=== PATIENT | male | born 1935 | race Caucasian/White ===

== ENCOUNTER 2016-09-23 23:10 | Inpatient (IN) | payer MEDICARE, OTHER ==
[~2016-09-23] VITALS: Ht 172.7 cm; Wt 70.5 kg
[2016-09-23] MEDS ORDERED: SOD CHLORIDE 0.9% 500 ML IV STA (23:15)
[2016-09-24] VITALS (52 sets, daily range): BP systolic 77–100; BP diastolic 42–51; PULSE 92–105; RESP 16–30; TEMP 96.3; Ht 172.7 cm; Wt 70.5 kg
[2016-09-24 00:27] LABS: ADD SCAN DIFF NO
[2016-09-24] MEDS ORDERED: SODIUM CHLORIDE 0.9% 1L BAG IV* STA (00:28)
[2016-09-24 00:30] LABS: ABNORMAL IP MESSAGE 1; HEMATOCRIT 35.1 % (42.0-52.0); MEAN CORPUSCULAR HEMOGLOBIN 21.9 pg (29.0-33.0); MEAN CORPUSCULAR HGB CONC 25.6 g/dl (32.0-37.0); MEAN CORPUSCULAR VOLUME 85.4 fl (82.0-101.0); MEAN PLATELET VOLUME 13.6 fl (7.4-10.4); PLATELET COUNT 554 10^3/UL (140-415); RED BLOOD COUNT 4.11 10^6/ul (4.70-6.10); RED CELL DISTRIBUTION WIDTH 19.9 % (11.5-14.5); WHITE BLOOD COUNT 40.6 10^3/ul (4.8-10.8)
[2016-09-24 00:41] LABS: INR 1.62; PROTIME 19.4 Sec (12.2-14.2); PT RATIO 1.5
[2016-09-24 00:42] LABS: ALBUMIN 3.1 g/dl (3.3-4.9); PARTIAL THROMBOPLASTIN TIME 39.8 Sec (25.0-35.0)
[2016-09-24 00:43] LABS: POTASSIUM 4.2 mmol/L (3.5-5.1)
[2016-09-24 00:45] LABS: ALBUMIN/GLOBULIN RATIO 0.96; CREATININE 2.91 mg/dl (0.61-1.24); TOTAL PROTEIN 6.3 g/dl (6.1-8.1)
[2016-09-24 00:57] LABS: TROPONIN-I 0.064 ng/ml (0.00-0.12)
--- NOTE | 2016-09-24 01:02 | RADRPT ---
PROCEDURE: Chest. CLINICAL INDICATION: Chest pain. TECHNIQUE: Single frontal view of the chest was obtained. COMPARISON: None. FINDINGS: The patient is status post tracheostomy. The cardiac silhouette is within normal limits. The aorti c arch is calcified. There are hazy and patchy opacities bilaterally. There are moderate left and small right-sided pleural effusions with underlying atelectasis. There is no pneumothorax. IMPRESSION: Bilateral hazy and patchy opacities could represent pulmonary edema and/or multifocal pneumonia. Moderate left and small right-sided pleural effusions with underlying atelectasis. Aortic atherosclerosis. .Leon Tadeo MD, MD Date Time Electronically viewed and signed by .eLon Tadeo MD, MD on 09/24/2016 01:01 .T/
[2016-09-24] MEDS ORDERED: ONDANSETRON 4 MG INJ IV STA (01:18)
[2016-09-24] MEDS ORDERED: VANCOMYCIN 1 GM (PMX) 250 ML IVPB STA (01:25)
[2016-09-24] MEDS ORDERED: PIPER-TAZO 3.375 GM IV (PMX) 100 ML IVPB STA (01:25)
[2016-09-24 01:39] LABS: EOSINOPHILS # 0.8 10^3/ul (0.0-0.5); LYMPHOCYTES # 2.8 10^3/ul (0.8-2.9); MONOCYTE # 0.4 10^3/ul (0.3-0.9); NEUTROPHIL # 36.5 10^3/ul (1.6-7.5)
[2016-09-24] MEDS ORDERED: NORepinephrine 8MG/250 ML (PMX 250 ML IV STA (02:12)
--- NOTE | 2016-09-24 02:17 | ERA ---
ER Documentation Chief Complaint Date/Time DATE: 09/24/16 TIME: 02:14 Chief Complaint BIBA RA81,low BP 86/40,los O2 sat on vent 86% HPI This is a 81-year-old male brought in from longterm facility by rescue [facility] for low blood pressure. Found to be 60s over 40s with low O2 sat nonvented 86%. Patient is unable to provide any relevant history secondary to baseline medical condition. History is per EMS run sheet long term transfer sheet. ROS All systems reviewed and are negative except as per history of present illness. Allergies Allergies: Coded Allergies: No Known Allergy (Unverified , 09/23/16) PMhx/Soc Anesthesia Reaction: No Hx Neurological Disorder: No Hx Respiratory Disorders: Yes (RES FAILURE, TRACH TO VENT,) Hx Cardiac Disorders: Yes (HTN, AFIB) Hx Miscellaneous Medical Probl: Yes (KIDNEY FAILURE, HYPOTHYROID, ANEMIA, SPESIS, MULTIPLE PRESSURE ULCERS, PEG ) Hx Alcohol Use: No Hx Substance Use: No Hx Tobacco Use: No Smoking Status: Never smoker Physical Exam Vitals Vital Signs Date Time Temp Pulse Resp B/P Pulse Ox O2 Delivery O2 Flow Rate FiO2 09/23/16 23:18 98.6 96 24 68/37 98 Physical Exam Const: [] Head: Atraumatic Eyes: Normal Conjunctiva ENT: Normal External Ears, Nose and Mouth. Neck: Full range of motion..~ No meningismus. Resp: Clear to auscultation bilaterally Cardio: Regular rate and rhythm, no murmurs Abd: Soft, non tender, non distended. Normal bowel sounds Skin: No petechiae or rashes Back: No midline or flank tenderness Ext: No cyanosis, or edema Neur: Awake and alert Psych: Normal Mood and Affect Result Diagram: 09/23/16 2355 09/23/16 2355 Results 24 hrs Laboratory Tests Test 09/23/16 23:55 Activated Partial Thromboplast Time 39.8Sec Alanine Aminotransferase (ALT/SGPT) 54IU/L Albumin 3.1g/dl Albumin/Globulin Ratio 0.96 Alkaline Phosphatase 142IU/L Anion Gap 24 Aspartate Amino Transf (AST/SGOT) 112IU/L B-Type Natriuretic Peptide 7840PG/ML Blood Urea Nitrogen 160mg/dl Calcium Level 9.0mg/dl Carbon Dioxide Level 40mmol/L Chloride Level 105mmol/L Creatinine 2.91mg/dl Differential Comment MANUAL DIFF Direct Bilirubin mg/dl Eosinophils # 0.810^3/ul Eosinophils % 2.0% Globulin 3.20g/dl Glucose Level 104mg/dl Hematocrit 35.1% Hemoglobin 9.0g/dl INR International Normalized Ratio 1.62 Indirect Bilirubin mg/dl Lactic Acid Level 8.7mmol/L Lymphocytes # 2.810^3/ul Lymphocytes % 7.0% Mean Corpuscular Hemoglobin 21.9pg Mean Corpuscular Hemoglobin Concent 25.6g/dl Mean Corpuscular Volume 85.4fl Mean Platelet Volume 13.6fl Monocytes # 0.410^3/ul Monocytes % 1.0% Neutrophils # 36.510^3/ul Neutrophils % 90.0% Platelet Count 13273^3/UL Potassium Level 4.2mmol/L Prothrombin Time 19.4Sec Prothrombin Time Ratio 1.5 Red Blood Count 4.1110^6/ul Red Cell Distribution Width 19.9% Sodium Level 165mmol/L Total Bilirubin mg/dl Total Protein 6.3g/dl Troponin I 0.064ng/ml White Blood Count 40.610^3/ul Current Medications Medications (Trade) Dose Ordered Sig/Vandana Route PRN Reason Start Time Stop Time Status Last Admin Dose Admin Sodium Chloride (NS) 500 ml @ 500 mls/hr Q1H STAT IV 09/23/16 23:15 09/24/16 00:14 DC 09/23/16 23:57 Sodium Chloride (NS) 2,180 ml BOLUS OVER 2 HOURS STAT IV* 09/24/16 00:28 09/24/16 00:29 DC 09/24/16 00:51 Ondansetron HCl 4 mg 4 mg ONCE STAT IV 09/24/16 01:18 09/24/16 01:19 DC 09/24/16 01:31 Vancomycin HCl 250 ml @ 125 mls/hr ONCE STAT IVPB 09/24/16 01:25 09/24/16 03:24 Piperacillin Sod/ Tazobactam Sod (Zosyn 3.375gm/ 100 ml (Pmx)) 100 ml @ 200 mls/hr ONCE STAT IVPB 09/24/16 01:25 09/24/16 01:54 DC 09/24/16 01:37 Procedures/MDM EKG: Rate/Rhythm: [Normal Sinus Rhythm] QRS, ST, T-waves: [No changes consistent w/ acute ischemia] Impression: [No evidence of ischemia or arrhythmia] Chest X-ray 1V Interpreted by me: Soft Tissue: No acute abnormalities Bones: No acute abnormalities Mediastinum/Cardiac Silhouette/Lungs: Multilobar pneumonia Patient's infectious symptoms have not stabilized and the patient is at risk of rapid decompensation. The patient will be admitted for careful hydration, antibiotic therapy, and infectious source control. Severe Sepsis Assessment: Infectious Source: Pneumonia End organ damage indicated by: [Lactate > 2.0 mmol/L Hypotension( SBP < 90 or >40 mmHG drop or MAP < 65) Acute Resp Failure (sat < 92% w/o oxygen) Severe Sepsis Managment: Blood Cultures X 2 before broad spectrum antibiotics initiated within 3 hours of recognition. 30 ml/kg NS bolus Completed Initial Lactate: 8.9 Repeat Lactate pending Critical Care: Time: 57 minutes Treatments/Evaluations: Emergent fluid management, while maintaining close respiratory support. Immediate broad spectrum antibiotic therapy. Simultaneous assessment for possible sources in order to direct therapy. Consideration for invasive and chemical support to prevent respiratory or cardiac collapse. Septic Shock Assessment (1 hour post 30 ml/kg fluid bolus): Hypotension (SBP < 90 or 40 mmHg drop, MAP < 65): Yes Lactic acid > 4.0 yes Perfusion Reassessment for Septic Shock: Patient on Levophed Temp 98.7, Pulse 99, RR 18, BP 104/76 Heart Exam: [Tachycardic] Lung Exam: [No Crackles] Capillary Refill: [Delayed] Peripheral Pulses: [Radially present] Skin: [Mottled, pale] Hypotensive Treatment (not required for isolated lactic acid elevation): Comfort Care: No Central LIne: Left subclavian Vasopressor started: [norepinephrine] Accepting Care Team: Current data and ongoing care discussed. Time: 2:15 AM Primary Provider: Anjum Consulting: Per Dr. Valero Outstanding Data: none Central Line Placement by me: Patient consented, sterilely draped, full prep, gown, glove, mask, time out performed. Anesthesia: 1% lidocaine locally Location: Left subclavian Device: Multiple lumen Technique: Seldinger technique. Secured with suture. Results: Venous return from all ports with easy saline flush. No complications. Guide wire retrieved and disposed of. [Chest X-ray 1V Interpreted by me: Central line in SVC, Normal soft tissue, No evidence of pneumothorax.] Departure Diagnosis: Primary Impression: Hypotension Qualified Code: I95.89 - Other specified hypotension Additional Impressions: Septic shock Severe sepsis Pneumonia Qualified Code: J18.9 - Pneumonia of both lungs due to infectious organism, unspecified part of lung Lactic acidosis Acute hypernatremia Dehydration Condition: Critical MICHAEL FANG Sep 24, 2016 02:17
--- NOTE | 2016-09-24 02:22 | RADRPT ---
PROCEDURE: Chest. CLINICAL INDICATION: Chest pain. TECHNIQUE: Single frontal view of the chest was obtained. COMPARISON: 09/24/2016. FINDINGS: There is a left subclavian central venous catheter extending to the SVC. The patient is status post tracheostomy. The cardiac silhouette is within normal limits. The aortic arch is calcified. There a re hazy and patchy opacities bilaterally. There are moderate left and small right-sided pleural effu sions with underlying atelectasis. There is no pneumothorax. IMPRESSION: Left subclavian central venous catheter in place. Bilateral hazy and patchy opacities could represent pulmonary edema and/or multifocal pneumonia, unc hanged. Moderate left and small right-sided pleural effusions with underlying atelectasis, unchanged. Aortic atherosclerosis. .Leon Tadeo MD, Date Time Electronically viewed and signed by .Leon Tadeo MD, on 09/24/2016 02:22 .T/
[2016-09-24] MEDS ORDERED: SOD CHLORIDE 0.9% 1,000 ML IV SCH (02:59)
[2016-09-24] MEDS ORDERED: SOD CHLORIDE 0.9% 500 ML IV PRN (02:59)
[2016-09-24] MEDS ORDERED: NORepinephrine 8MG/250 ML (PMX 250 ML IV SCH (03:00)
[2016-09-24] MEDS ORDERED: ALBUTEROL HFA 8 GM INHALER INH PRN (03:00)
[2016-09-24] MEDS ORDERED: METOCLOPRAMIDE 10 MG INJ IV PRN (03:00)
[2016-09-24] MEDS ORDERED: ACETAMINOPHEN 650 MG SUPP PR PRN (03:00)
--- NOTE | 2016-09-24 03:00 | HP ---
Date/Time of Note Date/Time of Note DATE: 09/24/16 TIME: 02:59 Assessment/Plan VTE Prophylaxis VTE Prophylaxis Intervention: anti-embolic stocking Lines/Catheters IV Catheter Type (from Nrs): Saline Lock Assessment/Plan Assessment/Plan 1) Severe Sepsis with Lactic Acidosis (Lactic Acid = 8.9)and Leukocytosis ( WBCs = 40), likely due to Pneumonia with Septic Shock as illustrated by his Hypotension (BP = 60/40) - Admit to ICU - Central Line Placed in ER - Levophed Drip started in ER - Blood and Urine Cultures pending - ABX started in ER - CONSULT: Dr. See - notified via text - CBC in AM 2) Hypernatremia, Na+ = 165 - May need to monitor CVP for best fluid and electrolyte management - 1/2 NS for gentle IV hydration - Strict Is and Os. Cee Catheter in Place. - BNP in AM 3) Dehydration, BUN = 160 - See 2) 4) Chronic Respiratory Failure, Ventilator Dependent via Tracheostomy - Full Code as there is no Family or Advanced Directives 5) Elevated BNP (7840) with mild LE edema and CXR possibly showing Pulmonary Edema - Repeat BNP in AM, may need to be diruresed, carefully/difficult due to hypotension 6) Chronic Kidney Disease (Cr = 2.91) - Monitor. May improve with hydration and treatment of sepsis HPI/ROS Admit Date/Time Admit Date/Time 09/24/16 0259 Hx of Present Illness Chief Complaint BIBA RA81,low BP 86/40,los O2 sat on vent 86% HPI: History as per ER Physician as there is no family or other source of information. This is a 81-year-old male brought in from nursing home facility by [facility] for low blood pressure. Found to be 60s over 40s with low O2 sat nonvented 86%. Patient is unable to provide any relevant history secondary to baseline medical condition. History is per EMS run sheet long-term transfer sheet. ROS Subjective hx not possible: pt non-verbal (Unable to obtain any ROS other than the information provided in the brief HPI.) PMH/Family/Social Past Medical History RESPIRATORY FAILURE, VENTILATOR DEPENDENT, HTN, ATRIAL FIBRILLATION, KIDNEY FAILURE, HYPOTHYROIDISM, ANEMIA, SPESIS, MULTIPLE PRESSURE ULCERS, GERD, Encephalopathy, Calculus of Kidney, Unspecified Sequela of Unspecified Cerebrovascular Disease, Pneumonitis, NSTEMI, ASHD, Hyperlipidemia, Non- Rheumatic Mitral Valve Insufficiency Past Surgical History TRACHEOSTOMY to Ventilator; PEG Tube Family History Significant Family History: other (Unknown) Social History Smoking Status: Never smoker Exam/Review of Systems Vital Signs Vitals Vital Signs Date Time Temp Pulse Resp B/P Pulse Ox O2 Delivery O2 Flow Rate FiO2 09/23/16 23:18 98.6 96 24 68/37 98 Exam Constitutional: alert, frail, non-verbal, other (on ventilator via trach) Psych: other (not able to evaluate) Head: atraumatic, normocephalic Eyes: nl sclera, other (not able to cooperate with exam) ENMT: nl external ears & nose, other (patient would not open his mouth with verbal and visual clues) Neck: non-tender (patient did not wince with exam. ), supple (no masses appreciated) Respiratory: diminished breath sounds (and coarse breath sounds throughout, fine crackles in the bases, left more than right) Gastrointestinal: nl liver, spleen, non-tender, soft Extremities: edema (bilateral pedal edema, +1 to lower 1/3 legs bilaterally), other (contracted) Neurological: other (unable to assess.) Skin: other (pale, decreased turgor. Warm, dry. No visible rashes, but I did not turn patient over. (In records from the SNF, multiple pressure ulcers were documented on his admit there on 07/23/16: deep sacral and bilateral buttocks, bilateral hips, 1 ankle and 1 heel) Lymph: nl lymph nodes (Cervical, Axillary, Inguinal) Labs Result Diagram: 09/23/16 4118 09/23/16 2356 Medications Medications Current Medications Norepinephrine/ Dextrose (Levophed/D5W) 500 ml @ 1.87 mls/hr TITRATE IV Last administered on 09/24/16t 02:29; Admin Dose 1.87 MLS/HR; Start 09/24/16 at 02:30 Medications (Trade) Dose Ordered Sig/Vandana Route PRN Reason Start Time Stop Time Status Last Admin Dose Admin Sodium Chloride (NS) 500 ml @ 500 mls/hr Q1H STAT IV 09/23/16 23:15 09/24/16 00:14 DC 09/23/16 23:57 Sodium Chloride (NS) 2,180 ml BOLUS OVER 2 HOURS STAT IV* 09/24/16 00:28 09/24/16 00:29 DC 09/24/16 00:51 Ondansetron HCl 4 mg 4 mg ONCE STAT IV 09/24/16 01:18 09/24/16 01:19 DC 09/24/16 01:31 Vancomycin HCl 250 ml @ 125 mls/hr ONCE STAT IVPB 09/24/16 01:25 09/24/16 03:24 Piperacillin Sod/ Tazobactam Sod (Zosyn 3.375gm/ 100 ml (Pmx)) 100 ml @ 200 mls/hr ONCE STAT IVPB 09/24/16 01:25 09/24/16 01:54 DC 09/24/16 01:37 Procedures Procedures Laboratory Tests Test 09/23/16 23:55 Activated Partial Thromboplast Time 39.8Sec Alanine Aminotransferase (ALT/SGPT) 54IU/L Albumin 3.1g/dl Albumin/Globulin Ratio 0.96 Alkaline Phosphatase 142IU/L Anion Gap 24 Aspartate Amino Transf (AST/SGOT) 112IU/L B-Type Natriuretic Peptide 7840PG/ML Blood Urea Nitrogen 160mg/dl Calcium Level 9.0mg/dl Carbon Dioxide Level 40mmol/L Chloride Level 105mmol/L Creatinine 2.91mg/dl Differential Comment MANUAL DIFF Direct Bilirubin mg/dl Eosinophils # 0.810^3/ul Eosinophils % 2.0% Globulin 3.20g/dl Glucose Level 104mg/dl Hematocrit 35.1% Hemoglobin 9.0g/dl INR International Normalized Ratio 1.62 Indirect Bilirubin mg/dl Lactic Acid Level 8.7mmol/L Lymphocytes # 2.810^3/ul Lymphocytes % 7.0% Mean Corpuscular Hemoglobin 21.9pg Mean Corpuscular Hemoglobin Concent 25.6g/dl Mean Corpuscular Volume 85.4fl Mean Platelet Volume 13.6fl Monocytes # 0.410^3/ul Monocytes % 1.0% Neutrophils # 36.510^3/ul Neutrophils % 90.0% Platelet Count 84081^3/UL Potassium Level 4.2mmol/L Prothrombin Time 19.4Sec Prothrombin Time Ratio 1.5 Red Blood Count 4.1110^6/ul Red Cell Distribution Width 19.9% Sodium Level 165mmol/L Total Bilirubin mg/dl Total Protein 6.3g/dl Troponin I 0.064ng/ml White Blood Count 40.610^3/ul EKG: (Interpreted by ER Physician) Rate/Rhythm: [Normal Sinus Rhythm] QRS, ST, T-waves: [No changes consistent w/ acute ischemia] Impression: [No evidence of ischemia or arrhythmia] RADIOLOGY: PROCEDURE: Chest. CLINICAL INDICATION: Chest pain. TECHNIQUE: Single frontal view of the chest was obtained. COMPARISON: None. FINDINGS: The patient is status post tracheostomy. The cardiac silhouette is within normal limits. The aortic arch is calcified. There are hazy and patchy opacities bilaterally. There are moderate left and small right-sided pleural effusions with underlying atelectasis. There is no pneumothorax. IMPRESSION: Bilateral hazy and patchy opacities could represent pulmonary edema and/or multifocal pneumonia. Moderate left and small right-sided pleural effusions with underlying atelectasis. Aortic atherosclerosis. FELIX BLAKE DO Sep 24, 2016 02:59 atelectasis. Aortic atherosclerosis. FELIX BLAKE DO Sep 24, 2016 02:59
[2016-09-24 05:38] LABS: ADD SCAN DIFF NO
[2016-09-24 05:51] LABS: POTASSIUM 3.6 mmol/L (3.5-5.1)
[2016-09-24 05:54] LABS: CREATININE 2.25 mg/dl (0.61-1.24)
[2016-09-24 06:02] LABS: CALCIUM 7.9 mg/dl (8.4-10.2)
[2016-09-24 06:07] LABS: ABNORMAL IP MESSAGE 1; BASOPHIL # 0.1 10^3/ul (0.0-0.1); BASOPHILS % 0.3 % (0.0-2.0); EOSINOPHILS % 0.1 % (0.0-7.0); HEMATOCRIT 32.3 % (42.0-52.0); HEMOGLOBIN 8.5 g/dl (14.0-18.0); LYMPHOCYTES # 1.4 10^3/ul (0.8-2.9); LYMPHOCYTES % 2.7 % (15.0-51.0); MEAN CORPUSCULAR HEMOGLOBIN 22.1 pg (29.0-33.0); MEAN CORPUSCULAR HGB CONC 26.3 g/dl (32.0-37.0); MEAN CORPUSCULAR VOLUME 83.9 fl (82.0-101.0); MEAN PLATELET VOLUME 13.2 fl (7.4-10.4); MONOCYTE # 0.9 10^3/ul (0.3-0.9); MONOCYTES % 1.6 % (0.0-11.0); NEUTROPHIL # 48.6 10^3/ul (1.6-7.5); NUCLEATED RED BLOOD CELLS # 0.1 10^3/ul (0.0-0.0); NUCLEATED RED BLOOD CELLS% 0.1 /100WBC (0.0-0.0); PLATELET COUNT 616 10^3/UL (140-415); RED BLOOD COUNT 3.85 10^6/ul (4.70-6.10); RED CELL DISTRIBUTION WIDTH 19.7 % (11.5-14.5); WHITE BLOOD COUNT 53.1 10^3/ul (4.8-10.8)
[2016-09-24 06:16] LABS: NEUTROPHILS % 91.5 % (39.0-77.0)
[2016-09-24 07:04] LABS: ADD UMIC YES; URINE BILIRUBIN (Dip) 1+ (NEGATIVE); URINE BLOOD (Dip) 3+ (NEGATIVE); URINE COLOR YELLOW (YELLOW); URINE GLUCOSE (Dip) NEGATIVE (NEGATIVE); URINE KETONES (Dip) NEGATIVE (NEGATIVE); URINE LEUKOCYTE ESTERASE (Dip) 2+ (NEGATIVE); URINE NITRITE (Dip) NEGATIVE (NEGATIVE); URINE TOTAL PROTEIN (Dip) 2+ (NEGATIVE); URINE UROBILINOGEN (Dip) 0.2 E.U./dL (0.1-1.0)
[2016-09-24] MEDS: IPRATROPIUM (HFA) 12.9 GM INHALER INH SCH ×5 (07:15→21:39)
[2016-09-24] MEDS: ALBUTEROL HFA 8 GM INHALER INH SCH ×5 (07:15→21:39)
[2016-09-24] MEDS ORDERED: LACTINEX GTB (07:24)
[2016-09-24] MEDS ORDERED: ALBU2.5V3 NEB ×2 (07:25)
[2016-09-24] MEDS ORDERED: AMIO200T2 GTB (07:25)
[2016-09-24] MEDS ORDERED: LORA-441 GTB (07:26)
[2016-09-24] MEDS ORDERED: ATOR20TA38 GTB (07:27)
[2016-09-24 07:28] LABS: ICTOTEST NEGATIVE (NEGATIVE)
[2016-09-24] MEDS ORDERED: BETH50TA GTB (07:28)
[2016-09-24 07:29] LABS: BACTERIA,URINE MANY; MUCUS,URINE FEW
[2016-09-24] MEDS ORDERED: CHLO473M4 MM (07:29)
[2016-09-24] MEDS ORDERED: DOCU-144 GTB (07:30)
[2016-09-24] MEDS ORDERED: BISA10SU55 RC (07:31)
[2016-09-24] MEDS ORDERED: FINA5TAB4 GTB (07:35)
[2016-09-24] MEDS ORDERED: EPOE3000 SC (07:35)
[2016-09-24] MEDS ORDERED: FLUD0.1T10 GTB (07:36)
[2016-09-24] MEDS ORDERED: FURO40TA4 GTB (07:36)
[2016-09-24] MEDS ORDERED: LEVO25TA50 GTB (07:37)
[2016-09-24] MEDS ORDERED: ENOX40DI14 SC (07:37)
[2016-09-24] MEDS ORDERED: METO25TA4 GTB (07:38)
[2016-09-24] MEDS ORDERED: MAGN400O4 GTB (07:39)
[2016-09-24] MEDS ORDERED: MULTI GTB (07:39)
[2016-09-24] MEDS ORDERED: HYDR-906 GTB ×2 (07:40→07:55)
[2016-09-24] MEDS ORDERED: ZINC220C5 GTB (07:41)
[2016-09-24] MEDS ORDERED: CHOL100062 GTB (07:43)
[2016-09-24] MEDS ORDERED: ASCO500C7 GTB (07:44)
[2016-09-24] MEDS ORDERED: ACET-2047 GTB ×2 (07:46→07:47)
[2016-09-24] MEDS ORDERED: ACET-141 G-TUBE (07:46)
[2016-09-24] MEDS ORDERED: ACET325T45 GTB (07:46)
[2016-09-24] MEDS ORDERED: TERA10CA42 GTB (07:48)
[2016-09-24] MEDS ORDERED: SENN-53 GTB (07:49)
[2016-09-24] MEDS ORDERED: SULF500T5 GTB (07:49)
[2016-09-24] MEDS ORDERED: PANT40TA3 PO (07:52)
[2016-09-24] MEDS ORDERED: CALC500T91 GTB (07:53)
[2016-09-24 08:39] LABS: AADO2 Arterial 173.6 mmHg (7.0-24.0); Allen Test ACCEPTAB; Arterial Base Excess 8.4 mmol/L (-3.0-3); Arterial COHb 0.3 % (0.0-3.0); Arterial Fraction of Oxyhgb 97.5 % (93.0-99.0); Arterial HCO3 32.5 mmol/L (22.0-26.0); Arterial MetHb 0.2 % (0.0-1.5); Arterial Total Hemglobin 9.8 g/dl (12.0-18.0); MODE VENT - AC
[2016-09-24] MEDS: ARTIFICIAL TEARS 15 ML OPH BOTH EYES SCH ×3 (08:44→21:18)
[2016-09-24] MEDS ORDERED: FAMOTIDINE 20 MG TAB PO SCH ×2 (09:00)
--- NOTE | 2016-09-24 10:44 | CONS ---
Date/Time of Note Date/Time of Note DATE: 09/24/16 TIME: 10:39 Assessment/Plan Assessment/Plan Additional Assessment/Plan Chest x-ray was reviewed from yesterday which is showing a right midlung infiltrates. Next Ventilator settings; AC of 16, tidal volume 500, PEEP of 5, 60% FiO2. Assessment recommendations; 1. Patient admitted for severe sepsis due to UTI as well as pneumonia. Severe leukocytosis. 2. Severe hypernatremia. 3. Acute renal insufficiency likely from prerenal azotemia. 4. Severe hypotension, patient on high-dose Levophed. 5. History of chronic respiratory failure. 6. Poor mental status due to CVA. Next Continue current supportive care. Current antibiotics. Add free water via G- tube. Consultation Date/Type/Reason Admit Date/Time Date of Consultation: Sep 24, 2016 Type of Consultation: Pulmonary/critical care Reason for Consultation Pulmonary/critical care consultation obtained for evaluation of pneumonia, sepsis, chronic respiratory failure. Next History presenting; patient is a 81-year-old white male who was sent over to the hospital from residential with complaints of being hypotensive. Upon evaluation here patient was diagnosed with severe sepsis due to UTI as well as pneumonia. The patient because of history of severe anoxic brain injury is unable to give any history whatsoever. History was obtained from medical records. By the time I saw the patient and ER the patient is on ventilator via tracheostomy he is awake but unresponsive. Next Past medical history; 1. Chronic respiratory failure, ventilator dependent. 2. History of CVA. 3. Status post tracheostomy and G-tube placement. Medications; were reviewed. Next Allergies; are none. Social history; patient never smoked. No history of alcohol or drug abuse. Family history, occupational history is not available. Review of systems; unable to be obtained because of poor mental status. General exam; elderly male, on ventilator via tracheostomy currently in no distress. Awake. Social History Smoking Status: Never smoker Exam/Review of Systems Vital Signs Vitals Vital Signs Date Time Temp Pulse Resp B/P Pulse Ox O2 Delivery O2 Flow Rate FiO2 09/24/16 10:30 96.3 99 16 85/49 100 Mechanical Ventilator T Tube Trach Collar 09/24/16 09:36 60 Exam HEENT exam is; supple neck, no JVD. No lymphadenopathy. Midline trachea. Patient has few missing teeth. No thyromegaly. No neck bruits. Pupils are midsize bilaterally. Chest examination; diminished but clear breath sounds bilaterally. S1-S2 audible, no murmurs. Regular rhythm. Abdomen exam is; soft, G-tube in place. No organomegaly. Bowel sounds audible. Extremity examination; no peripheral edema. DIVEMASTER examination a micro patient is awake but does not follow any commands. Unable to move any extremities. Results Result Diagram: 09/24/1625 09/24/1625 Results 24 hrs Laboratory Tests Test 09/23/16 23:55 09/24/16 02:10 09/24/16 05:25 09/24/16 06:08 Activated Partial Thromboplast Time 39.8 H Alanine Aminotransferase (ALT/SGPT) 54 Albumin 3.1 L Albumin/Globulin Ratio 0.96 Alkaline Phosphatase 142 H Anion Gap 24 H 22 H Aspartate Amino Transf (AST/SGOT) 112 H B-Type Natriuretic Peptide 7840 H Blood Urea Nitrogen 160 H 149 H Calcium Level 9.0 7.9 L Carbon Dioxide Level 40 H 35 H Chloride Level 105 111 H Creatinine 2.91 H 2.25 H Differential Comment MANUAL DIFF Direct Bilirubin Eosinophils # 0.8 H 0.0 Eosinophils % 2.0 0.1 Globulin 3.20 Glucose Level 104 161 Hematocrit 35.1 L 32.3 L Hemoglobin 9.0 L 8.5 L INR International Normalized Ratio 1.62 Indirect Bilirubin Lactic Acid Level 8.7 *H 4.8 *H 3.9 H Lymphocytes # 2.8 1.4 Lymphocytes % 7.0 L 2.7 L Mean Corpuscular Hemoglobin 21.9 L 22.1 L Mean Corpuscular Hemoglobin Concent 25.6 L 26.3 L Mean Corpuscular Volume 85.4 83.9 Mean Platelet Volume 13.6 H 13.2 H Monocytes # 0.4 0.9 Monocytes % 1.0 1.6 Neutrophils # 36.5 H 48.6 H Neutrophils % 90.0 H 91.5 H Platelet Count 554 H 616 H Potassium Level 4.2 3.6 Prothrombin Time 19.4 H Prothrombin Time Ratio 1.5 Red Blood Count 4.11 L 3.85 L Red Cell Distribution Width 19.9 H 19.7 H Sodium Level 165 *H 164 *H Total Bilirubin Total Protein 6.3 Troponin I 0.064 White Blood Count 40.6 H 53.1 #H Basophils # 0.1 Basophils % 0.3 Lactate Dehydrogenase 949 H Nucleated Red Blood Cells # 0.1 H Nucleated Red Blood Cells % 0.1 H Urine Bacteria MANY Urine Bilirubin 1+ H Urine Clarity SLIGHTLY CLOUDY Urine Color YELLOW Urine Glucose NEGATIVE Urine Hemoglobin 3+ H Urine Ictotest NEGATIVE Urine Ketones NEGATIVE Urine Leukocyte Esterase 2+ H Urine Microscopic RBC 5-10 Urine Microscopic WBC >50 Urine Mucus FEW Urine Nitrite NEGATIVE Urine Specific Talmo 1.015 Urine Total Protein 2+ H Urine Urobilinogen 0.2 E.U./dL Urine pH 7.0 Test 09/24/16 08:28 Arterial Blood HCO3 32.5 H Arterial Blood Base Excess 8.4 H Arterial Blood Oxygen Saturation 98.0 Ki Test ACCEPTAB Arterial Blood Gas Puncture Site Right Radial Arterial Blood Carboxyhemoglobin 0.3 Arterial Blood Date Drawn 09/24/2016 8:22:41 AM Arterial Blood Methemoglobin 0.2 Arterial Blood pCO2 (Temp correct) 45.3 H Arterial Blood pH (Temp corrected) 7.477 H Arterial Blood pO2 (Temp corrected) 130.6 H Blood Gas A-a O2 Differential 173.6 H Blood Gas Actual Respiration Rate 21 Blood Gas Inspiratory Pressure 20.0 Blood Gas Low PEEP Setting 5.0 Blood Gas Modality VENT - AC Blood Gas Notified Time 09/24/2016 8:38:49 AM Blood Gas Notified Whom TIMMY MERLOS Blood Gas Respiration Rate 16.0 Blood Gas Specimen Source Blood arterial Blood Gas Temperature 38.0 Blood Gas Tidal Volume 512.0 FiO2 50.0 Oxyhemoglobin Percent 97.5 Total Hemoglobin 9.8 L Medications Medications Current Medications Norepinephrine 16 mg/Dextrose 500 ml @ 1.87 mls/hr TITRATE IV Last administered on 09/24/16t 02:29; Admin Dose 1.87 MLS/HR; Start 09/24/16 at 02:30 Sodium Chloride (NS) 500 ml @ 0 mls/hr Q0M PRN IV CVP LESS THAN 8; Start at 02:59; Stop 09/24/16 at 12:00 Metoclopramide HCl (Reglan) 10 mg Q6H PRN IV NAUSEA AND/OR VOMITING; Start at 03:00 Acetaminophen (Tylenol Supp) 650 mg Q4H PRN RI PAIN LEVEL 1-3 OR FEVER; Start 09/24/16 at 03:00 Famotidine (Pepcid) 20 mg Q12 PO Last administered on 09/24/16 09:00; Admin Dose 20 MG; Start 09/24/16 at 09:00 Eye Lubricant (Artificial Tears Oph) 1 drop TID BOTH EYES Last administered on 09/24/16 08:44; Admin Dose 1 DROP; Start 09/24/16 at 09:00 Famotidine 20 mg 20 mg DAILY PO ; Start 09/24/16 at 09:00 Norepinephrine/ Dextrose (Levophed/D5W) 500 ml @ 1.87 mls/hr TITRATE IV ; Start 09/24/16 at 04:00 MAIN SALTER Sep 24, 2016 10:44
[2016-09-24] MEDS ORDERED: DEXTROSE 5%-0.45% NACL 1,000 ML IV SCH (16:30)
[2016-09-24] MEDS ORDERED: VANCOMYCIN IV PER PHARMACY XX SCH (16:30)
[2016-09-24] MEDS ORDERED: ALBUTEROL 0.083% (NEB) 2.5 MG/3 ML AMP HHN SCH (17:00)
[2016-09-24] MEDS: VASOPRESSIN 60 UNIT in DEXTROSE 5% 57 ML IV SCH (17:22)
[2016-09-24] MEDS: PANTOPRAZOLE 40 MG INJ IV SCH (17:30)
[2016-09-24] MEDS: PIPER-TAZO 2.25 GM (PMX) 50 ML IVPB SCH (17:38)
[2016-09-24 17:51] LABS: TROPONIN-I 0.061 ng/ml (0.00-0.12)
[2016-09-24 17:52] LABS: CK-MB 6.26 ng/ml (0.0-2.4)
[2016-09-24] MEDS: COLLAGENASE 30 GM TUBE TOP SCH (20:30)
[2016-09-24] MEDS ORDERED: PHENYLephrine 40 MG in DEXTROSE 5% 496 ML IV SCH (21:00)
[2016-09-24] MEDS ORDERED: GLUCAGON 1 MG INJ IM PRN (21:00)
[2016-09-24] MEDS: SODIUM HYPOCHLORITE 0.125% 473 ML BTL IRR SCH (21:00)
[2016-09-24] MEDS ORDERED: GLUCOSE GEL 15 GRAM TUBE PO PRN ×2 (21:00)
[2016-09-24] MEDS ORDERED: GLUCOSE GEL 15 GRAM TUBE BUCCAL PRN (21:00)
[2016-09-24] MEDS ORDERED: DEXTROSE 50% 50 ML SYRINGE IV PRN ×2 (21:00)
[2016-09-24] MEDS ORDERED: DEXTROSE 5% 1,000 ML IV SCH (21:30)
[2016-09-24] MEDS: ACETAMINOPHEN 1000MG/100ML IV 100 ML IVPB PRN (22:00)
[2016-09-24] MEDS ORDERED: SODIUM CHLORIDE 0.45% 500 ML BAG IV* ONE (22:00)
[2016-09-24] MEDS: INSULIN ASPART [NOVOLOG] 3 ML PEN SC SCH (22:16)
[2016-09-24 23:33] LABS: PROTEIN URINE 74.9 mg/dl (0.0-9.9); PROTEIN/CREAT RATIO 1.09 RATIO
[2016-09-24 23:47] LABS: TROPONIN-I 0.074 ng/ml (0.00-0.12)
[2016-09-24 23:50] LABS: CK-MB 1.82 ng/ml (0.0-2.4)
[2016-09-25] VITALS (102 sets, daily range): BP systolic 81–119; BP diastolic 40–61; PULSE 77–97; RESP 14–28
[2016-09-25] MEDS: PIPER-TAZO 2.25 GM (PMX) 50 ML IVPB SCH ×4 (00:35→21:42)
[2016-09-25] MEDS ORDERED: SODIUM CHLORIDE 0.45% 500 ML BAG IV* ONE ×2 (01:00→09:00)
[2016-09-25] MEDS: DEXTROSE 5%-0.45% NACL 1,000 ML IV SCH ×4 (01:40→20:33)
[2016-09-25] MEDS: INSULIN ASPART [NOVOLOG] 3 ML PEN SC SCH ×6 (01:49→20:48)
[2016-09-25] MEDS: IPRATROPIUM (HFA) 12.9 GM INHALER INH SCH ×6 (01:50→21:25)
[2016-09-25] MEDS: ALBUTEROL HFA 8 GM INHALER INH SCH ×6 (01:50→21:25)
--- NOTE | 2016-09-25 03:29 | CONS ---
DATE OF ADMISSION: 09/24/2016 DATE OF CONSULTATION: 09/24/2016 REFERRING PHYSICIAN: Dr. No Valero/ TYPE OF CONSULTATION: Nephrology. REASON FOR CONSULTATION: Acute kidney injury, severe hyponatremia, altered mental status secondary to metabolic encephalopathy. HISTORY OF PRESENT ILLNESS: This is a 81-year-old male who has a past medical history of chronic respiratory failure, poor mental status due to the CVA, history of previous hypertension who presented with severe sepsis secondary to urinary tract infection as well as pneumonia. The patient had a severe leukocytosis and severe hyponatremia with a sodium up to 165. The patient also had a BUN of 160, creatinine of 2.9. Lactic acid was up to 8.7. The patient gets admitted to the ICU and has a very unpleasant course since the morning. The patient pulled out his G-tube a couple of times. There was attempt made to get a hold of family member and explain the patient's condition, but there is no family member available. The patient is on Levophed drip for possible sepsis and septic shock. Renal has been consulted for acute kidney injury and severe hyponatremia. REVIEW OF SYSTEMS: Unable to obtain since the patient is currently altered, lethargic, and confused. PAST MEDICAL HISTORY: Notable for 1. Hypertension. 2. History of chronic respiratory failure status post tracheostomy, on vent. 3. History of contracture. 4. Chronic pressure wound. 5. Dementia. PAST SURGICAL HISTORY: 1. History of tracheostomy. 2. History of G-tube placement. 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 Unable to obtain any other social history. FAMILY HISTORY: Not available. PHYSICAL EXAMINATION: VITAL SIGNS: Temperature 98.6, heart rate 102, respiration 19, blood pressure 87/46, saturation is 100% on mechanical ventilator. HEENT: Tracheostomy site is clear and connected to the ventilator. NECK: Supple, no JVD. LUNGS: Decreased breath sounds with bilateral coarse breath sounds. HEART: S1, S2, tachycardia, no murmur. ABDOMEN: Soft. G-tube in place. EXTREMITIES: Contracture extremities. SKIN: The patient has multiple chronic pressure ulcers. NEUROLOGICAL: Uncooperative for exam. LABORATORY DATA AND DIAGNOSTIC IMAGING: Sodium 165, potassium 4.2, chloride 105 , bicarbonate 40, BUN 160, creatinine 2.9, glucose 104. Lactic acid 87. Albumin 3.1. PT 19.4, PTT 39.8, INR 1.62. WBC 53.1, hemoglobin 8.5, platelet count 616. IMPRESSION: This is a 81-year-old male who has been admitted for sepsis secondary to pneumonia and UTI, noted to have acute kidney injury with a BUN of 160, creatinine 2.9, and sodium of 165 on admission. Renal has been consulted for: 1. Acute kidney injury versus acute kidney injury on chronic kidney disease. This is likely secondary to severe prerenal azotemia causing ischemic acute tubular necrosis. 2. Severe hyponatremia with a sodium of 165 due to the large volume of free water deficit, likely deficits up to 6 to 7 liters. 3. Contraction metabolic alkalosis with a bicarbonate of 40. 4. Severe sepsis with lactic acid of 8.7 secondary to urinary tract infection and pneumonia. 5. History of chronic respiratory failure, status post tracheostomy, on ventilator. 6. History of G-tube. 7. Poor mental status due to the previous cerebrovascular accident. 8. History of dementia. 9. History of hypertension. PLAN: 1. Thank you, Dr. Chang, for this consultation. I will switch the patient's IV fluids to D5W at 125 mL per hour. I will order the urine studies including a urine sodium, urine protein, urine creatinine, protein creatinine ratio, and urine eosinophils. 2. CK total, uric acid, and other workup has been ordered. 3. Renal ultrasounds to assess the kidney size and to rule out hydronephrosis. 4. IV antibiotics as per the primary care team. The patient is currently on a Levophed drip, and pulmonary has been following for his vent management. 5. The patient was seen in the ICU, and he will be followed up along with the primary care service. Nurse instructed to contact pt family member to discuss goals of care Total time spent in this patient's evaluation making assessment and plan, communicating with the nursing staff, and explaining the plan took more than 90 minutes. Dictated By: MAGGIE DINERO MD, KP/ELIZABETH Conf#: [id number] DID#: [id number] [id number]
[2016-09-25] MEDS: VASOPRESSIN 60 UNIT in DEXTROSE 5% 57 ML IV SCH ×2 (03:30→08:22)
[2016-09-25 04:38] LABS: ADD SCAN DIFF NO
[2016-09-25 04:40] LABS: POTASSIUM 3.4 mmol/L (3.5-5.1)
[2016-09-25 04:43] LABS: CREATININE 2.3 mg/dl (0.61-1.24)
[2016-09-25 04:44] LABS: CALCIUM 7.4 mg/dl (8.4-10.2)
[2016-09-25 04:53] LABS: ABNORMAL IP MESSAGE 1; BASOPHIL # 0.1 10^3/ul (0.0-0.1); BASOPHILS % 0.2 % (0.0-2.0); EOSINOPHILS # 0.1 10^3/ul (0.0-0.5); EOSINOPHILS % 0.2 % (0.0-7.0); HEMATOCRIT 27.2 % (42.0-52.0); HEMOGLOBIN 7.4 g/dl (14.0-18.0); LYMPHOCYTES # 1.7 10^3/ul (0.8-2.9); LYMPHOCYTES % 4.3 % (15.0-51.0); MEAN CORPUSCULAR HEMOGLOBIN 22.3 pg (29.0-33.0); MEAN CORPUSCULAR HGB CONC 27.2 g/dl (32.0-37.0); MEAN CORPUSCULAR VOLUME 81.9 fl (82.0-101.0); MEAN PLATELET VOLUME 12.4 fl (7.4-10.4); MONOCYTE # 1.1 10^3/ul (0.3-0.9); MONOCYTES % 2.8 % (0.0-11.0); NEUTROPHIL # 33.7 10^3/ul (1.6-7.5); NEUTROPHILS % 87.1 % (39.0-77.0); NUCLEATED RED BLOOD CELLS # 0.1 10^3/ul (0.0-0.0); NUCLEATED RED BLOOD CELLS% 0.2 /100WBC (0.0-0.0); PLATELET COUNT 709 10^3/UL (140-415); RED BLOOD COUNT 3.32 10^6/ul (4.70-6.10); RED CELL DISTRIBUTION WIDTH 19.3 % (11.5-14.5); WHITE BLOOD COUNT 38.8 10^3/ul (4.8-10.8)
[2016-09-25 05:07] LABS: ALBUMIN 2.1 g/dl (3.3-4.9)
[2016-09-25 05:09] LABS: ASPARTATE AMINO TRANSFERASE 87 IU/L (15-46); URIC ACID 13.3 mg/dl (3.1-7.9)
[2016-09-25 05:10] LABS: ALANINE AMINOTRANSFERASE 37 IU/L (13-69); ALKALINE PHOSPHATASE 131 IU/L (42-121); PHOSPHORUS 4.7 mg/dl (2.5-4.9); TOTAL PROTEIN 4.4 g/dl (6.1-8.1)
[2016-09-25 05:33] LABS: INR 1.43; PROTIME 17.5 Sec (12.2-14.2); PT RATIO 1.4
[2016-09-25 05:34] LABS: PARTIAL THROMBOPLASTIN TIME 47.7 Sec (25.0-35.0)
[2016-09-25] MEDS: PANTOPRAZOLE 40 MG INJ IV SCH ×2 (05:43→17:37)
[2016-09-25 08:01] LABS: CREATININE 2.14 mg/dl (0.61-1.24)
[2016-09-25 08:02] LABS: CALCIUM 7.2 mg/dl (8.4-10.2)
[2016-09-25] MEDS: SODIUM HYPOCHLORITE 0.125% 473 ML BTL IRR SCH ×2 (08:18→20:33)
[2016-09-25] MEDS: ARTIFICIAL TEARS 15 ML OPH BOTH EYES SCH ×3 (08:18→20:32)
--- NOTE | 2016-09-25 08:19 | RADRPT ---
PROCEDURE: Retroperitoneal ultrasound. CLINICAL INDICATION: Acute renal failure TECHNIQUE: Jeong scale and color doppler ultrasound images of the retroperitoneum, kidneys, urinary bladder COMPARISON: No prior studies are available for comparison. FINDINGS: Right kidney 11.5 cm in length. Right renal cortical thickness is preserved. Left kidney 11.6 cm in length. Left renal cortical thickness is preserved. Normal echogenicity. Moderate bilateral hydronephrosis. No renal calculi. 3.6 cm cyst is present within the right kidney. Bladder: Distended without focal lesions. IMPRESSION: Moderate bilateral hydronephrosis. RPTAT: AADD .Nishant Siu MD, MD Date Time Electronically viewed and signed by .Nishant Siu MD, MD on 09/25/2016 08:19 .B/
[2016-09-25] MEDS ORDERED: ALBUMIN HUMAN 25% 100 ML IV ONE (09:00)
[2016-09-25] MEDS ORDERED: FUROSEMIDE 20 MG INJ IV ONE (09:00)
--- NOTE | 2016-09-25 09:06 | CONS ---
Date/Time of Note Date/Time of Note DATE: 09/25/16 TIME: 09:01 Assessment/Plan Assessment/Plan Additional Assessment/Plan 1. Acute kidney injury versus acute kidney injury on chronic kidney disease. This is likely secondary to severe prerenal azotemia causing ischemic acute tubular necrosis. 2. Severe hyponatremia with a sodium of 165 due to the large volume of free water deficit, likely deficits up to 8-9 liters. 3. Contraction metabolic alkalosis with a bicarbonate of 40. 4. Septic shock with lactic acid of 8.7 secondary to urinary tract infection and pneumonia. on 3 pressors 5. History of chronic respiratory failure, status post tracheostomy, on ventilator. 6. History of G-tube. 7. Poor mental status due to the previous cerebrovascular accident. 8. History of dementia. 9. History of hypertension. PLAN: continue current IVF D51/2NS will give 1/2 NS 500 cc bolus, then Albumin followed by lasix 20mg IV x 1 BMP at 4 pm to follow up on chemistry pt is critically ill, currently on 3 pressors, Need to fnd out family member to discuss goals of care will continue to follow KCl 30mEQ IV x 1 dose now Total time spent int his patient follow up progress note, Updating Ancillary staff, Talked with SW to locate family member and communicating with Nursing Staff took more than 60 minutes Consultation Date/Type/Reason Admit Date/Time Sep 24, 2016 at 03:19 Initial Consult Date 09/24/16 Type of Consultation: NEPHROLOGY Reason for Consultation acute kidney injury, Hyperkalemia Referring Provider: ROULA DEL TORO 24 HR Interval Summary Free Text/Dictation IVF has been switched back and forth, Currently on D51/2NS, urine output marginally low , on ventilator , on 3 pressors Exam/Review of Systems Vital Signs Vitals Vital Signs Date Time Temp Pulse Resp B/P Pulse Ox O2 Delivery O2 Flow Rate FiO2 09/25/16 08:45 88 18 112/49 99 Mechanical Ventilator 09/25/16 08:15 98.7 09/25/16 07:28 30 Intake and Output 09/24/16 09/24/16 09/25/16 15:00 23:00 07:00 Intake Total 225.00 ml 2173.05 ml 2215.05 ml Output Total 750 ml 55 ml 90 ml Balance -525.00 ml 2118.05 ml 2125.05 ml Exam HEENT: Tracheostomy site is clear and connected to the ventilator. NECK: Supple, no JVD. LUNGS: Decreased breath sounds with bilateral coarse breath sounds. HEART: S1, S2, tachycardia, no murmur. ABDOMEN: Soft. G-tube in place. EXTREMITIES: Contracture extremities. SKIN: The patient has multiple chronic pressure ulcers. NEUROLOGICAL: Uncooperative for exam. Results Result Diagram: 09/25/16 0415 09/25/16 0415 Results 24 hrs Laboratory Tests Test 09/24/16 17:13 09/24/16 18:53 09/24/16 20:00 09/24/16 21:18 Creatine Kinase 451 H Creatine Kinase Index 1.4 Creatinine Kinase MB (Mass) 6.26 H Troponin I 0.061 Bedside Glucose 154 182 Urine Eosinophils % 0.0 Urine Protein/Creatinine Ratio 1.09 Urine Random Creatinine 68.12 Urine Random Sodium 28 L Urine Total Protein 74.9 H Test 09/24/16 22:15 09/24/16 23:15 09/25/16 01:47 09/25/16 04:15 Bedside Glucose 190 223 H Anion Gap 20 H 21 H Blood Urea Nitrogen 156 H 142 H Calcium Level 7.4 L 7.2 L Carbon Dioxide Level 28 30 Chloride Level 112 H 108 Creatine Kinase 308 H 261 H Creatine Kinase Index 0.6 Creatinine 2.30 H 2.14 H Creatinine Kinase MB (Mass) 1.82 Glucose Level 194 193 Magnesium Level 4.0 H 3.9 H Potassium Level 3.4 L 3.0 L Sodium Level 157 H 156 H Troponin I 0.074 Activated Partial Thromboplast Time 47.7 H Alanine Aminotransferase (ALT/SGPT) 37 Albumin 2.1 #L Alkaline Phosphatase 131 H Aspartate Amino Transf (AST/SGOT) 87 H Basophils # 0.1 Basophils % 0.2 Direct Bilirubin Eosinophils # 0.1 Eosinophils % 0.2 Free Thyroxine Index 1.89 Hematocrit 27.2 L Hemoglobin 7.4 L Hemoglobin A1c 5.2 INR International Normalized Ratio 1.43 Indirect Bilirubin Lactic Acid Level 3.3 H Lymphocytes # 1.7 Lymphocytes % 4.3 L Mean Corpuscular Hemoglobin 22.3 L Mean Corpuscular Hemoglobin Concent 27.2 L Mean Corpuscular Volume 81.9 L Mean Platelet Volume 12.4 H Monocytes # 1.1 H Monocytes % 2.8 Neutrophils # 33.7 H Neutrophils % 87.1 H Nucleated Red Blood Cells # 0.1 H Nucleated Red Blood Cells % 0.2 H Phosphorus Level 4.7 Platelet Count 709 H Prothrombin Time 17.5 H Prothrombin Time Ratio 1.4 Red Blood Count 3.32 L Red Cell Distribution Width 19.3 H Thyroid Stimulating Hormone (TSH) 3.230 Thyroxine (T4) 3.7 L Total Bilirubin Total Protein 4.4 #L Triiodothyronine (T3) Uptake 51.0 H Uric Acid 13.3 H White Blood Count 38.8 #H Test 09/25/16 05:50 Bedside Glucose 221 H Medications Medications Current Medications Metoclopramide HCl (Reglan) 10 mg Q6H PRN IV NAUSEA AND/OR VOMITING; Start at 03:00 Acetaminophen (Tylenol Supp) 650 mg Q4H PRN [place] PAIN LEVEL 1-3 OR FEVER; Start 09/24/16 at 03:00 Eye Lubricant 1 drop 1 drop TID BOTH EYES Last administered on 09/25/16 08:18 ; Admin Dose 1 DROP; Start 09/24/16 at 09:00 Norepinephrine 16 mg/Dextrose 500 ml @ 1.87 mls/hr TITRATE IV Last administered on 09/25/16 06:25; Admin Dose 56.25 MLS/HR; Start 09/24/16 at 04: 00 Vasopressin/ Dextrose (Vasostrict/D5W) 60 ml @ 1.2 mls/hr Q12H IV Last administered on 09/25/16 08:22; Admin Dose 2.4 MLS/HR; Start 09/24/16 at 15:30 Sodium Hypochlorite 1 applic 1 applic BID IRR Last administered on 09/25/16 08 :18; Admin Dose 1 APPLIC; Start 09/24/16 at 21:00 Piperacillin Sod/ Tazobactam Sod (Zosyn 2.25gm/ 50ml (Pmx)) 50 ml @ 100 mls/hr Q8 IVPB Last administered on 09/25/16 05:43; Admin Dose 100 MLS/HR; Start at 17:15 Pantoprazole 40 mg 40 mg BID@06,18 IV Last administered on 09/25/16 05:43; Admin Dose 40 MG; Start 09/24/16 at 18:00 Vancomycin HCl (Vancocin) 250 ml @ 125 mls/hr Q36H IVPB ; Start 09/25/16 at 10: 00 Collagenase (Santyl) 1 applic DAILY TOP ; Start 09/24/16 at 20:30 Insulin Aspart NOVOLOG *MILD* ALGORI... Q4 SC Last administered on 09/25/16 05 :54; Admin Dose 3 UNIT; Start 09/24/16 at 21:00 Phenylephrine HCl/ Dextrose (Eulogio-Syneph/D5W) 500 ml @ 75 mls/hr TITRATE IV Last administered on 09/24/16 22:04; Admin Dose 37.5 MLS/HR; Start 09/24/16 at 21:00 Miscellaneous Information 1 ea NOTE XX ; Start 09/24/16 at 21:00 Glucose (Glutose) 15 gm Q15M PRN PO DECREASED GLUCOSE; Start 09/24/16 at 21:00 Glucose (Glutose) 22.5 gm Q15M PRN PO DECREASED GLUCOSE; Start 09/24/16 at 21: 00 Dextrose (D50w Syringe) 25 ml Q15M PRN IV DECREASED GLUCOSE; Start 09/24/16 at 21:00 Dextrose (D50w Syringe) 50 ml Q15M PRN IV DECREASED GLUCOSE; Start 09/24/16 at 21:00 Glucagon (Glucagen) 1 mg Q15M PRN IM DECREASED GLUCOSE; Start 09/24/16 at 21:00 Glucose 15 gm 15 gm Q15M PRN BUCCAL DECREASED GLUCOSE; Start 09/24/16 at 21:00 Acetaminophen 100 ml @ 400 mls/hr Q6H PRN IVPB FEVER Last administered on 09/24 22:00; Admin Dose 400 MLS/HR; Start 09/24/16 at 22:00 Dextrose/Sodium Chloride (D5-1/2ns) 1,000 ml @ 150 mls/hr Q6H40M IV Last administered on 09/25/16 01:40; Admin Dose 150 MLS/HR; Start 09/25/16 at 01:00 MAGGIE DINERO MD Sep 25, 2016 09:06
--- NOTE | 2016-09-25 09:40 | PN ---
Date/Time of Note Date/Time of Note DATE: 09/25/16 TIME: 09:26 Assessment/Plan VTE Prophylaxis VTE Prophylaxis Intervention: SCD's Lines/Catheters IV Catheter Type (from [facility]): Peripheral IV Urinary Cath still in place: Yes Reason Cath still needed: other (indicate) Assessment/Plan Assessment/Plan 81 yo M brought in from SNF with 1. Severe sepsis with septic shock 2/2 #4 and 5 on aggressive pressor support 2. Severe hypernatremic dehydration 3. Acute renal failure 2/2 ATN from dehydration 4. UTI 5. Multifocal pneumonia 6. Encephalopathy ?acute versus acute on chronic (baseline unknown) 7. hypochromic microcytic anemia likely 2/2 chronic Bleed 8. Hypokalemia 9. Probable GI bleed (Coffee ground drainage from G tube) PLAN: * Continue ICU supportive care and mgt * appreciate nephrology and pulm aggressive input * Continue broad spectrum abx / pressor support / IVF hydration * f/u urine and resp cultures * SW to continue to try to find family as patient has extremely grim prognosis * Will likely need transfusion in near future as hgb level is likely false 2/2 severe dehydration * Continue IV protonix for probable GI bleed and keep NGT to suction till no further drainage. PROPHYLAXIS: SCDS / Protonix Subjective 24 Hr Interval Summary Free Text/Dictation * Patient seen and examined. * now on 3 pressors * Urine output still very poor Exam/Review of Systems Vital Signs Vitals Vital Signs Date Time Temp Pulse Resp B/P Pulse Ox O2 Delivery O2 Flow Rate FiO2 09/25/16 08:45 88 18 112/49 99 Mechanical Ventilator 09/25/16 08:15 98.7 09/25/16 07:28 30 Intake and Output 09/24/16 09/24/16 09/25/16 15:00 23:00 07:00 Intake Total 225.00 ml 2173.05 ml 2215.05 ml Output Total 750 ml 55 ml 90 ml Balance -525.00 ml 2118.05 ml 2125.05 ml Exam Constitutional: non-verbal, other (obese, elderly, Patient barely responsive, not following commands or tracking), Eyes open spontaneously, No oriented, No distress Psych: other (unable to assess) Head: normocephalic, atraumatic Eyes: PERRL, No icteric ENMT: No mucosa pink and moist (dry) Neck: non-tender Respiratory: diminished breath sounds, + bibasal crackles No labored breathing Cardiovascular: regular rate and rhythm, No murmurs/extra sounds Gastrointestinal: soft, non-tender, bowel sounds, other (PEG tube noted with no cellulitis or discharge) Genitourinary - Female: nl external genitalia Extremities: Chronically contracted Neurological: lethargic, other (altered, eyes opening spontaneously but no tracking or following commands), No nl mental status, No nl speech, No nl strength Results Result Diagram: 09/25/16 0415 09/25/16 0415 Results 24 hrs Laboratory Tests Test 09/24/16 17:13 09/24/16 18:53 09/24/16 20:00 09/24/16 21:18 Creatine Kinase 451 H Creatine Kinase Index 1.4 Creatinine Kinase MB (Mass) 6.26 H Troponin I 0.061 Bedside Glucose 154 182 Urine Eosinophils % 0.0 Urine Protein/Creatinine Ratio 1.09 Urine Random Creatinine 68.12 Urine Random Sodium 28 L Urine Total Protein 74.9 H Test 09/24/16 22:15 09/24/16 23:15 09/25/16 01:47 09/25/16 04:15 Bedside Glucose 190 223 H Anion Gap 20 H 21 H Blood Urea Nitrogen 156 H 142 H Calcium Level 7.4 L 7.2 L Carbon Dioxide Level 28 30 Chloride Level 112 H 108 Creatine Kinase 308 H 261 H Creatine Kinase Index 0.6 Creatinine 2.30 H 2.14 H Creatinine Kinase MB (Mass) 1.82 Glucose Level 194 193 Magnesium Level 4.0 H 3.9 H Potassium Level 3.4 L 3.0 L Sodium Level 157 H 156 H Troponin I 0.074 Activated Partial Thromboplast Time 47.7 H Alanine Aminotransferase (ALT/SGPT) 37 Albumin 2.1 #L Alkaline Phosphatase 131 H Aspartate Amino Transf (AST/SGOT) 87 H Basophils # 0.1 Basophils % 0.2 Direct Bilirubin Eosinophils # 0.1 Eosinophils % 0.2 Free Thyroxine Index 1.89 Hematocrit 27.2 L Hemoglobin 7.4 L Hemoglobin A1c 5.2 INR International Normalized Ratio 1.43 Indirect Bilirubin Lactic Acid Level 3.3 H Lymphocytes # 1.7 Lymphocytes % 4.3 L Mean Corpuscular Hemoglobin 22.3 L Mean Corpuscular Hemoglobin Concent 27.2 L Mean Corpuscular Volume 81.9 L Mean Platelet Volume 12.4 H Monocytes # 1.1 H Monocytes % 2.8 Neutrophils # 33.7 H Neutrophils % 87.1 H Nucleated Red Blood Cells # 0.1 H Nucleated Red Blood Cells % 0.2 H Phosphorus Level 4.7 Platelet Count 709 H Prothrombin Time 17.5 H Prothrombin Time Ratio 1.4 Red Blood Count 3.32 L Red Cell Distribution Width 19.3 H Thyroid Stimulating Hormone (TSH) 3.230 Thyroxine (T4) 3.7 L Total Bilirubin Total Protein 4.4 #L Triiodothyronine (T3) Uptake 51.0 H Uric Acid 13.3 H White Blood Count 38.8 #H Test 09/25/16 05:50 Bedside Glucose 221 H Medications Medications Current Medications Metoclopramide HCl (Reglan) 10 mg Q6H PRN IV NAUSEA AND/OR VOMITING; Start at 03:00 Acetaminophen (Tylenol Supp) 650 mg Q4H PRN [place] PAIN LEVEL 1-3 OR FEVER; Start 09/24/16 at 03:00 Eye Lubricant 1 drop 1 drop TID BOTH EYES Last administered on 09/25/16 08:18 ; Admin Dose 1 DROP; Start 09/24/16 at 09:00 Norepinephrine 16 mg/Dextrose 500 ml @ 1.87 mls/hr TITRATE IV Last administered on 09/25/16 06:25; Admin Dose 56.25 MLS/HR; Start 09/24/16 at 04: 00 Vasopressin/ Dextrose (Vasostrict/D5W) 60 ml @ 1.2 mls/hr Q12H IV Last administered on 09/25/16 08:22; Admin Dose 2.4 MLS/HR; Start 09/24/16 at 15:30 Sodium Hypochlorite 1 applic 1 applic BID IRR Last administered on 09/25/16 08 :18; Admin Dose 1 APPLIC; Start 09/24/16 at 21:00 Piperacillin Sod/ Tazobactam Sod (Zosyn 2.25gm/ 50ml (Pmx)) 50 ml @ 100 mls/hr Q8 IVPB Last administered on 09/25/16 05:43; Admin Dose 100 MLS/HR; Start at 17:15 Pantoprazole 40 mg 40 mg BID@06,18 IV Last administered on 09/25/16 05:43; Admin Dose 40 MG; Start 09/24/16 at 18:00 Vancomycin HCl (Vancocin) 250 ml @ 125 mls/hr Q36H IVPB ; Start 09/25/16 at 10: 00 Collagenase (Santyl) 1 applic DAILY TOP ; Start 09/24/16 at 20:30 Insulin Aspart NOVOLOG *MILD* ALGORI... Q4 SC Last administered on 09/25/16 05 :54; Admin Dose 3 UNIT; Start 09/24/16 at 21:00 Phenylephrine HCl/ Dextrose (Eulogio-Syneph/D5W) 500 ml @ 75 mls/hr TITRATE IV Last administered on 09/24/16 22:04; Admin Dose 37.5 MLS/HR; Start 09/24/16 at 21:00 Miscellaneous Information 1 ea NOTE XX ; Start 09/24/16 at 21:00 Glucose (Glutose) 15 gm Q15M PRN PO DECREASED GLUCOSE; Start 09/24/16 at 21:00 Glucose (Glutose) 22.5 gm Q15M PRN PO DECREASED GLUCOSE; Start 09/24/16 at 21: 00 Dextrose (D50w Syringe) 25 ml Q15M PRN IV DECREASED GLUCOSE; Start 09/24/16 at 21:00 Dextrose (D50w Syringe) 50 ml Q15M PRN IV DECREASED GLUCOSE; Start 09/24/16 at 21:00 Glucagon (Glucagen) 1 mg Q15M PRN IM DECREASED GLUCOSE; Start 09/24/16 at 21:00 Glucose 15 gm 15 gm Q15M PRN BUCCAL DECREASED GLUCOSE; Start 09/24/16 at 21:00 Acetaminophen 100 ml @ 400 mls/hr Q6H PRN IVPB FEVER Last administered on 09/24 22:00; Admin Dose 400 MLS/HR; Start 09/24/16 at 22:00 Dextrose/Sodium Chloride 1,000 ml @ 150 mls/hr Q6H40M IV Last administered on 09/25/16 01:40; Admin Dose 150 MLS/HR; Start 09/25/16 at 01:00 Albumin Human 100 ml @ 100 mls/hr ONCE ONCE IV ; Start 09/25/16 at 09:00; Stop 09/25/16 at 09:59 Potassium Chloride/Dextrose (KCl/D5W) 265 ml @ 88.333 mls/ hr ONCE ONCE IVPB ; Start 09/25/16 at 11:00; Stop 09/25/16 at 13:59 ROULA DEL TORO Sep 25, 2016 09:40
[2016-09-25] MEDS: COLLAGENASE 30 GM TUBE TOP SCH (09:58)
[2016-09-25] MEDS ORDERED: VANCOMYCIN 1 GM in NS 250 ML IVPB SCH (10:00)
--- NOTE | 2016-09-25 10:06 | CONS ---
Date/Time of Note Date/Time of Note DATE: 09/25/16 TIME: 10:03 Assessment/Plan Assessment/Plan Additional Assessment/Plan Ventilator settings are AC of 16, tidal volume 500, PEEP of 5, 30% FiO2. Next Assessment recommendations; 1. Patient admitted for severe sepsis due to pneumonia and UTI. Requiring high -dose pressor support for blood pressure maintenance. 2. Advanced dementia. 3. Chronic respiratory failure, ventilator dependent. 4. Acute renal insufficiency. 5. Hyponatremia. 6. Hypokalemia. Continue current supportive care. Continue current broad-spectrum antibiotic coverage. Potassium will be replaced. Add free water via G-tube for correction of hypernatremia. Prognosis remains guarded. Consultation Date/Type/Reason Admit Date/Time Sep 24, 2016 at 03:19 Initial Consult Date 09/24/16 Type of Consultation: Pulmonary/critical care Referring Provider: ROULA DEL TORO 24 HR Interval Summary Free Text/Dictation Patient condition remains critical. Requiring high-dose pressor support for blood pressure maintenance. Patient remains awake but unresponsive going to underlying CVA. General exam; elderly male, on ventilator via tracheostomy. Currently in no distress. Exam/Review of Systems Vital Signs Vitals Vital Signs Date Time Temp Pulse Resp B/P Pulse Ox O2 Delivery O2 Flow Rate FiO2 09/25/16 09:42 90 22 100 30 09/25/16 08:45 112/49 Mechanical Ventilator 09/25/16 08:15 98.7 Intake and Output 09/24/16 09/24/16 09/25/16 15:00 23:00 07:00 Intake Total 225.00 ml 2173.05 ml 2215.05 ml Output Total 750 ml 55 ml 90 ml Balance -525.00 ml 2118.05 ml 2125.05 ml Exam HEENT exam is; supple neck, no JVD. No lymphadenopathy. Midline trachea. Tracheostomy in place. Pupils are small bilaterally. No neck masses. Patient has multiple missing teeth. Neck Chest exam is; diminished breath sound bilaterally. S1-S2 audible, no murmurs. Regular rhythm. Abdomen examination; soft, nondistended. G-tube in place. Bowel sounds audible. No organomegaly. Extremity exam; no peripheral edema. 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 Results Result Diagram: 09/25/16 0415 09/25/16 0415 Results 24 hrs Laboratory Tests Test 09/24/16 17:13 09/24/16 18:53 09/24/16 20:00 09/24/16 21:18 Creatine Kinase 451 H Creatine Kinase Index 1.4 Creatinine Kinase MB (Mass) 6.26 H Troponin I 0.061 Bedside Glucose 154 182 Urine Eosinophils % 0.0 Urine Random Creatinine 68.12 Urine Random Sodium 28 L Urine Protein/Creatinine Ratio 1.09 Urine Total Protein 74.9 H Test 09/24/16 22:15 09/24/16 23:15 09/25/16 01:47 09/25/16 04:15 Bedside Glucose 190 223 H Sodium Level 157 H 156 H Potassium Level 3.4 L 3.0 L Chloride Level 112 H 108 Carbon Dioxide Level 28 30 Anion Gap 20 H 21 H Blood Urea Nitrogen 156 H 142 H Creatinine 2.30 H 2.14 H Glucose Level 194 193 Calcium Level 7.4 L 7.2 L Magnesium Level 4.0 H 3.9 H Creatine Kinase 308 H 261 H Creatine Kinase Index 0.6 Creatinine Kinase MB (Mass) 1.82 Troponin I 0.074 White Blood Count 38.8 #H Red Blood Count 3.32 L Hemoglobin 7.4 L Hematocrit 27.2 L Mean Corpuscular Volume 81.9 L Mean Corpuscular Hemoglobin 22.3 L Mean Corpuscular Hemoglobin Concent 27.2 L Red Cell Distribution Width 19.3 H Platelet Count 709 H Mean Platelet Volume 12.4 H Neutrophils % 87.1 H Lymphocytes % 4.3 L Monocytes % 2.8 Eosinophils % 0.2 Basophils % 0.2 Nucleated Red Blood Cells % 0.2 H Neutrophils # 33.7 H Lymphocytes # 1.7 Monocytes # 1.1 H Eosinophils # 0.1 Basophils # 0.1 Nucleated Red Blood Cells # 0.1 H Prothrombin Time 17.5 H Prothrombin Time Ratio 1.4 INR International Normalized Ratio 1.43 Activated Partial Thromboplast Time 47.7 H Hemoglobin A1c 5.2 Lactic Acid Level 3.3 H Uric Acid 13.3 H Phosphorus Level 4.7 Total Bilirubin Direct Bilirubin Indirect Bilirubin Aspartate Amino Transf (AST/SGOT) 87 H Alanine Aminotransferase (ALT/SGPT) 37 Alkaline Phosphatase 131 H Total Protein 4.4 #L Albumin 2.1 #L Thyroid Stimulating Hormone (TSH) 3.230 Free Thyroxine Index 1.89 Thyroxine (T4) 3.7 L Triiodothyronine (T3) Uptake 51.0 H Test 09/25/16 05:50 Bedside Glucose 221 H Medications Medications Current Medications Metoclopramide HCl (Reglan) 10 mg Q6H PRN IV NAUSEA AND/OR VOMITING; Start at 03:00 Acetaminophen (Tylenol Supp) 650 mg Q4H PRN [place] PAIN LEVEL 1-3 OR FEVER; Start 09/24/16 at 03:00 Eye Lubricant 1 drop 1 drop TID BOTH EYES Last administered on 09/25/16 08:18 ; Admin Dose 1 DROP; Start 09/24/16 at 09:00 Norepinephrine 16 mg/Dextrose 500 ml @ 1.87 mls/hr TITRATE IV Last administered on 09/25/16 06:25; Admin Dose 56.25 MLS/HR; Start 09/24/16 at 04: 00 Vasopressin/ Dextrose (Vasostrict/D5W) 60 ml @ 1.2 mls/hr Q12H IV Last administered on 09/25/16 08:22; Admin Dose 2.4 MLS/HR; Start 09/24/16 at 15:30 Sodium Hypochlorite 1 applic 1 applic BID IRR Last administered on 09/25/16 08 :18; Admin Dose 1 APPLIC; Start 09/24/16 at 21:00 Piperacillin Sod/ Tazobactam Sod (Zosyn 2.25gm/ 50ml (Pmx)) 50 ml @ 100 mls/hr Q8 IVPB Last administered on 09/25/16 05:43; Admin Dose 100 MLS/HR; Start at 17:15 Pantoprazole 40 mg 40 mg BID@06,18 IV Last administered on 09/25/16 05:43; Admin Dose 40 MG; Start 09/24/16 at 18:00 Vancomycin HCl (Vancocin) 250 ml @ 125 mls/hr Q36H IVPB ; Start 09/25/16 at 10: 00 Collagenase (Santyl) 1 applic DAILY TOP ; Start 09/24/16 at 20:30 Insulin Aspart NOVOLOG *MILD* ALGORI... Q4 SC Last administered on 09/25/16 05 :54; Admin Dose 3 UNIT; Start 09/24/16 at 21:00 Phenylephrine HCl/ Dextrose (Eulogio-Syneph/D5W) 500 ml @ 75 mls/hr TITRATE IV Last administered on 09/24/16 22:04; Admin Dose 37.5 MLS/HR; Start 09/24/16 at 21:00 Miscellaneous Information 1 ea NOTE XX ; Start 09/24/16 at 21:00 Glucose (Glutose) 15 gm Q15M PRN PO DECREASED GLUCOSE; Start 09/24/16 at 21:00 Glucose (Glutose) 22.5 gm Q15M PRN PO DECREASED GLUCOSE; Start 09/24/16 at 21: 00 Dextrose (D50w Syringe) 25 ml Q15M PRN IV DECREASED GLUCOSE; Start 09/24/16 at 21:00 Dextrose (D50w Syringe) 50 ml Q15M PRN IV DECREASED GLUCOSE; Start 09/24/16 at 21:00 Glucagon (Glucagen) 1 mg Q15M PRN IM DECREASED GLUCOSE; Start 09/24/16 at 21:00 Glucose 15 gm 15 gm Q15M PRN BUCCAL DECREASED GLUCOSE; Start 09/24/16 at 21:00 Acetaminophen 100 ml @ 400 mls/hr Q6H PRN IVPB FEVER Last administered on 09/24 22:00; Admin Dose 400 MLS/HR; Start 09/24/16 at 22:00 Dextrose/Sodium Chloride 1,000 ml @ 150 mls/hr Q6H40M IV Last administered on 09/25/16 01:40; Admin Dose 150 MLS/HR; Start 09/25/16 at 01:00 Potassium Chloride/Dextrose (KCl/D5W) 265 ml @ 88.333 mls/ hr ONCE ONCE IVPB ; Start 09/25/16 at 11:00; Stop 09/25/16 at 13:59 MAIN SALTER Sep 25, 2016 10:06
[2016-09-25] MEDS ORDERED: POTASSIUM CHLORIDE 30 MEQ in DEXTROSE 5% 250 ML IVPB ONE (11:00)
--- NOTE | 2016-09-25 11:38 | CONS ---
Date/Time of Note Date/Time of Note DATE: 09/24/16 TIME: 12:38 VK LE Assessment/Plan Assessment/Plan Chief Complaint/Hosp Course ANEMIA - NEAR- MICROCYTIC WITH INCREASED RDW DROP H/H DURING HOSPITALIZATION COMPLETE W-UP TRANSFUSE PRBC TO KEEP HB MORE THAN 8 TRANSFUSE NEEDED COMPLETE ANEMIA W-UP Probable GI bleed (Coffee ground drainage from G tube) LEUKOCYTOSIS- REACTIVE CONT ATB FOR SEPSIS THROMBOCYTOSIS REACTIVE SHOULD IMPROVE WITH RESOLUTION OF SEPSIS Severe sepsis with septic shock 2/2 #4 and 5 on aggressive pressor support Severe hypernatremic dehydration Acute renal failure 2/2 ATN from dehydration UTI Multifocal pneumonia Encephalopathy ?acute versus acute on chronic (baseline unknown) Hypokalemia Problems: Consultation Date/Type/Reason Admit Date/Time Sep 24, 2016 at 03:19 Date of Consultation: Sep 24, 2016 Type of Consultation: HEMEONC Reason for Consultation ANEMIA Referring Provider: MOISES DINERO MD Hx of Present Illness This is a 81-year-old male [facility] by [facility] for low blood pressure. Found to be 60s over 40s with low O2 sat nonvented 86%. Patient is unable to provide any relevant history secondary to baseline medical condition. History is per EMS run sheet care home transfer sheet. I WAS ASKED TO PROVIDE HEMEONC CONSULT RE ANEMIA ROS Subjective hx not possible: pt non-verbal (Unable to obtain any ROS other than the information provided in the brief HPI.) PMH/Family/Social Past Medical History RESPIRATORY FAILURE, VENTILATOR DEPENDENT, HTN, ATRIAL FIBRILLATION, KIDNEY FAILURE, HYPOTHYROIDISM, ANEMIA, SPESIS, MULTIPLE PRESSURE ULCERS, GERD, Encephalopathy, Calculus of Kidney, Unspecified Sequela of Unspecified Cerebrovascular Disease, Pneumonitis, NSTEMI, ASHD, Hyperlipidemia, Non- Rheumatic Mitral Valve Insufficiency Past Surgical History TRACHEOSTOMY to Ventilator; PEG Tube Family History Significant Family History: other (Unknown) Social History Smoking Status: Never smoker Psychological: other (not able to evaluate) Social History Smoking Status: Unknown if ever smoked Exam/Review of Systems Exam Exam/Review of Systems Vital Signs Vitals Vital Signs Date Time Temp Pulse Resp B/P Pulse Ox O2 Delivery O2 Flow Rate FiO2 09/23/16 23:18 98.6 96 24 68/37 98 Exam Constitutional: alert, frail, non-verbal, other (on ventilator via trach) Psych: other (not able to evaluate) Head: atraumatic, normocephalic Eyes: nl sclera, other (not able to cooperate with exam) ENMT: nl external ears & nose, other (patient would not open his mouth with verbal and visual clues) Neck: non-tender (patient did not wince with exam. ), supple (no masses appreciated) Respiratory: diminished breath sounds (and coarse breath sounds throughout, fine crackles in the bases, left more than right) Gastrointestinal: nl liver, spleen, non-tender, soft Extremities: edema (bilateral pedal edema, +1 to lower 1/3 legs bilaterally), other (contracted) Neurological: other (unable to assess.) Skin: other (pale, decreased turgor. Warm, dry. No visible rashes, but I did not turn patient over. (In records from the SNF, multiple pressure ulcers were documented on his admit there on 07/23/16: deep sacral and bilateral buttocks, bilateral hips, 1 ankle and 1 heel) Lymph: nl lymph nodes (Cervical, Axillary, Inguinal) Results Result Diagram: 09/25/16 0415 09/25/16 0415 Results 24 hrs Laboratory Tests Test 09/24/16 17:13 09/24/16 18:53 09/24/16 20:00 09/24/16 21:18 Creatine Kinase 451 H Creatine Kinase Index 1.4 Creatinine Kinase MB (Mass) 6.26 H Troponin I 0.061 Bedside Glucose 154 182 Urine Eosinophils % 0.0 Urine Random Creatinine 68.12 Urine Random Sodium 28 L Urine Protein/Creatinine Ratio 1.09 Urine Total Protein 74.9 H Test 09/24/16 22:15 09/24/16 23:15 09/25/16 01:47 09/25/16 04:15 Bedside Glucose 190 223 H Sodium Level 157 H 156 H Potassium Level 3.4 L 3.0 L Chloride Level 112 H 108 Carbon Dioxide Level 28 30 Anion Gap 20 H 21 H Blood Urea Nitrogen 156 H 142 H Creatinine 2.30 H 2.14 H Glucose Level 194 193 Calcium Level 7.4 L 7.2 L Magnesium Level 4.0 H 3.9 H Creatine Kinase 308 H 261 H Creatine Kinase Index 0.6 Creatinine Kinase MB (Mass) 1.82 Troponin I 0.074 White Blood Count 38.8 #H Red Blood Count 3.32 L Hemoglobin 7.4 L Hematocrit 27.2 L Mean Corpuscular Volume 81.9 L Mean Corpuscular Hemoglobin 22.3 L Mean Corpuscular Hemoglobin Concent 27.2 L Red Cell Distribution Width 19.3 H Platelet Count 709 H Mean Platelet Volume 12.4 H Neutrophils % 87.1 H Lymphocytes % 4.3 L Monocytes % 2.8 Eosinophils % 0.2 Basophils % 0.2 Nucleated Red Blood Cells % 0.2 H Neutrophils # 33.7 H Lymphocytes # 1.7 Monocytes # 1.1 H Eosinophils # 0.1 Basophils # 0.1 Nucleated Red Blood Cells # 0.1 H Prothrombin Time 17.5 H Prothrombin Time Ratio 1.4 INR International Normalized Ratio 1.43 Activated Partial Thromboplast Time 47.7 H Hemoglobin A1c 5.2 Lactic Acid Level 3.3 H Uric Acid 13.3 H Phosphorus Level 4.7 Total Bilirubin Direct Bilirubin Indirect Bilirubin Aspartate Amino Transf (AST/SGOT) 87 H Alanine Aminotransferase (ALT/SGPT) 37 Alkaline Phosphatase 131 H Total Protein 4.4 #L Albumin 2.1 #L Thyroid Stimulating Hormone (TSH) 3.230 Free Thyroxine Index 1.89 Thyroxine (T4) 3.7 L Triiodothyronine (T3) Uptake 51.0 H Test 09/25/16 05:50 09/25/16 09:40 09/25/16 09:56 Bedside Glucose 221 H 224 H Lactic Acid Level 2.7 H Medications Medications Current Medications Metoclopramide HCl (Reglan) 10 mg Q6H PRN IV NAUSEA AND/OR VOMITING; Start at 03:00 Acetaminophen (Tylenol Supp) 650 mg Q4H PRN [place] PAIN LEVEL 1-3 OR FEVER; Start 09/24/16 at 03:00 Eye Lubricant 1 drop 1 drop TID BOTH EYES Last administered on 09/25/16 08:18 ; Admin Dose 1 DROP; Start 09/24/16 at 09:00 Norepinephrine 16 mg/Dextrose 500 ml @ 1.87 mls/hr TITRATE IV Last administered on 09/25/16 06:25; Admin Dose 56.25 MLS/HR; Start 09/24/16 at 04: 00 Vasopressin/ Dextrose (Vasostrict/D5W) 60 ml @ 1.2 mls/hr Q12H IV Last administered on 09/25/16 08:22; Admin Dose 2.4 MLS/HR; Start 09/24/16 at 15:30 Sodium Hypochlorite 1 applic 1 applic BID IRR Last administered on 09/25/16 08 :18; Admin Dose 1 APPLIC; Start 09/24/16 at 21:00 Piperacillin Sod/ Tazobactam Sod (Zosyn 2.25gm/ 50ml (Pmx)) 50 ml @ 100 mls/hr Q8 IVPB Last administered on 09/25/16 05:43; Admin Dose 100 MLS/HR; Start at 17:15 Pantoprazole 40 mg 40 mg BID@06,18 IV Last administered on 09/25/16 05:43; Admin Dose 40 MG; Start 09/24/16 at 18:00 Vancomycin HCl (Vancocin) 250 ml @ 125 mls/hr Q36H IVPB Last administered on 09:58; Admin Dose 125 MLS/HR; Start 09/25/16 at 10:00 Collagenase (Santyl) 1 applic DAILY TOP Last administered on 09/25/16 09:58; Admin Dose 1 APPLIC; Start 09/24/16 at 20:30 Insulin Aspart NOVOLOG *MILD* ALGORI... Q4 SC Last administered on 09/25/16 09 :59; Admin Dose 3 UNIT; Start 09/24/16 at 21:00 Phenylephrine HCl/ Dextrose (Eulogio-Syneph/D5W) 500 ml @ 75 mls/hr TITRATE IV Last administered on 09/24/16 22:04; Admin Dose 37.5 MLS/HR; Start 09/24/16 at 21:00 Miscellaneous Information 1 ea NOTE XX ; Start 09/24/16 at 21:00 Glucose (Glutose) 15 gm Q15M PRN PO DECREASED GLUCOSE; Start 09/24/16 at 21:00 Glucose (Glutose) 22.5 gm Q15M PRN PO DECREASED GLUCOSE; Start 09/24/16 at 21: 00 Dextrose (D50w Syringe) 25 ml Q15M PRN IV DECREASED GLUCOSE; Start 09/24/16 at 21:00 Dextrose (D50w Syringe) 50 ml Q15M PRN IV DECREASED GLUCOSE; Start 09/24/16 at 21:00 Glucagon (Glucagen) 1 mg Q15M PRN IM DECREASED GLUCOSE; Start 09/24/16 at 21:00 Glucose 15 gm 15 gm Q15M PRN BUCCAL DECREASED GLUCOSE; Start 09/24/16 at 21:00 Acetaminophen 100 ml @ 400 mls/hr Q6H PRN IVPB FEVER Last administered on 09/24 22:00; Admin Dose 400 MLS/HR; Start 09/24/16 at 22:00 Dextrose/Sodium Chloride 1,000 ml @ 150 mls/hr Q6H40M IV Last administered on 09/25/16 01:40; Admin Dose 150 MLS/HR; Start 09/25/16 at 01:00 Potassium Chloride/Dextrose (KCl/D5W) 265 ml @ 88.333 mls/ hr ONCE ONCE IVPB ; Start 09/25/16 at 11:00; Stop 09/25/16 at 13:59 SCOTT RODRIGUES MD Sep 25, 2016 11:38
--- NOTE | 2016-09-25 11:38 | CONS ---
Date/Time of Note Date/Time of Note DATE: 09/25/16 TIME: 11:28 Assessment/Plan Assessment/Plan Chief Complaint/Hosp Course ANEMIA - NEAR- MICROCYTIC WITH INCREASED RDW DROP H/H DURING HOSPITALIZATION COMPLETE W-UP TRANSFUSE PRBC TO KEEP HB MORE THAN 8 TRANSFUSE NEEDED COMPLETE ANEMIA W-UP Probable GI bleed (Coffee ground drainage from G tube) LEUKOCYTOSIS- REACTIVE CONT ATB FOR SEPSIS THROMBOCYTOSIS REACTIVE SHOULD IMPROVE WITH RESOLUTION OF SEPSIS Severe sepsis with septic shock 2/2 #4 and 5 on aggressive pressor support Severe hypernatremic dehydration Acute renal failure 2/2 ATN from dehydration UTI Multifocal pneumonia Encephalopathy ?acute versus acute on chronic (baseline unknown) Hypokalemia Problems: Consultation Date/Type/Reason Admit Date/Time Sep 24, 2016 at 03:19 Initial Consult Date 09/24/16 Type of Consultation: hemeonc Reason for Consultation anemia Referring Provider: ROULA DEL TORO 24 HR Interval Summary Free Text/Dictation pt known to me for the last 10 years d/w Requiring high-dose pressor support for blood pressure maintenance. Patient remains awake but unresponsive going to underlying CVA. COUNT DROPPED NO BLEEDING Exam/Review of Systems Vital Signs Vitals Vital Signs Date Time Temp Pulse Resp B/P Pulse Ox O2 Delivery O2 Flow Rate FiO2 09/25/16 11:00 85 19 113/52 100 Mechanical Ventilator 09/25/16 09:42 30 09/25/16 08:15 98.7 Intake and Output 09/24/16 09/24/16 09/25/16 15:00 23:00 07:00 Intake Total 225.00 ml 2173.05 ml 2215.05 ml Output Total 750 ml 55 ml 90 ml Balance -525.00 ml 2118.05 ml 2125.05 ml Exam Constitutional: alert, frail, non-verbal, other (on ventilator via trach) Psych: other (not able to evaluate) Head: atraumatic, normocephalic Eyes: nl sclera, other (not able to cooperate with exam) ENMT: nl external ears & nose, other (patient would not open his mouth with verbal and visual clues) Neck: non-tender (patient did not wince with exam. ), supple (no masses appreciated) Respiratory: diminished breath sounds (and coarse breath sounds throughout, fine crackles in the bases, left more than right) Gastrointestinal: nl liver, spleen, non-tender, soft Extremities: edema (bilateral pedal edema, +1 to lower 1/3 legs bilaterally), other (contracted) Neurological: other (unable to assess.) Skin: other (pale, decreased turgor. Warm, dry. No visible rashes, but I did not turn patient over. (In records from the SNF, multiple pressure ulcers were documented on his admit there on 07/23/16: deep sacral and bilateral buttocks, bilateral hips, 1 ankle and 1 heel) Lymph: nl lymph nodes (Cervical, Axillary, Inguinal) Results Result Diagram: 09/25/16 0415 09/25/16 0415 Results 24 hrs Laboratory Tests Test 09/24/16 17:13 09/24/16 18:53 09/24/16 20:00 09/24/16 21:18 Creatine Kinase 451 H Creatine Kinase Index 1.4 Creatinine Kinase MB (Mass) 6.26 H Troponin I 0.061 Bedside Glucose 154 182 Urine Eosinophils % 0.0 Urine Random Creatinine 68.12 Urine Random Sodium 28 L Urine Protein/Creatinine Ratio 1.09 Urine Total Protein 74.9 H Test 09/24/16 22:15 09/24/16 23:15 09/25/16 01:47 09/25/16 04:15 Bedside Glucose 190 223 H Sodium Level 157 H 156 H Potassium Level 3.4 L 3.0 L Chloride Level 112 H 108 Carbon Dioxide Level 28 30 Anion Gap 20 H 21 H Blood Urea Nitrogen 156 H 142 H Creatinine 2.30 H 2.14 H Glucose Level 194 193 Calcium Level 7.4 L 7.2 L Magnesium Level 4.0 H 3.9 H Creatine Kinase 308 H 261 H Creatine Kinase Index 0.6 Creatinine Kinase MB (Mass) 1.82 Troponin I 0.074 White Blood Count 38.8 #H Red Blood Count 3.32 L Hemoglobin 7.4 L Hematocrit 27.2 L Mean Corpuscular Volume 81.9 L Mean Corpuscular Hemoglobin 22.3 L Mean Corpuscular Hemoglobin Concent 27.2 L Red Cell Distribution Width 19.3 H Platelet Count 709 H Mean Platelet Volume 12.4 H Neutrophils % 87.1 H Lymphocytes % 4.3 L Monocytes % 2.8 Eosinophils % 0.2 Basophils % 0.2 Nucleated Red Blood Cells % 0.2 H Neutrophils # 33.7 H Lymphocytes # 1.7 Monocytes # 1.1 H Eosinophils # 0.1 Basophils # 0.1 Nucleated Red Blood Cells # 0.1 H Prothrombin Time 17.5 H Prothrombin Time Ratio 1.4 INR International Normalized Ratio 1.43 Activated Partial Thromboplast Time 47.7 H Hemoglobin A1c 5.2 Lactic Acid Level 3.3 H Uric Acid 13.3 H Phosphorus Level 4.7 Total Bilirubin Direct Bilirubin Indirect Bilirubin Aspartate Amino Transf (AST/SGOT) 87 H Alanine Aminotransferase (ALT/SGPT) 37 Alkaline Phosphatase 131 H Total Protein 4.4 #L Albumin 2.1 #L Thyroid Stimulating Hormone (TSH) 3.230 Free Thyroxine Index 1.89 Thyroxine (T4) 3.7 L Triiodothyronine (T3) Uptake 51.0 H Test 09/25/16 05:50 09/25/16 09:40 09/25/16 09:56 Bedside Glucose 221 H 224 H Lactic Acid Level 2.7 H Medications Medications Current Medications Metoclopramide HCl (Reglan) 10 mg Q6H PRN IV NAUSEA AND/OR VOMITING; Start at 03:00 Acetaminophen (Tylenol Supp) 650 mg Q4H PRN [place] PAIN LEVEL 1-3 OR FEVER; Start 09/24/16 at 03:00 Eye Lubricant 1 drop 1 drop TID BOTH EYES Last administered on 09/25/16 08:18 ; Admin Dose 1 DROP; Start 09/24/16 at 09:00 Norepinephrine 16 mg/Dextrose 500 ml @ 1.87 mls/hr TITRATE IV Last administered on 09/25/16 06:25; Admin Dose 56.25 MLS/HR; Start 09/24/16 at 04: 00 Vasopressin/ Dextrose (Vasostrict/D5W) 60 ml @ 1.2 mls/hr Q12H IV Last administered on 09/25/16 08:22; Admin Dose 2.4 MLS/HR; Start 09/24/16 at 15:30 Sodium Hypochlorite 1 applic 1 applic BID IRR Last administered on 09/25/16 08 :18; Admin Dose 1 APPLIC; Start 09/24/16 at 21:00 Piperacillin Sod/ Tazobactam Sod (Zosyn 2.25gm/ 50ml (Pmx)) 50 ml @ 100 mls/hr Q8 IVPB Last administered on 09/25/16 05:43; Admin Dose 100 MLS/HR; Start at 17:15 Pantoprazole 40 mg 40 mg BID@06,18 IV Last administered on 09/25/16 05:43; Admin Dose 40 MG; Start 09/24/16 at 18:00 Vancomycin HCl (Vancocin) 250 ml @ 125 mls/hr Q36H IVPB Last administered on 09:58; Admin Dose 125 MLS/HR; Start 09/25/16 at 10:00 Collagenase (Santyl) 1 applic DAILY TOP Last administered on 09/25/16 09:58; Admin Dose 1 APPLIC; Start 09/24/16 at 20:30 Insulin Aspart NOVOLOG *MILD* ALGORI... Q4 SC Last administered on 09/25/16 09 :59; Admin Dose 3 UNIT; Start 09/24/16 at 21:00 Phenylephrine HCl/ Dextrose (Eulogio-Syneph/D5W) 500 ml @ 75 mls/hr TITRATE IV Last administered on 09/24/16 22:04; Admin Dose 37.5 MLS/HR; Start 09/24/16 at 21:00 Miscellaneous Information 1 ea NOTE XX ; Start 09/24/16 at 21:00 Glucose (Glutose) 15 gm Q15M PRN PO DECREASED GLUCOSE; Start 09/24/16 at 21:00 Glucose (Glutose) 22.5 gm Q15M PRN PO DECREASED GLUCOSE; Start 09/24/16 at 21: 00 Dextrose (D50w Syringe) 25 ml Q15M PRN IV DECREASED GLUCOSE; Start 09/24/16 at 21:00 Dextrose (D50w Syringe) 50 ml Q15M PRN IV DECREASED GLUCOSE; Start 09/24/16 at 21:00 Glucagon (Glucagen) 1 mg Q15M PRN IM DECREASED GLUCOSE; Start 09/24/16 at 21:00 Glucose 15 gm 15 gm Q15M PRN BUCCAL DECREASED GLUCOSE; Start 09/24/16 at 21:00 Acetaminophen 100 ml @ 400 mls/hr Q6H PRN IVPB FEVER Last administered on 09/24 22:00; Admin Dose 400 MLS/HR; Start 09/24/16 at 22:00 Dextrose/Sodium Chloride 1,000 ml @ 150 mls/hr Q6H40M IV Last administered on 09/25/16t 01:40; Admin Dose 150 MLS/HR; Start 09/25/16 at 01:00 Potassium Chloride/Dextrose (KCl/D5W) 265 ml @ 88.333 mls/ hr ONCE ONCE IVPB ; Start 09/25/16 at 11:00; Stop 09/25/16 at 13:59 SCOTT RODRIGUES MD Sep 25, 2016 11:38
--- NOTE | 2016-09-25 11:58 | CONS ---
Date/Time of Note Date/Time of Note DATE: 09/25/16 TIME: 11:53 Assessment/Plan Assessment/Plan Additional Assessment/Plan Severe septic shock Respiratory failure Coronary artery disease Anemia Acute kidney injury -Patient requiring less IV pressors, would continue to maintain SBP greater than 90 and/or map above 60. IV fluids as per our nephrology colleagues. Will check echocardiogram, antibiotics as per infectious disease. Continue telemetry monitoring. Consultation Date/Type/Reason Admit Date/Time Sep 24, 2016 at 03:19 Type of Consultation: cv Reason for Consultation Hypotension Hx of Present Illness This is a 81-year-old male with chronic respiratory failure with tracheostomy who was transferred from nursing facility secondary to shortness of breath, hypotension and altered mental status. Patient found to be in severe septic shock requiring multiple IV pressors. Patient brought to the ICU, with broad- spectrum antibiotics and IV pressors. Patient with slow improvement and currently down to 2 IV pressors. He is awake, he does occasionally look around the room. History is obtained from medical chart, somewhat from the at bedside and from nursing staff. Unable to be performed given patient's mental status at the current time Psychological: other (not able to evaluate) Past Medical History Respiratory failure Atrial fibrillation, paroxysmal Anemia Coronary artery disease Past Surgical History Including but not limited to tracheostomy and PEG tube Family History Significant Family History: no pertinent family hx Social History Alcohol Use: none Smoking Status: Unknown if ever smoked Other Social History From group home facility Exam/Review of Systems Vital Signs Vitals Vital Signs Date Time Temp Pulse Resp B/P Pulse Ox O2 Delivery O2 Flow Rate FiO2 09/25/16 11:00 85 19 113/52 100 Mechanical Ventilator 09/25/16 09:42 30 09/25/16 08:15 98.7 Intake and Output 09/24/16 09/24/16 09/25/16 15:00 23:00 07:00 Intake Total 225.00 ml 2173.05 ml 2215.05 ml Output Total 750 ml 55 ml 90 ml Balance -525.00 ml 2118.05 ml 2125.05 ml Exam Awake, no apparent distress, on ventilator, contractions Head: normocephalic Neck: other (Tracheostomy) Respiratory: other (Coarse breath sounds bilaterally with mild scattered rhonchi, no wheezing) Cardiovascular: other (S1-S2 heard), regular rate and rhythm (With occasional irregularities), systolic murmur Gastrointestinal: bowel sounds, non-tender, other (No guarding), soft Extremities: edema, other (No cyanosis) Results Result Diagram: 09/25/16 0415 09/25/16 0415 Results 24 hrs Laboratory Tests Test 09/24/16 17:13 09/24/16 18:53 09/24/16 20:00 09/24/16 21:18 Creatine Kinase 451 H Creatine Kinase Index 1.4 Creatinine Kinase MB (Mass) 6.26 H Troponin I 0.061 Bedside Glucose 154 182 Urine Eosinophils % 0.0 Urine Random Creatinine 68.12 Urine Random Sodium 28 L Urine Protein/Creatinine Ratio 1.09 Urine Total Protein 74.9 H Test 09/24/16 22:15 09/24/16 23:15 09/25/16 01:47 09/25/16 04:15 Bedside Glucose 190 223 H Sodium Level 157 H 156 H Potassium Level 3.4 L 3.0 L Chloride Level 112 H 108 Carbon Dioxide Level 28 30 Anion Gap 20 H 21 H Blood Urea Nitrogen 156 H 142 H Creatinine 2.30 H 2.14 H Glucose Level 194 193 Calcium Level 7.4 L 7.2 L Magnesium Level 4.0 H 3.9 H Creatine Kinase 308 H 261 H Creatine Kinase Index 0.6 Creatinine Kinase MB (Mass) 1.82 Troponin I 0.074 White Blood Count 38.8 #H Red Blood Count 3.32 L Hemoglobin 7.4 L Hematocrit 27.2 L Mean Corpuscular Volume 81.9 L Mean Corpuscular Hemoglobin 22.3 L Mean Corpuscular Hemoglobin Concent 27.2 L Red Cell Distribution Width 19.3 H Platelet Count 709 H Mean Platelet Volume 12.4 H Neutrophils % 87.1 H Lymphocytes % 4.3 L Monocytes % 2.8 Eosinophils % 0.2 Basophils % 0.2 Nucleated Red Blood Cells % 0.2 H Neutrophils # 33.7 H Lymphocytes # 1.7 Monocytes # 1.1 H Eosinophils # 0.1 Basophils # 0.1 Nucleated Red Blood Cells # 0.1 H Prothrombin Time 17.5 H Prothrombin Time Ratio 1.4 INR International Normalized Ratio 1.43 Activated Partial Thromboplast Time 47.7 H Hemoglobin A1c 5.2 Lactic Acid Level 3.3 H Uric Acid 13.3 H Phosphorus Level 4.7 Total Bilirubin Direct Bilirubin Indirect Bilirubin Aspartate Amino Transf (AST/SGOT) 87 H Alanine Aminotransferase (ALT/SGPT) 37 Alkaline Phosphatase 131 H Total Protein 4.4 #L Albumin 2.1 #L Thyroid Stimulating Hormone (TSH) 3.230 Free Thyroxine Index 1.89 Thyroxine (T4) 3.7 L Triiodothyronine (T3) Uptake 51.0 H Test 09/25/16 05:50 09/25/16 09:40 09/25/16 09:56 Bedside Glucose 221 H 224 H Lactic Acid Level 2.7 H Medications Medications Current Medications Metoclopramide HCl (Reglan) 10 mg Q6H PRN IV NAUSEA AND/OR VOMITING; Start at 03:00 Acetaminophen (Tylenol Supp) 650 mg Q4H PRN [place] PAIN LEVEL 1-3 OR FEVER; Start 09/24/16 at 03:00 Eye Lubricant 1 drop 1 drop TID BOTH EYES Last administered on 09/25/16 08:18 ; Admin Dose 1 DROP; Start 09/24/16 at 09:00 Norepinephrine 16 mg/Dextrose 500 ml @ 1.87 mls/hr TITRATE IV Last administered on 09/25/16 06:25; Admin Dose 56.25 MLS/HR; Start 09/24/16 at 04: 00 Vasopressin/ Dextrose (Vasostrict/D5W) 60 ml @ 1.2 mls/hr Q12H IV Last administered on 09/25/16 08:22; Admin Dose 2.4 MLS/HR; Start 09/24/16 at 15:30 Sodium Hypochlorite 1 applic 1 applic BID IRR Last administered on 09/25/16 08 :18; Admin Dose 1 APPLIC; Start 09/24/16 at 21:00 Piperacillin Sod/ Tazobactam Sod (Zosyn 2.25gm/ 50ml (Pmx)) 50 ml @ 100 mls/hr Q8 IVPB Last administered on 09/25/16 05:43; Admin Dose 100 MLS/HR; Start at 17:15 Pantoprazole 40 mg 40 mg BID@06,18 IV Last administered on 09/25/16 05:43; Admin Dose 40 MG; Start 09/24/16 at 18:00 Vancomycin HCl (Vancocin) 250 ml @ 125 mls/hr Q36H IVPB Last administered on 09:58; Admin Dose 125 MLS/HR; Start 09/25/16 at 10:00 Collagenase (Santyl) 1 applic DAILY TOP Last administered on 09/25/16 09:58; Admin Dose 1 APPLIC; Start 09/24/16 at 20:30 Insulin Aspart NOVOLOG *MILD* ALGORI... Q4 SC Last administered on 09/25/16 09 :59; Admin Dose 3 UNIT; Start 09/24/16 at 21:00 Phenylephrine HCl/ Dextrose (Eulogio-Syneph/D5W) 500 ml @ 75 mls/hr TITRATE IV Last administered on 09/24/16 22:04; Admin Dose 37.5 MLS/HR; Start 09/24/16 at 21:00 Miscellaneous Information 1 ea NOTE XX ; Start 09/24/16 at 21:00 Glucose (Glutose) 15 gm Q15M PRN PO DECREASED GLUCOSE; Start 09/24/16 at 21:00 Glucose (Glutose) 22.5 gm Q15M PRN PO DECREASED GLUCOSE; Start 09/24/16 at 21: 00 Dextrose (D50w Syringe) 25 ml Q15M PRN IV DECREASED GLUCOSE; Start 09/24/16 at 21:00 Dextrose (D50w Syringe) 50 ml Q15M PRN IV DECREASED GLUCOSE; Start 09/24/16 at 21:00 Glucagon (Glucagen) 1 mg Q15M PRN IM DECREASED GLUCOSE; Start 09/24/16 at 21:00 Glucose 15 gm 15 gm Q15M PRN BUCCAL DECREASED GLUCOSE; Start 09/24/16 at 21:00 Acetaminophen 100 ml @ 400 mls/hr Q6H PRN IVPB FEVER Last administered on 09/24 22:00; Admin Dose 400 MLS/HR; Start 09/24/16 at 22:00 Dextrose/Sodium Chloride 1,000 ml @ 150 mls/hr Q6H40M IV Last administered on 09/25/16 01:40; Admin Dose 150 MLS/HR; Start 09/25/16 at 01:00 Potassium Chloride/Dextrose (KCl/D5W) 265 ml @ 88.333 mls/ hr ONCE ONCE IVPB ; Start 09/25/16 at 11:00; Stop 09/25/16 at 13:59 Procedures Procedures ECG demonstrates sinus rhythm 85 bpm, left ventricular hypertrophy, QRS 90 ms, nonspecific STT wave abnormalities Junito,Ryder N. DO Sep 25, 2016 11:58
[2016-09-25 12:25] LABS: IRON 12 ug/dl (35-150)
[2016-09-25 12:26] LABS: LACTATE DEHYDROGENASE 833 IU/L (313-618); URIC ACID 13.9 mg/dl (3.1-7.9)
[2016-09-25 12:35] LABS: TOTAL IRON BINDING CAPACITY 178 ug/dl (241-421)
[2016-09-25 12:39] LABS: RETICULOCYTE COUNT % 1.4 % (0.5-1.5)
--- NOTE | 2016-09-25 13:09 | CONS ---
Date/Time of Note Date/Time of Note DATE: 09/25/16 TIME: 12:43 Assessment/Plan Assessment/Plan Additional Assessment/Plan Assessment Anemia Upper gi bleed Sepsis Chronic respiratory failure on ventilator Plan Aggressive v pressor support Monitor H and h q 6 and transfuse per protocol EGD would be required if there is evidence of active bleeding Consultation Date/Type/Reason Admit Date/Time Sep 24, 2016 at 03:19 Type of Consultation: Gastroenterology Reason for Consultation coffee ground liquid per g tube Hx of Present Illness 81 y/o male seen and evaluated at the er because of hypotension .Patient medical history includes chronic respiratory ventilator dependent .CVA, hypertension,sepsis secondary to urinary tract infection as well as pneumonia.Patient is presently in ICU receiving pressors for blood pressure support.He had severe leukocytosis and hypernatremia .He is referred for evaluation of coffee ground liquid per g tube,presently greenish liquid is seen per g tube No vomiting nor hematochezia.Rectal tube in placed with no gross bleeding nor stool noted.Present hemoglobin is 7.4 Psychological: other (not able to evaluate) Past Medical History Medical History: hypertension, urinary tract infection, other ( pneumonia.cronic respiratory failure,) Past Surgical History Past Surgical Hx: other (S/P tracheostomy,S/P PEG placement) Social History Alcohol Use: none Smoking Status: Unknown if ever smoked Drug Use: none Exam/Review of Systems Vital Signs Vitals Vital Signs Date Time Temp Pulse Resp B/P Pulse Ox O2 Delivery O2 Flow Rate FiO2 09/25/16 11:00 85 19 113/52 100 Mechanical Ventilator 09/25/16 09:42 30 09/25/16 08:15 98.7 Intake and Output 09/24/16 09/24/16 09/25/16 15:00 23:00 07:00 Intake Total 225.00 ml 2173.05 ml 2215.05 ml Output Total 750 ml 55 ml 90 ml Balance -525.00 ml 2118.05 ml 2125.05 ml Exam General Survey :awake ,non verbal HEENT: Tracheostomy site is clear and connected to the ventilator. NECK: Supple, no JVD. LUNGS: Decreased breath sounds with bilateral coarse breath sounds. HEART: S1, S2, tachycardia, no murmur. ABDOMEN: Soft. G-tube in place. EXTREMITIES: Contracture extremities. SKIN: The patient has multiple chronic pressure ulcers. NEUROLOGICAL: Uncooperative for exam. Results Result Diagram: 09/25/16 0415 09/25/16 0415 Results 24 hrs Laboratory Tests Test 09/24/16 17:13 09/24/16 18:53 09/24/16 20:00 09/24/16 21:18 Creatine Kinase 451 H Creatine Kinase Index 1.4 Creatinine Kinase MB (Mass) 6.26 H Troponin I 0.061 Bedside Glucose 154 182 Urine Eosinophils % 0.0 Urine Random Creatinine 68.12 Urine Random Sodium 28 L Urine Protein/Creatinine Ratio 1.09 Urine Total Protein 74.9 H Test 09/24/16 22:15 09/24/16 23:15 09/25/16 01:47 09/25/16 04:15 Bedside Glucose 190 223 H Sodium Level 157 H 156 H Potassium Level 3.4 L 3.0 L Chloride Level 112 H 108 Carbon Dioxide Level 28 30 Anion Gap 20 H 21 H Blood Urea Nitrogen 156 H 142 H Creatinine 2.30 H 2.14 H Glucose Level 194 193 Calcium Level 7.4 L 7.2 L Magnesium Level 4.0 H 3.9 H Creatine Kinase 308 H 261 H Creatine Kinase Index 0.6 Creatinine Kinase MB (Mass) 1.82 Troponin I 0.074 White Blood Count 38.8 #H Red Blood Count 3.32 L Hemoglobin 7.4 L Hematocrit 27.2 L Mean Corpuscular Volume 81.9 L Mean Corpuscular Hemoglobin 22.3 L Mean Corpuscular Hemoglobin Concent 27.2 L Red Cell Distribution Width 19.3 H Platelet Count 709 H Mean Platelet Volume 12.4 H Neutrophils % 87.1 H Lymphocytes % 4.3 L Monocytes % 2.8 Eosinophils % 0.2 Basophils % 0.2 Nucleated Red Blood Cells % 0.2 H Neutrophils # 33.7 H Lymphocytes # 1.7 Monocytes # 1.1 H Eosinophils # 0.1 Basophils # 0.1 Nucleated Red Blood Cells # 0.1 H Prothrombin Time 17.5 H Prothrombin Time Ratio 1.4 INR International Normalized Ratio 1.43 Activated Partial Thromboplast Time 47.7 H Hemoglobin A1c 5.2 Lactic Acid Level 3.3 H Uric Acid 13.9 H Phosphorus Level 4.7 Iron Level 12 L Total Iron Binding Capacity 178 L Percent Iron Saturation 7 L Ferritin Pending Total Bilirubin Direct Bilirubin Indirect Bilirubin Aspartate Amino Transf (AST/SGOT) 87 H Alanine Aminotransferase (ALT/SGPT) 37 Alkaline Phosphatase 131 H Lactate Dehydrogenase 833 H Total Protein 4.4 #L Albumin 2.1 #L Vitamin B12 Level Pending Folate Pending Thyroid Stimulating Hormone (TSH) Pending Free Thyroxine Index 1.89 Thyroxine (T4) 3.7 L Triiodothyronine (T3) Uptake 51.0 H Test 09/25/16 05:50 09/25/16 09:40 09/25/16 09:56 Bedside Glucose 221 H 224 H Lactic Acid Level 2.7 H Medications Medications Current Medications Metoclopramide HCl (Reglan) 10 mg Q6H PRN IV NAUSEA AND/OR VOMITING; Start at 03:00 Acetaminophen (Tylenol Supp) 650 mg Q4H PRN [place] PAIN LEVEL 1-3 OR FEVER; Start 09/24/16 at 03:00 Eye Lubricant 1 drop 1 drop TID BOTH EYES Last administered on 09/25/16 08:18 ; Admin Dose 1 DROP; Start 09/24/16 at 09:00 Norepinephrine 16 mg/Dextrose 500 ml @ 1.87 mls/hr TITRATE IV Last administered on 09/25/16 06:25; Admin Dose 56.25 MLS/HR; Start 09/24/16 at 04: 00 Vasopressin/ Dextrose (Vasostrict/D5W) 60 ml @ 1.2 mls/hr Q12H IV Last administered on 09/25/16 08:22; Admin Dose 2.4 MLS/HR; Start 09/24/16 at 15:30 Sodium Hypochlorite 1 applic 1 applic BID IRR Last administered on 09/25/16 08 :18; Admin Dose 1 APPLIC; Start 09/24/16 at 21:00 Piperacillin Sod/ Tazobactam Sod (Zosyn 2.25gm/ 50ml (Pmx)) 50 ml @ 100 mls/hr Q8 IVPB Last administered on 09/25/16 05:43; Admin Dose 100 MLS/HR; Start at 17:15 Pantoprazole 40 mg 40 mg BID@06,18 IV Last administered on 09/25/16 05:43; Admin Dose 40 MG; Start 09/24/16 at 18:00 Vancomycin HCl (Vancocin) 250 ml @ 125 mls/hr Q36H IVPB Last administered on 09:58; Admin Dose 125 MLS/HR; Start 09/25/16 at 10:00 Collagenase (Santyl) 1 applic DAILY TOP Last administered on 09/25/16 09:58; Admin Dose 1 APPLIC; Start 09/24/16 at 20:30 Insulin Aspart NOVOLOG *MILD* ALGORI... Q4 SC Last administered on 09/25/16 09 :59; Admin Dose 3 UNIT; Start 09/24/16 at 21:00 Phenylephrine HCl/ Dextrose (Eulogio-Syneph/D5W) 500 ml @ 75 mls/hr TITRATE IV Last administered on 09/24/16 22:04; Admin Dose 37.5 MLS/HR; Start 09/24/16 at 21:00 Miscellaneous Information 1 ea NOTE XX ; Start 09/24/16 at 21:00 Glucose (Glutose) 15 gm Q15M PRN PO DECREASED GLUCOSE; Start 09/24/16 at 21:00 Glucose (Glutose) 22.5 gm Q15M PRN PO DECREASED GLUCOSE; Start 09/24/16 at 21: 00 Dextrose (D50w Syringe) 25 ml Q15M PRN IV DECREASED GLUCOSE; Start 09/24/16 at 21:00 Dextrose (D50w Syringe) 50 ml Q15M PRN IV DECREASED GLUCOSE; Start 09/24/16 at 21:00 Glucagon (Glucagen) 1 mg Q15M PRN IM DECREASED GLUCOSE; Start 09/24/16 at 21:00 Glucose 15 gm 15 gm Q15M PRN BUCCAL DECREASED GLUCOSE; Start 09/24/16 at 21:00 Acetaminophen 100 ml @ 400 mls/hr Q6H PRN IVPB FEVER Last administered on 09/24 22:00; Admin Dose 400 MLS/HR; Start 09/24/16 at 22:00 Dextrose/Sodium Chloride 1,000 ml @ 150 mls/hr Q6H40M IV Last administered on 09/25/16 12:35; Admin Dose 150 MLS/HR; Start 09/25/16 at 01:00 Potassium Chloride/Dextrose (KCl/D5W) 265 ml @ 88.333 mls/ hr ONCE ONCE IVPB Last administered on 09/25/16 12:40; Admin Dose 88.333 MLS/HR; Start 09/25/16 at 11:00; Stop 09/25/16 at 13:59 JOSEF CASTRO MD Sep 25, 2016 12:53
[2016-09-25 13:38] LABS: FOLATE > 20.0 ng/ml (2.8-20.0)
[2016-09-25] MEDS ORDERED: INSULIN GLARGINE [LANtus] 3 ML PEN SC ONE (15:30)
[2016-09-25 16:20] LABS: POTASSIUM 3.3 mmol/L (3.5-5.1)
[2016-09-25 16:22] LABS: CREATININE 1.69 mg/dl (0.61-1.24)
[2016-09-25 16:23] LABS: CALCIUM 7.3 mg/dl (8.4-10.2)
--- NOTE | 2016-09-25 17:20 | RADRPT ---
Echocardiogram Report Patient Name: ADDY VIGIL Gender: Male Date: 1935 Study Date: 25-Sep-2016 Communications Department Chair: Batool Camp RDCS Location: 114 Ref. Physician: ROULA DEL TORO Quality: Technically Difficult Study Procedures: Transthoracic echocardiogram with complete 2D, M-Mode, and doppler examination. Indications: Sepsis. Shock. 2D/M Mode Doppler Measurement Value Normal Ranges Measurement Value Normal Ranges LVIDd 2D 5.8 3.5 - 5.6 cm RANDAL Vmax 1.1 cm2 LVIDs 2D 5.2 2.1 - 4.1 cm RANDAL VTI 1.1 cm2 LVPWd 2D 0.9 0.6 - 1.1 cm AV Mean Pablo 2.6 m/sec IVSd 2D 0.9 0.6 - 1.1 cm AV Mean PG 31.1 mmHg AoR Diam 2D 3.4 2.0 - 3.7 cm AV Peak Pablo 3.5 m/sec EDV 2D 164.2 cm3 AV Peak PG 48.2 mmHg ESV 2D 138.7 cm3 AV VTI 70.0 cm LA Dimen 2D 2.8 2.3 - 4.0 cm LVOT Mean Pablo 0.8 m/sec LVOT Diam 2.0 cm LVOT Mean PG 2.7 mmHg LVOT Peak Pablo 1.2 m/sec LVOT Peak PG 5.8 mmHg LVOT VTI 22.0 cm MV E Peak Pablo 0.6 m/sec MV A Peak Pablo 0.7 m/sec MV E/A 0.8 MV Decel Time 195 msec MV Decel Garvin 3 MV E/A 0.8 Findings Left Ventricle: Normal left ventricular systolic function. Normal left ventricular wall thickness. Mild enlargement of left ventricle cavity. Ejection fraction is visually estimated at 55 %. Tissue Doppler/Mitral Doppler indices are consistent with impaired relaxation (Stage I diastolic dysfunction). Right Ventricle: Normal right ventricular size. Normal right ventricular systolic function. Left Atrium: The left atrium is normal in size. Right Atrium: The right atrium is normal in size. Mitral Valve: Mitral valve leaflets appear mildly thickened. Mild mitral annular calcification. Trace mitral regurgitation. Aortic Valve: Moderate aortic stenosis. Aortic valve Max velocity 3.47 m/sec. Max PG 48.20 mmHg. Mean PG 31.10 mmHg. Aortic cusps appear moderately calcified. Trace aortic valve regurgitation. Tricuspid Valve: Normal appearance and function of the tricuspid valve with trace physiologic regurgitation. Pulmonic Valve: Normal pulmonic valve appearance. Pericardium: Normal pericardium with no significant pericardial effusion. Aorta: Normal aortic root. IVC: Normal size and normal respiratory collapse consistent with normal right atrial pressure. Conclusions 1.Normal left ventricular systolic function. Normal left ventricular wall thickness. Mild enlargement of left ventricle cavity. Ejection fraction is visually estimated at 55 %. Tissue Doppler/Mitral Doppler indices are consistent with impaired relaxation (Stage I diastolic dysfunction). 2.Normal right ventricular size. Normal right ventricular systolic function. 3.The left atrium is normal in size. 4.The right atrium is normal in size. 5.Moderate aortic stenosis. Aortic cusps appear moderately calcified. Trace aortic valve regurgitation. 6.No significant valvular stenosis or regurgitation seen of remaining visualized valves. 7.Normal pericardium with no significant pericardial effusion. Electronically Signed By: Ryder Wild 25-Sep-2016 17:19:45 -0700 Patient Name: ADDY VIGIL Study Date: 25-Sep-2016 [id number]
--- NOTE | 2016-09-25 17:23 | CONS ---
DATE OF ADMISSION: 09/24/2016 DATE OF CONSULTATION: 09/25/2016 REASON FOR CONSULTATION: Antibiotic management. HISTORY OF PRESENT ILLNESS: Aaron Wise is a 81-year-old male who was brought in from [facility] for low blood pressure with blood pressure 60s/40s. He also had an O2 saturation of 86%. His past problems include: 1. Ventilator-dependent respiratory failure. 2. Hypertension. 3. Atrial fibrillation. 4. End-stage renal disease. 5. Hypothyroidism. 6. Anemia. 7. Multiple pressure ulcers. 8. GERD. 9. Encephalopathy. 10. Kidney stones. 11. History of, cerebrovascular disease. 12. Pneumonitis. 13. Non-STEMI. 14. Coronary artery disease. 15. Hyperlipidemia 16. Non-rheumatic mitral valve insufficiency. The patient comes in with presumed sepsis. He has a tracheostomy and a G-tube. PAST MEDICAL HISTORY: Operations as outlined. FAMILY HISTORY: Noncontributory. SOCIAL HISTORY: Does not smoke, drink or abuse drugs. ALLERGIES: NONE TO PENICILLIN, SULFA OR FOODS. MEDICATIONS: Per chart. REVIEW OF SYSTEMS: As per HPI. PHYSICAL EXAMINATION: GENERAL: The patient is a frail, alert male, nonverbal male who is on a ventilator. VITAL SIGNS: He is afebrile. Blood pressure on admission was 68/37. SKIN: Without generalized rash. HEENT: Within normal limits. NECK: Nontender. He has a tracheostomy without exudate. LYMPH NODES: None palpable. CHEST: Coarse rhonchi and rales at the bases, left greater than right. HEART: Without murmur or gallop. ABDOMEN: Soft, nontender, without organosplenomegaly or masses. EXTREMITIES: Without cyanosis, clubbing. He has bilateral pedal edema 1+. He has some contracture s. RECTAL AND GENITAL: Deferred. NEUROLOGICAL: No focal neurological abnormalities. LABORATORY DATA: On admission, white count of 40.6, H and H 9 and 35.1, platelet count 554,000. BU N and creatinine 160/2.91. IMPRESSION AND PLAN: Patient was seen by Dr. Thornton. Chest x-ray showed right midlung infiltrates. The patient was started on antibiotic therapy in the form of vancomycin and Zosyn. He also is on n orepinephrine to maintain his blood pressure. His chest x-ray on 09/24/2016 showed left subclavian central venous catheter, tracheostomy, AV patchy opacities, bilaterally, moderate left and small rig ht pleural effusions, underlying atelectasis, no pneumothorax. Ultrasound shows moderate bilateral hydronephrosis, bladder is distended without focal lesions. MICROBIOLOGY: The patient has positive blood cultures from gram-negative rods from the urine. His urine shows gram-negative rods. Blood cultures show gram-negative rods. Respiratory cultures show gram-negative rods. The patient is on Zosyn. We may want to stop the vancomycin if this persists i f we only grow gram-negative rods. The patient was seen by Dr. Garcia who noted anemia microcytic, probable GI bleed, coffee-ground drainage from the G-tube. He was seen in consultation by Dr. Wild in cardiology and also by Dr. Iraj saez in GI. The patient still with a white count of 38.8. Assessment was upper GI bleed. EGD wou ld be required if there is evidence of active bleeding. We will continue him on current therapy wit h vancomycin and Zosyn and then adjust depending on what we grow in the blood and urine. Dictated By: YAQUELIN ESTRELLA MD, JD/ELIZABETH Conf#: [id number] DID#: [id number]
[2016-09-25] MEDS ORDERED: POTASSIUM CHLORIDE 250 ML IVPB ONE (18:30)
[2016-09-25] MEDS: MUPIROCIN 2% 22 GM OINT TOP SCH (20:33)
[2016-09-26] VITALS (95 sets, daily range): BP systolic 81–123; BP diastolic 47–76; PULSE 78–100; RESP 0–35
[2016-09-26] MEDS: IPRATROPIUM (HFA) 12.9 GM INHALER INH SCH ×6 (00:37→21:00)
[2016-09-26] MEDS: ALBUTEROL HFA 8 GM INHALER INH SCH ×6 (00:37→21:00)
[2016-09-26] MEDS: INSULIN ASPART [NOVOLOG] 3 ML PEN SC SCH ×6 (00:52→21:00)
--- NOTE | 2016-09-26 02:23 | PN ---
Date/Time of Note Date/Time of Note DATE: 09/25/16 TIME: 22:15 Assessment/Plan Lines/Catheters IV Catheter Type (from [facility]): Central Line Cee in Place (from [facility]): Yes Assessment/Plan Chief Complaint/Hosp Course 1. Shock (septic (UTI, pneumonia) plus or minus hypovolemic) -Judicious fluid management -Supportive measures -Antibiotics -Transfuse as needed -Consider hospice 2. Multiple decubitus ulcerations with necrotic tissue and deep tissue injury -Offload -Local care -Vitamin C -Eventual nutritional optimization -Debridement when and if stabilizes 3. Contracted state with functional quadriplegia -Offloading -Nutritional optimization when possible 4. Anemia -Monitor 5. Ventilator dependent respiratory failure -Ventilator management and pulmonary toilet 6. Renal insufficiency -Judicious fluid management -Avoid nephrotoxic agents 7. Coronary artery disease and history of non-ST elevation [place] -Cardiac optimization Thank you Problems: Subjective 24 Hr Interval Summary Pressors reduced. No fevers or chills. No cough. No seizure. No rash. No vomiting. No blood per mouth or rectum. No bloating. No seizures. Exam/Review of Systems Vital Signs Vitals Vital Signs Date Time Temp Pulse Resp B/P Pulse Ox O2 Delivery O2 Flow Rate FiO2 09/26/16 00:37 79 17 100 30 09/25/16 22:45 103/54 Mechanical Ventilator 09/25/16 19:30 98.9 Intake and Output 09/25/16 09/25/16 09/26/16 15:00 23:00 07:00 Intake Total 2512.05 ml 1953.05 ml 183.75 ml Output Total 450 ml 625 ml 75 ml Balance 2062.05 ml 1328.05 ml 108.75 ml Exam Constitutional: No alert, No oriented Psych: No nl mood/affect Head: atraumatic, normocephalic Eyes: nl conjunctiva, No EOMI, No icteric ENMT: mucosa pink and moist, nl external ears & nose Neck: jvd, other (Trach in place), No non-tender, No supple Respiratory: No congested cough, No labored breathing Cardiovascular: No regular rate and rhythm Gastrointestinal: non-tender, other (PEG in place), soft, No rebound or guarding Musculoskeletal: No joint tenderness, No nl extremities to inspection, No nl gait and stance Extremities: No calf tenderness, No cyanosis Neurological: No nl mental status, No nl speech, No nl strength Skin: rash or lesions (Multiple decubitus ulcerations with debris, necrotic tissue, deep tissue injury), No diaphoresis, No nl turgor Lymph: nontender Results Result Diagram: 09/25/16 0415 09/25/16 1550 EVA GUARDADO MD Sep 26, 2016 02:22
--- NOTE | 2016-09-26 02:27 | PN ---
Date/Time of Note Date/Time of Note DATE: 09/26/16 TIME: 02:27 Assessment/Plan Lines/Catheters IV Catheter Type (from [facility]): Central Line Cee in Place (from [facility]): Yes Assessment/Plan Chief Complaint/Hosp Course 1. Shock (septic (UTI, pneumonia) plus or minus hypovolemic) -Judicious fluid management -Supportive measures -Antibiotics -Transfuse as needed -Consider hospice 2. Multiple decubitus ulcerations with necrotic tissue and deep tissue injury -Offload -Local care -Vitamin C -Eventual nutritional optimization -Debridement when and if stabilizes 3. Contracted state with functional quadriplegia -Offloading -Nutritional optimization when possible 4. Anemia -Monitor 5. Ventilator dependent respiratory failure -Ventilator management and pulmonary toilet 6. Renal insufficiency -Judicious fluid management -Avoid nephrotoxic agents 7. Coronary artery disease and history of non-ST elevation NM -Cardiac optimization Thank you Problems: Subjective 24 Hr Interval Summary Pressors reduced. No fevers or chills. No cough. No seizure. No rash. No vomiting. No blood per mouth or rectum. No bloating. No seizures. Exam/Review of Systems Vital Signs Vitals Vital Signs Date Time Temp Pulse Resp B/P Pulse Ox O2 Delivery O2 Flow Rate FiO2 09/26/16 00:37 79 17 100 30 09/25/16 22:45 103/54 Mechanical Ventilator 09/25/16 19:30 98.9 Intake and Output 09/25/16 09/25/16 09/26/16 15:00 23:00 07:00 Intake Total 2512.05 ml 1953.05 ml 183.75 ml Output Total 450 ml 625 ml 75 ml Balance 2062.05 ml 1328.05 ml 108.75 ml Exam Free Text/Dictation Constitutional: No alert, No oriented Psych: No nl mood/affect Head: atraumatic, normocephalic Eyes: nl conjunctiva, No EOMI, No icteric ENMT: mucosa pink and moist, nl external ears & nose Neck: jvd, other (Trach in place), No non-tender, No supple Respiratory: No congested cough, No labored breathing Cardiovascular: No regular rate and rhythm Gastrointestinal: non-tender, other (PEG in place), soft, No rebound or guarding Musculoskeletal: No joint tenderness, No nl extremities to inspection, No nl gait and stance Extremities: No calf tenderness, No cyanosis Neurological: No nl mental status, No nl speech, No nl strength Skin: rash or lesions (Multiple decubitus ulcerations with debris, necrotic tissue, deep tissue injury), No diaphoresis, No nl turgor Lymph: nontender Results Result Diagram: 09/25/16 0415 09/25/16 1550 EVA GUARDADO MD Sep 26, 2016 02:27
[2016-09-26] MEDS: VASOPRESSIN 60 UNIT in DEXTROSE 5% 57 ML IV SCH ×2 (03:30→15:20)
--- NOTE | 2016-09-26 03:34 | CONS ---
DATE OF ADMISSION: 09/24/2016 DATE OF CONSULTATION: 09/24/2016 TYPE OF CONSULTATION: Surgical. REFERRING PHYSICIAN: Maggie Cruz MD CHIEF COMPLAINT: 1. Multiple necrotic decubitus ulcers and deep tissue injuries. 2. Significant leukocytosis. 3. Anemia. 4. Sepsis with shock. 5. Shock (sepsis plus or minus hypovolemic). 6. Contracted state. 7. Functional quadriplegia. 8. Lactic acidosis. 9. Significant electrolyte abnormalities. 10. Renal insufficiency. HISTORY OF PRESENT ILLNESS: Aaron Wise is a 81-year-old male with significant comorbidities wh o [facility] hypotension initially systolics in the 60s/d iastolic 40s with hypoxemia. The patient is unable to give any information and it is all obtained f rom chart staff. He did not have any fevers or chills. No cough, seizure, blood per mouth or rectu m. No bloating. No rashes. He has multiple necrotic wounds with deep tissue injury. No bloating. No joint swelling. The patient is in the ICU on multiple pressors and surgical consult is obtaine d for further evaluation and treatment. PAST MEDICAL HISTORY: 1. Ventilator-dependent respiratory failure. 2. History of hypertension, currently significantly hypotensive. 3. Atrial fibrillation. 4. Renal insufficiency. 5. Hypothyroidism. 6. Anemia. 7. Sepsis. 8. Multiple decubitus ulcerations and deep tissue injuries with necrotic tissue. 9. GERD. 10. Encephalopathy. 11. Functional quadriplegia. 12. Renal calculus. 13. CVA history. 14. Pneumonitis. 15. Non-ST elevation myocardial infarction. 16. ASHD. 17. Hyperlipidemia. 18. Non-rheumatic mitral valve insufficiency. 19. Dysphagia. 20. Contracted state. 21. Significant lactic acidosis. 22. Significant hypernatremia. 23. Hypokalemia. 24. Hypoalbuminemia. 25. Coagulopathy. 26. Urinary tract infection. PAST SURGICAL HISTORY: 1. PEG. 2. Trache. 3. Wound care. MEDICATIONS: As per MAR. ALLERGIES: As per chart. SOCIAL HISTORY: No current alcohol, drugs or tobacco. FAMILY HISTORY: Noncontributory. REVIEW OF SYSTEMS: A 12-point review of systems negative unless addressed in the HPI. PHYSICAL EXAMINATION: VITAL SIGNS: Temperature 102.3, pulse in the 100s, blood pressure 88/44. GENERAL: Noncommunicative contracted ventilator. HEENT: Pupils are sluggish. No scleral icterus. Mucous membranes are somewhat dry. NECK: Minimal JVD. No crepitus. Trachea midline. Trache in place. PULMONARY: No wheezing. Normal respiratory effort. CARDIAC: S1, S2 present and tachy. ABDOMEN: Soft. PEG in place. EXTREMITIES: Contracted. VASCULAR: Capillary refill is over 3 seconds. NEUROLOGIC: Does not follow commands, noncommunicative. PSYCHIATRIC: Noncommunicative. SKIN: No rashes. No jaundice. Multiple decubitus ulcers with debris and necrotic tissue. Deep ti ssue injury. LABORATORY AND RADIOGRAPHIC: As per chart and HPI. ASSESSMENT AND PLAN: 1. Shock (septic plus or minus hypovolemia). Antibiotics judicious fluid management. Supportive measures. Antibiotics. Transfuse as needed. 2. Multiple decubitus ulcerations with necrotic tissue and deep tissue injury. Offload. Local care. Vitamin C. Eventual nutritional optimization. Debridement as needed. 3. Contracted state with functional quadriplegia. Offloading. Nutritional optimization when possible. 4. Anemia. Monitor. 5. Ventilator-dependent respiratory failure. Ventilator management and pulmonary toilet. 6. Renal insufficiency. Judicious fluid management. Avoid nephrotoxic agents. 7. Coronary artery disease and history of non-ST elevation myocardial infarction. Cardiac optimization. Thank you very much for consulting me in this patient's care, this is my on Aaron Wise [phone]. Dictated By: EVA GUARDADO MD SK/NTS Conf#: [id number] DID#: [id number] CC: FELIX BLAKE MD; MAGGIE CRUZ MD;*EndCC*
[2016-09-26] MEDS: DEXTROSE 5%-0.45% NACL 1,000 ML IV SCH ×3 (03:48→21:10)
[2016-09-26 04:38] LABS: ADD SCAN DIFF NO
[2016-09-26 04:43] LABS: ABNORMAL IP MESSAGE 1; BASOPHILS % 0.2 % (0.0-2.0); EOSINOPHILS # 0.2 10^3/ul (0.0-0.5); EOSINOPHILS % 0.9 % (0.0-7.0); HEMATOCRIT 27.5 % (42.0-52.0); HEMOGLOBIN 7.8 g/dl (14.0-18.0); LYMPHOCYTES # 1.2 10^3/ul (0.8-2.9); LYMPHOCYTES % 5.1 % (15.0-51.0); MEAN CORPUSCULAR HEMOGLOBIN 22.9 pg (29.0-33.0); MEAN CORPUSCULAR HGB CONC 28.4 g/dl (32.0-37.0); MEAN CORPUSCULAR VOLUME 80.6 fl (82.0-101.0); MEAN PLATELET VOLUME 12.5 fl (7.4-10.4); MONOCYTE # 0.7 10^3/ul (0.3-0.9); MONOCYTES % 2.7 % (0.0-11.0); NEUTROPHIL # 21.5 10^3/ul (1.6-7.5); NEUTROPHILS % 90.3 % (39.0-77.0); NUCLEATED RED BLOOD CELLS% 0.1 /100WBC (0.0-0.0); PLATELET COUNT 533 10^3/UL (140-415); RED BLOOD COUNT 3.41 10^6/ul (4.70-6.10); RED CELL DISTRIBUTION WIDTH 18.6 % (11.5-14.5); WHITE BLOOD COUNT 23.8 10^3/ul (4.8-10.8)
[2016-09-26 04:51] LABS: ALBUMIN 2.1 g/dl (3.3-4.9); ALBUMIN 2.3 g/dl (3.3-4.9)
[2016-09-26 04:52] LABS: POTASSIUM 3.7 mmol/L (3.5-5.1)
[2016-09-26 04:53] LABS: BILIRUBIN,DIRECT 0.5 mg/dl (0.00-0.20); BILIRUBIN,TOTAL 0.5 mg/dl (0.2-1.3)
[2016-09-26 04:54] LABS: CREATININE 1.39 mg/dl (0.61-1.24); TOTAL PROTEIN 4.8 g/dl (6.1-8.1)
[2016-09-26] MEDS: PIPER-TAZO 2.25 GM (PMX) 50 ML IVPB SCH ×3 (04:54→21:12)
[2016-09-26 04:55] LABS: CALCIUM 7.2 mg/dl (8.4-10.2); PHOSPHORUS 3.9 mg/dl (2.5-4.9)
[2016-09-26] MEDS: PANTOPRAZOLE 40 MG INJ IV SCH ×2 (04:55→17:12)
[2016-09-26] MEDS: SODIUM HYPOCHLORITE 0.125% 473 ML BTL IRR SCH ×2 (09:55→21:11)
[2016-09-26] MEDS: ARTIFICIAL TEARS 15 ML OPH BOTH EYES SCH ×3 (09:55→21:10)
[2016-09-26] MEDS: MUPIROCIN 2% 22 GM OINT TOP SCH ×2 (09:56→21:12)
[2016-09-26] MEDS: COLLAGENASE 30 GM TUBE TOP SCH ×2 (09:57→21:11)
--- NOTE | 2016-09-26 10:29 | CONS ---
Date/Time of Note Date/Time of Note DATE: 09/26/16 TIME: 10:24 Consult Date/Type/Reason Admit Date/Time Sep 24, 2016 at 03:19 Initial Consult Date 09/24/16 Type of Consultation: pulmonary ICU Ordering Provider: ROULA DEL TORO Subjective Patient remains stable on mechanical ventilation with adequate oxygenation Currently still requiring vasopressor support Slightly elevated residuals Objective Vital Signs Date Time Temp Pulse Resp B/P Pulse Ox O2 Delivery O2 Flow Rate FiO2 09/26/16 10:00 83 20 107/59 100 Mechanical Ventilator 09/26/16 09:08 30 09/26/16 08:00 98.4 Intake and Output 09/25/16 09/25/16 09/26/16 15:00 23:00 07:00 Intake Total 2512.05 ml 1953.05 ml 1497.48 ml Output Total 450 ml 625 ml 635 ml Balance 2062.05 ml 1328.05 ml 862.48 ml Exam PHYSICAL EXAMINATION GENERAL: Elderly gentleman, on mechanical ventilation, VITAL SIGNS: see below. HEENT: Pupils equal, round, and reactive to light. Tracheostomy site clean and intact. CARDIAC: S1, S2, 2 systolic ejection murmur Respiratory diminished air entry bilaterally no rales or wheezes ABDOMEN: Mildly distended. No bowel sounds. EXTREMITIES: No cyanosis, clubbing edema +1 NEUROLOGIC: Generalized weakness Results/Medications Result Diagram: 09/26/16 0400 09/26/16 0400 Results 24 hrs Laboratory Tests Test 09/25/16 14:00 09/25/16 14:26 09/25/16 15:50 09/25/16 17:36 Stool Occult Blood NEGATIVE Bedside Glucose 173 140 Sodium Level 152 H Potassium Level 3.3 L Chloride Level 109 Carbon Dioxide Level 30 Anion Gap 16 Blood Urea Nitrogen 134 H Creatinine 1.69 H Glucose Level 133 # Calcium Level 7.3 L Test 09/25/16 20:32 09/26/16 00:50 09/26/16 04:00 09/26/16 04:26 Bedside Glucose 156 148 153 White Blood Count 23.8 #H Red Blood Count 3.41 L Hemoglobin 7.8 L Hematocrit 27.5 L Mean Corpuscular Volume 80.6 L Mean Corpuscular Hemoglobin 22.9 L Mean Corpuscular Hemoglobin Concent 28.4 L Red Cell Distribution Width 18.6 H Platelet Count 533 #H Mean Platelet Volume 12.5 H Neutrophils % 90.3 H Lymphocytes % 5.1 L Monocytes % 2.7 Eosinophils % 0.9 Basophils % 0.2 Nucleated Red Blood Cells % 0.1 H Neutrophils # 21.5 H Lymphocytes # 1.2 Monocytes # 0.7 Eosinophils # 0.2 Basophils # 0.0 Nucleated Red Blood Cells # 0.0 Sodium Level 150 H Potassium Level 3.7 Chloride Level 110 Carbon Dioxide Level 28 Anion Gap 16 Blood Urea Nitrogen 114 H Creatinine 1.39 H Glucose Level 114 Lactic Acid Level 2.4 H Calcium Level 7.2 L Phosphorus Level 3.9 Total Bilirubin 0.5 Direct Bilirubin 0.50 H Indirect Bilirubin 0.0 Aspartate Amino Transf (AST/SGOT) 78 H Alanine Aminotransferase (ALT/SGPT) 44 Alkaline Phosphatase 114 Total Protein 4.8 L Albumin 2.1 L Test 09/26/16 08:54 09/26/16 09:55 Lab Scanned Report REFERENCE LAB Bedside Glucose 158 Medications Current Medications Metoclopramide HCl (Reglan) 10 mg Q6H PRN IV NAUSEA AND/OR VOMITING; Start at 03:00 Acetaminophen (Tylenol Supp) 650 mg Q4H PRN [place] PAIN LEVEL 1-3 OR FEVER; Start 09/24/16 at 03:00 Eye Lubricant 1 drop 1 drop TID BOTH EYES Last administered on 09/26/16 09:55 ; Admin Dose 1 DROP; Start 09/24/16 at 09:00 Norepinephrine 16 mg/Dextrose 500 ml @ 1.87 mls/hr TITRATE IV Last administered on 09/26/16 04:58; Admin Dose 1.87 MLS/HR; Start 09/24/16 at 04:00 Vasopressin/ Dextrose (Vasostrict/D5W) 60 ml @ 1.2 mls/hr Q12H IV Last administered on 09/25/16 08:22; Admin Dose 2.4 MLS/HR; Start 09/24/16 at 15:30 Sodium Hypochlorite 1 applic 1 applic BID IRR Last administered on 09/26/16 09 :55; Admin Dose 1 APPLIC; Start 09/24/16 at 21:00 Piperacillin Sod/ Tazobactam Sod (Zosyn 2.25gm/ 50ml (Pmx)) 50 ml @ 100 mls/hr Q8 IVPB Last administered on 09/26/16 04:54; Admin Dose 100 MLS/HR; Start at 17:15 Pantoprazole 40 mg 40 mg BID@06,18 IV Last administered on 09/26/16 04:55; Admin Dose 40 MG; Start 09/24/16 at 18:00 Vancomycin HCl (Vancocin) 250 ml @ 125 mls/hr Q36H IVPB Last administered on 09:58; Admin Dose 125 MLS/HR; Start 09/25/16 at 10:00 Collagenase (Santyl) 1 applic DAILY TOP Last administered on 09/26/16 09:57; Admin Dose 1 APPLIC; Start 09/24/16 at 20:30 Insulin Aspart NOVOLOG *MILD* ALGORI... Q4 SC Last administered on 09/26/16 09 :57; Admin Dose 1 UNIT; Start 09/24/16 at 21:00 Phenylephrine HCl/ Dextrose (Eulogio-Syneph/D5W) 500 ml @ 75 mls/hr TITRATE IV Last administered on 09/24/16 22:04; Admin Dose 37.5 MLS/HR; Start 09/24/16 at 21:00 Miscellaneous Information 1 ea NOTE XX ; Start 09/24/16 at 21:00 Glucose (Glutose) 15 gm Q15M PRN PO DECREASED GLUCOSE; Start 09/24/16 at 21:00 Glucose (Glutose) 22.5 gm Q15M PRN PO DECREASED GLUCOSE; Start 09/24/16 at 21: 00 Dextrose (D50w Syringe) 25 ml Q15M PRN IV DECREASED GLUCOSE; Start 09/24/16 at 21:00 Dextrose (D50w Syringe) 50 ml Q15M PRN IV DECREASED GLUCOSE; Start 09/24/16 at 21:00 Glucagon (Glucagen) 1 mg Q15M PRN IM DECREASED GLUCOSE; Start 09/24/16 at 21:00 Glucose 15 gm 15 gm Q15M PRN BUCCAL DECREASED GLUCOSE; Start 09/24/16 at 21:00 Acetaminophen 100 ml @ 400 mls/hr Q6H PRN IVPB FEVER Last administered on 09/24 22:00; Admin Dose 400 MLS/HR; Start 09/24/16 at 22:00 Dextrose/Sodium Chloride (D5-1/2ns) 1,000 ml @ 100 mls/hr Q10H IV Last administered on 09/26/16 10:01; Admin Dose 100 MLS/HR; Start 09/25/16 at 01:00 Mupirocin (Bactroban) 1 applic BID TOP Last administered on 09/26/16 09:56; Admin Dose 1 APPLIC; Start 09/25/16 at 21:00 Assessment/Plan Chief Complaint/Hosp Course Assessment 1. Septic shock likely secondary to pneumonia 2. Significant anemia 3. Vent dependent respiratory failure 4. Dysphagia with G-tube 5. Hypernatremia 6. History of renal insufficiency Plan 1. Continue mechanical ventilation 2. Continue antibiotics pending culture results 3. Continue vasopressor support, transfusion 1 unit packed red blood cells 4. Continue renal recommendations Disposition Continue ICU care Patient remains full code Problems: ABBI DELCID MD, [facility] Sep 26, 2016 10:29
--- NOTE | 2016-09-26 11:26 | CONS ---
Date/Time of Note Date/Time of Note DATE: 09/26/16 TIME: 11:24 Assessment/Plan Assessment/Plan Additional Assessment/Plan Severe septic shock Preserved ejection fraction Moderate aortic stenosis Respiratory failure Coronary artery disease Anemia Acute kidney injury -Patient's IV pressor requirements are decreasing, titrate to maintain SBP greater than 90 and/or map above 60. Fluid management as per our nephrology colleagues. Continue to hold any antihypertensives at the current time. Antibiotics as per infectious disease. Consultation Date/Type/Reason Admit Date/Time Sep 24, 2016 at 03:19 Initial Consult Date 09/24/16 Type of Consultation: cv Referring Provider: ROULA DEL TORO 24 HR Interval Summary Free Text/Dictation Patient seen and examined. Discussed with nursing staff, IV pressor requirements are decreasing. No new cardiac issues Exam/Review of Systems Vital Signs Vitals Vital Signs Date Time Temp Pulse Resp B/P Pulse Ox O2 Delivery O2 Flow Rate FiO2 09/26/16 11:15 85 17 100 30 09/26/16 10:45 104/61 Mechanical Ventilator 09/26/16 08:00 98.4 Intake and Output 09/25/16 09/25/16 09/26/16 15:00 23:00 07:00 Intake Total 2512.05 ml 1953.05 ml 1497.48 ml Output Total 450 ml 625 ml 635 ml Balance 2062.05 ml 1328.05 ml 862.48 ml Exam Awake, no apparent distress Head: normocephalic Neck: other (Tracheostomy) Respiratory: other (Coarse breath sounds bilaterally, no wheezing) Cardiovascular: other (S1-S2 heard), regular rate and rhythm, systolic murmur Gastrointestinal: bowel sounds, non-tender, other (No grimacing or guarding with palpation), soft Extremities: edema (Trace edema), other (No cyanosis) Results Result Diagram: 09/26/16 0400 09/26/16 0400 Results 24 hrs Laboratory Tests Test 09/25/16 14:00 09/25/16 14:26 09/25/16 15:50 09/25/16 17:36 Stool Occult Blood NEGATIVE Bedside Glucose 173 140 Sodium Level 152 H Potassium Level 3.3 L Chloride Level 109 Carbon Dioxide Level 30 Anion Gap 16 Blood Urea Nitrogen 134 H Creatinine 1.69 H Glucose Level 133 # Calcium Level 7.3 L Test 09/25/16 20:32 09/26/16 00:50 09/26/16 04:00 09/26/16 04:26 Bedside Glucose 156 148 153 White Blood Count 23.8 #H Red Blood Count 3.41 L Hemoglobin 7.8 L Hematocrit 27.5 L Mean Corpuscular Volume 80.6 L Mean Corpuscular Hemoglobin 22.9 L Mean Corpuscular Hemoglobin Concent 28.4 L Red Cell Distribution Width 18.6 H Platelet Count 533 #H Mean Platelet Volume 12.5 H Neutrophils % 90.3 H Lymphocytes % 5.1 L Monocytes % 2.7 Eosinophils % 0.9 Basophils % 0.2 Nucleated Red Blood Cells % 0.1 H Neutrophils # 21.5 H Lymphocytes # 1.2 Monocytes # 0.7 Eosinophils # 0.2 Basophils # 0.0 Nucleated Red Blood Cells # 0.0 Sodium Level 150 H Potassium Level 3.7 Chloride Level 110 Carbon Dioxide Level 28 Anion Gap 16 Blood Urea Nitrogen 114 H Creatinine 1.39 H Glucose Level 114 Lactic Acid Level 2.4 H Calcium Level 7.2 L Phosphorus Level 3.9 Total Bilirubin 0.5 Direct Bilirubin 0.50 H Indirect Bilirubin 0.0 Aspartate Amino Transf (AST/SGOT) 78 H Alanine Aminotransferase (ALT/SGPT) 44 Alkaline Phosphatase 114 Total Protein 4.8 L Albumin 2.1 L Test 09/26/16 08:54 09/26/16 09:55 Lab Scanned Report REFERENCE LAB Bedside Glucose 158 Medications Medications Current Medications Metoclopramide HCl (Reglan) 10 mg Q6H PRN IV NAUSEA AND/OR VOMITING; Start at 03:00 Acetaminophen (Tylenol Supp) 650 mg Q4H PRN [place] PAIN LEVEL 1-3 OR FEVER; Start 09/24/16 at 03:00 Eye Lubricant 1 drop 1 drop TID BOTH EYES Last administered on 09/26/16 09:55 ; Admin Dose 1 DROP; Start 09/24/16 at 09:00 Norepinephrine 16 mg/Dextrose 500 ml @ 1.87 mls/hr TITRATE IV Last administered on 09/26/16 04:58; Admin Dose 1.87 MLS/HR; Start 09/24/16 at 04:00 Vasopressin/ Dextrose (Vasostrict/D5W) 60 ml @ 1.2 mls/hr Q12H IV Last administered on 09/25/16 08:22; Admin Dose 2.4 MLS/HR; Start 09/24/16 at 15:30 Sodium Hypochlorite 1 applic 1 applic BID IRR Last administered on 09/26/16 09 :55; Admin Dose 1 APPLIC; Start 09/24/16 at 21:00 Piperacillin Sod/ Tazobactam Sod (Zosyn 2.25gm/ 50ml (Pmx)) 50 ml @ 100 mls/hr Q8 IVPB Last administered on 09/26/16 04:54; Admin Dose 100 MLS/HR; Start at 17:15 Pantoprazole 40 mg 40 mg BID@06,18 IV Last administered on 09/26/16 04:55; Admin Dose 40 MG; Start 09/24/16 at 18:00 Vancomycin HCl (Vancocin) 250 ml @ 125 mls/hr Q36H IVPB Last administered on 09:58; Admin Dose 125 MLS/HR; Start 09/25/16 at 10:00 Collagenase (Santyl) 1 applic DAILY TOP Last administered on 09/26/16 09:57; Admin Dose 1 APPLIC; Start 09/24/16 at 20:30 Insulin Aspart NOVOLOG *MILD* ALGORI... Q4 SC Last administered on 09/26/16 09 :57; Admin Dose 1 UNIT; Start 09/24/16 at 21:00 Phenylephrine HCl/ Dextrose (Eulogio-Syneph/D5W) 500 ml @ 75 mls/hr TITRATE IV Last administered on 09/24/16 22:04; Admin Dose 37.5 MLS/HR; Start 09/24/16 at 21:00 Miscellaneous Information 1 ea NOTE XX ; Start 09/24/16 at 21:00 Glucose (Glutose) 15 gm Q15M PRN PO DECREASED GLUCOSE; Start 09/24/16 at 21:00 Glucose (Glutose) 22.5 gm Q15M PRN PO DECREASED GLUCOSE; Start 09/24/16 at 21: 00 Dextrose (D50w Syringe) 25 ml Q15M PRN IV DECREASED GLUCOSE; Start 09/24/16 at 21:00 Dextrose (D50w Syringe) 50 ml Q15M PRN IV DECREASED GLUCOSE; Start 09/24/16 at 21:00 Glucagon (Glucagen) 1 mg Q15M PRN IM DECREASED GLUCOSE; Start 09/24/16 at 21:00 Glucose 15 gm 15 gm Q15M PRN BUCCAL DECREASED GLUCOSE; Start 09/24/16 at 21:00 Acetaminophen 100 ml @ 400 mls/hr Q6H PRN IVPB FEVER Last administered on 09/24 22:00; Admin Dose 400 MLS/HR; Start 09/24/16 at 22:00 Dextrose/Sodium Chloride (D5-1/2ns) 1,000 ml @ 100 mls/hr Q10H IV Last administered on 09/26/16 10:01; Admin Dose 100 MLS/HR; Start 09/25/16 at 01:00 Mupirocin (Bactroban) 1 applic BID TOP Last administered on 09/26/16 09:56; Admin Dose 1 APPLIC; Start 09/25/16 at 21:00 Ryder Wild DO Sep 26, 2016 11:26
--- NOTE | 2016-09-26 12:07 | CONS ---
Date/Time of Note Date/Time of Note DATE: 09/26/16 TIME: 12:02 Assessment/Plan Assessment/Plan Additional Assessment/Plan Acute anemia Evaluate GI bleed versus chronic iron deficiency vs other etiology Stool OB, negative Monitor H&H every 8 hours, transfuse 2 units for hemoglobin less than 7.5 Monitor labs Continue PPI drips EGD tomorrow with Dr. Dawson tomorrow Sepsis Currently on antibiotics Infectious disease following Chronic respiratory failure on ventilator Management per Pulmonology Further recommendations depend on clinical course Patient seen in collaboration with Dr. Dawson Consultation Date/Type/Reason Admit Date/Time Sep 24, 2016 at 03:19 Initial Consult Date 09/24/16 Type of Consultation: GI Referring Provider: ROULA DEL TORO 24 HR Interval Summary Free Text/Dictation G-tube flushing Will restart tube feed Plan for EGD tomorrow secondary to hemoglobin level Exam/Review of Systems Vital Signs Vitals Vital Signs Date Time Temp Pulse Resp B/P Pulse Ox O2 Delivery O2 Flow Rate FiO2 09/26/16 11:15 85 17 100 30 09/26/16 10:45 104/61 Mechanical Ventilator 09/26/16 08:00 98.4 Intake and Output 09/25/16 09/25/16 09/26/16 15:00 23:00 07:00 Intake Total 2512.05 ml 1953.05 ml 1497.48 ml Output Total 450 ml 625 ml 635 ml Balance 2062.05 ml 1328.05 ml 862.48 ml Exam Constitutional: Awake Psych: nl mood/affect Head: normocephalic Eyes: EOMI, nl conjunctiva, nl lids ENMT: nl external ears & nose, nl lips & teeth, nl nasal mucosa & septum Respiratory: Tracheostomy on vent Cardiovascular: regular rate and rhythm Gastrointestinal: soft, non-tender Musculoskeletal: Contractures bilateral and Neurological: STOCK TAKER II-XII intact Results Result Diagram: 09/26/16 0400 09/26/16 0400 Results 24 hrs Laboratory Tests Test 09/25/16 14:00 09/25/16 14:26 09/25/16 15:50 09/25/16 17:36 Stool Occult Blood NEGATIVE Bedside Glucose 173 140 Sodium Level 152 H Potassium Level 3.3 L Chloride Level 109 Carbon Dioxide Level 30 Anion Gap 16 Blood Urea Nitrogen 134 H Creatinine 1.69 H Glucose Level 133 # Calcium Level 7.3 L Test 09/25/16 20:32 09/26/16 00:50 09/26/16 04:00 09/26/16 04:26 Bedside Glucose 156 148 153 White Blood Count 23.8 #H Red Blood Count 3.41 L Hemoglobin 7.8 L Hematocrit 27.5 L Mean Corpuscular Volume 80.6 L Mean Corpuscular Hemoglobin 22.9 L Mean Corpuscular Hemoglobin Concent 28.4 L Red Cell Distribution Width 18.6 H Platelet Count 533 #H Mean Platelet Volume 12.5 H Neutrophils % 90.3 H Lymphocytes % 5.1 L Monocytes % 2.7 Eosinophils % 0.9 Basophils % 0.2 Nucleated Red Blood Cells % 0.1 H Neutrophils # 21.5 H Lymphocytes # 1.2 Monocytes # 0.7 Eosinophils # 0.2 Basophils # 0.0 Nucleated Red Blood Cells # 0.0 Sodium Level 150 H Potassium Level 3.7 Chloride Level 110 Carbon Dioxide Level 28 Anion Gap 16 Blood Urea Nitrogen 114 H Creatinine 1.39 H Glucose Level 114 Lactic Acid Level 2.4 H Calcium Level 7.2 L Phosphorus Level 3.9 Total Bilirubin 0.5 Direct Bilirubin 0.50 H Indirect Bilirubin 0.0 Aspartate Amino Transf (AST/SGOT) 78 H Alanine Aminotransferase (ALT/SGPT) 44 Alkaline Phosphatase 114 Total Protein 4.8 L Albumin 2.1 L Test 09/26/16 08:54 09/26/16 09:55 Lab Scanned Report REFERENCE LAB Bedside Glucose 158 Medications Medications Current Medications Metoclopramide HCl (Reglan) 10 mg Q6H PRN IV NAUSEA AND/OR VOMITING; Start at 03:00 Acetaminophen (Tylenol Supp) 650 mg Q4H PRN [place] PAIN LEVEL 1-3 OR FEVER; Start 09/24/16 at 03:00 Eye Lubricant 1 drop 1 drop TID BOTH EYES Last administered on 09/26/16 09:55 ; Admin Dose 1 DROP; Start 09/24/16 at 09:00 Norepinephrine 16 mg/Dextrose 500 ml @ 1.87 mls/hr TITRATE IV Last administered on 09/26/16 04:58; Admin Dose 1.87 MLS/HR; Start 09/24/16 at 04:00 Vasopressin/ Dextrose (Vasostrict/D5W) 60 ml @ 1.2 mls/hr Q12H IV Last administered on 09/25/16 08:22; Admin Dose 2.4 MLS/HR; Start 09/24/16 at 15:30 Sodium Hypochlorite 1 applic 1 applic BID IRR Last administered on 09/26/16 09 :55; Admin Dose 1 APPLIC; Start 09/24/16 at 21:00 Piperacillin Sod/ Tazobactam Sod (Zosyn 2.25gm/ 50ml (Pmx)) 50 ml @ 100 mls/hr Q8 IVPB Last administered on 09/26/16 04:54; Admin Dose 100 MLS/HR; Start at 17:15 Pantoprazole 40 mg 40 mg BID@06,18 IV Last administered on 09/26/16 04:55; Admin Dose 40 MG; Start 09/24/16 at 18:00 Vancomycin HCl (Vancocin) 250 ml @ 125 mls/hr Q36H IVPB Last administered on 09:58; Admin Dose 125 MLS/HR; Start 09/25/16 at 10:00 Collagenase (Santyl) 1 applic DAILY TOP Last administered on 09/26/16 09:57; Admin Dose 1 APPLIC; Start 09/24/16 at 20:30 Insulin Aspart NOVOLOG *MILD* ALGORI... Q4 SC Last administered on 09/26/16 09 :57; Admin Dose 1 UNIT; Start 09/24/16 at 21:00 Phenylephrine HCl/ Dextrose (Eulogio-Syneph/D5W) 500 ml @ 75 mls/hr TITRATE IV Last administered on 09/24/16 22:04; Admin Dose 37.5 MLS/HR; Start 09/24/16 at 21:00 Miscellaneous Information 1 ea NOTE XX ; Start 09/24/16 at 21:00 Glucose (Glutose) 15 gm Q15M PRN PO DECREASED GLUCOSE; Start 09/24/16 at 21:00 Glucose (Glutose) 22.5 gm Q15M PRN PO DECREASED GLUCOSE; Start 09/24/16 at 21: 00 Dextrose (D50w Syringe) 25 ml Q15M PRN IV DECREASED GLUCOSE; Start 09/24/16 at 21:00 Dextrose (D50w Syringe) 50 ml Q15M PRN IV DECREASED GLUCOSE; Start 09/24/16 at 21:00 Glucagon (Glucagen) 1 mg Q15M PRN IM DECREASED GLUCOSE; Start 09/24/16 at 21:00 Glucose 15 gm 15 gm Q15M PRN BUCCAL DECREASED GLUCOSE; Start 09/24/16 at 21:00 Acetaminophen 100 ml @ 400 mls/hr Q6H PRN IVPB FEVER Last administered on 09/24 22:00; Admin Dose 400 MLS/HR; Start 09/24/16 at 22:00 Dextrose/Sodium Chloride (D5-1/2ns) 1,000 ml @ 100 mls/hr Q10H IV Last administered on 09/26/16 10:01; Admin Dose 100 MLS/HR; Start 09/25/16 at 01:00 Mupirocin (Bactroban) 1 applic BID TOP Last administered on 09/26/16 09:56; Admin Dose 1 APPLIC; Start 09/25/16 at 21:00 JOSE MARIA URENA Sep 26, 2016 12:07
[2016-09-26] MEDS: VANCOMYCIN 1 GM in NS 250 ML IVPB SCH (12:40)
--- NOTE | 2016-09-26 13:15 | PN ---
Date/Time of Note Date/Time of Note DATE: 09/26/16 TIME: 13:02 Assessment/Plan VTE Prophylaxis VTE Prophylaxis Intervention: contraindicated (large wounds) VTE Contraindication Reason: bleeding Lines/Catheters IV Catheter Type (from Nrsg): Central Line Central line still needed: Yes Urinary Cath still in place: Yes Reason Cath still needed: other (indicate) Assessment/Plan Assessment/Plan 81 yo M brought in from [facility] with 1. Severe sepsis with septic shock 2/2 #4 and 5 on aggressive pressor support : improving 2. Severe hypernatremic dehydration: improving 3. Acute renal failure 2/2 ATN from dehydration: improving 4. Ecoli bacteremia and UTI : 5. Multifocal pneumonia (Gram negative carol) 6. Encephalopathy ?acute versus acute on chronic (baseline unknown) 7. hypochromic microcytic anemia likely 2/2 chronic Bleed 8. Hypokalemia: resolved 9. Probable GI bleed (Coffee ground drainage from G tube) 10. Severe multiple pressure ulcers PLAN: * Continue ICU supportive care and mgt * appreciate nephrology and pulm aggressive input * Continue broad spectrum abx / wean pressor support / IVF hydration * Continue IV protonix for GI bleed and keep NGT to suction till no further drainage. * Planned for endscopy tomorrow, appreciate GI input * No surgical interventions for wounds at this time / appreciate surgery review , continue recommended wound care PROPHYLAXIS: SCDS / Protonix CRITICAL CARE TIME: >35 mins Subjective 24 Hr Interval Summary Free Text/Dictation Patient looks so much brighter Changes facial expressions in response to speech, but does not verbalize Subjective hx not possible: pt non-verbal Exam/Review of Systems Vital Signs Vitals Vital Signs Date Time Temp Pulse Resp B/P Pulse Ox O2 Delivery O2 Flow Rate FiO2 09/26/16 12:30 82 16 115/60 100 Mechanical Ventilator 09/26/16 12:00 98.4 09/26/16 11:15 30 Intake and Output 09/25/16 09/25/16 09/26/16 15:00 23:00 07:00 Intake Total 2512.05 ml 1953.05 ml 1497.48 ml Output Total 450 ml 625 ml 635 ml Balance 2062.05 ml 1328.05 ml 862.48 ml Exam Constitutional: alert, distress, non-verbal Head: normocephalic Eyes: PERRL ENMT: other (trach to vent), No mucosa pink and moist Respiratory: crackles/rales (coarse), diminished breath sounds, No wheezing Cardiovascular: regular rate and rhythm Gastrointestinal: other (PEG ), soft Musculoskeletal: muscle weakness (L sided coontractures and weakness), No nl extremities to inspection Neurological: focal weakness, other (non verbal), No nl mental status Results Result Diagram: 09/26/16 0400 09/26/16 0400 Results 24 hrs Laboratory Tests Test 09/25/16 14:00 09/25/16 14:26 09/25/16 15:50 09/25/16 17:36 Stool Occult Blood NEGATIVE Bedside Glucose 173 140 Sodium Level 152 H Potassium Level 3.3 L Chloride Level 109 Carbon Dioxide Level 30 Anion Gap 16 Blood Urea Nitrogen 134 H Creatinine 1.69 H Glucose Level 133 # Calcium Level 7.3 L Test 09/25/16 20:32 09/26/16 00:50 09/26/16 04:00 09/26/16 04:26 Bedside Glucose 156 148 153 White Blood Count 23.8 #H Red Blood Count 3.41 L Hemoglobin 7.8 L Hematocrit 27.5 L Mean Corpuscular Volume 80.6 L Mean Corpuscular Hemoglobin 22.9 L Mean Corpuscular Hemoglobin Concent 28.4 L Red Cell Distribution Width 18.6 H Platelet Count 533 #H Mean Platelet Volume 12.5 H Neutrophils % 90.3 H Lymphocytes % 5.1 L Monocytes % 2.7 Eosinophils % 0.9 Basophils % 0.2 Nucleated Red Blood Cells % 0.1 H Neutrophils # 21.5 H Lymphocytes # 1.2 Monocytes # 0.7 Eosinophils # 0.2 Basophils # 0.0 Nucleated Red Blood Cells # 0.0 Sodium Level 150 H Potassium Level 3.7 Chloride Level 110 Carbon Dioxide Level 28 Anion Gap 16 Blood Urea Nitrogen 114 H Creatinine 1.39 H Glucose Level 114 Lactic Acid Level 2.4 H Calcium Level 7.2 L Phosphorus Level 3.9 Total Bilirubin 0.5 Direct Bilirubin 0.50 H Indirect Bilirubin 0.0 Aspartate Amino Transf (AST/SGOT) 78 H Alanine Aminotransferase (ALT/SGPT) 44 Alkaline Phosphatase 114 Total Protein 4.8 L Albumin 2.1 L Test 09/26/16 08:54 09/26/16 09:55 09/26/16 12:28 Lab Scanned Report REFERENCE LAB Bedside Glucose 158 113 Medications Medications Current Medications Metoclopramide HCl (Reglan) 10 mg Q6H PRN IV NAUSEA AND/OR VOMITING; Start at 03:00 Acetaminophen (Tylenol Supp) 650 mg Q4H PRN [place] PAIN LEVEL 1-3 OR FEVER; Start 09/24/16 at 03:00 Eye Lubricant 1 drop 1 drop TID BOTH EYES Last administered on 09/26/16 12:29 ; Admin Dose 1 DROP; Start 09/24/16 at 09:00 Norepinephrine 16 mg/Dextrose 500 ml @ 1.87 mls/hr TITRATE IV Last administered on 09/26/16 04:58; Admin Dose 1.87 MLS/HR; Start 09/24/16 at 04:00 Vasopressin/ Dextrose (Vasostrict/D5W) 60 ml @ 1.2 mls/hr Q12H IV Last administered on 09/25/16 08:22; Admin Dose 2.4 MLS/HR; Start 09/24/16 at 15:30 Sodium Hypochlorite 1 applic 1 applic BID IRR Last administered on 09/26/16 09 :55; Admin Dose 1 APPLIC; Start 09/24/16 at 21:00 Piperacillin Sod/ Tazobactam Sod (Zosyn 2.25gm/ 50ml (Pmx)) 50 ml @ 100 mls/hr Q8 IVPB Last administered on 09/26/16 04:54; Admin Dose 100 MLS/HR; Start at 17:15 Pantoprazole (Protonix Iv) 40 mg BID@06,18 IV Last administered on 09/26/16 04 :55; Admin Dose 40 MG; Start 09/24/16 at 18:00 Collagenase (Santyl) 1 applic DAILY TOP Last administered on 09/26/16 09:57; Admin Dose 1 APPLIC; Start 09/24/16 at 20:30 Insulin Aspart NOVOLOG *MILD* ALGORI... Q4 SC Last administered on 09/26/16 09 :57; Admin Dose 1 UNIT; Start 09/24/16 at 21:00 Phenylephrine HCl/ Dextrose (Eulogio-Syneph/D5W) 500 ml @ 75 mls/hr TITRATE IV Last administered on 09/24/16 22:04; Admin Dose 37.5 MLS/HR; Start 09/24/16 at 21:00 Miscellaneous Information 1 ea NOTE XX ; Start 09/24/16 at 21:00 Glucose (Glutose) 15 gm Q15M PRN PO DECREASED GLUCOSE; Start 09/24/16 at 21:00 Glucose (Glutose) 22.5 gm Q15M PRN PO DECREASED GLUCOSE; Start 09/24/16 at 21: 00 Dextrose (D50w Syringe) 25 ml Q15M PRN IV DECREASED GLUCOSE; Start 09/24/16 at 21:00 Dextrose (D50w Syringe) 50 ml Q15M PRN IV DECREASED GLUCOSE; Start 09/24/16 at 21:00 Glucagon (Glucagen) 1 mg Q15M PRN IM DECREASED GLUCOSE; Start 09/24/16 at 21:00 Glucose 15 gm 15 gm Q15M PRN BUCCAL DECREASED GLUCOSE; Start 09/24/16 at 21:00 Acetaminophen 100 ml @ 400 mls/hr Q6H PRN IVPB FEVER Last administered on 09/24 22:00; Admin Dose 400 MLS/HR; Start 09/24/16 at 22:00 Dextrose/Sodium Chloride (D5-1/2ns) 1,000 ml @ 100 mls/hr Q10H IV Last administered on 09/26/16 10:01; Admin Dose 100 MLS/HR; Start 09/25/16 at 01:00 Mupirocin 1 applic 1 applic BID TOP Last administered on 09/26/16 09:56; Admin Dose 1 APPLIC; Start 09/25/16 at 21:00 Vancomycin HCl (Vancocin) 250 ml @ 125 mls/hr Q24H IVPB Last administered on 12:40; Admin Dose 125 MLS/HR; Start 09/26/16 at 13:00 ROULA DEL TORO Sep 26, 2016 13:13
--- NOTE | 2016-09-26 13:42 | PN ---
DATE: 09/26/2016 SUBJECTIVE: No events overnight. The patient remains on Levophed drip, afebrile. He is awake but noncommunicative. No fevers. VITAL SIGNS: Temperature 98.4, pulse 82, respirations 16, blood pressure 115/60, saturation 100 on vent. WBC today 23.8, H and H 7.8 and 27.5, platelets 533, neutrophils 90.3, BUN 114, creatinine 1.39. MICROBIOLOGY: Blood culture since admission growing E. coli, drug resistant, susceptible to B actrim, tobramycin, gentamicin, cefotaxime and ampicillin. Endotracheal aspirate is growing gram-ne gative rods. Nares swab negative for MRSA. Wound culture pending. Stool for Clostridium difficile came back negative. DIAGNOSTICS: Renal ultrasound yesterday revealed moderate bilateral hydronephrosis. ANTIMICROBIALS: The patient is on: 1. IV vancomycin. 2. Topical Bactroban to nares. 3. Zosyn. INDWELLINGS: Trach, PEG, rectal tube, left subclavian triple lumen catheter, Cee catheter. PHYSICAL EXAMINATION: GENERAL: This is a chronically ill-appearing, well-developed, elderly [place] man who is lying comf ortably in bed. HEENT: Head atraumatic, normocephalic. Sclerae anicteric. Buccal mucosa dry. NECK: Supple. Tracheostomy present. CHEST: Rise symmetrical. Breath sounds diminished to bases. HEART: S1, S2. ABDOMEN: Soft, bowel tones present. EXTREMITIES: Without cyanosis. ASSESSMENT: 1. Severe sepsis with shock. 2. Escherichia coli urinary tract infection with bacteremia. 3. Healthcare-associated pneumonia. 4. Methicillin-resistant Staphylococcus aureus nares colonization. 5. Sacral decubitus. 6. Persistent diarrhea, stool for Clostridium difficile negative. 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 7. History of cerebrovascular accident. 8. Dementia. PLAN: We are going to add oral vancomycin to the regimen and probiotics, await sputum cultures, con tinue present care. Pending EGD to evaluate for anemia. Dictated By: CHRISTOPHER MCDONOUGH [employer]ER[employer] LAW CLERK for YAQUELIN SMYTH/ELIZABETH Conf#: [id number] DID#: [id number]
[2016-09-26] MEDS: VANCOMYCIN HCL 250 MG/5ML POSYG PO SCH (17:12)
--- NOTE | 2016-09-26 18:35 | CONS ---
Date/Time of Note Date/Time of Note DATE: 09/26/16 TIME: 18:34 Assessment/Plan Assessment/Plan Additional Assessment/Plan 1. Acute kidney injury versus acute kidney injury on chronic kidney disease. This is likely secondary to severe prerenal azotemia causing ischemic acute tubular necrosis. 2. Severe hyponatremia with a sodium of 165 due to the large volume of free water deficit, likely deficits up to 8-9 liters. 3. Contraction metabolic alkalosis with a bicarbonate of 40. 4. Septic shock with lactic acid of 8.7 secondary to urinary tract infection and pneumonia. on 3 pressors 5. History of chronic respiratory failure, status post tracheostomy, on ventilator. 6. History of G-tube. 7. Poor mental status due to the previous cerebrovascular accident. 8. History of dementia. 9. History of hypertension. PLAN: continue current IVF D51/2NS good urine output, Na and Cr improving will follow up Total time spent int his patient follow up progress note, Updating Ancillary staff, Talked with SW to locate family member and communicating with Nursing Staff took more than 60 minutes Consultation Date/Type/Reason Admit Date/Time Sep 24, 2016 at 03:19 Initial Consult Date 09/24/16 Type of Consultation: NEPHROLOGY Referring Provider: ROULA DEL TORO 24 HR Interval Summary Free Text/Dictation Na improving,Cr Improving,good urine out put,stable vent setting s Exam/Review of Systems Vital Signs Vitals Vital Signs Date Time Temp Pulse Resp B/P Pulse Ox O2 Delivery O2 Flow Rate FiO2 09/26/16 18:00 82 16 103/54 100 Mechanical Ventilator 09/26/16 17:28 30 09/26/16 15:45 98.7 Intake and Output 09/25/16 09/25/16 09/26/16 15:00 23:00 07:00 Intake Total 2512.05 ml 1953.05 ml 1497.48 ml Output Total 450 ml 625 ml 635 ml Balance 2062.05 ml 1328.05 ml 862.48 ml Results Result Diagram: 09/26/16 0400 09/26/16 0400 Results 24 hrs Laboratory Tests Test 09/25/16 20:32 09/26/16 00:50 09/26/16 04:00 09/26/16 04:26 Bedside Glucose 156 148 153 White Blood Count 23.8 #H Red Blood Count 3.41 L Hemoglobin 7.8 L Hematocrit 27.5 L Mean Corpuscular Volume 80.6 L Mean Corpuscular Hemoglobin 22.9 L Mean Corpuscular Hemoglobin Concent 28.4 L Red Cell Distribution Width 18.6 H Platelet Count 533 #H Mean Platelet Volume 12.5 H Neutrophils % 90.3 H Lymphocytes % 5.1 L Monocytes % 2.7 Eosinophils % 0.9 Basophils % 0.2 Nucleated Red Blood Cells % 0.1 H Neutrophils # 21.5 H Lymphocytes # 1.2 Monocytes # 0.7 Eosinophils # 0.2 Basophils # 0.0 Nucleated Red Blood Cells # 0.0 Sodium Level 150 H Potassium Level 3.7 Chloride Level 110 Carbon Dioxide Level 28 Anion Gap 16 Blood Urea Nitrogen 114 H Creatinine 1.39 H Glucose Level 114 Lactic Acid Level 2.4 H Calcium Level 7.2 L Phosphorus Level 3.9 Total Bilirubin 0.5 Direct Bilirubin 0.50 H Indirect Bilirubin 0.0 Aspartate Amino Transf (AST/SGOT) 78 H Alanine Aminotransferase (ALT/SGPT) 44 Alkaline Phosphatase 114 Total Protein 4.8 L Albumin 2.1 L Test 09/26/16 08:54 09/26/16 09:55 09/26/16 12:28 09/26/16 17:11 Lab Scanned Report REFERENCE LAB Bedside Glucose 158 113 125 Medications Medications Current Medications Metoclopramide HCl (Reglan) 10 mg Q6H PRN IV NAUSEA AND/OR VOMITING; Start at 03:00 Acetaminophen (Tylenol Supp) 650 mg Q4H PRN [place] PAIN LEVEL 1-3 OR FEVER; Start 09/24/16 at 03:00 Eye Lubricant 1 drop 1 drop TID BOTH EYES Last administered on 09/26/16 12:29 ; Admin Dose 1 DROP; Start 09/24/16 at 09:00 Norepinephrine 16 mg/Dextrose 500 ml @ 1.87 mls/hr TITRATE IV Last administered on 09/26/16 04:58; Admin Dose 1.87 MLS/HR; Start 09/24/16 at 04:00 Vasopressin/ Dextrose (Vasostrict/D5W) 60 ml @ 1.2 mls/hr Q12H IV Last administered on 09/25/16 08:22; Admin Dose 2.4 MLS/HR; Start 09/24/16 at 15:30 Sodium Hypochlorite 1 applic 1 applic BID IRR Last administered on 09/26/16 09 :55; Admin Dose 1 APPLIC; Start 09/24/16 at 21:00 Piperacillin Sod/ Tazobactam Sod (Zosyn 2.25gm/ 50ml (Pmx)) 50 ml @ 100 mls/hr Q8 IVPB Last administered on 09/26/16 15:20; Admin Dose 100 MLS/HR; Start at 17:15 Pantoprazole (Protonix Iv) 40 mg BID@06,18 IV Last administered on 09/26/16 17 :12; Admin Dose 40 MG; Start 09/24/16 at 18:00 Collagenase (Santyl) 1 applic DAILY TOP Last administered on 09/26/16 09:57; Admin Dose 1 APPLIC; Start 09/24/16 at 20:30 Insulin Aspart NOVOLOG *MILD* ALGORI... Q4 SC Last administered on 09/26/16 09 :57; Admin Dose 1 UNIT; Start 09/24/16 at 21:00 Phenylephrine HCl/ Dextrose (Eulogio-Syneph/D5W) 500 ml @ 75 mls/hr TITRATE IV Last administered on 09/24/16 22:04; Admin Dose 37.5 MLS/HR; Start 09/24/16 at 21:00 Miscellaneous Information 1 ea NOTE XX ; Start 09/24/16 at 21:00 Glucose (Glutose) 15 gm Q15M PRN PO DECREASED GLUCOSE; Start 09/24/16 at 21:00 Glucose (Glutose) 22.5 gm Q15M PRN PO DECREASED GLUCOSE; Start 09/24/16 at 21: 00 Dextrose (D50w Syringe) 25 ml Q15M PRN IV DECREASED GLUCOSE; Start 09/24/16 at 21:00 Dextrose (D50w Syringe) 50 ml Q15M PRN IV DECREASED GLUCOSE; Start 09/24/16 at 21:00 Glucagon (Glucagen) 1 mg Q15M PRN IM DECREASED GLUCOSE; Start 09/24/16 at 21:00 Glucose 15 gm 15 gm Q15M PRN BUCCAL DECREASED GLUCOSE; Start 09/24/16 at 21:00 Acetaminophen 100 ml @ 400 mls/hr Q6H PRN IVPB FEVER Last administered on 09/24 22:00; Admin Dose 400 MLS/HR; Start 09/24/16 at 22:00 Dextrose/Sodium Chloride (D5-1/2ns) 1,000 ml @ 100 mls/hr Q10H IV Last administered on 09/26/16 10:01; Admin Dose 100 MLS/HR; Start 09/25/16 at 01:00 Mupirocin 1 applic 1 applic BID TOP Last administered on 09/26/16 09:56; Admin Dose 1 APPLIC; Start 09/25/16 at 21:00 Vancomycin HCl (Vancocin) 250 ml @ 125 mls/hr Q24H IVPB Last administered on 12:40; Admin Dose 125 MLS/HR; Start 09/26/16 at 13:00 Vancomycin HCl (Vancomycin Oral Syringe) 250 mg Q6 PO Last administered on 09/26 17:12; Admin Dose 250 MG; Start 09/26/16 at 18:00 Lactobacillus Acidoph/Bulgaricus (Floranex) 1 tab TID PO ; Start 09/26/16 at 21: 00 MAGGIE DINERO MD Sep 26, 2016 18:35
[2016-09-26] MEDS: LACTOBACILLUS CHEW TAB PO SCH (21:12)
--- NOTE | 2016-09-26 23:05 | CONS ---
Date/Time of Note Date/Time of Note DATE: 09/26/16 TIME: 23:02 Assessment/Plan Assessment/Plan Chief Complaint/Hosp Course ANEMIA - NEAR- MICROCYTIC WITH INCREASED RDW DROP H/H DURING HOSPITALIZATION + ACD TRANSFUSE PRBC TO KEEP HB MORE THAN 8 TRANSFUSE NEEDED Probable GI bleed (Coffee ground drainage from G tube) MONITOR CLOSELY Stool OB, negative Monitor H&H every 8 hours, transfuse 2 units for hemoglobin less than 8 Continue PPI drips EGD tomorrow with Dr. Dawson LEUKOCYTOSIS- REACTIVE CONT ATB FOR SEPSIS THROMBOCYTOSIS REACTIVE SHOULD IMPROVE WITH RESOLUTION OF SEPSIS Severe sepsis with septic shock 2/2 #4 and 5 on aggressive pressor support Severe hypernatremic dehydration Acute renal failure 2/2 ATN from dehydration UTI Multifocal pneumonia Encephalopathy ?acute versus acute on chronic (baseline unknown) Hypokalemia Problems: Consultation Date/Type/Reason Admit Date/Time Sep 24, 2016 at 03:19 Initial Consult Date 09/24/16 Type of Consultation: HEMEON Referring Provider: ROULA DEL TORO 24 HR Interval Summary Free Text/Dictation No events overnight. The patient remains on Levophed drip, afebrile. He is awake but noncommunicative. No fevers. DIAGNOSTICS: Renal ultrasound yesterday revealed moderate bilateral hydronephrosis. ANTIMICROBIALS: The patient is on: 1. IV vancomycin. 2. Topical Bactroban to nares. 3. Zosyn. INDWELLINGS: Trach, PEG, rectal tube, left subclavian triple lumen catheter, Cee catheter. Exam/Review of Systems Vital Signs Vitals Vital Signs Date Time Temp Pulse Resp B/P Pulse Ox O2 Delivery O2 Flow Rate FiO2 09/26/16 22:00 91 16 93/55 100 Mechanical Ventilator 09/26/16 21:00 30 09/26/16 19:00 98.8 Intake and Output 09/25/16 09/25/16 09/26/16 15:00 23:00 07:00 Intake Total 2512.05 ml 1953.05 ml 1497.48 ml Output Total 450 ml 625 ml 635 ml Balance 2062.05 ml 1328.05 ml 862.48 ml Exam PHYSICAL EXAMINATION: GENERAL: This is a chronically ill-appearing, well-developed, elderly [place] man who is lying comfortably in bed. HEENT: Head atraumatic, normocephalic. Sclerae anicteric. Buccal mucosa dry. NECK: Supple. Tracheostomy present. CHEST: Rise symmetrical. Breath sounds diminished to bases. HEART: S1, S2. ABDOMEN: Soft, bowel tones present. EXTREMITIES: Without cyanosis. Results Result Diagram: 09/26/16 0400 09/26/16 0400 Results 24 hrs Laboratory Tests Test 09/26/16 00:50 09/26/16 04:00 09/26/16 04:26 09/26/16 08:54 Bedside Glucose 148 153 White Blood Count 23.8 #H Red Blood Count 3.41 L Hemoglobin 7.8 L Hematocrit 27.5 L Mean Corpuscular Volume 80.6 L Mean Corpuscular Hemoglobin 22.9 L Mean Corpuscular Hemoglobin Concent 28.4 L Red Cell Distribution Width 18.6 H Platelet Count 533 #H Mean Platelet Volume 12.5 H Neutrophils % 90.3 H Lymphocytes % 5.1 L Monocytes % 2.7 Eosinophils % 0.9 Basophils % 0.2 Nucleated Red Blood Cells % 0.1 H Neutrophils # 21.5 H Lymphocytes # 1.2 Monocytes # 0.7 Eosinophils # 0.2 Basophils # 0.0 Nucleated Red Blood Cells # 0.0 Sodium Level 150 H Potassium Level 3.7 Chloride Level 110 Carbon Dioxide Level 28 Anion Gap 16 Blood Urea Nitrogen 114 H Creatinine 1.39 H Glucose Level 114 Lactic Acid Level 2.4 H Calcium Level 7.2 L Phosphorus Level 3.9 Total Bilirubin 0.5 Direct Bilirubin 0.50 H Indirect Bilirubin 0.0 Aspartate Amino Transf (AST/SGOT) 78 H Alanine Aminotransferase (ALT/SGPT) 44 Alkaline Phosphatase 114 Total Protein 4.8 L Albumin 2.1 L Lab Scanned Report REFERENCE LAB Test 09/26/16 09:55 09/26/16 12:28 09/26/16 17:11 09/26/16 21:10 Bedside Glucose 158 113 125 126 Medications Medications Current Medications Metoclopramide HCl (Reglan) 10 mg Q6H PRN IV NAUSEA AND/OR VOMITING; Start at 03:00 Acetaminophen (Tylenol Supp) 650 mg Q4H PRN [place] PAIN LEVEL 1-3 OR FEVER; Start 09/24/16 at 03:00 Eye Lubricant 1 drop 1 drop TID BOTH EYES Last administered on 09/26/16t 21:10 ; Admin Dose 1 DROP; Start 09/24/16 at 09:00 Norepinephrine 16 mg/Dextrose 500 ml @ 1.87 mls/hr TITRATE IV Last administered on 09/26/16 04:58; Admin Dose 1.87 MLS/HR; Start 09/24/16 at 04:00 Vasopressin/ Dextrose (Vasostrict/D5W) 60 ml @ 1.2 mls/hr Q12H IV Last administered on 09/25/16 08:22; Admin Dose 2.4 MLS/HR; Start 09/24/16 at 15:30 Sodium Hypochlorite 1 applic 1 applic BID IRR Last administered on 09/26/16 21 :11; Admin Dose 1 APPLIC; Start 09/24/16 at 21:00 Piperacillin Sod/ Tazobactam Sod (Zosyn 2.25gm/ 50ml (Pmx)) 50 ml @ 100 mls/hr Q8 IVPB Last administered on 09/26/16 21:12; Admin Dose 100 MLS/HR; Start at 17:15 Pantoprazole (Protonix Iv) 40 mg BID@06,18 IV Last administered on 09/26/16 17 :12; Admin Dose 40 MG; Start 09/24/16 at 18:00 Collagenase (Santyl) 1 applic DAILY TOP Last administered on 09/26/16 21:11; Admin Dose 1 APPLIC; Start 09/24/16 at 20:30 Insulin Aspart NOVOLOG *MILD* ALGORI... Q4 SC Last administered on 09/26/16 09 :57; Admin Dose 1 UNIT; Start 09/24/16 at 21:00 Phenylephrine HCl/ Dextrose (Eulogio-Syneph/D5W) 500 ml @ 75 mls/hr TITRATE IV Last administered on 09/24/16 22:04; Admin Dose 37.5 MLS/HR; Start 09/24/16 at 21:00 Miscellaneous Information 1 ea NOTE XX ; Start 09/24/16 at 21:00 Glucose (Glutose) 15 gm Q15M PRN PO DECREASED GLUCOSE; Start 09/24/16 at 21:00 Glucose (Glutose) 22.5 gm Q15M PRN PO DECREASED GLUCOSE; Start 09/24/16 at 21: 00 Dextrose (D50w Syringe) 25 ml Q15M PRN IV DECREASED GLUCOSE; Start 09/24/16 at 21:00 Dextrose (D50w Syringe) 50 ml Q15M PRN IV DECREASED GLUCOSE; Start 09/24/16 at 21:00 Glucagon (Glucagen) 1 mg Q15M PRN IM DECREASED GLUCOSE; Start 09/24/16 at 21:00 Glucose 15 gm 15 gm Q15M PRN BUCCAL DECREASED GLUCOSE; Start 09/24/16 at 21:00 Acetaminophen 100 ml @ 400 mls/hr Q6H PRN IVPB FEVER Last administered on 09/24 22:00; Admin Dose 400 MLS/HR; Start 09/24/16 at 22:00 Dextrose/Sodium Chloride (D5-1/2ns) 1,000 ml @ 100 mls/hr Q10H IV Last administered on 09/26/16 21:10; Admin Dose 100 MLS/HR; Start 09/25/16 at 01:00 Mupirocin 1 applic 1 applic BID TOP Last administered on 09/26/16 21:12; Admin Dose 1 APPLIC; Start 09/25/16 at 21:00 Vancomycin HCl (Vancocin) 250 ml @ 125 mls/hr Q24H IVPB Last administered on 12:40; Admin Dose 125 MLS/HR; Start 09/26/16 at 13:00 Vancomycin HCl (Vancomycin Oral Syringe) 250 mg Q6 PO Last administered on 09/26 17:12; Admin Dose 250 MG; Start 09/26/16 at 18:00 Lactobacillus Acidoph/Bulgaricus (Floranex) 1 tab TID PO Last administered on 21:12; Admin Dose 1 TAB; Start 09/26/16 at 21:00 SCOTT RODRIGUES MD Sep 26, 2016 23:05
[2016-09-27] VITALS (46 sets, daily range): BP systolic 84–112; BP diastolic 52–73; PULSE 78–105; RESP 14–32
[2016-09-27] MEDS: VANCOMYCIN HCL 250 MG/5ML POSYG PO SCH ×5 (00:26→23:51)
[2016-09-27] MEDS: INSULIN ASPART [NOVOLOG] 3 ML PEN SC SCH ×6 (00:26→21:00)
[2016-09-27] MEDS: IPRATROPIUM (HFA) 12.9 GM INHALER INH SCH ×6 (01:38→21:29)
[2016-09-27] MEDS: ALBUTEROL HFA 8 GM INHALER INH SCH ×6 (01:38→21:29)
[2016-09-27] MEDS: VASOPRESSIN 60 UNIT in DEXTROSE 5% 57 ML IV SCH ×2 (03:30→12:47)
[2016-09-27 05:29] LABS: ADD SCAN DIFF NO
[2016-09-27 05:54] LABS: ABNORMAL IP MESSAGE 1; BASOPHILS % 0.1 % (0.0-2.0); EOSINOPHILS # 0.1 10^3/ul (0.0-0.5); EOSINOPHILS % 0.6 % (0.0-7.0); HEMATOCRIT 28.8 % (42.0-52.0); HEMOGLOBIN 8.3 g/dl (14.0-18.0); LYMPHOCYTES # 0.9 10^3/ul (0.8-2.9); LYMPHOCYTES % 5.9 % (15.0-51.0); MEAN CORPUSCULAR HEMOGLOBIN 23.6 pg (29.0-33.0); MEAN CORPUSCULAR HGB CONC 28.8 g/dl (32.0-37.0); MEAN CORPUSCULAR VOLUME 81.8 fl (82.0-101.0); MEAN PLATELET VOLUME 12.1 fl (7.4-10.4); MONOCYTE # 0.5 10^3/ul (0.3-0.9); MONOCYTES % 2.9 % (0.0-11.0); NEUTROPHIL # 14.1 10^3/ul (1.6-7.5); NEUTROPHILS % 89.9 % (39.0-77.0); PLATELET COUNT 332 10^3/UL (140-415); RED BLOOD COUNT 3.52 10^6/ul (4.70-6.10); RED CELL DISTRIBUTION WIDTH 18.5 % (11.5-14.5); WHITE BLOOD COUNT 15.7 10^3/ul (4.8-10.8)
[2016-09-27 05:58] LABS: INR 1.25; PROTIME 15.8 Sec (12.2-14.2); PT RATIO 1.2
[2016-09-27 05:59] LABS: PARTIAL THROMBOPLASTIN TIME 46.8 Sec (25.0-35.0)
[2016-09-27 06:15] LABS: ALBUMIN 1.9 g/dl (3.3-4.9); POTASSIUM 3.1 mmol/L (3.5-5.1)
[2016-09-27] MEDS: PIPER-TAZO 2.25 GM (PMX) 50 ML IVPB SCH (06:16)
[2016-09-27] MEDS: PANTOPRAZOLE 40 MG INJ IV SCH ×2 (06:16→18:09)
[2016-09-27 06:17] LABS: CREATININE 1.07 mg/dl (0.61-1.24)
[2016-09-27 06:18] LABS: CALCIUM 7.1 mg/dl (8.4-10.2); PHOSPHORUS 4.1 mg/dl (2.5-4.9)
[2016-09-27] MEDS: DEXTROSE 5%-0.45% NACL 1,000 ML IV SCH (06:19)
--- NOTE | 2016-09-27 07:32 | RADRPT ---
PROCEDURE: XR Chest. CLINICAL INDICATION: Pneumonia TECHNIQUE: Portable single view of the chest COMPARISON: 09/24 FINDINGS: Tracheostomy tube and left PICC line are again seen. Left lower lobe atelectasis or infiltrate and small effusion again seen. Patchy infiltrate in the right mid lung is likely unchanged. Pulmonary vascular congestion. IMPRESSION: No significant interval change. RPTAT: [facility] Physician Dipti Date Time Electronically viewed and signed by Maria Ines Miller Physician on 09/27/2016 07:32 ILAN/
[2016-09-27] MEDS: LACTOBACILLUS CHEW TAB PO SCH ×3 (08:36→21:00)
[2016-09-27] MEDS: SODIUM HYPOCHLORITE 0.125% 473 ML BTL IRR SCH ×2 (08:49→21:10)
[2016-09-27] MEDS: MUPIROCIN 2% 22 GM OINT TOP SCH ×2 (08:49→21:11)
[2016-09-27] MEDS: ARTIFICIAL TEARS 15 ML OPH BOTH EYES SCH ×3 (08:49→21:10)
--- NOTE | 2016-09-27 09:53 | CONS ---
Date/Time of Note Date/Time of Note DATE: 09/27/16 TIME: 09:50 Assessment/Plan Assessment/Plan Additional Assessment/Plan 1. Acute kidney injury versus acute kidney injury on chronic kidney disease. This is likely secondary to severe prerenal azotemia causing ischemic acute tubular necrosis. 2. Severe hyponatremia with a sodium of 165 due to the large volume of free water deficit, likely deficits up to 8-9 liters. 3. Contraction metabolic alkalosis with a bicarbonate of 40. 4. Septic shock with lactic acid of 8.7 secondary to urinary tract infection and pneumonia. on 3 pressors 5. History of chronic respiratory failure, status post tracheostomy, on ventilator. 6. History of G-tube. 7. Poor mental status due to the previous cerebrovascular accident. 8. History of dementia. 9. History of hypertension. PLAN: Na 151s,change IVF to D5W with 20 KCL at 75 cc/hr good urine output,1.39 L will follow up Total time spent int his patient follow up progress note, Updating Ancillary staff, Talked with SW to locate family member and communicating with Nursing Staff took more than 60 minutes Consultation Date/Type/Reason Admit Date/Time Sep 24, 2016 at 03:19 Initial Consult Date 09/24/16 Type of Consultation: NEPHROLOGY Reason for Consultation hypernatremia, acute kidney injury Referring Provider: ROULA DEL TORO Exam/Review of Systems Vital Signs Vitals Vital Signs Date Time Temp Pulse Resp B/P Pulse Ox O2 Delivery O2 Flow Rate FiO2 09/27/16 08:00 93 09/27/16 06:30 17 94 Mechanical Ventilator 09/27/16 05:04 30 09/27/16 04:30 99.0 Intake and Output 09/26/16 09/26/16 09/27/16 15:00 23:00 07:00 Intake Total 1396.24 ml 1221.25 ml 1237.49 ml Output Total 800 ml 365 ml 225 ml Balance 596.24 ml 856.25 ml 1012.49 ml Exam HEENT: Tracheostomy site is clear and connected to the ventilator. NECK: Supple, no JVD. LUNGS: Decreased breath sounds with bilateral coarse breath sounds. HEART: S1, S2, tachycardia, no murmur. ABDOMEN: Soft. G-tube in place. EXTREMITIES: Contracture extremities. SKIN: The patient has multiple chronic pressure ulcers. NEUROLOGICAL: Uncooperative for exam. Results Result Diagram: 09/27/16 0400 09/27/16 0400 Results 24 hrs Laboratory Tests Test 09/26/16 09:55 09/26/16 12:28 09/26/16 17:11 09/26/16 21:10 Bedside Glucose 158 113 125 126 Test 09/27/16 00:26 09/27/16 04:00 09/27/16 06:15 09/27/16 06:22 Bedside Glucose 122 119 White Blood Count 15.7 #H Red Blood Count 3.52 L Hemoglobin 8.3 L Hematocrit 28.8 L Mean Corpuscular Volume 81.8 L Mean Corpuscular Hemoglobin 23.6 L Mean Corpuscular Hemoglobin Concent 28.8 L Red Cell Distribution Width 18.5 H Platelet Count 332 # Mean Platelet Volume 12.1 H Neutrophils % 89.9 H Lymphocytes % 5.9 L Monocytes % 2.9 Eosinophils % 0.6 Basophils % 0.1 Nucleated Red Blood Cells % 0.0 Neutrophils # 14.1 H Lymphocytes # 0.9 Monocytes # 0.5 Eosinophils # 0.1 Basophils # 0.0 Nucleated Red Blood Cells # 0.0 Prothrombin Time 15.8 H Prothrombin Time Ratio 1.2 INR International Normalized Ratio 1.25 Activated Partial Thromboplast Time 46.8 H Sodium Level 151 H Potassium Level 3.1 L Chloride Level 113 H Carbon Dioxide Level 26 Anion Gap 15 Blood Urea Nitrogen 97 H Creatinine 1.07 Glucose Level 100 Calcium Level 7.1 L Phosphorus Level 4.1 Albumin 1.9 L Lactic Acid Level 1.7 Test 09/27/16 08:47 Bedside Glucose 113 Medications Medications Current Medications Metoclopramide HCl (Reglan) 10 mg Q6H PRN IV NAUSEA AND/OR VOMITING; Start at 03:00 Acetaminophen (Tylenol Supp) 650 mg Q4H PRN [place] PAIN LEVEL 1-3 OR FEVER; Start 09/24/16 at 03:00 Eye Lubricant 1 drop 1 drop TID BOTH EYES Last administered on 09/27/16 08:49 ; Admin Dose 1 DROP; Start 09/24/16 at 09:00 Norepinephrine 16 mg/Dextrose 500 ml @ 1.87 mls/hr TITRATE IV Last administered on 09/26/16 04:58; Admin Dose 1.87 MLS/HR; Start 09/24/16 at 04:00 Vasopressin/ Dextrose (Vasostrict/D5W) 60 ml @ 1.2 mls/hr Q12H IV Last administered on 09/25/16 08:22; Admin Dose 2.4 MLS/HR; Start 09/24/16 at 15:30 Sodium Hypochlorite 1 applic 1 applic BID IRR Last administered on 09/27/16 08 :49; Admin Dose 1 APPLIC; Start 09/24/16 at 21:00 Piperacillin Sod/ Tazobactam Sod (Zosyn 2.25gm/ 50ml (Pmx)) 50 ml @ 100 mls/hr Q8 IVPB Last administered on 09/27/16 06:16; Admin Dose 100 MLS/HR; Start at 17:15 Pantoprazole (Protonix Iv) 40 mg BID@06,18 IV Last administered on 09/27/16 06 :16; Admin Dose 40 MG; Start 09/24/16 at 18:00 Collagenase (Santyl) 1 applic DAILY TOP Last administered on 09/26/16 21:11; Admin Dose 1 APPLIC; Start 09/24/16 at 20:30 Insulin Aspart NOVOLOG *MILD* ALGORI... Q4 SC Last administered on 09/26/16 09 :57; Admin Dose 1 UNIT; Start 09/24/16 at 21:00 Phenylephrine HCl/ Dextrose (Eulogio-Syneph/D5W) 500 ml @ 75 mls/hr TITRATE IV Last administered on 09/24/16 22:04; Admin Dose 37.5 MLS/HR; Start 09/24/16 at 21:00 Miscellaneous Information 1 ea NOTE XX ; Start 09/24/16 at 21:00 Glucose (Glutose) 15 gm Q15M PRN PO DECREASED GLUCOSE; Start 09/24/16 at 21:00 Glucose (Glutose) 22.5 gm Q15M PRN PO DECREASED GLUCOSE; Start 09/24/16 at 21: 00 Dextrose (D50w Syringe) 25 ml Q15M PRN IV DECREASED GLUCOSE; Start 09/24/16 at 21:00 Dextrose (D50w Syringe) 50 ml Q15M PRN IV DECREASED GLUCOSE; Start 09/24/16 at 21:00 Glucagon (Glucagen) 1 mg Q15M PRN IM DECREASED GLUCOSE; Start 09/24/16 at 21:00 Glucose 15 gm 15 gm Q15M PRN BUCCAL DECREASED GLUCOSE; Start 09/24/16 at 21:00 Acetaminophen 100 ml @ 400 mls/hr Q6H PRN IVPB FEVER Last administered on 09/24 22:00; Admin Dose 400 MLS/HR; Start 09/24/16 at 22:00 Dextrose/Sodium Chloride (D5-1/2ns) 1,000 ml @ 100 mls/hr Q10H IV Last administered on 09/26/16 21:10; Admin Dose 100 MLS/HR; Start 09/25/16 at 01:00 Mupirocin 1 applic 1 applic BID TOP Last administered on 09/27/16 08:49; Admin Dose 1 APPLIC; Start 09/25/16 at 21:00 Vancomycin HCl (Vancocin) 250 ml @ 125 mls/hr Q24H IVPB Last administered on 12:40; Admin Dose 125 MLS/HR; Start 09/26/16 at 13:00 Vancomycin HCl (Vancomycin Oral Syringe) 250 mg Q6 PO Last administered on 09/27 06:16; Admin Dose 250 MG; Start 09/26/16 at 18:00 Lactobacillus Acidoph/Bulgaricus (Floranex) 1 tab TID PO Last administered on 08:36; Admin Dose 1 TAB; Start 09/26/16 at 21:00 MAGGIE DINERO MD Sep 27, 2016 09:53
--- NOTE | 2016-09-27 10:21 | CONS ---
Date/Time of Note Date/Time of Note DATE: 09/27/16 TIME: 10:18 Assessment/Plan Assessment/Plan Additional Assessment/Plan Ventilator settings are AC of 16, tidal volume 500, PEEP of 5, 30% FiO2. Chest x-ray was reviewed from today which is showing cardiomegaly with left lower lobe segmental atelectasis. Assessment recommendations; 1. Patient with chronic respiratory failure, ventilator dependent admitted for pneumonia and UTI and sepsis. 2. Severe hypotension with interval improvement. 3. Hypernatremia, currently being given free water. 4. Acute renal failure with normalization of serum creatinine. 5. Advanced dementia. 6. Sacral decubitus ulcers. Growing multiple organisms. Continue current supportive care. Consultation Date/Type/Reason Admit Date/Time Sep 24, 2016 at 03:19 Initial Consult Date 09/24/16 Type of Consultation: Pulmonary/critical care Referring Provider: ROULA DEL TORO 24 HR Interval Summary Free Text/Dictation Patient condition remains critical. However the patient is off pressor support. And has remained hemodynamically stable now. Due to advanced dementia patient remains unresponsive, remains ventilator dependent. General exam; elderly male, on ventilator via tracheostomy currently in no distress. Exam/Review of Systems Vital Signs Vitals Vital Signs Date Time Temp Pulse Resp B/P Pulse Ox O2 Delivery O2 Flow Rate FiO2 09/27/16 08:00 93 09/27/16 06:30 17 94 Mechanical Ventilator 09/27/16 05:04 30 09/27/16 04:30 99.0 Intake and Output 09/26/16 09/26/16 09/27/16 15:00 23:00 07:00 Intake Total 1396.24 ml 1221.25 ml 1237.49 ml Output Total 800 ml 365 ml 225 ml Balance 596.24 ml 856.25 ml 1012.49 ml Exam HEENT examination; supple neck, midline trachea, no thyromegaly no neck bruits , pupils are equal reactive to light bilaterally, patient has fair dentition. Tracheostomy in place with clean insertion site. Chest examination; diminished breath sound bilaterally. S1-S2 audible, no murmurs. Regular rhythm. Abdomen examination; soft, protuberant. G-tube in place. Bowel sounds audible. No organomegaly felt. Extremity examination; no peripheral edema. Pulses 1+ bilaterally. [employer] exam is; patient remains unresponsive has severe contractures involving all 4 extremities. Results Result Diagram: 09/27/16 0400 09/27/16 0400 Results 24 hrs Laboratory Tests Test 09/26/16 12:28 09/26/16 17:11 09/26/16 21:10 09/27/16 00:26 Bedside Glucose 113 125 126 122 Test 09/27/16 04:00 09/27/16 06:15 09/27/16 06:22 09/27/16 08:47 White Blood Count 15.7 #H Red Blood Count 3.52 L Hemoglobin 8.3 L Hematocrit 28.8 L Mean Corpuscular Volume 81.8 L Mean Corpuscular Hemoglobin 23.6 L Mean Corpuscular Hemoglobin Concent 28.8 L Red Cell Distribution Width 18.5 H Platelet Count 332 # Mean Platelet Volume 12.1 H Neutrophils % 89.9 H Lymphocytes % 5.9 L Monocytes % 2.9 Eosinophils % 0.6 Basophils % 0.1 Nucleated Red Blood Cells % 0.0 Neutrophils # 14.1 H Lymphocytes # 0.9 Monocytes # 0.5 Eosinophils # 0.1 Basophils # 0.0 Nucleated Red Blood Cells # 0.0 Prothrombin Time 15.8 H Prothrombin Time Ratio 1.2 INR International Normalized Ratio 1.25 Activated Partial Thromboplast Time 46.8 H Sodium Level 151 H Potassium Level 3.1 L Chloride Level 113 H Carbon Dioxide Level 26 Anion Gap 15 Blood Urea Nitrogen 97 H Creatinine 1.07 Glucose Level 100 Calcium Level 7.1 L Phosphorus Level 4.1 Albumin 1.9 L Bedside Glucose 119 113 Lactic Acid Level 1.7 Medications Medications Current Medications Metoclopramide HCl (Reglan) 10 mg Q6H PRN IV NAUSEA AND/OR VOMITING; Start at 03:00 Acetaminophen (Tylenol Supp) 650 mg Q4H PRN [place] PAIN LEVEL 1-3 OR FEVER; Start 09/24/16 at 03:00 Eye Lubricant 1 drop 1 drop TID BOTH EYES Last administered on 09/27/16 08:49 ; Admin Dose 1 DROP; Start 09/24/16 at 09:00 Norepinephrine 16 mg/Dextrose 500 ml @ 1.87 mls/hr TITRATE IV Last administered on 09/26/16 04:58; Admin Dose 1.87 MLS/HR; Start 09/24/16 at 04:00 Vasopressin/ Dextrose (Vasostrict/D5W) 60 ml @ 1.2 mls/hr Q12H IV Last administered on 09/25/16 08:22; Admin Dose 2.4 MLS/HR; Start 09/24/16 at 15:30 Sodium Hypochlorite 1 applic 1 applic BID IRR Last administered on 09/27/16 08 :49; Admin Dose 1 APPLIC; Start 09/24/16 at 21:00 Piperacillin Sod/ Tazobactam Sod (Zosyn 2.25gm/ 50ml (Pmx)) 50 ml @ 100 mls/hr Q8 IVPB Last administered on 09/27/16 06:16; Admin Dose 100 MLS/HR; Start at 17:15 Pantoprazole (Protonix Iv) 40 mg BID@06,18 IV Last administered on 09/27/16 06 :16; Admin Dose 40 MG; Start 09/24/16 at 18:00 Collagenase (Santyl) 1 applic DAILY TOP Last administered on 09/26/16 21:11; Admin Dose 1 APPLIC; Start 09/24/16 at 20:30 Insulin Aspart NOVOLOG *MILD* ALGORI... Q4 SC Last administered on 09/26/16 09 :57; Admin Dose 1 UNIT; Start 09/24/16 at 21:00 Phenylephrine HCl/ Dextrose (Eulogio-Syneph/D5W) 500 ml @ 75 mls/hr TITRATE IV Last administered on 09/24/16 22:04; Admin Dose 37.5 MLS/HR; Start 09/24/16 at 21:00 Miscellaneous Information 1 ea NOTE XX ; Start 09/24/16 at 21:00 Glucose (Glutose) 15 gm Q15M PRN PO DECREASED GLUCOSE; Start 09/24/16 at 21:00 Glucose (Glutose) 22.5 gm Q15M PRN PO DECREASED GLUCOSE; Start 09/24/16 at 21: 00 Dextrose (D50w Syringe) 25 ml Q15M PRN IV DECREASED GLUCOSE; Start 09/24/16 at 21:00 Dextrose (D50w Syringe) 50 ml Q15M PRN IV DECREASED GLUCOSE; Start 09/24/16 at 21:00 Glucagon (Glucagen) 1 mg Q15M PRN IM DECREASED GLUCOSE; Start 09/24/16 at 21:00 Glucose 15 gm 15 gm Q15M PRN BUCCAL DECREASED GLUCOSE; Start 09/24/16 at 21:00 Acetaminophen (Ofirmev 1000mg/ 100ml Iv) 100 ml @ 400 mls/hr Q6H PRN IVPB FEVER Last administered on 09/24/16 22:00; Admin Dose 400 MLS/HR; Start at 22:00 Mupirocin 1 applic 1 applic BID TOP Last administered on 09/27/16 08:49; Admin Dose 1 APPLIC; Start 09/25/16 at 21:00 Vancomycin HCl (Vancocin) 250 ml @ 125 mls/hr Q24H IVPB Last administered on 12:40; Admin Dose 125 MLS/HR; Start 09/26/16 at 13:00 Vancomycin HCl (Vancomycin Oral Syringe) 250 mg Q6 PO Last administered on 09/27 06:16; Admin Dose 250 MG; Start 09/26/16 at 18:00 Lactobacillus Acidoph/ Bulgaricus 1 tab 1 tab TID PO Last administered on 08:36; Admin Dose 1 TAB; Start 09/26/16 at 21:00 Potassium Chloride/Dextrose (D5W + KCl 20 Meq) 1,000 ml @ 75 mls/hr [id number] IV ; Start 09/27/16 at 10:00 MAIN SALTER 24, 2017 10:21
[2016-09-27] MEDS: D5W + KCL 20 MEQ 1,000 ML IV SCH ×2 (11:06→23:51)
--- NOTE | 2016-09-27 11:31 | CONS ---
Date/Time of Note Date/Time of Note DATE: 09/27/16 TIME: 11:28 Assessment/Plan Assessment/Plan Chief Complaint/Hosp Course SUBJECTIVE: No events overnight. The patient is off Levophed drip, afebrile. He is awake but noncommunicative ANTIMICROBIALS: 1. IV vancomycin. 2. Topical Bactroban to nares. 3. Zosyn. 4. PO Vanco INDWELLINGS: Trach, PEG, rectal tube, left subclavian triple lumen catheter, Cee catheter. PHYSICAL EXAMINATION: GENERAL: This is a chronically ill-appearing, well-developed, elderly English man who is lying comfortably in bed. HEENT: Head atraumatic, normocephalic. Sclerae anicteric. Buccal mucosa dry. NECK: Supple. Tracheostomy present. CHEST: Rise symmetrical. Breath sounds diminished to bases. HEART: S1, S2. ABDOMEN: Soft, bowel tones present. EXTREMITIES: Without cyanosis. ASSESSMENT: 1. Severe sepsis with shock==> off pressors. 2. Escherichia coli urinary tract infection with bacteremia. 3. Healthcare-associated pneumonia. 4. Methicillin-resistant Staphylococcus aureus nares colonization. 5. Multiple decubitus. 6. Persistent diarrhea, stool for Clostridium difficile negative. 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 7. History of cerebrovascular accident. 8. Dementia. PLAN: Improving, continue abx, await for final cx, local wound care per surgery , probiotics. GI/card/pulmonary rec-s DW staff Problems: Consultation Date/Type/Reason Admit Date/Time Sep 24, 2016 at 03:19 Initial Consult Date 09/24/16 Type of Consultation: id Referring Provider: ROULA DEL TORO Exam/Review of Systems Vital Signs Vitals Vital Signs Date Time Temp Pulse Resp B/P Pulse Ox O2 Delivery O2 Flow Rate FiO2 09/27/16 08:30 30 09/27/16 08:00 93 09/27/16 06:30 17 94 Mechanical Ventilator 09/27/16 04:30 99.0 Intake and Output 09/26/16 09/26/16 09/27/16 15:00 23:00 07:00 Intake Total 1396.24 ml 1221.25 ml 1237.49 ml Output Total 800 ml 365 ml 225 ml Balance 596.24 ml 856.25 ml 1012.49 ml Results Result Diagram: 09/27/16 0400 09/27/16 0400 Results 24 hrs Laboratory Tests Test 09/26/16 12:28 09/26/16 17:11 09/26/16 21:10 09/27/16 00:26 Bedside Glucose 113 125 126 122 Test 09/27/16 04:00 09/27/16 06:15 09/27/16 06:22 09/27/16 08:47 White Blood Count 15.7 #H Red Blood Count 3.52 L Hemoglobin 8.3 L Hematocrit 28.8 L Mean Corpuscular Volume 81.8 L Mean Corpuscular Hemoglobin 23.6 L Mean Corpuscular Hemoglobin Concent 28.8 L Red Cell Distribution Width 18.5 H Platelet Count 332 # Mean Platelet Volume 12.1 H Neutrophils % 89.9 H Lymphocytes % 5.9 L Monocytes % 2.9 Eosinophils % 0.6 Basophils % 0.1 Nucleated Red Blood Cells % 0.0 Neutrophils # 14.1 H Lymphocytes # 0.9 Monocytes # 0.5 Eosinophils # 0.1 Basophils # 0.0 Nucleated Red Blood Cells # 0.0 Prothrombin Time 15.8 H Prothrombin Time Ratio 1.2 INR International Normalized Ratio 1.25 Activated Partial Thromboplast Time 46.8 H Sodium Level 151 H Potassium Level 3.1 L Chloride Level 113 H Carbon Dioxide Level 26 Anion Gap 15 Blood Urea Nitrogen 97 H Creatinine 1.07 Glucose Level 100 Calcium Level 7.1 L Phosphorus Level 4.1 Albumin 1.9 L Bedside Glucose 119 113 Lactic Acid Level 1.7 Medications Medications Current Medications Metoclopramide HCl (Reglan) 10 mg Q6H PRN IV NAUSEA AND/OR VOMITING; Start at 03:00 Acetaminophen (Tylenol Supp) 650 mg Q4H PRN [place] PAIN LEVEL 1-3 OR FEVER; Start 09/24/16 at 03:00 Eye Lubricant 1 drop 1 drop TID BOTH EYES Last administered on 09/27/16 08:49 ; Admin Dose 1 DROP; Start 09/24/16 at 09:00 Norepinephrine 16 mg/Dextrose 500 ml @ 1.87 mls/hr TITRATE IV Last administered on 09/26/16 04:58; Admin Dose 1.87 MLS/HR; Start 09/24/16 at 04:00 Vasopressin/ Dextrose (Vasostrict/D5W) 60 ml @ 1.2 mls/hr Q12H IV Last administered on 09/25/16 08:22; Admin Dose 2.4 MLS/HR; Start 09/24/16 at 15:30 Sodium Hypochlorite 1 applic 1 applic BID IRR Last administered on 09/27/16 08 :49; Admin Dose 1 APPLIC; Start 09/24/16 at 21:00 Piperacillin Sod/ Tazobactam Sod (Zosyn 2.25gm/ 50ml (Pmx)) 50 ml @ 100 mls/hr Q8 IVPB Last administered on 09/27/16 06:16; Admin Dose 100 MLS/HR; Start at 17:15 Pantoprazole (Protonix Iv) 40 mg BID@06,18 IV Last administered on 09/27/16 06 :16; Admin Dose 40 MG; Start 09/24/16 at 18:00 Collagenase (Santyl) 1 applic DAILY TOP Last administered on 09/26/16 21:11; Admin Dose 1 APPLIC; Start 09/24/16 at 20:30 Insulin Aspart NOVOLOG *MILD* ALGORI... Q4 SC Last administered on 09/26/16 09 :57; Admin Dose 1 UNIT; Start 09/24/16 at 21:00 Phenylephrine HCl/ Dextrose (Eulogio-Syneph/D5W) 500 ml @ 75 mls/hr TITRATE IV Last administered on 09/24/16 22:04; Admin Dose 37.5 MLS/HR; Start 09/24/16 at 21:00 Miscellaneous Information 1 ea NOTE XX ; Start 09/24/16 at 21:00 Glucose (Glutose) 15 gm Q15M PRN PO DECREASED GLUCOSE; Start 09/24/16 at 21:00 Glucose (Glutose) 22.5 gm Q15M PRN PO DECREASED GLUCOSE; Start 09/24/16 at 21: 00 Dextrose (D50w Syringe) 25 ml Q15M PRN IV DECREASED GLUCOSE; Start 09/24/16 at 21:00 Dextrose (D50w Syringe) 50 ml Q15M PRN IV DECREASED GLUCOSE; Start 09/24/16 at 21:00 Glucagon (Glucagen) 1 mg Q15M PRN IM DECREASED GLUCOSE; Start 09/24/16 at 21:00 Glucose 15 gm 15 gm Q15M PRN BUCCAL DECREASED GLUCOSE; Start 09/24/16 at 21:00 Acetaminophen (Ofirmev 1000mg/ 100ml Iv) 100 ml @ 400 mls/hr Q6H PRN IVPB FEVER Last administered on 09/24/16 22:00; Admin Dose 400 MLS/HR; Start at 22:00 Mupirocin 1 applic 1 applic BID TOP Last administered on 09/27/16 08:49; Admin Dose 1 APPLIC; Start 09/25/16 at 21:00 Vancomycin HCl (Vancocin) 250 ml @ 125 mls/hr Q24H IVPB Last administered on 12:40; Admin Dose 125 MLS/HR; Start 09/26/16 at 13:00 Vancomycin HCl (Vancomycin Oral Syringe) 250 mg Q6 PO Last administered on 09/27 06:16; Admin Dose 250 MG; Start 09/26/16 at 18:00 Lactobacillus Acidoph/ Bulgaricus 1 tab 1 tab TID PO Last administered on 08:36; Admin Dose 1 TAB; Start 09/26/16 at 21:00 Potassium Chloride/Dextrose (D5W + KCl 20 Meq) 1,000 ml @ 75 mls/hr [id number] IV Last administered on 09/27/16 11:06; Admin Dose 75 MLS/HR; Start 09/27/16 at 10:00 CHRISTOPHER MCDONOUGH NP Sep 27, 2016 11:31
[2016-09-27] MEDS: VANCOMYCIN 1 GM in NS 250 ML IVPB SCH (12:39)
--- NOTE | 2016-09-27 13:48 | PN ---
Date/Time of Note Date/Time of Note DATE: 09/27/16 TIME: 13:46 Assessment/Plan VTE Prophylaxis VTE Prophylaxis Intervention: contraindicated, other (ulcers in legs) VTE Contraindication Reason: bleeding Lines/Catheters IV Catheter Type (from Nrsg): Central Line Central line still needed: Yes Urinary Cath still in place: Yes Reason Cath still needed: other (indicate) Assessment/Plan Assessment/Plan 81 yo M brought in from SN[facility] with 1. Severe sepsis with septic shock 2/2 #4 and 5 : improved and off pressor support 2. Severe hypernatremia 2/2 dehydration: improving 3. Acute renal failure 2/2 ATN from dehydration: improving 4. Ecoli bacteremia and UTI : 5. Multifocal pneumonia (E coli / A baumanii) 6. Encephalopathy ?acute versus acute on chronic (baseline unknown) 7. Hypochromic microcytic anemia likely 2/2 chronic Bleed 8. Hypokalemia: resolved 9. Probable GI bleed (Coffee ground drainage from G tube) 10. Severe multiple pressure ulcers PLAN: * Planned for EGD today * with current O2 requirements, may be transferred [facility] after procedure if ok with pulm * appreciate nephrology and pulm aggressive input * Continue broad spectrum abx / IVF hydration * Continue IV protonix for GI bleed and keep NGT to suction till no further drainage. * No surgical interventions for wounds at this time / appreciate surgery review , continue recommended wound care * With degree of sores, Patient may require diverting colostomy, will d/w Surgery. Patient however is an extremely poor candidate and with comorbidities and baseline encephalopathy may be more appropriate for hospice care instead. PROPHYLAXIS: SCDS / Protonix CRITICAL CARE TIME: >35 mins Subjective 24 Hr Interval Summary Free Text/Dictation Nursing reports no acute overnight events. now off pressors Stool now leaking around rectal tube Exam/Review of Systems Vital Signs Vitals Vital Signs Date Time Temp Pulse Resp B/P Pulse Ox O2 Delivery O2 Flow Rate FiO2 09/27/16 12:00 93 09/27/16 11:00 32 111/62 100 Mechanical Ventilator 09/27/16 08:30 30 09/27/16 08:00 98.5 Intake and Output 09/26/16 09/26/16 09/27/16 15:00 23:00 07:00 Intake Total 1396.24 ml 1221.25 ml 1337.49 ml Output Total 800 ml 365 ml 225 ml Balance 596.24 ml 856.25 ml 1112.49 ml Exam Constitutional: alert, distress, non-verbal Head: normocephalic Eyes: PERRL ENMT: other (trach to vent), No mucosa pink and moist Respiratory: crackles/rales (coarse), diminished breath sounds, No wheezing Cardiovascular: regular rate and rhythm Gastrointestinal: other (PEG ), soft Musculoskeletal: muscle weakness (L sided contractures and weakness), No nl extremities to inspection Neurological: focal weakness, other (non verbal), No nl mental status Results Result Diagram: 09/27/16 0400 09/27/16 0400 Results 24 hrs Laboratory Tests Test 09/26/16 17:11 09/26/16 21:10 09/27/16 00:26 09/27/16 04:00 Bedside Glucose 125 126 122 White Blood Count 15.7 #H Red Blood Count 3.52 L Hemoglobin 8.3 L Hematocrit 28.8 L Mean Corpuscular Volume 81.8 L Mean Corpuscular Hemoglobin 23.6 L Mean Corpuscular Hemoglobin Concent 28.8 L Red Cell Distribution Width 18.5 H Platelet Count 332 # Mean Platelet Volume 12.1 H Neutrophils % 89.9 H Lymphocytes % 5.9 L Monocytes % 2.9 Eosinophils % 0.6 Basophils % 0.1 Nucleated Red Blood Cells % 0.0 Neutrophils # 14.1 H Lymphocytes # 0.9 Monocytes # 0.5 Eosinophils # 0.1 Basophils # 0.0 Nucleated Red Blood Cells # 0.0 Prothrombin Time 15.8 H Prothrombin Time Ratio 1.2 INR International Normalized Ratio 1.25 Activated Partial Thromboplast Time 46.8 H Sodium Level 151 H Potassium Level 3.1 L Chloride Level 113 H Carbon Dioxide Level 26 Anion Gap 15 Blood Urea Nitrogen 97 H Creatinine 1.07 Glucose Level 100 Calcium Level 7.1 L Phosphorus Level 4.1 Albumin 1.9 L Test 09/27/16 06:15 09/27/16 06:22 09/27/16 08:47 09/27/16 12:38 Bedside Glucose 119 113 113 Lactic Acid Level 1.7 Medications Medications Current Medications Metoclopramide HCl (Reglan) 10 mg Q6H PRN IV NAUSEA AND/OR VOMITING; Start at 03:00 Acetaminophen (Tylenol Supp) 650 mg Q4H PRN [place] PAIN LEVEL 1-3 OR FEVER; Start 09/24/16 at 03:00 Eye Lubricant 1 drop 1 drop TID BOTH EYES Last administered on 09/27/16 12:38 ; Admin Dose 1 DROP; Start 09/24/16 at 09:00 Norepinephrine 16 mg/Dextrose 500 ml @ 1.87 mls/hr TITRATE IV Last administered on 09/26/16 04:58; Admin Dose 1.87 MLS/HR; Start 09/24/16 at 04:00 Vasopressin/ Dextrose (Vasostrict/D5W) 60 ml @ 1.2 mls/hr Q12H IV Last administered on 09/25/16 08:22; Admin Dose 2.4 MLS/HR; Start 09/24/16 at 15:30 Sodium Hypochlorite (Dakin'S (1/4 Strength)) 1 applic BID IRR Last administered on 09/27/16 08:49; Admin Dose 1 APPLIC; Start 09/24/16 at 21:00 Pantoprazole (Protonix Iv) 40 mg BID@06,18 IV Last administered on 09/27/16 06 :16; Admin Dose 40 MG; Start 09/24/16 at 18:00 Collagenase (Santyl) 1 applic DAILY TOP Last administered on 09/26/16 21:11; Admin Dose 1 APPLIC; Start 09/24/16 at 20:30 Insulin Aspart NOVOLOG *MILD* ALGORI... Q4 SC Last administered on 09/26/16 09 :57; Admin Dose 1 UNIT; Start 09/24/16 at 21:00 Phenylephrine HCl/ Dextrose (Eulogio-Syneph/D5W) 500 ml @ 75 mls/hr TITRATE IV Last administered on 09/24/16 22:04; Admin Dose 37.5 MLS/HR; Start 09/24/16 at 21:00 Miscellaneous Information 1 ea NOTE XX ; Start 09/24/16 at 21:00 Glucose (Glutose) 15 gm Q15M PRN PO DECREASED GLUCOSE; Start 09/24/16 at 21:00 Glucose (Glutose) 22.5 gm Q15M PRN PO DECREASED GLUCOSE; Start 09/24/16 at 21: 00 Dextrose (D50w Syringe) 25 ml Q15M PRN IV DECREASED GLUCOSE; Start 09/24/16 at 21:00 Dextrose (D50w Syringe) 50 ml Q15M PRN IV DECREASED GLUCOSE; Start 09/24/16 at 21:00 Glucagon (Glucagen) 1 mg Q15M PRN IM DECREASED GLUCOSE; Start 09/24/16 at 21:00 Glucose 15 gm 15 gm Q15M PRN BUCCAL DECREASED GLUCOSE; Start 09/24/16 at 21:00 Acetaminophen (Ofirmev 1000mg/ 100ml Iv) 100 ml @ 400 mls/hr Q6H PRN IVPB FEVER Last administered on 09/24/16 22:00; Admin Dose 400 MLS/HR; Start at 22:00 Mupirocin 1 applic 1 applic BID TOP Last administered on 09/27/16 08:49; Admin Dose 1 APPLIC; Start 09/25/16 at 21:00 Vancomycin HCl (Vancocin) 250 ml @ 125 mls/hr Q24H IVPB Last administered on 12:39; Admin Dose 125 MLS/HR; Start 09/26/16 at 13:00 Vancomycin HCl (Vancomycin Oral Syringe) 250 mg Q6 PO Last administered on 09/27 12:38; Admin Dose 250 MG; Start 09/26/16 at 18:00 Lactobacillus Acidoph/ Bulgaricus 1 tab 1 tab TID PO Last administered on 08:36; Admin Dose 1 TAB; Start 09/26/16 at 21:00 Potassium Chloride/Dextrose 1,000 ml @ 75 mls/hr [id number] IV Last administered on 09/27/16 11:06; Admin Dose 75 MLS/HR; Start 09/27/16 at 10:00 Piperacillin Sod/ Tazobactam Sod (Zosyn 3.375gm/ 100 ml (Pmx)) 100 ml @ 100 mls /hr Q8 IVPB ; Start 09/27/16 at 14:00 Procedures Procedures PROCEDURE: XR Chest. CLINICAL INDICATION: Pneumonia TECHNIQUE: Portable single view of the chest COMPARISON: 09/24 FINDINGS: Tracheostomy tube and left PICC line are again seen. Left lower lobe atelectasis or infiltrate and small effusion again seen. Patchy infiltrate in the right mid lung is likely unchanged. Pulmonary vascular congestion. IMPRESSION: No significant interval change. RPTAT: HLBE Maria Ines Miller, Physician Date Time Electronically viewed and signed by Maria Ines Miller, Physician on 09/27/2016 07 :32 LE/ CC: ABBI DELCID [facility] Sep 27, 2016 13:48
[2016-09-27] MEDS: PIPER-TAZO 3.375 GM IV (PMX) 100 ML IVPB SCH ×2 (14:42→21:49)
--- NOTE | 2016-09-27 15:42 | CONS ---
Date/Time of Note Date/Time of Note DATE: 09/27/16 TIME: 15:40 Assessment/Plan Assessment/Plan Additional Assessment/Plan Severe septic shock Preserved ejection fraction Moderate aortic stenosis Respiratory failure Coronary artery disease Anemia Acute kidney injury -Patient with improved blood pressure. Fluid management as per our nephrology colleagues. Would give 1 additional dose of potassium supplementation. Would hold any antihypertensives at the current time. Antibiotics as per infectious disease. Consultation Date/Type/Reason Admit Date/Time Sep 24, 2016 at 03:19 Initial Consult Date 09/24/16 Type of Consultation: cv Referring Provider: ROULA DEL TORO 24 HR Interval Summary Free Text/Dictation Patient seen and examined Exam/Review of Systems Vital Signs Vitals Vital Signs Date Time Temp Pulse Resp B/P Pulse Ox O2 Delivery O2 Flow Rate FiO2 09/27/16 14:55 96 23 100 30 09/27/16 14:00 107/63 Mechanical Ventilator 09/27/16 12:00 98.7 Intake and Output 09/26/16 09/26/16 09/27/16 15:00 23:00 07:00 Intake Total 1396.24 ml 1221.25 ml 1337.49 ml Output Total 800 ml 365 ml 225 ml Balance 596.24 ml 856.25 ml 1112.49 ml Exam Awake, no apparent distress Head: normocephalic Neck: other (Tracheostomy) Respiratory: other (Coarse breath sounds bilaterally, no wheezing) Cardiovascular: other (S1-S2 heard), regular rate and rhythm Gastrointestinal: bowel sounds, non-tender, other (No guarding), soft Extremities: edema (Trace), other (No cyanosis) Results Result Diagram: 09/27/16 0400 09/27/16 0400 Results 24 hrs Laboratory Tests Test 09/26/16 17:11 09/26/16 21:10 09/27/16 00:26 09/27/16 04:00 Bedside Glucose 125 126 122 White Blood Count 15.7 #H Red Blood Count 3.52 L Hemoglobin 8.3 L Hematocrit 28.8 L Mean Corpuscular Volume 81.8 L Mean Corpuscular Hemoglobin 23.6 L Mean Corpuscular Hemoglobin Concent 28.8 L Red Cell Distribution Width 18.5 H Platelet Count 332 # Mean Platelet Volume 12.1 H Neutrophils % 89.9 H Lymphocytes % 5.9 L Monocytes % 2.9 Eosinophils % 0.6 Basophils % 0.1 Nucleated Red Blood Cells % 0.0 Neutrophils # 14.1 H Lymphocytes # 0.9 Monocytes # 0.5 Eosinophils # 0.1 Basophils # 0.0 Nucleated Red Blood Cells # 0.0 Prothrombin Time 15.8 H Prothrombin Time Ratio 1.2 INR International Normalized Ratio 1.25 Activated Partial Thromboplast Time 46.8 H Sodium Level 151 H Potassium Level 3.1 L Chloride Level 113 H Carbon Dioxide Level 26 Anion Gap 15 Blood Urea Nitrogen 97 H Creatinine 1.07 Glucose Level 100 Calcium Level 7.1 L Phosphorus Level 4.1 Albumin 1.9 L Test 09/27/16 06:15 09/27/16 06:22 09/27/16 08:47 09/27/16 12:38 Bedside Glucose 119 113 113 Lactic Acid Level 1.7 Medications Medications Current Medications Metoclopramide HCl (Reglan) 10 mg Q6H PRN IV NAUSEA AND/OR VOMITING; Start at 03:00 Acetaminophen (Tylenol Supp) 650 mg Q4H PRN [place] PAIN LEVEL 1-3 OR FEVER; Start 09/24/16 at 03:00 Eye Lubricant 1 drop 1 drop TID BOTH EYES Last administered on 09/27/16 12:38 ; Admin Dose 1 DROP; Start 09/24/16 at 09:00 Norepinephrine 16 mg/Dextrose 500 ml @ 1.87 mls/hr TITRATE IV Last administered on 09/26/16 04:58; Admin Dose 1.87 MLS/HR; Start 09/24/16 at 04:00 Vasopressin/ Dextrose (Vasostrict/D5W) 60 ml @ 1.2 mls/hr Q12H IV Last administered on 09/25/16 08:22; Admin Dose 2.4 MLS/HR; Start 09/24/16 at 15:30 Sodium Hypochlorite (Dakin'S (1/4 Strength)) 1 applic BID IRR Last administered on 09/27/16 08:49; Admin Dose 1 APPLIC; Start 09/24/16 at 21:00 Pantoprazole (Protonix Iv) 40 mg BID@06,18 IV Last administered on 09/27/16 06 :16; Admin Dose 40 MG; Start 09/24/16 at 18:00 Collagenase (Santyl) 1 applic DAILY TOP Last administered on 09/26/16 21:11; Admin Dose 1 APPLIC; Start 09/24/16 at 20:30 Insulin Aspart NOVOLOG *MILD* ALGORI... Q4 SC Last administered on 09/26/16 09 :57; Admin Dose 1 UNIT; Start 09/24/16 at 21:00 Phenylephrine HCl/ Dextrose (Eulogio-Syneph/D5W) 500 ml @ 75 mls/hr TITRATE IV Last administered on 09/24/16 22:04; Admin Dose 37.5 MLS/HR; Start 09/24/16 at 21:00 Miscellaneous Information 1 ea NOTE XX ; Start 09/24/16 at 21:00 Glucose (Glutose) 15 gm Q15M PRN PO DECREASED GLUCOSE; Start 09/24/16 at 21:00 Glucose (Glutose) 22.5 gm Q15M PRN PO DECREASED GLUCOSE; Start 09/24/16 at 21: 00 Dextrose (D50w Syringe) 25 ml Q15M PRN IV DECREASED GLUCOSE; Start 09/24/16 at 21:00 Dextrose (D50w Syringe) 50 ml Q15M PRN IV DECREASED GLUCOSE; Start 09/24/16 at 21:00 Glucagon (Glucagen) 1 mg Q15M PRN IM DECREASED GLUCOSE; Start 09/24/16 at 21:00 Glucose 15 gm 15 gm Q15M PRN BUCCAL DECREASED GLUCOSE; Start 09/24/16 at 21:00 Acetaminophen (Ofirmev 1000mg/ 100ml Iv) 100 ml @ 400 mls/hr Q6H PRN IVPB FEVER Last administered on 09/24/16 22:00; Admin Dose 400 MLS/HR; Start at 22:00 Mupirocin 1 applic 1 applic BID TOP Last administered on 09/27/16 08:49; Admin Dose 1 APPLIC; Start 09/25/16 at 21:00 Vancomycin HCl (Vancocin) 250 ml @ 125 mls/hr Q24H IVPB Last administered on 12:39; Admin Dose 125 MLS/HR; Start 09/26/16 at 13:00 Vancomycin HCl (Vancomycin Oral Syringe) 250 mg Q6 PO Last administered on 09/27 12:38; Admin Dose 250 MG; Start 09/26/16 at 18:00 Lactobacillus Acidoph/ Bulgaricus 1 tab 1 tab TID PO Last administered on 08:36; Admin Dose 1 TAB; Start 09/26/16 at 21:00 Potassium Chloride/Dextrose 1,000 ml @ 75 mls/hr [id number] IV Last administered on 09/27/16 11:06; Admin Dose 75 MLS/HR; Start 09/27/16 at 10:00 Piperacillin Sod/ Tazobactam Sod (Zosyn 3.375gm/ 100 ml (Pmx)) 100 ml @ 100 mls /hr Q8 IVPB Last administered on 09/27/16 14:42; Admin Dose 100 MLS/HR; Start 09/27/16 at 14:00 Ryder Wild DO Sep 27, 2016 15:41
[2016-09-27] MEDS ORDERED: POTASSIUM CHLORIDE 20 MEQ POWDER FOR ORAL SOLN JT ONE (16:00)
--- NOTE | 2016-09-27 19:58 | PN ---
Date/Time of Note Date/Time of Note DATE: 09/27/16 TIME: 19:56 Assessment/Plan Lines/Catheters IV Catheter Type (from [facility]): Central Line Cee in Place (from [facility]): Yes Assessment/Plan Chief Complaint/Hosp Course 1. Shock (septic (UTI, pneumonia) plus or minus hypovolemic). Improving -Judicious fluid management -Supportive measures -Antibiotics -Transfuse as needed 2. Multiple decubitus ulcerations with necrotic tissue and deep tissue injury -Offload -Local care -Vitamin C -Eventual nutritional optimization -Debridement when and if stabilizes 3. Contracted state with functional quadriplegia -Offloading -Nutritional optimization when possible 4. Anemia -Monitor 5. Ventilator dependent respiratory failure -Ventilator management and pulmonary toilet 6. Renal insufficiency -Judicious fluid management -Avoid nephrotoxic agents 7. Coronary artery disease and history of non-ST elevation PR -Cardiac optimization Thank you Problems: Subjective 24 Hr Interval Summary Leukocytosis improving. Pressors weaned. No fevers or chills. No cough. No seizure. No rash. No vomiting. No blood per mouth or rectum. No bloating. No seizures. Exam/Review of Systems Vital Signs Vitals Vital Signs Date Time Temp Pulse Resp B/P Pulse Ox O2 Delivery O2 Flow Rate FiO2 09/27/16 18:00 90 19 99/55 100 Mechanical Ventilator 09/27/16 17:35 30 09/27/16 16:00 98.5 Intake and Output 09/26/16 09/26/16 09/27/16 15:00 23:00 07:00 Intake Total 1396.24 ml 1221.25 ml 1377.49 ml Output Total 800 ml 365 ml 255 ml Balance 596.24 ml 856.25 ml 1122.49 ml Exam Free Text/Dictation Constitutional: No alert, No oriented Psych: No nl mood/affect Head: atraumatic, normocephalic Eyes: nl conjunctiva, No EOMI, No icteric ENMT: mucosa pink and moist, nl external ears & nose Neck: jvd, other (Trach in place), No non-tender, No supple Respiratory: No congested cough, No labored breathing Cardiovascular: No regular rate and rhythm Gastrointestinal: non-tender, other (PEG in place), soft, No rebound or guarding Musculoskeletal: No joint tenderness, No nl extremities to inspection, No nl gait and stance Extremities: No calf tenderness, No cyanosis Neurological: No nl mental status, No nl speech, No nl strength Skin: rash or lesions (Multiple decubitus ulcerations with debris, necrotic tissue, deep tissue injury), No diaphoresis, No nl turgor Lymph: nontender Results Result Diagram: 09/27/1639909/27/160 EVA GUARDADO MD Sep 27, 2016 19:58
[2016-09-27] MEDS: COLLAGENASE 30 GM TUBE TOP SCH (21:10)
--- NOTE | 2016-09-27 23:35 | CONS ---
Date/Time of Note Date/Time of Note DATE: 09/27/16 TIME: 23:35 Assessment/Plan Assessment/Plan Chief Complaint/Hosp Course ANEMIA - NEAR- MICROCYTIC WITH INCREASED RDW DROP H/H DURING HOSPITALIZATION + ACD TRANSFUSE PRBC TO KEEP HB MORE THAN 8 TRANSFUSE NEEDED GI F-UP Stool OB, negative Monitor H&H every 8 hours, transfuse 2 units for hemoglobin less than 8 Continue PPI drips EGD PER Suchov LEUKOCYTOSIS- REACTIVE CONT ATB FOR SEPSIS THROMBOCYTOSIS REACTIVE SHOULD IMPROVE WITH RESOLUTION OF SEPSIS Severe sepsis with septic shock 2/2 #4 and 5 on aggressive pressor support Severe hypernatremic dehydration Acute renal failure 2/2 ATN from dehydration UTI Multifocal pneumonia Encephalopathy ?acute versus acute on chronic (baseline unknown) Hypokalemia Problems: Consultation Date/Type/Reason Admit Date/Time Sep 24, 2016 at 03:19 Initial Consult Date 09/24/16 Type of Consultation: hemeon Referring Provider: ROULA DEL TORO 24 HR Interval Summary Free Text/Dictation COUNT STABLE NO BLEEDING Exam/Review of Systems Vital Signs Vitals Vital Signs Date Time Temp Pulse Resp B/P Pulse Ox O2 Delivery O2 Flow Rate FiO2 09/27/16 22:00 91 25 97/54 100 Mechanical Ventilator 09/27/16 21:25 30 09/27/16 19:00 98.5 Intake and Output 09/26/16 09/26/16 09/27/16 15:00 23:00 07:00 Intake Total 1396.24 ml 1221.25 ml 1377.49 ml Output Total 800 ml 365 ml 255 ml Balance 596.24 ml 856.25 ml 1122.49 ml Exam Exam Constitutional: Awake Psych: nl mood/affect Head: normocephalic Eyes: EOMI, nl conjunctiva, nl lids ENMT: nl external ears & nose, nl lips & teeth, nl nasal mucosa & septum Respiratory: Tracheostomy on vent Cardiovascular: regular rate and rhythm Gastrointestinal: soft, non-tender Musculoskeletal: Contractures bilateral and Neurological: HEAD CONTROL CLERK II-XII intact Results Result Diagram: 09/27/16 0400 09/27/16 0400 Results 24 hrs Laboratory Tests Test 09/27/16 00:26 09/27/16 04:00 09/27/16 06:15 09/27/16 06:22 Bedside Glucose 122 119 White Blood Count 15.7 #H Red Blood Count 3.52 L Hemoglobin 8.3 L Hematocrit 28.8 L Mean Corpuscular Volume 81.8 L Mean Corpuscular Hemoglobin 23.6 L Mean Corpuscular Hemoglobin Concent 28.8 L Red Cell Distribution Width 18.5 H Platelet Count 332 # Mean Platelet Volume 12.1 H Neutrophils % 89.9 H Lymphocytes % 5.9 L Monocytes % 2.9 Eosinophils % 0.6 Basophils % 0.1 Nucleated Red Blood Cells % 0.0 Neutrophils # 14.1 H Lymphocytes # 0.9 Monocytes # 0.5 Eosinophils # 0.1 Basophils # 0.0 Nucleated Red Blood Cells # 0.0 Prothrombin Time 15.8 H Prothrombin Time Ratio 1.2 INR International Normalized Ratio 1.25 Activated Partial Thromboplast Time 46.8 H Sodium Level 151 H Potassium Level 3.1 L Chloride Level 113 H Carbon Dioxide Level 26 Anion Gap 15 Blood Urea Nitrogen 97 H Creatinine 1.07 Glucose Level 100 Calcium Level 7.1 L Phosphorus Level 4.1 Albumin 1.9 L Lactic Acid Level 1.7 Test 09/27/16 08:47 09/27/16 12:38 09/27/16 18:07 09/27/16 21:27 Bedside Glucose 113 113 115 107 Medications Medications Current Medications Metoclopramide HCl (Reglan) 10 mg Q6H PRN IV NAUSEA AND/OR VOMITING; Start at 03:00 Acetaminophen (Tylenol Supp) 650 mg Q4H PRN [place] PAIN LEVEL 1-3 OR FEVER; Start 09/24/16 at 03:00 Eye Lubricant 1 drop 1 drop TID BOTH EYES Last administered on 09/27/16 21:10 ; Admin Dose 1 DROP; Start 09/24/16 at 09:00 Norepinephrine 16 mg/Dextrose 500 ml @ 1.87 mls/hr TITRATE IV Last administered on 09/26/16 04:58; Admin Dose 1.87 MLS/HR; Start 09/24/16 at 04:00 Vasopressin/ Dextrose (Vasostrict/D5W) 60 ml @ 1.2 mls/hr Q12H IV Last administered on 09/25/16 08:22; Admin Dose 2.4 MLS/HR; Start 09/24/16 at 15:30 Sodium Hypochlorite (Dakin'S (1/4 Strength)) 1 applic BID IRR Last administered on 09/27/16 21:10; Admin Dose 1 APPLIC; Start 09/24/16 at 21:00 Pantoprazole (Protonix Iv) 40 mg BID@06,18 IV Last administered on 09/27/16 18 :09; Admin Dose 40 MG; Start 09/24/16 at 18:00 Collagenase (Santyl) 1 applic DAILY TOP Last administered on 09/27/16 21:10; Admin Dose 1 APPLIC; Start 09/24/16 at 20:30 Insulin Aspart NOVOLOG *MILD* ALGORI... Q4 SC Last administered on 09/26/16 09 :57; Admin Dose 1 UNIT; Start 09/24/16 at 21:00 Phenylephrine HCl/ Dextrose (Eulogio-Syneph/D5W) 500 ml @ 75 mls/hr TITRATE IV Last administered on 09/24/16 22:04; Admin Dose 37.5 MLS/HR; Start 09/24/16 at 21:00 Miscellaneous Information 1 ea NOTE XX ; Start 09/24/16 at 21:00 Glucose (Glutose) 15 gm Q15M PRN PO DECREASED GLUCOSE; Start 09/24/16 at 21:00 Glucose (Glutose) 22.5 gm Q15M PRN PO DECREASED GLUCOSE; Start 09/24/16 at 21: 00 Dextrose (D50w Syringe) 25 ml Q15M PRN IV DECREASED GLUCOSE; Start 09/24/16 at 21:00 Dextrose (D50w Syringe) 50 ml Q15M PRN IV DECREASED GLUCOSE; Start 09/24/16 at 21:00 Glucagon (Glucagen) 1 mg Q15M PRN IM DECREASED GLUCOSE; Start 09/24/16 at 21:00 Glucose 15 gm 15 gm Q15M PRN BUCCAL DECREASED GLUCOSE; Start 09/24/16 at 21:00 Acetaminophen (Ofirmev 1000mg/ 100ml Iv) 100 ml @ 400 mls/hr Q6H PRN IVPB FEVER Last administered on 09/24/16 22:00; Admin Dose 400 MLS/HR; Start at 22:00 Mupirocin 1 applic 1 applic BID TOP Last administered on 09/27/16 21:11; Admin Dose 1 APPLIC; Start 09/25/16 at 21:00 Vancomycin HCl (Vancocin) 250 ml @ 125 mls/hr Q24H IVPB Last administered on 12:39; Admin Dose 125 MLS/HR; Start 09/26/16 at 13:00 Vancomycin HCl (Vancomycin Oral Syringe) 250 mg Q6 PO Last administered on 09/27 18:22; Admin Dose 250 MG; Start 09/26/16 at 18:00 Lactobacillus Acidoph/ Bulgaricus 1 tab 1 tab TID PO Last administered on 08:36; Admin Dose 1 TAB; Start 09/26/16 at 21:00 Potassium Chloride/Dextrose 1,000 ml @ 75 mls/hr [id number] IV Last administered on 09/27/16 11:06; Admin Dose 75 MLS/HR; Start 09/27/16 at 10:00 Piperacillin Sod/ Tazobactam Sod (Zosyn 3.375gm/ 100 ml (Pmx)) 100 ml @ 100 mls /hr Q8 IVPB Last administered on 09/27/16 21:49; Admin Dose 100 MLS/HR; Start 09/27/16 at 14:00 Miscellaneous Information (*Rx Drug Level Order Reminder*) VANCO TR LEVEL PRIOR... ONCE ONCE XX ; Start 09/28/16 at 12:00; Stop 09/28/16 at 12:01 SCOTT RODRIGUES MD Sep 27, 2016 23:35
[2016-09-28] VITALS (35 sets, daily range): BP systolic 77–111; BP diastolic 41–73; PULSE 82–112; RESP 14–30
[2016-09-28] MEDS: INSULIN ASPART [NOVOLOG] 3 ML PEN SC SCH ×5 (00:01→17:06)
[2016-09-28] MEDS: IPRATROPIUM (HFA) 12.9 GM INHALER INH SCH ×6 (01:18→21:19)
[2016-09-28] MEDS: ALBUTEROL HFA 8 GM INHALER INH SCH ×6 (01:18→21:19)
[2016-09-28] MEDS: VASOPRESSIN 60 UNIT in DEXTROSE 5% 57 ML IV SCH ×2 (03:20→13:44)
[2016-09-28] MEDS: PIPER-TAZO 3.375 GM IV (PMX) 100 ML IVPB SCH ×3 (05:02→22:30)
[2016-09-28] MEDS: PANTOPRAZOLE 40 MG INJ IV SCH ×2 (05:02→17:06)
[2016-09-28] MEDS: VANCOMYCIN HCL 250 MG/5ML POSYG PO SCH ×3 (05:02→17:06)
[2016-09-28 06:12] LABS: ADD SCAN DIFF NO
[2016-09-28 06:14] LABS: ABNORMAL IP MESSAGE 1; BASOPHILS % 0.2 % (0.0-2.0); EOSINOPHILS # 0.1 10^3/ul (0.0-0.5); EOSINOPHILS % 0.4 % (0.0-7.0); HEMATOCRIT 28.4 % (42.0-52.0); HEMOGLOBIN 8.1 g/dl (14.0-18.0); LYMPHOCYTES % 7.8 % (15.0-51.0); MEAN CORPUSCULAR HEMOGLOBIN 23.4 pg (29.0-33.0); MEAN CORPUSCULAR HGB CONC 28.5 g/dl (32.0-37.0); MEAN CORPUSCULAR VOLUME 82.1 fl (82.0-101.0); MEAN PLATELET VOLUME 12.1 fl (7.4-10.4); MONOCYTE # 0.5 10^3/ul (0.3-0.9); MONOCYTES % 3.8 % (0.0-11.0); NEUTROPHIL # 10.7 10^3/ul (1.6-7.5); NEUTROPHILS % 87.2 % (39.0-77.0); PLATELET COUNT 325 10^3/UL (140-415); RED BLOOD COUNT 3.46 10^6/ul (4.70-6.10); RED CELL DISTRIBUTION WIDTH 19.1 % (11.5-14.5); WHITE BLOOD COUNT 12.2 10^3/ul (4.8-10.8)
[2016-09-28 06:24] LABS: POTASSIUM 3.4 mmol/L (3.5-5.1)
[2016-09-28 06:27] LABS: CREATININE 1.21 mg/dl (0.61-1.24); PHOSPHORUS 4.5 mg/dl (2.5-4.9)
[2016-09-28 06:28] LABS: CALCIUM 7.4 mg/dl (8.4-10.2)
--- NOTE | 2016-09-28 08:57 | PN ---
Date/Time of Note Date/Time of Note DATE: 09/28/16 TIME: 08:57 Assessment/Plan VTE Prophylaxis VTE Prophylaxis Intervention: SCD's Lines/Catheters IV Catheter Type (from Nrs): Central Line Central line still needed: Yes Urinary Cath still in place: Yes Reason Cath still needed: other (indicate) Assessment/Plan Assessment/Plan 81 yo M brought in from SNF with 1. Severe sepsis with septic shock 2/2 #4 and 5 : improved and off pressor support 2. Severe hypernatremia 2/2 dehydration: improving 3. Acute renal failure 2/2 ATN from dehydration: improving 4. Ecoli bacteremia and UTI : 5. Multifocal pneumonia (E coli / A baumanii) 6. 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 Hypochromic microcytic Iron deficiency anemia likely 2/2 chronic Bleed 8. Hypokalemia: resolved 9. Probable GI bleed (Coffee ground drainage from G tube) 10. Severe multiple pressure ulcers minfrected with multiple organisms including MRSA 11. Hx of severe C-diff/ pseudomembranous colitis PLAN: * D/W GI if no EGD, plan to transfer to tele * appreciate nephrology and pulm aggressive input * Continue broad spectrum abx/ appreciate ID input / IVF hydration per renal/ patient has been restarted on tube feeds * Complete 5 days of Iv iron supplementation and the switch to oral * Repeat blood cultures * No surgical interventions for wounds at this time, patient too unstable / appreciate surgery review, continue recommended wound care * With degree of sores, Patient may require diverting colostomy, will d/w Surgery. Patient however is an extremely poor candidate and with comorbidities and baseline encephalopathy is more appropriate for hospice care instead / f/u paliative care recs. PROPHYLAXIS: SCDS / Protonix CRITICAL CARE TIME: >35 mins Subjective 24 Hr Interval Summary Free Text/Dictation Patient seen and examined. remains stable off pressors Subjective hx not possible: pt non-verbal Exam/Review of Systems Vital Signs Vitals Vital Signs Date Time Temp Pulse Resp B/P Pulse Ox O2 Delivery O2 Flow Rate FiO2 09/28/16 08:00 98.8 95 24 110/60 100 Mechanical Ventilator 09/28/16 05:15 30 Intake and Output 09/27/16 09/27/16 09/28/16 15:00 23:00 07:00 Intake Total 1070 ml 740 ml 1085 ml Output Total 240 ml 210 ml 155 ml Balance 830 ml 530 ml 930 ml Exam Constitutional: alert, distress, non-verbal, no tracking Head: normocephalic Eyes: PERRL ENMT: other (trach to vent), No mucosa pink and moist Respiratory: crackles/rales (coarse), diminished breath sounds, No wheezing Cardiovascular: regular rate and rhythm Gastrointestinal: other (PEG ), soft Musculoskeletal: muscle weakness (L sided contractures and weakness), R sided moves spontaneously and requires restraints intermittently No nl extremities to inspection Neurological: focal weakness, other (non verbal), No nl mental status Results Result Diagram: 09/28/16 0500 09/28/16 0500 Results 24 hrs Laboratory Tests Test 09/27/16 12:38 09/27/16 18:07 09/27/16 21:27 09/28/16 04:46 Bedside Glucose 113 115 107 107 Test 09/28/16 05:00 White Blood Count 12.2 #H Red Blood Count 3.46 L Hemoglobin 8.1 L Hematocrit 28.4 L Mean Corpuscular Volume 82.1 Mean Corpuscular Hemoglobin 23.4 L Mean Corpuscular Hemoglobin Concent 28.5 L Red Cell Distribution Width 19.1 H Platelet Count 325 Mean Platelet Volume 12.1 H Neutrophils % 87.2 H Lymphocytes % 7.8 L Monocytes % 3.8 Eosinophils % 0.4 Basophils % 0.2 Nucleated Red Blood Cells % 0.0 Neutrophils # 10.7 H Lymphocytes # 1.0 Monocytes # 0.5 Eosinophils # 0.1 Basophils # 0.0 Nucleated Red Blood Cells # 0.0 Sodium Level 147 H Potassium Level 3.4 L Chloride Level 114 H Carbon Dioxide Level 25 Anion Gap 11 Blood Urea Nitrogen 90 H Creatinine 1.21 Glucose Level 93 Calcium Level 7.4 L Phosphorus Level 4.5 Albumin 2.0 L Medications Medications Current Medications Metoclopramide HCl (Reglan) 10 mg Q6H PRN IV NAUSEA AND/OR VOMITING; Start at 03:00 Acetaminophen (Tylenol Supp) 650 mg Q4H PRN [place] PAIN LEVEL 1-3 OR FEVER; Start 09/24/16 at 03:00 Eye Lubricant 1 drop 1 drop TID BOTH EYES Last administered on 09/27/16 21:10 ; Admin Dose 1 DROP; Start 09/24/16 at 09:00 Norepinephrine 16 mg/Dextrose 500 ml @ 1.87 mls/hr TITRATE IV Last administered on 09/26/16 04:58; Admin Dose 1.87 MLS/HR; Start 09/24/16 at 04:00 Vasopressin/ Dextrose (Vasostrict/D5W) 60 ml @ 1.2 mls/hr Q12H IV Last administered on 09/25/16 08:22; Admin Dose 2.4 MLS/HR; Start 09/24/16 at 15:30 Sodium Hypochlorite (Dakin'S (1/4 Strength)) 1 applic BID IRR Last administered on 09/27/16 21:10; Admin Dose 1 APPLIC; Start 09/24/16 at 21:00 Pantoprazole (Protonix Iv) 40 mg BID@06,18 IV Last administered on 09/28/16 05 :02; Admin Dose 40 MG; Start 09/24/16 at 18:00 Collagenase (Santyl) 1 applic DAILY TOP Last administered on 09/27/16 21:10; Admin Dose 1 APPLIC; Start 09/24/16 at 20:30 Insulin Aspart NOVOLOG *MILD* ALGORI... Q4 SC Last administered on 09/26/16 09 :57; Admin Dose 1 UNIT; Start 09/24/16 at 21:00 Phenylephrine HCl/ Dextrose (Eulogio-Syneph/D5W) 500 ml @ 75 mls/hr TITRATE IV Last administered on 09/24/16 22:04; Admin Dose 37.5 MLS/HR; Start 09/24/16 at 21:00 Miscellaneous Information 1 ea NOTE XX ; Start 09/24/16 at 21:00 Glucose (Glutose) 15 gm Q15M PRN PO DECREASED GLUCOSE; Start 09/24/16 at 21:00 Glucose (Glutose) 22.5 gm Q15M PRN PO DECREASED GLUCOSE; Start 09/24/16 at 21: 00 Dextrose (D50w Syringe) 25 ml Q15M PRN IV DECREASED GLUCOSE; Start 09/24/16 at 21:00 Dextrose (D50w Syringe) 50 ml Q15M PRN IV DECREASED GLUCOSE; Start 09/24/16 at 21:00 Glucagon (Glucagen) 1 mg Q15M PRN IM DECREASED GLUCOSE; Start 09/24/16 at 21:00 Glucose 15 gm 15 gm Q15M PRN BUCCAL DECREASED GLUCOSE; Start 09/24/16 at 21:00 Acetaminophen (Ofirmev 1000mg/ 100ml Iv) 100 ml @ 400 mls/hr Q6H PRN IVPB FEVER Last administered on 09/24/16 22:00; Admin Dose 400 MLS/HR; Start at 22:00 Mupirocin 1 applic 1 applic BID TOP Last administered on 09/27/16 21:11; Admin Dose 1 APPLIC; Start 09/25/16 at 21:00 Vancomycin HCl (Vancocin) 250 ml @ 125 mls/hr Q24H IVPB Last administered on 12:39; Admin Dose 125 MLS/HR; Start 09/26/16 at 13:00 Vancomycin HCl (Vancomycin Oral Syringe) 250 mg Q6 PO Last administered on 09/28 05:02; Admin Dose 250 MG; Start 09/26/16 at 18:00 Lactobacillus Acidoph/ Bulgaricus 1 tab 1 tab TID PO Last administered on 08:36; Admin Dose 1 TAB; Start 09/26/16 at 21:00 Potassium Chloride/Dextrose 1,000 ml @ 75 mls/hr [id number] IV Last administered on 09/27/16 23:51; Admin Dose 75 MLS/HR; Start 09/27/16 at 10:00 Piperacillin Sod/ Tazobactam Sod (Zosyn 3.375gm/ 100 ml (Pmx)) 100 ml @ 100 mls /hr Q8 IVPB Last administered on 09/28/16 05:02; Admin Dose 100 MLS/HR; Start 09/27/16 at 14:00 Miscellaneous Information (*Rx Drug Level Order Reminder*) VANCO TR LEVEL PRIOR... ONCE ONCE XX ; Start 09/28/16 at 12:00; Stop 09/28/16 at 12:01 Procedures Procedures PROCEDURE: XR Chest. CLINICAL INDICATION: Pneumonia TECHNIQUE: Portable single view of the chest COMPARISON: 09/24 FINDINGS: Tracheostomy tube and left PICC line are again seen. Left lower lobe atelectasis or infiltrate and small effusion again seen. Patchy infiltrate in the right mid lung is likely unchanged. Pulmonary vascular congestion. IMPRESSION: No significant interval change. RPTAT: HLBE Maria Ines Miller, Physician Date Time Electronically viewed and signed by Maria Ines Miller, Physician on 09/27/2016 07 :32 LE/ CC: ABBI DELCID MD, [facility] ROULA DEL TORO Sep 28, 2016 08:57
[2016-09-28] MEDS ORDERED: POTASSIUM CHLORIDE 250 ML IVPB ONE (09:00)
[2016-09-28] MEDS: LACTOBACILLUS CHEW TAB PO SCH ×3 (09:23→20:55)
[2016-09-28] MEDS: SODIUM HYPOCHLORITE 0.125% 473 ML BTL IRR SCH ×2 (09:23→20:56)
[2016-09-28] MEDS: ARTIFICIAL TEARS 15 ML OPH BOTH EYES SCH ×3 (09:24→20:56)
[2016-09-28] MEDS: MUPIROCIN 2% 22 GM OINT TOP SCH ×2 (09:25→20:56)
--- NOTE | 2016-09-28 09:35 | CONS ---
Date/Time of Note Date/Time of Note DATE: 09/28/16 TIME: 09:33 Assessment/Plan Assessment/Plan Additional Assessment/Plan Acute anemia Evaluate GI bleed versus chronic iron deficiency vs other etiology Stool OB, negative Monitor H&H every 8 hours, transfuse 2 units for hemoglobin less than 7.5 Monitor labs Continue PPI drips EGD if clinically indicated Sepsis Currently on antibiotics Infectious disease following Chronic respiratory failure on ventilator Management per Pulmonology Further recommendations depend on clinical course Patient seen in collaboration with Dr. Dawson Consultation Date/Type/Reason Admit Date/Time Sep 24, 2016 at 03:19 Initial Consult Date 09/24/16 Type of Consultation: Gastroenterology Referring Provider: ROULA DEL TORO 24 HR Interval Summary Free Text/Dictation Hemoglobin stable Tube feed with 80mL residual noted Exam/Review of Systems Vital Signs Vitals Vital Signs Date Time Temp Pulse Resp B/P Pulse Ox O2 Delivery O2 Flow Rate FiO2 09/28/16 08:00 98.8 95 24 110/60 100 Mechanical Ventilator 09/28/16 05:15 30 Intake and Output 09/27/16 09/27/16 09/28/16 15:00 23:00 07:00 Intake Total 1070 ml 740 ml 1085 ml Output Total 240 ml 210 ml 155 ml Balance 830 ml 530 ml 930 ml Exam Constitutional: Awake Psych: nl mood/affect Head: normocephalic Eyes: EOMI, nl conjunctiva, nl lids ENMT: nl external ears & nose, nl lips & teeth, nl nasal mucosa & septum Respiratory: Tracheostomy on vent Cardiovascular: regular rate and rhythm Gastrointestinal: soft, non-tender Musculoskeletal: Contractures bilateral and Neurological: 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 Results Result Diagram: 09/28/16 0500 09/28/16 0500 Results 24 hrs Laboratory Tests Test 09/27/16 12:38 09/27/16 18:07 09/27/16 21:27 09/28/16 04:46 Bedside Glucose 113 115 107 107 Test 09/28/16 05:00 09/28/16 09:23 White Blood Count 12.2 #H Red Blood Count 3.46 L Hemoglobin 8.1 L Hematocrit 28.4 L Mean Corpuscular Volume 82.1 Mean Corpuscular Hemoglobin 23.4 L Mean Corpuscular Hemoglobin Concent 28.5 L Red Cell Distribution Width 19.1 H Platelet Count 325 Mean Platelet Volume 12.1 H Neutrophils % 87.2 H Lymphocytes % 7.8 L Monocytes % 3.8 Eosinophils % 0.4 Basophils % 0.2 Nucleated Red Blood Cells % 0.0 Neutrophils # 10.7 H Lymphocytes # 1.0 Monocytes # 0.5 Eosinophils # 0.1 Basophils # 0.0 Nucleated Red Blood Cells # 0.0 Sodium Level 147 H Potassium Level 3.4 L Chloride Level 114 H Carbon Dioxide Level 25 Anion Gap 11 Blood Urea Nitrogen 90 H Creatinine 1.21 Glucose Level 93 Calcium Level 7.4 L Phosphorus Level 4.5 Albumin 2.0 L Bedside Glucose 111 Medications Medications Current Medications Metoclopramide HCl (Reglan) 10 mg Q6H PRN IV NAUSEA AND/OR VOMITING; Start at 03:00 Acetaminophen (Tylenol Supp) 650 mg Q4H PRN [place] PAIN LEVEL 1-3 OR FEVER; Start 09/24/16 at 03:00 Eye Lubricant 1 drop 1 drop TID BOTH EYES Last administered on 09/28/16 09:24 ; Admin Dose 1 DROP; Start 09/24/16 at 09:00 Norepinephrine 16 mg/Dextrose 500 ml @ 1.87 mls/hr TITRATE IV Last administered on 09/26/16 04:58; Admin Dose 1.87 MLS/HR; Start 09/24/16 at 04:00 Vasopressin/ Dextrose (Vasostrict/D5W) 60 ml @ 1.2 mls/hr Q12H IV Last administered on 09/25/16 08:22; Admin Dose 2.4 MLS/HR; Start 09/24/16 at 15:30 Sodium Hypochlorite (Dakin'S (1/4 Strength)) 1 applic BID IRR Last administered on 09/28/16 09:23; Admin Dose 1 APPLIC; Start 09/24/16 at 21:00 Pantoprazole (Protonix Iv) 40 mg BID@06,18 IV Last administered on 09/28/16 05 :02; Admin Dose 40 MG; Start 09/24/16 at 18:00 Collagenase (Santyl) 1 applic DAILY TOP Last administered on 09/27/16 21:10; Admin Dose 1 APPLIC; Start 09/24/16 at 20:30 Insulin Aspart NOVOLOG *MILD* ALGORI... Q4 SC Last administered on 09/26/16 09 :57; Admin Dose 1 UNIT; Start 09/24/16 at 21:00 Phenylephrine HCl/ Dextrose (Eulogio-Syneph/D5W) 500 ml @ 75 mls/hr TITRATE IV Last administered on 09/24/16 22:04; Admin Dose 37.5 MLS/HR; Start 09/24/16 at 21:00 Miscellaneous Information 1 ea NOTE XX ; Start 09/24/16 at 21:00 Glucose (Glutose) 15 gm Q15M PRN PO DECREASED GLUCOSE; Start 09/24/16 at 21:00 Glucose (Glutose) 22.5 gm Q15M PRN PO DECREASED GLUCOSE; Start 09/24/16 at 21: 00 Dextrose (D50w Syringe) 25 ml Q15M PRN IV DECREASED GLUCOSE; Start 09/24/16 at 21:00 Dextrose (D50w Syringe) 50 ml Q15M PRN IV DECREASED GLUCOSE; Start 09/24/16 at 21:00 Glucagon (Glucagen) 1 mg Q15M PRN IM DECREASED GLUCOSE; Start 09/24/16 at 21:00 Glucose 15 gm 15 gm Q15M PRN BUCCAL DECREASED GLUCOSE; Start 09/24/16 at 21:00 Acetaminophen (Ofirmev 1000mg/ 100ml Iv) 100 ml @ 400 mls/hr Q6H PRN IVPB FEVER Last administered on 09/24/16 22:00; Admin Dose 400 MLS/HR; Start at 22:00 Mupirocin 1 applic 1 applic BID TOP Last administered on 09/28/16 09:25; Admin Dose 1 APPLIC; Start 09/25/16 at 21:00 Vancomycin HCl (Vancocin) 250 ml @ 125 mls/hr Q24H IVPB Last administered on 12:39; Admin Dose 125 MLS/HR; Start 09/26/16 at 13:00 Vancomycin HCl (Vancomycin Oral Syringe) 250 mg Q6 PO Last administered on 09/28 05:02; Admin Dose 250 MG; Start 09/26/16 at 18:00 Lactobacillus Acidoph/ Bulgaricus 1 tab 1 tab TID PO Last administered on 09:23; Admin Dose 1 TAB; Start 09/26/16 at 21:00 Potassium Chloride/Dextrose 1,000 ml @ 75 mls/hr [id number] IV Last administered on 09/27/16 23:51; Admin Dose 75 MLS/HR; Start 09/27/16 at 10:00 Piperacillin Sod/ Tazobactam Sod (Zosyn 3.375gm/ 100 ml (Pmx)) 100 ml @ 100 mls /hr Q8 IVPB Last administered on 09/28/16 05:02; Admin Dose 100 MLS/HR; Start 09/27/16 at 14:00 Miscellaneous Information VANCO TR LEVEL PRIOR... ONCE ONCE XX ; Start at 12:00; Stop 09/28/16 at 12:01 Potassium Chloride (KCl 40 MEQ/250 ML NS) 250 ml @ 62.5 mls/hr ONCE ONCE IVPB Last administered on 09/28/16 09:22; Admin Dose 62.5 MLS/HR; Start 09/28/16 at 09:00; Stop 09/28/16 at 12:59 JOSE MARIA URENA Sep 28, 2016 09:35
--- NOTE | 2016-09-28 09:38 | CONS ---
Date/Time of Note Date/Time of Note DATE: 09/28/16 TIME: 09:37 Assessment/Plan Assessment/Plan Additional Assessment/Plan Severe septic shock Preserved ejection fraction Moderate aortic stenosis Respiratory failure Coronary artery disease Anemia Acute kidney injury -Patient with improved blood pressure. Fluid management as per our nephrology colleagues. Would hold any antihypertensives at the current time. Antibiotics as per infectious disease. Consultation Date/Type/Reason Admit Date/Time Sep 24, 2016 at 03:19 Hx of Present Illness The patient with no cahgne Psychological: No nl mood/affect Past Medical History Medical History: hypertension, urinary tract infection, other ( pneumonia.cronic respiratory failure,) Past Surgical History Past Surgical Hx: other (S/P tracheostomy,S/P PEG placement) Social History Alcohol Use: none Smoking Status: Unknown if ever smoked Drug Use: none Exam/Review of Systems Vital Signs Vitals Vital Signs Date Time Temp Pulse Resp B/P Pulse Ox O2 Delivery O2 Flow Rate FiO2 09/28/16 08:00 98.8 95 24 110/60 100 Mechanical Ventilator 09/28/16 05:15 30 Intake and Output 09/27/16 09/27/16 09/28/16 15:00 23:00 07:00 Intake Total 1070 ml 740 ml 1085 ml Output Total 240 ml 210 ml 155 ml Balance 830 ml 530 ml 930 ml Results Result Diagram: 09/28/16 0500 09/28/16 0500 Results 24 hrs Laboratory Tests Test 09/27/16 12:38 09/27/16 18:07 09/27/16 21:27 09/28/16 04:46 Bedside Glucose 113 115 107 107 Test 09/28/16 05:00 09/28/16 09:23 White Blood Count 12.2 #H Red Blood Count 3.46 L Hemoglobin 8.1 L Hematocrit 28.4 L Mean Corpuscular Volume 82.1 Mean Corpuscular Hemoglobin 23.4 L Mean Corpuscular Hemoglobin Concent 28.5 L Red Cell Distribution Width 19.1 H Platelet Count 325 Mean Platelet Volume 12.1 H Neutrophils % 87.2 H Lymphocytes % 7.8 L Monocytes % 3.8 Eosinophils % 0.4 Basophils % 0.2 Nucleated Red Blood Cells % 0.0 Neutrophils # 10.7 H Lymphocytes # 1.0 Monocytes # 0.5 Eosinophils # 0.1 Basophils # 0.0 Nucleated Red Blood Cells # 0.0 Sodium Level 147 H Potassium Level 3.4 L Chloride Level 114 H Carbon Dioxide Level 25 Anion Gap 11 Blood Urea Nitrogen 90 H Creatinine 1.21 Glucose Level 93 Calcium Level 7.4 L Phosphorus Level 4.5 Albumin 2.0 L Bedside Glucose 111 Medications Medications Current Medications Metoclopramide HCl (Reglan) 10 mg Q6H PRN IV NAUSEA AND/OR VOMITING; Start at 03:00 Acetaminophen (Tylenol Supp) 650 mg Q4H PRN [place] PAIN LEVEL 1-3 OR FEVER; Start 09/24/16 at 03:00 Eye Lubricant 1 drop 1 drop TID BOTH EYES Last administered on 09/28/16 09:24 ; Admin Dose 1 DROP; Start 09/24/16 at 09:00 Norepinephrine 16 mg/Dextrose 500 ml @ 1.87 mls/hr TITRATE IV Last administered on 09/26/16 04:58; Admin Dose 1.87 MLS/HR; Start 09/24/16 at 04:00 Vasopressin/ Dextrose (Vasostrict/D5W) 60 ml @ 1.2 mls/hr Q12H IV Last administered on 09/25/16 08:22; Admin Dose 2.4 MLS/HR; Start 09/24/16 at 15:30 Sodium Hypochlorite (Dakin'S (1/4 Strength)) 1 applic BID IRR Last administered on 09/28/16 09:23; Admin Dose 1 APPLIC; Start 09/24/16 at 21:00 Pantoprazole (Protonix Iv) 40 mg BID@06,18 IV Last administered on 09/28/16 05 :02; Admin Dose 40 MG; Start 09/24/16 at 18:00 Collagenase (Santyl) 1 applic DAILY TOP Last administered on 09/27/16 21:10; Admin Dose 1 APPLIC; Start 09/24/16 at 20:30 Insulin Aspart NOVOLOG *MILD* ALGORI... Q4 SC Last administered on 09/26/16 09 :57; Admin Dose 1 UNIT; Start 09/24/16 at 21:00 Phenylephrine HCl/ Dextrose (Eulogio-Syneph/D5W) 500 ml @ 75 mls/hr TITRATE IV Last administered on 09/24/16 22:04; Admin Dose 37.5 MLS/HR; Start 09/24/16 at 21:00 Miscellaneous Information 1 ea NOTE XX ; Start 09/24/16 at 21:00 Glucose (Glutose) 15 gm Q15M PRN PO DECREASED GLUCOSE; Start 09/24/16 at 21:00 Glucose (Glutose) 22.5 gm Q15M PRN PO DECREASED GLUCOSE; Start 09/24/16 at 21: 00 Dextrose (D50w Syringe) 25 ml Q15M PRN IV DECREASED GLUCOSE; Start 09/24/16 at 21:00 Dextrose (D50w Syringe) 50 ml Q15M PRN IV DECREASED GLUCOSE; Start 09/24/16 at 21:00 Glucagon (Glucagen) 1 mg Q15M PRN IM DECREASED GLUCOSE; Start 09/24/16 at 21:00 Glucose 15 gm 15 gm Q15M PRN BUCCAL DECREASED GLUCOSE; Start 09/24/16 at 21:00 Acetaminophen (Ofirmev 1000mg/ 100ml Iv) 100 ml @ 400 mls/hr Q6H PRN IVPB FEVER Last administered on 09/24/16 22:00; Admin Dose 400 MLS/HR; Start at 22:00 Mupirocin 1 applic 1 applic BID TOP Last administered on 09/28/16 09:25; Admin Dose 1 APPLIC; Start 09/25/16 at 21:00 Vancomycin HCl (Vancocin) 250 ml @ 125 mls/hr Q24H IVPB Last administered on 12:39; Admin Dose 125 MLS/HR; Start 09/26/16 at 13:00 Vancomycin HCl (Vancomycin Oral Syringe) 250 mg Q6 PO Last administered on 09/28 05:02; Admin Dose 250 MG; Start 09/26/16 at 18:00 Lactobacillus Acidoph/ Bulgaricus 1 tab 1 tab TID PO Last administered on 09:23; Admin Dose 1 TAB; Start 09/26/16 at 21:00 Potassium Chloride/Dextrose 1,000 ml @ 75 mls/hr [id number] IV Last administered on 09/27/16 23:51; Admin Dose 75 MLS/HR; Start 09/27/16 at 10:00 Piperacillin Sod/ Tazobactam Sod (Zosyn 3.375gm/ 100 ml (Pmx)) 100 ml @ 100 mls /hr Q8 IVPB Last administered on 09/28/16 05:02; Admin Dose 100 MLS/HR; Start 09/27/16 at 14:00 Miscellaneous Information VANCO TR LEVEL PRIOR... ONCE ONCE XX ; Start at 12:00; Stop 09/28/16 at 12:01 Potassium Chloride (KCl 40 MEQ/250 ML NS) 250 ml @ 62.5 mls/hr ONCE ONCE IVPB Last administered on 09/28/16 09:22; Admin Dose 62.5 MLS/HR; Start 09/28/16 at 09:00; Stop 09/28/16 at 12:59 HUGO DIAZ MD Sep 28, 2016 09:38
--- NOTE | 2016-09-28 09:47 | CONS ---
Date/Time of Note Date/Time of Note DATE: 09/28/16 TIME: 09:47 Assessment/Plan Assessment/Plan Chief Complaint/Hosp Course ID PROGRESS NOTE TOTAL ABX DAY # => Vanco IV, Zosyn, Vanco PO 24H INTERVAL SUMMARY * Non-communicative on Vent, VSS, NAD * Chart reviewed Result Diagram: 09/28/16 0500 09/28/16 0500 PHYSICAL EXAMINATION: GENERAL: VSS, NAD HEENT: Unremarkable NECK: Trach -> Secure to Vent CHEST: Equal chest rise bilaterally, without dyspnea on observation HEART: Pulse RRR ABDOMEN: Soft/peg EXTREMITIES: Warm SKIN: See hard chart skin assessment ID ASSESSMENT: 81 yo M w/PMHx CVA w/Dementia, contracted extremities, VDRF, Peg admit with: 1. Admited w/Severe sepsis with shock==> off pressors. 2. Escherichia coli urinary tract infection with bacteremia. 3. Healthcare-associated pneumonia. 4. Anemia w/concern for Probable GI bleed (Coffee ground drainage from G tube) 5. Multiple infected decubitus on admission w/necrosis and deep tissue injury= > Polymicrobial MDRO 6. Persistent diarrhea, stool for Clostridium difficile negative. 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 7. Coronary artery disease and history of non-ST elevation [place] 8. Renal insufficiency -> s/p ANGELICA resolved (+)MRSA Nares =>Bactroban onboard INVASIVES: L-SC TLC, Trach, Peg, Cee, Rectal Tube ABX ALLERGY: KNDA CURRENT ABX: => Vanco IV, Zosyn, Vanco PO ID RECOMMENDATIONS: 1. Continue current ABX => at high risk recurrent C.Diff on Zosyn; hence prophy Vanco GT warranted 2. Wound debridement when stable . . Problems: Consultation Date/Type/Reason Admit Date/Time Sep 24, 2016 at 03:19 Initial Consult Date 09/24/16 Type of Consultation: ID Referring Provider: ROULA DEL TORO Exam/Review of Systems Vital Signs Vitals Vital Signs Date Time Temp Pulse Resp B/P Pulse Ox O2 Delivery O2 Flow Rate FiO2 09/28/16 08:00 98.8 95 24 110/60 100 Mechanical Ventilator 09/28/16 05:15 30 Intake and Output 09/27/16 09/27/1609/28/17 15:00 23:00 07:00 Intake Total 1070 ml 740 ml 1085 ml Output Total 240 ml 210 ml 155 ml Balance 830 ml 530 ml 930 ml Results Result Diagram: 09/28/16 0500 09/28/16 0500 Results 24 hrs Laboratory Tests Test 09/27/16 12:38 09/27/16 18:07 09/27/16 21:27 09/28/16 04:46 Bedside Glucose 113 115 107 107 Test 09/28/16 05:00 09/28/16 09:23 White Blood Count 12.2 #H Red Blood Count 3.46 L Hemoglobin 8.1 L Hematocrit 28.4 L Mean Corpuscular Volume 82.1 Mean Corpuscular Hemoglobin 23.4 L Mean Corpuscular Hemoglobin Concent 28.5 L Red Cell Distribution Width 19.1 H Platelet Count 325 Mean Platelet Volume 12.1 H Neutrophils % 87.2 H Lymphocytes % 7.8 L Monocytes % 3.8 Eosinophils % 0.4 Basophils % 0.2 Nucleated Red Blood Cells % 0.0 Neutrophils # 10.7 H Lymphocytes # 1.0 Monocytes # 0.5 Eosinophils # 0.1 Basophils # 0.0 Nucleated Red Blood Cells # 0.0 Sodium Level 147 H Potassium Level 3.4 L Chloride Level 114 H Carbon Dioxide Level 25 Anion Gap 11 Blood Urea Nitrogen 90 H Creatinine 1.21 Glucose Level 93 Calcium Level 7.4 L Phosphorus Level 4.5 Albumin 2.0 L Bedside Glucose 111 Medications Medications Current Medications Metoclopramide HCl (Reglan) 10 mg Q6H PRN IV NAUSEA AND/OR VOMITING; Start at 03:00 Acetaminophen (Tylenol Supp) 650 mg Q4H PRN [place] PAIN LEVEL 1-3 OR FEVER; Start 09/24/16 at 03:00 Eye Lubricant 1 drop 1 drop TID BOTH EYES Last administered on 09/28/16 09:24 ; Admin Dose 1 DROP; Start 09/24/16 at 09:00 Norepinephrine 16 mg/Dextrose 500 ml @ 1.87 mls/hr TITRATE IV Last administered on 09/26/16 04:58; Admin Dose 1.87 MLS/HR; Start 09/24/16 at 04:00 Vasopressin/ Dextrose (Vasostrict/D5W) 60 ml @ 1.2 mls/hr Q12H IV Last administered on 09/25/16 08:22; Admin Dose 2.4 MLS/HR; Start 09/24/16 at 15:30 Sodium Hypochlorite (Dakin'S (1/4 Strength)) 1 applic BID IRR Last administered on 09/28/16 09:23; Admin Dose 1 APPLIC; Start 09/24/16 at 21:00 Pantoprazole (Protonix Iv) 40 mg BID@06,18 IV Last administered on 09/28/16 05 :02; Admin Dose 40 MG; Start 09/24/16 at 18:00 Collagenase (Santyl) 1 applic DAILY TOP Last administered on 09/27/16 21:10; Admin Dose 1 APPLIC; Start 09/24/16 at 20:30 Insulin Aspart NOVOLOG *MILD* ALGORI... Q4 SC Last administered on 09/26/16 09 :57; Admin Dose 1 UNIT; Start 09/24/16 at 21:00 Phenylephrine HCl/ Dextrose (Eulogio-Syneph/D5W) 500 ml @ 75 mls/hr TITRATE IV Last administered on 09/24/16 22:04; Admin Dose 37.5 MLS/HR; Start 09/24/16 at 21:00 Miscellaneous Information 1 ea NOTE XX ; Start 09/24/16 at 21:00 Glucose (Glutose) 15 gm Q15M PRN PO DECREASED GLUCOSE; Start 09/24/16 at 21:00 Glucose (Glutose) 22.5 gm Q15M PRN PO DECREASED GLUCOSE; Start 09/24/16 at 21: 00 Dextrose (D50w Syringe) 25 ml Q15M PRN IV DECREASED GLUCOSE; Start 09/24/16 at 21:00 Dextrose (D50w Syringe) 50 ml Q15M PRN IV DECREASED GLUCOSE; Start 09/24/16 at 21:00 Glucagon (Glucagen) 1 mg Q15M PRN IM DECREASED GLUCOSE; Start 09/24/16 at 21:00 Glucose 15 gm 15 gm Q15M PRN BUCCAL DECREASED GLUCOSE; Start 09/24/16 at 21:00 Acetaminophen (Ofirmev 1000mg/ 100ml Iv) 100 ml @ 400 mls/hr Q6H PRN IVPB FEVER Last administered on 09/24/16 22:00; Admin Dose 400 MLS/HR; Start at 22:00 Mupirocin 1 applic 1 applic BID TOP Last administered on 09/28/16 09:25; Admin Dose 1 APPLIC; Start 09/25/16 at 21:00 Vancomycin HCl (Vancocin) 250 ml @ 125 mls/hr Q24H IVPB Last administered on 12:39; Admin Dose 125 MLS/HR; Start 09/26/16 at 13:00 Vancomycin HCl (Vancomycin Oral Syringe) 250 mg Q6 PO Last administered on 09/28 05:02; Admin Dose 250 MG; Start 09/26/16 at 18:00 Lactobacillus Acidoph/ Bulgaricus 1 tab 1 tab TID PO Last administered on 09:23; Admin Dose 1 TAB; Start 09/26/16 at 21:00 Potassium Chloride/Dextrose 1,000 ml @ 75 mls/hr [id number] IV Last administered on 09/27/16 23:51; Admin Dose 75 MLS/HR; Start 09/27/16 at 10:00 Piperacillin Sod/ Tazobactam Sod (Zosyn 3.375gm/ 100 ml (Pmx)) 100 ml @ 100 mls /hr Q8 IVPB Last administered on 09/28/16 05:02; Admin Dose 100 MLS/HR; Start 09/27/16 at 14:00 Miscellaneous Information VANCO TR LEVEL PRIOR... ONCE ONCE XX ; Start at 12:00; Stop 09/28/16 at 12:01 Potassium Chloride (KCl 40 MEQ/250 ML NS) 250 ml @ 62.5 mls/hr ONCE ONCE IVPB Last administered on 09/28/16 09:22; Admin Dose 62.5 MLS/HR; Start 09/28/16 at 09:00; Stop 09/28/16 at 12:59 KUSHAL HOUSE NP Sep 28, 2016 09:47
--- NOTE | 2016-09-28 11:41 | CONS ---
Date/Time of Note Date/Time of Note DATE: 09/28/16 TIME: 11:39 Assessment/Plan Assessment/Plan Additional Assessment/Plan 1. Acute kidney injury versus acute kidney injury on chronic kidney disease. This is likely secondary to severe prerenal azotemia causing ischemic acute tubular necrosis. 2. Severe hyponatremia with a sodium of 165 due to the large volume of free water deficit, likely deficits up to 8-9 liters. 3. Contraction metabolic alkalosis with a bicarbonate of 40. 4. Septic shock with lactic acid of 8.7 secondary to urinary tract infection and pneumonia. on 3 pressors 5. History of chronic respiratory failure, status post tracheostomy, on ventilator. 6. History of G-tube. 7. Poor mental status due to the previous cerebrovascular accident. 8. History of dementia. 9. History of hypertension. PLAN: Na improved to 147,decrease IVF to D5W with 20 KCL at 50 cc/hr marginal urine output will follow up Total time spent int his patient follow up progress note, Updating Ancillary staff, Talked with SW to locate family member and communicating with Nursing Staff took more than 60 minutes Consultation Date/Type/Reason Admit Date/Time Sep 24, 2016 at 03:19 Initial Consult Date 09/24/16 Type of Consultation: NEPHROLOGY Referring Provider: ROULA DEL TORO 24 HR Interval Summary Free Text/Dictation Na improving, K low, stable ventilator settings Exam/Review of Systems Vital Signs Vitals Vital Signs Date Time Temp Pulse Resp B/P Pulse Ox O2 Delivery O2 Flow Rate FiO2 09/28/16 10:00 97 22 97/61 100 Mechanical Ventilator 09/28/16 08:00 98.8 09/28/16 08:00 30 Intake and Output 09/27/16 09/27/16 09/28/16 15:00 23:00 07:00 Intake Total 1070 ml 740 ml 1085 ml Output Total 240 ml 210 ml 155 ml Balance 830 ml 530 ml 930 ml Results Result Diagram: 09/28/16 0500 09/28/16 0500 Results 24 hrs Laboratory Tests Test 09/27/16 12:38 09/27/16 18:07 09/27/16 21:27 09/28/16 04:46 Bedside Glucose 113 115 107 107 Test 09/28/16 05:00 09/28/16 09:23 White Blood Count 12.2 #H Red Blood Count 3.46 L Hemoglobin 8.1 L Hematocrit 28.4 L Mean Corpuscular Volume 82.1 Mean Corpuscular Hemoglobin 23.4 L Mean Corpuscular Hemoglobin Concent 28.5 L Red Cell Distribution Width 19.1 H Platelet Count 325 Mean Platelet Volume 12.1 H Neutrophils % 87.2 H Lymphocytes % 7.8 L Monocytes % 3.8 Eosinophils % 0.4 Basophils % 0.2 Nucleated Red Blood Cells % 0.0 Neutrophils # 10.7 H Lymphocytes # 1.0 Monocytes # 0.5 Eosinophils # 0.1 Basophils # 0.0 Nucleated Red Blood Cells # 0.0 Sodium Level 147 H Potassium Level 3.4 L Chloride Level 114 H Carbon Dioxide Level 25 Anion Gap 11 Blood Urea Nitrogen 90 H Creatinine 1.21 Glucose Level 93 Calcium Level 7.4 L Phosphorus Level 4.5 Albumin 2.0 L Bedside Glucose 111 Medications Medications Current Medications Metoclopramide HCl (Reglan) 10 mg Q6H PRN IV NAUSEA AND/OR VOMITING; Start at 03:00 Acetaminophen (Tylenol Supp) 650 mg Q4H PRN [place] PAIN LEVEL 1-3 OR FEVER; Start 09/24/16 at 03:00 Eye Lubricant 1 drop 1 drop TID BOTH EYES Last administered on 09/28/16 09:24 ; Admin Dose 1 DROP; Start 09/24/16 at 09:00 Norepinephrine 16 mg/Dextrose 500 ml @ 1.87 mls/hr TITRATE IV Last administered on 09/26/16 04:58; Admin Dose 1.87 MLS/HR; Start 09/24/16 at 04:00 Vasopressin/ Dextrose (Vasostrict/D5W) 60 ml @ 1.2 mls/hr Q12H IV Last administered on 09/25/16 08:22; Admin Dose 2.4 MLS/HR; Start 09/24/16 at 15:30 Sodium Hypochlorite (Dakin'S (1/4 Strength)) 1 applic BID IRR Last administered on 09/28/16 09:23; Admin Dose 1 APPLIC; Start 09/24/16 at 21:00 Pantoprazole (Protonix Iv) 40 mg BID@06,18 IV Last administered on 09/28/16 05 :02; Admin Dose 40 MG; Start 09/24/16 at 18:00 Collagenase (Santyl) 1 applic DAILY TOP Last administered on 09/27/16 21:10; Admin Dose 1 APPLIC; Start 09/24/16 at 20:30 Insulin Aspart NOVOLOG *MILD* ALGORI... Q4 SC Last administered on 09/26/16 09 :57; Admin Dose 1 UNIT; Start 09/24/16 at 21:00 Phenylephrine HCl/ Dextrose (Eulogio-Syneph/D5W) 500 ml @ 75 mls/hr TITRATE IV Last administered on 09/24/16 22:04; Admin Dose 37.5 MLS/HR; Start 09/24/16 at 21:00 Miscellaneous Information 1 ea NOTE XX ; Start 09/24/16 at 21:00 Glucose (Glutose) 15 gm Q15M PRN PO DECREASED GLUCOSE; Start 09/24/16 at 21:00 Glucose (Glutose) 22.5 gm Q15M PRN PO DECREASED GLUCOSE; Start 09/24/16 at 21: 00 Dextrose (D50w Syringe) 25 ml Q15M PRN IV DECREASED GLUCOSE; Start 09/24/16 at 21:00 Dextrose (D50w Syringe) 50 ml Q15M PRN IV DECREASED GLUCOSE; Start 09/24/16 at 21:00 Glucagon (Glucagen) 1 mg Q15M PRN IM DECREASED GLUCOSE; Start 09/24/16 at 21:00 Glucose 15 gm 15 gm Q15M PRN BUCCAL DECREASED GLUCOSE; Start 09/24/16 at 21:00 Acetaminophen (Ofirmev 1000mg/ 100ml Iv) 100 ml @ 400 mls/hr Q6H PRN IVPB FEVER Last administered on 09/24/16 22:00; Admin Dose 400 MLS/HR; Start at 22:00 Mupirocin 1 applic 1 applic BID TOP Last administered on 09/28/16 09:25; Admin Dose 1 APPLIC; Start 09/25/16 at 21:00 Vancomycin HCl (Vancocin) 250 ml @ 125 mls/hr Q24H IVPB Last administered on 12:39; Admin Dose 125 MLS/HR; Start 09/26/16 at 13:00 Vancomycin HCl (Vancomycin Oral Syringe) 250 mg Q6 PO Last administered on 09/28 05:02; Admin Dose 250 MG; Start 3/23/17 at 18:00 Lactobacillus Acidoph/ Bulgaricus 1 tab 1 tab TID PO Last administered on 09:23; Admin Dose 1 TAB; Start 09/26/16 at 21:00 Potassium Chloride/Dextrose 1,000 ml @ 50 mls/hr Q20H IV Last administered on 09/27/16 23:51; Admin Dose 75 MLS/HR; Start 09/27/16 at 10:00 Piperacillin Sod/ Tazobactam Sod (Zosyn 3.375gm/ 100 ml (Pmx)) 100 ml @ 100 mls /hr Q8 IVPB Last administered on 09/28/16 05:02; Admin Dose 100 MLS/HR; Start 09/27/16 at 14:00 Miscellaneous Information VANCO TR LEVEL PRIOR... ONCE ONCE XX ; Start at 12:00; Stop 09/28/16 at 12:01 Potassium Chloride (KCl 40 MEQ/250 ML NS) 250 ml @ 62.5 mls/hr ONCE ONCE IVPB Last administered on 09/28/16 09:22; Admin Dose 62.5 MLS/HR; Start 09/28/16 at 09:00; Stop 09/28/16 at 12:59 MAGGIE DINERO MD Sep 28, 2016 11:41
[2016-09-28] MEDS: D5W + KCL 20 MEQ 1,000 ML IV SCH (12:03)
--- NOTE | 2016-09-28 13:11 | CONS ---
Date/Time of Note Date/Time of Note DATE: 09/28/16 TIME: 13:08 Assessment/Plan Assessment/Plan Additional Assessment/Plan Ventilator settings are AC of 16, tidal volume 500, PEEP of 5, 30% FiO2. Next Assessment recommendations; 1. Patient admitted for sepsis which is from left lower lobe pneumonia as well as sacral decubitus ulcers. Currently on appropriate antibiotic regimen. With improving leukocytosis. 2. Chronic respiratory failure. 3. Advanced dementia. 4. Hyper neutropenia with improved serum sodium. 5. Hypotension, with interval resolution. Patient off pressor support. 6. Anemia. Continue current treatment. Patient overall prognosis remains poor. Consultation Date/Type/Reason Admit Date/Time Sep 24, 2016 at 03:19 Initial Consult Date 09/24/16 Type of Consultation: Pulmonary/critical care Referring Provider: ROULA DEL TORO 24 HR Interval Summary Free Text/Dictation Patient condition remains stable. Remains off pressor support. Has remained hemodynamically stable. Due to advanced dementia patient is unresponsive. Other than minimal grimacing occasionally. General exam; elderly male, on ventilator via tracheostomy currently in no distress. Awake. Exam/Review of Systems Vital Signs Vitals Vital Signs Date Time Temp Pulse Resp B/P Pulse Ox O2 Delivery O2 Flow Rate FiO2 09/28/16 12:00 94 09/28/16 11:00 18 101/60 100 Mechanical Ventilator 09/28/16 08:00 98.8 09/28/16 08:00 30 Intake and Output 09/27/16 09/27/16 09/28/16 15:00 23:00 07:00 Intake Total 1070 ml 740 ml 1085 ml Output Total 240 ml 210 ml 155 ml Balance 830 ml 530 ml 930 ml Exam HEENT exam is; supple neck, no JVD. No lymphadenopathy. Midline trachea. No thyromegaly. Patient has a few missing teeth. Pupils are midsize reactive to light bilaterally. Tracheostomy in place with clean insertion site. Chest examination; diminished breath on lung bases bilaterally. Upper lobes are clear. S1-S2 audible, no murmurs. Regular rhythm. Abdomen examination; soft, nondistended. No organomegaly. G-tube in place. Bowel sounds audible. Back examination reveals dressing applied over the sacrum. Extremity examination; no peripheral edema. ACCOUNTS SUPERVISOR examination; patient remains unresponsive. Has severe contractures involving all 4 extremities. Results Result Diagram: 09/28/16 0500 09/28/16 0500 Results 24 hrs Laboratory Tests Test 09/27/16 18:07 09/27/16 21:27 09/28/16 04:46 09/28/16 05:00 Bedside Glucose 115 107 107 White Blood Count 12.2 #H Red Blood Count 3.46 L Hemoglobin 8.1 L Hematocrit 28.4 L Mean Corpuscular Volume 82.1 Mean Corpuscular Hemoglobin 23.4 L Mean Corpuscular Hemoglobin Concent 28.5 L Red Cell Distribution Width 19.1 H Platelet Count 325 Mean Platelet Volume 12.1 H Neutrophils % 87.2 H Lymphocytes % 7.8 L Monocytes % 3.8 Eosinophils % 0.4 Basophils % 0.2 Nucleated Red Blood Cells % 0.0 Neutrophils # 10.7 H Lymphocytes # 1.0 Monocytes # 0.5 Eosinophils # 0.1 Basophils # 0.0 Nucleated Red Blood Cells # 0.0 Sodium Level 147 H Potassium Level 3.4 L Chloride Level 114 H Carbon Dioxide Level 25 Anion Gap 11 Blood Urea Nitrogen 90 H Creatinine 1.21 Glucose Level 93 Calcium Level 7.4 L Phosphorus Level 4.5 Albumin 2.0 L Test 09/28/16 09:23 09/28/16 12:03 Bedside Glucose 111 105 Medications Medications Current Medications Metoclopramide HCl (Reglan) 10 mg Q6H PRN IV NAUSEA AND/OR VOMITING; Start at 03:00 Acetaminophen (Tylenol Supp) 650 mg Q4H PRN [place] PAIN LEVEL 1-3 OR FEVER; Start 09/24/16 at 03:00 Eye Lubricant 1 drop 1 drop TID BOTH EYES Last administered on 09/28/16 09:24 ; Admin Dose 1 DROP; Start 09/24/16 at 09:00 Norepinephrine 16 mg/Dextrose 500 ml @ 1.87 mls/hr TITRATE IV Last administered on 09/26/16 04:58; Admin Dose 1.87 MLS/HR; Start 09/24/16 at 04:00 Vasopressin/ Dextrose (Vasostrict/D5W) 60 ml @ 1.2 mls/hr Q12H IV Last administered on 09/25/16 08:22; Admin Dose 2.4 MLS/HR; Start 09/24/16 at 15:30 Sodium Hypochlorite (Dakin'S (1/4 Strength)) 1 applic BID IRR Last administered on 09/28/16 09:23; Admin Dose 1 APPLIC; Start 09/24/16 at 21:00 Pantoprazole (Protonix Iv) 40 mg BID@06,18 IV Last administered on 09/28/16 05 :02; Admin Dose 40 MG; Start 09/24/16 at 18:00 Collagenase (Santyl) 1 applic DAILY TOP Last administered on 09/27/16 21:10; Admin Dose 1 APPLIC; Start 09/24/16 at 20:30 Insulin Aspart NOVOLOG *MILD* ALGORI... Q4 SC Last administered on 09/26/16 09 :57; Admin Dose 1 UNIT; Start 09/24/16 at 21:00 Phenylephrine HCl/ Dextrose (Eulogio-Syneph/D5W) 500 ml @ 75 mls/hr TITRATE IV Last administered on 09/24/16 22:04; Admin Dose 37.5 MLS/HR; Start 09/24/16 at 21:00 Miscellaneous Information 1 ea NOTE XX ; Start 09/24/16 at 21:00 Glucose (Glutose) 15 gm Q15M PRN PO DECREASED GLUCOSE; Start 09/24/16 at 21:00 Glucose (Glutose) 22.5 gm Q15M PRN PO DECREASED GLUCOSE; Start 09/24/16 at 21: 00 Dextrose (D50w Syringe) 25 ml Q15M PRN IV DECREASED GLUCOSE; Start 09/24/16 at 21:00 Dextrose (D50w Syringe) 50 ml Q15M PRN IV DECREASED GLUCOSE; Start 09/24/16 at 21:00 Glucagon (Glucagen) 1 mg Q15M PRN IM DECREASED GLUCOSE; Start 09/24/16 at 21:00 Glucose 15 gm 15 gm Q15M PRN BUCCAL DECREASED GLUCOSE; Start 09/24/16 at 21:00 Acetaminophen (Ofirmev 1000mg/ 100ml Iv) 100 ml @ 400 mls/hr Q6H PRN IVPB FEVER Last administered on 09/24/16 22:00; Admin Dose 400 MLS/HR; Start at 22:00 Mupirocin 1 applic 1 applic BID TOP Last administered on 09/28/16 09:25; Admin Dose 1 APPLIC; Start 3/22/17 at 21:00 Vancomycin HCl (Vancocin) 250 ml @ 125 mls/hr Q24H IVPB Last administered on 12:39; Admin Dose 125 MLS/HR; Start 09/26/16 at 13:00 Vancomycin HCl (Vancomycin Oral Syringe) 250 mg Q6 PO Last administered on 09/28 12:04; Admin Dose 250 MG; Start 09/26/16 at 18:00 Lactobacillus Acidoph/ Bulgaricus 1 tab 1 tab TID PO Last administered on 12:04; Admin Dose 1 TAB; Start 09/26/16 at 21:00 Potassium Chloride/Dextrose 1,000 ml @ 50 mls/hr Q20H IV Last administered on 09/28/16 12:03; Admin Dose 50 MLS/HR; Start 09/27/16 at 10:00 Piperacillin Sod/ Tazobactam Sod (Zosyn 3.375gm/ 100 ml (Pmx)) 100 ml @ 100 mls /hr Q8 IVPB Last administered on 09/28/16 05:02; Admin Dose 100 MLS/HR; Start 09/27/16 at 14:00 MAIN SALTER 25, 2017 13:11
--- NOTE | 2016-09-28 13:31 | RADRPT ---
Vent Rate: 92 bpm RR Interval: 0 msec CO Interval: 130 msec QRS Duration: 106 msec QT Interval: 414 msec QTC Interval: 511 msec P-R-T [place]: 51 - -17 - 10 degrees Normal sinus rhythm Minimal voltage criteria for LVH, may be normal variant Prolonged QT Abnormal ECG Left axis deviation [REASON: QRS axis -31 to -90] Left anterior hemiblock Nonspecific ST-T changes No previous tracing available for comparison Electronically Signed By: Abhishek David [id number]
[2016-09-28] MEDS: VANCOMYCIN 1 GM in NS 250 ML IVPB SCH (15:11)
[2016-09-28] MEDS: ACETAMINOPHEN 1000MG/100ML IV 100 ML IVPB PRN (16:29)
--- NOTE | 2016-09-28 16:57 | PN ---
Date/Time of Note Date/Time of Note DATE: 09/28/16 TIME: 16:56 Assessment/Plan Lines/Catheters IV Catheter Type (from [facility]): Central Line Cee in Place (from [facility]): Yes Assessment/Plan Chief Complaint/Hosp Course 1. Shock (septic (UTI, pneumonia) plus or minus hypovolemic). Improving -Judicious fluid management -Supportive measures -Antibiotics -Transfuse as needed 2. Multiple decubitus ulcerations with necrotic tissue and deep tissue injury -Offload -Local care -Vitamin C -Eventual nutritional optimization -Debridement when medically cleared 3. Contracted state with functional quadriplegia -Offloading -Nutritional optimization when possible 4. Anemia -Monitor 5. Ventilator dependent respiratory failure -Ventilator management and pulmonary toilet 6. Renal insufficiency -Judicious fluid management -Avoid nephrotoxic agents 7. Coronary artery disease and history of non-ST elevation [place] -Cardiac optimization Thank you Problems: Subjective 24 Hr Interval Summary Leukocytosis improving. No fevers or chills. No cough. No seizure. No rash. No vomiting. No blood per mouth or rectum. No bloating. No seizures. Exam/Review of Systems Vital Signs Vitals Vital Signs Date Time Temp Pulse Resp B/P Pulse Ox O2 Delivery O2 Flow Rate FiO2 09/28/16 16:00 108 09/28/16 16:00 100.2 20 97/55 92 Mechanical Ventilator 09/28/16 08:00 30 Intake and Output 09/27/16 09/27/16 09/28/16 15:00 23:00 07:00 Intake Total 1070 ml 740 ml 1085 ml Output Total 240 ml 210 ml 155 ml Balance 830 ml 530 ml 930 ml Exam Free Text/Dictation Constitutional: No alert, No oriented Psych: No nl mood/affect Head: atraumatic, normocephalic Eyes: nl conjunctiva, No EOMI, No icteric ENMT: mucosa pink and moist, nl external ears & nose Neck: jvd, other (Trach in place), No non-tender, No supple Respiratory: No congested cough, No labored breathing Cardiovascular: No regular rate and rhythm Gastrointestinal: non-tender, other (PEG in place), soft, No rebound or guarding Musculoskeletal: No joint tenderness, No nl extremities to inspection, No nl gait and stance Extremities: No calf tenderness, No cyanosis Neurological: No nl mental status, No nl speech, No nl strength Skin: rash or lesions (Multiple decubitus ulcerations with debris, necrotic tissue, deep tissue injury), No diaphoresis, No nl turgor Lymph: nontender Results Result Diagram: 09/28/16 0500 09/28/16 0500 EVA GUARDADO MD Sep 28, 2016 16:57
[2016-09-28] MEDS: ATORVASTATIN 20 MG TAB GTB SCH (20:56)
--- NOTE | 2016-09-28 23:24 | CONS ---
Date/Time of Note Date/Time of Note DATE: 09/28/16 TIME: 23:20 Assessment/Plan Assessment/Plan Chief Complaint/Hosp Course ANEMIA - NEAR- MICROCYTIC WITH INCREASED RDW DROP H/H DURING HOSPITALIZATION + ACD TRANSFUSE PRBC TO KEEP HB MORE THAN 8 TRANSFUSE NEEDED Probable GI bleed (Coffee ground drainage from G tube) MONITOR CLOSELY Stool OB, negative Monitor H&H every 8 hours, transfuse 2 units for hemoglobin less than 8 Continue PPI drips EGD - PER [facility] LEUKOCYTOSIS- REACTIVE CONT ATB FOR SEPSIS THROMBOCYTOSIS REACTIVE SHOULD IMPROVE WITH RESOLUTION OF SEPSIS Severe sepsis with septic shock 2/2 #4 and 5 on aggressive pressor support Severe hypernatremic dehydration Acute renal failure 2/2 ATN from dehydration UTI Multifocal pneumonia Encephalopathy ?acute versus acute on chronic (baseline unknown) Hypokalemia Problems: Consultation Date/Type/Reason Admit Date/Time Sep 24, 2016 at 03:19 Initial Consult Date 09/24/16 Type of Consultation: HEMEONC Referring Provider: ROULA DEL TORO 24 HR Interval Summary Free Text/Dictation ALL NOTED NO BLEEDING Hemoglobin stable Tube feed with 80mL residual noted Exam/Review of Systems Vital Signs Vitals Vital Signs Date Time Temp Pulse Resp B/P Pulse Ox O2 Delivery O2 Flow Rate FiO2 09/28/16 23:00 93 20 107/57 100 Mechanical Ventilator 09/28/16 20:00 98.3 09/28/16 20:00 30 Intake and Output 09/27/16 09/27/16 09/28/16 15:00 23:00 07:00 Intake Total 1070 ml 740 ml 1085 ml Output Total 240 ml 210 ml 155 ml Balance 830 ml 530 ml 930 ml Exam Exam Constitutional: Awake Psych: nl mood/affect Head: normocephalic Eyes: EOMI, nl conjunctiva, nl lids ENMT: nl external ears & nose, nl lips & teeth, nl nasal mucosa & septum Respiratory: Tracheostomy on vent Cardiovascular: regular rate and rhythm Gastrointestinal: soft, non-tender Musculoskeletal: Contractures bilateral and 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 Results Result Diagram: 09/28/16 0500 09/28/16 0500 Results 24 hrs Laboratory Tests Test 09/28/16 04:46 09/28/16 05:00 09/28/16 09:23 09/28/16 12:03 Bedside Glucose 107 111 105 White Blood Count 12.2 #H Red Blood Count 3.46 L Hemoglobin 8.1 L Hematocrit 28.4 L Mean Corpuscular Volume 82.1 Mean Corpuscular Hemoglobin 23.4 L Mean Corpuscular Hemoglobin Concent 28.5 L Red Cell Distribution Width 19.1 H Platelet Count 325 Mean Platelet Volume 12.1 H Neutrophils % 87.2 H Lymphocytes % 7.8 L Monocytes % 3.8 Eosinophils % 0.4 Basophils % 0.2 Nucleated Red Blood Cells % 0.0 Neutrophils # 10.7 H Lymphocytes # 1.0 Monocytes # 0.5 Eosinophils # 0.1 Basophils # 0.0 Nucleated Red Blood Cells # 0.0 Sodium Level 147 H Potassium Level 3.4 L Chloride Level 114 H Carbon Dioxide Level 25 Anion Gap 11 Blood Urea Nitrogen 90 H Creatinine 1.21 Glucose Level 93 Calcium Level 7.4 L Phosphorus Level 4.5 Albumin 2.0 L Test 09/28/16 12:16 09/28/16 17:06 Vancomycin Level Trough 14.9 Bedside Glucose 125 Medications Medications Current Medications Metoclopramide HCl (Reglan) 10 mg Q6H PRN IV NAUSEA AND/OR VOMITING Last administered on 09/28/16 13:54; Admin Dose 10 MG; Start 09/24/16 at 03:00 Acetaminophen (Tylenol Supp) 650 mg Q4H PRN [place] PAIN LEVEL 1-3 OR FEVER; Start 09/24/16 at 03:00 Eye Lubricant (Artificial Tears Oph) 1 drop TID BOTH EYES Last administered on 09/28/16 20:56; Admin Dose 1 DROP; Start 09/24/16 at 09:00 Sodium Hypochlorite (Dakin'S (1/4 Strength)) 1 applic BID IRR Last administered on 09/28/16 20:56; Admin Dose 1 APPLIC; Start 09/24/16 at 21:00 Pantoprazole (Protonix Iv) 40 mg BID@06,18 IV Last administered on 09/28/16 17 :06; Admin Dose 40 MG; Start 09/24/16 at 18:00 Collagenase (Santyl) 1 applic DAILY TOP Last administered on 09/27/16 21:10; Admin Dose 1 APPLIC; Start 09/24/16 at 20:30 Miscellaneous Information 1 ea NOTE XX ; Start 09/24/16 at 21:00 Glucose (Glutose) 15 gm Q15M PRN PO DECREASED GLUCOSE; Start 09/24/16 at 21:00 Glucose (Glutose) 22.5 gm Q15M PRN PO DECREASED GLUCOSE; Start 09/24/16 at 21: 00 Dextrose (D50w Syringe) 25 ml Q15M PRN IV DECREASED GLUCOSE; Start 09/24/16 at 21:00 Dextrose (D50w Syringe) 50 ml Q15M PRN IV DECREASED GLUCOSE; Start 09/24/16 at 21:00 Glucagon (Glucagen) 1 mg Q15M PRN IM DECREASED GLUCOSE; Start 09/24/16 at 21:00 Glucose 15 gm 15 gm Q15M PRN BUCCAL DECREASED GLUCOSE; Start 09/24/16 at 21:00 Acetaminophen (Ofirmev 1000mg/ 100ml Iv) 100 ml @ 400 mls/hr Q6H PRN IVPB FEVER Last administered on 09/28/16 16:29; Admin Dose 400 MLS/HR; Start at 22:00 Mupirocin (Bactroban) 1 applic BID TOP Last administered on 09/28/16 20:56; Admin Dose 1 APPLIC; Start 09/25/16 at 21:00 Vancomycin HCl (Vancomycin Oral Syringe) 250 mg Q6 PO Last administered on 09/28 17:06; Admin Dose 250 MG; Start 09/26/16 at 18:00 Lactobacillus Acidoph/ Bulgaricus 1 tab 1 tab TID PO Last administered on 20:55; Admin Dose 1 TAB; Start 09/26/16 at 21:00 Potassium Chloride/Dextrose 1,000 ml @ 50 mls/hr Q20H IV Last administered on 09/28/16 12:03; Admin Dose 50 MLS/HR; Start 09/27/16 at 10:00 Piperacillin Sod/ Tazobactam Sod (Zosyn 3.375gm/ 100 ml (Pmx)) 100 ml @ 100 mls /hr Q8 IVPB Last administered on 09/28/16 22:30; Admin Dose 100 MLS/HR; Start 09/27/16 at 14:00 Atorvastatin Calcium (Lipitor) 20 mg QHS GTB Last administered on 09/28/16 20: 56; Admin Dose 20 MG; Start 09/28/16 at 21:00 Finasteride (Proscar) 5 mg DAILY GTB ; Start 09/29/16 at 09:00 Levothyroxine Sodium (Synthroid) 25 mcg DAILY@06 GTB ; Start 09/29/16 at 06:00 Multivitamins Therapeutic (Theragran) 1 tab DAILY GTB ; Start 09/29/16 at 09:00 Zinc Sulfate (Zinc Sulfate) 220 mg DAILY NGT ; Start 09/29/16 at 09:00 Insulin Aspart NOVOLOG *MILD* ALGORI... Q6 SC ; Start 09/28/16 at 18:00 Vancomycin HCl (Vancocin) 250 ml @ 125 mls/hr Q24H IVPB ; Start 09/29/16 at 16: 00 SCOTT RODRIGUES MD Sep 28, 2016 23:24
[2016-09-29] VITALS (39 sets, daily range): BP systolic 94–119; BP diastolic 50–77; PULSE 91–115; RESP 15–31
[2016-09-29] MEDS: VANCOMYCIN HCL 250 MG/5ML POSYG PO SCH ×4 (00:05→18:22)
[2016-09-29] MEDS: IPRATROPIUM (HFA) 12.9 GM INHALER INH SCH ×6 (01:04→21:31)
[2016-09-29] MEDS: ALBUTEROL HFA 8 GM INHALER INH SCH ×6 (01:04→21:32)
[2016-09-29 05:04] LABS: ADD SCAN DIFF NO
[2016-09-29 05:27] LABS: ABNORMAL IP MESSAGE 1; BASOPHILS % 0.2 % (0.0-2.0); EOSINOPHILS # 0.1 10^3/ul (0.0-0.5); EOSINOPHILS % 0.7 % (0.0-7.0); HEMATOCRIT 27.7 % (42.0-52.0); LYMPHOCYTES # 1.5 10^3/ul (0.8-2.9); MEAN CORPUSCULAR HEMOGLOBIN 23.7 pg (29.0-33.0); MEAN CORPUSCULAR HGB CONC 28.9 g/dl (32.0-37.0); MEAN PLATELET VOLUME 11.8 fl (7.4-10.4); MONOCYTE # 0.5 10^3/ul (0.3-0.9); NEUTROPHIL # 10.2 10^3/ul (1.6-7.5); NEUTROPHILS % 82.5 % (39.0-77.0); PLATELET COUNT 381 10^3/UL (140-415); RED BLOOD COUNT 3.38 10^6/ul (4.70-6.10); RED CELL DISTRIBUTION WIDTH 19.3 % (11.5-14.5); WHITE BLOOD COUNT 12.4 10^3/ul (4.8-10.8)
[2016-09-29 05:34] LABS: CREATININE 1.22 mg/dl (0.61-1.24)
[2016-09-29 05:35] LABS: CALCIUM 7.3 mg/dl (8.4-10.2); MAGNESIUM 3.2 mg/dl (1.7-2.5)
[2016-09-29] MEDS: INSULIN ASPART [NOVOLOG] 3 ML PEN SC SCH ×4 (06:00→18:00)
[2016-09-29] MEDS: LEVOTHYROXINE 25 MCG TAB GTB SCH (06:14)
[2016-09-29] MEDS: PIPER-TAZO 3.375 GM IV (PMX) 100 ML IVPB SCH ×3 (06:14→22:44)
[2016-09-29] MEDS: PANTOPRAZOLE 40 MG INJ IV SCH ×2 (06:14→18:22)
--- NOTE | 2016-09-29 07:27 | PN ---
Date/Time of Note Date/Time of Note DATE: 09/29/16 TIME: 07:14 Assessment/Plan VTE Prophylaxis VTE Prophylaxis Intervention: heparin Lines/Catheters IV Catheter Type (from [facility]): Central Line Central line still needed: Yes Urinary Cath still in place: Yes Reason Cath still needed: pres ulcer contaminated by urine Assessment/Plan Assessment/Plan 81 yo M brought in from SNF with 1. Severe sepsis with septic shock 2/2 #4 and 5 : improved and off pressor support 2. Severe hypernatremia 2/2 dehydration: improving 3. Acute renal failure 2/2 ATN from dehydration: improving 4. Ecoli bacteremia and UTI : 5. Multifocal pneumonia (E coli / A baumanii) 6. 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 Hypochromic microcytic Iron deficiency anemia likely 2/2 chronic Bleed 8. Hypokalemia: resolved 9. Probable GI bleed (Coffee ground drainage from G tube) 10. Severe multiple pressure ulcers infected with multiple organisms including MRSA 11. Hx of severe C-diff/ pseudomembranous colitis 12. Hypothyroidism with good control: Levothyroxine 13. Chronic Dysphagia 2/2 encephalopathy 14. Chronic resp failure ventilator dependent Via tracheostomy PLAN: * Patient remains a Tele hold * Monitor fever curve/ f/u repeat blood cultures / Change snider / if fever persists, d/w surgery re: possible debridement * Complete 5 days of Iv iron supplementation and the switch to oral * Continue current abx per ID / recommended wound care and supportive care * IVF managed per Nephro and patient has been restarted on tube feeds till family gives consent for EGD * Reduce tube feeds rate 2/2 residuals, add reglan * With degree of sores, Patient may require more aggressive intervention (? diverting colostomy) however will defer to surgery. Patient however is an extremely poor candidate and with comorbidities and baseline encephalopathy is more appropriate for hospice care instead / Palliative care consulted. PROPHYLAXIS: Start low dose heparin and monitor for bleeding / SCDS / Protonix CRITICAL CARE TIME: >35 mins Subjective 24 Hr Interval Summary Free Text/Dictation Patient seen and examined. * was having low grade fever yesterday, ?improving * leaking rectal tube reinsufflated by nursing * still waiting on to sign consent for colonoscopy * Having some tube residuals Subjective hx not possible: pt non-verbal Exam/Review of Systems Vital Signs Vitals Vital Signs Date Time Temp Pulse Resp B/P Pulse Ox O2 Delivery O2 Flow Rate FiO2 09/29/16 07:00 99 24 99/67 100 Mechanical Ventilator 09/29/16 05:18 30 09/29/16 04:00 98.0 Intake and Output 09/28/16 09/28/16 09/29/16 15:00 23:00 07:00 Intake Total 1325 ml 500 ml 1150 ml Output Total 310 ml 245 ml 340 ml Balance 1015 ml 255 ml 810 ml Exam Constitutional: alert, distress, non-verbal, no tracking Head: normocephalic Eyes: PERRL ENMT: other (trach to vent), No mucosa pink and moist Respiratory: crackles/rales (coarse), diminished breath sounds, No wheezing Cardiovascular: regular rate and rhythm Gastrointestinal: other (PEG ), soft Musculoskeletal: muscle weakness (L sided contractures and weakness), R sided moves spontaneously and requires restraints intermittently No nl extremities to inspection Neurological: focal weakness, other (non verbal), No nl mental status Results Result Diagram: 09/29/16 0435 09/29/16 0435 Results 24 hrs Laboratory Tests Test 09/28/16 09:23 09/28/16 12:03 09/28/16 12:16 09/28/16 17:06 Bedside Glucose 111 105 125 Vancomycin Level Trough 14.9 Test 09/29/16 00:09 09/29/16 04:35 09/29/16 06:13 Bedside Glucose 109 130 White Blood Count 12.4 H Red Blood Count 3.38 L Hemoglobin 8.0 L Hematocrit 27.7 L Mean Corpuscular Volume 82.0 Mean Corpuscular Hemoglobin 23.7 L Mean Corpuscular Hemoglobin Concent 28.9 L Red Cell Distribution Width 19.3 H Platelet Count 381 Mean Platelet Volume 11.8 H Neutrophils % 82.5 H Lymphocytes % 12.0 L Monocytes % 4.0 Eosinophils % 0.7 Basophils % 0.2 Nucleated Red Blood Cells % 0.0 Neutrophils # 10.2 H Lymphocytes # 1.5 Monocytes # 0.5 Eosinophils # 0.1 Basophils # 0.0 Nucleated Red Blood Cells # 0.0 Sodium Level 144 Potassium Level 4.0 Chloride Level 113 H Carbon Dioxide Level 24 Anion Gap 11 Blood Urea Nitrogen 85 H Creatinine 1.22 Glucose Level 106 Calcium Level 7.3 L Magnesium Level 3.2 H Medications Medications Current Medications Metoclopramide HCl (Reglan) 10 mg Q6H PRN IV NAUSEA AND/OR VOMITING Last administered on 09/28/16 13:54; Admin Dose 10 MG; Start 09/24/16 at 03:00 Acetaminophen (Tylenol Supp) 650 mg Q4H PRN [place] PAIN LEVEL 1-3 OR FEVER; Start 09/24/16 at 03:00 Eye Lubricant (Artificial Tears Oph) 1 drop TID BOTH EYES Last administered on 09/28/16 20:56; Admin Dose 1 DROP; Start 09/24/16 at 09:00 Sodium Hypochlorite (Dakin'S (1/4 Strength)) 1 applic BID IRR Last administered on 09/28/16 20:56; Admin Dose 1 APPLIC; Start 09/24/16 at 21:00 Pantoprazole (Protonix Iv) 40 mg BID@06,18 IV Last administered on 09/29/16 06 :14; Admin Dose 40 MG; Start 09/24/16 at 18:00 Collagenase (Santyl) 1 applic DAILY TOP Last administered on 09/27/16 21:10; Admin Dose 1 APPLIC; Start 09/24/16 at 20:30 Miscellaneous Information 1 ea NOTE XX ; Start 09/24/16 at 21:00 Glucose (Glutose) 15 gm Q15M PRN PO DECREASED GLUCOSE; Start 09/24/16 at 21:00 Glucose (Glutose) 22.5 gm Q15M PRN PO DECREASED GLUCOSE; Start 09/24/16 at 21: 00 Dextrose (D50w Syringe) 25 ml Q15M PRN IV DECREASED GLUCOSE; Start 09/24/16 at 21:00 Dextrose (D50w Syringe) 50 ml Q15M PRN IV DECREASED GLUCOSE; Start 09/24/16 at 21:00 Glucagon (Glucagen) 1 mg Q15M PRN IM DECREASED GLUCOSE; Start 09/24/16 at 21:00 Glucose 15 gm 15 gm Q15M PRN BUCCAL DECREASED GLUCOSE; Start 09/24/16 at 21:00 Acetaminophen (Ofirmev 1000mg/ 100ml Iv) 100 ml @ 400 mls/hr Q6H PRN IVPB FEVER Last administered on 09/28/16 16:29; Admin Dose 400 MLS/HR; Start at 22:00 Mupirocin (Bactroban) 1 applic BID TOP Last administered on 09/28/16 20:56; Admin Dose 1 APPLIC; Start 09/25/16 at 21:00 Vancomycin HCl (Vancomycin Oral Syringe) 250 mg Q6 PO Last administered on 09/29 06:14; Admin Dose 250 MG; Start 09/26/16 at 18:00 Lactobacillus Acidoph/ Bulgaricus 1 tab 1 tab TID PO Last administered on 20:55; Admin Dose 1 TAB; Start 09/26/16 at 21:00 Potassium Chloride/Dextrose 1,000 ml @ 50 mls/hr Q20H IV Last administered on 09/28/16 12:03; Admin Dose 50 MLS/HR; Start 09/27/16 at 10:00 Piperacillin Sod/ Tazobactam Sod (Zosyn 3.375gm/ 100 ml (Pmx)) 100 ml @ 100 mls /hr Q8 IVPB Last administered on 09/29/16 06:14; Admin Dose 100 MLS/HR; Start 09/27/16 at 14:00 Atorvastatin Calcium (Lipitor) 20 mg QHS GTB Last administered on 09/28/16 20: 56; Admin Dose 20 MG; Start 09/28/16 at 21:00 Finasteride (Proscar) 5 mg DAILY GTB ; Start 09/29/16 at 09:00 Levothyroxine Sodium (Synthroid) 25 mcg DAILY@06 GTB Last administered on 06:14; Admin Dose 25 MCG; Start 09/29/16 at 06:00 Multivitamins Therapeutic (Theragran) 1 tab DAILY GTB ; Start 09/29/16 at 09:00 Zinc Sulfate (Zinc Sulfate) 220 mg DAILY NGT ; Start 09/29/16 at 09:00 Insulin Aspart NOVOLOG *MILD* ALGORI... Q6 SC ; Start 09/28/16 at 18:00 Vancomycin HCl (Vancocin) 250 ml @ 125 mls/hr Q24H IVPB ; Start 09/29/16 at 16: 00 ROULA DEL TORO Sep 29, 2016 07:25
--- NOTE | 2016-09-29 08:43 | CONS ---
Date/Time of Note Date/Time of Note DATE: 09/29/16 TIME: 08:43 Assessment/Plan Assessment/Plan Additional Assessment/Plan Acute anemia Evaluate GI bleed versus chronic iron deficiency vs other etiology Stool OB, negative Monitor H&H every 8 hours, transfuse 2 units for hemoglobin less than 7.5 Monitor labs Continue PPI drips EGD if clinically indicated Sepsis Currently on antibiotics Infectious disease following Chronic respiratory failure on ventilator Management per Pulmonology Further recommendations depend on clinical course Patient seen in collaboration with Dr. Dawson Consultation Date/Type/Reason Admit Date/Time Sep 24, 2016 at 03:19 Initial Consult Date 09/24/16 Type of Consultation: GI Referring Provider: ROULA DEL TORO 24 HR Interval Summary Free Text/Dictation Hemoglobin stable Possible EGD if consent for anesthesia is obtained Exam/Review of Systems Vital Signs Vitals Vital Signs Date Time Temp Pulse Resp B/P Pulse Ox O2 Delivery O2 Flow Rate FiO2 09/29/16 07:00 99 24 99/67 100 Mechanical Ventilator 09/29/16 05:18 30 09/29/16 04:00 98.0 Intake and Output 09/28/16 09/28/16 09/29/16 15:00 23:00 07:00 Intake Total 1325 ml 500 ml 1150 ml Output Total 310 ml 245 ml 340 ml Balance 1015 ml 255 ml 810 ml Exam Constitutional: Awake Psych: nl mood/affect Head: normocephalic Eyes: EOMI, nl conjunctiva, nl lids ENMT: nl external ears & nose, nl lips & teeth, nl nasal mucosa & septum Respiratory: Tracheostomy on vent Cardiovascular: regular rate and rhythm Gastrointestinal: soft, non-tender Musculoskeletal: Contractures bilateral and 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 Results Result Diagram: 09/29/16 0435 09/29/16 0435 Results 24 hrs Laboratory Tests Test 09/28/16 09:23 09/28/16 12:03 09/28/16 12:16 09/28/16 17:06 Bedside Glucose 111 105 125 Vancomycin Level Trough 14.9 Test 09/29/16 00:09 09/29/16 04:35 09/29/16 06:13 Bedside Glucose 109 130 White Blood Count 12.4 H Red Blood Count 3.38 L Hemoglobin 8.0 L Hematocrit 27.7 L Mean Corpuscular Volume 82.0 Mean Corpuscular Hemoglobin 23.7 L Mean Corpuscular Hemoglobin Concent 28.9 L Red Cell Distribution Width 19.3 H Platelet Count 381 Mean Platelet Volume 11.8 H Neutrophils % 82.5 H Lymphocytes % 12.0 L Monocytes % 4.0 Eosinophils % 0.7 Basophils % 0.2 Nucleated Red Blood Cells % 0.0 Neutrophils # 10.2 H Lymphocytes # 1.5 Monocytes # 0.5 Eosinophils # 0.1 Basophils # 0.0 Nucleated Red Blood Cells # 0.0 Sodium Level 144 Potassium Level 4.0 Chloride Level 113 H Carbon Dioxide Level 24 Anion Gap 11 Blood Urea Nitrogen 85 H Creatinine 1.22 Glucose Level 106 Calcium Level 7.3 L Magnesium Level 3.2 H Medications Medications Current Medications Acetaminophen (Tylenol Supp) 650 mg Q4H PRN [place] PAIN LEVEL 1-3 OR FEVER; Start 09/24/16 at 03:00 Eye Lubricant (Artificial Tears Oph) 1 drop TID BOTH EYES Last administered on 09/28/16 20:56; Admin Dose 1 DROP; Start 09/24/16 at 09:00 Sodium Hypochlorite (Dakin'S (1/4 Strength)) 1 applic BID IRR Last administered on 09/28/16 20:56; Admin Dose 1 APPLIC; Start 09/24/16 at 21:00 Pantoprazole (Protonix Iv) 40 mg BID@06,18 IV Last administered on 09/29/16 06 :14; Admin Dose 40 MG; Start 09/24/16 at 18:00 Collagenase (Santyl) 1 applic DAILY TOP Last administered on 09/27/16 21:10; Admin Dose 1 APPLIC; Start 09/24/16 at 20:30 Miscellaneous Information 1 ea NOTE XX ; Start 09/24/16 at 21:00 Glucose (Glutose) 15 gm Q15M PRN PO DECREASED GLUCOSE; Start 09/24/16 at 21:00 Glucose (Glutose) 22.5 gm Q15M PRN PO DECREASED GLUCOSE; Start 09/24/16 at 21: 00 Dextrose (D50w Syringe) 25 ml Q15M PRN IV DECREASED GLUCOSE; Start 09/24/16 at 21:00 Dextrose (D50w Syringe) 50 ml Q15M PRN IV DECREASED GLUCOSE; Start 09/24/16 at 21:00 Glucagon (Glucagen) 1 mg Q15M PRN IM DECREASED GLUCOSE; Start 09/24/16 at 21:00 Glucose 15 gm 15 gm Q15M PRN BUCCAL DECREASED GLUCOSE; Start 09/24/16 at 21:00 Acetaminophen (Ofirmev 1000mg/ 100ml Iv) 100 ml @ 400 mls/hr Q6H PRN IVPB FEVER Last administered on 09/28/16 16:29; Admin Dose 400 MLS/HR; Start at 22:00 Mupirocin (Bactroban) 1 applic BID TOP Last administered on 09/28/16 20:56; Admin Dose 1 APPLIC; Start 09/25/16 at 21:00 Vancomycin HCl (Vancomycin Oral Syringe) 250 mg Q6 PO Last administered on 09/29 06:14; Admin Dose 250 MG; Start 09/26/16 at 18:00 Lactobacillus Acidoph/ Bulgaricus 1 tab 1 tab TID PO Last administered on 20:55; Admin Dose 1 TAB; Start 09/26/16 at 21:00 Potassium Chloride/Dextrose 1,000 ml @ 50 mls/hr Q20H IV Last administered on 09/28/16 12:03; Admin Dose 50 MLS/HR; Start 09/27/16 at 10:00 Piperacillin Sod/ Tazobactam Sod (Zosyn 3.375gm/ 100 ml (Pmx)) 100 ml @ 100 mls /hr Q8 IVPB Last administered on 09/29/16 06:14; Admin Dose 100 MLS/HR; Start 09/27/16 at 14:00 Atorvastatin Calcium (Lipitor) 20 mg QHS GTB Last administered on 09/28/16 20: 56; Admin Dose 20 MG; Start 09/28/16 at 21:00 Finasteride (Proscar) 5 mg DAILY GTB ; Start 09/29/16 at 09:00 Levothyroxine Sodium (Synthroid) 25 mcg DAILY@06 GTB Last administered on 06:14; Admin Dose 25 MCG; Start 09/29/16 at 06:00 Multivitamins Therapeutic (Theragran) 1 tab DAILY GTB ; Start 09/29/16 at 09:00 Zinc Sulfate (Zinc Sulfate) 220 mg DAILY NGT ; Start 09/29/16 at 09:00 Insulin Aspart NOVOLOG *MILD* ALGORI... Q6 SC ; Start 09/28/16 at 18:00 Vancomycin HCl (Vancocin) 250 ml @ 125 mls/hr Q24H IVPB ; Start 09/29/16 at 16: 00 Metoclopramide HCl (Reglan) 5 mg Q6 IV ; Start 09/29/16 at 12:00; Stop 10/01/16 at 11:59 Ondansetron HCl (Zofran Inj) 4 mg Q6H PRN IV NAUSEA AND/OR VOMITING; Start at 07:30 Heparin Sodium (Porcine) (Heparin (5000 Units/0.5 ml)) 5,000 unit BID SC ; Start 09/29/16 at 09:00 JOSE MARIA URENA Sep 29, 2016 08:43
[2016-09-29] MEDS: ARTIFICIAL TEARS 15 ML OPH BOTH EYES SCH ×3 (09:47→20:27)
[2016-09-29] MEDS: FINASTERIDE 5 MG TAB GTB SCH (09:47)
[2016-09-29] MEDS: ZINC SULFATE 220 MG CAP NGT SCH (09:47)
[2016-09-29] MEDS: MULTIVITAMINS THERAPEUTIC TAB GTB SCH (09:47)
[2016-09-29] MEDS: SODIUM HYPOCHLORITE 0.125% 473 ML BTL IRR SCH ×2 (09:48→20:28)
[2016-09-29] MEDS: MUPIROCIN 2% 22 GM OINT TOP SCH ×2 (09:49→20:27)
[2016-09-29] MEDS: COLLAGENASE 30 GM TUBE TOP SCH (09:52)
[2016-09-29] MEDS: HEPARIN 5,000 UNIT/0.5 ML VIAL SC SCH ×2 (09:54→20:37)
--- NOTE | 2016-09-29 10:20 | CONS ---
Date/Time of Note Date/Time of Note DATE: 09/29/16 TIME: 10:17 Assessment/Plan Assessment/Plan Additional Assessment/Plan Ventilator settings are AC of 16, tidal volume 500, PEEP of 5, 30% FiO2. Assessment recommendations; 1. 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 2. Anemia. 3. Pneumonia. 4. Hypernatremia with interval resolution. Continue current treatment. Will obtain follow-up chest x-ray. Consultation Date/Type/Reason Admit Date/Time Sep 24, 2016 at 03:19 Initial Consult Date 09/24/16 Type of Consultation: Pulmonary/critical care Referring Provider: ROULA DEL TORO 24 HR Interval Summary Free Text/Dictation Patient condition remains stable. Has remained hemodynamically stable. Off pressor support. General exam; elderly male, on ventilator via tracheostomy awake but unresponsive to any commands. Patient currently in no distress. Exam/Review of Systems Vital Signs Vitals Vital Signs Date Time Temp Pulse Resp B/P Pulse Ox O2 Delivery O2 Flow Rate FiO2 09/29/16 08:15 107 09/29/16 07:00 24 99/67 100 Mechanical Ventilator 09/29/16 05:18 30 09/29/16 04:00 98.0 Intake and Output 09/28/16 09/28/16 09/29/16 15:00 23:00 07:00 Intake Total 1325 ml 500 ml 1150 ml Output Total 310 ml 245 ml 340 ml Balance 1015 ml 255 ml 810 ml Exam HEENT examination; supple neck, no JVD. No lymphadenopathy. Midline trachea. Tracheostomy in place. Chest examination diminished breath sounds bilaterally. No added sounds. S1-S2 audible, no murmurs. Regular rhythm. Next Abdomen examination; soft, no organomegaly. Bowel sounds audible. G-tube in place. Extremity examination; will peripheral edema. Patient has contractures involving all 4 extremities. QUILLER OPERATOR examination; patient is somewhat awake but unresponsive to any commands. Results Result Diagram: 09/29/16 0435 09/29/16 0435 Results 24 hrs Laboratory Tests Test 09/28/16 12:03 09/28/16 12:16 09/28/16 17:06 09/29/16 00:09 Bedside Glucose 105 125 109 Vancomycin Level Trough 14.9 Test 09/29/16 04:35 09/29/16 06:13 White Blood Count 12.4 H Red Blood Count 3.38 L Hemoglobin 8.0 L Hematocrit 27.7 L Mean Corpuscular Volume 82.0 Mean Corpuscular Hemoglobin 23.7 L Mean Corpuscular Hemoglobin Concent 28.9 L Red Cell Distribution Width 19.3 H Platelet Count 381 Mean Platelet Volume 11.8 H Neutrophils % 82.5 H Lymphocytes % 12.0 L Monocytes % 4.0 Eosinophils % 0.7 Basophils % 0.2 Nucleated Red Blood Cells % 0.0 Neutrophils # 10.2 H Lymphocytes # 1.5 Monocytes # 0.5 Eosinophils # 0.1 Basophils # 0.0 Nucleated Red Blood Cells # 0.0 Sodium Level 144 Potassium Level 4.0 Chloride Level 113 H Carbon Dioxide Level 24 Anion Gap 11 Blood Urea Nitrogen 85 H Creatinine 1.22 Glucose Level 106 Calcium Level 7.3 L Magnesium Level 3.2 H Bedside Glucose 130 Medications Medications Current Medications Acetaminophen (Tylenol Supp) 650 mg Q4H PRN [place] PAIN LEVEL 1-3 OR FEVER; Start 09/24/16 at 03:00 Eye Lubricant (Artificial Tears Oph) 1 drop TID BOTH EYES Last administered on 09/29/16 09:47; Admin Dose 1 DROP; Start 09/24/16 at 09:00 Sodium Hypochlorite (Dakin'S (1/4 Strength)) 1 applic BID IRR Last administered on 09/29/16 09:48; Admin Dose 1 APPLIC; Start 09/24/16 at 21:00 Pantoprazole (Protonix Iv) 40 mg BID@06,18 IV Last administered on 09/29/16 06 :14; Admin Dose 40 MG; Start 09/24/16 at 18:00 Collagenase (Santyl) 1 applic DAILY TOP Last administered on 09/29/16 09:52; Admin Dose 1 APPLIC; Start 09/24/16 at 20:30 Miscellaneous Information 1 ea NOTE XX ; Start 09/24/16 at 21:00 Glucose (Glutose) 15 gm Q15M PRN PO DECREASED GLUCOSE; Start 09/24/16 at 21:00 Glucose (Glutose) 22.5 gm Q15M PRN PO DECREASED GLUCOSE; Start 09/24/16 at 21: 00 Dextrose (D50w Syringe) 25 ml Q15M PRN IV DECREASED GLUCOSE; Start 09/24/16 at 21:00 Dextrose (D50w Syringe) 50 ml Q15M PRN IV DECREASED GLUCOSE; Start 09/24/16 at 21:00 Glucagon (Glucagen) 1 mg Q15M PRN IM DECREASED GLUCOSE; Start 09/24/16 at 21:00 Glucose 15 gm 15 gm Q15M PRN BUCCAL DECREASED GLUCOSE; Start 09/24/16 at 21:00 Acetaminophen (Ofirmev 1000mg/ 100ml Iv) 100 ml @ 400 mls/hr Q6H PRN IVPB FEVER Last administered on 09/28/16 16:29; Admin Dose 400 MLS/HR; Start at 22:00 Mupirocin (Bactroban) 1 applic BID TOP Last administered on 09/29/16 09:49; Admin Dose 1 APPLIC; Start 09/25/16 at 21:00 Vancomycin HCl (Vancomycin Oral Syringe) 250 mg Q6 PO Last administered on 09/29 06:14; Admin Dose 250 MG; Start 09/26/16 at 18:00 Lactobacillus Acidoph/ Bulgaricus 1 tab 1 tab TID PO Last administered on 20:55; Admin Dose 1 TAB; Start 09/26/16 at 21:00 Potassium Chloride/Dextrose 1,000 ml @ 50 mls/hr Q20H IV Last administered on 09/28/16 12:03; Admin Dose 50 MLS/HR; Start 09/27/16 at 10:00 Piperacillin Sod/ Tazobactam Sod (Zosyn 3.375gm/ 100 ml (Pmx)) 100 ml @ 100 mls /hr Q8 IVPB Last administered on 09/29/16 06:14; Admin Dose 100 MLS/HR; Start 09/27/16 at 14:00 Atorvastatin Calcium (Lipitor) 20 mg QHS GTB Last administered on 09/28/16 20: 56; Admin Dose 20 MG; Start 09/28/16 at 21:00 Finasteride (Proscar) 5 mg DAILY GTB Last administered on 09/29/16 09:47; Admin Dose 5 MG; Start 09/29/16 at 09:00 Levothyroxine Sodium (Synthroid) 25 mcg DAILY@06 GTB Last administered on 06:14; Admin Dose 25 MCG; Start 09/29/16 at 06:00 Multivitamins Therapeutic (Theragran) 1 tab DAILY GTB Last administered on 09/29 09:47; Admin Dose 1 TAB; Start 09/29/16 at 09:00 Zinc Sulfate (Zinc Sulfate) 220 mg DAILY NGT Last administered on 09/29/16 09: 47; Admin Dose 220 MG; Start 09/29/16 at 09:00 Insulin Aspart NOVOLOG *MILD* ALGORI... Q6 SC ; Start 09/28/16 at 18:00 Vancomycin HCl (Vancocin) 250 ml @ 125 mls/hr Q24H IVPB ; Start 09/29/16 at 16: 00 Metoclopramide HCl (Reglan) 5 mg Q6 IV ; Start 09/29/16 at 12:00; Stop 10/01/16 at 11:59 Ondansetron HCl (Zofran Inj) 4 mg Q6H PRN IV NAUSEA AND/OR VOMITING; Start at 07:30 Heparin Sodium (Porcine) (Heparin (5000 Units/0.5 ml)) 5,000 unit BID SC Last administered on 09/29/16 09:54; Admin Dose 5,000 UNIT; Start 09/29/16 at 09:00 MAIN SALTER Sep 29, 2016 10:20
[2016-09-29] MEDS: LACTOBACILLUS CHEW TAB PO SCH ×3 (10:24→20:27)
[2016-09-29] MEDS: D5W + KCL 20 MEQ 1,000 ML IV SCH (10:24)
--- NOTE | 2016-09-29 10:46 | RADRPT ---
PROCEDURE: US DVT. CLINICAL INDICATION: Bilateral lower extremity pain and swelling. TECHNIQUE: Multiple longitudinal and transverse images of the bilateral lower extremity veins were obtained with leonard scale and color Doppler imaging. 2D grayscale measurements with compression, co sheba Doppler flow, and augmentation was performed. The calf veins were interrogated as well. COMPARISON: No prior studies are available for comparison. FINDINGS: The study is limited due to limited patient mobility and suboptimal positioning. The right common femoral and superficial femoral veins are patent and normally compressible. Normal phasic flow patterns are seen. There is incomplete evaluation of the popliteal vein and distal to this region. The left lower extremity veins are not well evaluated due to patient contracture. IMPRESSION: 1. No evidence of a deep vein thrombosis involving the right common and superficial femoral veins. Incomplete evaluation of the popliteal veins and calf veins. 2. Incomplete evaluation of the left lower extremity veins due to patient's contracture. RPTAT: QQ .Daron Kimble MD, Date Time Electronically viewed and signed by .Daron Kimble MD, MD on 09/29/2016 10:46 .d/
--- NOTE | 2016-09-29 10:48 | RADRPT ---
PROCEDURE: US DVT. CLINICAL INDICATION: Bilateral upper extremity pain and swelling TECHNIQUE: Multiple longitudinal and transverse images of the bilateral upper extremity veins were obtained with leonard scale and color Doppler imaging. 2D grayscale measurements with compression, co sheba Doppler flow, and augmentation was performed. COMPARISON: No prior studies are available for comparison. FINDINGS: The right jugular vein, subclavian vein, axillary vein, and brachial veins are normally compressible throughout. Color flow demonstrates normal filling of the vessel. Normal waveforms are visualized and there is normal response to augmentation. The right radial vein is unremarkable as well. The left internal jugular vein is patent and normally compressible. Evaluation of the remainder of the left upper extremity is limited due to patient positioning. IMPRESSION: 1. No evidence of a deep vein thrombosis involving the right upper extremity. 2. Patent left internal jugular vein with incomplete evaluation of the remainder of the left upper extremity veins. RPTAT: QQ .Daron Kimble MD, MD Date Time Electronically viewed and signed by .Daron Kimble MD, on 09/29/2016 10:48 .d/
[2016-09-29] MEDS: METOCLOPRAMIDE 10 MG INJ IV SCH ×2 (12:37→18:22)
[2016-09-29] MEDS ORDERED: VANCOMYCIN 1 GM in NS 250 ML IVPB SCH (16:00)
--- NOTE | 2016-09-29 16:14 | CONS ---
Date/Time of Note Date/Time of Note DATE: 09/29/16 TIME: 16:12 Assessment/Plan Assessment/Plan Additional Assessment/Plan 1. Acute kidney injury versus acute kidney injury on chronic kidney disease. This is likely secondary to severe prerenal azotemia causing ischemic acute tubular necrosis. 2. Severe hyponatremia with a sodium of 165 due to the large volume of free water deficit, likely deficits up to 8-9 liters. 3. Contraction metabolic alkalosis with a bicarbonate of 40. 4. Septic shock with lactic acid of 8.7 secondary to urinary tract infection and pneumonia. on 3 pressors 5. History of chronic respiratory failure, status post tracheostomy, on ventilator. 6. History of G-tube. 7. Poor mental status due to the previous cerebrovascular accident. 8. History of dementia. 9. History of hypertension. PLAN: Na improved to 144, continue IVF D5W with 20 KCL at 50 cc/hr marginal urine output, Cr improved to 1.2, BUN 85 will follow up Total time spent int his patient follow up progress note, Updating Ancillary staff, Talked with SW to locate family member and communicating with Nursing Staff took more than 60 minutes Consultation Date/Type/Reason Admit Date/Time Sep 24, 2016 at 03:19 Initial Consult Date 09/24/16 Type of Consultation: NEPHROLOGY Referring Provider: ROULA DEL TORO 24 HR Interval Summary Free Text/Dictation Na improved to 144, Cr 1.2, BP stable Exam/Review of Systems Vital Signs Vitals Vital Signs Date Time Temp Pulse Resp B/P Pulse Ox O2 Delivery O2 Flow Rate FiO2 09/29/16 14:00 103 21 105/59 100 Mechanical Ventilator 09/29/16 12:00 99.9 09/29/16 08:00 30 Intake and Output 09/28/16 09/28/16 09/29/16 15:00 23:00 07:00 Intake Total 1325 ml 500 ml 1150 ml Output Total 310 ml 245 ml 340 ml Balance 1015 ml 255 ml 810 ml Exam GENERAL: noacute distress HEENT: Unremarkable NECK: Trach -> Secure to Vent CHEST: Equal chest rise bilaterally, without dyspnea on observation HEART: S1 S2 RRR no murmur ABDOMEN: Soft/peg EXTREMITIES: Warm SKIN: See hard chart skin assessment Results Result Diagram: 09/29/16 0435 09/29/16 0435 Results 24 hrs Laboratory Tests Test 09/28/16 17:06 09/29/16 00:09 09/29/16 04:35 09/29/16 06:13 Bedside Glucose 125 109 130 White Blood Count 12.4 H Red Blood Count 3.38 L Hemoglobin 8.0 L Hematocrit 27.7 L Mean Corpuscular Volume 82.0 Mean Corpuscular Hemoglobin 23.7 L Mean Corpuscular Hemoglobin Concent 28.9 L Red Cell Distribution Width 19.3 H Platelet Count 381 Mean Platelet Volume 11.8 H Neutrophils % 82.5 H Lymphocytes % 12.0 L Monocytes % 4.0 Eosinophils % 0.7 Basophils % 0.2 Nucleated Red Blood Cells % 0.0 Neutrophils # 10.2 H Lymphocytes # 1.5 Monocytes # 0.5 Eosinophils # 0.1 Basophils # 0.0 Nucleated Red Blood Cells # 0.0 Sodium Level 144 Potassium Level 4.0 Chloride Level 113 H Carbon Dioxide Level 24 Anion Gap 11 Blood Urea Nitrogen 85 H Creatinine 1.22 Glucose Level 106 Calcium Level 7.3 L Magnesium Level 3.2 H Test 09/29/16 12:38 Bedside Glucose 94 Medications Medications Current Medications Acetaminophen (Tylenol Supp) 650 mg Q4H PRN [place] PAIN LEVEL 1-3 OR FEVER; Start 09/24/16 at 03:00 Eye Lubricant (Artificial Tears Oph) 1 drop TID BOTH EYES Last administered on 09/29/16 09:47; Admin Dose 1 DROP; Start 09/24/16 at 09:00 Sodium Hypochlorite (Dakin'S (1/4 Strength)) 1 applic BID IRR Last administered on 09/29/16 09:48; Admin Dose 1 APPLIC; Start 09/24/16 at 21:00 Pantoprazole (Protonix Iv) 40 mg BID@,18 IV Last administered on 09/29/16 06 :14; Admin Dose 40 MG; Start 09/24/16 at 18:00 Collagenase (Santyl) 1 applic DAILY TOP Last administered on 09/29/16 09:52; Admin Dose 1 APPLIC; Start 09/24/16 at 20:30 Miscellaneous Information 1 ea NOTE XX ; Start 09/24/16 at 21:00 Glucose (Glutose) 15 gm Q15M PRN PO DECREASED GLUCOSE; Start 09/24/16 at 21:00 Glucose (Glutose) 22.5 gm Q15M PRN PO DECREASED GLUCOSE; Start 09/24/16 at 21: 00 Dextrose (D50w Syringe) 25 ml Q15M PRN IV DECREASED GLUCOSE; Start 09/24/16 at 21:00 Dextrose (D50w Syringe) 50 ml Q15M PRN IV DECREASED GLUCOSE; Start 09/24/16 at 21:00 Glucagon (Glucagen) 1 mg Q15M PRN IM DECREASED GLUCOSE; Start 09/24/16 at 21:00 Glucose 15 gm 15 gm Q15M PRN BUCCAL DECREASED GLUCOSE; Start 09/24/16 at 21:00 Acetaminophen (Ofirmev 1000mg/ 100ml Iv) 100 ml @ 400 mls/hr Q6H PRN IVPB FEVER Last administered on 09/28/16 16:29; Admin Dose 400 MLS/HR; Start at 22:00 Mupirocin (Bactroban) 1 applic BID TOP Last administered on 09/29/16 09:49; Admin Dose 1 APPLIC; Start 09/25/16 at 21:00 Vancomycin HCl (Vancomycin Oral Syringe) 250 mg Q6 PO Last administered on 09/29 12:37; Admin Dose 250 MG; Start 09/26/16 at 18:00 Lactobacillus Acidoph/ Bulgaricus 1 tab 1 tab TID PO Last administered on 10:24; Admin Dose 1 TAB; Start 09/26/16 at 21:00 Potassium Chloride/Dextrose 1,000 ml @ 50 mls/hr Q20H IV Last administered on 09/29/16 10:24; Admin Dose 50 MLS/HR; Start 09/27/16 at 10:00 Piperacillin Sod/ Tazobactam Sod (Zosyn 3.375gm/ 100 ml (Pmx)) 100 ml @ 100 mls /hr Q8 IVPB Last administered on 09/29/16 06:14; Admin Dose 100 MLS/HR; Start 09/27/16 at 14:00 Atorvastatin Calcium (Lipitor) 20 mg QHS GTB Last administered on 09/28/16 20: 56; Admin Dose 20 MG; Start 09/28/16 at 21:00 Finasteride (Proscar) 5 mg DAILY GTB Last administered on 09/29/16 09:47; Admin Dose 5 MG; Start 09/29/16 at 09:00 Levothyroxine Sodium (Synthroid) 25 mcg DAILY@06 GTB Last administered on 06:14; Admin Dose 25 MCG; Start 09/29/16 at 06:00 Multivitamins Therapeutic (Theragran) 1 tab DAILY GTB Last administered on 09/29 09:47; Admin Dose 1 TAB; Start 09/29/16 at 09:00 Zinc Sulfate (Zinc Sulfate) 220 mg DAILY NGT Last administered on 09/29/16 09: 47; Admin Dose 220 MG; Start 09/29/16 at 09:00 Insulin Aspart NOVOLOG *MILD* ALGORI... Q6 SC ; Start 09/28/16 at 18:00 Vancomycin HCl (Vancocin) 250 ml @ 125 mls/hr Q24H IVPB ; Start 09/29/16 at 16: 00 Metoclopramide HCl (Reglan) 5 mg Q6 IV Last administered on 09/29/16 12:37; Admin Dose 5 MG; Start 09/29/16 at 12:00; Stop 10/01/16 at 11:59 Ondansetron HCl (Zofran Inj) 4 mg Q6H PRN IV NAUSEA AND/OR VOMITING; Start at 07:30 Heparin Sodium (Porcine) (Heparin (5000 Units/0.5 ml)) 5,000 unit BID SC Last administered on 09/29/16 09:54; Admin Dose 5,000 UNIT; Start 09/29/16 at 09:00 MAGGIE DINERO MD Sep 29, 2016 16:14
--- NOTE | 2016-09-29 16:31 | CONS ---
Date/Time of Note Date/Time of Note DATE: 09/29/16 TIME: 16:27 Assessment/Plan Assessment/Plan Chief Complaint/Hosp Course ID PROGRESS NOTE TOTAL ABX DAY # => Vanco IV, Zosyn, Vanco PO Result Diagram: 09/29/1643409/29/16434 24H INTERVAL SUMMARY * Clinically no changes => Low grade Tmax 99.9, WBC stable from yesterday * Non-communicative on Vent, VSS, NAD * 09/29/16 BUEXT VENOUS DOPPLERIMPRESSION: 1. No evidence of a deep vein thrombosis involving the right upper extremity. 2. Patent left internal jugular vein with incomplete evaluation of the remainder of the left upper extremity veins. * 09/29/16 BLEXT VENOUS DOPPLER IMPRESSION: 1. No evidence of a deep vein thrombosis involving the right common and superficial femoral veins. Incomplete evaluation of the popliteal veins and calf veins. 2. Incomplete evaluation of the left lower extremity veins due to patient's contracture. PHYSICAL EXAMINATION: GENERAL: VSS, NAD HEENT: Unremarkable NECK: Trach -> Secure to Vent CHEST: Equal chest rise bilaterally, without dyspnea on observation HEART: Pulse RRR ABDOMEN: Soft/peg EXTREMITIES: Warm SKIN: See hard chart skin assessment ID ASSESSMENT: 81 yo M w/PMHx CVA w/Dementia, contracted extremities, VDRF, Peg admit with: 1. Admited w/Severe sepsis with shock==> off pressors. 2. Escherichia coli urinary tract infection with bacteremia. 3. Healthcare-associated pneumonia. 4. Anemia w/concern for Probable GI bleed (Coffee ground drainage from G tube) 5. Multiple infected decubitus on admission w/necrosis and deep tissue injury= > Polymicrobial MDRO 6. Persistent diarrhea, stool for Clostridium difficile negative. 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 7. Coronary artery disease and history of non-ST elevation [place] 8. Renal insufficiency -> s/p ANGELICA resolved (+)MRSA Nares =>Bactroban onboard INVASIVES: L-SC TLC, Trach, Peg, Cee, Rectal Tube ABX ALLERGY: KNDA CURRENT ABX: => Vanco IV, Zosyn, Vanco PO ID RECOMMENDATIONS: 1. Continue current ABX => at high risk recurrent C.Diff on Zosyn; hence prophy Vanco GT warranted 2. Wound debridement when stable . . Problems: Consultation Date/Type/Reason Admit Date/Time Sep 24, 2016 at 03:19 Initial Consult Date 09/24/16 Type of Consultation: ID Referring Provider: ROULA DEL TORO Exam/Review of Systems Vital Signs Vitals Vital Signs Date Time Temp Pulse Resp B/P Pulse Ox O2 Delivery O2 Flow Rate FiO2 09/29/16 16:23 99 09/29/16 14:00 21 105/59 100 Mechanical Ventilator 09/29/16 12:00 99.9 09/29/16 08:00 30 Intake and Output 09/28/16 09/28/16 09/29/16 15:00 23:00 07:00 Intake Total 1325 ml 500 ml 1150 ml Output Total 310 ml 245 ml 340 ml Balance 1015 ml 255 ml 810 ml Results Result Diagram: 09/29/16 0435 09/29/16 0435 Results 24 hrs Laboratory Tests Test 09/28/16 17:06 09/29/16 00:09 09/29/16 04:35 09/29/16 06:13 Bedside Glucose 125 109 130 White Blood Count 12.4 H Red Blood Count 3.38 L Hemoglobin 8.0 L Hematocrit 27.7 L Mean Corpuscular Volume 82.0 Mean Corpuscular Hemoglobin 23.7 L Mean Corpuscular Hemoglobin Concent 28.9 L Red Cell Distribution Width 19.3 H Platelet Count 381 Mean Platelet Volume 11.8 H Neutrophils % 82.5 H Lymphocytes % 12.0 L Monocytes % 4.0 Eosinophils % 0.7 Basophils % 0.2 Nucleated Red Blood Cells % 0.0 Neutrophils # 10.2 H Lymphocytes # 1.5 Monocytes # 0.5 Eosinophils # 0.1 Basophils # 0.0 Nucleated Red Blood Cells # 0.0 Sodium Level 144 Potassium Level 4.0 Chloride Level 113 H Carbon Dioxide Level 24 Anion Gap 11 Blood Urea Nitrogen 85 H Creatinine 1.22 Glucose Level 106 Calcium Level 7.3 L Magnesium Level 3.2 H Test 09/29/16 12:38 Bedside Glucose 94 Medications Medications Current Medications Acetaminophen (Tylenol Supp) 650 mg Q4H PRN [place] PAIN LEVEL 1-3 OR FEVER; Start 09/24/16 at 03:00 Eye Lubricant (Artificial Tears Oph) 1 drop TID BOTH EYES Last administered on 09/29/16 09:47; Admin Dose 1 DROP; Start 09/24/16 at 09:00 Sodium Hypochlorite (Dakin'S (1/4 Strength)) 1 applic BID IRR Last administered on 09/29/16 09:48; Admin Dose 1 APPLIC; Start 09/24/16 at 21:00 Pantoprazole (Protonix Iv) 40 mg BID@06,18 IV Last administered on 09/29/16 06 :14; Admin Dose 40 MG; Start 09/24/16 at 18:00 Collagenase (Santyl) 1 applic DAILY TOP Last administered on 09/29/16 09:52; Admin Dose 1 APPLIC; Start 09/24/16 at 20:30 Miscellaneous Information 1 ea NOTE XX ; Start 09/24/16 at 21:00 Glucose (Glutose) 15 gm Q15M PRN PO DECREASED GLUCOSE; Start 09/24/16 at 21:00 Glucose (Glutose) 22.5 gm Q15M PRN PO DECREASED GLUCOSE; Start 09/24/16 at 21: 00 Dextrose (D50w Syringe) 25 ml Q15M PRN IV DECREASED GLUCOSE; Start 09/24/16 at 21:00 Dextrose (D50w Syringe) 50 ml Q15M PRN IV DECREASED GLUCOSE; Start 09/24/16 at 21:00 Glucagon (Glucagen) 1 mg Q15M PRN IM DECREASED GLUCOSE; Start 09/24/16 at 21:00 Glucose 15 gm 15 gm Q15M PRN BUCCAL DECREASED GLUCOSE; Start 09/24/16 at 21:00 Acetaminophen (Ofirmev 1000mg/ 100ml Iv) 100 ml @ 400 mls/hr Q6H PRN IVPB FEVER Last administered on 09/28/16 16:29; Admin Dose 400 MLS/HR; Start at 22:00 Mupirocin (Bactroban) 1 applic BID TOP Last administered on 09/29/16 09:49; Admin Dose 1 APPLIC; Start 09/25/16 at 21:00 Vancomycin HCl (Vancomycin Oral Syringe) 250 mg Q6 PO Last administered on 09/29 12:37; Admin Dose 250 MG; Start 09/26/16 at 18:00 Lactobacillus Acidoph/ Bulgaricus 1 tab 1 tab TID PO Last administered on 10:24; Admin Dose 1 TAB; Start 09/26/16 at 21:00 Potassium Chloride/Dextrose 1,000 ml @ 50 mls/hr Q20H IV Last administered on 09/29/16 10:24; Admin Dose 50 MLS/HR; Start 09/27/16 at 10:00 Piperacillin Sod/ Tazobactam Sod (Zosyn 3.375gm/ 100 ml (Pmx)) 100 ml @ 100 mls /hr Q8 IVPB Last administered on 09/29/16 06:14; Admin Dose 100 MLS/HR; Start 09/27/16 at 14:00 Atorvastatin Calcium (Lipitor) 20 mg QHS GTB Last administered on 09/28/16 20: 56; Admin Dose 20 MG; Start 09/28/16 at 21:00 Finasteride (Proscar) 5 mg DAILY GTB Last administered on 09/29/16 09:47; Admin Dose 5 MG; Start 09/29/16 at 09:00 Levothyroxine Sodium (Synthroid) 25 mcg DAILY@06 GTB Last administered on 06:14; Admin Dose 25 MCG; Start 09/29/16 at 06:00 Multivitamins Therapeutic (Theragran) 1 tab DAILY GTB Last administered on 09/29 09:47; Admin Dose 1 TAB; Start 09/29/16 at 09:00 Zinc Sulfate (Zinc Sulfate) 220 mg DAILY NGT Last administered on 09/29/16 09: 47; Admin Dose 220 MG; Start 09/29/16 at 09:00 Insulin Aspart NOVOLOG *MILD* ALGORI... Q6 SC ; Start 09/28/16 at 18:00 Vancomycin HCl (Vancocin) 250 ml @ 125 mls/hr Q24H IVPB ; Start 09/29/16 at 16: 00 Metoclopramide HCl (Reglan) 5 mg Q6 IV Last administered on 09/29/16 12:37; Admin Dose 5 MG; Start 09/29/16 at 12:00; Stop 10/01/16 at 11:59 Ondansetron HCl (Zofran Inj) 4 mg Q6H PRN IV NAUSEA AND/OR VOMITING; Start at 07:30 Heparin Sodium (Porcine) (Heparin (5000 Units/0.5 ml)) 5,000 unit BID SC Last administered on 09/29/16 09:54; Admin Dose 5,000 UNIT; Start 09/29/16 at 09:00 KUSHAL HOUSE NP Sep 29, 2016 16:31
--- NOTE | 2016-09-29 18:59 | PN ---
Date/Time of Note Date/Time of Note DATE: 09/29/16 TIME: 18:58 Assessment/Plan Lines/Catheters IV Catheter Type (from [facility]): Central Line Cee in Place (from [facility]): Yes Assessment/Plan Chief Complaint/Hosp Course 1. Shock (septic (UTI, pneumonia) plus or minus hypovolemic). Improved -Judicious fluid management -Supportive measures -Antibiotics 2. Multiple decubitus ulcerations with necrotic tissue and deep tissue injury -Offload -Local care -Vitamin C -Eventual nutritional optimization -Debridement when medically cleared 3. Contracted state with functional quadriplegia -Offloading -Nutritional optimization when possible 4. Anemia -Monitor 5. Ventilator dependent respiratory failure -Ventilator management and pulmonary toilet 6. Renal insufficiency -Judicious fluid management -Avoid nephrotoxic agents 7. Coronary artery disease and history of non-ST elevation CT -Cardiac optimization Thank you Problems: Subjective 24 Hr Interval Summary Leukocytosis improving. No fevers or chills. No cough. No seizure. No rash. No vomiting. No blood per mouth or rectum. No bloating. No seizures. Exam/Review of Systems Vital Signs Vitals Vital Signs Date Time Temp Pulse Resp B/P Pulse Ox O2 Delivery O2 Flow Rate FiO2 09/29/16 16:23 99 09/29/16 14:00 21 105/59 100 Mechanical Ventilator 09/29/16 12:00 99.9 09/29/16 08:00 30 Intake and Output 09/28/16 09/28/16 09/29/16 15:00 23:00 07:00 Intake Total 1325 ml 500 ml 1150 ml Output Total 310 ml 245 ml 340 ml Balance 1015 ml 255 ml 810 ml Exam Free Text/Dictation Constitutional: No alert, No oriented Psych: No nl mood/affect Head: atraumatic, normocephalic Eyes: nl conjunctiva, No EOMI, No icteric ENMT: mucosa pink and moist, nl external ears & nose Neck: jvd, other (Trach in place), No non-tender, No supple Respiratory: No congested cough, No labored breathing Cardiovascular: No regular rate and rhythm Gastrointestinal: non-tender, other (PEG in place), soft, No rebound or guarding Musculoskeletal: No joint tenderness, No nl extremities to inspection, No nl gait and stance Extremities: No calf tenderness, No cyanosis Neurological: No nl mental status, No nl speech, No nl strength Skin: rash or lesions (Multiple decubitus ulcerations with debris, necrotic tissue, deep tissue injury), No diaphoresis, No nl turgor Lymph: nontender Results Result Diagram: 09/29/16 0435 09/29/16 0435 EVA GUARDADO MD Sep 29, 2016 18:59
[2016-09-29] MEDS: ATORVASTATIN 20 MG TAB GTB SCH (20:27)
[2016-09-29] MEDS: ACETAMINOPHEN 1000MG/100ML IV 100 ML IVPB PRN (20:27)
--- NOTE | 2016-09-29 22:32 | CONS ---
Date/Time of Note Date/Time of Note DATE: 09/29/16 TIME: 22:31 Assessment/Plan Assessment/Plan Chief Complaint/Hosp Course ANEMIA - NEAR- MICROCYTIC WITH INCREASED RDW DROP H/H DURING HOSPITALIZATION + ACD TRANSFUSE PRBC TO KEEP HB MORE THAN 8 TRANSFUSE NEEDED GI F-UP Stool OB, negative Monitor H&H every 8 hours, transfuse 2 units for hemoglobin less than 8 Continue PPI drips EGD PER Suchov LEUKOCYTOSIS- REACTIVE CONT ATB FOR SEPSIS THROMBOCYTOSIS REACTIVE SHOULD IMPROVE WITH RESOLUTION OF SEPSIS Severe sepsis with septic shock 2/2 #4 and 5 on aggressive pressor support Severe hypernatremic dehydration Acute renal failure 2/2 ATN from dehydration UTI Multifocal pneumonia Encephalopathy ?acute versus acute on chronic (baseline unknown) Hypokalemia Problems: Consultation Date/Type/Reason Admit Date/Time Sep 24, 2016 at 03:19 Initial Consult Date 09/24/16 Type of Consultation: HEMEON Referring Provider: ROULA DEL TORO 24 HR Interval Summary Free Text/Dictation Clinically no changes Low grade Tmax 99.9, WBC stable from yesterday Exam/Review of Systems Vital Signs Vitals Vital Signs Date Time Temp Pulse Resp B/P Pulse Ox O2 Delivery O2 Flow Rate FiO2 09/29/16 19:00 99 21 97/59 100 Mechanical Ventilator 09/29/16 17:15 30 09/29/16 16:00 99.2 Intake and Output 09/28/16 09/28/16 09/29/16 15:00 23:00 07:00 Intake Total 1325 ml 500 ml 1150 ml Output Total 310 ml 245 ml 340 ml Balance 1015 ml 255 ml 810 ml Exam Constitutional: Awake Psych: nl mood/affect Head: normocephalic Eyes: EOMI, nl conjunctiva, nl lids ENMT: nl external ears & nose, nl lips & teeth, nl nasal mucosa & septum Respiratory: Tracheostomy on vent Cardiovascular: regular rate and rhythm Gastrointestinal: soft, non-tender Musculoskeletal: Contractures bilateral and Neurological: WHIZZER II-XII intact Results Result Diagram: 09/29/16 0435 09/29/16 0435 Results 24 hrs Laboratory Tests Test 09/29/16 00:09 09/29/16 04:35 09/29/16 06:13 09/29/16 12:38 Bedside Glucose 109 130 94 White Blood Count 12.4 H Red Blood Count 3.38 L Hemoglobin 8.0 L Hematocrit 27.7 L Mean Corpuscular Volume 82.0 Mean Corpuscular Hemoglobin 23.7 L Mean Corpuscular Hemoglobin Concent 28.9 L Red Cell Distribution Width 19.3 H Platelet Count 381 Mean Platelet Volume 11.8 H Neutrophils % 82.5 H Lymphocytes % 12.0 L Monocytes % 4.0 Eosinophils % 0.7 Basophils % 0.2 Nucleated Red Blood Cells % 0.0 Neutrophils # 10.2 H Lymphocytes # 1.5 Monocytes # 0.5 Eosinophils # 0.1 Basophils # 0.0 Nucleated Red Blood Cells # 0.0 Sodium Level 144 Potassium Level 4.0 Chloride Level 113 H Carbon Dioxide Level 24 Anion Gap 11 Blood Urea Nitrogen 85 H Creatinine 1.22 Glucose Level 106 Calcium Level 7.3 L Magnesium Level 3.2 H Test 09/29/16 17:44 Bedside Glucose 101 Medications Medications Current Medications Acetaminophen (Tylenol Supp) 650 mg Q4H PRN [place] PAIN LEVEL 1-3 OR FEVER; Start 09/24/16 at 03:00 Eye Lubricant (Artificial Tears Oph) 1 drop TID BOTH EYES Last administered on 09/29/16 20:27; Admin Dose 1 DROP; Start 09/24/16 at 09:00 Sodium Hypochlorite (Dakin'S (1/4 Strength)) 1 applic BID IRR Last administered on 09/29/16 09:48; Admin Dose 1 APPLIC; Start 09/24/16 at 21:00 Pantoprazole (Protonix Iv) 40 mg BID@06,18 IV Last administered on 09/29/16 18 :22; Admin Dose 40 MG; Start 09/24/16 at 18:00 Collagenase (Santyl) 1 applic DAILY TOP Last administered on 09/29/16 09:52; Admin Dose 1 APPLIC; Start 09/24/16 at 20:30 Miscellaneous Information 1 ea NOTE XX ; Start 09/24/16 at 21:00 Glucose (Glutose) 15 gm Q15M PRN PO DECREASED GLUCOSE; Start 09/24/16 at 21:00 Glucose (Glutose) 22.5 gm Q15M PRN PO DECREASED GLUCOSE; Start 09/24/16 at 21: 00 Dextrose (D50w Syringe) 25 ml Q15M PRN IV DECREASED GLUCOSE; Start 09/24/16 at 21:00 Dextrose (D50w Syringe) 50 ml Q15M PRN IV DECREASED GLUCOSE; Start 09/24/16 at 21:00 Glucagon (Glucagen) 1 mg Q15M PRN IM DECREASED GLUCOSE; Start 09/24/16 at 21:00 Glucose 15 gm 15 gm Q15M PRN BUCCAL DECREASED GLUCOSE; Start 09/24/16 at 21:00 Acetaminophen (Ofirmev 1000mg/ 100ml Iv) 100 ml @ 400 mls/hr Q6H PRN IVPB FEVER Last administered on 09/29/16 20:27; Admin Dose 400 MLS/HR; Start at 22:00 Mupirocin (Bactroban) 1 applic BID TOP Last administered on 09/29/16 20:27; Admin Dose 1 APPLIC; Start 09/25/16 at 21:00 Vancomycin HCl (Vancomycin Oral Syringe) 250 mg Q6 PO Last administered on 09/29 18:22; Admin Dose 250 MG; Start 09/26/16 at 18:00 Lactobacillus Acidoph/ Bulgaricus 1 tab 1 tab TID PO Last administered on 20:27; Admin Dose 1 TAB; Start 09/26/16 at 21:00 Potassium Chloride/Dextrose 1,000 ml @ 50 mls/hr Q20H IV Last administered on 09/29/16 10:24; Admin Dose 50 MLS/HR; Start 09/27/16 at 10:00 Piperacillin Sod/ Tazobactam Sod (Zosyn 3.375gm/ 100 ml (Pmx)) 100 ml @ 100 mls /hr Q8 IVPB Last administered on 09/29/16 16:46; Admin Dose 100 MLS/HR; Start 09/27/16 at 14:00 Atorvastatin Calcium (Lipitor) 20 mg QHS GTB Last administered on 09/29/16 20: 27; Admin Dose 20 MG; Start 09/28/16 at 21:00 Finasteride (Proscar) 5 mg DAILY GTB Last administered on 09/29/16 09:47; Admin Dose 5 MG; Start 09/29/16 at 09:00 Levothyroxine Sodium (Synthroid) 25 mcg DAILY@06 GTB Last administered on 06:14; Admin Dose 25 MCG; Start 09/29/16 at 06:00 Multivitamins Therapeutic (Theragran) 1 tab DAILY GTB Last administered on 09/29 09:47; Admin Dose 1 TAB; Start 09/29/16 at 09:00 Zinc Sulfate (Zinc Sulfate) 220 mg DAILY NGT Last administered on 09/29/16 09: 47; Admin Dose 220 MG; Start 09/29/16 at 09:00 Insulin Aspart NOVOLOG *MILD* ALGORI... Q6 SC ; Start 09/28/16 at 18:00 Vancomycin HCl (Vancocin) 250 ml @ 125 mls/hr Q24H IVPB Last administered on 16:45; Admin Dose 125 MLS/HR; Start 09/29/16 at 16:00 Metoclopramide HCl (Reglan) 5 mg Q6 IV Last administered on 09/29/16 18:22; Admin Dose 5 MG; Start 09/29/16 at 12:00; Stop 10/01/16 at 11:59 Ondansetron HCl (Zofran Inj) 4 mg Q6H PRN IV NAUSEA AND/OR VOMITING; Start at 07:30 Heparin Sodium (Porcine) (Heparin (5000 Units/0.5 ml)) 5,000 unit BID SC Last administered on 09/29/16 20:37; Admin Dose 5,000 UNIT; Start 09/29/16 at 09:00 SCOTT RODRIGUES MD Sep 29, 2016 22:32
[2016-09-30] VITALS (36 sets, daily range): BP systolic 85–121; BP diastolic 49–79; PULSE 84–107; RESP 13–27
[2016-09-30] MEDS: METOCLOPRAMIDE 10 MG INJ IV SCH ×4 (01:10→18:00)
[2016-09-30] MEDS: VANCOMYCIN HCL 250 MG/5ML POSYG PO SCH ×4 (01:10→18:01)
[2016-09-30] MEDS: INSULIN ASPART [NOVOLOG] 3 ML PEN SC SCH ×4 (01:12→18:00)
[2016-09-30] MEDS: ALBUTEROL HFA 8 GM INHALER INH SCH ×6 (01:26→21:14)
[2016-09-30] MEDS: IPRATROPIUM (HFA) 12.9 GM INHALER INH SCH ×6 (01:26→21:13)
[2016-09-30] MEDS: D5W + KCL 20 MEQ 1,000 ML IV SCH (04:41)
[2016-09-30 05:17] LABS: ADD SCAN DIFF NO
[2016-09-30 05:27] LABS: ABNORMAL IP MESSAGE 1; BASOPHILS % 0.2 % (0.0-2.0); EOSINOPHILS # 0.1 10^3/ul (0.0-0.5); EOSINOPHILS % 1.2 % (0.0-7.0); HEMATOCRIT 27.7 % (42.0-52.0); HEMOGLOBIN 7.8 g/dl (14.0-18.0); LYMPHOCYTES # 1.3 10^3/ul (0.8-2.9); LYMPHOCYTES % 11.1 % (15.0-51.0); MEAN CORPUSCULAR HEMOGLOBIN 23.3 pg (29.0-33.0); MEAN CORPUSCULAR HGB CONC 28.2 g/dl (32.0-37.0); MEAN CORPUSCULAR VOLUME 82.7 fl (82.0-101.0); MEAN PLATELET VOLUME 12.1 fl (7.4-10.4); MONOCYTE # 0.5 10^3/ul (0.3-0.9); MONOCYTES % 4.3 % (0.0-11.0); NEUTROPHIL # 9.3 10^3/ul (1.6-7.5); NEUTROPHILS % 82.5 % (39.0-77.0); PLATELET COUNT 397 10^3/UL (140-415); RED BLOOD COUNT 3.35 10^6/ul (4.70-6.10); WHITE BLOOD COUNT 11.3 10^3/ul (4.8-10.8)
[2016-09-30 05:40] LABS: POTASSIUM 4.2 mmol/L (3.5-5.1)
[2016-09-30 05:42] LABS: CREATININE 1.23 mg/dl (0.61-1.24)
[2016-09-30 05:43] LABS: CALCIUM 7.3 mg/dl (8.4-10.2)
[2016-09-30] MEDS: LEVOTHYROXINE 25 MCG TAB GTB SCH (06:23)
[2016-09-30] MEDS: PANTOPRAZOLE 40 MG INJ IV SCH ×2 (06:23→18:00)
[2016-09-30] MEDS: PIPER-TAZO 3.375 GM IV (PMX) 100 ML IVPB SCH (06:23)
[2016-09-30] MEDS: FINASTERIDE 5 MG TAB GTB SCH (08:48)
[2016-09-30] MEDS: ARTIFICIAL TEARS 15 ML OPH BOTH EYES SCH ×3 (08:48→21:19)
[2016-09-30] MEDS: MUPIROCIN 2% 22 GM OINT TOP SCH ×2 (08:49→21:22)
[2016-09-30] MEDS: MULTIVITAMINS THERAPEUTIC TAB GTB SCH (08:49)
[2016-09-30] MEDS: LACTOBACILLUS CHEW TAB PO SCH ×3 (08:49→21:19)
[2016-09-30] MEDS: COLLAGENASE 30 GM TUBE TOP SCH (08:50)
[2016-09-30] MEDS: SODIUM HYPOCHLORITE 0.125% 473 ML BTL IRR SCH (08:50)
[2016-09-30] MEDS: HEPARIN 5,000 UNIT/0.5 ML VIAL SC SCH ×2 (08:52→21:22)
[2016-09-30] MEDS: ZINC SULFATE 220 MG CAP NGT SCH (08:53)
--- NOTE | 2016-09-30 10:11 | CONS ---
Date/Time of Note Date/Time of Note DATE: 09/30/16 TIME: 10:07 Assessment/Plan Assessment/Plan Additional Assessment/Plan 1. Acute kidney injury versus acute kidney injury on chronic kidney disease. This is likely secondary to severe prerenal azotemia causing ischemic acute tubular necrosis. 2. Severe hyponatremia with a sodium of 165 due to the large volume of free water deficit, likely deficits up to 8-9 liters. 3. Contraction metabolic alkalosis with a bicarbonate of 40.- improved 4. Septic shock with lactic acid of 8.7 secondary to urinary tract infection and pneumonia. on 3 pressors 5. History of chronic respiratory failure, status post tracheostomy, on ventilator. 6. History of G-tube. 7. Poor mental status due to the previous cerebrovascular accident. 8. History of dementia. 9. History of hypertension. PLAN: Na and BUn rising, will increase free water to 200cc Continue D5W U/O 1.1 liter will follow up Total time spent int his patient follow up progress note, Updating Ancillary staff, Talked with SW to locate family member and communicating with Nursing Staff took more than 60 minutes Consultation Date/Type/Reason Admit Date/Time Sep 24, 2016 at 03:19 Initial Consult Date 09/24/16 Type of Consultation: NEPHROLOGY Referring Provider: ROULA DEL TORO 24 HR Interval Summary Free Text/Dictation Na and BUN rising, Cr better, making good urine 1.1 Liter, no fever, BP stable Exam/Review of Systems Vital Signs Vitals Vital Signs Date Time Temp Pulse Resp B/P Pulse Ox O2 Delivery O2 Flow Rate FiO2 09/30/16 09:14 90 16 100 30 09/30/16 07:00 112/65 Mechanical Ventilator 09/30/16 04:00 98.6 Intake and Output 09/29/16 09/29/16 09/30/16 15:00 23:00 07:00 Intake Total 450 ml 1750 ml 945 ml Output Total 1160 ml 265 ml Balance 450 ml 590 ml 680 ml Exam GENERAL: noacute distress HEENT: Unremarkable NECK: Trach -> Secure to Vent CHEST: Equal chest rise bilaterally, without dyspnea on observation HEART: S1 S2 RRR no murmur ABDOMEN: Soft/peg EXTREMITIES: Warm SKIN: See hard chart skin assessment Results Result Diagram: 09/30/16 0430 09/30/16 0430 Results 24 hrs Laboratory Tests Test 09/29/16 12:38 09/29/16 17:44 09/30/16 01:12 09/30/16 04:30 Bedside Glucose 94 101 113 White Blood Count 11.3 H Red Blood Count 3.35 L Hemoglobin 7.8 L Hematocrit 27.7 L Mean Corpuscular Volume 82.7 Mean Corpuscular Hemoglobin 23.3 L Mean Corpuscular Hemoglobin Concent 28.2 L Red Cell Distribution Width 20.0 H Platelet Count 397 Mean Platelet Volume 12.1 H Neutrophils % 82.5 H Lymphocytes % 11.1 L Monocytes % 4.3 Eosinophils % 1.2 Basophils % 0.2 Nucleated Red Blood Cells % 0.0 Neutrophils # 9.3 H Lymphocytes # 1.3 Monocytes # 0.5 Eosinophils # 0.1 Basophils # 0.0 Nucleated Red Blood Cells # 0.0 Sodium Level 145 H Potassium Level 4.2 Chloride Level 113 H Carbon Dioxide Level 23 Anion Gap 13 Blood Urea Nitrogen 89 H Creatinine 1.23 Glucose Level 87 Calcium Level 7.3 L Test 09/30/16 06:22 Bedside Glucose 103 Medications Medications Current Medications Acetaminophen (Tylenol Supp) 650 mg Q4H PRN [place] PAIN LEVEL 1-3 OR FEVER; Start 09/24/16 at 03:00 Eye Lubricant (Artificial Tears Oph) 1 drop TID BOTH EYES Last administered on 09/30/16 08:48; Admin Dose 1 DROP; Start 09/24/16 at 09:00 Sodium Hypochlorite (Dakin'S (1/4 Strength)) 1 applic BID IRR Last administered on 09/30/16 08:50; Admin Dose 1 APPLIC; Start 09/24/16 at 21:00 Pantoprazole (Protonix Iv) 40 mg BID@06,18 IV Last administered on 09/30/16 06 :23; Admin Dose 40 MG; Start 09/24/16 at 18:00 Collagenase (Santyl) 1 applic DAILY TOP Last administered on 09/30/16 08:50; Admin Dose 1 APPLIC; Start 09/24/16 at 20:30 Miscellaneous Information 1 ea NOTE XX ; Start 09/24/16 at 21:00 Glucose (Glutose) 15 gm Q15M PRN PO DECREASED GLUCOSE; Start 09/24/16 at 21:00 Glucose (Glutose) 22.5 gm Q15M PRN PO DECREASED GLUCOSE; Start 09/24/16 at 21: 00 Dextrose (D50w Syringe) 25 ml Q15M PRN IV DECREASED GLUCOSE; Start 09/24/16 at 21:00 Dextrose (D50w Syringe) 50 ml Q15M PRN IV DECREASED GLUCOSE; Start 09/24/16 at 21:00 Glucagon (Glucagen) 1 mg Q15M PRN IM DECREASED GLUCOSE; Start 09/24/16 at 21:00 Glucose 15 gm 15 gm Q15M PRN BUCCAL DECREASED GLUCOSE; Start 09/24/16 at 21:00 Acetaminophen (Ofirmev 1000mg/ 100ml Iv) 100 ml @ 400 mls/hr Q6H PRN IVPB FEVER Last administered on 09/29/16 20:27; Admin Dose 400 MLS/HR; Start at 22:00 Mupirocin (Bactroban) 1 applic BID TOP Last administered on 09/30/16 08:49; Admin Dose 1 APPLIC; Start 09/25/16 at 21:00 Vancomycin HCl (Vancomycin Oral Syringe) 250 mg Q6 PO Last administered on 09/30 06:23; Admin Dose 250 MG; Start 09/26/16 at 18:00 Lactobacillus Acidoph/ Bulgaricus 1 tab 1 tab TID PO Last administered on 08:49; Admin Dose 1 TAB; Start 09/26/16 at 21:00 Potassium Chloride/Dextrose 1,000 ml @ 50 mls/hr Q20H IV Last administered on 09/30/16 04:41; Admin Dose 50 MLS/HR; Start 09/27/16 at 10:00 Piperacillin Sod/ Tazobactam Sod (Zosyn 3.375gm/ 100 ml (Pmx)) 100 ml @ 100 mls /hr Q8 IVPB Last administered on 09/30/16 06:23; Admin Dose 100 MLS/HR; Start 09/27/16 at 14:00 Atorvastatin Calcium (Lipitor) 20 mg QHS GTB Last administered on 09/29/16 20: 27; Admin Dose 20 MG; Start 09/28/16 at 21:00 Finasteride (Proscar) 5 mg DAILY GTB Last administered on 09/30/16 08:48; Admin Dose 5 MG; Start 09/29/16 at 09:00 Levothyroxine Sodium (Synthroid) 25 mcg DAILY@06 GTB Last administered on 06:23; Admin Dose 25 MCG; Start 09/29/16 at 06:00 Multivitamins Therapeutic (Theragran) 1 tab DAILY GTB Last administered on 09/30 08:49; Admin Dose 1 TAB; Start 09/29/16 at 09:00 Zinc Sulfate (Zinc Sulfate) 220 mg DAILY NGT Last administered on 09/30/16 08: 53; Admin Dose 220 MG; Start 09/29/16 at 09:00 Insulin Aspart NOVOLOG *MILD* ALGORI... Q6 SC ; Start 09/28/16 at 18:00 Vancomycin HCl (Vancocin) 250 ml @ 125 mls/hr Q24H IVPB Last administered on 16:45; Admin Dose 125 MLS/HR; Start 09/29/16 at 16:00 Metoclopramide HCl (Reglan) 5 mg Q6 IV Last administered on 09/30/16 06:23; Admin Dose 5 MG; Start 09/29/16 at 12:00; Stop 10/01/16 at 11:59 Ondansetron HCl (Zofran Inj) 4 mg Q6H PRN IV NAUSEA AND/OR VOMITING; Start at 07:30 Heparin Sodium (Porcine) (Heparin (5000 Units/0.5 ml)) 5,000 unit BID SC Last administered on 09/30/16 08:52; Admin Dose 5,000 UNIT; Start 09/29/16 at 09:00 MAGGIE DINERO MD Sep 30, 2016 10:10
[2016-09-30] MEDS ORDERED: ZYVOX 600 MG TAB PO SCH (11:00)
--- NOTE | 2016-09-30 11:00 | PN ---
Date/Time of Note Date/Time of Note DATE: 09/30/16 TIME: 11:00 Assessment/Plan Lines/Catheters IV Catheter Type (from [facility]): Central Line Cee in Place (from [facility]): Yes Assessment/Plan Chief Complaint/Hosp Course 1. Shock (septic (UTI, pneumonia) plus or minus hypovolemic). Improved -Judicious fluid management -Supportive measures -Antibiotics 2. Multiple decubitus ulcerations with necrotic tissue and deep tissue injury -Offload -Local care -Vitamin C -Eventual nutritional optimization -Debridement when medically cleared 3. Contracted state with functional quadriplegia -Offloading -Nutritional optimization when possible 4. Anemia -Monitor 5. Ventilator dependent respiratory failure -Ventilator management and pulmonary toilet 6. Renal insufficiency -Judicious fluid management -Avoid nephrotoxic agents 7. Coronary artery disease and history of non-ST elevation [place] -Cardiac optimization Thank you Problems: Subjective 24 Hr Interval Summary Leukocytosis slowly improving. No fevers or chills. No cough. No seizure. No rash. No vomiting. No blood per mouth or rectum. No bloating. No seizures. Exam/Review of Systems Vital Signs Vitals Vital Signs Date Time Temp Pulse Resp B/P Pulse Ox O2 Delivery O2 Flow Rate FiO2 09/30/16 10:00 94 19 118/56 100 Mechanical Ventilator 09/30/16 09:14 30 09/30/16 08:00 98.8 Intake and Output 09/29/16 09/29/16 09/30/16 15:00 23:00 07:00 Intake Total 450 ml 1750 ml 945 ml Output Total 1160 ml 265 ml Balance 450 ml 590 ml 680 ml Exam Free Text/Dictation Constitutional: No alert, No oriented Psych: No nl mood/affect Head: atraumatic, normocephalic Eyes: nl conjunctiva, No EOMI, No icteric ENMT: mucosa pink and moist, nl external ears & nose Neck: jvd, other (Trach in place), No non-tender, No supple Respiratory: No congested cough, No labored breathing Cardiovascular: No regular rate and rhythm Gastrointestinal: non-tender, other (PEG in place), soft, No rebound or guarding Musculoskeletal: No joint tenderness, No nl extremities to inspection, No nl gait and stance Extremities: No calf tenderness, No cyanosis Neurological: No nl mental status, No nl speech, No nl strength Skin: rash or lesions (Multiple decubitus ulcerations with debris, necrotic tissue, deep tissue injury), No diaphoresis, No nl turgor Lymph: nontender Results Result Diagram: 09/30/160 09/30/16 0430 EVA GUARDADO MD Sep 30, 2016 11:00
--- NOTE | 2016-09-30 11:12 | CONS ---
Date/Time of Note Date/Time of Note DATE: 09/30/16 TIME: 11:10 Consult Date/Type/Reason Admit Date/Time Sep 24, 2016 at 03:19 Initial Consult Date 09/24/16 Type of Consultation: pulmonary/intensive care Ordering Provider: ROULA DEL TORO Subjective Patient remains awake alert this morning comfortable no acute distress Currently not requiring vasopressor support Objective Vital Signs Date Time Temp Pulse Resp B/P Pulse Ox O2 Delivery O2 Flow Rate FiO2 09/30/16 10:00 94 19 118/56 100 Mechanical Ventilator 09/30/16 09:14 30 09/30/16 08:00 98.8 Intake and Output 09/29/16 09/29/16 09/30/16 15:00 23:00 07:00 Intake Total 450 ml 1750 ml 980 ml Output Total 1160 ml 345 ml Balance 450 ml 590 ml 635 ml Exam PHYSICAL EXAMINATION GENERAL: Elderly gentleman, continues mechanical ventilation via tracheostomy VITAL SIGNS: see below. HEENT: Pupils equal, round, and reactive to light. Tracheostomy site clean and intact. CARDIAC: S1, S2, 2 systolic ejection murmur CHEST: Diminished air entry bilaterally. ABDOMEN: Mildly distended. Bowel sounds present EXTREMITIES: No cyanosis, clubbing edema +2 NEUROLOGIC: Unable to assess Results/Medications Result Diagram: 09/30/16 0430 09/30/16 0430 Results 24 hrs Laboratory Tests Test 09/29/16 12:38 09/29/16 17:44 09/30/16 01:12 09/30/16 04:30 Bedside Glucose 94 101 113 White Blood Count 11.3 H Red Blood Count 3.35 L Hemoglobin 7.8 L Hematocrit 27.7 L Mean Corpuscular Volume 82.7 Mean Corpuscular Hemoglobin 23.3 L Mean Corpuscular Hemoglobin Concent 28.2 L Red Cell Distribution Width 20.0 H Platelet Count 397 Mean Platelet Volume 12.1 H Neutrophils % 82.5 H Lymphocytes % 11.1 L Monocytes % 4.3 Eosinophils % 1.2 Basophils % 0.2 Nucleated Red Blood Cells % 0.0 Neutrophils # 9.3 H Lymphocytes # 1.3 Monocytes # 0.5 Eosinophils # 0.1 Basophils # 0.0 Nucleated Red Blood Cells # 0.0 Sodium Level 145 H Potassium Level 4.2 Chloride Level 113 H Carbon Dioxide Level 23 Anion Gap 13 Blood Urea Nitrogen 89 H Creatinine 1.23 Glucose Level 87 Calcium Level 7.3 L Test 09/30/16 06:22 Bedside Glucose 103 Medications Current Medications Acetaminophen (Tylenol Supp) 650 mg Q4H PRN [place] PAIN LEVEL 1-3 OR FEVER; Start 09/24/16 at 03:00 Eye Lubricant (Artificial Tears Oph) 1 drop TID BOTH EYES Last administered on 09/30/16 08:48; Admin Dose 1 DROP; Start 09/24/16 at 09:00 Sodium Hypochlorite (Dakin'S (1/4 Strength)) 1 applic BID IRR Last administered on 09/30/16 08:50; Admin Dose 1 APPLIC; Start 09/24/16 at 21:00 Pantoprazole (Protonix Iv) 40 mg BID@06,18 IV Last administered on 09/30/16 06 :23; Admin Dose 40 MG; Start 09/24/16 at 18:00 Collagenase (Santyl) 1 applic DAILY TOP Last administered on 09/30/16 08:50; Admin Dose 1 APPLIC; Start 09/24/16 at 20:30 Miscellaneous Information 1 ea NOTE XX ; Start 09/24/16 at 21:00 Glucose (Glutose) 15 gm Q15M PRN PO DECREASED GLUCOSE; Start 09/24/16 at 21:00 Glucose (Glutose) 22.5 gm Q15M PRN PO DECREASED GLUCOSE; Start 09/24/16 at 21: 00 Dextrose (D50w Syringe) 25 ml Q15M PRN IV DECREASED GLUCOSE; Start 09/24/16 at 21:00 Dextrose (D50w Syringe) 50 ml Q15M PRN IV DECREASED GLUCOSE; Start 09/24/16 at 21:00 Glucagon (Glucagen) 1 mg Q15M PRN IM DECREASED GLUCOSE; Start 09/24/16 at 21:00 Glucose 15 gm 15 gm Q15M PRN BUCCAL DECREASED GLUCOSE; Start 09/24/16 at 21:00 Acetaminophen (Ofirmev 1000mg/ 100ml Iv) 100 ml @ 400 mls/hr Q6H PRN IVPB FEVER Last administered on 09/29/16 20:27; Admin Dose 400 MLS/HR; Start at 22:00 Mupirocin (Bactroban) 1 applic BID TOP Last administered on 09/30/16 08:49; Admin Dose 1 APPLIC; Start 09/25/16 at 21:00 Vancomycin HCl (Vancomycin Oral Syringe) 250 mg Q6 PO Last administered on 09/30 06:23; Admin Dose 250 MG; Start 09/26/16 at 18:00 Lactobacillus Acidoph/ Bulgaricus 1 tab 1 tab TID PO Last administered on 08:49; Admin Dose 1 TAB; Start 09/26/16 at 21:00 Potassium Chloride/Dextrose (D5W + KCl 20 Meq) 1,000 ml @ 50 mls/hr Q20H IV Last administered on 09/30/16 04:41; Admin Dose 50 MLS/HR; Start 09/27/16 at 10 :00 Atorvastatin Calcium (Lipitor) 20 mg QHS GTB Last administered on 09/29/16 20: 27; Admin Dose 20 MG; Start 09/28/16 at 21:00 Finasteride (Proscar) 5 mg DAILY GTB Last administered on 09/30/16 08:48; Admin Dose 5 MG; Start 09/29/16 at 09:00 Levothyroxine Sodium (Synthroid) 25 mcg DAILY@06 GTB Last administered on 06:23; Admin Dose 25 MCG; Start 09/29/16 at 06:00 Multivitamins Therapeutic (Theragran) 1 tab DAILY GTB Last administered on 09/30 08:49; Admin Dose 1 TAB; Start 09/29/16 at 09:00 Zinc Sulfate (Zinc Sulfate) 220 mg DAILY NGT Last administered on 09/30/16 08: 53; Admin Dose 220 MG; Start 09/29/16 at 09:00 Insulin Aspart (Novolog Insulin Pen) NOVOLOG *MILD* ALGORI... Q6 SC ; Start at 18:00 Metoclopramide HCl (Reglan) 5 mg Q6 IV Last administered on 09/30/16 06:23; Admin Dose 5 MG; Start 09/29/16 at 12:00; Stop 10/01/16 at 11:59 Ondansetron HCl (Zofran Inj) 4 mg Q6H PRN IV NAUSEA AND/OR VOMITING; Start at 07:30 Heparin Sodium (Porcine) 5000 unit 5,000 unit BID SC Last administered on 08:52; Admin Dose 5,000 UNIT; Start 09/29/16 at 09:00 Colistimethate Sodium/Sodium Chloride (Coly-Mycin/NS) 100 ml @ 200 mls/hr DAILY IVPB ; Start 09/30/16 at 11:00 Linezolid (Zyvox) 600 mg BID PO ; Start 09/30/16 at 11:00 Assessment/Plan Chief Complaint/Hosp Course Assessment 1. Status post Septic shock likely secondary to pneumonia 2. Significant anemia requiring blood transfusions 3. Vent dependent respiratory failure 4. Dysphagia with G-tube 5. Hypernatremia 6. History of renal insufficiency Plan 1. Continue mechanical ventilation 2. Continue antibiotics per infectious diseases 3. Consider transfusion of another unit of packed red blood cells 4. Continue renal recommendations Disposition Transfer to telemetry Palliative care consult [place] evaluation Problems: ABBI DELCID MD, [facility] Sep 30, 2016 11:12
--- NOTE | 2016-09-30 11:17 | PN ---
DATE: 09/30/2016 INFECTIOUS DISEASE PROGRESS NOTE SUBJECTIVE: No events overnight. No fevers. The patient lying comfortably in bed. VITAL SIGNS: Temperature 98.6, pulse 90, respirations 16, blood pressure 112/65, saturation 100 on 30 FIO2. WBC 11.3, H and H 7.8 and 27.7, platelets 397, neutrophils 82.5. BUN 89, creatinine 1.23. MICROBIOLOGY: Blood cultures repeated on September 28 remain negative. Initial culture grew E coli. Urine culture grew E coli. Nares swab was positive for MRSA. Wound culture grew [id number] ant organisms, possibly colonized. INDWELLINGS: Trach, PEG, Cee, left subclavian triple lumen catheter, rectal tube. ANTIMICROBIALS: 1. Vancomycin IV. 2. Zosyn. 3. Oral vancomycin. 4. Topical Bactroban to nares. PHYSICAL EXAMINATION: GENERAL: This is a chronically ill-appearing, well-developed elderly man who is in no distress. HEENT: Head atraumatic, normocephalic. Sclerae anicteric. Buccal mucosa dry. NECK: Supple. Tracheostomy present. CHEST: Rise symmetrical. Breath sounds diminished to bases. HEART: S1, S2. ABDOMEN: Soft, bowel sounds present. EXTREMITIES: With trace edema. SKIN: With multiple chronic wounds. ASSESSMENT: 1. Sepsis status post shock. 2. Status post Escherichia coli urinary tract infection with bacteremia. 3. Methicillin-resistant Staphylococcus aureus nares colonization. 4. Healthcare-associated pneumonia. 5. Multiple decubitus with wound cultures growing [id number] organisms including vancomyc in-resistant Enterococci, methicillin-resistant Staphylococcus aureus, Acinetobacter baumannii, Esch erichia coli, Proteus mirabilis, and Klebsiella pneumoniae. 6. 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 7. History of cerebrovascular accident. PLAN: We are going to start the patient on IV colistin. Change vancomycin to Zyvox. Continue oral vancomycin. Monitor renal function closely. Continue wound care after surgical recommendations. Dictated By: CHRISTOPHER MCDONOUGH GAS SUBSTATION OPERATOR for YAQUELIN ESTRELLA MD NI/NTS Conf#: [id number] DID#: [id number]
[2016-09-30] MEDS: ZYVOX 600 MG TAB PO SCH ×2 (11:23→21:18)
[2016-09-30] MEDS: COLISTIMETHATE 75 MG in SOD CHLORIDE 0.9% 100 ML IVPB SCH (12:56)
--- NOTE | 2016-09-30 13:07 | CONS ---
Date/Time of Note Date/Time of Note DATE: 09/30/16 TIME: 13:07 Assessment/Plan Assessment/Plan Chief Complaint/Hosp Course ANEMIA - NEAR- MICROCYTIC WITH INCREASED RDW DROP H/H DURING HOSPITALIZATION + ACD TRANSFUSE PRBC TO KEEP HB MORE THAN 8 TRANSFUSE NEEDED GI F-UP Stool OB, negative Monitor H&H every 8 hours, transfuse 2 units for hemoglobin less than 8 Continue PPI drips EGD PER Suchov LEUKOCYTOSIS- REACTIVE CONT ATB FOR SEPSIS THROMBOCYTOSIS REACTIVE SHOULD IMPROVE WITH RESOLUTION OF SEPSIS Severe sepsis with septic shock 2/2 #4 and 5 on aggressive pressor support Severe hypernatremic dehydration Acute renal failure 2/2 ATN from dehydration UTI Multifocal pneumonia Encephalopathy ?acute versus acute on chronic (baseline unknown) Hypokalemia Problems: Consultation Date/Type/Reason Admit Date/Time Sep 24, 2016 at 03:19 Initial Consult Date 09/24/16 Type of Consultation: HEMEON Referring Provider: ROULA DEL TORO 24 HR Interval Summary Free Text/Dictation * course reviewed with nursing staff * patien seen and examined * no active bleeding,no melena nor hematemesis * tolerating tube feeding * latest hemoglobin 7.8 * still awaiting anesthesia consent Exam/Review of Systems Vital Signs Vitals Vital Signs Date Time Temp Pulse Resp B/P Pulse Ox O2 Delivery O2 Flow Rate FiO2 09/30/16 12:00 92 09/30/16 11:10 16 100 30 09/30/16 10:00 118/56 Mechanical Ventilator 09/30/16 08:00 98.8 Intake and Output 09/29/16 09/29/16 09/30/16 15:00 23:00 07:00 Intake Total 450 ml 1750 ml 980 ml Output Total 1160 ml 345 ml Balance 450 ml 590 ml 635 ml Exam GENERAL: noacute distress HEENT: Unremarkable NECK: Trach -> Secure to Vent CHEST: Equal chest rise bilaterally, without dyspnea on observation HEART: S1 S2 RRR no murmur ABDOMEN: Soft/peg EXTREMITIES: Warm SKIN: See hard chart skin assessment Results Result Diagram: 09/30/16 0430 09/30/16 0430 Results 24 hrs Laboratory Tests Test 09/29/16 17:44 09/30/16 01:12 09/30/16 04:30 09/30/16 06:22 Bedside Glucose 101 113 103 White Blood Count 11.3 H Red Blood Count 3.35 L Hemoglobin 7.8 L Hematocrit 27.7 L Mean Corpuscular Volume 82.7 Mean Corpuscular Hemoglobin 23.3 L Mean Corpuscular Hemoglobin Concent 28.2 L Red Cell Distribution Width 20.0 H Platelet Count 397 Mean Platelet Volume 12.1 H Neutrophils % 82.5 H Lymphocytes % 11.1 L Monocytes % 4.3 Eosinophils % 1.2 Basophils % 0.2 Nucleated Red Blood Cells % 0.0 Neutrophils # 9.3 H Lymphocytes # 1.3 Monocytes # 0.5 Eosinophils # 0.1 Basophils # 0.0 Nucleated Red Blood Cells # 0.0 Sodium Level 145 H Potassium Level 4.2 Chloride Level 113 H Carbon Dioxide Level 23 Anion Gap 13 Blood Urea Nitrogen 89 H Creatinine 1.23 Glucose Level 87 Calcium Level 7.3 L Test 09/30/16 11:27 Bedside Glucose 103 Medications Medications Current Medications Acetaminophen (Tylenol Supp) 650 mg Q4H PRN [place] PAIN LEVEL 1-3 OR FEVER; Start 09/24/16 at 03:00 Eye Lubricant (Artificial Tears Oph) 1 drop TID BOTH EYES Last administered on 09/30/16 12:56; Admin Dose 1 DROP; Start 09/24/16 at 09:00 Sodium Hypochlorite (Dakin'S (1/4 Strength)) 1 applic BID IRR Last administered on 09/30/16 08:50; Admin Dose 1 APPLIC; Start 09/24/16 at 21:00 Pantoprazole (Protonix Iv) 40 mg BID@06,18 IV Last administered on 09/30/16 06 :23; Admin Dose 40 MG; Start 09/24/16 at 18:00 Collagenase (Santyl) 1 applic DAILY TOP Last administered on 09/30/16 08:50; Admin Dose 1 APPLIC; Start 09/24/16 at 20:30 Miscellaneous Information 1 ea NOTE XX ; Start 09/24/16 at 21:00 Glucose (Glutose) 15 gm Q15M PRN PO DECREASED GLUCOSE; Start 09/24/16 at 21:00 Glucose (Glutose) 22.5 gm Q15M PRN PO DECREASED GLUCOSE; Start 09/24/16 at 21: 00 Dextrose (D50w Syringe) 25 ml Q15M PRN IV DECREASED GLUCOSE; Start 09/24/16 at 21:00 Dextrose (D50w Syringe) 50 ml Q15M PRN IV DECREASED GLUCOSE; Start 09/24/16 at 21:00 Glucagon (Glucagen) 1 mg Q15M PRN IM DECREASED GLUCOSE; Start 09/24/16 at 21:00 Glucose 15 gm 15 gm Q15M PRN BUCCAL DECREASED GLUCOSE; Start 09/24/16 at 21:00 Acetaminophen (Ofirmev 1000mg/ 100ml Iv) 100 ml @ 400 mls/hr Q6H PRN IVPB FEVER Last administered on 09/29/16 20:27; Admin Dose 400 MLS/HR; Start at 22:00 Mupirocin (Bactroban) 1 applic BID TOP Last administered on 09/30/16 08:49; Admin Dose 1 APPLIC; Start 09/25/16 at 21:00 Vancomycin HCl (Vancomycin Oral Syringe) 250 mg Q6 PO Last administered on 09/30 11:22; Admin Dose 250 MG; Start 09/26/16 at 18:00 Lactobacillus Acidoph/ Bulgaricus 1 tab 1 tab TID PO Last administered on 12:56; Admin Dose 1 TAB; Start 09/26/16 at 21:00 Potassium Chloride/Dextrose (D5W + KCl 20 Meq) 1,000 ml @ 50 mls/hr Q20H IV Last administered on 09/30/16 04:41; Admin Dose 50 MLS/HR; Start 09/27/16 at 10 :00 Atorvastatin Calcium (Lipitor) 20 mg QHS GTB Last administered on 09/29/16 20: 27; Admin Dose 20 MG; Start 09/28/16 at 21:00 Finasteride (Proscar) 5 mg DAILY GTB Last administered on 09/30/16 08:48; Admin Dose 5 MG; Start 09/29/16 at 09:00 Levothyroxine Sodium (Synthroid) 25 mcg DAILY@06 GTB Last administered on 06:23; Admin Dose 25 MCG; Start 09/29/16 at 06:00 Multivitamins Therapeutic (Theragran) 1 tab DAILY GTB Last administered on 09/30 08:49; Admin Dose 1 TAB; Start 09/29/16 at 09:00 Zinc Sulfate (Zinc Sulfate) 220 mg DAILY NGT Last administered on 09/30/16 08: 53; Admin Dose 220 MG; Start 09/29/16 at 09:00 Insulin Aspart (Novolog Insulin Pen) NOVOLOG *MILD* ALGORI... Q6 SC ; Start at 18:00 Metoclopramide HCl (Reglan) 5 mg Q6 IV Last administered on 09/30/16 11:22; Admin Dose 5 MG; Start 09/29/16 at 12:00; Stop 10/01/16 at 11:59 Ondansetron HCl (Zofran Inj) 4 mg Q6H PRN IV NAUSEA AND/OR VOMITING; Start at 07:30 Heparin Sodium (Porcine) 5000 unit 5,000 unit BID SC Last administered on 08:52; Admin Dose 5,000 UNIT; Start 09/29/16 at 09:00 Colistimethate Sodium/Sodium Chloride (Coly-Mycin/NS) 100 ml @ 200 mls/hr DAILY IVPB Last administered on 09/30/16 12:56; Admin Dose 200 MLS/HR; Start 09/30/16 at 11:00 Linezolid (Zyvox) 600 mg BID PO Last administered on 09/30/16 11:23; Admin Dose 600 MG; Start 09/30/16 at 11:30 SCOTT RODRIGUES MD Sep 30, 2016 13:07
--- NOTE | 2016-09-30 14:26 | PN ---
Date/Time of Note Date/Time of Note DATE: 09/30/16 TIME: 14:22 Assessment/Plan VTE Prophylaxis VTE Prophylaxis Intervention: heparin Assessment/Plan Chief Complaint/Hosp Course 1. Severe sepsis with septic shock 2/2 #4 and 5 : improved and off pressor support 2. Severe hypernatremia 2/2 dehydration: improving 3. Acute renal failure 2/2 ATN from dehydration: improving 4. Ecoli bacteremia and UTI : 5. Multifocal pneumonia (E coli / A baumanii) 6. 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 Hypochromic microcytic Iron deficiency anemia likely 2/2 chronic Bleed 8. Hypokalemia: resolved 9. Probable GI bleed (Coffee ground drainage from G tube) 10. Severe multiple pressure ulcers infected with multiple organisms including MRSA 11. Hx of severe C-diff/ pseudomembranous colitis 12. Hypothyroidism with good control: Levothyroxine 13. Chronic Dysphagia 2/2 encephalopathy 14. Chronic resp failure ventilator dependent Via tracheostomy PLAN: * DG to Tele * Monitor fever curve/ f/u repeat blood cultures / Change snider / if fever persists, d/w surgery re: possible debridement * Complete 5 days of Iv iron supplementation and the switch to oral * Continue current abx per ID / recommended wound care and supportive care * IVF managed per Nephro and patient has been restarted on tube feeds till family gives consent for EGD * Reduced tube feeds rate 2/2 residuals, add reglan * With degree of sores, Patient may require more aggressive intervention (? diverting colostomy) however will defer to surgery. Patient however is an extremely poor candidate and with comorbidities and baseline encephalopathy is more appropriate for hospice care instead / Palliative care consulted. PROPHYLAXIS: Start low dose heparin and monitor for bleeding / SCDS / Protonix Problems: Subjective 24 Hr Interval Summary Subjective hx not possible: pt non-verbal Exam/Review of Systems Vital Signs Vitals Vital Signs Date Time Temp Pulse Resp B/P Pulse Ox O2 Delivery O2 Flow Rate FiO2 09/30/16 13:15 100 22 100 30 09/30/16 10:00 118/56 Mechanical Ventilator 09/30/16 08:00 98.8 Intake and Output 09/29/16 09/29/16 09/30/16 15:00 23:00 07:00 Intake Total 450 ml 1750 ml 980 ml Output Total 1160 ml 345 ml Balance 450 ml 590 ml 635 ml Exam Constitutional: non-verbal Respiratory: clear to auscultation Cardiovascular: regular rate and rhythm Gastrointestinal: soft, No distended Musculoskeletal: nl extremities to inspection Results Result Diagram: 09/30/16 0430 09/30/16 0430 Results 24 hrs Laboratory Tests Test 09/29/16 17:44 09/30/16 01:12 09/30/16 04:30 09/30/16 06:22 Bedside Glucose 101 113 103 White Blood Count 11.3 H Red Blood Count 3.35 L Hemoglobin 7.8 L Hematocrit 27.7 L Mean Corpuscular Volume 82.7 Mean Corpuscular Hemoglobin 23.3 L Mean Corpuscular Hemoglobin Concent 28.2 L Red Cell Distribution Width 20.0 H Platelet Count 397 Mean Platelet Volume 12.1 H Neutrophils % 82.5 H Lymphocytes % 11.1 L Monocytes % 4.3 Eosinophils % 1.2 Basophils % 0.2 Nucleated Red Blood Cells % 0.0 Neutrophils # 9.3 H Lymphocytes # 1.3 Monocytes # 0.5 Eosinophils # 0.1 Basophils # 0.0 Nucleated Red Blood Cells # 0.0 Sodium Level 145 H Potassium Level 4.2 Chloride Level 113 H Carbon Dioxide Level 23 Anion Gap 13 Blood Urea Nitrogen 89 H Creatinine 1.23 Glucose Level 87 Calcium Level 7.3 L Test 09/30/16 11:27 Bedside Glucose 103 Medications Medications Current Medications Acetaminophen (Tylenol Supp) 650 mg Q4H PRN [place] PAIN LEVEL 1-3 OR FEVER; Start 09/24/16 at 03:00 Eye Lubricant (Artificial Tears Oph) 1 drop TID BOTH EYES Last administered on 09/30/16 12:56; Admin Dose 1 DROP; Start 09/24/16 at 09:00 Sodium Hypochlorite (Dakin'S (1/4 Strength)) 1 applic BID IRR Last administered on 09/30/16 08:50; Admin Dose 1 APPLIC; Start 09/24/16 at 21:00 Pantoprazole (Protonix Iv) 40 mg BID@,18 IV Last administered on 09/30/16 06 :23; Admin Dose 40 MG; Start 09/24/16 at 18:00 Collagenase (Santyl) 1 applic DAILY TOP Last administered on 09/30/16 08:50; Admin Dose 1 APPLIC; Start 09/24/16 at 20:30 Miscellaneous Information 1 ea NOTE XX ; Start 09/24/16 at 21:00 Glucose (Glutose) 15 gm Q15M PRN PO DECREASED GLUCOSE; Start 09/24/16 at 21:00 Glucose (Glutose) 22.5 gm Q15M PRN PO DECREASED GLUCOSE; Start 09/24/16 at 21: 00 Dextrose (D50w Syringe) 25 ml Q15M PRN IV DECREASED GLUCOSE; Start 09/24/16 at 21:00 Dextrose (D50w Syringe) 50 ml Q15M PRN IV DECREASED GLUCOSE; Start 09/24/16 at 21:00 Glucagon (Glucagen) 1 mg Q15M PRN IM DECREASED GLUCOSE; Start 09/24/16 at 21:00 Glucose 15 gm 15 gm Q15M PRN BUCCAL DECREASED GLUCOSE; Start 09/24/16 at 21:00 Acetaminophen (Ofirmev 1000mg/ 100ml Iv) 100 ml @ 400 mls/hr Q6H PRN IVPB FEVER Last administered on 09/29/16 20:27; Admin Dose 400 MLS/HR; Start at 22:00 Mupirocin (Bactroban) 1 applic BID TOP Last administered on 09/30/16 08:49; Admin Dose 1 APPLIC; Start 09/25/16 at 21:00 Vancomycin HCl (Vancomycin Oral Syringe) 250 mg Q6 PO Last administered on 09/30 11:22; Admin Dose 250 MG; Start 09/26/16 at 18:00 Lactobacillus Acidoph/ Bulgaricus 1 tab 1 tab TID PO Last administered on 12:56; Admin Dose 1 TAB; Start 09/26/16 at 21:00 Potassium Chloride/Dextrose (D5W + KCl 20 Meq) 1,000 ml @ 50 mls/hr Q20H IV Last administered on 09/30/16 04:41; Admin Dose 50 MLS/HR; Start 09/27/16 at 10 :00 Atorvastatin Calcium (Lipitor) 20 mg QHS GTB Last administered on 09/29/16 20: 27; Admin Dose 20 MG; Start 09/28/16 at 21:00 Finasteride (Proscar) 5 mg DAILY GTB Last administered on 09/30/16 08:48; Admin Dose 5 MG; Start 09/29/16 at 09:00 Levothyroxine Sodium (Synthroid) 25 mcg DAILY@06 GTB Last administered on 06:23; Admin Dose 25 MCG; Start 09/29/16 at 06:00 Multivitamins Therapeutic (Theragran) 1 tab DAILY GTB Last administered on 09/30 08:49; Admin Dose 1 TAB; Start 09/29/16 at 09:00 Zinc Sulfate (Zinc Sulfate) 220 mg DAILY NGT Last administered on 09/30/16 08: 53; Admin Dose 220 MG; Start 09/29/16 at 09:00 Insulin Aspart (Novolog Insulin Pen) NOVOLOG *MILD* ALGORI... Q6 SC ; Start at 18:00 Metoclopramide HCl (Reglan) 5 mg Q6 IV Last administered on 09/30/16 11:22; Admin Dose 5 MG; Start 09/29/16 at 12:00; Stop 10/01/16 at 11:59 Ondansetron HCl (Zofran Inj) 4 mg Q6H PRN IV NAUSEA AND/OR VOMITING; Start at 07:30 Heparin Sodium (Porcine) 5000 unit 5,000 unit BID SC Last administered on 08:52; Admin Dose 5,000 UNIT; Start 09/29/16 at 09:00 Colistimethate Sodium/Sodium Chloride (Coly-Mycin/NS) 100 ml @ 200 mls/hr DAILY IVPB Last administered on 09/30/16 12:56; Admin Dose 200 MLS/HR; Start 09/30/16 at 11:00 Linezolid (Zyvox) 600 mg BID PO Last administered on 09/30/16 11:23; Admin Dose 600 MG; Start 09/30/16 at 11:30 KEVYN GARNETT Sep 30, 2016 14:26
--- NOTE | 2016-09-30 14:40 | PN ---
Date/Time of Note Date/Time of Note DATE: 09/30/16 TIME: 14:34 Assessment/Plan VTE Prophylaxis VTE Prophylaxis Intervention: SCD's Assessment/Plan Chief Complaint/Hosp Course Problems: Assessment/Plan Acute anemia Evaluate GI bleed versus chronic iron deficiency vs other etiology Stool OB, negative Monitor H&H every 8 hours, transfuse 2 units for hemoglobin less than 7.5 Monitor labs Continue PPI drips EGD if clinically indicated Sepsis Currently on antibiotics Infectious disease following Chronic respiratory failure on ventilator Management per Pulmonology Subjective 24 Hr Interval Summary Free Text/Dictation * course reviewed with nursing staff * patien seen and examined * no active bleeding,no melena nor hematemesis * tolerating tube feeding * latest hemoglobin 7.8 * still awaiting anesthesia consent Exam/Review of Systems Vital Signs Vitals Vital Signs Date Time Temp Pulse Resp B/P Pulse Ox O2 Delivery O2 Flow Rate FiO2 09/30/16 13:15 100 22 100 30 09/30/16 10:00 118/56 Mechanical Ventilator 09/30/16 08:00 98.8 Intake and Output 09/29/16 09/29/16 09/30/16 15:00 23:00 07:00 Intake Total 450 ml 1750 ml 980 ml Output Total 1160 ml 345 ml Balance 450 ml 590 ml 635 ml Exam Constitutional: Awake Integumentary Multiple decubitus ulcers Respiratory: Tracheostomy on vent Cardiovascular: regular rate and rhythm Gastrointestinal: soft, non-tender,gtube in placed,rectal tube draining Musculoskeletal: Contractures bilateral Results Result Diagram: 09/30/16 0430 09/30/16 0430 Results 24 hrs Laboratory Tests Test 09/29/16 17:44 09/30/16 01:12 09/30/16 04:30 09/30/16 06:22 Bedside Glucose 101 113 103 White Blood Count 11.3 H Red Blood Count 3.35 L Hemoglobin 7.8 L Hematocrit 27.7 L Mean Corpuscular Volume 82.7 Mean Corpuscular Hemoglobin 23.3 L Mean Corpuscular Hemoglobin Concent 28.2 L Red Cell Distribution Width 20.0 H Platelet Count 397 Mean Platelet Volume 12.1 H Neutrophils % 82.5 H Lymphocytes % 11.1 L Monocytes % 4.3 Eosinophils % 1.2 Basophils % 0.2 Nucleated Red Blood Cells % 0.0 Neutrophils # 9.3 H Lymphocytes # 1.3 Monocytes # 0.5 Eosinophils # 0.1 Basophils # 0.0 Nucleated Red Blood Cells # 0.0 Sodium Level 145 H Potassium Level 4.2 Chloride Level 113 H Carbon Dioxide Level 23 Anion Gap 13 Blood Urea Nitrogen 89 H Creatinine 1.23 Glucose Level 87 Calcium Level 7.3 L Test 09/30/16 11:27 Bedside Glucose 103 Medications Medications Current Medications Acetaminophen (Tylenol Supp) 650 mg Q4H PRN [place] PAIN LEVEL 1-3 OR FEVER; Start 09/24/16 at 03:00 Eye Lubricant (Artificial Tears Oph) 1 drop TID BOTH EYES Last administered on 09/30/16 12:56; Admin Dose 1 DROP; Start 09/24/16 at 09:00 Sodium Hypochlorite (Dakin'S (1/4 Strength)) 1 applic BID IRR Last administered on 09/30/16 08:50; Admin Dose 1 APPLIC; Start 09/24/16 at 21:00 Pantoprazole (Protonix Iv) 40 mg BID@06,18 IV Last administered on 09/30/16 06 :23; Admin Dose 40 MG; Start 09/24/16 at 18:00 Collagenase (Santyl) 1 applic DAILY TOP Last administered on 09/30/16 08:50; Admin Dose 1 APPLIC; Start 09/24/16 at 20:30 Miscellaneous Information 1 ea NOTE XX ; Start 09/24/16 at 21:00 Glucose (Glutose) 15 gm Q15M PRN PO DECREASED GLUCOSE; Start 09/24/16 at 21:00 Glucose (Glutose) 22.5 gm Q15M PRN PO DECREASED GLUCOSE; Start 09/24/16 at 21: 00 Dextrose (D50w Syringe) 25 ml Q15M PRN IV DECREASED GLUCOSE; Start 09/24/16 at 21:00 Dextrose (D50w Syringe) 50 ml Q15M PRN IV DECREASED GLUCOSE; Start 09/24/16 at 21:00 Glucagon (Glucagen) 1 mg Q15M PRN IM DECREASED GLUCOSE; Start 09/24/16 at 21:00 Glucose 15 gm 15 gm Q15M PRN BUCCAL DECREASED GLUCOSE; Start 09/24/16 at 21:00 Acetaminophen (Ofirmev 1000mg/ 100ml Iv) 100 ml @ 400 mls/hr Q6H PRN IVPB FEVER Last administered on 09/29/16 20:27; Admin Dose 400 MLS/HR; Start at 22:00 Mupirocin (Bactroban) 1 applic BID TOP Last administered on 09/30/16 08:49; Admin Dose 1 APPLIC; Start 09/25/16 at 21:00 Vancomycin HCl (Vancomycin Oral Syringe) 250 mg Q6 PO Last administered on 09/30 11:22; Admin Dose 250 MG; Start 09/26/16 at 18:00 Lactobacillus Acidoph/ Bulgaricus 1 tab 1 tab TID PO Last administered on 12:56; Admin Dose 1 TAB; Start 09/26/16 at 21:00 Potassium Chloride/Dextrose (D5W + KCl 20 Meq) 1,000 ml @ 50 mls/hr Q20H IV Last administered on 09/30/16 04:41; Admin Dose 50 MLS/HR; Start 09/27/16 at 10 :00 Atorvastatin Calcium (Lipitor) 20 mg QHS GTB Last administered on 09/29/16 20: 27; Admin Dose 20 MG; Start 09/28/16 at 21:00 Finasteride (Proscar) 5 mg DAILY GTB Last administered on 09/30/16 08:48; Admin Dose 5 MG; Start 09/29/16 at 09:00 Levothyroxine Sodium (Synthroid) 25 mcg DAILY@06 GTB Last administered on 06:23; Admin Dose 25 MCG; Start 09/29/16 at 06:00 Multivitamins Therapeutic (Theragran) 1 tab DAILY GTB Last administered on 09/30 08:49; Admin Dose 1 TAB; Start 09/29/16 at 09:00 Zinc Sulfate (Zinc Sulfate) 220 mg DAILY NGT Last administered on 09/30/16 08: 53; Admin Dose 220 MG; Start 09/29/16 at 09:00 Insulin Aspart (Novolog Insulin Pen) NOVOLOG *MILD* ALGORI... Q6 SC ; Start at 18:00 Metoclopramide HCl (Reglan) 5 mg Q6 IV Last administered on 09/30/16 11:22; Admin Dose 5 MG; Start 09/29/16 at 12:00; Stop 10/01/16 at 11:59 Ondansetron HCl (Zofran Inj) 4 mg Q6H PRN IV NAUSEA AND/OR VOMITING; Start at 07:30 Heparin Sodium (Porcine) 5000 unit 5,000 unit BID SC Last administered on 08:52; Admin Dose 5,000 UNIT; Start 09/29/16 at 09:00 Colistimethate Sodium/Sodium Chloride (Coly-Mycin/NS) 100 ml @ 200 mls/hr DAILY IVPB Last administered on 09/30/16 12:56; Admin Dose 200 MLS/HR; Start 09/30/16 at 11:00 Linezolid (Zyvox) 600 mg BID PO Last administered on 09/30/16 11:23; Admin Dose 600 MG; Start 09/30/16 at 11:30 JOSEF CASTRO MD Sep 30, 2016 14:40
--- NOTE | 2016-09-30 14:52 | CONS ---
Date/Time of Note Date/Time of Note DATE: 09/30/16 TIME: 14:51 Assessment/Plan Assessment/Plan Additional Assessment/Plan Severe septic shock Preserved ejection fraction Moderate aortic stenosis Respiratory failure Coronary artery disease Anemia Acute kidney injury, improving -Patient with progressive improved blood pressure. Fluid management as per our nephrology colleagues. Would hold any antihypertensives at the current time given labile blood pressure. Antibiotics as per infectious disease. Consultation Date/Type/Reason Admit Date/Time Sep 24, 2016 at 03:19 Initial Consult Date 09/24/16 Type of Consultation: cv Referring Provider: ROULA DEL TORO 24 HR Interval Summary Free Text/Dictation Patient seen and examined, no cardiac issues as per nursing staff Exam/Review of Systems Vital Signs Vitals Vital Signs Date Time Temp Pulse Resp B/P Pulse Ox O2 Delivery O2 Flow Rate FiO2 09/30/16 13:15 100 22 100 30 09/30/16 10:00 118/56 Mechanical Ventilator 09/30/16 08:00 98.8 Intake and Output 09/29/16 09/29/16 09/30/16 15:00 23:00 07:00 Intake Total 450 ml 1750 ml 980 ml Output Total 1160 ml 345 ml Balance 450 ml 590 ml 635 ml Exam Awake, no apparent distress Head: normocephalic Neck: other (Tracheostomy) Respiratory: other (Coarse breath sounds bilaterally, no wheezing) Cardiovascular: other (S1-S2 heard), regular rate and rhythm Gastrointestinal: bowel sounds, non-tender, other (No guarding), soft Extremities: edema (Trace), other (No cyanosis) Results Result Diagram: 09/30/16 0430 09/30/16 0430 Results 24 hrs Laboratory Tests Test 09/29/16 17:44 09/30/16 01:12 09/30/16 04:30 09/30/16 06:22 Bedside Glucose 101 113 103 White Blood Count 11.3 H Red Blood Count 3.35 L Hemoglobin 7.8 L Hematocrit 27.7 L Mean Corpuscular Volume 82.7 Mean Corpuscular Hemoglobin 23.3 L Mean Corpuscular Hemoglobin Concent 28.2 L Red Cell Distribution Width 20.0 H Platelet Count 397 Mean Platelet Volume 12.1 H Neutrophils % 82.5 H Lymphocytes % 11.1 L Monocytes % 4.3 Eosinophils % 1.2 Basophils % 0.2 Nucleated Red Blood Cells % 0.0 Neutrophils # 9.3 H Lymphocytes # 1.3 Monocytes # 0.5 Eosinophils # 0.1 Basophils # 0.0 Nucleated Red Blood Cells # 0.0 Sodium Level 145 H Potassium Level 4.2 Chloride Level 113 H Carbon Dioxide Level 23 Anion Gap 13 Blood Urea Nitrogen 89 H Creatinine 1.23 Glucose Level 87 Calcium Level 7.3 L Test 09/30/16 11:27 Bedside Glucose 103 Medications Medications Current Medications Acetaminophen (Tylenol Supp) 650 mg Q4H PRN [place] PAIN LEVEL 1-3 OR FEVER; Start 09/24/16 at 03:00 Eye Lubricant (Artificial Tears Oph) 1 drop TID BOTH EYES Last administered on 09/30/16 12:56; Admin Dose 1 DROP; Start 09/24/16 at 09:00 Sodium Hypochlorite (Dakin'S (1/4 Strength)) 1 applic BID IRR Last administered on 09/30/16 08:50; Admin Dose 1 APPLIC; Start 09/24/16 at 21:00 Pantoprazole (Protonix Iv) 40 mg BID@06,18 IV Last administered on 09/30/16 06 :23; Admin Dose 40 MG; Start 09/24/16 at 18:00 Collagenase (Santyl) 1 applic DAILY TOP Last administered on 09/30/16 08:50; Admin Dose 1 APPLIC; Start 09/24/16 at 20:30 Miscellaneous Information 1 ea NOTE XX ; Start 09/24/16 at 21:00 Glucose (Glutose) 15 gm Q15M PRN PO DECREASED GLUCOSE; Start 09/24/16 at 21:00 Glucose (Glutose) 22.5 gm Q15M PRN PO DECREASED GLUCOSE; Start 09/24/16 at 21: 00 Dextrose (D50w Syringe) 25 ml Q15M PRN IV DECREASED GLUCOSE; Start 09/24/16 at 21:00 Dextrose (D50w Syringe) 50 ml Q15M PRN IV DECREASED GLUCOSE; Start 09/24/16 at 21:00 Glucagon (Glucagen) 1 mg Q15M PRN IM DECREASED GLUCOSE; Start 09/24/16 at 21:00 Glucose 15 gm 15 gm Q15M PRN BUCCAL DECREASED GLUCOSE; Start 09/24/16 at 21:00 Acetaminophen (Ofirmev 1000mg/ 100ml Iv) 100 ml @ 400 mls/hr Q6H PRN IVPB FEVER Last administered on 09/29/16 20:27; Admin Dose 400 MLS/HR; Start at 22:00 Mupirocin (Bactroban) 1 applic BID TOP Last administered on 09/30/16 08:49; Admin Dose 1 APPLIC; Start 09/25/16 at 21:00 Vancomycin HCl (Vancomycin Oral Syringe) 250 mg Q6 PO Last administered on 09/30 11:22; Admin Dose 250 MG; Start 09/26/16 at 18:00 Lactobacillus Acidoph/ Bulgaricus 1 tab 1 tab TID PO Last administered on 12:56; Admin Dose 1 TAB; Start 09/26/16 at 21:00 Potassium Chloride/Dextrose (D5W + KCl 20 Meq) 1,000 ml @ 50 mls/hr Q20H IV Last administered on 09/30/16 04:41; Admin Dose 50 MLS/HR; Start 09/27/16 at 10 :00 Atorvastatin Calcium (Lipitor) 20 mg QHS GTB Last administered on 09/29/16 20: 27; Admin Dose 20 MG; Start 09/28/16 at 21:00 Finasteride (Proscar) 5 mg DAILY GTB Last administered on 09/30/16 08:48; Admin Dose 5 MG; Start 09/29/16 at 09:00 Levothyroxine Sodium (Synthroid) 25 mcg DAILY@06 GTB Last administered on 06:23; Admin Dose 25 MCG; Start 09/29/16 at 06:00 Multivitamins Therapeutic (Theragran) 1 tab DAILY GTB Last administered on 09/30 08:49; Admin Dose 1 TAB; Start 09/29/16 at 09:00 Zinc Sulfate (Zinc Sulfate) 220 mg DAILY NGT Last administered on 09/30/16 08: 53; Admin Dose 220 MG; Start 09/29/16 at 09:00 Insulin Aspart (Novolog Insulin Pen) NOVOLOG *MILD* ALGORI... Q6 SC ; Start at 18:00 Metoclopramide HCl (Reglan) 5 mg Q6 IV Last administered on 09/30/16 11:22; Admin Dose 5 MG; Start 09/29/16 at 12:00; Stop 10/01/16 at 11:59 Ondansetron HCl (Zofran Inj) 4 mg Q6H PRN IV NAUSEA AND/OR VOMITING; Start at 07:30 Heparin Sodium (Porcine) 5000 unit 5,000 unit BID SC Last administered on 08:52; Admin Dose 5,000 UNIT; Start 09/29/16 at 09:00 Colistimethate Sodium/Sodium Chloride (Coly-Mycin/NS) 100 ml @ 200 mls/hr DAILY IVPB Last administered on 09/30/16 12:56; Admin Dose 200 MLS/HR; Start 09/30/16 at 11:00 Linezolid (Zyvox) 600 mg BID PO Last administered on 09/30/16 11:23; Admin Dose 600 MG; Start 09/30/16 at 11:30 Ryder Wild DO Sep 30, 2016 14:52
[2016-09-30] MEDS: ATORVASTATIN 20 MG TAB GTB SCH (21:19)
[2016-10-01] VITALS (31 sets, daily range): BP systolic 90–133; BP diastolic 48–66; PULSE 90–111; RESP 11–24
[2016-10-01] MEDS: METOCLOPRAMIDE 10 MG INJ IV SCH ×2 (01:18→05:31)
[2016-10-01] MEDS: VANCOMYCIN HCL 250 MG/5ML POSYG PO SCH ×4 (01:18→18:00)
[2016-10-01] MEDS: D5W + KCL 20 MEQ 1,000 ML IV SCH (01:18)
[2016-10-01] MEDS: IPRATROPIUM (HFA) 12.9 GM INHALER INH SCH ×5 (01:28→19:53)
[2016-10-01] MEDS: ALBUTEROL HFA 8 GM INHALER INH SCH ×5 (01:28→19:53)
[2016-10-01] MEDS: SODIUM HYPOCHLORITE 0.125% 473 ML BTL IRR SCH ×3 (05:04→20:10)
[2016-10-01 05:08] LABS: ADD SCAN DIFF NO
[2016-10-01 05:15] LABS: ABNORMAL IP MESSAGE 1; BASOPHILS % 0.1 % (0.0-2.0); EOSINOPHILS # 0.2 10^3/ul (0.0-0.5); EOSINOPHILS % 1.6 % (0.0-7.0); HEMATOCRIT 27.1 % (42.0-52.0); HEMOGLOBIN 7.5 g/dl (14.0-18.0); LYMPHOCYTES # 1.7 10^3/ul (0.8-2.9); LYMPHOCYTES % 16.7 % (15.0-51.0); MEAN CORPUSCULAR HEMOGLOBIN 23.1 pg (29.0-33.0); MEAN CORPUSCULAR HGB CONC 27.7 g/dl (32.0-37.0); MEAN CORPUSCULAR VOLUME 83.4 fl (82.0-101.0); MEAN PLATELET VOLUME 11.7 fl (7.4-10.4); MONOCYTE # 0.7 10^3/ul (0.3-0.9); MONOCYTES % 6.3 % (0.0-11.0); NEUTROPHIL # 7.7 10^3/ul (1.6-7.5); NEUTROPHILS % 74.5 % (39.0-77.0); PLATELET COUNT 441 10^3/UL (140-415); RED BLOOD COUNT 3.25 10^6/ul (4.70-6.10); RED CELL DISTRIBUTION WIDTH 20.4 % (11.5-14.5); WHITE BLOOD COUNT 10.3 10^3/ul (4.8-10.8)
[2016-10-01] MEDS: LEVOTHYROXINE 25 MCG TAB GTB SCH (05:31)
[2016-10-01] MEDS: PANTOPRAZOLE 40 MG INJ IV SCH ×2 (05:31→18:00)
[2016-10-01 07:35] LABS: POTASSIUM 4.2 mmol/L (3.5-5.1)
[2016-10-01 07:37] LABS: CREATININE 1.26 mg/dl (0.61-1.24)
[2016-10-01 07:38] LABS: CALCIUM 7.5 mg/dl (8.4-10.2)
[2016-10-01] MEDS: INSULIN ASPART [NOVOLOG] 3 ML PEN SC SCH ×4 (07:50→18:00)
[2016-10-01] MEDS: ARTIFICIAL TEARS 15 ML OPH BOTH EYES SCH ×3 (09:05→20:10)
[2016-10-01] MEDS: MULTIVITAMINS THERAPEUTIC TAB GTB SCH (09:06)
[2016-10-01] MEDS: ZINC SULFATE 220 MG CAP NGT SCH (09:06)
[2016-10-01] MEDS: FINASTERIDE 5 MG TAB GTB SCH (09:06)
[2016-10-01] MEDS: ZYVOX 600 MG TAB PO SCH ×2 (09:06→20:11)
[2016-10-01] MEDS: LACTOBACILLUS CHEW TAB PO SCH ×3 (09:06→20:10)
[2016-10-01] MEDS: HEPARIN 5,000 UNIT/0.5 ML VIAL SC SCH ×2 (09:07→20:14)
[2016-10-01] MEDS: MUPIROCIN 2% 22 GM OINT TOP SCH ×2 (09:07→20:11)
[2016-10-01] MEDS: COLLAGENASE 30 GM TUBE TOP SCH (09:07)
[2016-10-01] MEDS: COLISTIMETHATE 75 MG in SOD CHLORIDE 0.9% 100 ML IVPB SCH (09:09)
--- NOTE | 2016-10-01 09:29 | CONS ---
Date/Time of Note Date/Time of Note DATE: 10/01/16 TIME: 09:27 Assessment/Plan Assessment/Plan Additional Assessment/Plan 1. Acute kidney injury versus acute kidney injury on chronic kidney disease. This is likely secondary to severe prerenal azotemia causing ischemic acute tubular necrosis. 2. Severe hyponatremia with a sodium of 165 due to the large volume of free water deficit, likely deficits up to 8-9 liters. 3. Contraction metabolic alkalosis with a bicarbonate of 40.- improved 4. Septic shock with lactic acid of 8.7 secondary to urinary tract infection and pneumonia. on 3 pressors 5. History of chronic respiratory failure, status post tracheostomy, on ventilator. 6. History of G-tube. 7. Poor mental status due to the previous cerebrovascular accident. 8. History of dementia. 9. History of hypertension. PLAN: BUN slightly improved, Cr normal ,Na normal, Continue D5W- decrease rate to 40cc/hr U/O 1.8 liter will follow up Total time spent int his patient follow up progress note, Updating Ancillary staff, Talked with SW to locate family member and communicating with Nursing Staff took more than 60 minutes Consultation Date/Type/Reason Admit Date/Time Sep 24, 2016 at 03:19 Initial Consult Date 09/24/16 Type of Consultation: NEPHROLOGY Referring Provider: ROULA DEL TORO 24 HR Interval Summary Free Text/Dictation pt stable, Exam/Review of Systems Vital Signs Vitals Vital Signs Date Time Temp Pulse Resp B/P Pulse Ox O2 Delivery O2 Flow Rate FiO2 10/01/16 09:00 100 20 101/48 100 Mechanical Ventilator 10/01/16 08:00 98.6 10/01/16 08:00 30 Intake and Output 09/30/16 09/30/16 10/01/16 15:00 23:00 07:00 Intake Total 980 ml 880 ml 980 ml Output Total 550 ml 585 ml 1065 ml Balance 430 ml 295 ml -85 ml Exam GENERAL: noacute distress HEENT: Unremarkable NECK: Trach -> Secure to Vent CHEST: Equal chest rise bilaterally, without dyspnea on observation HEART: S1 S2 RRR no murmur ABDOMEN: Soft/peg EXTREMITIES: Warm SKIN: See hard chart skin assessment Results Result Diagram: 10/01/16 0400 10/01/16 0400 Results 24 hrs Laboratory Tests Test 09/30/16 11:27 09/30/16 13:15 09/30/16 18:02 10/01/16 01:01 Bedside Glucose 103 105 91 Stool Occult Blood NEGATIVE Test 10/01/16 04:00 10/01/16 06:30 White Blood Count 10.3 Red Blood Count 3.25 L Hemoglobin 7.5 L Hematocrit 27.1 L Mean Corpuscular Volume 83.4 Mean Corpuscular Hemoglobin 23.1 L Mean Corpuscular Hemoglobin Concent 27.7 L Red Cell Distribution Width 20.4 H Platelet Count 441 H Mean Platelet Volume 11.7 H Neutrophils % 74.5 Lymphocytes % 16.7 Monocytes % 6.3 Eosinophils % 1.6 Basophils % 0.1 Nucleated Red Blood Cells % 0.0 Neutrophils # 7.7 H Lymphocytes # 1.7 Monocytes # 0.7 Eosinophils # 0.2 Basophils # 0.0 Nucleated Red Blood Cells # 0.0 Sodium Level 142 Potassium Level 4.2 Chloride Level 113 H Carbon Dioxide Level 22 Anion Gap 11 Blood Urea Nitrogen 78 H Creatinine 1.26 H Glucose Level 83 Calcium Level 7.5 L Bedside Glucose 96 Medications Medications Current Medications Acetaminophen (Tylenol Supp) 650 mg Q4H PRN [place] PAIN LEVEL 1-3 OR FEVER; Start 09/24/16 at 03:00 Eye Lubricant (Artificial Tears Oph) 1 drop TID BOTH EYES Last administered on 10/01/16 09:05; Admin Dose 1 DROP; Start 09/24/16 at 09:00 Sodium Hypochlorite (Dakin'S (1/4 Strength)) 1 applic BID IRR Last administered on 10/01/16 09:07; Admin Dose 1 APPLIC; Start 09/24/16 at 21:00 Pantoprazole (Protonix Iv) 40 mg BID@06,18 IV Last administered on 10/01/16 05 :31; Admin Dose 40 MG; Start 09/24/16 at 18:00 Collagenase (Santyl) 1 applic DAILY TOP Last administered on 10/01/16 09:07; Admin Dose 1 APPLIC; Start 09/24/16 at 20:30 Miscellaneous Information 1 ea NOTE XX ; Start 09/24/16 at 21:00 Glucose (Glutose) 15 gm Q15M PRN PO DECREASED GLUCOSE; Start 09/24/16 at 21:00 Glucose (Glutose) 22.5 gm Q15M PRN PO DECREASED GLUCOSE; Start 09/24/16 at 21: 00 Dextrose (D50w Syringe) 25 ml Q15M PRN IV DECREASED GLUCOSE; Start 09/24/16 at 21:00 Dextrose (D50w Syringe) 50 ml Q15M PRN IV DECREASED GLUCOSE; Start 09/24/16 at 21:00 Glucagon (Glucagen) 1 mg Q15M PRN IM DECREASED GLUCOSE; Start 09/24/16 at 21:00 Glucose 15 gm 15 gm Q15M PRN BUCCAL DECREASED GLUCOSE; Start 09/24/16 at 21:00 Acetaminophen (Ofirmev 1000mg/ 100ml Iv) 100 ml @ 400 mls/hr Q6H PRN IVPB FEVER Last administered on 09/29/16 20:27; Admin Dose 400 MLS/HR; Start at 22:00 Mupirocin (Bactroban) 1 applic BID TOP Last administered on 10/01/16 09:07; Admin Dose 1 APPLIC; Start 09/25/16 at 21:00 Vancomycin HCl (Vancomycin Oral Syringe) 250 mg Q6 PO Last administered on 10/01 05:31; Admin Dose 250 MG; Start 09/26/16 at 18:00 Lactobacillus Acidoph/ Bulgaricus 1 tab 1 tab TID PO Last administered on 09:06; Admin Dose 1 TAB; Start 09/26/16 at 21:00 Potassium Chloride/Dextrose (D5W + KCl 20 Meq) 1,000 ml @ 50 mls/hr Q20H IV Last administered on 10/01/16 01:18; Admin Dose 50 MLS/HR; Start 09/27/16 at 10 :00 Atorvastatin Calcium (Lipitor) 20 mg QHS GTB Last administered on 09/30/16 21: 19; Admin Dose 20 MG; Start 09/28/16 at 21:00 Finasteride (Proscar) 5 mg DAILY GTB Last administered on 10/01/16 09:06; Admin Dose 5 MG; Start 09/29/16 at 09:00 Levothyroxine Sodium (Synthroid) 25 mcg DAILY@06 GTB Last administered on 05:31; Admin Dose 25 MCG; Start 09/29/16 at 06:00 Multivitamins Therapeutic (Theragran) 1 tab DAILY GTB Last administered on 10/01 09:06; Admin Dose 1 TAB; Start 09/29/16 at 09:00 Zinc Sulfate (Zinc Sulfate) 220 mg DAILY NGT Last administered on 10/01/16 09: 06; Admin Dose 220 MG; Start 09/29/16 at 09:00 Insulin Aspart (Novolog Insulin Pen) NOVOLOG *MILD* ALGORI... Q6 SC ; Start at 18:00 Metoclopramide HCl (Reglan) 5 mg Q6 IV Last administered on 10/01/16 05:31; Admin Dose 5 MG; Start 09/29/16 at 12:00; Stop 10/01/16 at 11:59 Ondansetron HCl (Zofran Inj) 4 mg Q6H PRN IV NAUSEA AND/OR VOMITING; Start at 07:30 Heparin Sodium (Porcine) 5000 unit 5,000 unit BID SC Last administered on 09:07; Admin Dose 5,000 UNIT; Start 09/29/16 at 09:00 Colistimethate Sodium/Sodium Chloride (Coly-Mycin/NS) 100 ml @ 200 mls/hr DAILY IVPB Last administered on 10/01/16 09:09; Admin Dose 200 MLS/HR; Start 09/30/16 at 11:00 Linezolid (Zyvox) 600 mg BID PO Last administered on 10/01/16 09:06; Admin Dose 600 MG; Start 09/30/16 at 11:30 MAGGIE DINERO MD Oct 01, 2016 09:29
--- NOTE | 2016-10-01 11:03 | CONS ---
Date/Time of Note Date/Time of Note DATE: 10/01/16 TIME: 11:01 Consult Date/Type/Reason Admit Date/Time Sep 24, 2016 at 03:19 Initial Consult Date 09/24/16 Type of Consultation: pulmonary/ICU Ordering Provider: ROULA DEL TORO Subjective No significant changes Makes eye contact but remains nonverbal Remains hemodynamically stable Objective Vital Signs Date Time Temp Pulse Resp B/P Pulse Ox O2 Delivery O2 Flow Rate FiO2 10/01/16 10:00 102 24 107/56 100 Mechanical Ventilator 10/01/16 08:00 98.6 10/01/16 08:00 30 Intake and Output 09/30/16 09/30/16 10/01/16 15:00 23:00 07:00 Intake Total 980 ml 880 ml 980 ml Output Total 550 ml 585 ml 1065 ml Balance 430 ml 295 ml -85 ml Exam PHYSICAL EXAMINATION GENERAL: Elderly gentleman, continues mechanical ventilation via tracheostomy VITAL SIGNS: see below. HEENT: Pupils equal, round, and reactive to light. Tracheostomy site clean and intact. CARDIAC: S1, S2, 2 systolic ejection murmur CHEST: Diminished air entry bilaterally. ABDOMEN: Mildly distended. Bowel sounds present EXTREMITIES: No cyanosis, clubbing edema +2 NEUROLOGIC: Unable to assess Results/Medications Result Diagram: 10/01/16 0400 10/01/16 0400 Results 24 hrs Laboratory Tests Test 09/30/16 11:27 09/30/16 13:15 09/30/16 18:02 10/01/16 01:01 Bedside Glucose 103 105 91 Stool Occult Blood NEGATIVE Test 10/01/16 04:00 10/01/16 06:30 White Blood Count 10.3 Red Blood Count 3.25 L Hemoglobin 7.5 L Hematocrit 27.1 L Mean Corpuscular Volume 83.4 Mean Corpuscular Hemoglobin 23.1 L Mean Corpuscular Hemoglobin Concent 27.7 L Red Cell Distribution Width 20.4 H Platelet Count 441 H Mean Platelet Volume 11.7 H Neutrophils % 74.5 Lymphocytes % 16.7 Monocytes % 6.3 Eosinophils % 1.6 Basophils % 0.1 Nucleated Red Blood Cells % 0.0 Neutrophils # 7.7 H Lymphocytes # 1.7 Monocytes # 0.7 Eosinophils # 0.2 Basophils # 0.0 Nucleated Red Blood Cells # 0.0 Sodium Level 142 Potassium Level 4.2 Chloride Level 113 H Carbon Dioxide Level 22 Anion Gap 11 Blood Urea Nitrogen 78 H Creatinine 1.26 H Glucose Level 83 Calcium Level 7.5 L Bedside Glucose 96 Medications Current Medications Acetaminophen (Tylenol Supp) 650 mg Q4H PRN [place] PAIN LEVEL 1-3 OR FEVER; Start 09/24/16 at 03:00 Eye Lubricant (Artificial Tears Oph) 1 drop TID BOTH EYES Last administered on 10/01/16 09:05; Admin Dose 1 DROP; Start 09/24/16 at 09:00 Sodium Hypochlorite (Dakin'S (1/4 Strength)) 1 applic BID IRR Last administered on 10/01/16 09:07; Admin Dose 1 APPLIC; Start 09/24/16 at 21:00 Pantoprazole (Protonix Iv) 40 mg BID@06,18 IV Last administered on 10/01/16 05 :31; Admin Dose 40 MG; Start 09/24/16 at 18:00 Collagenase (Santyl) 1 applic DAILY TOP Last administered on 10/01/16 09:07; Admin Dose 1 APPLIC; Start 09/24/16 at 20:30 Miscellaneous Information 1 ea NOTE XX ; Start 09/24/16 at 21:00 Glucose (Glutose) 15 gm Q15M PRN PO DECREASED GLUCOSE; Start 09/24/16 at 21:00 Glucose (Glutose) 22.5 gm Q15M PRN PO DECREASED GLUCOSE; Start 09/24/16 at 21: 00 Dextrose (D50w Syringe) 25 ml Q15M PRN IV DECREASED GLUCOSE; Start 09/24/16 at 21:00 Dextrose (D50w Syringe) 50 ml Q15M PRN IV DECREASED GLUCOSE; Start 09/24/16 at 21:00 Glucagon (Glucagen) 1 mg Q15M PRN IM DECREASED GLUCOSE; Start 09/24/16 at 21:00 Glucose 15 gm 15 gm Q15M PRN BUCCAL DECREASED GLUCOSE; Start 09/24/16 at 21:00 Acetaminophen (Ofirmev 1000mg/ 100ml Iv) 100 ml @ 400 mls/hr Q6H PRN IVPB FEVER Last administered on 09/29/16 20:27; Admin Dose 400 MLS/HR; Start at 22:00 Mupirocin (Bactroban) 1 applic BID TOP Last administered on 10/01/16 09:07; Admin Dose 1 APPLIC; Start 09/25/16 at 21:00 Vancomycin HCl (Vancomycin Oral Syringe) 250 mg Q6 PO Last administered on 10/01 05:31; Admin Dose 250 MG; Start 09/26/16 at 18:00 Lactobacillus Acidoph/ Bulgaricus 1 tab 1 tab TID PO Last administered on 09:06; Admin Dose 1 TAB; Start 09/26/16 at 21:00 Potassium Chloride/Dextrose (D5W + KCl 20 Meq) 1,000 ml @ 40 mls/hr Q24H IV Last administered on 10/01/16 01:18; Admin Dose 50 MLS/HR; Start 09/27/16 at 10 :00 Atorvastatin Calcium (Lipitor) 20 mg QHS GTB Last administered on 09/30/16 21: 19; Admin Dose 20 MG; Start 09/28/16 at 21:00 Finasteride (Proscar) 5 mg DAILY GTB Last administered on 10/01/16 09:06; Admin Dose 5 MG; Start 09/29/16 at 09:00 Levothyroxine Sodium (Synthroid) 25 mcg DAILY@06 GTB Last administered on 05:31; Admin Dose 25 MCG; Start 09/29/16 at 06:00 Multivitamins Therapeutic (Theragran) 1 tab DAILY GTB Last administered on 10/01 09:06; Admin Dose 1 TAB; Start 09/29/16 at 09:00 Zinc Sulfate (Zinc Sulfate) 220 mg DAILY NGT Last administered on 10/01/16 09: 06; Admin Dose 220 MG; Start 09/29/16 at 09:00 Insulin Aspart (Novolog Insulin Pen) NOVOLOG *MILD* ALGORI... Q6 SC ; Start at 18:00 Metoclopramide HCl (Reglan) 5 mg Q6 IV Last administered on 10/01/16 05:31; Admin Dose 5 MG; Start 09/29/16 at 12:00; Stop 10/01/16 at 11:59 Ondansetron HCl (Zofran Inj) 4 mg Q6H PRN IV NAUSEA AND/OR VOMITING; Start at 07:30 Heparin Sodium (Porcine) 5000 unit 5,000 unit BID SC Last administered on 09:07; Admin Dose 5,000 UNIT; Start 09/29/16 at 09:00 Colistimethate Sodium/Sodium Chloride (Coly-Mycin/NS) 100 ml @ 200 mls/hr DAILY IVPB Last administered on 10/01/16 09:09; Admin Dose 200 MLS/HR; Start 09/30/16 at 11:00 Linezolid (Zyvox) 600 mg BID PO Last administered on 10/01/16 09:06; Admin Dose 600 MG; Start 09/30/16 at 11:30 Assessment/Plan Chief Complaint/Hosp Course Assessment 1. Status post Septic shock likely secondary to pneumonia 2. Significant anemia requiring blood transfusions 3. Vent dependent respiratory failure 4. Dysphagia with G-tube 5. Hypernatremia 6. History of renal insufficiency Plan 1. Continue mechanical ventilation 2. Continue antibiotics per infectious diseases 3. Consider transfusion packed red blood cells 4. Continue renal recommendations Disposition Transfer to telemetry Palliative care consult [place] evaluation Problems: AB[facility] DELCID [facility] Oct 01, 2016 11:03
--- NOTE | 2016-10-01 12:43 | CONS ---
DATE OF ADMISSION: 09/24/2016 DATE OF CONSULTATION: 10/01/2016 PALLIATIVE CARE CONSULTATION HISTORY OF PRESENT ILLNESS: By history, this gentleman was admitted to [facility] on 09/24/2016 with severe sepsis. The patient was a non-historian when he presented to the emergen cy room. He was brought in by rescue, from the medical records, 81; hypotensive with a blood pressu re systolic in the 60s. The patient is vent dependent, has a PEG, trach. Past medical history: At [facility] fibrillation, chronic kidney disease, multiple pressure ulcers. Once again, we have an incomp ete database insofar as what may have precipitated his hypotension and transfer to the hospital and admission to the intensive care unit. I am asked to see patient and speak to family members. He is a FULL CODE. MEDICATIONS: Please refer to reconciliation sheets. ALLERGIES: NO KNOWN DRUG ALLERGIES. MAJOR MEDICAL PROBLEMS IN THE PAST: Entirely per history of present illness. SOCIAL HISTORY: We cannot obtain in his past medical unknown social history. FAMILY HISTORY: Unknown. REVIEW OF SYSTEMS: Cannot be obtained. PHYSICAL EXAMINATION: GENERAL: Shows an ill-appearing elderly gentleman who tracks me but does not follow any simple comm ands. VITAL SIGNS: Blood pressure 101/48, pulse of 100, respiration 20, temperature of 98.6 degree, 100% saturation on 30% FIO2. CHEST: Clear. COR: S1, S2, without S3, S4, murmur, gallop, rub. Normal rate and normal rhythm. ABDOMEN: Grossly benign on exam. LABORATORY DATA: White blood cell count of 10.3, hemoglobin of 7.5, hematocrit of 27.1, MCV of 83.4 , platelet count of 441,000. Chemistry: Serum sodium 142, potassium 4.2, chloride 113, bicarbonate 22, BUN of 70 and creatinine of 1.26 ASSESSMENT AND PLAN: I will contact family members insofar as this gentleman's overall diagnosis on presentation, severe sepsis, and multiple other major comorbid medical problems makes him high risk for recurrent admissions to the hospital and other bouts of severe infections. I understand there is a family member who has visited him, who speaks very little [place]. I will try and contact, try and set up a meeting with an loan associate to clarify code status and ongoing care. Patient wei rodriguez is a candidate for outpatient hospice services. Dictated By: SITA OCONNOR MD, LP/ELIZABETH Conf#: [id number] DID#: [id number]
--- NOTE | 2016-10-01 13:56 | PN ---
DATE: 10/01/2016 SUBJECTIVE: No acute events, no fevers. The patient was transferred to telemetry. He opens eyes, does not follow commands and in no distress. LABORATORY DATA: WBC 10.3, H and H 7.5 and 27.1, platelets 441, neutrophils 74.5. BUN 78, creatini ne 1.26. ANTIMICROBIALS: 1. Zyvox. 2. Colistin. 3. Oral vancomycin. 4. Topical Bactroban to nares. INDWELLINGS: Trach, PEG, Cee , left subclavian triple-lumen catheter. PHYSICAL EXAMINATION: GENERAL: This is a chronically ill-appearing, elderly man who is awake, in no distress. HEENT: Head atraumatic, normocephalic. Sclerae anicteric. Buccal mucosa dry. NECK: Supple. Tracheostomy present. CHEST: Rise symmetrical. Breath sounds diminished to bases. HEART: S1, S2. ABDOMEN: Soft. Bowel sounds present. EXTREMITIES: Without cyanosis. Bilateral trace edema. SKIN: With multiple chronic decubiti. ASSESSMENT: 1. Resolving sepsis status post shock. 2. Multidrug-resistant Escherichia coli with bacteremia. 3. Methicillin-resistant Staphylococcus aureus nares colonization. 4. Multiple chronic wounds with culture growing multidrug-resistant organisms. 5. Chronic respiratory failure. 6. Anemia. 7. History of cerebrovascular accident. 8. Coronary artery disease with moderate aortic stenosis. PLAN: The patient remains stable on appropriate antimicrobials which we are going to continue. Con tinue local wound care as per surgical recommendations. Monitor renal function. Dictated By: CHRISTOPHER MCDONOUGH DIRECTOR [employer] for YAQUELIN SMYTH/ELIZABETH Conf#: [id number] DID#: [id number]
--- NOTE | 2016-10-01 16:46 | PN ---
Date/Time of Note Date/Time of Note DATE: 10/01/16 TIME: 16:37 Assessment/Plan VTE Prophylaxis VTE Prophylaxis Intervention: SCD's Lines/Catheters IV Catheter Type (from [facility]): Central Line Central line still needed: Yes Urinary Cath still in place: Yes Reason Cath still needed: urinary retention Assessment/Plan Chief Complaint/Hosp Course Problems: Assessment/Plan Assessment * Anemia * GI bleed vs chronic iron deficiency vs others * Vent dependent chronic respiratory failure * Sepsis improved * Multiple decubitus ulcer Plan * continue present management * will follow PRN Subjective 24 Hr Interval Summary Free Text/Dictation * course reviewed with nurse * patient seen and examined * no active bleeding,no hematemesis,no hematochezia * latest hemoglobin 7.5 Exam/Review of Systems Vital Signs Vitals Vital Signs Date Time Temp Pulse Resp B/P Pulse Ox O2 Delivery O2 Flow Rate FiO2 10/01/16 16:19 99 10/01/16 15:25 99.2 20 105/53 92 10/01/16 15:05 30 10/01/16 14:00 Mechanical Ventilator Intake and Output 09/30/16 09/30/16 10/01/16 15:00 23:00 07:00 Intake Total 980 ml 880 ml 980 ml Output Total 550 ml 585 ml 1065 ml Balance 430 ml 295 ml -85 ml Exam Constitutional: Awake Integumentary Multiple decubitus ulcers Respiratory: Tracheostomy on vent Cardiovascular: regular rate and rhythm Gastrointestinal: soft, non-tender,gtube in placed,rectal tube draining Musculoskeletal: Contractures bilateral Results Result Diagram: 10/01/16 0400 10/01/16 0400 Results 24 hrs Laboratory Tests Test 09/30/16 18:02 10/01/16 01:01 10/01/16 04:00 10/01/16 06:30 Bedside Glucose 105 91 96 White Blood Count 10.3 Red Blood Count 3.25 L Hemoglobin 7.5 L Hematocrit 27.1 L Mean Corpuscular Volume 83.4 Mean Corpuscular Hemoglobin 23.1 L Mean Corpuscular Hemoglobin Concent 27.7 L Red Cell Distribution Width 20.4 H Platelet Count 441 H Mean Platelet Volume 11.7 H Neutrophils % 74.5 Lymphocytes % 16.7 Monocytes % 6.3 Eosinophils % 1.6 Basophils % 0.1 Nucleated Red Blood Cells % 0.0 Neutrophils # 7.7 H Lymphocytes # 1.7 Monocytes # 0.7 Eosinophils # 0.2 Basophils # 0.0 Nucleated Red Blood Cells # 0.0 Sodium Level 142 Potassium Level 4.2 Chloride Level 113 H Carbon Dioxide Level 22 Anion Gap 11 Blood Urea Nitrogen 78 H Creatinine 1.26 H Glucose Level 83 Calcium Level 7.5 L Test 10/01/16 12:54 Bedside Glucose 101 Medications Medications Current Medications Acetaminophen (Tylenol Supp) 650 mg Q4H PRN [place] PAIN LEVEL 1-3 OR FEVER; Start 09/24/16 at 03:00 Eye Lubricant (Artificial Tears Oph) 1 drop TID BOTH EYES Last administered on 10/01/16 12:52; Admin Dose 1 DROP; Start 09/24/16 at 09:00 Sodium Hypochlorite (Dakin'S (1/4 Strength)) 1 applic BID IRR Last administered on 10/01/16 09:07; Admin Dose 1 APPLIC; Start 09/24/16 at 21:00 Pantoprazole (Protonix Iv) 40 mg BID@06,18 IV Last administered on 10/01/16 05 :31; Admin Dose 40 MG; Start 09/24/16 at 18:00 Collagenase (Santyl) 1 applic DAILY TOP Last administered on 10/01/16 09:07; Admin Dose 1 APPLIC; Start 09/24/16 at 20:30 Miscellaneous Information 1 ea NOTE XX ; Start 09/24/16 at 21:00 Glucose (Glutose) 15 gm Q15M PRN PO DECREASED GLUCOSE; Start 09/24/16 at 21:00 Glucose (Glutose) 22.5 gm Q15M PRN PO DECREASED GLUCOSE; Start 09/24/16 at 21: 00 Dextrose (D50w Syringe) 25 ml Q15M PRN IV DECREASED GLUCOSE; Start 09/24/16 at 21:00 Dextrose (D50w Syringe) 50 ml Q15M PRN IV DECREASED GLUCOSE; Start 09/24/16 at 21:00 Glucagon (Glucagen) 1 mg Q15M PRN IM DECREASED GLUCOSE; Start 09/24/16 at 21:00 Glucose 15 gm 15 gm Q15M PRN BUCCAL DECREASED GLUCOSE; Start 09/24/16 at 21:00 Acetaminophen (Ofirmev 1000mg/ 100ml Iv) 100 ml @ 400 mls/hr Q6H PRN IVPB FEVER Last administered on 09/29/16 20:27; Admin Dose 400 MLS/HR; Start at 22:00 Mupirocin (Bactroban) 1 applic BID TOP Last administered on 10/01/16 09:07; Admin Dose 1 APPLIC; Start 09/25/16 at 21:00 Vancomycin HCl (Vancomycin Oral Syringe) 250 mg Q6 PO Last administered on 10/01 12:52; Admin Dose 250 MG; Start 09/26/16 at 18:00 Lactobacillus Acidoph/ Bulgaricus 1 tab 1 tab TID PO Last administered on 12:52; Admin Dose 1 TAB; Start 09/26/16 at 21:00 Potassium Chloride/Dextrose (D5W + KCl 20 Meq) 1,000 ml @ 40 mls/hr Q24H IV Last administered on 10/01/16 01:18; Admin Dose 50 MLS/HR; Start 09/27/16 at 10 :00 Atorvastatin Calcium (Lipitor) 20 mg QHS GTB Last administered on 09/30/16 21: 19; Admin Dose 20 MG; Start 09/28/16 at 21:00 Finasteride (Proscar) 5 mg DAILY GTB Last administered on 10/01/16 09:06; Admin Dose 5 MG; Start 09/29/16 at 09:00 Levothyroxine Sodium (Synthroid) 25 mcg DAILY@06 GTB Last administered on 05:31; Admin Dose 25 MCG; Start 09/29/16 at 06:00 Multivitamins Therapeutic (Theragran) 1 tab DAILY GTB Last administered on 10/01 09:06; Admin Dose 1 TAB; Start 09/29/16 at 09:00 Zinc Sulfate (Zinc Sulfate) 220 mg DAILY NGT Last administered on 10/01/16 09: 06; Admin Dose 220 MG; Start 09/29/16 at 09:00 Insulin Aspart (Novolog Insulin Pen) NOVOLOG *MILD* ALGORI... Q6 SC ; Start at 18:00 Ondansetron HCl (Zofran Inj) 4 mg Q6H PRN IV NAUSEA AND/OR VOMITING; Start at 07:30 Heparin Sodium (Porcine) 5000 unit 5,000 unit BID SC Last administered on 09:07; Admin Dose 5,000 UNIT; Start 09/29/16 at 09:00 Colistimethate Sodium/Sodium Chloride (Coly-Mycin/NS) 100 ml @ 200 mls/hr DAILY IVPB Last administered on 10/01/16 09:09; Admin Dose 200 MLS/HR; Start 09/30/16 at 11:00 Linezolid (Zyvox) 600 mg BID PO Last administered on 10/01/16 09:06; Admin Dose 600 MG; Start 09/30/16 at 11:30 JOSEF CASTRO MD Oct 01, 2016 16:46
--- NOTE | 2016-10-01 17:02 | CONS ---
Date/Time of Note Date/Time of Note DATE: 10/01/16 TIME: 17:00 Assessment/Plan Assessment/Plan Additional Assessment/Plan Severe septic shock Preserved ejection fraction Moderate aortic stenosis Respiratory failure Coronary artery disease Anemia Acute kidney injury, improving -Blood pressure trend remains stable. Fluid management as per our nephrology colleagues. Would continue to hold any antihypertensives at the current time given labile blood pressure. Antibiotics as per infectious disease. Consultation Date/Type/Reason Admit Date/Time Sep 24, 2016 at 03:19 Initial Consult Date 09/24/16 Type of Consultation: cv Referring Provider: ROULA DEL TORO 24 HR Interval Summary Free Text/Dictation Patient seen and examined Exam/Review of Systems Vital Signs Vitals Vital Signs Date Time Temp Pulse Resp B/P Pulse Ox O2 Delivery O2 Flow Rate FiO2 10/01/16 16:19 99 10/01/16 15:25 99.2 20 105/53 92 10/01/16 15:05 30 10/01/16 14:00 Mechanical Ventilator Intake and Output 09/30/16 09/30/16 10/01/16 15:00 23:00 07:00 Intake Total 980 ml 880 ml 980 ml Output Total 550 ml 585 ml 1065 ml Balance 430 ml 295 ml -85 ml Exam Awake, no apparent distress Head: normocephalic Neck: other (Tracheostomy) Respiratory: other (Coarse breath sounds bilaterally, no wheezing) Cardiovascular: other (S1-S2 heard), regular rate and rhythm Gastrointestinal: bowel sounds, non-tender, other (No grimacing with palpation) , soft Extremities: other (No edema or cyanosis) Results Result Diagram: 10/01/16 0400 10/01/16 0400 Results 24 hrs Laboratory Tests Test 09/30/16 18:02 10/01/16 01:01 10/01/16 04:00 10/01/16 06:30 Bedside Glucose 105 91 96 White Blood Count 10.3 Red Blood Count 3.25 L Hemoglobin 7.5 L Hematocrit 27.1 L Mean Corpuscular Volume 83.4 Mean Corpuscular Hemoglobin 23.1 L Mean Corpuscular Hemoglobin Concent 27.7 L Red Cell Distribution Width 20.4 H Platelet Count 441 H Mean Platelet Volume 11.7 H Neutrophils % 74.5 Lymphocytes % 16.7 Monocytes % 6.3 Eosinophils % 1.6 Basophils % 0.1 Nucleated Red Blood Cells % 0.0 Neutrophils # 7.7 H Lymphocytes # 1.7 Monocytes # 0.7 Eosinophils # 0.2 Basophils # 0.0 Nucleated Red Blood Cells # 0.0 Sodium Level 142 Potassium Level 4.2 Chloride Level 113 H Carbon Dioxide Level 22 Anion Gap 11 Blood Urea Nitrogen 78 H Creatinine 1.26 H Glucose Level 83 Calcium Level 7.5 L Test 10/01/16 12:54 Bedside Glucose 101 Medications Medications Current Medications Acetaminophen (Tylenol Supp) 650 mg Q4H PRN [place] PAIN LEVEL 1-3 OR FEVER; Start 09/24/16 at 03:00 Eye Lubricant (Artificial Tears Oph) 1 drop TID BOTH EYES Last administered on 10/01/16 12:52; Admin Dose 1 DROP; Start 09/24/16 at 09:00 Sodium Hypochlorite (Dakin'S (1/4 Strength)) 1 applic BID IRR Last administered on 10/01/16 09:07; Admin Dose 1 APPLIC; Start 09/24/16 at 21:00 Pantoprazole (Protonix Iv) 40 mg BID@06,18 IV Last administered on 10/01/16 05 :31; Admin Dose 40 MG; Start 09/24/16 at 18:00 Collagenase (Santyl) 1 applic DAILY TOP Last administered on 10/01/16 09:07; Admin Dose 1 APPLIC; Start 09/24/16 at 20:30 Miscellaneous Information 1 ea NOTE XX ; Start 09/24/16 at 21:00 Glucose (Glutose) 15 gm Q15M PRN PO DECREASED GLUCOSE; Start 09/24/16 at 21:00 Glucose (Glutose) 22.5 gm Q15M PRN PO DECREASED GLUCOSE; Start 09/24/16 at 21: 00 Dextrose (D50w Syringe) 25 ml Q15M PRN IV DECREASED GLUCOSE; Start 09/24/16 at 21:00 Dextrose (D50w Syringe) 50 ml Q15M PRN IV DECREASED GLUCOSE; Start 09/24/16 at 21:00 Glucagon (Glucagen) 1 mg Q15M PRN IM DECREASED GLUCOSE; Start 09/24/16 at 21:00 Glucose 15 gm 15 gm Q15M PRN BUCCAL DECREASED GLUCOSE; Start 09/24/16 at 21:00 Acetaminophen (Ofirmev 1000mg/ 100ml Iv) 100 ml @ 400 mls/hr Q6H PRN IVPB FEVER Last administered on 09/29/16 20:27; Admin Dose 400 MLS/HR; Start at 22:00 Mupirocin (Bactroban) 1 applic BID TOP Last administered on 10/01/16 09:07; Admin Dose 1 APPLIC; Start 09/25/16 at 21:00 Vancomycin HCl (Vancomycin Oral Syringe) 250 mg Q6 PO Last administered on 10/01 12:52; Admin Dose 250 MG; Start 09/26/16 at 18:00 Lactobacillus Acidoph/ Bulgaricus 1 tab 1 tab TID PO Last administered on 12:52; Admin Dose 1 TAB; Start 09/26/16 at 21:00 Potassium Chloride/Dextrose (D5W + KCl 20 Meq) 1,000 ml @ 40 mls/hr Q24H IV Last administered on 10/01/16 01:18; Admin Dose 50 MLS/HR; Start 09/27/16 at 10 :00 Atorvastatin Calcium (Lipitor) 20 mg QHS GTB Last administered on 09/30/16 21: 19; Admin Dose 20 MG; Start 09/28/16 at 21:00 Finasteride (Proscar) 5 mg DAILY GTB Last administered on 10/01/16 09:06; Admin Dose 5 MG; Start 09/29/16 at 09:00 Levothyroxine Sodium (Synthroid) 25 mcg DAILY@06 GTB Last administered on 05:31; Admin Dose 25 MCG; Start 09/29/16 at 06:00 Multivitamins Therapeutic (Theragran) 1 tab DAILY GTB Last administered on 10/01 09:06; Admin Dose 1 TAB; Start 09/29/16 at 09:00 Zinc Sulfate (Zinc Sulfate) 220 mg DAILY NGT Last administered on 10/01/16 09: 06; Admin Dose 220 MG; Start 09/29/16 at 09:00 Insulin Aspart (Novolog Insulin Pen) NOVOLOG *MILD* ALGORI... Q6 SC ; Start at 18:00 Ondansetron HCl (Zofran Inj) 4 mg Q6H PRN IV NAUSEA AND/OR VOMITING; Start at 07:30 Heparin Sodium (Porcine) 5000 unit 5,000 unit BID SC Last administered on 09:07; Admin Dose 5,000 UNIT; Start 09/29/16 at 09:00 Colistimethate Sodium/Sodium Chloride (Coly-Mycin/NS) 100 ml @ 200 mls/hr DAILY IVPB Last administered on 10/01/16 09:09; Admin Dose 200 MLS/HR; Start 09/30/16 at 11:00 Linezolid (Zyvox) 600 mg BID PO Last administered on 10/01/16 09:06; Admin Dose 600 MG; Start 09/30/16 at 11:30 Ryder Wild DO Oct 01, 2016 17:02
--- NOTE | 2016-10-01 17:56 | PN ---
Date/Time of Note Date/Time of Note DATE: 10/01/16 TIME: 17:55 Assessment/Plan VTE Prophylaxis VTE Prophylaxis Intervention: SCD's Assessment/Plan Chief Complaint/Hosp Course 1. Severe sepsis with septic shock 2/2 #4 and 5 : improved and off pressor support 2. Severe hypernatremia 2/2 dehydration: improving 3. Acute renal failure 2/2 ATN from dehydration: improving 4. Ecoli bacteremia and UTI : 5. Multifocal pneumonia (E coli / A baumanii) 6. 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 Hypochromic microcytic Iron deficiency anemia likely 2/2 chronic Bleed 8. Hypokalemia: resolved 9. Probable GI bleed (Coffee ground drainage from G tube) 10. Severe multiple pressure ulcers infected with multiple organisms including MRSA 11. Hx of severe C-diff/ pseudomembranous colitis 12. Hypothyroidism with good control: Levothyroxine 13. Chronic Dysphagia 2/2 encephalopathy 14. Chronic resp failure ventilator dependent Via tracheostomy PLAN: * DG to Tele, likely DC in AM * Monitor fever curve/ f/u repeat blood cultures / Change snider / if fever persists, d/w surgery re: possible debridement * Complete 5 days of Iv iron supplementation and the switch to oral * Continue current abx per ID / recommended wound care and supportive care * IVF managed per Nephro and patient has been restarted on tube feeds till family gives consent for EGD * Reduced tube feeds rate 2/2 residuals, add reglan * With degree of sores, Patient may require more aggressive intervention (? diverting colostomy) however will defer to surgery. Patient however is an extremely poor candidate and with comorbidities and baseline encephalopathy is more appropriate for hospice care instead / Palliative care consulted. PROPHYLAXIS: Start low dose heparin and monitor for bleeding / SCDS / Protonix Problems: Subjective 24 Hr Interval Summary Subjective hx not possible: pt non-verbal Exam/Review of Systems Vital Signs Vitals Vital Signs Date Time Temp Pulse Resp B/P Pulse Ox O2 Delivery O2 Flow Rate FiO2 10/01/16 16:57 103 20 98 30 10/01/16 15:25 99.2 105/53 10/01/16 14:00 Mechanical Ventilator Intake and Output 09/30/16 09/30/16 10/01/16 15:00 23:00 07:00 Intake Total 980 ml 880 ml 980 ml Output Total 550 ml 585 ml 1065 ml Balance 430 ml 295 ml -85 ml Exam Constitutional: non-verbal Respiratory: clear to auscultation Cardiovascular: regular rate and rhythm Gastrointestinal: soft, No distended Musculoskeletal: nl extremities to inspection Results Result Diagram: 10/01/16 0400 10/01/16 0400 Results 24 hrs Laboratory Tests Test 09/30/16 18:02 10/01/16 01:01 10/01/16 04:00 10/01/16 06:30 Bedside Glucose 105 91 96 White Blood Count 10.3 Red Blood Count 3.25 L Hemoglobin 7.5 L Hematocrit 27.1 L Mean Corpuscular Volume 83.4 Mean Corpuscular Hemoglobin 23.1 L Mean Corpuscular Hemoglobin Concent 27.7 L Red Cell Distribution Width 20.4 H Platelet Count 441 H Mean Platelet Volume 11.7 H Neutrophils % 74.5 Lymphocytes % 16.7 Monocytes % 6.3 Eosinophils % 1.6 Basophils % 0.1 Nucleated Red Blood Cells % 0.0 Neutrophils # 7.7 H Lymphocytes # 1.7 Monocytes # 0.7 Eosinophils # 0.2 Basophils # 0.0 Nucleated Red Blood Cells # 0.0 Sodium Level 142 Potassium Level 4.2 Chloride Level 113 H Carbon Dioxide Level 22 Anion Gap 11 Blood Urea Nitrogen 78 H Creatinine 1.26 H Glucose Level 83 Calcium Level 7.5 L Test 10/01/16 12:54 Bedside Glucose 101 Medications Medications Current Medications Acetaminophen (Tylenol Supp) [address] PAIN LEVEL 1-3 OR FEVER; Start 09/24/16 at 03:00 Eye Lubricant (Artificial Tears Oph) 1 drop TID BOTH EYES Last administered on 10/01/16 12:52; Admin Dose 1 DROP; Start 09/24/16 at 09:00 Sodium Hypochlorite (Dakin'S (1/4 Strength)) 1 applic BID IRR Last administered on 10/01/16 09:07; Admin Dose 1 APPLIC; Start 09/24/16 at 21:00 Pantoprazole (Protonix Iv) 40 mg BID@06,18 IV Last administered on 10/01/16 05 :31; Admin Dose 40 MG; Start 09/24/16 at 18:00 Collagenase (Santyl) 1 applic DAILY TOP Last administered on 10/01/16 09:07; Admin Dose 1 APPLIC; Start 09/24/16 at 20:30 Miscellaneous Information 1 ea NOTE XX ; Start 09/24/16 at 21:00 Glucose (Glutose) 15 gm Q15M PRN PO DECREASED GLUCOSE; Start 09/24/16 at 21:00 Glucose (Glutose) 22.5 gm Q15M PRN PO DECREASED GLUCOSE; Start 09/24/16 at 21: 00 Dextrose (D50w Syringe) 25 ml Q15M PRN IV DECREASED GLUCOSE; Start 09/24/16 at 21:00 Dextrose (D50w Syringe) 50 ml Q15M PRN IV DECREASED GLUCOSE; Start 09/24/16 at 21:00 Glucagon (Glucagen) 1 mg Q15M PRN IM DECREASED GLUCOSE; Start 09/24/16 at 21:00 Glucose 15 gm 15 gm Q15M PRN BUCCAL DECREASED GLUCOSE; Start 09/24/16 at 21:00 Acetaminophen (Ofirmev 1000mg/ 100ml Iv) 100 ml @ 400 mls/hr Q6H PRN IVPB FEVER Last administered on 09/29/16 20:27; Admin Dose 400 MLS/HR; Start at 22:00 Mupirocin (Bactroban) 1 applic BID TOP Last administered on 10/01/16 09:07; Admin Dose 1 APPLIC; Start 09/25/16 at 21:00 Vancomycin HCl (Vancomycin Oral Syringe) 250 mg Q6 PO Last administered on 10/01 12:52; Admin Dose 250 MG; Start 09/26/16 at 18:00 Lactobacillus Acidoph/ Bulgaricus 1 tab 1 tab TID PO Last administered on 12:52; Admin Dose 1 TAB; Start 09/26/16 at 21:00 Potassium Chloride/Dextrose (D5W + KCl 20 Meq) 1,000 ml @ 40 mls/hr Q24H IV Last administered on 10/01/16 01:18; Admin Dose 50 MLS/HR; Start 09/27/16 at 10 :00 Atorvastatin Calcium (Lipitor) 20 mg QHS GTB Last administered on 09/30/16 21: 19; Admin Dose 20 MG; Start 09/28/16 at 21:00 Finasteride (Proscar) 5 mg DAILY GTB Last administered on 10/01/16 09:06; Admin Dose 5 MG; Start 09/29/16 at 09:00 Levothyroxine Sodium (Synthroid) 25 mcg DAILY@06 GTB Last administered on 05:31; Admin Dose 25 MCG; Start 09/29/16 at 06:00 Multivitamins Therapeutic (Theragran) 1 tab DAILY GTB Last administered on 10/01 09:06; Admin Dose 1 TAB; Start 09/29/16 at 09:00 Zinc Sulfate (Zinc Sulfate) 220 mg DAILY NGT Last administered on 10/01/16 09: 06; Admin Dose 220 MG; Start 09/29/16 at 09:00 Insulin Aspart (Novolog Insulin Pen) NOVOLOG *MILD* ALGORI... Q6 SC ; Start at 18:00 Ondansetron HCl (Zofran Inj) 4 mg Q6H PRN IV NAUSEA AND/OR VOMITING; Start at 07:30 Heparin Sodium (Porcine) 5000 unit 5,000 unit BID SC Last administered on 09:07; Admin Dose 5,000 UNIT; Start 09/29/16 at 09:00 Colistimethate Sodium/Sodium Chloride (Coly-Mycin/NS) 100 ml @ 200 mls/hr DAILY IVPB Last administered on 10/01/16 09:09; Admin Dose 200 MLS/HR; Start 09/30/16 at 11:00 Linezolid (Zyvox) 600 mg BID PO Last administered on 10/01/16 09:06; Admin Dose 600 MG; Start 09/30/16 at 11:30 KEVYN GARNETT Oct 01, 2016 17:56
[2016-10-01] MEDS: ATORVASTATIN 20 MG TAB GTB SCH (20:10)
--- NOTE | 2016-10-01 22:18 | CONS ---
Date/Time of Note Date/Time of Note DATE: 10/01/16 TIME: 22:18 Assessment/Plan Assessment/Plan Chief Complaint/Hosp Course ANEMIA - NEAR- MICROCYTIC WITH INCREASED RDW DROP H/H DURING HOSPITALIZATION + ACD TRANSFUSE PRBC TO KEEP HB MORE THAN 8 TRANSFUSE NEEDED GI F-UP Stool OB, negative Monitor H&H every 8 hours, transfuse 2 units for hemoglobin less than 8 Continue PPI drips EGD PER Suchov LEUKOCYTOSIS- REACTIVE CONT ATB FOR SEPSIS THROMBOCYTOSIS REACTIVE SHOULD IMPROVE WITH RESOLUTION OF SEPSIS Severe sepsis with septic shock 2/2 #4 and 5 on aggressive pressor support Severe hypernatremic dehydration Acute renal failure 2/2 ATN from dehydration UTI Multifocal pneumonia Encephalopathy ?acute versus acute on chronic (baseline unknown) Hypokalemia Problems: Consultation Date/Type/Reason Admit Date/Time Sep 24, 2016 at 03:19 Initial Consult Date 09/24/16 Type of Consultation: hemeon Referring Provider: ROULA DEL TORO 24 HR Interval Summary Free Text/Dictation * course reviewed with nurse * patient seen and examined * no active bleeding,no hematemesis,no hematochezia * latest hemoglobin 7.5 Exam/Review of Systems Vital Signs Vitals Vital Signs Date Time Temp Pulse Resp B/P Pulse Ox O2 Delivery O2 Flow Rate FiO2 10/01/16 21:05 100 10/01/16 20:00 101.0 16 108/54 94 10/01/16 20:00 30 10/01/16 18:00 Mechanical Ventilator Intake and Output 09/30/16 09/30/16 10/01/16 15:00 23:00 07:00 Intake Total 980 ml 880 ml 980 ml Output Total 550 ml 585 ml 1065 ml Balance 430 ml 295 ml -85 ml Exam GENERAL: noacute distress HEENT: Unremarkable NECK: Trach -> Secure to Vent CHEST: Equal chest rise bilaterally, without dyspnea on observation HEART: S1 S2 RRR no murmur ABDOMEN: Soft/peg EXTREMITIES: Warm SKIN: See hard chart skin assessment Results Result Diagram: 10/01/16 0400 10/01/16 0400 Results 24 hrs Laboratory Tests Test 10/01/16 01:01 10/01/16 04:00 10/01/16 06:30 10/01/16 12:54 Bedside Glucose 91 96 101 White Blood Count 10.3 Red Blood Count 3.25 L Hemoglobin 7.5 L Hematocrit 27.1 L Mean Corpuscular Volume 83.4 Mean Corpuscular Hemoglobin 23.1 L Mean Corpuscular Hemoglobin Concent 27.7 L Red Cell Distribution Width 20.4 H Platelet Count 441 H Mean Platelet Volume 11.7 H Neutrophils % 74.5 Lymphocytes % 16.7 Monocytes % 6.3 Eosinophils % 1.6 Basophils % 0.1 Nucleated Red Blood Cells % 0.0 Neutrophils # 7.7 H Lymphocytes # 1.7 Monocytes # 0.7 Eosinophils # 0.2 Basophils # 0.0 Nucleated Red Blood Cells # 0.0 Sodium Level 142 Potassium Level 4.2 Chloride Level 113 H Carbon Dioxide Level 22 Anion Gap 11 Blood Urea Nitrogen 78 H Creatinine 1.26 H Glucose Level 83 Calcium Level 7.5 L Medications Medications Current Medications Acetaminophen (Tylenol Supp) 650 mg Q4H PRN [place] PAIN LEVEL 1-3 OR FEVER; Start 09/24/16 at 03:00 Eye Lubricant (Artificial Tears Oph) 1 drop TID BOTH EYES Last administered on 10/01/16 20:10; Admin Dose 1 DROP; Start 09/24/16 at 09:00 Sodium Hypochlorite (Dakin'S (1/4 Strength)) 1 applic BID IRR Last administered on 10/01/16 20:10; Admin Dose 1 APPLIC; Start 09/24/16 at 21:00 Pantoprazole (Protonix Iv) 40 mg BID@06,18 IV Last administered on 10/01/16 18 :00; Admin Dose 40 MG; Start 09/24/16 at 18:00 Collagenase (Santyl) 1 applic DAILY TOP Last administered on 10/01/16 09:07; Admin Dose 1 APPLIC; Start 09/24/16 at 20:30 Miscellaneous Information 1 ea NOTE XX ; Start 09/24/16 at 21:00 Glucose (Glutose) 15 gm Q15M PRN PO DECREASED GLUCOSE; Start 09/24/16 at 21:00 Glucose (Glutose) 22.5 gm Q15M PRN PO DECREASED GLUCOSE; Start 09/24/16 at 21: 00 Dextrose (D50w Syringe) 25 ml Q15M PRN IV DECREASED GLUCOSE; Start 09/24/16 at 21:00 Dextrose (D50w Syringe) 50 ml Q15M PRN IV DECREASED GLUCOSE; Start 09/24/16 at 21:00 Glucagon (Glucagen) 1 mg Q15M PRN IM DECREASED GLUCOSE; Start 09/24/16 at 21:00 Glucose 15 gm 15 gm Q15M PRN BUCCAL DECREASED GLUCOSE; Start 09/24/16 at 21:00 Acetaminophen (Ofirmev 1000mg/ 100ml Iv) 100 ml @ 400 mls/hr Q6H PRN IVPB FEVER Last administered on 09/29/16 20:27; Admin Dose 400 MLS/HR; Start at 22:00 Mupirocin (Bactroban) 1 applic BID TOP Last administered on 10/01/16 20:11; Admin Dose 1 APPLIC; Start 09/25/16 at 21:00 Vancomycin HCl (Vancomycin Oral Syringe) 250 mg Q6 PO Last administered on 10/01 18:00; Admin Dose 250 MG; Start 09/26/16 at 18:00 Lactobacillus Acidoph/ Bulgaricus 1 tab 1 tab TID PO Last administered on 20:10; Admin Dose 1 TAB; Start 09/26/16 at 21:00 Potassium Chloride/Dextrose (D5W + KCl 20 Meq) 1,000 ml @ 40 mls/hr Q24H IV Last administered on 10/01/16 01:18; Admin Dose 50 MLS/HR; Start 09/27/16 at 10 :00 Atorvastatin Calcium (Lipitor) 20 mg QHS GTB Last administered on 10/01/16 20: 10; Admin Dose 20 MG; Start 09/28/16 at 21:00 Finasteride (Proscar) 5 mg DAILY GTB Last administered on 10/01/16 09:06; Admin Dose 5 MG; Start 09/29/16 at 09:00 Levothyroxine Sodium (Synthroid) 25 mcg DAILY@06 GTB Last administered on 05:31; Admin Dose 25 MCG; Start 09/29/16 at 06:00 Multivitamins Therapeutic (Theragran) 1 tab DAILY GTB Last administered on 10/01 09:06; Admin Dose 1 TAB; Start 09/29/16 at 09:00 Zinc Sulfate (Zinc Sulfate) 220 mg DAILY NGT Last administered on 10/01/16 09: 06; Admin Dose 220 MG; Start 09/29/16 at 09:00 Insulin Aspart (Novolog Insulin Pen) NOVOLOG *MILD* ALGORI... Q6 SC ; Start at 18:00 Ondansetron HCl (Zofran Inj) 4 mg Q6H PRN IV NAUSEA AND/OR VOMITING; Start at 07:30 Heparin Sodium (Porcine) 5000 unit 5,000 unit BID SC Last administered on 20:14; Admin Dose 5,000 UNIT; Start 09/29/16 at 09:00 Colistimethate Sodium/Sodium Chloride (Coly-Mycin/NS) 100 ml @ 200 mls/hr DAILY IVPB Last administered on 10/01/16 09:09; Admin Dose 200 MLS/HR; Start 09/30/16 at 11:00 Linezolid (Zyvox) 600 mg BID PO Last administered on 10/01/16 20:11; Admin Dose 600 MG; Start 09/30/16 at 11:30 SCOTT RODRIGUES MD Oct 01, 2016 22:18
--- NOTE | 2016-10-01 23:09 | PN ---
Date/Time of Note Date/Time of Note DATE: 10/01/16 TIME: 23:08 Assessment/Plan Lines/Catheters Cee in Place (from [facility]): Yes Assessment/Plan Chief Complaint/Hosp Course 1. Shock (septic (UTI, pneumonia) plus or minus hypovolemic). Improved -Judicious fluid management -Supportive measures -Antibiotics 2. Multiple decubitus ulcerations with necrotic tissue and deep tissue injury -Offload -Local care -Vitamin C -Eventual nutritional optimization -Debridement when medically cleared 3. Contracted state with functional quadriplegia -Offloading -Nutritional optimization when possible 4. Anemia -Monitor 5. Ventilator dependent respiratory failure -Ventilator management and pulmonary toilet 6. Renal insufficiency -Judicious fluid management -Avoid nephrotoxic agents 7. Coronary artery disease and history of non-ST elevation DC -Cardiac optimization Thank you Problems: Subjective 24 Hr Interval Summary Transferred out of ICU > Tele. Leukocytosis resolved but having fevers. No chills. No cough. No seizure. No rash. No vomiting. No blood per mouth or rectum. No bloating. No seizures. Exam/Review of Systems Vital Signs Vitals Vital Signs Date Time Temp Pulse Resp B/P Pulse Ox O2 Delivery O2 Flow Rate FiO2 10/01/16 21:05 100 10/01/16 20:00 101.0 16 108/54 94 10/01/16 20:00 30 10/01/16 20:00 Mechanical Ventilator Intake and Output 09/30/16 09/30/16 10/01/16 15:00 23:00 07:00 Intake Total 980 ml 880 ml 980 ml Output Total 550 ml 585 ml 1065 ml Balance 430 ml 295 ml -85 ml Results Result Diagram: 10/01/16 0400 10/01/16 0400 EVA GUARDADO MD Oct 01, 2016 23:08
[2016-10-01] MEDS ORDERED: ACETAMINOPHEN 325 MG TAB PO PRN (23:30)
[2016-10-02] VITALS (29 sets, daily range): BP systolic 102–133; BP diastolic 46–93; PULSE 81–106; RESP 16–24
[2016-10-02] MEDS: D5W + KCL 20 MEQ 1,000 ML IV SCH (00:31)
[2016-10-02] MEDS: IPRATROPIUM (HFA) 12.9 GM INHALER INH SCH ×4 (01:16→19:47)
[2016-10-02] MEDS: ALBUTEROL HFA 8 GM INHALER INH SCH ×4 (01:16→19:48)
[2016-10-02] MEDS: LEVOTHYROXINE 25 MCG TAB GTB SCH (05:20)
[2016-10-02] MEDS: PANTOPRAZOLE 40 MG INJ IV SCH ×2 (05:20→18:19)
[2016-10-02] MEDS: VANCOMYCIN HCL 250 MG/5ML POSYG PO SCH ×4 (05:20→18:21)
[2016-10-02] MEDS: INSULIN ASPART [NOVOLOG] 3 ML PEN SC SCH ×4 (05:23→18:00)
[2016-10-02 06:48] LABS: ADD SCAN DIFF NO
[2016-10-02 06:58] LABS: BASOPHILS % 0.3 % (0.0-2.0); EOSINOPHILS # 0.2 10^3/ul (0.0-0.5); EOSINOPHILS % 1.3 % (0.0-7.0); HEMATOCRIT 29.8 % (42.0-52.0); HEMOGLOBIN 8.7 g/dl (14.0-18.0); LYMPHOCYTES # 1.9 10^3/ul (0.8-2.9); LYMPHOCYTES % 14.4 % (15.0-51.0); MEAN CORPUSCULAR HEMOGLOBIN 24.5 pg (29.0-33.0); MEAN CORPUSCULAR HGB CONC 29.2 g/dl (32.0-37.0); MEAN CORPUSCULAR VOLUME 83.9 fl (82.0-101.0); MEAN PLATELET VOLUME 11.7 fl (7.4-10.4); MONOCYTE # 0.8 10^3/ul (0.3-0.9); MONOCYTES % 6.3 % (0.0-11.0); NEUTROPHIL # 10.2 10^3/ul (1.6-7.5); PLATELET COUNT 504 10^3/UL (140-415); RED BLOOD COUNT 3.55 10^6/ul (4.70-6.10); RED CELL DISTRIBUTION WIDTH 19.6 % (11.5-14.5); WHITE BLOOD COUNT 13.3 10^3/ul (4.8-10.8)
[2016-10-02 07:07] LABS: POTASSIUM 4.3 mmol/L (3.5-5.1)
[2016-10-02 07:10] LABS: CREATININE 1.1 mg/dl (0.61-1.24)
[2016-10-02 07:11] LABS: CALCIUM 7.6 mg/dl (8.4-10.2)
[2016-10-02] MEDS: MULTIVITAMINS THERAPEUTIC TAB GTB SCH (09:47)
[2016-10-02] MEDS: FINASTERIDE 5 MG TAB GTB SCH (09:47)
[2016-10-02] MEDS: ACETAMINOPHEN 650MG/20.3ML CUP GTB PRN ×2 (09:47→22:59)
[2016-10-02] MEDS: ZINC SULFATE 220 MG CAP NGT SCH (09:48)
[2016-10-02] MEDS: ZYVOX 600 MG TAB PO SCH ×2 (09:48→23:26)
[2016-10-02] MEDS: SODIUM HYPOCHLORITE 0.125% 473 ML BTL IRR SCH ×2 (09:48→21:42)
[2016-10-02] MEDS: LACTOBACILLUS CHEW TAB PO SCH ×3 (09:48→20:53)
[2016-10-02] MEDS: MUPIROCIN 2% 22 GM OINT TOP SCH ×2 (09:48→20:53)
[2016-10-02] MEDS: COLLAGENASE 30 GM TUBE TOP SCH (09:48)
[2016-10-02] MEDS: ARTIFICIAL TEARS 15 ML OPH BOTH EYES SCH ×3 (09:49→20:53)
[2016-10-02] MEDS: HEPARIN 5,000 UNIT/0.5 ML VIAL SC SCH ×2 (10:01→20:59)
[2016-10-02] MEDS: COLISTIMETHATE 75 MG in SOD CHLORIDE 0.9% 100 ML IVPB SCH (10:21)
--- NOTE | 2016-10-02 11:12 | CONS ---
Date/Time of Note Date/Time of Note DATE: 10/02/16 TIME: 11:10 Assessment/Plan Assessment/Plan Additional Assessment/Plan 1. Acute kidney injury versus acute kidney injury on chronic kidney disease. This is likely secondary to severe prerenal azotemia causing ischemic acute tubular necrosis. 2. Severe hyponatremia with a sodium of 165 due to the large volume of free water deficit, likely deficits up to 8-9 liters. 3. Contraction metabolic alkalosis with a bicarbonate of 40.- improved 4. Septic shock with lactic acid of 8.7 secondary to urinary tract infection and pneumonia. on 3 pressors 5. History of chronic respiratory failure, status post tracheostomy, on ventilator. 6. History of G-tube. 7. Poor mental status due to the previous cerebrovascular accident. 8. History of dementia. 9. History of hypertension. PLAN: BUN slightly improved, Cr normal ,Na normal, d/c D5 W good urine output will follow up Consultation Date/Type/Reason Admit Date/Time Sep 24, 2016 at 03:19 Initial Consult Date 09/24/16 Type of Consultation: NEPHROLOGY Referring Provider: ROULA DEL TORO 24 HR Interval Summary Free Text/Dictation pt transferred to telemetry floor, Na normal, BUN 72, stable, no acute events Exam/Review of Systems Vital Signs Vitals Vital Signs Date Time Temp Pulse Resp B/P Pulse Ox O2 Delivery O2 Flow Rate FiO2 10/02/16 10:00 98.6 98 23 114/53 100 Mechanical Ventilator 10/02/16 09:16 30 Intake and Output 10/01/16 10/01/16 10/02/16 15:00 23:00 07:00 Intake Total 105 ml 750 ml 950 ml Output Total 335 ml 1310 ml 800 ml Balance -230 ml -560 ml 150 ml Exam GENERAL: noacute distress HEENT: Unremarkable NECK: Trach -> Secure to Vent CHEST: Equal chest rise bilaterally, without dyspnea on observation HEART: S1 S2 RRR no murmur ABDOMEN: Soft/peg EXTREMITIES: Warm SKIN: See hard chart skin assessment Results Result Diagram: 10/02/16 0620 10/02/16 0620 Results 24 hrs Laboratory Tests Test 10/01/16 12:54 10/01/16 23:33 10/02/16 05:22 10/02/16 06:20 Bedside Glucose 101 97 91 White Blood Count 13.3 #H Red Blood Count 3.55 L Hemoglobin 8.7 L Hematocrit 29.8 L Mean Corpuscular Volume 83.9 Mean Corpuscular Hemoglobin 24.5 L Mean Corpuscular Hemoglobin Concent 29.2 L Red Cell Distribution Width 19.6 H Platelet Count 504 H Mean Platelet Volume 11.7 H Neutrophils % 77.0 Lymphocytes % 14.4 L Monocytes % 6.3 Eosinophils % 1.3 Basophils % 0.3 Nucleated Red Blood Cells % 0.0 Neutrophils # 10.2 H Lymphocytes # 1.9 Monocytes # 0.8 Eosinophils # 0.2 Basophils # 0.0 Nucleated Red Blood Cells # 0.0 Sodium Level 143 Potassium Level 4.3 Chloride Level 113 H Carbon Dioxide Level 23 Anion Gap 11 Blood Urea Nitrogen 72 H Creatinine 1.10 Glucose Level 89 Calcium Level 7.6 L Medications Medications Current Medications Acetaminophen (Tylenol Supp) 650 mg Q4H PRN IN PAIN LEVEL 1-3 OR FEVER; Start 09/24/16 at 03:00 Eye Lubricant (Artificial Tears Oph) 1 drop TID BOTH EYES Last administered on 10/02/16 09:49; Admin Dose 1 DROP; Start 09/24/16 at 09:00 Sodium Hypochlorite (Dakin'S (1/4 Strength)) 1 applic BID IRR Last administered on 10/02/16 09:48; Admin Dose 1 APPLIC; Start 09/24/16 at 21:00 Pantoprazole (Protonix Iv) 40 mg BID@06,18 IV Last administered on 10/02/16 05 :20; Admin Dose 40 MG; Start 09/24/16 at 18:00 Collagenase (Santyl) 1 applic DAILY TOP Last administered on 10/02/16 09:48; Admin Dose 1 APPLIC; Start 09/24/16 at 20:30 Miscellaneous Information 1 ea NOTE XX ; Start 09/24/16 at 21:00 Glucose (Glutose) 15 gm Q15M PRN PO DECREASED GLUCOSE; Start 09/24/16 at 21:00 Glucose (Glutose) 22.5 gm Q15M PRN PO DECREASED GLUCOSE; Start 09/24/16 at 21: 00 Dextrose (D50w Syringe) 25 ml Q15M PRN IV DECREASED GLUCOSE; Start 09/24/16 at 21:00 Dextrose (D50w Syringe) 50 ml Q15M PRN IV DECREASED GLUCOSE; Start 09/24/16 at 21:00 Glucagon (Glucagen) 1 mg Q15M PRN IM DECREASED GLUCOSE; Start 09/24/16 at 21:00 Glucose 15 gm 15 gm Q15M PRN BUCCAL DECREASED GLUCOSE; Start 09/24/16 at 21:00 Acetaminophen (Ofirmev 1000mg/ 100ml Iv) 100 ml @ 400 mls/hr Q6H PRN IVPB FEVER Last administered on 09/29/16 20:27; Admin Dose 400 MLS/HR; Start at 22:00 Mupirocin (Bactroban) 1 applic BID TOP Last administered on 10/02/16 09:48; Admin Dose 1 APPLIC; Start 09/25/16 at 21:00 Vancomycin HCl (Vancomycin Oral Syringe) 250 mg Q6 PO Last administered on 10/02 05:20; Admin Dose 250 MG; Start 09/26/16 at 18:00 Lactobacillus Acidoph/ Bulgaricus 1 tab 1 tab TID PO Last administered on 09:48; Admin Dose 1 TAB; Start 09/26/16 at 21:00 Potassium Chloride/Dextrose (D5W + KCl 20 Meq) 1,000 ml @ 40 mls/hr Q24H IV Last administered on 10/02/16 00:31; Admin Dose 40 MLS/HR; Start 09/27/16 at 10 :00 Atorvastatin Calcium (Lipitor) 20 mg QHS GTB Last administered on 10/01/16 20: 10; Admin Dose 20 MG; Start 09/28/16 at 21:00 Finasteride (Proscar) 5 mg DAILY GTB Last administered on 10/02/16 09:47; Admin Dose 5 MG; Start 09/29/16 at 09:00 Levothyroxine Sodium (Synthroid) 25 mcg DAILY@06 GTB Last administered on 05:20; Admin Dose 25 MCG; Start 09/29/16 at 06:00 Multivitamins Therapeutic (Theragran) 1 tab DAILY GTB Last administered on 10/02 09:47; Admin Dose 1 TAB; Start 09/29/16 at 09:00 Zinc Sulfate (Zinc Sulfate) 220 mg DAILY NGT Last administered on 10/02/16 09: 48; Admin Dose 220 MG; Start 09/29/16 at 09:00 Insulin Aspart (Novolog Insulin Pen) NOVOLOG *MILD* ALGORI... Q6 SC ; Start at 18:00 Ondansetron HCl (Zofran Inj) 4 mg Q6H PRN IV NAUSEA AND/OR VOMITING; Start at 07:30 Heparin Sodium (Porcine) 5000 unit 5,000 unit BID SC Last administered on 10:01; Admin Dose 5,000 UNIT; Start 09/29/16 at 09:00 Colistimethate Sodium/Sodium Chloride (Coly-Mycin/NS) 100 ml @ 200 mls/hr DAILY IVPB Last administered on 10/02/16 10:21; Admin Dose 200 MLS/HR; Start 09/30/16 at 11:00; Stop 10/02/16 at 23:45 Linezolid (Zyvox) 600 mg BID PO Last administered on 10/02/16 09:48; Admin Dose 600 MG; Start 09/30/16 at 11:30 Influenza Virus Vaccine (Fluzone) 0.5 ml ONCE ONCE IM* ; Start 10/03/16 at 09:00 ; Stop 10/03/16 at 09:01 Acetaminophen 650 mg 650 mg Q6H PRN GTB PAIN AND OR ELEVATED TEMP Last administered on 10/02/16 09:47; Admin Dose 650 MG; Start 10/02/16 at 08:00 Colistimethate Sodium/Sodium Chloride (Coly-Mycin/NS) 100 ml @ 200 mls/hr Q24H IVPB ; Start 10/03/16 at 10:00 MAGGIE DINERO MD Oct 02, 2016 11:12
--- NOTE | 2016-10-02 11:37 | CONS ---
Date/Time of Note Date/Time of Note DATE: 10/02/16 TIME: 11:35 Assessment/Plan Assessment/Plan Additional Assessment/Plan Ventilator settings are AC of 16, tidal volume 500, PEEP of 5, 30% FiO2. Assessment recommendations; 1. Patient with a history of chronic respiratory failure, ventilator dependent admitted for pneumonia and sepsis with significant clinical improvement. 2. Advanced dementia. The current treatment. Patient awaiting transfer to skilled nursing. Overall prognosis remains poor. Consultation Date/Type/Reason Admit Date/Time Sep 24, 2016 at 03:19 Initial Consult Date 09/24/16 Type of Consultation: Pulmonary Referring Provider: ROULA DEL TORO 24 HR Interval Summary Free Text/Dictation Patient condition stable. Had been transferred out of ICU to telemetry unit. Remains essentially unresponsive. Has remained hemodynamically stable. General exam; elderly male, on ventilator via tracheostomy currently in no distress. Patient noncommunicative and unresponsive. Exam/Review of Systems Vital Signs Vitals Vital Signs Date Time Temp Pulse Resp B/P Pulse Ox O2 Delivery O2 Flow Rate FiO2 10/02/16 11:22 98.6 94 19 103/46 96 10/02/16 11:18 30 10/02/16 10:00 Mechanical Ventilator Intake and Output 10/01/16 10/01/16 10/02/16 15:00 23:00 07:00 Intake Total 105 ml 750 ml 950 ml Output Total 335 ml 1310 ml 800 ml Balance -230 ml -560 ml 150 ml Exam HEENT exam is; supple neck, no JVD. No lymphadenopathy. Midline trachea. Tracheostomy in place. Insertion site is clean. No neck masses. No thyromegaly. Chest examination; diminished but clear breath sounds bilaterally. S1-S2 audible, no murmurs. Regular rhythm. Abdomen examination; soft, no organomegaly. G-tube in place. Bowel sounds audible. Nondistended. Extremity examination; no peripheral edema. Patient contractures involving all 4 extremities. 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 Results Result Diagram: 10/02/16 0620 10/02/16 0620 Results 24 hrs Laboratory Tests Test 10/01/16 12:54 10/01/16 23:33 10/02/16 05:22 10/02/16 06:20 Bedside Glucose 101 97 91 White Blood Count 13.3 #H Red Blood Count 3.55 L Hemoglobin 8.7 L Hematocrit 29.8 L Mean Corpuscular Volume 83.9 Mean Corpuscular Hemoglobin 24.5 L Mean Corpuscular Hemoglobin Concent 29.2 L Red Cell Distribution Width 19.6 H Platelet Count 504 H Mean Platelet Volume 11.7 H Neutrophils % 77.0 Lymphocytes % 14.4 L Monocytes % 6.3 Eosinophils % 1.3 Basophils % 0.3 Nucleated Red Blood Cells % 0.0 Neutrophils # 10.2 H Lymphocytes # 1.9 Monocytes # 0.8 Eosinophils # 0.2 Basophils # 0.0 Nucleated Red Blood Cells # 0.0 Sodium Level 143 Potassium Level 4.3 Chloride Level 113 H Carbon Dioxide Level 23 Anion Gap 11 Blood Urea Nitrogen 72 H Creatinine 1.10 Glucose Level 89 Calcium Level 7.6 L Medications Medications Current Medications Acetaminophen (Tylenol Supp) 650 mg Q4H PRN [place] PAIN LEVEL 1-3 OR FEVER; Start 09/24/16 at 03:00 Eye Lubricant (Artificial Tears Oph) 1 drop TID BOTH EYES Last administered on 10/02/16 09:49; Admin Dose 1 DROP; Start 09/24/16 at 09:00 Sodium Hypochlorite (Dakin'S (1/4 Strength)) 1 applic BID IRR Last administered on 10/02/16 09:48; Admin Dose 1 APPLIC; Start 09/24/16 at 21:00 Pantoprazole (Protonix Iv) 40 mg BID@06,18 IV Last administered on 10/02/16 05 :20; Admin Dose 40 MG; Start 09/24/16 at 18:00 Collagenase (Santyl) 1 applic DAILY TOP Last administered on 10/02/16 09:48; Admin Dose 1 APPLIC; Start 09/24/16 at 20:30 Miscellaneous Information 1 ea NOTE XX ; Start 09/24/16 at 21:00 Glucose (Glutose) 15 gm Q15M PRN PO DECREASED GLUCOSE; Start 09/24/16 at 21:00 Glucose (Glutose) 22.5 gm Q15M PRN PO DECREASED GLUCOSE; Start 09/24/16 at 21: 00 Dextrose (D50w Syringe) 25 ml Q15M PRN IV DECREASED GLUCOSE; Start 09/24/16 at 21:00 Dextrose (D50w Syringe) 50 ml Q15M PRN IV DECREASED GLUCOSE; Start 09/24/16 at 21:00 Glucagon (Glucagen) 1 mg Q15M PRN IM DECREASED GLUCOSE; Start 09/24/16 at 21:00 Glucose 15 gm 15 gm Q15M PRN BUCCAL DECREASED GLUCOSE; Start 09/24/16 at 21:00 Acetaminophen (Ofirmev 1000mg/ 100ml Iv) 100 ml @ 400 mls/hr Q6H PRN IVPB FEVER Last administered on 09/29/16 20:27; Admin Dose 400 MLS/HR; Start at 22:00 Mupirocin (Bactroban) 1 applic BID TOP Last administered on 10/02/16 09:48; Admin Dose 1 APPLIC; Start 09/25/16 at 21:00 Vancomycin HCl (Vancomycin Oral Syringe) 250 mg Q6 PO Last administered on 10/02 05:20; Admin Dose 250 MG; Start 09/26/16 at 18:00 Lactobacillus Acidoph/Bulgaricus (Floranex) 1 tab TID PO Last administered on 09:48; Admin Dose 1 TAB; Start 09/26/16 at 21:00 Atorvastatin Calcium (Lipitor) 20 mg QHS GTB Last administered on 10/01/16 20: 10; Admin Dose 20 MG; Start 09/28/16 at 21:00 Finasteride (Proscar) 5 mg DAILY GTB Last administered on 10/02/16 09:47; Admin Dose 5 MG; Start 09/29/16 at 09:00 Levothyroxine Sodium (Synthroid) 25 mcg DAILY@06 GTB Last administered on 05:20; Admin Dose 25 MCG; Start 09/29/16 at 06:00 Multivitamins Therapeutic (Theragran) 1 tab DAILY GTB Last administered on 10/02 09:47; Admin Dose 1 TAB; Start 09/29/16 at 09:00 Zinc Sulfate (Zinc Sulfate) 220 mg DAILY NGT Last administered on 10/02/16 09: 48; Admin Dose 220 MG; Start 09/29/16 at 09:00 Insulin Aspart (Novolog Insulin Pen) NOVOLOG *MILD* ALGORI... Q6 SC ; Start at 18:00 Ondansetron HCl (Zofran Inj) 4 mg Q6H PRN IV NAUSEA AND/OR VOMITING; Start at 07:30 Heparin Sodium (Porcine) 5000 unit 5,000 unit BID SC Last administered on 10:01; Admin Dose 5,000 UNIT; Start 09/29/16 at 09:00 Colistimethate Sodium/Sodium Chloride (Coly-Mycin/NS) 100 ml @ 200 mls/hr DAILY IVPB Last administered on 10/02/16 10:21; Admin Dose 200 MLS/HR; Start 09/30/16 at 11:00; Stop 10/02/16 at 23:45 Linezolid (Zyvox) 600 mg BID PO Last administered on 10/02/16 09:48; Admin Dose 600 MG; Start 09/30/16 at 11:30 Influenza Virus Vaccine (Fluzone) 0.5 ml ONCE ONCE IM* ; Start 10/03/16 at 09:00 ; Stop 10/03/16 at 09:01 Acetaminophen 650 mg 650 mg Q6H PRN GTB PAIN AND OR ELEVATED TEMP Last administered on 10/02/16 09:47; Admin Dose 650 MG; Start 10/02/16 at 08:00 Colistimethate Sodium/Sodium Chloride (Coly-Mycin/NS) 100 ml @ 200 mls/hr Q24H IVPB ; Start 10/03/16 at 10:00 MAIN SALTER Oct 02, 2016 11:37
--- NOTE | 2016-10-02 13:03 | PN ---
DATE: 10/02/2016 SUBJECTIVE: No acute changes overnight. The patient is lying comfortably in bed. He spiked a feve r last night of 101, currently 101. LABORATORY DATA: WBC today went up to 13.3, H and H 8.7 and 29.8, platelets 544, neutrophils 77. B UN 72, creatinine 1.10. MICROBIOLOGY: Blood culture on admission grew E. coli and also the new report from today shows posi tivity for Bacteroides fragilis. Wound culture growing E. coli, Proteus, Strep pneumoniae, MRSA, VR E, Acinetobacter baumannii, Klebsiella pneumoniae. INDWELLINGS: Trach, PEG, Cee, rectal tube. ANTIMICROBIALS: 1. Colistin. 2. Zyvox. 3. Oral vancomycin. 4. Topical Bactroban to nares. PHYSICAL EXAMINATION: GENERAL: This is a chronically ill-appearing, wasted, fragile, elderly man who is lying comfortably in bed. HEENT: Head atraumatic, normocephalic. Sclerae anicteric. Buccal mucosa dry. NECK: Supple. Tracheostomy present. CHEST: Rise symmetrical. Breath sounds diminished to bases. HEART: S1, S2. ABDOMEN: Soft, bowel sounds present. EXTREMITIES: With bilateral edema. SKIN: With multiple unstageable decubiti. ASSESSMENT: 1. Sepsis, status post shock. 2. Polymicrobial bacteremia on admission with culture grew Escherichia coli and Bacteroides fragili s, repeat blood cultures negative. 3. Escherichia coli urinary tract infection. 4. Multiple chronic wounds. 5. Methicillin-resistant Staphylococcus aureus nares colonization. 6. Diarrhea, history of Clostridium difficile and severe pseudomembranous colitis. 7. Chronic respiratory failure. 8. Dysphagia. 9. History of cerebrovascular accident. PLAN: The patient's antibiotics were changed to colistin and Zyvox. He is also on oral vancomycin. Cultures from admission today came back positive for Bacteroides fragilis. We are going to add Fl agyl to the regimen for coverage. Continue other antibiotics. Continue local wound care as per [facility]. P[facility] to [facility] facility. Dictated By: CHRISTOPHER MCDONOUGH CASHIER for YAQUELIN ESTRELLA MD NI/NTS Conf#: [id number] DID#: [id number]
[2016-10-02] MEDS: metroNIDAZOLE 500 MG/NS (PMX) 100 ML IVPB SCH ×2 (14:22→21:58)
--- NOTE | 2016-10-02 15:09 | PN ---
Date/Time of Note Date/Time of Note DATE: 10/02/16 TIME: 15:02 Assessment/Plan VTE Prophylaxis VTE Prophylaxis Intervention: SCD's Assessment/Plan Chief Complaint/Hosp Course 1. Severe sepsis with septic shock 2/2 Decub ulcers and/or UTI and/or PNA: stable, off pressor support 2. Severe hypernatremia 2/2 dehydration: improving 3. Acute renal failure 2/2 ATN from dehydration: improving 4. Ecoli bacteremia and UTI : 5. Multifocal pneumonia (E coli / A baumanii) 6. 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 Hypochromic microcytic Iron deficiency anemia likely 2/2 chronic Bleed 8. Hypokalemia: resolved 9. Probable GI bleed (Coffee ground drainage from G tube) 10. Severe multiple pressure ulcers infected with multiple organisms including MRSA 11. Hx of severe C-diff/ pseudomembranous colitis 12. Hypothyroidism with good control: Levothyroxine 13. Chronic Dysphagia 2/2 encephalopathy 14. Chronic resp failure ventilator dependent Via tracheostomy PLAN: * Abx changed to Colistin and Zyvox, Flagyl also added, cont Vanco PO * Monitor fever curve/ f/u repeat blood cultures / Change snider / if fever persists, d/w surgery re: possible debridement * Complete 5 days of Iv iron supplementation and the switch to oral * Pt had fevers last night and WBC is elevated today, not stable for DG today * IVF managed per Nephro and patient has been restarted on tube feeds till family gives consent for EGD * With degree of sores, Patient may require more aggressive intervention (? diverting colostomy) however will defer to surgery. Patient however is an extremely poor candidate and with comorbidities and baseline encephalopathy is more appropriate for hospice care instead / Palliative care consulted. PROPHYLAXIS: Start low dose heparin and monitor for bleeding / SCDS / Protonix Problems: Subjective 24 Hr Interval Summary Subjective hx not possible: pt non-verbal Exam/Review of Systems Vital Signs Vitals Vital Signs Date Time Temp Pulse Resp B/P Pulse Ox O2 Delivery O2 Flow Rate FiO2 10/02/16 13:17 88 17 99 30 10/02/16 11:22 98.6 103/46 10/02/16 10:00 Mechanical Ventilator Intake and Output 10/01/16 10/01/16 10/02/16 15:00 23:00 07:00 Intake Total 105 ml 750 ml 950 ml Output Total 335 ml 1310 ml 800 ml Balance -230 ml -560 ml 150 ml Exam Constitutional: non-verbal Respiratory: clear to auscultation Cardiovascular: regular rate and rhythm Gastrointestinal: soft, No distended Musculoskeletal: nl extremities to inspection Results Result Diagram: 10/02/16 0620 10/02/16 0620 Results 24 hrs Laboratory Tests Test 10/01/16 23:33 10/02/16 05:22 10/02/16 06:20 10/02/16 12:22 Bedside Glucose 97 91 108 White Blood Count 13.3 #H Red Blood Count 3.55 L Hemoglobin 8.7 L Hematocrit 29.8 L Mean Corpuscular Volume 83.9 Mean Corpuscular Hemoglobin 24.5 L Mean Corpuscular Hemoglobin Concent 29.2 L Red Cell Distribution Width 19.6 H Platelet Count 504 H Mean Platelet Volume 11.7 H Neutrophils % 77.0 Lymphocytes % 14.4 L Monocytes % 6.3 Eosinophils % 1.3 Basophils % 0.3 Nucleated Red Blood Cells % 0.0 Neutrophils # 10.2 H Lymphocytes # 1.9 Monocytes # 0.8 Eosinophils # 0.2 Basophils # 0.0 Nucleated Red Blood Cells # 0.0 Sodium Level 143 Potassium Level 4.3 Chloride Level 113 H Carbon Dioxide Level 23 Anion Gap 11 Blood Urea Nitrogen 72 H Creatinine 1.10 Glucose Level 89 Calcium Level 7.6 L Medications Medications Current Medications Acetaminophen (Tylenol Supp) 650 mg Q4H PRN [place] PAIN LEVEL 1-3 OR FEVER; Start 09/24/16 at 03:00 Eye Lubricant (Artificial Tears Oph) 1 drop TID BOTH EYES Last administered on 10/02/16 12:21; Admin Dose 1 DROP; Start 09/24/16 at 09:00 Sodium Hypochlorite (Dakin'S (1/4 Strength)) 1 applic BID IRR Last administered on 10/02/16 09:48; Admin Dose 1 APPLIC; Start 09/24/16 at 21:00 Pantoprazole (Protonix Iv) 40 mg BID@06,18 IV Last administered on 10/02/16 05 :20; Admin Dose 40 MG; Start 09/24/16 at 18:00 Collagenase (Santyl) 1 applic DAILY TOP Last administered on 10/02/16 09:48; Admin Dose 1 APPLIC; Start 09/24/16 at 20:30 Miscellaneous Information 1 ea NOTE XX ; Start 09/24/16 at 21:00 Glucose (Glutose) 15 gm Q15M PRN PO DECREASED GLUCOSE; Start 09/24/16 at 21:00 Glucose (Glutose) 22.5 gm Q15M PRN PO DECREASED GLUCOSE; Start 09/24/16 at 21: 00 Dextrose (D50w Syringe) 25 ml Q15M PRN IV DECREASED GLUCOSE; Start 09/24/16 at 21:00 Dextrose (D50w Syringe) 50 ml Q15M PRN IV DECREASED GLUCOSE; Start 09/24/16 at 21:00 Glucagon (Glucagen) 1 mg Q15M PRN IM DECREASED GLUCOSE; Start 09/24/16 at 21:00 Glucose 15 gm 15 gm Q15M PRN BUCCAL DECREASED GLUCOSE; Start 09/24/16 at 21:00 Acetaminophen (Ofirmev 1000mg/ 100ml Iv) 100 ml @ 400 mls/hr Q6H PRN IVPB FEVER Last administered on 09/29/16 20:27; Admin Dose 400 MLS/HR; Start at 22:00 Mupirocin (Bactroban) 1 applic BID TOP Last administered on 10/02/16 09:48; Admin Dose 1 APPLIC; Start 09/25/16 at 21:00 Vancomycin HCl (Vancomycin Oral Syringe) 250 mg Q6 PO Last administered on 10/02 12:21; Admin Dose 250 MG; Start 09/26/16 at 18:00 Lactobacillus Acidoph/Bulgaricus (Floranex) 1 tab TID PO Last administered on 12:20; Admin Dose 1 TAB; Start 09/26/16 at 21:00 Atorvastatin Calcium (Lipitor) 20 mg QHS GTB Last administered on 10/01/16 20: 10; Admin Dose 20 MG; Start 09/28/16 at 21:00 Finasteride (Proscar) 5 mg DAILY GTB Last administered on 10/02/16 09:47; Admin Dose 5 MG; Start 09/29/16 at 09:00 Levothyroxine Sodium (Synthroid) 25 mcg DAILY@06 GTB Last administered on 05:20; Admin Dose 25 MCG; Start 09/29/16 at 06:00 Multivitamins Therapeutic (Theragran) 1 tab DAILY GTB Last administered on 10/02 09:47; Admin Dose 1 TAB; Start 09/29/16 at 09:00 Zinc Sulfate (Zinc Sulfate) 220 mg DAILY NGT Last administered on 10/02/16 09: 48; Admin Dose 220 MG; Start 09/29/16 at 09:00 Insulin Aspart (Novolog Insulin Pen) NOVOLOG *MILD* ALGORI... Q6 SC ; Start at 18:00 Ondansetron HCl (Zofran Inj) 4 mg Q6H PRN IV NAUSEA AND/OR VOMITING; Start at 07:30 Heparin Sodium (Porcine) 5000 unit 5,000 unit BID SC Last administered on 10:01; Admin Dose 5,000 UNIT; Start 09/29/16 at 09:00 Colistimethate Sodium/Sodium Chloride (Coly-Mycin/NS) 100 ml @ 200 mls/hr DAILY IVPB Last administered on 10/02/16 10:21; Admin Dose 200 MLS/HR; Start 09/30/16 at 11:00; Stop 10/02/16 at 23:45 Linezolid (Zyvox) 600 mg BID PO Last administered on 10/02/16 09:48; Admin Dose 600 MG; Start 09/30/16 at 11:30 Influenza Virus Vaccine (Fluzone) 0.5 ml ONCE ONCE IM* ; Start 10/03/16 at 09:00 ; Stop 10/03/16 at 09:01 Acetaminophen 650 mg 650 mg Q6H PRN GTB PAIN AND OR ELEVATED TEMP Last administered on 10/02/16 09:47; Admin Dose 650 MG; Start 10/02/16 at 08:00 Colistimethate Sodium 150 mg/ Sodium Chloride 100 ml @ 200 mls/hr Q24H IVPB ; Start 10/03/16 at 10:00 Metronidazole (Flagyl 500 Mg (Pmx)) 100 ml @ 100 mls/hr Q8 IVPB Last administered on 10/02/16 14:22; Admin Dose 100 MLS/HR; Start 10/02/16 at 14:00 KEVYN GARNETT Oct 02, 2016 15:09
--- NOTE | 2016-10-02 16:04 | CONS ---
Date/Time of Note Date/Time of Note DATE: 10/02/16 TIME: 16:03 Assessment/Plan Assessment/Plan Additional Assessment/Plan Severe septic shock Preserved ejection fraction Moderate aortic stenosis Respiratory failure Coronary artery disease Anemia Acute kidney injury, improving -Blood pressure trend remains stable. Fluid management as per our nephrology colleagues. Would continue to hold any antihypertensives at the current time given labile blood pressure. Antibiotics as per infectious disease. Consultation Date/Type/Reason Admit Date/Time Sep 24, 2016 at 03:19 Initial Consult Date 09/24/16 Type of Consultation: cv Referring Provider: ROULA DEL TORO 24 HR Interval Summary Free Text/Dictation Patient seen and examined Exam/Review of Systems Vital Signs Vitals Vital Signs Date Time Temp Pulse Resp B/P Pulse Ox O2 Delivery O2 Flow Rate FiO2 10/02/16 15:36 98.5 96 18 133/93 95 10/02/16 15:15 30 10/02/16 10:00 Mechanical Ventilator Intake and Output 10/01/16 10/01/16 10/02/16 15:00 23:00 07:00 Intake Total 105 ml 750 ml 950 ml Output Total 335 ml 1310 ml 800 ml Balance -230 ml -560 ml 150 ml Exam Awake, no apparent distress Head: normocephalic Neck: other (Tracheostomy) Respiratory: other (Coarse breath sounds bilaterally, no wheezing) Cardiovascular: other (S1-S2 heard), regular rate and rhythm Gastrointestinal: bowel sounds, non-tender, other (No guarding), soft Extremities: other (No edema or cyanosis) Results Result Diagram: 10/02/16 0620 10/02/16 0620 Results 24 hrs Laboratory Tests Test 10/01/16 23:33 10/02/16 05:22 10/02/16 06:20 10/02/16 12:22 Bedside Glucose 97 91 108 White Blood Count 13.3 #H Red Blood Count 3.55 L Hemoglobin 8.7 L Hematocrit 29.8 L Mean Corpuscular Volume 83.9 Mean Corpuscular Hemoglobin 24.5 L Mean Corpuscular Hemoglobin Concent 29.2 L Red Cell Distribution Width 19.6 H Platelet Count 504 H Mean Platelet Volume 11.7 H Neutrophils % 77.0 Lymphocytes % 14.4 L Monocytes % 6.3 Eosinophils % 1.3 Basophils % 0.3 Nucleated Red Blood Cells % 0.0 Neutrophils # 10.2 H Lymphocytes # 1.9 Monocytes # 0.8 Eosinophils # 0.2 Basophils # 0.0 Nucleated Red Blood Cells # 0.0 Sodium Level 143 Potassium Level 4.3 Chloride Level 113 H Carbon Dioxide Level 23 Anion Gap 11 Blood Urea Nitrogen 72 H Creatinine 1.10 Glucose Level 89 Calcium Level 7.6 L Medications Medications Current Medications Acetaminophen (Tylenol Supp) 650 mg Q4H PRN [place] PAIN LEVEL 1-3 OR FEVER; Start 09/24/16 at 03:00 Eye Lubricant (Artificial Tears Oph) 1 drop TID BOTH EYES Last administered on 10/02/16 12:21; Admin Dose 1 DROP; Start 09/24/16 at 09:00 Sodium Hypochlorite (Dakin'S (1/4 Strength)) 1 applic BID IRR Last administered on 10/02/16 09:48; Admin Dose 1 APPLIC; Start 09/24/16 at 21:00 Pantoprazole (Protonix Iv) 40 mg BID@06,18 IV Last administered on 10/02/16 05 :20; Admin Dose 40 MG; Start 09/24/16 at 18:00 Collagenase (Santyl) 1 applic DAILY TOP Last administered on 10/02/16 09:48; Admin Dose 1 APPLIC; Start 09/24/16 at 20:30 Miscellaneous Information 1 ea NOTE XX ; Start 09/24/16 at 21:00 Glucose (Glutose) 15 gm Q15M PRN PO DECREASED GLUCOSE; Start 09/24/16 at 21:00 Glucose (Glutose) 22.5 gm Q15M PRN PO DECREASED GLUCOSE; Start 09/24/16 at 21: 00 Dextrose (D50w Syringe) 25 ml Q15M PRN IV DECREASED GLUCOSE; Start 09/24/16 at 21:00 Dextrose (D50w Syringe) 50 ml Q15M PRN IV DECREASED GLUCOSE; Start 09/24/16 at 21:00 Glucagon (Glucagen) 1 mg Q15M PRN IM DECREASED GLUCOSE; Start 09/24/16 at 21:00 Glucose 15 gm 15 gm Q15M PRN BUCCAL DECREASED GLUCOSE; Start 09/24/16 at 21:00 Acetaminophen (Ofirmev 1000mg/ 100ml Iv) 100 ml @ 400 mls/hr Q6H PRN IVPB FEVER Last administered on 09/29/16 20:27; Admin Dose 400 MLS/HR; Start at 22:00 Mupirocin (Bactroban) 1 applic BID TOP Last administered on 10/02/16 09:48; Admin Dose 1 APPLIC; Start 09/25/16 at 21:00 Vancomycin HCl (Vancomycin Oral Syringe) 250 mg Q6 PO Last administered on 10/02 12:21; Admin Dose 250 MG; Start 09/26/16 at 18:00 Lactobacillus Acidoph/Bulgaricus (Floranex) 1 tab TID PO Last administered on 12:20; Admin Dose 1 TAB; Start 09/26/16 at 21:00 Atorvastatin Calcium (Lipitor) 20 mg QHS GTB Last administered on 10/01/16 20: 10; Admin Dose 20 MG; Start 09/28/16 at 21:00 Finasteride (Proscar) 5 mg DAILY GTB Last administered on 10/02/16 09:47; Admin Dose 5 MG; Start 09/29/16 at 09:00 Levothyroxine Sodium (Synthroid) 25 mcg DAILY@06 GTB Last administered on 05:20; Admin Dose 25 MCG; Start 09/29/16 at 06:00 Multivitamins Therapeutic (Theragran) 1 tab DAILY GTB Last administered on 10/02 09:47; Admin Dose 1 TAB; Start 09/29/16 at 09:00 Zinc Sulfate (Zinc Sulfate) 220 mg DAILY NGT Last administered on 10/02/16 09: 48; Admin Dose 220 MG; Start 09/29/16 at 09:00 Insulin Aspart (Novolog Insulin Pen) NOVOLOG *MILD* ALGORI... Q6 SC ; Start at 18:00 Ondansetron HCl (Zofran Inj) 4 mg Q6H PRN IV NAUSEA AND/OR VOMITING; Start at 07:30 Heparin Sodium (Porcine) 5000 unit 5,000 unit BID SC Last administered on 10:01; Admin Dose 5,000 UNIT; Start 09/29/16 at 09:00 Colistimethate Sodium/Sodium Chloride (Coly-Mycin/NS) 100 ml @ 200 mls/hr DAILY IVPB Last administered on 3/29/17at 10:21; Admin Dose 200 MLS/HR; Start 09/30/16 at 11:00; Stop 10/02/16 at 23:45 Linezolid (Zyvox) 600 mg BID PO Last administered on 10/02/16 09:48; Admin Dose 600 MG; Start 09/30/16 at 11:30 Influenza Virus Vaccine (Fluzone) 0.5 ml ONCE ONCE IM* ; Start 10/03/16 at 09:00 ; Stop 10/03/16 at 09:01 Acetaminophen 650 mg 650 mg Q6H PRN GTB PAIN AND OR ELEVATED TEMP Last administered on 10/02/16 09:47; Admin Dose 650 MG; Start 10/02/16 at 08:00 Colistimethate Sodium 150 mg/ Sodium Chloride 100 ml @ 200 mls/hr Q24H IVPB ; Start 10/03/16 at 10:00 Metronidazole (Flagyl 500 Mg (Pmx)) 100 ml @ 100 mls/hr Q8 IVPB Last administered on 10/02/16 14:22; Admin Dose 100 MLS/HR; Start 10/02/16 at 14:00 Ryder Wild DO Oct 02, 2016 16:04
[2016-10-02] MEDS: ATORVASTATIN 20 MG TAB GTB SCH (20:53)
--- NOTE | 2016-10-02 21:36 | PN ---
Date/Time of Note Date/Time of Note DATE: 10/02/16 TIME: 21:35 Assessment/Plan Assessment/Plan Chief Complaint/Hosp Course 1. Shock (septic (UTI, pneumonia) plus or minus hypovolemic). -Judicious fluid management -Supportive measures -Antibiotics 2. Multiple decubitus ulcerations with necrotic tissue and deep tissue injury -Offload -Local care -Vitamin C -Eventual nutritional optimization -Debridement when medically cleared 3. Contracted state with functional quadriplegia -Offloading -Nutritional optimization when possible 4. Anemia -Monitor 5. Ventilator dependent respiratory failure -Ventilator management and pulmonary toilet 6. Renal insufficiency -Judicious fluid management -Avoid nephrotoxic agents 7. Coronary artery disease and history of non-ST elevation [place] -Cardiac optimization Thank you Problems: Subjective 24 Hr Interval Summary Leukocytosis again with fevers. No chills. No cough. No seizure. No rash. No vomiting. No blood per mouth or rectum. No bloating. No seizures. Exam/Review of Systems Vital Signs Vitals Vital Signs Date Time Temp Pulse Resp B/P Pulse Ox O2 Delivery O2 Flow Rate FiO2 10/02/16 20:20 95 10/02/16 20:00 100.1 16 116/53 100 10/02/16 18:00 Mechanical Ventilator 10/02/16 17:22 30 Intake and Output 10/01/16 10/01/16 10/02/16 15:00 23:00 07:00 Intake Total 105 ml 750 ml 950 ml Output Total 335 ml 1310 ml 800 ml Balance -230 ml -560 ml 150 ml Exam Free Text/Dictation Constitutional: No alert, No oriented Psych: No nl mood/affect Head: atraumatic, normocephalic Eyes: nl conjunctiva, No EOMI, No icteric ENMT: mucosa pink and moist, nl external ears & nose Neck: jvd, other (Trach in place), No non-tender, No supple Respiratory: No congested cough, No labored breathing Cardiovascular: No regular rate and rhythm Gastrointestinal: non-tender, other (PEG in place), soft, No rebound or guarding Musculoskeletal: No joint tenderness, No nl extremities to inspection, No nl gait and stance Extremities: No calf tenderness, No cyanosis Neurological: No nl mental status, No nl speech, No nl strength Skin: rash or lesions (Multiple decubitus ulcerations with debris, necrotic tissue, deep tissue injury), No diaphoresis, No nl turgor Lymph: nontender Results Result Diagram: 10/02/16 0620 10/02/16 0620 EVA GUARDADO MD Oct 02, 2016 21:36
--- NOTE | 2016-10-02 22:18 | CONS ---
Date/Time of Note Date/Time of Note DATE: 10/02/16 TIME: 22:16 Assessment/Plan Assessment/Plan Chief Complaint/Hosp Course ANEMIA - NEAR- MICROCYTIC WITH INCREASED RDW DROP H/H DURING HOSPITALIZATION + ACD TRANSFUSE PRBC TO KEEP HB MORE THAN 8 TRANSFUSE NEEDED GI F-UP Stool OB, negative Monitor H&H every 8 hours, transfuse 2 units for hemoglobin less than 8 Continue PPI drips EGD PER [facility] LEUKOCYTOSIS- REACTIVE CONT ATB FOR SEPSIS THROMBOCYTOSIS REACTIVE SHOULD IMPROVE WITH RESOLUTION OF SEPSIS Severe sepsis with septic shock 2/2 #4 and 5 on aggressive pressor support Severe hypernatremic dehydration Acute renal failure 2/2 ATN from dehydration UTI Multifocal pneumonia Encephalopathy ?acute versus acute on chronic (baseline unknown) Hypokalemia Problems: Consultation Date/Type/Reason Admit Date/Time Sep 24, 2016 at 03:19 Initial Consult Date 09/24/16 Type of Consultation: hemeon Referring Provider: ROULA DEL TORO 24 HR Interval Summary Free Text/Dictation * course reviewed with nurse * patient seen and examine * no hematemesis nor melena * latest hemoglobin 8.7 Exam/Review of Systems Vital Signs Vitals Vital Signs Date Time Temp Pulse Resp B/P Pulse Ox O2 Delivery O2 Flow Rate FiO2 10/02/16 20:20 95 10/02/16 20:00 100.1 16 116/53 100 10/02/16 18:00 Mechanical Ventilator 10/02/16 17:22 30 Intake and Output 10/01/16 10/01/16 10/02/16 15:00 23:00 07:00 Intake Total 105 ml 750 ml 950 ml Output Total 335 ml 1310 ml 800 ml Balance -230 ml -560 ml 150 ml Exam Constitutional: Awake Integumentary Multiple decubitus ulcers Respiratory: Tracheostomy on vent Cardiovascular: regular rate and rhythm Gastrointestinal: soft, non-tender,gtube in placed,rectal tube draining Musculoskeletal: Contractures bilateral Results Result Diagram: 10/02/16 0620 10/02/16 0620 Results 24 hrs Laboratory Tests Test 10/01/16 23:33 10/02/16 05:22 10/02/16 06:20 10/02/16 12:22 Bedside Glucose 97 91 108 White Blood Count 13.3 #H Red Blood Count 3.55 L Hemoglobin 8.7 L Hematocrit 29.8 L Mean Corpuscular Volume 83.9 Mean Corpuscular Hemoglobin 24.5 L Mean Corpuscular Hemoglobin Concent 29.2 L Red Cell Distribution Width 19.6 H Platelet Count 504 H Mean Platelet Volume 11.7 H Neutrophils % 77.0 Lymphocytes % 14.4 L Monocytes % 6.3 Eosinophils % 1.3 Basophils % 0.3 Nucleated Red Blood Cells % 0.0 Neutrophils # 10.2 H Lymphocytes # 1.9 Monocytes # 0.8 Eosinophils # 0.2 Basophils # 0.0 Nucleated Red Blood Cells # 0.0 Sodium Level 143 Potassium Level 4.3 Chloride Level 113 H Carbon Dioxide Level 23 Anion Gap 11 Blood Urea Nitrogen 72 H Creatinine 1.10 Glucose Level 89 Calcium Level 7.6 L Test 10/02/16 18:24 Bedside Glucose 83 Medications Medications Current Medications Acetaminophen (Tylenol Supp) 650 mg Q4H PRN [place] PAIN LEVEL 1-3 OR FEVER; Start 09/24/16 at 03:00 Eye Lubricant (Artificial Tears Oph) 1 drop TID BOTH EYES Last administered on 10/02/16 20:53; Admin Dose 1 DROP; Start 09/24/16 at 09:00 Sodium Hypochlorite (Dakin'S (1/4 Strength)) 1 applic BID IRR Last administered on 10/02/16 21:42; Admin Dose 1 APPLIC; Start 09/24/16 at 21:00 Pantoprazole (Protonix Iv) 40 mg BID@06,18 IV Last administered on 10/02/16 18 :19; Admin Dose 40 MG; Start 09/24/16 at 18:00 Collagenase (Santyl) 1 applic DAILY TOP Last administered on 10/02/16 09:48; Admin Dose 1 APPLIC; Start 09/24/16 at 20:30 Miscellaneous Information 1 ea NOTE XX ; Start 09/24/16 at 21:00 Glucose (Glutose) 15 gm Q15M PRN PO DECREASED GLUCOSE; Start 09/24/16 at 21:00 Glucose (Glutose) 22.5 gm Q15M PRN PO DECREASED GLUCOSE; Start 09/24/16 at 21: 00 Dextrose (D50w Syringe) 25 ml Q15M PRN IV DECREASED GLUCOSE; Start 09/24/16 at 21:00 Dextrose (D50w Syringe) 50 ml Q15M PRN IV DECREASED GLUCOSE; Start 09/24/16 at 21:00 Glucagon (Glucagen) 1 mg Q15M PRN IM DECREASED GLUCOSE; Start 09/24/16 at 21:00 Glucose 15 gm 15 gm Q15M PRN BUCCAL DECREASED GLUCOSE; Start 09/24/16 at 21:00 Acetaminophen (Ofirmev 1000mg/ 100ml Iv) 100 ml @ 400 mls/hr Q6H PRN IVPB FEVER Last administered on 09/29/16 20:27; Admin Dose 400 MLS/HR; Start at 22:00 Mupirocin (Bactroban) 1 applic BID TOP Last administered on 10/02/16 20:53; Admin Dose 1 APPLIC; Start 09/25/16 at 21:00 Vancomycin HCl (Vancomycin Oral Syringe) 250 mg Q6 PO Last administered on 10/02 18:21; Admin Dose 250 MG; Start 09/26/16 at 18:00 Lactobacillus Acidoph/Bulgaricus (Floranex) 1 tab TID PO Last administered on 20:53; Admin Dose 1 TAB; Start 09/26/16 at 21:00 Atorvastatin Calcium (Lipitor) 20 mg QHS GTB Last administered on 10/02/16 20: 53; Admin Dose 20 MG; Start 09/28/16 at 21:00 Finasteride (Proscar) 5 mg DAILY GTB Last administered on 10/02/16 09:47; Admin Dose 5 MG; Start 09/29/16 at 09:00 Levothyroxine Sodium (Synthroid) 25 mcg DAILY@06 GTB Last administered on 05:20; Admin Dose 25 MCG; Start 09/29/16 at 06:00 Multivitamins Therapeutic (Theragran) 1 tab DAILY GTB Last administered on 10/02 09:47; Admin Dose 1 TAB; Start 09/29/16 at 09:00 Zinc Sulfate (Zinc Sulfate) 220 mg DAILY NGT Last administered on 10/02/16 09: 48; Admin Dose 220 MG; Start 09/29/16 at 09:00 Insulin Aspart (Novolog Insulin Pen) NOVOLOG *MILD* ALGORI... Q6 SC ; Start at 18:00 Ondansetron HCl (Zofran Inj) 4 mg Q6H PRN IV NAUSEA AND/OR VOMITING; Start at 07:30 Heparin Sodium (Porcine) 5000 unit 5,000 unit BID SC Last administered on 20:59; Admin Dose 5,000 UNIT; Start 09/29/16 at 09:00 Colistimethate Sodium/Sodium Chloride (Coly-Mycin/NS) 100 ml @ 200 mls/hr DAILY IVPB Last administered on 10/02/16 10:21; Admin Dose 200 MLS/HR; Start 09/30/16 at 11:00; Stop 10/02/16 at 23:45 Linezolid (Zyvox) 600 mg BID PO Last administered on 10/02/16 09:48; Admin Dose 600 MG; Start 09/30/16 at 11:30 Influenza Virus Vaccine (Fluzone) 0.5 ml ONCE ONCE IM* ; Start 10/03/16 at 09:00 ; Stop 10/03/16 at 09:01 Acetaminophen 650 mg 650 mg Q6H PRN GTB PAIN AND OR ELEVATED TEMP Last administered on 10/02/16 09:47; Admin Dose 650 MG; Start 10/02/16 at 08:00 Colistimethate Sodium 150 mg/ Sodium Chloride 100 ml @ 200 mls/hr Q24H IVPB ; Start 10/03/16 at 10:00 Metronidazole (Flagyl 500 Mg (Pmx)) 100 ml @ 100 mls/hr Q8 IVPB Last administered on 10/02/16 21:58; Admin Dose 100 MLS/HR; Start 10/02/16 at 14:00 SCOTT RODRIGUES MD Oct 02, 2016 22:18
[2016-10-03] VITALS (29 sets, daily range): BP systolic 104–132; BP diastolic 47–95; PULSE 95–114; RESP 16–27
[2016-10-03] MEDS: VANCOMYCIN HCL 250 MG/5ML POSYG PO SCH ×4 (00:38→18:21)
[2016-10-03] MEDS: ALBUTEROL HFA 8 GM INHALER INH SCH ×4 (01:11→19:18)
[2016-10-03] MEDS: IPRATROPIUM (HFA) 12.9 GM INHALER INH SCH ×4 (01:11→19:18)
[2016-10-03] MEDS: PANTOPRAZOLE 40 MG INJ IV SCH ×2 (05:15→18:21)
[2016-10-03] MEDS: LEVOTHYROXINE 25 MCG TAB GTB SCH (05:15)
[2016-10-03] MEDS: metroNIDAZOLE 500 MG/NS (PMX) 100 ML IVPB SCH ×3 (05:15→21:22)
[2016-10-03] MEDS: INSULIN ASPART [NOVOLOG] 3 ML PEN SC SCH ×4 (06:00→18:00)
[2016-10-03 06:34] LABS: ADD SCAN DIFF NO
[2016-10-03 06:38] LABS: ABNORMAL IP MESSAGE 1; BASOPHILS % 0.2 % (0.0-2.0); EOSINOPHILS # 0.2 10^3/ul (0.0-0.5); EOSINOPHILS % 1.7 % (0.0-7.0); HEMATOCRIT 29.7 % (42.0-52.0); HEMOGLOBIN 8.5 g/dl (14.0-18.0); LYMPHOCYTES # 2.1 10^3/ul (0.8-2.9); LYMPHOCYTES % 14.8 % (15.0-51.0); MEAN CORPUSCULAR HEMOGLOBIN 24.3 pg (29.0-33.0); MEAN CORPUSCULAR HGB CONC 28.6 g/dl (32.0-37.0); MEAN CORPUSCULAR VOLUME 84.9 fl (82.0-101.0); MEAN PLATELET VOLUME 11.7 fl (7.4-10.4); MONOCYTE # 0.9 10^3/ul (0.3-0.9); MONOCYTES % 6.4 % (0.0-11.0); NEUTROPHIL # 10.7 10^3/ul (1.6-7.5); NEUTROPHILS % 76.3 % (39.0-77.0); PLATELET COUNT 542 10^3/UL (140-415); RED CELL DISTRIBUTION WIDTH 20.1 % (11.5-14.5)
[2016-10-03 06:46] LABS: POTASSIUM 4.2 mmol/L (3.5-5.1)
[2016-10-03 06:49] LABS: CREATININE 1.2 mg/dl (0.61-1.24)
[2016-10-03 06:50] LABS: CALCIUM 7.8 mg/dl (8.4-10.2)
[2016-10-03] MEDS: MULTIVITAMINS THERAPEUTIC TAB GTB SCH (08:54)
[2016-10-03] MEDS: ZINC SULFATE 220 MG CAP NGT SCH (08:54)
[2016-10-03] MEDS: ARTIFICIAL TEARS 15 ML OPH BOTH EYES SCH ×3 (08:55→21:22)
[2016-10-03] MEDS: FINASTERIDE 5 MG TAB GTB SCH (08:55)
[2016-10-03] MEDS: LACTOBACILLUS CHEW TAB PO SCH ×3 (08:55→21:21)
[2016-10-03] MEDS: ZYVOX 600 MG TAB PO SCH ×2 (08:55→21:21)
[2016-10-03] MEDS: SODIUM HYPOCHLORITE 0.125% 473 ML BTL IRR SCH ×2 (08:56→21:22)
[2016-10-03] MEDS ORDERED: INFLUENZA VIRUS VACCINE 0.5 ML SYG IM* ONE (09:00)
[2016-10-03] MEDS: HEPARIN 5,000 UNIT/0.5 ML VIAL SC SCH ×2 (09:00→21:42)
[2016-10-03] MEDS: MUPIROCIN 2% 22 GM OINT TOP SCH ×2 (09:03→21:22)
[2016-10-03] MEDS: COLLAGENASE 30 GM TUBE TOP SCH (09:03)
--- NOTE | 2016-10-03 09:45 | PN ---
DATE: 10/03/2016 PALLIATIVE CARE PROGRESS NOTE Mr. Wise has been transferred to Telemetry [facility], deteriorated overnight, now diagnosed with sever e sepsis. On broad-spectrum antibiotic coverage at this time. Fluid and electrolyte abnormalities, renal failure, multifocal pneumonia. 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 I will ask case management and social work service to at least talk to family members try and schedule a conference soon as possible. He is full code. Dictated By: SITA OCONNOR MD LP/NTS Conf#: [id number] DID#: [id number]
[2016-10-03] MEDS: COLISTIMETHATE 150 MG in SOD CHLORIDE 0.9% 100 ML IVPB SCH (09:51)
--- NOTE | 2016-10-03 11:02 | CONS ---
Date/Time of Note Date/Time of Note DATE: 10/03/16 TIME: 11:01 Consult Date/Type/Reason Admit Date/Time Sep 24, 2016 at 03:19 Initial Consult Date 09/24/16 Type of Consultation: pulmonary Ordering Provider: ROULA DEL TORO Subjective No significant changes continues mechanical ventilation Objective Vital Signs Date Time Temp Pulse Resp B/P Pulse Ox O2 Delivery O2 Flow Rate FiO2 10/03/16 09:15 101 22 100 30 10/03/16 07:40 97.9 110/68 10/03/16 06:00 Mechanical Ventilator Intake and Output 10/02/16 10/02/16 10/03/16 15:00 23:00 07:00 Intake Total 850 ml 750 ml Output Total 650 ml 800 ml Balance 200 ml -50 ml Exam PHYSICAL EXAMINATION GENERAL: Elderly gentleman, continues mechanical ventilation via tracheostomy VITAL SIGNS: see below. HEENT: Pupils equal, round, and reactive to light. Tracheostomy site clean and intact. CARDIAC: S1, S2, 2 systolic ejection murmur CHEST: Diminished air entry bilaterally. ABDOMEN: Mildly distended. Bowel sounds present EXTREMITIES: No cyanosis, clubbing edema +2 NEUROLOGIC: Unable to assess Results/Medications Result Diagram: 10/03/16 0610 10/03/16 0610 Results 24 hrs Laboratory Tests Test 10/02/16 12:22 10/02/16 18:24 10/03/16 00:38 10/03/16 05:14 Bedside Glucose 108 83 94 96 Test 10/03/16 06:10 10/03/16 07:41 White Blood Count 14.0 H Red Blood Count 3.50 L Hemoglobin 8.5 L Hematocrit 29.7 L Mean Corpuscular Volume 84.9 Mean Corpuscular Hemoglobin 24.3 L Mean Corpuscular Hemoglobin Concent 28.6 L Red Cell Distribution Width 20.1 H Platelet Count 542 H Mean Platelet Volume 11.7 H Neutrophils % 76.3 Lymphocytes % 14.8 L Monocytes % 6.4 Eosinophils % 1.7 Basophils % 0.2 Nucleated Red Blood Cells % 0.0 Neutrophils # 10.7 H Lymphocytes # 2.1 Monocytes # 0.9 Eosinophils # 0.2 Basophils # 0.0 Nucleated Red Blood Cells # 0.0 Sodium Level 143 Potassium Level 4.2 Chloride Level 114 H Carbon Dioxide Level 22 Anion Gap 11 Blood Urea Nitrogen 69 H Creatinine 1.20 Glucose Level 84 Calcium Level 7.8 L Bedside Glucose 75 Medications Current Medications Acetaminophen (Tylenol Supp) 650 mg Q4H PRN [place] PAIN LEVEL 1-3 OR FEVER; Start 09/24/16 at 03:00 Eye Lubricant (Artificial Tears Oph) 1 drop TID BOTH EYES Last administered on 10/03/16 08:55; Admin Dose 1 DROP; Start 09/24/16 at 09:00 Sodium Hypochlorite (Dakin'S (1/4 Strength)) 1 applic BID IRR Last administered on 10/03/16 08:56; Admin Dose 1 APPLIC; Start 09/24/16 at 21:00 Pantoprazole (Protonix Iv) 40 mg BID@06,18 IV Last administered on 10/03/16 05 :15; Admin Dose 40 MG; Start 09/24/16 at 18:00 Collagenase (Santyl) 1 applic DAILY TOP Last administered on 10/03/16 09:03; Admin Dose 1 APPLIC; Start 09/24/16 at 20:30 Miscellaneous Information 1 ea NOTE XX ; Start 09/24/16 at 21:00 Glucose (Glutose) 15 gm Q15M PRN PO DECREASED GLUCOSE; Start 09/24/16 at 21:00 Glucose (Glutose) 22.5 gm Q15M PRN PO DECREASED GLUCOSE; Start 09/24/16 at 21: 00 Dextrose (D50w Syringe) 25 ml Q15M PRN IV DECREASED GLUCOSE; Start 09/24/16 at 21:00 Dextrose (D50w Syringe) 50 ml Q15M PRN IV DECREASED GLUCOSE; Start 09/24/16 at 21:00 Glucagon (Glucagen) 1 mg Q15M PRN IM DECREASED GLUCOSE; Start 09/24/16 at 21:00 Glucose 15 gm 15 gm Q15M PRN BUCCAL DECREASED GLUCOSE; Start 09/24/16 at 21:00 Acetaminophen (Ofirmev 1000mg/ 100ml Iv) 100 ml @ 400 mls/hr Q6H PRN IVPB FEVER Last administered on 09/29/16 20:27; Admin Dose 400 MLS/HR; Start at 22:00 Mupirocin (Bactroban) 1 applic BID TOP Last administered on 10/03/16 09:03; Admin Dose 1 APPLIC; Start 09/25/16 at 21:00 Vancomycin HCl (Vancomycin Oral Syringe) 250 mg Q6 PO Last administered on 10/03 06:05; Admin Dose 250 MG; Start 09/26/16 at 18:00 Lactobacillus Acidoph/Bulgaricus (Floranex) 1 tab TID PO Last administered on 08:55; Admin Dose 1 TAB; Start 09/26/16 at 21:00 Atorvastatin Calcium (Lipitor) 20 mg QHS GTB Last administered on 10/02/16 20: 53; Admin Dose 20 MG; Start 09/28/16 at 21:00 Finasteride (Proscar) 5 mg DAILY GTB Last administered on 10/03/16 08:55; Admin Dose 5 MG; Start 09/29/16 at 09:00 Levothyroxine Sodium (Synthroid) 25 mcg DAILY@06 GTB Last administered on 05:15; Admin Dose 25 MCG; Start 09/29/16 at 06:00 Multivitamins Therapeutic (Theragran) 1 tab DAILY GTB Last administered on 10/03 08:54; Admin Dose 1 TAB; Start 09/29/16 at 09:00 Zinc Sulfate (Zinc Sulfate) 220 mg DAILY NGT Last administered on 10/03/16 08: 54; Admin Dose 220 MG; Start 09/29/16 at 09:00 Insulin Aspart (Novolog Insulin Pen) NOVOLOG *MILD* ALGORI... Q6 SC ; Start at 18:00 Ondansetron HCl (Zofran Inj) 4 mg Q6H PRN IV NAUSEA AND/OR VOMITING; Start at 07:30 Heparin Sodium (Porcine) (Heparin (5000 Units/0.5 ml)) 5,000 unit BID SC Last administered on 10/03/16 09:00; Admin Dose 5,000 UNIT; Start 09/29/16 at 09:00 Linezolid (Zyvox) 600 mg BID PO Last administered on 10/03/16 08:55; Admin Dose 600 MG; Start 09/30/16 at 11:30 Acetaminophen 650 mg 650 mg Q6H PRN GTB PAIN AND OR ELEVATED TEMP Last administered on 10/02/16 22:59; Admin Dose 650 MG; Start 10/02/16 at 08:00 Colistimethate Sodium 150 mg/ Sodium Chloride 100 ml @ 200 mls/hr Q24H IVPB Last administered on 10/03/16 09:51; Admin Dose 200 MLS/HR; Start 10/03/16 at 10:00 Metronidazole (Flagyl 500 Mg (Pmx)) 100 ml @ 100 mls/hr Q8 IVPB Last administered on 10/03/16 05:15; Admin Dose 100 MLS/HR; Start 10/02/16 at 14:00 Assessment/Plan Chief Complaint/Hosp Course Assessment 1. Status post Septic shock likely secondary to pneumonia 2. Significant anemia requiring blood transfusions 3. Vent dependent respiratory failure 4. Dysphagia with G-tube 5. Hypernatremia 6. History of renal insufficiency Plan 1. Continue mechanical ventilation 2. Continue antibiotics per infectious diseases 3. Monitor H&H 4. Continue renal recommendations Disposition Palliative care consult [place] evaluation Problems: ABBI DELCID MD, [facility] Oct 03, 2016 11:02
--- NOTE | 2016-10-03 11:12 | CONS ---
Date/Time of Note Date/Time of Note DATE: 10/03/16 TIME: 11:07 Assessment/Plan Assessment/Plan Additional Assessment/Plan 1. Acute kidney injury on chronic kidney disease. This is likely secondary to severe prerenal azotemia causing ischemic acute tubular necrosis. 2. Severe hyponatremia with a sodium of 165 - now improved with D5 W 3. Contraction metabolic alkalosis with a bicarbonate of 40.- improved 4. Septic shock with lactic acid of 8.7 secondary to UTI 5. History of chronic respiratory failure, status post tracheostomy, on ventilator. 6. History of G-tube. 7. Poor mental status due to the previous cerebrovascular accident. 8. History of dementia. 9. History of hypertension. PLAN: BUN slowly improving , Cr normal ,Na normal, IVF D5W has been discontinued on 10/02/16, on IV abx for sepsis expecting BUN to slowly improve good urine output will follow up Consultation Date/Type/Reason Admit Date/Time Sep 24, 2016 at 03:19 Initial Consult Date 09/24/16 Type of Consultation: NEPHROLOGY Referring Provider: ROULA DEL TORO 24 HR Interval Summary Free Text/Dictation pt remained stable, IVF D5 W discontinued yesterday, BUN slowly improving Exam/Review of Systems Vital Signs Vitals Vital Signs Date Time Temp Pulse Resp B/P Pulse Ox O2 Delivery O2 Flow Rate FiO2 10/03/16 09:15 101 22 100 30 10/03/16 07:40 97.9 110/68 10/03/16 06:00 Mechanical Ventilator Intake and Output 10/02/16 10/02/16 10/03/16 15:00 23:00 07:00 Intake Total 850 ml 750 ml Output Total 650 ml 800 ml Balance 200 ml -50 ml Exam GENERAL: noacute distress NECK: Trach -> Secure to Vent CHEST: Equal chest rise bilaterally, without dyspnea on observation , no wheezing/ HEART: S1 S2 RRR no murmur ABDOMEN: Soft/peg EXTREMITIES: Warm SKIN: See hard chart skin assessment Results Result Diagram: 10/03/16 0610 10/03/16 0610 Results 24 hrs Laboratory Tests Test 10/02/16 12:22 10/02/16 18:24 10/03/16 00:38 10/03/16 05:14 Bedside Glucose 108 83 94 96 Test 10/03/16 06:10 10/03/16 07:41 White Blood Count 14.0 H Red Blood Count 3.50 L Hemoglobin 8.5 L Hematocrit 29.7 L Mean Corpuscular Volume 84.9 Mean Corpuscular Hemoglobin 24.3 L Mean Corpuscular Hemoglobin Concent 28.6 L Red Cell Distribution Width 20.1 H Platelet Count 542 H Mean Platelet Volume 11.7 H Neutrophils % 76.3 Lymphocytes % 14.8 L Monocytes % 6.4 Eosinophils % 1.7 Basophils % 0.2 Nucleated Red Blood Cells % 0.0 Neutrophils # 10.7 H Lymphocytes # 2.1 Monocytes # 0.9 Eosinophils # 0.2 Basophils # 0.0 Nucleated Red Blood Cells # 0.0 Sodium Level 143 Potassium Level 4.2 Chloride Level 114 H Carbon Dioxide Level 22 Anion Gap 11 Blood Urea Nitrogen 69 H Creatinine 1.20 Glucose Level 84 Calcium Level 7.8 L Bedside Glucose 75 Medications Medications Current Medications Acetaminophen (Tylenol Supp) 650 mg Q4H PRN NE PAIN LEVEL 1-3 OR FEVER; Start 09/24/16 at 03:00 Eye Lubricant (Artificial Tears Oph) 1 drop TID BOTH EYES Last administered on 10/03/16 08:55; Admin Dose 1 DROP; Start 09/24/16 at 09:00 Sodium Hypochlorite (Dakin'S (1/4 Strength)) 1 applic BID IRR Last administered on 10/03/16 08:56; Admin Dose 1 APPLIC; Start 09/24/16 at 21:00 Pantoprazole (Protonix Iv) 40 mg BID@06,18 IV Last administered on 10/03/16 05 :15; Admin Dose 40 MG; Start 09/24/16 at 18:00 Collagenase (Santyl) 1 applic DAILY TOP Last administered on 10/03/16 09:03; Admin Dose 1 APPLIC; Start 09/24/16 at 20:30 Miscellaneous Information 1 ea NOTE XX ; Start 09/24/16 at 21:00 Glucose (Glutose) 15 gm Q15M PRN PO DECREASED GLUCOSE; Start 09/24/16 at 21:00 Glucose (Glutose) 22.5 gm Q15M PRN PO DECREASED GLUCOSE; Start 09/24/16 at 21: 00 Dextrose (D50w Syringe) 25 ml Q15M PRN IV DECREASED GLUCOSE; Start 09/24/16 at 21:00 Dextrose (D50w Syringe) 50 ml Q15M PRN IV DECREASED GLUCOSE; Start 09/24/16 at 21:00 Glucagon (Glucagen) 1 mg Q15M PRN IM DECREASED GLUCOSE; Start 09/24/16 at 21:00 Glucose 15 gm 15 gm Q15M PRN BUCCAL DECREASED GLUCOSE; Start 09/24/16 at 21:00 Acetaminophen (Ofirmev 1000mg/ 100ml Iv) 100 ml @ 400 mls/hr Q6H PRN IVPB FEVER Last administered on 09/29/16 20:27; Admin Dose 400 MLS/HR; Start at 22:00 Mupirocin (Bactroban) 1 applic BID TOP Last administered on 10/03/16 09:03; Admin Dose 1 APPLIC; Start 09/25/16 at 21:00 Vancomycin HCl (Vancomycin Oral Syringe) 250 mg Q6 PO Last administered on 10/03 06:05; Admin Dose 250 MG; Start 09/26/16 at 18:00 Lactobacillus Acidoph/Bulgaricus (Floranex) 1 tab TID PO Last administered on 08:55; Admin Dose 1 TAB; Start 09/26/16 at 21:00 Atorvastatin Calcium (Lipitor) 20 mg QHS GTB Last administered on 10/02/16 20: 53; Admin Dose 20 MG; Start 09/28/16 at 21:00 Finasteride (Proscar) 5 mg DAILY GTB Last administered on 10/03/16 08:55; Admin Dose 5 MG; Start 09/29/16 at 09:00 Levothyroxine Sodium (Synthroid) 25 mcg DAILY@06 GTB Last administered on 05:15; Admin Dose 25 MCG; Start 09/29/16 at 06:00 Multivitamins Therapeutic (Theragran) 1 tab DAILY GTB Last administered on 10/03 08:54; Admin Dose 1 TAB; Start 09/29/16 at 09:00 Zinc Sulfate (Zinc Sulfate) 220 mg DAILY NGT Last administered on 10/03/16 08: 54; Admin Dose 220 MG; Start 09/29/16 at 09:00 Insulin Aspart (Novolog Insulin Pen) NOVOLOG *MILD* ALGORI... Q6 SC ; Start at 18:00 Ondansetron HCl (Zofran Inj) 4 mg Q6H PRN IV NAUSEA AND/OR VOMITING; Start at 07:30 Heparin Sodium (Porcine) (Heparin (5000 Units/0.5 ml)) 5,000 unit BID SC Last administered on 10/03/16 09:00; Admin Dose 5,000 UNIT; Start 09/29/16 at 09:00 Linezolid (Zyvox) 600 mg BID PO Last administered on 10/03/16 08:55; Admin Dose 600 MG; Start 09/30/16 at 11:30 Acetaminophen 650 mg 650 mg Q6H PRN GTB PAIN AND OR ELEVATED TEMP Last administered on 10/02/16 22:59; Admin Dose 650 MG; Start 10/02/16 at 08:00 Colistimethate Sodium 150 mg/ Sodium Chloride 100 ml @ 200 mls/hr Q24H IVPB Last administered on 10/03/16 09:51; Admin Dose 200 MLS/HR; Start 10/03/16 at 10:00 Metronidazole (Flagyl 500 Mg (Pmx)) 100 ml @ 100 mls/hr Q8 IVPB Last administered on 10/03/16 05:15; Admin Dose 100 MLS/HR; Start 10/02/16 at 14:00 MAGGIE DINERO MD Oct 03, 2016 11:12
--- NOTE | 2016-10-03 11:29 | PN ---
Date/Time of Note Date/Time of Note DATE: 10/03/16 TIME: 11:27 Assessment/Plan Lines/Catheters IV Catheter Type (from [facility]): PICC Line Cee in Place (from [facility]): Yes Assessment/Plan Chief Complaint/Hosp Course 1. Shock (septic (UTI, pneumonia) plus or minus hypovolemic). Improved -Judicious fluid management -Supportive measures -Antibiotics 2. Multiple decubitus ulcerations with necrotic tissue and deep tissue injury -Offload -Local care -Vitamin C -Eventual nutritional optimization -Debridement when medically cleared 3. Contracted state with functional quadriplegia -Offloading -Nutritional optimization when possible 4. Anemia -Monitor 5. Ventilator dependent respiratory failure -Ventilator management and pulmonary toilet 6. Renal insufficiency -Judicious fluid management -Avoid nephrotoxic agents 7. Coronary artery disease and history of non-ST elevation SD -Cardiac optimization Thank you Problems: Subjective 24 Hr Interval Summary Leukocytosis. Fevers improving. No chills. No cough. No seizure. No rash. No vomiting. No blood per mouth or rectum. No bloating. No seizures. Exam/Review of Systems Vital Signs Vitals Vital Signs Date Time Temp Pulse Resp B/P Pulse Ox O2 Delivery O2 Flow Rate FiO2 10/03/16 11:22 98.1 94 21 107/47 98 10/03/16 09:15 30 10/03/16 06:00 Mechanical Ventilator Intake and Output 10/02/16 10/02/16 10/03/16 15:00 23:00 07:00 Intake Total 850 ml 750 ml Output Total 650 ml 800 ml Balance 200 ml -50 ml Exam Free Text/Dictation Constitutional: No alert, No oriented Psych: No nl mood/affect Head: atraumatic, normocephalic Eyes: nl conjunctiva, No EOMI, No icteric ENMT: mucosa pink and moist, nl external ears & nose Neck: jvd, other (Trach in place), No non-tender, No supple Respiratory: No congested cough, No labored breathing Cardiovascular: No regular rate and rhythm Gastrointestinal: non-tender, other (PEG in place), soft, No rebound or guarding Musculoskeletal: No joint tenderness, No nl extremities to inspection, No nl gait and stance Extremities: No calf tenderness, No cyanosis Neurological: No nl mental status, No nl speech, No nl strength Skin: rash or lesions (Multiple decubitus ulcerations with debris, necrotic tissue, deep tissue injury), No diaphoresis, No nl turgor Lymph: nontender Results Result Diagram: 10/03/16 0610 10/03/16 0610 EVA GUARDADO MD Oct 03, 2016 11:28
--- NOTE | 2016-10-03 14:08 | CONS ---
Date/Time of Note Date/Time of Note DATE: 10/03/16 TIME: 14:07 Assessment/Plan Assessment/Plan Additional Assessment/Plan Severe septic shock Preserved ejection fraction Moderate aortic stenosis Respiratory failure Coronary artery disease Anemia Acute kidney injury, improving -Blood pressure trend remains stable. Fluid management as per our nephrology colleagues. Would continue to hold any antihypertensives at the current time given labile blood pressure. Antibiotics as per infectious disease. Consultation Date/Type/Reason Admit Date/Time Sep 24, 2016 at 03:19 Initial Consult Date 09/24/16 Type of Consultation: cv Referring Provider: ROULA DEL TORO 24 HR Interval Summary Free Text/Dictation Patient seen and examined Exam/Review of Systems Vital Signs Vitals Vital Signs Date Time Temp Pulse Resp B/P Pulse Ox O2 Delivery O2 Flow Rate FiO2 10/03/16 12:38 96 10/03/16 11:22 98.1 21 107/47 98 10/03/16 11:15 30 10/03/16 10:00 Mechanical Ventilator Intake and Output 10/02/16 10/02/16 10/03/16 15:00 23:00 07:00 Intake Total 850 ml 750 ml Output Total 650 ml 800 ml Balance 200 ml -50 ml Exam Awake, no apparent distress Head: normocephalic Neck: other (Tracheostomy) Respiratory: other (Coarse breath sounds bilaterally, no wheezing) Cardiovascular: other (S1-S2 heard), regular rate and rhythm Gastrointestinal: bowel sounds, non-tender, other (No guarding), soft Extremities: edema, other (No cyanosis) Results Result Diagram: 10/03/16 0610 10/03/16 0610 Results 24 hrs Laboratory Tests Test 10/02/16 18:24 10/03/16 00:38 10/03/16 05:14 10/03/16 06:10 Bedside Glucose 83 94 96 White Blood Count 14.0 H Red Blood Count 3.50 L Hemoglobin 8.5 L Hematocrit 29.7 L Mean Corpuscular Volume 84.9 Mean Corpuscular Hemoglobin 24.3 L Mean Corpuscular Hemoglobin Concent 28.6 L Red Cell Distribution Width 20.1 H Platelet Count 542 H Mean Platelet Volume 11.7 H Neutrophils % 76.3 Lymphocytes % 14.8 L Monocytes % 6.4 Eosinophils % 1.7 Basophils % 0.2 Nucleated Red Blood Cells % 0.0 Neutrophils # 10.7 H Lymphocytes # 2.1 Monocytes # 0.9 Eosinophils # 0.2 Basophils # 0.0 Nucleated Red Blood Cells # 0.0 Sodium Level 143 Potassium Level 4.2 Chloride Level 114 H Carbon Dioxide Level 22 Anion Gap 11 Blood Urea Nitrogen 69 H Creatinine 1.20 Glucose Level 84 Calcium Level 7.8 L Test 10/03/16 07:41 10/03/16 11:53 Bedside Glucose 75 88 Medications Medications Current Medications Acetaminophen (Tylenol Supp) 650 mg Q4H PRN NE PAIN LEVEL 1-3 OR FEVER; Start 09/24/16 at 03:00 Eye Lubricant (Artificial Tears Oph) 1 drop TID BOTH EYES Last administered on 10/03/16 08:55; Admin Dose 1 DROP; Start 09/24/16 at 09:00 Sodium Hypochlorite (Dakin'S (1/4 Strength)) 1 applic BID IRR Last administered on 10/03/16 08:56; Admin Dose 1 APPLIC; Start 09/24/16 at 21:00 Pantoprazole (Protonix Iv) 40 mg BID@06,18 IV Last administered on 10/03/16 05 :15; Admin Dose 40 MG; Start 09/24/16 at 18:00 Collagenase (Santyl) 1 applic DAILY TOP Last administered on 10/03/16 09:03; Admin Dose 1 APPLIC; Start 09/24/16 at 20:30 Miscellaneous Information 1 ea NOTE XX ; Start 09/24/16 at 21:00 Glucose (Glutose) 15 gm Q15M PRN PO DECREASED GLUCOSE; Start 09/24/16 at 21:00 Glucose (Glutose) 22.5 gm Q15M PRN PO DECREASED GLUCOSE; Start 09/24/16 at 21: 00 Dextrose (D50w Syringe) 25 ml Q15M PRN IV DECREASED GLUCOSE; Start 09/24/16 at 21:00 Dextrose (D50w Syringe) 50 ml Q15M PRN IV DECREASED GLUCOSE; Start 09/24/16 at 21:00 Glucagon (Glucagen) 1 mg Q15M PRN IM DECREASED GLUCOSE; Start 09/24/16 at 21:00 Glucose 15 gm 15 gm Q15M PRN BUCCAL DECREASED GLUCOSE; Start 09/24/16 at 21:00 Acetaminophen (Ofirmev 1000mg/ 100ml Iv) 100 ml @ 400 mls/hr Q6H PRN IVPB FEVER Last administered on 09/29/16 20:27; Admin Dose 400 MLS/HR; Start at 22:00 Mupirocin (Bactroban) 1 applic BID TOP Last administered on 10/03/16 09:03; Admin Dose 1 APPLIC; Start 09/25/16 at 21:00 Vancomycin HCl (Vancomycin Oral Syringe) 250 mg Q6 PO Last administered on 10/03 12:02; Admin Dose 250 MG; Start 09/26/16 at 18:00 Lactobacillus Acidoph/Bulgaricus (Floranex) 1 tab TID PO Last administered on 08:55; Admin Dose 1 TAB; Start 09/26/16 at 21:00 Atorvastatin Calcium (Lipitor) 20 mg QHS GTB Last administered on 10/02/16 20: 53; Admin Dose 20 MG; Start 09/28/16 at 21:00 Finasteride (Proscar) 5 mg DAILY GTB Last administered on 10/03/16 08:55; Admin Dose 5 MG; Start 09/29/16 at 09:00 Levothyroxine Sodium (Synthroid) 25 mcg DAILY@06 GTB Last administered on 05:15; Admin Dose 25 MCG; Start 09/29/16 at 06:00 Multivitamins Therapeutic (Theragran) 1 tab DAILY GTB Last administered on 10/03 08:54; Admin Dose 1 TAB; Start 09/29/16 at 09:00 Zinc Sulfate (Zinc Sulfate) 220 mg DAILY NGT Last administered on 10/03/16 08: 54; Admin Dose 220 MG; Start 09/29/16 at 09:00 Insulin Aspart (Novolog Insulin Pen) NOVOLOG *MILD* ALGORI... Q6 SC ; Start at 18:00 Ondansetron HCl (Zofran Inj) 4 mg Q6H PRN IV NAUSEA AND/OR VOMITING; Start at 07:30 Heparin Sodium (Porcine) (Heparin (5000 Units/0.5 ml)) 5,000 unit BID SC Last administered on 10/03/16 09:00; Admin Dose 5,000 UNIT; Start 09/29/16 at 09:00 Linezolid (Zyvox) 600 mg BID PO Last administered on 10/03/16 08:55; Admin Dose 600 MG; Start 09/30/16 at 11:30 Acetaminophen 650 mg 650 mg Q6H PRN GTB PAIN AND OR ELEVATED TEMP Last administered on 10/02/16 22:59; Admin Dose 650 MG; Start 10/02/16 at 08:00 Colistimethate Sodium 150 mg/ Sodium Chloride 100 ml @ 200 mls/hr Q24H IVPB Last administered on 10/03/16 09:51; Admin Dose 200 MLS/HR; Start 10/03/16 at 10:00 Metronidazole (Flagyl 500 Mg (Pmx)) 100 ml @ 100 mls/hr Q8 IVPB Last administered on 10/03/16 05:15; Admin Dose 100 MLS/HR; Start 10/02/16 at 14:00 Ryder Wild DO Oct 03, 2016 14:08
--- NOTE | 2016-10-03 16:19 | PN ---
DATE: 10/03/2016 SUBJECTIVE: No acute events overnight. No fevers. The patient is lying comfortably in bed, diarrh ea resolving. WBC 14, platelets 542, neutrophils 76.3, BUN 69, creatinine 1.20. MICROBIOLOGY: Blood culture on 09/28/2016 remains negative. ANTIMICROBIALS: The patient is on: 1. Colistin 2. Flagyl. 3. Zyvox. 4. Oral vancomycin. INDWELLINGS: Trach, PEG, Cee. PHYSICAL EXAMINATION: GENERAL: This is a chronically ill-appearing, elderly man who is awake, noncommunicative, in no dis tress. HEENT: Head atraumatic, normocephalic. Sclerae anicteric. Buccal mucosa dry. NECK: Supple. Tracheostomy present. CHEST: Rise symmetrical. Breath sounds diminished to bases. HEART: S1, S2. ABDOMEN: Soft, bowel sounds present. EXTREMITIES: Without cyanosis. Trace edema. ASSESSMENT: 1. Resolving sepsis status post shock. 2. Escherichia coli and Bacteroides fragilis bacteremia on admission. 3. Escherichia coli urinary tract infection. 4. Methicillin-resistant Staphylococcus aureus nares colonization. 5. Multiple decubitus with wound culture growing multi-drug resistant organisms. 6. Chronic respiratory failure. 7. History of cerebrovascular accident. PLAN: The patient remains stable. We will continue him on current antimicrobials. Continue local wound care. Dictated By: CHIRSTOPHER MCDONOUGH MAILING SECTION CLERK for YAQUELIN SMYTH/ELIZABETH Conf#: [id number] DID#: [id number]
--- NOTE | 2016-10-03 18:30 | PN ---
Date/Time of Note Date/Time of Note DATE: 10/03/16 TIME: 18:29 Assessment/Plan VTE Prophylaxis VTE Prophylaxis Intervention: SCD's Assessment/Plan Chief Complaint/Hosp Course 1. Severe sepsis with septic shock 2/2 Decub ulcers and/or UTI and/or PNA: stable, off pressor support 2. Severe hypernatremia 2/2 dehydration: improving 3. Acute renal failure 2/2 ATN from dehydration: improving 4. Ecoli bacteremia and UTI : 5. Multifocal pneumonia (E coli / A baumanii) 6. 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 Hypochromic microcytic Iron deficiency anemia likely 2/2 chronic Bleed 8. Hypokalemia: resolved 9. Probable GI bleed (Coffee ground drainage from G tube) 10. Severe multiple pressure ulcers infected with multiple organisms including MRSA 11. Hx of severe C-diff/ pseudomembranous colitis 12. Hypothyroidism with good control: Levothyroxine 13. Chronic Dysphagia 2/2 encephalopathy 14. Chronic resp failure ventilator dependent Via tracheostomy PLAN: * Abx changed to Colistin and Zyvox, Flagyl also added, cont Vanco PO * Monitor fever curve/ f/u repeat blood cultures / Change snider / if fever persists, d/w surgery re: possible debridement * Complete 5 days of Iv iron supplementation and the switch to oral * Pt had fevers last night and WBC is elevated today, not stable for DG today * IVF managed per Nephro and patient has been restarted on tube feeds till family gives consent for EGD * With degree of sores, Patient may require more aggressive intervention (? diverting colostomy) however will defer to surgery. Patient however is an extremely poor candidate and with comorbidities and baseline encephalopathy is more appropriate for hospice care instead / Palliative care consulted. PROPHYLAXIS: Start low dose heparin and monitor for bleeding / SCDS / Protonix Problems: Subjective 24 Hr Interval Summary Subjective hx not possible: pt non-verbal Exam/Review of Systems Vital Signs Vitals Vital Signs Date Time Temp Pulse Resp B/P Pulse Ox O2 Delivery O2 Flow Rate FiO2 10/03/16 17:00 98 19 98 30 10/03/16 14:00 99.0 125/59 10/03/16 10:00 Mechanical Ventilator Intake and Output 10/02/16 10/02/16 10/03/16 15:00 23:00 07:00 Intake Total 850 ml 750 ml Output Total 650 ml 800 ml Balance 200 ml -50 ml Exam Constitutional: non-verbal Respiratory: clear to auscultation Cardiovascular: regular rate and rhythm Gastrointestinal: soft, No distended Musculoskeletal: nl extremities to inspection Results Result Diagram: 10/03/16 0610 10/03/16 0610 Results 24 hrs Laboratory Tests Test 10/03/16 00:38 10/03/16 05:14 10/03/16 06:10 10/03/16 07:41 Bedside Glucose 94 96 75 White Blood Count 14.0 H Red Blood Count 3.50 L Hemoglobin 8.5 L Hematocrit 29.7 L Mean Corpuscular Volume 84.9 Mean Corpuscular Hemoglobin 24.3 L Mean Corpuscular Hemoglobin Concent 28.6 L Red Cell Distribution Width 20.1 H Platelet Count 542 H Mean Platelet Volume 11.7 H Neutrophils % 76.3 Lymphocytes % 14.8 L Monocytes % 6.4 Eosinophils % 1.7 Basophils % 0.2 Nucleated Red Blood Cells % 0.0 Neutrophils # 10.7 H Lymphocytes # 2.1 Monocytes # 0.9 Eosinophils # 0.2 Basophils # 0.0 Nucleated Red Blood Cells # 0.0 Sodium Level 143 Potassium Level 4.2 Chloride Level 114 H Carbon Dioxide Level 22 Anion Gap 11 Blood Urea Nitrogen 69 H Creatinine 1.20 Glucose Level 84 Calcium Level 7.8 L Test 10/03/16 11:53 10/03/16 17:08 Bedside Glucose 88 90 Medications Medications Current Medications Acetaminophen (Tylenol Supp) 650 mg Q4H PRN ID PAIN LEVEL 1-3 OR FEVER; Start 09/24/16 at 03:00 Eye Lubricant (Artificial Tears Oph) 1 drop TID BOTH EYES Last administered on 10/03/16 14:22; Admin Dose 1 DROP; Start 09/24/16 at 09:00 Sodium Hypochlorite (Dakin'S (1/4 Strength)) 1 applic BID IRR Last administered on 10/03/16 08:56; Admin Dose 1 APPLIC; Start 09/24/16 at 21:00 Pantoprazole (Protonix Iv) 40 mg BID@06,18 IV Last administered on 10/03/16 18 :21; Admin Dose 40 MG; Start 09/24/16 at 18:00 Collagenase (Santyl) 1 applic DAILY TOP Last administered on 10/03/16 09:03; Admin Dose 1 APPLIC; Start 09/24/16 at 20:30 Miscellaneous Information 1 ea NOTE XX ; Start 09/24/16 at 21:00 Glucose (Glutose) 15 gm Q15M PRN PO DECREASED GLUCOSE; Start 09/24/16 at 21:00 Glucose (Glutose) 22.5 gm Q15M PRN PO DECREASED GLUCOSE; Start 09/24/16 at 21: 00 Dextrose (D50w Syringe) 25 ml Q15M PRN IV DECREASED GLUCOSE; Start 09/24/16 at 21:00 Dextrose (D50w Syringe) 50 ml Q15M PRN IV DECREASED GLUCOSE; Start 09/24/16 at 21:00 Glucagon (Glucagen) 1 mg Q15M PRN IM DECREASED GLUCOSE; Start 09/24/16 at 21:00 Glucose 15 gm 15 gm Q15M PRN BUCCAL DECREASED GLUCOSE; Start 09/24/16 at 21:00 Acetaminophen (Ofirmev 1000mg/ 100ml Iv) 100 ml @ 400 mls/hr Q6H PRN IVPB FEVER Last administered on 09/29/16 20:27; Admin Dose 400 MLS/HR; Start at 22:00 Mupirocin (Bactroban) 1 applic BID TOP Last administered on 10/03/16 09:03; Admin Dose 1 APPLIC; Start 09/25/16 at 21:00 Vancomycin HCl (Vancomycin Oral Syringe) 250 mg Q6 PO Last administered on 10/03 18:21; Admin Dose 250 MG; Start 09/26/16 at 18:00 Lactobacillus Acidoph/Bulgaricus (Floranex) 1 tab TID PO Last administered on 14:22; Admin Dose 1 TAB; Start 09/26/16 at 21:00 Atorvastatin Calcium (Lipitor) 20 mg QHS GTB Last administered on 10/02/16 20: 53; Admin Dose 20 MG; Start 09/28/16 at 21:00 Finasteride (Proscar) 5 mg DAILY GTB Last administered on 10/03/16 08:55; Admin Dose 5 MG; Start 09/29/16 at 09:00 Levothyroxine Sodium (Synthroid) 25 mcg DAILY@06 GTB Last administered on 05:15; Admin Dose 25 MCG; Start 09/29/16 at 06:00 Multivitamins Therapeutic (Theragran) 1 tab DAILY GTB Last administered on 10/03 08:54; Admin Dose 1 TAB; Start 09/29/16 at 09:00 Zinc Sulfate (Zinc Sulfate) 220 mg DAILY NGT Last administered on 10/03/16 08: 54; Admin Dose 220 MG; Start 09/29/16 at 09:00 Insulin Aspart (Novolog Insulin Pen) NOVOLOG *MILD* ALGORI... Q6 SC ; Start at 18:00 Ondansetron HCl (Zofran Inj) 4 mg Q6H PRN IV NAUSEA AND/OR VOMITING; Start at 07:30 Heparin Sodium (Porcine) (Heparin (5000 Units/0.5 ml)) 5,000 unit BID SC Last administered on 10/03/16 09:00; Admin Dose 5,000 UNIT; Start 09/29/16 at 09:00 Linezolid (Zyvox) 600 mg BID PO Last administered on 10/03/16 08:55; Admin Dose 600 MG; Start 09/30/16 at 11:30 Acetaminophen 650 mg 650 mg Q6H PRN GTB PAIN AND OR ELEVATED TEMP Last administered on 10/02/16 22:59; Admin Dose 650 MG; Start 10/02/16 at 08:00 Colistimethate Sodium 150 mg/ Sodium Chloride 100 ml @ 200 mls/hr Q24H IVPB Last administered on 10/03/16 09:51; Admin Dose 200 MLS/HR; Start 10/03/16 at 10:00 Metronidazole (Flagyl 500 Mg (Pmx)) 100 ml @ 100 mls/hr Q8 IVPB Last administered on 10/03/16 14:23; Admin Dose 100 MLS/HR; Start 10/02/16 at 14:00 KEVYN GARNETT Oct 03, 2016 18:30
--- NOTE | 2016-10-03 21:08 | CONS ---
Date/Time of Note Date/Time of Note DATE: 10/03/16 TIME: 21:04 Assessment/Plan Assessment/Plan Chief Complaint/Hosp Course ANEMIA - NEAR- MICROCYTIC WITH INCREASED RDW DROP H/H DURING HOSPITALIZATION + ACD TRANSFUSE PRBC TO KEEP HB MORE THAN 8 TRANSFUSE NEEDED GI F-UP Stool OB, negative Monitor H&H every 8 hours, transfuse 2 units for hemoglobin less than 8 Continue PPI drips EGD PER [facility] LEUKOCYTOSIS- REACTIVE CONT ATB FOR SEPSIS THROMBOCYTOSIS REACTIVE SHOULD IMPROVE WITH RESOLUTION OF SEPSIS Severe sepsis with septic shock 2/2 Decub ulcers and/or UTI and/or PNA: stable, off pressor support Severe hypernatremic dehydration Acute renal failure 2/2 ATN from dehydration UTI Multifocal pneumonia Encephalopathy ?acute versus acute on chronic (baseline unknown) Hypokalemia Problems: Consultation Date/Type/Reason Admit Date/Time Sep 24, 2016 at 03:19 Initial Consult Date 09/24/16 Type of Consultation: HEMEONC Referring Provider: ROULA DEL TORO 24 HR Interval Summary Free Text/Dictation ALL NOTED COUNT STABLE NO BLEEDING Exam/Review of Systems Vital Signs Vitals Vital Signs Date Time Temp Pulse Resp B/P Pulse Ox O2 Delivery O2 Flow Rate FiO2 10/03/16 19:43 100.5 102 27 132/60 98 10/03/16 19:25 30 10/03/16 10:00 Mechanical Ventilator Intake and Output 10/02/16 10/02/16 10/03/16 15:00 23:00 07:00 Intake Total 850 ml 750 ml Output Total 650 ml 800 ml Balance 200 ml -50 ml Exam Constitutional: Awake Integumentary Multiple decubitus ulcers Respiratory: Tracheostomy on vent Cardiovascular: regular rate and rhythm Gastrointestinal: soft, non-tender,gtube in placed,rectal tube draining Musculoskeletal: Contractures bilateral Results Result Diagram: 10/03/16 0610 10/03/16 0610 Results 24 hrs Laboratory Tests Test 10/03/16 00:38 10/03/16 05:14 10/03/16 06:10 10/03/16 07:41 Bedside Glucose 94 96 75 White Blood Count 14.0 H Red Blood Count 3.50 L Hemoglobin 8.5 L Hematocrit 29.7 L Mean Corpuscular Volume 84.9 Mean Corpuscular Hemoglobin 24.3 L Mean Corpuscular Hemoglobin Concent 28.6 L Red Cell Distribution Width 20.1 H Platelet Count 542 H Mean Platelet Volume 11.7 H Neutrophils % 76.3 Lymphocytes % 14.8 L Monocytes % 6.4 Eosinophils % 1.7 Basophils % 0.2 Nucleated Red Blood Cells % 0.0 Neutrophils # 10.7 H Lymphocytes # 2.1 Monocytes # 0.9 Eosinophils # 0.2 Basophils # 0.0 Nucleated Red Blood Cells # 0.0 Sodium Level 143 Potassium Level 4.2 Chloride Level 114 H Carbon Dioxide Level 22 Anion Gap 11 Blood Urea Nitrogen 69 H Creatinine 1.20 Glucose Level 84 Calcium Level 7.8 L Test 10/03/16 11:53 10/03/16 17:08 Bedside Glucose 88 90 Medications Medications Current Medications Acetaminophen (Tylenol Supp) 650 mg Q4H PRN [place] PAIN LEVEL 1-3 OR FEVER; Start 09/24/16 at 03:00 Eye Lubricant (Artificial Tears Oph) 1 drop TID BOTH EYES Last administered on 10/03/16 14:22; Admin Dose 1 DROP; Start 09/24/16 at 09:00 Sodium Hypochlorite (Dakin'S (1/4 Strength)) 1 applic BID IRR Last administered on 10/03/16 08:56; Admin Dose 1 APPLIC; Start 09/24/16 at 21:00 Pantoprazole (Protonix Iv) 40 mg BID@06,18 IV Last administered on 10/03/16 18 :21; Admin Dose 40 MG; Start 09/24/16 at 18:00 Collagenase (Santyl) 1 applic DAILY TOP Last administered on 10/03/16 09:03; Admin Dose 1 APPLIC; Start 09/24/16 at 20:30 Miscellaneous Information 1 ea NOTE XX ; Start 09/24/16 at 21:00 Glucose (Glutose) 15 gm Q15M PRN PO DECREASED GLUCOSE; Start 09/24/16 at 21:00 Glucose (Glutose) 22.5 gm Q15M PRN PO DECREASED GLUCOSE; Start 09/24/16 at 21: 00 Dextrose (D50w Syringe) 25 ml Q15M PRN IV DECREASED GLUCOSE; Start 09/24/16 at 21:00 Dextrose (D50w Syringe) 50 ml Q15M PRN IV DECREASED GLUCOSE; Start 09/24/16 at 21:00 Glucagon (Glucagen) 1 mg Q15M PRN IM DECREASED GLUCOSE; Start 09/24/16 at 21:00 Glucose 15 gm 15 gm Q15M PRN BUCCAL DECREASED GLUCOSE; Start 09/24/16 at 21:00 Acetaminophen (Ofirmev 1000mg/ 100ml Iv) 100 ml @ 400 mls/hr Q6H PRN IVPB FEVER Last administered on 09/29/16 20:27; Admin Dose 400 MLS/HR; Start at 22:00 Mupirocin (Bactroban) 1 applic BID TOP Last administered on 10/03/16 09:03; Admin Dose 1 APPLIC; Start 09/25/16 at 21:00 Vancomycin HCl (Vancomycin Oral Syringe) 250 mg Q6 PO Last administered on 10/03 18:21; Admin Dose 250 MG; Start 09/26/16 at 18:00 Lactobacillus Acidoph/Bulgaricus (Floranex) 1 tab TID PO Last administered on 14:22; Admin Dose 1 TAB; Start 09/26/16 at 21:00 Atorvastatin Calcium (Lipitor) 20 mg QHS GTB Last administered on 10/02/16 20: 53; Admin Dose 20 MG; Start 09/28/16 at 21:00 Finasteride (Proscar) 5 mg DAILY GTB Last administered on 10/03/16 08:55; Admin Dose 5 MG; Start 09/29/16 at 09:00 Levothyroxine Sodium (Synthroid) 25 mcg DAILY@06 GTB Last administered on 05:15; Admin Dose 25 MCG; Start 09/29/16 at 06:00 Multivitamins Therapeutic (Theragran) 1 tab DAILY GTB Last administered on 10/03 08:54; Admin Dose 1 TAB; Start 09/29/16 at 09:00 Zinc Sulfate (Zinc Sulfate) 220 mg DAILY NGT Last administered on 10/03/16 08: 54; Admin Dose 220 MG; Start 09/29/16 at 09:00 Insulin Aspart (Novolog Insulin Pen) NOVOLOG *MILD* ALGORI... Q6 SC ; Start at 18:00 Ondansetron HCl (Zofran Inj) 4 mg Q6H PRN IV NAUSEA AND/OR VOMITING; Start at 07:30 Heparin Sodium (Porcine) (Heparin (5000 Units/0.5 ml)) 5,000 unit BID SC Last administered on 10/03/16 09:00; Admin Dose 5,000 UNIT; Start 09/29/16 at 09:00 Linezolid (Zyvox) 600 mg BID PO Last administered on 10/03/16 08:55; Admin Dose 600 MG; Start 09/30/16 at 11:30 Acetaminophen 650 mg 650 mg Q6H PRN GTB PAIN AND OR ELEVATED TEMP Last administered on 10/02/16 22:59; Admin Dose 650 MG; Start 10/02/16 at 08:00 Colistimethate Sodium 150 mg/ Sodium Chloride 100 ml @ 200 mls/hr Q24H IVPB Last administered on 10/03/16 09:51; Admin Dose 200 MLS/HR; Start 10/03/16 at 10:00 Metronidazole (Flagyl 500 Mg (Pmx)) 100 ml @ 100 mls/hr Q8 IVPB Last administered on 10/03/16 14:23; Admin Dose 100 MLS/HR; Start 10/02/16 at 14:00 SCOTT RODRIGUES MD Oct 03, 2016 21:08
[2016-10-03] MEDS: ATORVASTATIN 20 MG TAB GTB SCH (21:21)
[2016-10-04] VITALS (32 sets, daily range): BP systolic 91–118; BP diastolic 42–62; PULSE 99–110; RESP 17–32
[2016-10-04] MEDS: IPRATROPIUM (HFA) 12.9 GM INHALER INH SCH ×4 (01:17→19:44)
[2016-10-04] MEDS: ALBUTEROL HFA 8 GM INHALER INH SCH ×4 (01:17→19:44)
[2016-10-04] MEDS: VANCOMYCIN HCL 250 MG/5ML POSYG PO SCH ×5 (01:22→23:47)
[2016-10-04] MEDS: ACETAMINOPHEN 650MG/20.3ML CUP GTB PRN ×2 (05:09→21:27)
[2016-10-04] MEDS: PANTOPRAZOLE 40 MG INJ IV SCH ×2 (05:09→17:13)
[2016-10-04] MEDS: metroNIDAZOLE 500 MG/NS (PMX) 100 ML IVPB SCH ×3 (05:10→21:28)
[2016-10-04] MEDS: LEVOTHYROXINE 25 MCG TAB GTB SCH (05:10)
[2016-10-04] MEDS: INSULIN ASPART [NOVOLOG] 3 ML PEN SC SCH ×4 (05:52→17:13)
[2016-10-04 07:25] LABS: ADD SCAN DIFF NO
[2016-10-04 07:32] LABS: ABNORMAL IP MESSAGE 1; BASOPHILS % 0.1 % (0.0-2.0); EOSINOPHILS # 0.3 10^3/ul (0.0-0.5); EOSINOPHILS % 1.6 % (0.0-7.0); HEMATOCRIT 26.8 % (42.0-52.0); HEMOGLOBIN 7.6 g/dl (14.0-18.0); LYMPHOCYTES # 2.6 10^3/ul (0.8-2.9); MEAN CORPUSCULAR HEMOGLOBIN 24.1 pg (29.0-33.0); MEAN CORPUSCULAR HGB CONC 28.4 g/dl (32.0-37.0); MEAN CORPUSCULAR VOLUME 85.1 fl (82.0-101.0); MEAN PLATELET VOLUME 11.3 fl (7.4-10.4); MONOCYTE # 1.1 10^3/ul (0.3-0.9); MONOCYTES % 6.2 % (0.0-11.0); NEUTROPHIL # 13.3 10^3/ul (1.6-7.5); NEUTROPHILS % 76.5 % (39.0-77.0); PLATELET COUNT 523 10^3/UL (140-415); RED BLOOD COUNT 3.15 10^6/ul (4.70-6.10); RED CELL DISTRIBUTION WIDTH 20.6 % (11.5-14.5); WHITE BLOOD COUNT 17.4 10^3/ul (4.8-10.8)
[2016-10-04 07:50] LABS: POTASSIUM 3.5 mmol/L (3.5-5.1)
[2016-10-04 07:53] LABS: CALCIUM 7.9 mg/dl (8.4-10.2); CREATININE 1.42 mg/dl (0.61-1.24)
[2016-10-04] MEDS: ARTIFICIAL TEARS 15 ML OPH BOTH EYES SCH ×3 (09:39→20:28)
[2016-10-04] MEDS: ZINC SULFATE 220 MG CAP NGT SCH (09:39)
[2016-10-04] MEDS: LACTOBACILLUS CHEW TAB PO SCH ×3 (09:39→20:29)
[2016-10-04] MEDS: MULTIVITAMINS THERAPEUTIC TAB GTB SCH (09:39)
[2016-10-04] MEDS: FINASTERIDE 5 MG TAB GTB SCH (09:39)
[2016-10-04] MEDS: COLLAGENASE 30 GM TUBE TOP SCH (09:40)
[2016-10-04] MEDS: ZYVOX 600 MG TAB PO SCH ×2 (09:40→20:29)
[2016-10-04] MEDS: SODIUM HYPOCHLORITE 0.125% 473 ML BTL IRR SCH ×2 (09:40→21:00)
[2016-10-04] MEDS: MUPIROCIN 2% 22 GM OINT TOP SCH ×2 (09:40→20:28)
[2016-10-04] MEDS: HEPARIN 5,000 UNIT/0.5 ML VIAL SC SCH ×2 (09:52→20:42)
--- NOTE | 2016-10-04 11:09 | PN ---
DATE: PALLIATIVE CARE PROGRESS NOTE SUBJECTIVE: I have spoken to case management today and asked them to schedule an appointment with t he patient's family. The patient remains a FULL CODE. The family does not speak Turkish. We will need to have an Syriac or Libyan captain waiter. OBJECTIVE: VITAL SIGNS: Blood pressure 98/46, pulse of 100 and regular, respirations of 22, temperature 98.6 d egrees, 98% saturation on 30% FIO2. NEUROLOGICAL: He is moribund. He does not track me. He does not speak. 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 LABORATORY DATA: Today, white blood cell count is 17.4, hemoglobin is 7.6, hematocrit 26.8, platele t count of 523,000. Chemistries: Serum sodium 146, potassium 3.5, chloride 115, bicarbonate 22, BU N 66, creatinine 1.42. ASSESSMENT AND PLAN: Awaiting social work and case management to schedule a family conference soon, even over this upcoming week. Dictated By: SITA OCONNOR MD, LP/ELIZABETH Conf#: [id number] DID#: [id number]
[2016-10-04] MEDS: COLISTIMETHATE 150 MG in SOD CHLORIDE 0.9% 100 ML IVPB SCH (11:20)
[2016-10-04] MEDS: PIPER-TAZO 3.375 GM IV (PMX) 100 ML IVPB SCH ×2 (11:58→21:28)
[2016-10-04] MEDS ORDERED: PIPER-TAZO 3.375 GM IV (PMX) 100 ML IVPB SCH (12:00)
[2016-10-04] MEDS ORDERED: D5W + KCL 20 MEQ 1,000 ML IV SCH (12:30)
--- NOTE | 2016-10-04 13:23 | CONS ---
Date/Time of Note Date/Time of Note DATE: 10/04/16 TIME: 13:22 Assessment/Plan Assessment/Plan Additional Assessment/Plan Severe septic shock Preserved ejection fraction Moderate aortic stenosis Respiratory failure Coronary artery disease Anemia Acute kidney injury, improving -Blood pressure trend remains stable. Fluid management as per our nephrology colleagues. Would continue to hold any antihypertensives at the current time given labile blood pressure. Antibiotics as per infectious disease. No new cardiac orders at the current time Consultation Date/Type/Reason Admit Date/Time Sep 24, 2016 at 03:19 Initial Consult Date 09/24/16 Type of Consultation: cv Referring Provider: ROULA DEL TORO 24 HR Interval Summary Free Text/Dictation Patient seen and examined Exam/Review of Systems Vital Signs Vitals Vital Signs Date Time Temp Pulse Resp B/P Pulse Ox O2 Delivery O2 Flow Rate FiO2 10/04/16 12:15 105 10/04/16 11:10 25 98 30 10/04/16 10:57 98.4 101/51 10/04/16 10:00 Mechanical Ventilator Intake and Output 10/03/16 10/03/16 10/04/16 15:00 23:00 07:00 Intake Total 100 ml 820 ml 786 ml Output Total 1000 ml 1000 ml Balance 100 ml -180 ml -214 ml Exam Awake, no apparent distress Head: normocephalic Neck: supple Respiratory: other (Coarse breath sounds bilaterally, no wheezing) Cardiovascular: other (S1-S2 heard), regular rate and rhythm Gastrointestinal: bowel sounds, non-tender, other, soft Extremities: edema, other (No cyanosis) Results Result Diagram: 10/04/16 0632 10/04/16 0632 Results 24 hrs Laboratory Tests Test 10/03/16 17:08 10/04/16 01:19 10/04/16 05:50 10/04/16 06:32 Bedside Glucose 90 99 92 White Blood Count 17.4 #H Red Blood Count 3.15 L Hemoglobin 7.6 L Hematocrit 26.8 L Mean Corpuscular Volume 85.1 Mean Corpuscular Hemoglobin 24.1 L Mean Corpuscular Hemoglobin Concent 28.4 L Red Cell Distribution Width 20.6 H Platelet Count 523 H Mean Platelet Volume 11.3 H Neutrophils % 76.5 Lymphocytes % 15.0 Monocytes % 6.2 Eosinophils % 1.6 Basophils % 0.1 Nucleated Red Blood Cells % 0.0 Neutrophils # 13.3 H Lymphocytes # 2.6 Monocytes # 1.1 H Eosinophils # 0.3 Basophils # 0.0 Nucleated Red Blood Cells # 0.0 Sodium Level 146 H Potassium Level 3.5 Chloride Level 115 H Carbon Dioxide Level 22 Anion Gap 13 Blood Urea Nitrogen 66 H Creatinine 1.42 H Glucose Level 83 Calcium Level 7.9 L Test 10/04/16 11:28 Bedside Glucose 71 Medications Medications Current Medications Acetaminophen (Tylenol Supp) 650 mg Q4H PRN [place] PAIN LEVEL 1-3 OR FEVER; Start 09/24/16 at 03:00 Eye Lubricant (Artificial Tears Oph) 1 drop TID BOTH EYES Last administered on 10/04/16 13:12; Admin Dose 1 DROP; Start 09/24/16 at 09:00 Sodium Hypochlorite (Dakin'S (1/4 Strength)) 1 applic BID IRR Last administered on 10/04/16 09:40; Admin Dose 1 APPLIC; Start 09/24/16 at 21:00 Pantoprazole (Protonix Iv) 40 mg BID@06,18 IV Last administered on 10/04/16 05 :09; Admin Dose 40 MG; Start 09/24/16 at 18:00 Collagenase (Santyl) 1 applic DAILY TOP Last administered on 10/04/16 09:40; Admin Dose 1 APPLIC; Start 09/24/16 at 20:30 Miscellaneous Information 1 ea NOTE XX ; Start 09/24/16 at 21:00 Glucose (Glutose) 15 gm Q15M PRN PO DECREASED GLUCOSE; Start 09/24/16 at 21:00 Glucose (Glutose) 22.5 gm Q15M PRN PO DECREASED GLUCOSE; Start 09/24/16 at 21: 00 Dextrose (D50w Syringe) 25 ml Q15M PRN IV DECREASED GLUCOSE; Start 09/24/16 at 21:00 Dextrose (D50w Syringe) 50 ml Q15M PRN IV DECREASED GLUCOSE; Start 09/24/16 at 21:00 Glucagon (Glucagen) 1 mg Q15M PRN IM DECREASED GLUCOSE; Start 09/24/16 at 21:00 Glucose 15 gm 15 gm Q15M PRN BUCCAL DECREASED GLUCOSE; Start 09/24/16 at 21:00 Acetaminophen (Ofirmev 1000mg/ 100ml Iv) 100 ml @ 400 mls/hr Q6H PRN IVPB FEVER Last administered on 09/29/16 20:27; Admin Dose 400 MLS/HR; Start at 22:00 Mupirocin (Bactroban) 1 applic BID TOP Last administered on 10/04/16 09:40; Admin Dose 1 APPLIC; Start 09/25/16 at 21:00 Vancomycin HCl (Vancomycin Oral Syringe) 250 mg Q6 PO Last administered on 10/04 11:28; Admin Dose 250 MG; Start 09/26/16 at 18:00 Lactobacillus Acidoph/Bulgaricus (Floranex) 1 tab TID PO Last administered on 13:12; Admin Dose 1 TAB; Start 09/26/16 at 21:00 Atorvastatin Calcium (Lipitor) 20 mg QHS GTB Last administered on 10/03/16 21: 21; Admin Dose 20 MG; Start 09/28/16 at 21:00 Finasteride (Proscar) 5 mg DAILY GTB Last administered on 10/04/16 09:39; Admin Dose 5 MG; Start 09/29/16 at 09:00 Levothyroxine Sodium (Synthroid) 25 mcg DAILY@06 GTB Last administered on 05:10; Admin Dose 25 MCG; Start 09/29/16 at 06:00 Multivitamins Therapeutic (Theragran) 1 tab DAILY GTB Last administered on 10/04 09:39; Admin Dose 1 TAB; Start 09/29/16 at 09:00 Zinc Sulfate (Zinc Sulfate) 220 mg DAILY NGT Last administered on 10/04/16 09: 39; Admin Dose 220 MG; Start 09/29/16 at 09:00 Insulin Aspart (Novolog Insulin Pen) NOVOLOG *MILD* ALGORI... Q6 SC ; Start at 18:00 Ondansetron HCl (Zofran Inj) 4 mg Q6H PRN IV NAUSEA AND/OR VOMITING; Start at 07:30 Heparin Sodium (Porcine) (Heparin (5000 Units/0.5 ml)) 5,000 unit BID SC Last administered on 10/04/16 09:52; Admin Dose 5,000 UNIT; Start 09/29/16 at 09:00 Linezolid (Zyvox) 600 mg BID PO Last administered on 10/04/16 09:40; Admin Dose 600 MG; Start 09/30/16 at 11:30 Acetaminophen 650 mg 650 mg Q6H PRN GTB PAIN AND OR ELEVATED TEMP Last administered on 10/04/16 05:09; Admin Dose 650 MG; Start 10/02/16 at 08:00 Colistimethate Sodium 150 mg/ Sodium Chloride 100 ml @ 200 mls/hr Q24H IVPB Last administered on 10/04/16 11:20; Admin Dose 200 MLS/HR; Start 10/03/16 at 10:00 Metronidazole 100 ml @ 100 mls/hr Q8 IVPB Last administered on 10/04/16 13:12 ; Admin Dose 100 MLS/HR; Start 10/02/16 at 14:00 Piperacillin Sod/ Tazobactam Sod 100 ml @ 200 mls/hr Q8 IVPB Last administered on 10/04/16 11:58; Admin Dose 200 MLS/HR; Start 10/04/16 at 12:00 Potassium Chloride/Dextrose (D5W + KCl 20 Meq) 1,000 ml @ 70 mls/hr [id number] IV Last administered on 10/04/16 13:12; Admin Dose 70 MLS/HR; Start 10/04/16 at 12:30; Stop 10/05/16 at 02:47 Ryder Wild DO Oct 04, 2016 13:23
--- NOTE | 2016-10-04 13:50 | CONS ---
Date/Time of Note Date/Time of Note DATE: 10/04/16 TIME: 13:47 Consult Date/Type/Reason Admit Date/Time Sep 24, 2016 at 03:19 Initial Consult Date 09/24/16 Type of Consultation: pulmonary Ordering Provider: ROULA DEL TORO Subjective Patient stable no new events Objective Vital Signs Date Time Temp Pulse Resp B/P Pulse Ox O2 Delivery O2 Flow Rate FiO2 10/04/16 12:15 105 10/04/16 11:10 25 98 30 10/04/16 10:57 98.4 101/51 10/04/16 10:00 Mechanical Ventilator Intake and Output 10/03/16 10/03/16 10/04/16 15:00 23:00 07:00 Intake Total 100 ml 820 ml 786 ml Output Total 1000 ml 1000 ml Balance 100 ml -180 ml -214 ml Exam PHYSICAL EXAMINATION GENERAL: Elderly gentleman, continues mechanical ventilation via tracheostomy VITAL SIGNS: see below. HEENT: Pupils equal, round, and reactive to light. Tracheostomy site clean and intact. CARDIAC: S1, S2, 2 systolic ejection murmur CHEST: Diminished air entry bilaterally. ABDOMEN: Mildly distended. Bowel sounds present EXTREMITIES: No cyanosis, clubbing edema +2 NEUROLOGIC: Unable to assess Results/Medications Result Diagram: 10/04/16 0632 10/04/16 0632 Results 24 hrs Laboratory Tests Test 10/03/16 17:08 10/04/16 01:19 10/04/16 05:50 10/04/16 06:32 Bedside Glucose 90 99 92 White Blood Count 17.4 #H Red Blood Count 3.15 L Hemoglobin 7.6 L Hematocrit 26.8 L Mean Corpuscular Volume 85.1 Mean Corpuscular Hemoglobin 24.1 L Mean Corpuscular Hemoglobin Concent 28.4 L Red Cell Distribution Width 20.6 H Platelet Count 523 H Mean Platelet Volume 11.3 H Neutrophils % 76.5 Lymphocytes % 15.0 Monocytes % 6.2 Eosinophils % 1.6 Basophils % 0.1 Nucleated Red Blood Cells % 0.0 Neutrophils # 13.3 H Lymphocytes # 2.6 Monocytes # 1.1 H Eosinophils # 0.3 Basophils # 0.0 Nucleated Red Blood Cells # 0.0 Sodium Level 146 H Potassium Level 3.5 Chloride Level 115 H Carbon Dioxide Level 22 Anion Gap 13 Blood Urea Nitrogen 66 H Creatinine 1.42 H Glucose Level 83 Calcium Level 7.9 L Test 10/04/16 11:28 Bedside Glucose 71 Medications Current Medications Acetaminophen (Tylenol Supp) 650 mg Q4H PRN [place] PAIN LEVEL 1-3 OR FEVER; Start 09/24/16 at 03:00 Eye Lubricant (Artificial Tears Oph) 1 drop TID BOTH EYES Last administered on 10/04/16 13:12; Admin Dose 1 DROP; Start 09/24/16 at 09:00 Sodium Hypochlorite (Dakin'S (1/4 Strength)) 1 applic BID IRR Last administered on 10/04/16 09:40; Admin Dose 1 APPLIC; Start 09/24/16 at 21:00 Pantoprazole (Protonix Iv) 40 mg BID@06,18 IV Last administered on 10/04/16 05 :09; Admin Dose 40 MG; Start 09/24/16 at 18:00 Collagenase (Santyl) 1 applic DAILY TOP Last administered on 10/04/16 09:40; Admin Dose 1 APPLIC; Start 09/24/16 at 20:30 Miscellaneous Information 1 ea NOTE XX ; Start 09/24/16 at 21:00 Glucose (Glutose) 15 gm Q15M PRN PO DECREASED GLUCOSE; Start 09/24/16 at 21:00 Glucose (Glutose) 22.5 gm Q15M PRN PO DECREASED GLUCOSE; Start 09/24/16 at 21: 00 Dextrose (D50w Syringe) 25 ml Q15M PRN IV DECREASED GLUCOSE; Start 09/24/16 at 21:00 Dextrose (D50w Syringe) 50 ml Q15M PRN IV DECREASED GLUCOSE; Start 09/24/16 at 21:00 Glucagon (Glucagen) 1 mg Q15M PRN IM DECREASED GLUCOSE; Start 09/24/16 at 21:00 Glucose 15 gm 15 gm Q15M PRN BUCCAL DECREASED GLUCOSE; Start 09/24/16 at 21:00 Acetaminophen (Ofirmev 1000mg/ 100ml Iv) 100 ml @ 400 mls/hr Q6H PRN IVPB FEVER Last administered on 09/29/16 20:27; Admin Dose 400 MLS/HR; Start at 22:00 Mupirocin (Bactroban) 1 applic BID TOP Last administered on 10/04/16 09:40; Admin Dose 1 APPLIC; Start 09/25/16 at 21:00 Vancomycin HCl (Vancomycin Oral Syringe) 250 mg Q6 PO Last administered on 10/04 11:28; Admin Dose 250 MG; Start 09/26/16 at 18:00 Lactobacillus Acidoph/Bulgaricus (Floranex) 1 tab TID PO Last administered on 13:12; Admin Dose 1 TAB; Start 09/26/16 at 21:00 Atorvastatin Calcium (Lipitor) 20 mg QHS GTB Last administered on 10/03/16 21: 21; Admin Dose 20 MG; Start 09/28/16 at 21:00 Finasteride (Proscar) 5 mg DAILY GTB Last administered on 10/04/16 09:39; Admin Dose 5 MG; Start 09/29/16 at 09:00 Levothyroxine Sodium (Synthroid) 25 mcg DAILY@06 GTB Last administered on 05:10; Admin Dose 25 MCG; Start 09/29/16 at 06:00 Multivitamins Therapeutic (Theragran) 1 tab DAILY GTB Last administered on 10/04 09:39; Admin Dose 1 TAB; Start 09/29/16 at 09:00 Zinc Sulfate (Zinc Sulfate) 220 mg DAILY NGT Last administered on 10/04/16 09: 39; Admin Dose 220 MG; Start 09/29/16 at 09:00 Insulin Aspart (Novolog Insulin Pen) NOVOLOG *MILD* ALGORI... Q6 SC ; Start at 18:00 Ondansetron HCl (Zofran Inj) 4 mg Q6H PRN IV NAUSEA AND/OR VOMITING; Start at 07:30 Heparin Sodium (Porcine) (Heparin (5000 Units/0.5 ml)) 5,000 unit BID SC Last administered on 10/04/16 09:52; Admin Dose 5,000 UNIT; Start 09/29/16 at 09:00 Linezolid (Zyvox) 600 mg BID PO Last administered on 10/04/16 09:40; Admin Dose 600 MG; Start 09/30/16 at 11:30 Acetaminophen 650 mg 650 mg Q6H PRN GTB PAIN AND OR ELEVATED TEMP Last administered on 10/04/16 05:09; Admin Dose 650 MG; Start 10/02/16 at 08:00 Colistimethate Sodium 150 mg/ Sodium Chloride 100 ml @ 200 mls/hr Q24H IVPB Last administered on 10/04/16 11:20; Admin Dose 200 MLS/HR; Start 10/03/16 at 10:00 Metronidazole 100 ml @ 100 mls/hr Q8 IVPB Last administered on 10/04/16 13:12 ; Admin Dose 100 MLS/HR; Start 10/02/16 at 14:00 Piperacillin Sod/ Tazobactam Sod 100 ml @ 200 mls/hr Q8 IVPB Last administered on 10/04/16 11:58; Admin Dose 200 MLS/HR; Start 10/04/16 at 12:00 Potassium Chloride/Dextrose (D5W + KCl 20 Meq) 1,000 ml @ 70 mls/hr [id number] IV Last administered on 10/04/16 13:12; Admin Dose 70 MLS/HR; Start 10/04/16 at 12:30; Stop 10/05/16 at 02:47 Assessment/Plan Chief Complaint/Hosp Course Assessment 1. Status post Septic shock likely secondary to pneumonia 2. Significant anemia requiring blood transfusions 3. Vent dependent respiratory failure 4. Dysphagia with G-tube 5. Hypernatremia 6. History of renal insufficiency Plan 1. Continue mechanical ventilation 2. Continue antibiotics per infectious diseases 3. Monitor H&H 4. Continue renal recommendations 5. Transfusion prbc. Disposition Palliative care consult Problems: ABBI DELCID MD, [facility] Oct 04, 2016 13:50
--- NOTE | 2016-10-04 14:07 | PN ---
Date/Time of Note Date/Time of Note DATE: 10/04/16 TIME: 14:03 Assessment/Plan VTE Prophylaxis VTE Prophylaxis Intervention: SCD's Assessment/Plan Chief Complaint/Hosp Course 1. Severe sepsis with septic shock 2/2 Decub ulcers and/or UTI and/or PNA: stable, off pressor support 2. Severe hypernatremia 2/2 dehydration: improving 3. Acute renal failure 2/2 ATN from dehydration: improving 4. Ecoli bacteremia and UTI : 5. Multifocal pneumonia (E coli / A baumanii) 6. 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 Hypochromic microcytic Iron deficiency anemia likely 2/2 chronic Bleed 8. Hypokalemia: resolved 9. Probable GI bleed (Coffee ground drainage from G tube) 10. Severe multiple pressure ulcers infected with multiple organisms including MRSA 11. Hx of severe C-diff/ pseudomembranous colitis 12. Hypothyroidism with good control: Levothyroxine 13. Chronic Dysphagia 2/2 encephalopathy 14. Chronic resp failure ventilator dependent Via tracheostomy PLAN: * Abx changed to Colistin and Zyvox, Flagyl also added, cont Vanco PO * Monitor fever curve/ f/u repeat blood cultures / Change snider / if fever persists, d/w surgery re: possible debridement * Complete 5 days of Iv iron supplementation and the switch to oral * Pt still having fevers and WBC increasing, not stable for DC * IVF managed per Nephro and patient has been restarted on tube feeds till family gives consent for EGD * With degree of sores, Patient may require more aggressive intervention (? diverting colostomy) however will defer to surgery. Patient however is an extremely poor candidate and with comorbidities and baseline encephalopathy is more appropriate for hospice care instead / Palliative care consulted. PROPHYLAXIS: Start low dose heparin and monitor for bleeding / SCDS / Protonix Problems: Subjective 24 Hr Interval Summary Subjective hx not possible: pt non-verbal Exam/Review of Systems Vital Signs Vitals Vital Signs Date Time Temp Pulse Resp B/P Pulse Ox O2 Delivery O2 Flow Rate FiO2 10/04/16 12:15 105 10/04/16 11:10 25 98 30 10/04/16 10:57 98.4 101/51 10/04/16 10:00 Mechanical Ventilator Intake and Output 10/03/16 10/03/1617 15:00 23:00 07:00 Intake Total 100 ml 820 ml 786 ml Output Total 1000 ml 1000 ml Balance 100 ml -180 ml -214 ml Exam Constitutional: non-verbal Respiratory: clear to auscultation Cardiovascular: regular rate and rhythm Gastrointestinal: soft, No distended Musculoskeletal: nl extremities to inspection Results Result Diagram: 10/04/16 0632 10/04/16 0632 Results 24 hrs Laboratory Tests Test 10/03/16 17:08 10/04/16 01:19 10/04/16 05:50 10/04/16 06:32 Bedside Glucose 90 99 92 White Blood Count 17.4 #H Red Blood Count 3.15 L Hemoglobin 7.6 L Hematocrit 26.8 L Mean Corpuscular Volume 85.1 Mean Corpuscular Hemoglobin 24.1 L Mean Corpuscular Hemoglobin Concent 28.4 L Red Cell Distribution Width 20.6 H Platelet Count 523 H Mean Platelet Volume 11.3 H Neutrophils % 76.5 Lymphocytes % 15.0 Monocytes % 6.2 Eosinophils % 1.6 Basophils % 0.1 Nucleated Red Blood Cells % 0.0 Neutrophils # 13.3 H Lymphocytes # 2.6 Monocytes # 1.1 H Eosinophils # 0.3 Basophils # 0.0 Nucleated Red Blood Cells # 0.0 Sodium Level 146 H Potassium Level 3.5 Chloride Level 115 H Carbon Dioxide Level 22 Anion Gap 13 Blood Urea Nitrogen 66 H Creatinine 1.42 H Glucose Level 83 Calcium Level 7.9 L Test 10/04/16 11:28 Bedside Glucose 71 Medications Medications Current Medications Acetaminophen (Tylenol Supp) 650 mg Q4H PRN [place] PAIN LEVEL 1-3 OR FEVER; Start 09/24/16 at 03:00 Eye Lubricant (Artificial Tears Oph) 1 drop TID BOTH EYES Last administered on 10/04/16 13:12; Admin Dose 1 DROP; Start 09/24/16 at 09:00 Sodium Hypochlorite (Dakin'S (1/4 Strength)) 1 applic BID IRR Last administered on 10/04/16 09:40; Admin Dose 1 APPLIC; Start 09/24/16 at 21:00 Pantoprazole (Protonix Iv) 40 mg BID@,18 IV Last administered on 10/04/16 05 :09; Admin Dose 40 MG; Start 09/24/16 at 18:00 Collagenase (Santyl) 1 applic DAILY TOP Last administered on 10/04/16 09:40; Admin Dose 1 APPLIC; Start 09/24/16 at 20:30 Miscellaneous Information 1 ea NOTE XX ; Start 09/24/16 at 21:00 Glucose (Glutose) 15 gm Q15M PRN PO DECREASED GLUCOSE; Start 09/24/16 at 21:00 Glucose (Glutose) 22.5 gm Q15M PRN PO DECREASED GLUCOSE; Start 09/24/16 at 21: 00 Dextrose (D50w Syringe) 25 ml Q15M PRN IV DECREASED GLUCOSE; Start 09/24/16 at 21:00 Dextrose (D50w Syringe) 50 ml Q15M PRN IV DECREASED GLUCOSE; Start 09/24/16 at 21:00 Glucagon (Glucagen) 1 mg Q15M PRN IM DECREASED GLUCOSE; Start 09/24/16 at 21:00 Glucose 15 gm 15 gm Q15M PRN BUCCAL DECREASED GLUCOSE; Start 09/24/16 at 21:00 Acetaminophen (Ofirmev 1000mg/ 100ml Iv) 100 ml @ 400 mls/hr Q6H PRN IVPB FEVER Last administered on 09/29/16 20:27; Admin Dose 400 MLS/HR; Start at 22:00 Mupirocin (Bactroban) 1 applic BID TOP Last administered on 10/04/16 09:40; Admin Dose 1 APPLIC; Start 09/25/16 at 21:00 Vancomycin HCl (Vancomycin Oral Syringe) 250 mg Q6 PO Last administered on 10/04 11:28; Admin Dose 250 MG; Start 09/26/16 at 18:00 Lactobacillus Acidoph/Bulgaricus (Floranex) 1 tab TID PO Last administered on 13:12; Admin Dose 1 TAB; Start 09/26/16 at 21:00 Atorvastatin Calcium (Lipitor) 20 mg QHS GTB Last administered on 10/03/16 21: 21; Admin Dose 20 MG; Start 09/28/16 at 21:00 Finasteride (Proscar) 5 mg DAILY GTB Last administered on 10/04/16 09:39; Admin Dose 5 MG; Start 09/29/16 at 09:00 Levothyroxine Sodium (Synthroid) 25 mcg DAILY@06 GTB Last administered on 05:10; Admin Dose 25 MCG; Start 09/29/16 at 06:00 Multivitamins Therapeutic (Theragran) 1 tab DAILY GTB Last administered on 10/04 09:39; Admin Dose 1 TAB; Start 09/29/16 at 09:00 Zinc Sulfate (Zinc Sulfate) 220 mg DAILY NGT Last administered on 10/04/16 09: 39; Admin Dose 220 MG; Start 09/29/16 at 09:00 Insulin Aspart (Novolog Insulin Pen) NOVOLOG *MILD* ALGORI... Q6 SC ; Start at 18:00 Ondansetron HCl (Zofran Inj) 4 mg Q6H PRN IV NAUSEA AND/OR VOMITING; Start at 07:30 Heparin Sodium (Porcine) (Heparin (5000 Units/0.5 ml)) 5,000 unit BID SC Last administered on 10/04/16 09:52; Admin Dose 5,000 UNIT; Start 09/29/16 at 09:00 Linezolid (Zyvox) 600 mg BID PO Last administered on 10/04/16 09:40; Admin Dose 600 MG; Start 09/30/16 at 11:30 Acetaminophen 650 mg 650 mg Q6H PRN GTB PAIN AND OR ELEVATED TEMP Last administered on 10/04/16 05:09; Admin Dose 650 MG; Start 10/02/16 at 08:00 Colistimethate Sodium 150 mg/ Sodium Chloride 100 ml @ 200 mls/hr Q24H IVPB Last administered on 10/04/16 11:20; Admin Dose 200 MLS/HR; Start 10/03/16 at 10:00 Metronidazole 100 ml @ 100 mls/hr Q8 IVPB Last administered on 10/04/16 13:12 ; Admin Dose 100 MLS/HR; Start 10/02/16 at 14:00 Piperacillin Sod/ Tazobactam Sod 100 ml @ 200 mls/hr Q8 IVPB Last administered on 10/04/16 11:58; Admin Dose 200 MLS/HR; Start 10/04/16 at 12:00 Potassium Chloride/Dextrose (D5W + KCl 20 Meq) 1,000 ml @ 70 mls/hr [id number] IV Last administered on 3/31/17at 13:12; Admin Dose 70 MLS/HR; Start 10/04/16 at 12:30; Stop 10/05/16 at 02:47 KEVYN GARNETT Oct 04, 2016 14:07
--- NOTE | 2016-10-04 15:35 | CONS ---
Date/Time of Note Date/Time of Note DATE: 10/04/16 TIME: 15:32 Assessment/Plan Assessment/Plan Chief Complaint/Hosp Course SUBJECTIVE: No acute events overnight. Spiked fever last night, nad. at bedside MICROBIOLOGY: Blood culture on 09/28/2016 remains negative. ANTIMICROBIALS: The patient is on: 1. Colistin 2. Flagyl. 3. Zyvox. 4. Oral vancomycin. INDWELLINGS: Trach, PEG, Cee. PHYSICAL EXAMINATION: GENERAL: This is a chronically ill-appearing, elderly man who is awake, noncommunicative, in no distress. HEENT: Head atraumatic, normocephalic. Sclerae anicteric. Buccal mucosa dry. NECK: Supple. Tracheostomy present. CHEST: Rise symmetrical. Breath sounds diminished to bases. HEART: S1, S2. ABDOMEN: Soft, bowel sounds present. EXTREMITIES: Without cyanosis. Trace edema. ASSESSMENT: 1. Sepsis status post shock. 2. Escherichia coli and Bacteroides fragilis bacteremia on admission. 3. Escherichia coli urinary tract infection. 4. Methicillin-resistant Staphylococcus aureus nares colonization. 5. Multiple decubitus with wound culture growing multi-drug resistant organisms. 6. Chronic respiratory failure. 7. History of cerebrovascular accident. PLAN: Clinically unchanged with ongoing fevers and leukocytosis, bld cx neg, will restart Zosyn DW staff/ at bedside Chris Mullins Problems: Consultation Date/Type/Reason Admit Date/Time Sep 24, 2016 at 03:19 Initial Consult Date 09/24/16 Type of Consultation: id Referring Provider: ROULA DEL TORO Exam/Review of Systems Vital Signs Vitals Vital Signs Date Time Temp Pulse Resp B/P Pulse Ox O2 Delivery O2 Flow Rate FiO2 10/04/16 14:00 97.6 106 96/45 96 Mechanical Ventilator 10/04/16 13:15 25 35 Intake and Output 10/03/16 10/03/16 10/04/16 15:00 23:00 07:00 Intake Total 100 ml 820 ml 786 ml Output Total 1000 ml 1000 ml Balance 100 ml -180 ml -214 ml Results Result Diagram: 10/04/16 0632 10/04/16 0632 Results 24 hrs Laboratory Tests Test 10/03/16 17:08 10/04/16 01:19 10/04/16 05:50 10/04/16 06:32 Bedside Glucose 90 99 92 White Blood Count 17.4 #H Red Blood Count 3.15 L Hemoglobin 7.6 L Hematocrit 26.8 L Mean Corpuscular Volume 85.1 Mean Corpuscular Hemoglobin 24.1 L Mean Corpuscular Hemoglobin Concent 28.4 L Red Cell Distribution Width 20.6 H Platelet Count 523 H Mean Platelet Volume 11.3 H Neutrophils % 76.5 Lymphocytes % 15.0 Monocytes % 6.2 Eosinophils % 1.6 Basophils % 0.1 Nucleated Red Blood Cells % 0.0 Neutrophils # 13.3 H Lymphocytes # 2.6 Monocytes # 1.1 H Eosinophils # 0.3 Basophils # 0.0 Nucleated Red Blood Cells # 0.0 Sodium Level 146 H Potassium Level 3.5 Chloride Level 115 H Carbon Dioxide Level 22 Anion Gap 13 Blood Urea Nitrogen 66 H Creatinine 1.42 H Glucose Level 83 Calcium Level 7.9 L Test 10/04/16 11:28 Bedside Glucose 71 Medications Medications Current Medications Acetaminophen (Tylenol Supp) 650 mg Q4H PRN [place] PAIN LEVEL 1-3 OR FEVER; Start 09/24/16 at 03:00 Eye Lubricant (Artificial Tears Oph) 1 drop TID BOTH EYES Last administered on 10/04/16 13:12; Admin Dose 1 DROP; Start 09/24/16 at 09:00 Sodium Hypochlorite (Dakin'S (1/4 Strength)) 1 applic BID IRR Last administered on 10/04/16 09:40; Admin Dose 1 APPLIC; Start 09/24/16 at 21:00 Pantoprazole (Protonix Iv) 40 mg BID@06,18 IV Last administered on 10/04/16 05 :09; Admin Dose 40 MG; Start 09/24/16 at 18:00 Collagenase (Santyl) 1 applic DAILY TOP Last administered on 10/04/16 09:40; Admin Dose 1 APPLIC; Start 09/24/16 at 20:30 Miscellaneous Information 1 ea NOTE XX ; Start 09/24/16 at 21:00 Glucose (Glutose) 15 gm Q15M PRN PO DECREASED GLUCOSE; Start 09/24/16 at 21:00 Glucose (Glutose) 22.5 gm Q15M PRN PO DECREASED GLUCOSE; Start 09/24/16 at 21: 00 Dextrose (D50w Syringe) 25 ml Q15M PRN IV DECREASED GLUCOSE; Start 09/24/16 at 21:00 Dextrose (D50w Syringe) 50 ml Q15M PRN IV DECREASED GLUCOSE; Start 09/24/16 at 21:00 Glucagon (Glucagen) 1 mg Q15M PRN IM DECREASED GLUCOSE; Start 09/24/16 at 21:00 Glucose 15 gm 15 gm Q15M PRN BUCCAL DECREASED GLUCOSE; Start 09/24/16 at 21:00 Acetaminophen (Ofirmev 1000mg/ 100ml Iv) 100 ml @ 400 mls/hr Q6H PRN IVPB FEVER Last administered on 09/29/16 20:27; Admin Dose 400 MLS/HR; Start at 22:00 Mupirocin (Bactroban) 1 applic BID TOP Last administered on 10/04/16 09:40; Admin Dose 1 APPLIC; Start 09/25/16 at 21:00 Vancomycin HCl (Vancomycin Oral Syringe) 250 mg Q6 PO Last administered on 10/04 11:28; Admin Dose 250 MG; Start 09/26/16 at 18:00 Lactobacillus Acidoph/Bulgaricus (Floranex) 1 tab TID PO Last administered on 13:12; Admin Dose 1 TAB; Start 09/26/16 at 21:00 Atorvastatin Calcium (Lipitor) 20 mg QHS GTB Last administered on 10/03/16 21: 21; Admin Dose 20 MG; Start 09/28/16 at 21:00 Finasteride (Proscar) 5 mg DAILY GTB Last administered on 10/04/16 09:39; Admin Dose 5 MG; Start 09/29/16 at 09:00 Levothyroxine Sodium (Synthroid) 25 mcg DAILY@06 GTB Last administered on 05:10; Admin Dose 25 MCG; Start 09/29/16 at 06:00 Multivitamins Therapeutic (Theragran) 1 tab DAILY GTB Last administered on 10/04 09:39; Admin Dose 1 TAB; Start 09/29/16 at 09:00 Zinc Sulfate (Zinc Sulfate) 220 mg DAILY NGT Last administered on 10/04/16 09: 39; Admin Dose 220 MG; Start 09/29/16 at 09:00 Insulin Aspart (Novolog Insulin Pen) NOVOLOG *MILD* ALGORI... Q6 SC ; Start at 18:00 Ondansetron HCl (Zofran Inj) 4 mg Q6H PRN IV NAUSEA AND/OR VOMITING; Start at 07:30 Heparin Sodium (Porcine) (Heparin (5000 Units/0.5 ml)) 5,000 unit BID SC Last administered on 10/04/16 09:52; Admin Dose 5,000 UNIT; Start 09/29/16 at 09:00 Linezolid (Zyvox) 600 mg BID PO Last administered on 10/04/16 09:40; Admin Dose 600 MG; Start 09/30/16 at 11:30 Acetaminophen 650 mg 650 mg Q6H PRN GTB PAIN AND OR ELEVATED TEMP Last administered on 10/04/16 05:09; Admin Dose 650 MG; Start 10/02/16 at 08:00 Colistimethate Sodium 150 mg/ Sodium Chloride 100 ml @ 200 mls/hr Q24H IVPB Last administered on 10/04/16 11:20; Admin Dose 200 MLS/HR; Start 10/03/16 at 10:00 Metronidazole 100 ml @ 100 mls/hr Q8 IVPB Last administered on 10/04/16 13:12 ; Admin Dose 100 MLS/HR; Start 10/02/16 at 14:00 Piperacillin Sod/ Tazobactam Sod 100 ml @ 200 mls/hr Q8 IVPB Last administered on 10/04/16 11:58; Admin Dose 200 MLS/HR; Start 10/04/16 at 12:00 Potassium Chloride/Dextrose (D5W + KCl 20 Meq) 1,000 ml @ 70 mls/hr [id number] IV Last administered on 10/04/16 13:12; Admin Dose 70 MLS/HR; Start 10/04/16 at 12:30; Stop 10/05/16 at 02:47 CHRISTOPHER MCDONOUGH NP Oct 04, 2016 15:35
--- NOTE | 2016-10-04 15:38 | CONS ---
Date/Time of Note Date/Time of Note DATE: 10/04/16 TIME: 15:35 Assessment/Plan Assessment/Plan Additional Assessment/Plan 1. Acute kidney injury on chronic kidney disease. This is likely secondary to severe prerenal azotemia causing ischemic acute tubular necrosis. 2. Severe hyponatremia with a sodium of 165 - now improved with D5 W 3. Contraction metabolic alkalosis with a bicarbonate of 40.- improved 4. Septic shock with lactic acid of 8.7 secondary to UTI 5. History of chronic respiratory failure, status post tracheostomy, on ventilator. 6. History of G-tube. 7. Poor mental status due to the previous cerebrovascular accident. 8. History of dementia. 9. History of hypertension. PLAN: Na trended up, Cr bumped up also, will give IVF D5 W with 20mQ KCL at 70cc/hr x 1 liter then we will reassess his AM labs IV abx for sepsis expecting BUN to slowly improve good urine output will follow up Consultation Date/Type/Reason Admit Date/Time Sep 24, 2016 at 03:19 Initial Consult Date 09/24/16 Type of Consultation: NEPHROLOGY Referring Provider: ROULA DEL TORO Exam/Review of Systems Vital Signs Vitals Vital Signs Date Time Temp Pulse Resp B/P Pulse Ox O2 Delivery O2 Flow Rate FiO2 10/04/16 14:00 97.6 106 96/45 96 Mechanical Ventilator 10/04/16 13:15 25 35 Intake and Output 10/03/16 10/03/16 10/04/16 15:00 23:00 07:00 Intake Total 100 ml 820 ml 786 ml Output Total 1000 ml 1000 ml Balance 100 ml -180 ml -214 ml Exam GENERAL: noacute distress NECK: Trach -> Secure to Vent CHEST: Equal chest rise bilaterally, without dyspnea on observation , no wheezing/ HEART: S1 S2 RRR no murmur ABDOMEN: Soft/peg EXTREMITIES: Warm SKIN: See hard chart skin assessment Results Result Diagram: 10/04/16 0632 10/04/16 0632 Results 24 hrs Laboratory Tests Test 10/03/16 17:08 10/04/16 01:19 10/04/16 05:50 10/04/16 06:32 Bedside Glucose 90 99 92 White Blood Count 17.4 #H Red Blood Count 3.15 L Hemoglobin 7.6 L Hematocrit 26.8 L Mean Corpuscular Volume 85.1 Mean Corpuscular Hemoglobin 24.1 L Mean Corpuscular Hemoglobin Concent 28.4 L Red Cell Distribution Width 20.6 H Platelet Count 523 H Mean Platelet Volume 11.3 H Neutrophils % 76.5 Lymphocytes % 15.0 Monocytes % 6.2 Eosinophils % 1.6 Basophils % 0.1 Nucleated Red Blood Cells % 0.0 Neutrophils # 13.3 H Lymphocytes # 2.6 Monocytes # 1.1 H Eosinophils # 0.3 Basophils # 0.0 Nucleated Red Blood Cells # 0.0 Sodium Level 146 H Potassium Level 3.5 Chloride Level 115 H Carbon Dioxide Level 22 Anion Gap 13 Blood Urea Nitrogen 66 H Creatinine 1.42 H Glucose Level 83 Calcium Level 7.9 L Test 10/04/16 11:28 Bedside Glucose 71 Medications Medications Current Medications Acetaminophen (Tylenol Supp) 650 mg Q4H PRN LA PAIN LEVEL 1-3 OR FEVER; Start 09/24/16 at 03:00 Eye Lubricant (Artificial Tears Oph) 1 drop TID BOTH EYES Last administered on 10/04/16 13:12; Admin Dose 1 DROP; Start 09/24/16 at 09:00 Sodium Hypochlorite (Dakin'S (1/4 Strength)) 1 applic BID IRR Last administered on 10/04/16 09:40; Admin Dose 1 APPLIC; Start 09/24/16 at 21:00 Pantoprazole (Protonix Iv) 40 mg BID@06,18 IV Last administered on 10/04/16 05 :09; Admin Dose 40 MG; Start 09/24/16 at 18:00 Collagenase (Santyl) 1 applic DAILY TOP Last administered on 10/04/16 09:40; Admin Dose 1 APPLIC; Start 09/24/16 at 20:30 Miscellaneous Information 1 ea NOTE XX ; Start 09/24/16 at 21:00 Glucose (Glutose) 15 gm Q15M PRN PO DECREASED GLUCOSE; Start 09/24/16 at 21:00 Glucose (Glutose) 22.5 gm Q15M PRN PO DECREASED GLUCOSE; Start 09/24/16 at 21: 00 Dextrose (D50w Syringe) 25 ml Q15M PRN IV DECREASED GLUCOSE; Start 09/24/16 at 21:00 Dextrose (D50w Syringe) 50 ml Q15M PRN IV DECREASED GLUCOSE; Start 09/24/16 at 21:00 Glucagon (Glucagen) 1 mg Q15M PRN IM DECREASED GLUCOSE; Start 09/24/16 at 21:00 Glucose 15 gm 15 gm Q15M PRN BUCCAL DECREASED GLUCOSE; Start 09/24/16 at 21:00 Acetaminophen (Ofirmev 1000mg/ 100ml Iv) 100 ml @ 400 mls/hr Q6H PRN IVPB FEVER Last administered on 09/29/16 20:27; Admin Dose 400 MLS/HR; Start at 22:00 Mupirocin (Bactroban) 1 applic BID TOP Last administered on 10/04/16 09:40; Admin Dose 1 APPLIC; Start 09/25/16 at 21:00 Vancomycin HCl (Vancomycin Oral Syringe) 250 mg Q6 PO Last administered on 10/04 11:28; Admin Dose 250 MG; Start 09/26/16 at 18:00 Lactobacillus Acidoph/Bulgaricus (Floranex) 1 tab TID PO Last administered on 13:12; Admin Dose 1 TAB; Start 09/26/16 at 21:00 Atorvastatin Calcium (Lipitor) 20 mg QHS GTB Last administered on 10/03/16 21: 21; Admin Dose 20 MG; Start 09/28/16 at 21:00 Finasteride (Proscar) 5 mg DAILY GTB Last administered on 10/04/16 09:39; Admin Dose 5 MG; Start 09/29/16 at 09:00 Levothyroxine Sodium (Synthroid) 25 mcg DAILY@06 GTB Last administered on 05:10; Admin Dose 25 MCG; Start 09/29/16 at 06:00 Multivitamins Therapeutic (Theragran) 1 tab DAILY GTB Last administered on 10/04 09:39; Admin Dose 1 TAB; Start 09/29/16 at 09:00 Zinc Sulfate (Zinc Sulfate) 220 mg DAILY NGT Last administered on 10/04/16 09: 39; Admin Dose 220 MG; Start 09/29/16 at 09:00 Insulin Aspart (Novolog Insulin Pen) NOVOLOG *MILD* ALGORI... Q6 SC ; Start at 18:00 Ondansetron HCl (Zofran Inj) 4 mg Q6H PRN IV NAUSEA AND/OR VOMITING; Start at 07:30 Heparin Sodium (Porcine) (Heparin (5000 Units/0.5 ml)) 5,000 unit BID SC Last administered on 10/04/16 09:52; Admin Dose 5,000 UNIT; Start 09/29/16 at 09:00 Linezolid (Zyvox) 600 mg BID PO Last administered on 10/04/16 09:40; Admin Dose 600 MG; Start 09/30/16 at 11:30 Acetaminophen 650 mg 650 mg Q6H PRN GTB PAIN AND OR ELEVATED TEMP Last administered on 10/04/16 05:09; Admin Dose 650 MG; Start 10/02/16 at 08:00 Colistimethate Sodium 150 mg/ Sodium Chloride 100 ml @ 200 mls/hr Q24H IVPB Last administered on 10/04/16 11:20; Admin Dose 200 MLS/HR; Start 10/03/16 at 10:00 Metronidazole 100 ml @ 100 mls/hr Q8 IVPB Last administered on 10/04/16 13:12 ; Admin Dose 100 MLS/HR; Start 10/02/16 at 14:00 Piperacillin Sod/ Tazobactam Sod 100 ml @ 200 mls/hr Q8 IVPB Last administered on 10/04/16 11:58; Admin Dose 200 MLS/HR; Start 10/04/16 at 12:00 Potassium Chloride/Dextrose (D5W + KCl 20 Meq) 1,000 ml @ 70 mls/hr [id number] IV Last administered on 10/04/16 13:12; Admin Dose 70 MLS/HR; Start 10/04/16 at 12:30; Stop 10/05/16 at 02:47 MAGGIE DINERO MD Oct 04, 2016 15:38
[2016-10-04] MEDS: ATORVASTATIN 20 MG TAB GTB SCH (20:29)
--- NOTE | 2016-10-04 23:05 | CONS ---
Date/Time of Note Date/Time of Note DATE: 10/04/16 TIME: 23:03 Assessment/Plan Assessment/Plan Chief Complaint/Hosp Course ANEMIA - NEAR- MICROCYTIC WITH INCREASED RDW DROP H/H DURING HOSPITALIZATION + ACD TRANSFUSE PRBC TO KEEP HB MORE THAN 8 TRANSFUSE NEEDED GI F-UP Stool OB, negative Monitor H&H every 8 hours, transfuse 2 units for hemoglobin less than 8 Continue PPI drips EGD PER Such[facility] LEUKOCYTOSIS- REACTIVE CONT ATB FOR SEPSIS THROMBOCYTOSIS REACTIVE SHOULD IMPROVE WITH RESOLUTION OF SEPSIS Severe sepsis with septic shock 2/2 Decub ulcers and/or UTI and/or PNA: stable, off pressor support Severe hypernatremic dehydration Acute renal failure 2/2 ATN from dehydration UTI Multifocal pneumonia Encephalopathy ?acute versus acute on chronic (baseline unknown) Hypokalemia Problems: Consultation Date/Type/Reason Admit Date/Time Sep 24, 2016 at 03:19 Initial Consult Date 09/24/16 Type of Consultation: hemeon Referring Provider: ROULA DEL TORO 24 HR Interval Summary Free Text/Dictation ALL NOTED SPIKING FEVER COUNT- ON LOW SIDE NO BLEEDING Exam/Review of Systems Vital Signs Vitals Vital Signs Date Time Temp Pulse Resp B/P Pulse Ox O2 Delivery O2 Flow Rate FiO2 10/04/16 21:21 116 20 98 30 10/04/16 21:17 99.5 10/04/16 19:55 113/53 10/04/16 18:00 Mechanical Ventilator Intake and Output 10/03/16 10/03/16 10/04/16 15:00 23:00 07:00 Intake Total 100 ml 820 ml 786 ml Output Total 1000 ml 1000 ml Balance 100 ml -180 ml -214 ml Exam Constitutional: non-verbal Respiratory: clear to auscultation Cardiovascular: regular rate and rhythm Gastrointestinal: soft, No distended Musculoskeletal: nl extremities to inspection Results Result Diagram: 10/04/16 0632 10/04/16 0632 Results 24 hrs Laboratory Tests Test 10/04/16 01:19 10/04/16 05:50 10/04/16 06:32 10/04/16 11:28 Bedside Glucose 99 92 71 White Blood Count 17.4 #H Red Blood Count 3.15 L Hemoglobin 7.6 L Hematocrit 26.8 L Mean Corpuscular Volume 85.1 Mean Corpuscular Hemoglobin 24.1 L Mean Corpuscular Hemoglobin Concent 28.4 L Red Cell Distribution Width 20.6 H Platelet Count 523 H Mean Platelet Volume 11.3 H Neutrophils % 76.5 Lymphocytes % 15.0 Monocytes % 6.2 Eosinophils % 1.6 Basophils % 0.1 Nucleated Red Blood Cells % 0.0 Neutrophils # 13.3 H Lymphocytes # 2.6 Monocytes # 1.1 H Eosinophils # 0.3 Basophils # 0.0 Nucleated Red Blood Cells # 0.0 Sodium Level 146 H Potassium Level 3.5 Chloride Level 115 H Carbon Dioxide Level 22 Anion Gap 13 Blood Urea Nitrogen 66 H Creatinine 1.42 H Glucose Level 83 Calcium Level 7.9 L Test 10/04/16 16:59 Bedside Glucose 95 Medications Medications Current Medications Acetaminophen (Tylenol Supp) 650 mg Q4H PRN [place] PAIN LEVEL 1-3 OR FEVER; Start 09/24/16 at 03:00 Eye Lubricant (Artificial Tears Oph) 1 drop TID BOTH EYES Last administered on 10/04/16 20:28; Admin Dose 1 DROP; Start 09/24/16 at 09:00 Sodium Hypochlorite (Dakin'S (1/4 Strength)) 1 applic BID IRR Last administered on 10/04/16 09:40; Admin Dose 1 APPLIC; Start 09/24/16 at 21:00 Pantoprazole (Protonix Iv) 40 mg BID@06,18 IV Last administered on 10/04/16 17 :13; Admin Dose 40 MG; Start 09/24/16 at 18:00 Collagenase (Santyl) 1 applic DAILY TOP Last administered on 10/04/16 09:40; Admin Dose 1 APPLIC; Start 09/24/16 at 20:30 Miscellaneous Information 1 ea NOTE XX ; Start 09/24/16 at 21:00 Glucose (Glutose) 15 gm Q15M PRN PO DECREASED GLUCOSE; Start 09/24/16 at 21:00 Glucose (Glutose) 22.5 gm Q15M PRN PO DECREASED GLUCOSE; Start 09/24/16 at 21: 00 Dextrose (D50w Syringe) 25 ml Q15M PRN IV DECREASED GLUCOSE; Start 09/24/16 at 21:00 Dextrose (D50w Syringe) 50 ml Q15M PRN IV DECREASED GLUCOSE; Start 09/24/16 at 21:00 Glucagon (Glucagen) 1 mg Q15M PRN IM DECREASED GLUCOSE; Start 09/24/16 at 21:00 Glucose 15 gm 15 gm Q15M PRN BUCCAL DECREASED GLUCOSE; Start 09/24/16 at 21:00 Acetaminophen (Ofirmev 1000mg/ 100ml Iv) 100 ml @ 400 mls/hr Q6H PRN IVPB FEVER Last administered on 09/29/16 20:27; Admin Dose 400 MLS/HR; Start at 22:00 Mupirocin (Bactroban) 1 applic BID TOP Last administered on 10/04/16 20:28; Admin Dose 1 APPLIC; Start 09/25/16 at 21:00 Vancomycin HCl (Vancomycin Oral Syringe) 250 mg Q6 PO Last administered on 10/04 17:13; Admin Dose 250 MG; Start 09/26/16 at 18:00 Lactobacillus Acidoph/Bulgaricus (Floranex) 1 tab TID PO Last administered on 20:29; Admin Dose 1 TAB; Start 09/26/16 at 21:00 Atorvastatin Calcium (Lipitor) 20 mg QHS GTB Last administered on 10/04/16 20: 29; Admin Dose 20 MG; Start 09/28/16 at 21:00 Finasteride (Proscar) 5 mg DAILY GTB Last administered on 10/04/16 09:39; Admin Dose 5 MG; Start 09/29/16 at 09:00 Levothyroxine Sodium (Synthroid) 25 mcg DAILY@06 GTB Last administered on 05:10; Admin Dose 25 MCG; Start 09/29/16 at 06:00 Multivitamins Therapeutic (Theragran) 1 tab DAILY GTB Last administered on 10/04 09:39; Admin Dose 1 TAB; Start 09/29/16 at 09:00 Zinc Sulfate (Zinc Sulfate) 220 mg DAILY NGT Last administered on 10/04/16 09: 39; Admin Dose 220 MG; Start 09/29/16 at 09:00 Insulin Aspart (Novolog Insulin Pen) NOVOLOG *MILD* ALGORI... Q6 SC ; Start at 18:00 Ondansetron HCl (Zofran Inj) 4 mg Q6H PRN IV NAUSEA AND/OR VOMITING; Start at 07:30 Heparin Sodium (Porcine) (Heparin (5000 Units/0.5 ml)) 5,000 unit BID SC Last administered on 10/04/16 20:42; Admin Dose 5,000 UNIT; Start 09/29/16 at 09:00 Linezolid (Zyvox) 600 mg BID PO Last administered on 10/04/16 20:29; Admin Dose 600 MG; Start 09/30/16 at 11:30 Acetaminophen 650 mg 650 mg Q6H PRN GTB PAIN AND OR ELEVATED TEMP Last administered on 10/04/16 21:27; Admin Dose 650 MG; Start 10/02/16 at 08:00 Colistimethate Sodium 150 mg/ Sodium Chloride 100 ml @ 200 mls/hr Q24H IVPB Last administered on 10/04/16 11:20; Admin Dose 200 MLS/HR; Start 10/03/16 at 10:00 Metronidazole 100 ml @ 100 mls/hr Q8 IVPB Last administered on 10/04/16 21:28 ; Admin Dose 100 MLS/HR; Start 10/02/16 at 14:00 Piperacillin Sod/ Tazobactam Sod 100 ml @ 200 mls/hr Q8 IVPB Last administered on 10/04/16 21:28; Admin Dose 200 MLS/HR; Start 10/04/16 at 12:00 Potassium Chloride/Dextrose (D5W + KCl 20 Meq) 1,000 ml @ 70 mls/hr [id number] IV Last administered on 10/04/16 13:12; Admin Dose 70 MLS/HR; Start 10/04/16 at 12:30; Stop 10/05/16 at 02:47 SCOTT RODRIGUES MD Oct 04, 2016 23:04
[2016-10-05] VITALS (31 sets, daily range): BP systolic 90–118; BP diastolic 40–66; PULSE 103–125; RESP 16–32
[2016-10-05] MEDS: ALBUTEROL HFA 8 GM INHALER INH SCH ×4 (03:30→20:09)
[2016-10-05] MEDS: IPRATROPIUM (HFA) 12.9 GM INHALER INH SCH ×4 (03:30→20:09)
[2016-10-05] MEDS: LEVOTHYROXINE 25 MCG TAB GTB SCH (05:15)
[2016-10-05] MEDS: PANTOPRAZOLE 40 MG INJ IV SCH ×2 (05:15→18:29)
[2016-10-05] MEDS: metroNIDAZOLE 500 MG/NS (PMX) 100 ML IVPB SCH ×3 (05:16→21:42)
[2016-10-05] MEDS: VANCOMYCIN HCL 250 MG/5ML POSYG PO SCH ×4 (05:20→22:04)
[2016-10-05] MEDS: PIPER-TAZO 3.375 GM IV (PMX) 100 ML IVPB SCH ×3 (05:20→21:42)
[2016-10-05] MEDS: INSULIN ASPART [NOVOLOG] 3 ML PEN SC SCH ×5 (05:20→22:04)
[2016-10-05 07:33] LABS: ADD SCAN DIFF NO
[2016-10-05 07:40] LABS: ABNORMAL IP MESSAGE 1; BASOPHIL # 0.1 10^3/ul (0.0-0.1); BASOPHILS % 0.2 % (0.0-2.0); EOSINOPHILS # 0.3 10^3/ul (0.0-0.5); EOSINOPHILS % 1.2 % (0.0-7.0); HEMATOCRIT 31.2 % (42.0-52.0); LYMPHOCYTES % 7.5 % (15.0-51.0); MEAN CORPUSCULAR HEMOGLOBIN 24.9 pg (29.0-33.0); MEAN CORPUSCULAR HGB CONC 28.8 g/dl (32.0-37.0); MEAN CORPUSCULAR VOLUME 86.2 fl (82.0-101.0); MEAN PLATELET VOLUME 11.3 fl (7.4-10.4); MONOCYTE # 0.8 10^3/ul (0.3-0.9); MONOCYTES % 2.9 % (0.0-11.0); NEUTROPHIL # 23.1 10^3/ul (1.6-7.5); NEUTROPHILS % 87.3 % (39.0-77.0); PLATELET COUNT 493 10^3/UL (140-415); RED BLOOD COUNT 3.62 10^6/ul (4.70-6.10); RED CELL DISTRIBUTION WIDTH 19.9 % (11.5-14.5); WHITE BLOOD COUNT 26.4 10^3/ul (4.8-10.8)
[2016-10-05 08:33] LABS: POTASSIUM 3.5 mmol/L (3.5-5.1)
[2016-10-05 08:35] LABS: CREATININE 1.69 mg/dl (0.61-1.24)
[2016-10-05 08:36] LABS: CALCIUM 8.1 mg/dl (8.4-10.2)
[2016-10-05] MEDS: COLLAGENASE 30 GM TUBE TOP SCH (09:00)
[2016-10-05] MEDS: ARTIFICIAL TEARS 15 ML OPH BOTH EYES SCH ×3 (10:06→21:44)
[2016-10-05] MEDS: ZINC SULFATE 220 MG CAP NGT SCH (10:07)
[2016-10-05] MEDS: ZYVOX 600 MG TAB PO SCH ×2 (10:07→21:42)
[2016-10-05] MEDS: FINASTERIDE 5 MG TAB GTB SCH (10:07)
[2016-10-05] MEDS: MUPIROCIN 2% 22 GM OINT TOP SCH ×2 (10:08→21:44)
[2016-10-05] MEDS: LACTOBACILLUS CHEW TAB PO SCH ×3 (10:08→21:42)
[2016-10-05] MEDS: ONDANSETRON 4 MG INJ IV PRN ×2 (10:09→17:42)
[2016-10-05] MEDS: MULTIVITAMINS THERAPEUTIC TAB GTB SCH (10:10)
[2016-10-05] MEDS: SODIUM HYPOCHLORITE 0.125% 473 ML BTL IRR SCH ×2 (10:11→21:43)
[2016-10-05] MEDS: COLISTIMETHATE 150 MG in SOD CHLORIDE 0.9% 100 ML IVPB SCH (10:29)
[2016-10-05] MEDS: HEPARIN 5,000 UNIT/0.5 ML VIAL SC SCH ×2 (10:29→21:51)
--- NOTE | 2016-10-05 13:34 | CONS ---
Date/Time of Note Date/Time of Note DATE: 10/05/16 TIME: 13:34 Assessment/Plan Assessment/Plan Chief Complaint/Hosp Course ANEMIA - NEAR- MICROCYTIC WITH INCREASED RDW DROP H/H DURING HOSPITALIZATION + ACD TRANSFUSE PRBC TO KEEP HB MORE THAN 8 TRANSFUSE NEEDED GI F-UP Stool OB, negative Monitor H&H every 8 hours, transfuse 2 units for hemoglobin less than 8 Continue PPI drips EGD PER Such[facility] LEUKOCYTOSIS- REACTIVE CONT ATB FOR SEPSIS THROMBOCYTOSIS REACTIVE SHOULD IMPROVE WITH RESOLUTION OF SEPSIS Severe sepsis with septic shock 2/2 Decub ulcers and/or UTI and/or PNA: stable, off pressor support Severe hypernatremic dehydration Acute renal failure 2/2 ATN from dehydration UTI Multifocal pneumonia Encephalopathy ?acute versus acute on chronic (baseline unknown) Hypokalemia Problems: Consultation Date/Type/Reason Admit Date/Time Sep 24, 2016 at 03:19 Initial Consult Date 09/24/16 Type of Consultation: hemeon Referring Provider: ROULA DEL TORO 24 HR Interval Summary Free Text/Dictation ALL NOTED D/W RN Exam/Review of Systems Vital Signs Vitals Vital Signs Date Time Temp Pulse Resp B/P Pulse Ox O2 Delivery O2 Flow Rate FiO2 10/05/16 13:05 125 29 97 30 10/05/16 11:38 100.2 110/60 10/05/16 10:03 Mechanical Ventilator Trach Collar Intake and Output 10/04/16 10/04/16 10/05/16 15:00 23:00 07:00 Intake Total 300 ml 1220 ml 1790 ml Output Total 900 ml 1000 ml Balance 300 ml 320 ml 790 ml Exam Constitutional: No alert, No oriented Psych: No nl mood/affect Head: atraumatic, normocephalic Eyes: nl conjunctiva, No EOMI, No icteric ENMT: mucosa pink and moist, nl external ears & nose Neck: jvd, other (Trach in place), No non-tender, No supple Respiratory: No congested cough, No labored breathing Cardiovascular: No regular rate and rhythm Gastrointestinal: non-tender, other (PEG in place), soft, No rebound or guarding Musculoskeletal: No joint tenderness, No nl extremities to inspection, No nl gait and stance Extremities: No calf tenderness, No cyanosis Neurological: No nl mental status, No nl speech, No nl strength Skin: rash or lesions (Multiple decubitus ulcerations with debris, necrotic tissue, deep tissue injury), No diaphoresis, No nl turgor Lymph: nontender Results Result Diagram: 10/05/16 0616 10/05/16 0616 Results 24 hrs Laboratory Tests Test 10/04/16 16:59 10/04/16 23:46 10/05/16 05:14 10/05/16 06:16 Bedside Glucose 95 99 71 White Blood Count 26.4 #H Red Blood Count 3.62 L Hemoglobin 9.0 L Hematocrit 31.2 L Mean Corpuscular Volume 86.2 Mean Corpuscular Hemoglobin 24.9 L Mean Corpuscular Hemoglobin Concent 28.8 L Red Cell Distribution Width 19.9 H Platelet Count 493 H Mean Platelet Volume 11.3 H Neutrophils % 87.3 H Lymphocytes % 7.5 L Monocytes % 2.9 Eosinophils % 1.2 Basophils % 0.2 Nucleated Red Blood Cells % 0.0 Neutrophils # 23.1 H Lymphocytes # 2.0 Monocytes # 0.8 Eosinophils # 0.3 Basophils # 0.1 Nucleated Red Blood Cells # 0.0 Sodium Level 146 H Potassium Level 3.5 Chloride Level 112 H Carbon Dioxide Level 19 L Anion Gap 19 H Blood Urea Nitrogen 62 H Creatinine 1.69 H Glucose Level 66 #L Calcium Level 8.1 L Test 10/05/16 12:27 Bedside Glucose 75 Medications Medications Current Medications Acetaminophen (Tylenol Supp) 650 mg Q4H PRN [place] PAIN LEVEL 1-3 OR FEVER; Start 09/24/16 at 03:00 Eye Lubricant (Artificial Tears Oph) 1 drop TID BOTH EYES Last administered on 10/05/16 10:06; Admin Dose 1 DROP; Start 09/24/16 at 09:00 Sodium Hypochlorite (Dakin'S (1/4 Strength)) 1 applic BID IRR Last administered on 10/05/16 10:11; Admin Dose 1 APPLIC; Start 09/24/16 at 21:00 Pantoprazole (Protonix Iv) 40 mg BID@06,18 IV Last administered on 10/05/16 05: 15; Admin Dose 40 MG; Start 09/24/16 at 18:00 Collagenase (Santyl) 1 applic DAILY TOP Last administered on 10/05/16 09:00; Admin Dose 1 APPLIC; Start 09/24/16 at 20:30 Miscellaneous Information 1 ea NOTE XX ; Start 09/24/16 at 21:00 Glucose (Glutose) 15 gm Q15M PRN PO DECREASED GLUCOSE; Start 09/24/16 at 21:00 Glucose (Glutose) 22.5 gm Q15M PRN PO DECREASED GLUCOSE; Start 09/24/16 at 21: 00 Dextrose (D50w Syringe) 25 ml Q15M PRN IV DECREASED GLUCOSE; Start 09/24/16 at 21:00 Dextrose (D50w Syringe) 50 ml Q15M PRN IV DECREASED GLUCOSE; Start 09/24/16 at 21:00 Glucagon (Glucagen) 1 mg Q15M PRN IM DECREASED GLUCOSE; Start 09/24/16 at 21:00 Glucose 15 gm 15 gm Q15M PRN BUCCAL DECREASED GLUCOSE; Start 09/24/16 at 21:00 Acetaminophen (Ofirmev 1000mg/ 100ml Iv) 100 ml @ 400 mls/hr Q6H PRN IVPB FEVER Last administered on 09/29/16 20:27; Admin Dose 400 MLS/HR; Start at 22:00 Mupirocin (Bactroban) 1 applic BID TOP Last administered on 10/05/16 10:08; Admin Dose 1 APPLIC; Start 09/25/16 at 21:00 Vancomycin HCl (Vancomycin Oral Syringe) 250 mg Q6 PO Last administered on 05:20; Admin Dose 250 MG; Start 09/26/16 at 18:00 Lactobacillus Acidoph/Bulgaricus (Floranex) 1 tab TID PO Last administered on 10:08; Admin Dose 1 TAB; Start 09/26/16 at 21:00 Atorvastatin Calcium (Lipitor) 20 mg QHS GTB Last administered on 10/04/16 20: 29; Admin Dose 20 MG; Start 09/28/16 at 21:00 Finasteride (Proscar) 5 mg DAILY GTB Last administered on 10/05/16 10:07; Admin Dose 5 MG; Start 09/29/16 at 09:00 Levothyroxine Sodium (Synthroid) 25 mcg DAILY@06 GTB Last administered on 05:15; Admin Dose 25 MCG; Start 09/29/16 at 06:00 Multivitamins Therapeutic (Theragran) 1 tab DAILY GTB Last administered on 10:10; Admin Dose 1 TAB; Start 09/29/16 at 09:00 Zinc Sulfate (Zinc Sulfate) 220 mg DAILY NGT Last administered on 10/05/16 10: 07; Admin Dose 220 MG; Start 09/29/16 at 09:00 Insulin Aspart (Novolog Insulin Pen) NOVOLOG *MILD* ALGORI... Q6 SC ; Start at 18:00 Ondansetron HCl (Zofran Inj) 4 mg Q6H PRN IV NAUSEA AND/OR VOMITING Last administered on 10/05/16 10:09; Admin Dose 4 MG; Start 09/29/16 at 07:30 Heparin Sodium (Porcine) (Heparin (5000 Units/0.5 ml)) 5,000 unit BID SC Last administered on 10/05/16 10:29; Admin Dose 5,000 UNIT; Start 09/29/16 at 09:00 Linezolid (Zyvox) 600 mg BID PO Last administered on 10/05/16 10:07; Admin Dose 600 MG; Start 09/30/16 at 11:30 Acetaminophen 650 mg 650 mg Q6H PRN GTB PAIN AND OR ELEVATED TEMP Last administered on 10/04/16 21:27; Admin Dose 650 MG; Start 10/02/16 at 08:00 Colistimethate Sodium 150 mg/ Sodium Chloride 100 ml @ 200 mls/hr Q24H IVPB Last administered on 10/05/16 10:29; Admin Dose 200 MLS/HR; Start 10/03/16 at 10 :00 Metronidazole 100 ml @ 100 mls/hr Q8 IVPB Last administered on 10/05/16 05:16 ; Admin Dose 100 MLS/HR; Start 10/02/16 at 14:00 Piperacillin Sod/ Tazobactam Sod (Zosyn 3.375gm/ 100 ml (Pmx)) 100 ml @ 200 mls /hr Q8 IVPB Last administered on 10/05/16 05:20; Admin Dose 200 MLS/HR; Start 10/04/16 at 12:00 SCOTT RODRIGUES MD Oct 05, 2016 13:34
--- NOTE | 2016-10-05 15:01 | PN ---
Date/Time of Note Date/Time of Note DATE: 10/05/16 TIME: 15:00 Assessment/Plan VTE Prophylaxis VTE Prophylaxis Intervention: SCD's Assessment/Plan Chief Complaint/Hosp Course 1. Severe sepsis with septic shock 2/2 Decub ulcers and/or UTI and/or PNA: WBC increasing and having fevers 2. Severe hypernatremia 2/2 dehydration: improving 3. Acute renal failure 2/2 ATN from dehydration: improving 4. Ecoli bacteremia and UTI : 5. Multifocal pneumonia (E coli / A baumanii) 6. 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 Hypochromic microcytic Iron deficiency anemia likely 2/2 chronic Bleed 8. Hypokalemia: resolved 9. Probable GI bleed (Coffee ground drainage from G tube) 10. Severe multiple pressure ulcers infected with multiple organisms including MRSA 11. Hx of severe C-diff/ pseudomembranous colitis 12. Hypothyroidism with good control: Levothyroxine 13. Chronic Dysphagia 2/2 encephalopathy 14. Chronic resp failure ventilator dependent Via tracheostomy PLAN: * Abx changed to Colistin and Zyvox, Flagyl also added, cont Vanco PO * Monitor fever curve/ f/u repeat blood cultures / Change snider / if fever persists, d/w surgery re: possible debridement * Complete 5 days of Iv iron supplementation and the switch to oral * Pt still having fevers and WBC increasing, not stable for DC, repeat C. DIff * IVF managed per Nephro and patient has been restarted on tube feeds till family gives consent for EGD * With degree of sores, Patient may require more aggressive intervention (? diverting colostomy) however will defer to surgery. Patient however is an extremely poor candidate and with comorbidities and baseline encephalopathy is more appropriate for hospice care instead / Palliative care consulted. PROPHYLAXIS: Start low dose heparin and monitor for bleeding / SCDS / Protonix Problems: Subjective 24 Hr Interval Summary Subjective hx not possible: pt non-verbal Exam/Review of Systems Vital Signs Vitals Vital Signs Date Time Temp Pulse Resp B/P Pulse Ox O2 Delivery O2 Flow Rate FiO2 10/05/16 14:30 101.3 122 16 101/44 98 Mechanical Ventilator Trach Collar 10/05/16 13:05 30 Intake and Output 10/04/16 10/04/16 10/05/16 15:00 23:00 07:00 Intake Total 300 ml 1220 ml 1790 ml Output Total 900 ml 1000 ml Balance 300 ml 320 ml 790 ml Exam Constitutional: non-verbal Respiratory: clear to auscultation Cardiovascular: regular rate and rhythm Gastrointestinal: soft, No distended Musculoskeletal: nl extremities to inspection Results Result Diagram: 10/05/16 0616 10/05/16 0616 Results 24 hrs Laboratory Tests Test 10/04/16 16:59 10/04/16 23:46 10/05/16 05:14 10/05/16 06:16 Bedside Glucose 95 99 71 White Blood Count 26.4 #H Red Blood Count 3.62 L Hemoglobin 9.0 L Hematocrit 31.2 L Mean Corpuscular Volume 86.2 Mean Corpuscular Hemoglobin 24.9 L Mean Corpuscular Hemoglobin Concent 28.8 L Red Cell Distribution Width 19.9 H Platelet Count 493 H Mean Platelet Volume 11.3 H Neutrophils % 87.3 H Lymphocytes % 7.5 L Monocytes % 2.9 Eosinophils % 1.2 Basophils % 0.2 Nucleated Red Blood Cells % 0.0 Neutrophils # 23.1 H Lymphocytes # 2.0 Monocytes # 0.8 Eosinophils # 0.3 Basophils # 0.1 Nucleated Red Blood Cells # 0.0 Sodium Level 146 H Potassium Level 3.5 Chloride Level 112 H Carbon Dioxide Level 19 L Anion Gap 19 H Blood Urea Nitrogen 62 H Creatinine 1.69 H Glucose Level 66 #L Calcium Level 8.1 L Test 10/05/16 12:27 Bedside Glucose 75 Medications Medications Current Medications Acetaminophen (Tylenol Supp) 650 mg Q4H PRN [place] PAIN LEVEL 1-3 OR FEVER; Start 09/24/16 at 03:00 Eye Lubricant (Artificial Tears Oph) 1 drop TID BOTH EYES Last administered on 10/05/16 14:32; Admin Dose 1 DROP; Start 09/24/16 at 09:00 Sodium Hypochlorite (Dakin'S (1/4 Strength)) 1 applic BID IRR Last administered on 10/05/16 10:11; Admin Dose 1 APPLIC; Start 09/24/16 at 21:00 Pantoprazole (Protonix Iv) 40 mg BID@06,18 IV Last administered on 10/05/16 05: 15; Admin Dose 40 MG; Start 09/24/16 at 18:00 Collagenase (Santyl) 1 applic DAILY TOP Last administered on 10/05/16 09:00; Admin Dose 1 APPLIC; Start 09/24/16 at 20:30 Miscellaneous Information 1 ea NOTE XX ; Start 09/24/16 at 21:00 Glucose (Glutose) 15 gm Q15M PRN PO DECREASED GLUCOSE; Start 09/24/16 at 21:00 Glucose (Glutose) 22.5 gm Q15M PRN PO DECREASED GLUCOSE; Start 09/24/16 at 21: 00 Dextrose (D50w Syringe) 25 ml Q15M PRN IV DECREASED GLUCOSE; Start 09/24/16 at 21:00 Dextrose (D50w Syringe) 50 ml Q15M PRN IV DECREASED GLUCOSE; Start 09/24/16 at 21:00 Glucagon (Glucagen) 1 mg Q15M PRN IM DECREASED GLUCOSE; Start 09/24/16 at 21:00 Glucose 15 gm 15 gm Q15M PRN BUCCAL DECREASED GLUCOSE; Start 09/24/16 at 21:00 Acetaminophen (Ofirmev 1000mg/ 100ml Iv) 100 ml @ 400 mls/hr Q6H PRN IVPB FEVER Last administered on 09/29/16 20:27; Admin Dose 400 MLS/HR; Start at 22:00 Mupirocin (Bactroban) 1 applic BID TOP Last administered on 10/05/16 10:08; Admin Dose 1 APPLIC; Start 09/25/16 at 21:00 Vancomycin HCl (Vancomycin Oral Syringe) 250 mg Q6 PO Last administered on 14:32; Admin Dose 250 MG; Start 09/26/16 at 18:00 Lactobacillus Acidoph/Bulgaricus (Floranex) 1 tab TID PO Last administered on 14:32; Admin Dose 1 TAB; Start 09/26/16 at 21:00 Atorvastatin Calcium (Lipitor) 20 mg QHS GTB Last administered on 10/04/16 20: 29; Admin Dose 20 MG; Start 09/28/16 at 21:00 Finasteride (Proscar) 5 mg DAILY GTB Last administered on 10/05/16 10:07; Admin Dose 5 MG; Start 09/29/16 at 09:00 Levothyroxine Sodium (Synthroid) 25 mcg DAILY@06 GTB Last administered on 05:15; Admin Dose 25 MCG; Start 09/29/16 at 06:00 Multivitamins Therapeutic (Theragran) 1 tab DAILY GTB Last administered on 10:10; Admin Dose 1 TAB; Start 09/29/16 at 09:00 Zinc Sulfate (Zinc Sulfate) 220 mg DAILY NGT Last administered on 10/05/16 10: 07; Admin Dose 220 MG; Start 09/29/16 at 09:00 Insulin Aspart (Novolog Insulin Pen) NOVOLOG *MILD* ALGORI... Q6 SC ; Start at 18:00 Ondansetron HCl (Zofran Inj) 4 mg Q6H PRN IV NAUSEA AND/OR VOMITING Last administered on 10/05/16 10:09; Admin Dose 4 MG; Start 09/29/16 at 07:30 Heparin Sodium (Porcine) (Heparin (5000 Units/0.5 ml)) 5,000 unit BID SC Last administered on 10/05/16 10:29; Admin Dose 5,000 UNIT; Start 09/29/16 at 09:00 Linezolid (Zyvox) 600 mg BID PO Last administered on 10/05/16 10:07; Admin Dose 600 MG; Start 09/30/16 at 11:30 Acetaminophen 650 mg 650 mg Q6H PRN GTB PAIN AND OR ELEVATED TEMP Last administered on 10/04/16 21:27; Admin Dose 650 MG; Start 10/02/16 at 08:00 Colistimethate Sodium 150 mg/ Sodium Chloride 100 ml @ 200 mls/hr Q24H IVPB Last administered on 10/05/16 10:29; Admin Dose 200 MLS/HR; Start 10/03/16 at 10 :00 Metronidazole 100 ml @ 100 mls/hr Q8 IVPB Last administered on 10/05/16 14:33 ; Admin Dose 100 MLS/HR; Start 10/02/16 at 14:00 Piperacillin Sod/ Tazobactam Sod (Zosyn 3.375gm/ 100 ml (Pmx)) 100 ml @ 200 mls /hr Q8 IVPB Last administered on 10/05/16 14:33; Admin Dose 200 MLS/HR; Start 10/04/16 at 12:00 KEVYN GARNETT Oct 05, 2016 15:01
[2016-10-05] MEDS ORDERED: ONDANSETRON 4 MG INJ IV STA (16:14)
[2016-10-05] MEDS ORDERED: DEXTROSE 5% 1,000 ML IV SCH (18:00)
[2016-10-05 18:38] LABS: AADO2 Arterial 84.3 mmHg (7.0-24.0); Allen Test ACCEPTAB; Arterial Base Excess -6.9 mmol/L (-3.0-3); Arterial COHb 0.3 % (0.0-3.0); Arterial Fraction of Oxyhgb 96.3 % (93.0-99.0); Arterial HCO3 16.2 mmol/L (22.0-26.0); Arterial MetHb 0.5 % (0.0-1.5); Arterial Total Hemglobin 10.1 g/dl (12.0-18.0); MODE VENT - AC
--- NOTE | 2016-10-05 19:10 | CONS ---
Date/Time of Note Date/Time of Note DATE: 10/05/16 TIME: 19:09 Consult Date/Type/Reason Admit Date/Time Sep 24, 2016 at 03:19 Initial Consult Date 09/24/16 Type of Consultation: Pulm Ordering Provider: ROULA DEL TORO Subjective No events. Objective Vital Signs Date Time Temp Pulse Resp B/P Pulse Ox O2 Delivery O2 Flow Rate FiO2 10/05/16 17:36 122 31 97 30 10/05/16 16:00 102.0 98/62 Mechanical Ventilator Trach Collar Intake and Output 10/04/16 10/04/16 10/05/16 15:00 23:00 07:00 Intake Total 300 ml 1220 ml 1790 ml Output Total 900 ml 1000 ml Balance 300 ml 320 ml 790 ml Exam HEENT: Pupils equal, round, and reactive to light. Tracheostomy site clean and intact. CARDIAC: S1, S2, 2 systolic ejection murmur CHEST: Diminished air entry bilaterally. ABDOMEN: Mildly distended. Bowel sounds present EXTREMITIES: No cyanosis, clubbing edema +2 Results/Medications Result Diagram: 10/05/16 0616 10/05/16 0616 Results 24 hrs Laboratory Tests Test 10/04/16 23:46 10/05/16 05:14 10/05/16 06:16 10/05/16 12:27 Bedside Glucose 99 71 75 White Blood Count 26.4 #H Red Blood Count 3.62 L Hemoglobin 9.0 L Hematocrit 31.2 L Mean Corpuscular Volume 86.2 Mean Corpuscular Hemoglobin 24.9 L Mean Corpuscular Hemoglobin Concent 28.8 L Red Cell Distribution Width 19.9 H Platelet Count 493 H Mean Platelet Volume 11.3 H Neutrophils % 87.3 H Lymphocytes % 7.5 L Monocytes % 2.9 Eosinophils % 1.2 Basophils % 0.2 Nucleated Red Blood Cells % 0.0 Neutrophils # 23.1 H Lymphocytes # 2.0 Monocytes # 0.8 Eosinophils # 0.3 Basophils # 0.1 Nucleated Red Blood Cells # 0.0 Sodium Level 146 H Potassium Level 3.5 Chloride Level 112 H Carbon Dioxide Level 19 L Anion Gap 19 H Blood Urea Nitrogen 62 H Creatinine 1.69 H Glucose Level 66 #L Calcium Level 8.1 L Test 10/05/16 18:01 10/05/16 18:28 Blood Gas Specimen Source Blood arterial Arterial Blood Date Drawn 10/05/2016 6:26:37 PM Arterial Blood pH (Temp corrected) 7.425 Arterial Blood pCO2 (Temp correct) 25.2 L Arterial Blood pO2 (Temp corrected) 100.0 H Arterial Blood HCO3 16.2 L Arterial Blood Base Excess -6.9 L Arterial Blood Oxygen Saturation 97.1 Ki Test ACCEPTAB Arterial Blood Gas Puncture Site Right Radial Arterial Blood Carboxyhemoglobin 0.3 Arterial Blood Methemoglobin 0.5 Blood Gas A-a O2 Differential 84.3 H Oxyhemoglobin Percent 96.3 Total Hemoglobin 10.1 L Blood Gas Temperature 37.0 Blood Gas Respiration Rate 16.0 Blood Gas Actual Respiration Rate 21 Blood Gas Modality VENT - AC FiO2 30.0 Blood Gas Tidal Volume 500.0 Blood Gas High PEEP Setting 5.0 Blood Gas Notified Whom AC Blood Gas Notified Time 10/05/2016 6:37:56 PM Bedside Glucose 70 Medications Current Medications Acetaminophen (Tylenol Supp) 650 mg Q4H PRN [place] PAIN LEVEL 1-3 OR FEVER; Start 09/24/16 at 03:00 Eye Lubricant (Artificial Tears Oph) 1 drop TID BOTH EYES Last administered on 10/05/16 14:32; Admin Dose 1 DROP; Start 09/24/16 at 09:00 Sodium Hypochlorite (Dakin'S (1/4 Strength)) 1 applic BID IRR Last administered on 10/05/16 10:11; Admin Dose 1 APPLIC; Start 09/24/16 at 21:00 Pantoprazole (Protonix Iv) 40 mg BID@06,18 IV Last administered on 10/05/16 18: 29; Admin Dose 40 MG; Start 09/24/16 at 18:00 Collagenase (Santyl) 1 applic DAILY TOP Last administered on 10/05/16 09:00; Admin Dose 1 APPLIC; Start 09/24/16 at 20:30 Miscellaneous Information 1 ea NOTE XX ; Start 09/24/16 at 21:00 Glucose (Glutose) 15 gm Q15M PRN PO DECREASED GLUCOSE; Start 09/24/16 at 21:00 Glucose (Glutose) 22.5 gm Q15M PRN PO DECREASED GLUCOSE; Start 09/24/16 at 21: 00 Dextrose (D50w Syringe) 25 ml Q15M PRN IV DECREASED GLUCOSE; Start 09/24/16 at 21:00 Dextrose (D50w Syringe) 50 ml Q15M PRN IV DECREASED GLUCOSE; Start 09/24/16 at 21:00 Glucagon (Glucagen) 1 mg Q15M PRN IM DECREASED GLUCOSE; Start 09/24/16 at 21:00 Glucose 15 gm 15 gm Q15M PRN BUCCAL DECREASED GLUCOSE; Start 09/24/16 at 21:00 Acetaminophen (Ofirmev 1000mg/ 100ml Iv) 100 ml @ 400 mls/hr Q6H PRN IVPB FEVER Last administered on 09/29/16 20:27; Admin Dose 400 MLS/HR; Start at 22:00 Mupirocin (Bactroban) 1 applic BID TOP Last administered on 10/05/16 10:08; Admin Dose 1 APPLIC; Start 09/25/16 at 21:00 Vancomycin HCl (Vancomycin Oral Syringe) 250 mg Q6 PO Last administered on 18:32; Admin Dose 250 MG; Start 09/26/16 at 18:00 Lactobacillus Acidoph/Bulgaricus (Floranex) 1 tab TID PO Last administered on 14:32; Admin Dose 1 TAB; Start 09/26/16 at 21:00 Atorvastatin Calcium (Lipitor) 20 mg QHS GTB Last administered on 10/04/16 20: 29; Admin Dose 20 MG; Start 09/28/16 at 21:00 Finasteride (Proscar) 5 mg DAILY GTB Last administered on 10/05/16 10:07; Admin Dose 5 MG; Start 09/29/16 at 09:00 Levothyroxine Sodium (Synthroid) 25 mcg DAILY@06 GTB Last administered on 05:15; Admin Dose 25 MCG; Start 09/29/16 at 06:00 Multivitamins Therapeutic (Theragran) 1 tab DAILY GTB Last administered on 10:10; Admin Dose 1 TAB; Start 09/29/16 at 09:00 Zinc Sulfate (Zinc Sulfate) 220 mg DAILY NGT Last administered on 10/05/16 10: 07; Admin Dose 220 MG; Start 09/29/16 at 09:00 Insulin Aspart (Novolog Insulin Pen) NOVOLOG *MILD* ALGORI... Q6 SC ; Start at 18:00 Ondansetron HCl (Zofran Inj) 4 mg Q6H PRN IV NAUSEA AND/OR VOMITING Last administered on 10/05/16 17:42; Admin Dose 4 MG; Start 09/29/16 at 07:30 Heparin Sodium (Porcine) (Heparin (5000 Units/0.5 ml)) 5,000 unit BID SC Last administered on 10/05/16 10:29; Admin Dose 5,000 UNIT; Start 09/29/16 at 09:00 Linezolid (Zyvox) 600 mg BID PO Last administered on 10/05/16 10:07; Admin Dose 600 MG; Start 09/30/16 at 11:30 Acetaminophen 650 mg 650 mg Q6H PRN GTB PAIN AND OR ELEVATED TEMP Last administered on 10/04/16 21:27; Admin Dose 650 MG; Start 10/02/16 at 08:00 Colistimethate Sodium 150 mg/ Sodium Chloride 100 ml @ 200 mls/hr Q24H IVPB Last administered on 10/05/16 10:29; Admin Dose 200 MLS/HR; Start 10/03/16 at 10 :00 Metronidazole 100 ml @ 100 mls/hr Q8 IVPB Last administered on 10/05/16 14:33 ; Admin Dose 100 MLS/HR; Start 10/02/16 at 14:00 Piperacillin Sod/ Tazobactam Sod 100 ml @ 200 mls/hr Q8 IVPB Last administered on 10/05/16 14:33; Admin Dose 200 MLS/HR; Start 10/04/16 at 12:00 Dextrose (D5W) 1,000 ml @ 125 mls/hr Q8H IV Last administered on 10/05/16 18: 29; Admin Dose 125 MLS/HR; Start 10/05/16 at 18:00 Assessment/Plan Additional Assessment/Plan IMP: 1. Status post Septic shock likely secondary to pneumonia 2. Anemia 3. Vent dependent respiratory failure 4. Dysphagia with G-tube 5. Hypernatremia 6. History of renal insufficiency RECS: 1. Continue mechanical ventilation 2. Continue antibiotics per infectious diseases 3. Monitor H&H 4. Continue renal recommendations 5. Am labs. GODFREY GILLILAND MD Oct 05, 2016 19:10
--- NOTE | 2016-10-05 19:47 | RADRPT ---
PROCEDURE: XR Abdomen. CLINICAL INDICATION: Abdominal pain TECHNIQUE: Two views of the abdomen are available for review. COMPARISON: None. FINDINGS: There is diffuse gaseous distension of bowel loops, suggesting ileus. No definite evidence to indic ate bowel obstruction is seen. Gastrostomy tube tip projects over the left upper quadrant of the ab domen. The osseous structures are remarkable for degenerative spondylosis of the spine. IMPRESSION: 1. There is diffuse gaseous distension of bowel loops, suggesting ileus. No definite evidence to i ndicate bowel obstruction is seen. RPTAT: QQ .Jarrett Jackson MD, MD Date Time Electronically viewed and signed by .Jarrett Jackson MD, on 10/05/2016 19:47 .R/
--- NOTE | 2016-10-05 19:48 | RADRPT ---
PROCEDURE: XR Chest. CLINICAL INDICATION: Dyspnea, septic shock TECHNIQUE: Single frontal chest x-ray. COMPARISON: 09/27/2016 FINDINGS: Tracheostomy tube remains in place. Hazy opacity at the left lung base is grossly unchanged. There is stable mild cardiomegaly. Aortic atherosclerotic calcification is noted. Left subclavian centr al venous catheter remains in place. The osseous structures are unremarkable. IMPRESSION: 1. Stable mild cardiomegaly and aortic atherosclerosis. 2. Stable hazy opacity at the left lung base, possibly atelectasis, mild pleural effusion and/or pn eumonia. 3. Tracheostomy tube and left subclavian central venous catheter remain in place. RPTAT: QQ .Jarrett Jackson MD, MD Date Time Electronically viewed and signed by .Jarrett Jackson MD, on 10/05/2016 19:48 .R/
--- NOTE | 2016-10-05 20:29 | CONS ---
Date/Time of Note Date/Time of Note DATE: 10/05/16 TIME: 20:26 Assessment/Plan Assessment/Plan Chief Complaint/Hosp Course SUBJECTIVE: T max 102, looks comfortable, urine is cloudy with sediment MICROBIOLOGY: Blood culture on 09/28/2016 remains negative. ANTIMICROBIALS: The patient is on: 1. Colistin 2. Flagyl. 3. Zyvox. 4. Oral vancomycin 5. Zosyn INDWELLINGS: Trach, PEG, Cee. PHYSICAL EXAMINATION: GENERAL: This is a chronically ill-appearing, elderly man who is awake, noncommunicative, in no distress. HEENT: Head atraumatic, normocephalic. Sclerae anicteric. Buccal mucosa dry. NECK: Supple. Tracheostomy present. CHEST: Rise symmetrical. Breath sounds diminished to bases. HEART: S1, S2. ABDOMEN: Soft, bowel sounds present. EXTREMITIES: Without cyanosis. Trace edema. ASSESSMENT: 1. Sepsis status post shock. 2. Escherichia coli and Bacteroides fragilis bacteremia on admission. 3. Escherichia coli urinary tract infection. 4. Methicillin-resistant Staphylococcus aureus nares colonization. 5. Multiple decubitus with wound culture growing multi-drug resistant organisms. 6. Chronic respiratory failure. 7. History of cerebrovascular accident. 8. Diarrhea==> Hx C dif/Pseudomembranous colitis 9. Ileus PLAN: Will order CT abdomen and pelvix, repeat cx's, continue abx, vent per pulmonary DW staff Problems: Consultation Date/Type/Reason Admit Date/Time Sep 24, 2016 at 03:19 Initial Consult Date 09/24/16 Type of Consultation: id Referring Provider: ROULA DEL TORO Exam/Review of Systems Vital Signs Vitals Vital Signs Date Time Temp Pulse Resp B/P Pulse Ox O2 Delivery O2 Flow Rate FiO2 10/05/16 20:15 98.4 120 20 110/46 97 10/05/16 20:10 30 10/05/16 16:00 Mechanical Ventilator Trach Collar Intake and Output 10/04/16 10/04/16 10/05/16 15:00 23:00 07:00 Intake Total 300 ml 1220 ml 1790 ml Output Total 900 ml 1000 ml Balance 300 ml 320 ml 790 ml Results Result Diagram: 10/05/16 0616 10/05/16 0616 Results 24 hrs Laboratory Tests Test 10/04/16 23:46 10/05/16 05:14 10/05/16 06:16 10/05/16 12:27 Bedside Glucose 99 71 75 White Blood Count 26.4 #H Red Blood Count 3.62 L Hemoglobin 9.0 L Hematocrit 31.2 L Mean Corpuscular Volume 86.2 Mean Corpuscular Hemoglobin 24.9 L Mean Corpuscular Hemoglobin Concent 28.8 L Red Cell Distribution Width 19.9 H Platelet Count 493 H Mean Platelet Volume 11.3 H Neutrophils % 87.3 H Lymphocytes % 7.5 L Monocytes % 2.9 Eosinophils % 1.2 Basophils % 0.2 Nucleated Red Blood Cells % 0.0 Neutrophils # 23.1 H Lymphocytes # 2.0 Monocytes # 0.8 Eosinophils # 0.3 Basophils # 0.1 Nucleated Red Blood Cells # 0.0 Sodium Level 146 H Potassium Level 3.5 Chloride Level 112 H Carbon Dioxide Level 19 L Anion Gap 19 H Blood Urea Nitrogen 62 H Creatinine 1.69 H Glucose Level 66 #L Calcium Level 8.1 L Test 10/05/16 18:01 10/05/16 18:28 10/05/16 19:00 Blood Gas Specimen Source Blood arterial Arterial Blood Date Drawn 10/05/2016 6:26:37 PM Arterial Blood pH (Temp corrected) 7.425 Arterial Blood pCO2 (Temp correct) 25.2 L Arterial Blood pO2 (Temp corrected) 100.0 H Arterial Blood HCO3 16.2 L Arterial Blood Base Excess -6.9 L Arterial Blood Oxygen Saturation 97.1 Ki Test ACCEPTAB Arterial Blood Gas Puncture Site Right Radial Arterial Blood Carboxyhemoglobin 0.3 Arterial Blood Methemoglobin 0.5 Blood Gas A-a O2 Differential 84.3 H Oxyhemoglobin Percent 96.3 Total Hemoglobin 10.1 L Blood Gas Temperature 37.0 Blood Gas Respiration Rate 16.0 Blood Gas Actual Respiration Rate 21 Blood Gas Modality VENT - AC FiO2 30.0 Blood Gas Tidal Volume 500.0 Blood Gas High PEEP Setting 5.0 Blood Gas Notified Whom AC Blood Gas Notified Time 10/05/2016 6:37:56 PM Bedside Glucose 70 Lactic Acid Level 3.9 H Medications Medications Current Medications Acetaminophen (Tylenol Supp) 650 mg Q4H PRN [place] PAIN LEVEL 1-3 OR FEVER; Start 09/24/16 at 03:00 Eye Lubricant (Artificial Tears Oph) 1 drop TID BOTH EYES Last administered on 10/05/16 14:32; Admin Dose 1 DROP; Start 09/24/16 at 09:00 Sodium Hypochlorite (Dakin'S (07/10 Strength)) 1 applic BID IRR Last administered on 10/05/16 10:11; Admin Dose 1 APPLIC; Start 09/24/16 at 21:00 Pantoprazole (Protonix Iv) 40 mg BID@06,18 IV Last administered on 10/05/16 18: 29; Admin Dose 40 MG; Start 09/24/16 at 18:00 Collagenase (Santyl) 1 applic DAILY TOP Last administered on 10/05/16 09:00; Admin Dose 1 APPLIC; Start 09/24/16 at 20:30 Miscellaneous Information 1 ea NOTE XX ; Start 09/24/16 at 21:00 Glucose (Glutose) 15 gm Q15M PRN PO DECREASED GLUCOSE; Start 09/24/16 at 21:00 Glucose (Glutose) 22.5 gm Q15M PRN PO DECREASED GLUCOSE; Start 09/24/16 at 21: 00 Dextrose (D50w Syringe) 25 ml Q15M PRN IV DECREASED GLUCOSE; Start 09/24/16 at 21:00 Dextrose (D50w Syringe) 50 ml Q15M PRN IV DECREASED GLUCOSE; Start 09/24/16 at 21:00 Glucagon (Glucagen) 1 mg Q15M PRN IM DECREASED GLUCOSE; Start 09/24/16 at 21:00 Glucose 15 gm 15 gm Q15M PRN BUCCAL DECREASED GLUCOSE; Start 09/24/16 at 21:00 Acetaminophen (Ofirmev 1000mg/ 100ml Iv) 100 ml @ 400 mls/hr Q6H PRN IVPB FEVER Last administered on 09/29/16 20:27; Admin Dose 400 MLS/HR; Start at 22:00 Mupirocin (Bactroban) 1 applic BID TOP Last administered on 10/05/16 10:08; Admin Dose 1 APPLIC; Start 09/25/16 at 21:00 Vancomycin HCl (Vancomycin Oral Syringe) 250 mg Q6 PO Last administered on 18:32; Admin Dose 250 MG; Start 09/26/16 at 18:00 Lactobacillus Acidoph/Bulgaricus (Floranex) 1 tab TID PO Last administered on 14:32; Admin Dose 1 TAB; Start 09/26/16 at 21:00 Atorvastatin Calcium (Lipitor) 20 mg QHS GTB Last administered on 10/04/16 20: 29; Admin Dose 20 MG; Start 09/28/16 at 21:00 Finasteride (Proscar) 5 mg DAILY GTB Last administered on 10/05/16 10:07; Admin Dose 5 MG; Start 09/29/16 at 09:00 Levothyroxine Sodium (Synthroid) 25 mcg DAILY@06 GTB Last administered on 05:15; Admin Dose 25 MCG; Start 09/29/16 at 06:00 Multivitamins Therapeutic (Theragran) 1 tab DAILY GTB Last administered on 10:10; Admin Dose 1 TAB; Start 09/29/16 at 09:00 Zinc Sulfate (Zinc Sulfate) 220 mg DAILY NGT Last administered on 10/05/16 10: 07; Admin Dose 220 MG; Start 09/29/16 at 09:00 Insulin Aspart (Novolog Insulin Pen) NOVOLOG *MILD* ALGORI... Q6 SC ; Start at 18:00 Ondansetron HCl (Zofran Inj) 4 mg Q6H PRN IV NAUSEA AND/OR VOMITING Last administered on 10/05/16 17:42; Admin Dose 4 MG; Start 09/29/16 at 07:30 Heparin Sodium (Porcine) (Heparin (5000 Units/0.5 ml)) 5,000 unit BID SC Last administered on 10/05/16 10:29; Admin Dose 5,000 UNIT; Start 09/29/16 at 09:00 Linezolid (Zyvox) 600 mg BID PO Last administered on 10/05/16 10:07; Admin Dose 600 MG; Start 09/30/16 at 11:30 Acetaminophen 650 mg 650 mg Q6H PRN GTB PAIN AND OR ELEVATED TEMP Last administered on 10/04/16 21:27; Admin Dose 650 MG; Start 10/02/16 at 08:00 Colistimethate Sodium 150 mg/ Sodium Chloride 100 ml @ 200 mls/hr Q24H IVPB Last administered on 10/05/16 10:29; Admin Dose 200 MLS/HR; Start 3/30/17 at 10 :00 Metronidazole 100 ml @ 100 mls/hr Q8 IVPB Last administered on 10/05/16 14:33 ; Admin Dose 100 MLS/HR; Start 10/02/16 at 14:00 Piperacillin Sod/ Tazobactam Sod 100 ml @ 200 mls/hr Q8 IVPB Last administered on 10/05/16 14:33; Admin Dose 200 MLS/HR; Start 10/04/16 at 12:00 Sodium Bicarbonate 50 meq/Dextrose 1,050 ml @ 80 mls/hr Q13H8M IV ; Start at 20:30; Status UNV Potassium Chloride (KCl 20 MEQ/50 ML SW) 50 ml @ 25 mls/hr ONCE ONCE IVPB ; Start 10/05/16 at 20:30; Stop 10/05/16 at 22:29 Metoclopramide HCl (Reglan) 10 mg ONCE ONCE IV ; Start 10/05/16 at 20:30; Stop 10/05/16 at 20:31 CHRISTOPHER MCDONOUGH OFFICE TECHNICIAN Oct 05, 2016 20:29
[2016-10-05] MEDS ORDERED: METOCLOPRAMIDE 10 MG INJ IV ONE (20:30)
[2016-10-05] MEDS ORDERED: SODIUM BICARBONATE (IV ADD) 50 MEQ in DEXTROSE 5% 1,000 ML IV SCH (20:30)
[2016-10-05] MEDS ORDERED: POTASSIUM CHLORIDE 50 ML IVPB ONE (20:30)
[2016-10-05] MEDS: ATORVASTATIN 20 MG TAB GTB SCH (21:42)
[2016-10-05] MEDS: METOCLOPRAMIDE 10 MG TAB PO SCH (21:42)
--- NOTE | 2016-10-05 21:51 | CONS ---
Date/Time of Note Date/Time of Note DATE: 10/05/16 TIME: 21:02 Assessment/Plan Assessment/Plan Chief Complaint/Hosp Course Impression 1. Severe sepsis with septic shock 2/2 Decub ulcers and/or UTI and/or PNA: WBC increasing and having fevers 2. Ileus causing nausea and vomiting. Ileus is shown on KUB from today. 3. Anemia secondary to GI bleed (Coffee ground drainage from G tube). 4. Ecoli bacteremia and UTI : 5. Multifocal pneumonia (E coli / A baumanii) 6. 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 Dysphagia: tube feed dependent on PEG 8. Acute renal failure 2/2 ATN from dehydration: improving 9. Severe multiple pressure ulcers infected with multiple organisms including MRSA 10. Chronic resp failure ventilator dependent Via tracheostomy PLAN: 1. hold tube feed for now. I will check tomorrow to see if we can restart tube feed. 2. start reglan to see if ileus can be improved. 3. repeat KUB tomorrow AM. 4. patient may benefit from diverting colostomy due to his sores. 5. f/u stool for C diff 6. transfuse PRN hgb less than 8 7. consider EGD if family agrees 8. continue protonix bid dosing Problems: Consultation Date/Type/Reason Admit Date/Time Sep 24, 2016 at 03:19 Initial Consult Date 09/24/16 Type of Consultation: GI Referring Provider: ROULA DEL TORO 24 HR Interval Summary Free Text/Dictation call by nurse that patient is nauseous and vomiting. Exam/Review of Systems Vital Signs Vitals Vital Signs Date Time Temp Pulse Resp B/P Pulse Ox O2 Delivery O2 Flow Rate FiO2 10/05/16 20:35 120 10/05/16 20:15 98.4 20 110/46 97 10/05/16 20:10 30 10/05/16 16:00 Mechanical Ventilator Trach Collar Intake and Output 10/04/16 10/04/16 10/05/16 15:00 23:00 07:00 Intake Total 300 ml 1220 ml 1790 ml Output Total 900 ml 1000 ml Balance 300 ml 320 ml 790 ml Exam Constitutional: frail Head: atraumatic, normocephalic Eyes: EOMI, nl conjunctiva, nl lids, nl sclera ENMT: mucosa pink and moist, nl external ears & nose, nl lips & teeth, nl nasal mucosa & septum Neck: non-tender, supple Respiratory: clear to auscultation, normal air movement Cardiovascular: nl pulses, regular rate and rhythm Gastrointestinal: bowel sounds, non-tender, other (GT c/d/i), soft Results Result Diagram: 10/05/16 0616 10/05/16 0616 Results 24 hrs Laboratory Tests Test 10/04/16 23:46 10/05/16 05:14 10/05/16 06:16 10/05/16 12:27 Bedside Glucose 99 71 75 White Blood Count 26.4 #H Red Blood Count 3.62 L Hemoglobin 9.0 L Hematocrit 31.2 L Mean Corpuscular Volume 86.2 Mean Corpuscular Hemoglobin 24.9 L Mean Corpuscular Hemoglobin Concent 28.8 L Red Cell Distribution Width 19.9 H Platelet Count 493 H Mean Platelet Volume 11.3 H Neutrophils % 87.3 H Lymphocytes % 7.5 L Monocytes % 2.9 Eosinophils % 1.2 Basophils % 0.2 Nucleated Red Blood Cells % 0.0 Neutrophils # 23.1 H Lymphocytes # 2.0 Monocytes # 0.8 Eosinophils # 0.3 Basophils # 0.1 Nucleated Red Blood Cells # 0.0 Sodium Level 146 H Potassium Level 3.5 Chloride Level 112 H Carbon Dioxide Level 19 L Anion Gap 19 H Blood Urea Nitrogen 62 H Creatinine 1.69 H Glucose Level 66 #L Calcium Level 8.1 L Test 10/05/16 18:01 10/05/16 18:28 10/05/16 19:00 10/05/16 20:34 Blood Gas Specimen Source Blood arterial Arterial Blood Date Drawn 10/05/2016 6:26:37 PM Arterial Blood pH (Temp corrected) 7.425 Arterial Blood pCO2 (Temp correct) 25.2 L Arterial Blood pO2 (Temp corrected) 100.0 H Arterial Blood HCO3 16.2 L Arterial Blood Base Excess -6.9 L Arterial Blood Oxygen Saturation 97.1 Ki Test ACCEPTAB Arterial Blood Gas Puncture Site Right Radial Arterial Blood Carboxyhemoglobin 0.3 Arterial Blood Methemoglobin 0.5 Blood Gas A-a O2 Differential 84.3 H Oxyhemoglobin Percent 96.3 Total Hemoglobin 10.1 L Blood Gas Temperature 37.0 Blood Gas Respiration Rate 16.0 Blood Gas Actual Respiration Rate 21 Blood Gas Modality VENT - AC FiO2 30.0 Blood Gas Tidal Volume 500.0 Blood Gas High PEEP Setting 5.0 Blood Gas Notified Whom AC Blood Gas Notified Time 10/05/2016 6:37:56 PM Bedside Glucose 70 79 Lactic Acid Level 3.9 H Medications Medications Current Medications Acetaminophen (Tylenol Supp) 650 mg Q4H PRN [place] PAIN LEVEL 1-3 OR FEVER; Start 09/24/16 at 03:00 Eye Lubricant (Artificial Tears Oph) 1 drop TID BOTH EYES Last administered on 10/05/16 14:32; Admin Dose 1 DROP; Start 09/24/16 at 09:00 Sodium Hypochlorite (Dakin'S (1/4 Strength)) 1 applic BID IRR Last administered on 10/05/16 10:11; Admin Dose 1 APPLIC; Start 09/24/16 at 21:00 Pantoprazole (Protonix Iv) 40 mg BID@06,18 IV Last administered on 10/05/16 18: 29; Admin Dose 40 MG; Start 09/24/16 at 18:00 Collagenase (Santyl) 1 applic DAILY TOP Last administered on 10/05/16 09:00; Admin Dose 1 APPLIC; Start 09/24/16 at 20:30 Miscellaneous Information 1 ea NOTE XX ; Start 09/24/16 at 21:00 Glucose (Glutose) 15 gm Q15M PRN PO DECREASED GLUCOSE; Start 09/24/16 at 21:00 Glucose (Glutose) 22.5 gm Q15M PRN PO DECREASED GLUCOSE; Start 09/24/16 at 21: 00 Dextrose (D50w Syringe) 25 ml Q15M PRN IV DECREASED GLUCOSE; Start 09/24/16 at 21:00 Dextrose (D50w Syringe) 50 ml Q15M PRN IV DECREASED GLUCOSE; Start 09/24/16 at 21:00 Glucagon (Glucagen) 1 mg Q15M PRN IM DECREASED GLUCOSE; Start 09/24/16 at 21:00 Glucose 15 gm 15 gm Q15M PRN BUCCAL DECREASED GLUCOSE; Start 09/24/16 at 21:00 Acetaminophen (Ofirmev 1000mg/ 100ml Iv) 100 ml @ 400 mls/hr Q6H PRN IVPB FEVER Last administered on 09/29/16 20:27; Admin Dose 400 MLS/HR; Start at 22:00 Mupirocin (Bactroban) 1 applic BID TOP Last administered on 10/05/16 10:08; Admin Dose 1 APPLIC; Start 09/25/16 at 21:00 Vancomycin HCl (Vancomycin Oral Syringe) 250 mg Q6 PO Last administered on 18:32; Admin Dose 250 MG; Start 09/26/16 at 18:00 Lactobacillus Acidoph/Bulgaricus (Floranex) 1 tab TID PO Last administered on 14:32; Admin Dose 1 TAB; Start 09/26/16 at 21:00 Atorvastatin Calcium (Lipitor) 20 mg QHS GTB Last administered on 10/04/16 20: 29; Admin Dose 20 MG; Start 09/28/16 at 21:00 Finasteride (Proscar) 5 mg DAILY GTB Last administered on 10/05/16 10:07; Admin Dose 5 MG; Start 09/29/16 at 09:00 Levothyroxine Sodium (Synthroid) 25 mcg DAILY@06 GTB Last administered on 05:15; Admin Dose 25 MCG; Start 09/29/16 at 06:00 Multivitamins Therapeutic (Theragran) 1 tab DAILY GTB Last administered on 10:10; Admin Dose 1 TAB; Start 09/29/16 at 09:00 Zinc Sulfate (Zinc Sulfate) 220 mg DAILY NGT Last administered on 10/05/16 10: 07; Admin Dose 220 MG; Start 09/29/16 at 09:00 Insulin Aspart (Novolog Insulin Pen) NOVOLOG *MILD* ALGORI... Q6 SC ; Start at 18:00 Ondansetron HCl (Zofran Inj) 4 mg Q6H PRN IV NAUSEA AND/OR VOMITING Last administered on 10/05/16 17:42; Admin Dose 4 MG; Start 09/29/16 at 07:30 Heparin Sodium (Porcine) (Heparin (5000 Units/0.5 ml)) 5,000 unit BID SC Last administered on 10/05/16 10:29; Admin Dose 5,000 UNIT; Start 09/29/16 at 09:00 Linezolid (Zyvox) 600 mg BID PO Last administered on 10/05/16 10:07; Admin Dose 600 MG; Start 09/30/16 at 11:30 Acetaminophen 650 mg 650 mg Q6H PRN GTB PAIN AND OR ELEVATED TEMP Last administered on 10/04/16 21:27; Admin Dose 650 MG; Start 10/02/16 at 08:00 Colistimethate Sodium 150 mg/ Sodium Chloride 100 ml @ 200 mls/hr Q24H IVPB Last administered on 10/05/16 10:29; Admin Dose 200 MLS/HR; Start 10/03/16 at 10 :00 Metronidazole 100 ml @ 100 mls/hr Q8 IVPB Last administered on 10/05/16 14:33 ; Admin Dose 100 MLS/HR; Start 10/02/16 at 14:00 Piperacillin Sod/ Tazobactam Sod 100 ml @ 200 mls/hr Q8 IVPB Last administered on 10/05/16 14:33; Admin Dose 200 MLS/HR; Start 10/04/16 at 12:00 Potassium Chloride 50 ml @ 25 mls/hr ONCE ONCE IVPB ; Start 10/05/16 at 20:30; Stop 10/05/16 at 22:29 Sodium Bicarbonate/ Dextrose (Na Bicarb/D5W) 1,050 ml @ 80 mls/hr Q13H8M IV ; Start 10/05/16 at 20:30 RUDY MORE MD Oct 05, 2016 21:19
[2016-10-05] MEDS: SODIUM BICARBONATE (IV ADD) 50 MEQ in DEXTROSE 5% 1,000 ML IV SCH (22:04)
--- NOTE | 2016-10-05 22:10 | CONS ---
Date/Time of Note Date/Time of Note DATE: 10/05/16 TIME: 22:07 Assessment/Plan Assessment/Plan Additional Assessment/Plan 1. Acute kidney injury on chronic kidney disease. This is likely secondary to severe prerenal azotemia causing ischemic acute tubular necrosis. 2. Severe hyponatremia with a sodium of 165 - now improved with D5 W 3. Contraction metabolic alkalosis with a bicarbonate of 40.- improved 4. Septic shock with lactic acid of 8.7 secondary to UTI 5. History of chronic respiratory failure, status post tracheostomy, on ventilator. 6. History of G-tube. 7. Poor mental status due to the previous cerebrovascular accident. 8. History of dementia. 9. History of hypertension. PLAN: Na stable, BUN improved but Cr went up, HCO3 dropped, pt had a 4 episodes of vomiting, TF on hold will given Reglan 10mg iV x 1 dose now , U/O 1.5 liter add 1 ampoule of Sodium bicarbonate to current IVF D5W IV abx for sepsis will follow up Consultation Date/Type/Reason Admit Date/Time Sep 24, 2016 at 03:19 Initial Consult Date 09/24/16 Type of Consultation: NEPHROLOGY Reason for Consultation acute kidney injury, uremia, Metabolic acidosis Referring Provider: ROULA DEL TORO 24 HR Interval Summary Free Text/Dictation Cr bumped to 1.69, afebrile, Bp stable, Pt had a 4 episodes of non biliour non bloody vomiting Exam/Review of Systems Vital Signs Vitals Vital Signs Date Time Temp Pulse Resp B/P Pulse Ox O2 Delivery O2 Flow Rate FiO2 10/05/16 21:30 120 25 97 30 10/05/16 20:15 98.4 110/46 10/05/16 16:00 Mechanical Ventilator Trach Collar Intake and Output 10/04/16 10/04/16 10/05/16 15:00 23:00 07:00 Intake Total 300 ml 1220 ml 1790 ml Output Total 900 ml 1000 ml Balance 300 ml 320 ml 790 ml Exam GENERAL: This is a chronically ill-appearing, elderly man who is awake, noncommunicative, in no distress. HEENT: Head atraumatic, normocephalic. Sclerae anicteric. Buccal mucosa dry. NECK: Supple. Tracheostomy present. CHEST: Rise symmetrical. Breath sounds diminished to bases. HEART: S1, S2. ABDOMEN: Soft, bowel sounds present. EXTREMITIES: Without cyanosis. Trace edema. Results Result Diagram: 10/05/16 0616 10/05/16 0616 Results 24 hrs Laboratory Tests Test 10/04/16 23:46 10/05/16 05:14 10/05/16 06:16 10/05/16 12:27 Bedside Glucose 99 71 75 White Blood Count 26.4 #H Red Blood Count 3.62 L Hemoglobin 9.0 L Hematocrit 31.2 L Mean Corpuscular Volume 86.2 Mean Corpuscular Hemoglobin 24.9 L Mean Corpuscular Hemoglobin Concent 28.8 L Red Cell Distribution Width 19.9 H Platelet Count 493 H Mean Platelet Volume 11.3 H Neutrophils % 87.3 H Lymphocytes % 7.5 L Monocytes % 2.9 Eosinophils % 1.2 Basophils % 0.2 Nucleated Red Blood Cells % 0.0 Neutrophils # 23.1 H Lymphocytes # 2.0 Monocytes # 0.8 Eosinophils # 0.3 Basophils # 0.1 Nucleated Red Blood Cells # 0.0 Sodium Level 146 H Potassium Level 3.5 Chloride Level 112 H Carbon Dioxide Level 19 L Anion Gap 19 H Blood Urea Nitrogen 62 H Creatinine 1.69 H Glucose Level 66 #L Calcium Level 8.1 L Test 10/05/16 18:01 10/05/16 18:28 10/05/16 19:00 10/05/16 20:34 Blood Gas Specimen Source Blood arterial Arterial Blood Date Drawn 10/05/2016 6:26:37 PM Arterial Blood pH (Temp corrected) 7.425 Arterial Blood pCO2 (Temp correct) 25.2 L Arterial Blood pO2 (Temp corrected) 100.0 H Arterial Blood HCO3 16.2 L Arterial Blood Base Excess -6.9 L Arterial Blood Oxygen Saturation 97.1 Ki Test ACCEPTAB Arterial Blood Gas Puncture Site Right Radial Arterial Blood Carboxyhemoglobin 0.3 Arterial Blood Methemoglobin 0.5 Blood Gas A-a O2 Differential 84.3 H Oxyhemoglobin Percent 96.3 Total Hemoglobin 10.1 L Blood Gas Temperature 37.0 Blood Gas Respiration Rate 16.0 Blood Gas Actual Respiration Rate 21 Blood Gas Modality VENT - AC FiO2 30.0 Blood Gas Tidal Volume 500.0 Blood Gas High PEEP Setting 5.0 Blood Gas Notified Whom AC Blood Gas Notified Time 10/05/2016 6:37:56 PM Bedside Glucose 70 79 Lactic Acid Level 3.9 H Medications Medications Current Medications Acetaminophen (Tylenol Supp) 650 mg Q4H PRN [place] PAIN LEVEL 1-3 OR FEVER; Start 09/24/16 at 03:00 Eye Lubricant (Artificial Tears Oph) 1 drop TID BOTH EYES Last administered on 10/05/16 21:44; Admin Dose 1 DROP; Start 09/24/16 at 09:00 Sodium Hypochlorite (Dakin'S (1/4 Strength)) 1 applic BID IRR Last administered on 10/05/16 21:43; Admin Dose 1 APPLIC; Start 09/24/16 at 21:00 Pantoprazole (Protonix Iv) 40 mg BID@06,18 IV Last administered on 10/05/16 18: 29; Admin Dose 40 MG; Start 09/24/16 at 18:00 Collagenase (Santyl) 1 applic DAILY TOP Last administered on 10/05/16 09:00; Admin Dose 1 APPLIC; Start 09/24/16 at 20:30 Miscellaneous Information 1 ea NOTE XX ; Start 09/24/16 at 21:00 Glucose (Glutose) 15 gm Q15M PRN PO DECREASED GLUCOSE; Start 09/24/16 at 21:00 Glucose (Glutose) 22.5 gm Q15M PRN PO DECREASED GLUCOSE; Start 09/24/16 at 21: 00 Dextrose (D50w Syringe) 25 ml Q15M PRN IV DECREASED GLUCOSE; Start 09/24/16 at 21:00 Dextrose (D50w Syringe) 50 ml Q15M PRN IV DECREASED GLUCOSE; Start 09/24/16 at 21:00 Glucagon (Glucagen) 1 mg Q15M PRN IM DECREASED GLUCOSE; Start 09/24/16 at 21:00 Glucose 15 gm 15 gm Q15M PRN BUCCAL DECREASED GLUCOSE; Start 09/24/16 at 21:00 Acetaminophen (Ofirmev 1000mg/ 100ml Iv) 100 ml @ 400 mls/hr Q6H PRN IVPB FEVER Last administered on 09/29/16 20:27; Admin Dose 400 MLS/HR; Start at 22:00 Mupirocin (Bactroban) 1 applic BID TOP Last administered on 10/05/16 21:44; Admin Dose 1 APPLIC; Start 09/25/16 at 21:00 Vancomycin HCl (Vancomycin Oral Syringe) 250 mg Q6 PO Last administered on 22:04; Admin Dose 250 MG; Start 09/26/16 at 18:00 Lactobacillus Acidoph/Bulgaricus (Floranex) 1 tab TID PO Last administered on 21:42; Admin Dose 1 TAB; Start 09/26/16 at 21:00 Atorvastatin Calcium (Lipitor) 20 mg QHS GTB Last administered on 10/05/16 21: 42; Admin Dose 20 MG; Start 09/28/16 at 21:00 Finasteride (Proscar) 5 mg DAILY GTB Last administered on 10/05/16 10:07; Admin Dose 5 MG; Start 09/29/16 at 09:00 Levothyroxine Sodium (Synthroid) 25 mcg DAILY@06 GTB Last administered on 05:15; Admin Dose 25 MCG; Start 09/29/16 at 06:00 Multivitamins Therapeutic (Theragran) 1 tab DAILY GTB Last administered on 10:10; Admin Dose 1 TAB; Start 09/29/16 at 09:00 Zinc Sulfate (Zinc Sulfate) 220 mg DAILY NGT Last administered on 10/05/16 10: 07; Admin Dose 220 MG; Start 09/29/16 at 09:00 Insulin Aspart (Novolog Insulin Pen) NOVOLOG *MILD* ALGORI... Q6 SC ; Start at 18:00 Ondansetron HCl (Zofran Inj) 4 mg Q6H PRN IV NAUSEA AND/OR VOMITING Last administered on 10/05/16 17:42; Admin Dose 4 MG; Start 09/29/16 at 07:30 Heparin Sodium (Porcine) (Heparin (5000 Units/0.5 ml)) 5,000 unit BID SC Last administered on 10/05/16 21:51; Admin Dose 5,000 UNIT; Start 09/29/16 at 09:00 Linezolid (Zyvox) 600 mg BID PO Last administered on 10/05/16 21:42; Admin Dose 600 MG; Start 09/30/16 at 11:30 Acetaminophen 650 mg 650 mg Q6H PRN GTB PAIN AND OR ELEVATED TEMP Last administered on 10/04/16 21:27; Admin Dose 650 MG; Start 10/02/16 at 08:00 Colistimethate Sodium 150 mg/ Sodium Chloride 100 ml @ 200 mls/hr Q24H IVPB Last administered on 10/05/16 10:29; Admin Dose 200 MLS/HR; Start 10/03/16 at 10 :00 Metronidazole 100 ml @ 100 mls/hr Q8 IVPB Last administered on 10/05/16 21:42 ; Admin Dose 100 MLS/HR; Start 10/02/16 at 14:00 Piperacillin Sod/ Tazobactam Sod 100 ml @ 200 mls/hr Q8 IVPB Last administered on 10/05/16 21:42; Admin Dose 200 MLS/HR; Start 10/04/16 at 12:00 Potassium Chloride 50 ml @ 25 mls/hr ONCE ONCE IVPB Last administered on 22:04; Admin Dose 25 MLS/HR; Start 10/05/16 at 20:30; Stop 10/05/16 at 22:29 Sodium Bicarbonate/ Dextrose (Na Bicarb/D5W) 1,050 ml @ 80 mls/hr Q13H8M IV Last administered on 10/05/16 22:04; Admin Dose 80 MLS/HR; Start 10/05/16 at 20: 30 Metoclopramide HCl (Reglan) 10 mg Q8 PO Last administered on 10/05/16 21:42; Admin Dose 10 MG; Start 10/05/16 at 22:00 MAGGIE DINERO MD Oct 05, 2016 22:10
[2016-10-06] VITALS (83 sets, daily range): BP systolic 71–110; BP diastolic 32–92; PULSE 90–126; RESP 17–46
[2016-10-06] MEDS: MIDODRINE 5 MG TAB PO SCH ×4 (01:00→17:15)
[2016-10-06] MEDS ORDERED: ALBUMIN HUMAN 25% 100 ML IV ONE (01:00)
[2016-10-06] MEDS: IPRATROPIUM (HFA) 12.9 GM INHALER INH SCH ×4 (01:44→20:01)
[2016-10-06] MEDS: ALBUTEROL HFA 8 GM INHALER INH SCH ×4 (01:44→20:01)
[2016-10-06 04:59] LABS: ADD SCAN DIFF NO
[2016-10-06 05:13] LABS: ABNORMAL IP MESSAGE 1; HEMATOCRIT 26.3 % (42.0-52.0); HEMOGLOBIN 7.5 g/dl (14.0-18.0); MEAN CORPUSCULAR HEMOGLOBIN 24.6 pg (29.0-33.0); MEAN CORPUSCULAR HGB CONC 28.5 g/dl (32.0-37.0); MEAN CORPUSCULAR VOLUME 86.2 fl (82.0-101.0); MEAN PLATELET VOLUME 11.3 fl (7.4-10.4); PLATELET COUNT 416 10^3/UL (140-415); RED BLOOD COUNT 3.05 10^6/ul (4.70-6.10); RED CELL DISTRIBUTION WIDTH 19.9 % (11.5-14.5); WHITE BLOOD COUNT 30.5 10^3/ul (4.8-10.8)
[2016-10-06 05:36] LABS: CREATININE 2.33 mg/dl (0.61-1.24)
[2016-10-06] MEDS ORDERED: PANTOPRAZOLE 40 MG INJ IV SCH (06:00)
[2016-10-06] MEDS: LEVOTHYROXINE 25 MCG TAB GTB SCH (06:00)
[2016-10-06] MEDS: PIPER-TAZO 3.375 GM IV (PMX) 100 ML IVPB SCH (06:00)
[2016-10-06] MEDS: PANTOPRAZOLE 40 MG INJ IV SCH ×2 (08:31→17:15)
[2016-10-06] MEDS: metroNIDAZOLE 500 MG/NS (PMX) 100 ML IVPB SCH ×3 (08:32→22:30)
--- NOTE | 2016-10-06 08:33 | PN ---
Date/Time of Note Date/Time of Note DATE: 10/06/16 TIME: 08:27 Assessment/Plan VTE Prophylaxis VTE Prophylaxis Intervention: other Lines/Catheters IV Catheter Type (from Nrs): Central Line Central line still needed: Yes Urinary Cath still in place: Yes Reason Cath still needed: urinary retention Assessment/Plan Assessment/Plan 1. Acute kidney injury on chronic kidney disease. This is likely secondary to severe prerenal azotemia causing ischemic acute tubular necrosis. - per nephrology 2. Severe hyponatremia resolved- sodium of 140 today 3. Contraction metabolic alkalosis with a bicarbonate of 40.- improved 4. Septic shock with lactic acid of 8.7 secondary to UTI. today = 4.3 - per ID 5. Ileus- TF on hold - per GI - rectal tube noted- intact 5. History of chronic respiratory failure, status post tracheostomy, on ventilator. - per pulmonary 6. History of G-tube. 7. Poor mental status due to the previous cerebrovascular accident. 8. History of dementia. 9. History of hypertension. PLAN: -Na stable - BUN improved but Cr went up, HCO3 dropped, - No VOMITTING, TF on hold - U/O 1.5 liter - Cont. add 1 ampoule of Sodium bicarbonate to current IVF D5W - IV abx for sepsis Total time spent 60 minutes on this patient's follow up progress note, communicating with Nursing Staff, and discussing with MD. Further clinical recommendations depend upon patient's clinical course. Dw Dr Javier Cruz. Subjective 24 Hr Interval Summary Free Text/Dictation Admit Date/Time Sep 24, 2016 at 03:19 Initial Consult Date 09/24/16 Type of Consultation: NEPHROLOGY Reason for Consultation acute kidney injury, uremia, Metabolic acidosis Referring Provider: ROULA DEL TORO 24 HR Interval Summary Free Text/Dictation Cr bumped to 2.33, afebrile, Bp stable, Pt had a 4 episodes of non bilious non bloody vomiting yesterday. non at present. Subjective hx not possible: pt non-verbal, pt critical status Constitutional: requiring IVF, requiring O2 Exam/Review of Systems Vital Signs Vitals Vital Signs Date Time Temp Pulse Resp B/P Pulse Ox O2 Delivery O2 Flow Rate FiO2 10/06/16 07:35 98 22 98 30 10/06/16 04:30 83/39 Mechanical Ventilator 10/06/16 03:30 97.3 Intake and Output 10/05/16 10/05/16 10/06/16 15:00 23:00 07:00 Intake Total 915 ml 240 ml Output Total 1500 ml Balance -585 ml 240 ml Exam Constitutional: frail Results Result Diagram: 10/06/16 0419 10/06/16 0419 Results 24 hrs Laboratory Tests Test 10/05/16 12:27 10/05/16 18:01 10/05/16 18:28 10/05/16 19:00 Bedside Glucose 75 70 Blood Gas Specimen Source Blood arterial Arterial Blood Date Drawn 10/05/2016 6:26:37 PM Arterial Blood pH (Temp corrected) 7.425 Arterial Blood pCO2 (Temp correct) 25.2 L Arterial Blood pO2 (Temp corrected) 100.0 H Arterial Blood HCO3 16.2 L Arterial Blood Base Excess -6.9 L Arterial Blood Oxygen Saturation 97.1 Ki Test ACCEPTAB Arterial Blood Gas Puncture Site Right Radial Arterial Blood Carboxyhemoglobin 0.3 Arterial Blood Methemoglobin 0.5 Blood Gas A-a O2 Differential 84.3 H Oxyhemoglobin Percent 96.3 Total Hemoglobin 10.1 L Blood Gas Temperature 37.0 Blood Gas Respiration Rate 16.0 Blood Gas Actual Respiration Rate 21 Blood Gas Modality VENT - AC FiO2 30.0 Blood Gas Tidal Volume 500.0 Blood Gas High PEEP Setting 5.0 Blood Gas Notified Whom AC Blood Gas Notified Time 10/05/2016 6:37:56 PM Lactic Acid Level 3.9 H Test 10/05/16 20:34 10/06/16 00:48 10/06/16 00:57 10/06/16 04:19 Bedside Glucose 79 73 Lactic Acid Level 4.8 *H 4.3 *H White Blood Count 30.5 H Red Blood Count 3.05 L Hemoglobin 7.5 L Hematocrit 26.3 L Mean Corpuscular Volume 86.2 Mean Corpuscular Hemoglobin 24.6 L Mean Corpuscular Hemoglobin Concent 28.5 L Red Cell Distribution Width 19.9 H Platelet Count 416 H Mean Platelet Volume 11.3 H Sodium Level 140 Potassium Level 4.0 Chloride Level 115 H Carbon Dioxide Level 17 L Anion Gap 12 # Blood Urea Nitrogen 63 H Creatinine 2.33 H Glucose Level 68 L Calcium Level 8.0 L Magnesium Level 2.0 Medications Medications Current Medications Acetaminophen (Tylenol Supp) 650 mg Q4H PRN [place] PAIN LEVEL 1-3 OR FEVER; Start 09/24/16 at 03:00 Eye Lubricant (Artificial Tears Oph) 1 drop TID BOTH EYES Last administered on 10/05/16 21:44; Admin Dose 1 DROP; Start 09/24/16 at 09:00 Sodium Hypochlorite (Dakin'S (1/4 Strength)) 1 applic BID IRR Last administered on 10/05/16 21:43; Admin Dose 1 APPLIC; Start 09/24/16 at 21:00 Pantoprazole (Protonix Iv) 40 mg BID@06,18 IV Last administered on 10/05/16 18: 29; Admin Dose 40 MG; Start 09/24/16 at 18:00 Collagenase (Santyl) 1 applic DAILY TOP Last administered on 10/05/16 09:00; Admin Dose 1 APPLIC; Start 09/24/16 at 20:30 Miscellaneous Information 1 ea NOTE XX ; Start 09/24/16 at 21:00 Glucose (Glutose) 15 gm Q15M PRN PO DECREASED GLUCOSE; Start 09/24/16 at 21:00 Glucose (Glutose) 22.5 gm Q15M PRN PO DECREASED GLUCOSE; Start 09/24/16 at 21: 00 Dextrose (D50w Syringe) 25 ml Q15M PRN IV DECREASED GLUCOSE; Start 09/24/16 at 21:00 Dextrose (D50w Syringe) 50 ml Q15M PRN IV DECREASED GLUCOSE; Start 09/24/16 at 21:00 Glucagon (Glucagen) 1 mg Q15M PRN IM DECREASED GLUCOSE; Start 09/24/16 at 21:00 Glucose 15 gm 15 gm Q15M PRN BUCCAL DECREASED GLUCOSE; Start 09/24/16 at 21:00 Acetaminophen (Ofirmev 1000mg/ 100ml Iv) 100 ml @ 400 mls/hr Q6H PRN IVPB FEVER Last administered on 09/29/16 20:27; Admin Dose 400 MLS/HR; Start at 22:00 Mupirocin (Bactroban) 1 applic BID TOP Last administered on 10/05/16 21:44; Admin Dose 1 APPLIC; Start 09/25/16 at 21:00 Vancomycin HCl (Vancomycin Oral Syringe) 250 mg Q6 PO Last administered on 22:04; Admin Dose 250 MG; Start 09/26/16 at 18:00 Lactobacillus Acidoph/Bulgaricus (Floranex) 1 tab TID PO Last administered on 21:42; Admin Dose 1 TAB; Start 09/26/16 at 21:00 Atorvastatin Calcium (Lipitor) 20 mg QHS GTB Last administered on 10/05/16 21: 42; Admin Dose 20 MG; Start 09/28/16 at 21:00 Finasteride (Proscar) 5 mg DAILY GTB Last administered on 10/05/16 10:07; Admin Dose 5 MG; Start 09/29/16 at 09:00 Levothyroxine Sodium (Synthroid) 25 mcg DAILY@06 GTB Last administered on 05:15; Admin Dose 25 MCG; Start 09/29/16 at 06:00 Multivitamins Therapeutic (Theragran) 1 tab DAILY GTB Last administered on 10:10; Admin Dose 1 TAB; Start 09/29/16 at 09:00 Zinc Sulfate (Zinc Sulfate) 220 mg DAILY NGT Last administered on 10/05/16 10: 07; Admin Dose 220 MG; Start 09/29/16 at 09:00 Insulin Aspart (Novolog Insulin Pen) NOVOLOG *MILD* ALGORI... Q6 SC ; Start at 18:00 Ondansetron HCl (Zofran Inj) 4 mg Q6H PRN IV NAUSEA AND/OR VOMITING Last administered on 10/05/16 17:42; Admin Dose 4 MG; Start 09/29/16 at 07:30 Heparin Sodium (Porcine) (Heparin (5000 Units/0.5 ml)) 5,000 unit BID SC Last administered on 10/05/16 21:51; Admin Dose 5,000 UNIT; Start 09/29/16 at 09:00 Linezolid (Zyvox) 600 mg BID PO Last administered on 10/05/16 21:42; Admin Dose 600 MG; Start 09/30/16 at 11:30 Acetaminophen 650 mg 650 mg Q6H PRN GTB PAIN AND OR ELEVATED TEMP Last administered on 10/04/16 21:27; Admin Dose 650 MG; Start 10/02/16 at 08:00 Colistimethate Sodium 150 mg/ Sodium Chloride 100 ml @ 200 mls/hr Q24H IVPB Last administered on 10/05/16 10:29; Admin Dose 200 MLS/HR; Start 10/03/16 at 10 :00 Metronidazole 100 ml @ 100 mls/hr Q8 IVPB Last administered on 10/05/16 21:42 ; Admin Dose 100 MLS/HR; Start 10/02/16 at 14:00 Piperacillin Sod/ Tazobactam Sod 100 ml @ 200 mls/hr Q8 IVPB Last administered on 10/05/16 21:42; Admin Dose 200 MLS/HR; Start 10/04/16 at 12:00 Sodium Bicarbonate/ Dextrose (Na Bicarb/D5W) 1,050 ml @ 80 mls/hr Q13H8M IV Last administered on 10/05/16 22:04; Admin Dose 80 MLS/HR; Start 10/05/16 at 20: 30 Metoclopramide HCl (Reglan) 10 mg Q8 PO Last administered on 10/05/16 21:42; Admin Dose 10 MG; Start 10/05/16 at 22:00 Midodrine (Proamatine) 10 mg TID@09,13,17 PO Last administered on 10/06/16 01: 00; Admin Dose 10 MG; Start 10/06/16 at 01:00 NOELLE HYMAN Oct 06, 2016 08:33
[2016-10-06] MEDS: HEPARIN 5,000 UNIT/0.5 ML VIAL SC SCH ×2 (08:58→21:24)
[2016-10-06] MEDS: ARTIFICIAL TEARS 15 ML OPH BOTH EYES SCH ×3 (09:00→21:00)
[2016-10-06] MEDS: VANCOMYCIN HCL 250 MG/5ML POSYG PO SCH ×3 (09:11→17:15)
[2016-10-06] MEDS: METOCLOPRAMIDE 10 MG TAB PO SCH ×2 (09:11→14:27)
[2016-10-06] MEDS: MULTIVITAMINS THERAPEUTIC TAB GTB SCH (09:12)
[2016-10-06] MEDS: FINASTERIDE 5 MG TAB GTB SCH (09:12)
[2016-10-06] MEDS: INSULIN ASPART [NOVOLOG] 3 ML PEN SC SCH ×3 (09:12→18:00)
[2016-10-06] MEDS: ZINC SULFATE 220 MG CAP NGT SCH (09:13)
[2016-10-06] MEDS: LACTOBACILLUS CHEW TAB PO SCH ×3 (09:13→21:00)
[2016-10-06] MEDS: ZYVOX 600 MG TAB PO SCH (09:14)
[2016-10-06] MEDS: SODIUM BICARBONATE (IV ADD) 50 MEQ in DEXTROSE 5% 1,000 ML IV SCH (09:38)
[2016-10-06 10:03] LABS: LYMPHOCYTES # 1.2 10^3/ul (0.8-2.9); MONOCYTE # 0.6 10^3/ul (0.3-0.9); NEUTROPHIL # 27.5 10^3/ul (1.6-7.5)
--- NOTE | 2016-10-06 10:26 | CONS ---
Date/Time of Note Date/Time of Note DATE: 10/06/16 TIME: 10:25 Assessment/Plan Assessment/Plan Chief Complaint/Hosp Course ANEMIA - NEAR- MICROCYTIC WITH INCREASED RDW DROP H/H DURING HOSPITALIZATION + ACD TRANSFUSE PRBC TO KEEP HB MORE THAN 8 TRANSFUSE NEEDED GI F-UP Stool OB, negative Monitor H&H every 8 hours, transfuse 2 units for hemoglobin less than 8 Continue PPI drips EGD PER [facility] LEUKOCYTOSIS- REACTIVE CONT ATB FOR SEPSIS THROMBOCYTOSIS REACTIVE SHOULD IMPROVE WITH RESOLUTION OF SEPSIS Severe sepsis with septic shock 2/2 Decub ulcers and/or UTI and/or PNA: stable, off pressor support Severe hypernatremic dehydration Acute renal failure 2/2 ATN from dehydration UTI Multifocal pneumonia Encephalopathy ?acute versus acute on chronic (baseline unknown) Hypokalemia Problems: Consultation Date/Type/Reason Admit Date/Time Sep 24, 2016 at 03:19 Initial Consult Date 09/24/16 Type of Consultation: hemeon Referring Provider: ROULA DEL TORO 24 HR Interval Summary Free Text/Dictation all noted d/w RN Exam/Review of Systems Vital Signs Vitals Vital Signs Date Time Temp Pulse Resp B/P Pulse Ox O2 Delivery O2 Flow Rate FiO2 10/06/16 07:35 98 22 98 30 10/06/16 04:30 83/39 Mechanical Ventilator 10/06/16 03:30 97.3 Intake and Output 10/05/16 10/05/16 10/06/16 15:00 23:00 07:00 Intake Total 915 ml 240 ml Output Total 1500 ml Balance -585 ml 240 ml Exam Constitutional: No alert, No oriented Psych: No nl mood/affect Head: atraumatic, normocephalic Eyes: nl conjunctiva, No EOMI, No icteric ENMT: mucosa pink and moist, nl external ears & nose Neck: jvd, other (Trach in place), No non-tender, No supple Respiratory: No congested cough, No labored breathing Cardiovascular: No regular rate and rhythm Gastrointestinal: non-tender, other (PEG in place), soft, No rebound or guarding Musculoskeletal: No joint tenderness, No nl extremities to inspection, No nl gait and stance Extremities: No calf tenderness, No cyanosis Neurological: No nl mental status, No nl speech, No nl strength Skin: rash or lesions (Multiple decubitus ulcerations with debris, necrotic tissue, deep tissue injury), No diaphoresis, No nl turgor Lymph: nontender Results Result Diagram: 10/06/16 0419 10/06/16 0419 Results 24 hrs Laboratory Tests Test 10/05/16 12:27 10/05/16 18:01 10/05/16 18:28 10/05/16 19:00 Bedside Glucose 75 70 Blood Gas Specimen Source Blood arterial Arterial Blood Date Drawn 10/05/2016 6:26:37 PM Arterial Blood pH (Temp corrected) 7.425 Arterial Blood pCO2 (Temp correct) 25.2 L Arterial Blood pO2 (Temp corrected) 100.0 H Arterial Blood HCO3 16.2 L Arterial Blood Base Excess -6.9 L Arterial Blood Oxygen Saturation 97.1 Ki Test ACCEPTAB Arterial Blood Gas Puncture Site Right Radial Arterial Blood Carboxyhemoglobin 0.3 Arterial Blood Methemoglobin 0.5 Blood Gas A-a O2 Differential 84.3 H Oxyhemoglobin Percent 96.3 Total Hemoglobin 10.1 L Blood Gas Temperature 37.0 Blood Gas Respiration Rate 16.0 Blood Gas Actual Respiration Rate 21 Blood Gas Modality VENT - AC FiO2 30.0 Blood Gas Tidal Volume 500.0 Blood Gas High PEEP Setting 5.0 Blood Gas Notified Whom AC Blood Gas Notified Time 10/05/2016 6:37:56 PM Lactic Acid Level 3.9 H Test 10/05/16 20:34 10/06/16 00:48 10/06/16 00:57 10/06/16 04:19 Bedside Glucose 79 73 Lactic Acid Level 4.8 *H 4.3 *H White Blood Count 30.5 H Red Blood Count 3.05 L Hemoglobin 7.5 L Hematocrit 26.3 L Mean Corpuscular Volume 86.2 Mean Corpuscular Hemoglobin 24.6 L Mean Corpuscular Hemoglobin Concent 28.5 L Red Cell Distribution Width 19.9 H Platelet Count 416 H Mean Platelet Volume 11.3 H Neutrophils % 90.0 H Band Neutrophils % 4.0 Lymphocytes % 4.0 L Monocytes % 2.0 Neutrophils # 27.5 H Lymphocytes # 1.2 Monocytes # 0.6 Sodium Level 140 Potassium Level 4.0 Chloride Level 115 H Carbon Dioxide Level 17 L Anion Gap 12 # Blood Urea Nitrogen 63 H Creatinine 2.33 H Glucose Level 68 L Calcium Level 8.0 L Magnesium Level 2.0 Test 10/06/16 09:02 Bedside Glucose 98 Medications Medications Current Medications Acetaminophen (Tylenol Supp) 650 mg Q4H PRN [place] PAIN LEVEL 1-3 OR FEVER; Start 09/24/16 at 03:00 Eye Lubricant (Artificial Tears Oph) 1 drop TID BOTH EYES Last administered on 10/05/16 21:44; Admin Dose 1 DROP; Start 09/24/16 at 09:00 Sodium Hypochlorite (Dakin'S (1/4 Strength)) 1 applic BID IRR Last administered on 10/05/16 21:43; Admin Dose 1 APPLIC; Start 09/24/16 at 21:00 Pantoprazole (Protonix Iv) 40 mg BID@06,18 IV Last administered on 10/06/16 08: 31; Admin Dose 40 MG; Start 09/24/16 at 18:00 Collagenase (Santyl) 1 applic DAILY TOP Last administered on 10/05/16 09:00; Admin Dose 1 APPLIC; Start 09/24/16 at 20:30 Miscellaneous Information 1 ea NOTE XX ; Start 09/24/16 at 21:00 Glucose (Glutose) 15 gm Q15M PRN PO DECREASED GLUCOSE; Start 09/24/16 at 21:00 Glucose (Glutose) 22.5 gm Q15M PRN PO DECREASED GLUCOSE; Start 09/24/16 at 21: 00 Dextrose (D50w Syringe) 25 ml Q15M PRN IV DECREASED GLUCOSE; Start 09/24/16 at 21:00 Dextrose (D50w Syringe) 50 ml Q15M PRN IV DECREASED GLUCOSE; Start 09/24/16 at 21:00 Glucagon (Glucagen) 1 mg Q15M PRN IM DECREASED GLUCOSE; Start 09/24/16 at 21:00 Glucose 15 gm 15 gm Q15M PRN BUCCAL DECREASED GLUCOSE; Start 09/24/16 at 21:00 Acetaminophen (Ofirmev 1000mg/ 100ml Iv) 100 ml @ 400 mls/hr Q6H PRN IVPB FEVER Last administered on 09/29/16 20:27; Admin Dose 400 MLS/HR; Start at 22:00 Vancomycin HCl (Vancomycin Oral Syringe) 250 mg Q6 PO Last administered on 09:11; Admin Dose 250 MG; Start 09/26/16 at 18:00 Lactobacillus Acidoph/Bulgaricus (Floranex) 1 tab TID PO Last administered on 09:13; Admin Dose 1 TAB; Start 09/26/16 at 21:00 Atorvastatin Calcium (Lipitor) 20 mg QHS GTB Last administered on 10/05/16 21: 42; Admin Dose 20 MG; Start 09/28/16 at 21:00 Finasteride (Proscar) 5 mg DAILY GTB Last administered on 10/06/16 09:12; Admin Dose 5 MG; Start 09/29/16 at 09:00 Levothyroxine Sodium (Synthroid) 25 mcg DAILY@06 GTB Last administered on 05:15; Admin Dose 25 MCG; Start 09/29/16 at 06:00 Multivitamins Therapeutic (Theragran) 1 tab DAILY GTB Last administered on 09:12; Admin Dose 1 TAB; Start 09/29/16 at 09:00 Zinc Sulfate (Zinc Sulfate) 220 mg DAILY NGT Last administered on 10/06/16 09: 13; Admin Dose 220 MG; Start 09/29/16 at 09:00 Insulin Aspart (Novolog Insulin Pen) NOVOLOG *MILD* ALGORI... Q6 SC ; Start at 18:00 Ondansetron HCl (Zofran Inj) 4 mg Q6H PRN IV NAUSEA AND/OR VOMITING Last administered on 10/05/16 17:42; Admin Dose 4 MG; Start 09/29/16 at 07:30 Heparin Sodium (Porcine) (Heparin (5000 Units/0.5 ml)) 5,000 unit BID SC Last administered on 10/06/16 08:58; Admin Dose 5,000 UNIT; Start 09/29/16 at 09:00 Linezolid (Zyvox) 600 mg BID PO Last administered on 10/06/16 09:14; Admin Dose 600 MG; Start 09/30/16 at 11:30 Acetaminophen 650 mg 650 mg Q6H PRN GTB PAIN AND OR ELEVATED TEMP Last administered on 10/04/16 21:27; Admin Dose 650 MG; Start 10/02/16 at 08:00 Colistimethate Sodium 150 mg/ Sodium Chloride 100 ml @ 200 mls/hr Q24H IVPB Last administered on 10/05/16 10:29; Admin Dose 200 MLS/HR; Start 10/03/16 at 10 :00 Metronidazole 100 ml @ 100 mls/hr Q8 IVPB Last administered on 10/06/16 08:32 ; Admin Dose 100 MLS/HR; Start 10/02/16 at 14:00 Piperacillin Sod/ Tazobactam Sod (Zosyn 3.375gm/ 100 ml (Pmx)) 100 ml @ 200 mls /hr Q8 IVPB Last administered on 10/05/16 21:42; Admin Dose 200 MLS/HR; Start 10/04/16 at 12:00 Metoclopramide HCl (Reglan) 10 mg Q8 PO Last administered on 10/06/16 09:11; Admin Dose 10 MG; Start 10/05/16 at 22:00 Midodrine (Proamatine) 10 mg TID@09,13,17 PO Last administered on 10/06/16 09: 14; Admin Dose 10 MG; Start 10/06/16 at 01:00 Mupirocin 1 applic 1 applic BID TOP ; Start 10/06/16 at 21:00 Sodium Bicarbonate/ Dextrose (Na Bicarb/D5W) 1,100 ml @ 80 mls/hr [id number] IV ; Start 10/06/16 at 11:00 SCOTT RODRIGUES MD Oct 06, 2016 10:26
[2016-10-06] MEDS: SODIUM BICARBONATE (IV ADD) 100 MEQ in DEXTROSE 5% 1,000 ML IV SCH ×3 (11:00→17:48)
--- NOTE | 2016-10-06 12:59 | CONS ---
Date/Time of Note Date/Time of Note DATE: 10/06/16 TIME: 12:57 Assessment/Plan Assessment/Plan Chief Complaint/Hosp Course Impression 1. Severe sepsis with septic shock 2/2 Decub ulcers and/or UTI and/or PNA: WBC increasing and having fevers 2. Ileus causing nausea and vomiting. Ileus is shown on KUB from 10-05-16 3. Anemia secondary to GI bleed (Coffee ground drainage from G tube). 4. Ecoli bacteremia and UTI : 5. Multifocal pneumonia (E coli / A baumanii) 6. 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 Dysphagia: tube feed dependent on PEG 8. Acute renal failure 2/2 ATN from dehydration: improving 9. Severe multiple pressure ulcers infected with multiple organisms including MRSA 10. Chronic resp failure ventilator dependent Via tracheostomy PLAN: 1. hold tube feed for now. I will check tomorrow to see if we can restart tube feed. 2. continue reglan to see if ileus can be improved. 3. Agree with CT that is ordered to assess for ileus. We will follow along 4. patient may benefit from diverting colostomy due to his sores. 5. f/u stool for C diff 6. transfuse PRN hgb less than 8 7. consider EGD if family agrees 8. continue protonix bid dosing Problems: Consultation Date/Type/Reason Admit Date/Time Sep 24, 2016 at 03:19 Initial Consult Date 09/24/16 Type of Consultation: GI Referring Provider: ROULA DEL TORO 24 HR Interval Summary Subjective hx not possible: pt non-verbal, pt critical Exam/Review of Systems Vital Signs Vitals Vital Signs Date Time Temp Pulse Resp B/P Pulse Ox O2 Delivery O2 Flow Rate FiO2 10/06/16 11:15 102 21 99 30 10/06/16 11:00 86/49 Mechanical Ventilator 10/06/16 08:00 99.3 Intake and Output 10/05/16 10/05/16 10/06/16 15:00 23:00 07:00 Intake Total 915 ml 240 ml Output Total 1500 ml Balance -585 ml 240 ml Exam Constitutional: frail, non-verbal Psych: confusion Head: atraumatic, normocephalic Eyes: EOMI, nl conjunctiva, nl lids, nl sclera ENMT: mucosa pink and moist, nl external ears & nose, nl lips & teeth, nl nasal mucosa & septum Neck: non-tender, supple Respiratory: clear to auscultation, normal air movement Cardiovascular: nl pulses, regular rate and rhythm Gastrointestinal: bowel sounds (reduced), non-tender, other (G-tube c/d/i), soft Results Result Diagram: 10/06/16 0419 10/06/16 0419 Results 24 hrs Laboratory Tests Test 10/05/16 18:01 10/05/16 18:28 10/05/16 19:00 10/05/16 20:34 Blood Gas Specimen Source Blood arterial Arterial Blood Date Drawn 10/05/2016 6:26:37 PM Arterial Blood pH (Temp corrected) 7.425 Arterial Blood pCO2 (Temp correct) 25.2 L Arterial Blood pO2 (Temp corrected) 100.0 H Arterial Blood HCO3 16.2 L Arterial Blood Base Excess -6.9 L Arterial Blood Oxygen Saturation 97.1 Ki Test ACCEPTAB Arterial Blood Gas Puncture Site Right Radial Arterial Blood Carboxyhemoglobin 0.3 Arterial Blood Methemoglobin 0.5 Blood Gas A-a O2 Differential 84.3 H Oxyhemoglobin Percent 96.3 Total Hemoglobin 10.1 L Blood Gas Temperature 37.0 Blood Gas Respiration Rate 16.0 Blood Gas Actual Respiration Rate 21 Blood Gas Modality VENT - AC FiO2 30.0 Blood Gas Tidal Volume 500.0 Blood Gas High PEEP Setting 5.0 Blood Gas Notified Whom AC Blood Gas Notified Time 10/05/2016 6:37:56 PM Bedside Glucose 70 79 Lactic Acid Level 3.9 H Test 10/06/16 00:48 10/06/16 00:57 10/06/16 04:19 10/06/16 09:02 Bedside Glucose 73 98 Lactic Acid Level 4.8 *H 4.3 *H White Blood Count 30.5 H Red Blood Count 3.05 L Hemoglobin 7.5 L Hematocrit 26.3 L Mean Corpuscular Volume 86.2 Mean Corpuscular Hemoglobin 24.6 L Mean Corpuscular Hemoglobin Concent 28.5 L Red Cell Distribution Width 19.9 H Platelet Count 416 H Mean Platelet Volume 11.3 H Neutrophils % 90.0 H Band Neutrophils % 4.0 Lymphocytes % 4.0 L Monocytes % 2.0 Neutrophils # 27.5 H Lymphocytes # 1.2 Monocytes # 0.6 Sodium Level 140 Potassium Level 4.0 Chloride Level 115 H Carbon Dioxide Level 17 L Anion Gap 12 # Blood Urea Nitrogen 63 H Creatinine 2.33 H Glucose Level 68 L Calcium Level 8.0 L Magnesium Level 2.0 Test 10/06/16 12:00 Lactic Acid Level 4.4 *H Medications Medications Current Medications Acetaminophen (Tylenol Supp) 650 mg Q4H PRN [place] PAIN LEVEL 1-3 OR FEVER; Start 09/24/16 at 03:00 Eye Lubricant (Artificial Tears Oph) 1 drop TID BOTH EYES Last administered on 10/05/16 21:44; Admin Dose 1 DROP; Start 09/24/16 at 09:00 Sodium Hypochlorite (Dakin'S (1/4 Strength)) 1 applic BID IRR Last administered on 10/05/16 21:43; Admin Dose 1 APPLIC; Start 09/24/16 at 21:00 Pantoprazole (Protonix Iv) 40 mg BID@06,18 IV Last administered on 10/06/16 08: 31; Admin Dose 40 MG; Start 09/24/16 at 18:00 Collagenase (Santyl) 1 applic DAILY TOP Last administered on 10/05/16 09:00; Admin Dose 1 APPLIC; Start 09/24/16 at 20:30 Miscellaneous Information 1 ea NOTE XX ; Start 09/24/16 at 21:00 Glucose (Glutose) 15 gm Q15M PRN PO DECREASED GLUCOSE; Start 09/24/16 at 21:00 Glucose (Glutose) 22.5 gm Q15M PRN PO DECREASED GLUCOSE; Start 09/24/16 at 21: 00 Dextrose (D50w Syringe) 25 ml Q15M PRN IV DECREASED GLUCOSE; Start 09/24/16 at 21:00 Dextrose (D50w Syringe) 50 ml Q15M PRN IV DECREASED GLUCOSE; Start 09/24/16 at 21:00 Glucagon (Glucagen) 1 mg Q15M PRN IM DECREASED GLUCOSE; Start 09/24/16 at 21:00 Glucose 15 gm 15 gm Q15M PRN BUCCAL DECREASED GLUCOSE; Start 09/24/16 at 21:00 Acetaminophen (Ofirmev 1000mg/ 100ml Iv) 100 ml @ 400 mls/hr Q6H PRN IVPB FEVER Last administered on 09/29/16 20:27; Admin Dose 400 MLS/HR; Start at 22:00 Vancomycin HCl (Vancomycin Oral Syringe) 250 mg Q6 PO Last administered on 09:11; Admin Dose 250 MG; Start 09/26/16 at 18:00 Lactobacillus Acidoph/Bulgaricus (Floranex) 1 tab TID PO Last administered on 09:13; Admin Dose 1 TAB; Start 09/26/16 at 21:00 Atorvastatin Calcium (Lipitor) 20 mg QHS GTB Last administered on 10/05/16 21: 42; Admin Dose 20 MG; Start 09/28/16 at 21:00 Finasteride (Proscar) 5 mg DAILY GTB Last administered on 10/06/16 09:12; Admin Dose 5 MG; Start 09/29/16 at 09:00 Levothyroxine Sodium (Synthroid) 25 mcg DAILY@06 GTB Last administered on 05:15; Admin Dose 25 MCG; Start 09/29/16 at 06:00 Multivitamins Therapeutic (Theragran) 1 tab DAILY GTB Last administered on 09:12; Admin Dose 1 TAB; Start 09/29/16 at 09:00 Zinc Sulfate (Zinc Sulfate) 220 mg DAILY NGT Last administered on 10/06/16 09: 13; Admin Dose 220 MG; Start 09/29/16 at 09:00 Insulin Aspart (Novolog Insulin Pen) NOVOLOG *MILD* ALGORI... Q6 SC ; Start at 18:00 Ondansetron HCl (Zofran Inj) 4 mg Q6H PRN IV NAUSEA AND/OR VOMITING Last administered on 10/05/16 17:42; Admin Dose 4 MG; Start 09/29/16 at 07:30 Heparin Sodium (Porcine) (Heparin (5000 Units/0.5 ml)) 5,000 unit BID SC Last administered on 10/06/16 08:58; Admin Dose 5,000 UNIT; Start 09/29/16 at 09:00 Linezolid (Zyvox) 600 mg BID PO Last administered on 10/06/16 09:14; Admin Dose 600 MG; Start 09/30/16 at 11:30 Acetaminophen 650 mg 650 mg Q6H PRN GTB PAIN AND OR ELEVATED TEMP Last administered on 10/04/16 21:27; Admin Dose 650 MG; Start 10/02/16 at 08:00 Colistimethate Sodium 150 mg/ Sodium Chloride 100 ml @ 200 mls/hr Q24H IVPB Last administered on 10/05/16 10:29; Admin Dose 200 MLS/HR; Start 10/03/16 at 10 :00 Metronidazole 100 ml @ 100 mls/hr Q8 IVPB Last administered on 10/06/16 08:32 ; Admin Dose 100 MLS/HR; Start 10/02/16 at 14:00 Piperacillin Sod/ Tazobactam Sod (Zosyn 3.375gm/ 100 ml (Pmx)) 100 ml @ 200 mls /hr Q8 IVPB Last administered on 10/05/16 21:42; Admin Dose 200 MLS/HR; Start 10/04/16 at 12:00 Metoclopramide HCl (Reglan) 10 mg Q8 PO Last administered on 10/06/16 09:11; Admin Dose 10 MG; Start 10/05/16 at 22:00 Midodrine (Proamatine) 10 mg TID@09,13,17 PO Last administered on 10/06/16 09: 14; Admin Dose 10 MG; Start 10/06/16 at 01:00 Mupirocin 1 applic 1 applic BID TOP ; Start 10/06/16 at 21:00 Sodium Bicarbonate 100 meq/Dextrose 1,100 ml @ 80 mls/hr [id number] IV ; Start 10/06/16 at 11:00 Norepinephrine (Levophed) 250 ml @ 1.875 mls/ hr TITRATE IV ; Start 10/06/16 at 12:30 RUDY MORE MD Oct 06, 2016 12:59
[2016-10-06] MEDS: NORepinephrine 8MG/250 ML (PMX 250 ML IV SCH (13:25)
--- NOTE | 2016-10-06 13:41 | CONS ---
Date/Time of Note Date/Time of Note DATE: 10/06/16 TIME: 13:38 Assessment/Plan Assessment/Plan Additional Assessment/Plan Severe septic shock Preserved ejection fraction Moderate aortic stenosis Respiratory failure Coronary artery disease Anemia, worsening Acute kidney injury -Blood pressure worsening overnight with tachycardia. Transfer to ICU. Renal function has worsened. IV fluids as per our nephrology colleagues, blood pressure with SBP low with a 90 or map less than 60, restart IV pressor. Consider blood transfusion. Hold all nephrotoxic medications as well as antihypertensive meds. Consultation Date/Type/Reason Admit Date/Time Sep 24, 2016 at 03:19 Initial Consult Date 09/24/16 Type of Consultation: cv Referring Provider: ROULA DEL TORO 24 HR Interval Summary Free Text/Dictation Patient with worsening blood pressure overnight with hypotension and tachycardia transferred to ICU. Exam/Review of Systems Vital Signs Vitals Vital Signs Date Time Temp Pulse Resp B/P Pulse Ox O2 Delivery O2 Flow Rate FiO2 10/06/16 12:00 102 10/06/16 11:15 21 99 30 10/06/16 11:00 86/49 Mechanical Ventilator 10/06/16 08:00 99.3 Intake and Output 10/05/16 10/05/16 10/06/16 15:00 23:00 07:00 Intake Total 915 ml 240 ml Output Total 1500 ml 30 ml Balance -585 ml 210 ml Exam Awake, no apparent distress, not following commands Head: normocephalic Neck: other (Tracheostomy) Respiratory: other (Coarse breath sounds bilaterally, no wheezing) Cardiovascular: other (S1-S2 heard), regular rate and rhythm Gastrointestinal: bowel sounds, distended, other (No grimacing with palpation) , soft Extremities: edema, other (No cyanosis) Results Result Diagram: 10/06/16 0419 10/06/16 0419 Results 24 hrs Laboratory Tests Test 10/05/16 18:01 10/05/16 18:28 10/05/16 19:00 10/05/16 20:34 Blood Gas Specimen Source Blood arterial Arterial Blood Date Drawn 10/05/2016 6:26:37 PM Arterial Blood pH (Temp corrected) 7.425 Arterial Blood pCO2 (Temp correct) 25.2 L Arterial Blood pO2 (Temp corrected) 100.0 H Arterial Blood HCO3 16.2 L Arterial Blood Base Excess -6.9 L Arterial Blood Oxygen Saturation 97.1 Ki Test ACCEPTAB Arterial Blood Gas Puncture Site Right Radial Arterial Blood Carboxyhemoglobin 0.3 Arterial Blood Methemoglobin 0.5 Blood Gas A-a O2 Differential 84.3 H Oxyhemoglobin Percent 96.3 Total Hemoglobin 10.1 L Blood Gas Temperature 37.0 Blood Gas Respiration Rate 16.0 Blood Gas Actual Respiration Rate 21 Blood Gas Modality VENT - AC FiO2 30.0 Blood Gas Tidal Volume 500.0 Blood Gas High PEEP Setting 5.0 Blood Gas Notified Whom AC Blood Gas Notified Time 10/05/2016 6:37:56 PM Bedside Glucose 70 79 Lactic Acid Level 3.9 H Test 10/06/16 00:48 10/06/16 00:57 10/06/16 04:19 10/06/16 09:02 Bedside Glucose 73 98 Lactic Acid Level 4.8 *H 4.3 *H White Blood Count 30.5 H Red Blood Count 3.05 L Hemoglobin 7.5 L Hematocrit 26.3 L Mean Corpuscular Volume 86.2 Mean Corpuscular Hemoglobin 24.6 L Mean Corpuscular Hemoglobin Concent 28.5 L Red Cell Distribution Width 19.9 H Platelet Count 416 H Mean Platelet Volume 11.3 H Neutrophils % 90.0 H Band Neutrophils % 4.0 Lymphocytes % 4.0 L Monocytes % 2.0 Neutrophils # 27.5 H Lymphocytes # 1.2 Monocytes # 0.6 Sodium Level 140 Potassium Level 4.0 Chloride Level 115 H Carbon Dioxide Level 17 L Anion Gap 12 # Blood Urea Nitrogen 63 H Creatinine 2.33 H Glucose Level 68 L Calcium Level 8.0 L Magnesium Level 2.0 Test 10/06/16 12:00 10/06/16 13:00 Lactic Acid Level 4.4 *H Bedside Glucose 89 Medications Medications Current Medications Acetaminophen (Tylenol Supp) 650 mg Q4H PRN [place] PAIN LEVEL 1-3 OR FEVER; Start 09/24/16 at 03:00 Eye Lubricant (Artificial Tears Oph) 1 drop TID BOTH EYES Last administered on 10/06/16 13:21; Admin Dose 1 DROP; Start 09/24/16 at 09:00 Sodium Hypochlorite (Dakin'S (1/4 Strength)) 1 applic BID IRR Last administered on 10/05/16 21:43; Admin Dose 1 APPLIC; Start 09/24/16 at 21:00 Pantoprazole (Protonix Iv) 40 mg BID@06,18 IV Last administered on 10/06/16 08: 31; Admin Dose 40 MG; Start 09/24/16 at 18:00 Collagenase (Santyl) 1 applic DAILY TOP Last administered on 10/05/16 09:00; Admin Dose 1 APPLIC; Start 09/24/16 at 20:30 Miscellaneous Information 1 ea NOTE XX ; Start 09/24/16 at 21:00 Glucose (Glutose) 15 gm Q15M PRN PO DECREASED GLUCOSE; Start 09/24/16 at 21:00 Glucose (Glutose) 22.5 gm Q15M PRN PO DECREASED GLUCOSE; Start 09/24/16 at 21: 00 Dextrose (D50w Syringe) 25 ml Q15M PRN IV DECREASED GLUCOSE; Start 09/24/16 at 21:00 Dextrose (D50w Syringe) 50 ml Q15M PRN IV DECREASED GLUCOSE; Start 09/24/16 at 21:00 Glucagon (Glucagen) 1 mg Q15M PRN IM DECREASED GLUCOSE; Start 09/24/16 at 21:00 Glucose 15 gm 15 gm Q15M PRN BUCCAL DECREASED GLUCOSE; Start 09/24/16 at 21:00 Acetaminophen (Ofirmev 1000mg/ 100ml Iv) 100 ml @ 400 mls/hr Q6H PRN IVPB FEVER Last administered on 09/29/16 20:27; Admin Dose 400 MLS/HR; Start at 22:00 Vancomycin HCl (Vancomycin Oral Syringe) 250 mg Q6 PO Last administered on 12:00; Admin Dose 250 MG; Start 09/26/16 at 18:00 Lactobacillus Acidoph/Bulgaricus (Floranex) 1 tab TID PO Last administered on 13:22; Admin Dose 1 TAB; Start 09/26/16 at 21:00 Atorvastatin Calcium (Lipitor) 20 mg QHS GTB Last administered on 10/05/16 21: 42; Admin Dose 20 MG; Start 09/28/16 at 21:00 Finasteride (Proscar) 5 mg DAILY GTB Last administered on 10/06/16 09:12; Admin Dose 5 MG; Start 09/29/16 at 09:00 Levothyroxine Sodium (Synthroid) 25 mcg DAILY@06 GTB Last administered on 05:15; Admin Dose 25 MCG; Start 09/29/16 at 06:00 Multivitamins Therapeutic (Theragran) 1 tab DAILY GTB Last administered on 09:12; Admin Dose 1 TAB; Start 09/29/16 at 09:00 Zinc Sulfate (Zinc Sulfate) 220 mg DAILY NGT Last administered on 10/06/16 09: 13; Admin Dose 220 MG; Start 09/29/16 at 09:00 Insulin Aspart (Novolog Insulin Pen) NOVOLOG *MILD* ALGORI... Q6 SC ; Start at 18:00 Ondansetron HCl (Zofran Inj) 4 mg Q6H PRN IV NAUSEA AND/OR VOMITING Last administered on 10/05/16 17:42; Admin Dose 4 MG; Start 09/29/16 at 07:30 Heparin Sodium (Porcine) (Heparin (5000 Units/0.5 ml)) 5,000 unit BID SC Last administered on 10/06/16 08:58; Admin Dose 5,000 UNIT; Start 09/29/16 at 09:00 Linezolid (Zyvox) 600 mg BID PO Last administered on 10/06/16 09:14; Admin Dose 600 MG; Start 09/30/16 at 11:30 Acetaminophen 650 mg 650 mg Q6H PRN GTB PAIN AND OR ELEVATED TEMP Last administered on 10/04/16 21:27; Admin Dose 650 MG; Start 10/02/16 at 08:00 Metronidazole (Flagyl 500 Mg (Pmx)) 100 ml @ 100 mls/hr Q8 IVPB Last administered on 10/06/16 08:32; Admin Dose 100 MLS/HR; Start 10/02/16 at 14:00 Metoclopramide HCl (Reglan) 10 mg Q8 PO Last administered on 10/06/16 09:11; Admin Dose 10 MG; Start 10/05/16 at 22:00 Midodrine (Proamatine) 10 mg TID@,,17 PO Last administered on 10/06/16 13: 23; Admin Dose 10 MG; Start 10/06/16 at 01:00 Mupirocin 1 applic 1 applic BID TOP ; Start 10/06/16 at 21:00 Sodium Bicarbonate 100 meq/Dextrose 1,100 ml @ 80 mls/hr [id number] IV ; Start 10/06/16 at 11:00 Norepinephrine 250 ml @ 1.875 mls/ hr TITRATE IV Last administered on t 13:25; Admin Dose 9.373 MLS/HR; Start 10/06/16 at 12:30 Meropenem 100 ml @ 200 mls/hr Q12 IVPB ; Start 10/06/16 at 14:00 Fluconazole/ Sodium Chloride (Diflucan 100 Mg/ NS (Pmx)) 50 ml @ 50 mls/hr Q24H IVPB ; Start 10/06/16 at 13:30 Ryder Wild DO Oct 06, 2016 13:41
[2016-10-06] MEDS: FLUCONAZOLE 100 MG/NS (PMX) 50 ML IVPB SCH (14:27)
--- NOTE | 2016-10-06 14:38 | CONS ---
Date/Time of Note Date/Time of Note DATE: 10/06/16 TIME: 14:31 Consult Date/Type/Reason Admit Date/Time Sep 24, 2016 at 03:19 Initial Consult Date 09/24/16 Type of Consultation: Pulm/CCM Ordering Provider: ROULA DEL TORO Transferred to ICU for hypotension. Now on levophed gtt. Objective Vital Signs Date Time Temp Pulse Resp B/P Pulse Ox O2 Delivery O2 Flow Rate FiO2 10/06/16 12:00 102 10/06/16 11:15 21 99 30 10/06/16 11:00 86/49 Mechanical Ventilator 10/06/16 08:00 99.3 Intake and Output 10/05/16 10/05/16 10/06/16 15:00 23:00 07:00 Intake Total 915 ml 240 ml Output Total 1500 ml 30 ml Balance -585 ml 210 ml Exam HEENT: Pupils equal, round, and reactive to light. Tracheostomy site clean and intact. CARDIAC: S1, S2, 2 systolic ejection murmur CHEST: Coarse BS b/l ABDOMEN: Mildly distended. Bowel sounds present EXTREMITIES: No cyanosis, clubbing edema +2 Results/Medications Result Diagram: 10/06/16 0419 10/06/16 0419 Results 24 hrs Laboratory Tests Test 10/05/16 18:01 10/05/16 18:28 10/05/16 19:00 10/05/16 20:34 Blood Gas Specimen Source Blood arterial Arterial Blood Date Drawn 10/05/2016 6:26:37 PM Arterial Blood pH (Temp corrected) 7.425 Arterial Blood pCO2 (Temp correct) 25.2 L Arterial Blood pO2 (Temp corrected) 100.0 H Arterial Blood HCO3 16.2 L Arterial Blood Base Excess -6.9 L Arterial Blood Oxygen Saturation 97.1 Ki Test ACCEPTAB Arterial Blood Gas Puncture Site Right Radial Arterial Blood Carboxyhemoglobin 0.3 Arterial Blood Methemoglobin 0.5 Blood Gas A-a O2 Differential 84.3 H Oxyhemoglobin Percent 96.3 Total Hemoglobin 10.1 L Blood Gas Temperature 37.0 Blood Gas Respiration Rate 16.0 Blood Gas Actual Respiration Rate 21 Blood Gas Modality VENT - AC FiO2 30.0 Blood Gas Tidal Volume 500.0 Blood Gas High PEEP Setting 5.0 Blood Gas Notified Whom AC Blood Gas Notified Time 10/05/2016 6:37:56 PM Bedside Glucose 70 79 Lactic Acid Level 3.9 H Test 10/06/16 00:48 10/06/16 00:57 10/06/16 04:19 10/06/16 09:02 Bedside Glucose 73 98 Lactic Acid Level 4.8 *H 4.3 *H White Blood Count 30.5 H Red Blood Count 3.05 L Hemoglobin 7.5 L Hematocrit 26.3 L Mean Corpuscular Volume 86.2 Mean Corpuscular Hemoglobin 24.6 L Mean Corpuscular Hemoglobin Concent 28.5 L Red Cell Distribution Width 19.9 H Platelet Count 416 H Mean Platelet Volume 11.3 H Neutrophils % 90.0 H Band Neutrophils % 4.0 Lymphocytes % 4.0 L Monocytes % 2.0 Neutrophils # 27.5 H Lymphocytes # 1.2 Monocytes # 0.6 Sodium Level 140 Potassium Level 4.0 Chloride Level 115 H Carbon Dioxide Level 17 L Anion Gap 12 # Blood Urea Nitrogen 63 H Creatinine 2.33 H Glucose Level 68 L Calcium Level 8.0 L Magnesium Level 2.0 Test 10/06/16 12:00 10/06/16 13:00 Lactic Acid Level 4.4 *H Bedside Glucose 89 Medications Current Medications Acetaminophen (Tylenol Supp) 650 mg Q4H PRN [place] PAIN LEVEL 1-3 OR FEVER; Start 09/24/16 at 03:00 Eye Lubricant (Artificial Tears Oph) 1 drop TID BOTH EYES Last administered on 10/06/16 13:21; Admin Dose 1 DROP; Start 09/24/16 at 09:00 Sodium Hypochlorite (Dakin'S (1/4 Strength)) 1 applic BID IRR Last administered on 10/05/16 21:43; Admin Dose 1 APPLIC; Start 09/24/16 at 21:00 Pantoprazole (Protonix Iv) 40 mg BID@06,18 IV Last administered on 10/06/16 08: 31; Admin Dose 40 MG; Start 09/24/16 at 18:00 Collagenase (Santyl) 1 applic DAILY TOP Last administered on 10/05/16 09:00; Admin Dose 1 APPLIC; Start 09/24/16 at 20:30 Miscellaneous Information 1 ea NOTE XX ; Start 09/24/16 at 21:00 Glucose (Glutose) 15 gm Q15M PRN PO DECREASED GLUCOSE; Start 09/24/16 at 21:00 Glucose (Glutose) 22.5 gm Q15M PRN PO DECREASED GLUCOSE; Start 09/24/16 at 21: 00 Dextrose (D50w Syringe) 25 ml Q15M PRN IV DECREASED GLUCOSE; Start 09/24/16 at 21:00 Dextrose (D50w Syringe) 50 ml Q15M PRN IV DECREASED GLUCOSE; Start 09/24/16 at 21:00 Glucagon (Glucagen) 1 mg Q15M PRN IM DECREASED GLUCOSE; Start 09/24/16 at 21:00 Glucose 15 gm 15 gm Q15M PRN BUCCAL DECREASED GLUCOSE; Start 09/24/16 at 21:00 Acetaminophen (Ofirmev 1000mg/ 100ml Iv) 100 ml @ 400 mls/hr Q6H PRN IVPB FEVER Last administered on 09/29/16 20:27; Admin Dose 400 MLS/HR; Start at 22:00 Vancomycin HCl (Vancomycin Oral Syringe) 250 mg Q6 PO Last administered on 12:00; Admin Dose 250 MG; Start 09/26/16 at 18:00 Lactobacillus Acidoph/Bulgaricus (Floranex) 1 tab TID PO Last administered on 13:22; Admin Dose 1 TAB; Start 09/26/16 at 21:00 Atorvastatin Calcium (Lipitor) 20 mg QHS GTB Last administered on 10/05/16 21: 42; Admin Dose 20 MG; Start 09/28/16 at 21:00 Finasteride (Proscar) 5 mg DAILY GTB Last administered on 10/06/16 09:12; Admin Dose 5 MG; Start 09/29/16 at 09:00 Levothyroxine Sodium (Synthroid) 25 mcg DAILY@06 GTB Last administered on 05:15; Admin Dose 25 MCG; Start 09/29/16 at 06:00 Multivitamins Therapeutic (Theragran) 1 tab DAILY GTB Last administered on 09:12; Admin Dose 1 TAB; Start 09/29/16 at 09:00 Zinc Sulfate (Zinc Sulfate) 220 mg DAILY NGT Last administered on 10/06/16 09: 13; Admin Dose 220 MG; Start 09/29/16 at 09:00 Insulin Aspart (Novolog Insulin Pen) NOVOLOG *MILD* ALGORI... Q6 SC ; Start at 18:00 Ondansetron HCl (Zofran Inj) 4 mg Q6H PRN IV NAUSEA AND/OR VOMITING Last administered on 10/05/16 17:42; Admin Dose 4 MG; Start 09/29/16 at 07:30 Heparin Sodium (Porcine) (Heparin (5000 Units/0.5 ml)) 5,000 unit BID SC Last administered on 10/06/16 08:58; Admin Dose 5,000 UNIT; Start 09/29/16 at 09:00 Linezolid (Zyvox) 600 mg BID PO Last administered on 10/06/16 09:14; Admin Dose 600 MG; Start 09/30/16 at 11:30 Acetaminophen 650 mg 650 mg Q6H PRN GTB PAIN AND OR ELEVATED TEMP Last administered on 10/04/16 21:27; Admin Dose 650 MG; Start 10/02/16 at 08:00 Metronidazole (Flagyl 500 Mg (Pmx)) 100 ml @ 100 mls/hr Q8 IVPB Last administered on 10/06/16 08:32; Admin Dose 100 MLS/HR; Start 10/02/16 at 14:00 Metoclopramide HCl (Reglan) 10 mg Q8 PO Last administered on 10/06/16 14:27; Admin Dose 10 MG; Start 10/05/16 at 22:00 Midodrine (Proamatine) 10 mg TID@09,13,17 PO Last administered on 10/06/16 13: 23; Admin Dose 10 MG; Start 10/06/16 at 01:00 Mupirocin 1 applic 1 applic BID TOP ; Start 10/06/16 at 21:00 Sodium Bicarbonate 100 meq/Dextrose 1,100 ml @ 80 mls/hr [id number] IV ; Start 10/06/16 at 11:00 Norepinephrine 250 ml @ 1.875 mls/ hr TITRATE IV Last administered on 13:25; Admin Dose 9.373 MLS/HR; Start 10/06/16 at 12:30 Meropenem 100 ml @ 200 mls/hr Q12 IVPB ; Start 10/06/16 at 14:00 Fluconazole/ Sodium Chloride (Diflucan 100 Mg/ NS (Pmx)) 50 ml @ 50 mls/hr Q24H IVPB Last administered on 10/06/16t 14:27; Admin Dose 50 MLS/HR; Start 10/06/16 at 13:30 Assessment/Plan Additional Assessment/Plan IMP: 1. Septic shock likely secondary to pneumonia vs. Line 2. R/O line sepsis 3. Vent dependent respiratory failure 4. Dysphagia with G-tube 5. Hypernatremia 6. History of renal insufficiency RECS: 1. Continue mechanical ventilation 2. Antibiotics per infectious diseases 3. Continue levophed to maintain MAP > 65 mm hg 4. Repeat BC x2 5. Remove Left subclavian cath and cx cath tip 35 min cc time GODFREY GILLILAND MD Oct 06, 2016 14:38
--- NOTE | 2016-10-06 15:11 | PN ---
DATE: 10/06/2016 SUBJECTIVE: The patient was transferred to ICU secondary to high fevers and low blood pressure. He is lethargic but opens eyes to commands. He is off pressors, lying comfortably in bed. VITAL SIGNS: Temperature 99.3, pulse 102, respirations 26, blood pressure 86/49 , saturation 99% on 30 FiO2. LABORATORY DATA: WBC 30.5, H and H 7.5 and 26.3, platelets 416, neutrophils 90 , bands 4, lymphs 4, monos 2. Lactic acid 4.4, BUN 63, creatinine 2.33. MICROBIOLOGY: Urine cultures repeated yesterday pending. Wound culture grew multi-drug resistant organisms. Urine culture on admission grew E. coli. Blood culture grew E. coli and Bacteroides fragilis. INDWELLINGS: Trach, PEG, Cee, left subclavian triple-lumen catheter. ANTIMICROBIALS: The patient is on: 1. Topical Bactroban to nares. 2. Zosyn. 3. Colistin. 4. Flagyl. 5. Zyvox. PHYSICAL EXAMINATION: GENERAL: This is a chronically ill-appearing, elderly man who is lying comfortably in bed. HEENT: Head atraumatic, normocephalic. Sclerae anicteric. Buccal mucosa dry. NECK: Supple. Tracheostomy present. CHEST: Rise symmetrical. Breath sounds diminished to bases. HEART: S1, S2. ABDOMEN: Distended with tympany on percussion. The patient is guarding with palpation. EXTREMITIES: With trace edema. The patient has multiple wounds. ASSESSMENT: 1. Severe sepsis with shock and multisystem organ failure. 2. Polymicrobial bacteremia. 3. Urinary tract infection. 4. Multiple chronic wounds with cultures growing multi-drug resistant organisms. 5. Abdominal distention with evidence of ileus per KUB yesterday. 6. Lactic acidosis. 7. Diarrhea with stool for Clostridium difficile being negative. 8. History of severe pseudomembranous colitis. 9. ARF PLAN: The patient is doing poorly. We are going to change Zosyn to meropenem, add empiric antifungal coverage, dc Colistin given worsening kidney function. Await for CT of the abdomen and pelvis that was ordered yesterday. Await for repeat blood cultures and follow recommendations of consultants. Dictated By: CHRISTOPHER MCDONOUGH NP for YAQUELIN SMYTH/NTS Conf#: [id number] DID#: [id number] CC: YAQUELIN ESTRELLA MD; FELIX BLAKE MD;*[facility]* MTDD
[2016-10-06] MEDS: COLLAGENASE 30 GM TUBE TOP SCH (16:00)
[2016-10-06] MEDS: SODIUM HYPOCHLORITE 0.125% 473 ML BTL IRR SCH ×2 (16:00→21:09)
[2016-10-06 16:44] LABS: POTASSIUM 3.9 mmol/L (3.5-5.1)
[2016-10-06 16:47] LABS: CALCIUM 8.1 mg/dl (8.4-10.2); CREATININE 2.89 mg/dl (0.61-1.24)
[2016-10-06] MEDS: MEROPENEM 500 MG/100 ML (PMX) 100 ML IVPB SCH ×2 (17:00→22:30)
--- NOTE | 2016-10-06 17:14 | PN ---
Date/Time of Note Date/Time of Note DATE: 10/06/16 TIME: 17:11 Assessment/Plan VTE Prophylaxis VTE Prophylaxis Intervention: SCD's Assessment/Plan Chief Complaint/Hosp Course 1. Septic shock 2/2 Decub ulcers and/or UTI and/or PNA: WBC increasing and having fevers and had to be transferred to the ICU and started on pressors 2. Severe hypernatremia 2/2 dehydration: improving 3. Acute renal failure 2/2 ATN from dehydration: improving 4. Ecoli bacteremia and UTI : 5. Multifocal pneumonia (E coli / A baumanii) 6. 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 Hypochromic microcytic Iron deficiency anemia likely 2/2 chronic Bleed 8. Hypokalemia: resolved 9. Probable GI bleed (Coffee ground drainage from G tube) 10. Severe multiple pressure ulcers infected with multiple organisms including MRSA 11. Hx of severe C-diff/ pseudomembranous colitis 12. Hypothyroidism with good control: Levothyroxine 13. Chronic Dysphagia 2/2 encephalopathy 14. Chronic resp failure ventilator dependent Via tracheostomy PLAN: * Abx changed to Colistin and Zyvox, Flagyl also added, cont Vanco PO * Monitor fever curve/ f/u repeat blood cultures / Change snider / if fever persists, d/w surgery re: possible debridement * Complete 5 days of Iv iron supplementation and the switch to oral * Pt still having fevers and WBC increasing, repeat C. DIff is negative, F/U on repeat Cx's * IVF managed per Nephro and patient has been restarted on tube feeds till family gives consent for EGD * With degree of sores, Patient may require more aggressive intervention (? diverting colostomy) however will defer to surgery. Patient however is an extremely poor candidate and with comorbidities and baseline encephalopathy is more appropriate for hospice care instead / Palliative care consulted. PROPHYLAXIS: Start low dose heparin and monitor for bleeding / SCDS / Protonix Problems: Subjective 24 Hr Interval Summary Subjective hx not possible: pt non-verbal Exam/Review of Systems Vital Signs Vitals Vital Signs Date Time Temp Pulse Resp B/P Pulse Ox O2 Delivery O2 Flow Rate FiO2 10/06/16 14:25 106 26 98 30 10/06/16 11:00 86/49 Mechanical Ventilator 10/06/16 08:00 99.3 Intake and Output 4/1/17 4/1/17 4/2/17 15:00 23:00 07:00 Intake Total 915 ml 240 ml Output Total 1500 ml 30 ml Balance -585 ml 210 ml Exam Constitutional: non-verbal Respiratory: clear to auscultation Cardiovascular: regular rate and rhythm Gastrointestinal: soft, No distended Musculoskeletal: nl extremities to inspection Results Result Diagram: 10/06/16 0419 10/06/16 1600 Results 24 hrs Laboratory Tests Test 10/05/16 18:01 10/05/16 18:28 10/05/16 19:00 10/05/16 20:34 Blood Gas Specimen Source Blood arterial Arterial Blood Date Drawn 10/05/2016 6:26:37 PM Arterial Blood pH (Temp corrected) 7.425 Arterial Blood pCO2 (Temp correct) 25.2 L Arterial Blood pO2 (Temp corrected) 100.0 H Arterial Blood HCO3 16.2 L Arterial Blood Base Excess -6.9 L Arterial Blood Oxygen Saturation 97.1 Ki Test ACCEPTAB Arterial Blood Gas Puncture Site Right Radial Arterial Blood Carboxyhemoglobin 0.3 Arterial Blood Methemoglobin 0.5 Blood Gas A-a O2 Differential 84.3 H Oxyhemoglobin Percent 96.3 Total Hemoglobin 10.1 L Blood Gas Temperature 37.0 Blood Gas Respiration Rate 16.0 Blood Gas Actual Respiration Rate 21 Blood Gas Modality VENT - AC FiO2 30.0 Blood Gas Tidal Volume 500.0 Blood Gas High PEEP Setting 5.0 Blood Gas Notified Whom AC Blood Gas Notified Time 10/05/2016 6:37:56 PM Bedside Glucose 70 79 Lactic Acid Level 3.9 H Test 10/06/16 00:48 10/06/16 00:57 10/06/16 04:19 10/06/16 09:02 Bedside Glucose 73 98 Lactic Acid Level 4.8 *H 4.3 *H White Blood Count 30.5 H Red Blood Count 3.05 L Hemoglobin 7.5 L Hematocrit 26.3 L Mean Corpuscular Volume 86.2 Mean Corpuscular Hemoglobin 24.6 L Mean Corpuscular Hemoglobin Concent 28.5 L Red Cell Distribution Width 19.9 H Platelet Count 416 H Mean Platelet Volume 11.3 H Neutrophils % 90.0 H Band Neutrophils % 4.0 Lymphocytes % 4.0 L Monocytes % 2.0 Neutrophils # 27.5 H Lymphocytes # 1.2 Monocytes # 0.6 Sodium Level 140 Potassium Level 4.0 Chloride Level 115 H Carbon Dioxide Level 17 L Anion Gap 12 # Blood Urea Nitrogen 63 H Creatinine 2.33 H Glucose Level 68 L Calcium Level 8.0 L Magnesium Level 2.0 Test 10/06/16 12:00 10/06/16 13:00 10/06/16 16:00 Lactic Acid Level 4.4 *H Bedside Glucose 89 Sodium Level 141 Potassium Level 3.9 Chloride Level 109 Carbon Dioxide Level 16 L Anion Gap 20 #H Blood Urea Nitrogen 65 H Creatinine 2.89 H Glucose Level 74 Calcium Level 8.1 L Medications Medications Current Medications Acetaminophen (Tylenol Supp) 650 mg Q4H PRN [place] PAIN LEVEL 1-3 OR FEVER; Start 09/24/16 at 03:00 Eye Lubricant (Artificial Tears Oph) 1 drop TID BOTH EYES Last administered on 10/06/16 13:21; Admin Dose 1 DROP; Start 09/24/16 at 09:00 Sodium Hypochlorite (Dakin'S (1/4 Strength)) 1 applic BID IRR Last administered on 10/06/16 16:00; Admin Dose 1 APPLIC; Start 09/24/16 at 21:00 Pantoprazole (Protonix Iv) 40 mg BID@06,18 IV Last administered on 10/06/16 08: 31; Admin Dose 40 MG; Start 09/24/16 at 18:00 Collagenase (Santyl) 1 applic DAILY TOP Last administered on 10/06/16 16:00; Admin Dose 1 APPLIC; Start 09/24/16 at 20:30 Miscellaneous Information 1 ea NOTE XX ; Start 09/24/16 at 21:00 Glucose (Glutose) 15 gm Q15M PRN PO DECREASED GLUCOSE; Start 09/24/16 at 21:00 Glucose (Glutose) 22.5 gm Q15M PRN PO DECREASED GLUCOSE; Start 09/24/16 at 21: 00 Dextrose (D50w Syringe) 25 ml Q15M PRN IV DECREASED GLUCOSE; Start 09/24/16 at 21:00 Dextrose (D50w Syringe) 50 ml Q15M PRN IV DECREASED GLUCOSE; Start 09/24/16 at 21:00 Glucagon (Glucagen) 1 mg Q15M PRN IM DECREASED GLUCOSE; Start 09/24/16 at 21:00 Glucose 15 gm 15 gm Q15M PRN BUCCAL DECREASED GLUCOSE; Start 09/24/16 at 21:00 Acetaminophen (Ofirmev 1000mg/ 100ml Iv) 100 ml @ 400 mls/hr Q6H PRN IVPB FEVER Last administered on 09/29/16 20:27; Admin Dose 400 MLS/HR; Start at 22:00 Vancomycin HCl (Vancomycin Oral Syringe) 250 mg Q6 PO Last administered on 12:00; Admin Dose 250 MG; Start 09/26/16 at 18:00 Lactobacillus Acidoph/Bulgaricus (Floranex) 1 tab TID PO Last administered on 13:22; Admin Dose 1 TAB; Start 09/26/16 at 21:00 Atorvastatin Calcium (Lipitor) 20 mg QHS GTB Last administered on 10/05/16 21: 42; Admin Dose 20 MG; Start 09/28/16 at 21:00 Finasteride (Proscar) 5 mg DAILY GTB Last administered on 10/06/16 09:12; Admin Dose 5 MG; Start 09/29/16 at 09:00 Levothyroxine Sodium (Synthroid) 25 mcg DAILY@06 GTB Last administered on 05:15; Admin Dose 25 MCG; Start 09/29/16 at 06:00 Multivitamins Therapeutic (Theragran) 1 tab DAILY GTB Last administered on 09:12; Admin Dose 1 TAB; Start 09/29/16 at 09:00 Zinc Sulfate (Zinc Sulfate) 220 mg DAILY NGT Last administered on 10/06/16 09: 13; Admin Dose 220 MG; Start 09/29/16 at 09:00 Insulin Aspart (Novolog Insulin Pen) NOVOLOG *MILD* ALGORI... Q6 SC ; Start at 18:00 Ondansetron HCl (Zofran Inj) 4 mg Q6H PRN IV NAUSEA AND/OR VOMITING Last administered on 10/05/16 17:42; Admin Dose 4 MG; Start 09/29/16 at 07:30 Heparin Sodium (Porcine) (Heparin (5000 Units/0.5 ml)) 5,000 unit BID SC Last administered on 10/06/16 08:58; Admin Dose 5,000 UNIT; Start 09/29/16 at 09:00 Linezolid (Zyvox) 600 mg BID PO Last administered on 10/06/16 09:14; Admin Dose 600 MG; Start 09/30/16 at 11:30 Acetaminophen 650 mg 650 mg Q6H PRN GTB PAIN AND OR ELEVATED TEMP Last administered on 10/04/16 21:27; Admin Dose 650 MG; Start 10/02/16 at 08:00 Metronidazole (Flagyl 500 Mg (Pmx)) 100 ml @ 100 mls/hr Q8 IVPB Last administered on 10/06/16 16:00; Admin Dose 100 MLS/HR; Start 10/02/16 at 14:00 Midodrine (Proamatine) 10 mg TID@,,17 PO Last administered on 10/06/16 13: 23; Admin Dose 10 MG; Start 10/06/16 at 01:00 Mupirocin 1 applic 1 applic BID TOP ; Start 10/06/16 at 21:00 Sodium Bicarbonate 100 meq/Dextrose 1,100 ml @ 80 mls/hr [id number] IV ; Start 10/06/16 at 11:00 Norepinephrine 250 ml @ 1.875 mls/ hr TITRATE IV Last administered on 13:25; Admin Dose 9.373 MLS/HR; Start 10/06/16 at 12:30; Stop 10/06/16 at 23: 00 Meropenem 100 ml @ 200 mls/hr Q12 IVPB ; Start 10/06/16 at 14:00 Fluconazole/ Sodium Chloride 50 ml @ 50 mls/hr Q24H IVPB Last administered on 14:27; Admin Dose 50 MLS/HR; Start 10/06/16 at 13:30 Norepinephrine/ Dextrose (Levophed/D5W) 500 ml @ 1.87 mls/hr TITRATE IV ; Start 10/06/16 at 16:30 Metoclopramide HCl (Reglan) 5 mg Q8 PO ; Start 10/06/16 at 22:00 KEVYN GARNETT Oct 06, 2016 17:14
[2016-10-06] MEDS ORDERED: SOD CHLORIDE 0.9% 250 ML IV ONE (21:00)
[2016-10-06] MEDS: ATORVASTATIN 20 MG TAB GTB SCH (21:00)
[2016-10-06] MEDS: ACETAMINOPHEN 1000MG/100ML IV 100 ML IVPB PRN (21:13)
[2016-10-06] MEDS: LINEZOLID 600 MG/D5W (PMX) 300 ML IVPB SCH (21:19)
[2016-10-06] MEDS: MUPIROCIN 2% 22 GM OINT TOP SCH (21:24)
[2016-10-06] MEDS ORDERED: METOCLOPRAMIDE 10 MG INJ IV SCH (22:00)
[2016-10-06] MEDS ORDERED: METOCLOPRAMIDE 5 MG TAB PO SCH (22:00)
[2016-10-06] MEDS: METOCLOPRAMIDE 10 MG INJ IV SCH (22:30)
[2016-10-06] MEDS ORDERED: SOD CHLORIDE 0.9% 1,000 ML IV ONE (23:00)
[2016-10-07] VITALS (104 sets, daily range): BP systolic 86–133; BP diastolic 36–72; PULSE 85–116; RESP 14–38
[2016-10-07] MEDS: IPRATROPIUM (HFA) 12.9 GM INHALER INH SCH ×4 (01:14→19:55)
[2016-10-07] MEDS: ALBUTEROL HFA 8 GM INHALER INH SCH ×4 (01:15→19:56)
--- NOTE | 2016-10-07 01:48 | RADRPT ---
PROCEDURE: XR acute abdominal series. CLINICAL INDICATION: Ileus, now for assessment. TECHNIQUE: Frontal views of the abdomen. COMPARISON: 10/05/2016. FINDINGS: Increased colonic and small bowel ileus. Small bowel ileus is no greater in the left lower quadrant . Cardiomegaly. Bilateral pleural effusions, left greater than right. Left lung base atelectasis gideon home airspace disease is likely present. IMPRESSION: Increased ileus, and recommend close radiographic follow up. RPTAT: UU Physician Todd Date Time Electronically viewed and signed by Luli Alvarez Physician on 10/07/2016 01:48 RS/
[2016-10-07 05:18] LABS: Allen Test ACCEPTAB; Arterial Base Excess -9.1 mmol/L (-3.0-3); Arterial COHb 0.3 % (0.0-3.0); Arterial Fraction of Oxyhgb 97.3 % (93.0-99.0); Arterial HCO3 14.4 mmol/L (22.0-26.0); Arterial MetHb 0.5 % (0.0-1.5); Arterial Total Hemglobin 9.4 g/dl (12.0-18.0); MODE VENT - AC
[2016-10-07] MEDS: VANCOMYCIN HCL 250 MG/5ML POSYG PO SCH ×3 (05:26→11:46)
[2016-10-07] MEDS: SODIUM BICARBONATE (IV ADD) 100 MEQ in DEXTROSE 5% 1,000 ML IV SCH ×3 (05:33→21:37)
[2016-10-07] MEDS: METOCLOPRAMIDE 10 MG INJ IV SCH ×3 (05:34→21:33)
[2016-10-07] MEDS: metroNIDAZOLE 500 MG/NS (PMX) 100 ML IVPB SCH ×3 (05:34→21:33)
[2016-10-07] MEDS: LEVOTHYROXINE 100 MCG VIAL IV SCH (05:34)
[2016-10-07] MEDS: PANTOPRAZOLE 40 MG INJ IV SCH ×2 (05:34→17:14)
[2016-10-07 05:36] LABS: ADD SCAN DIFF NO
[2016-10-07 05:38] LABS: ABNORMAL IP MESSAGE 1; HEMATOCRIT 30.1 % (42.0-52.0); HEMOGLOBIN 8.7 g/dl (14.0-18.0); MEAN CORPUSCULAR HEMOGLOBIN 24.6 pg (29.0-33.0); MEAN CORPUSCULAR HGB CONC 28.9 g/dl (32.0-37.0); MEAN CORPUSCULAR VOLUME 85.3 fl (82.0-101.0); MEAN PLATELET VOLUME 11.1 fl (7.4-10.4); PLATELET COUNT 619 10^3/UL (140-415); RED BLOOD COUNT 3.53 10^6/ul (4.70-6.10); RED CELL DISTRIBUTION WIDTH 20.3 % (11.5-14.5); WHITE BLOOD COUNT 48.9 10^3/ul (4.8-10.8)
[2016-10-07] MEDS: INSULIN ASPART [NOVOLOG] 3 ML PEN SC SCH ×4 (05:52→17:31)
[2016-10-07 05:58] LABS: POTASSIUM 3.7 mmol/L (3.5-5.1)
[2016-10-07 06:01] LABS: CALCIUM 7.7 mg/dl (8.4-10.2); CREATININE 2.98 mg/dl (0.61-1.24)
[2016-10-07] MEDS ORDERED: NORepinephrine 8MG/250 ML (PMX 250 ML ONE (08:33)
[2016-10-07] MEDS: MEROPENEM 500 MG/100 ML (PMX) 100 ML IVPB SCH ×2 (08:36→21:33)
[2016-10-07] MEDS: NORepinephrine 8MG/250 ML (PMX 250 ML IV SCH (08:37)
[2016-10-07] MEDS: ZINC SULFATE 220 MG CAP NGT SCH (08:44)
[2016-10-07] MEDS: LACTOBACILLUS CHEW TAB PO SCH ×2 (08:44→13:00)
[2016-10-07] MEDS: MIDODRINE 5 MG TAB PO SCH ×3 (08:44→15:35)
[2016-10-07] MEDS: FINASTERIDE 5 MG TAB GTB SCH (08:44)
[2016-10-07] MEDS: MULTIVITAMINS THERAPEUTIC TAB GTB SCH (08:44)
[2016-10-07 09:14] LABS: EOSINOPHILS # 0.5 10^3/ul (0.0-0.5); LYMPHOCYTES # 3.9 10^3/ul (0.8-2.9); MONOCYTE # 1.5 10^3/ul (0.3-0.9); NEUTROPHIL # 42.5 10^3/ul (1.6-7.5)
[2016-10-07 09:15] LABS: PLATELET ESTIMATE PLT APPEAR INCREASED
--- NOTE | 2016-10-07 09:23 | CONS ---
Date/Time of Note Date/Time of Note DATE: 10/07/16 TIME: 09:18 Assessment/Plan Assessment/Plan Additional Assessment/Plan ASSESSMENT: 1. Acute kidney injury on chronic kidney disease. due to ATN 2. septic shock on levophed 3. severe metabolic acidosis 5. History of chronic respiratory failure, status post tracheostomy, on ventilator. 6. History of G-tube. 7. Poor mental status due to the previous cerebrovascular accident. 8. History of dementia. 9. History of hypertension. PLAN: transferreed to ICU, on Levophed gtt critically ill pt urine output dropped to 100 cc in last 24 hr, K normal HCO3 still low will give Additional HCO3 x 1 ampoule now, continue bicarbonate drip Albumin 25% 100ml IV x 1 followed by NS 1 liter bolus then lasix 40mg IV x 1 now will follow up Consultation Date/Type/Reason Admit Date/Time Sep 24, 2016 at 03:19 Initial Consult Date 09/24/16 Type of Consultation: NEPHROLOGY Reason for Consultation acute kidney injury, septic shock, Oliguria to anuria Referring Provider: ROULA DEL TORO 24 HR Interval Summary Free Text/Dictation pt remains on Levophed gtt for BP support, HCo3 still low, lactic acid high Exam/Review of Systems Vital Signs Vitals Vital Signs Date Time Temp Pulse Resp B/P Pulse Ox O2 Delivery O2 Flow Rate FiO2 10/07/16 08:45 94 18 101/52 99 Mechanical Ventilator 10/07/16 08:00 98.9 10/07/16 07:28 30 Intake and Output 10/06/16 10/06/16 10/07/16 15:00 23:00 07:00 Intake Total 978.74 ml 1628.715 ml 751.875 ml Output Total 50 ml 620 ml 0 ml Balance 928.74 ml 1008.715 ml 751.875 ml Exam GENERAL: This is a chronically ill-appearing, elderly man who is awake, noncommunicative, in no distress. HEENT: Head atraumatic, normocephalic. Sclerae anicteric. Buccal mucosa dry. NECK: Supple. Tracheostomy present. CHEST: Rise symmetrical. Breath sounds diminished to bases. HEART: S1, S2. ABDOMEN: Soft, bowel sounds present. EXTREMITIES: Without cyanosis. Trace edema. Results Result Diagram: 10/07/16 0440 10/07/16 0440 Results 24 hrs Laboratory Tests Test 10/06/16 12:00 10/06/16 13:00 10/06/16 16:00 10/06/16 18:00 Lactic Acid Level 4.4 *H 4.9 *H Bedside Glucose 89 Sodium Level 141 Potassium Level 3.9 Chloride Level 109 Carbon Dioxide Level 16 L Anion Gap 20 #H Blood Urea Nitrogen 65 H Creatinine 2.89 H Glucose Level 74 Calcium Level 8.1 L Test 10/06/16 18:47 10/07/16 00:13 10/07/16 01:30 10/07/16 04:40 Bedside Glucose 81 98 Lactic Acid Level 4.7 *H 5.0 *H White Blood Count 48.9 #H Red Blood Count 3.53 L Hemoglobin 8.7 L Hematocrit 30.1 L Mean Corpuscular Volume 85.3 Mean Corpuscular Hemoglobin 24.6 L Mean Corpuscular Hemoglobin Concent 28.9 L Red Cell Distribution Width 20.3 H Platelet Count 619 #H Mean Platelet Volume 11.1 H Neutrophils % 87.0 H Band Neutrophils % 1.0 Lymphocytes % 8.0 L Monocytes % 3.0 Eosinophils % 1.0 Neutrophils # 42.5 H Lymphocytes # 3.9 H Monocytes # 1.5 H Eosinophils # 0.5 Platelet Estimate PLT APPEAR INCREASED Sodium Level 138 Potassium Level 3.7 Chloride Level 110 Carbon Dioxide Level 16 L Anion Gap 16 Blood Urea Nitrogen 62 H Creatinine 2.98 H Glucose Level 61 #L Calcium Level 7.7 L Test 10/07/16 05:00 10/07/16 05:48 10/07/16 05:49 Blood Gas Specimen Source Blood arterial Arterial Blood Date Drawn 10/07/2016 4:40:15 AM Arterial Blood pH (Temp corrected) 7.397 Arterial Blood pCO2 (Temp correct) 24.0 L Arterial Blood pO2 (Temp corrected) 125.7 H Arterial Blood HCO3 14.4 L Arterial Blood Base Excess -9.1 L Arterial Blood Oxygen Saturation 98.1 Ki Test ACCEPTAB Arterial Blood Gas Puncture Site Right Radial Arterial Blood Carboxyhemoglobin 0.3 Arterial Blood Methemoglobin 0.5 Blood Gas A-a O2 Differential 60.0 H Oxyhemoglobin Percent 97.3 Total Hemoglobin 9.4 L Blood Gas Temperature 37.0 Blood Gas Respiration Rate 16.0 Blood Gas Actual Respiration Rate 27 Blood Gas Modality VENT - AC FiO2 30.0 Blood Gas Tidal Volume 500.0 Blood Gas Low PEEP Setting 5.0 Blood Gas Notified Whom MG Blood Gas Notified Time 10/07/2016 5:18:01 AM Bedside Glucose 78 86 Medications Medications Current Medications Acetaminophen (Tylenol Supp) 650 mg Q4H PRN [place] PAIN LEVEL 1-3 OR FEVER; Start 09/24/16 at 03:00 Eye Lubricant (Artificial Tears Oph) 1 drop TID BOTH EYES Last administered on 10/06/16 13:21; Admin Dose 1 DROP; Start 09/24/16 at 09:00 Sodium Hypochlorite (Dakin'S (1/4 Strength)) 1 applic BID IRR Last administered on 10/06/16 21:09; Admin Dose 1 APPLIC; Start 09/24/16 at 21:00 Pantoprazole (Protonix Iv) 40 mg BID@06,18 IV Last administered on 10/07/16 05: 34; Admin Dose 40 MG; Start 09/24/16 at 18:00 Collagenase (Santyl) 1 applic DAILY TOP Last administered on 10/06/16 16:00; Admin Dose 1 APPLIC; Start 09/24/16 at 20:30 Miscellaneous Information 1 ea NOTE XX ; Start 09/24/16 at 21:00 Glucose (Glutose) 15 gm Q15M PRN PO DECREASED GLUCOSE; Start 09/24/16 at 21:00 Glucose (Glutose) 22.5 gm Q15M PRN PO DECREASED GLUCOSE; Start 09/24/16 at 21: 00 Dextrose (D50w Syringe) 25 ml Q15M PRN IV DECREASED GLUCOSE; Start 09/24/16 at 21:00 Dextrose (D50w Syringe) 50 ml Q15M PRN IV DECREASED GLUCOSE; Start 09/24/16 at 21:00 Glucagon (Glucagen) 1 mg Q15M PRN IM DECREASED GLUCOSE; Start 09/24/16 at 21:00 Glucose 15 gm 15 gm Q15M PRN BUCCAL DECREASED GLUCOSE; Start 09/24/16 at 21:00 Acetaminophen (Ofirmev 1000mg/ 100ml Iv) 100 ml @ 400 mls/hr Q6H PRN IVPB FEVER Last administered on 10/06/16 21:13; Admin Dose 400 MLS/HR; Start at 22:00 Vancomycin HCl (Vancomycin Oral Syringe) 250 mg Q6 PO Last administered on 17:15; Admin Dose 250 MG; Start 09/26/16 at 18:00 Lactobacillus Acidoph/Bulgaricus (Floranex) 1 tab TID PO Last administered on 13:22; Admin Dose 1 TAB; Start 09/26/16 at 21:00 Atorvastatin Calcium (Lipitor) 20 mg QHS GTB Last administered on 10/05/16 21: 42; Admin Dose 20 MG; Start 09/28/16 at 21:00 Finasteride (Proscar) 5 mg DAILY GTB Last administered on 10/06/16 09:12; Admin Dose 5 MG; Start 09/29/16 at 09:00 Multivitamins Therapeutic (Theragran) 1 tab DAILY GTB Last administered on 09:12; Admin Dose 1 TAB; Start 09/29/16 at 09:00 Zinc Sulfate (Zinc Sulfate) 220 mg DAILY NGT Last administered on 10/06/16 09: 13; Admin Dose 220 MG; Start 09/29/16 at 09:00 Insulin Aspart (Novolog Insulin Pen) NOVOLOG *MILD* ALGORI... Q6 SC ; Start at 18:00 Ondansetron HCl (Zofran Inj) 4 mg Q6H PRN IV NAUSEA AND/OR VOMITING Last administered on 10/05/16 17:42; Admin Dose 4 MG; Start 09/29/16 at 07:30 Heparin Sodium (Porcine) (Heparin (5000 Units/0.5 ml)) 5,000 unit BID SC Last administered on 10/06/16 21:24; Admin Dose 5,000 UNIT; Start 09/29/16 at 09:00 Acetaminophen 650 mg 650 mg Q6H PRN GTB PAIN AND OR ELEVATED TEMP Last administered on 10/04/16 21:27; Admin Dose 650 MG; Start 10/02/16 at 08:00 Metronidazole (Flagyl 500 Mg (Pmx)) 100 ml @ 100 mls/hr Q8 IVPB Last administered on 10/07/16 05:34; Admin Dose 100 MLS/HR; Start 10/02/16 at 14:00 Midodrine (Proamatine) 10 mg TID@,,17 PO Last administered on 10/06/16 17: 15; Admin Dose 10 MG; Start 10/06/16 at 01:00 Mupirocin 1 applic 1 applic BID TOP Last administered on 10/06/16 21:24; Admin Dose 1 APPLIC; Start 10/06/16 at 21:00 Sodium Bicarbonate 100 meq/Dextrose 1,100 ml @ 80 mls/hr [id number] IV Last administered on 10/07/16 05:33; Admin Dose 80 MLS/HR; Start 10/06/16 at 11:00 Meropenem 100 ml @ 200 mls/hr Q12 IVPB Last administered on 10/07/16 08:36; Admin Dose 200 MLS/HR; Start 10/06/16 at 14:00 Fluconazole/ Sodium Chloride 50 ml @ 50 mls/hr Q24H IVPB Last administered on 14:27; Admin Dose 50 MLS/HR; Start 10/06/16 at 13:30 Norepinephrine 16 mg/Dextrose 500 ml @ 1.87 mls/hr TITRATE IV ; Start 10/06/16 at 16:30 Linezolid (Zyvox 600mg/D5W (Pmx)) 300 ml @ 300 mls/hr Q12 IVPB Last administered on 10/06/16 21:19; Admin Dose 300 MLS/HR; Start 10/06/16 at 21:00 Levothyroxine Sodium (Synthroid Iv) 12.5 mcg DAILY@06 IV Last administered on 05:34; Admin Dose 12.5 MCG; Start 10/07/16 at 06:00 Metoclopramide HCl 5 mg 5 mg Q8 IV Last administered on 10/07/16 05:34; Admin Dose 5 MG; Start 10/06/16 at 22:00 Albumin Human 100 ml @ 100 mls/hr ONCE ONCE IV ; Start 10/07/16 at 09:30; Stop 10/07/16 at 10:29; Status UNV Sodium Chloride (NS) 1,000 ml @ 1,000 mls/hr Q1H ONCE IV ; Start 10/07/16 at 09: 30; Stop 10/07/16 at 10:29; Status UNV Furosemide (Lasix) 40 mg ONCE ONCE IV ; Start 10/07/16 at 09:30; Stop 10/07/16 at 09:31; Status ELENIV MAGGIE DINERO MD Oct 07, 2016 09:23
[2016-10-07] MEDS ORDERED: FUROSEMIDE 40 MG INJ IV SCH (09:30)
[2016-10-07] MEDS ORDERED: ALBUMIN HUMAN 25% 100 ML IV ONE (09:30)
[2016-10-07] MEDS ORDERED: NA BICARBONATE 8.4% 50 ML SYG IV ONE (09:30)
[2016-10-07] MEDS ORDERED: SOD CHLORIDE 0.9% 1,000 ML IV ONE (09:30)
--- NOTE | 2016-10-07 09:35 | PN ---
Date/Time of Note Date/Time of Note DATE: 10/07/16 TIME: 09:32 Assessment/Plan Lines/Catheters IV [facility] Type (from [facility] Central Line Cee in Place (from [facility]): Yes Assessment/Plan Chief Complaint/Hosp Course 1. Shock, septic (uti, pna, wound), worsening again -Judicious fluid management -Supportive measures -Antibiotics 2. Multiple decubitus ulcerations with necrotic tissue and deep tissue injury -Offload -Local care -Vitamin C -Eventual nutritional optimization -Debridement when medically cleared 3. Contracted state with functional quadriplegia -Offloading -Nutritional optimization when possible 4. Anemia -Monitor 5. Ventilator dependent respiratory failure -Ventilator management and pulmonary toilet 6. Renal insufficiency -Judicious fluid management -Avoid nephrotoxic agents 7. Coronary artery disease and history of non-ST elevation NV -Cardiac optimization Thank you Problems: Subjective 24 Hr Interval Summary Transferred to ICU on pressors. Leukocytosis worsening. Fevers. No chills. No cough. No seizure. No rash. No vomiting. No blood per mouth or rectum. No bloating. No seizures. Exam/Review of Systems Vital Signs Vitals Vital Signs Date Time Temp Pulse Resp B/P Pulse Ox O2 Delivery O2 Flow Rate FiO2 10/07/16 08:45 94 18 101/52 99 Mechanical Ventilator 10/07/16 08:00 98.9 10/07/16 07:28 30 Intake and Output 10/06/16 10/06/16 10/07/16 15:00 23:00 07:00 Intake Total 978.74 ml 1628.715 ml 751.875 ml Output Total 50 ml 620 ml 0 ml Balance 928.74 ml 1008.715 ml 751.875 ml Exam Free Text/Dictation Constitutional: No alert, No oriented Psych: No nl mood/affect Head: atraumatic, normocephalic Eyes: nl conjunctiva, No EOMI, No icteric ENMT: mucosa pink and moist, nl external ears & nose Neck: jvd, other (Trach in place), No non-tender, No supple Respiratory: No congested cough, No labored breathing Cardiovascular: No regular rate and rhythm Gastrointestinal: non-tender, other (PEG in place), soft, No rebound or guarding Musculoskeletal: No joint tenderness, No nl extremities to inspection, No nl gait and stance Extremities: No calf tenderness, No cyanosis Neurological: No nl mental status, No nl speech, No nl strength Skin: rash or lesions (Multiple decubitus ulcerations with debris, necrotic tissue, deep tissue injury), No diaphoresis, No nl turgor Lymph: nontender Results Result Diagram: 10/07/16 0440 10/07/16 0440 EVA GUARDADO MD Oct 07, 2016 09:35
[2016-10-07] MEDS: LINEZOLID 600 MG/D5W (PMX) 300 ML IVPB SCH ×2 (09:40→21:33)
[2016-10-07] MEDS: ARTIFICIAL TEARS 15 ML OPH BOTH EYES SCH ×3 (09:42→21:33)
[2016-10-07] MEDS: SODIUM HYPOCHLORITE 0.125% 473 ML BTL IRR SCH ×2 (09:42→21:33)
[2016-10-07] MEDS: MUPIROCIN 2% 22 GM OINT TOP SCH ×2 (09:43→21:33)
[2016-10-07] MEDS: COLLAGENASE 30 GM TUBE TOP SCH (09:43)
[2016-10-07] MEDS: HEPARIN 5,000 UNIT/0.5 ML VIAL SC SCH ×2 (09:59→21:36)
--- NOTE | 2016-10-07 10:17 | CONS ---
Date/Time of Note Date/Time of Note DATE: 10/07/16 TIME: 10:14 Consult Date/Type/Reason Admit Date/Time Sep 24, 2016 at 03:19 Initial Consult Date 09/24/16 Type of Consultation: pulmonary critical care Ordering Provider: ROULA DEL TORO Subjective Patient remains somnolent on mechanical ventilation continues vasopressor support Objective Vital Signs Date Time Temp Pulse Resp B/P Pulse Ox O2 Delivery O2 Flow Rate FiO2 10/07/16 10:00 103 35 86/46 100 Mechanical Ventilator 10/07/16 09:35 30 10/07/16 08:00 98.9 Intake and Output 10/06/16 10/06/16 10/07/16 15:00 23:00 07:00 Intake Total 978.74 ml 1628.715 ml 751.875 ml Output Total 50 ml 620 ml 0 ml Balance 928.74 ml 1008.715 ml 751.875 ml Exam PHYSICAL EXAMINATION GENERAL: Elderly gentleman, tracheostomy on mechanical ventilation VITAL SIGNS: see below. HEENT: Pupils equal, round, and reactive to light. Dry mucous membranes CARDIAC: S1, S2, 1/6 systolic murmur CHEST: Diminished air entry bilaterally. Rales right base ABDOMEN: Mildly distended. Diminished bowel sounds no guarding or rebound EXTREMITIES: No cyanosis, clubbing edema +1 NEUROLOGIC: Unable to assess Results/Medications Result Diagram: 10/07/16 0440 10/07/16 0440 Results 24 hrs Laboratory Tests Test 10/06/16 12:00 10/06/16 13:00 10/06/16 16:00 10/06/16 18:00 Lactic Acid Level 4.4 *H 4.9 *H Bedside Glucose 89 Sodium Level 141 Potassium Level 3.9 Chloride Level 109 Carbon Dioxide Level 16 L Anion Gap 20 #H Blood Urea Nitrogen 65 H Creatinine 2.89 H Glucose Level 74 Calcium Level 8.1 L Test 10/06/16 18:47 10/07/16 00:13 10/07/16 01:30 10/07/16 04:40 Bedside Glucose 81 98 Lactic Acid Level 4.7 *H 5.0 *H White Blood Count 48.9 #H Red Blood Count 3.53 L Hemoglobin 8.7 L Hematocrit 30.1 L Mean Corpuscular Volume 85.3 Mean Corpuscular Hemoglobin 24.6 L Mean Corpuscular Hemoglobin Concent 28.9 L Red Cell Distribution Width 20.3 H Platelet Count 619 #H Mean Platelet Volume 11.1 H Neutrophils % 87.0 H Band Neutrophils % 1.0 Lymphocytes % 8.0 L Monocytes % 3.0 Eosinophils % 1.0 Neutrophils # 42.5 H Lymphocytes # 3.9 H Monocytes # 1.5 H Eosinophils # 0.5 Platelet Estimate PLT APPEAR INCREASED Sodium Level 138 Potassium Level 3.7 Chloride Level 110 Carbon Dioxide Level 16 L Anion Gap 16 Blood Urea Nitrogen 62 H Creatinine 2.98 H Glucose Level 61 #L Calcium Level 7.7 L Test 10/07/16 05:00 10/07/16 05:48 10/07/16 05:49 Blood Gas Specimen Source Blood arterial Arterial Blood Date Drawn 10/07/2016 4:40:15 AM Arterial Blood pH (Temp corrected) 7.397 Arterial Blood pCO2 (Temp correct) 24.0 L Arterial Blood pO2 (Temp corrected) 125.7 H Arterial Blood HCO3 14.4 L Arterial Blood Base Excess -9.1 L Arterial Blood Oxygen Saturation 98.1 Ki Test ACCEPTAB Arterial Blood Gas Puncture Site Right Radial Arterial Blood Carboxyhemoglobin 0.3 Arterial Blood Methemoglobin 0.5 Blood Gas A-a O2 Differential 60.0 H Oxyhemoglobin Percent 97.3 Total Hemoglobin 9.4 L Blood Gas Temperature 37.0 Blood Gas Respiration Rate 16.0 Blood Gas Actual Respiration Rate 27 Blood Gas Modality VENT - AC FiO2 30.0 Blood Gas Tidal Volume 500.0 Blood Gas Low PEEP Setting 5.0 Blood Gas Notified Whom MG Blood Gas Notified Time 10/07/2016 5:18:01 AM Bedside Glucose 78 86 Medications Current Medications Acetaminophen (Tylenol Supp) 650 mg Q4H PRN [place] PAIN LEVEL 1-3 OR FEVER; Start 09/24/16 at 03:00 Eye Lubricant (Artificial Tears Oph) 1 drop TID BOTH EYES Last administered on 10/07/16 09:42; Admin Dose 1 DROP; Start 09/24/16 at 09:00 Sodium Hypochlorite (Dakin'S (1/4 Strength)) 1 applic BID IRR Last administered on 10/07/16 09:42; Admin Dose 1 APPLIC; Start 09/24/16 at 21:00 Pantoprazole (Protonix Iv) 40 mg BID@,18 IV Last administered on 10/07/16 05: 34; Admin Dose 40 MG; Start 09/24/16 at 18:00 Collagenase (Santyl) 1 applic DAILY TOP Last administered on 10/07/16 09:43; Admin Dose 1 APPLIC; Start 09/24/16 at 20:30 Miscellaneous Information 1 ea NOTE XX ; Start 09/24/16 at 21:00 Glucose (Glutose) 15 gm Q15M PRN PO DECREASED GLUCOSE; Start 09/24/16 at 21:00 Glucose (Glutose) 22.5 gm Q15M PRN PO DECREASED GLUCOSE; Start 09/24/16 at 21: 00 Dextrose (D50w Syringe) 25 ml Q15M PRN IV DECREASED GLUCOSE; Start 09/24/16 at 21:00 Dextrose (D50w Syringe) 50 ml Q15M PRN IV DECREASED GLUCOSE; Start 09/24/16 at 21:00 Glucagon (Glucagen) 1 mg Q15M PRN IM DECREASED GLUCOSE; Start 09/24/16 at 21:00 Glucose 15 gm 15 gm Q15M PRN BUCCAL DECREASED GLUCOSE; Start 09/24/16 at 21:00 Acetaminophen (Ofirmev 1000mg/ 100ml Iv) 100 ml @ 400 mls/hr Q6H PRN IVPB FEVER Last administered on 10/06/16 21:13; Admin Dose 400 MLS/HR; Start at 22:00 Vancomycin HCl (Vancomycin Oral Syringe) 250 mg Q6 PO Last administered on 17:15; Admin Dose 250 MG; Start 09/26/16 at 18:00 Lactobacillus Acidoph/Bulgaricus (Floranex) 1 tab TID PO Last administered on 13:22; Admin Dose 1 TAB; Start 09/26/16 at 21:00 Atorvastatin Calcium (Lipitor) 20 mg QHS GTB Last administered on 10/05/16 21: 42; Admin Dose 20 MG; Start 09/28/16 at 21:00 Finasteride (Proscar) 5 mg DAILY GTB Last administered on 10/06/16 09:12; Admin Dose 5 MG; Start 09/29/16 at 09:00 Multivitamins Therapeutic (Theragran) 1 tab DAILY GTB Last administered on 09:12; Admin Dose 1 TAB; Start 09/29/16 at 09:00 Zinc Sulfate (Zinc Sulfate) 220 mg DAILY NGT Last administered on 10/06/16 09: 13; Admin Dose 220 MG; Start 09/29/16 at 09:00 Insulin Aspart (Novolog Insulin Pen) NOVOLOG *MILD* ALGORI... Q6 SC ; Start at 18:00 Ondansetron HCl (Zofran Inj) 4 mg Q6H PRN IV NAUSEA AND/OR VOMITING Last administered on 10/05/16 17:42; Admin Dose 4 MG; Start 09/29/16 at 07:30 Heparin Sodium (Porcine) (Heparin (5000 Units/0.5 ml)) 5,000 unit BID SC Last administered on 10/07/16 09:59; Admin Dose 5,000 UNIT; Start 09/29/16 at 09:00 Acetaminophen 650 mg 650 mg Q6H PRN GTB PAIN AND OR ELEVATED TEMP Last administered on 10/04/16 21:27; Admin Dose 650 MG; Start 10/02/16 at 08:00 Metronidazole (Flagyl 500 Mg (Pmx)) 100 ml @ 100 mls/hr Q8 IVPB Last administered on 10/07/16 05:34; Admin Dose 100 MLS/HR; Start 10/02/16 at 14:00 Midodrine (Proamatine) 10 mg TID@09,13,17 PO Last administered on 10/06/16 17: 15; Admin Dose 10 MG; Start 10/06/16 at 01:00 Mupirocin 1 applic 1 applic BID TOP Last administered on 10/07/16 09:43; Admin Dose 1 APPLIC; Start 10/06/16 at 21:00 Sodium Bicarbonate 100 meq/Dextrose 1,100 ml @ 80 mls/hr [id number] IV Last administered on 10/07/16 05:33; Admin Dose 80 MLS/HR; Start 10/06/16 at 11:00 Meropenem 100 ml @ 200 mls/hr Q12 IVPB Last administered on 10/07/16 08:36; Admin Dose 200 MLS/HR; Start 10/06/16 at 14:00 Fluconazole/ Sodium Chloride 50 ml @ 50 mls/hr Q24H IVPB Last administered on 14:27; Admin Dose 50 MLS/HR; Start 10/06/16 at 13:30 Norepinephrine 16 mg/Dextrose 500 ml @ 1.87 mls/hr TITRATE IV ; Start 10/06/16 at 16:30 Linezolid (Zyvox 600mg/D5W (Pmx)) 300 ml @ 300 mls/hr Q12 IVPB Last administered on 10/07/16 09:40; Admin Dose 300 MLS/HR; Start 10/06/16 at 21:00 Levothyroxine Sodium (Synthroid Iv) 12.5 mcg DAILY@06 IV Last administered on 05:34; Admin Dose 12.5 MCG; Start 10/07/16 at 06:00 Metoclopramide HCl 5 mg 5 mg Q8 IV Last administered on 10/07/16 05:34; Admin Dose 5 MG; Start 10/06/16 at 22:00 Albumin Human 100 ml @ 100 mls/hr ONCE ONCE IV ; Start 10/07/16 at 09:30; Stop 10/07/16 at 10:29 Sodium Chloride (NS) 1,000 ml @ 1,000 mls/hr Q1H ONCE IV ; Start 10/07/16 at 09: 30; Stop 10/07/16 at 10:29 Furosemide (Lasix) 40 mg ONCE IV ; Start 10/07/16 at 09:30; Stop 10/07/16 at 13:00 Assessment/Plan Chief Complaint/Hosp Course Assessment 1. Septic shock secondary to pneumonia versus line sepsis 2. Significant anemia requiring blood transfusions 3. Vent dependent respiratory failure 4. Dysphagia with G-tube 5. Hypernatremia 6. History of renal insufficiency 7. 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 Continue mechanical ventilation 2. Continue antibiotics per infectious diseases continue vasopressors repeat lactic acid check cortisol 3. Monitor H&H 4. Continue renal recommendations, metabolic acidosis noted 5. Continue DVT and GI prophylaxis 6. Bioethics consultation and Palliative care recommendations Disposition Continue intensive care monitoring for now Critical care time 35 minutes Problems: ABBI DELCID MD, [facility] Oct 07, 2016 10:16
--- NOTE | 2016-10-07 10:22 | CONS ---
Date/Time of Note Date/Time of Note DATE: 10/07/16 TIME: 10:22 Assessment/Plan Assessment/Plan Chief Complaint/Hosp Course Impression 1. Severe sepsis with septic shock 2/2 Decub ulcers and/or UTI and/or PNA: WBC increasing and having fevers 2. Ileus causing nausea and vomiting. Ileus is shown on KUB from 10-05-16 3. Anemia secondary to GI bleed (Coffee ground drainage from G tube). 4. Ecoli bacteremia and UTI : 5. Multifocal pneumonia (E coli / A baumanii) 6. 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 Dysphagia: tube feed dependent on PEG 8. Acute renal failure 2/2 ATN from dehydration: improving 9. Severe multiple pressure ulcers infected with multiple organisms including MRSA 10. Chronic resp failure ventilator dependent Via tracheostomy PLAN: 1. hold tube feed for now. CT showed improved ileus with reglan. Dr. Dawson will decide tomorrow whether to restart tube feed. 2. continue reglan due to his recent h/o ileus 3. consider EGD if family agrees 4. continue protonix bid dosing 5. Dr. Dawson to resume care to this patient tomorrow. Problems: Consultation Date/Type/Reason Admit Date/Time Sep 24, 2016 at 03:19 Initial Consult Date 09/24/16 Type of Consultation: GI Referring Provider: ROULA DEL TORO 24 HR Interval Summary Subjective hx not possible: pt non-verbal, pt critical Constitutional: disoriented Exam/Review of Systems Vital Signs Vitals Vital Signs Date Time Temp Pulse Resp B/P Pulse Ox O2 Delivery O2 Flow Rate FiO2 10/07/16 10:00 103 35 86/46 100 Mechanical Ventilator 10/07/16 09:35 30 10/07/16 08:00 98.9 Intake and Output 10/06/16 10/06/16 10/07/16 15:00 23:00 07:00 Intake Total 978.74 ml 1628.715 ml 751.875 ml Output Total 50 ml 620 ml 0 ml Balance 928.74 ml 1008.715 ml 751.875 ml Exam Constitutional: frail Psych: confusion Head: atraumatic, normocephalic Eyes: EOMI, nl conjunctiva, nl lids ENMT: nl external ears & nose, nl lips & teeth, nl nasal mucosa & septum Neck: non-tender, supple Respiratory: clear to auscultation, normal air movement Cardiovascular: nl pulses, regular rate and rhythm Gastrointestinal: bowel sounds, non-tender, other (GT c/d/i), soft Results Result Diagram: 10/07/16 0440 10/07/16 0440 Results 24 hrs Laboratory Tests Test 10/06/16 12:00 10/06/16 13:00 10/06/16 16:00 10/06/16 18:00 Lactic Acid Level 4.4 *H 4.9 *H Bedside Glucose 89 Sodium Level 141 Potassium Level 3.9 Chloride Level 109 Carbon Dioxide Level 16 L Anion Gap 20 #H Blood Urea Nitrogen 65 H Creatinine 2.89 H Glucose Level 74 Calcium Level 8.1 L Test 10/06/16 18:47 10/07/16 00:13 10/07/16 01:30 10/07/16 04:40 Bedside Glucose 81 98 Lactic Acid Level 4.7 *H 5.0 *H White Blood Count 48.9 #H Red Blood Count 3.53 L Hemoglobin 8.7 L Hematocrit 30.1 L Mean Corpuscular Volume 85.3 Mean Corpuscular Hemoglobin 24.6 L Mean Corpuscular Hemoglobin Concent 28.9 L Red Cell Distribution Width 20.3 H Platelet Count 619 #H Mean Platelet Volume 11.1 H Neutrophils % 87.0 H Band Neutrophils % 1.0 Lymphocytes % 8.0 L Monocytes % 3.0 Eosinophils % 1.0 Neutrophils # 42.5 H Lymphocytes # 3.9 H Monocytes # 1.5 H Eosinophils # 0.5 Platelet Estimate PLT APPEAR INCREASED Sodium Level 138 Potassium Level 3.7 Chloride Level 110 Carbon Dioxide Level 16 L Anion Gap 16 Blood Urea Nitrogen 62 H Creatinine 2.98 H Glucose Level 61 #L Calcium Level 7.7 L Test 10/07/16 05:00 10/07/16 05:48 10/07/16 05:49 Blood Gas Specimen Source Blood arterial Arterial Blood Date Drawn 10/07/2016 4:40:15 AM Arterial Blood pH (Temp corrected) 7.397 Arterial Blood pCO2 (Temp correct) 24.0 L Arterial Blood pO2 (Temp corrected) 125.7 H Arterial Blood HCO3 14.4 L Arterial Blood Base Excess -9.1 L Arterial Blood Oxygen Saturation 98.1 Ki Test ACCEPTAB Arterial Blood Gas Puncture Site Right Radial Arterial Blood Carboxyhemoglobin 0.3 Arterial Blood Methemoglobin 0.5 Blood Gas A-a O2 Differential 60.0 H Oxyhemoglobin Percent 97.3 Total Hemoglobin 9.4 L Blood Gas Temperature 37.0 Blood Gas Respiration Rate 16.0 Blood Gas Actual Respiration Rate 27 Blood Gas Modality VENT - AC FiO2 30.0 Blood Gas Tidal Volume 500.0 Blood Gas Low PEEP Setting 5.0 Blood Gas Notified Whom MG Blood Gas Notified Time 10/07/2016 5:18:01 AM Bedside Glucose 78 86 Medications Medications Current Medications Acetaminophen (Tylenol Supp) 650 mg Q4H PRN [place] PAIN LEVEL 1-3 OR FEVER; Start 09/24/16 at 03:00 Eye Lubricant (Artificial Tears Oph) 1 drop TID BOTH EYES Last administered on 10/07/16 09:42; Admin Dose 1 DROP; Start 09/24/16 at 09:00 Sodium Hypochlorite (Dakin'S (1/4 Strength)) 1 applic BID IRR Last administered on 10/07/16 09:42; Admin Dose 1 APPLIC; Start 09/24/16 at 21:00 Pantoprazole (Protonix Iv) 40 mg BID@06,18 IV Last administered on 10/07/16 05: 34; Admin Dose 40 MG; Start 09/24/16 at 18:00 Collagenase (Santyl) 1 applic DAILY TOP Last administered on 10/07/16 09:43; Admin Dose 1 APPLIC; Start 09/24/16 at 20:30 Miscellaneous Information 1 ea NOTE XX ; Start 09/24/16 at 21:00 Glucose (Glutose) 15 gm Q15M PRN PO DECREASED GLUCOSE; Start 09/24/16 at 21:00 Glucose (Glutose) 22.5 gm Q15M PRN PO DECREASED GLUCOSE; Start 09/24/16 at 21: 00 Dextrose (D50w Syringe) 25 ml Q15M PRN IV DECREASED GLUCOSE; Start 09/24/16 at 21:00 Dextrose (D50w Syringe) 50 ml Q15M PRN IV DECREASED GLUCOSE; Start 09/24/16 at 21:00 Glucagon (Glucagen) 1 mg Q15M PRN IM DECREASED GLUCOSE; Start 09/24/16 at 21:00 Glucose 15 gm 15 gm Q15M PRN BUCCAL DECREASED GLUCOSE; Start 09/24/16 at 21:00 Acetaminophen (Ofirmev 1000mg/ 100ml Iv) 100 ml @ 400 mls/hr Q6H PRN IVPB FEVER Last administered on 10/06/16 21:13; Admin Dose 400 MLS/HR; Start at 22:00 Vancomycin HCl (Vancomycin Oral Syringe) 250 mg Q6 PO Last administered on 17:15; Admin Dose 250 MG; Start 09/26/16 at 18:00 Lactobacillus Acidoph/Bulgaricus (Floranex) 1 tab TID PO Last administered on 13:22; Admin Dose 1 TAB; Start 09/26/16 at 21:00 Atorvastatin Calcium (Lipitor) 20 mg QHS GTB Last administered on 10/05/16 21: 42; Admin Dose 20 MG; Start 09/28/16 at 21:00 Finasteride (Proscar) 5 mg DAILY GTB Last administered on 10/06/16 09:12; Admin Dose 5 MG; Start 09/29/16 at 09:00 Multivitamins Therapeutic (Theragran) 1 tab DAILY GTB Last administered on 09:12; Admin Dose 1 TAB; Start 09/29/16 at 09:00 Zinc Sulfate (Zinc Sulfate) 220 mg DAILY NGT Last administered on 10/06/16 09: 13; Admin Dose 220 MG; Start 09/29/16 at 09:00 Insulin Aspart (Novolog Insulin Pen) NOVOLOG *MILD* ALGORI... Q6 SC ; Start at 18:00 Ondansetron HCl (Zofran Inj) 4 mg Q6H PRN IV NAUSEA AND/OR VOMITING Last administered on 10/05/16 17:42; Admin Dose 4 MG; Start 09/29/16 at 07:30 Heparin Sodium (Porcine) (Heparin (5000 Units/0.5 ml)) 5,000 unit BID SC Last administered on 10/07/16 09:59; Admin Dose 5,000 UNIT; Start 09/29/16 at 09:00 Acetaminophen 650 mg 650 mg Q6H PRN GTB PAIN AND OR ELEVATED TEMP Last administered on 10/04/16 21:27; Admin Dose 650 MG; Start 10/02/16 at 08:00 Metronidazole (Flagyl 500 Mg (Pmx)) 100 ml @ 100 mls/hr Q8 IVPB Last administered on 10/07/16 05:34; Admin Dose 100 MLS/HR; Start 10/02/16 at 14:00 Midodrine (Proamatine) 10 mg TID@09,13,17 PO Last administered on 10/06/16 17: 15; Admin Dose 10 MG; Start 10/06/16 at 01:00 Mupirocin 1 applic 1 applic BID TOP Last administered on 10/07/16 09:43; Admin Dose 1 APPLIC; Start 10/06/16 at 21:00 Sodium Bicarbonate 100 meq/Dextrose 1,100 ml @ 80 mls/hr [id number] IV Last administered on 10/07/16 05:33; Admin Dose 80 MLS/HR; Start 10/06/16 at 11:00 Meropenem 100 ml @ 200 mls/hr Q12 IVPB Last administered on 10/07/16 08:36; Admin Dose 200 MLS/HR; Start 10/06/16 at 14:00 Fluconazole/ Sodium Chloride 50 ml @ 50 mls/hr Q24H IVPB Last administered on 14:27; Admin Dose 50 MLS/HR; Start 10/06/16 at 13:30 Norepinephrine 16 mg/Dextrose 500 ml @ 1.87 mls/hr TITRATE IV ; Start 10/06/16 at 16:30 Linezolid (Zyvox 600mg/D5W (Pmx)) 300 ml @ 300 mls/hr Q12 IVPB Last administered on 10/07/16 09:40; Admin Dose 300 MLS/HR; Start 10/06/16 at 21:00 Levothyroxine Sodium (Synthroid Iv) 12.5 mcg DAILY@06 IV Last administered on 05:34; Admin Dose 12.5 MCG; Start 10/07/16 at 06:00 Metoclopramide HCl 5 mg 5 mg Q8 IV Last administered on 10/07/16 05:34; Admin Dose 5 MG; Start 10/06/16 at 22:00 Albumin Human 100 ml @ 100 mls/hr ONCE ONCE IV ; Start 10/07/16 at 09:30; Stop 10/07/16 at 10:29 Sodium Chloride (NS) 1,000 ml @ 1,000 mls/hr Q1H ONCE IV ; Start 10/07/16 at 09: 30; Stop 10/07/16 at 10:29 Furosemide (Lasix) 40 mg ONCE IV ; Start 10/07/16 at 09:30; Stop 10/07/16 at 13:00 RUDY MORE MD Oct 07, 2016 10:22
--- NOTE | 2016-10-07 11:02 | PN ---
DATE: 10/07/2016 TIME: 0900 SUBJECTIVE DATA: Remains on pressors for blood pressure support. OBJECTIVE DATA: VITAL SIGNS: Temperature 98.9, pulse rate 102, respiratory rate 35, blood pressure 86/46, oxygen saturation 100% on 30% FIO2 via mechanical ventilator. GENERAL: This is an elderly, frail-looking male lying in bed in no apparent distress. HEENT: Head normocephalic and atraumatic. Eyes: Anicteric sclerae. Conjunctivae clear. ENT: Nasal septum is midline. Oral mucosa is dry. NECK: Supple. Tracheostomy midline. RESPIRATORY: A tracheostomy connected to mechanical ventilator. On AC mode ventilation. CARDIAC: Regular rate and rhythm with a grade III/ systolic ejection murmur. ABDOMEN: Soft, nontender and nondistended. G-tube in place. GENITOURINARY: Deferred. EXTREMITIES: No cyanosis, no clubbing. Peripheral pulses diminished. Bilateral foot edema. Contracted bilateral upper and bilateral lower extremities. NEUROLOGIC: The patient is obtunded. LABORATORY AND DIAGNOSTIC DATA: WBC 40.9, hemoglobin 8.7, hematocrit 30.1, platelet count 619. Sodium 130, potassium 3.7, chloride 110, carbon dioxide 16 , anion gap 16, BUN 62, creatinine 2.98, glucose 61, calcium 7.7, lactic acid 5.0. ASSESSMENT & PLAN: 1. Sepsis secondary to infected sacral decubitus wound. The wound culture has been positive for Klebsiella pneumoniae, Acinetobacter baumannii, vancomycin- resistant Enterococcus species and Staph aureus. Continue antimicrobials as per infectious diseases. Weaned off IV pressors as tolerated. 2. Infected sacral decubitus ulcer. Continue pain management. Continue local dressing changes as per wound care consultants. 3. Chronic respiratory failure. Status post tracheostomy and vent dependent. Continue inhaled bronchodilators. Pulmonary following the patient. 4. Acute renal failure. Secondary to hemodynamics versus from acute tubular necrosis. Continue to use nephrotoxic medications with caution. 5. Moderate . Monitor. Cardiology following. 6. 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 Continue supportive care. 7. Hypothyroidism. Continue Synthroid. 8. Dysphagia secondary to encephalopathy. Continue aspiration precautions. Continue G-tube feedings. 9. Normocytic anemia. Continue to monitor the H and H closely. Transfuse as needed. 10. Leukocytosis with thrombocytosis. The patient being followed by Hematology. Continue to monitor. 11. DVT prophylaxis. Subcutaneous heparin. 12. Gastrointestinal prophylaxis. Proton pump inhibitors. 13 Fluid, electrolytes and nutrition. Continue G tube feedings. 14. Gastrointestinal prophylaxis. Proton pump inhibitors. PLAN: 1. Continue ICU monitoring. 2. Continue to wean off medications, pressors as tolerated. Case discussed with Dr. Del Toro. CRITICAL CARE TIME: 35 minutes. BIGG DEL TORO MD, AM/ELIZABETH Conf#: [id number] DID#: [id number] MTDD
[2016-10-07] MEDS: FLUCONAZOLE 100 MG/NS (PMX) 50 ML IVPB SCH (14:39)
--- NOTE | 2016-10-07 14:50 | PN ---
DATE: 10/07/2016 INFECTIOUS DISEASE PROGRESS NOTE SUBJECTIVE: The patient is on Levophed drip, lying comfortably in bed, continuously spiking fevers with a T-max of 101.8. VITAL SIGNS: Pulse 103, respirations 24, blood pressure 86/46, saturation 100 on 30 FIO2. LABORATORY DATA: WBC 48.9, H and H 8.7 and 30.1, platelets 619, neutrophils 87, bands 1, lymphs 8, monos 3. BUN 62, creatinine 2.98. Lactic acid 5. MICROBIOLOGY: Urine culture since October 05 growing yeast. Blood culture negative. MRSA swab repe ated negative. INDWELLINGS: Trach, PEG, Cee, left subclavian triple-lumen catheter. ANTIMICROBIALS: The patient is on: 1. Zyvox. 2. Topical Bactroban to nares. 3. Meropenem. 4. Fluconazole. 5. Flagyl. 6. Also on oral vancomycin. PHYSICAL EXAMINATION: GENERAL: This is a chronically ill-appearing, elderly man who is lying comfortably in bed. HEENT: Head atraumatic, normocephalic. Sclerae anicteric. Buccal mucosa dry. NECK: Supple. Tracheostomy present. CHEST: Rise symmetrical. Breath sounds diminished. HEART: S1, S2. ABDOMEN: Distended, positive tympany on percussion. Bowel sounds hypoactive. EXTREMITIES: With trace edema. SKIN: With multiple necrotic wounds. ASSESSMENT: 1. Severe sepsis with shock and multisystem organ failure. 2. Healthcare-acquired pneumonia. 3. Urinary tract infection. 4. Polymicrobial bacteremia on admission with blood culture grew Escherichia coli and Bacteroides f ragilis. 5. Status post Escherichia coli and urinary tract infection on admission. 6. Methicillin-resistant Staphylococcus aureus nares colonization. 7. History of cerebrovascular accident. 8. Diarrhea with a history of severe pseudomembranous colitis and Clostridium difficile colitis. 9. Ileus with abdominal distention. 10. History of coronary artery disease. 11. Acute kidney injury. PLAN: The patient remains hemodynamically unstable with worsening white blood cell count. CT abdom en was ordered 2 days. Not done yet. He is being followed by multiple consultants. Dictated By: CHRISTOPHER MCDONOUGH [employer] for YAQUELIN ESTRELLA MD NI/NTS Conf#: [id number] DID#: [id number]
--- NOTE | 2016-10-07 15:51 | RADRPT ---
PROCEDURE: CT Abdomen and Pelvis without contrast. CLINICAL INDICATION: Abdominal and pelvic pain. TECHNIQUE: CT scan of the abdomen and pelvis without contrast was performed. Coronal and sagittal reformatted images were obtained from the axial source images. Images were reviewed on a high-resolu tion PACS workstation. Total exam DLP is 1337.32 mGy-cm. CTDIvol is 25.70 mGy. One or more of the following dose reduction techniques were used: Automated exposure control, adjustment of the mA and/ or kV according to patient size, use of iterative reconstruction technique. COMPARISON: None. FINDINGS: There is air space disease at both lung bases with left worse than right. There is a small right pl eural effusion and moderate left pleural effusion. The heart size is normal and there is no pericar dial effusion. The liver is normal in size and attenuation. There is no focal hepatic lesion. The gallbladder and bile ducts are normal. The spleen is mildly enlarged. There is no focal splenic lesion. Both adrenals are normal with no enlargement or mass. The pancreas is unremarkable with no mass or evidence of pancreatitis. There is no solid renal mass or calculus. There is a benign cyst in the mid right kidney laterally measuring 4 cm in maximal dimension. There is moderate right hydronephrosis with the right ureter d ilated down to the level of the mid pelvis. No obstructing lesion is visualized. There is moderate left hydroureteronephrosis which may be due to a calculus in the left ureterovesicle junction or le ft side of bladder measuring 0.7 x 1.7 cm in AP and transverse dimensions. There is no other obstru cting lesion or calculus visualized. There is a Cee catheter with the balloon inflated in the pros tatic urethra inferiorly. The abdominal aorta is not dilated. There is calcification in the aorta consistent with atheroscler osis. There is no retroperitoneal lymphadenopathy or mass. There is no pelvic lymphadenopathy or mass. There is moderate free fluid throughout the abdomen and pelvis. There is no free air. A rectal tube is present in satisfactory position. The bowel is otherwise unremarkable. There is a gastrostomy tube in satisfactory position. There are degenerative changes of the spine and hips. There are large osteophytes arising from both acetabulae posteriorly. There is a skin ulcer overlying the inferior sacrum and a skin ulcer overl leona the left hip. Gas is present within the large posterior osteophyte with bone lysis consistent with osteomyelitis. There are degenerative changes of the spine. There is no other fracture or lyt ic lesion. IMPRESSION: 1. Air space disease at the lung bases with left worse than right. Left basilar pneumonia cannot b e excluded. 2. Small right pleural effusion and moderate left pleural effusion. 3. Mild splenomegaly. 4. Benign cyst in the mid right kidney laterally measuring 4 cm. 5. Moderate right hydronephrosis with dilated right ureter and no obstructing lesion visualized. 6. Moderate left hydroureteronephrosis which may be due to a calculus in the left ureteral vesicle junction or left-sided bladder measuring 0.7 x 1.7 cm. 7. Cee catheter balloon inflated in the prostatic urethra inferiorly. 8. Atherosclerosis. 9. Moderate free fluid throughout the abdomen and pelvis. 10. Rectal tube in satisfactory position. 11. Gastrostomy tube in satisfactory position. 12. Degenerative changes of the spine and hips with large osteophytes arising from both acetabula p osteriorly. 13. Skin ulcers overlying the inferior sacrum and left hip posteriorly. 14. 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 Call report: A call report of the findings regarding the Cee catheter balloon was made to the [facility] nurse on 11/03/2016 at 1540 hours. RPTAT: QQ .Ho Medeiros MD, Date Time Electronically viewed and signed by .Ho Medeiros MD, MD on 10/07/2016 15:50 .R/
--- NOTE | 2016-10-07 16:32 | CONS ---
Date/Time of Note Date/Time of Note DATE: 10/07/16 TIME: 16:30 Assessment/Plan Assessment/Plan Additional Assessment/Plan Severe septic shock Preserved ejection fraction Moderate aortic stenosis Respiratory failure Coronary artery disease Anemia, worsening Acute kidney injury -Titrate IV pressor to maintain SBP greater than 90 and/or map above 60, IV fluids as per nephrology colleague. Continue to hold any antihypertensives nephrotoxic medications. Consultation Date/Type/Reason Admit Date/Time Sep 24, 2016 at 03:19 Initial Consult Date 09/24/16 Type of Consultation: cv Referring Provider: ROULA DEL TORO 24 HR Interval Summary Free Text/Dictation Patient seen and examined, no new cardiac issues as per nursing staff Exam/Review of Systems Vital Signs Vitals Vital Signs Date Time Temp Pulse Resp B/P Pulse Ox O2 Delivery O2 Flow Rate FiO2 10/07/16 15:30 104 29 90/45 100 Mechanical Ventilator 10/07/16 14:59 30 10/07/16 11:30 99.8 Intake and Output 10/06/16 10/06/16 10/07/16 15:00 23:00 07:00 Intake Total 978.74 ml 1628.715 ml 751.875 ml Output Total 50 ml 620 ml 0 ml Balance 928.74 ml 1008.715 ml 751.875 ml Exam Awake, no apparent distress Head: normocephalic Neck: other (Tracheostomy) Respiratory: other (Coarse breath sounds bilaterally, no wheezing) Cardiovascular: other (S1-S2 heard), regular rate and rhythm Gastrointestinal: bowel sounds, non-tender, other (No grimacing with palpation) , soft Extremities: edema, other (No edema) Results Result Diagram: 10/07/16 0440 10/07/16 0440 Results 24 hrs Laboratory Tests Test 10/06/16 18:00 10/06/16 18:47 10/07/16 00:13 10/07/16 01:30 Lactic Acid Level 4.9 *H 4.7 *H Bedside Glucose 81 98 Test 10/07/16 04:40 10/07/16 05:00 10/07/16 05:48 10/07/16 05:49 White Blood Count 48.9 #H Red Blood Count 3.53 L Hemoglobin 8.7 L Hematocrit 30.1 L Mean Corpuscular Volume 85.3 Mean Corpuscular Hemoglobin 24.6 L Mean Corpuscular Hemoglobin Concent 28.9 L Red Cell Distribution Width 20.3 H Platelet Count 619 #H Mean Platelet Volume 11.1 H Neutrophils % 87.0 H Band Neutrophils % 1.0 Lymphocytes % 8.0 L Monocytes % 3.0 Eosinophils % 1.0 Neutrophils # 42.5 H Lymphocytes # 3.9 H Monocytes # 1.5 H Eosinophils # 0.5 Platelet Estimate PLT APPEAR INCREASED Sodium Level 138 Potassium Level 3.7 Chloride Level 110 Carbon Dioxide Level 16 L Anion Gap 16 Blood Urea Nitrogen 62 H Creatinine 2.98 H Glucose Level 61 #L Lactic Acid Level 5.0 *H Calcium Level 7.7 L Blood Gas Specimen Source Blood arterial Arterial Blood Date Drawn 10/07/2016 4:40:15 AM Arterial Blood pH (Temp corrected) 7.397 Arterial Blood pCO2 (Temp correct) 24.0 L Arterial Blood pO2 (Temp corrected) 125.7 H Arterial Blood HCO3 14.4 L Arterial Blood Base Excess -9.1 L Arterial Blood Oxygen Saturation 98.1 Ki Test ACCEPTAB Arterial Blood Gas Puncture Site Right Radial Arterial Blood Carboxyhemoglobin 0.3 Arterial Blood Methemoglobin 0.5 Blood Gas A-a O2 Differential 60.0 H Oxyhemoglobin Percent 97.3 Total Hemoglobin 9.4 L Blood Gas Temperature 37.0 Blood Gas Respiration Rate 16.0 Blood Gas Actual Respiration Rate 27 Blood Gas Modality VENT - AC FiO2 30.0 Blood Gas Tidal Volume 500.0 Blood Gas Low PEEP Setting 5.0 Blood Gas Notified Whom MG Blood Gas Notified Time 10/07/2016 5:18:01 AM Bedside Glucose 78 86 Test 10/07/16 11:46 Bedside Glucose 90 Medications Medications Current Medications Acetaminophen (Tylenol Supp) 650 mg Q4H PRN DC PAIN LEVEL 1-3 OR FEVER; Start 09/24/16 at 03:00 Eye Lubricant (Artificial Tears Oph) 1 drop TID BOTH EYES Last administered on 10/07/16 09:42; Admin Dose 1 DROP; Start 09/24/16 at 09:00 Sodium Hypochlorite (Dakin'S (1/4 Strength)) 1 applic BID IRR Last administered on 10/07/16 09:42; Admin Dose 1 APPLIC; Start 09/24/16 at 21:00 Pantoprazole (Protonix Iv) 40 mg BID@,18 IV Last administered on 10/07/16 05: 34; Admin Dose 40 MG; Start 09/24/16 at 18:00 Collagenase (Santyl) 1 applic DAILY TOP Last administered on 10/07/16 09:43; Admin Dose 1 APPLIC; Start 09/24/16 at 20:30 Miscellaneous Information 1 ea NOTE XX ; Start 09/24/16 at 21:00 Glucose (Glutose) 15 gm Q15M PRN PO DECREASED GLUCOSE; Start 09/24/16 at 21:00 Glucose (Glutose) 22.5 gm Q15M PRN PO DECREASED GLUCOSE; Start 09/24/16 at 21: 00 Dextrose (D50w Syringe) 25 ml Q15M PRN IV DECREASED GLUCOSE; Start 09/24/16 at 21:00 Dextrose (D50w Syringe) 50 ml Q15M PRN IV DECREASED GLUCOSE; Start 09/24/16 at 21:00 Glucagon (Glucagen) 1 mg Q15M PRN IM DECREASED GLUCOSE; Start 09/24/16 at 21:00 Glucose 15 gm 15 gm Q15M PRN BUCCAL DECREASED GLUCOSE; Start 09/24/16 at 21:00 Acetaminophen (Ofirmev 1000mg/ 100ml Iv) 100 ml @ 400 mls/hr Q6H PRN IVPB FEVER Last administered on 10/06/16 21:13; Admin Dose 400 MLS/HR; Start at 22:00 Vancomycin HCl (Vancomycin Oral Syringe) 250 mg Q6 PO Last administered on 17:15; Admin Dose 250 MG; Start 09/26/16 at 18:00; Status Future Hold Lactobacillus Acidoph/Bulgaricus (Floranex) 1 tab TID PO Last administered on 13:22; Admin Dose 1 TAB; Start 09/26/16 at 21:00; Status Future Hold Atorvastatin Calcium (Lipitor) 20 mg QHS GTB Last administered on 10/05/16 21: 42; Admin Dose 20 MG; Start 09/28/16 at 21:00; Status Future Hold Finasteride (Proscar) 5 mg DAILY GTB Last administered on 10/06/16 09:12; Admin Dose 5 MG; Start 09/29/16 at 09:00; Status Future Hold Multivitamins Therapeutic (Theragran) 1 tab DAILY GTB Last administered on 09:12; Admin Dose 1 TAB; Start 09/29/16 at 09:00; Status Future Hold Zinc Sulfate (Zinc Sulfate) 220 mg DAILY NGT Last administered on 10/06/16 09: 13; Admin Dose 220 MG; Start 09/29/16 at 09:00; Status Future Hold Insulin Aspart (Novolog Insulin Pen) NOVOLOG *MILD* ALGORI... Q6 SC ; Start at 18:00 Ondansetron HCl (Zofran Inj) 4 mg Q6H PRN IV NAUSEA AND/OR VOMITING Last administered on 10/05/16 17:42; Admin Dose 4 MG; Start 09/29/16 at 07:30 Heparin Sodium (Porcine) (Heparin (5000 Units/0.5 ml)) 5,000 unit BID SC Last administered on 10/07/16 09:59; Admin Dose 5,000 UNIT; Start 09/29/16 at 09:00 Acetaminophen 650 mg 650 mg Q6H PRN GTB PAIN AND OR ELEVATED TEMP Last administered on 10/04/16 21:27; Admin Dose 650 MG; Start 10/02/16 at 08:00 Metronidazole (Flagyl 500 Mg (Pmx)) 100 ml @ 100 mls/hr Q8 IVPB Last administered on 10/07/16 16:19; Admin Dose 100 MLS/HR; Start 10/02/16 at 14:00 Midodrine (Proamatine) 10 mg TID@,13,17 PO Last administered on 10/06/16 17: 15; Admin Dose 10 MG; Start 10/06/16 at 01:00; Status Future Hold Mupirocin 1 applic 1 applic BID TOP Last administered on 10/07/16 09:43; Admin Dose 1 APPLIC; Start 10/06/16 at 21:00 Sodium Bicarbonate 100 meq/Dextrose 1,100 ml @ 80 mls/hr [id number] IV Last administered on 10/07/16 05:33; Admin Dose 80 MLS/HR; Start 10/06/16 at 11:00 Meropenem 100 ml @ 200 mls/hr Q12 IVPB Last administered on 10/07/16 08:36; Admin Dose 200 MLS/HR; Start 4/2/17 at 14:00 Fluconazole/ Sodium Chloride 50 ml @ 50 mls/hr Q24H IVPB Last administered on 14:39; Admin Dose 50 MLS/HR; Start 10/06/16 at 13:30 Norepinephrine 16 mg/Dextrose 500 ml @ 1.87 mls/hr TITRATE IV Last administered on 10/07/16 14:42; Admin Dose 9.37 MLS/HR; Start 10/06/16 at 16:30 Linezolid (Zyvox 600mg/D5W (Pmx)) 300 ml @ 300 mls/hr Q12 IVPB Last administered on 10/07/16 09:40; Admin Dose 300 MLS/HR; Start 10/06/16 at 21:00 Levothyroxine Sodium (Synthroid Iv) 12.5 mcg DAILY@06 IV Last administered on 05:34; Admin Dose 12.5 MCG; Start 10/07/16 at 06:00 Metoclopramide HCl (Reglan) 5 mg Q8 IV Last administered on 10/07/16 14:41; Admin Dose 5 MG; Start 10/06/16 at 22:00 Ryder Wild DO Oct 07, 2016 16:32
[2016-10-07] MEDS: ACETAMINOPHEN 1000MG/100ML IV 100 ML IVPB PRN (17:14)
--- NOTE | 2016-10-07 22:23 | CONS ---
Date/Time of Note Date/Time of Note DATE: 10/07/16 TIME: 22:23 Assessment/Plan Assessment/Plan Chief Complaint/Hosp Course ANEMIA - NEAR- MICROCYTIC WITH INCREASED RDW DROP H/H DURING HOSPITALIZATION + ACD TRANSFUSE PRBC TO KEEP HB MORE THAN 8 TRANSFUSE NEEDED GI F-UP Stool OB, negative Monitor H&H every 8 hours, transfuse 2 units for hemoglobin less than 8 Continue PPI drips EGD PER [facility] LEUKOCYTOSIS- REACTIVE CONT ATB FOR SEPSIS THROMBOCYTOSIS REACTIVE SHOULD IMPROVE WITH RESOLUTION OF SEPSIS Severe sepsis with septic shock 2/2 Decub ulcers and/or UTI and/or PNA: stable, off pressor support Severe hypernatremic dehydration Acute renal failure 2/2 ATN from dehydration UTI Multifocal pneumonia Encephalopathy ?acute versus acute on chronic (baseline unknown) Hypokalemia Problems: Consultation Date/Type/Reason Admit Date/Time Sep 24, 2016 at 03:19 Initial Consult Date 09/24/16 Type of Consultation: hemeonc Referring Provider: ROULA DEL TORO 24 HR Interval Summary Free Text/Dictation all noted count reviewed Exam/Review of Systems Vital Signs Vitals Vital Signs Date Time Temp Pulse Resp B/P Pulse Ox O2 Delivery O2 Flow Rate FiO2 10/07/16 21:47 97 24 100 30 10/07/16 18:30 100/50 Mechanical Ventilator 10/07/16 17:00 101.5 Intake and Output 10/06/16 10/06/16 10/07/16 15:00 23:00 07:00 Intake Total 978.74 ml 1628.715 ml 751.875 ml Output Total 50 ml 620 ml 0 ml Balance 928.74 ml 1008.715 ml 751.875 ml Exam Constitutional: No alert, No oriented Psych: No nl mood/affect Head: atraumatic, normocephalic Eyes: nl conjunctiva, No EOMI, No icteric ENMT: mucosa pink and moist, nl external ears & nose Neck: jvd, other (Trach in place), No non-tender, No supple Respiratory: No congested cough, No labored breathing Cardiovascular: No regular rate and rhythm Gastrointestinal: non-tender, other (PEG in place), soft, No rebound or guarding Musculoskeletal: No joint tenderness, No nl extremities to inspection, No nl gait and stance Extremities: No calf tenderness, No cyanosis Neurological: No nl mental status, No nl speech, No nl strength Skin: rash or lesions (Multiple decubitus ulcerations with debris, necrotic tissue, deep tissue injury), No diaphoresis, No nl turgor Lymph: nontender Results Result Diagram: 10/07/16 0440 10/07/16 0440 Results 24 hrs Laboratory Tests Test 10/07/16 00:13 10/07/16 01:30 10/07/16 04:40 10/07/16 05:00 Bedside Glucose 98 Lactic Acid Level 4.7 *H 5.0 *H White Blood Count 48.9 #H Red Blood Count 3.53 L Hemoglobin 8.7 L Hematocrit 30.1 L Mean Corpuscular Volume 85.3 Mean Corpuscular Hemoglobin 24.6 L Mean Corpuscular Hemoglobin Concent 28.9 L Red Cell Distribution Width 20.3 H Platelet Count 619 #H Mean Platelet Volume 11.1 H Neutrophils % 87.0 H Band Neutrophils % 1.0 Lymphocytes % 8.0 L Monocytes % 3.0 Eosinophils % 1.0 Neutrophils # 42.5 H Lymphocytes # 3.9 H Monocytes # 1.5 H Eosinophils # 0.5 Platelet Estimate PLT APPEAR INCREASED Sodium Level 138 Potassium Level 3.7 Chloride Level 110 Carbon Dioxide Level 16 L Anion Gap 16 Blood Urea Nitrogen 62 H Creatinine 2.98 H Glucose Level 61 #L Calcium Level 7.7 L Blood Gas Specimen Source Blood arterial Arterial Blood Date Drawn 10/07/2016 4:40:15 AM Arterial Blood pH (Temp corrected) 7.397 Arterial Blood pCO2 (Temp correct) 24.0 L Arterial Blood pO2 (Temp corrected) 125.7 H Arterial Blood HCO3 14.4 L Arterial Blood Base Excess -9.1 L Arterial Blood Oxygen Saturation 98.1 Ki Test ACCEPTAB Arterial Blood Gas Puncture Site Right Radial Arterial Blood Carboxyhemoglobin 0.3 Arterial Blood Methemoglobin 0.5 Blood Gas A-a O2 Differential 60.0 H Oxyhemoglobin Percent 97.3 Total Hemoglobin 9.4 L Blood Gas Temperature 37.0 Blood Gas Respiration Rate 16.0 Blood Gas Actual Respiration Rate 27 Blood Gas Modality VENT - AC FiO2 30.0 Blood Gas Tidal Volume 500.0 Blood Gas Low PEEP Setting 5.0 Blood Gas Notified Whom MG Blood Gas Notified Time 10/07/2016 5:18:01 AM Test 10/07/16 05:48 10/07/16 05:49 10/07/16 11:46 10/07/16 17:27 Bedside Glucose 78 86 90 79 Medications Medications Current Medications Acetaminophen (Tylenol Supp) 650 mg Q4H PRN PA PAIN LEVEL 1-3 OR FEVER; Start 09/24/16 at 03:00 Eye Lubricant (Artificial Tears Oph) 1 drop TID BOTH EYES Last administered on 10/07/16 21:33; Admin Dose 1 DROP; Start 09/24/16 at 09:00 Sodium Hypochlorite (Dakin'S (1/4 Strength)) 1 applic BID IRR Last administered on 10/07/16 21:33; Admin Dose 1 APPLIC; Start 09/24/16 at 21:00 Pantoprazole (Protonix Iv) 40 mg BID@06,18 IV Last administered on 10/07/16 17: 14; Admin Dose 40 MG; Start 09/24/16 at 18:00 Collagenase (Santyl) 1 applic DAILY TOP Last administered on 10/07/16 09:43; Admin Dose 1 APPLIC; Start 09/24/16 at 20:30 Miscellaneous Information 1 ea NOTE XX ; Start 09/24/16 at 21:00 Glucose (Glutose) 15 gm Q15M PRN PO DECREASED GLUCOSE; Start 09/24/16 at 21:00 Glucose (Glutose) 22.5 gm Q15M PRN PO DECREASED GLUCOSE; Start 09/24/16 at 21: 00 Dextrose (D50w Syringe) 25 ml Q15M PRN IV DECREASED GLUCOSE; Start 09/24/16 at 21:00 Dextrose (D50w Syringe) 50 ml Q15M PRN IV DECREASED GLUCOSE; Start 09/24/16 at 21:00 Glucagon (Glucagen) 1 mg Q15M PRN IM DECREASED GLUCOSE; Start 09/24/16 at 21:00 Glucose 15 gm 15 gm Q15M PRN BUCCAL DECREASED GLUCOSE; Start 09/24/16 at 21:00 Acetaminophen (Ofirmev 1000mg/ 100ml Iv) 100 ml @ 400 mls/hr Q6H PRN IVPB FEVER Last administered on 10/07/16 17:14; Admin Dose 400 MLS/HR; Start at 22:00 Vancomycin HCl (Vancomycin Oral Syringe) 250 mg Q6 PO Last administered on 17:15; Admin Dose 250 MG; Start 09/26/16 at 18:00; Status Future Hold Lactobacillus Acidoph/Bulgaricus (Floranex) 1 tab TID PO Last administered on 13:22; Admin Dose 1 TAB; Start 09/26/16 at 21:00; Status Future Hold Atorvastatin Calcium (Lipitor) 20 mg QHS GTB Last administered on 10/05/16 21: 42; Admin Dose 20 MG; Start 09/28/16 at 21:00; Status Future Hold Finasteride (Proscar) 5 mg DAILY GTB Last administered on 10/06/16 09:12; Admin Dose 5 MG; Start 09/29/16 at 09:00; Status Future Hold Multivitamins Therapeutic (Theragran) 1 tab DAILY GTB Last administered on 09:12; Admin Dose 1 TAB; Start 09/29/16 at 09:00; Status Future Hold Zinc Sulfate (Zinc Sulfate) 220 mg DAILY NGT Last administered on 10/06/16 09: 13; Admin Dose 220 MG; Start 09/29/16 at 09:00; Status Future Hold Insulin Aspart (Novolog Insulin Pen) NOVOLOG *MILD* ALGORI... Q6 SC ; Start at 18:00 Ondansetron HCl (Zofran Inj) 4 mg Q6H PRN IV NAUSEA AND/OR VOMITING Last administered on 10/05/16 17:42; Admin Dose 4 MG; Start 09/29/16 at 07:30 Heparin Sodium (Porcine) (Heparin (5000 Units/0.5 ml)) 5,000 unit BID SC Last administered on 10/07/16 21:36; Admin Dose 5,000 UNIT; Start 09/29/16 at 09:00 Acetaminophen 650 mg 650 mg Q6H PRN GTB PAIN AND OR ELEVATED TEMP Last administered on 10/04/16 21:27; Admin Dose 650 MG; Start 10/02/16 at 08:00 Metronidazole (Flagyl 500 Mg (Pmx)) 100 ml @ 100 mls/hr Q8 IVPB Last administered on 10/07/16 21:33; Admin Dose 100 MLS/HR; Start 10/02/16 at 14:00 Midodrine (Proamatine) 10 mg TID@09,13,17 PO Last administered on 10/06/16 17: 15; Admin Dose 10 MG; Start 10/06/16 at 01:00; Status Future Hold Mupirocin 1 applic 1 applic BID TOP Last administered on 10/07/16 21:33; Admin Dose 1 APPLIC; Start 10/06/16 at 21:00 Sodium Bicarbonate 100 meq/Dextrose 1,100 ml @ 80 mls/hr [id number] IV Last administered on 10/07/16 21:37; Admin Dose 80 MLS/HR; Start 10/06/16 at 11:00 Meropenem 100 ml @ 200 mls/hr Q12 IVPB Last administered on 10/07/16 21:33; Admin Dose 200 MLS/HR; Start 10/06/16 at 14:00 Fluconazole/ Sodium Chloride 50 ml @ 50 mls/hr Q24H IVPB Last administered on 14:39; Admin Dose 50 MLS/HR; Start 10/06/16 at 13:30 Norepinephrine 16 mg/Dextrose 500 ml @ 1.87 mls/hr TITRATE IV Last administered on 10/07/16 14:42; Admin Dose 9.37 MLS/HR; Start 10/06/16 at 16:30 Linezolid (Zyvox 600mg/D5W (Pmx)) 300 ml @ 300 mls/hr Q12 IVPB Last administered on 10/07/16 21:33; Admin Dose 300 MLS/HR; Start 10/06/16 at 21:00 Levothyroxine Sodium (Synthroid Iv) 12.5 mcg DAILY@06 IV Last administered on 05:34; Admin Dose 12.5 MCG; Start 10/07/16 at 06:00 Metoclopramide HCl (Reglan) 5 mg Q8 IV Last administered on 10/07/16 21:33; Admin Dose 5 MG; Start 10/06/16 at 22:00 SCOTT RODRIGUES MD Oct 07, 2016 22:23
[2016-10-08] VITALS (73 sets, daily range): BP systolic 69–120; BP diastolic 32–64; PULSE 95–123; RESP 17–35
[2016-10-08] MEDS: IPRATROPIUM (HFA) 12.9 GM INHALER INH SCH ×4 (01:07→19:25)
[2016-10-08] MEDS: ALBUTEROL HFA 8 GM INHALER INH SCH ×4 (01:08→19:26)
--- NOTE | 2016-10-08 03:32 | CONS ---
DATE OF ADMISSION: 09/24/2016 DATE OF CONSULTATION: 10/07/2016 REQUESTING PHYSICIAN: Dr. No Valero HISTORY OF PRESENT ILLNESS: This is a 81-year-old male who was initially admitted to [facility] because of hypotension. He was brought from the residential. The patient had septi cemia and sepsis, septic shock. He is on a respirator and G-tube also feeding. Apparently the luis eduardo ent had a CT scan of the abdomen and pelvis today, and that showed that the balloon of the Cee cat heter was inflated into the prostatic urethra. Therefore, a urological consultation was requested. The patient does have multiple problems. He himself cannot communicate, and he has sepsis secondar y to infected sacral decubitus wound. The wound culture showed Klebsiella pneumoniae, acinetobacter and vancomycin-resistant enterococcus, also Staphylococcus aureus. The patient is being managed by Infectious Disease for this problem. He does have infected sacral decubitus ulcer. He has chronic respiratory failure. He has tracheostomy and vent dependent. 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 The ms tient has G-tube in place. Normocytic anemia, leukocytosis with thrombocytosis. ALLERGIES: THE PATIENT HAS NO KNOWN DRUG ALLERGIES. SOCIAL HISTORY: No history of smoking or drinking. MEDICATIONS HE IS ON PRESENTLY: Include: 1. Levothyroxine. 2. Reglan. 3. Bactroban topical. 4. Linezolid. 5. Norepinephrine drip. 6. Meropenem. 7. Fluconazole. 8. Flagyl. 9. Tylenol. 10. Albuterol. 11. Ipratropium. 12. Heparin subQ. 13. Zofran p.r.n. 14. Protonix. PHYSICAL EXAMINATION: GENERAL: A 81-year-old male. He weighs about 70.45 kg. He is 68 inches tall. He has severe contr acture of all extremities, mostly the right lower extremity, and he has a tracheostomy and on a resp irator, gastrostomy also. ABDOMEN: Distended. GENITOURINARY: The scrotum is very swollen as well as the penis. He does have a catheter that was reported on the CT scan not to be all the way inside the bladder. EXTREMITIES: He also does have sacral decubitus. VITAL SIGNS: His temperature is 101.5; he has had 102 before. The pulse is 104, respirations 26, b lood pressure 100/50. LABORATORY DATA: CBC shows a white count of 48,900, the hemoglobin 8.7, hematocrit 30.1. BUN is 62 , creatinine 2.98, sodium 138, potassium 3.7, chloride 110, CO2 16. PT 15.8, INR 1.25. He did have a urine culture on 10/05 that showed Teresita glabrata. The CT scan that was done today was reported as impression: 1. Airspace disease at the lung bases with left worse than right. Left basilar pneumonia cannot be excluded. 2. Small right pleural effusion and moderate left pleural effusion. 3. Mild splenomegaly. 4. Benign cyst in the mid right kidney laterally measuring 4 cm. 5. Moderate right hydronephrosis with dilated right ureter and no obstructing lesion visualized. 6. Moderate left hydronephrosis which may be due to a calculus in the left ureter at the left urete rovesical junction or left-sided bladder. The stone measures 7 x 17 mm. 7. Cee catheter balloon inflated in the prostatic urethra inferiorly. 8. Atherosclerosis. 9. Moderate free fluid throughout the abdomen and pelvis. 10. Rectal tube in satisfactory position. 11. Gastrostomy tube in satisfactory position. 12. Degenerative changes of the spine and hips with large osteophytes arising from both acetabula p osteriorly. 13. Skin ulcers overlying the inferior sacrum and left hip posteriorly. 14. 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 Because of the catheter not being in the bladder, I had to remove the Cee catheter that he had and insert a new catheter. He has a lot of penoscrotal edema, and one cannot even see the urethral jim tus. Therefore, I did reposition the patient in his bed so the leg contracture would not be in the way. After removing the old Cee catheter, the patient was draped in a sterile manner, and the pen is was painted with Betadine. Then, since I could not feel the meatus, I had to feel it with a fing er. I inserted the finger into the penis and felt the meatus. Then I directed a 14-[facility] coude sd maria ines to that area, and I advanced the catheter all the way to the bladder, and it did go into the bladder, and at that moment, I inflated the balloon, connected the catheter to a drainage bag, and t he urine that drained out was clear. The patient does have very extensive penoscrotal edema. There fore, I ordered to have of the scrotum elevated on a towel all the time, and a urine culture was ord ered. Dictated By: MISHEL WOODWARD/ELIZABETH Conf#: [id number] DID#: [id number]
[2016-10-08] MEDS: INSULIN ASPART [NOVOLOG] 3 ML PEN SC SCH ×4 (06:00→17:50)
[2016-10-08] MEDS: LEVOTHYROXINE 100 MCG VIAL IV SCH (06:08)
[2016-10-08] MEDS: PANTOPRAZOLE 40 MG INJ IV SCH ×2 (06:08→17:49)
[2016-10-08] MEDS: METOCLOPRAMIDE 10 MG INJ IV SCH ×3 (06:09→21:59)
[2016-10-08] MEDS: metroNIDAZOLE 500 MG/NS (PMX) 100 ML IVPB SCH ×3 (06:09→22:03)
[2016-10-08 06:27] LABS: ADD SCAN DIFF NO
[2016-10-08 06:42] LABS: ABNORMAL IP MESSAGE 1; HEMATOCRIT 29.1 % (42.0-52.0); HEMOGLOBIN 8.7 g/dl (14.0-18.0); MEAN CORPUSCULAR HGB CONC 29.9 g/dl (32.0-37.0); MEAN CORPUSCULAR VOLUME 83.6 fl (82.0-101.0); PLATELET COUNT 433 10^3/UL (140-415); RED BLOOD COUNT 3.48 10^6/ul (4.70-6.10); RED CELL DISTRIBUTION WIDTH 20.1 % (11.5-14.5)
[2016-10-08 06:55] LABS: POTASSIUM 3.3 mmol/L (3.5-5.1)
[2016-10-08 06:57] LABS: CREATININE 2.49 mg/dl (0.61-1.24)
[2016-10-08 06:58] LABS: CALCIUM 7.5 mg/dl (8.4-10.2)
[2016-10-08 07:51] LABS: MAGNESIUM 1.6 mg/dl (1.7-2.5); PHOSPHORUS 6.2 mg/dl (2.5-4.9)
[2016-10-08 07:52] LABS: Allen Test ACCEPTAB; Arterial Base Excess -6.1 mmol/L (-3.0-3); Arterial COHb 0.3 % (0.0-3.0); Arterial Fraction of Oxyhgb 96.7 % (93.0-99.0); Arterial HCO3 16.6 mmol/L (22.0-26.0); Arterial MetHb 0.5 % (0.0-1.5); Arterial Total Hemglobin 9.7 g/dl (12.0-18.0); MODE VENT - AC
--- NOTE | 2016-10-08 08:24 | RADRPT ---
PROCEDURE: XR Chest. CLINICAL INDICATION: Pneumonia, CHF TECHNIQUE: An AP view of the chest was obtained. COMPARISON: Chest x-ray dated 10/05/[address] abdomen and pelvis dated 10/07/2016 FINDINGS: A tracheostomy tube is in place. There is a left subclavian central venous catheter with tip in the mid SVC. The left lung base is obscured by the patient's hand. There is prominence of the interstitial and central pulmonary vascular markings. There is a small right pleural effusion. No pneumothorax is se en. The cardiomediastinal silhouette is mildly enlarged . Calcifications are seen within the aorti c arch. The osseous structures demonstrate senescent changes. IMPRESSION: 1. Limited evaluation. The patient's hand obscures evaluation of the left lung base. 2. Findings suggestive of interstitial edema with small right pleural effusion. No significant inte rval change. 3. Mild cardiomegaly and aortic atherosclerosis. 4. Tubes and lines, as described above. RPTAT: .Terra Dinh MD, MD Date Time Electronically viewed and signed by .Terra Dinh MD, on 10/08/2016 08:24 .G/
--- NOTE | 2016-10-08 08:46 | PN ---
Date/Time of Note Date/Time of Note DATE: 10/08/16 TIME: 08:45 Assessment/Plan VTE Prophylaxis VTE Prophylaxis Intervention: heparin Lines/Catheters [facility] Central Line Central line still needed: Yes Urinary Cath still in place: Yes Reason Cath still needed: skin wounds contaminated by urine Assessment/Plan Chief Complaint/Hosp Course 1. Sepsis with underlying septic shock secondary to infected sacral decubitus wound. The wound culture has been positive for Klebsiella pneumoniae, Acinetobacter baumannii, vancomycin-resistant Enterococcus and Staph aureus. Continue antimicrobials as per infectious diseases. Wean off IV pressors as tolerated. 2. Infected sacral decubitus ulcer. Continue pain management. Continue local dressing changes as per wound care consultants. 3. Chronic respiratory failure. Status post tracheostomy and vent dependent. Continue inhaled bronchodilators. Pulmonary following the patient. 4. Acute renal failure. Most probably secondary to hemodynamics versus from acute tubular necrosis. Continue to use nephrotoxic medications with caution. 5. 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 Continue antimicrobials as per ID. 6. 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 Continue supportive care. 7. Hypothyroidism. Continue Synthroid. 8. Dysphagia secondary to encephalopathy. Continue aspiration precautions. Continue G tube feedings. 9. Normocytic anemia. Continue to monitor the H and H closely. Transfuse as needed. 10. Leukocytosis with thrombocytosis. The patient being followed by Hematology. Continue to monitor. 11. DVT prophylaxis. Subcutaneous heparin. 12. Gastrointestinal prophylaxis. Proton pump inhibitors. 13 Fluid, electrolytes and nutrition. Continue G tube feedings. 14. Gastrointestinal prophylaxis. Proton pump inhibitors. PLAN: 1. Continue ICU monitoring. 2. Continue to wean off pressors as tolerated. 3. Poor prognosis. Palliative care on the case. Case discussed with Dr. Chang. CRITICAL CARE TIME: 35 minutes. Problems: Subjective 24 Hr Interval Summary Free Text/Dictation The patient remains on pressors. Exam/Review of Systems Vital Signs Vitals Vital Signs Date Time Temp Pulse Resp B/P Pulse Ox O2 Delivery O2 Flow Rate FiO2 10/08/16 06:30 115 20 69/43 100 10/08/16 06:00 Mechanical Ventilator 10/08/16 05:39 30 10/08/16 04:00 99.8 Intake and Output 10/07/16 10/07/16 10/08/16 15:00 23:00 07:00 Intake Total 2373.09 ml 1352.46 ml 796.21 ml Output Total 0 ml 125 ml 1300 ml Balance 2373.09 ml 1227.46 ml -503.79 ml Exam GENERAL: This is an elderly, frail-looking male lying in bed in no apparent distress. HEENT: Head normocephalic and atraumatic. Eyes: Anicteric sclerae. Conjunctivae clear. ENT: Nasal septum is midline. Oral mucosa is dry. NECK: Supple. Tracheostomy midline. RESPIRATORY: A tracheostomy connected to mechanical ventilator. On AC mode ventilation. CARDIAC: Regular rate and rhythm with a grade III/ systolic ejection murmur. ABDOMEN: Soft, nontender and nondistended. G-tube in place. GENITOURINARY: Deferred. EXTREMITIES: No cyanosis, no clubbing. Peripheral pulses. Bilateral upper extremity edema. Bilateral foot edema. Contracted bilateral upper and bilateral lower extremities. NEUROLOGIC: The patient is obtunded. Results Result Diagram: 10/08/16 0600 10/08/16 0600 Results 24 hrs Laboratory Tests Test 10/07/16 11:46 10/07/16 17:27 10/08/16 00:15 10/08/16 00:20 Bedside Glucose 90 79 91 Lactic Acid Level 5.0 *H Test 10/08/16 06:00 10/08/16 06:08 10/08/16 07:00 White Blood Count 26.0 #H Red Blood Count 3.48 L Hemoglobin 8.7 L Hematocrit 29.1 L Mean Corpuscular Volume 83.6 Mean Corpuscular Hemoglobin 25.0 L Mean Corpuscular Hemoglobin Concent 29.9 L Red Cell Distribution Width 20.1 H Platelet Count 433 #H Mean Platelet Volume 11.0 H Sodium Level 138 Potassium Level 3.3 L Chloride Level 105 Carbon Dioxide Level 17 L Anion Gap 19 H Blood Urea Nitrogen 58 H Creatinine 2.49 H Glucose Level 73 Lactic Acid Level 4.9 *H Calcium Level 7.5 L Phosphorus Level 6.2 H Magnesium Level 1.6 L Bedside Glucose 83 Blood Gas Specimen Source Blood arterial Arterial Blood Date Drawn 10/08/2016 7:35:23 AM Arterial Blood pH (Temp corrected) 7.452 H Arterial Blood pCO2 (Temp correct) 24.3 L Arterial Blood pO2 (Temp corrected) 100.4 H Arterial Blood HCO3 16.6 L Arterial Blood Base Excess -6.1 L Arterial Blood Oxygen Saturation 97.5 Ki Test ACCEPTAB Arterial Blood Gas Puncture Site Right Radial Arterial Blood Carboxyhemoglobin 0.3 Arterial Blood Methemoglobin 0.5 Blood Gas A-a O2 Differential 85.0 H Oxyhemoglobin Percent 96.7 Total Hemoglobin 9.7 L Blood Gas Temperature 37.0 Blood Gas Respiration Rate 16.0 Blood Gas Actual Respiration Rate 32 Blood Gas Modality VENT - AC FiO2 30.0 Blood Gas Tidal Volume 500.0 Blood Gas Low PEEP Setting 5.0 Blood Gas Notified Whom JLD Blood Gas Notified Time 10/08/2016 7:52:40 AM Medications Medications Current Medications Acetaminophen (Tylenol Supp) 650 mg Q4H PRN AR PAIN LEVEL 1-3 OR FEVER; Start 09/24/16 at 03:00 Eye Lubricant (Artificial Tears Oph) 1 drop TID BOTH EYES Last administered on 10/07/16 21:33; Admin Dose 1 DROP; Start 09/24/16 at 09:00 Sodium Hypochlorite (Dakin'S (1/4 Strength)) 1 applic BID IRR Last administered on 10/07/16 21:33; Admin Dose 1 APPLIC; Start 09/24/16 at 21:00 Pantoprazole (Protonix Iv) 40 mg BID@06,18 IV Last administered on 10/08/16 06: 08; Admin Dose 40 MG; Start 09/24/16 at 18:00 Collagenase (Santyl) 1 applic DAILY TOP Last administered on 10/07/16 09:43; Admin Dose 1 APPLIC; Start 09/24/16 at 20:30 Miscellaneous Information 1 ea NOTE XX ; Start 09/24/16 at 21:00 Glucose (Glutose) 15 gm Q15M PRN PO DECREASED GLUCOSE; Start 09/24/16 at 21:00 Glucose (Glutose) 22.5 gm Q15M PRN PO DECREASED GLUCOSE; Start 09/24/16 at 21: 00 Dextrose (D50w Syringe) 25 ml Q15M PRN IV DECREASED GLUCOSE; Start 09/24/16 at 21:00 Dextrose (D50w Syringe) 50 ml Q15M PRN IV DECREASED GLUCOSE; Start 09/24/16 at 21:00 Glucagon (Glucagen) 1 mg Q15M PRN IM DECREASED GLUCOSE; Start 09/24/16 at 21:00 Glucose 15 gm 15 gm Q15M PRN BUCCAL DECREASED GLUCOSE; Start 09/24/16 at 21:00 Acetaminophen (Ofirmev 1000mg/ 100ml Iv) 100 ml @ 400 mls/hr Q6H PRN IVPB FEVER Last administered on 10/07/16 17:14; Admin Dose 400 MLS/HR; Start at 22:00 Vancomycin HCl (Vancomycin Oral Syringe) 250 mg Q6 PO Last administered on 17:15; Admin Dose 250 MG; Start 09/26/16 at 18:00; Status Future Hold Lactobacillus Acidoph/Bulgaricus (Floranex) 1 tab TID PO Last administered on 13:22; Admin Dose 1 TAB; Start 09/26/16 at 21:00; Status Future Hold Atorvastatin Calcium (Lipitor) 20 mg QHS GTB Last administered on 10/05/16 21: 42; Admin Dose 20 MG; Start 09/28/16 at 21:00; Status Future Hold Finasteride (Proscar) 5 mg DAILY GTB Last administered on 10/06/16 09:12; Admin Dose 5 MG; Start 09/29/16 at 09:00; Status Future Hold Multivitamins Therapeutic (Theragran) 1 tab DAILY GTB Last administered on 09:12; Admin Dose 1 TAB; Start 09/29/16 at 09:00; Status Future Hold Zinc Sulfate (Zinc Sulfate) 220 mg DAILY NGT Last administered on 10/06/16 09: 13; Admin Dose 220 MG; Start 09/29/16 at 09:00; Status Future Hold Insulin Aspart (Novolog Insulin Pen) NOVOLOG *MILD* ALGORI... Q6 SC ; Start at 18:00 Ondansetron HCl (Zofran Inj) 4 mg Q6H PRN IV NAUSEA AND/OR VOMITING Last administered on 10/05/16 17:42; Admin Dose 4 MG; Start 09/29/16 at 07:30 Heparin Sodium (Porcine) (Heparin (5000 Units/0.5 ml)) 5,000 unit BID SC Last administered on 10/07/16 21:36; Admin Dose 5,000 UNIT; Start 09/29/16 at 09:00 Acetaminophen 650 mg 650 mg Q6H PRN GTB PAIN AND OR ELEVATED TEMP Last administered on 10/04/16 21:27; Admin Dose 650 MG; Start 10/02/16 at 08:00 Metronidazole (Flagyl 500 Mg (Pmx)) 100 ml @ 100 mls/hr Q8 IVPB Last administered on 10/08/16 06:09; Admin Dose 100 MLS/HR; Start 10/02/16 at 14:00 Midodrine (Proamatine) 10 mg TID@,13,17 PO Last administered on 10/06/16 17: 15; Admin Dose 10 MG; Start 10/06/16 at 01:00; Status Future Hold Mupirocin 1 applic 1 applic BID TOP Last administered on 10/07/16 21:33; Admin Dose 1 APPLIC; Start 10/06/16 at 21:00 Sodium Bicarbonate 100 meq/Dextrose 1,100 ml @ 80 mls/hr [id number] IV Last administered on 10/07/16 21:37; Admin Dose 80 MLS/HR; Start 10/06/16 at 11:00 Meropenem 100 ml @ 200 mls/hr Q12 IVPB Last administered on 10/07/16 21:33; Admin Dose 200 MLS/HR; Start 10/06/16 at 14:00 Fluconazole/ Sodium Chloride 50 ml @ 50 mls/hr Q24H IVPB Last administered on 14:39; Admin Dose 50 MLS/HR; Start 10/06/16 at 13:30 Norepinephrine 16 mg/Dextrose 500 ml @ 1.87 mls/hr TITRATE IV Last administered on 10/07/16 14:42; Admin Dose 9.37 MLS/HR; Start 10/06/16 at 16:30 Linezolid (Zyvox 600mg/D5W (Pmx)) 300 ml @ 300 mls/hr Q12 IVPB Last administered on 10/07/16 21:33; Admin Dose 300 MLS/HR; Start 10/06/16 at 21:00 Levothyroxine Sodium (Synthroid Iv) 12.5 mcg DAILY@06 IV Last administered on 06:08; Admin Dose 12.5 MCG; Start 10/07/16 at 06:00 Metoclopramide HCl (Reglan) 5 mg Q8 IV Last administered on 10/08/16t 06:09; Admin Dose 5 MG; Start 10/06/16 at 22:00 BIGG HEWITT NP Oct 08, 2016 08:45
[2016-10-08] MEDS ORDERED: MAGNESIUM SULFATE 2 GM/50 ML 50 ML IVPB ONE (09:00)
[2016-10-08] MEDS: MUPIROCIN 2% 22 GM OINT TOP SCH ×2 (09:19→22:00)
[2016-10-08] MEDS: ARTIFICIAL TEARS 15 ML OPH BOTH EYES SCH ×3 (09:20→21:58)
[2016-10-08] MEDS: MEROPENEM 500 MG/100 ML (PMX) 100 ML IVPB SCH ×2 (09:23→21:00)
[2016-10-08] MEDS: HEPARIN 5,000 UNIT/0.5 ML VIAL SC SCH ×2 (09:23→22:22)
[2016-10-08] MEDS ORDERED: POTASSIUM CHLORIDE 30 MEQ in DEXTROSE 5% 250 ML IVPB ONE (09:30)
--- NOTE | 2016-10-08 09:36 | CONS ---
Date/Time of Note Date/Time of Note DATE: 10/08/16 TIME: 09:33 Assessment/Plan Assessment/Plan Additional Assessment/Plan Ventilator settings; AC of 16, tidal volume of 5, PEEP of 5, 30% FiO2. Patient is on Levophed at 6 mics per minute. Assessment recommendations; 1. Patient admitted for severe sepsis requiring pressor support. 2. History of renal insufficiency. 3. Hypernatremia. 4. Status post G-tube and tracheostomy. 5. Improving white cell count. Continue current treatment. Overall prognosis remains poor. Consultation Date/Type/Reason Admit Date/Time Sep 24, 2016 at 03:19 Initial Consult Date 09/24/16 Type of Consultation: Pulmonary/critical care Referring Provider: ROULA DEL TORO 24 HR Interval Summary Free Text/Dictation Patient condition remains critical. Still requiring full ventilator support. As well as pressor support with Levophed. Exam; elderly male, on ventilator via tracheostomy essentially unresponsive. Currently in no distress. Exam/Review of Systems Vital Signs Vitals Vital Signs Date Time Temp Pulse Resp B/P Pulse Ox O2 Delivery O2 Flow Rate FiO2 10/08/16 06:30 115 20 69/43 100 10/08/16 06:00 Mechanical Ventilator 10/08/16 05:39 30 10/08/16 04:00 99.8 Intake and Output 10/07/16 10/07/16 10/08/16 15:00 23:00 07:00 Intake Total 2373.09 ml 1352.46 ml 796.21 ml Output Total 0 ml 125 ml 1300 ml Balance 2373.09 ml 1227.46 ml -503.79 ml Exam H EENT exam; supple neck, no JVD. No lymphadenopathy. Midline trachea. No thyromegaly. Tracheostomy in place with clean insertion site. Pupils are small bilaterally. Patient has a multiple carious teeth. Chest examination ND: Diminished breath sound bilaterally. S1-S2 audible, no murmurs. Regular rhythm. Abdomen exam is; soft, G-tube in place. Nondistended. No organomegaly. Bowel sounds audible. Extremity exam is; no peripheral edema. 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 Has multiple contractions involving all 4 extremities. Results Result Diagram: 10/08/16 0600 10/08/16 0600 Results 24 hrs Laboratory Tests Test 10/07/16 11:46 10/07/16 17:27 10/08/16 00:15 10/08/16 00:20 Bedside Glucose 90 79 91 Lactic Acid Level 5.0 *H Test 10/08/16 06:00 10/08/16 06:08 10/08/16 07:00 White Blood Count 26.0 #H Red Blood Count 3.48 L Hemoglobin 8.7 L Hematocrit 29.1 L Mean Corpuscular Volume 83.6 Mean Corpuscular Hemoglobin 25.0 L Mean Corpuscular Hemoglobin Concent 29.9 L Red Cell Distribution Width 20.1 H Platelet Count 433 #H Mean Platelet Volume 11.0 H Sodium Level 138 Potassium Level 3.3 L Chloride Level 105 Carbon Dioxide Level 17 L Anion Gap 19 H Blood Urea Nitrogen 58 H Creatinine 2.49 H Glucose Level 73 Lactic Acid Level 4.9 *H Calcium Level 7.5 L Phosphorus Level 6.2 H Magnesium Level 1.6 L Bedside Glucose 83 Blood Gas Specimen Source Blood arterial Arterial Blood Date Drawn 10/08/2016 7:35:23 AM Arterial Blood pH (Temp corrected) 7.452 H Arterial Blood pCO2 (Temp correct) 24.3 L Arterial Blood pO2 (Temp corrected) 100.4 H Arterial Blood HCO3 16.6 L Arterial Blood Base Excess -6.1 L Arterial Blood Oxygen Saturation 97.5 Ki Test ACCEPTAB Arterial Blood Gas Puncture Site Right Radial Arterial Blood Carboxyhemoglobin 0.3 Arterial Blood Methemoglobin 0.5 Blood Gas A-a O2 Differential 85.0 H Oxyhemoglobin Percent 96.7 Total Hemoglobin 9.7 L Blood Gas Temperature 37.0 Blood Gas Respiration Rate 16.0 Blood Gas Actual Respiration Rate 32 Blood Gas Modality VENT - AC FiO2 30.0 Blood Gas Tidal Volume 500.0 Blood Gas Low PEEP Setting 5.0 Blood Gas Notified Whom JLD Blood Gas Notified Time 10/08/2016 7:52:40 AM Medications Medications Current Medications Acetaminophen (Tylenol Supp) 650 mg Q4H PRN [place] PAIN LEVEL 1-3 OR FEVER; Start 09/24/16 at 03:00 Eye Lubricant (Artificial Tears Oph) 1 drop TID BOTH EYES Last administered on 10/08/16t 09:20; Admin Dose 1 DROP; Start 09/24/16 at 09:00 Sodium Hypochlorite (Dakin'S (1/4 Strength)) 1 applic BID IRR Last administered on 10/07/16 21:33; Admin Dose 1 APPLIC; Start 09/24/16 at 21:00 Pantoprazole (Protonix Iv) 40 mg BID@06,18 IV Last administered on 10/08/16 06: 08; Admin Dose 40 MG; Start 09/24/16 at 18:00 Collagenase (Santyl) 1 applic DAILY TOP Last administered on 10/07/16 09:43; Admin Dose 1 APPLIC; Start 09/24/16 at 20:30 Miscellaneous Information 1 ea NOTE XX ; Start 09/24/16 at 21:00 Glucose (Glutose) 15 gm Q15M PRN PO DECREASED GLUCOSE; Start 09/24/16 at 21:00 Glucose (Glutose) 22.5 gm Q15M PRN PO DECREASED GLUCOSE; Start 09/24/16 at 21: 00 Dextrose (D50w Syringe) 25 ml Q15M PRN IV DECREASED GLUCOSE; Start 09/24/16 at 21:00 Dextrose (D50w Syringe) 50 ml Q15M PRN IV DECREASED GLUCOSE; Start 09/24/16 at 21:00 Glucagon (Glucagen) 1 mg Q15M PRN IM DECREASED GLUCOSE; Start 09/24/16 at 21:00 Glucose 15 gm 15 gm Q15M PRN BUCCAL DECREASED GLUCOSE; Start 09/24/16 at 21:00 Acetaminophen (Ofirmev 1000mg/ 100ml Iv) 100 ml @ 400 mls/hr Q6H PRN IVPB FEVER Last administered on 10/07/16 17:14; Admin Dose 400 MLS/HR; Start at 22:00 Vancomycin HCl (Vancomycin Oral Syringe) 250 mg Q6 PO Last administered on 17:15; Admin Dose 250 MG; Start 09/26/16 at 18:00; Status Future Hold Lactobacillus Acidoph/Bulgaricus (Floranex) 1 tab TID PO Last administered on 13:22; Admin Dose 1 TAB; Start 09/26/16 at 21:00; Status Future Hold Atorvastatin Calcium (Lipitor) 20 mg QHS GTB Last administered on 10/05/16 21: 42; Admin Dose 20 MG; Start 09/28/16 at 21:00; Status Future Hold Finasteride (Proscar) 5 mg DAILY GTB Last administered on 10/06/16 09:12; Admin Dose 5 MG; Start 09/29/16 at 09:00; Status Future Hold Multivitamins Therapeutic (Theragran) 1 tab DAILY GTB Last administered on 09:12; Admin Dose 1 TAB; Start 09/29/16 at 09:00; Status Future Hold Zinc Sulfate (Zinc Sulfate) 220 mg DAILY NGT Last administered on 10/06/16 09: 13; Admin Dose 220 MG; Start 09/29/16 at 09:00; Status Future Hold Insulin Aspart (Novolog Insulin Pen) NOVOLOG *MILD* ALGORI... Q6 SC ; Start at 18:00 Ondansetron HCl (Zofran Inj) 4 mg Q6H PRN IV NAUSEA AND/OR VOMITING Last administered on 10/05/16 17:42; Admin Dose 4 MG; Start 09/29/16 at 07:30 Heparin Sodium (Porcine) (Heparin (5000 Units/0.5 ml)) 5,000 unit BID SC Last administered on 10/08/16 09:23; Admin Dose 5,000 UNIT; Start 09/29/16 at 09:00 Acetaminophen 650 mg 650 mg Q6H PRN GTB PAIN AND OR ELEVATED TEMP Last administered on 10/04/16 21:27; Admin Dose 650 MG; Start 10/02/16 at 08:00 Metronidazole (Flagyl 500 Mg (Pmx)) 100 ml @ 100 mls/hr Q8 IVPB Last administered on 10/08/16 06:09; Admin Dose 100 MLS/HR; Start 10/02/16 at 14:00 Midodrine (Proamatine) 10 mg TID@,13,17 PO Last administered on 10/06/16 17: 15; Admin Dose 10 MG; Start 10/06/16 at 01:00; Status Future Hold Mupirocin 1 applic 1 applic BID TOP Last administered on 10/08/16 09:19; Admin Dose 1 APPLIC; Start 10/06/16 at 21:00 Sodium Bicarbonate 100 meq/Dextrose 1,100 ml @ 80 mls/hr [id number] IV Last administered on 10/07/16 21:37; Admin Dose 80 MLS/HR; Start 10/06/16 at 11:00 Meropenem 100 ml @ 200 mls/hr Q12 IVPB Last administered on 10/08/16 09:23; Admin Dose 200 MLS/HR; Start 10/06/16 at 14:00 Fluconazole/ Sodium Chloride 50 ml @ 50 mls/hr Q24H IVPB Last administered on 14:39; Admin Dose 50 MLS/HR; Start 10/06/16 at 13:30 Norepinephrine 16 mg/Dextrose 500 ml @ 1.87 mls/hr TITRATE IV Last administered on 10/07/16 14:42; Admin Dose 9.37 MLS/HR; Start 10/06/16 at 16:30 Linezolid (Zyvox 600mg/D5W (Pmx)) 300 ml @ 300 mls/hr Q12 IVPB Last administered on 10/07/16 21:33; Admin Dose 300 MLS/HR; Start 10/06/16 at 21:00 Levothyroxine Sodium (Synthroid Iv) 12.5 mcg DAILY@06 IV Last administered on 06:08; Admin Dose 12.5 MCG; Start 10/07/16 at 06:00 Metoclopramide HCl 5 mg 5 mg Q8 IV Last administered on 10/08/16 06:09; Admin Dose 5 MG; Start 10/06/16 at 22:00 Magnesium Sulfate 50 ml @ 25 mls/hr ONCE ONCE IVPB Last administered on 09:20; Admin Dose 25 MLS/HR; Start 10/08/16 at 09:00; Stop 10/08/16 at 10:59 Potassium Chloride/Dextrose (KCl/D5W) 265 ml @ 88.333 mls/ hr ONCE ONCE IVPB ; Start 10/08/16 at 09:30; Stop 10/08/16 at 12:29 MAIN SALTER Oct 08, 2016 09:35
[2016-10-08] MEDS: LINEZOLID 600 MG/D5W (PMX) 300 ML IVPB SCH ×2 (09:39→22:07)
--- NOTE | 2016-10-08 10:35 | CONS ---
Date/Time of Note Date/Time of Note DATE: 10/08/16 TIME: 10:35 Assessment/Plan Assessment/Plan Chief Complaint/Hosp Course ANEMIA - NEAR- MICROCYTIC WITH INCREASED RDW DROP H/H DURING HOSPITALIZATION + ACD TRANSFUSE PRBC TO KEEP HB MORE THAN 8 TRANSFUSE NEEDED GI F-UP Stool OB, negative Monitor H&H every 8 hours, transfuse 2 units for hemoglobin less than 8 Continue PPI drips EGD PER Suchov LEUKOCYTOSIS- REACTIVE CONT ATB FOR SEPSIS THROMBOCYTOSIS REACTIVE SHOULD IMPROVE WITH RESOLUTION OF SEPSIS Severe sepsis with septic shock 2/2 Decub ulcers and/or UTI and/or PNA: stable, off pressor support Severe hypernatremic dehydration Acute renal failure 2/2 ATN from dehydration UTI Multifocal pneumonia Encephalopathy ?acute versus acute on chronic (baseline unknown) Hypokalemia Problems: Consultation Date/Type/Reason Admit Date/Time Sep 24, 2016 at 03:19 Initial Consult Date 09/24/16 Type of Consultation: HEMEON Referring Provider: ROULA DEL TORO 24 HR Interval Summary Free Text/Dictation all noted count reviewed no bleeding Exam/Review of Systems Vital Signs Vitals Vital Signs Date Time Temp Pulse Resp B/P Pulse Ox O2 Delivery O2 Flow Rate FiO2 10/08/16 10:00 115 29 94/44 100 10/08/16 09:30 Mechanical Ventilator 10/08/16 09:00 30 10/08/16 07:15 99.8 Intake and Output 10/07/16 10/07/16 10/08/16 15:00 23:00 07:00 Intake Total 2373.09 ml 1352.46 ml 796.21 ml Output Total 0 ml 125 ml 1300 ml Balance 2373.09 ml 1227.46 ml -503.79 ml Exam Constitutional: No alert, No oriented Psych: No nl mood/affect Head: atraumatic, normocephalic Eyes: nl conjunctiva, No EOMI, No icteric ENMT: mucosa pink and moist, nl external ears & nose Neck: jvd, other (Trach in place), No non-tender, No supple Respiratory: No congested cough, No labored breathing Cardiovascular: No regular rate and rhythm Gastrointestinal: non-tender, other (PEG in place), soft, No rebound or guarding Musculoskeletal: No joint tenderness, No nl extremities to inspection, No nl gait and stance Extremities: No calf tenderness, No cyanosis Neurological: No nl mental status, No nl speech, No nl strength Skin: rash or lesions (Multiple decubitus ulcerations with debris, necrotic tissue, deep tissue injury), No diaphoresis, No nl turgor Lymph: nontender Results Result Diagram: 10/08/16 0600 10/08/16 0600 Results 24 hrs Laboratory Tests Test 10/07/16 11:46 10/07/16 17:27 10/08/16 00:15 10/08/16 00:20 Bedside Glucose 90 79 91 Lactic Acid Level 5.0 *H Test 10/08/16 06:00 10/08/16 06:08 10/08/16 07:00 White Blood Count 26.0 #H Red Blood Count 3.48 L Hemoglobin 8.7 L Hematocrit 29.1 L Mean Corpuscular Volume 83.6 Mean Corpuscular Hemoglobin 25.0 L Mean Corpuscular Hemoglobin Concent 29.9 L Red Cell Distribution Width 20.1 H Platelet Count 433 #H Mean Platelet Volume 11.0 H Sodium Level 138 Potassium Level 3.3 L Chloride Level 105 Carbon Dioxide Level 17 L Anion Gap 19 H Blood Urea Nitrogen 58 H Creatinine 2.49 H Glucose Level 73 Lactic Acid Level 4.9 *H Calcium Level 7.5 L Phosphorus Level 6.2 H Magnesium Level 1.6 L Bedside Glucose 83 Blood Gas Specimen Source Blood arterial Arterial Blood Date Drawn 10/08/2016 7:35:23 AM Arterial Blood pH (Temp corrected) 7.452 H Arterial Blood pCO2 (Temp correct) 24.3 L Arterial Blood pO2 (Temp corrected) 100.4 H Arterial Blood HCO3 16.6 L Arterial Blood Base Excess -6.1 L Arterial Blood Oxygen Saturation 97.5 Ki Test ACCEPTAB Arterial Blood Gas Puncture Site Right Radial Arterial Blood Carboxyhemoglobin 0.3 Arterial Blood Methemoglobin 0.5 Blood Gas A-a O2 Differential 85.0 H Oxyhemoglobin Percent 96.7 Total Hemoglobin 9.7 L Blood Gas Temperature 37.0 Blood Gas Respiration Rate 16.0 Blood Gas Actual Respiration Rate 32 Blood Gas Modality VENT - AC FiO2 30.0 Blood Gas Tidal Volume 500.0 Blood Gas Low PEEP Setting 5.0 Blood Gas Notified Whom JLD Blood Gas Notified Time 10/08/2016 7:52:40 AM Medications Medications Current Medications Acetaminophen (Tylenol Supp) [address] PAIN LEVEL 1-3 OR FEVER; Start 09/24/16 at 03:00 Eye Lubricant (Artificial Tears Oph) 1 drop TID BOTH EYES Last administered on 10/08/16 09:20; Admin Dose 1 DROP; Start 09/24/16 at 09:00 Sodium Hypochlorite (Dakin'S (1/4 Strength)) 1 applic BID IRR Last administered on 10/07/16 21:33; Admin Dose 1 APPLIC; Start 09/24/16 at 21:00 Pantoprazole (Protonix Iv) 40 mg BID@06,18 IV Last administered on 10/08/16 06: 08; Admin Dose 40 MG; Start 09/24/16 at 18:00 Collagenase (Santyl) 1 applic DAILY TOP Last administered on 10/07/16 09:43; Admin Dose 1 APPLIC; Start 09/24/16 at 20:30 Miscellaneous Information 1 ea NOTE XX ; Start 09/24/16 at 21:00 Glucose (Glutose) 15 gm Q15M PRN PO DECREASED GLUCOSE; Start 09/24/16 at 21:00 Glucose (Glutose) 22.5 gm Q15M PRN PO DECREASED GLUCOSE; Start 09/24/16 at 21: 00 Dextrose (D50w Syringe) 25 ml Q15M PRN IV DECREASED GLUCOSE; Start 09/24/16 at 21:00 Dextrose (D50w Syringe) 50 ml Q15M PRN IV DECREASED GLUCOSE; Start 09/24/16 at 21:00 Glucagon (Glucagen) 1 mg Q15M PRN IM DECREASED GLUCOSE; Start 09/24/16 at 21:00 Glucose 15 gm 15 gm Q15M PRN BUCCAL DECREASED GLUCOSE; Start 09/24/16 at 21:00 Acetaminophen (Ofirmev 1000mg/ 100ml Iv) 100 ml @ 400 mls/hr Q6H PRN IVPB FEVER Last administered on 10/07/16 17:14; Admin Dose 400 MLS/HR; Start at 22:00 Vancomycin HCl (Vancomycin Oral Syringe) 250 mg Q6 PO Last administered on 17:15; Admin Dose 250 MG; Start 09/26/16 at 18:00; Status Future Hold Lactobacillus Acidoph/Bulgaricus (Floranex) 1 tab TID PO Last administered on 13:22; Admin Dose 1 TAB; Start 09/26/16 at 21:00; Status Future Hold Atorvastatin Calcium (Lipitor) 20 mg QHS GTB Last administered on 10/05/16 21: 42; Admin Dose 20 MG; Start 09/28/16 at 21:00; Status Future Hold Finasteride (Proscar) 5 mg DAILY GTB Last administered on 10/06/16 09:12; Admin Dose 5 MG; Start 09/29/16 at 09:00; Status Future Hold Multivitamins Therapeutic (Theragran) 1 tab DAILY GTB Last administered on 09:12; Admin Dose 1 TAB; Start 09/29/16 at 09:00; Status Future Hold Zinc Sulfate (Zinc Sulfate) 220 mg DAILY NGT Last administered on 10/06/16 09: 13; Admin Dose 220 MG; Start 09/29/16 at 09:00; Status Future Hold Insulin Aspart (Novolog Insulin Pen) NOVOLOG *MILD* ALGORI... Q6 SC ; Start at 18:00 Ondansetron HCl (Zofran Inj) 4 mg Q6H PRN IV NAUSEA AND/OR VOMITING Last administered on 10/05/16 17:42; Admin Dose 4 MG; Start 09/29/16 at 07:30 Heparin Sodium (Porcine) (Heparin (5000 Units/0.5 ml)) 5,000 unit BID SC Last administered on 10/08/16 09:23; Admin Dose 5,000 UNIT; Start 09/29/16 at 09:00 Acetaminophen 650 mg 650 mg Q6H PRN GTB PAIN AND OR ELEVATED TEMP Last administered on 10/04/16 21:27; Admin Dose 650 MG; Start 10/02/16 at 08:00 Metronidazole (Flagyl 500 Mg (Pmx)) 100 ml @ 100 mls/hr Q8 IVPB Last administered on 10/08/16 06:09; Admin Dose 100 MLS/HR; Start 10/02/16 at 14:00 Midodrine (Proamatine) 10 mg TID@,13,17 PO Last administered on 10/06/16 17: 15; Admin Dose 10 MG; Start 10/06/16 at 01:00; Status Future Hold Mupirocin 1 applic 1 applic BID TOP Last administered on 10/08/16 09:19; Admin Dose 1 APPLIC; Start 10/06/16 at 21:00 Sodium Bicarbonate 100 meq/Dextrose 1,100 ml @ 80 mls/hr [id number] IV Last administered on 10/07/16 21:37; Admin Dose 80 MLS/HR; Start 10/06/16 at 11:00 Meropenem 100 ml @ 200 mls/hr Q12 IVPB Last administered on 10/08/16 09:23; Admin Dose 200 MLS/HR; Start 10/06/16 at 14:00 Fluconazole/ Sodium Chloride 50 ml @ 50 mls/hr Q24H IVPB Last administered on 14:39; Admin Dose 50 MLS/HR; Start 10/06/16 at 13:30 Norepinephrine 16 mg/Dextrose 500 ml @ 1.87 mls/hr TITRATE IV Last administered on 10/07/16 14:42; Admin Dose 9.37 MLS/HR; Start 10/06/16 at 16:30 Linezolid (Zyvox 600mg/D5W (Pmx)) 300 ml @ 300 mls/hr Q12 IVPB Last administered on 10/08/16 09:39; Admin Dose 300 MLS/HR; Start 10/06/16 at 21:00 Levothyroxine Sodium (Synthroid Iv) 12.5 mcg DAILY@06 IV Last administered on 06:08; Admin Dose 12.5 MCG; Start 10/07/16 at 06:00 Metoclopramide HCl 5 mg 5 mg Q8 IV Last administered on 10/08/16 06:09; Admin Dose 5 MG; Start 10/06/16 at 22:00 Magnesium Sulfate 50 ml @ 25 mls/hr ONCE ONCE IVPB Last administered on 09:20; Admin Dose 25 MLS/HR; Start 10/08/16 at 09:00; Stop 10/08/16 at 10:59 Potassium Chloride/Dextrose (KCl/D5W) 265 ml @ 88.333 mls/ hr ONCE ONCE IVPB ; Start 10/08/16 at 09:30; Stop 10/08/16 at 12:29 SCOTT RODRIGUES MD Oct 08, 2016 10:35
--- NOTE | 2016-10-08 10:47 | CONS ---
Date/Time of Note Date/Time of Note DATE: 10/08/16 TIME: 10:42 Assessment/Plan Assessment/Plan Additional Assessment/Plan 1. Acute kidney injury on chronic kidney disease. due to ATN 2. septic shock on levophed 3. severe metabolic acidosis 5. History of chronic respiratory failure, status post tracheostomy, on ventilator. 6. History of G-tube. 7. Poor mental status due to the previous cerebrovascular accident. 8. History of dementia. 9. History of hypertension. PLAN: on levophed gtt, now BP more stable critically ill good urine output yesterday, Na still high, K low, continue bicarbonate drip now, Monitor Electrolytes and Cr palliative care planning for meeting will follow up Consultation Date/Type/Reason Admit Date/Time Sep 24, 2016 at 03:19 Initial Consult Date 09/24/16 Type of Consultation: NEPHROLOGY Reason for Consultation acute kidney injury,hypernatremia Referring Provider: ROULA DEL TORO 24 HR Interval Summary Free Text/Dictation no acute events, remains stable on Ventilator, , K low, Na still high Exam/Review of Systems Vital Signs Vitals Vital Signs Date Time Temp Pulse Resp B/P Pulse Ox O2 Delivery O2 Flow Rate FiO2 10/08/16 10:00 115 29 94/44 100 10/08/16 09:30 Mechanical Ventilator 10/08/16 09:00 30 10/08/16 07:15 99.8 Intake and Output 10/07/16 10/07/16 10/08/16 15:00 23:00 07:00 Intake Total 2373.09 ml 1352.46 ml 796.21 ml Output Total 0 ml 125 ml 1300 ml Balance 2373.09 ml 1227.46 ml -503.79 ml Exam GENERAL: This is a chronically ill-appearing, elderly man who is awake, noncommunicative, in no distress. HEENT: Head atraumatic, normocephalic. Sclerae anicteric. Buccal mucosa dry. NECK: Supple. Tracheostomy present. CHEST: Rise symmetrical. Breath sounds diminished to bases. HEART: S1, S2. ABDOMEN: Soft, bowel sounds present. EXTREMITIES: Without cyanosis. Trace edema. Results Result Diagram: 10/08/16 0600 10/08/16 0600 Results 24 hrs Laboratory Tests Test 10/07/16 11:46 10/07/16 17:27 10/08/16 00:15 10/08/16 00:20 Bedside Glucose 90 79 91 Lactic Acid Level 5.0 *H Test 10/08/16 06:00 10/08/16 06:08 10/08/16 07:00 White Blood Count 26.0 #H Red Blood Count 3.48 L Hemoglobin 8.7 L Hematocrit 29.1 L Mean Corpuscular Volume 83.6 Mean Corpuscular Hemoglobin 25.0 L Mean Corpuscular Hemoglobin Concent 29.9 L Red Cell Distribution Width 20.1 H Platelet Count 433 #H Mean Platelet Volume 11.0 H Sodium Level 138 Potassium Level 3.3 L Chloride Level 105 Carbon Dioxide Level 17 L Anion Gap 19 H Blood Urea Nitrogen 58 H Creatinine 2.49 H Glucose Level 73 Lactic Acid Level 4.9 *H Calcium Level 7.5 L Phosphorus Level 6.2 H Magnesium Level 1.6 L Bedside Glucose 83 Blood Gas Specimen Source Blood arterial Arterial Blood Date Drawn 10/08/2016 7:35:23 AM Arterial Blood pH (Temp corrected) 7.452 H Arterial Blood pCO2 (Temp correct) 24.3 L Arterial Blood pO2 (Temp corrected) 100.4 H Arterial Blood HCO3 16.6 L Arterial Blood Base Excess -6.1 L Arterial Blood Oxygen Saturation 97.5 Ki Test ACCEPTAB Arterial Blood Gas Puncture Site Right Radial Arterial Blood Carboxyhemoglobin 0.3 Arterial Blood Methemoglobin 0.5 Blood Gas A-a O2 Differential 85.0 H Oxyhemoglobin Percent 96.7 Total Hemoglobin 9.7 L Blood Gas Temperature 37.0 Blood Gas Respiration Rate 16.0 Blood Gas Actual Respiration Rate 32 Blood Gas Modality VENT - AC FiO2 30.0 Blood Gas Tidal Volume 500.0 Blood Gas Low PEEP Setting 5.0 Blood Gas Notified Whom JLD Blood Gas Notified Time 10/08/2016 7:52:40 AM Medications Medications Current Medications Acetaminophen (Tylenol Supp) 650 mg Q4H PRN [place] PAIN LEVEL 1-3 OR FEVER; Start 09/24/16 at 03:00 Eye Lubricant (Artificial Tears Oph) 1 drop TID BOTH EYES Last administered on 10/08/16 09:20; Admin Dose 1 DROP; Start 09/24/16 at 09:00 Sodium Hypochlorite (Dakin'S (1/4 Strength)) 1 applic BID IRR Last administered on 10/07/16 21:33; Admin Dose 1 APPLIC; Start 09/24/16 at 21:00 Pantoprazole (Protonix Iv) 40 mg BID@06,18 IV Last administered on 10/08/16 06: 08; Admin Dose 40 MG; Start 09/24/16 at 18:00 Collagenase (Santyl) 1 applic DAILY TOP Last administered on 10/07/16 09:43; Admin Dose 1 APPLIC; Start 09/24/16 at 20:30 Miscellaneous Information 1 ea NOTE XX ; Start 09/24/16 at 21:00 Glucose (Glutose) 15 gm Q15M PRN PO DECREASED GLUCOSE; Start 09/24/16 at 21:00 Glucose (Glutose) 22.5 gm Q15M PRN PO DECREASED GLUCOSE; Start 09/24/16 at 21: 00 Dextrose (D50w Syringe) 25 ml Q15M PRN IV DECREASED GLUCOSE; Start 09/24/16 at 21:00 Dextrose (D50w Syringe) 50 ml Q15M PRN IV DECREASED GLUCOSE; Start 09/24/16 at 21:00 Glucagon (Glucagen) 1 mg Q15M PRN IM DECREASED GLUCOSE; Start 09/24/16 at 21:00 Glucose 15 gm 15 gm Q15M PRN BUCCAL DECREASED GLUCOSE; Start 09/24/16 at 21:00 Acetaminophen (Ofirmev 1000mg/ 100ml Iv) 100 ml @ 400 mls/hr Q6H PRN IVPB FEVER Last administered on 10/07/16 17:14; Admin Dose 400 MLS/HR; Start at 22:00 Vancomycin HCl (Vancomycin Oral Syringe) 250 mg Q6 PO Last administered on 17:15; Admin Dose 250 MG; Start 09/26/16 at 18:00; Status Future Hold Lactobacillus Acidoph/Bulgaricus (Floranex) 1 tab TID PO Last administered on 13:22; Admin Dose 1 TAB; Start 09/26/16 at 21:00; Status Future Hold Atorvastatin Calcium (Lipitor) 20 mg QHS GTB Last administered on 10/05/16 21: 42; Admin Dose 20 MG; Start 09/28/16 at 21:00; Status Future Hold Finasteride (Proscar) 5 mg DAILY GTB Last administered on 10/06/16 09:12; Admin Dose 5 MG; Start 09/29/16 at 09:00; Status Future Hold Multivitamins Therapeutic (Theragran) 1 tab DAILY GTB Last administered on 09:12; Admin Dose 1 TAB; Start 09/29/16 at 09:00; Status Future Hold Zinc Sulfate (Zinc Sulfate) 220 mg DAILY NGT Last administered on 10/06/16 09: 13; Admin Dose 220 MG; Start 09/29/16 at 09:00; Status Future Hold Insulin Aspart (Novolog Insulin Pen) NOVOLOG *MILD* ALGORI... Q6 SC ; Start at 18:00 Ondansetron HCl (Zofran Inj) 4 mg Q6H PRN IV NAUSEA AND/OR VOMITING Last administered on 10/05/16 17:42; Admin Dose 4 MG; Start 09/29/16 at 07:30 Heparin Sodium (Porcine) (Heparin (5000 Units/0.5 ml)) 5,000 unit BID SC Last administered on 10/08/16 09:23; Admin Dose 5,000 UNIT; Start 09/29/16 at 09:00 Acetaminophen 650 mg 650 mg Q6H PRN GTB PAIN AND OR ELEVATED TEMP Last administered on 10/04/16 21:27; Admin Dose 650 MG; Start 10/02/16 at 08:00 Metronidazole (Flagyl 500 Mg (Pmx)) 100 ml @ 100 mls/hr Q8 IVPB Last administered on 10/08/16 06:09; Admin Dose 100 MLS/HR; Start 10/02/16 at 14:00 Midodrine (Proamatine) 10 mg TID@,,17 PO Last administered on 10/06/16 17: 15; Admin Dose 10 MG; Start 10/06/16 at 01:00; Status Future Hold Mupirocin 1 applic 1 applic BID TOP Last administered on 10/08/16 09:19; Admin Dose 1 APPLIC; Start 10/06/16 at 21:00 Sodium Bicarbonate 100 meq/Dextrose 1,100 ml @ 80 mls/hr [id number] IV Last administered on 10/07/16 21:37; Admin Dose 80 MLS/HR; Start 10/06/16 at 11:00 Meropenem 100 ml @ 200 mls/hr Q12 IVPB Last administered on 10/08/16 09:23; Admin Dose 200 MLS/HR; Start 10/06/16 at 14:00 Fluconazole/ Sodium Chloride 50 ml @ 50 mls/hr Q24H IVPB Last administered on 14:39; Admin Dose 50 MLS/HR; Start 10/06/16 at 13:30 Norepinephrine 16 mg/Dextrose 500 ml @ 1.87 mls/hr TITRATE IV Last administered on 10/07/16 14:42; Admin Dose 9.37 MLS/HR; Start 10/06/16 at 16:30 Linezolid (Zyvox 600mg/D5W (Pmx)) 300 ml @ 300 mls/hr Q12 IVPB Last administered on 10/08/16 09:39; Admin Dose 300 MLS/HR; Start 10/06/16 at 21:00 Levothyroxine Sodium (Synthroid Iv) 12.5 mcg DAILY@06 IV Last administered on 06:08; Admin Dose 12.5 MCG; Start 10/07/16 at 06:00 Metoclopramide HCl 5 mg 5 mg Q8 IV Last administered on 10/08/16 06:09; Admin Dose 5 MG; Start 10/06/16 at 22:00 Magnesium Sulfate 50 ml @ 25 mls/hr ONCE ONCE IVPB Last administered on 09:20; Admin Dose 25 MLS/HR; Start 10/08/16 at 09:00; Stop 10/08/16 at 10:59 Potassium Chloride/Dextrose (KCl/D5W) 265 ml @ 88.333 mls/ hr ONCE ONCE IVPB ; Start 10/08/16 at 09:30; Stop 10/08/16 at 12:29 MAGGIE DINERO MD Oct 08, 2016 10:47
[2016-10-08] MEDS: COLLAGENASE 30 GM TUBE TOP SCH (10:52)
[2016-10-08] MEDS: SODIUM HYPOCHLORITE 0.125% 473 ML BTL IRR SCH ×2 (10:52→21:58)
[2016-10-08 11:18] LABS: BASOPHIL # 0.5 10^3/ul (0.0-0.1); MONOCYTE # 1.3 10^3/ul (0.3-0.9); NEUTROPHIL # 19.5 10^3/ul (1.6-7.5)
--- NOTE | 2016-10-08 13:13 | PN ---
DATE: PALLIATIVE CARE PROGRESS NOTE Mr. Wise is in the intensive care unit at [facility]. His is by the bedside . We had a conversation through an chief passenger ship steward/stewardess. states that she is the primary decision maker . There are 2 other children. She does not want us to speak with him and they are not involved wit h the decision making with her. Unfortunately we did tell her that we did not expect Mr. Wise to s urvive this hospitalization, especially since she has had a catastrophic change in his clinical cond ition. She understood this. She became very tearful. I decided at that time it was not the time t o address changing his code status. She was very tearful. She was, in my opinion, unable to answer questions at this time. We will wait to support her. I will address the question with her once ag ain tomorrow. Hopefully at least she will allow us to make a code change. Dictated By: SITA OCONNOR MD, LP/ELIZABETH Conf#: [id number] DID#: [id number]
--- NOTE | 2016-10-08 13:21 | PN ---
DATE: 10/08/2016 SUBJECTIVE: No acute changes. The patient is lying comfortably in bed on pressors. VITAL SIGNS: Temperature 99.8, pulse 115, respirations 29, blood pressure 94/44, saturation 100% on vent. LABORATORY DATA: WBC today 26, H and H 8.7 and 29.1, platelets 433, neutrophils 75, bands 14, lymph s 4, monos 5. BUN 58, creatinine 2.49. MICROBIOLOGY: Repeated blood cultures remain negative. Urine culture on 10/05/2016 grew Teresita gl abrata. DIAGNOSTICS: CT of the abdomen and pelvis yesterday revealed left basilar pneumonia, small right pl eural effusion and moderate left pleural effusion. Moderate right hydronephrosis with dilated right ureter, moderate left hydroureteronephrosis, Cee catheter balloon inflated in the prostatic ureth ra inferiorly. 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 INDWELLINGS: Trach, PEG, Cee catheter, left subclavian triple catheter. ANTIMICROBIALS: The patient is on: 1. Zyvox. 2. Topical Bactroban to nares. 3. Fluconazole. 4. Merrem. 5. Flagyl. 6. He is also on oral vancomycin. 7. He is status post Colistin. PHYSICAL EXAMINATION: GENERAL: This is a chronically ill-appearing, elderly man who is in no distress. HEENT: Head atraumatic, normocephalic. Sclerae anicteric. Buccal mucosa dry. NECK: Supple. Tracheostomy present. CHEST: Rise symmetrical. Breath sounds diminished to bases. HEART: S1, S2. ABDOMEN: Soft, bowel sounds present. EXTREMITIES: Without cyanosis, bilateral edema. ASSESSMENT: 1. Severe sepsis with shock and multisystem organ failure. 2. Teresita glabrata urinary tract infection. 3. Multiple decubiti with evidence of osteomyelitis of left acetabulum. 4. Healthcare-associated pneumonia. 5. Acute renal failure, possibly secondary to Cee mis-position, Cee catheter was changed yester day by Dr. Garces. 6. Status post Escherichia coli urinary tract infection. 7. Status post Escherichia coli and Bacteroides fragilis bacteremia on admission with repeat blood cultures being negative. 8. History of Clostridium difficile and severe Pseudomembranous colitis, on empiric Flagyl and oral vancomycin. PLAN: The patient remains hemodynamically unstable. He is being followed by multiple consultants. His renal function is slightly better today. We will continue him on current antimicrobials. Foll ow recommendations of consultants. The patient is being seen by Dr. Louie in surgical consultatio n, pending debridement. Dictated By: CHRISTOPHER MCDONOUGH GUNCOTTON PACKER for YAQUELIN SMYTH/NTS Conf#: [id number] DID#: [id number]
--- NOTE | 2016-10-08 13:49 | CONS ---
Date/Time of Note Date/Time of Note DATE: 10/08/16 TIME: 13:47 Assessment/Plan Assessment/Plan Additional Assessment/Plan Severe septic shock Preserved ejection fraction Moderate aortic stenosis Respiratory failure Coronary artery disease Anemia, worsening Acute kidney injury -Titrate IV pressor to maintain SBP greater than 90 and/or map above 60, IV fluids as per nephrology colleague. Continue to hold any antihypertensives and nephrotoxic medications. Consultation Date/Type/Reason Admit Date/Time Sep 24, 2016 at 03:19 Initial Consult Date 09/24/16 Type of Consultation: cv Referring Provider: ROULA DEL TORO 24 HR Interval Summary Free Text/Dictation pt seen and examined Exam/Review of Systems Vital Signs Vitals Vital Signs Date Time Temp Pulse Resp B/P Pulse Ox O2 Delivery O2 Flow Rate FiO2 10/08/16 12:00 112 10/08/16 11:40 27 100 30 10/08/16 10:00 94/44 10/08/16 09:30 Mechanical Ventilator 10/08/16 07:15 99.8 Intake and Output 10/07/16 10/07/16 10/08/16 14:59 22:59 06:59 Intake Total 2233.72 ml 1406.21 ml 692.46 ml Output Total 0 ml 125 ml 200 ml Balance 2233.72 ml 1281.21 ml 492.46 ml Exam nad Head: normocephalic Neck: other (trach) Respiratory: other (course bs, no wheeze) Cardiovascular: other (s1s2), regular rate and rhythm Gastrointestinal: bowel sounds, non-tender, soft Extremities: edema Results Result Diagram: 10/08/16 0600 10/08/16 0600 Results 24 hrs Laboratory Tests Test 10/07/16 17:27 10/08/16 00:15 10/08/16 00:20 10/08/16 06:00 Bedside Glucose 79 91 Lactic Acid Level 5.0 *H 4.9 *H White Blood Count 26.0 #H Red Blood Count 3.48 L Hemoglobin 8.7 L Hematocrit 29.1 L Mean Corpuscular Volume 83.6 Mean Corpuscular Hemoglobin 25.0 L Mean Corpuscular Hemoglobin Concent 29.9 L Red Cell Distribution Width 20.1 H Platelet Count 433 #H Mean Platelet Volume 11.0 H Neutrophils % 75.0 Band Neutrophils % 14.0 H Lymphocytes % 4.0 L Monocytes % 5.0 Basophils % 2.0 Neutrophils # 19.5 H Lymphocytes # 1.0 Monocytes # 1.3 H Basophils # 0.5 H Sodium Level 138 Potassium Level 3.3 L Chloride Level 105 Carbon Dioxide Level 17 L Anion Gap 19 H Blood Urea Nitrogen 58 H Creatinine 2.49 H Glucose Level 73 Calcium Level 7.5 L Phosphorus Level 6.2 H Magnesium Level 1.6 L Random Cortisol 16.6 Test 10/08/16 06:08 10/08/16 07:00 10/08/16 12:08 Bedside Glucose 83 111 Blood Gas Specimen Source Blood arterial Arterial Blood Date Drawn 10/08/2016 7:35:23 AM Arterial Blood pH (Temp corrected) 7.452 H Arterial Blood pCO2 (Temp correct) 24.3 L Arterial Blood pO2 (Temp corrected) 100.4 H Arterial Blood HCO3 16.6 L Arterial Blood Base Excess -6.1 L Arterial Blood Oxygen Saturation 97.5 Ki Test ACCEPTAB Arterial Blood Gas Puncture Site Right Radial Arterial Blood Carboxyhemoglobin 0.3 Arterial Blood Methemoglobin 0.5 Blood Gas A-a O2 Differential 85.0 H Oxyhemoglobin Percent 96.7 Total Hemoglobin 9.7 L Blood Gas Temperature 37.0 Blood Gas Respiration Rate 16.0 Blood Gas Actual Respiration Rate 32 Blood Gas Modality VENT - AC FiO2 30.0 Blood Gas Tidal Volume 500.0 Blood Gas Low PEEP Setting 5.0 Blood Gas Notified Whom JLD Blood Gas Notified Time 10/08/2016 7:52:40 AM Medications Medications Current Medications Acetaminophen (Tylenol Supp) 650 mg Q4H PRN [place] PAIN LEVEL 1-3 OR FEVER; Start 09/24/16 at 03:00 Eye Lubricant (Artificial Tears Oph) 1 drop TID BOTH EYES Last administered on 10/08/16 09:20; Admin Dose 1 DROP; Start 09/24/16 at 09:00 Sodium Hypochlorite (Dakin'S (1/4 Strength)) 1 applic BID IRR Last administered on 10/08/16 10:52; Admin Dose 1 APPLIC; Start 09/24/16 at 21:00 Pantoprazole (Protonix Iv) 40 mg BID@06,18 IV Last administered on 10/08/16 06: 08; Admin Dose 40 MG; Start 09/24/16 at 18:00 Collagenase (Santyl) 1 applic DAILY TOP Last administered on 10/08/16 10:52; Admin Dose 1 APPLIC; Start 09/24/16 at 20:30 Miscellaneous Information 1 ea NOTE XX ; Start 09/24/16 at 21:00 Glucose (Glutose) 15 gm Q15M PRN PO DECREASED GLUCOSE; Start 09/24/16 at 21:00 Glucose (Glutose) 22.5 gm Q15M PRN PO DECREASED GLUCOSE; Start 09/24/16 at 21: 00 Dextrose (D50w Syringe) 25 ml Q15M PRN IV DECREASED GLUCOSE; Start 09/24/16 at 21:00 Dextrose (D50w Syringe) 50 ml Q15M PRN IV DECREASED GLUCOSE; Start 09/24/16 at 21:00 Glucagon (Glucagen) 1 mg Q15M PRN IM DECREASED GLUCOSE; Start 09/24/16 at 21:00 Glucose 15 gm 15 gm Q15M PRN BUCCAL DECREASED GLUCOSE; Start 09/24/16 at 21:00 Acetaminophen (Ofirmev 1000mg/ 100ml Iv) 100 ml @ 400 mls/hr Q6H PRN IVPB FEVER Last administered on 10/07/16 17:14; Admin Dose 400 MLS/HR; Start at 22:00 Vancomycin HCl (Vancomycin Oral Syringe) 250 mg Q6 PO Last administered on 17:15; Admin Dose 250 MG; Start 09/26/16 at 18:00; Status Future Hold Lactobacillus Acidoph/Bulgaricus (Floranex) 1 tab TID PO Last administered on 13:22; Admin Dose 1 TAB; Start 09/26/16 at 21:00; Status Future Hold Atorvastatin Calcium (Lipitor) 20 mg QHS GTB Last administered on 10/05/16 21: 42; Admin Dose 20 MG; Start 09/28/16 at 21:00; Status Future Hold Finasteride (Proscar) 5 mg DAILY GTB Last administered on 10/06/16 09:12; Admin Dose 5 MG; Start 09/29/16 at 09:00; Status Future Hold Multivitamins Therapeutic (Theragran) 1 tab DAILY GTB Last administered on 09:12; Admin Dose 1 TAB; Start 09/29/16 at 09:00; Status Future Hold Zinc Sulfate (Zinc Sulfate) 220 mg DAILY NGT Last administered on 10/06/16 09: 13; Admin Dose 220 MG; Start 09/29/16 at 09:00; Status Future Hold Insulin Aspart (Novolog Insulin Pen) NOVOLOG *MILD* ALGORI... Q6 SC ; Start at 18:00 Ondansetron HCl (Zofran Inj) 4 mg Q6H PRN IV NAUSEA AND/OR VOMITING Last administered on 10/05/16 17:42; Admin Dose 4 MG; Start 09/29/16 at 07:30 Heparin Sodium (Porcine) (Heparin (5000 Units/0.5 ml)) 5,000 unit BID SC Last administered on 10/08/16 09:23; Admin Dose 5,000 UNIT; Start 09/29/16 at 09:00 Acetaminophen 650 mg 650 mg Q6H PRN GTB PAIN AND OR ELEVATED TEMP Last administered on 10/04/16 21:27; Admin Dose 650 MG; Start 10/02/16 at 08:00 Metronidazole (Flagyl 500 Mg (Pmx)) 100 ml @ 100 mls/hr Q8 IVPB Last administered on 10/08/16 06:09; Admin Dose 100 MLS/HR; Start 10/02/16 at 14:00 Midodrine (Proamatine) 10 mg TID@,,17 PO Last administered on 10/06/16 17: 15; Admin Dose 10 MG; Start 10/06/16 at 01:00; Status Future Hold Mupirocin 1 applic 1 applic BID TOP Last administered on 10/08/16 09:19; Admin Dose 1 APPLIC; Start 10/06/16 at 21:00 Sodium Bicarbonate 100 meq/Dextrose 1,100 ml @ 80 mls/hr [id number] IV Last administered on 10/07/16 21:37; Admin Dose 80 MLS/HR; Start 10/06/16 at 11:00 Meropenem 100 ml @ 200 mls/hr Q12 IVPB Last administered on 10/08/16 09:23; Admin Dose 200 MLS/HR; Start 10/06/16 at 14:00 Norepinephrine 16 mg/Dextrose 500 ml @ 1.87 mls/hr TITRATE IV Last administered on 10/07/16 14:42; Admin Dose 9.37 MLS/HR; Start 10/06/16 at 16:30 Linezolid (Zyvox 600mg/D5W (Pmx)) 300 ml @ 300 mls/hr Q12 IVPB Last administered on 10/08/16 09:39; Admin Dose 300 MLS/HR; Start 10/06/16 at 21:00 Levothyroxine Sodium (Synthroid Iv) 12.5 mcg DAILY@06 IV Last administered on 06:08; Admin Dose 12.5 MCG; Start 10/07/16 at 06:00 Metoclopramide HCl (Reglan) 5 mg Q8 IV Last administered on 10/08/16 06:09; Admin Dose 5 MG; Start 10/06/16 at 22:00 Voriconazole (Vfend) 200 mg BID PO ; Start 10/08/16 at 21:00 Ryder Wild DO Oct 08, 2016 13:48
--- NOTE | 2016-10-08 15:03 | PN ---
Date/Time of Note Date/Time of Note DATE: 10/08/16 TIME: 14:53 Assessment/Plan VTE Prophylaxis VTE Prophylaxis Intervention: SCD's Lines/Catheters IV Catheter Type (from [facility]): Central Line Central line still needed: Yes Urinary Cath still in place: Yes Reason Cath still needed: urinary retention Assessment/Plan Chief Complaint/Hosp Course Problems: Assessment/Plan * Severe sepsis with septic shock 2/2 Decub ulcers and/or UTI and/or PNA * Ileus causing nausea and vomiting. 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 hold tube feed for now. 2. continue Reglan due to his recent h/o ileus 3. consider EGD if family agrees 4. continue Protonix bid dosing 5 abdominal series Subjective 24 Hr Interval Summary Free Text/Dictation * course reviewed with nurse on duty * patient seen and examined * Tube feeding on hold,g tube on intermittent suction about 200 cc of greenish fluid aspirated * still on npo * no active bleeding Exam/Review of Systems Vital Signs Vitals Vital Signs Date Time Temp Pulse Resp B/P Pulse Ox O2 Delivery O2 Flow Rate FiO2 10/08/16 12:00 112 10/08/16 11:40 27 100 30 10/08/16 10:00 94/44 10/08/16 09:30 Mechanical Ventilator 10/08/16 07:15 99.8 Intake and Output 10/07/16 10/07/16 10/08/16 15:00 23:00 07:00 Intake Total 2373.09 ml 1352.46 ml 796.21 ml Output Total 0 ml 125 ml 1300 ml Balance 2373.09 ml 1227.46 ml -503.79 ml Exam Respiratory: clear to auscultation, normal air movement, other (trach to vent) Cardiovascular: nl pulses, regular rate and rhythm Gastrointestinal: distended, non-tender, other (g tube in placed greenisg liquid draining), soft Results Result Diagram: 10/08/16 0600 10/08/16 0600 Results 24 hrs Laboratory Tests Test 10/07/16 17:27 10/08/16 00:15 10/08/16 00:20 10/08/16 06:00 Bedside Glucose 79 91 Lactic Acid Level 5.0 *H 4.9 *H White Blood Count 26.0 #H Red Blood Count 3.48 L Hemoglobin 8.7 L Hematocrit 29.1 L Mean Corpuscular Volume 83.6 Mean Corpuscular Hemoglobin 25.0 L Mean Corpuscular Hemoglobin Concent 29.9 L Red Cell Distribution Width 20.1 H Platelet Count 433 #H Mean Platelet Volume 11.0 H Neutrophils % 75.0 Band Neutrophils % 14.0 H Lymphocytes % 4.0 L Monocytes % 5.0 Basophils % 2.0 Neutrophils # 19.5 H Lymphocytes # 1.0 Monocytes # 1.3 H Basophils # 0.5 H Sodium Level 138 Potassium Level 3.3 L Chloride Level 105 Carbon Dioxide Level 17 L Anion Gap 19 H Blood Urea Nitrogen 58 H Creatinine 2.49 H Glucose Level 73 Calcium Level 7.5 L Phosphorus Level 6.2 H Magnesium Level 1.6 L Random Cortisol 16.6 Test 10/08/16 06:08 10/08/16 07:00 10/08/16 12:08 Bedside Glucose 83 111 Blood Gas Specimen Source Blood arterial Arterial Blood Date Drawn 10/08/2016 7:35:23 AM Arterial Blood pH (Temp corrected) 7.452 H Arterial Blood pCO2 (Temp correct) 24.3 L Arterial Blood pO2 (Temp corrected) 100.4 H Arterial Blood HCO3 16.6 L Arterial Blood Base Excess -6.1 L Arterial Blood Oxygen Saturation 97.5 Ki Test ACCEPTAB Arterial Blood Gas Puncture Site Right Radial Arterial Blood Carboxyhemoglobin 0.3 Arterial Blood Methemoglobin 0.5 Blood Gas A-a O2 Differential 85.0 H Oxyhemoglobin Percent 96.7 Total Hemoglobin 9.7 L Blood Gas Temperature 37.0 Blood Gas Respiration Rate 16.0 Blood Gas Actual Respiration Rate 32 Blood Gas Modality VENT - AC FiO2 30.0 Blood Gas Tidal Volume 500.0 Blood Gas Low PEEP Setting 5.0 Blood Gas Notified Whom JLD Blood Gas Notified Time 10/08/2016 7:52:40 AM Medications Medications Current Medications Acetaminophen (Tylenol Supp) 650 mg Q4H PRN [place] PAIN LEVEL 1-3 OR FEVER; Start 09/24/16 at 03:00 Eye Lubricant (Artificial Tears Oph) 1 drop TID BOTH EYES Last administered on 10/08/16 09:20; Admin Dose 1 DROP; Start 09/24/16 at 09:00 Sodium Hypochlorite (Dakin'S (1/4 Strength)) 1 applic BID IRR Last administered on 10/08/16 10:52; Admin Dose 1 APPLIC; Start 09/24/16 at 21:00 Pantoprazole (Protonix Iv) 40 mg BID@06,18 IV Last administered on 10/08/16 06: 08; Admin Dose 40 MG; Start 09/24/16 at 18:00 Collagenase (Santyl) 1 applic DAILY TOP Last administered on 10/08/16 10:52; Admin Dose 1 APPLIC; Start 09/24/16 at 20:30 Miscellaneous Information 1 ea NOTE XX ; Start 09/24/16 at 21:00 Glucose (Glutose) 15 gm Q15M PRN PO DECREASED GLUCOSE; Start 09/24/16 at 21:00 Glucose (Glutose) 22.5 gm Q15M PRN PO DECREASED GLUCOSE; Start 09/24/16 at 21: 00 Dextrose (D50w Syringe) 25 ml Q15M PRN IV DECREASED GLUCOSE; Start 09/24/16 at 21:00 Dextrose (D50w Syringe) 50 ml Q15M PRN IV DECREASED GLUCOSE; Start 09/24/16 at 21:00 Glucagon (Glucagen) 1 mg Q15M PRN IM DECREASED GLUCOSE; Start 09/24/16 at 21:00 Glucose 15 gm 15 gm Q15M PRN BUCCAL DECREASED GLUCOSE; Start 09/24/16 at 21:00 Acetaminophen (Ofirmev 1000mg/ 100ml Iv) 100 ml @ 400 mls/hr Q6H PRN IVPB FEVER Last administered on 10/07/16 17:14; Admin Dose 400 MLS/HR; Start at 22:00 Vancomycin HCl (Vancomycin Oral Syringe) 250 mg Q6 PO Last administered on 17:15; Admin Dose 250 MG; Start 09/26/16 at 18:00; Status Future Hold Lactobacillus Acidoph/Bulgaricus (Floranex) 1 tab TID PO Last administered on 13:22; Admin Dose 1 TAB; Start 09/26/16 at 21:00; Status Future Hold Atorvastatin Calcium (Lipitor) 20 mg QHS GTB Last administered on 10/05/16 21: 42; Admin Dose 20 MG; Start 09/28/16 at 21:00; Status Future Hold Finasteride (Proscar) 5 mg DAILY GTB Last administered on 10/06/16 09:12; Admin Dose 5 MG; Start 09/29/16 at 09:00; Status Future Hold Multivitamins Therapeutic (Theragran) 1 tab DAILY GTB Last administered on 09:12; Admin Dose 1 TAB; Start 09/29/16 at 09:00; Status Future Hold Zinc Sulfate (Zinc Sulfate) 220 mg DAILY NGT Last administered on 10/06/16 09: 13; Admin Dose 220 MG; Start 09/29/16 at 09:00; Status Future Hold Insulin Aspart (Novolog Insulin Pen) NOVOLOG *MILD* ALGORI... Q6 SC ; Start at 18:00 Ondansetron HCl (Zofran Inj) 4 mg Q6H PRN IV NAUSEA AND/OR VOMITING Last administered on 10/05/16 17:42; Admin Dose 4 MG; Start 09/29/16 at 07:30 Heparin Sodium (Porcine) (Heparin (5000 Units/0.5 ml)) 5,000 unit BID SC Last administered on 10/08/16 09:23; Admin Dose 5,000 UNIT; Start 09/29/16 at 09:00 Acetaminophen 650 mg 650 mg Q6H PRN GTB PAIN AND OR ELEVATED TEMP Last administered on 10/04/16 21:27; Admin Dose 650 MG; Start 10/02/16 at 08:00 Metronidazole (Flagyl 500 Mg (Pmx)) 100 ml @ 100 mls/hr Q8 IVPB Last administered on 10/08/16 06:09; Admin Dose 100 MLS/HR; Start 10/02/16 at 14:00 Midodrine (Proamatine) 10 mg TID@,13,17 PO Last administered on 10/06/16 17: 15; Admin Dose 10 MG; Start 10/06/16 at 01:00; Status Future Hold Mupirocin 1 applic 1 applic BID TOP Last administered on 10/08/16 09:19; Admin Dose 1 APPLIC; Start 10/06/16 at 21:00 Sodium Bicarbonate 100 meq/Dextrose 1,100 ml @ 80 mls/hr [id number] IV Last administered on 10/07/16 21:37; Admin Dose 80 MLS/HR; Start 10/06/16 at 11:00 Meropenem 100 ml @ 200 mls/hr Q12 IVPB Last administered on 10/08/16 09:23; Admin Dose 200 MLS/HR; Start 10/06/16 at 14:00 Norepinephrine 16 mg/Dextrose 500 ml @ 1.87 mls/hr TITRATE IV Last administered on 10/07/16 14:42; Admin Dose 9.37 MLS/HR; Start 10/06/16 at 16:30 Linezolid (Zyvox 600mg/D5W (Pmx)) 300 ml @ 300 mls/hr Q12 IVPB Last administered on 10/08/16 09:39; Admin Dose 300 MLS/HR; Start 10/06/16 at 21:00 Levothyroxine Sodium (Synthroid Iv) 12.5 mcg DAILY@06 IV Last administered on 06:08; Admin Dose 12.5 MCG; Start 10/07/16 at 06:00 Metoclopramide HCl (Reglan) 5 mg Q8 IV Last administered on 10/08/16 06:09; Admin Dose 5 MG; Start 10/06/16 at 22:00 Voriconazole (Vfend) 200 mg BID PO ; Start 10/08/16 at 21:00 JOSEF CASTRO MD Oct 08, 2016 15:03
--- NOTE | 2016-10-08 15:06 | PN ---
DATE: 10/08/2016 His penoscrotal edema. The patient is status post insertion of a Cee catheter, as his prior Cee catheter was not all the way inside the bladder and the balloon was inflated in the prostate area. GENERAL: The patient is on a respirator and has contractures and he is not able of expressing any c omplaints. OBJECTIVE: VITAL SIGNS: His temperature is 99.8, the maximum was yesterday 101.5. The patient is on a respira tor and the pulse is 112, respiration 27, blood pressure is 94/44. SUBJECTIVE: The patient has contractures. The penoscrotal edema has decreased a little bit, but st ill significant. The Cee catheter is draining clear urine and the urine output is good. LABORATORY DATA: CBC shows a white count of 26.0; yesterday it was 48.9, hemoglobin is 8.7, hematoc rit 29.1. The BUN is 58, creatinine 2.49, sodium 138, potassium 3.3, chloride 105, CO2 17. The cre atinine has come down today from what it was yesterday; however, it was on October 02, .10, so it is still a little higher than it was, and most likely it will get better as the bladder is drained an d the hydronephrosis has decreased. The urine culture shows no growth after [address] sc an that he had the report also mentioned the possibility of a stone in the distal left ureter measur ing 7 x 1.7 cm. The patient is in no condition to undergo any surgical intervention at the present. IMPRESSION: Penoscrotal edema in failure, possible distal left ureteral stones, bilateral hydroneph rosis. Renal function is improving. The patient is on antibiotics. He is on voriconazole and line zolid and meropenem. PLAN: To continue the same and keep the Cee catheter in place and if his condition that allows, t hen one could investigate and remove the stone that he has in the distal left ureter. Dictated By: MISHEL WOODWARD/ELIZABETH Conf#: [id number] DID#: [id number]
--- NOTE | 2016-10-08 17:39 | PN ---
Date/Time of Note Date/Time of Note DATE: 10/08/16 TIME: 17:37 Assessment/Plan Lines/Catheters IV Catheter Type (from [facility]): Central Line Cee in Place (from [facility]): Yes Assessment/Plan Chief Complaint/Hosp Course 1. Shock, septic (uti, pna, wound) -Judicious fluid management -Supportive measures -Antibiotics 2. Multiple decubitus ulcerations with necrotic tissue and deep tissue injury -Offload -Local care -Vitamin C -Eventual nutritional optimization -Debridement when medically cleared 3. Contracted state with functional quadriplegia -Offloading -Nutritional optimization when possible 4. Anemia -Monitor 5. Ventilator dependent respiratory failure -Ventilator management and pulmonary toilet 6. Renal insufficiency -Judicious fluid management -Avoid nephrotoxic agents 7. Coronary artery disease and history of non-ST elevation [place] -Cardiac optimization 8. Vomiting 2nd Ileus -bowel regimen per GI Thank you Problems: Subjective 24 Hr Interval Summary Pressors. Leukocytosis improving but still elevated. Vomited. Fevers. No chills. No cough. No seizure. No rash. No blood rectum. Coffee ground from feeding tube. No bloating. No seizures. Exam/Review of Systems Vital Signs Vitals Vital Signs Date Time Temp Pulse Resp B/P Pulse Ox O2 Delivery O2 Flow Rate FiO2 10/08/16 16:00 113 10/08/16 16:00 100.8 27 102/47 100 Mechanical Ventilator 10/08/16 11:40 30 Intake and Output 10/07/16 10/07/16 10/08/16 15:00 23:00 07:00 Intake Total 2373.09 ml 1352.46 ml 796.21 ml Output Total 0 ml 125 ml 1300 ml Balance 2373.09 ml 1227.46 ml -503.79 ml Exam Free Text/Dictation Constitutional: No alert, No oriented Psych: No nl mood/affect Head: atraumatic, normocephalic Eyes: nl conjunctiva, No EOMI, No icteric ENMT: mucosa pink and moist, nl external ears & nose Neck: jvd, other (Trach in place), No non-tender, No supple Respiratory: No congested cough, No labored breathing Cardiovascular: No regular rate and rhythm Gastrointestinal: non-tender, other (PEG in place), soft, No rebound or guarding Musculoskeletal: No joint tenderness, No nl extremities to inspection, No nl gait and stance Extremities: No calf tenderness, No cyanosis Neurological: No nl mental status, No nl speech, No nl strength Skin: rash or lesions (Multiple decubitus ulcerations with debris, necrotic tissue, deep tissue injury), No diaphoresis, No nl turgor Lymph: nontender Results Result Diagram: 10/08/16 0600 10/08/16 0600 EVA GUARDADO MD Oct 08, 2016 17:39
[2016-10-08] MEDS: SODIUM BICARBONATE (IV ADD) 100 MEQ in DEXTROSE 5% 1,000 ML IV SCH (18:51)
[2016-10-08] MEDS: VORICONAZOLE 200 MG TAB PO SCH (21:59)
--- NOTE | 2016-10-08 23:13 | RADRPT ---
PROCEDURE: XR acute abdominal series. CLINICAL INDICATION: Ileus. TECHNIQUE: Single frontal view of the abdomen. COMPARISON: 10/06/2016. FINDINGS: G tube again projects over the left upper quadrant. Gas and stool are seen within nondilated large bowel. Small bowel ileus pattern is decreased over i nterval, and recommend close radiographic follow up. There are no dilated loops of small bowel to s uggest a bowel obstruction. There is no pneumoperitoneum. Large left lung base pleural effusion. Cardiomegaly. Small right pleural effusion. Right lung bas e is otherwise clear. IMPRESSION: 1. Small bowel ileus pattern is decreased over interval, and recommend close radiographic follow up . 2. G tube again projects over left upper quadrant. 3. Large left pleural effusion. RPTAT: [facility] Physician Todd Date Time Electronically viewed and signed by Physician Todd on 10/08/2016 23:13 RS/
[2016-10-09] VITALS (95 sets, daily range): BP systolic 87–131; BP diastolic 44–73; PULSE 92–116; RESP 16–31
[2016-10-09] MEDS: ALBUTEROL HFA 8 GM INHALER INH SCH ×4 (01:14→19:51)
[2016-10-09] MEDS: IPRATROPIUM (HFA) 12.9 GM INHALER INH SCH ×4 (01:14→19:51)
[2016-10-09 05:42] LABS: ADD SCAN DIFF NO
[2016-10-09 05:47] LABS: BASOPHIL # 0.1 10^3/ul (0.0-0.1); BASOPHILS % 0.3 % (0.0-2.0); EOSINOPHILS # 0.2 10^3/ul (0.0-0.5); EOSINOPHILS % 0.9 % (0.0-7.0); HEMATOCRIT 29.6 % (42.0-52.0); HEMOGLOBIN 8.9 g/dl (14.0-18.0); LYMPHOCYTES # 1.9 10^3/ul (0.8-2.9); LYMPHOCYTES % 10.3 % (15.0-51.0); MEAN CORPUSCULAR HEMOGLOBIN 24.9 pg (29.0-33.0); MEAN CORPUSCULAR HGB CONC 30.1 g/dl (32.0-37.0); MEAN CORPUSCULAR VOLUME 82.7 fl (82.0-101.0); MEAN PLATELET VOLUME 10.7 fl (7.4-10.4); MONOCYTE # 1.1 10^3/ul (0.3-0.9); MONOCYTES % 6.1 % (0.0-11.0); NEUTROPHIL # 15.1 10^3/ul (1.6-7.5); NEUTROPHILS % 81.1 % (39.0-77.0); PLATELET COUNT 409 10^3/UL (140-415); RED BLOOD COUNT 3.58 10^6/ul (4.70-6.10); WHITE BLOOD COUNT 18.6 10^3/ul (4.8-10.8)
[2016-10-09] MEDS: metroNIDAZOLE 500 MG/NS (PMX) 100 ML IVPB SCH ×3 (05:58→21:53)
[2016-10-09] MEDS: PANTOPRAZOLE 40 MG INJ IV SCH ×2 (05:58→18:23)
[2016-10-09] MEDS: METOCLOPRAMIDE 10 MG INJ IV SCH ×3 (05:59→21:53)
[2016-10-09] MEDS: LEVOTHYROXINE 100 MCG VIAL IV SCH (05:59)
[2016-10-09] MEDS: INSULIN ASPART [NOVOLOG] 3 ML PEN SC SCH ×4 (06:00→18:00)
[2016-10-09 06:10] LABS: POTASSIUM 3.1 mmol/L (3.5-5.1)
[2016-10-09 06:11] LABS: MAGNESIUM 1.8 mg/dl (1.7-2.5); PHOSPHORUS 5.1 mg/dl (2.5-4.9)
[2016-10-09 06:13] LABS: CREATININE 1.85 mg/dl (0.61-1.24)
[2016-10-09 06:14] LABS: CALCIUM 7.4 mg/dl (8.4-10.2)
--- NOTE | 2016-10-09 07:12 | PN ---
Date/Time of Note Date/Time of Note DATE: 10/09/16 TIME: 07:08 Assessment/Plan VTE Prophylaxis VTE Prophylaxis Intervention: heparin Lines/Catheters IV Catheter Type (from Nrs): Central Line Central line still needed: Yes Urinary Cath still in place: Yes Reason Cath still needed: terminal illness/intractable pain Assessment/Plan Chief Complaint/Hosp Course 1. Sepsis with underlying septic shock secondary to infected sacral decubitus wound. The wound culture has been positive for Klebsiella pneumoniae, Acinetobacter baumannii, vancomycin-resistant Enterococcus and Staph aureus. Continue antimicrobials as per infectious diseases. Wean off IV pressors as tolerated. 2. Infected sacral decubitus ulcer. Continue pain management. Continue local dressing changes as per wound care consultants. 3. Chronic respiratory failure. Status post tracheostomy and vent dependent. Continue inhaled bronchodilators. Pulmonary following the patient. 4. Acute renal failure. Most probably secondary to hemodynamics versus from acute tubular necrosis. Continue to use nephrotoxic medications with caution. 5. 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 Continue antimicrobials as per ID. 6. 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 Continue supportive care. 7. Hypothyroidism. Continue Synthroid. 8. Dysphagia secondary to encephalopathy. Continue aspiration precautions. Continue G tube feedings. 9. Normocytic anemia. Continue to monitor the H and H closely. Transfuse as needed. 10. Leukocytosis with thrombocytosis. The patient being followed by Hematology. Continue to monitor. 11. Ileus. Tube feedings on hold. Continue Reglan. Being followed by gastroenterology and Surgery. 12. Moderate . Continue monitoring. 13. DVT prophylaxis. Subcutaneous heparin. 14. Gastrointestinal prophylaxis. Proton pump inhibitors. 15 Fluid, electrolytes and nutrition. G tube feedings on hold. IVFs as per nephrology. 16. Gastrointestinal prophylaxis. Proton pump inhibitors. PLAN: 1. Continue ICU monitoring. 2. Replete potassium. 3. Continue to wean off pressors as tolerated. 4. Poor prognosis. Palliative care on the case. Case discussed with Dr. Chang. CRITICAL CARE TIME: 35 minutes. Problems: Subjective 24 Hr Interval Summary Free Text/Dictation Febrile episode in the AM. Exam/Review of Systems Vital Signs Vitals Vital Signs Date Time Temp Pulse Resp B/P Pulse Ox O2 Delivery O2 Flow Rate FiO2 10/09/16 06:00 103 28 111/49 98 Mechanical Ventilator 10/09/16 05:48 30 10/09/16 04:00 101.2 Intake and Output 10/08/16 10/08/16 10/09/16 15:00 23:00 07:00 Intake Total 1091.87 ml 1105.00 ml 391.87 ml Output Total 925 ml 800 ml 350 ml Balance 166.87 ml 305.00 ml 41.87 ml Exam GENERAL: This is an elderly, frail-looking male lying in bed in no apparent distress. HEENT: Head normocephalic and atraumatic. Eyes: Anicteric sclerae. Conjunctivae clear. ENT: Nasal septum is midline. Oral mucosa is dry. NECK: Supple. Tracheostomy midline. RESPIRATORY: A tracheostomy connected to mechanical ventilator. On AC mode ventilation. CARDIAC: Regular rate and rhythm with a grade III/ systolic ejection murmur. ABDOMEN: Soft, nontender and nondistended. G-tube in place. GENITOURINARY: Deferred. EXTREMITIES: No cyanosis, no clubbing. Peripheral pulses. Bilateral upper extremity edema. Bilateral foot edema. Contracted bilateral upper and bilateral lower extremities. NEUROLOGIC: The patient is obtunded. Results Result Diagram: 10/09/16 0430 10/09/16 0430 Results 24 hrs Laboratory Tests Test 10/08/16 12:08 10/08/16 17:49 10/08/16 23:57 10/09/16 04:30 Bedside Glucose 111 90 107 White Blood Count 18.6 #H Red Blood Count 3.58 L Hemoglobin 8.9 L Hematocrit 29.6 L Mean Corpuscular Volume 82.7 Mean Corpuscular Hemoglobin 24.9 L Mean Corpuscular Hemoglobin Concent 30.1 L Red Cell Distribution Width 20.0 H Platelet Count 409 Mean Platelet Volume 10.7 H Neutrophils % 81.1 H Lymphocytes % 10.3 L Monocytes % 6.1 Eosinophils % 0.9 Basophils % 0.3 Nucleated Red Blood Cells % 0.0 Neutrophils # 15.1 H Lymphocytes # 1.9 Monocytes # 1.1 H Eosinophils # 0.2 Basophils # 0.1 Nucleated Red Blood Cells # 0.0 Sodium Level 136 Potassium Level 3.1 L Chloride Level 106 Carbon Dioxide Level 18 L Anion Gap 15 Blood Urea Nitrogen 45 #H Creatinine 1.85 H Glucose Level 105 Calcium Level 7.4 L Phosphorus Level 5.1 H Magnesium Level 1.8 Test 10/09/16 05:56 Bedside Glucose 106 Medications Medications Current Medications Acetaminophen (Tylenol Supp) 650 mg Q4H PRN [place] PAIN LEVEL 1-3 OR FEVER; Start 09/24/16 at 03:00 Eye Lubricant (Artificial Tears Oph) 1 drop TID BOTH EYES Last administered on 10/08/16 21:58; Admin Dose 1 DROP; Start 09/24/16 at 09:00 Sodium Hypochlorite (Dakin'S (1/4 Strength)) 1 applic BID IRR Last administered on 10/08/16 21:58; Admin Dose 1 APPLIC; Start 09/24/16 at 21:00 Pantoprazole (Protonix Iv) 40 mg BID@06,18 IV Last administered on 10/09/16 05: 58; Admin Dose 40 MG; Start 09/24/16 at 18:00 Collagenase (Santyl) 1 applic DAILY TOP Last administered on 10/08/16 10:52; Admin Dose 1 APPLIC; Start 09/24/16 at 20:30 Miscellaneous Information 1 ea NOTE XX ; Start 09/24/16 at 21:00 Glucose (Glutose) 15 gm Q15M PRN PO DECREASED GLUCOSE; Start 09/24/16 at 21:00 Glucose (Glutose) 22.5 gm Q15M PRN PO DECREASED GLUCOSE; Start 09/24/16 at 21: 00 Dextrose (D50w Syringe) 25 ml Q15M PRN IV DECREASED GLUCOSE; Start 09/24/16 at 21:00 Dextrose (D50w Syringe) 50 ml Q15M PRN IV DECREASED GLUCOSE; Start 09/24/16 at 21:00 Glucagon (Glucagen) 1 mg Q15M PRN IM DECREASED GLUCOSE; Start 09/24/16 at 21:00 Glucose 15 gm 15 gm Q15M PRN BUCCAL DECREASED GLUCOSE; Start 09/24/16 at 21:00 Acetaminophen (Ofirmev 1000mg/ 100ml Iv) 100 ml @ 400 mls/hr Q6H PRN IVPB FEVER Last administered on 10/07/16 17:14; Admin Dose 400 MLS/HR; Start at 22:00 Vancomycin HCl (Vancomycin Oral Syringe) 250 mg Q6 PO Last administered on 17:15; Admin Dose 250 MG; Start 09/26/16 at 18:00; Status Future Hold Lactobacillus Acidoph/Bulgaricus (Floranex) 1 tab TID PO Last administered on 13:22; Admin Dose 1 TAB; Start 09/26/16 at 21:00; Status Future Hold Atorvastatin Calcium (Lipitor) 20 mg QHS GTB Last administered on 10/05/16 21: 42; Admin Dose 20 MG; Start 09/28/16 at 21:00; Status Future Hold Finasteride (Proscar) 5 mg DAILY GTB Last administered on 10/06/16 09:12; Admin Dose 5 MG; Start 09/29/16 at 09:00; Status Future Hold Multivitamins Therapeutic (Theragran) 1 tab DAILY GTB Last administered on 09:12; Admin Dose 1 TAB; Start 09/29/16 at 09:00; Status Future Hold Zinc Sulfate (Zinc Sulfate) 220 mg DAILY NGT Last administered on 10/06/16 09: 13; Admin Dose 220 MG; Start 09/29/16 at 09:00; Status Future Hold Insulin Aspart (Novolog Insulin Pen) NOVOLOG *MILD* ALGORI... Q6 SC ; Start at 18:00 Ondansetron HCl (Zofran Inj) 4 mg Q6H PRN IV NAUSEA AND/OR VOMITING Last administered on 10/05/16 17:42; Admin Dose 4 MG; Start 09/29/16 at 07:30 Heparin Sodium (Porcine) (Heparin (5000 Units/0.5 ml)) 5,000 unit BID SC Last administered on 10/08/16 22:22; Admin Dose 5,000 UNIT; Start 09/29/16 at 09:00 Acetaminophen 650 mg 650 mg Q6H PRN GTB PAIN AND OR ELEVATED TEMP Last administered on 10/04/16 21:27; Admin Dose 650 MG; Start 10/02/16 at 08:00 Metronidazole (Flagyl 500 Mg (Pmx)) 100 ml @ 100 mls/hr Q8 IVPB Last administered on 10/09/16 05:58; Admin Dose 100 MLS/HR; Start 10/02/16 at 14:00 Midodrine (Proamatine) 10 mg TID@,,17 PO Last administered on 10/06/16 17: 15; Admin Dose 10 MG; Start 10/06/16 at 01:00; Status Future Hold Mupirocin 1 applic 1 applic BID TOP Last administered on 10/08/16 22:00; Admin Dose 1 APPLIC; Start 10/06/16 at 21:00 Sodium Bicarbonate 100 meq/Dextrose 1,100 ml @ 80 mls/hr [id number] IV Last administered on 10/08/16 18:51; Admin Dose 80 MLS/HR; Start 10/06/16 at 11:00 Meropenem 100 ml @ 200 mls/hr Q12 IVPB Last administered on 10/08/16 21:00; Admin Dose 200 MLS/HR; Start 10/06/16 at 14:00 Norepinephrine 16 mg/Dextrose 500 ml @ 1.87 mls/hr TITRATE IV Last administered on 10/07/16 14:42; Admin Dose 9.37 MLS/HR; Start 10/06/16 at 16:30 Linezolid (Zyvox 600mg/D5W (Pmx)) 300 ml @ 300 mls/hr Q12 IVPB Last administered on 10/08/16 22:07; Admin Dose 300 MLS/HR; Start 10/06/16 at 21:00 Levothyroxine Sodium (Synthroid Iv) 12.5 mcg DAILY@06 IV Last administered on 05:59; Admin Dose 12.5 MCG; Start 10/07/16 at 06:00 Metoclopramide HCl (Reglan) 5 mg Q8 IV Last administered on 10/09/16 05:59; Admin Dose 5 MG; Start 10/06/16 at 22:00 Voriconazole (Vfend) 200 mg BID PO Last administered on 10/08/16 21:59; Admin Dose 200 MG; Start 10/08/16 at 21:00 BIGG HEWITT NP Oct 09, 2016 07:12
[2016-10-09] MEDS ORDERED: POTASSIUM CHLORIDE 250 ML IVPB ONE (07:30)
[2016-10-09] MEDS: SODIUM BICARBONATE (IV ADD) 100 MEQ in DEXTROSE 5% 1,000 ML IV SCH ×2 (08:56→22:35)
[2016-10-09] MEDS: MEROPENEM 500 MG/100 ML (PMX) 100 ML IVPB SCH ×2 (08:57→21:51)
[2016-10-09] MEDS: MUPIROCIN 2% 22 GM OINT TOP SCH ×2 (08:57→21:52)
[2016-10-09] MEDS: ARTIFICIAL TEARS 15 ML OPH BOTH EYES SCH ×3 (08:57→21:50)
[2016-10-09] MEDS: VORICONAZOLE 200 MG TAB PO SCH ×2 (08:57→21:58)
[2016-10-09] MEDS: COLLAGENASE 30 GM TUBE TOP SCH (08:58)
[2016-10-09] MEDS: SODIUM HYPOCHLORITE 0.125% 473 ML BTL IRR SCH ×2 (08:58→21:51)
[2016-10-09] MEDS: HEPARIN 5,000 UNIT/0.5 ML VIAL SC SCH ×2 (09:02→21:55)
[2016-10-09] MEDS: LINEZOLID 600 MG/D5W (PMX) 300 ML IVPB SCH ×2 (09:43→21:00)
--- NOTE | 2016-10-09 10:05 | CONS ---
Date/Time of Note Date/Time of Note DATE: 10/09/16 TIME: 10:03 Assessment/Plan Assessment/Plan Additional Assessment/Plan Ventilator settings; AC of 16, tidal volume 500, PEEP of 5, 30% FiO2. Assessment recommendations; 1.. Patient with a history of chronic respiratory failure admitted for sepsis and pneumonia. 2. Hypotension, requiring Levophed. 3. Chronic renal insufficiency. 4. Hypernatremia. 5. Improving leukocytosis. Continue current supportive care. Prognosis remains poor. Consultation Date/Type/Reason Admit Date/Time Sep 24, 2016 at 03:19 Initial Consult Date 09/24/16 Type of Consultation: Pulmonary/critical care Referring Provider: ROULA DEL TORO 24 HR Interval Summary Free Text/Dictation Patient condition remains critical. Still requiring full ventilator support as well as pressor support with increased dosing of Levophed. General exam; elderly male, on ventilator via tracheostomy unresponsive. Currently in no distress. Exam/Review of Systems Vital Signs Vitals Vital Signs Date Time Temp Pulse Resp B/P Pulse Ox O2 Delivery O2 Flow Rate FiO2 10/09/16 06:00 103 28 111/49 98 Mechanical Ventilator 10/09/16 05:48 30 10/09/16 04:00 101.2 Intake and Output 10/08/16 10/08/16 10/09/16 15:00 23:00 07:00 Intake Total 1091.87 ml 1105.00 ml 826.87 ml Output Total 925 ml 800 ml 350 ml Balance 166.87 ml 305.00 ml 476.87 ml Exam HEENT exam is; supple neck, tracheostomy in place. Insertion site is clean. No neck masses. No thyromegaly. No neck masses. Chest exam is; diminished but clear vessel. S1-S2 audible, no murmurs. Regular rhythm. Abdomen examination; soft, nondistended. No organomegaly. G-tube in place. Bowel sounds audible. Extremity exam is; no peripheral edema. Patient has severe contractures involving all 4 extremities. VP [employer]ATE[employer]IC [employer]ANNING examination; patient remains unresponsive. Results Result Diagram: 10/09/16 0430 10/09/16 0430 Results 24 hrs Laboratory Tests Test 10/08/16 12:08 10/08/16 17:49 10/08/16 23:57 10/09/16 04:30 Bedside Glucose 111 90 107 White Blood Count 18.6 #H Red Blood Count 3.58 L Hemoglobin 8.9 L Hematocrit 29.6 L Mean Corpuscular Volume 82.7 Mean Corpuscular Hemoglobin 24.9 L Mean Corpuscular Hemoglobin Concent 30.1 L Red Cell Distribution Width 20.0 H Platelet Count 409 Mean Platelet Volume 10.7 H Neutrophils % 81.1 H Lymphocytes % 10.3 L Monocytes % 6.1 Eosinophils % 0.9 Basophils % 0.3 Nucleated Red Blood Cells % 0.0 Neutrophils # 15.1 H Lymphocytes # 1.9 Monocytes # 1.1 H Eosinophils # 0.2 Basophils # 0.1 Nucleated Red Blood Cells # 0.0 Sodium Level 136 Potassium Level 3.1 L Chloride Level 106 Carbon Dioxide Level 18 L Anion Gap 15 Blood Urea Nitrogen 45 #H Creatinine 1.85 H Glucose Level 105 Calcium Level 7.4 L Phosphorus Level 5.1 H Magnesium Level 1.8 Test 10/09/16 05:56 Bedside Glucose 106 Medications Medications Current Medications Acetaminophen (Tylenol Supp) 650 mg Q4H PRN [place] PAIN LEVEL 1-3 OR FEVER; Start 09/24/16 at 03:00 Eye Lubricant (Artificial Tears Oph) 1 drop TID BOTH EYES Last administered on 10/09/16 08:57; Admin Dose 1 DROP; Start 09/24/16 at 09:00 Sodium Hypochlorite (Dakin'S (1/4 Strength)) 1 applic BID IRR Last administered on 10/09/16 08:58; Admin Dose 1 APPLIC; Start 09/24/16 at 21:00 Pantoprazole (Protonix Iv) 40 mg BID@06,18 IV Last administered on 10/09/16 05: 58; Admin Dose 40 MG; Start 09/24/16 at 18:00 Collagenase (Santyl) 1 applic DAILY TOP Last administered on 10/09/16 08:58; Admin Dose 1 APPLIC; Start 09/24/16 at 20:30 Miscellaneous Information 1 ea NOTE XX ; Start 09/24/16 at 21:00 Glucose (Glutose) 15 gm Q15M PRN PO DECREASED GLUCOSE; Start 09/24/16 at 21:00 Glucose (Glutose) 22.5 gm Q15M PRN PO DECREASED GLUCOSE; Start 09/24/16 at 21: 00 Dextrose (D50w Syringe) 25 ml Q15M PRN IV DECREASED GLUCOSE; Start 09/24/16 at 21:00 Dextrose (D50w Syringe) 50 ml Q15M PRN IV DECREASED GLUCOSE; Start 09/24/16 at 21:00 Glucagon (Glucagen) 1 mg Q15M PRN IM DECREASED GLUCOSE; Start 09/24/16 at 21:00 Glucose 15 gm 15 gm Q15M PRN BUCCAL DECREASED GLUCOSE; Start 09/24/16 at 21:00 Acetaminophen (Ofirmev 1000mg/ 100ml Iv) 100 ml @ 400 mls/hr Q6H PRN IVPB FEVER Last administered on 10/07/16 17:14; Admin Dose 400 MLS/HR; Start at 22:00 Vancomycin HCl (Vancomycin Oral Syringe) 250 mg Q6 PO Last administered on 17:15; Admin Dose 250 MG; Start 09/26/16 at 18:00; Status Future Hold Lactobacillus Acidoph/Bulgaricus (Floranex) 1 tab TID PO Last administered on 13:22; Admin Dose 1 TAB; Start 09/26/16 at 21:00; Status Future Hold Atorvastatin Calcium (Lipitor) 20 mg QHS GTB Last administered on 10/05/16 21: 42; Admin Dose 20 MG; Start 09/28/16 at 21:00; Status Future Hold Finasteride (Proscar) 5 mg DAILY GTB Last administered on 10/06/16 09:12; Admin Dose 5 MG; Start 09/29/16 at 09:00; Status Future Hold Multivitamins Therapeutic (Theragran) 1 tab DAILY GTB Last administered on 09:12; Admin Dose 1 TAB; Start 09/29/16 at 09:00; Status Future Hold Zinc Sulfate (Zinc Sulfate) 220 mg DAILY NGT Last administered on 10/06/16 09: 13; Admin Dose 220 MG; Start 09/29/16 at 09:00; Status Future Hold Insulin Aspart (Novolog Insulin Pen) NOVOLOG *MILD* ALGORI... Q6 SC ; Start at 18:00 Ondansetron HCl (Zofran Inj) 4 mg Q6H PRN IV NAUSEA AND/OR VOMITING Last administered on 10/05/16 17:42; Admin Dose 4 MG; Start 09/29/16 at 07:30 Heparin Sodium (Porcine) (Heparin (5000 Units/0.5 ml)) 5,000 unit BID SC Last administered on 10/09/16 09:02; Admin Dose 5,000 UNIT; Start 09/29/16 at 09:00 Acetaminophen 650 mg 650 mg Q6H PRN GTB PAIN AND OR ELEVATED TEMP Last administered on 10/04/16 21:27; Admin Dose 650 MG; Start 10/02/16 at 08:00 Metronidazole (Flagyl 500 Mg (Pmx)) 100 ml @ 100 mls/hr Q8 IVPB Last administered on 10/09/16 05:58; Admin Dose 100 MLS/HR; Start 10/02/16 at 14:00 Midodrine (Proamatine) 10 mg TID@,,17 PO Last administered on 10/06/16 17: 15; Admin Dose 10 MG; Start 10/06/16 at 01:00; Status Future Hold Mupirocin 1 applic 1 applic BID TOP Last administered on 10/09/16 08:57; Admin Dose 1 APPLIC; Start 10/06/16 at 21:00 Sodium Bicarbonate 100 meq/Dextrose 1,100 ml @ 80 mls/hr [id number] IV Last administered on 10/09/16 08:56; Admin Dose 80 MLS/HR; Start 10/06/16 at 11:00 Meropenem 100 ml @ 200 mls/hr Q12 IVPB Last administered on 10/09/16 08:57; Admin Dose 200 MLS/HR; Start 10/06/16 at 14:00 Norepinephrine 16 mg/Dextrose 500 ml @ 1.87 mls/hr TITRATE IV Last administered on 10/07/16 14:42; Admin Dose 9.37 MLS/HR; Start 10/06/16 at 16:30 Linezolid (Zyvox 600mg/D5W (Pmx)) 300 ml @ 300 mls/hr Q12 IVPB Last administered on 10/09/16 09:43; Admin Dose 300 MLS/HR; Start 10/06/16 at 21:00 Levothyroxine Sodium (Synthroid Iv) 12.5 mcg DAILY@06 IV Last administered on 05:59; Admin Dose 12.5 MCG; Start 10/07/16 at 06:00 Metoclopramide HCl (Reglan) 5 mg Q8 IV Last administered on 10/09/16 05:59; Admin Dose 5 MG; Start 10/06/16 at 22:00 Voriconazole 200 mg 200 mg BID PO Last administered on 10/09/16 08:57; Admin Dose 200 MG; Start 10/08/16 at 21:00 Potassium Chloride (KCl 40 MEQ/250 ML NS) 250 ml @ 62.5 mls/hr ONCE ONCE IVPB Last administered on 10/09/16 08:56; Admin Dose 62.5 MLS/HR; Start 10/09/16 at 07:30; Stop 10/09/16 at 11:29 MAIN [employer]TER Oct 09, 2016 10:05
--- NOTE | 2016-10-09 10:25 | CONS ---
Date/Time of Note Date/Time of Note DATE: 10/09/16 TIME: 10:24 Assessment/Plan Assessment/Plan Additional Assessment/Plan 1. Acute kidney injury on chronic kidney disease. due to ATN from septic shock 2. septic shock on levophed 3. severe metabolic acidosis on bicarbonate drip 5. History of chronic respiratory failure, status post tracheostomy, on ventilator. 6. History of G-tube. 7. Poor mental status due to the previous cerebrovascular accident. 8. History of dementia. 9. History of hypertension. PLAN: on levophed gtt, now BP more stable critically ill good urine output yesterday, Na improved, K low, KCL 40meQ iV x 1 now, continue bicarbonate drip now, Monitor Electrolytes and Cr, K s/p palliative care meeting will follow up Consultation Date/Type/Reason Admit Date/Time Sep 24, 2016 at 03:19 Initial Consult Date 09/24/16 Type of Consultation: Pulmonary/critical care Referring Provider: ROULA DEL TORO Exam/Review of Systems Vital Signs Vitals Vital Signs Date Time Temp Pulse Resp B/P Pulse Ox O2 Delivery O2 Flow Rate FiO2 10/09/16 06:00 103 28 111/49 98 Mechanical Ventilator 10/09/16 05:48 30 10/09/16 04:00 101.2 Intake and Output 10/08/16 10/08/16 10/09/16 15:00 23:00 07:00 Intake Total 1091.87 ml 1105.00 ml 826.87 ml Output Total 925 ml 800 ml 350 ml Balance 166.87 ml 305.00 ml 476.87 ml Exam GENERAL: This is a chronically ill-appearing, elderly man who is awake, noncommunicative, in no distress. HEENT: Head atraumatic, normocephalic. Sclerae anicteric. Buccal mucosa dry. NECK: Supple. Tracheostomy present. CHEST: Rise symmetrical. Breath sounds diminished to bases. HEART: S1, S2. ABDOMEN: Soft, bowel sounds present. EXTREMITIES: Without cyanosis. Trace edema. Results Result Diagram: 10/09/16 0430 10/09/16 0430 Results 24 hrs Laboratory Tests Test 10/08/16 12:08 10/08/16 17:49 10/08/16 23:57 10/09/16 04:30 Bedside Glucose 111 90 107 White Blood Count 18.6 #H Red Blood Count 3.58 L Hemoglobin 8.9 L Hematocrit 29.6 L Mean Corpuscular Volume 82.7 Mean Corpuscular Hemoglobin 24.9 L Mean Corpuscular Hemoglobin Concent 30.1 L Red Cell Distribution Width 20.0 H Platelet Count 409 Mean Platelet Volume 10.7 H Neutrophils % 81.1 H Lymphocytes % 10.3 L Monocytes % 6.1 Eosinophils % 0.9 Basophils % 0.3 Nucleated Red Blood Cells % 0.0 Neutrophils # 15.1 H Lymphocytes # 1.9 Monocytes # 1.1 H Eosinophils # 0.2 Basophils # 0.1 Nucleated Red Blood Cells # 0.0 Sodium Level 136 Potassium Level 3.1 L Chloride Level 106 Carbon Dioxide Level 18 L Anion Gap 15 Blood Urea Nitrogen 45 #H Creatinine 1.85 H Glucose Level 105 Calcium Level 7.4 L Phosphorus Level 5.1 H Magnesium Level 1.8 Test 10/09/16 05:56 Bedside Glucose 106 Medications Medications Current Medications Acetaminophen (Tylenol Supp) 650 mg Q4H PRN [place] PAIN LEVEL 1-3 OR FEVER; Start 09/24/16 at 03:00 Eye Lubricant (Artificial Tears Oph) 1 drop TID BOTH EYES Last administered on 10/09/16 08:57; Admin Dose 1 DROP; Start 09/24/16 at 09:00 Sodium Hypochlorite (Dakin'S (1/4 Strength)) 1 applic BID IRR Last administered on 10/09/16 08:58; Admin Dose 1 APPLIC; Start 09/24/16 at 21:00 Pantoprazole (Protonix Iv) 40 mg BID@06,18 IV Last administered on 10/09/16 05: 58; Admin Dose 40 MG; Start 09/24/16 at 18:00 Collagenase (Santyl) 1 applic DAILY TOP Last administered on 10/09/16 08:58; Admin Dose 1 APPLIC; Start 09/24/16 at 20:30 Miscellaneous Information 1 ea NOTE XX ; Start 09/24/16 at 21:00 Glucose (Glutose) 15 gm Q15M PRN PO DECREASED GLUCOSE; Start 09/24/16 at 21:00 Glucose (Glutose) 22.5 gm Q15M PRN PO DECREASED GLUCOSE; Start 09/24/16 at 21: 00 Dextrose (D50w Syringe) 25 ml Q15M PRN IV DECREASED GLUCOSE; Start 09/24/16 at 21:00 Dextrose (D50w Syringe) 50 ml Q15M PRN IV DECREASED GLUCOSE; Start 09/24/16 at 21:00 Glucagon (Glucagen) 1 mg Q15M PRN IM DECREASED GLUCOSE; Start 09/24/16 at 21:00 Glucose 15 gm 15 gm Q15M PRN BUCCAL DECREASED GLUCOSE; Start 09/24/16 at 21:00 Acetaminophen (Ofirmev 1000mg/ 100ml Iv) 100 ml @ 400 mls/hr Q6H PRN IVPB FEVER Last administered on 10/07/16 17:14; Admin Dose 400 MLS/HR; Start at 22:00 Vancomycin HCl (Vancomycin Oral Syringe) 250 mg Q6 PO Last administered on 17:15; Admin Dose 250 MG; Start 09/26/16 at 18:00; Status Future Hold Lactobacillus Acidoph/Bulgaricus (Floranex) 1 tab TID PO Last administered on 13:22; Admin Dose 1 TAB; Start 09/26/16 at 21:00; Status Future Hold Atorvastatin Calcium (Lipitor) 20 mg QHS GTB Last administered on 10/05/16 21: 42; Admin Dose 20 MG; Start 09/28/16 at 21:00; Status Future Hold Finasteride (Proscar) 5 mg DAILY GTB Last administered on 10/06/16 09:12; Admin Dose 5 MG; Start 09/29/16 at 09:00; Status Future Hold Multivitamins Therapeutic (Theragran) 1 tab DAILY GTB Last administered on 09:12; Admin Dose 1 TAB; Start 09/29/16 at 09:00; Status Future Hold Zinc Sulfate (Zinc Sulfate) 220 mg DAILY NGT Last administered on 10/06/16 09: 13; Admin Dose 220 MG; Start 09/29/16 at 09:00; Status Future Hold Insulin Aspart (Novolog Insulin Pen) NOVOLOG *MILD* ALGORI... Q6 SC ; Start at 18:00 Ondansetron HCl (Zofran Inj) 4 mg Q6H PRN IV NAUSEA AND/OR VOMITING Last administered on 10/05/16 17:42; Admin Dose 4 MG; Start 09/29/16 at 07:30 Heparin Sodium (Porcine) (Heparin (5000 Units/0.5 ml)) 5,000 unit BID SC Last administered on 10/09/16 09:02; Admin Dose 5,000 UNIT; Start 09/29/16 at 09:00 Acetaminophen 650 mg 650 mg Q6H PRN GTB PAIN AND OR ELEVATED TEMP Last administered on 10/04/16 21:27; Admin Dose 650 MG; Start 10/02/16 at 08:00 Metronidazole (Flagyl 500 Mg (Pmx)) 100 ml @ 100 mls/hr Q8 IVPB Last administered on 10/09/16 05:58; Admin Dose 100 MLS/HR; Start 10/02/16 at 14:00 Midodrine (Proamatine) 10 mg TID@,,17 PO Last administered on 10/06/16 17: 15; Admin Dose 10 MG; Start 10/06/16 at 01:00; Status Future Hold Mupirocin 1 applic 1 applic BID TOP Last administered on 10/09/16 08:57; Admin Dose 1 APPLIC; Start 10/06/16 at 21:00 Sodium Bicarbonate 100 meq/Dextrose 1,100 ml @ 80 mls/hr [id number] IV Last administered on 10/09/16 08:56; Admin Dose 80 MLS/HR; Start 10/06/16 at 11:00 Meropenem 100 ml @ 200 mls/hr Q12 IVPB Last administered on 10/09/16 08:57; Admin Dose 200 MLS/HR; Start 10/06/16 at 14:00 Norepinephrine 16 mg/Dextrose 500 ml @ 1.87 mls/hr TITRATE IV Last administered on 10/07/16 14:42; Admin Dose 9.37 MLS/HR; Start 10/06/16 at 16:30 Linezolid (Zyvox 600mg/D5W (Pmx)) 300 ml @ 300 mls/hr Q12 IVPB Last administered on 10/09/16 09:43; Admin Dose 300 MLS/HR; Start 10/06/16 at 21:00 Levothyroxine Sodium (Synthroid Iv) 12.5 mcg DAILY@06 IV Last administered on 05:59; Admin Dose 12.5 MCG; Start 10/07/16 at 06:00 Metoclopramide HCl (Reglan) 5 mg Q8 IV Last administered on 10/09/16 05:59; Admin Dose 5 MG; Start 10/06/16 at 22:00 Voriconazole 200 mg 200 mg BID PO Last administered on 10/09/16 08:57; Admin Dose 200 MG; Start 10/08/16 at 21:00 Potassium Chloride (KCl 40 MEQ/250 ML NS) 250 ml @ 62.5 mls/hr ONCE ONCE IVPB Last administered on 10/09/16 08:56; Admin Dose 62.5 MLS/HR; Start 10/09/16 at 07:30; Stop 10/09/16 at 11:29 MAGGIE DINERO MD Oct 09, 2016 10:25
--- NOTE | 2016-10-09 12:27 | CONS ---
Date/Time of Note Date/Time of Note DATE: 10/09/16 TIME: 12:26 Assessment/Plan Assessment/Plan Additional Assessment/Plan Severe septic shock Preserved ejection fraction Moderate aortic stenosis Respiratory failure Coronary artery disease Anemia, worsening Acute kidney injury -Titrate IV pressor to maintain SBP greater than 90 and/or map above 60, IV fluids as per nephrology colleague. Potassium supplementation has already been ordered. Continue to hold any antihypertensives and nephrotoxic medications. Consultation Date/Type/Reason Admit Date/Time Sep 24, 2016 at 03:19 Initial Consult Date 09/24/16 Type of Consultation: cv Referring Provider: ROULA DEL TORO 24 HR Interval Summary Free Text/Dictation Patient seen and examined, no new cardiac issues as per nursing staff Exam/Review of Systems Vital Signs Vitals Vital Signs Date Time Temp Pulse Resp B/P Pulse Ox O2 Delivery O2 Flow Rate FiO2 10/09/16 10:38 100 16 98 30 10/09/16 06:00 111/49 Mechanical Ventilator 10/09/16 04:00 101.2 Intake and Output 10/08/16 10/08/16 10/09/16 15:00 23:00 07:00 Intake Total 1091.87 ml 1105.00 ml 826.87 ml Output Total 925 ml 800 ml 350 ml Balance 166.87 ml 305.00 ml 476.87 ml Exam No apparent distress Head: normocephalic Neck: other (Tracheostomy) Respiratory: other (Coarse breath sounds bilaterally, no wheezing) Cardiovascular: other (S1-S2 heard), regular rate and rhythm Gastrointestinal: bowel sounds, non-tender, other (No grimacing with palpation) , soft Extremities: edema, other (No cyanosis) Results Result Diagram: 10/09/16 0430 10/09/16 0430 Results 24 hrs Laboratory Tests Test 10/08/16 17:49 10/08/16 23:57 10/09/16 04:30 10/09/16 05:56 Bedside Glucose 90 107 106 White Blood Count 18.6 #H Red Blood Count 3.58 L Hemoglobin 8.9 L Hematocrit 29.6 L Mean Corpuscular Volume 82.7 Mean Corpuscular Hemoglobin 24.9 L Mean Corpuscular Hemoglobin Concent 30.1 L Red Cell Distribution Width 20.0 H Platelet Count 409 Mean Platelet Volume 10.7 H Neutrophils % 81.1 H Lymphocytes % 10.3 L Monocytes % 6.1 Eosinophils % 0.9 Basophils % 0.3 Nucleated Red Blood Cells % 0.0 Neutrophils # 15.1 H Lymphocytes # 1.9 Monocytes # 1.1 H Eosinophils # 0.2 Basophils # 0.1 Nucleated Red Blood Cells # 0.0 Sodium Level 136 Potassium Level 3.1 L Chloride Level 106 Carbon Dioxide Level 18 L Anion Gap 15 Blood Urea Nitrogen 45 #H Creatinine 1.85 H Glucose Level 105 Calcium Level 7.4 L Phosphorus Level 5.1 H Magnesium Level 1.8 Medications Medications Current Medications Acetaminophen (Tylenol Supp) 650 mg Q4H PRN [place] PAIN LEVEL 1-3 OR FEVER; Start 09/24/16 at 03:00 Eye Lubricant (Artificial Tears Oph) 1 drop TID BOTH EYES Last administered on 10/09/16 08:57; Admin Dose 1 DROP; Start 09/24/16 at 09:00 Sodium Hypochlorite (Dakin'S (1/4 Strength)) 1 applic BID IRR Last administered on 10/09/16 08:58; Admin Dose 1 APPLIC; Start 09/24/16 at 21:00 Pantoprazole (Protonix Iv) 40 mg BID@06,18 IV Last administered on 10/09/16 05: 58; Admin Dose 40 MG; Start 09/24/16 at 18:00 Collagenase (Santyl) 1 applic DAILY TOP Last administered on 10/09/16 08:58; Admin Dose 1 APPLIC; Start 09/24/16 at 20:30 Miscellaneous Information 1 ea NOTE XX ; Start 09/24/16 at 21:00 Glucose (Glutose) 15 gm Q15M PRN PO DECREASED GLUCOSE; Start 09/24/16 at 21:00 Glucose (Glutose) 22.5 gm Q15M PRN PO DECREASED GLUCOSE; Start 09/24/16 at 21: 00 Dextrose (D50w Syringe) 25 ml Q15M PRN IV DECREASED GLUCOSE; Start 09/24/16 at 21:00 Dextrose (D50w Syringe) 50 ml Q15M PRN IV DECREASED GLUCOSE; Start 09/24/16 at 21:00 Glucagon (Glucagen) 1 mg Q15M PRN IM DECREASED GLUCOSE; Start 09/24/16 at 21:00 Glucose 15 gm 15 gm Q15M PRN BUCCAL DECREASED GLUCOSE; Start 09/24/16 at 21:00 Acetaminophen (Ofirmev 1000mg/ 100ml Iv) 100 ml @ 400 mls/hr Q6H PRN IVPB FEVER Last administered on 10/07/16 17:14; Admin Dose 400 MLS/HR; Start at 22:00 Vancomycin HCl (Vancomycin Oral Syringe) 250 mg Q6 PO Last administered on 17:15; Admin Dose 250 MG; Start 09/26/16 at 18:00; Status Future Hold Lactobacillus Acidoph/Bulgaricus (Floranex) 1 tab TID PO Last administered on 13:22; Admin Dose 1 TAB; Start 09/26/16 at 21:00; Status Future Hold Atorvastatin Calcium (Lipitor) 20 mg QHS GTB Last administered on 10/05/16 21: 42; Admin Dose 20 MG; Start 09/28/16 at 21:00; Status Future Hold Finasteride (Proscar) 5 mg DAILY GTB Last administered on 10/06/16 09:12; Admin Dose 5 MG; Start 09/29/16 at 09:00; Status Future Hold Multivitamins Therapeutic (Theragran) 1 tab DAILY GTB Last administered on 09:12; Admin Dose 1 TAB; Start 09/29/16 at 09:00; Status Future Hold Zinc Sulfate (Zinc Sulfate) 220 mg DAILY NGT Last administered on 10/06/16 09: 13; Admin Dose 220 MG; Start 09/29/16 at 09:00; Status Future Hold Insulin Aspart (Novolog Insulin Pen) NOVOLOG *MILD* ALGORI... Q6 SC ; Start at 18:00 Ondansetron HCl (Zofran Inj) 4 mg Q6H PRN IV NAUSEA AND/OR VOMITING Last administered on 10/05/16 17:42; Admin Dose 4 MG; Start 09/29/16 at 07:30 Heparin Sodium (Porcine) (Heparin (5000 Units/0.5 ml)) 5,000 unit BID SC Last administered on 10/09/16 09:02; Admin Dose 5,000 UNIT; Start 09/29/16 at 09:00 Acetaminophen 650 mg 650 mg Q6H PRN GTB PAIN AND OR ELEVATED TEMP Last administered on 10/04/16 21:27; Admin Dose 650 MG; Start 10/02/16 at 08:00 Metronidazole (Flagyl 500 Mg (Pmx)) 100 ml @ 100 mls/hr Q8 IVPB Last administered on 10/09/16 05:58; Admin Dose 100 MLS/HR; Start 10/02/16 at 14:00 Midodrine (Proamatine) 10 mg TID@,,17 PO Last administered on 10/06/16 17: 15; Admin Dose 10 MG; Start 10/06/16 at 01:00; Status Future Hold Mupirocin 1 applic 1 applic BID TOP Last administered on 10/09/16 08:57; Admin Dose 1 APPLIC; Start 10/06/16 at 21:00 Sodium Bicarbonate 100 meq/Dextrose 1,100 ml @ 80 mls/hr [id number] IV Last administered on 10/09/16 08:56; Admin Dose 80 MLS/HR; Start 10/06/16 at 11:00 Meropenem 100 ml @ 200 mls/hr Q12 IVPB Last administered on 10/09/16 08:57; Admin Dose 200 MLS/HR; Start 10/06/16 at 14:00 Norepinephrine 16 mg/Dextrose 500 ml @ 1.87 mls/hr TITRATE IV Last administered on 10/07/16 14:42; Admin Dose 9.37 MLS/HR; Start 10/06/16 at 16:30 Linezolid (Zyvox 600mg/D5W (Pmx)) 300 ml @ 300 mls/hr Q12 IVPB Last administered on 10/09/16 09:43; Admin Dose 300 MLS/HR; Start 10/06/16 at 21:00 Levothyroxine Sodium (Synthroid Iv) 12.5 mcg DAILY@06 IV Last administered on 05:59; Admin Dose 12.5 MCG; Start 10/07/16 at 06:00 Metoclopramide HCl (Reglan) 5 mg Q8 IV Last administered on 10/09/16 05:59; Admin Dose 5 MG; Start 10/06/16 at 22:00 Voriconazole (Vfend) 200 mg BID PO Last administered on 10/09/16 08:57; Admin Dose 200 MG; Start 4/4/17 at 21:00 Ryder Wild DO Oct 09, 2016 12:27
--- NOTE | 2016-10-09 12:54 | PN ---
DATE: 10/09/2016 PALLIATIVE CARE PROGRESS NOTE There has been no change in gentleman's overall clinical condition. Yesterday when we spoke to through an freight car loader, she made it very clear she want to continue with everything. Before I arri gayathri today, she also had a conversation with nursing staff and told them that he has prior told her t hat he would want to live. OBJECTIVE: VITAL SIGNS: Blood pressure 114/49, pulse of 103, respirations of 28, temperature of 101.1, 98% sat uration on 30% FIO2. NEUROLOGICAL: He does not respond to any verbal or tactile stimulation. COR: S1, S2, without S3, S4, murmur, gallop, rub. Normal rate, normal rhythm. ABDOMEN: Grossly benign. LABORATORY DATA: White blood cell count of 18.6, hemoglobin 8.9, hematocrit 29.6, MCV of 82.7 plate let count. Serum sodium 136, potassium 3.1, chloride 106, bicarbonate 18, BUN of 45, creatinine 1.85 . ASSESSMENT AND PLAN: I will have another conversation with Ms Wise tomorrow and discuss with her w hether or not her would want to remain in this condition as compared to live a normal health y life. Other medical problems including sepsis, infected stable decubitus, respiratory failure sta tus-post trach on vent, mental status changes, delirium on top of dementia. He is being followed by the hospitalists. Dictated By: SITA OCONNOR MD LP/NTS Conf#: [id number] DID#: [id number]
--- NOTE | 2016-10-09 13:17 | PN ---
Date/Time of Note Date/Time of Note DATE: 10/09/16 TIME: 13:11 Assessment/Plan VTE Prophylaxis VTE Prophylaxis Intervention: SCD's Lines/Catheters IV Catheter Type (from Nrs): Central Line Central line still needed: Yes Urinary Cath still in place: Yes Reason Cath still needed: urinary retention Assessment/Plan Chief Complaint/Hosp Course Problems: Assessment/Plan Assessment/Plan * Severe sepsis with septic shock 2/2 Decub ulcers and/or UTI and/or PNA * Ileus. is shown on KUB from 10-08-16/improved * Anemia * secondary to GI bleed (Coffee ground drainage from G tube) * Multifocal pneumonia (E coli / A baumani * Encephalopathy acute on chronic with non verbal baseline 2/2 prev CVA with L sided hemiparesis and severe dementia * Dysphagia: tube feed dependent on PEG * Acute renal failure 2/2 ATN from dehydration: improved * Severe multiple pressure ulcers infected with multiple organisms including MRSA * Chronic resp failure ventilator dependent Via tracheostomy PLAN: 1. resume tube feeding 2. continue Reglan due to his recent h/o ileus 3 continue Protonix bid dosing 4 abdominal series 6 continue present management Subjective 24 Hr Interval Summary Free Text/Dictation * course reviewed with nurse * patient seen and examined * G tube minimal output 30 cc greenish,no blood * still on pressors * 10/08/2016 Abdominal series * 1. Small bowel ileus pattern is decreased over interval, and recommend close radiographic follow up. 2. G tube again projects over left upper quadrant. 3. Large left pleural effusion. Exam/Review of Systems Vital Signs Vitals Vital Signs Date Time Temp Pulse Resp B/P Pulse Ox O2 Delivery O2 Flow Rate FiO2 10/09/16 10:38 100 16 98 30 10/09/16 06:00 111/49 Mechanical Ventilator 10/09/16 04:00 101.2 Intake and Output 10/08/16 10/08/16 10/09/16 15:00 23:00 07:00 Intake Total 1091.87 ml 1105.00 ml 826.87 ml Output Total 925 ml 800 ml 350 ml Balance 166.87 ml 305.00 ml 476.87 ml Exam Constitutional: frail Respiratory: clear to auscultation, diminished breath sounds, other (trach to vent) Cardiovascular: regular rate and rhythm Gastrointestinal: distended, non-tender, soft Skin: other (multiple decubitus ulcer) Results Result Diagram: 10/09/16 0430 10/09/16 0430 Results 24 hrs Laboratory Tests Test 10/08/16 17:49 10/08/16 23:57 10/09/16 04:30 10/09/16 05:56 Bedside Glucose 90 107 106 White Blood Count 18.6 #H Red Blood Count 3.58 L Hemoglobin 8.9 L Hematocrit 29.6 L Mean Corpuscular Volume 82.7 Mean Corpuscular Hemoglobin 24.9 L Mean Corpuscular Hemoglobin Concent 30.1 L Red Cell Distribution Width 20.0 H Platelet Count 409 Mean Platelet Volume 10.7 H Neutrophils % 81.1 H Lymphocytes % 10.3 L Monocytes % 6.1 Eosinophils % 0.9 Basophils % 0.3 Nucleated Red Blood Cells % 0.0 Neutrophils # 15.1 H Lymphocytes # 1.9 Monocytes # 1.1 H Eosinophils # 0.2 Basophils # 0.1 Nucleated Red Blood Cells # 0.0 Sodium Level 136 Potassium Level 3.1 L Chloride Level 106 Carbon Dioxide Level 18 L Anion Gap 15 Blood Urea Nitrogen 45 #H Creatinine 1.85 H Glucose Level 105 Calcium Level 7.4 L Phosphorus Level 5.1 H Magnesium Level 1.8 Test 10/09/16 13:00 Bedside Glucose 133 Medications Medications Current Medications Acetaminophen (Tylenol Supp) 650 mg Q4H PRN [place] PAIN LEVEL 1-3 OR FEVER; Start 09/24/16 at 03:00 Eye Lubricant (Artificial Tears Oph) 1 drop TID BOTH EYES Last administered on 10/09/16 13:02; Admin Dose 1 DROP; Start 09/24/16 at 09:00 Sodium Hypochlorite (Dakin'S (1/4 Strength)) 1 applic BID IRR Last administered on 10/09/16 08:58; Admin Dose 1 APPLIC; Start 09/24/16 at 21:00 Pantoprazole (Protonix Iv) 40 mg BID@06,18 IV Last administered on 10/09/16 05: 58; Admin Dose 40 MG; Start 09/24/16 at 18:00 Collagenase (Santyl) 1 applic DAILY TOP Last administered on 10/09/16 08:58; Admin Dose 1 APPLIC; Start 09/24/16 at 20:30 Miscellaneous Information 1 ea NOTE XX ; Start 09/24/16 at 21:00 Glucose (Glutose) 15 gm Q15M PRN PO DECREASED GLUCOSE; Start 09/24/16 at 21:00 Glucose (Glutose) 22.5 gm Q15M PRN PO DECREASED GLUCOSE; Start 09/24/16 at 21: 00 Dextrose (D50w Syringe) 25 ml Q15M PRN IV DECREASED GLUCOSE; Start 09/24/16 at 21:00 Dextrose (D50w Syringe) 50 ml Q15M PRN IV DECREASED GLUCOSE; Start 09/24/16 at 21:00 Glucagon (Glucagen) 1 mg Q15M PRN IM DECREASED GLUCOSE; Start 09/24/16 at 21:00 Glucose 15 gm 15 gm Q15M PRN BUCCAL DECREASED GLUCOSE; Start 09/24/16 at 21:00 Acetaminophen (Ofirmev 1000mg/ 100ml Iv) 100 ml @ 400 mls/hr Q6H PRN IVPB FEVER Last administered on 10/07/16 17:14; Admin Dose 400 MLS/HR; Start at 22:00 Vancomycin HCl (Vancomycin Oral Syringe) 250 mg Q6 PO Last administered on 17:15; Admin Dose 250 MG; Start 09/26/16 at 18:00; Status Future Hold Lactobacillus Acidoph/Bulgaricus (Floranex) 1 tab TID PO Last administered on 13:22; Admin Dose 1 TAB; Start 09/26/16 at 21:00; Status Future Hold Atorvastatin Calcium (Lipitor) 20 mg QHS GTB Last administered on 10/05/16 21: 42; Admin Dose 20 MG; Start 09/28/16 at 21:00; Status Future Hold Finasteride (Proscar) 5 mg DAILY GTB Last administered on 10/06/16 09:12; Admin Dose 5 MG; Start 09/29/16 at 09:00; Status Future Hold Multivitamins Therapeutic (Theragran) 1 tab DAILY GTB Last administered on 09:12; Admin Dose 1 TAB; Start 09/29/16 at 09:00; Status Future Hold Zinc Sulfate (Zinc Sulfate) 220 mg DAILY NGT Last administered on 10/06/16 09: 13; Admin Dose 220 MG; Start 09/29/16 at 09:00; Status Future Hold Insulin Aspart (Novolog Insulin Pen) NOVOLOG *MILD* ALGORI... Q6 SC ; Start at 18:00 Ondansetron HCl (Zofran Inj) 4 mg Q6H PRN IV NAUSEA AND/OR VOMITING Last administered on 10/05/16 17:42; Admin Dose 4 MG; Start 09/29/16 at 07:30 Heparin Sodium (Porcine) (Heparin (5000 Units/0.5 ml)) 5,000 unit BID SC Last administered on 10/09/16 09:02; Admin Dose 5,000 UNIT; Start 09/29/16 at 09:00 Acetaminophen 650 mg 650 mg Q6H PRN GTB PAIN AND OR ELEVATED TEMP Last administered on 10/04/16 21:27; Admin Dose 650 MG; Start 10/02/16 at 08:00 Metronidazole (Flagyl 500 Mg (Pmx)) 100 ml @ 100 mls/hr Q8 IVPB Last administered on 10/09/16 05:58; Admin Dose 100 MLS/HR; Start 10/02/16 at 14:00 Midodrine (Proamatine) 10 mg TID@09,13,17 PO Last administered on 10/06/16 17: 15; Admin Dose 10 MG; Start 10/06/16 at 01:00; Status Future Hold Mupirocin 1 applic 1 applic BID TOP Last administered on 10/09/16 08:57; Admin Dose 1 APPLIC; Start 10/06/16 at 21:00 Sodium Bicarbonate 100 meq/Dextrose 1,100 ml @ 80 mls/hr [id number] IV Last administered on 10/09/16 08:56; Admin Dose 80 MLS/HR; Start 10/06/16 at 11:00 Meropenem 100 ml @ 200 mls/hr Q12 IVPB Last administered on 10/09/16 08:57; Admin Dose 200 MLS/HR; Start 10/06/16 at 14:00 Norepinephrine 16 mg/Dextrose 500 ml @ 1.87 mls/hr TITRATE IV Last administered on 10/07/16 14:42; Admin Dose 9.37 MLS/HR; Start 10/06/16 at 16:30 Linezolid (Zyvox 600mg/D5W (Pmx)) 300 ml @ 300 mls/hr Q12 IVPB Last administered on 10/09/16 09:43; Admin Dose 300 MLS/HR; Start 10/06/16 at 21:00 Levothyroxine Sodium (Synthroid Iv) 12.5 mcg DAILY@06 IV Last administered on 05:59; Admin Dose 12.5 MCG; Start 10/07/16 at 06:00 Metoclopramide HCl (Reglan) 5 mg Q8 IV Last administered on 10/09/16 13:02; Admin Dose 5 MG; Start 10/06/16 at 22:00 Voriconazole (Vfend) 200 mg BID PO Last administered on 10/09/16 08:57; Admin Dose 200 MG; Start 10/08/16 at 21:00 JOSEF CASTRO MD Oct 09, 2016 13:17
--- NOTE | 2016-10-09 14:07 | PN ---
DATE: 10/09/2016 SUBJECTIVE: The patient himself is not communicative. He does have large penoscrotal edema and has an indwelling Cee catheter and urinary tract infection. OBJECTIVE: VITAL SIGNS: Temperature is 101.2, the pulse is 100, respirations 16, blood pressure 111/49. GENITOURINARY: The Cee catheter that he has is draining clear urine. The scrotum and penis are v emily still swollen and edematous. LABORATORY DATA: CBC shows his white count has come down to 18.6 from 26,000, and that was even bef ore up to 48.9, hemoglobin 8.9, hematocrit 29.6. Urine culture showed yeast. BUN is 45, creatinine 1.85, sodium 136, potassium 3.1, chloride 106, CO2 18. IMPRESSION: Penoscrotal edema. PLAN: Continue to elevate the scrotum on a towel all the time, and continue him on antibiotic. He is on Voriconazole, linezolid, and also meropenem. Dictated By: MISHEL WOODWARD/ELIZABETH Conf#: [id number] DID#: [id number]
--- NOTE | 2016-10-09 14:09 | PN ---
DATE: 10/09/2016 SUBJECTIVE: No acute changes. The patient is more awake, still on Levophed drip, spiked a fever at 4:00 a.m. of 101.2. He is in no distress. LABORATORY DATA: WBC today 18.6, H and H 8.9 and 29.6, platelets 409, neutrophils 81.1, no bands. BUN 45, creatinine 1.85. MICROBIOLOGY: Urine culture growing Teresita glabrata. Blood cultures remain negative. INDWELLINGS: Trach, PEG, Cee, rectal tube, left subclavian triple-lumen catheter. ANTIMICROBIALS: The patient is on: 1. Voriconazole. 2. Topical Bactroban to nares. 3. Zyvox 4. Merrem. 5. Flagyl. 6. Oral vancomycin. PHYSICAL EXAMINATION: GENERAL: This is a chronically ill-appearing, wasted elderly man who looks comfortable. HEENT: Head atraumatic, normocephalic. Sclerae anicteric. Buccal mucosa dry. NECK: Supple. Tracheostomy present. CHEST: Rise symmetrical. Breath sounds diminished at the bases. HEART: S1, S2. ABDOMEN: Soft, bowel sounds present. EXTREMITIES: Without cyanosis. SKIN: With multiple chronic wounds. ASSESSMENT: 1. Septic shock. 2. Healthcare-associated pneumonia. 3. 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 4. Teresita glabrata urinary tract infection. 5. Status post Escherichia coli and Bacteroides fragilis bacteremia on admission with repeat blood cultures being negative. 6. History of severe pseudomembranous colitis. 7. History of cerebrovascular accident. 8. Ileus. PLAN: The patient remains hemodynamically unstable. Gastroenterology is on case, tube feeding on h old for now. He is on Reglan, pending EGD family agrees pending abdominal series. Dictated By: CHRISTOPHER MCDONOUGH INHALATION THERAPY TEACHER for YAQUELIN SMYTH/ELIZABETH Conf#: [id number] DID#: [id number]
--- NOTE | 2016-10-09 14:39 | CONS ---
Date/Time of Note Date/Time of Note DATE: 10/09/16 TIME: 14:39 Assessment/Plan Assessment/Plan Chief Complaint/Hosp Course ANEMIA - NEAR- MICROCYTIC WITH INCREASED RDW DROP H/H DURING HOSPITALIZATION + ACD TRANSFUSE PRBC TO KEEP HB MORE THAN 8 TRANSFUSE NEEDED GI F-UP Stool OB, negative Monitor H&H every 8 hours, transfuse 2 units for hemoglobin less than 8 Continue PPI drips EGD PER [facility] LEUKOCYTOSIS- REACTIVE CONT ATB FOR SEPSIS THROMBOCYTOSIS REACTIVE SHOULD IMPROVE WITH RESOLUTION OF SEPSIS Severe sepsis with septic shock 2/2 Decub ulcers and/or UTI and/or PNA: stable, off pressor support Severe hypernatremic dehydration Acute renal failure 2/2 ATN from dehydration UTI Multifocal pneumonia Encephalopathy ?acute versus acute on chronic (baseline unknown) Hypokalemia Problems: Consultation Date/Type/Reason Admit Date/Time Sep 24, 2016 at 03:19 Initial Consult Date 09/24/16 Type of Consultation: hemeonc Referring Provider: ROULA DEL TORO 24 HR Interval Summary Free Text/Dictation all noted no bleeding count reviewed Exam/Review of Systems Vital Signs Vitals Vital Signs Date Time Temp Pulse Resp B/P Pulse Ox O2 Delivery O2 Flow Rate FiO2 10/09/16 10:38 100 16 98 30 10/09/16 06:00 111/49 Mechanical Ventilator 10/09/16 04:00 101.2 Intake and Output 10/08/16 10/08/16 10/09/16 15:00 23:00 07:00 Intake Total 1091.87 ml 1105.00 ml 921.87 ml Output Total 925 ml 800 ml 390 ml Balance 166.87 ml 305.00 ml 531.87 ml Exam Constitutional: No alert, No oriented Psych: No nl mood/affect Head: atraumatic, normocephalic Eyes: nl conjunctiva, No EOMI, No icteric ENMT: mucosa pink and moist, nl external ears & nose Neck: jvd, other (Trach in place), No non-tender, No supple Respiratory: No congested cough, No labored breathing Cardiovascular: No regular rate and rhythm Gastrointestinal: non-tender, other (PEG in place), soft, No rebound or guarding Musculoskeletal: No joint tenderness, No nl extremities to inspection, No nl gait and stance Extremities: No calf tenderness, No cyanosis Neurological: No nl mental status, No nl speech, No nl strength Skin: rash or lesions (Multiple decubitus ulcerations with debris, necrotic tissue, deep tissue injury), No diaphoresis, No nl turgor Lymph: nontender Results Result Diagram: 10/09/16 0430 10/09/16 0430 Results 24 hrs Laboratory Tests Test 10/08/16 17:49 10/08/16 23:57 10/09/16 04:30 10/09/16 05:56 Bedside Glucose 90 107 106 White Blood Count 18.6 #H Red Blood Count 3.58 L Hemoglobin 8.9 L Hematocrit 29.6 L Mean Corpuscular Volume 82.7 Mean Corpuscular Hemoglobin 24.9 L Mean Corpuscular Hemoglobin Concent 30.1 L Red Cell Distribution Width 20.0 H Platelet Count 409 Mean Platelet Volume 10.7 H Neutrophils % 81.1 H Lymphocytes % 10.3 L Monocytes % 6.1 Eosinophils % 0.9 Basophils % 0.3 Nucleated Red Blood Cells % 0.0 Neutrophils # 15.1 H Lymphocytes # 1.9 Monocytes # 1.1 H Eosinophils # 0.2 Basophils # 0.1 Nucleated Red Blood Cells # 0.0 Sodium Level 136 Potassium Level 3.1 L Chloride Level 106 Carbon Dioxide Level 18 L Anion Gap 15 Blood Urea Nitrogen 45 #H Creatinine 1.85 H Glucose Level 105 Calcium Level 7.4 L Phosphorus Level 5.1 H Magnesium Level 1.8 Test 10/09/16 13:00 Bedside Glucose 133 Medications Medications Current Medications Acetaminophen (Tylenol Supp) 650 mg Q4H PRN [place] PAIN LEVEL 1-3 OR FEVER; Start 09/24/16 at 03:00 Eye Lubricant (Artificial Tears Oph) 1 drop TID BOTH EYES Last administered on 10/09/16 13:02; Admin Dose 1 DROP; Start 09/24/16 at 09:00 Sodium Hypochlorite (Dakin'S (1/4 Strength)) 1 applic BID IRR Last administered on 10/09/16 08:58; Admin Dose 1 APPLIC; Start 09/24/16 at 21:00 Pantoprazole (Protonix Iv) 40 mg BID@06,18 IV Last administered on 10/09/16 05: 58; Admin Dose 40 MG; Start 09/24/16 at 18:00 Collagenase (Santyl) 1 applic DAILY TOP Last administered on 10/09/16 08:58; Admin Dose 1 APPLIC; Start 09/24/16 at 20:30 Miscellaneous Information 1 ea NOTE XX ; Start 09/24/16 at 21:00 Glucose (Glutose) 15 gm Q15M PRN PO DECREASED GLUCOSE; Start 09/24/16 at 21:00 Glucose (Glutose) 22.5 gm Q15M PRN PO DECREASED GLUCOSE; Start 09/24/16 at 21: 00 Dextrose (D50w Syringe) 25 ml Q15M PRN IV DECREASED GLUCOSE; Start 09/24/16 at 21:00 Dextrose (D50w Syringe) 50 ml Q15M PRN IV DECREASED GLUCOSE; Start 09/24/16 at 21:00 Glucagon (Glucagen) 1 mg Q15M PRN IM DECREASED GLUCOSE; Start 09/24/16 at 21:00 Glucose 15 gm 15 gm Q15M PRN BUCCAL DECREASED GLUCOSE; Start 09/24/16 at 21:00 Acetaminophen (Ofirmev 1000mg/ 100ml Iv) 100 ml @ 400 mls/hr Q6H PRN IVPB FEVER Last administered on 10/07/16 17:14; Admin Dose 400 MLS/HR; Start at 22:00 Vancomycin HCl (Vancomycin Oral Syringe) 250 mg Q6 PO Last administered on 17:15; Admin Dose 250 MG; Start 09/26/16 at 18:00; Status Future Hold Lactobacillus Acidoph/Bulgaricus (Floranex) 1 tab TID PO Last administered on 13:22; Admin Dose 1 TAB; Start 09/26/16 at 21:00; Status Future Hold Atorvastatin Calcium (Lipitor) 20 mg QHS GTB Last administered on 10/05/16 21: 42; Admin Dose 20 MG; Start 09/28/16 at 21:00; Status Future Hold Finasteride (Proscar) 5 mg DAILY GTB Last administered on 10/06/16 09:12; Admin Dose 5 MG; Start 09/29/16 at 09:00; Status Future Hold Multivitamins Therapeutic (Theragran) 1 tab DAILY GTB Last administered on 09:12; Admin Dose 1 TAB; Start 09/29/16 at 09:00; Status Future Hold Zinc Sulfate (Zinc Sulfate) 220 mg DAILY NGT Last administered on 10/06/16 09: 13; Admin Dose 220 MG; Start 09/29/16 at 09:00; Status Future Hold Insulin Aspart (Novolog Insulin Pen) NOVOLOG *MILD* ALGORI... Q6 SC ; Start at 18:00 Ondansetron HCl (Zofran Inj) 4 mg Q6H PRN IV NAUSEA AND/OR VOMITING Last administered on 10/05/16 17:42; Admin Dose 4 MG; Start 09/29/16 at 07:30 Heparin Sodium (Porcine) (Heparin (5000 Units/0.5 ml)) 5,000 unit BID SC Last administered on 10/09/16 09:02; Admin Dose 5,000 UNIT; Start 09/29/16 at 09:00 Acetaminophen 650 mg 650 mg Q6H PRN GTB PAIN AND OR ELEVATED TEMP Last administered on 10/04/16 21:27; Admin Dose 650 MG; Start 10/02/16 at 08:00 Metronidazole (Flagyl 500 Mg (Pmx)) 100 ml @ 100 mls/hr Q8 IVPB Last administered on 10/09/16 14:17; Admin Dose 100 MLS/HR; Start 10/02/16 at 14:00 Midodrine (Proamatine) 10 mg TID@,,17 PO Last administered on 10/06/16 17: 15; Admin Dose 10 MG; Start 10/06/16 at 01:00; Status Future Hold Mupirocin 1 applic 1 applic BID TOP Last administered on 10/09/16 08:57; Admin Dose 1 APPLIC; Start 10/06/16 at 21:00 Sodium Bicarbonate 100 meq/Dextrose 1,100 ml @ 80 mls/hr [id number] IV Last administered on 10/09/16 08:56; Admin Dose 80 MLS/HR; Start 10/06/16 at 11:00 Meropenem 100 ml @ 200 mls/hr Q12 IVPB Last administered on 10/09/16 08:57; Admin Dose 200 MLS/HR; Start 10/06/16 at 14:00 Norepinephrine 16 mg/Dextrose 500 ml @ 1.87 mls/hr TITRATE IV Last administered on 10/07/16 14:42; Admin Dose 9.37 MLS/HR; Start 10/06/16 at 16:30 Linezolid (Zyvox 600mg/D5W (Pmx)) 300 ml @ 300 mls/hr Q12 IVPB Last administered on 10/09/16 09:43; Admin Dose 300 MLS/HR; Start 10/06/16 at 21:00 Levothyroxine Sodium (Synthroid Iv) 12.5 mcg DAILY@06 IV Last administered on 05:59; Admin Dose 12.5 MCG; Start 10/07/16 at 06:00 Metoclopramide HCl (Reglan) 5 mg Q8 IV Last administered on 10/09/16 13:02; Admin Dose 5 MG; Start 10/06/16 at 22:00 Voriconazole (Vfend) 200 mg BID PO Last administered on 10/09/16 08:57; Admin Dose 200 MG; Start 10/08/16 at 21:00 SCOTT RODRIGUES MD Oct 09, 2016 14:39
--- NOTE | 2016-10-09 23:57 | PN ---
Date/Time of Note Date/Time of Note DATE: 10/09/16 TIME: 23:57 Assessment/Plan Lines/Catheters IV Catheter Type (from [facility]): Central Line Cee in Place (from [facility]): Yes Assessment/Plan Chief Complaint/Hosp Course 1. Shock, septic (uti, pna, wound). Improving. -Judicious fluid management -Supportive measures -Antibiotics 2. Multiple decubitus ulcerations with necrotic tissue and deep tissue injury -Offload -Local care -Vitamin C -Eventual nutritional optimization -Debridement when medically cleared 3. Contracted state with functional quadriplegia -Offloading -Nutritional optimization when possible 4. Anemia -Monitor 5. Ventilator dependent respiratory failure -Ventilator management and pulmonary toilet 6. Renal insufficiency -Judicious fluid management -Avoid nephrotoxic agents 7. Coronary artery disease and history of non-ST elevation [place] -Cardiac optimization 8. Vomiting 2nd Ileus -bowel regimen per GI Thank you Problems: Subjective 24 Hr Interval Summary Pressors weaning. Leukocytosis improving. Fevers. No chills. No cough. No seizure. No rash. No blood rectum. No bloating. No seizures. Exam/Review of Systems Vital Signs Vitals Vital Signs Date Time Temp Pulse Resp B/P Pulse Ox O2 Delivery O2 Flow Rate FiO2 10/11/16 14:15 111 21 103/60 96 10/11/16 14:00 Mechanical Ventilator 10/11/16 12:00 98.5 10/11/16 07:40 30 Intake and Output 10/10/16 10/10/16 10/11/16 14:59 22:59 06:59 Intake Total 964.676 ml 1274.65 ml 833.42 ml Output Total 760 ml 370 ml 275 ml Balance 204.676 ml 904.65 ml 558.42 ml Exam Free Text/Dictation Constitutional: No alert, No oriented Psych: No nl mood/affect Head: atraumatic, normocephalic Eyes: nl conjunctiva, No EOMI, No icteric ENMT: mucosa pink and moist, nl external ears & nose Neck: jvd, other (Trach in place), No non-tender, No supple Respiratory: No congested cough, No labored breathing Cardiovascular: No regular rate and rhythm Gastrointestinal: non-tender, other (PEG in place), soft, No rebound or guarding Musculoskeletal: No joint tenderness, No nl extremities to inspection, No nl gait and stance Extremities: No calf tenderness, No cyanosis Neurological: No nl mental status, No nl speech, No nl strength Skin: rash or lesions (Multiple decubitus ulcerations with debris, necrotic tissue, deep tissue injury), No diaphoresis, No nl turgor Lymph: nontender Results Result Diagram: 10/11/16 0440 10/11/16 0440 EVA GUARDADO MD Oct 09, 2016 23:57
[2016-10-10] VITALS (104 sets, daily range): BP systolic 82–124; BP diastolic 39–78; PULSE 105–131; RESP 17–32
[2016-10-10] MEDS: IPRATROPIUM (HFA) 12.9 GM INHALER INH SCH ×4 (02:18→19:28)
[2016-10-10] MEDS: ALBUTEROL HFA 8 GM INHALER INH SCH ×4 (02:18→19:29)
[2016-10-10 05:00] LABS: ADD SCAN DIFF NO
[2016-10-10 05:27] LABS: BASOPHILS % 0.2 % (0.0-2.0); EOSINOPHILS # 0.4 10^3/ul (0.0-0.5); EOSINOPHILS % 3.1 % (0.0-7.0); HEMATOCRIT 28.5 % (42.0-52.0); HEMOGLOBIN 8.5 g/dl (14.0-18.0); LYMPHOCYTES # 1.2 10^3/ul (0.8-2.9); LYMPHOCYTES % 9.6 % (15.0-51.0); MEAN CORPUSCULAR HEMOGLOBIN 25.1 pg (29.0-33.0); MEAN CORPUSCULAR HGB CONC 29.8 g/dl (32.0-37.0); MEAN CORPUSCULAR VOLUME 84.1 fl (82.0-101.0); MEAN PLATELET VOLUME 11.1 fl (7.4-10.4); MONOCYTE # 0.8 10^3/ul (0.3-0.9); MONOCYTES % 6.6 % (0.0-11.0); NEUTROPHIL # 9.8 10^3/ul (1.6-7.5); NEUTROPHILS % 79.4 % (39.0-77.0); PLATELET COUNT 281 10^3/UL (140-415); RED BLOOD COUNT 3.39 10^6/ul (4.70-6.10); RED CELL DISTRIBUTION WIDTH 20.3 % (11.5-14.5); WHITE BLOOD COUNT 12.4 10^3/ul (4.8-10.8)
[2016-10-10 05:28] LABS: POTASSIUM 3.1 mmol/L (3.5-5.1)
[2016-10-10 05:29] LABS: MAGNESIUM 1.6 mg/dl (1.7-2.5); PHOSPHORUS 4.6 mg/dl (2.5-4.9)
[2016-10-10 05:31] LABS: CALCIUM 7.2 mg/dl (8.4-10.2); CREATININE 1.27 mg/dl (0.61-1.24)
[2016-10-10] MEDS ORDERED: MAGNESIUM SULFATE 2 GM/50 ML 50 ML IVPB ONE (06:00)
[2016-10-10] MEDS: INSULIN ASPART [NOVOLOG] 3 ML PEN SC SCH ×4 (06:00→18:00)
[2016-10-10] MEDS ORDERED: POTASSIUM CHLORIDE 250 ML IVPB ONE (06:00)
[2016-10-10] MEDS: PANTOPRAZOLE 40 MG INJ IV SCH ×2 (06:40→18:06)
[2016-10-10] MEDS: LEVOTHYROXINE 100 MCG VIAL IV SCH (06:40)
[2016-10-10] MEDS: metroNIDAZOLE 500 MG/NS (PMX) 100 ML IVPB SCH ×3 (06:40→23:02)
[2016-10-10] MEDS: METOCLOPRAMIDE 10 MG INJ IV SCH ×3 (06:41→22:57)
--- NOTE | 2016-10-10 09:21 | PN ---
Date/Time of Note Date/Time of Note DATE: 10/10/16 TIME: 09:19 Assessment/Plan VTE Prophylaxis VTE Prophylaxis Intervention: heparin Lines/Catheters IV Catheter Type (from Nrs): Central Line Central line still needed: Yes Urinary Cath still in place: Yes Reason Cath still needed: skin wounds contaminated by urine Assessment/Plan Chief Complaint/Hosp Course 1. Sepsis with underlying septic shock secondary to infected sacral decubitus wound. The wound culture has been positive for Klebsiella pneumoniae, Acinetobacter baumannii, vancomycin-resistant Enterococcus and Staph aureus. Continue antimicrobials as per infectious diseases. Wean off IV pressors as tolerated. 2. Infected sacral decubitus ulcer. Continue pain management. Continue local dressing changes as per wound care consultants. 3. Chronic respiratory failure. Status post tracheostomy and vent dependent. Continue inhaled bronchodilators. Pulmonary following the patient. 4. Acute renal failure. Most probably secondary to hemodynamics versus from acute tubular necrosis. Continue to use nephrotoxic medications with caution. 5. 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 Continue antimicrobials as per ID. 6. 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 Continue supportive care. 7. Hypothyroidism. Continue Synthroid. 8. Dysphagia secondary to encephalopathy. Continue aspiration precautions. Continue G tube feedings. 9. Normocytic anemia. Continue to monitor the H and H closely. Transfuse as needed. 10. Leukocytosis with thrombocytosis. The patient being followed by Hematology. Continue to monitor. 11. Ileus. Tube feedings on hold. Continue Reglan. Being followed by gastroenterology and Surgery. 12. Moderate . Continue monitoring. 13. DVT prophylaxis. Subcutaneous heparin. 14. Gastrointestinal prophylaxis. Proton pump inhibitors. 15 Fluid, electrolytes and nutrition. G tube feedings on hold. IVFs as per nephrology. 16. Gastrointestinal prophylaxis. Proton pump inhibitors. PLAN: 1. Continue ICU monitoring. 2. Replete potassium and magnesium. 3. Continue to wean off pressors as tolerated. 4. Poor prognosis. Palliative care on the case. Case discussed with Dr. Chang. CRITICAL CARE TIME: 35 minutes. Problems: Subjective 24 Hr Interval Summary Free Text/Dictation No changes in status. Remains on pressors. Exam/Review of Systems Vital Signs Vitals Vital Signs Date Time Temp Pulse Resp B/P Pulse Ox O2 Delivery O2 Flow Rate FiO2 10/10/16 07:30 108 21 97/59 96 Mechanical Ventilator 10/10/16 05:53 30 10/10/16 04:00 99.9 Intake and Output 10/09/16 10/09/16 10/10/16 15:00 23:00 07:00 Intake Total 1305 ml 1163.25 ml 713.5 ml Output Total 375 ml 560 ml 320 ml Balance 930 ml 603.25 ml 393.5 ml Exam GENERAL: This is an elderly, frail-looking male lying in bed in no apparent distress. HEENT: Head normocephalic and atraumatic. Eyes: Anicteric sclerae. Conjunctivae clear. ENT: Nasal septum is midline. Oral mucosa is dry. NECK: Supple. Tracheostomy midline. RESPIRATORY: A tracheostomy connected to mechanical ventilator. On AC mode ventilation. CARDIAC: Regular rate and rhythm with a grade III/ systolic ejection murmur. ABDOMEN: Soft, nontender and nondistended. G-tube in place. GENITOURINARY: Cee catheter in place. EXTREMITIES: No cyanosis, no clubbing. Peripheral pulses. Bilateral upper extremity edema. Bilateral foot edema. Contracted bilateral upper and bilateral lower extremities. NEUROLOGIC: The patient is obtunded. Results Result Diagram: 10/10/16 0400 10/10/16 0400 Results 24 hrs Laboratory Tests Test 10/09/16 13:00 10/09/16 18:23 10/10/16 00:37 10/10/16 04:00 Bedside Glucose 133 119 135 White Blood Count 12.4 #H Red Blood Count 3.39 L Hemoglobin 8.5 L Hematocrit 28.5 L Mean Corpuscular Volume 84.1 Mean Corpuscular Hemoglobin 25.1 L Mean Corpuscular Hemoglobin Concent 29.8 L Red Cell Distribution Width 20.3 H Platelet Count 281 # Mean Platelet Volume 11.1 H Neutrophils % 79.4 H Lymphocytes % 9.6 L Monocytes % 6.6 Eosinophils % 3.1 Basophils % 0.2 Nucleated Red Blood Cells % 0.0 Neutrophils # 9.8 H Lymphocytes # 1.2 Monocytes # 0.8 Eosinophils # 0.4 Basophils # 0.0 Nucleated Red Blood Cells # 0.0 Sodium Level 136 Potassium Level 3.1 L Chloride Level 100 Carbon Dioxide Level 19 L Anion Gap 20 H Blood Urea Nitrogen 39 H Creatinine 1.27 H Glucose Level 94 Calcium Level 7.2 L Phosphorus Level 4.6 Magnesium Level 1.6 L Test 10/10/16 06:39 Bedside Glucose 112 Medications Medications Current Medications Acetaminophen (Tylenol Supp) 650 mg Q4H PRN [place] PAIN LEVEL 1-3 OR FEVER; Start 09/24/16 at 03:00 Eye Lubricant (Artificial Tears Oph) 1 drop TID BOTH EYES Last administered on 10/09/16 21:50; Admin Dose 1 DROP; Start 09/24/16 at 09:00 Sodium Hypochlorite (Dakin'S (1/4 Strength)) 1 applic BID IRR Last administered on 10/09/16 21:51; Admin Dose 1 APPLIC; Start 09/24/16 at 21:00 Pantoprazole (Protonix Iv) 40 mg BID@,18 IV Last administered on 10/10/16 06: 40; Admin Dose 40 MG; Start 09/24/16 at 18:00 Collagenase (Santyl) 1 applic DAILY TOP Last administered on 10/09/16 08:58; Admin Dose 1 APPLIC; Start 09/24/16 at 20:30 Miscellaneous Information 1 ea NOTE XX ; Start 09/24/16 at 21:00 Glucose (Glutose) 15 gm Q15M PRN PO DECREASED GLUCOSE; Start 09/24/16 at 21:00 Glucose (Glutose) 22.5 gm Q15M PRN PO DECREASED GLUCOSE; Start 09/24/16 at 21: 00 Dextrose (D50w Syringe) 25 ml Q15M PRN IV DECREASED GLUCOSE; Start 09/24/16 at 21:00 Dextrose (D50w Syringe) 50 ml Q15M PRN IV DECREASED GLUCOSE; Start 09/24/16 at 21:00 Glucagon (Glucagen) 1 mg Q15M PRN IM DECREASED GLUCOSE; Start 09/24/16 at 21:00 Glucose 15 gm 15 gm Q15M PRN BUCCAL DECREASED GLUCOSE; Start 09/24/16 at 21:00 Acetaminophen (Ofirmev 1000mg/ 100ml Iv) 100 ml @ 400 mls/hr Q6H PRN IVPB FEVER Last administered on 10/07/16 17:14; Admin Dose 400 MLS/HR; Start at 22:00 Vancomycin HCl (Vancomycin Oral Syringe) 250 mg Q6 PO Last administered on 17:15; Admin Dose 250 MG; Start 09/26/16 at 18:00; Status Future Hold Lactobacillus Acidoph/Bulgaricus (Floranex) 1 tab TID PO Last administered on 13:22; Admin Dose 1 TAB; Start 09/26/16 at 21:00; Status Future Hold Atorvastatin Calcium (Lipitor) 20 mg QHS GTB Last administered on 10/05/16 21: 42; Admin Dose 20 MG; Start 09/28/16 at 21:00; Status Future Hold Finasteride (Proscar) 5 mg DAILY GTB Last administered on 10/06/16 09:12; Admin Dose 5 MG; Start 09/29/16 at 09:00; Status Future Hold Multivitamins Therapeutic (Theragran) 1 tab DAILY GTB Last administered on 09:12; Admin Dose 1 TAB; Start 09/29/16 at 09:00; Status Future Hold Zinc Sulfate (Zinc Sulfate) 220 mg DAILY NGT Last administered on 10/06/16 09: 13; Admin Dose 220 MG; Start 09/29/16 at 09:00; Status Future Hold Insulin Aspart (Novolog Insulin Pen) NOVOLOG *MILD* ALGORI... Q6 SC ; Start at 18:00 Ondansetron HCl (Zofran Inj) 4 mg Q6H PRN IV NAUSEA AND/OR VOMITING Last administered on 10/05/16 17:42; Admin Dose 4 MG; Start 09/29/16 at 07:30 Heparin Sodium (Porcine) (Heparin (5000 Units/0.5 ml)) 5,000 unit BID SC Last administered on 10/09/16 21:55; Admin Dose 5,000 UNIT; Start 09/29/16 at 09:00 Acetaminophen 650 mg 650 mg Q6H PRN GTB PAIN AND OR ELEVATED TEMP Last administered on 10/04/16 21:27; Admin Dose 650 MG; Start 10/02/16 at 08:00 Metronidazole (Flagyl 500 Mg (Pmx)) 100 ml @ 100 mls/hr Q8 IVPB Last administered on 10/10/16 06:40; Admin Dose 100 MLS/HR; Start 10/02/16 at 14:00 Midodrine (Proamatine) 10 mg TID@,,17 PO Last administered on 10/06/16 17: 15; Admin Dose 10 MG; Start 10/06/16 at 01:00; Status Future Hold Mupirocin 1 applic 1 applic BID TOP Last administered on 10/09/16 21:52; Admin Dose 1 APPLIC; Start 10/06/16 at 21:00 Sodium Bicarbonate 100 meq/Dextrose 1,100 ml @ 80 mls/hr [id number] IV Last administered on 10/09/16 22:35; Admin Dose 80 MLS/HR; Start 10/06/16 at 11:00 Meropenem 100 ml @ 200 mls/hr Q12 IVPB Last administered on 10/09/16 21:51; Admin Dose 200 MLS/HR; Start 10/06/16 at 14:00 Norepinephrine 16 mg/Dextrose 500 ml @ 1.87 mls/hr TITRATE IV Last administered on 10/09/16 14:43; Admin Dose 15 MLS/HR; Start 10/06/16 at 16:30 Linezolid (Zyvox 600mg/D5W (Pmx)) 300 ml @ 300 mls/hr Q12 IVPB Last administered on 10/09/16 21:00; Admin Dose 300 MLS/HR; Start 10/06/16 at 21:00 Levothyroxine Sodium (Synthroid Iv) 12.5 mcg DAILY@06 IV Last administered on 06:40; Admin Dose 12.5 MCG; Start 10/07/16 at 06:00 Metoclopramide HCl (Reglan) 5 mg Q8 IV Last administered on 10/10/16 06:41; Admin Dose 5 MG; Start 10/06/16 at 22:00 Voriconazole 200 mg 200 mg BID PO Last administered on 10/09/16 21:58; Admin Dose 200 MG; Start 10/08/16 at 21:00 Potassium Chloride (KCl 40 MEQ/250 ML NS) 250 ml @ 62.5 mls/hr ONCE ONCE IVPB Last administered on 10/10/16 06:54; Admin Dose 62.5 MLS/HR; Start 10/10/16 at 06:00; Stop 10/10/16 at 09:59 BIGG HEWITT NP Oct 10, 2016 09:21
[2016-10-10] MEDS: HEPARIN 5,000 UNIT/0.5 ML VIAL SC SCH ×2 (09:45→20:33)
[2016-10-10] MEDS: VORICONAZOLE 200 MG TAB PO SCH ×2 (09:45→20:23)
[2016-10-10] MEDS: MEROPENEM 500 MG/100 ML (PMX) 100 ML IVPB SCH ×2 (09:45→20:24)
[2016-10-10] MEDS: SODIUM HYPOCHLORITE 0.125% 473 ML BTL IRR SCH ×2 (09:45→20:25)
[2016-10-10] MEDS: COLLAGENASE 30 GM TUBE TOP SCH (09:46)
[2016-10-10] MEDS: MUPIROCIN 2% 22 GM OINT TOP SCH ×2 (09:46→20:25)
[2016-10-10] MEDS: ARTIFICIAL TEARS 15 ML OPH BOTH EYES SCH ×3 (09:47→20:25)
[2016-10-10] MEDS ORDERED: FUROSEMIDE 40 MG INJ IV ONE (10:00)
--- NOTE | 2016-10-10 10:00 | CONS ---
Date/Time of Note Date/Time of Note DATE: 10/10/16 TIME: 09:57 Assessment/Plan Assessment/Plan Additional Assessment/Plan Ventilator settings; AC of 16, tidal volume 500, PEEP of 5, 30% FiO2. Assessment recommendations; 1. Patient admitted for sepsis and pneumonia with significant clinical improvement. However still requiring low-dose Levophed. 2. Chronic respiratory failure, ventilator dependent. 3. History of chronic renal insufficiency. 4. Advanced multi-infarct dementia. 5. Mild hypotension. 6. Generalized anasarca. Continue current treatment. Add Lasix 40 mg IV daily. Prognosis remains poor. Consultation Date/Type/Reason Admit Date/Time Sep 24, 2016 at 03:19 Initial Consult Date 09/24/16 Type of Consultation: Pulmonary/critical care Referring Provider: ROULA DEL TORO 24 HR Interval Summary Free Text/Dictation Patient condition remains stable. Remains unresponsive due to underlying CVA. Has remained hemodynamically unstable still requiring Levophed at 4 mics per minute. General exam; elderly male, on ventilator via tracheostomy currently in no distress somewhat arousable. Exam/Review of Systems Vital Signs Vitals Vital Signs Date Time Temp Pulse Resp B/P Pulse Ox O2 Delivery O2 Flow Rate FiO2 10/10/16 08:00 107 10/10/16 07:30 21 97/59 96 Mechanical Ventilator 10/10/16 05:53 30 10/10/16 04:00 99.9 Intake and Output 10/09/16 10/09/16 10/10/16 15:00 23:00 07:00 Intake Total 1305 ml 1163.25 ml 713.5 ml Output Total 375 ml 560 ml 320 ml Balance 930 ml 603.25 ml 393.5 ml Exam HEENT exam; supple neck, JVD not well visualized. Tracheostomy in place with clean insertion site. Pupils are midsize and reactive to light bilaterally. Dentition is fair. No thyromegaly, no lymphadenopathy. No neck masses. Chest examination; diminished but clear breath sounds bilaterally. S1-S2 audible, no murmurs. Regular rhythm. Abdomen examination; soft, nondistended. No organomegaly. G-tube in place. Bowel sounds audible. Extremity exam is; no peripheral edema. 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 Results Result Diagram: 10/10/160 10/10/160 Results 24 hrs Laboratory Tests Test 10/09/16 13:00 10/09/16 18:23 10/10/16 00:37 10/10/16 04:00 Bedside Glucose 133 119 135 White Blood Count 12.4 #H Red Blood Count 3.39 L Hemoglobin 8.5 L Hematocrit 28.5 L Mean Corpuscular Volume 84.1 Mean Corpuscular Hemoglobin 25.1 L Mean Corpuscular Hemoglobin Concent 29.8 L Red Cell Distribution Width 20.3 H Platelet Count 281 # Mean Platelet Volume 11.1 H Neutrophils % 79.4 H Lymphocytes % 9.6 L Monocytes % 6.6 Eosinophils % 3.1 Basophils % 0.2 Nucleated Red Blood Cells % 0.0 Neutrophils # 9.8 H Lymphocytes # 1.2 Monocytes # 0.8 Eosinophils # 0.4 Basophils # 0.0 Nucleated Red Blood Cells # 0.0 Sodium Level 136 Potassium Level 3.1 L Chloride Level 100 Carbon Dioxide Level 19 L Anion Gap 20 H Blood Urea Nitrogen 39 H Creatinine 1.27 H Glucose Level 94 Calcium Level 7.2 L Phosphorus Level 4.6 Magnesium Level 1.6 L Test 10/10/16 06:39 Bedside Glucose 112 Medications Medications Current Medications Acetaminophen (Tylenol Supp) [address] PAIN LEVEL 1-3 OR FEVER; Start 09/24/16 at 03:00 Eye Lubricant (Artificial Tears Oph) 1 drop TID BOTH EYES Last administered on 10/09/16 21:50; Admin Dose 1 DROP; Start 09/24/16 at 09:00 Sodium Hypochlorite (Dakin'S (1/4 Strength)) 1 applic BID IRR Last administered on 10/09/16 21:51; Admin Dose 1 APPLIC; Start 09/24/16 at 21:00 Pantoprazole (Protonix Iv) 40 mg BID@06,18 IV Last administered on 10/10/16 06: 40; Admin Dose 40 MG; Start 09/24/16 at 18:00 Collagenase (Santyl) 1 applic DAILY TOP Last administered on 10/09/16 08:58; Admin Dose 1 APPLIC; Start 09/24/16 at 20:30 Miscellaneous Information 1 ea NOTE XX ; Start 09/24/16 at 21:00 Glucose (Glutose) 15 gm Q15M PRN PO DECREASED GLUCOSE; Start 09/24/16 at 21:00 Glucose (Glutose) 22.5 gm Q15M PRN PO DECREASED GLUCOSE; Start 09/24/16 at 21: 00 Dextrose (D50w Syringe) 25 ml Q15M PRN IV DECREASED GLUCOSE; Start 09/24/16 at 21:00 Dextrose (D50w Syringe) 50 ml Q15M PRN IV DECREASED GLUCOSE; Start 09/24/16 at 21:00 Glucagon (Glucagen) 1 mg Q15M PRN IM DECREASED GLUCOSE; Start 09/24/16 at 21:00 Glucose 15 gm 15 gm Q15M PRN BUCCAL DECREASED GLUCOSE; Start 09/24/16 at 21:00 Acetaminophen (Ofirmev 1000mg/ 100ml Iv) 100 ml @ 400 mls/hr Q6H PRN IVPB FEVER Last administered on 10/07/16 17:14; Admin Dose 400 MLS/HR; Start at 22:00 Vancomycin HCl (Vancomycin Oral Syringe) 250 mg Q6 PO Last administered on 17:15; Admin Dose 250 MG; Start 09/26/16 at 18:00; Status Future Hold Lactobacillus Acidoph/Bulgaricus (Floranex) 1 tab TID PO Last administered on 13:22; Admin Dose 1 TAB; Start 09/26/16 at 21:00; Status Future Hold Atorvastatin Calcium (Lipitor) 20 mg QHS GTB Last administered on 10/05/16 21: 42; Admin Dose 20 MG; Start 09/28/16 at 21:00; Status Future Hold Finasteride (Proscar) 5 mg DAILY GTB Last administered on 10/06/16 09:12; Admin Dose 5 MG; Start 09/29/16 at 09:00; Status Future Hold Multivitamins Therapeutic (Theragran) 1 tab DAILY GTB Last administered on 09:12; Admin Dose 1 TAB; Start 09/29/16 at 09:00; Status Future Hold Zinc Sulfate (Zinc Sulfate) 220 mg DAILY NGT Last administered on 10/06/16 09: 13; Admin Dose 220 MG; Start 09/29/16 at 09:00; Status Future Hold Insulin Aspart (Novolog Insulin Pen) NOVOLOG *MILD* ALGORI... Q6 SC ; Start at 18:00 Ondansetron HCl (Zofran Inj) 4 mg Q6H PRN IV NAUSEA AND/OR VOMITING Last administered on 10/05/16 17:42; Admin Dose 4 MG; Start 09/29/16 at 07:30 Heparin Sodium (Porcine) (Heparin (5000 Units/0.5 ml)) 5,000 unit BID SC Last administered on 10/09/16 21:55; Admin Dose 5,000 UNIT; Start 09/29/16 at 09:00 Acetaminophen 650 mg 650 mg Q6H PRN GTB PAIN AND OR ELEVATED TEMP Last administered on 10/04/16 21:27; Admin Dose 650 MG; Start 10/02/16 at 08:00 Metronidazole (Flagyl 500 Mg (Pmx)) 100 ml @ 100 mls/hr Q8 IVPB Last administered on 10/10/16 06:40; Admin Dose 100 MLS/HR; Start 10/02/16 at 14:00 Midodrine (Proamatine) 10 mg TID@,,17 PO Last administered on 10/06/16 17: 15; Admin Dose 10 MG; Start 10/06/16 at 01:00; Status Future Hold Mupirocin 1 applic 1 applic BID TOP Last administered on 10/09/16 21:52; Admin Dose 1 APPLIC; Start 10/06/16 at 21:00 Sodium Bicarbonate 100 meq/Dextrose 1,100 ml @ 80 mls/hr [id number] IV Last administered on 10/09/16 22:35; Admin Dose 80 MLS/HR; Start 10/06/16 at 11:00 Meropenem 100 ml @ 200 mls/hr Q12 IVPB Last administered on 10/09/16 21:51; Admin Dose 200 MLS/HR; Start 10/06/16 at 14:00 Norepinephrine 16 mg/Dextrose 500 ml @ 1.87 mls/hr TITRATE IV Last administered on 10/09/16 14:43; Admin Dose 15 MLS/HR; Start 10/06/16 at 16:30 Linezolid (Zyvox 600mg/D5W (Pmx)) 300 ml @ 300 mls/hr Q12 IVPB Last administered on 10/09/16 21:00; Admin Dose 300 MLS/HR; Start 10/06/16 at 21:00 Levothyroxine Sodium (Synthroid Iv) 12.5 mcg DAILY@06 IV Last administered on 06:40; Admin Dose 12.5 MCG; Start 10/07/16 at 06:00 Metoclopramide HCl (Reglan) 5 mg Q8 IV Last administered on 10/10/16 06:41; Admin Dose 5 MG; Start 10/06/16 at 22:00 Voriconazole 200 mg 200 mg BID PO Last administered on 10/09/16 21:58; Admin Dose 200 MG; Start 10/08/16 at 21:00 Potassium Chloride (KCl 40 MEQ/250 ML NS) 250 ml @ 62.5 mls/hr ONCE ONCE IVPB Last administered on 10/10/16 06:54; Admin Dose 62.5 MLS/HR; Start 10/10/16 at 06:00; Stop 10/10/16 at 09:59 MAIN SALTER Oct 10, 2016 10:00
--- NOTE | 2016-10-10 10:37 | CONS ---
Date/Time of Note Date/Time of Note DATE: 10/10/16 TIME: 10:35 Assessment/Plan Assessment/Plan Additional Assessment/Plan 1. Acute kidney injury on chronic kidney disease. due to ATN from septic shock 2. septic shock on levophed 3. severe metabolic acidosis on bicarbonate drip 5. History of chronic respiratory failure, status post tracheostomy, on ventilator. 6. History of G-tube. 7. Poor mental status due to the previous cerebrovascular accident. 8. History of dementia. 9. History of hypertension. PLAN: on levophed gtt, now BP more stable critically ill good urine output yesterday, Na improved, K and Mag low, KCL 40meQ iV x 1 now, magnesium sulfate 2 gram IV x 1 now continue bicarbonate drip now, Monitor Electrolytes and Cr, K s/p palliative care meeting will follow up Consultation Date/Type/Reason Admit Date/Time Sep 24, 2016 at 03:19 Initial Consult Date 09/24/16 Type of Consultation: NEPHROLOGY Referring Provider: ROULA DEL TORO 24 HR Interval Summary Free Text/Dictation made good urine output 1.1 liter, BUN/Cr improving, K and mag low today Exam/Review of Systems Vital Signs Vitals Vital Signs Date Time Temp Pulse Resp B/P Pulse Ox O2 Delivery O2 Flow Rate FiO2 10/10/16 08:00 107 10/10/16 07:30 21 97/59 96 Mechanical Ventilator 10/10/16 05:53 30 10/10/16 04:00 99.9 Intake and Output 10/09/16 10/09/16 10/10/16 15:00 23:00 07:00 Intake Total 1305 ml 1163.25 ml 713.5 ml Output Total 375 ml 560 ml 320 ml Balance 930 ml 603.25 ml 393.5 ml Exam GENERAL: This is a chronically ill-appearing, elderly man who is awake, noncommunicative, in no distress. HEENT: Head atraumatic, normocephalic. Sclerae anicteric. Buccal mucosa dry. NECK: Supple. Tracheostomy present. CHEST: Rise symmetrical. Breath sounds diminished to bases. HEART: S1, S2. ABDOMEN: Soft, bowel sounds present. EXTREMITIES: Without cyanosis. Trace edema. Results Result Diagram: 10/10/16 0400 10/10/16 0400 Results 24 hrs Laboratory Tests Test 10/09/16 13:00 10/09/16 18:23 10/10/16 00:37 10/10/16 04:00 Bedside Glucose 133 119 135 White Blood Count 12.4 #H Red Blood Count 3.39 L Hemoglobin 8.5 L Hematocrit 28.5 L Mean Corpuscular Volume 84.1 Mean Corpuscular Hemoglobin 25.1 L Mean Corpuscular Hemoglobin Concent 29.8 L Red Cell Distribution Width 20.3 H Platelet Count 281 # Mean Platelet Volume 11.1 H Neutrophils % 79.4 H Lymphocytes % 9.6 L Monocytes % 6.6 Eosinophils % 3.1 Basophils % 0.2 Nucleated Red Blood Cells % 0.0 Neutrophils # 9.8 H Lymphocytes # 1.2 Monocytes # 0.8 Eosinophils # 0.4 Basophils # 0.0 Nucleated Red Blood Cells # 0.0 Sodium Level 136 Potassium Level 3.1 L Chloride Level 100 Carbon Dioxide Level 19 L Anion Gap 20 H Blood Urea Nitrogen 39 H Creatinine 1.27 H Glucose Level 94 Calcium Level 7.2 L Phosphorus Level 4.6 Magnesium Level 1.6 L Test 10/10/16 06:39 Bedside Glucose 112 Medications Medications Current Medications Acetaminophen (Tylenol Supp) 650 mg Q4H PRN [place] PAIN LEVEL 1-3 OR FEVER; Start 09/24/16 at 03:00 Eye Lubricant (Artificial Tears Oph) 1 drop TID BOTH EYES Last administered on 10/09/16 21:50; Admin Dose 1 DROP; Start 09/24/16 at 09:00 Sodium Hypochlorite (Dakin'S (1/4 Strength)) 1 applic BID IRR Last administered on 10/09/16 21:51; Admin Dose 1 APPLIC; Start 09/24/16 at 21:00 Pantoprazole (Protonix Iv) 40 mg BID@06,18 IV Last administered on 10/10/16 06: 40; Admin Dose 40 MG; Start 09/24/16 at 18:00 Collagenase (Santyl) 1 applic DAILY TOP Last administered on 10/09/16 08:58; Admin Dose 1 APPLIC; Start 09/24/16 at 20:30 Miscellaneous Information 1 ea NOTE XX ; Start 09/24/16 at 21:00 Glucose (Glutose) 15 gm Q15M PRN PO DECREASED GLUCOSE; Start 09/24/16 at 21:00 Glucose (Glutose) 22.5 gm Q15M PRN PO DECREASED GLUCOSE; Start 09/24/16 at 21: 00 Dextrose (D50w Syringe) 25 ml Q15M PRN IV DECREASED GLUCOSE; Start 09/24/16 at 21:00 Dextrose (D50w Syringe) 50 ml Q15M PRN IV DECREASED GLUCOSE; Start 09/24/16 at 21:00 Glucagon (Glucagen) 1 mg Q15M PRN IM DECREASED GLUCOSE; Start 09/24/16 at 21:00 Glucose 15 gm 15 gm Q15M PRN BUCCAL DECREASED GLUCOSE; Start 09/24/16 at 21:00 Acetaminophen (Ofirmev 1000mg/ 100ml Iv) 100 ml @ 400 mls/hr Q6H PRN IVPB FEVER Last administered on 10/07/16 17:14; Admin Dose 400 MLS/HR; Start at 22:00 Vancomycin HCl (Vancomycin Oral Syringe) 250 mg Q6 PO Last administered on 17:15; Admin Dose 250 MG; Start 09/26/16 at 18:00; Status Future Hold Lactobacillus Acidoph/Bulgaricus (Floranex) 1 tab TID PO Last administered on 13:22; Admin Dose 1 TAB; Start 09/26/16 at 21:00; Status Future Hold Atorvastatin Calcium (Lipitor) 20 mg QHS GTB Last administered on 10/05/16 21: 42; Admin Dose 20 MG; Start 09/28/16 at 21:00; Status Future Hold Finasteride (Proscar) 5 mg DAILY GTB Last administered on 10/06/16 09:12; Admin Dose 5 MG; Start 09/29/16 at 09:00; Status Future Hold Multivitamins Therapeutic (Theragran) 1 tab DAILY GTB Last administered on 09:12; Admin Dose 1 TAB; Start 09/29/16 at 09:00; Status Future Hold Zinc Sulfate (Zinc Sulfate) 220 mg DAILY NGT Last administered on 10/06/16 09: 13; Admin Dose 220 MG; Start 09/29/16 at 09:00; Status Future Hold Insulin Aspart (Novolog Insulin Pen) NOVOLOG *MILD* ALGORI... Q6 SC ; Start at 18:00 Ondansetron HCl (Zofran Inj) 4 mg Q6H PRN IV NAUSEA AND/OR VOMITING Last administered on 10/05/16 17:42; Admin Dose 4 MG; Start 09/29/16 at 07:30 Heparin Sodium (Porcine) (Heparin (5000 Units/0.5 ml)) 5,000 unit BID SC Last administered on 10/09/16 21:55; Admin Dose 5,000 UNIT; Start 09/29/16 at 09:00 Acetaminophen 650 mg 650 mg Q6H PRN GTB PAIN AND OR ELEVATED TEMP Last administered on 10/04/16 21:27; Admin Dose 650 MG; Start 10/02/16 at 08:00 Metronidazole (Flagyl 500 Mg (Pmx)) 100 ml @ 100 mls/hr Q8 IVPB Last administered on 10/10/16 06:40; Admin Dose 100 MLS/HR; Start 10/02/16 at 14:00 Midodrine (Proamatine) 10 mg TID@09,13,17 PO Last administered on 10/06/16 17: 15; Admin Dose 10 MG; Start 10/06/16 at 01:00; Status Future Hold Mupirocin 1 applic 1 applic BID TOP Last administered on 10/09/16 21:52; Admin Dose 1 APPLIC; Start 10/06/16 at 21:00 Sodium Bicarbonate 100 meq/Dextrose 1,100 ml @ 80 mls/hr [id number] IV Last administered on 10/09/16 22:35; Admin Dose 80 MLS/HR; Start 10/06/16 at 11:00 Meropenem 100 ml @ 200 mls/hr Q12 IVPB Last administered on 10/09/16 21:51; Admin Dose 200 MLS/HR; Start 10/06/16 at 14:00 Norepinephrine 16 mg/Dextrose 500 ml @ 1.87 mls/hr TITRATE IV Last administered on 10/09/16 14:43; Admin Dose 15 MLS/HR; Start 10/06/16 at 16:30 Linezolid (Zyvox 600mg/D5W (Pmx)) 300 ml @ 300 mls/hr Q12 IVPB Last administered on 10/09/16 21:00; Admin Dose 300 MLS/HR; Start 10/06/16 at 21:00 Levothyroxine Sodium (Synthroid Iv) 12.5 mcg DAILY@06 IV Last administered on 06:40; Admin Dose 12.5 MCG; Start 10/07/16 at 06:00 Metoclopramide HCl (Reglan) 5 mg Q8 IV Last administered on 10/10/16 06:41; Admin Dose 5 MG; Start 10/06/16 at 22:00 Voriconazole (Vfend) 200 mg BID PO Last administered on 10/09/16 21:58; Admin Dose 200 MG; Start 10/08/16 at 21:00 MAGGIE DINERO MD Oct 10, 2016 10:37
[2016-10-10] MEDS: SODIUM BICARBONATE (IV ADD) 100 MEQ in DEXTROSE 5% 1,000 ML IV SCH (12:02)
--- NOTE | 2016-10-10 12:37 | RADRPT ---
PROCEDURE: XR Abdomen. CLINICAL INDICATION: Follow up ileus. TECHNIQUE: AP abdomen x-ray. COMPARISON: [facility] 10/05/2016. FINDINGS: There are large areas of calcification the soft tissues projecting across the right and left hips. There are degenerative changes in the lumbar spine. The SI joints and hip joints are bilaterally sy mmetric. There is an elliptical calcification in the lower left pelvis. There small around calcifi cations in the right and left lower pelvis. IMPRESSION: 1. 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 2. Phleboliths in the lower pelvis. 3. 1.7 by 1 cm elliptical calcification in the lower left pelvis. Etiology and clear. The bladder stone or other calcification might present this fashion. 4. Osteoarthritis of the lumbar spine. 5. Old healed fracture deformity to the neck of the right proximal femur is not excluded. Physician Juliann Date Time Electronically viewed and signed by Luis Pierre Physician on 10/10/2016 12:37 GUSTAVO/
--- NOTE | 2016-10-10 13:19 | PN ---
DATE: 10/10/2016 PALLIATIVE CARE FOLLOWUP NOTE I had an extensive conversation with patient's at the bedside through a tele-terminologist. We c overed all of his current medical problems, the fact that he is still on medication artificially to keep his blood pressure up, that he has pneumonia, renal failure and we do not think his long-term p rognosis is good and that patient may not survive this hospitalization. This was explained to her i s compassionately as possible. does understand the gravity of his medical problems at this agnes e. Her hopes are that he does not suffer towards the end of life. She understands his quality of l oliver was very poor prior to this hospitalization secondary to the stroke syndrome, PEG, trached, all the antecedent complications associated with being bedridden, severely mentally impaired. Culturall y, she does not believe that she could give up on him. 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 On examinati on, there has been no clear improvement in his overall clinical condition. He remains moribund, he stares at me, but he does not follow any simple commands, does not squeeze, does not track me when I move around in the room. He does not try to communicate in any way by mouthing his words, or squee zing my hand or pointing with his unaffected upper right extremity. Goals of care have been discussed with patient's at the bedside and after explaining to her mary t we do not want to hurt him at the time his , we do not want to do cardiopulmonary resuscitati on, we would highly recommend against it. It would only cause him suffering at the end of his life. She was in agreement with that. We will change code status at this time to DO NOT RESUSCITATE and will not escalate care in the event that he begins to deteriorate. I emphasized to her that he wou ld still have his current care given insofar as his underlying cardiovascular issues and pulmonary i ssues. RECOMMENDATIONS: I have changed to DO NOT RESUSCITATE, which I have made those appropriate changes in the patient's medical records. Pain is controlled. There are no psychosocial or ethical issues a t this time. In the event that patient survives this hospitalization, I will a POLST for luis eduardo ent when and if he is transferred back to a subacute unit. Dictated By: SITA OCONNOR MD LP/ELIZABETH Conf#: [id number] DID#: [id number]
--- NOTE | 2016-10-10 14:07 | PN ---
DATE: 10/10/2016 INFECTIOUS DISEASE PROGRESS NOTE SUBJECTIVE: No events. The patient remains on vasopressor support. He is DNR status now. He is a febrile. OBJECTIVE: VITAL SIGNS: Temperature 97.5, pulse 106, respirations 22, blood pressure 103/64, satur ation 97% on vent. WBC 12.4, H and H 8.5 and 28.5, platelets 281, neutrophils 79.4, BUN 39, creatin ine 1.27. INDWELLINGS: Trach, PEG, Cee, left chest triple lumen catheter. ANTIMICROBIALS: The patient is on: 1. Voriconazole. 2. Topical Bactroban to nares. 3. Zosyn. 4. Meropenem. 5. Flagyl. PHYSICAL EXAMINATION: GENERAL: This is a chronically ill-appearing, elderly man who is lying comfortably in bed. HEENT: Head atraumatic, normocephalic. Sclerae anicteric. Buccal mucosa dry. NECK: Supple. Tracheostomy present. CHEST: Rise symmetrical. Breath sounds diminished to bases. HEART: S1, S2. ABDOMEN: Soft, bowel tones present. EXTREMITIES: No cyanosis. Bilateral trace edema and multiple wounds. SKIN: With anasarca. ASSESSMENT: 1. Septic shock. 2. Resolving pneumonia. 3. Persistent UTI with E coli on admission and now repeat urine culture growing Teresita glabrata. 4. Status post Escherichia coli and bacteroides fragilis bacteremia on admission. 5. 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 6. History of severe pseudomembranous colitis. 7. Ileus. 8. Persistent diarrhea. PLAN: The patient remains unstable, still on vasopressor support. He is being followed by multiple consultants. Renal function improving. White blood cell count tracing down. We will continue him on current regimen. Dictated By: CHRISTOPHER MCDONOUGH [employer] ARCHITECT for YAQUELIN SMYTH/ELIZABETH Conf#: [id number] DID#: [id number]
--- NOTE | 2016-10-10 15:53 | PN ---
Date/Time of Note Date/Time of Note DATE: 10/10/16 TIME: 15:43 Assessment/Plan VTE Prophylaxis VTE Prophylaxis Intervention: SCD's Lines/Catheters IV Catheter Type (from Nrs): Central Line Central line still needed: Yes Urinary Cath still in place: Yes Reason Cath still needed: urinary retention Assessment/Plan Chief Complaint/Hosp Course Problems: Assessment/Plan * Severe sepsis with septic shock 2/2 Decub ulcers and/or UTI and/or PNA * Ileus. 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 2. Phleboliths in the lower pelvis. 3. 1.7 by 1 cm elliptical calcification in the lower left pelvis. Etiology and clear. The bladder stone or other calcification might present this fashion. 4. Osteoarthritis of the lumbar spine. 5. Old healed fracture deformity to the neck of the right proximal femur is not excluded. Exam/Review of Systems Vital Signs Vitals Vital Signs Date Time Temp Pulse Resp B/P Pulse Ox O2 Delivery O2 Flow Rate FiO2 10/10/16 14:30 114 23 101/59 96 10/10/16 12:54 30 10/10/16 12:00 98.5 10/10/16 11:00 Mechanical Ventilator Intake and Output 10/09/16 10/09/16 10/10/16 15:00 23:00 07:00 Intake Total 1305 ml 1163.25 ml 801.0 ml Output Total 375 ml 560 ml 320 ml Balance 930 ml 603.25 ml 481.0 ml Exam Constitutional: frail Respiratory: clear to auscultation, diminished breath sounds, other (trach to vent) Cardiovascular: regular rate and rhythm Gastrointestinal: distended, non-tender, soft,Gtube in placed,rectal tube draining Skin: other (multiple decubitus ulcer) Results Result Diagram: 10/10/16 0400 10/10/16 0400 Results 24 hrs Laboratory Tests Test 10/09/16 18:23 10/10/16 00:37 10/10/16 04:00 10/10/16 06:39 Bedside Glucose 119 135 112 White Blood Count 12.4 #H Red Blood Count 3.39 L Hemoglobin 8.5 L Hematocrit 28.5 L Mean Corpuscular Volume 84.1 Mean Corpuscular Hemoglobin 25.1 L Mean Corpuscular Hemoglobin Concent 29.8 L Red Cell Distribution Width 20.3 H Platelet Count 281 # Mean Platelet Volume 11.1 H Neutrophils % 79.4 H Lymphocytes % 9.6 L Monocytes % 6.6 Eosinophils % 3.1 Basophils % 0.2 Nucleated Red Blood Cells % 0.0 Neutrophils # 9.8 H Lymphocytes # 1.2 Monocytes # 0.8 Eosinophils # 0.4 Basophils # 0.0 Nucleated Red Blood Cells # 0.0 Sodium Level 136 Potassium Level 3.1 L Chloride Level 100 Carbon Dioxide Level 19 L Anion Gap 20 H Blood Urea Nitrogen 39 H Creatinine 1.27 H Glucose Level 94 Calcium Level 7.2 L Phosphorus Level 4.6 Magnesium Level 1.6 L Test 10/10/16 12:01 Bedside Glucose 90 Medications Medications Current Medications Acetaminophen (Tylenol Supp) [address] PAIN LEVEL 1-3 OR FEVER; Start 09/24/16 at 03:00 Eye Lubricant (Artificial Tears Oph) 1 drop TID BOTH EYES Last administered on 10/10/16 09:47; Admin Dose 1 DROP; Start 09/24/16 at 09:00 Sodium Hypochlorite (Dakin'S (1/4 Strength)) 1 applic BID IRR Last administered on 10/10/16 09:45; Admin Dose 1 APPLIC; Start 09/24/16 at 21:00 Pantoprazole (Protonix Iv) 40 mg BID@18 IV Last administered on 10/10/16 06: 40; Admin Dose 40 MG; Start 09/24/16 at 18:00 Collagenase (Santyl) 1 applic DAILY TOP Last administered on 10/10/16 09:46; Admin Dose 1 APPLIC; Start 09/24/16 at 20:30 Miscellaneous Information 1 ea NOTE XX ; Start 09/24/16 at 21:00 Glucose (Glutose) 15 gm Q15M PRN PO DECREASED GLUCOSE; Start 09/24/16 at 21:00 Glucose (Glutose) 22.5 gm Q15M PRN PO DECREASED GLUCOSE; Start 09/24/16 at 21: 00 Dextrose (D50w Syringe) 25 ml Q15M PRN IV DECREASED GLUCOSE; Start 09/24/16 at 21:00 Dextrose (D50w Syringe) 50 ml Q15M PRN IV DECREASED GLUCOSE; Start 09/24/16 at 21:00 Glucagon (Glucagen) 1 mg Q15M PRN IM DECREASED GLUCOSE; Start 09/24/16 at 21:00 Glucose 15 gm 15 gm Q15M PRN BUCCAL DECREASED GLUCOSE; Start 09/24/16 at 21:00 Acetaminophen (Ofirmev 1000mg/ 100ml Iv) 100 ml @ 400 mls/hr Q6H PRN IVPB FEVER Last administered on 10/07/16 17:14; Admin Dose 400 MLS/HR; Start at 22:00 Vancomycin HCl (Vancomycin Oral Syringe) 250 mg Q6 PO Last administered on 17:15; Admin Dose 250 MG; Start 09/26/16 at 18:00; Status Future Hold Lactobacillus Acidoph/Bulgaricus (Floranex) 1 tab TID PO Last administered on 13:22; Admin Dose 1 TAB; Start 09/26/16 at 21:00; Status Future Hold Atorvastatin Calcium (Lipitor) 20 mg QHS GTB Last administered on 10/05/16 21: 42; Admin Dose 20 MG; Start 09/28/16 at 21:00; Status Future Hold Finasteride (Proscar) 5 mg DAILY GTB Last administered on 10/06/16 09:12; Admin Dose 5 MG; Start 09/29/16 at 09:00; Status Future Hold Multivitamins Therapeutic (Theragran) 1 tab DAILY GTB Last administered on 09:12; Admin Dose 1 TAB; Start 09/29/16 at 09:00; Status Future Hold Zinc Sulfate (Zinc Sulfate) 220 mg DAILY NGT Last administered on 10/06/16 09: 13; Admin Dose 220 MG; Start 09/29/16 at 09:00; Status Future Hold Insulin Aspart (Novolog Insulin Pen) NOVOLOG *MILD* ALGORI... Q6 SC ; Start at 18:00 Ondansetron HCl (Zofran Inj) 4 mg Q6H PRN IV NAUSEA AND/OR VOMITING Last administered on 10/05/16 17:42; Admin Dose 4 MG; Start 09/29/16 at 07:30 Heparin Sodium (Porcine) (Heparin (5000 Units/0.5 ml)) 5,000 unit BID SC Last administered on 10/10/16 09:45; Admin Dose 5,000 UNIT; Start 09/29/16 at 09:00 Acetaminophen 650 mg 650 mg Q6H PRN GTB PAIN AND OR ELEVATED TEMP Last administered on 10/04/16 21:27; Admin Dose 650 MG; Start 10/02/16 at 08:00 Metronidazole (Flagyl 500 Mg (Pmx)) 100 ml @ 100 mls/hr Q8 IVPB Last administered on 10/10/16 06:40; Admin Dose 100 MLS/HR; Start 10/02/16 at 14:00 Midodrine (Proamatine) 10 mg TID@,,17 PO Last administered on 10/06/16 17: 15; Admin Dose 10 MG; Start 10/06/16 at 01:00; Status Future Hold Mupirocin 1 applic 1 applic BID TOP Last administered on 10/10/16 09:46; Admin Dose 1 APPLIC; Start 10/06/16 at 21:00 Sodium Bicarbonate 100 meq/Dextrose 1,100 ml @ 80 mls/hr [id number] IV Last administered on 10/10/16 12:02; Admin Dose 80 MLS/HR; Start 10/06/16 at 11:00 Meropenem 100 ml @ 200 mls/hr Q12 IVPB Last administered on 10/10/16 09:45; Admin Dose 200 MLS/HR; Start 10/06/16 at 14:00 Norepinephrine 16 mg/Dextrose 500 ml @ 1.87 mls/hr TITRATE IV Last administered on 10/09/16 14:43; Admin Dose 15 MLS/HR; Start 10/06/16 at 16:30 Linezolid (Zyvox 600mg/D5W (Pmx)) 300 ml @ 300 mls/hr Q12 IVPB Last administered on 10/09/16 21:00; Admin Dose 300 MLS/HR; Start 10/06/16 at 21:00 Levothyroxine Sodium (Synthroid Iv) 12.5 mcg DAILY@06 IV Last administered on 06:40; Admin Dose 12.5 MCG; Start 10/07/16 at 06:00 Metoclopramide HCl (Reglan) 5 mg Q8 IV Last administered on 10/10/16 06:41; Admin Dose 5 MG; Start 10/06/16 at 22:00 Voriconazole (Vfend) 200 mg BID PO Last administered on 10/10/16 09:45; Admin Dose 200 MG; Start 10/08/16 at 21:00 JOSEF CASTRO MD Oct 10, 2016 15:53
--- NOTE | 2016-10-10 17:53 | CONS ---
Date/Time of Note Date/Time of Note DATE: 10/10/16 TIME: 17:50 Assessment/Plan Assessment/Plan Additional Assessment/Plan Severe septic shock Preserved ejection fraction Moderate aortic stenosis Respiratory failure Coronary artery disease Anemia, worsening Acute kidney injury -Titrate IV pressor to maintain SBP greater than 90 and/or map above 60, IV fluids as per nephrology colleague. Potassium and magnesium supplementation has already been ordered. Continue to hold any antihypertensives and nephrotoxic medications. Consultation Date/Type/Reason Admit Date/Time Sep 24, 2016 at 03:19 Initial Consult Date 09/24/16 Type of Consultation: cv Referring Provider: ROULA DEL TORO 24 HR Interval Summary Free Text/Dictation Patient seen and examined, no new cardiac issues as per nursing staff Exam/Review of Systems Vital Signs Vitals Vital Signs Date Time Temp Pulse Resp B/P Pulse Ox O2 Delivery O2 Flow Rate FiO2 10/10/16 17:16 121 24 98 30 10/10/16 17:15 108/59 10/10/16 12:00 98.5 10/10/16 11:00 Mechanical Ventilator Intake and Output 10/09/16 10/09/16 10/10/16 15:00 23:00 07:00 Intake Total 1305 ml 1163.25 ml 801.0 ml Output Total 375 ml 560 ml 350 ml Balance 930 ml 603.25 ml 451.0 ml Exam Awake, not following commands, no apparent distress Head: normocephalic Respiratory: other (Coarse breath sounds bilaterally, no wheezing) Cardiovascular: other (S1-S2 heard), regular rate and rhythm Gastrointestinal: bowel sounds, non-tender, other (No grimacing), soft Extremities: edema, other Results Result Diagram: 10/10/16 0400 10/10/16 0400 Results 24 hrs Laboratory Tests Test 10/09/16 18:23 10/10/16 00:37 10/10/16 04:00 10/10/16 06:39 Bedside Glucose 119 135 112 White Blood Count 12.4 #H Red Blood Count 3.39 L Hemoglobin 8.5 L Hematocrit 28.5 L Mean Corpuscular Volume 84.1 Mean Corpuscular Hemoglobin 25.1 L Mean Corpuscular Hemoglobin Concent 29.8 L Red Cell Distribution Width 20.3 H Platelet Count 281 # Mean Platelet Volume 11.1 H Neutrophils % 79.4 H Lymphocytes % 9.6 L Monocytes % 6.6 Eosinophils % 3.1 Basophils % 0.2 Nucleated Red Blood Cells % 0.0 Neutrophils # 9.8 H Lymphocytes # 1.2 Monocytes # 0.8 Eosinophils # 0.4 Basophils # 0.0 Nucleated Red Blood Cells # 0.0 Sodium Level 136 Potassium Level 3.1 L Chloride Level 100 Carbon Dioxide Level 19 L Anion Gap 20 H Blood Urea Nitrogen 39 H Creatinine 1.27 H Glucose Level 94 Calcium Level 7.2 L Phosphorus Level 4.6 Magnesium Level 1.6 L Test 10/10/16 12:01 Bedside Glucose 90 Medications Medications Current Medications Acetaminophen (Tylenol Supp) 650 mg Q4H PRN [place] PAIN LEVEL 1-3 OR FEVER; Start 09/24/16 at 03:00 Eye Lubricant (Artificial Tears Oph) 1 drop TID BOTH EYES Last administered on 10/10/16 13:13; Admin Dose 1 DROP; Start 09/24/16 at 09:00 Sodium Hypochlorite (Dakin'S (1/4 Strength)) 1 applic BID IRR Last administered on 10/10/16 09:45; Admin Dose 1 APPLIC; Start 09/24/16 at 21:00 Pantoprazole (Protonix Iv) 40 mg BID@06,18 IV Last administered on 10/10/16 06: 40; Admin Dose 40 MG; Start 09/24/16 at 18:00 Collagenase (Santyl) 1 applic DAILY TOP Last administered on 10/10/16 09:46; Admin Dose 1 APPLIC; Start 09/24/16 at 20:30 Miscellaneous Information 1 ea NOTE XX ; Start 09/24/16 at 21:00 Glucose (Glutose) 15 gm Q15M PRN PO DECREASED GLUCOSE; Start 09/24/16 at 21:00 Glucose (Glutose) 22.5 gm Q15M PRN PO DECREASED GLUCOSE; Start 09/24/16 at 21: 00 Dextrose (D50w Syringe) 25 ml Q15M PRN IV DECREASED GLUCOSE; Start 09/24/16 at 21:00 Dextrose (D50w Syringe) 50 ml Q15M PRN IV DECREASED GLUCOSE; Start 09/24/16 at 21:00 Glucagon (Glucagen) 1 mg Q15M PRN IM DECREASED GLUCOSE; Start 09/24/16 at 21:00 Glucose 15 gm 15 gm Q15M PRN BUCCAL DECREASED GLUCOSE; Start 09/24/16 at 21:00 Acetaminophen (Ofirmev 1000mg/ 100ml Iv) 100 ml @ 400 mls/hr Q6H PRN IVPB FEVER Last administered on 10/07/16 17:14; Admin Dose 400 MLS/HR; Start at 22:00 Vancomycin HCl (Vancomycin Oral Syringe) 250 mg Q6 PO Last administered on 17:15; Admin Dose 250 MG; Start 09/26/16 at 18:00; Status Future Hold Lactobacillus Acidoph/Bulgaricus (Floranex) 1 tab TID PO Last administered on 13:22; Admin Dose 1 TAB; Start 09/26/16 at 21:00; Status Future Hold Atorvastatin Calcium (Lipitor) 20 mg QHS GTB Last administered on 10/05/16 21: 42; Admin Dose 20 MG; Start 09/28/16 at 21:00; Status Future Hold Finasteride (Proscar) 5 mg DAILY GTB Last administered on 10/06/16 09:12; Admin Dose 5 MG; Start 09/29/16 at 09:00; Status Future Hold Multivitamins Therapeutic (Theragran) 1 tab DAILY GTB Last administered on 09:12; Admin Dose 1 TAB; Start 09/29/16 at 09:00; Status Future Hold Zinc Sulfate (Zinc Sulfate) 220 mg DAILY NGT Last administered on 10/06/16 09: 13; Admin Dose 220 MG; Start 09/29/16 at 09:00; Status Future Hold Insulin Aspart (Novolog Insulin Pen) NOVOLOG *MILD* ALGORI... Q6 SC ; Start at 18:00 Ondansetron HCl (Zofran Inj) 4 mg Q6H PRN IV NAUSEA AND/OR VOMITING Last administered on 10/05/16 17:42; Admin Dose 4 MG; Start 09/29/16 at 07:30 Heparin Sodium (Porcine) (Heparin (5000 Units/0.5 ml)) 5,000 unit BID SC Last administered on 10/10/16 09:45; Admin Dose 5,000 UNIT; Start 09/29/16 at 09:00 Acetaminophen 650 mg 650 mg Q6H PRN GTB PAIN AND OR ELEVATED TEMP Last administered on 10/04/16 21:27; Admin Dose 650 MG; Start 10/02/16 at 08:00 Metronidazole (Flagyl 500 Mg (Pmx)) 100 ml @ 100 mls/hr Q8 IVPB Last administered on 10/10/16 14:38; Admin Dose 100 MLS/HR; Start 10/02/16 at 14:00 Midodrine (Proamatine) 10 mg TID@,,17 PO Last administered on 10/06/16 17: 15; Admin Dose 10 MG; Start 10/06/16 at 01:00; Status Future Hold Mupirocin 1 applic 1 applic BID TOP Last administered on 10/10/16 09:46; Admin Dose 1 APPLIC; Start 10/06/16 at 21:00 Sodium Bicarbonate 100 meq/Dextrose 1,100 ml @ 80 mls/hr [id number] IV Last administered on 10/10/16 12:02; Admin Dose 80 MLS/HR; Start 10/06/16 at 11:00 Meropenem 100 ml @ 200 mls/hr Q12 IVPB Last administered on 10/10/16 09:45; Admin Dose 200 MLS/HR; Start 10/06/16 at 14:00 Norepinephrine 16 mg/Dextrose 500 ml @ 1.87 mls/hr TITRATE IV Last administered on 10/09/16 14:43; Admin Dose 15 MLS/HR; Start 10/06/16 at 16:30 Linezolid (Zyvox 600mg/D5W (Pmx)) 300 ml @ 300 mls/hr Q12 IVPB Last administered on 10/09/16 21:00; Admin Dose 300 MLS/HR; Start 10/06/16 at 21:00 Levothyroxine Sodium (Synthroid Iv) 12.5 mcg DAILY@06 IV Last administered on 06:40; Admin Dose 12.5 MCG; Start 10/07/16 at 06:00 Metoclopramide HCl (Reglan) 5 mg Q8 IV Last administered on 10/10/16 14:38; Admin Dose 5 MG; Start 10/06/16 at 22:00 Voriconazole (Vfend) 200 mg BID PO Last administered on 10/10/16 09:45; Admin Dose 200 MG; Start 10/08/16 at 21:00 Ryder Wild DO Oct 10, 2016 17:53
[2016-10-10] MEDS: ACETAMINOPHEN 650MG/20.3ML CUP GTB PRN (20:23)
[2016-10-10] MEDS: LINEZOLID 600 MG/D5W (PMX) 300 ML IVPB SCH (20:24)
--- NOTE | 2016-10-10 21:23 | PN ---
DATE: 10/10/2016 SUBJECTIVE: Penoscrotal edema, and the patient himself is not capable of expressing any complaint. The patient was full code before, but as of this morning, he was changed to a DNR. OBJECTIVE: VITAL SIGNS: Temperature is 98.5, pulse is 121, respiration 24, blood pressure 107/65. ABDOMEN: Distended. GENITOURINARY: The penoscrotal edema is still very significant, and also patient is very contracted , impossible to separate his legs apart. Cee catheter that he has is draining clear urine. 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 He is on voriconazole because of that 200 mg twice a d ay. IMPRESSION: 1. Penoscrotal edema. 2. The patient has urinary tract infection with teresita. PLAN: Keep the Cee catheter in, elevate the scrotum and penis on a towel all the time and continu e his antifungal medications. Dictated By: MISHEL WOODWARD/ELIZABETH Conf#: [id number] DID#: [id number]
--- NOTE | 2016-10-10 23:33 | CONS ---
Date/Time of Note Date/Time of Note DATE: 10/10/16 TIME: 23:33 Assessment/Plan Assessment/Plan Chief Complaint/Hosp Course ANEMIA - NEAR- MICROCYTIC WITH INCREASED RDW DROP H/H DURING HOSPITALIZATION + ACD TRANSFUSE PRBC TO KEEP HB MORE THAN 8 TRANSFUSE NEEDED GI F-UP Stool OB, negative Monitor H&H every 8 hours, transfuse 2 units for hemoglobin less than 8 Continue PPI drips EGD PER Suchov LEUKOCYTOSIS- REACTIVE CONT ATB FOR SEPSIS THROMBOCYTOSIS REACTIVE SHOULD IMPROVE WITH RESOLUTION OF SEPSIS Severe sepsis with septic shock 2/2 Decub ulcers and/or UTI and/or PNA: stable, off pressor support Severe hypernatremic dehydration Acute renal failure 2/2 ATN from dehydration UTI Multifocal pneumonia Encephalopathy ?acute versus acute on chronic (baseline unknown) Hypokalemia Problems: Consultation Date/Type/Reason Admit Date/Time Sep 24, 2016 at 03:19 Initial Consult Date 09/24/16 Type of Consultation: HEMEONC Referring Provider: ROULA DEL TORO 24 HR Interval Summary Free Text/Dictation all noted Exam/Review of Systems Vital Signs Vitals Vital Signs Date Time Temp Pulse Resp B/P Pulse Ox O2 Delivery O2 Flow Rate FiO2 10/10/16 23:23 109 22 99 30 10/10/16 21:30 92/63 Mechanical Ventilator 10/10/16 20:00 99.0 Intake and Output 10/09/16 10/09/16 10/10/16 15:00 23:00 07:00 Intake Total 1305 ml 1163.25 ml 801.0 ml Output Total 375 ml 560 ml 350 ml Balance 930 ml 603.25 ml 451.0 ml Exam Constitutional: No alert, No oriented Psych: No nl mood/affect Head: atraumatic, normocephalic Eyes: nl conjunctiva, No EOMI, No icteric ENMT: mucosa pink and moist, nl external ears & nose Neck: jvd, other (Trach in place), No non-tender, No supple Respiratory: No congested cough, No labored breathing Cardiovascular: No regular rate and rhythm Gastrointestinal: non-tender, other (PEG in place), soft, No rebound or guarding Musculoskeletal: No joint tenderness, No nl extremities to inspection, No nl gait and stance Extremities: No calf tenderness, No cyanosis Neurological: No nl mental status, No nl speech, No nl strength Skin: rash or lesions (Multiple decubitus ulcerations with debris, necrotic tissue, deep tissue injury), No diaphoresis, No nl turgor Lymph: nontender Results Result Diagram: 10/10/16 0400 10/10/16 0400 Results 24 hrs Laboratory Tests Test 10/10/16 00:37 10/10/16 04:00 10/10/16 06:39 10/10/16 12:01 Bedside Glucose 135 112 90 White Blood Count 12.4 #H Red Blood Count 3.39 L Hemoglobin 8.5 L Hematocrit 28.5 L Mean Corpuscular Volume 84.1 Mean Corpuscular Hemoglobin 25.1 L Mean Corpuscular Hemoglobin Concent 29.8 L Red Cell Distribution Width 20.3 H Platelet Count 281 # Mean Platelet Volume 11.1 H Neutrophils % 79.4 H Lymphocytes % 9.6 L Monocytes % 6.6 Eosinophils % 3.1 Basophils % 0.2 Nucleated Red Blood Cells % 0.0 Neutrophils # 9.8 H Lymphocytes # 1.2 Monocytes # 0.8 Eosinophils # 0.4 Basophils # 0.0 Nucleated Red Blood Cells # 0.0 Sodium Level 136 Potassium Level 3.1 L Chloride Level 100 Carbon Dioxide Level 19 L Anion Gap 20 H Blood Urea Nitrogen 39 H Creatinine 1.27 H Glucose Level 94 Calcium Level 7.2 L Phosphorus Level 4.6 Magnesium Level 1.6 L Test 10/10/16 18:40 10/10/16 20:42 Bedside Glucose 96 118 Medications Medications Current Medications Acetaminophen (Tylenol Supp) 650 mg Q4H PRN [place] PAIN LEVEL 1-3 OR FEVER; Start 09/24/16 at 03:00 Eye Lubricant (Artificial Tears Oph) 1 drop TID BOTH EYES Last administered on 10/10/16 20:25; Admin Dose 1 DROP; Start 09/24/16 at 09:00 Sodium Hypochlorite (Dakin'S (1/4 Strength)) 1 applic BID IRR Last administered on 10/10/16 20:25; Admin Dose 1 APPLIC; Start 09/24/16 at 21:00 Pantoprazole (Protonix Iv) 40 mg BID@06,18 IV Last administered on 10/10/16 18: 06; Admin Dose 40 MG; Start 09/24/16 at 18:00 Collagenase (Santyl) 1 applic DAILY TOP Last administered on 10/10/16 09:46; Admin Dose 1 APPLIC; Start 09/24/16 at 20:30 Miscellaneous Information 1 ea NOTE XX ; Start 09/24/16 at 21:00 Glucose (Glutose) 15 gm Q15M PRN PO DECREASED GLUCOSE; Start 09/24/16 at 21:00 Glucose (Glutose) 22.5 gm Q15M PRN PO DECREASED GLUCOSE; Start 09/24/16 at 21: 00 Dextrose (D50w Syringe) 25 ml Q15M PRN IV DECREASED GLUCOSE; Start 09/24/16 at 21:00 Dextrose (D50w Syringe) 50 ml Q15M PRN IV DECREASED GLUCOSE; Start 09/24/16 at 21:00 Glucagon (Glucagen) 1 mg Q15M PRN IM DECREASED GLUCOSE; Start 09/24/16 at 21:00 Glucose 15 gm 15 gm Q15M PRN BUCCAL DECREASED GLUCOSE; Start 09/24/16 at 21:00 Acetaminophen (Ofirmev 1000mg/ 100ml Iv) 100 ml @ 400 mls/hr Q6H PRN IVPB FEVER Last administered on 10/07/16 17:14; Admin Dose 400 MLS/HR; Start at 22:00 Vancomycin HCl (Vancomycin Oral Syringe) 250 mg Q6 PO Last administered on 17:15; Admin Dose 250 MG; Start 09/26/16 at 18:00; Status Future Hold Lactobacillus Acidoph/Bulgaricus (Floranex) 1 tab TID PO Last administered on 13:22; Admin Dose 1 TAB; Start 09/26/16 at 21:00; Status Future Hold Atorvastatin Calcium (Lipitor) 20 mg QHS GTB Last administered on 10/05/16 21: 42; Admin Dose 20 MG; Start 09/28/16 at 21:00; Status Future Hold Finasteride (Proscar) 5 mg DAILY GTB Last administered on 10/06/16 09:12; Admin Dose 5 MG; Start 09/29/16 at 09:00; Status Future Hold Multivitamins Therapeutic (Theragran) 1 tab DAILY GTB Last administered on 09:12; Admin Dose 1 TAB; Start 09/29/16 at 09:00; Status Future Hold Zinc Sulfate (Zinc Sulfate) 220 mg DAILY NGT Last administered on 10/06/16 09: 13; Admin Dose 220 MG; Start 09/29/16 at 09:00; Status Future Hold Insulin Aspart (Novolog Insulin Pen) NOVOLOG *MILD* ALGORI... Q6 SC ; Start at 18:00 Ondansetron HCl (Zofran Inj) 4 mg Q6H PRN IV NAUSEA AND/OR VOMITING Last administered on 10/05/16 17:42; Admin Dose 4 MG; Start 09/29/16 at 07:30 Heparin Sodium (Porcine) (Heparin (5000 Units/0.5 ml)) 5,000 unit BID SC Last administered on 10/10/16 20:33; Admin Dose 5,000 UNIT; Start 09/29/16 at 09:00 Acetaminophen 650 mg 650 mg Q6H PRN GTB PAIN AND OR ELEVATED TEMP Last administered on 10/10/16 20:23; Admin Dose 650 MG; Start 10/02/16 at 08:00 Metronidazole (Flagyl 500 Mg (Pmx)) 100 ml @ 100 mls/hr Q8 IVPB Last administered on 10/10/16 23:02; Admin Dose 100 MLS/HR; Start 10/02/16 at 14:00 Midodrine (Proamatine) 10 mg TID@,,17 PO Last administered on 10/06/16 17: 15; Admin Dose 10 MG; Start 10/06/16 at 01:00; Status Future Hold Mupirocin 1 applic 1 applic BID TOP Last administered on 10/10/16 20:25; Admin Dose 1 APPLIC; Start 10/06/16 at 21:00 Sodium Bicarbonate 100 meq/Dextrose 1,100 ml @ 80 mls/hr [id number] IV Last administered on 10/10/16 12:02; Admin Dose 80 MLS/HR; Start 10/06/16 at 11:00 Meropenem 100 ml @ 200 mls/hr Q12 IVPB Last administered on 10/10/16 20:24; Admin Dose 200 MLS/HR; Start 10/06/16 at 14:00 Norepinephrine 16 mg/Dextrose 500 ml @ 1.87 mls/hr TITRATE IV Last administered on 10/09/16 14:43; Admin Dose 15 MLS/HR; Start 10/06/16 at 16:30 Linezolid (Zyvox 600mg/D5W (Pmx)) 300 ml @ 300 mls/hr Q12 IVPB Last administered on 10/10/16 20:24; Admin Dose 300 MLS/HR; Start 10/06/16 at 21:00 Levothyroxine Sodium (Synthroid Iv) 12.5 mcg DAILY@06 IV Last administered on 06:40; Admin Dose 12.5 MCG; Start 10/07/16 at 06:00 Metoclopramide HCl (Reglan) 5 mg Q8 IV Last administered on 10/10/16 22:57; Admin Dose 5 MG; Start 10/06/16 at 22:00 Voriconazole (Vfend) 200 mg BID PO Last administered on 10/10/16 20:23; Admin Dose 200 MG; Start 10/08/16 at 21:00 SCOTT RODRIGUES MD Oct 10, 2016 23:33
[2016-10-11] VITALS (94 sets, daily range): BP systolic 83–111; BP diastolic 45–81; PULSE 98–123; RESP 13–28
[2016-10-11] MEDS: IPRATROPIUM (HFA) 12.9 GM INHALER INH SCH ×4 (01:25→19:42)
[2016-10-11] MEDS: ALBUTEROL HFA 8 GM INHALER INH SCH ×4 (01:25→19:41)
[2016-10-11] MEDS: SODIUM BICARBONATE (IV ADD) 100 MEQ in DEXTROSE 5% 1,000 ML IV SCH (05:00)
[2016-10-11 05:28] LABS: ADD SCAN DIFF NO
[2016-10-11 05:34] LABS: BASOPHILS % 0.3 % (0.0-2.0); EOSINOPHILS # 0.2 10^3/ul (0.0-0.5); EOSINOPHILS % 2.3 % (0.0-7.0); HEMATOCRIT 27.4 % (42.0-52.0); HEMOGLOBIN 8.2 g/dl (14.0-18.0); LYMPHOCYTES # 1.2 10^3/ul (0.8-2.9); LYMPHOCYTES % 12.1 % (15.0-51.0); MEAN CORPUSCULAR HEMOGLOBIN 24.8 pg (29.0-33.0); MEAN CORPUSCULAR HGB CONC 29.9 g/dl (32.0-37.0); MEAN CORPUSCULAR VOLUME 82.8 fl (82.0-101.0); MEAN PLATELET VOLUME 10.5 fl (7.4-10.4); MONOCYTE # 0.7 10^3/ul (0.3-0.9); MONOCYTES % 7.4 % (0.0-11.0); NEUTROPHIL # 7.6 10^3/ul (1.6-7.5); NEUTROPHILS % 76.7 % (39.0-77.0); PLATELET COUNT 212 10^3/UL (140-415); RED BLOOD COUNT 3.31 10^6/ul (4.70-6.10); RED CELL DISTRIBUTION WIDTH 20.2 % (11.5-14.5); WHITE BLOOD COUNT 9.9 10^3/ul (4.8-10.8)
[2016-10-11] MEDS: LEVOTHYROXINE 100 MCG VIAL IV SCH (05:38)
[2016-10-11] MEDS: PANTOPRAZOLE 40 MG INJ IV SCH ×2 (05:38→18:30)
[2016-10-11] MEDS: metroNIDAZOLE 500 MG/NS (PMX) 100 ML IVPB SCH ×3 (05:39→21:39)
[2016-10-11] MEDS: METOCLOPRAMIDE 10 MG INJ IV SCH ×3 (05:42→21:39)
[2016-10-11] MEDS: INSULIN ASPART [NOVOLOG] 3 ML PEN SC SCH ×4 (05:56→18:00)
[2016-10-11 06:00] LABS: CALCIUM 6.9 mg/dl (8.4-10.2); CREATININE 0.98 mg/dl (0.61-1.24); POTASSIUM 3.2 mmol/L (3.5-5.1)
[2016-10-11 06:02] LABS: MAGNESIUM 1.7 mg/dl (1.7-2.5); PHOSPHORUS 4.2 mg/dl (2.5-4.9)
--- NOTE | 2016-10-11 08:32 | PN ---
Date/Time of Note Date/Time of Note DATE: 10/11/16 TIME: 08:29 Assessment/Plan VTE Prophylaxis VTE Prophylaxis Intervention: heparin Lines/Catheters IV Catheter Type (from [facility]): Central Line Central line still needed: Yes Urinary Cath still in place: Yes Reason Cath still needed: skin wounds contaminated by urine Assessment/Plan Chief Complaint/Hosp Course 1. Sepsis with underlying septic shock secondary to infected sacral decubitus wound. The wound culture has been positive for Klebsiella pneumoniae, Acinetobacter baumannii, vancomycin-resistant Enterococcus and Staph aureus. Continue antimicrobials as per infectious diseases. Wean off IV pressors as tolerated. 2. Infected sacral decubitus ulcer. Continue pain management. Continue local dressing changes as per wound care consultants. 3. Chronic respiratory failure. Status post tracheostomy and vent dependent. Continue inhaled bronchodilators. Pulmonary following the patient. 4. Acute renal failure. Most probably secondary to hemodynamics versus from acute tubular necrosis. Continue to use nephrotoxic medications with caution. 5. 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 Continue antimicrobials as per ID. 6. 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 Continue supportive care. 7. Hypothyroidism. Continue Synthroid. 8. Dysphagia secondary to encephalopathy. Continue aspiration precautions. Continue G tube feedings. 9. Normocytic anemia. Continue to monitor the H and H closely. Transfuse as needed. 10. Leukocytosis with thrombocytosis. The patient being followed by Hematology. Continue to monitor. 11. Ileus. Continue Reglan. Being followed by gastroenterology and Surgery. Advance tube feeds as tolerated. 12. Moderate . Continue monitoring. 13. DVT prophylaxis. Subcutaneous heparin. 14. Gastrointestinal prophylaxis. Proton pump inhibitors. 15 Fluid, electrolytes and nutrition. Continue G tube feedings. 16. Gastrointestinal prophylaxis. Proton pump inhibitors. PLAN: 1. Continue ICU monitoring. 2. Replete potassium and magnesium. 3. Continue to wean off pressors as tolerated. 4. Poor prognosis. Palliative care on the case. Case discussed with Dr. Chang. CRITICAL CARE TIME: 35 minutes. Problems: Subjective 24 Hr Interval Summary Free Text/Dictation The patient remains on pressors. Exam/Review of Systems Vital Signs Vitals Vital Signs Date Time Temp Pulse Resp B/P Pulse Ox O2 Delivery O2 Flow Rate FiO2 10/11/16 07:40 107 20 100 30 10/11/16 06:15 94/64 Mechanical Ventilator 10/11/16 04:00 98.6 Intake and Output 10/10/16 10/10/16 10/11/16 15:00 23:00 07:00 Intake Total 975.296 ml 1181.84 ml 820.61 ml Output Total 830 ml 300 ml 245 ml Balance 145.296 ml 881.84 ml 575.61 ml Exam GENERAL: This is an elderly, frail-looking male lying in bed in no apparent distress. HEENT: Head normocephalic and atraumatic. Eyes: Anicteric sclerae. Conjunctivae clear. ENT: Nasal septum is midline. Oral mucosa is dry. NECK: Supple. Tracheostomy midline. RESPIRATORY: A tracheostomy connected to mechanical ventilator. On AC mode ventilation. CARDIAC: Regular rate and rhythm with a grade III/ systolic ejection murmur. ABDOMEN: Soft, nontender and nondistended. G-tube in place. GENITOURINARY: Cee catheter in place. EXTREMITIES: No cyanosis, no clubbing. Peripheral pulses. Bilateral upper extremity edema. Bilateral foot edema. Contracted bilateral upper and bilateral lower extremities. NEUROLOGIC: The patient is obtunded. Results Result Diagram: 10/11/16 0440 10/11/16 0440 Results 24 hrs Laboratory Tests Test 10/10/16 12:01 10/10/16 18:40 10/10/16 20:42 10/11/16 04:40 Bedside Glucose 90 96 118 White Blood Count 9.9 # Red Blood Count 3.31 L Hemoglobin 8.2 L Hematocrit 27.4 L Mean Corpuscular Volume 82.8 Mean Corpuscular Hemoglobin 24.8 L Mean Corpuscular Hemoglobin Concent 29.9 L Red Cell Distribution Width 20.2 H Platelet Count 212 # Mean Platelet Volume 10.5 H Neutrophils % 76.7 Lymphocytes % 12.1 L Monocytes % 7.4 Eosinophils % 2.3 Basophils % 0.3 Nucleated Red Blood Cells % 0.0 Neutrophils # 7.6 H Lymphocytes # 1.2 Monocytes # 0.7 Eosinophils # 0.2 Basophils # 0.0 Nucleated Red Blood Cells # 0.0 Sodium Level 134 L Potassium Level 3.2 L Chloride Level 102 Carbon Dioxide Level 23 Anion Gap 12 # Blood Urea Nitrogen 33 H Creatinine 0.98 Glucose Level 92 Calcium Level 6.9 L Phosphorus Level 4.2 Magnesium Level 1.7 Test 10/11/16 05:37 Bedside Glucose 103 Medications Medications Current Medications Acetaminophen (Tylenol Supp) 650 mg Q4H PRN [place] PAIN LEVEL 1-3 OR FEVER; Start 09/24/16 at 03:00 Eye Lubricant (Artificial Tears Oph) 1 drop TID BOTH EYES Last administered on 10/10/16 20:25; Admin Dose 1 DROP; Start 09/24/16 at 09:00 Sodium Hypochlorite (Dakin'S (1/4 Strength)) 1 applic BID IRR Last administered on 10/10/16 20:25; Admin Dose 1 APPLIC; Start 09/24/16 at 21:00 Pantoprazole (Protonix Iv) 40 mg BID@06,18 IV Last administered on 10/11/16 05: 38; Admin Dose 40 MG; Start 09/24/16 at 18:00 Collagenase (Santyl) 1 applic DAILY TOP Last administered on 10/10/16 09:46; Admin Dose 1 APPLIC; Start 09/24/16 at 20:30 Miscellaneous Information 1 ea NOTE XX ; Start 09/24/16 at 21:00 Glucose (Glutose) 15 gm Q15M PRN PO DECREASED GLUCOSE; Start 09/24/16 at 21:00 Glucose (Glutose) 22.5 gm Q15M PRN PO DECREASED GLUCOSE; Start 09/24/16 at 21: 00 Dextrose (D50w Syringe) 25 ml Q15M PRN IV DECREASED GLUCOSE; Start 09/24/16 at 21:00 Dextrose (D50w Syringe) 50 ml Q15M PRN IV DECREASED GLUCOSE; Start 09/24/16 at 21:00 Glucagon (Glucagen) 1 mg Q15M PRN IM DECREASED GLUCOSE; Start 09/24/16 at 21:00 Glucose 15 gm 15 gm Q15M PRN BUCCAL DECREASED GLUCOSE; Start 09/24/16 at 21:00 Acetaminophen (Ofirmev 1000mg/ 100ml Iv) 100 ml @ 400 mls/hr Q6H PRN IVPB FEVER Last administered on 10/07/16 17:14; Admin Dose 400 MLS/HR; Start at 22:00 Vancomycin HCl (Vancomycin Oral Syringe) 250 mg Q6 PO Last administered on 17:15; Admin Dose 250 MG; Start 09/26/16 at 18:00; Status Future Hold Lactobacillus Acidoph/Bulgaricus (Floranex) 1 tab TID PO Last administered on 13:22; Admin Dose 1 TAB; Start 09/26/16 at 21:00; Status Future Hold Atorvastatin Calcium (Lipitor) 20 mg QHS GTB Last administered on 10/05/16 21: 42; Admin Dose 20 MG; Start 09/28/16 at 21:00; Status Future Hold Finasteride (Proscar) 5 mg DAILY GTB Last administered on 10/06/16 09:12; Admin Dose 5 MG; Start 09/29/16 at 09:00; Status Future Hold Multivitamins Therapeutic (Theragran) 1 tab DAILY GTB Last administered on 09:12; Admin Dose 1 TAB; Start 09/29/16 at 09:00; Status Future Hold Zinc Sulfate (Zinc Sulfate) 220 mg DAILY NGT Last administered on 10/06/16 09: 13; Admin Dose 220 MG; Start 09/29/16 at 09:00; Status Future Hold Insulin Aspart (Novolog Insulin Pen) NOVOLOG *MILD* ALGORI... Q6 SC ; Start at 18:00 Ondansetron HCl (Zofran Inj) 4 mg Q6H PRN IV NAUSEA AND/OR VOMITING Last administered on 10/05/16 17:42; Admin Dose 4 MG; Start 09/29/16 at 07:30 Heparin Sodium (Porcine) (Heparin (5000 Units/0.5 ml)) 5,000 unit BID SC Last administered on 10/10/16 20:33; Admin Dose 5,000 UNIT; Start 09/29/16 at 09:00 Acetaminophen 650 mg 650 mg Q6H PRN GTB PAIN AND OR ELEVATED TEMP Last administered on 10/10/16 20:23; Admin Dose 650 MG; Start 10/02/16 at 08:00 Metronidazole (Flagyl 500 Mg (Pmx)) 100 ml @ 100 mls/hr Q8 IVPB Last administered on 10/11/16 05:39; Admin Dose 100 MLS/HR; Start 10/02/16 at 14:00 Midodrine (Proamatine) 10 mg TID@,,17 PO Last administered on 10/06/16 17: 15; Admin Dose 10 MG; Start 10/06/16 at 01:00; Status Future Hold Mupirocin 1 applic 1 applic BID TOP Last administered on 10/10/16 20:25; Admin Dose 1 APPLIC; Start 10/06/16 at 21:00 Sodium Bicarbonate 100 meq/Dextrose 1,100 ml @ 80 mls/hr [id number] IV Last administered on 10/11/16 05:00; Admin Dose 80 MLS/HR; Start 10/06/16 at 11:00 Meropenem 100 ml @ 200 mls/hr Q12 IVPB Last administered on 10/10/16 20:24; Admin Dose 200 MLS/HR; Start 10/06/16 at 14:00 Norepinephrine 16 mg/Dextrose 500 ml @ 1.87 mls/hr TITRATE IV Last administered on 10/09/16 14:43; Admin Dose 15 MLS/HR; Start 10/06/16 at 16:30 Linezolid (Zyvox 600mg/D5W (Pmx)) 300 ml @ 300 mls/hr Q12 IVPB Last administered on 10/10/16 20:24; Admin Dose 300 MLS/HR; Start 10/06/16 at 21:00 Levothyroxine Sodium (Synthroid Iv) 12.5 mcg DAILY@06 IV Last administered on 05:38; Admin Dose 12.5 MCG; Start 10/07/16 at 06:00 Metoclopramide HCl (Reglan) 5 mg Q8 IV Last administered on 10/11/16 05:42; Admin Dose 5 MG; Start 10/06/16 at 22:00 Voriconazole (Vfend) 200 mg BID PO Last administered on 10/10/16 20:23; Admin Dose 200 MG; Start 10/08/16 at 21:00 BIGG HEWITT NP Oct 11, 2016 08:32
[2016-10-11] MEDS ORDERED: POTASSIUM CHLORIDE 250 ML IVPB ONE (09:00)
[2016-10-11] MEDS ORDERED: MAGNESIUM SULFATE 2 GM/50 ML 50 ML IVPB ONE (09:00)
[2016-10-11] MEDS: MEROPENEM 500 MG/100 ML (PMX) 100 ML IVPB SCH (09:57)
[2016-10-11] MEDS: VORICONAZOLE 200 MG TAB PO SCH ×2 (09:58→21:39)
[2016-10-11] MEDS: LINEZOLID 600 MG/D5W (PMX) 300 ML IVPB SCH ×2 (09:58→21:39)
[2016-10-11] MEDS: HEPARIN 5,000 UNIT/0.5 ML VIAL SC SCH ×2 (09:58→21:41)
[2016-10-11] MEDS: MUPIROCIN 2% 22 GM OINT TOP SCH (09:59)
[2016-10-11] MEDS: SODIUM HYPOCHLORITE 0.125% 473 ML BTL IRR SCH ×2 (09:59→21:53)
[2016-10-11] MEDS: ARTIFICIAL TEARS 15 ML OPH BOTH EYES SCH ×3 (09:59→21:39)
[2016-10-11] MEDS: COLLAGENASE 30 GM TUBE TOP SCH (09:59)
[2016-10-11] MEDS ORDERED: SOD CHLORIDE 0.9% 500 ML IV ONE (10:00)
--- NOTE | 2016-10-11 11:14 | CONS ---
Date/Time of Note Date/Time of Note DATE: 10/11/16 TIME: 11:12 Consult Date/Type/Reason Admit Date/Time Sep 24, 2016 at 03:19 Initial Consult Date 09/24/16 Type of Consultation: pulmonary Ordering Provider: ROULA DEL TORO Subjective Patient comfortable this morning continues low-dose vasopressors Objective Vital Signs Date Time Temp Pulse Resp B/P Pulse Ox O2 Delivery O2 Flow Rate FiO2 10/11/16 10:45 107 16 92/54 98 10/11/16 10:00 Mechanical Ventilator 10/11/16 08:00 98.6 10/11/16 07:40 30 Intake and Output 10/10/16 10/10/16 10/11/16 15:00 23:00 07:00 Intake Total 975.296 ml 1181.84 ml 820.61 ml Output Total 830 ml 300 ml 245 ml Balance 145.296 ml 881.84 ml 575.61 ml Exam PHYSICAL EXAMINATION GENERAL: Elderly gentleman, tracheostomy on mechanical ventilation, opens eyes and appears somewhat agitated. VITAL SIGNS: see below. HEENT: Pupils equal, round, and reactive to light. Tracheostomy site clean and intact. CARDIAC: S1, S2, 2/6 systolic ejection murmur CHEST: Diminished air entry bilaterally. ABDOMEN: Mildly distended. Diminished bowel sounds no guarding or rebound EXTREMITIES: No cyanosis, clubbing edema +1 NEUROLOGIC: Unable to assess Results/Medications Result Diagram: 10/11/16 0440 10/11/160 Results 24 hrs Laboratory Tests Test 10/10/16 12:01 10/10/16 18:40 10/10/16 20:42 10/11/16 04:40 Bedside Glucose 90 96 118 White Blood Count 9.9 # Red Blood Count 3.31 L Hemoglobin 8.2 L Hematocrit 27.4 L Mean Corpuscular Volume 82.8 Mean Corpuscular Hemoglobin 24.8 L Mean Corpuscular Hemoglobin Concent 29.9 L Red Cell Distribution Width 20.2 H Platelet Count 212 # Mean Platelet Volume 10.5 H Neutrophils % 76.7 Lymphocytes % 12.1 L Monocytes % 7.4 Eosinophils % 2.3 Basophils % 0.3 Nucleated Red Blood Cells % 0.0 Neutrophils # 7.6 H Lymphocytes # 1.2 Monocytes # 0.7 Eosinophils # 0.2 Basophils # 0.0 Nucleated Red Blood Cells # 0.0 Sodium Level 134 L Potassium Level 3.2 L Chloride Level 102 Carbon Dioxide Level 23 Anion Gap 12 # Blood Urea Nitrogen 33 H Creatinine 0.98 Glucose Level 92 Calcium Level 6.9 L Phosphorus Level 4.2 Magnesium Level 1.7 Test 10/11/16 05:37 Bedside Glucose 103 Medications Current Medications Acetaminophen (Tylenol Supp) 650 mg Q4H PRN [place] PAIN LEVEL 1-3 OR FEVER; Start 09/24/16 at 03:00 Eye Lubricant (Artificial Tears Oph) 1 drop TID BOTH EYES Last administered on 10/11/16 09:59; Admin Dose 1 DROP; Start 09/24/16 at 09:00 Sodium Hypochlorite (Dakin'S (1/4 Strength)) 1 applic BID IRR Last administered on 10/11/16 09:59; Admin Dose 1 APPLIC; Start 09/24/16 at 21:00 Pantoprazole (Protonix Iv) 40 mg BID@06,18 IV Last administered on 10/11/16 05: 38; Admin Dose 40 MG; Start 09/24/16 at 18:00 Collagenase (Santyl) 1 applic DAILY TOP Last administered on 10/11/16 09:59; Admin Dose 1 APPLIC; Start 09/24/16 at 20:30 Miscellaneous Information 1 ea NOTE XX ; Start 09/24/16 at 21:00 Glucose (Glutose) 15 gm Q15M PRN PO DECREASED GLUCOSE; Start 09/24/16 at 21:00 Glucose (Glutose) 22.5 gm Q15M PRN PO DECREASED GLUCOSE; Start 09/24/16 at 21: 00 Dextrose (D50w Syringe) 25 ml Q15M PRN IV DECREASED GLUCOSE; Start 09/24/16 at 21:00 Dextrose (D50w Syringe) 50 ml Q15M PRN IV DECREASED GLUCOSE; Start 09/24/16 at 21:00 Glucagon (Glucagen) 1 mg Q15M PRN IM DECREASED GLUCOSE; Start 09/24/16 at 21:00 Glucose 15 gm 15 gm Q15M PRN BUCCAL DECREASED GLUCOSE; Start 09/24/16 at 21:00 Acetaminophen (Ofirmev 1000mg/ 100ml Iv) 100 ml @ 400 mls/hr Q6H PRN IVPB FEVER Last administered on 10/07/16 17:14; Admin Dose 400 MLS/HR; Start at 22:00 Vancomycin HCl (Vancomycin Oral Syringe) 250 mg Q6 PO Last administered on 17:15; Admin Dose 250 MG; Start 09/26/16 at 18:00; Status Future Hold Lactobacillus Acidoph/Bulgaricus (Floranex) 1 tab TID PO Last administered on 13:22; Admin Dose 1 TAB; Start 09/26/16 at 21:00; Status Future Hold Atorvastatin Calcium (Lipitor) 20 mg QHS GTB Last administered on 10/05/16 21: 42; Admin Dose 20 MG; Start 09/28/16 at 21:00; Status Future Hold Finasteride (Proscar) 5 mg DAILY GTB Last administered on 10/06/16 09:12; Admin Dose 5 MG; Start 09/29/16 at 09:00; Status Future Hold Multivitamins Therapeutic (Theragran) 1 tab DAILY GTB Last administered on 09:12; Admin Dose 1 TAB; Start 09/29/16 at 09:00; Status Future Hold Zinc Sulfate (Zinc Sulfate) 220 mg DAILY NGT Last administered on 10/06/16 09: 13; Admin Dose 220 MG; Start 09/29/16 at 09:00; Status Future Hold Insulin Aspart (Novolog Insulin Pen) NOVOLOG *MILD* ALGORI... Q6 SC ; Start at 18:00 Ondansetron HCl (Zofran Inj) 4 mg Q6H PRN IV NAUSEA AND/OR VOMITING Last administered on 10/05/16 17:42; Admin Dose 4 MG; Start 09/29/16 at 07:30 Heparin Sodium (Porcine) (Heparin (5000 Units/0.5 ml)) 5,000 unit BID SC Last administered on 10/11/16 09:58; Admin Dose 5,000 UNIT; Start 09/29/16 at 09:00 Acetaminophen 650 mg 650 mg Q6H PRN GTB PAIN AND OR ELEVATED TEMP Last administered on 10/10/16 20:23; Admin Dose 650 MG; Start 10/02/16 at 08:00 Metronidazole (Flagyl 500 Mg (Pmx)) 100 ml @ 100 mls/hr Q8 IVPB Last administered on 10/11/16 05:39; Admin Dose 100 MLS/HR; Start 10/02/16 at 14:00 Midodrine (Proamatine) 10 mg TID@,,17 PO Last administered on 10/06/16 17: 15; Admin Dose 10 MG; Start 10/06/16 at 01:00; Status Future Hold Mupirocin 1 applic 1 applic BID TOP Last administered on 10/11/16 09:59; Admin Dose 1 APPLIC; Start 10/06/16 at 21:00 Sodium Bicarbonate 100 meq/Dextrose 1,100 ml @ 80 mls/hr [id number] IV Last administered on 10/11/16 05:00; Admin Dose 80 MLS/HR; Start 10/06/16 at 11:00 Meropenem 100 ml @ 200 mls/hr Q12 IVPB Last administered on 10/11/16 09:57; Admin Dose 200 MLS/HR; Start 10/06/16 at 14:00; Stop 10/11/16 at 12:00 Norepinephrine 16 mg/Dextrose 500 ml @ 1.87 mls/hr TITRATE IV Last administered on 10/09/16 14:43; Admin Dose 15 MLS/HR; Start 10/06/16 at 16:30 Linezolid (Zyvox 600mg/D5W (Pmx)) 300 ml @ 300 mls/hr Q12 IVPB Last administered on 10/11/16 09:58; Admin Dose 300 MLS/HR; Start 10/06/16 at 21:00 Levothyroxine Sodium (Synthroid Iv) 12.5 mcg DAILY@06 IV Last administered on 05:38; Admin Dose 12.5 MCG; Start 10/07/16 at 06:00 Metoclopramide HCl (Reglan) 5 mg Q8 IV Last administered on 10/11/16 05:42; Admin Dose 5 MG; Start 10/06/16 at 22:00 Voriconazole 200 mg 200 mg BID PO Last administered on 10/11/16 09:58; Admin Dose 200 MG; Start 10/08/16 at 21:00 Potassium Chloride 250 ml @ 62.5 mls/hr ONCE ONCE IVPB Last administered on 09:58; Admin Dose 62.5 MLS/HR; Start 10/11/16 at 09:00; Stop 10/11/16 at 12:59 Meropenem (Merrem 1 Gm/100 ml (Pmx)) 100 ml @ 200 mls/hr Q12 IVPB ; Start at 21:00 Assessment/Plan Chief Complaint/Hosp Course Assessment 1. Septic shock secondary to pneumonia versus line sepsis possible adrenal insufficiency if fluid challenge does not work try stress dose steroids 2. Significant anemia requiring blood transfusions 3. Vent dependent respiratory failure 4. Dysphagia with G-tube 5. Hypokalemia 6. History of renal insufficiency Plan 1. Continue mechanical ventilation 2. Continue antibiotics per infectious diseases continue vasopressors possible stress dose steroids 3. Monitor H&H 4. Continue renal recommendations, metabolic acidosis noted 5. Continue DVT and GI prophylaxis 6. Bioethics consultation and Palliative care recommendations Disposition Transfer to telemetry once off vasopressors Critical care time 35 minutes Problems: ABBI DELCID [facility] Oct 11, 2016 11:14
--- NOTE | 2016-10-11 12:36 | CONS ---
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 Dawson Consultation Date/Type/Reason Admit Date/Time Sep 24, 2016 at 03:19 Initial Consult Date 09/24/16 Type of Consultation: Gastroenterology Referring Provider: ROULA DEL TORO 24 HR Interval Summary Free Text/Dictation Tube feed with no residual Hemoglobin stable We will order nutrition consult to clarify tube feeding order Exam/Review of Systems Vital Signs Vitals Vital Signs Date Time Temp Pulse Resp B/P Pulse Ox O2 Delivery O2 Flow Rate FiO2 10/11/16 10:45 107 16 92/54 98 10/11/16 10:00 Mechanical Ventilator 10/11/16 08:00 98.6 10/11/16 07:40 30 Intake and Output 10/10/16 10/10/16 10/11/16 15:00 23:00 07:00 Intake Total 975.296 ml 1181.84 ml 840.61 ml Output Total 830 ml 300 ml 320 ml Balance 145.296 ml 881.84 ml 520.61 ml Exam Constitutional: frail, nonverbal at bedside Respiratory: clear to auscultation, diminished breath sounds, other (trach to vent) Cardiovascular: regular rate and rhythm Gastrointestinal: distended, non-tender, soft,Gtube in placed,rectal tube draining Skin: other (multiple decubitus ulcer) Results Result Diagram: 10/11/16 0440 10/11/16 0440 Results 24 hrs Laboratory Tests Test 10/10/16 18:40 10/10/16 20:42 10/11/16 04:40 10/11/16 05:37 Bedside Glucose 96 118 103 White Blood Count 9.9 # Red Blood Count 3.31 L Hemoglobin 8.2 L Hematocrit 27.4 L Mean Corpuscular Volume 82.8 Mean Corpuscular Hemoglobin 24.8 L Mean Corpuscular Hemoglobin Concent 29.9 L Red Cell Distribution Width 20.2 H Platelet Count 212 # Mean Platelet Volume 10.5 H Neutrophils % 76.7 Lymphocytes % 12.1 L Monocytes % 7.4 Eosinophils % 2.3 Basophils % 0.3 Nucleated Red Blood Cells % 0.0 Neutrophils # 7.6 H Lymphocytes # 1.2 Monocytes # 0.7 Eosinophils # 0.2 Basophils # 0.0 Nucleated Red Blood Cells # 0.0 Sodium Level 134 L Potassium Level 3.2 L Chloride Level 102 Carbon Dioxide Level 23 Anion Gap 12 # Blood Urea Nitrogen 33 H Creatinine 0.98 Glucose Level 92 Calcium Level 6.9 L Phosphorus Level 4.2 Magnesium Level 1.7 Medications Medications Current Medications Acetaminophen (Tylenol Supp) 650 mg Q4H PRN [place] PAIN LEVEL 1-3 OR FEVER; Start 09/24/16 at 03:00 Eye Lubricant (Artificial Tears Oph) 1 drop TID BOTH EYES Last administered on 10/11/16 09:59; Admin Dose 1 DROP; Start 09/24/16 at 09:00 Sodium Hypochlorite (Dakin'S (1/4 Strength)) 1 applic BID IRR Last administered on 10/11/16 09:59; Admin Dose 1 APPLIC; Start 09/24/16 at 21:00 Pantoprazole (Protonix Iv) 40 mg BID@06,18 IV Last administered on 10/11/16 05: 38; Admin Dose 40 MG; Start 09/24/16 at 18:00 Collagenase (Santyl) 1 applic DAILY TOP Last administered on 10/11/16 09:59; Admin Dose 1 APPLIC; Start 09/24/16 at 20:30 Miscellaneous Information 1 ea NOTE XX ; Start 09/24/16 at 21:00 Glucose (Glutose) 15 gm Q15M PRN PO DECREASED GLUCOSE; Start 09/24/16 at 21:00 Glucose (Glutose) 22.5 gm Q15M PRN PO DECREASED GLUCOSE; Start 09/24/16 at 21: 00 Dextrose (D50w Syringe) 25 ml Q15M PRN IV DECREASED GLUCOSE; Start 09/24/16 at 21:00 Dextrose (D50w Syringe) 50 ml Q15M PRN IV DECREASED GLUCOSE; Start 09/24/16 at 21:00 Glucagon (Glucagen) 1 mg Q15M PRN IM DECREASED GLUCOSE; Start 09/24/16 at 21:00 Glucose 15 gm 15 gm Q15M PRN BUCCAL DECREASED GLUCOSE; Start 09/24/16 at 21:00 Acetaminophen (Ofirmev 1000mg/ 100ml Iv) 100 ml @ 400 mls/hr Q6H PRN IVPB FEVER Last administered on 10/07/16 17:14; Admin Dose 400 MLS/HR; Start at 22:00 Vancomycin HCl (Vancomycin Oral Syringe) 250 mg Q6 PO Last administered on 17:15; Admin Dose 250 MG; Start 09/26/16 at 18:00; Status Future Hold Lactobacillus Acidoph/Bulgaricus (Floranex) 1 tab TID PO Last administered on 13:22; Admin Dose 1 TAB; Start 09/26/16 at 21:00; Status Future Hold Atorvastatin Calcium (Lipitor) 20 mg QHS GTB Last administered on 10/05/16 21: 42; Admin Dose 20 MG; Start 09/28/16 at 21:00; Status Future Hold Finasteride (Proscar) 5 mg DAILY GTB Last administered on 10/06/16 09:12; Admin Dose 5 MG; Start 09/29/16 at 09:00; Status Future Hold Multivitamins Therapeutic (Theragran) 1 tab DAILY GTB Last administered on 09:12; Admin Dose 1 TAB; Start 09/29/16 at 09:00; Status Future Hold Zinc Sulfate (Zinc Sulfate) 220 mg DAILY NGT Last administered on 10/06/16 09: 13; Admin Dose 220 MG; Start 09/29/16 at 09:00; Status Future Hold Insulin Aspart (Novolog Insulin Pen) NOVOLOG *MILD* ALGORI... Q6 SC ; Start at 18:00 Ondansetron HCl (Zofran Inj) 4 mg Q6H PRN IV NAUSEA AND/OR VOMITING Last administered on 10/05/16 17:42; Admin Dose 4 MG; Start 09/29/16 at 07:30 Heparin Sodium (Porcine) (Heparin (5000 Units/0.5 ml)) 5,000 unit BID SC Last administered on 10/11/16 09:58; Admin Dose 5,000 UNIT; Start 09/29/16 at 09:00 Acetaminophen 650 mg 650 mg Q6H PRN GTB PAIN AND OR ELEVATED TEMP Last administered on 10/10/16 20:23; Admin Dose 650 MG; Start 10/02/16 at 08:00 Metronidazole (Flagyl 500 Mg (Pmx)) 100 ml @ 100 mls/hr Q8 IVPB Last administered on 10/11/16 05:39; Admin Dose 100 MLS/HR; Start 10/02/16 at 14:00 Midodrine (Proamatine) 10 mg TID@09,,17 PO Last administered on 10/06/16 17: 15; Admin Dose 10 MG; Start 10/06/16 at 01:00; Status Future Hold Mupirocin 1 applic 1 applic BID TOP Last administered on 10/11/16 09:59; Admin Dose 1 APPLIC; Start 10/06/16 at 21:00 Sodium Bicarbonate 100 meq/Dextrose 1,100 ml @ 80 mls/hr [id number] IV Last administered on 10/11/16 05:00; Admin Dose 80 MLS/HR; Start 10/06/16 at 11:00 Norepinephrine 16 mg/Dextrose 500 ml @ 1.87 mls/hr TITRATE IV Last administered on 10/09/16 14:43; Admin Dose 15 MLS/HR; Start 10/06/16 at 16:30 Linezolid (Zyvox 600mg/D5W (Pmx)) 300 ml @ 300 mls/hr Q12 IVPB Last administered on 10/11/16 09:58; Admin Dose 300 MLS/HR; Start 10/06/16 at 21:00 Levothyroxine Sodium (Synthroid Iv) 12.5 mcg DAILY@06 IV Last administered on 05:38; Admin Dose 12.5 MCG; Start 10/07/16 at 06:00 Metoclopramide HCl (Reglan) 5 mg Q8 IV Last administered on 10/11/16 05:42; Admin Dose 5 MG; Start 4/2/17 at 22:00 Voriconazole 200 mg 200 mg BID PO Last administered on 10/11/16 09:58; Admin Dose 200 MG; Start 10/08/16 at 21:00 Potassium Chloride 250 ml @ 62.5 mls/hr ONCE ONCE IVPB Last administered on 09:58; Admin Dose 62.5 MLS/HR; Start 10/11/16 at 09:00; Stop 10/11/16 at 12:59 Meropenem (Merrem 1 Gm/100 ml (Pmx)) 100 ml @ 200 mls/hr Q12 IVPB ; Start at 21:00 JOSE MARIA URENA Oct 11, 2016 12:36
--- NOTE | 2016-10-11 12:50 | CONS ---
Date/Time of Note Date/Time of Note DATE: 10/11/16 TIME: 12:47 Assessment/Plan Assessment/Plan Chief Complaint/Hosp Course SUBJECTIVE: No events. The patient remains on Low dose Levophed gtt. No fevers , nad. INDWELLINGS: Trach, PEG, Cee, left chest triple lumen catheter. ANTIMICROBIALS: The patient is on: 1. Voriconazole. 2. Topical Bactroban to nares. 3. Zyvox. 4. Meropenem. 5. Flagyl. PHYSICAL EXAMINATION: GENERAL: This is a chronically ill-appearing, elderly man who is lying comfortably in bed. HEENT: Head atraumatic, normocephalic. Sclerae anicteric. Buccal mucosa dry. NECK: Supple. Tracheostomy present. CHEST: Rise symmetrical. Breath sounds diminished to bases. HEART: S1, S2. ABDOMEN: Soft, bowel tones present. EXTREMITIES: No cyanosis. Bilateral trace edema and multiple wounds. SKIN: With anasarca. ASSESSMENT: 1. Septic shock. 2. Resolving pneumonia. 3. Persistent UTI with E coli on admission and now repeat urine culture growing Teresita glabrata. 4. Status post Escherichia coli and bacteroides fragilis bacteremia on admission. 5. 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 6. History of severe pseudomembranous colitis. 7. Ileus. 8. Persistent diarrhea. PLAN: Overall improving, wbc and renal f-n is better, Levophed being titrated down. Continue present care, abx, wound care per surgical rec-s. Corey JOHN staff Problems: Consultation Date/Type/Reason Admit Date/Time Sep 24, 2016 at 03:19 Initial Consult Date 09/24/16 Type of Consultation: ID Referring Provider: ROULA DEL TORO Exam/Review of Systems Vital Signs Vitals Vital Signs Date Time Temp Pulse Resp B/P Pulse Ox O2 Delivery O2 Flow Rate FiO2 10/11/16 10:45 107 16 92/54 98 10/11/16 10:00 Mechanical Ventilator 10/11/16 08:00 98.6 10/11/16 07:40 30 Intake and Output 10/10/16 10/10/16 10/11/16 15:00 23:00 07:00 Intake Total 975.296 ml 1181.84 ml 840.61 ml Output Total 830 ml 300 ml 320 ml Balance 145.296 ml 881.84 ml 520.61 ml Results Result Diagram: 10/11/16 0440 10/11/16 0440 Results 24 hrs Laboratory Tests Test 10/10/16 18:40 10/10/16 20:42 10/11/16 04:40 10/11/16 05:37 Bedside Glucose 96 118 103 White Blood Count 9.9 # Red Blood Count 3.31 L Hemoglobin 8.2 L Hematocrit 27.4 L Mean Corpuscular Volume 82.8 Mean Corpuscular Hemoglobin 24.8 L Mean Corpuscular Hemoglobin Concent 29.9 L Red Cell Distribution Width 20.2 H Platelet Count 212 # Mean Platelet Volume 10.5 H Neutrophils % 76.7 Lymphocytes % 12.1 L Monocytes % 7.4 Eosinophils % 2.3 Basophils % 0.3 Nucleated Red Blood Cells % 0.0 Neutrophils # 7.6 H Lymphocytes # 1.2 Monocytes # 0.7 Eosinophils # 0.2 Basophils # 0.0 Nucleated Red Blood Cells # 0.0 Sodium Level 134 L Potassium Level 3.2 L Chloride Level 102 Carbon Dioxide Level 23 Anion Gap 12 # Blood Urea Nitrogen 33 H Creatinine 0.98 Glucose Level 92 Calcium Level 6.9 L Phosphorus Level 4.2 Magnesium Level 1.7 Medications Medications Current Medications Acetaminophen (Tylenol Supp) 650 mg Q4H PRN [place] PAIN LEVEL 1-3 OR FEVER; Start 09/24/16 at 03:00 Eye Lubricant (Artificial Tears Oph) 1 drop TID BOTH EYES Last administered on 10/11/16 09:59; Admin Dose 1 DROP; Start 09/24/16 at 09:00 Sodium Hypochlorite (Dakin'S (1/4 Strength)) 1 applic BID IRR Last administered on 10/11/16 09:59; Admin Dose 1 APPLIC; Start 09/24/16 at 21:00 Pantoprazole (Protonix Iv) 40 mg BID@06,18 IV Last administered on 10/11/16 05: 38; Admin Dose 40 MG; Start 09/24/16 at 18:00 Collagenase (Santyl) 1 applic DAILY TOP Last administered on 10/11/16 09:59; Admin Dose 1 APPLIC; Start 09/24/16 at 20:30 Miscellaneous Information 1 ea NOTE XX ; Start 09/24/16 at 21:00 Glucose (Glutose) 15 gm Q15M PRN PO DECREASED GLUCOSE; Start 09/24/16 at 21:00 Glucose (Glutose) 22.5 gm Q15M PRN PO DECREASED GLUCOSE; Start 09/24/16 at 21: 00 Dextrose (D50w Syringe) 25 ml Q15M PRN IV DECREASED GLUCOSE; Start 09/24/16 at 21:00 Dextrose (D50w Syringe) 50 ml Q15M PRN IV DECREASED GLUCOSE; Start 09/24/16 at 21:00 Glucagon (Glucagen) 1 mg Q15M PRN IM DECREASED GLUCOSE; Start 09/24/16 at 21:00 Glucose 15 gm 15 gm Q15M PRN BUCCAL DECREASED GLUCOSE; Start 09/24/16 at 21:00 Acetaminophen (Ofirmev 1000mg/ 100ml Iv) 100 ml @ 400 mls/hr Q6H PRN IVPB FEVER Last administered on 10/07/16 17:14; Admin Dose 400 MLS/HR; Start at 22:00 Vancomycin HCl (Vancomycin Oral Syringe) 250 mg Q6 PO Last administered on 17:15; Admin Dose 250 MG; Start 09/26/16 at 18:00; Status Future Hold Lactobacillus Acidoph/Bulgaricus (Floranex) 1 tab TID PO Last administered on 13:22; Admin Dose 1 TAB; Start 09/26/16 at 21:00; Status Future Hold Atorvastatin Calcium (Lipitor) 20 mg QHS GTB Last administered on 10/05/16 21: 42; Admin Dose 20 MG; Start 09/28/16 at 21:00; Status Future Hold Finasteride (Proscar) 5 mg DAILY GTB Last administered on 10/06/16 09:12; Admin Dose 5 MG; Start 09/29/16 at 09:00; Status Future Hold Multivitamins Therapeutic (Theragran) 1 tab DAILY GTB Last administered on 09:12; Admin Dose 1 TAB; Start 09/29/16 at 09:00; Status Future Hold Zinc Sulfate (Zinc Sulfate) 220 mg DAILY NGT Last administered on 10/06/16 09: 13; Admin Dose 220 MG; Start 09/29/16 at 09:00; Status Future Hold Insulin Aspart (Novolog Insulin Pen) NOVOLOG *MILD* ALGORI... Q6 SC ; Start at 18:00 Ondansetron HCl (Zofran Inj) 4 mg Q6H PRN IV NAUSEA AND/OR VOMITING Last administered on 10/05/16 17:42; Admin Dose 4 MG; Start 09/29/16 at 07:30 Heparin Sodium (Porcine) (Heparin (5000 Units/0.5 ml)) 5,000 unit BID SC Last administered on 10/11/16 09:58; Admin Dose 5,000 UNIT; Start 09/29/16 at 09:00 Acetaminophen 650 mg 650 mg Q6H PRN GTB PAIN AND OR ELEVATED TEMP Last administered on 10/10/16 20:23; Admin Dose 650 MG; Start 10/02/16 at 08:00 Metronidazole (Flagyl 500 Mg (Pmx)) 100 ml @ 100 mls/hr Q8 IVPB Last administered on 10/11/16 05:39; Admin Dose 100 MLS/HR; Start 10/02/16 at 14:00 Midodrine (Proamatine) 10 mg TID@09,13,17 PO Last administered on 10/06/16 17: 15; Admin Dose 10 MG; Start 10/06/16 at 01:00; Status Future Hold Mupirocin 1 applic 1 applic BID TOP Last administered on 10/11/16 09:59; Admin Dose 1 APPLIC; Start 10/06/16 at 21:00 Sodium Bicarbonate 100 meq/Dextrose 1,100 ml @ 80 mls/hr [id number] IV Last administered on 10/11/16 05:00; Admin Dose 80 MLS/HR; Start 10/06/16 at 11:00 Norepinephrine 16 mg/Dextrose 500 ml @ 1.87 mls/hr TITRATE IV Last administered on 10/09/16 14:43; Admin Dose 15 MLS/HR; Start 10/06/16 at 16:30 Linezolid (Zyvox 600mg/D5W (Pmx)) 300 ml @ 300 mls/hr Q12 IVPB Last administered on 10/11/16 09:58; Admin Dose 300 MLS/HR; Start 10/06/16 at 21:00 Levothyroxine Sodium (Synthroid Iv) 12.5 mcg DAILY@06 IV Last administered on 05:38; Admin Dose 12.5 MCG; Start 10/07/16 at 06:00 Metoclopramide HCl (Reglan) 5 mg Q8 IV Last administered on 10/11/16 05:42; Admin Dose 5 MG; Start 10/06/16 at 22:00 Voriconazole 200 mg 200 mg BID PO Last administered on 10/11/16 09:58; Admin Dose 200 MG; Start 10/08/16 at 21:00 Potassium Chloride 250 ml @ 62.5 mls/hr ONCE ONCE IVPB Last administered on 09:58; Admin Dose 62.5 MLS/HR; Start 10/11/16 at 09:00; Stop 10/11/16 at 12:59 Meropenem (Merrem 1 Gm/100 ml (Pmx)) 100 ml @ 200 mls/hr Q12 IVPB ; Start at 21:00 CHRISTOPHER MCDONOUGH NP Oct 11, 2016 12:50
--- NOTE | 2016-10-11 13:08 | CONS ---
Date/Time of Note Date/Time of Note DATE: 10/11/16 TIME: 13:07 Assessment/Plan Assessment/Plan Additional Assessment/Plan Severe septic shock Preserved ejection fraction Moderate aortic stenosis Respiratory failure Coronary artery disease Anemia, worsening Acute kidney injury -Titrate IV pressor to maintain SBP greater than 90 and/or map above 60, IV fluids as per nephrology colleague. Potassium and magnesium supplementation has already been ordered. Continue to hold any antihypertensives and nephrotoxic medications. Consultation Date/Type/Reason Admit Date/Time Sep 24, 2016 at 03:19 Initial Consult Date 09/24/16 Type of Consultation: cv Referring Provider: ROULA DEL TORO 24 HR Interval Summary Free Text/Dictation Patient seen and examined, no new cardiac issues as per nursing staff. Exam/Review of Systems Vital Signs Vitals Vital Signs Date Time Temp Pulse Resp B/P Pulse Ox O2 Delivery O2 Flow Rate FiO2 10/11/16 10:45 107 16 92/54 98 10/11/16 10:00 Mechanical Ventilator 10/11/16 08:00 98.6 10/11/16 07:40 30 Intake and Output 10/10/16 10/10/16 10/11/16 15:00 23:00 07:00 Intake Total 975.296 ml 1181.84 ml 840.61 ml Output Total 830 ml 300 ml 320 ml Balance 145.296 ml 881.84 ml 520.61 ml Exam Awake, no apparent distress, not following commands Head: normocephalic Neck: other (Tracheostomy) Respiratory: other (Coarse breath sounds bilaterally, no wheezing) Cardiovascular: other (S1-S2 heard), regular rate and rhythm Gastrointestinal: bowel sounds, distended, other (No guarding), soft Extremities: edema, other (No cyanosis) Results Result Diagram: 10/11/16 0440 10/11/16 0440 Results 24 hrs Laboratory Tests Test 10/10/16 18:40 10/10/16 20:42 10/11/16 04:40 10/11/16 05:37 Bedside Glucose 96 118 103 White Blood Count 9.9 # Red Blood Count 3.31 L Hemoglobin 8.2 L Hematocrit 27.4 L Mean Corpuscular Volume 82.8 Mean Corpuscular Hemoglobin 24.8 L Mean Corpuscular Hemoglobin Concent 29.9 L Red Cell Distribution Width 20.2 H Platelet Count 212 # Mean Platelet Volume 10.5 H Neutrophils % 76.7 Lymphocytes % 12.1 L Monocytes % 7.4 Eosinophils % 2.3 Basophils % 0.3 Nucleated Red Blood Cells % 0.0 Neutrophils # 7.6 H Lymphocytes # 1.2 Monocytes # 0.7 Eosinophils # 0.2 Basophils # 0.0 Nucleated Red Blood Cells # 0.0 Sodium Level 134 L Potassium Level 3.2 L Chloride Level 102 Carbon Dioxide Level 23 Anion Gap 12 # Blood Urea Nitrogen 33 H Creatinine 0.98 Glucose Level 92 Calcium Level 6.9 L Phosphorus Level 4.2 Magnesium Level 1.7 Medications Medications Current Medications Acetaminophen (Tylenol Supp) 650 mg Q4H PRN [place] PAIN LEVEL 1-3 OR FEVER; Start 09/24/16 at 03:00 Eye Lubricant (Artificial Tears Oph) 1 drop TID BOTH EYES Last administered on 10/11/16 09:59; Admin Dose 1 DROP; Start 09/24/16 at 09:00 Sodium Hypochlorite (Dakin'S (1/4 Strength)) 1 applic BID IRR Last administered on 10/11/16 09:59; Admin Dose 1 APPLIC; Start 09/24/16 at 21:00 Pantoprazole (Protonix Iv) 40 mg BID@06,18 IV Last administered on 10/11/16 05: 38; Admin Dose 40 MG; Start 09/24/16 at 18:00 Collagenase (Santyl) 1 applic DAILY TOP Last administered on 10/11/16 09:59; Admin Dose 1 APPLIC; Start 09/24/16 at 20:30 Miscellaneous Information 1 ea NOTE XX ; Start 09/24/16 at 21:00 Glucose (Glutose) 15 gm Q15M PRN PO DECREASED GLUCOSE; Start 09/24/16 at 21:00 Glucose (Glutose) 22.5 gm Q15M PRN PO DECREASED GLUCOSE; Start 09/24/16 at 21: 00 Dextrose (D50w Syringe) 25 ml Q15M PRN IV DECREASED GLUCOSE; Start 09/24/16 at 21:00 Dextrose (D50w Syringe) 50 ml Q15M PRN IV DECREASED GLUCOSE; Start 09/24/16 at 21:00 Glucagon (Glucagen) 1 mg Q15M PRN IM DECREASED GLUCOSE; Start 09/24/16 at 21:00 Glucose 15 gm 15 gm Q15M PRN BUCCAL DECREASED GLUCOSE; Start 09/24/16 at 21:00 Acetaminophen (Ofirmev 1000mg/ 100ml Iv) 100 ml @ 400 mls/hr Q6H PRN IVPB FEVER Last administered on 10/07/16 17:14; Admin Dose 400 MLS/HR; Start at 22:00 Vancomycin HCl (Vancomycin Oral Syringe) 250 mg Q6 PO Last administered on 17:15; Admin Dose 250 MG; Start 09/26/16 at 18:00; Status Future Hold Lactobacillus Acidoph/Bulgaricus (Floranex) 1 tab TID PO Last administered on 13:22; Admin Dose 1 TAB; Start 09/26/16 at 21:00; Status Future Hold Atorvastatin Calcium (Lipitor) 20 mg QHS GTB Last administered on 10/05/16 21: 42; Admin Dose 20 MG; Start 09/28/16 at 21:00; Status Future Hold Finasteride (Proscar) 5 mg DAILY GTB Last administered on 10/06/16 09:12; Admin Dose 5 MG; Start 09/29/16 at 09:00; Status Future Hold Multivitamins Therapeutic (Theragran) 1 tab DAILY GTB Last administered on 09:12; Admin Dose 1 TAB; Start 09/29/16 at 09:00; Status Future Hold Zinc Sulfate (Zinc Sulfate) 220 mg DAILY NGT Last administered on 10/06/16 09: 13; Admin Dose 220 MG; Start 09/29/16 at 09:00; Status Future Hold Insulin Aspart (Novolog Insulin Pen) NOVOLOG *MILD* ALGORI... Q6 SC ; Start at 18:00 Ondansetron HCl (Zofran Inj) 4 mg Q6H PRN IV NAUSEA AND/OR VOMITING Last administered on 10/05/16 17:42; Admin Dose 4 MG; Start 09/29/16 at 07:30 Heparin Sodium (Porcine) (Heparin (5000 Units/0.5 ml)) 5,000 unit BID SC Last administered on 10/11/16 09:58; Admin Dose 5,000 UNIT; Start 09/29/16 at 09:00 Acetaminophen 650 mg 650 mg Q6H PRN GTB PAIN AND OR ELEVATED TEMP Last administered on 10/10/16 20:23; Admin Dose 650 MG; Start 10/02/16 at 08:00 Metronidazole (Flagyl 500 Mg (Pmx)) 100 ml @ 100 mls/hr Q8 IVPB Last administered on 10/11/16 05:39; Admin Dose 100 MLS/HR; Start 10/02/16 at 14:00 Midodrine 10 mg 10 mg TID@,,17 PO Last administered on 10/06/16 17:15; Admin Dose 10 MG; Start 10/06/16 at 01:00; Status Future Hold Sodium Bicarbonate 100 meq/Dextrose 1,100 ml @ 80 mls/hr [id number] IV Last administered on 10/11/16 05:00; Admin Dose 80 MLS/HR; Start 10/06/16 at 11:00 Norepinephrine 16 mg/Dextrose 500 ml @ 1.87 mls/hr TITRATE IV Last administered on 10/09/16 14:43; Admin Dose 15 MLS/HR; Start 10/06/16 at 16:30 Linezolid (Zyvox 600mg/D5W (Pmx)) 300 ml @ 300 mls/hr Q12 IVPB Last administered on 10/11/16 09:58; Admin Dose 300 MLS/HR; Start 10/06/16 at 21:00 Levothyroxine Sodium (Synthroid Iv) 12.5 mcg DAILY@06 IV Last administered on 05:38; Admin Dose 12.5 MCG; Start 10/07/16 at 06:00 Metoclopramide HCl (Reglan) 5 mg Q8 IV Last administered on 10/11/16 05:42; Admin Dose 5 MG; Start 10/06/16 at 22:00 Voriconazole 200 mg 200 mg BID PO Last administered on 10/11/16 09:58; Admin Dose 200 MG; Start 10/08/16 at 21:00 Meropenem (Merrem 1 Gm/100 ml (Pmx)) 100 ml @ 200 mls/hr Q12 IVPB ; Start at 21:00 Ryder Wild DO Oct 11, 2016 13:08
--- NOTE | 2016-10-11 13:34 | CONS ---
Date/Time of Note Date/Time of Note DATE: 10/11/16 TIME: 13:28 Assessment/Plan Assessment/Plan Additional Assessment/Plan 1. Acute kidney injury on chronic kidney disease. due to ATN from septic shock 2. septic shock on levophed 3. severe metabolic acidosis on bicarbonate drip 5. History of chronic respiratory failure, status post tracheostomy, on ventilator. 6. History of G-tube. 7. Poor mental status due to the previous cerebrovascular accident. 8. History of dementia. 9. History of hypertension. PLAN: on levophed gtt, now BP more stable critically ill good urine output yesterday, Na improved, K low, replacement ordered stop Sodium bicarbonate drip, switch IVF to D51/2 NS at 75 cc/hr s/p palliative care meeting will follow up Consultation Date/Type/Reason Admit Date/Time Sep 24, 2016 at 03:19 Initial Consult Date 09/24/16 Type of Consultation: NEPHROLOGY Referring Provider: ROULA DEL TORO 24 HR Interval Summary Free Text/Dictation Cr normal, K 3.2, Na 133 Exam/Review of Systems Vital Signs Vitals Vital Signs Date Time Temp Pulse Resp B/P Pulse Ox O2 Delivery O2 Flow Rate FiO2 10/11/16 10:45 107 16 92/54 98 10/11/16 10:00 Mechanical Ventilator 10/11/16 08:00 98.6 10/11/16 07:40 30 Intake and Output 10/10/16 10/10/16 10/11/16 15:00 23:00 07:00 Intake Total 975.296 ml 1181.84 ml 840.61 ml Output Total 830 ml 300 ml 320 ml Balance 145.296 ml 881.84 ml 520.61 ml Exam GENERAL: This is a chronically ill-appearing, elderly man who is awake, noncommunicative, in no distress. HEENT: Head atraumatic, normocephalic. Sclerae anicteric. Buccal mucosa dry. NECK: Supple. Tracheostomy present. CHEST: Rise symmetrical. Breath sounds diminished to bases. HEART: S1, S2. ABDOMEN: Soft, bowel sounds present. EXTREMITIES: Without cyanosis. Trace edema. Results Result Diagram: 10/11/16 0440 10/11/16 0440 Results 24 hrs Laboratory Tests Test 10/10/16 18:40 10/10/16 20:42 10/11/16 04:40 10/11/16 05:37 Bedside Glucose 96 118 103 White Blood Count 9.9 # Red Blood Count 3.31 L Hemoglobin 8.2 L Hematocrit 27.4 L Mean Corpuscular Volume 82.8 Mean Corpuscular Hemoglobin 24.8 L Mean Corpuscular Hemoglobin Concent 29.9 L Red Cell Distribution Width 20.2 H Platelet Count 212 # Mean Platelet Volume 10.5 H Neutrophils % 76.7 Lymphocytes % 12.1 L Monocytes % 7.4 Eosinophils % 2.3 Basophils % 0.3 Nucleated Red Blood Cells % 0.0 Neutrophils # 7.6 H Lymphocytes # 1.2 Monocytes # 0.7 Eosinophils # 0.2 Basophils # 0.0 Nucleated Red Blood Cells # 0.0 Sodium Level 134 L Potassium Level 3.2 L Chloride Level 102 Carbon Dioxide Level 23 Anion Gap 12 # Blood Urea Nitrogen 33 H Creatinine 0.98 Glucose Level 92 Calcium Level 6.9 L Phosphorus Level 4.2 Magnesium Level 1.7 Test 10/11/16 13:21 Bedside Glucose 109 Medications Medications Current Medications Acetaminophen (Tylenol Supp) 650 mg Q4H PRN [place] PAIN LEVEL 1-3 OR FEVER; Start 09/24/16 at 03:00 Eye Lubricant (Artificial Tears Oph) 1 drop TID BOTH EYES Last administered on 10/11/16 09:59; Admin Dose 1 DROP; Start 09/24/16 at 09:00 Sodium Hypochlorite (Dakin'S (1/4 Strength)) 1 applic BID IRR Last administered on 10/11/16 09:59; Admin Dose 1 APPLIC; Start 09/24/16 at 21:00 Pantoprazole (Protonix Iv) 40 mg BID@06,18 IV Last administered on 10/11/16 05: 38; Admin Dose 40 MG; Start 09/24/16 at 18:00 Collagenase (Santyl) 1 applic DAILY TOP Last administered on 10/11/16 09:59; Admin Dose 1 APPLIC; Start 09/24/16 at 20:30 Miscellaneous Information 1 ea NOTE XX ; Start 09/24/16 at 21:00 Glucose (Glutose) 15 gm Q15M PRN PO DECREASED GLUCOSE; Start 09/24/16 at 21:00 Glucose (Glutose) 22.5 gm Q15M PRN PO DECREASED GLUCOSE; Start 09/24/16 at 21: 00 Dextrose (D50w Syringe) 25 ml Q15M PRN IV DECREASED GLUCOSE; Start 09/24/16 at 21:00 Dextrose (D50w Syringe) 50 ml Q15M PRN IV DECREASED GLUCOSE; Start 09/24/16 at 21:00 Glucagon (Glucagen) 1 mg Q15M PRN IM DECREASED GLUCOSE; Start 09/24/16 at 21:00 Glucose 15 gm 15 gm Q15M PRN BUCCAL DECREASED GLUCOSE; Start 09/24/16 at 21:00 Acetaminophen (Ofirmev 1000mg/ 100ml Iv) 100 ml @ 400 mls/hr Q6H PRN IVPB FEVER Last administered on 10/07/16 17:14; Admin Dose 400 MLS/HR; Start at 22:00 Vancomycin HCl (Vancomycin Oral Syringe) 250 mg Q6 PO Last administered on 17:15; Admin Dose 250 MG; Start 09/26/16 at 18:00; Status Future Hold Lactobacillus Acidoph/Bulgaricus (Floranex) 1 tab TID PO Last administered on 13:22; Admin Dose 1 TAB; Start 09/26/16 at 21:00; Status Future Hold Atorvastatin Calcium (Lipitor) 20 mg QHS GTB Last administered on 10/05/16 21: 42; Admin Dose 20 MG; Start 09/28/16 at 21:00; Status Future Hold Finasteride (Proscar) 5 mg DAILY GTB Last administered on 10/06/16 09:12; Admin Dose 5 MG; Start 09/29/16 at 09:00; Status Future Hold Multivitamins Therapeutic (Theragran) 1 tab DAILY GTB Last administered on 09:12; Admin Dose 1 TAB; Start 09/29/16 at 09:00; Status Future Hold Zinc Sulfate (Zinc Sulfate) 220 mg DAILY NGT Last administered on 10/06/16 09: 13; Admin Dose 220 MG; Start 09/29/16 at 09:00; Status Future Hold Insulin Aspart (Novolog Insulin Pen) NOVOLOG *MILD* ALGORI... Q6 SC ; Start at 18:00 Ondansetron HCl (Zofran Inj) 4 mg Q6H PRN IV NAUSEA AND/OR VOMITING Last administered on 10/05/16 17:42; Admin Dose 4 MG; Start 09/29/16 at 07:30 Heparin Sodium (Porcine) (Heparin (5000 Units/0.5 ml)) 5,000 unit BID SC Last administered on 10/11/16 09:58; Admin Dose 5,000 UNIT; Start 09/29/16 at 09:00 Acetaminophen 650 mg 650 mg Q6H PRN GTB PAIN AND OR ELEVATED TEMP Last administered on 10/10/16 20:23; Admin Dose 650 MG; Start 10/02/16 at 08:00 Metronidazole (Flagyl 500 Mg (Pmx)) 100 ml @ 100 mls/hr Q8 IVPB Last administered on 10/11/16 05:39; Admin Dose 100 MLS/HR; Start 10/02/16 at 14:00 Midodrine 10 mg 10 mg TID@,,17 PO Last administered on 10/06/16 17:15; Admin Dose 10 MG; Start 10/06/16 at 01:00; Status Future Hold Sodium Bicarbonate 100 meq/Dextrose 1,100 ml @ 80 mls/hr [id number] IV Last administered on 10/11/16 05:00; Admin Dose 80 MLS/HR; Start 10/06/16 at 11:00 Norepinephrine 16 mg/Dextrose 500 ml @ 1.87 mls/hr TITRATE IV Last administered on 10/09/16 14:43; Admin Dose 15 MLS/HR; Start 10/06/16 at 16:30 Linezolid (Zyvox 600mg/D5W (Pmx)) 300 ml @ 300 mls/hr Q12 IVPB Last administered on 10/11/16 09:58; Admin Dose 300 MLS/HR; Start 10/06/16 at 21:00 Levothyroxine Sodium (Synthroid Iv) 12.5 mcg DAILY@06 IV Last administered on 05:38; Admin Dose 12.5 MCG; Start 10/07/16 at 06:00 Metoclopramide HCl (Reglan) 5 mg Q8 IV Last administered on 10/11/16 05:42; Admin Dose 5 MG; Start 10/06/16 at 22:00 Voriconazole 200 mg 200 mg BID PO Last administered on 10/11/16 09:58; Admin Dose 200 MG; Start 10/08/16 at 21:00 Meropenem (Merrem 1 Gm/100 ml (Pmx)) 100 ml @ 200 mls/hr Q12 IVPB ; Start at 21:00 MAGGIE DINERO MD Oct 11, 2016 13:34
--- NOTE | 2016-10-11 14:37 | PN ---
Date/Time of Note Date/Time of Note DATE: 10/10/16 TIME: 23:36 Assessment/Plan Lines/Catheters IV Catheter Type (from [facility]): Central Line Cee in Place (from [facility]): Yes Assessment/Plan Chief Complaint/Hosp Course 1. Shock, septic (uti, pna, wound). Improving. -Judicious fluid management -Supportive measures -Antibiotics 2. Multiple decubitus ulcerations with necrotic tissue and deep tissue injury -Offload -Local care -Vitamin C -Eventual nutritional optimization -Debridement when medically cleared 3. Contracted state with functional quadriplegia -Offloading -Nutritional optimization when possible 4. Anemia -Monitor 5. Ventilator dependent respiratory failure -Ventilator management and pulmonary toilet 6. Renal insufficiency -Judicious fluid management -Avoid nephrotoxic agents 7. Coronary artery disease and history of non-ST elevation [place] -Cardiac optimization 8. Vomiting 2nd Ileus -bowel regimen per GI Thank you Late entry 10/10 Problems: Subjective 24 Hr Interval Summary Leukocytosis improving. Fevers. No chills. No cough. No seizure. No rash. No blood rectum. No bloating. No seizures. No pyuria. Exam/Review of Systems Vital Signs Vitals Vital Signs Date Time Temp Pulse Resp B/P Pulse Ox O2 Delivery O2 Flow Rate FiO2 10/11/16 14:15 111 21 103/60 96 10/11/16 14:00 Mechanical Ventilator 10/11/16 12:00 98.5 10/11/16 07:40 30 Intake and Output 10/10/16 10/10/16 10/11/16 14:59 22:59 06:59 Intake Total 964.676 ml 1274.65 ml 833.42 ml Output Total 760 ml 370 ml 275 ml Balance 204.676 ml 904.65 ml 558.42 ml Exam Free Text/Dictation Constitutional: No alert, No oriented Psych: No nl mood/affect Head: atraumatic, normocephalic Eyes: nl conjunctiva, No EOMI, No icteric ENMT: mucosa pink and moist, nl external ears & nose Neck: jvd, other (Trach in place), No non-tender, No supple Respiratory: No congested cough, No labored breathing Cardiovascular: No regular rate and rhythm Gastrointestinal: non-tender, other (PEG in place), soft, No rebound or guarding Musculoskeletal: No joint tenderness, No nl extremities to inspection, No nl gait and stance Extremities: No calf tenderness, No cyanosis Neurological: No nl mental status, No nl speech, No nl strength Skin: rash or lesions (Multiple decubitus ulcerations with debris, necrotic tissue, deep tissue injury), No diaphoresis, No nl turgor Lymph: nontender Results Result Diagram: 10/11/16 0440 10/11/16 0440 EVA GUARDADO MD Oct 11, 2016 14:37
--- NOTE | 2016-10-11 14:38 | PN ---
Date/Time of Note Date/Time of Note DATE: 10/11/16 TIME: 14:37 Assessment/Plan Lines/Catheters IV Catheter Type (from [facility]): Central Line Cee in Place (from [facility]): Yes Assessment/Plan Chief Complaint/Hosp Course 1. Shock, septic (uti, pna, wound). Improving. -Judicious fluid management -Supportive measures -Antibiotics 2. Multiple decubitus ulcerations with necrotic tissue and deep tissue injury -Offload -Local care -Vitamin C -Eventual nutritional optimization -Debridement when medically cleared 3. Contracted state with functional quadriplegia -Offloading -Nutritional optimization when possible 4. Anemia -Monitor 5. Ventilator dependent respiratory failure -Ventilator management and pulmonary toilet 6. Renal insufficiency -Judicious fluid management -Avoid nephrotoxic agents 7. Coronary artery disease and history of non-ST elevation [place] -Cardiac optimization 8. Vomiting 2nd Ileus -bowel regimen per GI Thank you Late entry 10/10 Problems: Subjective 24 Hr Interval Summary Leukocytosis resolved. Fevers. No chills. No cough. No seizure. No rash. No blood rectum. No bloating. No seizures. No pyuria. Exam/Review of Systems Vital Signs Vitals Vital Signs Date Time Temp Pulse Resp B/P Pulse Ox O2 Delivery O2 Flow Rate FiO2 10/11/16 14:15 111 21 103/60 96 10/11/16 14:00 Mechanical Ventilator 10/11/16 12:00 98.5 10/11/16 07:40 30 Intake and Output 10/10/16 10/10/16 10/11/16 14:59 22:59 06:59 Intake Total 964.676 ml 1274.65 ml 833.42 ml Output Total 760 ml 370 ml 275 ml Balance 204.676 ml 904.65 ml 558.42 ml Exam Free Text/Dictation Constitutional: No alert, No oriented Psych: No nl mood/affect Head: atraumatic, normocephalic Eyes: nl conjunctiva, No EOMI, No icteric ENMT: mucosa pink and moist, nl external ears & nose Neck: jvd, other (Trach in place), No non-tender, No supple Respiratory: No congested cough, No labored breathing Cardiovascular: No regular rate and rhythm Gastrointestinal: non-tender, other (PEG in place), soft, No rebound or guarding Musculoskeletal: No joint tenderness, No nl extremities to inspection, No nl gait and stance Extremities: No calf tenderness, No cyanosis Neurological: No nl mental status, No nl speech, No nl strength Skin: rash or lesions (Multiple decubitus ulcerations with debris, necrotic tissue, deep tissue injury), No diaphoresis, No nl turgor Lymph: nontender Results Result Diagram: 10/11/16 0440 10/11/16 0440 EVA GUARDADO MD Oct 11, 2016 14:38
[2016-10-11] MEDS: DEXTROSE 5%-0.45% NACL 1,000 ML IV SCH (14:40)
[2016-10-11] MEDS: MEROPENEM 1 GM/100 ML (PMX) 100 ML IVPB SCH (21:40)
--- NOTE | 2016-10-11 23:42 | CONS ---
Date/Time of Note Date/Time of Note DATE: 10/11/16 TIME: 23:41 Assessment/Plan Assessment/Plan Chief Complaint/Hosp Course ANEMIA - NEAR- MICROCYTIC WITH INCREASED RDW DROP H/H DURING HOSPITALIZATION + ACD TRANSFUSE PRBC TO KEEP HB MORE THAN 8 TRANSFUSE NEEDED GI F-UP Stool OB, negative Monitor H&H every 8 hours, transfuse 2 units for hemoglobin less than 8 Continue PPI drips EGD PER Suchov LEUKOCYTOSIS- REACTIVE CONT ATB FOR SEPSIS THROMBOCYTOSIS REACTIVE SHOULD IMPROVE WITH RESOLUTION OF SEPSIS Severe sepsis with septic shock 2/2 Decub ulcers and/or UTI and/or PNA: stable, off pressor support Severe hypernatremic dehydration Acute renal failure 2/2 ATN from dehydration UTI Multifocal pneumonia Encephalopathy ?acute versus acute on chronic (baseline unknown) Hypokalemia Problems: Consultation Date/Type/Reason Admit Date/Time Sep 24, 2016 at 03:19 Initial Consult Date 09/24/16 Type of Consultation: HEMEON Referring Provider: ROULA DEL TORO 24 HR Interval Summary Free Text/Dictation Leukocytosis resolved. Fevers. No chills. No cough. No seizure. No rash. No blood rectum. No bloating. No seizures. No pyuria. Exam/Review of Systems Vital Signs Vitals Vital Signs Date Time Temp Pulse Resp B/P Pulse Ox O2 Delivery O2 Flow Rate FiO2 10/11/16 21:00 109 17 104/62 99 Mechanical Ventilator Trach Collar 10/11/16 20:00 98.6 10/11/16 19:55 30 Intake and Output 10/10/16 10/10/16 10/11/16 15:00 23:00 07:00 Intake Total 975.296 ml 1181.84 ml 840.61 ml Output Total 830 ml 300 ml 370 ml Balance 145.296 ml 881.84 ml 470.61 ml Exam Exam Free Text/Dictation Constitutional: No alert, No oriented Psych: No nl mood/affect Head: atraumatic, normocephalic Eyes: nl conjunctiva, No EOMI, No icteric ENMT: mucosa pink and moist, nl external ears & nose Neck: jvd, other (Trach in place), No non-tender, No supple Respiratory: No congested cough, No labored breathing Cardiovascular: No regular rate and rhythm Gastrointestinal: non-tender, other (PEG in place), soft, No rebound or guarding Musculoskeletal: No joint tenderness, No nl extremities to inspection, No nl gait and stance Extremities: No calf tenderness, No cyanosis Neurological: No nl mental status, No nl speech, No nl strength Skin: rash or lesions (Multiple decubitus ulcerations with debris, necrotic tissue, deep tissue injury), No diaphoresis, No nl turgor Lymph: nontender Results Result Diagram: 10/11/1643910/11/16439 Results 24 hrs Laboratory Tests Test 10/11/16 04:40 10/11/16 05:37 10/11/16 13:21 10/11/16 18:29 White Blood Count 9.9 # Red Blood Count 3.31 L Hemoglobin 8.2 L Hematocrit 27.4 L Mean Corpuscular Volume 82.8 Mean Corpuscular Hemoglobin 24.8 L Mean Corpuscular Hemoglobin Concent 29.9 L Red Cell Distribution Width 20.2 H Platelet Count 212 # Mean Platelet Volume 10.5 H Neutrophils % 76.7 Lymphocytes % 12.1 L Monocytes % 7.4 Eosinophils % 2.3 Basophils % 0.3 Nucleated Red Blood Cells % 0.0 Neutrophils # 7.6 H Lymphocytes # 1.2 Monocytes # 0.7 Eosinophils # 0.2 Basophils # 0.0 Nucleated Red Blood Cells # 0.0 Sodium Level 134 L Potassium Level 3.2 L Chloride Level 102 Carbon Dioxide Level 23 Anion Gap 12 # Blood Urea Nitrogen 33 H Creatinine 0.98 Glucose Level 92 Calcium Level 6.9 L Phosphorus Level 4.2 Magnesium Level 1.7 Bedside Glucose 103 109 109 Medications Medications Current Medications Acetaminophen (Tylenol Supp) 650 mg Q4H PRN OR PAIN LEVEL 1-3 OR FEVER; Start 09/24/16 at 03:00 Eye Lubricant (Artificial Tears Oph) 1 drop TID BOTH EYES Last administered on 10/11/16 21:39; Admin Dose 1 DROP; Start 09/24/16 at 09:00 Sodium Hypochlorite (Dakin'S (1/4 Strength)) 1 applic BID IRR Last administered on 10/11/16 21:53; Admin Dose 1 APPLIC; Start 09/24/16 at 21:00 Pantoprazole (Protonix Iv) 40 mg BID@06,18 IV Last administered on 10/11/16 18: 30; Admin Dose 40 MG; Start 09/24/16 at 18:00 Collagenase (Santyl) 1 applic DAILY TOP Last administered on 10/11/16 09:59; Admin Dose 1 APPLIC; Start 09/24/16 at 20:30 Miscellaneous Information 1 ea NOTE XX ; Start 09/24/16 at 21:00 Glucose (Glutose) 15 gm Q15M PRN PO DECREASED GLUCOSE; Start 09/24/16 at 21:00 Glucose (Glutose) 22.5 gm Q15M PRN PO DECREASED GLUCOSE; Start 09/24/16 at 21: 00 Dextrose (D50w Syringe) 25 ml Q15M PRN IV DECREASED GLUCOSE; Start 09/24/16 at 21:00 Dextrose (D50w Syringe) 50 ml Q15M PRN IV DECREASED GLUCOSE; Start 09/24/16 at 21:00 Glucagon (Glucagen) 1 mg Q15M PRN IM DECREASED GLUCOSE; Start 09/24/16 at 21:00 Glucose 15 gm 15 gm Q15M PRN BUCCAL DECREASED GLUCOSE; Start 09/24/16 at 21:00 Acetaminophen (Ofirmev 1000mg/ 100ml Iv) 100 ml @ 400 mls/hr Q6H PRN IVPB FEVER Last administered on 10/07/16 17:14; Admin Dose 400 MLS/HR; Start at 22:00 Vancomycin HCl (Vancomycin Oral Syringe) 250 mg Q6 PO Last administered on 17:15; Admin Dose 250 MG; Start 09/26/16 at 18:00; Status Future Hold Lactobacillus Acidoph/Bulgaricus (Floranex) 1 tab TID PO Last administered on 13:22; Admin Dose 1 TAB; Start 09/26/16 at 21:00; Status Future Hold Atorvastatin Calcium (Lipitor) 20 mg QHS GTB Last administered on 10/05/16 21: 42; Admin Dose 20 MG; Start 09/28/16 at 21:00; Status Future Hold Finasteride (Proscar) 5 mg DAILY GTB Last administered on 10/06/16 09:12; Admin Dose 5 MG; Start 09/29/16 at 09:00; Status Future Hold Multivitamins Therapeutic (Theragran) 1 tab DAILY GTB Last administered on 09:12; Admin Dose 1 TAB; Start 09/29/16 at 09:00; Status Future Hold Zinc Sulfate (Zinc Sulfate) 220 mg DAILY NGT Last administered on 10/06/16 09: 13; Admin Dose 220 MG; Start 09/29/16 at 09:00; Status Future Hold Insulin Aspart (Novolog Insulin Pen) NOVOLOG *MILD* ALGORI... Q6 SC ; Start at 18:00 Ondansetron HCl (Zofran Inj) 4 mg Q6H PRN IV NAUSEA AND/OR VOMITING Last administered on 10/05/16 17:42; Admin Dose 4 MG; Start 09/29/16 at 07:30 Heparin Sodium (Porcine) (Heparin (5000 Units/0.5 ml)) 5,000 unit BID SC Last administered on 10/11/16 21:41; Admin Dose 5,000 UNIT; Start 09/29/16 at 09:00 Acetaminophen 650 mg 650 mg Q6H PRN GTB PAIN AND OR ELEVATED TEMP Last administered on 10/10/16 20:23; Admin Dose 650 MG; Start 10/02/16 at 08:00 Metronidazole (Flagyl 500 Mg (Pmx)) 100 ml @ 100 mls/hr Q8 IVPB Last administered on 10/11/16 21:39; Admin Dose 100 MLS/HR; Start 10/02/16 at 14:00 Midodrine 10 mg 10 mg TID@,,17 PO Last administered on 10/06/16 17:15; Admin Dose 10 MG; Start 10/06/16 at 01:00; Status Future Hold Norepinephrine 16 mg/Dextrose 500 ml @ 1.87 mls/hr TITRATE IV Last administered on 10/09/16 14:43; Admin Dose 15 MLS/HR; Start 10/06/16 at 16:30 Linezolid (Zyvox 600mg/D5W (Pmx)) 300 ml @ 300 mls/hr Q12 IVPB Last administered on 10/11/16 21:39; Admin Dose 300 MLS/HR; Start 10/06/16 at 21:00 Levothyroxine Sodium (Synthroid Iv) 12.5 mcg DAILY@06 IV Last administered on 05:38; Admin Dose 12.5 MCG; Start 10/07/16 at 06:00 Metoclopramide HCl (Reglan) 5 mg Q8 IV Last administered on 10/11/16 21:39; Admin Dose 5 MG; Start 10/06/16 at 22:00 Voriconazole 200 mg 200 mg BID PO Last administered on 10/11/16 21:39; Admin Dose 200 MG; Start 10/08/16 at 21:00 Meropenem 100 ml @ 200 mls/hr Q12 IVPB Last administered on 10/11/16 21:40; Admin Dose 200 MLS/HR; Start 10/11/16 at 21:00 Dextrose/Sodium Chloride (D5-1/2ns) 1,000 ml @ 75 mls/hr [id number] IV Last administered on 10/11/16 14:40; Admin Dose 75 MLS/HR; Start 10/11/16 at 14:00 SCOTT RODRIGUES MD Oct 11, 2016 23:42
[2016-10-12] VITALS (44 sets, daily range): BP systolic 90–119; BP diastolic 57–75; PULSE 107–124; RESP 9–31
[2016-10-12] MEDS: ALBUTEROL HFA 8 GM INHALER INH SCH ×4 (02:00→19:50)
[2016-10-12] MEDS: IPRATROPIUM (HFA) 12.9 GM INHALER INH SCH ×4 (02:00→19:50)
[2016-10-12 04:49] LABS: ADD SCAN DIFF NO
--- NOTE | 2016-10-12 05:01 | PN ---
DATE: 10/11/2016 SUBJECTIVE: Penoscrotal edema. The patient is on a respirator and he does not express any complain ts. OBJECTIVE: VITAL SIGNS: His temperature is 98.5. The blood pressure 107/80, pulse is 123, respirations 23. GENITOURINARY: The Cee catheter is draining clear urine. The penoscrotal edema has decreased a l ittle bit, but still significant. EXTREMITIES: The patient is very contracted and his legs cannot be . His knees are touchin g each other and with the swelling of the penis and the scrotum, the penis is being squeezed between his legs. LABORATORY DATA: His urine culture grew Teresita glabrata. The CBC shows a white count of 9.9, hemo globin 8.2, hematocrit 27.4. BUN is 33, creatinine 0.98. The patient is on voriconazole for the ur ine culture result. RECOMMENDATION: To put a pillow between the knees to keep them part to help prevent sores on his kn ees and also on his penis and keep his legs from being too contracted and closing up completely. Dictated By: MISHEL WOODWARD/ELIZABETH Conf#: [id number] DID#: [id number]
[2016-10-12] MEDS: metroNIDAZOLE 500 MG/NS (PMX) 100 ML IVPB SCH ×3 (05:12→23:08)
[2016-10-12] MEDS: METOCLOPRAMIDE 10 MG INJ IV SCH ×3 (05:13→21:54)
[2016-10-12] MEDS: LEVOTHYROXINE 100 MCG VIAL IV SCH (05:13)
[2016-10-12] MEDS: DEXTROSE 5%-0.45% NACL 1,000 ML IV SCH ×2 (05:13→16:40)
[2016-10-12] MEDS: PANTOPRAZOLE 40 MG INJ IV SCH ×2 (05:13→18:15)
[2016-10-12 05:16] LABS: BASOPHILS % 0.1 % (0.0-2.0); EOSINOPHILS # 0.2 10^3/ul (0.0-0.5); EOSINOPHILS % 2.4 % (0.0-7.0); HEMATOCRIT 28.4 % (42.0-52.0); HEMOGLOBIN 8.4 g/dl (14.0-18.0); LYMPHOCYTES # 1.2 10^3/ul (0.8-2.9); LYMPHOCYTES % 14.1 % (15.0-51.0); MEAN CORPUSCULAR HEMOGLOBIN 24.9 pg (29.0-33.0); MEAN CORPUSCULAR HGB CONC 29.6 g/dl (32.0-37.0); MEAN PLATELET VOLUME 10.6 fl (7.4-10.4); MONOCYTE # 0.7 10^3/ul (0.3-0.9); MONOCYTES % 8.6 % (0.0-11.0); NEUTROPHIL # 6.1 10^3/ul (1.6-7.5); PLATELET COUNT 194 10^3/UL (140-415); RED BLOOD COUNT 3.38 10^6/ul (4.70-6.10); RED CELL DISTRIBUTION WIDTH 20.1 % (11.5-14.5); WHITE BLOOD COUNT 8.3 10^3/ul (4.8-10.8)
[2016-10-12 05:27] LABS: POTASSIUM 3.3 mmol/L (3.5-5.1)
[2016-10-12 05:30] LABS: CREATININE 0.73 mg/dl (0.61-1.24)
[2016-10-12 05:31] LABS: CALCIUM 6.9 mg/dl (8.4-10.2)
[2016-10-12] MEDS: INSULIN ASPART [NOVOLOG] 3 ML PEN SC SCH ×2 (06:00)
[2016-10-12] MEDS: LINEZOLID 600 MG/D5W (PMX) 300 ML IVPB SCH ×2 (08:41→20:46)
[2016-10-12] MEDS: VORICONAZOLE 200 MG TAB PO SCH ×2 (08:41→20:46)
[2016-10-12] MEDS: ARTIFICIAL TEARS 15 ML OPH BOTH EYES SCH ×3 (08:42→20:45)
[2016-10-12] MEDS: SODIUM HYPOCHLORITE 0.125% 473 ML BTL IRR SCH ×2 (08:42→21:54)
[2016-10-12] MEDS: COLLAGENASE 30 GM TUBE TOP SCH (08:42)
--- NOTE | 2016-10-12 08:44 | PN ---
Date/Time of Note Date/Time of Note DATE: 10/12/16 TIME: 08:43 Assessment/Plan VTE Prophylaxis VTE Prophylaxis Intervention: heparin Lines/Catheters IV Catheter Type (from Nrs): Central Line Central line still needed: Yes Urinary Cath still in place: Yes Reason Cath still needed: skin wounds contaminated by urine Assessment/Plan Chief Complaint/Hosp Course 1. Sepsis with underlying septic shock secondary to infected sacral decubitus wound. The wound culture has been positive for Klebsiella pneumoniae, Acinetobacter baumannii, vancomycin-resistant Enterococcus and Staph aureus. Continue antimicrobials as per infectious diseases. S/P IV pressors. 2. Infected sacral decubitus ulcer. Continue pain management. Continue local dressing changes as per wound care consultants. 3. Chronic respiratory failure. Status post tracheostomy and vent dependent. Continue inhaled bronchodilators. Pulmonary following the patient. 4. Acute renal failure. Most probably secondary to hemodynamics versus from acute tubular necrosis. Continue to use nephrotoxic medications with caution. 5. 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 Continue antimicrobials as per ID. 6. 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 Continue supportive care. 7. Hypothyroidism. Continue Synthroid. 8. Dysphagia secondary to encephalopathy. Continue aspiration precautions. Continue G tube feedings. 9. Normocytic anemia. Continue to monitor the H and H closely. Transfuse as needed. 10. Leukocytosis with thrombocytosis. The patient being followed by Hematology. Continue to monitor. 11. Ileus. Resolved. Continue Reglan. Being followed by gastroenterology and Surgery. 12. Moderate . Continue monitoring. 13. DVT prophylaxis. Subcutaneous heparin. 14. Gastrointestinal prophylaxis. Proton pump inhibitors. 15 Fluid, electrolytes and nutrition. Continue G tube feedings. 16. Gastrointestinal prophylaxis. Proton pump inhibitors. PLAN: 1. Continue ICU monitoring. 2. Replete potassium and magnesium. 3. Poor prognosis. Palliative care on the case. Case discussed with Dr. Chang. CRITICAL CARE TIME: 35 minutes. Problems: Subjective 24 Hr Interval Summary Free Text/Dictation No changes in status. Off pressors since last night. Exam/Review of Systems Vital Signs Vitals Vital Signs Date Time Temp Pulse Resp B/P Pulse Ox O2 Delivery O2 Flow Rate FiO2 10/12/16 08:00 99.3 111 9 95/63 97 Mechanical Ventilator 10/12/16 05:27 30 Intake and Output 10/11/16 10/11/16 10/12/16 15:00 23:00 07:00 Intake Total 1426.24 ml 1445 ml 1080 ml Output Total 405 ml 370 ml 440 ml Balance 1021.24 ml 1075 ml 640 ml Exam GENERAL: This is an elderly, frail-looking male lying in bed in no apparent distress. HEENT: Head normocephalic and atraumatic. Eyes: Anicteric sclerae. Conjunctivae clear. ENT: Nasal septum is midline. Oral mucosa is dry. NECK: Supple. Tracheostomy midline. RESPIRATORY: A tracheostomy connected to mechanical ventilator. On AC mode ventilation. CARDIAC: Regular rate and rhythm with a grade III/ systolic ejection murmur. ABDOMEN: Soft, nontender and nondistended. G-tube in place. GENITOURINARY: Cee catheter in place. EXTREMITIES: No cyanosis, no clubbing. Peripheral pulses. Bilateral upper extremity edema. Bilateral foot edema. Contracted bilateral upper and bilateral lower extremities. NEUROLOGIC: The patient is obtunded. Results Result Diagram: 10/12/16 0415 10/12/16 0415 Results 24 hrs Laboratory Tests Test 10/11/16 13:21 10/11/16 18:29 10/12/16 00:51 10/12/16 04:15 Bedside Glucose 109 109 121 White Blood Count 8.3 Red Blood Count 3.38 L Hemoglobin 8.4 L Hematocrit 28.4 L Mean Corpuscular Volume 84.0 Mean Corpuscular Hemoglobin 24.9 L Mean Corpuscular Hemoglobin Concent 29.6 L Red Cell Distribution Width 20.1 H Platelet Count 194 Mean Platelet Volume 10.6 H Neutrophils % 74.0 Lymphocytes % 14.1 L Monocytes % 8.6 Eosinophils % 2.4 Basophils % 0.1 Nucleated Red Blood Cells % 0.0 Neutrophils # 6.1 Lymphocytes # 1.2 Monocytes # 0.7 Eosinophils # 0.2 Basophils # 0.0 Nucleated Red Blood Cells # 0.0 Sodium Level 134 L Potassium Level 3.3 L Chloride Level 100 Carbon Dioxide Level 22 Anion Gap 15 Blood Urea Nitrogen 28 H Creatinine 0.73 Glucose Level 94 Calcium Level 6.9 L Magnesium Level 1.7 Test 10/12/16 06:12 Bedside Glucose 98 Medications Medications Current Medications Acetaminophen (Tylenol Supp) 650 mg Q4H PRN IN PAIN LEVEL 1-3 OR FEVER; Start 09/24/16 at 03:00 Eye Lubricant (Artificial Tears Oph) 1 drop TID BOTH EYES Last administered on 10/11/16 21:39; Admin Dose 1 DROP; Start 09/24/16 at 09:00 Sodium Hypochlorite (Dakin'S (1/4 Strength)) 1 applic BID IRR Last administered on 10/11/16 21:53; Admin Dose 1 APPLIC; Start 09/24/16 at 21:00 Pantoprazole (Protonix Iv) 40 mg BID@06,18 IV Last administered on 10/12/16 05: 13; Admin Dose 40 MG; Start 09/24/16 at 18:00 Collagenase (Santyl) 1 applic DAILY TOP Last administered on 10/11/16 09:59; Admin Dose 1 APPLIC; Start 09/24/16 at 20:30 Miscellaneous Information 1 ea NOTE XX ; Start 09/24/16 at 21:00 Glucose (Glutose) 15 gm Q15M PRN PO DECREASED GLUCOSE; Start 09/24/16 at 21:00 Glucose (Glutose) 22.5 gm Q15M PRN PO DECREASED GLUCOSE; Start 09/24/16 at 21: 00 Dextrose (D50w Syringe) 25 ml Q15M PRN IV DECREASED GLUCOSE; Start 09/24/16 at 21:00 Dextrose (D50w Syringe) 50 ml Q15M PRN IV DECREASED GLUCOSE; Start 09/24/16 at 21:00 Glucagon (Glucagen) 1 mg Q15M PRN IM DECREASED GLUCOSE; Start 09/24/16 at 21:00 Glucose 15 gm 15 gm Q15M PRN BUCCAL DECREASED GLUCOSE; Start 09/24/16 at 21:00 Acetaminophen (Ofirmev 1000mg/ 100ml Iv) 100 ml @ 400 mls/hr Q6H PRN IVPB FEVER Last administered on 10/07/16 17:14; Admin Dose 400 MLS/HR; Start at 22:00 Vancomycin HCl (Vancomycin Oral Syringe) 250 mg Q6 PO Last administered on 17:15; Admin Dose 250 MG; Start 09/26/16 at 18:00; Status Future Hold Lactobacillus Acidoph/Bulgaricus (Floranex) 1 tab TID PO Last administered on 13:22; Admin Dose 1 TAB; Start 09/26/16 at 21:00; Status Future Hold Atorvastatin Calcium (Lipitor) 20 mg QHS GTB Last administered on 10/05/16 21: 42; Admin Dose 20 MG; Start 09/28/16 at 21:00; Status Future Hold Finasteride (Proscar) 5 mg DAILY GTB Last administered on 10/06/16 09:12; Admin Dose 5 MG; Start 09/29/16 at 09:00; Status Future Hold Multivitamins Therapeutic (Theragran) 1 tab DAILY GTB Last administered on 09:12; Admin Dose 1 TAB; Start 09/29/16 at 09:00; Status Future Hold Zinc Sulfate (Zinc Sulfate) 220 mg DAILY NGT Last administered on 10/06/16 09: 13; Admin Dose 220 MG; Start 09/29/16 at 09:00; Status Future Hold Insulin Aspart (Novolog Insulin Pen) NOVOLOG *MILD* ALGORI... Q6 SC ; Start at 18:00 Ondansetron HCl (Zofran Inj) 4 mg Q6H PRN IV NAUSEA AND/OR VOMITING Last administered on 10/05/16 17:42; Admin Dose 4 MG; Start 09/29/16 at 07:30 Heparin Sodium (Porcine) (Heparin (5000 Units/0.5 ml)) 5,000 unit BID SC Last administered on 10/11/16 21:41; Admin Dose 5,000 UNIT; Start 09/29/16 at 09:00 Acetaminophen 650 mg 650 mg Q6H PRN GTB PAIN AND OR ELEVATED TEMP Last administered on 10/10/16 20:23; Admin Dose 650 MG; Start 10/02/16 at 08:00 Metronidazole (Flagyl 500 Mg (Pmx)) 100 ml @ 100 mls/hr Q8 IVPB Last administered on 10/12/16 05:12; Admin Dose 100 MLS/HR; Start 10/02/16 at 14:00 Midodrine 10 mg 10 mg TID@,,17 PO Last administered on 10/06/16 17:15; Admin Dose 10 MG; Start 10/06/16 at 01:00; Status Future Hold Norepinephrine 16 mg/Dextrose 500 ml @ 1.87 mls/hr TITRATE IV Last administered on 10/09/16 14:43; Admin Dose 15 MLS/HR; Start 10/06/16 at 16:30 Linezolid (Zyvox 600mg/D5W (Pmx)) 300 ml @ 300 mls/hr Q12 IVPB Last administered on 10/11/16 21:39; Admin Dose 300 MLS/HR; Start 10/06/16 at 21:00 Levothyroxine Sodium (Synthroid Iv) 12.5 mcg DAILY@06 IV Last administered on 05:13; Admin Dose 12.5 MCG; Start 10/07/16 at 06:00 Metoclopramide HCl (Reglan) 5 mg Q8 IV Last administered on 10/12/16 05:13; Admin Dose 5 MG; Start 10/06/16 at 22:00 Voriconazole 200 mg 200 mg BID PO Last administered on 10/11/16 21:39; Admin Dose 200 MG; Start 10/08/16 at 21:00 Meropenem 100 ml @ 200 mls/hr Q12 IVPB Last administered on 10/11/16 21:40; Admin Dose 200 MLS/HR; Start 10/11/16 at 21:00 Dextrose/Sodium Chloride (D5-1/2ns) 1,000 ml @ 75 mls/hr [id number] IV Last administered on 10/12/16 05:13; Admin Dose 75 MLS/HR; Start 10/11/16 at 14:00 BIGG HEWITT NP Oct 12, 2016 08:44 BIGG HEWITT NP Oct 12, 2016 08:44
--- NOTE | 2016-10-12 08:47 | CONS ---
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 Consultation available as needed Further recommendations depend on clinical course Patient seen in collaboration with Dr. Dawson Consultation Date/Type/Reason Admit Date/Time Sep 24, 2016 at 03:19 Initial Consult Date 09/24/16 Type of Consultation: GI Referring Provider: ROULA DEL TORO 24 HR Interval Summary Free Text/Dictation Tube feed at goal with minimal residual noted Hemoglobin stable GI sign off Exam/Review of Systems Vital Signs Vitals Vital Signs Date Time Temp Pulse Resp B/P Pulse Ox O2 Delivery O2 Flow Rate FiO2 10/12/16 08:00 99.3 111 9 95/63 97 Mechanical Ventilator 10/12/16 05:27 30 Intake and Output 10/11/16 10/11/16 10/12/16 14:59 22:59 06:59 Intake Total 1421.24 ml 1435 ml 1120 ml Output Total 435 ml 375 ml 480 ml Balance 986.24 ml 1060 ml 640 ml Exam Constitutional: frail, nonverbal at bedside Respiratory: clear to auscultation, diminished breath sounds, other (trach to vent) Cardiovascular: regular rate and rhythm Gastrointestinal: distended, non-tender, soft,Gtube in placed,rectal tube draining Skin: other (multiple decubitus ulcer) Results Result Diagram: 10/12/16 0415 10/12/16 0415 Results 24 hrs Laboratory Tests Test 10/11/16 13:21 10/11/16 18:29 10/12/16 00:51 10/12/16 04:15 Bedside Glucose 109 109 121 White Blood Count 8.3 Red Blood Count 3.38 L Hemoglobin 8.4 L Hematocrit 28.4 L Mean Corpuscular Volume 84.0 Mean Corpuscular Hemoglobin 24.9 L Mean Corpuscular Hemoglobin Concent 29.6 L Red Cell Distribution Width 20.1 H Platelet Count 194 Mean Platelet Volume 10.6 H Neutrophils % 74.0 Lymphocytes % 14.1 L Monocytes % 8.6 Eosinophils % 2.4 Basophils % 0.1 Nucleated Red Blood Cells % 0.0 Neutrophils # 6.1 Lymphocytes # 1.2 Monocytes # 0.7 Eosinophils # 0.2 Basophils # 0.0 Nucleated Red Blood Cells # 0.0 Sodium Level 134 L Potassium Level 3.3 L Chloride Level 100 Carbon Dioxide Level 22 Anion Gap 15 Blood Urea Nitrogen 28 H Creatinine 0.73 Glucose Level 94 Calcium Level 6.9 L Magnesium Level 1.7 Test 10/12/16 06:12 Bedside Glucose 98 Medications Medications Current Medications Acetaminophen (Tylenol Supp) 650 mg Q4H PRN [place] PAIN LEVEL 1-3 OR FEVER; Start 09/24/16 at 03:00 Eye Lubricant (Artificial Tears Oph) 1 drop TID BOTH EYES Last administered on 10/11/16 21:39; Admin Dose 1 DROP; Start 09/24/16 at 09:00 Sodium Hypochlorite (Dakin'S (1/4 Strength)) 1 applic BID IRR Last administered on 10/11/16 21:53; Admin Dose 1 APPLIC; Start 09/24/16 at 21:00 Pantoprazole (Protonix Iv) 40 mg BID@06,18 IV Last administered on 10/12/16 05: 13; Admin Dose 40 MG; Start 09/24/16 at 18:00 Collagenase (Santyl) 1 applic DAILY TOP Last administered on 10/11/16 09:59; Admin Dose 1 APPLIC; Start 09/24/16 at 20:30 Miscellaneous Information 1 ea NOTE XX ; Start 09/24/16 at 21:00 Glucose (Glutose) 15 gm Q15M PRN PO DECREASED GLUCOSE; Start 09/24/16 at 21:00 Glucose (Glutose) 22.5 gm Q15M PRN PO DECREASED GLUCOSE; Start 09/24/16 at 21: 00 Dextrose (D50w Syringe) 25 ml Q15M PRN IV DECREASED GLUCOSE; Start 09/24/16 at 21:00 Dextrose (D50w Syringe) 50 ml Q15M PRN IV DECREASED GLUCOSE; Start 09/24/16 at 21:00 Glucagon (Glucagen) 1 mg Q15M PRN IM DECREASED GLUCOSE; Start 09/24/16 at 21:00 Glucose 15 gm 15 gm Q15M PRN BUCCAL DECREASED GLUCOSE; Start 09/24/16 at 21:00 Acetaminophen (Ofirmev 1000mg/ 100ml Iv) 100 ml @ 400 mls/hr Q6H PRN IVPB FEVER Last administered on 10/07/16 17:14; Admin Dose 400 MLS/HR; Start at 22:00 Vancomycin HCl (Vancomycin Oral Syringe) 250 mg Q6 PO Last administered on 17:15; Admin Dose 250 MG; Start 09/26/16 at 18:00; Status Future Hold Lactobacillus Acidoph/Bulgaricus (Floranex) 1 tab TID PO Last administered on 13:22; Admin Dose 1 TAB; Start 09/26/16 at 21:00; Status Future Hold Atorvastatin Calcium (Lipitor) 20 mg QHS GTB Last administered on 10/05/16 21: 42; Admin Dose 20 MG; Start 09/28/16 at 21:00; Status Future Hold Finasteride (Proscar) 5 mg DAILY GTB Last administered on 10/06/16 09:12; Admin Dose 5 MG; Start 09/29/16 at 09:00; Status Future Hold Multivitamins Therapeutic (Theragran) 1 tab DAILY GTB Last administered on 09:12; Admin Dose 1 TAB; Start 09/29/16 at 09:00; Status Future Hold Zinc Sulfate (Zinc Sulfate) 220 mg DAILY NGT Last administered on 10/06/16 09: 13; Admin Dose 220 MG; Start 09/29/16 at 09:00; Status Future Hold Insulin Aspart (Novolog Insulin Pen) NOVOLOG *MILD* ALGORI... Q6 SC ; Start at 18:00 Ondansetron HCl (Zofran Inj) 4 mg Q6H PRN IV NAUSEA AND/OR VOMITING Last administered on 10/05/16 17:42; Admin Dose 4 MG; Start 09/29/16 at 07:30 Heparin Sodium (Porcine) (Heparin (5000 Units/0.5 ml)) 5,000 unit BID SC Last administered on 10/11/16 21:41; Admin Dose 5,000 UNIT; Start 09/29/16 at 09:00 Acetaminophen 650 mg 650 mg Q6H PRN GTB PAIN AND OR ELEVATED TEMP Last administered on 10/10/16 20:23; Admin Dose 650 MG; Start 10/02/16 at 08:00 Metronidazole (Flagyl 500 Mg (Pmx)) 100 ml @ 100 mls/hr Q8 IVPB Last administered on 10/12/16 05:12; Admin Dose 100 MLS/HR; Start 10/02/16 at 14:00 Midodrine 10 mg 10 mg TID@,,17 PO Last administered on 10/06/16 17:15; Admin Dose 10 MG; Start 10/06/16 at 01:00; Status Future Hold Norepinephrine 16 mg/Dextrose 500 ml @ 1.87 mls/hr TITRATE IV Last administered on 10/09/16 14:43; Admin Dose 15 MLS/HR; Start 10/06/16 at 16:30 Linezolid (Zyvox 600mg/D5W (Pmx)) 300 ml @ 300 mls/hr Q12 IVPB Last administered on 10/11/16 21:39; Admin Dose 300 MLS/HR; Start 10/06/16 at 21:00 Levothyroxine Sodium (Synthroid Iv) 12.5 mcg DAILY@06 IV Last administered on 05:13; Admin Dose 12.5 MCG; Start 10/07/16 at 06:00 Metoclopramide HCl (Reglan) 5 mg Q8 IV Last administered on 10/12/16 05:13; Admin Dose 5 MG; Start 10/06/16 at 22:00 Voriconazole 200 mg 200 mg BID PO Last administered on 10/11/16 21:39; Admin Dose 200 MG; Start 10/08/16 at 21:00 Meropenem 100 ml @ 200 mls/hr Q12 IVPB Last administered on 10/11/16 21:40; Admin Dose 200 MLS/HR; Start 10/11/16 at 21:00 Dextrose/Sodium Chloride (D5-1/2ns) 1,000 ml @ 75 mls/hr [id number] IV Last administered on 4/8/17at 05:13; Admin Dose 75 MLS/HR; Start 10/11/16 at 14:00 JOSE MARIA URENA Oct 12, 2016 08:47
[2016-10-12] MEDS: HEPARIN 5,000 UNIT/0.5 ML VIAL SC SCH ×2 (08:49→23:08)
[2016-10-12] MEDS ORDERED: MAGNESIUM SULFATE 2 GM/50 ML 50 ML IVPB ONE (09:00)
--- NOTE | 2016-10-12 09:11 | CONS ---
Date/Time of Note Date/Time of Note DATE: 10/12/16 TIME: 08:50 Assessment/Plan Assessment/Plan Additional Assessment/Plan 1. Acute kidney injury on chronic kidney disease. due to ATN from septic shock 2. septic shock on levophed 3. severe metabolic acidosis on bicarbonate drip 5. History of chronic respiratory failure, status post tracheostomy, on ventilator. 6. History of G-tube. 7. Poor mental status due to the previous cerebrovascular accident. 8. History of dementia. 9. History of hypertension. 10. Hypokalemia- repleted- am labs. 11. Anemia PLAN: on levophed gtt, now BP more stable critically ill good urine output yesterday, Na improved, K low, replacement ordered IVF to D51/2 NS at 75 cc/hr s/p palliative care meeting will follow up Total time spent int his patient follow up progress note, Updating / communicating with Nursing Staff took more than [address] Brandon Cruz Consultation Date/Type/Reason Admit Date/Time Sep 24, 2016 at 03:19 Initial Consult Date 09/24/16 Type of Consultation: GI Referring Provider: ROULA DEL TORO 24 HR Interval Summary Free Text/Dictation Cr normal, K 3.3, Na 133 Exam/Review of Systems Vital Signs Vitals Vital Signs Date Time Temp Pulse Resp B/P Pulse Ox O2 Delivery O2 Flow Rate FiO2 10/12/16 08:00 99.3 111 9 95/63 97 Mechanical Ventilator 10/12/16 05:27 30 Intake and Output 10/11/16 10/11/16 10/12/16 15:00 23:00 07:00 Intake Total 1426.24 ml 1445 ml 1080 ml Output Total 405 ml 370 ml 440 ml Balance 1021.24 ml 1075 ml 640 ml Exam ENMT: nl external ears & nose Neck: non-tender Respiratory: diminished breath sounds Cardiovascular: nl pulses Gastrointestinal: non-tender, other (rectal tube noted), soft Musculoskeletal: muscle weakness Extremities: normal pulses Lymph: nontender Results Result Diagram: 10/12/16 0415 10/12/16 0415 Results 24 hrs Laboratory Tests Test 10/11/16 13:21 10/11/16 18:29 10/12/16 00:51 10/12/16 04:15 Bedside Glucose 109 109 121 White Blood Count 8.3 Red Blood Count 3.38 L Hemoglobin 8.4 L Hematocrit 28.4 L Mean Corpuscular Volume 84.0 Mean Corpuscular Hemoglobin 24.9 L Mean Corpuscular Hemoglobin Concent 29.6 L Red Cell Distribution Width 20.1 H Platelet Count 194 Mean Platelet Volume 10.6 H Neutrophils % 74.0 Lymphocytes % 14.1 L Monocytes % 8.6 Eosinophils % 2.4 Basophils % 0.1 Nucleated Red Blood Cells % 0.0 Neutrophils # 6.1 Lymphocytes # 1.2 Monocytes # 0.7 Eosinophils # 0.2 Basophils # 0.0 Nucleated Red Blood Cells # 0.0 Sodium Level 134 L Potassium Level 3.3 L Chloride Level 100 Carbon Dioxide Level 22 Anion Gap 15 Blood Urea Nitrogen 28 H Creatinine 0.73 Glucose Level 94 Calcium Level 6.9 L Magnesium Level 1.7 Test 10/12/16 06:12 Bedside Glucose 98 Medications Medications Current Medications Acetaminophen (Tylenol Supp) 650 mg Q4H PRN [place] PAIN LEVEL 1-3 OR FEVER; Start 09/24/16 at 03:00 Eye Lubricant (Artificial Tears Oph) 1 drop TID BOTH EYES Last administered on 10/11/16 21:39; Admin Dose 1 DROP; Start 09/24/16 at 09:00 Sodium Hypochlorite (Dakin'S (1/4 Strength)) 1 applic BID IRR Last administered on 10/11/16 21:53; Admin Dose 1 APPLIC; Start 09/24/16 at 21:00 Pantoprazole (Protonix Iv) 40 mg BID@06,18 IV Last administered on 10/12/16 05: 13; Admin Dose 40 MG; Start 09/24/16 at 18:00 Collagenase (Santyl) 1 applic DAILY TOP Last administered on 10/11/16 09:59; Admin Dose 1 APPLIC; Start 09/24/16 at 20:30 Miscellaneous Information 1 ea NOTE XX ; Start 09/24/16 at 21:00 Glucose (Glutose) 15 gm Q15M PRN PO DECREASED GLUCOSE; Start 09/24/16 at 21:00 Glucose (Glutose) 22.5 gm Q15M PRN PO DECREASED GLUCOSE; Start 09/24/16 at 21: 00 Dextrose (D50w Syringe) 25 ml Q15M PRN IV DECREASED GLUCOSE; Start 09/24/16 at 21:00 Dextrose (D50w Syringe) 50 ml Q15M PRN IV DECREASED GLUCOSE; Start 09/24/16 at 21:00 Glucagon (Glucagen) 1 mg Q15M PRN IM DECREASED GLUCOSE; Start 09/24/16 at 21:00 Glucose 15 gm 15 gm Q15M PRN BUCCAL DECREASED GLUCOSE; Start 09/24/16 at 21:00 Acetaminophen (Ofirmev 1000mg/ 100ml Iv) 100 ml @ 400 mls/hr Q6H PRN IVPB FEVER Last administered on 10/07/16 17:14; Admin Dose 400 MLS/HR; Start at 22:00 Vancomycin HCl (Vancomycin Oral Syringe) 250 mg Q6 PO Last administered on 17:15; Admin Dose 250 MG; Start 09/26/16 at 18:00; Status Future Hold Lactobacillus Acidoph/Bulgaricus (Floranex) 1 tab TID PO Last administered on 13:22; Admin Dose 1 TAB; Start 09/26/16 at 21:00; Status Future Hold Atorvastatin Calcium (Lipitor) 20 mg QHS GTB Last administered on 10/05/16 21: 42; Admin Dose 20 MG; Start 09/28/16 at 21:00; Status Future Hold Finasteride (Proscar) 5 mg DAILY GTB Last administered on 10/06/16 09:12; Admin Dose 5 MG; Start 09/29/16 at 09:00; Status Future Hold Multivitamins Therapeutic (Theragran) 1 tab DAILY GTB Last administered on 09:12; Admin Dose 1 TAB; Start 09/29/16 at 09:00; Status Future Hold Zinc Sulfate (Zinc Sulfate) 220 mg DAILY NGT Last administered on 10/06/16 09: 13; Admin Dose 220 MG; Start 09/29/16 at 09:00; Status Future Hold Insulin Aspart (Novolog Insulin Pen) NOVOLOG *MILD* ALGORI... Q6 SC ; Start at 18:00 Ondansetron HCl (Zofran Inj) 4 mg Q6H PRN IV NAUSEA AND/OR VOMITING Last administered on 10/05/16 17:42; Admin Dose 4 MG; Start 09/29/16 at 07:30 Heparin Sodium (Porcine) (Heparin (5000 Units/0.5 ml)) 5,000 unit BID SC Last administered on 10/11/16 21:41; Admin Dose 5,000 UNIT; Start 09/29/16 at 09:00 Acetaminophen 650 mg 650 mg Q6H PRN GTB PAIN AND OR ELEVATED TEMP Last administered on 10/10/16 20:23; Admin Dose 650 MG; Start 10/02/16 at 08:00 Metronidazole (Flagyl 500 Mg (Pmx)) 100 ml @ 100 mls/hr Q8 IVPB Last administered on 10/12/16 05:12; Admin Dose 100 MLS/HR; Start 10/02/16 at 14:00 Midodrine 10 mg 10 mg TID@,,17 PO Last administered on 10/06/16 17:15; Admin Dose 10 MG; Start 10/06/16 at 01:00; Status Future Hold Norepinephrine 16 mg/Dextrose 500 ml @ 1.87 mls/hr TITRATE IV Last administered on 10/09/16 14:43; Admin Dose 15 MLS/HR; Start 10/06/16 at 16:30 Linezolid (Zyvox 600mg/D5W (Pmx)) 300 ml @ 300 mls/hr Q12 IVPB Last administered on 10/11/16 21:39; Admin Dose 300 MLS/HR; Start 10/06/16 at 21:00 Levothyroxine Sodium (Synthroid Iv) 12.5 mcg DAILY@06 IV Last administered on 05:13; Admin Dose 12.5 MCG; Start 10/07/16 at 06:00 Metoclopramide HCl (Reglan) 5 mg Q8 IV Last administered on 10/12/16 05:13; Admin Dose 5 MG; Start 10/06/16 at 22:00 Voriconazole 200 mg 200 mg BID PO Last administered on 10/11/16 21:39; Admin Dose 200 MG; Start 10/08/16 at 21:00 Meropenem 100 ml @ 200 mls/hr Q12 IVPB Last administered on 10/11/16 21:40; Admin Dose 200 MLS/HR; Start 10/11/16 at 21:00 Dextrose/Sodium Chloride 1,000 ml @ 75 mls/hr [id number] IV Last administered on 10/12/16 05:13; Admin Dose 75 MLS/HR; Start 10/11/16 at 14:00 Potassium Chloride 30 meq/ Sodium Chloride 165 ml @ 55 mls/hr ONCE ONCE IVPB ; Start 10/12/16 at 09:30; Stop 10/12/16 at 12:29 Magnesium Sulfate (Magnesium Sulfate 2 Gm/50 ml) 50 ml @ 25 mls/hr ONCE ONCE IVPB ; Start 10/12/16 at 09:00; Stop 10/12/16 at 10:59 NOELLE HYMAN Oct 12, 2016 09:00
[2016-10-12] MEDS ORDERED: POTASSIUM CHLORIDE 30 MEQ in SOD CHLORIDE 0.9% 150 ML IVPB ONE (09:30)
[2016-10-12] MEDS: MEROPENEM 1 GM/100 ML (PMX) 100 ML IVPB SCH ×2 (10:03→20:46)
--- NOTE | 2016-10-12 12:12 | CONS ---
Date/Time of Note Date/Time of Note DATE: 10/12/16 TIME: 12:08 Assessment/Plan Assessment/Plan Chief Complaint/Hosp Course ID PROGRESS NOTE TOTAL ABX DAY # => Zyvox, Merrem, Flagyl 24H INTERVAL SUMMARY * Clinically no changes => Low grade Tmax 99.9, WBC normalized, low dose pressors * Non-communicative on Vent, VSS, NAD PHYSICAL EXAMINATION: GENERAL: VSS, NAD HEENT: Unremarkable NECK: Trach -> Secure to Vent CHEST: Equal chest rise bilaterally, without dyspnea on observation HEART: Pulse RRR ABDOMEN: Soft/peg EXTREMITIES: Warm SKIN: See hard chart skin assessment ID ASSESSMENT: 81 yo M w/PMHx CVA w/Dementia, contracted extremities, VDRF, Peg admit with: 1. Admited w/Severe sepsis with shock==> off pressors. 2. Escherichia coli urinary tract infection with bacteremia. 3. Healthcare-associated pneumonia. 4. Anemia w/concern for Probable GI bleed (Coffee ground drainage from G tube) 5. Multiple infected decubitus on admission w/necrosis and deep tissue injury= > Polymicrobial MDRO 6. Persistent diarrhea, stool for Clostridium difficile negative. 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 7. Coronary artery disease and history of non-ST elevation [place] 8. Renal insufficiency -> s/p ANGELICA resolved (+)MRSA Nares =>s/p Bactroban INVASIVES: L-SC TLC, Trach, Peg, Cee, Rectal Tube ABX ALLERGY: KNDA CURRENT ABX: => Zyvox, Merrem, Flagyl ID RECOMMENDATIONS: 1. Continue current ABX => ID team to reassess after the weekend . . . Problems: Consultation Date/Type/Reason Admit Date/Time Sep 24, 2016 at 03:19 Initial Consult Date 09/24/16 Type of Consultation: ID Referring Provider: ROULA DEL TORO Exam/Review of Systems Vital Signs Vitals Vital Signs Date Time Temp Pulse Resp B/P Pulse Ox O2 Delivery O2 Flow Rate FiO2 10/12/16 12:00 99.3 107 12 106/68 97 Mechanical Ventilator 10/12/16 05:27 30 Intake and Output 10/11/16 10/11/16 10/12/16 15:00 23:00 07:00 Intake Total 1426.24 ml 1445 ml 1080 ml Output Total 405 ml 370 ml 440 ml Balance 1021.24 ml 1075 ml 640 ml Results Result Diagram: 10/12/16 0415 10/12/16 0415 Results 24 hrs Laboratory Tests Test 10/11/16 13:21 10/11/16 18:29 10/12/16 00:51 10/12/16 04:15 Bedside Glucose 109 109 121 White Blood Count 8.3 Red Blood Count 3.38 L Hemoglobin 8.4 L Hematocrit 28.4 L Mean Corpuscular Volume 84.0 Mean Corpuscular Hemoglobin 24.9 L Mean Corpuscular Hemoglobin Concent 29.6 L Red Cell Distribution Width 20.1 H Platelet Count 194 Mean Platelet Volume 10.6 H Neutrophils % 74.0 Lymphocytes % 14.1 L Monocytes % 8.6 Eosinophils % 2.4 Basophils % 0.1 Nucleated Red Blood Cells % 0.0 Neutrophils # 6.1 Lymphocytes # 1.2 Monocytes # 0.7 Eosinophils # 0.2 Basophils # 0.0 Nucleated Red Blood Cells # 0.0 Sodium Level 134 L Potassium Level 3.3 L Chloride Level 100 Carbon Dioxide Level 22 Anion Gap 15 Blood Urea Nitrogen 28 H Creatinine 0.73 Glucose Level 94 Calcium Level 6.9 L Magnesium Level 1.7 Test 10/12/16 06:12 Bedside Glucose 98 Medications Medications Current Medications Acetaminophen (Tylenol Supp) [address] PAIN LEVEL 1-3 OR FEVER; Start 09/24/16 at 03:00 Eye Lubricant (Artificial Tears Oph) 1 drop TID BOTH EYES Last administered on 10/12/16 08:42; Admin Dose 1 DROP; Start 09/24/16 at 09:00 Sodium Hypochlorite (Dakin'S (1/4 Strength)) 1 applic BID IRR Last administered on 10/12/16 08:42; Admin Dose 1 APPLIC; Start 09/24/16 at 21:00 Pantoprazole (Protonix Iv) 40 mg BID@06,18 IV Last administered on 10/12/16 05: 13; Admin Dose 40 MG; Start 09/24/16 at 18:00 Collagenase (Santyl) 1 applic DAILY TOP Last administered on 10/12/16 08:42; Admin Dose 1 APPLIC; Start 09/24/16 at 20:30 Miscellaneous Information 1 ea NOTE XX ; Start 09/24/16 at 21:00 Glucose (Glutose) 15 gm Q15M PRN PO DECREASED GLUCOSE; Start 09/24/16 at 21:00 Glucose (Glutose) 22.5 gm Q15M PRN PO DECREASED GLUCOSE; Start 09/24/16 at 21: 00 Dextrose (D50w Syringe) 25 ml Q15M PRN IV DECREASED GLUCOSE; Start 09/24/16 at 21:00 Dextrose (D50w Syringe) 50 ml Q15M PRN IV DECREASED GLUCOSE; Start 09/24/16 at 21:00 Glucagon (Glucagen) 1 mg Q15M PRN IM DECREASED GLUCOSE; Start 09/24/16 at 21:00 Glucose 15 gm 15 gm Q15M PRN BUCCAL DECREASED GLUCOSE; Start 09/24/16 at 21:00 Acetaminophen (Ofirmev 1000mg/ 100ml Iv) 100 ml @ 400 mls/hr Q6H PRN IVPB FEVER Last administered on 10/07/16 17:14; Admin Dose 400 MLS/HR; Start at 22:00 Vancomycin HCl (Vancomycin Oral Syringe) 250 mg Q6 PO Last administered on 17:15; Admin Dose 250 MG; Start 09/26/16 at 18:00; Status Future Hold Lactobacillus Acidoph/Bulgaricus (Floranex) 1 tab TID PO Last administered on 13:22; Admin Dose 1 TAB; Start 09/26/16 at 21:00; Status Future Hold Atorvastatin Calcium (Lipitor) 20 mg QHS GTB Last administered on 10/05/16 21: 42; Admin Dose 20 MG; Start 09/28/16 at 21:00; Status Future Hold Finasteride (Proscar) 5 mg DAILY GTB Last administered on 10/06/16 09:12; Admin Dose 5 MG; Start 09/29/16 at 09:00; Status Future Hold Multivitamins Therapeutic (Theragran) 1 tab DAILY GTB Last administered on 09:12; Admin Dose 1 TAB; Start 09/29/16 at 09:00; Status Future Hold Zinc Sulfate (Zinc Sulfate) 220 mg DAILY NGT Last administered on 10/06/16 09: 13; Admin Dose 220 MG; Start 09/29/16 at 09:00; Status Future Hold Ondansetron HCl (Zofran Inj) 4 mg Q6H PRN IV NAUSEA AND/OR VOMITING Last administered on 10/05/16 17:42; Admin Dose 4 MG; Start 09/29/16 at 07:30 Heparin Sodium (Porcine) (Heparin (5000 Units/0.5 ml)) 5,000 unit BID SC Last administered on 10/12/16 08:49; Admin Dose 5,000 UNIT; Start 09/29/16 at 09:00 Acetaminophen 650 mg 650 mg Q6H PRN GTB PAIN AND OR ELEVATED TEMP Last administered on 10/10/16 20:23; Admin Dose 650 MG; Start 10/02/16 at 08:00 Metronidazole (Flagyl 500 Mg (Pmx)) 100 ml @ 100 mls/hr Q8 IVPB Last administered on 10/12/16 05:12; Admin Dose 100 MLS/HR; Start 10/02/16 at 14:00 Midodrine 10 mg 10 mg TID@,,17 PO Last administered on 10/06/16 17:15; Admin Dose 10 MG; Start 10/06/16 at 01:00; Status Future Hold Norepinephrine 16 mg/Dextrose 500 ml @ 1.87 mls/hr TITRATE IV Last administered on 10/09/16 14:43; Admin Dose 15 MLS/HR; Start 10/06/16 at 16:30 Linezolid (Zyvox 600mg/D5W (Pmx)) 300 ml @ 300 mls/hr Q12 IVPB Last administered on 10/12/16 08:41; Admin Dose 300 MLS/HR; Start 10/06/16 at 21:00 Levothyroxine Sodium (Synthroid Iv) 12.5 mcg DAILY@06 IV Last administered on 05:13; Admin Dose 12.5 MCG; Start 10/07/16 at 06:00 Metoclopramide HCl (Reglan) 5 mg Q8 IV Last administered on 10/12/16 05:13; Admin Dose 5 MG; Start 10/06/16 at 22:00 Voriconazole 200 mg 200 mg BID PO Last administered on 10/12/16 08:41; Admin Dose 200 MG; Start 10/08/16 at 21:00 Meropenem 100 ml @ 200 mls/hr Q12 IVPB Last administered on 10/12/16 10:03; Admin Dose 200 MLS/HR; Start 10/11/16 at 21:00 Dextrose/Sodium Chloride 1,000 ml @ 75 mls/hr [id number] IV Last administered on 10/12/16 05:13; Admin Dose 75 MLS/HR; Start 10/11/16 at 14:00 Potassium Chloride/Sodium Chloride (KCl/NS) 165 ml @ 55 mls/hr ONCE ONCE IVPB Last administered on 10/12/16 11:00; Admin Dose 55 MLS/HR; Start 10/12/16 at 09 :30; Stop 10/12/16 at 12:29 KUSHAL HOUSE NP Oct 12, 2016 12:12
--- NOTE | 2016-10-12 13:12 | PN ---
DATE: 10/12/2016 CARDIOLOGY FOLLOWUP SUBJECTIVE: Discussed with the staff. The patient remains in ICU. Has been able to be taken off o f Levophed. Remains on trach, on the vent. Rhythm strip was reviewed. Remains in sinus rhythm, si nus tachycardia. MEDICATIONS: Reviewed. PHYSICAL EXAMINATION: VITAL SIGNS: Temperature 99.3, temperature max is 99.8, heart rate of 107, blood pressure of 103/73 , respiratory rate of 15, saturating 97%. HEENT: Normocephalic, atraumatic. Elderly gentleman. NECK: Status post tracheostomy, on the vent. CARDIOVASCULAR: Tachycardic. Systolic murmur. PULMONARY: Anteriorly with no wheezing, mild diffuse rhonchi. GASTROINTESTINAL: Soft. No rebound or guarding. Status post PEG placement. EXTREMITIES: Positive edema. NEUROLOGIC: Opens his eyes. PSYCHIATRIC: Appears to be calm. LABORATORY DATA: WBC of 8.3, hemoglobin 8.4, platelets 194. Sodium 134, potassium 3.3, BUN of 28, creatinine 0.73, glucose of 94. Magnesium is 1.7. INR on 09/27/2016 was .25. ASSESSMENT AND PLAN: 1. Aortic stenosis, appears to be moderate and stable. 2. Hypoxemic respiratory failure, status post tracheostomy. 3. Sepsis and shock. Currently blood pressure has improved and off all pressors starting this morn ing. 4. History of coronary artery disease. 5. Anemia. 6. Renal failure. 7. Encephalopathy. RECOMMENDATIONS: We will continue supportive care. Antibiotic management as per ID recommendation. Continue the vent support. Pressors as needed. Electrolytes will be corrected. Dictated By: ELIZABETH FUENTES MD AV/ELIZABETH Conf#: [id number] DID#: [id number] CC: EBEN AQUINO MD;*EndCC*
--- NOTE | 2016-10-12 17:10 | PN ---
DATE: 10/12/2016 SUBJECTIVE: Scrotal edema and penile edema. The patient himself is not and is not communicat jorge luis. OBJECTIVE: VITAL SIGNS: His temperature 99.3, pulse is 112, respirations 20, blood pressure 115/72. The patient is very contracted and the nurses were able to put some pillows between his thighs and b etween his knees so he does not squeeze on his scrotum, and elevated the scrotum. The scrotal edema ; however, still present as well as the penile edema. LABORATORY DATA: CBC shows a white count of 8.3, hemoglobin 8.4, hematocrit 28.4. The BUN 28, crea tinine 0.73, sodium 134, potassium 3.3, chloride 100, CO2 22. Urine culture showing Teresita glabrat a. The patient is on Voriconazole to treat that. PLAN: The plan is to keep the Cee in and keep the scrotum elevated on a towel and also keep a pil low between his knees to keep his legs . Dictated By: MISHEL WOODWARD/ELIZABETH Conf#: [id number] DID#: [id number]
--- NOTE | 2016-10-12 17:23 | CONS ---
Date/Time of Note Date/Time of Note DATE: 10/12/16 TIME: 17:21 Consult Date/Type/Reason Admit Date/Time Sep 24, 2016 at 03:19 Initial Consult Date 09/24/16 Type of Consultation: Pulm/CCM Ordering Provider: ROULA DEL TORO Subjective On MV; remains on low dose pressor support Objective Vital Signs Date Time Temp Pulse Resp B/P Pulse Ox O2 Delivery O2 Flow Rate FiO2 10/12/16 14:00 112 20 115/72 98 Mechanical Ventilator 10/12/16 12:00 99.3 10/12/16 11:25 30 Intake and Output 10/11/16 10/11/16 10/12/16 15:00 23:00 07:00 Intake Total 1426.24 ml 1445 ml 1080 ml Output Total 405 ml 370 ml 440 ml Balance 1021.24 ml 1075 ml 640 ml Exam HEENT: Pupils equal, round, and reactive to light. Tracheostomy site clean and intact. CARDIAC: S1, S2, 2 systolic ejection murmur CHEST: Coarse BS b/l ABDOMEN: Mildly distended. Bowel sounds present EXTREMITIES: No cyanosis, clubbing edema +2 Results/Medications Result Diagram: 10/12/16 0415 10/12/16 0415 Results 24 hrs Laboratory Tests Test 10/11/16 18:29 10/12/16 00:51 10/12/16 04:15 10/12/16 06:12 Bedside Glucose 109 121 98 White Blood Count 8.3 Red Blood Count 3.38 L Hemoglobin 8.4 L Hematocrit 28.4 L Mean Corpuscular Volume 84.0 Mean Corpuscular Hemoglobin 24.9 L Mean Corpuscular Hemoglobin Concent 29.6 L Red Cell Distribution Width 20.1 H Platelet Count 194 Mean Platelet Volume 10.6 H Neutrophils % 74.0 Lymphocytes % 14.1 L Monocytes % 8.6 Eosinophils % 2.4 Basophils % 0.1 Nucleated Red Blood Cells % 0.0 Neutrophils # 6.1 Lymphocytes # 1.2 Monocytes # 0.7 Eosinophils # 0.2 Basophils # 0.0 Nucleated Red Blood Cells # 0.0 Sodium Level 134 L Potassium Level 3.3 L Chloride Level 100 Carbon Dioxide Level 22 Anion Gap 15 Blood Urea Nitrogen 28 H Creatinine 0.73 Glucose Level 94 Calcium Level 6.9 L Magnesium Level 1.7 Medications Current Medications Acetaminophen (Tylenol Supp) 650 mg Q4H PRN [place] PAIN LEVEL 1-3 OR FEVER; Start 09/24/16 at 03:00 Eye Lubricant (Artificial Tears Oph) 1 drop TID BOTH EYES Last administered on 10/12/16 13:15; Admin Dose 1 DROP; Start 09/24/16 at 09:00 Sodium Hypochlorite (Dakin'S (1/4 Strength)) 1 applic BID IRR Last administered on 10/12/16 08:42; Admin Dose 1 APPLIC; Start 09/24/16 at 21:00 Pantoprazole (Protonix Iv) 40 mg BID@06,18 IV Last administered on 10/12/16 05: 13; Admin Dose 40 MG; Start 09/24/16 at 18:00 Collagenase (Santyl) 1 applic DAILY TOP Last administered on 10/12/16 08:42; Admin Dose 1 APPLIC; Start 09/24/16 at 20:30 Miscellaneous Information 1 ea NOTE XX ; Start 09/24/16 at 21:00 Glucose (Glutose) 15 gm Q15M PRN PO DECREASED GLUCOSE; Start 09/24/16 at 21:00 Glucose (Glutose) 22.5 gm Q15M PRN PO DECREASED GLUCOSE; Start 09/24/16 at 21: 00 Dextrose (D50w Syringe) 25 ml Q15M PRN IV DECREASED GLUCOSE; Start 09/24/16 at 21:00 Dextrose (D50w Syringe) 50 ml Q15M PRN IV DECREASED GLUCOSE; Start 09/24/16 at 21:00 Glucagon (Glucagen) 1 mg Q15M PRN IM DECREASED GLUCOSE; Start 09/24/16 at 21:00 Glucose 15 gm 15 gm Q15M PRN BUCCAL DECREASED GLUCOSE; Start 09/24/16 at 21:00 Acetaminophen (Ofirmev 1000mg/ 100ml Iv) 100 ml @ 400 mls/hr Q6H PRN IVPB FEVER Last administered on 10/07/16 17:14; Admin Dose 400 MLS/HR; Start at 22:00 Vancomycin HCl (Vancomycin Oral Syringe) 250 mg Q6 PO Last administered on 17:15; Admin Dose 250 MG; Start 09/26/16 at 18:00; Status Future Hold Lactobacillus Acidoph/Bulgaricus (Floranex) 1 tab TID PO Last administered on 13:22; Admin Dose 1 TAB; Start 09/26/16 at 21:00; Status Future Hold Atorvastatin Calcium (Lipitor) 20 mg QHS GTB Last administered on 10/05/16 21: 42; Admin Dose 20 MG; Start 09/28/16 at 21:00; Status Future Hold Finasteride (Proscar) 5 mg DAILY GTB Last administered on 10/06/16 09:12; Admin Dose 5 MG; Start 09/29/16 at 09:00; Status Future Hold Multivitamins Therapeutic (Theragran) 1 tab DAILY GTB Last administered on 09:12; Admin Dose 1 TAB; Start 09/29/16 at 09:00; Status Future Hold Zinc Sulfate (Zinc Sulfate) 220 mg DAILY NGT Last administered on 10/06/16 09: 13; Admin Dose 220 MG; Start 09/29/16 at 09:00; Status Future Hold Ondansetron HCl (Zofran Inj) 4 mg Q6H PRN IV NAUSEA AND/OR VOMITING Last administered on 10/05/16 17:42; Admin Dose 4 MG; Start 09/29/16 at 07:30 Heparin Sodium (Porcine) (Heparin (5000 Units/0.5 ml)) 5,000 unit BID SC Last administered on 10/12/16 08:49; Admin Dose 5,000 UNIT; Start 09/29/16 at 09:00 Acetaminophen 650 mg 650 mg Q6H PRN GTB PAIN AND OR ELEVATED TEMP Last administered on 10/10/16 20:23; Admin Dose 650 MG; Start 10/02/16 at 08:00 Metronidazole (Flagyl 500 Mg (Pmx)) 100 ml @ 100 mls/hr Q8 IVPB Last administered on 10/12/16 13:15; Admin Dose 100 MLS/HR; Start 10/02/16 at 14:00 Midodrine 10 mg 10 mg TID@,, PO Last administered on 10/06/16 17:15; Admin Dose 10 MG; Start 10/06/16 at 01:00; Status Future Hold Norepinephrine 16 mg/Dextrose 500 ml @ 1.87 mls/hr TITRATE IV Last administered on 10/09/16 14:43; Admin Dose 15 MLS/HR; Start 10/06/16 at 16:30 Linezolid (Zyvox 600mg/D5W (Pmx)) 300 ml @ 300 mls/hr Q12 IVPB Last administered on 10/12/16 08:41; Admin Dose 300 MLS/HR; Start 10/06/16 at 21:00 Levothyroxine Sodium (Synthroid Iv) 12.5 mcg DAILY@06 IV Last administered on 05:13; Admin Dose 12.5 MCG; Start 10/07/16 at 06:00 Metoclopramide HCl (Reglan) 5 mg Q8 IV Last administered on 10/12/16 13:15; Admin Dose 5 MG; Start 10/06/16 at 22:00 Voriconazole 200 mg 200 mg BID PO Last administered on 10/12/16 08:41; Admin Dose 200 MG; Start 10/08/16 at 21:00 Meropenem 100 ml @ 200 mls/hr Q12 IVPB Last administered on 10/12/16 10:03; Admin Dose 200 MLS/HR; Start 10/11/16 at 21:00 Dextrose/Sodium Chloride (D5-1/2ns) 1,000 ml @ 75 mls/hr [id number] IV Last administered on 10/12/16 05:13; Admin Dose 75 MLS/HR; Start 10/11/16 at 14:00 Assessment/Plan Additional Assessment/Plan IMP: 1. Septic shock likely secondary to pneumonia vs. Line sepsis 2. Respiratory failure 3. Vent dependent 4. Dysphagia with G-tube 5. Hypernatremia 6. History of renal insufficiency RECS: 1. Continue mechanical ventilation 2. Antibiotics per infectious diseases 3. Continue levophed to maintain MAP > 65 mm hg 4. Obtain cortisol and TSH 35 min cc time GODFREY GILLILAND MD Oct 12, 2016 17:23
[2016-10-12 20:08] LABS: THYROID STIMULATING HORMONE 18.1 MIU/L (0.465-4.680)
--- NOTE | 2016-10-12 22:51 | CONS ---
Date/Time of Note Date/Time of Note DATE: 10/12/16 TIME: 22:49 Assessment/Plan Assessment/Plan Chief Complaint/Hosp Course ANEMIA - NEAR- MICROCYTIC WITH INCREASED RDW DROP H/H DURING HOSPITALIZATION + ACD TRANSFUSE PRBC TO KEEP HB MORE THAN 8 TRANSFUSE NEEDED GI F-UP Stool OB, negative Monitor H&H every 8 hours, transfuse 2 units for hemoglobin less than 8 LEUKOCYTOSIS- REACTIVE CONT ATB FOR SEPSIS THROMBOCYTOSIS REACTIVE SHOULD IMPROVE WITH RESOLUTION OF SEPSIS Severe sepsis with septic shock 2/2 Decub ulcers and/or UTI and/or PNA: stable, off pressor support Severe hypernatremic dehydration Acute renal failure 2/2 ATN from dehydration UTI Multifocal pneumonia Encephalopathy ?acute versus acute on chronic (baseline unknown) Hypokalemia Problems: Consultation Date/Type/Reason Admit Date/Time Sep 24, 2016 at 03:19 Initial Consult Date 09/24/16 Type of Consultation: hemeon Referring Provider: ROULA DEL TORO 24 HR Interval Summary Free Text/Dictation remains on low dose pressor support Exam/Review of Systems Vital Signs Vitals Vital Signs Date Time Temp Pulse Resp B/P Pulse Ox O2 Delivery O2 Flow Rate FiO2 10/12/16 17:00 116 20 107/69 96 Mechanical Ventilator 10/12/16 17:00 30 10/12/16 16:00 99.0 Intake and Output 10/11/16 10/11/16 10/12/16 15:00 23:00 07:00 Intake Total 1426.24 ml 1445 ml 1080 ml Output Total 405 ml 370 ml 440 ml Balance 1021.24 ml 1075 ml 640 ml Exam Constitutional: No alert, No oriented Psych: No nl mood/affect Head: atraumatic, normocephalic Eyes: nl conjunctiva, No EOMI, No icteric ENMT: mucosa pink and moist, nl external ears & nose Neck: jvd, other (Trach in place), No non-tender, No supple Respiratory: No congested cough, No labored breathing Cardiovascular: No regular rate and rhythm Gastrointestinal: non-tender, other (PEG in place), soft, No rebound or guarding Musculoskeletal: No joint tenderness, No nl extremities to inspection, No nl gait and stance Extremities: No calf tenderness, No cyanosis Neurological: No nl mental status, No nl speech, No nl strength Skin: rash or lesions (Multiple decubitus ulcerations with debris, necrotic tissue, deep tissue injury), No diaphoresis, No nl turgor Lymph: nontender Results Result Diagram: 10/12/16 0415 10/12/16 0415 Results 24 hrs Laboratory Tests Test 10/12/16 00:51 10/12/16 04:15 10/12/16 06:12 10/12/16 18:15 Bedside Glucose 121 98 White Blood Count 8.3 Red Blood Count 3.38 L Hemoglobin 8.4 L Hematocrit 28.4 L Mean Corpuscular Volume 84.0 Mean Corpuscular Hemoglobin 24.9 L Mean Corpuscular Hemoglobin Concent 29.6 L Red Cell Distribution Width 20.1 H Platelet Count 194 Mean Platelet Volume 10.6 H Neutrophils % 74.0 Lymphocytes % 14.1 L Monocytes % 8.6 Eosinophils % 2.4 Basophils % 0.1 Nucleated Red Blood Cells % 0.0 Neutrophils # 6.1 Lymphocytes # 1.2 Monocytes # 0.7 Eosinophils # 0.2 Basophils # 0.0 Nucleated Red Blood Cells # 0.0 Sodium Level 134 L Potassium Level 3.3 L Chloride Level 100 Carbon Dioxide Level 22 Anion Gap 15 Blood Urea Nitrogen 28 H Creatinine 0.73 Glucose Level 94 Calcium Level 6.9 L Magnesium Level 1.7 Thyroid Stimulating Hormone (TSH) 18.100 H Random Cortisol 21.0 Medications Medications Current Medications Acetaminophen (Tylenol Supp) 650 mg Q4H PRN [place] PAIN LEVEL 1-3 OR FEVER; Start 09/24/16 at 03:00 Eye Lubricant (Artificial Tears Oph) 1 drop TID BOTH EYES Last administered on 10/12/16 20:45; Admin Dose 1 DROP; Start 09/24/16 at 09:00 Sodium Hypochlorite (Dakin'S (1/4 Strength)) 1 applic BID IRR Last administered on 10/12/16 21:54; Admin Dose 1 APPLIC; Start 09/24/16 at 21:00 Pantoprazole (Protonix Iv) 40 mg BID@06,18 IV Last administered on 10/12/16 18: 15; Admin Dose 40 MG; Start 09/24/16 at 18:00 Collagenase (Santyl) 1 applic DAILY TOP Last administered on 10/12/16 08:42; Admin Dose 1 APPLIC; Start 09/24/16 at 20:30 Miscellaneous Information 1 ea NOTE XX ; Start 09/24/16 at 21:00 Glucose (Glutose) 15 gm Q15M PRN PO DECREASED GLUCOSE; Start 09/24/16 at 21:00 Glucose (Glutose) 22.5 gm Q15M PRN PO DECREASED GLUCOSE; Start 09/24/16 at 21: 00 Dextrose (D50w Syringe) 25 ml Q15M PRN IV DECREASED GLUCOSE; Start 09/24/16 at 21:00 Dextrose (D50w Syringe) 50 ml Q15M PRN IV DECREASED GLUCOSE; Start 09/24/16 at 21:00 Glucagon (Glucagen) 1 mg Q15M PRN IM DECREASED GLUCOSE; Start 09/24/16 at 21:00 Glucose 15 gm 15 gm Q15M PRN BUCCAL DECREASED GLUCOSE; Start 09/24/16 at 21:00 Acetaminophen (Ofirmev 1000mg/ 100ml Iv) 100 ml @ 400 mls/hr Q6H PRN IVPB FEVER Last administered on 10/07/16 17:14; Admin Dose 400 MLS/HR; Start at 22:00 Vancomycin HCl (Vancomycin Oral Syringe) 250 mg Q6 PO Last administered on 17:15; Admin Dose 250 MG; Start 09/26/16 at 18:00; Status Future Hold Lactobacillus Acidoph/Bulgaricus (Floranex) 1 tab TID PO Last administered on 13:22; Admin Dose 1 TAB; Start 09/26/16 at 21:00; Status Future Hold Atorvastatin Calcium (Lipitor) 20 mg QHS GTB Last administered on 10/05/16 21: 42; Admin Dose 20 MG; Start 09/28/16 at 21:00; Status Future Hold Finasteride (Proscar) 5 mg DAILY GTB Last administered on 10/06/16 09:12; Admin Dose 5 MG; Start 09/29/16 at 09:00; Status Future Hold Multivitamins Therapeutic (Theragran) 1 tab DAILY GTB Last administered on 09:12; Admin Dose 1 TAB; Start 09/29/16 at 09:00; Status Future Hold Zinc Sulfate (Zinc Sulfate) 220 mg DAILY NGT Last administered on 10/06/16 09: 13; Admin Dose 220 MG; Start 09/29/16 at 09:00; Status Future Hold Ondansetron HCl (Zofran Inj) 4 mg Q6H PRN IV NAUSEA AND/OR VOMITING Last administered on 10/05/16 17:42; Admin Dose 4 MG; Start 09/29/16 at 07:30 Heparin Sodium (Porcine) (Heparin (5000 Units/0.5 ml)) 5,000 unit BID SC Last administered on 10/12/16 08:49; Admin Dose 5,000 UNIT; Start 09/29/16 at 09:00 Acetaminophen 650 mg 650 mg Q6H PRN GTB PAIN AND OR ELEVATED TEMP Last administered on 10/10/16 20:23; Admin Dose 650 MG; Start 10/02/16 at 08:00 Metronidazole (Flagyl 500 Mg (Pmx)) 100 ml @ 100 mls/hr Q8 IVPB Last administered on 10/12/16 13:15; Admin Dose 100 MLS/HR; Start 10/02/16 at 14:00 Midodrine 10 mg 10 mg TID@,,17 PO Last administered on 10/06/16 17:15; Admin Dose 10 MG; Start 10/06/16 at 01:00; Status Future Hold Norepinephrine 16 mg/Dextrose 500 ml @ 1.87 mls/hr TITRATE IV Last administered on 10/09/16 14:43; Admin Dose 15 MLS/HR; Start 10/06/16 at 16:30 Linezolid (Zyvox 600mg/D5W (Pmx)) 300 ml @ 300 mls/hr Q12 IVPB Last administered on 10/12/16 20:46; Admin Dose 300 MLS/HR; Start 10/06/16 at 21:00 Levothyroxine Sodium (Synthroid Iv) 12.5 mcg DAILY@06 IV Last administered on 05:13; Admin Dose 12.5 MCG; Start 10/07/16 at 06:00 Metoclopramide HCl (Reglan) 5 mg Q8 IV Last administered on 10/12/16 21:54; Admin Dose 5 MG; Start 10/06/16 at 22:00 Voriconazole 200 mg 200 mg BID PO Last administered on 10/12/16 20:46; Admin Dose 200 MG; Start 10/08/16 at 21:00 Meropenem 100 ml @ 200 mls/hr Q12 IVPB Last administered on 10/12/16 20:46; Admin Dose 200 MLS/HR; Start 10/11/16 at 21:00 Dextrose/Sodium Chloride (D5-1/2ns) 1,000 ml @ 75 mls/hr [id number] IV Last administered on 10/12/16 05:13; Admin Dose 75 MLS/HR; Start 10/11/16 at 14:00 SCOTT RODRIGUES MD Oct 12, 2016 22:50
[2016-10-13] VITALS (36 sets, daily range): BP systolic 87–110; BP diastolic 54–76; PULSE 105–120; RESP 14–27
[2016-10-13] MEDS: IPRATROPIUM (HFA) 12.9 GM INHALER INH SCH ×3 (01:24→13:22)
[2016-10-13] MEDS: ALBUTEROL HFA 8 GM INHALER INH SCH ×3 (01:24→13:22)
[2016-10-13 04:43] LABS: ADD SCAN DIFF NO
[2016-10-13 04:53] LABS: BASOPHILS % 0.3 % (0.0-2.0); EOSINOPHILS # 0.1 10^3/ul (0.0-0.5); EOSINOPHILS % 1.4 % (0.0-7.0); HEMATOCRIT 28.1 % (42.0-52.0); HEMOGLOBIN 8.3 g/dl (14.0-18.0); LYMPHOCYTES # 1.6 10^3/ul (0.8-2.9); LYMPHOCYTES % 17.8 % (15.0-51.0); MEAN CORPUSCULAR HEMOGLOBIN 24.6 pg (29.0-33.0); MEAN CORPUSCULAR HGB CONC 29.5 g/dl (32.0-37.0); MEAN CORPUSCULAR VOLUME 83.4 fl (82.0-101.0); MEAN PLATELET VOLUME 10.6 fl (7.4-10.4); MONOCYTE # 0.8 10^3/ul (0.3-0.9); NEUTROPHIL # 6.5 10^3/ul (1.6-7.5); NEUTROPHILS % 70.8 % (39.0-77.0); PLATELET COUNT 179 10^3/UL (140-415); RED BLOOD COUNT 3.37 10^6/ul (4.70-6.10); RED CELL DISTRIBUTION WIDTH 20.2 % (11.5-14.5); WHITE BLOOD COUNT 9.2 10^3/ul (4.8-10.8)
[2016-10-13 05:01] LABS: ALBUMIN 1.6 g/dl (3.3-4.9); POTASSIUM 3.6 mmol/L (3.5-5.1)
[2016-10-13 05:04] LABS: ALBUMIN/GLOBULIN RATIO 0.76; BILIRUBIN,DIRECT 0.1 mg/dl (0.00-0.20); BILIRUBIN,INDIRECT 0.2 mg/dl (0-1.1); BILIRUBIN,TOTAL 0.3 mg/dl (0.2-1.3); CREATININE 0.68 mg/dl (0.61-1.24); TOTAL PROTEIN 3.7 g/dl (6.1-8.1)
[2016-10-13 05:05] LABS: CALCIUM 6.9 mg/dl (8.4-10.2)
[2016-10-13 05:07] LABS: Allen Test ACCEPTAB; Arterial Base Excess -1.2 mmol/L (-3.0-3); Arterial COHb 0.3 % (0.0-3.0); Arterial Fraction of Oxyhgb 97.1 % (93.0-99.0); Arterial HCO3 22.3 mmol/L (22.0-26.0); Arterial MetHb 0.6 % (0.0-1.5); Arterial Total Hemglobin 9.7 g/dl (12.0-18.0); MODE VENT - AC
[2016-10-13] MEDS: LEVOTHYROXINE 100 MCG VIAL IV SCH (06:06)
[2016-10-13] MEDS: DEXTROSE 5%-0.45% NACL 1,000 ML IV SCH ×2 (06:06→19:00)
[2016-10-13] MEDS: metroNIDAZOLE 500 MG/NS (PMX) 100 ML IVPB SCH ×3 (06:07→21:17)
[2016-10-13] MEDS: PANTOPRAZOLE 40 MG INJ IV SCH ×2 (06:07→18:24)
[2016-10-13] MEDS: METOCLOPRAMIDE 10 MG INJ IV SCH ×3 (06:07→21:17)
[2016-10-13] MEDS: VORICONAZOLE 200 MG TAB PO SCH ×2 (09:10→21:08)
[2016-10-13] MEDS: HEPARIN 5,000 UNIT/0.5 ML VIAL SC SCH ×2 (09:10→21:15)
[2016-10-13] MEDS: MEROPENEM 1 GM/100 ML (PMX) 100 ML IVPB SCH ×2 (09:10→21:07)
[2016-10-13] MEDS: SODIUM HYPOCHLORITE 0.125% 473 ML BTL IRR SCH ×2 (09:10→21:07)
[2016-10-13] MEDS: ARTIFICIAL TEARS 15 ML OPH BOTH EYES SCH ×3 (09:11→21:20)
[2016-10-13] MEDS: LINEZOLID 600 MG/D5W (PMX) 300 ML IVPB SCH ×2 (09:11→21:08)
[2016-10-13] MEDS: COLLAGENASE 30 GM TUBE TOP SCH (09:11)
--- NOTE | 2016-10-13 09:19 | PN ---
Date/Time of Note Date/Time of Note DATE: 10/13/16 TIME: 09:16 Assessment/Plan VTE Prophylaxis VTE Prophylaxis Intervention: heparin Lines/Catheters IV [facility] Type [facility] Central Line Central line still needed: Yes Urinary Cath still in place: Yes Reason Cath still needed: skin wounds contaminated by urine Assessment/Plan Chief Complaint/Hosp Course 1. Sepsis with underlying septic shock secondary to infected sacral decubitus wound. The wound culture has been positive for Klebsiella pneumoniae, Acinetobacter baumannii, vancomycin-resistant Enterococcus and Staph aureus. Continue antimicrobials as per infectious diseases. S/P IV pressors. 2. Infected sacral decubitus ulcer. Continue pain management. Continue local dressing changes as per wound care consultants. 3. Chronic respiratory failure. Status post tracheostomy and vent dependent. Continue inhaled bronchodilators. Pulmonary following the patient. 4. Acute renal failure. Most probably secondary to hemodynamics versus from acute tubular necrosis. Continue to use nephrotoxic medications with caution. 5. 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 Continue antimicrobials as per ID. 6. 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 Continue supportive care. 7. Hypothyroidism. Continue Synthroid. 8. Dysphagia secondary to encephalopathy. Continue aspiration precautions. Continue G tube feedings. 9. Normocytic anemia. Continue to monitor the H and H closely. Transfuse as needed. 10. Leukocytosis with thrombocytosis. The patient being followed by Hematology. Continue to monitor. 11. Ileus. Resolved. Continue Reglan. Being followed by gastroenterology and Surgery. 12. Moderate . Continue monitoring. 13. DVT prophylaxis. Subcutaneous heparin. 14. Gastrointestinal prophylaxis. Proton pump inhibitors. 15 Fluid, electrolytes and nutrition. Continue G tube feedings. PLAN: 1. Continue ICU monitoring. 2. Poor prognosis. Palliative care on the case. Patient is a DNR. Case discussed with Dr. Chang. CRITICAL CARE TIME: 35 minutes. Problems: Subjective 24 Hr Interval Summary Free Text/Dictation Remains off pressors. Tolerating tube feeds. Exam/Review of Systems Vital Signs Vitals Vital Signs Date Time Temp Pulse Resp B/P Pulse Ox O2 Delivery O2 Flow Rate FiO2 10/13/16 08:43 107 19 100 30 10/13/16 07:00 90/64 Mechanical Ventilator 10/13/16 04:00 98.6 Intake and Output 10/12/16 10/12/16 10/13/16 15:00 23:00 07:00 Intake Total 1770 ml 500 ml 350 ml Output Total 360 ml 260 ml 280 ml Balance 1410 ml 240 ml 70 ml Results Result Diagram: 10/13/1639910/13/16399 Results 24 hrs Laboratory Tests Test 10/12/16 18:15 10/13/16 04:00 10/13/16 05:00 Thyroid Stimulating Hormone (TSH) 18.100 H Random Cortisol 21.0 White Blood Count 9.2 Red Blood Count 3.37 L Hemoglobin 8.3 L Hematocrit 28.1 L Mean Corpuscular Volume 83.4 Mean Corpuscular Hemoglobin 24.6 L Mean Corpuscular Hemoglobin Concent 29.5 L Red Cell Distribution Width 20.2 H Platelet Count 179 Mean Platelet Volume 10.6 H Neutrophils % 70.8 Lymphocytes % 17.8 Monocytes % 9.0 Eosinophils % 1.4 Basophils % 0.3 Nucleated Red Blood Cells % 0.0 Neutrophils # 6.5 Lymphocytes # 1.6 Monocytes # 0.8 Eosinophils # 0.1 Basophils # 0.0 Nucleated Red Blood Cells # 0.0 Sodium Level 134 L Potassium Level 3.6 Chloride Level 100 Carbon Dioxide Level 21 Anion Gap 17 H Blood Urea Nitrogen 26 H Creatinine 0.68 Glucose Level 77 Lactic Acid Level 4.7 *H Calcium Level 6.9 L Magnesium Level 1.8 Total Bilirubin 0.3 Direct Bilirubin 0.10 Indirect Bilirubin 0.2 Aspartate Amino Transf (AST/SGOT) 32 Alanine Aminotransferase (ALT/SGPT) 24 Alkaline Phosphatase 81 Total Protein 3.7 L Albumin 1.6 L Globulin 2.10 Albumin/Globulin Ratio 0.76 Blood Gas Specimen Source Blood arterial Arterial Blood Date Drawn 10/13/2016 5:01:51 AM Arterial Blood pH (Temp corrected) 7.455 H Arterial Blood pCO2 (Temp correct) 32.4 L Arterial Blood pO2 (Temp corrected) 114.8 H Arterial Blood HCO3 22.3 Arterial Blood Base Excess -1.2 Arterial Blood Oxygen Saturation 98.0 Ki Test ACCEPTAB Arterial Blood Gas Puncture Site Right Radial Arterial Blood Carboxyhemoglobin 0.3 Arterial Blood Methemoglobin 0.6 Blood Gas A-a O2 Differential 61.0 H Oxyhemoglobin Percent 97.1 Total Hemoglobin 9.7 L Blood Gas Temperature 37.0 Blood Gas Respiration Rate 16.0 Blood Gas Actual Respiration Rate 25 Blood Gas Modality VENT - AC FiO2 30.0 Blood Gas Tidal Volume 500.0 Blood Gas Low PEEP Setting 5.0 Blood Gas Inspiratory Pressure 25.0 Blood Gas Notified Whom BR Blood Gas Notified Time 10/13/2016 5:06:43 AM Medications Medications Current Medications Acetaminophen (Tylenol Supp) 650 mg Q4H PRN [place] PAIN LEVEL 1-3 OR FEVER; Start 09/24/16 at 03:00 Eye Lubricant (Artificial Tears Oph) 1 drop TID BOTH EYES Last administered on 10/13/16 09:11; Admin Dose 1 DROP; Start 09/24/16 at 09:00 Sodium Hypochlorite (Dakin'S (1/4 Strength)) 1 applic BID IRR Last administered on 10/13/16 09:10; Admin Dose 1 APPLIC; Start 09/24/16 at 21:00 Pantoprazole (Protonix Iv) 40 mg BID@06,18 IV Last administered on 10/13/16 06: 07; Admin Dose 40 MG; Start 09/24/16 at 18:00 Collagenase (Santyl) 1 applic DAILY TOP Last administered on 10/13/16 09:11; Admin Dose 1 APPLIC; Start 09/24/16 at 20:30 Miscellaneous Information 1 ea NOTE XX ; Start 09/24/16 at 21:00 Glucose (Glutose) 15 gm Q15M PRN PO DECREASED GLUCOSE; Start 09/24/16 at 21:00 Glucose (Glutose) 22.5 gm Q15M PRN PO DECREASED GLUCOSE; Start 09/24/16 at 21: 00 Dextrose (D50w Syringe) 25 ml Q15M PRN IV DECREASED GLUCOSE; Start 09/24/16 at 21:00 Dextrose (D50w Syringe) 50 ml Q15M PRN IV DECREASED GLUCOSE; Start 09/24/16 at 21:00 Glucagon (Glucagen) 1 mg Q15M PRN IM DECREASED GLUCOSE; Start 09/24/16 at 21:00 Glucose 15 gm 15 gm Q15M PRN BUCCAL DECREASED GLUCOSE; Start 09/24/16 at 21:00 Acetaminophen (Ofirmev 1000mg/ 100ml Iv) 100 ml @ 400 mls/hr Q6H PRN IVPB FEVER Last administered on 10/07/16 17:14; Admin Dose 400 MLS/HR; Start at 22:00 Vancomycin HCl (Vancomycin Oral Syringe) 250 mg Q6 PO Last administered on 17:15; Admin Dose 250 MG; Start 09/26/16 at 18:00; Status Future Hold Lactobacillus Acidoph/Bulgaricus (Floranex) 1 tab TID PO Last administered on 13:22; Admin Dose 1 TAB; Start 09/26/16 at 21:00; Status Future Hold Atorvastatin Calcium (Lipitor) 20 mg QHS GTB Last administered on 10/05/16 21: 42; Admin Dose 20 MG; Start 09/28/16 at 21:00; Status Future Hold Finasteride (Proscar) 5 mg DAILY GTB Last administered on 10/06/16 09:12; Admin Dose 5 MG; Start 09/29/16 at 09:00; Status Future Hold Multivitamins Therapeutic (Theragran) 1 tab DAILY GTB Last administered on 09:12; Admin Dose 1 TAB; Start 09/29/16 at 09:00; Status Future Hold Zinc Sulfate (Zinc Sulfate) 220 mg DAILY NGT Last administered on 10/06/16 09: 13; Admin Dose 220 MG; Start 09/29/16 at 09:00; Status Future Hold Ondansetron HCl (Zofran Inj) 4 mg Q6H PRN IV NAUSEA AND/OR VOMITING Last administered on 10/05/16 17:42; Admin Dose 4 MG; Start 09/29/16 at 07:30 Heparin Sodium (Porcine) (Heparin (5000 Units/0.5 ml)) 5,000 unit BID SC Last administered on 10/13/16 09:10; Admin Dose 5,000 UNIT; Start 09/29/16 at 09:00 Acetaminophen 650 mg 650 mg Q6H PRN GTB PAIN AND OR ELEVATED TEMP Last administered on 10/10/16 20:23; Admin Dose 650 MG; Start 10/02/16 at 08:00 Metronidazole (Flagyl 500 Mg (Pmx)) 100 ml @ 100 mls/hr Q8 IVPB Last administered on 10/13/16 06:07; Admin Dose 100 MLS/HR; Start 10/02/16 at 14:00 Midodrine 10 mg 10 mg TID@,,17 PO Last administered on 10/06/16 17:15; Admin Dose 10 MG; Start 10/06/16 at 01:00; Status Future Hold Norepinephrine 16 mg/Dextrose 500 ml @ 1.87 mls/hr TITRATE IV Last administered on 10/09/16 14:43; Admin Dose 15 MLS/HR; Start 10/06/16 at 16:30 Linezolid (Zyvox 600mg/D5W (Pmx)) 300 ml @ 300 mls/hr Q12 IVPB Last administered on 10/13/16 09:11; Admin Dose 300 MLS/HR; Start 10/06/16 at 21:00 Levothyroxine Sodium (Synthroid Iv) 12.5 mcg DAILY@06 IV Last administered on 06:06; Admin Dose 12.5 MCG; Start 10/07/16 at 06:00 Metoclopramide HCl (Reglan) 5 mg Q8 IV Last administered on 10/13/16 06:07; Admin Dose 5 MG; Start 10/06/16 at 22:00 Voriconazole 200 mg 200 mg BID PO Last administered on 10/13/16 09:10; Admin Dose 200 MG; Start 10/08/16 at 21:00 Meropenem 100 ml @ 200 mls/hr Q12 IVPB Last administered on 10/13/16 09:10; Admin Dose 200 MLS/HR; Start 10/11/16 at 21:00 Dextrose/Sodium Chloride (D5-1/2ns) 1,000 ml @ 75 mls/hr [id number] IV Last administered on 10/13/16 06:06; Admin Dose 75 MLS/HR; Start 10/11/16 at 14:00 BIGG HEWITT NP Oct 13, 2016 09:19
--- NOTE | 2016-10-13 10:18 | RADRPT ---
PROCEDURE: XR Chest. CLINICAL INDICATION: Sepsis, ventilated TECHNIQUE: Single frontal chest x-ray. COMPARISON: 10/08/2016 FINDINGS: Tracheostomy tube and left subclavian central venous catheter demonstrates stable and satisfactory p osition. The lungs volumes are low. There are compressive changes with vascular crowding and basilar atelectasis. There is retrocardiac consolidation, increased from previous exam. There is small left pleural effusion, new compared to previous exam. The cardiomediastinal silhouette is unremarkable. The soft tissues and osseous structures are unchanged. IMPRESSION: 1. Low lung volumes with compressive changes and basilar atelectasis, increased from previous exam. Cannot rule out superimposed pneumonia. 2. Stable and satisfactory position of tracheostomy tube and left subclavian central venous cathete r. 3. Small left pleural effusion, new compared to previous exam. RPTAT: AA .Malik Diaz MD, MD Date Time Electronically viewed and signed by .Malik Diaz MD, on 10/13/2016 10:18 .M/
--- NOTE | 2016-10-13 11:41 | CONS ---
Date/Time of Note Date/Time of Note DATE: 10/13/16 TIME: 11:31 Assessment/Plan Assessment/Plan Chief Complaint/Hosp Course nad, eyes open. on levophed, BUE/BLE extremities edema. dw staff Problems: Additional Assessment/Plan 1. Acute kidney injury on chronic kidney disease. due to ATN from septic shock 2. septic shock on levophed , lactic acid-4.7 today 3. severe metabolic acidosis on bicarbonate drip 5. History of chronic respiratory failure, status post tracheostomy, on ventilator. 6. History of G-tube. 7. Poor mental status due to the previous cerebrovascular accident. 8. History of dementia. 9. History of hypertension. 10. Hypokalemia- repleted- am labs. 11. Anemia 12. Edema - BUE- right arm more swollen than left arm, BLE - will order DVT x 4 extremiteis- Primary to FU results - 09/29- DVT negative PLAN: on levophed gtt, now BP more stable critically ill good urine output yesterday, Na improved, K low, replacement ordered IVF to D51/2 NS at 75 cc/hr s/p palliative care meeting will follow up Total time spent int his patient follow up progress note, Updating / communicating with MD/Nursing Staff took 60 minutes. Hannah Dinero Consultation Date/Type/Reason Admit Date/Time Sep 24, 2016 at 03:19 Initial Consult Date 09/24/16 Type of Consultation: [facility] Referring Provider: MOISES DINERO MD Exam/Review of Systems Vital Signs Vitals Vital Signs Date Time Temp Pulse Resp B/P Pulse Ox O2 Delivery O2 Flow Rate FiO2 10/13/16 08:43 107 19 100 30 10/13/16 07:00 90/64 Mechanical Ventilator 10/13/16 04:00 98.6 Intake and Output 10/12/16 10/12/16 10/13/16 15:00 23:00 07:00 Intake Total 1770 ml 500 ml 350 ml Output Total 360 ml 260 ml 280 ml Balance 1410 ml 240 ml 70 ml Exam Constitutional: alert Psych: nl mood/affect Head: atraumatic Eyes: PERRL, nl sclera ENMT: nl external ears & nose Cardiovascular: nl pulses Gastrointestinal: non-tender, soft Musculoskeletal: muscle weakness Extremities: edema, other (BUE. BLE- edema) Neurological: lethargic Skin: other Lymph: nontender Results Result Diagram: 10/13/16 0400 10/13/16 0400 Results 24 hrs Laboratory Tests Test 10/12/16 18:15 10/13/16 04:00 10/13/16 05:00 Thyroid Stimulating Hormone (TSH) 18.100 H Random Cortisol 21.0 White Blood Count 9.2 Red Blood Count 3.37 L Hemoglobin 8.3 L Hematocrit 28.1 L Mean Corpuscular Volume 83.4 Mean Corpuscular Hemoglobin 24.6 L Mean Corpuscular Hemoglobin Concent 29.5 L Red Cell Distribution Width 20.2 H Platelet Count 179 Mean Platelet Volume 10.6 H Neutrophils % 70.8 Lymphocytes % 17.8 Monocytes % 9.0 Eosinophils % 1.4 Basophils % 0.3 Nucleated Red Blood Cells % 0.0 Neutrophils # 6.5 Lymphocytes # 1.6 Monocytes # 0.8 Eosinophils # 0.1 Basophils # 0.0 Nucleated Red Blood Cells # 0.0 Sodium Level 134 L Potassium Level 3.6 Chloride Level 100 Carbon Dioxide Level 21 Anion Gap 17 H Blood Urea Nitrogen 26 H Creatinine 0.68 Glucose Level 77 Lactic Acid Level 4.7 *H Calcium Level 6.9 L Magnesium Level 1.8 Total Bilirubin 0.3 Direct Bilirubin 0.10 Indirect Bilirubin 0.2 Aspartate Amino Transf (AST/SGOT) 32 Alanine Aminotransferase (ALT/SGPT) 24 Alkaline Phosphatase 81 Total Protein 3.7 L Albumin 1.6 L Globulin 2.10 Albumin/Globulin Ratio 0.76 Blood Gas Specimen Source Blood arterial Arterial Blood Date Drawn 10/13/2016 5:01:51 AM Arterial Blood pH (Temp corrected) 7.455 H Arterial Blood pCO2 (Temp correct) 32.4 L Arterial Blood pO2 (Temp corrected) 114.8 H Arterial Blood HCO3 22.3 Arterial Blood Base Excess -1.2 Arterial Blood Oxygen Saturation 98.0 Ki Test ACCEPTAB Arterial Blood Gas Puncture Site Right Radial Arterial Blood Carboxyhemoglobin 0.3 Arterial Blood Methemoglobin 0.6 Blood Gas A-a O2 Differential 61.0 H Oxyhemoglobin Percent 97.1 Total Hemoglobin 9.7 L Blood Gas Temperature 37.0 Blood Gas Respiration Rate 16.0 Blood Gas Actual Respiration Rate 25 Blood Gas Modality VENT - AC FiO2 30.0 Blood Gas Tidal Volume 500.0 Blood Gas Low PEEP Setting 5.0 Blood Gas Inspiratory Pressure 25.0 Blood Gas Notified Whom BR Blood Gas Notified Time 10/13/2016 5:06:43 AM Medications Medications Current Medications Acetaminophen (Tylenol Supp) 650 mg Q4H PRN [place] PAIN LEVEL 1-3 OR FEVER; Start 09/24/16 at 03:00 Eye Lubricant (Artificial Tears Oph) 1 drop TID BOTH EYES Last administered on 10/13/16 09:11; Admin Dose 1 DROP; Start 09/24/16 at 09:00 Sodium Hypochlorite (Dakin'S (1/4 Strength)) 1 applic BID IRR Last administered on 10/13/16 09:10; Admin Dose 1 APPLIC; Start 09/24/16 at 21:00 Pantoprazole (Protonix Iv) 40 mg BID@06,18 IV Last administered on 10/13/16 06: 07; Admin Dose 40 MG; Start 09/24/16 at 18:00 Collagenase (Santyl) 1 applic DAILY TOP Last administered on 10/13/16 09:11; Admin Dose 1 APPLIC; Start 09/24/16 at 20:30 Miscellaneous Information 1 ea NOTE XX ; Start 09/24/16 at 21:00 Glucose (Glutose) 15 gm Q15M PRN PO DECREASED GLUCOSE; Start 09/24/16 at 21:00 Glucose (Glutose) 22.5 gm Q15M PRN PO DECREASED GLUCOSE; Start 09/24/16 at 21: 00 Dextrose (D50w Syringe) 25 ml Q15M PRN IV DECREASED GLUCOSE; Start 09/24/16 at 21:00 Dextrose (D50w Syringe) 50 ml Q15M PRN IV DECREASED GLUCOSE; Start 09/24/16 at 21:00 Glucagon (Glucagen) 1 mg Q15M PRN IM DECREASED GLUCOSE; Start 09/24/16 at 21:00 Glucose 15 gm 15 gm Q15M PRN BUCCAL DECREASED GLUCOSE; Start 09/24/16 at 21:00 Acetaminophen (Ofirmev 1000mg/ 100ml Iv) 100 ml @ 400 mls/hr Q6H PRN IVPB FEVER Last administered on 10/07/16 17:14; Admin Dose 400 MLS/HR; Start at 22:00 Vancomycin HCl (Vancomycin Oral Syringe) 250 mg Q6 PO Last administered on 17:15; Admin Dose 250 MG; Start 09/26/16 at 18:00; Status Future Hold Lactobacillus Acidoph/Bulgaricus (Floranex) 1 tab TID PO Last administered on 13:22; Admin Dose 1 TAB; Start 09/26/16 at 21:00; Status Future Hold Atorvastatin Calcium (Lipitor) 20 mg QHS GTB Last administered on 10/05/16 21: 42; Admin Dose 20 MG; Start 09/28/16 at 21:00; Status Future Hold Finasteride (Proscar) 5 mg DAILY GTB Last administered on 10/06/16 09:12; Admin Dose 5 MG; Start 09/29/16 at 09:00; Status Future Hold Multivitamins Therapeutic (Theragran) 1 tab DAILY GTB Last administered on 09:12; Admin Dose 1 TAB; Start 09/29/16 at 09:00; Status Future Hold Zinc Sulfate (Zinc Sulfate) 220 mg DAILY NGT Last administered on 10/06/16 09: 13; Admin Dose 220 MG; Start 09/29/16 at 09:00; Status Future Hold Ondansetron HCl (Zofran Inj) 4 mg Q6H PRN IV NAUSEA AND/OR VOMITING Last administered on 10/05/16 17:42; Admin Dose 4 MG; Start 09/29/16 at 07:30 Heparin Sodium (Porcine) (Heparin (5000 Units/0.5 ml)) 5,000 unit BID SC Last administered on 10/13/16 09:10; Admin Dose 5,000 UNIT; Start 09/29/16 at 09:00 Acetaminophen 650 mg 650 mg Q6H PRN GTB PAIN AND OR ELEVATED TEMP Last administered on 10/10/16 20:23; Admin Dose 650 MG; Start 10/02/16 at 08:00 Metronidazole (Flagyl 500 Mg (Pmx)) 100 ml @ 100 mls/hr Q8 IVPB Last administered on 10/13/16 06:07; Admin Dose 100 MLS/HR; Start 10/02/16 at 14:00 Midodrine 10 mg 10 mg TID@,,17 PO Last administered on 10/06/16 17:15; Admin Dose 10 MG; Start 10/06/16 at 01:00; Status Future Hold Norepinephrine 16 mg/Dextrose 500 ml @ 1.87 mls/hr TITRATE IV Last administered on 10/09/16 14:43; Admin Dose 15 MLS/HR; Start 10/06/16 at 16:30 Linezolid (Zyvox 600mg/D5W (Pmx)) 300 ml @ 300 mls/hr Q12 IVPB Last administered on 10/13/16 09:11; Admin Dose 300 MLS/HR; Start 10/06/16 at 21:00 Levothyroxine Sodium (Synthroid Iv) 12.5 mcg DAILY@06 IV Last administered on 06:06; Admin Dose 12.5 MCG; Start 10/07/16 at 06:00 Metoclopramide HCl (Reglan) 5 mg Q8 IV Last administered on 10/13/16 06:07; Admin Dose 5 MG; Start 10/06/16 at 22:00 Voriconazole 200 mg 200 mg BID PO Last administered on 10/13/16 09:10; Admin Dose 200 MG; Start 10/08/16 at 21:00 Meropenem 100 ml @ 200 mls/hr Q12 IVPB Last administered on 10/13/16 09:10; Admin Dose 200 MLS/HR; Start 10/11/16 at 21:00 Dextrose/Sodium Chloride (D5-1/2ns) 1,000 ml @ 75 mls/hr [id number] IV Last administered on 10/13/16 06:06; Admin Dose 75 MLS/HR; Start 10/11/16 at 14:00 NOELLE HYMAN Oct 13, 2016 11:41
--- NOTE | 2016-10-13 14:37 | CONS ---
Date/Time of Note Date/Time of Note DATE: 10/13/16 TIME: 14:28 Consult Date/Type/Reason Admit Date/Time Sep 24, 2016 at 03:19 Initial Consult Date 09/24/16 Type of Consultation: Pulm/CCM Ordering Provider: MOISES DINERO MD Subjective No events. On [facility] ventilation. On pressors Objective Vital Signs Date Time Temp Pulse Resp B/P Pulse Ox O2 Delivery O2 Flow Rate FiO2 10/13/16 13:22 115 22 100 30 10/13/16 12:00 98.6 103/69 Mechanical Ventilator Intake and Output 10/12/16 10/12/16 10/13/16 15:00 23:00 07:00 Intake Total 1770 ml 500 ml 475 ml Output Total 360 ml 260 ml 330 ml Balance 1410 ml 240 ml 145 ml Exam HEENT: Pupils equal, round, and reactive to light. Tracheostomy site clean and intact. CARDIAC: S1, S2, 2 systolic ejection murmur CHEST: Coarse BS b/l ABDOMEN: Mildly distended. Bowel sounds present EXTREMITIES: No cyanosis, clubbing edema +2 Results/Medications Result Diagram: 10/13/16 0400 10/13/16 0400 Results 24 hrs Laboratory Tests Test 10/12/16 18:15 10/13/16 04:00 10/13/16 05:00 Thyroid Stimulating Hormone (TSH) 18.100 H Random Cortisol 21.0 White Blood Count 9.2 Red Blood Count 3.37 L Hemoglobin 8.3 L Hematocrit 28.1 L Mean Corpuscular Volume 83.4 Mean Corpuscular Hemoglobin 24.6 L Mean Corpuscular Hemoglobin Concent 29.5 L Red Cell Distribution Width 20.2 H Platelet Count 179 Mean Platelet Volume 10.6 H Neutrophils % 70.8 Lymphocytes % 17.8 Monocytes % 9.0 Eosinophils % 1.4 Basophils % 0.3 Nucleated Red Blood Cells % 0.0 Neutrophils # 6.5 Lymphocytes # 1.6 Monocytes # 0.8 Eosinophils # 0.1 Basophils # 0.0 Nucleated Red Blood Cells # 0.0 Sodium Level 134 L Potassium Level 3.6 Chloride Level 100 Carbon Dioxide Level 21 Anion Gap 17 H Blood Urea Nitrogen 26 H Creatinine 0.68 Glucose Level 77 Lactic Acid Level 4.7 *H Calcium Level 6.9 L Magnesium Level 1.8 Total Bilirubin 0.3 Direct Bilirubin 0.10 Indirect Bilirubin 0.2 Aspartate Amino Transf (AST/SGOT) 32 Alanine Aminotransferase (ALT/SGPT) 24 Alkaline Phosphatase 81 Total Protein 3.7 L Albumin 1.6 L Globulin 2.10 Albumin/Globulin Ratio 0.76 Blood Gas Specimen Source Blood arterial Arterial Blood Date Drawn 10/13/2016 5:01:51 AM Arterial Blood pH (Temp corrected) 7.455 H Arterial Blood pCO2 (Temp correct) 32.4 L Arterial Blood pO2 (Temp corrected) 114.8 H Arterial Blood HCO3 22.3 Arterial Blood Base Excess -1.2 Arterial Blood Oxygen Saturation 98.0 Ki Test ACCEPTAB Arterial Blood Gas Puncture Site Right Radial Arterial Blood Carboxyhemoglobin 0.3 Arterial Blood Methemoglobin 0.6 Blood Gas A-a O2 Differential 61.0 H Oxyhemoglobin Percent 97.1 Total Hemoglobin 9.7 L Blood Gas Temperature 37.0 Blood Gas Respiration Rate 16.0 Blood Gas Actual Respiration Rate 25 Blood Gas Modality VENT - AC FiO2 30.0 Blood Gas Tidal Volume 500.0 Blood Gas Low PEEP Setting 5.0 Blood Gas Inspiratory Pressure 25.0 Blood Gas Notified Whom BR Blood Gas Notified Time 10/13/2016 5:06:43 AM Medications Current Medications Acetaminophen (Tylenol Supp) 650 mg Q4H PRN [place] PAIN LEVEL 1-3 OR FEVER; Start 09/24/16 at 03:00 Eye Lubricant (Artificial Tears Oph) 1 drop TID BOTH EYES Last administered on 10/13/16 13:03; Admin Dose 1 DROP; Start 09/24/16 at 09:00 Sodium Hypochlorite (Dakin'S (1/4 Strength)) 1 applic BID IRR Last administered on 10/13/16 09:10; Admin Dose 1 APPLIC; Start 09/24/16 at 21:00 Pantoprazole (Protonix Iv) 40 mg BID@06,18 IV Last administered on 10/13/16 06: 07; Admin Dose 40 MG; Start 09/24/16 at 18:00 Collagenase (Santyl) 1 applic DAILY TOP Last administered on 10/13/16 09:11; Admin Dose 1 APPLIC; Start 09/24/16 at 20:30 Miscellaneous Information 1 ea NOTE XX ; Start 09/24/16 at 21:00 Glucose (Glutose) 15 gm Q15M PRN PO DECREASED GLUCOSE; Start 09/24/16 at 21:00 Glucose (Glutose) 22.5 gm Q15M PRN PO DECREASED GLUCOSE; Start 09/24/16 at 21: 00 Dextrose (D50w Syringe) 25 ml Q15M PRN IV DECREASED GLUCOSE; Start 09/24/16 at 21:00 Dextrose (D50w Syringe) 50 ml Q15M PRN IV DECREASED GLUCOSE; Start 09/24/16 at 21:00 Glucagon (Glucagen) 1 mg Q15M PRN IM DECREASED GLUCOSE; Start 09/24/16 at 21:00 Glucose 15 gm 15 gm Q15M PRN BUCCAL DECREASED GLUCOSE; Start 09/24/16 at 21:00 Acetaminophen (Ofirmev 1000mg/ 100ml Iv) 100 ml @ 400 mls/hr Q6H PRN IVPB FEVER Last administered on 10/07/16 17:14; Admin Dose 400 MLS/HR; Start at 22:00 Vancomycin HCl (Vancomycin Oral Syringe) 250 mg Q6 PO Last administered on 17:15; Admin Dose 250 MG; Start 09/26/16 at 18:00; Status Future Hold Lactobacillus Acidoph/Bulgaricus (Floranex) 1 tab TID PO Last administered on 13:22; Admin Dose 1 TAB; Start 09/26/16 at 21:00; Status Future Hold Atorvastatin Calcium (Lipitor) 20 mg QHS GTB Last administered on 10/05/16 21: 42; Admin Dose 20 MG; Start 09/28/16 at 21:00; Status Future Hold Finasteride (Proscar) 5 mg DAILY GTB Last administered on 10/06/16 09:12; Admin Dose 5 MG; Start 09/29/16 at 09:00; Status Future Hold Multivitamins Therapeutic (Theragran) 1 tab DAILY GTB Last administered on 09:12; Admin Dose 1 TAB; Start 09/29/16 at 09:00; Status Future Hold Zinc Sulfate (Zinc Sulfate) 220 mg DAILY NGT Last administered on 10/06/16 09: 13; Admin Dose 220 MG; Start 09/29/16 at 09:00; Status Future Hold Ondansetron HCl (Zofran Inj) 4 mg Q6H PRN IV NAUSEA AND/OR VOMITING Last administered on 10/05/16 17:42; Admin Dose 4 MG; Start 09/29/16 at 07:30 Heparin Sodium (Porcine) (Heparin (5000 Units/0.5 ml)) 5,000 unit BID SC Last administered on 10/13/16 09:10; Admin Dose 5,000 UNIT; Start 09/29/16 at 09:00 Acetaminophen 650 mg 650 mg Q6H PRN GTB PAIN AND OR ELEVATED TEMP Last administered on 10/10/16 20:23; Admin Dose 650 MG; Start 10/02/16 at 08:00 Metronidazole (Flagyl 500 Mg (Pmx)) 100 ml @ 100 mls/hr Q8 IVPB Last administered on 10/13/16 13:03; Admin Dose 100 MLS/HR; Start 10/02/16 at 14:00 Midodrine 10 mg 10 mg TID@,,17 PO Last administered on 10/06/16 17:15; Admin Dose 10 MG; Start 10/06/16 at 01:00; Status Future Hold Norepinephrine 16 mg/Dextrose 500 ml @ 1.87 mls/hr TITRATE IV Last administered on 10/09/16 14:43; Admin Dose 15 MLS/HR; Start 10/06/16 at 16:30 Linezolid (Zyvox 600mg/D5W (Pmx)) 300 ml @ 300 mls/hr Q12 IVPB Last administered on 10/13/16 09:11; Admin Dose 300 MLS/HR; Start 10/06/16 at 21:00 Levothyroxine Sodium (Synthroid Iv) 12.5 mcg DAILY@06 IV Last administered on 06:06; Admin Dose 12.5 MCG; Start 10/07/16 at 06:00 Metoclopramide HCl (Reglan) 5 mg Q8 IV Last administered on 10/13/16 13:03; Admin Dose 5 MG; Start 10/06/16 at 22:00 Voriconazole 200 mg 200 mg BID PO Last administered on 10/13/16 09:10; Admin Dose 200 MG; Start 10/08/16 at 21:00 Meropenem 100 ml @ 200 mls/hr Q12 IVPB Last administered on 10/13/16 09:10; Admin Dose 200 MLS/HR; Start 10/11/16 at 21:00 Dextrose/Sodium Chloride (D5-1/2ns) 1,000 ml @ 75 mls/hr [id number] IV Last administered on 10/13/16t 06:06; Admin Dose 75 MLS/HR; Start 10/11/16 at 14:00 Assessment/Plan Additional Assessment/Plan IMP: 1. Septic shock likely secondary to pneumonia vs. Line sepsis 2. Respiratory failure 3. Vent dependence 4. Dysphagia with G-tube 5. Hypernatremia 6. Elevated TSH ? euthyroid sick RECS: 1. Continue mechanical ventilation 2. Antibiotics per infectious diseases 3. Continue levophed to maintain MAP > 65 mm hg 4. Obtain full TFT's 35 min cc time GODFREY GILLILAND MD Oct 13, 2016 14:37
--- NOTE | 2016-10-13 14:46 | RADRPT ---
PROCEDURE: Bilateral upper extremity venous ultrasound CLINICAL INDICATION: Bilateral upper extremity pain and swelling. Deep venous thrombosis. TECHNIQUE: Jeong scale, color doppler, spectral doppler ultrasound imaging of the venous system of the bilateral upper extremities. Augmentation maneuvers were utilized. 27 images are submitted. COMPARISON: No prior studies are available for comparison. FINDINGS: RIGHT: Internal jugular vein: Patent. Subclavian vein: Patent. Axillary vein: Patent. Brachial vein: Patent. Basilic vein: Patent. Cephalic vein: Patent. Radial vein: Patent. Ulnar vein: Patent. LEFT: Internal jugular vein: Patent. Subclavian vein: Patent. Axillary vein: Not visualized due to contracture. Brachial vein: Not visualized due to contracture. Basilic vein: Not visualized due to contracture. Cephalic vein: Not visualized due to contracture. Radial vein: Not visualized due to contracture. Ulnar vein: Not visualized due to contracture. IMPRESSION: No evidence of a deep vein thrombosis involving the bilateral upper extremities. Degraded visualization of the left upper extremity due to contracture. RPTAT: AADD .Nishant Siu MD, MD Date Time Electronically viewed and signed by .Nishant Siu MD, on 10/13/2016 14:46 .B/
--- NOTE | 2016-10-13 14:47 | RADRPT ---
PROCEDURE: Ultrasound of the left lower extremity venous system. CLINICAL INDICATION: Left leg pain and swelling, deep venous thrombosis TECHNIQUE: Jeong scale with and without compression, color doppler, spectral doppler of the venous system of the left lower extremity was performed. Venous augmentation maneuvers were utilized. COMPARISON: No prior studies are available for comparison. FINDINGS: Common femoral vein: Patent. Femoral vein: Not visualized due to contracture. Popliteal vein: Not visualized due to contracture. Calf veins: Not visualized due to contracture. No soft tissue abnormalities are identified. IMPRESSION: The left common femoral vein is patent. Remainder of the left lower extremity could not be examined due to patient contracture. RPTAT: AADD .Nishant Siu MD, MD Date Time Electronically viewed and signed by .Nishant Siu MD, on 10/13/2016 14:47 .B/
[2016-10-13] MEDS: ONDANSETRON 4 MG INJ IV PRN (16:10)
--- NOTE | 2016-10-13 16:19 | PN ---
DATE: 10/13/2016 CARDIOLOGY FOLLOWUP SUBJECTIVE: No new cardiac event. The patient off of pressors, still on the vent. Remains tachyca rdic but in sinus. No atrial fibrillation events. The patient is nonverbal. Discussed with the [facility] in the ICU. MEDICATIONS: Reviewed. PHYSICAL EXAMINATION: VITAL SIGNS: Temperature 98.6, heart rate of 115, blood pressure 103/69, respiration rate of 20, sa turating ____%. HEENT: Normocephalic, atraumatic. Pupils are equal. NECK: Status post tracheostomy, on the vent. CARDIOVASCULAR: Regular rhythm. Tachycardic. PULMONARY: With no wheezes anteriorly. Mild diffuse rhonchi. GASTROINTESTINAL: Soft, nontender. EXTREMITIES: Positive diffuse edema. NEUROLOGIC: Eyes are open; however, does not follow commands. PSYCHIATRIC: Appears to be calm. LABORATORY: WBC of 9.2, hemoglobin 8.3, platelets of 179. Sodium 134, potassium 3.6, BUN of 26, cr eatinine 0.68, glucose 77, ____ is 4.7, albumin is 1.6. Chest x-ray shows low lung volumes. ASSESSMENT AND PLAN: 1. Moderate aortic stenosis, appears to be stable. 2. Hypoxemic respiratory failure with tracheostomy, vent dependent. 3. Shock and sepsis, currently blood pressure is improved slightly, but still remains tachycardic. 4. History of coronary artery disease. 5. Anemia. 6. Renal failure. 7. Encephalopathy. 8. Malnutrition and low albumin level. RECOMMENDATIONS: Will continue with supportive care, vent support will be continued. Antibiotic as per ID's recommendation. We will continue to monitor him closely in the ICU. ____ replacement [place] l be continued. Dr. Wild and associate will follow up tomorrow. Dictated By: ELIZABETH FUENTES MD AV/NTS Conf#: [id number] DID#: [id number] CC: ; MISHEL MAO MD;*End*
--- NOTE | 2016-10-13 19:24 | CONS ---
Date/Time of Note Date/Time of Note DATE: 10/13/16 TIME: 19:23 Assessment/Plan Assessment/Plan Chief Complaint/Hosp Course ID PROGRESS NOTE TOTAL ABX DAY # => Zyvox, Merrem, Flagyl 24H INTERVAL SUMMARY * (-) DVT BUEXT & BLEXT -- assessment limited by contracted extremities -- +) generalized edema * Clinically no changes => Low grade Tmax 99.9, WBC normalized, low dose pressors * Non-communicative on Vent, VSS, NAD * CXR TODAY: IMPRESSION: * 1. Low lung volumes with compressive changes and basilar atelectasis, increased from previous exam. Cannot rule out superimposed pneumonia. * 2. Stable and satisfactory position of tracheostomy tube and left subclavian central venous catheter. * 3. Small left pleural effusion, new compared to previous exam. PHYSICAL EXAMINATION: GENERAL: VSS, NAD HEENT: Unremarkable NECK: Trach -> Secure to Vent CHEST: Equal chest rise bilaterally, without dyspnea on observation HEART: Pulse RRR ABDOMEN: Soft/peg EXTREMITIES: Warm SKIN: See hard chart skin assessment ID ASSESSMENT: 81 yo M w/PMHx CVA w/Dementia, contracted extremities, VDRF, Peg admit with: 1. Admited w/Severe sepsis with shock==> off pressors. 2. Escherichia coli urinary tract infection with bacteremia. 3. Healthcare-associated pneumonia. 4. Anemia w/concern for Probable GI bleed (Coffee ground drainage from G tube) 5. Multiple infected decubitus on admission w/necrosis and deep tissue injury= > Polymicrobial MDRO 6. Persistent diarrhea, stool for Clostridium difficile negative. 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 7. Coronary artery disease and history of non-ST elevation RI 8. Renal insufficiency -> s/p ANGELICA resolved (+)MRSA Nares =>s/p Bactroban INVASIVES: L-SC TLC, Trach, Peg, Cee, Rectal Tube ABX ALLERGY: KNDA CURRENT ABX: => Zyvox, Merrem, Flagyl ID RECOMMENDATIONS: 1. Continue current ABX => ID team to reassess after the weekend . . . Problems: Consultation Date/Type/Reason Admit Date/Time Sep 24, 2016 at 03:19 Initial Consult Date 09/24/16 Type of Consultation: ID Referring Provider: MOISES DINERO MD Exam/Review of Systems Vital Signs Vitals Vital Signs Date Time Temp Pulse Resp B/P Pulse Ox O2 Delivery O2 Flow Rate FiO2 10/13/16 18:00 117 21 105/67 100 Mechanical Ventilator 10/13/16 17:33 30 10/13/16 16:00 98.1 Intake and Output 10/12/16 10/12/16 10/13/16 15:00 23:00 07:00 Intake Total 1770 ml 500 ml 475 ml Output Total 360 ml 260 ml 330 ml Balance 1410 ml 240 ml 145 ml Results Result Diagram: 10/13/16 0400 10/13/16 0400 Results 24 hrs Laboratory Tests Test 10/13/16 04:00 10/13/16 05:00 10/13/16 15:25 White Blood Count 9.2 Red Blood Count 3.37 L Hemoglobin 8.3 L Hematocrit 28.1 L Mean Corpuscular Volume 83.4 Mean Corpuscular Hemoglobin 24.6 L Mean Corpuscular Hemoglobin Concent 29.5 L Red Cell Distribution Width 20.2 H Platelet Count 179 Mean Platelet Volume 10.6 H Neutrophils % 70.8 Lymphocytes % 17.8 Monocytes % 9.0 Eosinophils % 1.4 Basophils % 0.3 Nucleated Red Blood Cells % 0.0 Neutrophils # 6.5 Lymphocytes # 1.6 Monocytes # 0.8 Eosinophils # 0.1 Basophils # 0.0 Nucleated Red Blood Cells # 0.0 Sodium Level 134 L Potassium Level 3.6 Chloride Level 100 Carbon Dioxide Level 21 Anion Gap 17 H Blood Urea Nitrogen 26 H Creatinine 0.68 Glucose Level 77 Lactic Acid Level 4.7 *H Calcium Level 6.9 L Magnesium Level 1.8 Total Bilirubin 0.3 Direct Bilirubin 0.10 Indirect Bilirubin 0.2 Aspartate Amino Transf (AST/SGOT) 32 Alanine Aminotransferase (ALT/SGPT) 24 Alkaline Phosphatase 81 Total Protein 3.7 L Albumin 1.6 L Globulin 2.10 Albumin/Globulin Ratio 0.76 Blood Gas Specimen Source Blood arterial Arterial Blood Date Drawn 10/13/2016 5:01:51 AM Arterial Blood pH (Temp corrected) 7.455 H Arterial Blood pCO2 (Temp correct) 32.4 L Arterial Blood pO2 (Temp corrected) 114.8 H Arterial Blood HCO3 22.3 Arterial Blood Base Excess -1.2 Arterial Blood Oxygen Saturation 98.0 Ki Test ACCEPTAB Arterial Blood Gas Puncture Site Right Radial Arterial Blood Carboxyhemoglobin 0.3 Arterial Blood Methemoglobin 0.6 Blood Gas A-a O2 Differential 61.0 H Oxyhemoglobin Percent 97.1 Total Hemoglobin 9.7 L Blood Gas Temperature 37.0 Blood Gas Respiration Rate 16.0 Blood Gas Actual Respiration Rate 25 Blood Gas Modality VENT - AC FiO2 30.0 Blood Gas Tidal Volume 500.0 Blood Gas Low PEEP Setting 5.0 Blood Gas Inspiratory Pressure 25.0 Blood Gas Notified Whom BR Blood Gas Notified Time 10/13/2016 5:06:43 AM Free Thyroxine 0.75 L Free Triiodothyronine (T3) pg/mL 2.03 L Medications Medications Current Medications Acetaminophen (Tylenol Supp) 650 mg Q4H PRN [place] PAIN LEVEL 1-3 OR FEVER; Start 09/24/16 at 03:00 Eye Lubricant (Artificial Tears Oph) 1 drop TID BOTH EYES Last administered on 10/13/16 13:03; Admin Dose 1 DROP; Start 09/24/16 at 09:00 Sodium Hypochlorite (Dakin'S (1/4 Strength)) 1 applic BID IRR Last administered on 10/13/16 09:10; Admin Dose 1 APPLIC; Start 09/24/16 at 21:00 Pantoprazole (Protonix Iv) 40 mg BID@06,18 IV Last administered on 10/13/16 18: 24; Admin Dose 40 MG; Start 09/24/16 at 18:00 Collagenase (Santyl) 1 applic DAILY TOP Last administered on 10/13/16 09:11; Admin Dose 1 APPLIC; Start 09/24/16 at 20:30 Miscellaneous Information 1 ea NOTE XX ; Start 09/24/16 at 21:00 Glucose (Glutose) 15 gm Q15M PRN PO DECREASED GLUCOSE; Start 09/24/16 at 21:00 Glucose (Glutose) 22.5 gm Q15M PRN PO DECREASED GLUCOSE; Start 09/24/16 at 21: 00 Dextrose (D50w Syringe) 25 ml Q15M PRN IV DECREASED GLUCOSE; Start 09/24/16 at 21:00 Dextrose (D50w Syringe) 50 ml Q15M PRN IV DECREASED GLUCOSE; Start 09/24/16 at 21:00 Glucagon (Glucagen) 1 mg Q15M PRN IM DECREASED GLUCOSE; Start 09/24/16 at 21:00 Glucose 15 gm 15 gm Q15M PRN BUCCAL DECREASED GLUCOSE; Start 09/24/16 at 21:00 Acetaminophen (Ofirmev 1000mg/ 100ml Iv) 100 ml @ 400 mls/hr Q6H PRN IVPB FEVER Last administered on 10/07/16 17:14; Admin Dose 400 MLS/HR; Start at 22:00 Vancomycin HCl (Vancomycin Oral Syringe) 250 mg Q6 PO Last administered on 17:15; Admin Dose 250 MG; Start 09/26/16 at 18:00; Status Future Hold Lactobacillus Acidoph/Bulgaricus (Floranex) 1 tab TID PO Last administered on 13:22; Admin Dose 1 TAB; Start 09/26/16 at 21:00; Status Future Hold Atorvastatin Calcium (Lipitor) 20 mg QHS GTB Last administered on 10/05/16 21: 42; Admin Dose 20 MG; Start 09/28/16 at 21:00; Status Future Hold Finasteride (Proscar) 5 mg DAILY GTB Last administered on 10/06/16 09:12; Admin Dose 5 MG; Start 09/29/16 at 09:00; Status Future Hold Multivitamins Therapeutic (Theragran) 1 tab DAILY GTB Last administered on 09:12; Admin Dose 1 TAB; Start 09/29/16 at 09:00; Status Future Hold Zinc Sulfate (Zinc Sulfate) 220 mg DAILY NGT Last administered on 10/06/16 09: 13; Admin Dose 220 MG; Start 09/29/16 at 09:00; Status Future Hold Ondansetron HCl (Zofran Inj) 4 mg Q6H PRN IV NAUSEA AND/OR VOMITING Last administered on 10/13/16 16:10; Admin Dose 4 MG; Start 09/29/16 at 07:30 Heparin Sodium (Porcine) (Heparin (5000 Units/0.5 ml)) 5,000 unit BID SC Last administered on 10/13/16 09:10; Admin Dose 5,000 UNIT; Start 09/29/16 at 09:00 Acetaminophen 650 mg 650 mg Q6H PRN GTB PAIN AND OR ELEVATED TEMP Last administered on 10/10/16 20:23; Admin Dose 650 MG; Start 10/02/16 at 08:00 Metronidazole (Flagyl 500 Mg (Pmx)) 100 ml @ 100 mls/hr Q8 IVPB Last administered on 10/13/16 13:03; Admin Dose 100 MLS/HR; Start 10/02/16 at 14:00 Midodrine 10 mg 10 mg TID@,,17 PO Last administered on 10/06/16 17:15; Admin Dose 10 MG; Start 10/06/16 at 01:00; Status Future Hold Norepinephrine 16 mg/Dextrose 500 ml @ 1.87 mls/hr TITRATE IV Last administered on 10/09/16 14:43; Admin Dose 15 MLS/HR; Start 10/06/16 at 16:30 Linezolid (Zyvox 600mg/D5W (Pmx)) 300 ml @ 300 mls/hr Q12 IVPB Last administered on 10/13/16 09:11; Admin Dose 300 MLS/HR; Start 10/06/16 at 21:00 Levothyroxine Sodium (Synthroid Iv) 12.5 mcg DAILY@06 IV Last administered on 06:06; Admin Dose 12.5 MCG; Start 10/07/16 at 06:00 Metoclopramide HCl (Reglan) 5 mg Q8 IV Last administered on 10/13/16 13:03; Admin Dose 5 MG; Start 10/06/16 at 22:00 Voriconazole 200 mg 200 mg BID PO Last administered on 10/13/16 09:10; Admin Dose 200 MG; Start 10/08/16 at 21:00 Meropenem 100 ml @ 200 mls/hr Q12 IVPB Last administered on 10/13/16 09:10; Admin Dose 200 MLS/HR; Start 10/11/16 at 21:00 Dextrose/Sodium Chloride (D5-1/2ns) 1,000 ml @ 75 mls/hr [id number] IV Last administered on 10/13/16 06:06; Admin Dose 75 MLS/HR; Start 10/11/16 at 14:00 KUSHAL HOUSE NP Oct 13, 2016 19:24
--- NOTE | 2016-10-13 20:39 | PN ---
Date/Time of Note Date/Time of Note DATE: 10/12/16 TIME: 20:38 Assessment/Plan Lines/Catheters IV Catheter Type (from [facility]): Central Line Cee in Place (from [facility]): Yes Assessment/Plan Chief Complaint/Hosp Course 1. Shock, septic (uti, pna, wound). Improving. -Judicious fluid management -Supportive measures -Antibiotics 2. Multiple decubitus ulcerations with necrotic tissue and deep tissue injury -Offload -Local care -Vitamin C -Eventual nutritional optimization -Debridement when medically cleared 3. Contracted state with functional quadriplegia -Offloading -Nutritional optimization when possible 4. Anemia -Monitor 5. Ventilator dependent respiratory failure -Ventilator management and pulmonary toilet 6. Renal insufficiency -Judicious fluid management -Avoid nephrotoxic agents 7. Coronary artery disease and history of non-ST elevation MD -Cardiac optimization 8. Vomiting 2nd Ileus -bowel regimen per GI Thank you Late entry 10/12 Problems: Subjective 24 Hr Interval Summary Fevers improved. No chills. No cough. No seizure. No rash. No blood rectum. No bloating. No seizures. No pyuria. Exam/Review of Systems Vital Signs Vitals Vital Signs Date Time Temp Pulse Resp B/P Pulse Ox O2 Delivery O2 Flow Rate FiO2 10/13/16 18:00 117 21 105/67 100 Mechanical Ventilator 10/13/16 17:33 30 10/13/16 16:00 98.1 Intake and Output 10/12/16 10/12/16 10/13/16 15:00 23:00 07:00 Intake Total 1770 ml 500 ml 475 ml Output Total 360 ml 260 ml 330 ml Balance 1410 ml 240 ml 145 ml Exam Free Text/Dictation Constitutional: No alert, No oriented Psych: No nl mood/affect Head: atraumatic, normocephalic Eyes: nl conjunctiva, No EOMI, No icteric ENMT: mucosa pink and moist, nl external ears & nose Neck: jvd, other (Trach in place), No non-tender, No supple Respiratory: No congested cough, No labored breathing Cardiovascular: No regular rate and rhythm Gastrointestinal: non-tender, other (PEG in place), soft, No rebound or guarding Musculoskeletal: No joint tenderness, No nl extremities to inspection, No nl gait and stance Extremities: No calf tenderness, No cyanosis Neurological: No nl mental status, No nl speech, No nl strength Skin: rash or lesions (Multiple decubitus ulcerations with debris, necrotic tissue, deep tissue injury), No diaphoresis, No nl turgor Lymph: nontender Results Result Diagram: 10/13/1639910/13/16399 EVA GUARDADO MD Oct 13, 2016 20:39
--- NOTE | 2016-10-13 20:39 | PN ---
Date/Time of Note Date/Time of Note DATE: 10/13/16 TIME: 20:39 Assessment/Plan Lines/Catheters IV Catheter Type (from [facility]): Central Line Cee in Place (from [facility]): Yes Assessment/Plan Chief Complaint/Hosp Course 1. Shock, septic (uti, pna, wound). Improving. -Judicious fluid management -Supportive measures -Antibiotics 2. Multiple decubitus ulcerations with necrotic tissue and deep tissue injury -Offload -Local care -Vitamin C -Eventual nutritional optimization -Debridement when medically cleared 3. Contracted state with functional quadriplegia -Offloading -Nutritional optimization when possible 4. Anemia -Monitor 5. Ventilator dependent respiratory failure -Ventilator management and pulmonary toilet 6. Renal insufficiency -Judicious fluid management -Avoid nephrotoxic agents 7. Coronary artery disease and history of non-ST elevation CT -Cardiac optimization 8. Vomiting 2nd Ileus -bowel regimen per GI Thank you Problems: Subjective 24 Hr Interval Summary No fevers or chills. No cough. No seizure. No rash. No blood rectum. No bloating. No seizures. No pyuria. Exam/Review of Systems Vital Signs Vitals Vital Signs Date Time Temp Pulse Resp B/P Pulse Ox O2 Delivery O2 Flow Rate FiO2 10/13/16 18:00 117 21 105/67 100 Mechanical Ventilator 10/13/16 17:33 30 10/13/16 16:00 98.1 Intake and Output 10/12/16 10/12/16 10/13/16 15:00 23:00 07:00 Intake Total 1770 ml 500 ml 475 ml Output Total 360 ml 260 ml 330 ml Balance 1410 ml 240 ml 145 ml Exam Free Text/Dictation Constitutional: No alert, No oriented Psych: No nl mood/affect Head: atraumatic, normocephalic Eyes: nl conjunctiva, No EOMI, No icteric ENMT: mucosa pink and moist, nl external ears & nose Neck: jvd, other (Trach in place), No non-tender, No supple Respiratory: No congested cough, No labored breathing Cardiovascular: No regular rate and rhythm Gastrointestinal: non-tender, other (PEG in place), soft, No rebound or guarding Musculoskeletal: No joint tenderness, No nl extremities to inspection, No nl gait and stance Extremities: No calf tenderness, No cyanosis Neurological: No nl mental status, No nl speech, No nl strength Skin: rash or lesions (Multiple decubitus ulcerations with debris, necrotic tissue, deep tissue injury), No diaphoresis, No nl turgor Lymph: nontender Results Result Diagram: 10/13/1639910/13/16399 EVA GUARADDO MD Oct 13, 2016 20:39
--- NOTE | 2016-10-13 21:44 | CONS ---
Date/Time of Note Date/Time of Note DATE: 10/13/16 TIME: 21:41 Assessment/Plan Assessment/Plan Chief Complaint/Hosp Course ANEMIA - NEAR- MICROCYTIC WITH INCREASED RDW DROP H/H DURING HOSPITALIZATION + ACD TRANSFUSE PRBC TO KEEP HB MORE THAN 8 TRANSFUSE NEEDED GI F-UP Stool OB, negative Monitor H&H every 8 hours, transfuse 2 units for hemoglobin less than 8 LEUKOCYTOSIS- REACTIVE CONT ATB FOR SEPSIS THROMBOCYTOSIS REACTIVE SHOULD IMPROVE WITH RESOLUTION OF SEPSIS Severe sepsis with septic shock 2/2 Decub ulcers and/or UTI and/or PNA: stable, off pressor support Severe hypernatremic dehydration Acute renal failure 2/2 ATN from dehydration UTI Multifocal pneumonia Encephalopathy ?acute versus acute on chronic (baseline unknown) Hypokalemia Problems: Consultation Date/Type/Reason Admit Date/Time Sep 24, 2016 at 03:19 Initial Consult Date 09/24/16 Type of Consultation: [facility] Referring Provider: MOISES DINERO MD 24 HR Interval Summary Free Text/Dictation ALL NOTED IMPROVING COUNT STABLE NO BLEEDING Exam/Review of Systems Vital Signs Vitals Vital Signs Date Time Temp Pulse Resp B/P Pulse Ox O2 Delivery O2 Flow Rate FiO2 10/13/16 18:00 117 21 105/67 100 Mechanical Ventilator 10/13/16 17:33 30 10/13/16 16:00 98.1 Intake and Output 10/12/16 10/12/16 10/13/16 15:00 23:00 07:00 Intake Total 1770 ml 500 ml 475 ml Output Total 360 ml 260 ml 330 ml Balance 1410 ml 240 ml 145 ml Exam Free Text/Dictation Constitutional: No alert, No oriented Psych: No nl mood/affect Head: atraumatic, normocephalic Eyes: nl conjunctiva, No EOMI, No icteric ENMT: mucosa pink and moist, nl external ears & nose Neck: jvd, other (Trach in place), No non-tender, No supple Respiratory: No congested cough, No labored breathing Cardiovascular: No regular rate and rhythm Gastrointestinal: non-tender, other (PEG in place), soft, No rebound or guarding Musculoskeletal: No joint tenderness, No nl extremities to inspection, No nl gait and stance Extremities: No calf tenderness, No cyanosis Neurological: No nl mental status, No nl speech, No nl strength Skin: rash or lesions (Multiple decubitus ulcerations with debris, necrotic tissue, deep tissue injury), No diaphoresis, No nl turgor Lymph: nontender Results Result Diagram: 10/13/16 0400 10/13/16 0400 Results 24 hrs Laboratory Tests Test 10/13/16 04:00 10/13/16 05:00 10/13/16 15:25 White Blood Count 9.2 Red Blood Count 3.37 L Hemoglobin 8.3 L Hematocrit 28.1 L Mean Corpuscular Volume 83.4 Mean Corpuscular Hemoglobin 24.6 L Mean Corpuscular Hemoglobin Concent 29.5 L Red Cell Distribution Width 20.2 H Platelet Count 179 Mean Platelet Volume 10.6 H Neutrophils % 70.8 Lymphocytes % 17.8 Monocytes % 9.0 Eosinophils % 1.4 Basophils % 0.3 Nucleated Red Blood Cells % 0.0 Neutrophils # 6.5 Lymphocytes # 1.6 Monocytes # 0.8 Eosinophils # 0.1 Basophils # 0.0 Nucleated Red Blood Cells # 0.0 Sodium Level 134 L Potassium Level 3.6 Chloride Level 100 Carbon Dioxide Level 21 Anion Gap 17 H Blood Urea Nitrogen 26 H Creatinine 0.68 Glucose Level 77 Lactic Acid Level 4.7 *H Calcium Level 6.9 L Magnesium Level 1.8 Total Bilirubin 0.3 Direct Bilirubin 0.10 Indirect Bilirubin 0.2 Aspartate Amino Transf (AST/SGOT) 32 Alanine Aminotransferase (ALT/SGPT) 24 Alkaline Phosphatase 81 Total Protein 3.7 L Albumin 1.6 L Globulin 2.10 Albumin/Globulin Ratio 0.76 Blood Gas Specimen Source Blood arterial Arterial Blood Date Drawn 10/13/2016 5:01:51 AM Arterial Blood pH (Temp corrected) 7.455 H Arterial Blood pCO2 (Temp correct) 32.4 L Arterial Blood pO2 (Temp corrected) 114.8 H Arterial Blood HCO3 22.3 Arterial Blood Base Excess -1.2 Arterial Blood Oxygen Saturation 98.0 Ki Test ACCEPTAB Arterial Blood Gas Puncture Site Right Radial Arterial Blood Carboxyhemoglobin 0.3 Arterial Blood Methemoglobin 0.6 Blood Gas A-a O2 Differential 61.0 H Oxyhemoglobin Percent 97.1 Total Hemoglobin 9.7 L Blood Gas Temperature 37.0 Blood Gas Respiration Rate 16.0 Blood Gas Actual Respiration Rate 25 Blood Gas Modality VENT - AC FiO2 30.0 Blood Gas Tidal Volume 500.0 Blood Gas Low PEEP Setting 5.0 Blood Gas Inspiratory Pressure 25.0 Blood Gas Notified Whom BR Blood Gas Notified Time 10/13/2016 5:06:43 AM Free Thyroxine 0.75 L Free Triiodothyronine (T3) pg/mL 2.03 L Medications Medications Current Medications Acetaminophen (Tylenol Supp) 650 mg Q4H PRN [place] PAIN LEVEL 1-3 OR FEVER; Start 09/24/16 at 03:00 Eye Lubricant (Artificial Tears Oph) 1 drop TID BOTH EYES Last administered on 10/13/16 21:20; Admin Dose 1 DROP; Start 09/24/16 at 09:00 Sodium Hypochlorite (Dakin'S (1/4 Strength)) 1 applic BID IRR Last administered on 10/13/16 21:07; Admin Dose 1 APPLIC; Start 09/24/16 at 21:00 Pantoprazole (Protonix Iv) 40 mg BID@06,18 IV Last administered on 10/13/16 18: 24; Admin Dose 40 MG; Start 09/24/16 at 18:00 Collagenase (Santyl) 1 applic DAILY TOP Last administered on 10/13/16 09:11; Admin Dose 1 APPLIC; Start 09/24/16 at 20:30 Miscellaneous Information 1 ea NOTE XX ; Start 09/24/16 at 21:00 Glucose (Glutose) 15 gm Q15M PRN PO DECREASED GLUCOSE; Start 09/24/16 at 21:00 Glucose (Glutose) 22.5 gm Q15M PRN PO DECREASED GLUCOSE; Start 09/24/16 at 21: 00 Dextrose (D50w Syringe) 25 ml Q15M PRN IV DECREASED GLUCOSE; Start 09/24/16 at 21:00 Dextrose (D50w Syringe) 50 ml Q15M PRN IV DECREASED GLUCOSE; Start 09/24/16 at 21:00 Glucagon (Glucagen) 1 mg Q15M PRN IM DECREASED GLUCOSE; Start 09/24/16 at 21:00 Glucose 15 gm 15 gm Q15M PRN BUCCAL DECREASED GLUCOSE; Start 09/24/16 at 21:00 Acetaminophen (Ofirmev 1000mg/ 100ml Iv) 100 ml @ 400 mls/hr Q6H PRN IVPB FEVER Last administered on 10/07/16 17:14; Admin Dose 400 MLS/HR; Start at 22:00 Vancomycin HCl (Vancomycin Oral Syringe) 250 mg Q6 PO Last administered on 17:15; Admin Dose 250 MG; Start 09/26/16 at 18:00; Status Future Hold Lactobacillus Acidoph/Bulgaricus (Floranex) 1 tab TID PO Last administered on 13:22; Admin Dose 1 TAB; Start 09/26/16 at 21:00; Status Future Hold Atorvastatin Calcium (Lipitor) 20 mg QHS GTB Last administered on 10/05/16 21: 42; Admin Dose 20 MG; Start 09/28/16 at 21:00; Status Future Hold Finasteride (Proscar) 5 mg DAILY GTB Last administered on 10/06/16 09:12; Admin Dose 5 MG; Start 09/29/16 at 09:00; Status Future Hold Multivitamins Therapeutic (Theragran) 1 tab DAILY GTB Last administered on 09:12; Admin Dose 1 TAB; Start 09/29/16 at 09:00; Status Future Hold Zinc Sulfate (Zinc Sulfate) 220 mg DAILY NGT Last administered on 10/06/16 09: 13; Admin Dose 220 MG; Start 09/29/16 at 09:00; Status Future Hold Ondansetron HCl (Zofran Inj) 4 mg Q6H PRN IV NAUSEA AND/OR VOMITING Last administered on 10/13/16 16:10; Admin Dose 4 MG; Start 09/29/16 at 07:30 Heparin Sodium (Porcine) (Heparin (5000 Units/0.5 ml)) 5,000 unit BID SC Last administered on 10/13/16 21:15; Admin Dose 5,000 UNIT; Start 09/29/16 at 09:00 Acetaminophen 650 mg 650 mg Q6H PRN GTB PAIN AND OR ELEVATED TEMP Last administered on 10/10/16 20:23; Admin Dose 650 MG; Start 10/02/16 at 08:00 Metronidazole (Flagyl 500 Mg (Pmx)) 100 ml @ 100 mls/hr Q8 IVPB Last administered on 10/13/16 21:17; Admin Dose 100 MLS/HR; Start 10/02/16 at 14:00 Midodrine 10 mg 10 mg TID@,,17 PO Last administered on 4/2/17at 17:15; Admin Dose 10 MG; Start 10/06/16 at 01:00; Status Future Hold Norepinephrine 16 mg/Dextrose 500 ml @ 1.87 mls/hr TITRATE IV Last administered on 10/09/16 14:43; Admin Dose 15 MLS/HR; Start 10/06/16 at 16:30 Linezolid (Zyvox 600mg/D5W (Pmx)) 300 ml @ 300 mls/hr Q12 IVPB Last administered on 10/13/16 21:08; Admin Dose 300 MLS/HR; Start 10/06/16 at 21:00 Levothyroxine Sodium (Synthroid Iv) 12.5 mcg DAILY@06 IV Last administered on 06:06; Admin Dose 12.5 MCG; Start 10/07/16 at 06:00 Metoclopramide HCl (Reglan) 5 mg Q8 IV Last administered on 10/13/16 21:17; Admin Dose 5 MG; Start 10/06/16 at 22:00 Voriconazole 200 mg 200 mg BID PO Last administered on 10/13/16 21:08; Admin Dose 200 MG; Start 10/08/16 at 21:00 Meropenem 100 ml @ 200 mls/hr Q12 IVPB Last administered on 10/13/16 21:07; Admin Dose 200 MLS/HR; Start 10/11/16 at 21:00 Dextrose/Sodium Chloride (D5-1/2ns) 1,000 ml @ 75 mls/hr [id number] IV Last administered on 10/13/16 19:00; Admin Dose 75 MLS/HR; Start 10/11/16 at 14:00 SCOTT RODRIGUES MD Oct 13, 2016 21:44
[2016-10-14] VITALS (40 sets, daily range): BP systolic 83–120; BP diastolic 56–79; PULSE 96–111; RESP 15–29
[2016-10-14] MEDS: ALBUTEROL HFA 8 GM INHALER INH SCH ×4 (01:32→19:31)
[2016-10-14] MEDS: IPRATROPIUM (HFA) 12.9 GM INHALER INH SCH ×4 (01:32→19:31)
[2016-10-14 05:24] LABS: ADD SCAN DIFF NO
[2016-10-14 05:26] LABS: BASOPHILS % 0.1 % (0.0-2.0); EOSINOPHILS # 0.1 10^3/ul (0.0-0.5); EOSINOPHILS % 1.1 % (0.0-7.0); HEMATOCRIT 25.4 % (42.0-52.0); HEMOGLOBIN 7.4 g/dl (14.0-18.0); LYMPHOCYTES # 1.4 10^3/ul (0.8-2.9); LYMPHOCYTES % 17.3 % (15.0-51.0); MEAN CORPUSCULAR HEMOGLOBIN 24.5 pg (29.0-33.0); MEAN CORPUSCULAR HGB CONC 29.1 g/dl (32.0-37.0); MEAN CORPUSCULAR VOLUME 84.1 fl (82.0-101.0); MEAN PLATELET VOLUME 11.8 fl (7.4-10.4); MONOCYTE # 0.8 10^3/ul (0.3-0.9); NEUTROPHIL # 5.7 10^3/ul (1.6-7.5); PLATELET COUNT 162 10^3/UL (140-415); RED BLOOD COUNT 3.02 10^6/ul (4.70-6.10); RED CELL DISTRIBUTION WIDTH 20.1 % (11.5-14.5); WHITE BLOOD COUNT 8.1 10^3/ul (4.8-10.8)
[2016-10-14 05:44] LABS: CALCIUM 6.8 mg/dl (8.4-10.2); CREATININE 0.57 mg/dl (0.61-1.24); POTASSIUM 3.9 mmol/L (3.5-5.1)
[2016-10-14] MEDS: LEVOTHYROXINE 100 MCG VIAL IV SCH (06:00)
[2016-10-14] MEDS: METOCLOPRAMIDE 10 MG INJ IV SCH ×3 (06:00→22:25)
[2016-10-14] MEDS: PANTOPRAZOLE 40 MG INJ IV SCH ×2 (06:00→18:49)
[2016-10-14] MEDS: metroNIDAZOLE 500 MG/NS (PMX) 100 ML IVPB SCH ×3 (06:01→22:25)
[2016-10-14] MEDS: DEXTROSE 5%-0.45% NACL 1,000 ML IV SCH ×2 (06:01→22:36)
[2016-10-14 07:10] LABS: MAGNESIUM 1.8 mg/dl (1.7-2.5); PHOSPHORUS 3.1 mg/dl (2.5-4.9)
[2016-10-14] MEDS: LINEZOLID 600 MG/D5W (PMX) 300 ML IVPB SCH ×2 (09:22→22:26)
[2016-10-14] MEDS: VORICONAZOLE 200 MG TAB PO SCH ×2 (09:22→22:26)
[2016-10-14] MEDS: MEROPENEM 1 GM/100 ML (PMX) 100 ML IVPB SCH (09:23)
[2016-10-14] MEDS: HEPARIN 5,000 UNIT/0.5 ML VIAL SC SCH ×2 (09:23→22:29)
[2016-10-14] MEDS: SODIUM HYPOCHLORITE 0.125% 473 ML BTL IRR SCH ×2 (09:24→21:00)
[2016-10-14] MEDS: ARTIFICIAL TEARS 15 ML OPH BOTH EYES SCH ×3 (09:25→22:25)
[2016-10-14] MEDS: COLLAGENASE 30 GM TUBE TOP SCH (09:25)
--- NOTE | 2016-10-14 10:41 | CONS ---
Date/Time of Note Date/Time of Note DATE: 10/14/16 TIME: 10:40 Assessment/Plan Assessment/Plan Additional Assessment/Plan Severe septic shock Preserved ejection fraction Moderate aortic stenosis Respiratory failure Coronary artery disease Anemia, worsening Acute kidney injury -Patient off IV pressor, antibiotics as per infectious disease, withhold any antihypertensives at the current time given recent sepsis. Consultation Date/Type/Reason Admit Date/Time Sep 24, 2016 at 03:19 Initial Consult Date 09/24/16 Type of Consultation: cv Referring Provider: MOISES DINERO MD 24 HR Interval Summary Free Text/Dictation Patient seen and examined, off IV pressor, no new cardiac issues as per nursing staff Exam/Review of Systems Vital Signs Vitals Vital Signs Date Time Temp Pulse Resp B/P Pulse Ox O2 Delivery O2 Flow Rate FiO2 10/14/16 09:00 101 24 111/71 100 Mechanical Ventilator 10/14/16 08:10 30 10/14/16 08:00 98.9 Intake and Output 10/13/16 10/13/16 10/14/16 15:00 23:00 07:00 Intake Total 1450 ml 800 ml 625 ml Output Total 500 ml 475 ml 465 ml Balance 950 ml 325 ml 160 ml Exam Awake, not following commands, no apparent distress Head: normocephalic Neck: other (Tracheostomy) Respiratory: other (Coarse breath sounds bilaterally, no wheezing) Cardiovascular: other (S1-S2 heard), regular rate and rhythm Gastrointestinal: distended, non-tender, other (No grimacing with palpation), soft Extremities: edema Results Result Diagram: 10/14/16 0410 10/14/16 0410 Results 24 hrs Laboratory Tests Test 10/13/16 15:25 10/14/16 04:10 Free Thyroxine 0.75 L Free Triiodothyronine (T3) pg/mL 2.03 L White Blood Count 8.1 Red Blood Count 3.02 L Hemoglobin 7.4 L Hematocrit 25.4 L Mean Corpuscular Volume 84.1 Mean Corpuscular Hemoglobin 24.5 L Mean Corpuscular Hemoglobin Concent 29.1 L Red Cell Distribution Width 20.1 H Platelet Count 162 Mean Platelet Volume 11.8 H Neutrophils % 71.0 Lymphocytes % 17.3 Monocytes % 10.0 Eosinophils % 1.1 Basophils % 0.1 Nucleated Red Blood Cells % 0.0 Neutrophils # 5.7 Lymphocytes # 1.4 Monocytes # 0.8 Eosinophils # 0.1 Basophils # 0.0 Nucleated Red Blood Cells # 0.0 Sodium Level 130 L Potassium Level 3.9 Chloride Level 104 Carbon Dioxide Level 23 Anion Gap 7 #L Blood Urea Nitrogen 23 H Creatinine 0.57 L Glucose Level 73 Lactic Acid Level 4.1 *H Calcium Level 6.8 L Phosphorus Level 3.1 Magnesium Level 1.8 Medications Medications Current Medications Acetaminophen (Tylenol Supp) 650 mg Q4H PRN [place] PAIN LEVEL 1-3 OR FEVER; Start 09/24/16 at 03:00 Eye Lubricant (Artificial Tears Oph) 1 drop TID BOTH EYES Last administered on 10/14/16 09:25; Admin Dose 1 DROP; Start 09/24/16 at 09:00 Sodium Hypochlorite (Dakin'S (1/4 Strength)) 1 applic BID IRR Last administered on 10/14/16 09:24; Admin Dose 1 APPLIC; Start 09/24/16 at 21:00 Pantoprazole (Protonix Iv) 40 mg BID@06,18 IV Last administered on 10/14/16 06 :00; Admin Dose 40 MG; Start 09/24/16 at 18:00 Collagenase (Santyl) 1 applic DAILY TOP Last administered on 10/14/16 09:25; Admin Dose 1 APPLIC; Start 09/24/16 at 20:30 Miscellaneous Information 1 ea NOTE XX ; Start 09/24/16 at 21:00 Glucose (Glutose) 15 gm Q15M PRN PO DECREASED GLUCOSE; Start 09/24/16 at 21:00 Glucose (Glutose) 22.5 gm Q15M PRN PO DECREASED GLUCOSE; Start 09/24/16 at 21: 00 Dextrose (D50w Syringe) 25 ml Q15M PRN IV DECREASED GLUCOSE; Start 09/24/16 at 21:00 Dextrose (D50w Syringe) 50 ml Q15M PRN IV DECREASED GLUCOSE; Start 09/24/16 at 21:00 Glucagon (Glucagen) 1 mg Q15M PRN IM DECREASED GLUCOSE; Start 09/24/16 at 21:00 Glucose 15 gm 15 gm Q15M PRN BUCCAL DECREASED GLUCOSE; Start 09/24/16 at 21:00 Acetaminophen (Ofirmev 1000mg/ 100ml Iv) 100 ml @ 400 mls/hr Q6H PRN IVPB FEVER Last administered on 10/07/16 17:14; Admin Dose 400 MLS/HR; Start at 22:00 Vancomycin HCl (Vancomycin Oral Syringe) 250 mg Q6 PO Last administered on 17:15; Admin Dose 250 MG; Start 09/26/16 at 18:00; Status Future Hold Lactobacillus Acidoph/Bulgaricus (Floranex) 1 tab TID PO Last administered on 13:22; Admin Dose 1 TAB; Start 09/26/16 at 21:00; Status Future Hold Atorvastatin Calcium (Lipitor) 20 mg QHS GTB Last administered on 10/05/16 21: 42; Admin Dose 20 MG; Start 09/28/16 at 21:00; Status Future Hold Finasteride (Proscar) 5 mg DAILY GTB Last administered on 10/06/16 09:12; Admin Dose 5 MG; Start 09/29/16 at 09:00; Status Future Hold Multivitamins Therapeutic (Theragran) 1 tab DAILY GTB Last administered on 09:12; Admin Dose 1 TAB; Start 09/29/16 at 09:00; Status Future Hold Zinc Sulfate (Zinc Sulfate) 220 mg DAILY NGT Last administered on 10/06/16 09: 13; Admin Dose 220 MG; Start 09/29/16 at 09:00; Status Future Hold Ondansetron HCl (Zofran Inj) 4 mg Q6H PRN IV NAUSEA AND/OR VOMITING Last administered on 10/13/16 16:10; Admin Dose 4 MG; Start 09/29/16 at 07:30 Heparin Sodium (Porcine) (Heparin (5000 Units/0.5 ml)) 5,000 unit BID SC Last administered on 10/14/16 09:23; Admin Dose 5,000 UNIT; Start 09/29/16 at 09:00 Acetaminophen 650 mg 650 mg Q6H PRN GTB PAIN AND OR ELEVATED TEMP Last administered on 10/10/16 20:23; Admin Dose 650 MG; Start 10/02/16 at 08:00 Metronidazole (Flagyl 500 Mg (Pmx)) 100 ml @ 100 mls/hr Q8 IVPB Last administered on 10/14/16 06:01; Admin Dose 100 MLS/HR; Start 10/02/16 at 14:00 Midodrine 10 mg 10 mg TID@,13,17 PO Last administered on 10/06/16 17:15; Admin Dose 10 MG; Start 10/06/16 at 01:00; Status Future Hold Norepinephrine 16 mg/Dextrose 500 ml @ 1.87 mls/hr TITRATE IV Last administered on 10/09/16 14:43; Admin Dose 15 MLS/HR; Start 10/06/16 at 16:30 Linezolid (Zyvox 600mg/D5W (Pmx)) 300 ml @ 300 mls/hr Q12 IVPB Last administered on 10/14/16 09:22; Admin Dose 300 MLS/HR; Start 10/06/16 at 21:00 Levothyroxine Sodium (Synthroid Iv) 12.5 mcg DAILY@06 IV Last administered on 06:00; Admin Dose 12.5 MCG; Start 10/07/16 at 06:00 Metoclopramide HCl (Reglan) 5 mg Q8 IV Last administered on 10/14/16 06:00; Admin Dose 5 MG; Start 10/06/16 at 22:00 Voriconazole 200 mg 200 mg BID PO Last administered on 10/14/16 09:22; Admin Dose 200 MG; Start 10/08/16 at 21:00 Meropenem 100 ml @ 200 mls/hr Q12 IVPB Last administered on 10/14/16 09:23; Admin Dose 200 MLS/HR; Start 10/11/16 at 21:00 Dextrose/Sodium Chloride (D5-1/2ns) 1,000 ml @ 75 mls/hr [id number] IV Last administered on 10/14/16 06:01; Admin Dose 75 MLS/HR; Start 10/11/16 at 14:00 Ryder Wild DO Oct 14, 2016 10:41
--- NOTE | 2016-10-14 12:16 | CONS ---
Date/Time of Note Date/Time of Note DATE: 10/14/16 TIME: 12:13 Assessment/Plan Assessment/Plan Additional Assessment/Plan Chest x-ray was reviewed from today which is again showing left lower lobe infiltrative changes with patchy infiltrates involving the right lung. Ventilator settings; AC of 14, tidal volume 500, PEEP of 5, 30% FiO2. Assessment recommendations; 1. Patient admitted for bilateral pneumonia and sepsis with interval improvement. 2. Advanced dementia. 3. Chronic respiratory failure, ventilator dependent. 4. Anemia. 5. History of hypothyroidism and BPH. Continue current treatment. Patient transferred to the telemetry unit. Overall prognosis remains poor. Consultation Date/Type/Reason Admit Date/Time Sep 24, 2016 at 03:19 Initial Consult Date 09/24/16 Type of Consultation: Pulmonary/critical care Referring Provider: MOISES DINERO MD 24 HR Interval Summary Free Text/Dictation Patient condition remains stable. Remains essentially unresponsive. Has remained hemodynamically stable. General exam; elderly male, on ventilator via tracheostomy currently in no distress. Exam/Review of Systems Vital Signs Vitals Vital Signs Date Time Temp Pulse Resp B/P Pulse Ox O2 Delivery O2 Flow Rate FiO2 10/14/16 09:00 101 24 111/71 100 Mechanical Ventilator 10/14/16 08:10 30 10/14/16 08:00 98.9 Intake and Output 10/13/16 10/13/16 10/14/16 15:00 23:00 07:00 Intake Total 1450 ml 800 ml 625 ml Output Total 500 ml 475 ml 465 ml Balance 950 ml 325 ml 160 ml Exam HEENT exam is; supple neck, no JVD. No lymphadenopathy. Midline trachea. Tracheostomy in place. Insertion site is clean. Patient has multiple missing teeth. No neck masses. Chest examination; diminished but clear breath sound. S1-S2 audible, no murmurs. Regular rhythm. Abdomen examination; soft, nondistended, G-tube in place. Bowel sounds audible. No organomegaly. Extremity exam is; trace peripheral edema. Patient has severe contractures involving all 4 extremities. HELP DESK ADMINISTRATOR examination; patient remains unresponsive. Results Result Diagram: 10/14/16 0410 10/14/16 041 Results 24 hrs Laboratory Tests Test 10/13/16 15:25 10/14/16 04:10 Free Thyroxine 0.75 L Free Triiodothyronine (T3) pg/mL 2.03 L White Blood Count 8.1 Red Blood Count 3.02 L Hemoglobin 7.4 L Hematocrit 25.4 L Mean Corpuscular Volume 84.1 Mean Corpuscular Hemoglobin 24.5 L Mean Corpuscular Hemoglobin Concent 29.1 L Red Cell Distribution Width 20.1 H Platelet Count 162 Mean Platelet Volume 11.8 H Neutrophils % 71.0 Lymphocytes % 17.3 Monocytes % 10.0 Eosinophils % 1.1 Basophils % 0.1 Nucleated Red Blood Cells % 0.0 Neutrophils # 5.7 Lymphocytes # 1.4 Monocytes # 0.8 Eosinophils # 0.1 Basophils # 0.0 Nucleated Red Blood Cells # 0.0 Sodium Level 130 L Potassium Level 3.9 Chloride Level 104 Carbon Dioxide Level 23 Anion Gap 7 #L Blood Urea Nitrogen 23 H Creatinine 0.57 L Glucose Level 73 Lactic Acid Level 4.1 *H Calcium Level 6.8 L Phosphorus Level 3.1 Magnesium Level 1.8 Medications Medications Current Medications Acetaminophen (Tylenol Supp) 650 mg Q4H PRN [place] PAIN LEVEL 1-3 OR FEVER; Start 09/24/16 at 03:00 Eye Lubricant (Artificial Tears Oph) 1 drop TID BOTH EYES Last administered on 10/14/16 09:25; Admin Dose 1 DROP; Start 09/24/16 at 09:00 Sodium Hypochlorite (Dakin'S (1/4 Strength)) 1 applic BID IRR Last administered on 10/14/16 09:24; Admin Dose 1 APPLIC; Start 09/24/16 at 21:00 Pantoprazole (Protonix Iv) 40 mg BID@06,18 IV Last administered on 10/14/16 06 :00; Admin Dose 40 MG; Start 09/24/16 at 18:00 Collagenase (Santyl) 1 applic DAILY TOP Last administered on 10/14/16 09:25; Admin Dose 1 APPLIC; Start 09/24/16 at 20:30 Miscellaneous Information 1 ea NOTE XX ; Start 09/24/16 at 21:00 Glucose (Glutose) 15 gm Q15M PRN PO DECREASED GLUCOSE; Start 09/24/16 at 21:00 Glucose (Glutose) 22.5 gm Q15M PRN PO DECREASED GLUCOSE; Start 09/24/16 at 21: 00 Dextrose (D50w Syringe) 25 ml Q15M PRN IV DECREASED GLUCOSE; Start 09/24/16 at 21:00 Dextrose (D50w Syringe) 50 ml Q15M PRN IV DECREASED GLUCOSE; Start 09/24/16 at 21:00 Glucagon (Glucagen) 1 mg Q15M PRN IM DECREASED GLUCOSE; Start 09/24/16 at 21:00 Glucose 15 gm 15 gm Q15M PRN BUCCAL DECREASED GLUCOSE; Start 09/24/16 at 21:00 Acetaminophen (Ofirmev 1000mg/ 100ml Iv) 100 ml @ 400 mls/hr Q6H PRN IVPB FEVER Last administered on 10/07/16 17:14; Admin Dose 400 MLS/HR; Start at 22:00 Vancomycin HCl (Vancomycin Oral Syringe) 250 mg Q6 PO Last administered on 17:15; Admin Dose 250 MG; Start 09/26/16 at 18:00; Status Future Hold Lactobacillus Acidoph/Bulgaricus (Floranex) 1 tab TID PO Last administered on 13:22; Admin Dose 1 TAB; Start 09/26/16 at 21:00; Status Future Hold Atorvastatin Calcium (Lipitor) 20 mg QHS GTB Last administered on 10/05/16 21: 42; Admin Dose 20 MG; Start 09/28/16 at 21:00; Status Future Hold Finasteride (Proscar) 5 mg DAILY GTB Last administered on 10/06/16 09:12; Admin Dose 5 MG; Start 09/29/16 at 09:00; Status Future Hold Multivitamins Therapeutic (Theragran) 1 tab DAILY GTB Last administered on 09:12; Admin Dose 1 TAB; Start 09/29/16 at 09:00; Status Future Hold Zinc Sulfate (Zinc Sulfate) 220 mg DAILY NGT Last administered on 10/06/16 09: 13; Admin Dose 220 MG; Start 09/29/16 at 09:00; Status Future Hold Ondansetron HCl (Zofran Inj) 4 mg Q6H PRN IV NAUSEA AND/OR VOMITING Last administered on 10/13/16 16:10; Admin Dose 4 MG; Start 09/29/16 at 07:30 Heparin Sodium (Porcine) (Heparin (5000 Units/0.5 ml)) 5,000 unit BID SC Last administered on 10/14/16 09:23; Admin Dose 5,000 UNIT; Start 09/29/16 at 09:00 Acetaminophen 650 mg 650 mg Q6H PRN GTB PAIN AND OR ELEVATED TEMP Last administered on 10/10/16 20:23; Admin Dose 650 MG; Start 10/02/16 at 08:00 Metronidazole (Flagyl 500 Mg (Pmx)) 100 ml @ 100 mls/hr Q8 IVPB Last administered on 10/14/16 06:01; Admin Dose 100 MLS/HR; Start 10/02/16 at 14:00 Midodrine 10 mg 10 mg TID@,,17 PO Last administered on 10/06/16 17:15; Admin Dose 10 MG; Start 10/06/16 at 01:00; Status Future Hold Norepinephrine 16 mg/Dextrose 500 ml @ 1.87 mls/hr TITRATE IV Last administered on 10/09/16 14:43; Admin Dose 15 MLS/HR; Start 10/06/16 at 16:30 Linezolid (Zyvox 600mg/D5W (Pmx)) 300 ml @ 300 mls/hr Q12 IVPB Last administered on 10/14/16 09:22; Admin Dose 300 MLS/HR; Start 10/06/16 at 21:00 Levothyroxine Sodium (Synthroid Iv) 12.5 mcg DAILY@06 IV Last administered on 06:00; Admin Dose 12.5 MCG; Start 10/07/16 at 06:00 Metoclopramide HCl (Reglan) 5 mg Q8 IV Last administered on 10/14/16 06:00; Admin Dose 5 MG; Start 10/06/16 at 22:00 Voriconazole 200 mg 200 mg BID PO Last administered on 10/14/16 09:22; Admin Dose 200 MG; Start 10/08/16 at 21:00 Meropenem 100 ml @ 200 mls/hr Q12 IVPB Last administered on 10/14/16 09:23; Admin Dose 200 MLS/HR; Start 10/11/16 at 21:00 Dextrose/Sodium Chloride (D5-1/2ns) 1,000 ml @ 75 mls/hr [id number] IV Last administered on 10/14/16 06:01; Admin Dose 75 MLS/HR; Start 10/11/16 at 14:00 MAIN SALTER Oct 14, 2016 12:16
--- NOTE | 2016-10-14 13:10 | PN ---
DATE: 10/14/2016 INFECTIOUS DISEASE PROGRESS NOTE SUBJECTIVE: No acute changes. The patient is lying comfortably in bed. No fevers. He is not tole rating tube feeding very well and had been on and off on hold. His temperature was 98.9, pulse 101, respirations 24, blood pressure 111/74, saturation 100% on 30 FIO2. WBC 8.1, H and H 7.4 and 25.4, platelets 162. Neutrophils 71, BUN 23, creatinine 0.57, lactic acid 4.1. MICROBIOLOGY: No new results. DIAGNOSTICS: Chest x-ray from yesterday revealed compressive changes and bibasilar atelectasis. INDWELLINGS: Trach, PEG, Cee, left subclavian triple lumen catheter. ANTIMICROBIALS: The patient is on: 1. Zyvox. 2. Merrem. 3. Voriconazole. 4. Voriconazole. 5. Flagyl. PHYSICAL EXAMINATION: GENERAL: This is a fragile, chronically ill-appearing, elderly man who is in no distress. HEENT: Head atraumatic, normocephalic. Sclerae anicteric. Buccal mucosa dry. NECK: Supple. Tracheostomy present. CHEST: Rise symmetrical. Breath sounds diminished to bases. HEART: S1, S2. ABDOMEN: Soft, distended. Bowel sounds hypoactive. EXTREMITIES: Bilateral trace edema. SKIN: With multiple infected wounds. ASSESSMENT: 1. Severe sepsis with shock, off pressors. 2. Acute renal failure, resolved. 3. Healthcare-associated pneumonia. 4. Teresita glabrata urinary tract infection. 5. Ileus. 6. Multiple decubitus with acetabular osteomyelitis. 7. History of severe pseudomembranous colitis. 8. Status post Escherichia coli and Bacteroides fragilis bacteremia on admission. PLAN: The patient remains hemodynamically stable, gastroenterology on case. We are going to change to colistin to cover multi-drug resistant organisms that he grew in his wound. Monitor his renal f unction closely. Continue other antibiotics, follow recommendations of consultants. Dictated By: CHRISTOPHER MCDONOUGH CELLAR PACKER for EBEN SYMTH/ELIZABETH Conf#: [id number] DID#: [id number]
[2016-10-14] MEDS: COLISTIMETHATE 75 MG in SOD CHLORIDE 0.9% 100 ML IVPB SCH ×2 (14:29→22:54)
--- NOTE | 2016-10-14 14:49 | PN ---
Date/Time of Note Date/Time of Note DATE: 10/14/16 TIME: 14:42 Assessment/Plan VTE Prophylaxis VTE Prophylaxis Intervention: heparin Lines/Catheters IV C[facility]ter Type (from [facility] Central Line Central line still needed: Yes Urinary Cath still in place: Yes Reason Cath still needed: other (indicate) (monitor I&O) Assessment/Plan Chief Complaint/Hosp Course assessment and plan 1. Sepsis secondary to infected sacral decubitus ulcers with muscle organisms including Klebsiella pneumonia, Acinetobacter baumannii, VRE, staph aureus. ID following. Continue antibiotics. Patient is status post IV pressors. Continue to monitor 2. Sacral decubitus ulcer with infection. Continue with wound care. Continue with analgesics as needed 3. Acute renal insufficiency. Stable at present. Avoid nephrotoxic medications. 4. Chronic respiratory failure. Agricultural Equipment Operator on the case. Continue bronchodilators and pulmonary hygiene 5. 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 On antibiotics. Continuing wound care 6. Encephalopathy (chronic). Continue to turn every 2 hours as needed. Continue with aspiration precautions 7. Hypothyroidism. Continue on Synthroid 8. Dysphagia. Continue aspiration precautions. We'll graduate PEG tube feedings as tolerated 9. Anemia of chronic disease. H&H remained stable. We'll monitor 10. Leukocytosis with thrombocytosis. Oncologist/business functional analyst following. Continued recommendations 11. Ileus. Was used to reported resolve. Patient still with some abdominal firmness and distention. We'll follow-up on abdominal radiograph DVT prophylaxis: Heparin Disposition and plan: Palliative care physician following. Patient is DNR. Transfer to telemetry. Discharge when medically stable and cleared by consultants Discussed plan of care with Dr. Mullins Problems: Subjective 24 Hr Interval Summary Free Text/Dictation No apparent distress. No purposeful response Exam/Review of Systems Vital Signs Vitals Vital Signs Date Time Temp Pulse Resp B/P Pulse Ox O2 Delivery O2 Flow Rate FiO2 10/14/16 13:44 98 17 100 30 10/14/16 12:00 99.0 99/64 Mechanical Ventilator Intake and Output 10/13/16 10/13/16 10/14/16 14:59 22:59 06:59 Intake Total 1500 ml 775 ml 650 ml Output Total 500 ml 460 ml 530 ml Balance 1000 ml 315 ml 120 ml Exam General: No apparent distress. No purposeful response Eyes: Equal round. Neck: Tracheostomy in place Cardiac: Remains regular rate. Noted with heart murmur Pulmonary: [No obvious adventitious lung sounds. Remains on mechanical ventilation GI: PEG tube in place. Is distended and slightly firm on palpation Extremities: Edema noted bilateral lower extremities as well as upper extremities Skin: Is ulcers Neurologic: Alert. No purposeful response Results Result Diagram: 10/14/16 0410 10/14/16 041 Results 24 hrs Laboratory Tests Test 10/13/16 15:25 10/14/16 04:10 Free Thyroxine 0.75 L Free Triiodothyronine (T3) pg/mL 2.03 L White Blood Count 8.1 Red Blood Count 3.02 L Hemoglobin 7.4 L Hematocrit 25.4 L Mean Corpuscular Volume 84.1 Mean Corpuscular Hemoglobin 24.5 L Mean Corpuscular Hemoglobin Concent 29.1 L Red Cell Distribution Width 20.1 H Platelet Count 162 Mean Platelet Volume 11.8 H Neutrophils % 71.0 Lymphocytes % 17.3 Monocytes % 10.0 Eosinophils % 1.1 Basophils % 0.1 Nucleated Red Blood Cells % 0.0 Neutrophils # 5.7 Lymphocytes # 1.4 Monocytes # 0.8 Eosinophils # 0.1 Basophils # 0.0 Nucleated Red Blood Cells # 0.0 Sodium Level 130 L Potassium Level 3.9 Chloride Level 104 Carbon Dioxide Level 23 Anion Gap 7 #L Blood Urea Nitrogen 23 H Creatinine 0.57 L Glucose Level 73 Lactic Acid Level 4.1 *H Calcium Level 6.8 L Phosphorus Level 3.1 Magnesium Level 1.8 Medications Medications Current Medications Acetaminophen (Tylenol Supp) 650 mg Q4H PRN [place] PAIN LEVEL 1-3 OR FEVER; Start 09/24/16 at 03:00 Eye Lubricant (Artificial Tears Oph) 1 drop TID BOTH EYES Last administered on 10/14/16 13:32; Admin Dose 1 DROP; Start 09/24/16 at 09:00 Sodium Hypochlorite (Dakin'S (1/4 Strength)) 1 applic BID IRR Last administered on 10/14/16 09:24; Admin Dose 1 APPLIC; Start 09/24/16 at 21:00 Pantoprazole (Protonix Iv) 40 mg BID@06,18 IV Last administered on 10/14/16 06 :00; Admin Dose 40 MG; Start 09/24/16 at 18:00 Collagenase (Santyl) 1 applic DAILY TOP Last administered on 10/14/16 09:25; Admin Dose 1 APPLIC; Start 09/24/16 at 20:30 Miscellaneous Information 1 ea NOTE XX ; Start 09/24/16 at 21:00 Glucose (Glutose) 15 gm Q15M PRN PO DECREASED GLUCOSE; Start 09/24/16 at 21:00 Glucose (Glutose) 22.5 gm Q15M PRN PO DECREASED GLUCOSE; Start 09/24/16 at 21: 00 Dextrose (D50w Syringe) 25 ml Q15M PRN IV DECREASED GLUCOSE; Start 09/24/16 at 21:00 Dextrose (D50w Syringe) 50 ml Q15M PRN IV DECREASED GLUCOSE; Start 09/24/16 at 21:00 Glucagon (Glucagen) 1 mg Q15M PRN IM DECREASED GLUCOSE; Start 09/24/16 at 21:00 Glucose 15 gm 15 gm Q15M PRN BUCCAL DECREASED GLUCOSE; Start 09/24/16 at 21:00 Acetaminophen (Ofirmev 1000mg/ 100ml Iv) 100 ml @ 400 mls/hr Q6H PRN IVPB FEVER Last administered on 10/07/16 17:14; Admin Dose 400 MLS/HR; Start at 22:00 Vancomycin HCl (Vancomycin Oral Syringe) 250 mg Q6 PO Last administered on 17:15; Admin Dose 250 MG; Start 09/26/16 at 18:00; Status Future Hold Lactobacillus Acidoph/Bulgaricus (Floranex) 1 tab TID PO Last administered on 13:22; Admin Dose 1 TAB; Start 09/26/16 at 21:00; Status Future Hold Atorvastatin Calcium (Lipitor) 20 mg QHS GTB Last administered on 10/05/16 21: 42; Admin Dose 20 MG; Start 09/28/16 at 21:00; Status Future Hold Finasteride (Proscar) 5 mg DAILY GTB Last administered on 10/06/16 09:12; Admin Dose 5 MG; Start 09/29/16 at 09:00; Status Future Hold Multivitamins Therapeutic (Theragran) 1 tab DAILY GTB Last administered on 09:12; Admin Dose 1 TAB; Start 09/29/16 at 09:00; Status Future Hold Zinc Sulfate (Zinc Sulfate) 220 mg DAILY NGT Last administered on 10/06/16 09: 13; Admin Dose 220 MG; Start 09/29/16 at 09:00; Status Future Hold Ondansetron HCl (Zofran Inj) 4 mg Q6H PRN IV NAUSEA AND/OR VOMITING Last administered on 10/13/16 16:10; Admin Dose 4 MG; Start 09/29/16 at 07:30 Heparin Sodium (Porcine) (Heparin (5000 Units/0.5 ml)) 5,000 unit BID SC Last administered on 10/14/16 09:23; Admin Dose 5,000 UNIT; Start 09/29/16 at 09:00 Acetaminophen 650 mg 650 mg Q6H PRN GTB PAIN AND OR ELEVATED TEMP Last administered on 10/10/16 20:23; Admin Dose 650 MG; Start 10/02/16 at 08:00 Metronidazole (Flagyl 500 Mg (Pmx)) 100 ml @ 100 mls/hr Q8 IVPB Last administered on 10/14/16 14:29; Admin Dose 100 MLS/HR; Start 10/02/16 at 14:00 Midodrine 10 mg 10 mg TID@,,17 PO Last administered on 10/06/16 17:15; Admin Dose 10 MG; Start 10/06/16 at 01:00; Status Future Hold Linezolid (Zyvox 600mg/D5W (Pmx)) 300 ml @ 300 mls/hr Q12 IVPB Last administered on 10/14/16 09:22; Admin Dose 300 MLS/HR; Start 10/06/16 at 21:00 Levothyroxine Sodium (Synthroid Iv) 12.5 mcg DAILY@06 IV Last administered on 06:00; Admin Dose 12.5 MCG; Start 10/07/16 at 06:00 Metoclopramide HCl (Reglan) 5 mg Q8 IV Last administered on 10/14/16 14:29; Admin Dose 5 MG; Start 10/06/16 at 22:00 Voriconazole 200 mg 200 mg BID PO Last administered on 10/14/16 09:22; Admin Dose 200 MG; Start 10/08/16 at 21:00 Dextrose/Sodium Chloride 1,000 ml @ 75 mls/hr [id number] IV Last administered on 10/14/16 06:01; Admin Dose 75 MLS/HR; Start 10/11/16 at 14:00 Colistimethate Sodium/Sodium Chloride (Coly-Mycin/NS) 100 ml @ 200 mls/hr Q12 IVPB Last administered on 10/14/16 14:29; Admin Dose 200 MLS/HR; Start at 13:30 TAMMIE RIBERA Oct 14, 2016 14:48
--- NOTE | 2016-10-14 15:42 | RADRPT ---
PROCEDURE: XR Abdomen. CLINICAL INDICATION: Abdomen pain. TECHNIQUE: AP supine abdomen x-ray. COMPARISON: 10/10/2016. FINDINGS: There is a gastrostomy tube overlying the stomach. The bowel gas pattern is normal with no evidence of obstruction. The lower pelvis is not included o n the image. There are no abnormal calcifications overlying the urinary tracts. There are mild degenerative changes of the spine. The hips are not included on the image. IMPRESSION: 1. Gastrostomy tube overlying the stomach. 2. No evidence of bowel obstruction. RPTAT: QQ .Ho Medeiros MD, MD Date Time Electronically viewed and signed by .Ho Medeiros MD, on 10/14/2016 15:42 .R/
--- NOTE | 2016-10-14 16:42 | CONS ---
Date/Time of Note Date/Time of Note DATE: 10/14/16 TIME: 16:41 Assessment/Plan Assessment/Plan Chief Complaint/Hosp Course ANEMIA - NEAR- MICROCYTIC WITH INCREASED RDW DROP H/H DURING HOSPITALIZATION + ACD TRANSFUSE PRBC TO KEEP HB MORE THAN 8 TRANSFUSE NEEDED GI F-UP Stool OB, negative Monitor H&H every 8 hours, transfuse 2 units for hemoglobin less than 8 LEUKOCYTOSIS- REACTIVE CONT ATB FOR SEPSIS THROMBOCYTOSIS REACTIVE SHOULD IMPROVE WITH RESOLUTION OF SEPSIS Severe sepsis with septic shock 2/2 Decub ulcers and/or UTI and/or PNA: stable, off pressor support Severe hypernatremic dehydration Acute renal failure 2/2 ATN from dehydration UTI Multifocal pneumonia Encephalopathy ?acute versus acute on chronic (baseline unknown) Hypokalemia Problems: Consultation Date/Type/Reason Admit Date/Time Sep 24, 2016 at 03:19 Initial Consult Date 09/24/16 Type of Consultation: HEMEON Referring Provider: MOISES DINERO MD 24 HR Interval Summary Free Text/Dictation ALL NOTED NO NEW EVENTS H/H-DOWN NO ACTIVE BLEEDING Exam/Review of Systems Vital Signs Vitals Vital Signs Date Time Temp Pulse Resp B/P Pulse Ox O2 Delivery O2 Flow Rate FiO2 10/14/16 14:30 103 19 10/14/16 14:00 89/69 10/14/16 13:44 100 30 10/14/16 13:00 Mechanical Ventilator 10/14/16 12:00 99.0 Intake and Output 10/13/16 10/13/16 10/14/16 15:00 23:00 07:00 Intake Total 1450 ml 800 ml 625 ml Output Total 500 ml 475 ml 465 ml Balance 950 ml 325 ml 160 ml Exam General: No apparent distress. No purposeful response Eyes: Equal round. Neck: Tracheostomy in place Cardiac: Remains regular rate. Noted with heart murmur Pulmonary: [No obvious adventitious lung sounds. Remains on mechanical ventilation GI: PEG tube in place. Is distended and slightly firm on palpation Extremities: Edema noted bilateral lower extremities as well as upper extremities Skin: Is ulcers Neurologic: Alert. No purposeful response Results Result Diagram: 10/14/16 0410 10/14/16 0410 Results 24 hrs Laboratory Tests Test 10/14/16 04:10 White Blood Count 8.1 Red Blood Count 3.02 L Hemoglobin 7.4 L Hematocrit 25.4 L Mean Corpuscular Volume 84.1 Mean Corpuscular Hemoglobin 24.5 L Mean Corpuscular Hemoglobin Concent 29.1 L Red Cell Distribution Width 20.1 H Platelet Count 162 Mean Platelet Volume 11.8 H Neutrophils % 71.0 Lymphocytes % 17.3 Monocytes % 10.0 Eosinophils % 1.1 Basophils % 0.1 Nucleated Red Blood Cells % 0.0 Neutrophils # 5.7 Lymphocytes # 1.4 Monocytes # 0.8 Eosinophils # 0.1 Basophils # 0.0 Nucleated Red Blood Cells # 0.0 Sodium Level 130 L Potassium Level 3.9 Chloride Level 104 Carbon Dioxide Level 23 Anion Gap 7 #L Blood Urea Nitrogen 23 H Creatinine 0.57 L Glucose Level 73 Lactic Acid Level 4.1 *H Calcium Level 6.8 L Phosphorus Level 3.1 Magnesium Level 1.8 Medications Medications Current Medications Acetaminophen (Tylenol Supp) 650 mg Q4H PRN [place] PAIN LEVEL 1-3 OR FEVER; Start 09/24/16 at 03:00 Eye Lubricant (Artificial Tears Oph) 1 drop TID BOTH EYES Last administered on 10/14/16 13:32; Admin Dose 1 DROP; Start 09/24/16 at 09:00 Sodium Hypochlorite (Dakin'S (1/4 Strength)) 1 applic BID IRR Last administered on 10/14/16 09:24; Admin Dose 1 APPLIC; Start 09/24/16 at 21:00 Pantoprazole (Protonix Iv) 40 mg BID@06,18 IV Last administered on 10/14/16 06 :00; Admin Dose 40 MG; Start 09/24/16 at 18:00 Collagenase (Santyl) 1 applic DAILY TOP Last administered on 10/14/16 09:25; Admin Dose 1 APPLIC; Start 09/24/16 at 20:30 Miscellaneous Information 1 ea NOTE XX ; Start 09/24/16 at 21:00 Glucose (Glutose) 15 gm Q15M PRN PO DECREASED GLUCOSE; Start 09/24/16 at 21:00 Glucose (Glutose) 22.5 gm Q15M PRN PO DECREASED GLUCOSE; Start 09/24/16 at 21: 00 Dextrose (D50w Syringe) 25 ml Q15M PRN IV DECREASED GLUCOSE; Start 09/24/16 at 21:00 Dextrose (D50w Syringe) 50 ml Q15M PRN IV DECREASED GLUCOSE; Start 09/24/16 at 21:00 Glucagon (Glucagen) 1 mg Q15M PRN IM DECREASED GLUCOSE; Start 09/24/16 at 21:00 Glucose 15 gm 15 gm Q15M PRN BUCCAL DECREASED GLUCOSE; Start 09/24/16 at 21:00 Acetaminophen (Ofirmev 1000mg/ 100ml Iv) 100 ml @ 400 mls/hr Q6H PRN IVPB FEVER Last administered on 10/07/16 17:14; Admin Dose 400 MLS/HR; Start at 22:00 Vancomycin HCl (Vancomycin Oral Syringe) 250 mg Q6 PO Last administered on 17:15; Admin Dose 250 MG; Start 09/26/16 at 18:00; Status Future Hold Lactobacillus Acidoph/Bulgaricus (Floranex) 1 tab TID PO Last administered on 13:22; Admin Dose 1 TAB; Start 09/26/16 at 21:00; Status Future Hold Atorvastatin Calcium (Lipitor) 20 mg QHS GTB Last administered on 10/05/16 21: 42; Admin Dose 20 MG; Start 09/28/16 at 21:00; Status Future Hold Finasteride (Proscar) 5 mg DAILY GTB Last administered on 10/06/16 09:12; Admin Dose 5 MG; Start 09/29/16 at 09:00; Status Future Hold Multivitamins Therapeutic (Theragran) 1 tab DAILY GTB Last administered on 09:12; Admin Dose 1 TAB; Start 09/29/16 at 09:00; Status Future Hold Zinc Sulfate (Zinc Sulfate) 220 mg DAILY NGT Last administered on 10/06/16 09: 13; Admin Dose 220 MG; Start 09/29/16 at 09:00; Status Future Hold Ondansetron HCl (Zofran Inj) 4 mg Q6H PRN IV NAUSEA AND/OR VOMITING Last administered on 10/13/16 16:10; Admin Dose 4 MG; Start 09/29/16 at 07:30 Heparin Sodium (Porcine) (Heparin (5000 Units/0.5 ml)) 5,000 unit BID SC Last administered on 10/14/16 09:23; Admin Dose 5,000 UNIT; Start 09/29/16 at 09:00 Acetaminophen 650 mg 650 mg Q6H PRN GTB PAIN AND OR ELEVATED TEMP Last administered on 10/10/16 20:23; Admin Dose 650 MG; Start 10/02/16 at 08:00 Metronidazole (Flagyl 500 Mg (Pmx)) 100 ml @ 100 mls/hr Q8 IVPB Last administered on 10/14/16 14:29; Admin Dose 100 MLS/HR; Start 10/02/16 at 14:00 Midodrine 10 mg 10 mg TID@,,17 PO Last administered on 10/06/16 17:15; Admin Dose 10 MG; Start 10/06/16 at 01:00; Status Future Hold Linezolid (Zyvox 600mg/D5W (Pmx)) 300 ml @ 300 mls/hr Q12 IVPB Last administered on 10/14/16 09:22; Admin Dose 300 MLS/HR; Start 10/06/16 at 21:00 Levothyroxine Sodium (Synthroid Iv) 12.5 mcg DAILY@06 IV Last administered on 06:00; Admin Dose 12.5 MCG; Start 10/07/16 at 06:00 Metoclopramide HCl (Reglan) 5 mg Q8 IV Last administered on 10/14/16 14:29; Admin Dose 5 MG; Start 10/06/16 at 22:00 Voriconazole 200 mg 200 mg BID PO Last administered on 10/14/16 09:22; Admin Dose 200 MG; Start 10/08/16 at 21:00 Dextrose/Sodium Chloride 1,000 ml @ 75 mls/hr [id number] IV Last administered on 10/14/16 06:01; Admin Dose 75 MLS/HR; Start 10/11/16 at 14:00 Colistimethate Sodium/Sodium Chloride (Coly-Mycin/NS) 100 ml @ 200 mls/hr Q12 IVPB Last administered on 10/14/16 14:29; Admin Dose 200 MLS/HR; Start at 13:30 SCOTT RODRIGUES MD Oct 14, 2016 16:42
--- NOTE | 2016-10-14 18:31 | PN ---
Date/Time of Note Date/Time of Note DATE: 10/14/16 TIME: 18:31 Assessment/Plan Lines/Catheters IV Catheter Type (from [facility]): Central Line Cee in Place (from [facility]): Yes Assessment/Plan Chief Complaint/Hosp Course 1. Shock, septic (uti, pna, wound). Improving. -Judicious fluid management -Supportive measures -Antibiotics 2. Multiple decubitus ulcerations with necrotic tissue and deep tissue injury -Offload -Local care -Vitamin C -Eventual nutritional optimization -Debridement when medically cleared 3. Contracted state with functional quadriplegia -Offloading -Nutritional optimization when possible 4. Anemia -Monitor 5. Ventilator dependent respiratory failure -Ventilator management and pulmonary toilet 6. Renal insufficiency -Judicious fluid management -Avoid nephrotoxic agents 7. Coronary artery disease and history of non-ST elevation [place] -Cardiac optimization 8. Vomiting 2nd Ileus -bowel regimen per GI Thank you Problems: Subjective 24 Hr Interval Summary No fevers or chills. No cough. No seizure. No rash. No blood rectum. No bloating. No seizures. No pyuria. Exam/Review of Systems Vital Signs Vitals Vital Signs Date Time Temp Pulse Resp B/P Pulse Ox O2 Delivery O2 Flow Rate FiO2 10/14/16 17:58 104 22 100 30 10/14/16 14:00 89/69 10/14/16 13:00 Mechanical Ventilator 10/14/16 12:00 99.0 Intake and Output 10/13/16 10/13/16 10/14/16 15:00 23:00 07:00 Intake Total 1450 ml 800 ml 625 ml Output Total 500 ml 475 ml 465 ml Balance 950 ml 325 ml 160 ml Exam Free Text/Dictation Constitutional: No alert, No oriented Psych: No nl mood/affect Head: atraumatic, normocephalic Eyes: nl conjunctiva, No EOMI, No icteric ENMT: mucosa pink and moist, nl external ears & nose Neck: jvd, other (Trach in place), No non-tender, No supple Respiratory: No congested cough, No labored breathing Cardiovascular: No regular rate and rhythm Gastrointestinal: non-tender, other (PEG in place), soft, No rebound or guarding Musculoskeletal: No joint tenderness, No nl extremities to inspection, No nl gait and stance Extremities: No calf tenderness, No cyanosis Neurological: No nl mental status, No nl speech, No nl strength Skin: rash or lesions (Multiple decubitus ulcerations with debris, necrotic tissue, deep tissue injury), No diaphoresis, No nl turgor Lymph: nontender Results Result Diagram: 10/14/16 0410 10/14/16 0410 EVA GUARDADO MD Oct 14, 2016 18:31
--- NOTE | 2016-10-14 23:24 | CONS ---
Date/Time of Note Date/Time of Note DATE: 10/14/16 TIME: 23:21 Assessment/Plan Assessment/Plan Additional Assessment/Plan 1. Acute kidney injury on chronic kidney disease. due to ATN from septic shock 2. septic shock on levophed 3. severe metabolic acidosis on bicarbonate drip 5. History of chronic respiratory failure, status post tracheostomy, on ventilator. 6. History of G-tube. 7. Poor mental status due to the previous cerebrovascular accident. 8. History of dementia. 9. History of hypertension. PLAN: continue IVF D51/2 Ns On IV Colistin, need to monitor renal function and K will follow up Consultation Date/Type/Reason Admit Date/Time Sep 24, 2016 at 03:19 Initial Consult Date 09/24/16 Type of Consultation: NEPHROLOGY Referring Provider: MOISES DINERO MD 24 HR Interval Summary Free Text/Dictation no acute events, BP stable, afebrile, Exam/Review of Systems Vital Signs Vitals Vital Signs Date Time Temp Pulse Resp B/P Pulse Ox O2 Delivery O2 Flow Rate FiO2 10/14/16 23:00 102 27 120/73 100 Mechanical Ventilator 10/14/16 21:42 30 10/14/16 20:00 98.2 Intake and Output 10/13/16 10/13/16 10/14/16 15:00 23:00 07:00 Intake Total 1450 ml 800 ml 645 ml Output Total 500 ml 475 ml 540 ml Balance 950 ml 325 ml 105 ml Exam GENERAL: This is a fragile, chronically ill-appearing, elderly man who is in no distress. HEENT: Head atraumatic, normocephalic. Sclerae anicteric. Buccal mucosa dry. NECK: Supple. Tracheostomy present. CHEST: Rise symmetrical. Breath sounds diminished to bases. HEART: S1, S2. ABDOMEN: Soft, distended. Bowel sounds hypoactive. EXTREMITIES: Bilateral trace edema. SKIN: With multiple infected wounds. Results Result Diagram: 10/14/16 0410 10/14/16 0410 Results 24 hrs Laboratory Tests Test 10/14/16 04:10 White Blood Count 8.1 Red Blood Count 3.02 L Hemoglobin 7.4 L Hematocrit 25.4 L Mean Corpuscular Volume 84.1 Mean Corpuscular Hemoglobin 24.5 L Mean Corpuscular Hemoglobin Concent 29.1 L Red Cell Distribution Width 20.1 H Platelet Count 162 Mean Platelet Volume 11.8 H Neutrophils % 71.0 Lymphocytes % 17.3 Monocytes % 10.0 Eosinophils % 1.1 Basophils % 0.1 Nucleated Red Blood Cells % 0.0 Neutrophils # 5.7 Lymphocytes # 1.4 Monocytes # 0.8 Eosinophils # 0.1 Basophils # 0.0 Nucleated Red Blood Cells # 0.0 Sodium Level 130 L Potassium Level 3.9 Chloride Level 104 Carbon Dioxide Level 23 Anion Gap 7 #L Blood Urea Nitrogen 23 H Creatinine 0.57 L Glucose Level 73 Lactic Acid Level 4.1 *H Calcium Level 6.8 L Phosphorus Level 3.1 Magnesium Level 1.8 Medications Medications Current Medications Acetaminophen (Tylenol Supp) 650 mg Q4H PRN [place] PAIN LEVEL 1-3 OR FEVER; Start 09/24/16 at 03:00 Eye Lubricant (Artificial Tears Oph) 1 drop TID BOTH EYES Last administered on 10/14/16 22:25; Admin Dose 1 DROP; Start 09/24/16 at 09:00 Sodium Hypochlorite (Dakin'S (1/4 Strength)) 1 applic BID IRR Last administered on 10/14/16 21:00; Admin Dose 1 APPLIC; Start 09/24/16 at 21:00 Pantoprazole (Protonix Iv) 40 mg BID@06,18 IV Last administered on 10/14/16 18 :49; Admin Dose 40 MG; Start 09/24/16 at 18:00 Collagenase (Santyl) 1 applic DAILY TOP Last administered on 10/14/16 09:25; Admin Dose 1 APPLIC; Start 09/24/16 at 20:30 Miscellaneous Information 1 ea NOTE XX ; Start 09/24/16 at 21:00 Glucose (Glutose) 15 gm Q15M PRN PO DECREASED GLUCOSE; Start 09/24/16 at 21:00 Glucose (Glutose) 22.5 gm Q15M PRN PO DECREASED GLUCOSE; Start 09/24/16 at 21: 00 Dextrose (D50w Syringe) 25 ml Q15M PRN IV DECREASED GLUCOSE; Start 09/24/16 at 21:00 Dextrose (D50w Syringe) 50 ml Q15M PRN IV DECREASED GLUCOSE; Start 09/24/16 at 21:00 Glucagon (Glucagen) 1 mg Q15M PRN IM DECREASED GLUCOSE; Start 09/24/16 at 21:00 Glucose 15 gm 15 gm Q15M PRN BUCCAL DECREASED GLUCOSE; Start 09/24/16 at 21:00 Acetaminophen (Ofirmev 1000mg/ 100ml Iv) 100 ml @ 400 mls/hr Q6H PRN IVPB FEVER Last administered on 10/07/16 17:14; Admin Dose 400 MLS/HR; Start at 22:00 Vancomycin HCl (Vancomycin Oral Syringe) 250 mg Q6 PO Last administered on 17:15; Admin Dose 250 MG; Start 09/26/16 at 18:00; Status Future Hold Lactobacillus Acidoph/Bulgaricus (Floranex) 1 tab TID PO Last administered on 13:22; Admin Dose 1 TAB; Start 09/26/16 at 21:00; Status Future Hold Atorvastatin Calcium (Lipitor) 20 mg QHS GTB Last administered on 10/05/16 21: 42; Admin Dose 20 MG; Start 09/28/16 at 21:00; Status Future Hold Finasteride (Proscar) 5 mg DAILY GTB Last administered on 10/06/16 09:12; Admin Dose 5 MG; Start 09/29/16 at 09:00; Status Future Hold Multivitamins Therapeutic (Theragran) 1 tab DAILY GTB Last administered on 09:12; Admin Dose 1 TAB; Start 09/29/16 at 09:00; Status Future Hold Zinc Sulfate (Zinc Sulfate) 220 mg DAILY NGT Last administered on 10/06/16 09: 13; Admin Dose 220 MG; Start 09/29/16 at 09:00; Status Future Hold Ondansetron HCl (Zofran Inj) 4 mg Q6H PRN IV NAUSEA AND/OR VOMITING Last administered on 10/13/16 16:10; Admin Dose 4 MG; Start 09/29/16 at 07:30 Heparin Sodium (Porcine) (Heparin (5000 Units/0.5 ml)) 5,000 unit BID SC Last administered on 10/14/16 22:29; Admin Dose 5,000 UNIT; Start 09/29/16 at 09:00 Acetaminophen 650 mg 650 mg Q6H PRN GTB PAIN AND OR ELEVATED TEMP Last administered on 10/10/16 20:23; Admin Dose 650 MG; Start 10/02/16 at 08:00 Metronidazole (Flagyl 500 Mg (Pmx)) 100 ml @ 100 mls/hr Q8 IVPB Last administered on 10/14/16 22:25; Admin Dose 100 MLS/HR; Start 10/02/16 at 14:00 Midodrine 10 mg 10 mg TID@,,17 PO Last administered on 10/06/16 17:15; Admin Dose 10 MG; Start 10/06/16 at 01:00; Status Future Hold Linezolid (Zyvox 600mg/D5W (Pmx)) 300 ml @ 300 mls/hr Q12 IVPB Last administered on 10/14/16 22:26; Admin Dose 300 MLS/HR; Start 10/06/16 at 21:00 Levothyroxine Sodium (Synthroid Iv) 12.5 mcg DAILY@06 IV Last administered on 06:00; Admin Dose 12.5 MCG; Start 10/07/16 at 06:00 Metoclopramide HCl (Reglan) 5 mg Q8 IV Last administered on 10/14/16 22:25; Admin Dose 5 MG; Start 10/06/16 at 22:00 Voriconazole 200 mg 200 mg BID PO Last administered on 10/14/16 22:26; Admin Dose 200 MG; Start 10/08/16 at 21:00 Dextrose/Sodium Chloride 1,000 ml @ 75 mls/hr [id number] IV Last administered on 10/14/16 22:36; Admin Dose 75 MLS/HR; Start 10/11/16 at 14:00 Colistimethate Sodium/Sodium Chloride (Coly-Mycin/NS) 100 ml @ 200 mls/hr Q12 IVPB Last administered on 10/14/16 22:54; Admin Dose 200 MLS/HR; Start at 13:30 MAGGIE DINERO MD Oct 14, 2016 23:24
[2016-10-15] VITALS (33 sets, daily range): BP systolic 83–118; BP diastolic 49–79; PULSE 96–121; RESP 6–30
[2016-10-15] MEDS: IPRATROPIUM (HFA) 12.9 GM INHALER INH SCH ×4 (01:42→20:05)
[2016-10-15] MEDS: ALBUTEROL HFA 8 GM INHALER INH SCH ×4 (01:43→20:05)
[2016-10-15 04:38] LABS: ADD SCAN DIFF NO
[2016-10-15 04:43] LABS: BASOPHILS % 0.5 % (0.0-2.0); EOSINOPHILS # 0.1 10^3/ul (0.0-0.5); EOSINOPHILS % 1.3 % (0.0-7.0); HEMATOCRIT 29.8 % (42.0-52.0); HEMOGLOBIN 9.2 g/dl (14.0-18.0); LYMPHOCYTES # 1.2 10^3/ul (0.8-2.9); LYMPHOCYTES % 15.8 % (15.0-51.0); MEAN CORPUSCULAR HEMOGLOBIN 25.7 pg (29.0-33.0); MEAN CORPUSCULAR HGB CONC 30.9 g/dl (32.0-37.0); MEAN CORPUSCULAR VOLUME 83.2 fl (82.0-101.0); MONOCYTE # 0.8 10^3/ul (0.3-0.9); MONOCYTES % 10.4 % (0.0-11.0); NEUTROPHIL # 5.5 10^3/ul (1.6-7.5); NEUTROPHILS % 71.2 % (39.0-77.0); PLATELET COUNT 171 10^3/UL (140-415); RED BLOOD COUNT 3.58 10^6/ul (4.70-6.10); RED CELL DISTRIBUTION WIDTH 19.1 % (11.5-14.5); WHITE BLOOD COUNT 7.8 10^3/ul (4.8-10.8)
[2016-10-15 05:08] LABS: CREATININE 0.52 mg/dl (0.61-1.24); POTASSIUM 3.7 mmol/L (3.5-5.1)
[2016-10-15] MEDS: LEVOTHYROXINE 100 MCG VIAL IV SCH (05:32)
[2016-10-15] MEDS: METOCLOPRAMIDE 10 MG INJ IV SCH ×3 (05:32→23:06)
[2016-10-15] MEDS: metroNIDAZOLE 500 MG/NS (PMX) 100 ML IVPB SCH ×3 (05:32→23:06)
[2016-10-15] MEDS: PANTOPRAZOLE 40 MG INJ IV SCH ×2 (05:32→17:15)
--- NOTE | 2016-10-15 07:11 | PN ---
Date/Time of Note Date/Time of Note DATE: 10/15/16 TIME: 07:09 Assessment/Plan VTE Prophylaxis VTE Prophylaxis Intervention: SCD's Lines/Catheters IV Catheter Type (from Nrs): Central Line Central line still needed: Yes Urinary Cath still in place: Yes Reason Cath still needed: urinary retention Assessment/Plan Chief Complaint/Hosp Course The patient with no cahgne Problems: Assessment/Plan Severe septic shock Preserved ejection fraction Moderate aortic stenosis Respiratory failure/Tracheostomy Coronary artery disease Anemia Acute kidney injury >resolved -Patient off IV pressors -antibiotics as per infectious disease -withhold any antihypertensives at the current time given recent sepsis. Subjective 24 Hr Interval Summary Free Text/Dictation The patient with no change, +trach Exam/Review of Systems Vital Signs Vitals Vital Signs Date Time Temp Pulse Resp B/P Pulse Ox O2 Delivery O2 Flow Rate FiO2 10/15/16 07:00 102 7 97/62 100 Mechanical Ventilator 10/15/16 05:39 30 10/15/16 04:00 98.0 Intake and Output 10/14/16 10/14/16 10/15/16 15:00 23:00 07:00 Intake Total 1380 ml 1820 ml 1110 ml Output Total 525 ml 570 ml 605 ml Balance 855 ml 1250 ml 505 ml Exam Constitutional: non-verbal, oriented Psych: other Eyes: nl sclera Respiratory: other Results Result Diagram: 10/15/16 0400 10/15/16 0400 Results 24 hrs Laboratory Tests Test 10/15/16 04:00 White Blood Count 7.8 Red Blood Count 3.58 L Hemoglobin 9.2 #L Hematocrit 29.8 L Mean Corpuscular Volume 83.2 Mean Corpuscular Hemoglobin 25.7 L Mean Corpuscular Hemoglobin Concent 30.9 L Red Cell Distribution Width 19.1 H Platelet Count 171 Mean Platelet Volume 11.0 H Neutrophils % 71.2 Lymphocytes % 15.8 Monocytes % 10.4 Eosinophils % 1.3 Basophils % 0.5 Nucleated Red Blood Cells % 0.0 Neutrophils # 5.5 Lymphocytes # 1.2 Monocytes # 0.8 Eosinophils # 0.1 Basophils # 0.0 Nucleated Red Blood Cells # 0.0 Sodium Level 132 L Potassium Level 3.7 Chloride Level 105 Carbon Dioxide Level 23 Anion Gap 8 Blood Urea Nitrogen 18 Creatinine 0.52 L Glucose Level 90 Calcium Level 7.0 L Medications Medications Current Medications Acetaminophen (Tylenol Supp) 650 mg Q4H PRN [place] PAIN LEVEL 1-3 OR FEVER; Start 09/24/16 at 03:00 Eye Lubricant (Artificial Tears Oph) 1 drop TID BOTH EYES Last administered on 10/14/16 22:25; Admin Dose 1 DROP; Start 09/24/16 at 09:00 Sodium Hypochlorite (Dakin'S (1/4 Strength)) 1 applic BID IRR Last administered on 10/14/16 21:00; Admin Dose 1 APPLIC; Start 09/24/16 at 21:00 Pantoprazole (Protonix Iv) 40 mg BID@06,18 IV Last administered on 10/15/16 05 :32; Admin Dose 40 MG; Start 09/24/16 at 18:00 Collagenase (Santyl) 1 applic DAILY TOP Last administered on 10/14/16 09:25; Admin Dose 1 APPLIC; Start 09/24/16 at 20:30 Miscellaneous Information 1 ea NOTE XX ; Start 09/24/16 at 21:00 Glucose (Glutose) 15 gm Q15M PRN PO DECREASED GLUCOSE; Start 09/24/16 at 21:00 Glucose (Glutose) 22.5 gm Q15M PRN PO DECREASED GLUCOSE; Start 09/24/16 at 21: 00 Dextrose (D50w Syringe) 25 ml Q15M PRN IV DECREASED GLUCOSE; Start 09/24/16 at 21:00 Dextrose (D50w Syringe) 50 ml Q15M PRN IV DECREASED GLUCOSE; Start 09/24/16 at 21:00 Glucagon (Glucagen) 1 mg Q15M PRN IM DECREASED GLUCOSE; Start 09/24/16 at 21:00 Glucose 15 gm 15 gm Q15M PRN BUCCAL DECREASED GLUCOSE; Start 09/24/16 at 21:00 Acetaminophen (Ofirmev 1000mg/ 100ml Iv) 100 ml @ 400 mls/hr Q6H PRN IVPB FEVER Last administered on 10/07/16 17:14; Admin Dose 400 MLS/HR; Start at 22:00 Vancomycin HCl (Vancomycin Oral Syringe) 250 mg Q6 PO Last administered on 17:15; Admin Dose 250 MG; Start 09/26/16 at 18:00; Status Future Hold Lactobacillus Acidoph/Bulgaricus (Floranex) 1 tab TID PO Last administered on 13:22; Admin Dose 1 TAB; Start 09/26/16 at 21:00; Status Future Hold Atorvastatin Calcium (Lipitor) 20 mg QHS GTB Last administered on 10/05/16 21: 42; Admin Dose 20 MG; Start 09/28/16 at 21:00; Status Future Hold Finasteride (Proscar) 5 mg DAILY GTB Last administered on 10/06/16 09:12; Admin Dose 5 MG; Start 09/29/16 at 09:00; Status Future Hold Multivitamins Therapeutic (Theragran) 1 tab DAILY GTB Last administered on 09:12; Admin Dose 1 TAB; Start 09/29/16 at 09:00; Status Future Hold Zinc Sulfate (Zinc Sulfate) 220 mg DAILY NGT Last administered on 10/06/16 09: 13; Admin Dose 220 MG; Start 09/29/16 at 09:00; Status Future Hold Ondansetron HCl (Zofran Inj) 4 mg Q6H PRN IV NAUSEA AND/OR VOMITING Last administered on 10/13/16 16:10; Admin Dose 4 MG; Start 09/29/16 at 07:30 Heparin Sodium (Porcine) (Heparin (5000 Units/0.5 ml)) 5,000 unit BID SC Last administered on 10/14/16 22:29; Admin Dose 5,000 UNIT; Start 09/29/16 at 09:00 Acetaminophen 650 mg 650 mg Q6H PRN GTB PAIN AND OR ELEVATED TEMP Last administered on 10/10/16 20:23; Admin Dose 650 MG; Start 10/02/16 at 08:00 Metronidazole (Flagyl 500 Mg (Pmx)) 100 ml @ 100 mls/hr Q8 IVPB Last administered on 10/15/16 05:32; Admin Dose 100 MLS/HR; Start 10/02/16 at 14:00 Midodrine 10 mg 10 mg TID@,,17 PO Last administered on 10/06/16 17:15; Admin Dose 10 MG; Start 10/06/16 at 01:00; Status Future Hold Linezolid (Zyvox 600mg/D5W (Pmx)) 300 ml @ 300 mls/hr Q12 IVPB Last administered on 10/14/16 22:26; Admin Dose 300 MLS/HR; Start 10/06/16 at 21:00 Levothyroxine Sodium (Synthroid Iv) 12.5 mcg DAILY@06 IV Last administered on 05:32; Admin Dose 12.5 MCG; Start 10/07/16 at 06:00 Metoclopramide HCl (Reglan) 5 mg Q8 IV Last administered on 10/15/16 05:32; Admin Dose 5 MG; Start 10/06/16 at 22:00 Voriconazole 200 mg 200 mg BID PO Last administered on 10/14/16 22:26; Admin Dose 200 MG; Start 10/08/16 at 21:00 Dextrose/Sodium Chloride 1,000 ml @ 75 mls/hr [id number] IV Last administered on 10/14/16 22:36; Admin Dose 75 MLS/HR; Start 10/11/16 at 14:00 Colistimethate Sodium/Sodium Chloride (Coly-Mycin/NS) 100 ml @ 200 mls/hr Q12 IVPB Last administered on 10/14/16 22:54; Admin Dose 200 MLS/HR; Start at 13:30 HUGO DIAZ MD Oct 15, 2016 07:11
[2016-10-15] MEDS: ARTIFICIAL TEARS 15 ML OPH BOTH EYES SCH ×3 (09:01→20:57)
[2016-10-15] MEDS: COLLAGENASE 30 GM TUBE TOP SCH (09:01)
[2016-10-15] MEDS: LINEZOLID 600 MG/D5W (PMX) 300 ML IVPB SCH ×2 (09:01→20:56)
[2016-10-15] MEDS: COLISTIMETHATE 75 MG in SOD CHLORIDE 0.9% 100 ML IVPB SCH ×2 (09:01→20:56)
[2016-10-15] MEDS: SODIUM HYPOCHLORITE 0.125% 473 ML BTL IRR SCH ×2 (09:01→20:57)
[2016-10-15] MEDS: HEPARIN 5,000 UNIT/0.5 ML VIAL SC SCH ×2 (09:47→21:06)
[2016-10-15] MEDS: VORICONAZOLE 200 MG TAB PO SCH ×2 (09:47→20:56)
--- NOTE | 2016-10-15 09:50 | CONS ---
Date/Time of Note Date/Time of Note DATE: 10/15/16 TIME: 09:47 Assessment/Plan Assessment/Plan Additional Assessment/Plan Ventilator settings; AC of 14, tidal volume 500, PEEP of 5, 30% FiO2. Assessment recommendations; 1. Patient admitted for pneumonia and sepsis with significant clinical improvement. 2. History of hypothyroidism. 3. History of BPH. 4. Chronic respiratory failure, ventilator dependent. 5. Multi-infarct dementia. Continue current treatment. Patient can be transferred to a rehab center. Consultation Date/Type/Reason Admit Date/Time Sep 24, 2016 at 03:19 Initial Consult Date 09/24/16 Type of Consultation: Pulmonary/critical care Referring Provider: MOISES DINERO MD 24 HR Interval Summary Free Text/Dictation Patient condition remains stable. Remains awake but does not respond to any commands. Has remained hemodynamically stable. General exam; elderly male, on ventilator via tracheostomy, currently in no distress. Exam/Review of Systems Vital Signs Vitals Vital Signs Date Time Temp Pulse Resp B/P Pulse Ox O2 Delivery O2 Flow Rate FiO2 10/15/16 09:00 98 16 95/63 100 Mechanical Ventilator 10/15/16 08:00 99.0 10/15/16 05:39 30 Intake and Output 10/14/16 10/14/16 10/15/16 15:00 23:00 07:00 Intake Total 1380 ml 1820 ml 1110 ml Output Total 525 ml 570 ml 605 ml Balance 855 ml 1250 ml 505 ml Exam HEENT exam; supple neck, tracheostomy in place, insertion site is clean. Pupils are small bilaterally. No neck masses. No lymphadenopathy. Patient has a multiple missing teeth. Chest examination; diminished but clear vessel. S1-S2 audible, no murmurs. Regular rhythm. Abdomen examination; soft, G-tube in place. No organomegaly. Bowel sounds audible. Extremity exam is; trace peripheral edema. Patient does have contractures involving all 4 extremities. CARGO OPERATIONS AGENT examination; patient is awake but does not follow any commands. Results Result Diagram: 10/15/16 0400 10/15/16 0400 Results 24 hrs Laboratory Tests Test 10/15/16 04:00 White Blood Count 7.8 Red Blood Count 3.58 L Hemoglobin 9.2 #L Hematocrit 29.8 L Mean Corpuscular Volume 83.2 Mean Corpuscular Hemoglobin 25.7 L Mean Corpuscular Hemoglobin Concent 30.9 L Red Cell Distribution Width 19.1 H Platelet Count 171 Mean Platelet Volume 11.0 H Neutrophils % 71.2 Lymphocytes % 15.8 Monocytes % 10.4 Eosinophils % 1.3 Basophils % 0.5 Nucleated Red Blood Cells % 0.0 Neutrophils # 5.5 Lymphocytes # 1.2 Monocytes # 0.8 Eosinophils # 0.1 Basophils # 0.0 Nucleated Red Blood Cells # 0.0 Sodium Level 132 L Potassium Level 3.7 Chloride Level 105 Carbon Dioxide Level 23 Anion Gap 8 Blood Urea Nitrogen 18 Creatinine 0.52 L Glucose Level 90 Calcium Level 7.0 L Medications Medications Current Medications Acetaminophen (Tylenol Supp) 650 mg Q4H PRN [place] PAIN LEVEL 1-3 OR FEVER; Start 09/24/16 at 03:00 Eye Lubricant (Artificial Tears Oph) 1 drop TID BOTH EYES Last administered on 10/14/16 22:25; Admin Dose 1 DROP; Start 09/24/16 at 09:00 Sodium Hypochlorite (Dakin'S (1/4 Strength)) 1 applic BID IRR Last administered on 10/14/16 21:00; Admin Dose 1 APPLIC; Start 09/24/16 at 21:00 Pantoprazole (Protonix Iv) 40 mg BID@06,18 IV Last administered on 10/15/16 05 :32; Admin Dose 40 MG; Start 09/24/16 at 18:00 Collagenase (Santyl) 1 applic DAILY TOP Last administered on 10/14/16 09:25; Admin Dose 1 APPLIC; Start 09/24/16 at 20:30 Miscellaneous Information 1 ea NOTE XX ; Start 09/24/16 at 21:00 Glucose (Glutose) 15 gm Q15M PRN PO DECREASED GLUCOSE; Start 09/24/16 at 21:00 Glucose (Glutose) 22.5 gm Q15M PRN PO DECREASED GLUCOSE; Start 09/24/16 at 21: 00 Dextrose (D50w Syringe) 25 ml Q15M PRN IV DECREASED GLUCOSE; Start 09/24/16 at 21:00 Dextrose (D50w Syringe) 50 ml Q15M PRN IV DECREASED GLUCOSE; Start 09/24/16 at 21:00 Glucagon (Glucagen) 1 mg Q15M PRN IM DECREASED GLUCOSE; Start 09/24/16 at 21:00 Glucose 15 gm 15 gm Q15M PRN BUCCAL DECREASED GLUCOSE; Start 09/24/16 at 21:00 Acetaminophen (Ofirmev 1000mg/ 100ml Iv) 100 ml @ 400 mls/hr Q6H PRN IVPB FEVER Last administered on 10/07/16 17:14; Admin Dose 400 MLS/HR; Start at 22:00 Vancomycin HCl (Vancomycin Oral Syringe) 250 mg Q6 PO Last administered on 17:15; Admin Dose 250 MG; Start 09/26/16 at 18:00; Status Future Hold Lactobacillus Acidoph/Bulgaricus (Floranex) 1 tab TID PO Last administered on 13:22; Admin Dose 1 TAB; Start 09/26/16 at 21:00; Status Future Hold Atorvastatin Calcium (Lipitor) 20 mg QHS GTB Last administered on 10/05/16 21: 42; Admin Dose 20 MG; Start 09/28/16 at 21:00; Status Future Hold Finasteride (Proscar) 5 mg DAILY GTB Last administered on 10/06/16 09:12; Admin Dose 5 MG; Start 09/29/16 at 09:00; Status Future Hold Multivitamins Therapeutic (Theragran) 1 tab DAILY GTB Last administered on 09:12; Admin Dose 1 TAB; Start 09/29/16 at 09:00; Status Future Hold Zinc Sulfate (Zinc Sulfate) 220 mg DAILY NGT Last administered on 10/06/16 09: 13; Admin Dose 220 MG; Start 09/29/16 at 09:00; Status Future Hold Ondansetron HCl (Zofran Inj) 4 mg Q6H PRN IV NAUSEA AND/OR VOMITING Last administered on 10/13/16 16:10; Admin Dose 4 MG; Start 09/29/16 at 07:30 Heparin Sodium (Porcine) (Heparin (5000 Units/0.5 ml)) 5,000 unit BID SC Last administered on 10/14/16 22:29; Admin Dose 5,000 UNIT; Start 09/29/16 at 09:00 Acetaminophen 650 mg 650 mg Q6H PRN GTB PAIN AND OR ELEVATED TEMP Last administered on 10/10/16 20:23; Admin Dose 650 MG; Start 10/02/16 at 08:00 Metronidazole (Flagyl 500 Mg (Pmx)) 100 ml @ 100 mls/hr Q8 IVPB Last administered on 10/15/16 05:32; Admin Dose 100 MLS/HR; Start 10/02/16 at 14:00 Midodrine 10 mg 10 mg TID@,,17 PO Last administered on 10/06/16 17:15; Admin Dose 10 MG; Start 10/06/16 at 01:00; Status Future Hold Linezolid (Zyvox 600mg/D5W (Pmx)) 300 ml @ 300 mls/hr Q12 IVPB Last administered on 10/14/16 22:26; Admin Dose 300 MLS/HR; Start 10/06/16 at 21:00 Levothyroxine Sodium (Synthroid Iv) 12.5 mcg DAILY@06 IV Last administered on 05:32; Admin Dose 12.5 MCG; Start 10/07/16 at 06:00 Metoclopramide HCl (Reglan) 5 mg Q8 IV Last administered on 10/15/16 05:32; Admin Dose 5 MG; Start 10/06/16 at 22:00 Voriconazole 200 mg 200 mg BID PO Last administered on 10/14/16 22:26; Admin Dose 200 MG; Start 10/08/16 at 21:00 Dextrose/Sodium Chloride 1,000 ml @ 75 mls/hr [id number] IV Last administered on 10/14/16 22:36; Admin Dose 75 MLS/HR; Start 10/11/16 at 14:00 Colistimethate Sodium/Sodium Chloride (Coly-Mycin/NS) 100 ml @ 200 mls/hr Q12 IVPB Last administered on 10/14/16 22:54; Admin Dose 200 MLS/HR; Start at 13:30 MAIN SALTER Oct 15, 2016 09:50
--- NOTE | 2016-10-15 10:05 | CONS ---
Date/Time of Note Date/Time of Note DATE: 10/15/16 TIME: 10:03 Assessment/Plan Assessment/Plan Additional Assessment/Plan 1. Acute kidney injury on chronic kidney disease. due to ATN from septic shock 2. septic shock on levophed 3. severe metabolic acidosis on bicarbonate drip 5. History of chronic respiratory failure, status post tracheostomy, on ventilator. 6. History of G-tube. 7. Poor mental status due to the previous cerebrovascular accident. 8. History of dementia. 9. History of hypertension. PLAN: continue IVF D51/2 NS, also continue Tube feeding, once pt reach goal rate of tube feeding, next day we will cut down on IVF On IV Colistin, need to monitor renal function and K will follow up Consultation Date/Type/Reason Admit Date/Time Sep 24, 2016 at 03:19 Initial Consult Date 09/24/16 Type of Consultation: NEPHROLOGY Reason for Consultation acute Kidney injury, Hypernatremia Referring Provider: FELIX BLAKE DO 24 HR Interval Summary Free Text/Dictation remained in ICU,BP stable Exam/Review of Systems Vital Signs Vitals Vital Signs Date Time Temp Pulse Resp B/P Pulse Ox O2 Delivery O2 Flow Rate FiO2 10/15/16 09:00 98 16 95/63 100 Mechanical Ventilator 10/15/16 08:00 99.0 10/15/16 05:39 30 Intake and Output 10/14/16 10/14/16 10/15/16 15:00 23:00 07:00 Intake Total 1380 ml 1820 ml 1110 ml Output Total 525 ml 570 ml 605 ml Balance 855 ml 1250 ml 505 ml Exam GENERAL: This is a fragile, chronically ill-appearing, elderly man who is in no distress. HEENT: Head atraumatic, normocephalic. Sclerae anicteric. Buccal mucosa dry. NECK: Supple. Tracheostomy present. CHEST: Rise symmetrical. Breath sounds diminished to bases. HEART: S1, S2. ABDOMEN: Soft, distended. Bowel sounds hypoactive. EXTREMITIES: Bilateral trace edema. SKIN: With multiple infected wounds. Results Result Diagram: 10/15/16 0400 10/15/16 0400 Results 24 hrs Laboratory Tests Test 10/15/16 04:00 White Blood Count 7.8 Red Blood Count 3.58 L Hemoglobin 9.2 #L Hematocrit 29.8 L Mean Corpuscular Volume 83.2 Mean Corpuscular Hemoglobin 25.7 L Mean Corpuscular Hemoglobin Concent 30.9 L Red Cell Distribution Width 19.1 H Platelet Count 171 Mean Platelet Volume 11.0 H Neutrophils % 71.2 Lymphocytes % 15.8 Monocytes % 10.4 Eosinophils % 1.3 Basophils % 0.5 Nucleated Red Blood Cells % 0.0 Neutrophils # 5.5 Lymphocytes # 1.2 Monocytes # 0.8 Eosinophils # 0.1 Basophils # 0.0 Nucleated Red Blood Cells # 0.0 Sodium Level 132 L Potassium Level 3.7 Chloride Level 105 Carbon Dioxide Level 23 Anion Gap 8 Blood Urea Nitrogen 18 Creatinine 0.52 L Glucose Level 90 Calcium Level 7.0 L Medications Medications Current Medications Acetaminophen (Tylenol Supp) 650 mg Q4H PRN [place] PAIN LEVEL 1-3 OR FEVER; Start 09/24/16 at 03:00 Eye Lubricant (Artificial Tears Oph) 1 drop TID BOTH EYES Last administered on 10/14/16 22:25; Admin Dose 1 DROP; Start 09/24/16 at 09:00 Sodium Hypochlorite (Dakin'S (1/4 Strength)) 1 applic BID IRR Last administered on 10/14/16 21:00; Admin Dose 1 APPLIC; Start 09/24/16 at 21:00 Pantoprazole (Protonix Iv) 40 mg BID@06,18 IV Last administered on 10/15/16 05 :32; Admin Dose 40 MG; Start 09/24/16 at 18:00 Collagenase (Santyl) 1 applic DAILY TOP Last administered on 10/14/16 09:25; Admin Dose 1 APPLIC; Start 09/24/16 at 20:30 Miscellaneous Information 1 ea NOTE XX ; Start 09/24/16 at 21:00 Glucose (Glutose) 15 gm Q15M PRN PO DECREASED GLUCOSE; Start 09/24/16 at 21:00 Glucose (Glutose) 22.5 gm Q15M PRN PO DECREASED GLUCOSE; Start 09/24/16 at 21: 00 Dextrose (D50w Syringe) 25 ml Q15M PRN IV DECREASED GLUCOSE; Start 09/24/16 at 21:00 Dextrose (D50w Syringe) 50 ml Q15M PRN IV DECREASED GLUCOSE; Start 09/24/16 at 21:00 Glucagon (Glucagen) 1 mg Q15M PRN IM DECREASED GLUCOSE; Start 09/24/16 at 21:00 Glucose 15 gm 15 gm Q15M PRN BUCCAL DECREASED GLUCOSE; Start 09/24/16 at 21:00 Acetaminophen (Ofirmev 1000mg/ 100ml Iv) 100 ml @ 400 mls/hr Q6H PRN IVPB FEVER Last administered on 10/07/16 17:14; Admin Dose 400 MLS/HR; Start at 22:00 Vancomycin HCl (Vancomycin Oral Syringe) 250 mg Q6 PO Last administered on 17:15; Admin Dose 250 MG; Start 09/26/16 at 18:00; Status Future Hold Lactobacillus Acidoph/Bulgaricus (Floranex) 1 tab TID PO Last administered on 13:22; Admin Dose 1 TAB; Start 09/26/16 at 21:00; Status Future Hold Atorvastatin Calcium (Lipitor) 20 mg QHS GTB Last administered on 10/05/16 21: 42; Admin Dose 20 MG; Start 09/28/16 at 21:00; Status Future Hold Finasteride (Proscar) 5 mg DAILY GTB Last administered on 10/06/16 09:12; Admin Dose 5 MG; Start 09/29/16 at 09:00; Status Future Hold Multivitamins Therapeutic (Theragran) 1 tab DAILY GTB Last administered on 09:12; Admin Dose 1 TAB; Start 09/29/16 at 09:00; Status Future Hold Zinc Sulfate (Zinc Sulfate) 220 mg DAILY NGT Last administered on 10/06/16 09: 13; Admin Dose 220 MG; Start 09/29/16 at 09:00; Status Future Hold Ondansetron HCl (Zofran Inj) 4 mg Q6H PRN IV NAUSEA AND/OR VOMITING Last administered on 10/13/16 16:10; Admin Dose 4 MG; Start 09/29/16 at 07:30 Heparin Sodium (Porcine) (Heparin (5000 Units/0.5 ml)) 5,000 unit BID SC Last administered on 10/14/16 22:29; Admin Dose 5,000 UNIT; Start 09/29/16 at 09:00 Acetaminophen 650 mg 650 mg Q6H PRN GTB PAIN AND OR ELEVATED TEMP Last administered on 10/10/16 20:23; Admin Dose 650 MG; Start 10/02/16 at 08:00 Metronidazole (Flagyl 500 Mg (Pmx)) 100 ml @ 100 mls/hr Q8 IVPB Last administered on 10/15/16 05:32; Admin Dose 100 MLS/HR; Start 10/02/16 at 14:00 Midodrine 10 mg 10 mg TID@09,13,17 PO Last administered on 10/06/16 17:15; Admin Dose 10 MG; Start 10/06/16 at 01:00; Status Future Hold Linezolid (Zyvox 600mg/D5W (Pmx)) 300 ml @ 300 mls/hr Q12 IVPB Last administered on 10/14/16 22:26; Admin Dose 300 MLS/HR; Start 10/06/16 at 21:00 Levothyroxine Sodium (Synthroid Iv) 12.5 mcg DAILY@06 IV Last administered on 05:32; Admin Dose 12.5 MCG; Start 10/07/16 at 06:00 Metoclopramide HCl (Reglan) 5 mg Q8 IV Last administered on 10/15/16 05:32; Admin Dose 5 MG; Start 10/06/16 at 22:00 Voriconazole 200 mg 200 mg BID PO Last administered on 10/14/16 22:26; Admin Dose 200 MG; Start 10/08/16 at 21:00 Dextrose/Sodium Chloride 1,000 ml @ 75 mls/hr [id number] IV Last administered on 10/14/16 22:36; Admin Dose 75 MLS/HR; Start 10/11/16 at 14:00 Colistimethate Sodium/Sodium Chloride (Coly-Mycin/NS) 100 ml @ 200 mls/hr Q12 IVPB Last administered on 10/14/16 22:54; Admin Dose 200 MLS/HR; Start at 13:30 MAGGIE DINERO MD Oct 15, 2016 10:04
[2016-10-15] MEDS: DEXTROSE 5%-0.45% NACL 1,000 ML IV SCH ×2 (11:21→22:49)
--- NOTE | 2016-10-15 11:34 | PN ---
Date/Time of Note Date/Time of Note DATE: 10/15/16 TIME: 11:29 Assessment/Plan VTE Prophylaxis VTE Prophylaxis Intervention: heparin Lines/Catheters IV [facility]ter Type [facility]from [facility]): Central Line Central line still needed: Yes Urinary Cath still in place: Yes Reason Cath still needed: other (indicate) (monitor I&O) Assessment/Plan Chief Complaint/Hosp Course assessment and plan 1. Sepsis secondary to infected sacral decubitus ulcers with multiple organisms including Klebsiella pneumonia, Acinetobacter baumannii, VRE, staph aureus. ID following. Continue antibiotics. remains off pressors at this time 2. Sacral decubitus ulcer with infection. Continue with wound care. Continue with analgesics as needed. on abx 3. Acute renal insufficiency. Stable at present. Avoid nephrotoxic medications.continue with nephrology recs 4. Chronic respiratory failure. Plant Production Worker on the case. Continue bronchodilators and pulmonary hygiene 5. 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 On antibiotics. Continuing wound care. surgeon following 6. Encephalopathy (chronic). Continue to turn every 2 hours as needed. Continue with aspiration precautions 7. Hypothyroidism. Continue on Synthroid 8. Dysphagia. Continue aspiration precautions. We'll graduate PEG tube feedings as tolerated 9. Anemia of chronic disease. H&H remained stable. We'll monitor 10. Leukocytosis with thrombocytosis. Oncologist/rn behavioral health following. Continued recommendations 11. Ileus. resolved. monitor DVT prophylaxis: Heparin Disposition and plan: Palliative care physician following. Patient is DNR. Transfer to telemetry. awaiting bed placement. cont supportive care Discussed plan of care with Dr. Mullins Problems: Subjective 24 Hr Interval Summary Free Text/Dictation remains on trach vent. no obvious distress at this time. Exam/Review of Systems Vital Signs Vitals Vital Signs Date Time Temp Pulse Resp B/P Pulse Ox O2 Delivery O2 Flow Rate FiO2 10/15/16 09:00 98 16 95/63 100 Mechanical Ventilator 10/15/16 08:00 99.0 10/15/16 05:39 30 Intake and Output 10/14/16 10/14/16 10/15/16 15:00 23:00 07:00 Intake Total 1380 ml 1820 ml 1110 ml Output Total 525 ml 570 ml 605 ml Balance 855 ml 1250 ml 505 ml Exam General: No apparent distress. No purposeful response. no distress Eyes: Equal round. Neck: Tracheostomy in place Cardiac: Remains regular rate. Noted with heart murmur Pulmonary: [No obvious adventitious lung sounds still. Remains on mechanical ventilation GI: PEG tube in place. Is distended and slightly firm on palpation (likely anasarca) Extremities: Edema noted bilateral lower extremities as well as upper extremities Skin: decubitus ulcers Neurologic: Alert. No purposeful response Results Result Diagram: 10/15/16 0400 10/15/16 0400 Results 24 hrs Laboratory Tests Test 10/15/16 04:00 White Blood Count 7.8 Red Blood Count 3.58 L Hemoglobin 9.2 #L Hematocrit 29.8 L Mean Corpuscular Volume 83.2 Mean Corpuscular Hemoglobin 25.7 L Mean Corpuscular Hemoglobin Concent 30.9 L Red Cell Distribution Width 19.1 H Platelet Count 171 Mean Platelet Volume 11.0 H Neutrophils % 71.2 Lymphocytes % 15.8 Monocytes % 10.4 Eosinophils % 1.3 Basophils % 0.5 Nucleated Red Blood Cells % 0.0 Neutrophils # 5.5 Lymphocytes # 1.2 Monocytes # 0.8 Eosinophils # 0.1 Basophils # 0.0 Nucleated Red Blood Cells # 0.0 Sodium Level 132 L Potassium Level 3.7 Chloride Level 105 Carbon Dioxide Level 23 Anion Gap 8 Blood Urea Nitrogen 18 Creatinine 0.52 L Glucose Level 90 Calcium Level 7.0 L Medications Medications Current Medications Acetaminophen (Tylenol Supp) 650 mg Q4H PRN [place] PAIN LEVEL 1-3 OR FEVER; Start 09/24/16 at 03:00 Eye Lubricant (Artificial Tears Oph) 1 drop TID BOTH EYES Last administered on 10/15/16 09:01; Admin Dose 1 DROP; Start 09/24/16 at 09:00 Sodium Hypochlorite (Dakin'S (1/4 Strength)) 1 applic BID IRR Last administered on 10/15/16 09:01; Admin Dose 1 APPLIC; Start 09/24/16 at 21:00 Pantoprazole (Protonix Iv) 40 mg BID@06,18 IV Last administered on 10/15/16 05 :32; Admin Dose 40 MG; Start 09/24/16 at 18:00 Collagenase (Santyl) 1 applic DAILY TOP Last administered on 10/15/16 09:01; Admin Dose 1 APPLIC; Start 09/24/16 at 20:30 Miscellaneous Information 1 ea NOTE XX ; Start 09/24/16 at 21:00 Glucose (Glutose) 15 gm Q15M PRN PO DECREASED GLUCOSE; Start 09/24/16 at 21:00 Glucose (Glutose) 22.5 gm Q15M PRN PO DECREASED GLUCOSE; Start 09/24/16 at 21: 00 Dextrose (D50w Syringe) 25 ml Q15M PRN IV DECREASED GLUCOSE; Start 09/24/16 at 21:00 Dextrose (D50w Syringe) 50 ml Q15M PRN IV DECREASED GLUCOSE; Start 09/24/16 at 21:00 Glucagon (Glucagen) 1 mg Q15M PRN IM DECREASED GLUCOSE; Start 09/24/16 at 21:00 Glucose 15 gm 15 gm Q15M PRN BUCCAL DECREASED GLUCOSE; Start 09/24/16 at 21:00 Acetaminophen (Ofirmev 1000mg/ 100ml Iv) 100 ml @ 400 mls/hr Q6H PRN IVPB FEVER Last administered on 10/07/16 17:14; Admin Dose 400 MLS/HR; Start at 22:00 Vancomycin HCl (Vancomycin Oral Syringe) 250 mg Q6 PO Last administered on 17:15; Admin Dose 250 MG; Start 09/26/16 at 18:00; Status Future Hold Lactobacillus Acidoph/Bulgaricus (Floranex) 1 tab TID PO Last administered on 13:22; Admin Dose 1 TAB; Start 09/26/16 at 21:00; Status Future Hold Atorvastatin Calcium (Lipitor) 20 mg QHS GTB Last administered on 10/05/16 21: 42; Admin Dose 20 MG; Start 09/28/16 at 21:00; Status Future Hold Finasteride (Proscar) 5 mg DAILY GTB Last administered on 10/06/16 09:12; Admin Dose 5 MG; Start 09/29/16 at 09:00; Status Future Hold Multivitamins Therapeutic (Theragran) 1 tab DAILY GTB Last administered on 09:12; Admin Dose 1 TAB; Start 09/29/16 at 09:00; Status Future Hold Zinc Sulfate (Zinc Sulfate) 220 mg DAILY NGT Last administered on 10/06/16 09: 13; Admin Dose 220 MG; Start 09/29/16 at 09:00; Status Future Hold Ondansetron HCl (Zofran Inj) 4 mg Q6H PRN IV NAUSEA AND/OR VOMITING Last administered on 10/13/16 16:10; Admin Dose 4 MG; Start 09/29/16 at 07:30 Heparin Sodium (Porcine) (Heparin (5000 Units/0.5 ml)) 5,000 unit BID SC Last administered on 10/15/16 09:47; Admin Dose 5,000 UNIT; Start 09/29/16 at 09:00 Acetaminophen 650 mg 650 mg Q6H PRN GTB PAIN AND OR ELEVATED TEMP Last administered on 10/10/16 20:23; Admin Dose 650 MG; Start 10/02/16 at 08:00 Metronidazole (Flagyl 500 Mg (Pmx)) 100 ml @ 100 mls/hr Q8 IVPB Last administered on 10/15/16 05:32; Admin Dose 100 MLS/HR; Start 10/02/16 at 14:00 Midodrine 10 mg 10 mg TID@,17 PO Last administered on 10/06/16 17:15; Admin Dose 10 MG; Start 10/06/16 at 01:00; Status Future Hold Linezolid (Zyvox 600mg/D5W (Pmx)) 300 ml @ 300 mls/hr Q12 IVPB Last administered on 10/15/16 09:01; Admin Dose 300 MLS/HR; Start 10/06/16 at 21:00 Levothyroxine Sodium (Synthroid Iv) 12.5 mcg DAILY@06 IV Last administered on 05:32; Admin Dose 12.5 MCG; Start 10/07/16 at 06:00 Metoclopramide HCl (Reglan) 5 mg Q8 IV Last administered on 10/15/16 05:32; Admin Dose 5 MG; Start 10/06/16 at 22:00 Voriconazole 200 mg 200 mg BID PO Last administered on 10/15/16 09:47; Admin Dose 200 MG; Start 10/08/16 at 21:00 Dextrose/Sodium Chloride 1,000 ml @ 75 mls/hr [id number] IV Last administered on 10/15/16 11:21; Admin Dose 75 MLS/HR; Start 10/11/16 at 14:00 Colistimethate Sodium/Sodium Chloride (Coly-Mycin/NS) 100 ml @ 200 mls/hr Q12 IVPB Last administered on 10/15/16t 09:01; Admin Dose 200 MLS/HR; Start at 13:30 TAMMIE RIBERA Oct 15, 2016 11:34
--- NOTE | 2016-10-15 13:27 | PN ---
DATE: 10/15/2016 INFECTIOUS DISEASE PROGRESS NOTE SUBJECTIVE: No events. The patient is lying comfortably in bed. No fevers. LABORATORY DATA: WBC today 7.8, no shift, no bands. BUN 18, creatinine 0.52. Lactic acid remains up at 4.1. DIAGNOSTICS: X-ray of the abdomen yesterday revealed no evidence of bowel obstruction. ANTIMICROBIALS: 1. Voriconazole. 2. Colistin. 3. Zyvox 4. Flagyl. INDWELLINGS: Trach, PEG, Cee, left subclavian triple-lumen catheter. PHYSICAL EXAMINATION: GENERAL: This is a well-developed, chronically ill-appearing, elderly man who is in no distress. HEENT: Head atraumatic, normocephalic. Sclerae anicteric. Buccal mucosa dry. NECK: Supple. Tracheostomy present. CHEST: Rise symmetrical. Breath sounds diminished to bases. HEART: S1, S2. ABDOMEN: Distended, soft. Bowel sounds present. EXTREMITIES: Bilateral trace edema. SKIN: With multiple unstageable wounds. ASSESSMENT: 1. Resolving sepsis status post shock. 2. Persistent lactic acidosis. 3. Resolving pneumonia. 4. Teresita glabrata urinary tract infection. 5. Status post acute kidney injury. 6. Multiple unstageable wounds with left acetabular osteomyelitis. 7. History of severe pseudomembranous colitis. 8. Status post Escherichia coli and Bacteroides fragilis bacteremia on admission secondary to urina ry tract infection. 9. Ileus. PLAN: The patient is hemodynamically stable, covered with appropriate antimicrobials. He is being followed by multiple consultants, pending I and D of the wounds once he is medically clear. May nee d CT abdomen and pelvis given persistence lactic acidosis. Dictated By: CHRISTOPHER MCDONOUGH BUILDING CLEANING SUPERVISOR for YAQUELIN ESTRELLA MD NI/NTS Conf#: [id number] DID#: [id number]
--- NOTE | 2016-10-15 14:54 | PN ---
DATE: 10/15/2016 SUBJECTIVE: Very significant penoscrotal edema. The patient himself does not communicative and he has very bad contractures of the lower extremities. OBJECTIVE VITAL SIGNS: His temperature is 98.7, blood pressure 99/65, pulse is 103. The respiration is 18. ABDOMEN: Again the abdomen is a little distended and he has severe contracture of the lower extremi ties, more the left lower extremity than the right, but they are both very difficult to separate and has a pillow between his knees so he does not cause sores on his knees. The penis and the scrotum a re very swollen and red and at places it is seeping. LABORATORY DATA: CBC shows a white count 7.8, hemoglobin 9.2, hematocrit 29.8, platelets 171,000. The BUN is 18, creatinine 0.52, sodium 132, potassium 3.7, chloride 105, CO2 23. Urine culture Cand sonal glabrata. The patient is on linezolid and Flagyl and Colistin and at the present will just cont inue the present treatment. He was already on fluconazole that was stopped after treating his yeast infection. Dictated By: MISHEL WOODWARD/NTS Conf#: [id number] DID#: [id number]
--- NOTE | 2016-10-15 19:21 | PN ---
Date/Time of Note Date/Time of Note DATE: 10/15/16 TIME: 19:19 Assessment/Plan Lines/Catheters IV Catheter Type (from [facility]): Central Line Cee in Place (from [facility]): Yes Assessment/Plan Chief Complaint/Hosp Course 1. Shock, septic (uti, pna, wound). -Judicious fluid management -Supportive measures -Antibiotics 2. Multiple decubitus ulcerations with necrotic tissue and deep tissue injury -Offload -Local care -Vitamin C -Eventual nutritional optimization -Debridement when medically cleared 3. Contracted state with functional quadriplegia -Offloading -Nutritional optimization when possible 4. Anemia -Monitor 5. Ventilator dependent respiratory failure -Ventilator management and pulmonary toilet 6. Renal insufficiency -Judicious fluid management -Avoid nephrotoxic agents 7. Coronary artery disease and history of non-ST elevation ND -Cardiac optimization 8. Vomiting 2nd Ileus -bowel regimen per GI Thank you Problems: Subjective 24 Hr Interval Summary Tachycardia. No fevers or chills. No cough. No seizure. No rash. No blood rectum. No bloating. No seizures. No pyuria. Exam/Review of Systems Vital Signs Vitals Vital Signs Date Time Temp Pulse Resp B/P Pulse Ox O2 Delivery O2 Flow Rate FiO2 10/15/16 18:00 107 22 91/66 100 Mechanical Ventilator 10/15/16 17:45 30 10/15/16 16:00 99.0 Intake and Output 10/14/16 10/14/16 10/15/16 15:00 23:00 07:00 Intake Total 1380 ml 1820 ml 1140 ml Output Total 525 ml 570 ml 685 ml Balance 855 ml 1250 ml 455 ml Exam Free Text/Dictation Constitutional: No alert, No oriented Psych: No nl mood/affect Head: atraumatic, normocephalic Eyes: nl conjunctiva, No EOMI, No icteric ENMT: mucosa pink and moist, nl external ears & nose Neck: jvd, other (Trach in place), No non-tender, No supple Respiratory: No congested cough, No labored breathing Cardiovascular: No regular rate and rhythm Gastrointestinal: non-tender, other (PEG in place), soft, No rebound or guarding Musculoskeletal: No joint tenderness, No nl extremities to inspection, No nl gait and stance Extremities: No calf tenderness, No cyanosis Neurological: No nl mental status, No nl speech, No nl strength Skin: rash or lesions (Multiple decubitus ulcerations with debris, necrotic tissue, deep tissue injury), No diaphoresis, No nl turgor Lymph: nontender Results Result Diagram: 10/15/1639910/15/16399 EVA GUARDADO MD Oct 15, 2016 19:21
--- NOTE | 2016-10-15 21:53 | CONS ---
Date/Time of Note Date/Time of Note DATE: 10/15/16 TIME: 21:52 Assessment/Plan Assessment/Plan Chief Complaint/Hosp Course ANEMIA - NEAR- MICROCYTIC WITH INCREASED RDW DROP H/H DURING HOSPITALIZATION + ACD TRANSFUSE PRBC TO KEEP HB MORE THAN 8 TRANSFUSE NEEDED GI F-UP Stool OB, negative Monitor H&H every 8 hours, transfuse 2 units for hemoglobin less than 8 LEUKOCYTOSIS- REACTIVE CONT ATB FOR SEPSIS THROMBOCYTOSIS REACTIVE SHOULD IMPROVE WITH RESOLUTION OF SEPSIS Severe sepsis with septic shock 2/2 Decub ulcers and/or UTI and/or PNA: stable, off pressor support Severe hypernatremic dehydration Acute renal failure 2/2 ATN from dehydration UTI Multifocal pneumonia Encephalopathy ?acute versus acute on chronic (baseline unknown) Hypokalemia Problems: Consultation Date/Type/Reason Admit Date/Time Sep 24, 2016 at 03:19 Initial Consult Date 09/24/16 [facility] Referring Provider: FELIX BLAKE DO 24 HR Interval Summary Free Text/Dictation remains on trach vent. no obvious distress at this time. COUNT REVIEWED NO BLEEDING Exam/Review of Systems Vital Signs Vitals Vital Signs Date Time Temp Pulse Resp B/P Pulse Ox O2 Delivery O2 Flow Rate FiO2 10/15/16 20:02 103 23 100 30 10/15/16 19:00 98.8 83/59 Mechanical Ventilator Intake and Output 10/14/16 10/14/16 10/15/16 15:00 23:00 07:00 Intake Total 1380 ml 1820 ml 1140 ml Output Total 525 ml 570 ml 685 ml Balance 855 ml 1250 ml 455 ml Exam Exam General: No apparent distress. No purposeful response. no distress Eyes: Equal round. Neck: Tracheostomy in place Cardiac: Remains regular rate. Noted with heart murmur Pulmonary: [No obvious adventitious lung sounds still. Remains on mechanical ventilation GI: PEG tube in place. Is distended and slightly firm on palpation (likely anasarca) Extremities: Edema noted bilateral lower extremities as well as upper extremities Skin: decubitus ulcers Neurologic: Alert. No purposeful response Results Result Diagram: 10/15/16 0400 10/15/16 0400 Results 24 hrs Laboratory Tests Test 10/15/16 04:00 White Blood Count 7.8 Red Blood Count 3.58 L Hemoglobin 9.2 #L Hematocrit 29.8 L Mean Corpuscular Volume 83.2 Mean Corpuscular Hemoglobin 25.7 L Mean Corpuscular Hemoglobin Concent 30.9 L Red Cell Distribution Width 19.1 H Platelet Count 171 Mean Platelet Volume 11.0 H Neutrophils % 71.2 Lymphocytes % 15.8 Monocytes % 10.4 Eosinophils % 1.3 Basophils % 0.5 Nucleated Red Blood Cells % 0.0 Neutrophils # 5.5 Lymphocytes # 1.2 Monocytes # 0.8 Eosinophils # 0.1 Basophils # 0.0 Nucleated Red Blood Cells # 0.0 Sodium Level 132 L Potassium Level 3.7 Chloride Level 105 Carbon Dioxide Level 23 Anion Gap 8 Blood Urea Nitrogen 18 Creatinine 0.52 L Glucose Level 90 Calcium Level 7.0 L Medications Medications Current Medications Acetaminophen (Tylenol Supp) 650 mg Q4H PRN [place] PAIN LEVEL 1-3 OR FEVER; Start 09/24/16 at 03:00 Eye Lubricant (Artificial Tears Oph) 1 drop TID BOTH EYES Last administered on 10/15/16 20:57; Admin Dose 1 DROP; Start 09/24/16 at 09:00 Sodium Hypochlorite (Dakin'S (1/4 Strength)) 1 applic BID IRR Last administered on 10/15/16 20:57; Admin Dose 1 APPLIC; Start 09/24/16 at 21:00 Pantoprazole (Protonix Iv) 40 mg BID@06,18 IV Last administered on 10/15/16 17 :15; Admin Dose 40 MG; Start 09/24/16 at 18:00 Collagenase (Santyl) 1 applic DAILY TOP Last administered on 10/15/16 09:01; Admin Dose 1 APPLIC; Start 09/24/16 at 20:30 Miscellaneous Information 1 ea NOTE XX ; Start 09/24/16 at 21:00 Glucose (Glutose) 15 gm Q15M PRN PO DECREASED GLUCOSE; Start 09/24/16 at 21:00 Glucose (Glutose) 22.5 gm Q15M PRN PO DECREASED GLUCOSE; Start 09/24/16 at 21: 00 Dextrose (D50w Syringe) 25 ml Q15M PRN IV DECREASED GLUCOSE; Start 09/24/16 at 21:00 Dextrose (D50w Syringe) 50 ml Q15M PRN IV DECREASED GLUCOSE; Start 09/24/16 at 21:00 Glucagon (Glucagen) 1 mg Q15M PRN IM DECREASED GLUCOSE; Start 09/24/16 at 21:00 Glucose 15 gm 15 gm Q15M PRN BUCCAL DECREASED GLUCOSE; Start 09/24/16 at 21:00 Acetaminophen (Ofirmev 1000mg/ 100ml Iv) 100 ml @ 400 mls/hr Q6H PRN IVPB FEVER Last administered on 10/07/16 17:14; Admin Dose 400 MLS/HR; Start at 22:00 Vancomycin HCl (Vancomycin Oral Syringe) 250 mg Q6 PO Last administered on 17:15; Admin Dose 250 MG; Start 09/26/16 at 18:00; Status Future Hold Lactobacillus Acidoph/Bulgaricus (Floranex) 1 tab TID PO Last administered on 13:22; Admin Dose 1 TAB; Start 09/26/16 at 21:00; Status Future Hold Atorvastatin Calcium (Lipitor) 20 mg QHS GTB Last administered on 10/05/16 21: 42; Admin Dose 20 MG; Start 09/28/16 at 21:00; Status Future Hold Finasteride (Proscar) 5 mg DAILY GTB Last administered on 10/06/16 09:12; Admin Dose 5 MG; Start 09/29/16 at 09:00; Status Future Hold Multivitamins Therapeutic (Theragran) 1 tab DAILY GTB Last administered on 09:12; Admin Dose 1 TAB; Start 09/29/16 at 09:00; Status Future Hold Zinc Sulfate (Zinc Sulfate) 220 mg DAILY NGT Last administered on 10/06/16 09: 13; Admin Dose 220 MG; Start 09/29/16 at 09:00; Status Future Hold Ondansetron HCl (Zofran Inj) 4 mg Q6H PRN IV NAUSEA AND/OR VOMITING Last administered on 10/13/16 16:10; Admin Dose 4 MG; Start 09/29/16 at 07:30 Heparin Sodium (Porcine) (Heparin (5000 Units/0.5 ml)) 5,000 unit BID SC Last administered on 10/15/16 21:06; Admin Dose 5,000 UNIT; Start 09/29/16 at 09:00 Acetaminophen 650 mg 650 mg Q6H PRN GTB PAIN AND OR ELEVATED TEMP Last administered on 10/10/16 20:23; Admin Dose 650 MG; Start 10/02/16 at 08:00 Metronidazole (Flagyl 500 Mg (Pmx)) 100 ml @ 100 mls/hr Q8 IVPB Last administered on 10/15/16 13:30; Admin Dose 100 MLS/HR; Start 10/02/16 at 14:00 Midodrine 10 mg 10 mg TID@,,17 PO Last administered on 10/06/16 17:15; Admin Dose 10 MG; Start 10/06/16 at 01:00; Status Future Hold Linezolid (Zyvox 600mg/D5W (Pmx)) 300 ml @ 300 mls/hr Q12 IVPB Last administered on 10/15/16 20:56; Admin Dose 300 MLS/HR; Start 10/06/16 at 21:00 Levothyroxine Sodium (Synthroid Iv) 12.5 mcg DAILY@06 IV Last administered on 05:32; Admin Dose 12.5 MCG; Start 10/07/16 at 06:00 Metoclopramide HCl (Reglan) 5 mg Q8 IV Last administered on 10/15/16 13:29; Admin Dose 5 MG; Start 10/06/16 at 22:00 Voriconazole 200 mg 200 mg BID PO Last administered on 10/15/16 20:56; Admin Dose 200 MG; Start 10/08/16 at 21:00 Dextrose/Sodium Chloride 1,000 ml @ 75 mls/hr [id number] IV Last administered on 10/15/16 11:21; Admin Dose 75 MLS/HR; Start 10/11/16 at 14:00 Colistimethate Sodium/Sodium Chloride (Coly-Mycin/NS) 100 ml @ 200 mls/hr Q12 IVPB Last administered on 10/15/16 20:56; Admin Dose 200 MLS/HR; Start at 13:30 SCOTT RODRIGUES MD Oct 15, 2016 21:53
[2016-10-16] VITALS (25 sets, daily range): BP systolic 89–135; BP diastolic 52–65; PULSE 110–114; RESP 16–28
[2016-10-16] MEDS: ALBUTEROL HFA 8 GM INHALER INH SCH ×4 (01:46→21:49)
[2016-10-16] MEDS: IPRATROPIUM (HFA) 12.9 GM INHALER INH SCH ×4 (01:46→21:49)
[2016-10-16] MEDS: METOCLOPRAMIDE 10 MG INJ IV SCH ×3 (05:15→21:39)
[2016-10-16] MEDS: LEVOTHYROXINE 100 MCG VIAL IV SCH (05:15)
[2016-10-16] MEDS: PANTOPRAZOLE 40 MG INJ IV SCH ×2 (05:15→17:59)
[2016-10-16] MEDS: metroNIDAZOLE 500 MG/NS (PMX) 100 ML IVPB SCH ×3 (05:16→21:39)
[2016-10-16 08:24] LABS: ADD SCAN DIFF NO
[2016-10-16 08:35] LABS: BASOPHILS % 0.3 % (0.0-2.0); EOSINOPHILS # 0.1 10^3/ul (0.0-0.5); EOSINOPHILS % 1.2 % (0.0-7.0); HEMATOCRIT 30.1 % (42.0-52.0); HEMOGLOBIN 9.3 g/dl (14.0-18.0); LYMPHOCYTES # 2.1 10^3/ul (0.8-2.9); LYMPHOCYTES % 24.2 % (15.0-51.0); MEAN CORPUSCULAR HEMOGLOBIN 26.1 pg (29.0-33.0); MEAN CORPUSCULAR HGB CONC 30.9 g/dl (32.0-37.0); MEAN CORPUSCULAR VOLUME 84.3 fl (82.0-101.0); MEAN PLATELET VOLUME 11.6 fl (7.4-10.4); MONOCYTE # 1.1 10^3/ul (0.3-0.9); MONOCYTES % 12.8 % (0.0-11.0); NEUTROPHIL # 5.2 10^3/ul (1.6-7.5); PLATELET COUNT 214 10^3/UL (140-415); RED BLOOD COUNT 3.57 10^6/ul (4.70-6.10); RED CELL DISTRIBUTION WIDTH 19.2 % (11.5-14.5); WHITE BLOOD COUNT 8.6 10^3/ul (4.8-10.8)
[2016-10-16 08:49] LABS: CALCIUM 6.9 mg/dl (8.4-10.2); CREATININE 0.46 mg/dl (0.61-1.24); POTASSIUM 4.8 mmol/L (3.5-5.1)
[2016-10-16] MEDS: COLLAGENASE 30 GM TUBE TOP SCH (09:00)
[2016-10-16] MEDS: SODIUM HYPOCHLORITE 0.125% 473 ML BTL IRR SCH ×2 (09:00→21:00)
[2016-10-16] MEDS: ARTIFICIAL TEARS 15 ML OPH BOTH EYES SCH ×3 (09:00→21:00)
[2016-10-16] MEDS: LINEZOLID 600 MG/D5W (PMX) 300 ML IVPB SCH ×2 (10:00→20:30)
--- NOTE | 2016-10-16 10:11 | PN ---
DATE: 10/16/2016 SUBJECTIVE: Penoscrotal edema and swelling and the patient himself is not verbal, not communicating . OBJECTIVE FINDINGS: His temperature is 98.8, blood pressure 135/62. Pulse is 111, respiration 18. The scrotum and penis are swollen and red, but they look a little less than before. The Cee cath eter that he has is draining clear urine. The patient is very contracted. LABORATORY DATA: CBC shows a white count of 7.8, hemoglobin 9.2. The BUN is 18, creatinine 0.52, a nd the urine culture done earlier showed Teresita glabrata and the patient is on voriconazole for mary t. PLAN: To keep the scrotum elevated on a towel all the time, put a pillow between the knees to keep them , and keep the Cee catheter in and continue his voriconazole. Dictated By: MISHEL WOODWARD/ELIZABETH Conf#: [id number] DID#: [id number]
[2016-10-16] MEDS: COLISTIMETHATE 75 MG in SOD CHLORIDE 0.9% 100 ML IVPB SCH ×2 (10:19→20:30)
[2016-10-16] MEDS: VORICONAZOLE 200 MG TAB PO SCH ×2 (10:19→21:00)
[2016-10-16] MEDS: HEPARIN 5,000 UNIT/0.5 ML VIAL SC SCH ×2 (10:39→20:34)
--- NOTE | 2016-10-16 11:06 | PN ---
Date/Time of Note Date/Time of Note DATE: 10/16/16 TIME: 11:05 Assessment/Plan Lines/Catheters IV Catheter Type (from [facility]): Central Line Cee in Place (from [facility]): Yes Assessment/Plan Chief Complaint/Hosp Course 1. Shock, septic (uti, pna, wound). Improving -Judicious fluid management -Supportive measures -Antibiotics 2. Multiple decubitus ulcerations with necrotic tissue and deep tissue injury -Offload -Local care -Vitamin C -Eventual nutritional optimization -Debridement when medically cleared 3. Contracted state with functional quadriplegia -Offloading -Nutritional optimization when possible 4. Anemia -Monitor 5. Ventilator dependent respiratory failure -Ventilator management and pulmonary toilet 6. Renal insufficiency -Judicious fluid management -Avoid nephrotoxic agents 7. Coronary artery disease and history of non-ST elevation OR -Cardiac optimization 8. Vomiting 2nd Ileus -bowel regimen per GI Thank you Problems: Subjective 24 Hr Interval Summary Tachycardia. Lactic acidosis. No fevers or chills. No cough. No seizure. No rash. No blood rectum. No bloating. No seizures. No pyuria. Exam/Review of Systems Vital Signs Vitals Vital Signs Date Time Temp Pulse Resp B/P Pulse Ox O2 Delivery O2 Flow Rate FiO2 10/17/16 23:10 108 16 98 30 10/17/16 20:12 99.6 107/56 10/15/16 19:00 Mechanical Ventilator Intake and Output 10/17/16 10/17/16 10/18/16 15:00 23:00 07:00 Intake Total 1300 ml Output Total 1800 ml Balance -500 ml Exam Free Text/Dictation Constitutional: No alert, No oriented Psych: No nl mood/affect Head: atraumatic, normocephalic Eyes: nl conjunctiva, No EOMI, No icteric ENMT: mucosa pink and moist, nl external ears & nose Neck: jvd, other (Trach in place), No non-tender, No supple Respiratory: No congested cough, No labored breathing Cardiovascular: No regular rate and rhythm Gastrointestinal: non-tender, other (PEG in place), soft, No rebound or guarding Musculoskeletal: No joint tenderness, No nl extremities to inspection, No nl gait and stance Extremities: No calf tenderness, No cyanosis Neurological: No nl mental status, No nl speech, No nl strength Skin: rash or lesions (Multiple decubitus ulcerations with debris, necrotic tissue, deep tissue injury), No diaphoresis, No nl turgor Lymph: nontender Results Result Diagram: 10/17/16 1228 10/17/16 0851 EVA GUARDADO MD Oct 16, 2016 11:06
--- NOTE | 2016-10-16 12:21 | CONS ---
Date/Time of Note Date/Time of Note DATE: 10/16/16 TIME: 12:18 Assessment/Plan Assessment/Plan Additional Assessment/Plan 1. Acute kidney injury on chronic kidney disease. due to ATN from septic shock 2. septic shock on levophed 3. severe metabolic acidosis on bicarbonate drip 5. History of chronic respiratory failure, status post tracheostomy, on ventilator. 6. History of G-tube. 7. Poor mental status due to the previous cerebrovascular accident. 8. History of dementia. 9. History of hypertension. 10. Hypocalcemia with Ca 6.9- likely pseudohypocalcemia, because corrected Ca with Serum albumin of 1.6 is 8.8-no symptoms of hypocalcemia PLAN: transferrred to Telemetry floor D/c IV fluids today, titate tube feeding to goal rate as tolerated and per TF recommendations. Corrected Ca 8.8, no new orders for hypocalcemia On IV Colistin, need to monitor renal function and K will follow up Consultation Date/Type/Reason Admit Date/Time Sep 24, 2016 at 03:19 Initial Consult Date 09/24/16 Type of Consultation: NEPHROLOGY Referring Provider: FELIX BLAKE DO 24 HR Interval Summary Free Text/Dictation Ca 6.9, BP stable,afebrile, no pain , transferred to Telemetry now Exam/Review of Systems Vital Signs Vitals Vital Signs Date Time Temp Pulse Resp B/P Pulse Ox O2 Delivery O2 Flow Rate FiO2 10/16/16 08:32 111 10/16/16 08:00 30 10/16/16 07:56 98.8 18 135/62 99 10/15/16 19:00 Mechanical Ventilator Intake and Output 10/15/16 10/15/16 10/16/16 15:00 23:00 07:00 Intake Total 1480 ml 675 ml 400 ml Output Total 680 ml 470 ml 600 ml Balance 800 ml 205 ml -200 ml Exam GENERAL: This is a fragile, chronically ill-appearing, elderly man who is in no distress. HEENT: Head atraumatic, normocephalic. Sclerae anicteric. Buccal mucosa dry. NECK: Supple. Tracheostomy present. CHEST: Rise symmetrical. Breath sounds diminished to bases. HEART: S1, S2. ABDOMEN: Soft, distended. Bowel sounds hypoactive. EXTREMITIES: Bilateral trace edema. SKIN: With multiple infected wounds. Results Result Diagram: 10/16/1680910/16/16 0810 Results 24 hrs Laboratory Tests Test 10/16/16 08:10 White Blood Count 8.6 Red Blood Count 3.57 L Hemoglobin 9.3 L Hematocrit 30.1 L Mean Corpuscular Volume 84.3 Mean Corpuscular Hemoglobin 26.1 L Mean Corpuscular Hemoglobin Concent 30.9 L Red Cell Distribution Width 19.2 H Platelet Count 214 # Mean Platelet Volume 11.6 H Neutrophils % 61.0 Lymphocytes % 24.2 Monocytes % 12.8 H Eosinophils % 1.2 Basophils % 0.3 Nucleated Red Blood Cells % 0.0 Neutrophils # 5.2 Lymphocytes # 2.1 Monocytes # 1.1 H Eosinophils # 0.1 Basophils # 0.0 Nucleated Red Blood Cells # 0.0 Sodium Level 133 L Potassium Level 4.8 Chloride Level 106 Carbon Dioxide Level 22 Anion Gap 10 Blood Urea Nitrogen 16 Creatinine 0.46 L Glucose Level 86 Calcium Level 6.9 L Medications Medications Current Medications Acetaminophen (Tylenol Supp) 650 mg Q4H PRN [place] PAIN LEVEL 1-3 OR FEVER; Start 09/24/16 at 03:00 Eye Lubricant (Artificial Tears Oph) 1 drop TID BOTH EYES Last administered on 10/16/16 09:00; Admin Dose 1 DROP; Start 09/24/16 at 09:00 Sodium Hypochlorite (Dakin'S (1/4 Strength)) 1 applic BID IRR Last administered on 10/16/16 09:00; Admin Dose 1 APPLIC; Start 09/24/16 at 21:00 Pantoprazole (Protonix Iv) 40 mg BID@06,18 IV Last administered on 10/16/16 05 :15; Admin Dose 40 MG; Start 09/24/16 at 18:00 Collagenase (Santyl) 1 applic DAILY TOP Last administered on 10/15/16 09:01; Admin Dose 1 APPLIC; Start 09/24/16 at 20:30 Miscellaneous Information 1 ea NOTE XX ; Start 09/24/16 at 21:00 Glucose (Glutose) 15 gm Q15M PRN PO DECREASED GLUCOSE; Start 09/24/16 at 21:00 Glucose (Glutose) 22.5 gm Q15M PRN PO DECREASED GLUCOSE; Start 09/24/16 at 21: 00 Dextrose (D50w Syringe) 25 ml Q15M PRN IV DECREASED GLUCOSE; Start 09/24/16 at 21:00 Dextrose (D50w Syringe) 50 ml Q15M PRN IV DECREASED GLUCOSE; Start 09/24/16 at 21:00 Glucagon (Glucagen) 1 mg Q15M PRN IM DECREASED GLUCOSE; Start 09/24/16 at 21:00 Glucose 15 gm 15 gm Q15M PRN BUCCAL DECREASED GLUCOSE; Start 09/24/16 at 21:00 Acetaminophen (Ofirmev 1000mg/ 100ml Iv) 100 ml @ 400 mls/hr Q6H PRN IVPB FEVER Last administered on 10/07/16 17:14; Admin Dose 400 MLS/HR; Start at 22:00 Vancomycin HCl (Vancomycin Oral Syringe) 250 mg Q6 PO Last administered on 17:15; Admin Dose 250 MG; Start 09/26/16 at 18:00; Status Future Hold Lactobacillus Acidoph/Bulgaricus (Floranex) 1 tab TID PO Last administered on 13:22; Admin Dose 1 TAB; Start 09/26/16 at 21:00; Status Future Hold Atorvastatin Calcium (Lipitor) 20 mg QHS GTB Last administered on 10/05/16 21: 42; Admin Dose 20 MG; Start 09/28/16 at 21:00; Status Future Hold Finasteride (Proscar) 5 mg DAILY GTB Last administered on 10/06/16 09:12; Admin Dose 5 MG; Start 09/29/16 at 09:00; Status Future Hold Multivitamins Therapeutic (Theragran) 1 tab DAILY GTB Last administered on 09:12; Admin Dose 1 TAB; Start 09/29/16 at 09:00; Status Future Hold Zinc Sulfate (Zinc Sulfate) 220 mg DAILY NGT Last administered on 10/06/16 09: 13; Admin Dose 220 MG; Start 09/29/16 at 09:00; Status Future Hold Ondansetron HCl (Zofran Inj) 4 mg Q6H PRN IV NAUSEA AND/OR VOMITING Last administered on 10/13/16 16:10; Admin Dose 4 MG; Start 09/29/16 at 07:30 Heparin Sodium (Porcine) (Heparin (5000 Units/0.5 ml)) 5,000 unit BID SC Last administered on 10/16/16 10:39; Admin Dose 5,000 UNIT; Start 09/29/16 at 09:00 Acetaminophen 650 mg 650 mg Q6H PRN GTB PAIN AND OR ELEVATED TEMP Last administered on 10/10/16 20:23; Admin Dose 650 MG; Start 10/02/16 at 08:00 Metronidazole (Flagyl 500 Mg (Pmx)) 100 ml @ 100 mls/hr Q8 IVPB Last administered on 10/16/16 05:16; Admin Dose 100 MLS/HR; Start 10/02/16 at 14:00 Midodrine 10 mg 10 mg TID@,,17 PO Last administered on 10/06/16 17:15; Admin Dose 10 MG; Start 10/06/16 at 01:00; Status Future Hold Linezolid (Zyvox 600mg/D5W (Pmx)) 300 ml @ 300 mls/hr Q12 IVPB Last administered on 10/16/16 10:00; Admin Dose 300 MLS/HR; Start 10/06/16 at 21:00 Levothyroxine Sodium (Synthroid Iv) 12.5 mcg DAILY@06 IV Last administered on 05:15; Admin Dose 12.5 MCG; Start 10/07/16 at 06:00 Metoclopramide HCl (Reglan) 5 mg Q8 IV Last administered on 10/16/16 05:15; Admin Dose 5 MG; Start 10/06/16 at 22:00 Voriconazole 200 mg 200 mg BID PO Last administered on 10/16/16 10:19; Admin Dose 200 MG; Start 10/08/16 at 21:00 Dextrose/Sodium Chloride 1,000 ml @ 75 mls/hr [id number] IV Last administered on 10/15/16 22:49; Admin Dose 75 MLS/HR; Start 10/11/16 at 14:00 Colistimethate Sodium/Sodium Chloride (Coly-Mycin/NS) 100 ml @ 200 mls/hr Q12 IVPB Last administered on 10/16/16 10:19; Admin Dose 200 MLS/HR; Start at 13:30 MAGGIE DINERO MD Oct 16, 2016 12:21
--- NOTE | 2016-10-16 13:05 | CONS ---
Date/Time of Note Date/Time of Note DATE: 10/16/16 TIME: 13:03 Assessment/Plan Assessment/Plan Additional Assessment/Plan Ventilator settings; AC of 14, tidal volume 500, PEEP of 5, 30% FiO2. Assessment recommendations; 1. Patient admitted for sepsis and pneumonia with significant overall improvement. 2. Multi-infarct dementia. 3. Chronic respiratory failure, ventilator dependent. 4. History of BPH and hypothyroidism. Continue current treatment. Consultation Date/Type/Reason Admit Date/Time Sep 24, 2016 at 03:19 Initial Consult Date 09/24/16 Type of Consultation: Pulmonary Referring Provider: FELIX BLAKE DO 24 HR Interval Summary Free Text/Dictation Patient condition is stable. Has remained hemodynamically stable. Abdomen exam; elderly male, on ventilator via tracheostomy unresponsive. Exam/Review of Systems Vital Signs Vitals Vital Signs Date Time Temp Pulse Resp B/P Pulse Ox O2 Delivery O2 Flow Rate FiO2 10/16/16 12:52 112 94/57 10/16/16 12:00 98.5 16 99 10/16/16 08:00 30 10/15/16 19:00 Mechanical Ventilator Intake and Output 10/15/16 10/15/16 10/16/16 15:00 23:00 07:00 Intake Total 1480 ml 675 ml 400 ml Output Total 680 ml 470 ml 600 ml Balance 800 ml 205 ml -200 ml Exam HEENT exam is; supple neck, no JVD. No lymphadenopathy. Midline trachea. No thyromegaly. Tracheostomy in place with clean insertion site. Pupils are small bilaterally. Chest examination; clear to auscultation. S1-S2 audible, no murmurs. Regular rhythm. Abdomen examination; soft, bowel sounds audible. G-tube in place. No organomegaly. Extremity exam is; no peripheral edema. CORRECTIONS CADET examination; patient remains unresponsive. Results Result Diagram: 10/16/16 0810 10/16/16 0810 Results 24 hrs Laboratory Tests Test 10/16/16 08:10 White Blood Count 8.6 Red Blood Count 3.57 L Hemoglobin 9.3 L Hematocrit 30.1 L Mean Corpuscular Volume 84.3 Mean Corpuscular Hemoglobin 26.1 L Mean Corpuscular Hemoglobin Concent 30.9 L Red Cell Distribution Width 19.2 H Platelet Count 214 # Mean Platelet Volume 11.6 H Neutrophils % 61.0 Lymphocytes % 24.2 Monocytes % 12.8 H Eosinophils % 1.2 Basophils % 0.3 Nucleated Red Blood Cells % 0.0 Neutrophils # 5.2 Lymphocytes # 2.1 Monocytes # 1.1 H Eosinophils # 0.1 Basophils # 0.0 Nucleated Red Blood Cells # 0.0 Sodium Level 133 L Potassium Level 4.8 Chloride Level 106 Carbon Dioxide Level 22 Anion Gap 10 Blood Urea Nitrogen 16 Creatinine 0.46 L Glucose Level 86 Calcium Level 6.9 L Medications Medications Current Medications Acetaminophen (Tylenol Supp) 650 mg Q4H PRN [place] PAIN LEVEL 1-3 OR FEVER; Start 09/24/16 at 03:00 Eye Lubricant (Artificial Tears Oph) 1 drop TID BOTH EYES Last administered on 10/16/16 09:00; Admin Dose 1 DROP; Start 09/24/16 at 09:00 Sodium Hypochlorite (Dakin'S (1/4 Strength)) 1 applic BID IRR Last administered on 10/16/16 09:00; Admin Dose 1 APPLIC; Start 09/24/16 at 21:00 Pantoprazole (Protonix Iv) 40 mg BID@06,18 IV Last administered on 10/16/16 05 :15; Admin Dose 40 MG; Start 09/24/16 at 18:00 Collagenase (Santyl) 1 applic DAILY TOP Last administered on 10/15/16 09:01; Admin Dose 1 APPLIC; Start 09/24/16 at 20:30 Miscellaneous Information 1 ea NOTE XX ; Start 09/24/16 at 21:00 Glucose (Glutose) 15 gm Q15M PRN PO DECREASED GLUCOSE; Start 09/24/16 at 21:00 Glucose (Glutose) 22.5 gm Q15M PRN PO DECREASED GLUCOSE; Start 09/24/16 at 21: 00 Dextrose (D50w Syringe) 25 ml Q15M PRN IV DECREASED GLUCOSE; Start 09/24/16 at 21:00 Dextrose (D50w Syringe) 50 ml Q15M PRN IV DECREASED GLUCOSE; Start 09/24/16 at 21:00 Glucagon (Glucagen) 1 mg Q15M PRN IM DECREASED GLUCOSE; Start 09/24/16 at 21:00 Glucose 15 gm 15 gm Q15M PRN BUCCAL DECREASED GLUCOSE; Start 09/24/16 at 21:00 Acetaminophen (Ofirmev 1000mg/ 100ml Iv) 100 ml @ 400 mls/hr Q6H PRN IVPB FEVER Last administered on 10/07/16 17:14; Admin Dose 400 MLS/HR; Start at 22:00 Vancomycin HCl (Vancomycin Oral Syringe) 250 mg Q6 PO Last administered on 17:15; Admin Dose 250 MG; Start 09/26/16 at 18:00; Status Future Hold Lactobacillus Acidoph/Bulgaricus (Floranex) 1 tab TID PO Last administered on 13:22; Admin Dose 1 TAB; Start 09/26/16 at 21:00; Status Future Hold Atorvastatin Calcium (Lipitor) 20 mg QHS GTB Last administered on 10/05/16 21: 42; Admin Dose 20 MG; Start 09/28/16 at 21:00; Status Future Hold Finasteride (Proscar) 5 mg DAILY GTB Last administered on 10/06/16 09:12; Admin Dose 5 MG; Start 09/29/16 at 09:00; Status Future Hold Multivitamins Therapeutic (Theragran) 1 tab DAILY GTB Last administered on 09:12; Admin Dose 1 TAB; Start 09/29/16 at 09:00; Status Future Hold Zinc Sulfate (Zinc Sulfate) 220 mg DAILY NGT Last administered on 10/06/16 09: 13; Admin Dose 220 MG; Start 09/29/16 at 09:00; Status Future Hold Ondansetron HCl (Zofran Inj) 4 mg Q6H PRN IV NAUSEA AND/OR VOMITING Last administered on 10/13/16 16:10; Admin Dose 4 MG; Start 09/29/16 at 07:30 Heparin Sodium (Porcine) (Heparin (5000 Units/0.5 ml)) 5,000 unit BID SC Last administered on 10/16/16 10:39; Admin Dose 5,000 UNIT; Start 09/29/16 at 09:00 Acetaminophen 650 mg 650 mg Q6H PRN GTB PAIN AND OR ELEVATED TEMP Last administered on 10/10/16 20:23; Admin Dose 650 MG; Start 10/02/16 at 08:00 Metronidazole (Flagyl 500 Mg (Pmx)) 100 ml @ 100 mls/hr Q8 IVPB Last administered on 10/16/16 05:16; Admin Dose 100 MLS/HR; Start 10/02/16 at 14:00 Midodrine 10 mg 10 mg TID@,,17 PO Last administered on 10/06/16 17:15; Admin Dose 10 MG; Start 10/06/16 at 01:00; Status Future Hold Linezolid (Zyvox 600mg/D5W (Pmx)) 300 ml @ 300 mls/hr Q12 IVPB Last administered on 10/16/16 10:00; Admin Dose 300 MLS/HR; Start 10/06/16 at 21:00 Levothyroxine Sodium (Synthroid Iv) 12.5 mcg DAILY@06 IV Last administered on 05:15; Admin Dose 12.5 MCG; Start 10/07/16 at 06:00 Metoclopramide HCl (Reglan) 5 mg Q8 IV Last administered on 10/16/16 05:15; Admin Dose 5 MG; Start 10/06/16 at 22:00 Voriconazole 200 mg 200 mg BID PO Last administered on 10/16/16 10:19; Admin Dose 200 MG; Start 10/08/16 at 21:00 Colistimethate Sodium/Sodium Chloride (Coly-Mycin/NS) 100 ml @ 200 mls/hr Q12 IVPB Last administered on 10/16/16 10:19; Admin Dose 200 MLS/HR; Start at 13:30 MAIN SALTER Oct 16, 2016 13:05
--- NOTE | 2016-10-16 14:42 | PN ---
Date/Time of Note Date/Time of Note DATE: 10/16/16 TIME: 14:41 Assessment/Plan VTE Prophylaxis VTE Prophylaxis Intervention: SCD's Lines/Catheters IV Catheter Type (from Nrsg): Central Line Central line still needed: No Urinary Cath still in place: Yes Reason Cath still needed: urinary retention Assessment/Plan Chief Complaint/Hosp Course The patient with no cahgne Problems: Assessment/Plan Severe septic shock Preserved ejection fraction Moderate aortic stenosis Respiratory failure/Tracheostomy Coronary artery disease Anemia Acute kidney injury >resolved -Patient off IV pressors -antibiotics as per infectious disease -withhold any antihypertensives at the current time given recent sepsis. Subjective 24 Hr Interval Summary Free Text/Dictation The patient with no change Exam/Review of Systems Vital Signs Vitals Vital Signs Date Time Temp Pulse Resp B/P Pulse Ox O2 Delivery O2 Flow Rate FiO2 10/16/16 13:00 114 23 99 30 10/16/16 12:52 94/57 10/16/16 12:00 98.5 10/15/16 19:00 Mechanical Ventilator Intake and Output 10/15/16 10/15/16 10/16/16 15:00 23:00 07:00 Intake Total 1480 ml 675 ml 400 ml Output Total 680 ml 470 ml 600 ml Balance 800 ml 205 ml -200 ml Results Result Diagram: 10/16/16 0810 10/16/16 0810 Results 24 hrs Laboratory Tests Test 10/16/16 08:10 White Blood Count 8.6 Red Blood Count 3.57 L Hemoglobin 9.3 L Hematocrit 30.1 L Mean Corpuscular Volume 84.3 Mean Corpuscular Hemoglobin 26.1 L Mean Corpuscular Hemoglobin Concent 30.9 L Red Cell Distribution Width 19.2 H Platelet Count 214 # Mean Platelet Volume 11.6 H Neutrophils % 61.0 Lymphocytes % 24.2 Monocytes % 12.8 H Eosinophils % 1.2 Basophils % 0.3 Nucleated Red Blood Cells % 0.0 Neutrophils # 5.2 Lymphocytes # 2.1 Monocytes # 1.1 H Eosinophils # 0.1 Basophils # 0.0 Nucleated Red Blood Cells # 0.0 Sodium Level 133 L Potassium Level 4.8 Chloride Level 106 Carbon Dioxide Level 22 Anion Gap 10 Blood Urea Nitrogen 16 Creatinine 0.46 L Glucose Level 86 Calcium Level 6.9 L Medications Medications Current Medications Acetaminophen (Tylenol Supp) 650 mg Q4H PRN [place] PAIN LEVEL 1-3 OR FEVER; Start 09/24/16 at 03:00 Eye Lubricant (Artificial Tears Oph) 1 drop TID BOTH EYES Last administered on 10/16/16 13:00; Admin Dose 1 DROP; Start 09/24/16 at 09:00 Sodium Hypochlorite (Dakin'S (1/4 Strength)) 1 applic BID IRR Last administered on 10/16/16 09:00; Admin Dose 1 APPLIC; Start 09/24/16 at 21:00 Pantoprazole (Protonix Iv) 40 mg BID@06,18 IV Last administered on 10/16/16 05 :15; Admin Dose 40 MG; Start 09/24/16 at 18:00 Collagenase (Santyl) 1 applic DAILY TOP Last administered on 10/15/16 09:01; Admin Dose 1 APPLIC; Start 09/24/16 at 20:30 Miscellaneous Information 1 ea NOTE XX ; Start 09/24/16 at 21:00 Glucose (Glutose) 15 gm Q15M PRN PO DECREASED GLUCOSE; Start 09/24/16 at 21:00 Glucose (Glutose) 22.5 gm Q15M PRN PO DECREASED GLUCOSE; Start 09/24/16 at 21: 00 Dextrose (D50w Syringe) 25 ml Q15M PRN IV DECREASED GLUCOSE; Start 09/24/16 at 21:00 Dextrose (D50w Syringe) 50 ml Q15M PRN IV DECREASED GLUCOSE; Start 09/24/16 at 21:00 Glucagon (Glucagen) 1 mg Q15M PRN IM DECREASED GLUCOSE; Start 09/24/16 at 21:00 Glucose 15 gm 15 gm Q15M PRN BUCCAL DECREASED GLUCOSE; Start 09/24/16 at 21:00 Acetaminophen (Ofirmev 1000mg/ 100ml Iv) 100 ml @ 400 mls/hr Q6H PRN IVPB FEVER Last administered on 10/07/16 17:14; Admin Dose 400 MLS/HR; Start at 22:00 Vancomycin HCl (Vancomycin Oral Syringe) 250 mg Q6 PO Last administered on 17:15; Admin Dose 250 MG; Start 09/26/16 at 18:00; Status Future Hold Lactobacillus Acidoph/Bulgaricus (Floranex) 1 tab TID PO Last administered on 13:22; Admin Dose 1 TAB; Start 09/26/16 at 21:00; Status Future Hold Atorvastatin Calcium (Lipitor) 20 mg QHS GTB Last administered on 10/05/16 21: 42; Admin Dose 20 MG; Start 09/28/16 at 21:00; Status Future Hold Finasteride (Proscar) 5 mg DAILY GTB Last administered on 10/06/16 09:12; Admin Dose 5 MG; Start 09/29/16 at 09:00; Status Future Hold Multivitamins Therapeutic (Theragran) 1 tab DAILY GTB Last administered on 09:12; Admin Dose 1 TAB; Start 09/29/16 at 09:00; Status Future Hold Zinc Sulfate (Zinc Sulfate) 220 mg DAILY NGT Last administered on 10/06/16 09: 13; Admin Dose 220 MG; Start 09/29/16 at 09:00; Status Future Hold Ondansetron HCl (Zofran Inj) 4 mg Q6H PRN IV NAUSEA AND/OR VOMITING Last administered on 10/13/16 16:10; Admin Dose 4 MG; Start 09/29/16 at 07:30 Heparin Sodium (Porcine) (Heparin (5000 Units/0.5 ml)) 5,000 unit BID SC Last administered on 10/16/16 10:39; Admin Dose 5,000 UNIT; Start 09/29/16 at 09:00 Acetaminophen 650 mg 650 mg Q6H PRN GTB PAIN AND OR ELEVATED TEMP Last administered on 10/10/16 20:23; Admin Dose 650 MG; Start 10/02/16 at 08:00 Metronidazole (Flagyl 500 Mg (Pmx)) 100 ml @ 100 mls/hr Q8 IVPB Last administered on 10/16/16 14:37; Admin Dose 100 MLS/HR; Start 10/02/16 at 14:00 Midodrine 10 mg 10 mg TID@,,17 PO Last administered on 10/06/16 17:15; Admin Dose 10 MG; Start 10/06/16 at 01:00; Status Future Hold Linezolid (Zyvox 600mg/D5W (Pmx)) 300 ml @ 300 mls/hr Q12 IVPB Last administered on 10/16/16 10:00; Admin Dose 300 MLS/HR; Start 10/06/16 at 21:00 Levothyroxine Sodium (Synthroid Iv) 12.5 mcg DAILY@06 IV Last administered on 05:15; Admin Dose 12.5 MCG; Start 10/07/16 at 06:00 Metoclopramide HCl (Reglan) 5 mg Q8 IV Last administered on 10/16/16 14:37; Admin Dose 5 MG; Start 10/06/16 at 22:00 Voriconazole 200 mg 200 mg BID PO Last administered on 10/16/16 10:19; Admin Dose 200 MG; Start 10/08/16 at 21:00 Colistimethate Sodium/Sodium Chloride (Coly-Mycin/NS) 100 ml @ 200 mls/hr Q12 IVPB Last administered on 10/16/16 10:19; Admin Dose 200 MLS/HR; Start at 13:30 HUGO DIAZ MD Oct 16, 2016 14:42
--- NOTE | 2016-10-16 15:04 | PN ---
Date/Time of Note Date/Time of Note DATE: 10/16/16 TIME: 15:02 Assessment/Plan VTE Prophylaxis VTE Prophylaxis Intervention: heparin Lines/Catheters [facility] Central Line Central line still needed: Yes Urinary Cath still in place: Yes Reason Cath still needed: other (indicate) (monitor I&O) Assessment/Plan Chief Complaint/Hosp Course assessment and plan 1. Sepsis secondary to infected sacral decubitus ulcers with multiple organisms including Klebsiella pneumonia, Acinetobacter baumannii, VRE, staph aureus. ID following. Continue antibiotics. remains off pressors at this time. 2. Sacral decubitus ulcer with infection. Continue with wound care. Continue with analgesics as needed. on abx. Continue with surgeon recommendation 3. Acute renal insufficiency. Stable at present. Avoid nephrotoxic medications.continue with nephrology recs 4. Chronic respiratory failure. Systems Eng on the case. Continue bronchodilators and pulmonary hygiene. Stable 5. 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 On antibiotics. Continuing wound care. surgeon following 6. Encephalopathy (chronic). Continue to turn every 2 hours as needed. Continue with aspiration precautions 7. Hypothyroidism. Continue on Synthroid 8. Dysphagia. Continue aspiration precautions. We'll graduate PEG tube feedings as tolerated 9. Anemia of chronic disease. H&H remained stable. We'll monitor 10. Leukocytosis with thrombocytosis. Oncologist/central station operator following. Continued recommendations 11. Ileus. Was reported to be resolved. tube feedings as tolerated DVT prophylaxis: Heparin Disposition and plan: No apparent distress. Case management following. Awaiting SNF versus [facility] transfer. Will follow up Discussed plan of care with Dr. Mullins Problems: Subjective 24 Hr Interval Summary Free Text/Dictation Remains on mechanical ventilation. No apparent distress seen at this time Exam/Review of Systems Vital Signs Vitals Vital Signs Date Time Temp Pulse Resp B/P Pulse Ox O2 Delivery O2 Flow Rate FiO2 10/16/16 13:00 114 23 99 30 10/16/16 12:52 94/57 10/16/16 12:00 98.5 10/15/16 19:00 Mechanical Ventilator Intake and Output 10/15/16 10/15/16 10/16/16 15:00 23:00 07:00 Intake Total 1480 ml 675 ml 400 ml Output Total 680 ml 470 ml 600 ml Balance 800 ml 205 ml -200 ml Exam General: No apparent distress. No purposeful response. no distress. Appears comfortable at present Eyes: Equal round. Neck: Tracheostomy in place Cardiac: Remains regular rate. Noted with heart murmur Pulmonary: No wheezing or rhonchi. Remains on mechanical ventilation GI: PEG tube in place. Is distended and slightly firm on palpation (likely anasarca). His little less today Extremities: Edema noted bilateral lower extremities as well as upper extremities still Skin: decubitus ulcers Neurologic: Alert. No purposeful response Results Result Diagram: 10/16/16 0810 10/16/16 0810 Results 24 hrs Laboratory Tests Test 10/16/16 08:10 White Blood Count 8.6 Red Blood Count 3.57 L Hemoglobin 9.3 L Hematocrit 30.1 L Mean Corpuscular Volume 84.3 Mean Corpuscular Hemoglobin 26.1 L Mean Corpuscular Hemoglobin Concent 30.9 L Red Cell Distribution Width 19.2 H Platelet Count 214 # Mean Platelet Volume 11.6 H Neutrophils % 61.0 Lymphocytes % 24.2 Monocytes % 12.8 H Eosinophils % 1.2 Basophils % 0.3 Nucleated Red Blood Cells % 0.0 Neutrophils # 5.2 Lymphocytes # 2.1 Monocytes # 1.1 H Eosinophils # 0.1 Basophils # 0.0 Nucleated Red Blood Cells # 0.0 Sodium Level 133 L Potassium Level 4.8 Chloride Level 106 Carbon Dioxide Level 22 Anion Gap 10 Blood Urea Nitrogen 16 Creatinine 0.46 L Glucose Level 86 Calcium Level 6.9 L Medications Medications Current Medications Acetaminophen (Tylenol Supp) 650 mg Q4H PRN [place] PAIN LEVEL 1-3 OR FEVER; Start 09/24/16 at 03:00 Eye Lubricant (Artificial Tears Oph) 1 drop TID BOTH EYES Last administered on 10/16/16 13:00; Admin Dose 1 DROP; Start 09/24/16 at 09:00 Sodium Hypochlorite (Dakin'S (1/4 Strength)) 1 applic BID IRR Last administered on 10/16/16 09:00; Admin Dose 1 APPLIC; Start 09/24/16 at 21:00 Pantoprazole (Protonix Iv) 40 mg BID@06,18 IV Last administered on 10/16/16 05 :15; Admin Dose 40 MG; Start 09/24/16 at 18:00 Collagenase (Santyl) 1 applic DAILY TOP Last administered on 10/15/16 09:01; Admin Dose 1 APPLIC; Start 09/24/16 at 20:30 Miscellaneous Information 1 ea NOTE XX ; Start 09/24/16 at 21:00 Glucose (Glutose) 15 gm Q15M PRN PO DECREASED GLUCOSE; Start 09/24/16 at 21:00 Glucose (Glutose) 22.5 gm Q15M PRN PO DECREASED GLUCOSE; Start 09/24/16 at 21: 00 Dextrose (D50w Syringe) 25 ml Q15M PRN IV DECREASED GLUCOSE; Start 09/24/16 at 21:00 Dextrose (D50w Syringe) 50 ml Q15M PRN IV DECREASED GLUCOSE; Start 09/24/16 at 21:00 Glucagon (Glucagen) 1 mg Q15M PRN IM DECREASED GLUCOSE; Start 09/24/16 at 21:00 Glucose 15 gm 15 gm Q15M PRN BUCCAL DECREASED GLUCOSE; Start 09/24/16 at 21:00 Acetaminophen (Ofirmev 1000mg/ 100ml Iv) 100 ml @ 400 mls/hr Q6H PRN IVPB FEVER Last administered on 10/07/16 17:14; Admin Dose 400 MLS/HR; Start at 22:00 Vancomycin HCl (Vancomycin Oral Syringe) 250 mg Q6 PO Last administered on 17:15; Admin Dose 250 MG; Start 09/26/16 at 18:00; Status Future Hold Lactobacillus Acidoph/Bulgaricus (Floranex) 1 tab TID PO Last administered on 13:22; Admin Dose 1 TAB; Start 09/26/16 at 21:00; Status Future Hold Atorvastatin Calcium (Lipitor) 20 mg QHS GTB Last administered on 10/05/16 21: 42; Admin Dose 20 MG; Start 09/28/16 at 21:00; Status Future Hold Finasteride (Proscar) 5 mg DAILY GTB Last administered on 10/06/16 09:12; Admin Dose 5 MG; Start 09/29/16 at 09:00; Status Future Hold Multivitamins Therapeutic (Theragran) 1 tab DAILY GTB Last administered on 09:12; Admin Dose 1 TAB; Start 09/29/16 at 09:00; Status Future Hold Zinc Sulfate (Zinc Sulfate) 220 mg DAILY NGT Last administered on 10/06/16 09: 13; Admin Dose 220 MG; Start 09/29/16 at 09:00; Status Future Hold Ondansetron HCl (Zofran Inj) 4 mg Q6H PRN IV NAUSEA AND/OR VOMITING Last administered on 10/13/16 16:10; Admin Dose 4 MG; Start 09/29/16 at 07:30 Heparin Sodium (Porcine) (Heparin (5000 Units/0.5 ml)) 5,000 unit BID SC Last administered on 10/16/16 10:39; Admin Dose 5,000 UNIT; Start 09/29/16 at 09:00 Acetaminophen 650 mg 650 mg Q6H PRN GTB PAIN AND OR ELEVATED TEMP Last administered on 10/10/16 20:23; Admin Dose 650 MG; Start 10/02/16 at 08:00 Metronidazole (Flagyl 500 Mg (Pmx)) 100 ml @ 100 mls/hr Q8 IVPB Last administered on 10/16/16 14:37; Admin Dose 100 MLS/HR; Start 10/02/16 at 14:00 Midodrine 10 mg 10 mg TID@,,17 PO Last administered on 10/06/16 17:15; Admin Dose 10 MG; Start 10/06/16 at 01:00; Status Future Hold Linezolid (Zyvox 600mg/D5W (Pmx)) 300 ml @ 300 mls/hr Q12 IVPB Last administered on 10/16/16 10:00; Admin Dose 300 MLS/HR; Start 10/06/16 at 21:00 Levothyroxine Sodium (Synthroid Iv) 12.5 mcg DAILY@06 IV Last administered on 05:15; Admin Dose 12.5 MCG; Start 10/07/16 at 06:00 Metoclopramide HCl (Reglan) 5 mg Q8 IV Last administered on 10/16/16 14:37; Admin Dose 5 MG; Start 10/06/16 at 22:00 Voriconazole 200 mg 200 mg BID PO Last administered on 10/16/16 10:19; Admin Dose 200 MG; Start 10/08/16 at 21:00 Colistimethate Sodium/Sodium Chloride (Coly-Mycin/NS) 100 ml @ 200 mls/hr Q12 IVPB Last administered on 10/16/16t 10:19; Admin Dose 200 MLS/HR; Start at 13:30 TAMMIE RIBERA Oct 16, 2016 15:04
--- NOTE | 2016-10-16 16:38 | CONS ---
Date/Time of Note Date/Time of Note DATE: 10/16/16 TIME: 16:36 Assessment/Plan Assessment/Plan Chief Complaint/Hosp Course SUBJECTIVE: No events. The patient remains on Low dose Levophed gtt. No fevers , nad. INDWELLINGS: Trach, PEG, Cee, left chest triple lumen catheter. ANTIMICROBIALS: 1. Voriconazole. 2. Topical Bactroban to nares. 3. Zyvox. 4. Colistin. 5. Flagyl. PHYSICAL EXAMINATION: GENERAL: This is a chronically ill-appearing, elderly man who is awake, lying comfortably in bed. HEENT: Head atraumatic, normocephalic. Sclerae anicteric. Buccal mucosa dry. NECK: Supple. Tracheostomy present. CHEST: Rise symmetrical. Breath sounds diminished to bases. HEART: S1, S2. ABDOMEN: Soft, bowel tones present. EXTREMITIES: No cyanosis. Bilateral trace edema and multiple wounds. SKIN: With anasarca. ASSESSMENT: 1. S/p septic shock. 2. Resolving pneumonia. 3. Persistent UTI with E coli on admission and repeat urine culture growing Teresita glabrata. 4. Status post Escherichia coli and Bacteroides fragilis bacteremia on admission. 5. 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 6. History of severe pseudomembranous colitis. 7. Ileus. 8. Persistent diarrhea. PLAN: Continues to improve, more awake, no fevers. Continue present care, abx, wound care per surgical rec-s. Possible debridement DW staff Problems: Consultation Date/Type/Reason Admit Date/Time Sep 24, 2016 at 03:19 Initial Consult Date 09/24/16 Type of Consultation: ID Referring Provider: FELIX BLAKE DO Exam/Review of Systems Vital Signs Vitals Vital Signs Date Time Temp Pulse Resp B/P Pulse Ox O2 Delivery O2 Flow Rate FiO2 10/16/16 16:17 30 10/16/16 15:37 98.9 122 16 94/52 97 10/15/16 19:00 Mechanical Ventilator Intake and Output 10/15/16 10/15/16 10/16/16 15:00 23:00 07:00 Intake Total 1480 ml 675 ml 400 ml Output Total 680 ml 470 ml 600 ml Balance 800 ml 205 ml -200 ml Results Result Diagram: 10/16/16 0810 10/16/16 0810 Results 24 hrs Laboratory Tests Test 10/16/16 08:10 White Blood Count 8.6 Red Blood Count 3.57 L Hemoglobin 9.3 L Hematocrit 30.1 L Mean Corpuscular Volume 84.3 Mean Corpuscular Hemoglobin 26.1 L Mean Corpuscular Hemoglobin Concent 30.9 L Red Cell Distribution Width 19.2 H Platelet Count 214 # Mean Platelet Volume 11.6 H Neutrophils % 61.0 Lymphocytes % 24.2 Monocytes % 12.8 H Eosinophils % 1.2 Basophils % 0.3 Nucleated Red Blood Cells % 0.0 Neutrophils # 5.2 Lymphocytes # 2.1 Monocytes # 1.1 H Eosinophils # 0.1 Basophils # 0.0 Nucleated Red Blood Cells # 0.0 Sodium Level 133 L Potassium Level 4.8 Chloride Level 106 Carbon Dioxide Level 22 Anion Gap 10 Blood Urea Nitrogen 16 Creatinine 0.46 L Glucose Level 86 Calcium Level 6.9 L Medications Medications Current Medications Acetaminophen (Tylenol Supp) 650 mg Q4H PRN [place] PAIN LEVEL 1-3 OR FEVER; Start 09/24/16 at 03:00 Eye Lubricant (Artificial Tears Oph) 1 drop TID BOTH EYES Last administered on 10/16/16 13:00; Admin Dose 1 DROP; Start 09/24/16 at 09:00 Sodium Hypochlorite (Dakin'S (1/4 Strength)) 1 applic BID IRR Last administered on 10/16/16 09:00; Admin Dose 1 APPLIC; Start 09/24/16 at 21:00 Pantoprazole (Protonix Iv) 40 mg BID@06,18 IV Last administered on 10/16/16 05 :15; Admin Dose 40 MG; Start 09/24/16 at 18:00 Collagenase (Santyl) 1 applic DAILY TOP Last administered on 10/15/16 09:01; Admin Dose 1 APPLIC; Start 09/24/16 at 20:30 Miscellaneous Information 1 ea NOTE XX ; Start 09/24/16 at 21:00 Glucose (Glutose) 15 gm Q15M PRN PO DECREASED GLUCOSE; Start 09/24/16 at 21:00 Glucose (Glutose) 22.5 gm Q15M PRN PO DECREASED GLUCOSE; Start 09/24/16 at 21: 00 Dextrose (D50w Syringe) 25 ml Q15M PRN IV DECREASED GLUCOSE; Start 09/24/16 at 21:00 Dextrose (D50w Syringe) 50 ml Q15M PRN IV DECREASED GLUCOSE; Start 09/24/16 at 21:00 Glucagon (Glucagen) 1 mg Q15M PRN IM DECREASED GLUCOSE; Start 09/24/16 at 21:00 Glucose 15 gm 15 gm Q15M PRN BUCCAL DECREASED GLUCOSE; Start 09/24/16 at 21:00 Acetaminophen (Ofirmev 1000mg/ 100ml Iv) 100 ml @ 400 mls/hr Q6H PRN IVPB FEVER Last administered on 10/07/16 17:14; Admin Dose 400 MLS/HR; Start at 22:00 Vancomycin HCl (Vancomycin Oral Syringe) 250 mg Q6 PO Last administered on 17:15; Admin Dose 250 MG; Start 09/26/16 at 18:00; Status Future Hold Lactobacillus Acidoph/Bulgaricus (Floranex) 1 tab TID PO Last administered on 13:22; Admin Dose 1 TAB; Start 09/26/16 at 21:00; Status Future Hold Atorvastatin Calcium (Lipitor) 20 mg QHS GTB Last administered on 10/05/16 21: 42; Admin Dose 20 MG; Start 09/28/16 at 21:00; Status Future Hold Finasteride (Proscar) 5 mg DAILY GTB Last administered on 10/06/16 09:12; Admin Dose 5 MG; Start 09/29/16 at 09:00; Status Future Hold Multivitamins Therapeutic (Theragran) 1 tab DAILY GTB Last administered on 09:12; Admin Dose 1 TAB; Start 09/29/16 at 09:00; Status Future Hold Zinc Sulfate (Zinc Sulfate) 220 mg DAILY NGT Last administered on 10/06/16 09: 13; Admin Dose 220 MG; Start 09/29/16 at 09:00; Status Future Hold Ondansetron HCl (Zofran Inj) 4 mg Q6H PRN IV NAUSEA AND/OR VOMITING Last administered on 10/13/16 16:10; Admin Dose 4 MG; Start 09/29/16 at 07:30 Heparin Sodium (Porcine) (Heparin (5000 Units/0.5 ml)) 5,000 unit BID SC Last administered on 10/16/16 10:39; Admin Dose 5,000 UNIT; Start 09/29/16 at 09:00 Acetaminophen 650 mg 650 mg Q6H PRN GTB PAIN AND OR ELEVATED TEMP Last administered on 10/10/16 20:23; Admin Dose 650 MG; Start 10/02/16 at 08:00 Metronidazole (Flagyl 500 Mg (Pmx)) 100 ml @ 100 mls/hr Q8 IVPB Last administered on 10/16/16 14:37; Admin Dose 100 MLS/HR; Start 10/02/16 at 14:00 Midodrine 10 mg 10 mg TID@,,17 PO Last administered on 10/06/16 17:15; Admin Dose 10 MG; Start 10/06/16 at 01:00; Status Future Hold Linezolid (Zyvox 600mg/D5W (Pmx)) 300 ml @ 300 mls/hr Q12 IVPB Last administered on 10/16/16 10:00; Admin Dose 300 MLS/HR; Start 10/06/16 at 21:00 Levothyroxine Sodium (Synthroid Iv) 12.5 mcg DAILY@06 IV Last administered on 05:15; Admin Dose 12.5 MCG; Start 10/07/16 at 06:00 Metoclopramide HCl (Reglan) 5 mg Q8 IV Last administered on 10/16/16 14:37; Admin Dose 5 MG; Start 10/06/16 at 22:00 Voriconazole 200 mg 200 mg BID PO Last administered on 10/16/16 10:19; Admin Dose 200 MG; Start 10/08/16 at 21:00 Colistimethate Sodium/Sodium Chloride (Coly-Mycin/NS) 100 ml @ 200 mls/hr Q12 IVPB Last administered on 10/16/16 10:19; Admin Dose 200 MLS/HR; Start at 13:30 CHIRSTOPHER MCDONOUGH NP Oct 16, 2016 16:38
--- NOTE | 2016-10-16 23:44 | CONS ---
Date/Time of Note Date/Time of Note DATE: 10/16/16 TIME: 23:43 Assessment/Plan Assessment/Plan Chief Complaint/Hosp Course ANEMIA - NEAR- MICROCYTIC WITH INCREASED RDW DROP H/H DURING HOSPITALIZATION + ACD TRANSFUSE PRBC TO KEEP HB MORE THAN 8 TRANSFUSE NEEDED GI F-UP Stool OB, negative Monitor H&H, transfuse 2 units for hemoglobin less than 8 LEUKOCYTOSIS- REACTIVE CONT ATB FOR SEPSIS THROMBOCYTOSIS REACTIVE SHOULD IMPROVE WITH RESOLUTION OF SEPSIS Severe sepsis with septic shock 2/2 Decub ulcers and/or UTI and/or PNA: stable, off pressor support Severe hypernatremic dehydration Acute renal failure 2/2 ATN from dehydration UTI Multifocal pneumonia Encephalopathy ?acute versus acute on chronic (baseline unknown) Hypokalemia Problems: Consultation Date/Type/Reason Admit Date/Time Sep 24, 2016 at 03:19 Initial Consult Date 09/24/16 Type of Consultation: [facility] Referring Provider: FELIX BLAKE DO 24 HR Interval Summary Free Text/Dictation ALL NOTED TRANSFERRED TO TELE Exam/Review of Systems Vital Signs Vitals Vital Signs Date Time Temp Pulse Resp B/P Pulse Ox O2 Delivery O2 Flow Rate FiO2 10/16/16 20:42 112 10/16/16 20:27 99.0 18 108/65 98 10/16/16 16:44 30 10/15/16 19:00 Mechanical Ventilator Intake and Output 10/15/16 10/15/16 10/16/16 15:00 23:00 07:00 Intake Total 1480 ml 675 ml 400 ml Output Total 680 ml 470 ml 600 ml Balance 800 ml 205 ml -200 ml Exam General: No apparent distress. No purposeful response. no distress Eyes: Equal round. Neck: Tracheostomy in place Cardiac: Remains regular rate. Noted with heart murmur Pulmonary: [No obvious adventitious lung sounds still. Remains on mechanical ventilation GI: PEG tube in place. Is distended and slightly firm on palpation (likely anasarca) Extremities: Edema noted bilateral lower extremities as well as upper extremities Skin: decubitus ulcers Neurologic: Alert. No purposeful response Results Result Diagram: 10/16/16 0810 10/16/16 0810 Results 24 hrs Laboratory Tests Test 10/16/16 08:10 White Blood Count 8.6 Red Blood Count 3.57 L Hemoglobin 9.3 L Hematocrit 30.1 L Mean Corpuscular Volume 84.3 Mean Corpuscular Hemoglobin 26.1 L Mean Corpuscular Hemoglobin Concent 30.9 L Red Cell Distribution Width 19.2 H Platelet Count 214 # Mean Platelet Volume 11.6 H Neutrophils % 61.0 Lymphocytes % 24.2 Monocytes % 12.8 H Eosinophils % 1.2 Basophils % 0.3 Nucleated Red Blood Cells % 0.0 Neutrophils # 5.2 Lymphocytes # 2.1 Monocytes # 1.1 H Eosinophils # 0.1 Basophils # 0.0 Nucleated Red Blood Cells # 0.0 Sodium Level 133 L Potassium Level 4.8 Chloride Level 106 Carbon Dioxide Level 22 Anion Gap 10 Blood Urea Nitrogen 16 Creatinine 0.46 L Glucose Level 86 Calcium Level 6.9 L Medications Medications Current Medications Acetaminophen (Tylenol Supp) 650 mg Q4H PRN [place] PAIN LEVEL 1-3 OR FEVER; Start 09/24/16 at 03:00 Eye Lubricant (Artificial Tears Oph) 1 drop TID BOTH EYES Last administered on 10/16/16 13:00; Admin Dose 1 DROP; Start 09/24/16 at 09:00 Sodium Hypochlorite (Dakin'S (1/4 Strength)) 1 applic BID IRR Last administered on 10/16/16 09:00; Admin Dose 1 APPLIC; Start 09/24/16 at 21:00 Pantoprazole (Protonix Iv) 40 mg BID@06,18 IV Last administered on 10/16/16 17 :59; Admin Dose 40 MG; Start 09/24/16 at 18:00 Collagenase (Santyl) 1 applic DAILY TOP Last administered on 10/15/16 09:01; Admin Dose 1 APPLIC; Start 09/24/16 at 20:30 Miscellaneous Information 1 ea NOTE XX ; Start 09/24/16 at 21:00 Glucose (Glutose) 15 gm Q15M PRN PO DECREASED GLUCOSE; Start 09/24/16 at 21:00 Glucose (Glutose) 22.5 gm Q15M PRN PO DECREASED GLUCOSE; Start 09/24/16 at 21: 00 Dextrose (D50w Syringe) 25 ml Q15M PRN IV DECREASED GLUCOSE; Start 09/24/16 at 21:00 Dextrose (D50w Syringe) 50 ml Q15M PRN IV DECREASED GLUCOSE; Start 09/24/16 at 21:00 Glucagon (Glucagen) 1 mg Q15M PRN IM DECREASED GLUCOSE; Start 09/24/16 at 21:00 Glucose 15 gm 15 gm Q15M PRN BUCCAL DECREASED GLUCOSE; Start 09/24/16 at 21:00 Acetaminophen (Ofirmev 1000mg/ 100ml Iv) 100 ml @ 400 mls/hr Q6H PRN IVPB FEVER Last administered on 10/07/16 17:14; Admin Dose 400 MLS/HR; Start at 22:00 Vancomycin HCl (Vancomycin Oral Syringe) 250 mg Q6 PO Last administered on 17:15; Admin Dose 250 MG; Start 09/26/16 at 18:00; Status Future Hold Lactobacillus Acidoph/Bulgaricus (Floranex) 1 tab TID PO Last administered on 13:22; Admin Dose 1 TAB; Start 09/26/16 at 21:00; Status Future Hold Atorvastatin Calcium (Lipitor) 20 mg QHS GTB Last administered on 10/05/16 21: 42; Admin Dose 20 MG; Start 09/28/16 at 21:00; Status Future Hold Finasteride (Proscar) 5 mg DAILY GTB Last administered on 10/06/16 09:12; Admin Dose 5 MG; Start 09/29/16 at 09:00; Status Future Hold Multivitamins Therapeutic (Theragran) 1 tab DAILY GTB Last administered on 09:12; Admin Dose 1 TAB; Start 09/29/16 at 09:00; Status Future Hold Zinc Sulfate (Zinc Sulfate) 220 mg DAILY NGT Last administered on 10/06/16 09: 13; Admin Dose 220 MG; Start 09/29/16 at 09:00; Status Future Hold Ondansetron HCl (Zofran Inj) 4 mg Q6H PRN IV NAUSEA AND/OR VOMITING Last administered on 10/13/16 16:10; Admin Dose 4 MG; Start 09/29/16 at 07:30 Heparin Sodium (Porcine) (Heparin (5000 Units/0.5 ml)) 5,000 unit BID SC Last administered on 10/16/16 20:34; Admin Dose 5,000 UNIT; Start 09/29/16 at 09:00 Acetaminophen 650 mg 650 mg Q6H PRN GTB PAIN AND OR ELEVATED TEMP Last administered on 10/10/16 20:23; Admin Dose 650 MG; Start 10/02/16 at 08:00 Metronidazole (Flagyl 500 Mg (Pmx)) 100 ml @ 100 mls/hr Q8 IVPB Last administered on 10/16/16 21:39; Admin Dose 100 MLS/HR; Start 10/02/16 at 14:00 Midodrine 10 mg 10 mg TID@,,17 PO Last administered on 10/06/16 17:15; Admin Dose 10 MG; Start 10/06/16 at 01:00; Status Future Hold Linezolid (Zyvox 600mg/D5W (Pmx)) 300 ml @ 300 mls/hr Q12 IVPB Last administered on 10/16/16 20:30; Admin Dose 300 MLS/HR; Start 10/06/16 at 21:00 Levothyroxine Sodium (Synthroid Iv) 12.5 mcg DAILY@06 IV Last administered on 05:15; Admin Dose 12.5 MCG; Start 10/07/16 at 06:00 Metoclopramide HCl (Reglan) 5 mg Q8 IV Last administered on 10/16/16 21:39; Admin Dose 5 MG; Start 10/06/16 at 22:00 Voriconazole 200 mg 200 mg BID PO Last administered on 10/16/16 10:19; Admin Dose 200 MG; Start 10/08/16 at 21:00 Colistimethate Sodium/Sodium Chloride (Coly-Mycin/NS) 100 ml @ 200 mls/hr Q12 IVPB Last administered on 10/16/16 20:30; Admin Dose 200 MLS/HR; Start at 13:30 SCOTT RODRIGUES MD Oct 16, 2016 23:44
[2016-10-17] VITALS (24 sets, daily range): BP systolic 90–111; BP diastolic 52–61; PULSE 112–120; RESP 14–30
[2016-10-17] MEDS: ALBUTEROL HFA 8 GM INHALER INH SCH ×4 (01:21→20:06)
[2016-10-17] MEDS: IPRATROPIUM (HFA) 12.9 GM INHALER INH SCH ×4 (01:22→20:06)
[2016-10-17] MEDS: METOCLOPRAMIDE 10 MG INJ IV SCH ×3 (05:36→21:36)
[2016-10-17] MEDS: PANTOPRAZOLE 40 MG INJ IV SCH ×2 (05:36→17:10)
[2016-10-17] MEDS: LEVOTHYROXINE 100 MCG VIAL IV SCH (05:36)
[2016-10-17] MEDS: metroNIDAZOLE 500 MG/NS (PMX) 100 ML IVPB SCH ×3 (05:36→23:09)
--- NOTE | 2016-10-17 08:05 | PN ---
Date/Time of Note Date/Time of Note DATE: 10/17/16 TIME: 08:04 Assessment/Plan VTE Prophylaxis VTE Prophylaxis Intervention: SCD's Lines/Catheters IV Catheter Type (from Nrsg): Central Line Central line still needed: No Urinary Cath still in place: Yes Reason Cath still needed: urinary retention Assessment/Plan Chief Complaint/Hosp Course The patient with no cahgne Problems: Assessment/Plan Severe septic shock Preserved ejection fraction Moderate aortic stenosis Respiratory failure/Tracheostomy Coronary artery disease Anemia Acute kidney injury >resolved -Patient off IV pressors -antibiotics as per infectious disease -withhold any antihypertensives at the current time given recent sepsis. Subjective 24 Hr Interval Summary Free Text/Dictation The patient wiht no change Exam/Review of Systems Vital Signs Vitals Vital Signs Date Time Temp Pulse Resp B/P Pulse Ox O2 Delivery O2 Flow Rate FiO2 10/17/16 07:59 99.7 114 16 100/52 97 10/17/16 06:13 30 10/15/16 19:00 Mechanical Ventilator Intake and Output 10/16/16 10/16/16 10/17/16 15:00 23:00 07:00 Intake Total 680 ml 600 ml Output Total 400 ml 500 ml Balance 280 ml 100 ml Results Result Diagram: 10/16/16 0810 10/16/16 0810 Results 24 hrs Laboratory Tests Test 10/16/16 08:10 White Blood Count 8.6 Red Blood Count 3.57 L Hemoglobin 9.3 L Hematocrit 30.1 L Mean Corpuscular Volume 84.3 Mean Corpuscular Hemoglobin 26.1 L Mean Corpuscular Hemoglobin Concent 30.9 L Red Cell Distribution Width 19.2 H Platelet Count 214 # Mean Platelet Volume 11.6 H Neutrophils % 61.0 Lymphocytes % 24.2 Monocytes % 12.8 H Eosinophils % 1.2 Basophils % 0.3 Nucleated Red Blood Cells % 0.0 Neutrophils # 5.2 Lymphocytes # 2.1 Monocytes # 1.1 H Eosinophils # 0.1 Basophils # 0.0 Nucleated Red Blood Cells # 0.0 Sodium Level 133 L Potassium Level 4.8 Chloride Level 106 Carbon Dioxide Level 22 Anion Gap 10 Blood Urea Nitrogen 16 Creatinine 0.46 L Glucose Level 86 Calcium Level 6.9 L Medications Medications Current Medications Acetaminophen (Tylenol Supp) 650 mg Q4H PRN [place] PAIN LEVEL 1-3 OR FEVER; Start 09/24/16 at 03:00 Eye Lubricant (Artificial Tears Oph) 1 drop TID BOTH EYES Last administered on 10/16/16 13:00; Admin Dose 1 DROP; Start 09/24/16 at 09:00 Sodium Hypochlorite (Dakin'S (1/4 Strength)) 1 applic BID IRR Last administered on 10/16/16 09:00; Admin Dose 1 APPLIC; Start 09/24/16 at 21:00 Pantoprazole (Protonix Iv) 40 mg BID@06,18 IV Last administered on 10/17/16 05 :36; Admin Dose 40 MG; Start 09/24/16 at 18:00 Collagenase (Santyl) 1 applic DAILY TOP Last administered on 10/15/16 09:01; Admin Dose 1 APPLIC; Start 09/24/16 at 20:30 Miscellaneous Information 1 ea NOTE XX ; Start 09/24/16 at 21:00 Glucose (Glutose) 15 gm Q15M PRN PO DECREASED GLUCOSE; Start 09/24/16 at 21:00 Glucose (Glutose) 22.5 gm Q15M PRN PO DECREASED GLUCOSE; Start 09/24/16 at 21: 00 Dextrose (D50w Syringe) 25 ml Q15M PRN IV DECREASED GLUCOSE; Start 09/24/16 at 21:00 Dextrose (D50w Syringe) 50 ml Q15M PRN IV DECREASED GLUCOSE; Start 09/24/16 at 21:00 Glucagon (Glucagen) 1 mg Q15M PRN IM DECREASED GLUCOSE; Start 09/24/16 at 21:00 Glucose 15 gm 15 gm Q15M PRN BUCCAL DECREASED GLUCOSE; Start 09/24/16 at 21:00 Acetaminophen (Ofirmev 1000mg/ 100ml Iv) 100 ml @ 400 mls/hr Q6H PRN IVPB FEVER Last administered on 10/07/16 17:14; Admin Dose 400 MLS/HR; Start at 22:00 Vancomycin HCl (Vancomycin Oral Syringe) 250 mg Q6 PO Last administered on 17:15; Admin Dose 250 MG; Start 09/26/16 at 18:00; Status Future Hold Lactobacillus Acidoph/Bulgaricus (Floranex) 1 tab TID PO Last administered on 13:22; Admin Dose 1 TAB; Start 09/26/16 at 21:00; Status Future Hold Atorvastatin Calcium (Lipitor) 20 mg QHS GTB Last administered on 10/05/16 21: 42; Admin Dose 20 MG; Start 09/28/16 at 21:00; Status Future Hold Finasteride (Proscar) 5 mg DAILY GTB Last administered on 10/06/16 09:12; Admin Dose 5 MG; Start 09/29/16 at 09:00; Status Future Hold Multivitamins Therapeutic (Theragran) 1 tab DAILY GTB Last administered on 09:12; Admin Dose 1 TAB; Start 09/29/16 at 09:00; Status Future Hold Zinc Sulfate (Zinc Sulfate) 220 mg DAILY NGT Last administered on 10/06/16 09: 13; Admin Dose 220 MG; Start 09/29/16 at 09:00; Status Future Hold Ondansetron HCl (Zofran Inj) 4 mg Q6H PRN IV NAUSEA AND/OR VOMITING Last administered on 10/13/16 16:10; Admin Dose 4 MG; Start 09/29/16 at 07:30 Heparin Sodium (Porcine) (Heparin (5000 Units/0.5 ml)) 5,000 unit BID SC Last administered on 10/16/16 20:34; Admin Dose 5,000 UNIT; Start 09/29/16 at 09:00 Acetaminophen 650 mg 650 mg Q6H PRN GTB PAIN AND OR ELEVATED TEMP Last administered on 10/10/16 20:23; Admin Dose 650 MG; Start 10/02/16 at 08:00 Metronidazole (Flagyl 500 Mg (Pmx)) 100 ml @ 100 mls/hr Q8 IVPB Last administered on 10/17/16 05:36; Admin Dose 100 MLS/HR; Start 10/02/16 at 14:00 Midodrine 10 mg 10 mg TID@, PO Last administered on 10/06/16 17:15; Admin Dose 10 MG; Start 10/06/16 at 01:00; Status Future Hold Linezolid (Zyvox 600mg/D5W (Pmx)) 300 ml @ 300 mls/hr Q12 IVPB Last administered on 10/16/16 20:30; Admin Dose 300 MLS/HR; Start 10/06/16 at 21:00 Levothyroxine Sodium (Synthroid Iv) 12.5 mcg DAILY@06 IV Last administered on 05:36; Admin Dose 12.5 MCG; Start 10/07/16 at 06:00 Metoclopramide HCl (Reglan) 5 mg Q8 IV Last administered on 10/17/16 05:36; Admin Dose 5 MG; Start 10/06/16 at 22:00 Voriconazole 200 mg 200 mg BID PO Last administered on 10/16/16 10:19; Admin Dose 200 MG; Start 10/08/16 at 21:00 Colistimethate Sodium/Sodium Chloride (Coly-Mycin/NS) 100 ml @ 200 mls/hr Q12 IVPB Last administered on 10/16/16 20:30; Admin Dose 200 MLS/HR; Start at 13:30 HUGO DIAZ MD Oct 17, 2016 08:04
--- NOTE | 2016-10-17 08:49 | CONS ---
Date/Time of Note Date/Time of Note DATE: 10/17/16 TIME: 08:47 Assessment/Plan Assessment/Plan Additional Assessment/Plan 1. Acute kidney injury on chronic kidney disease. due to ATN from septic shock 2. septic shock on levophed 3. severe metabolic acidosis on bicarbonate drip 5. History of chronic respiratory failure, status post tracheostomy, on ventilator. 6. History of G-tube. 7. Poor mental status due to the previous cerebrovascular accident. 8. History of dementia. 9. History of hypertension. 10. Hypocalcemia with Ca 6.9- likely pseudohypocalcemia, because corrected Ca with Serum albumin of 1.6 is 8.8-no symptoms of hypocalcemia PLAN: IVF discontinued yesterday, BP stable, Continue Tube feeding, NO labs today to review Corrected Ca 8.8, no new orders for hypocalcemia On IV Colistin, need to monitor renal function and K will follow up Consultation Date/Type/Reason Admit Date/Time Sep 24, 2016 at 03:19 Initial Consult Date 09/24/16 Type of Consultation: NEPHROLOGY Referring Provider: FELIX BLAKE DO 24 HR Interval Summary Free Text/Dictation No labs today to review, BP stable, IVF Discontinued yesterday, pt is DNR Exam/Review of Systems Vital Signs Vitals Vital Signs Date Time Temp Pulse Resp B/P Pulse Ox O2 Delivery O2 Flow Rate FiO2 10/17/16 08:21 112 10/17/16 07:59 99.7 16 100/52 97 10/17/16 07:45 30 10/15/16 19:00 Mechanical Ventilator Intake and Output 10/16/16 10/16/16 10/17/16 15:00 23:00 07:00 Intake Total 680 ml 600 ml Output Total 400 ml 500 ml Balance 280 ml 100 ml Exam GENERAL: This is a fragile, chronically ill-appearing, elderly man who is in no distress. HEENT: Head atraumatic, normocephalic. Sclerae anicteric. Buccal mucosa dry. NECK: Supple. Tracheostomy present. CHEST: Rise symmetrical. Breath sounds diminished to bases. HEART: S1, S2. ABDOMEN: Soft, distended. Bowel sounds hypoactive. EXTREMITIES: Bilateral trace edema. SKIN: With multiple infected wounds. Results Result Diagram: 10/16/16 0810 10/16/16 0810 Medications Medications Current Medications Acetaminophen (Tylenol Supp) 650 mg Q4H PRN MA PAIN LEVEL 1-3 OR FEVER; Start 09/24/16 at 03:00 Eye Lubricant (Artificial Tears Oph) 1 drop TID BOTH EYES Last administered on 10/16/16 13:00; Admin Dose 1 DROP; Start 09/24/16 at 09:00 Sodium Hypochlorite (Dakin'S (1/4 Strength)) 1 applic BID IRR Last administered on 10/16/16 09:00; Admin Dose 1 APPLIC; Start 09/24/16 at 21:00 Pantoprazole (Protonix Iv) 40 mg BID@06,18 IV Last administered on 10/17/16 05 :36; Admin Dose 40 MG; Start 09/24/16 at 18:00 Collagenase (Santyl) 1 applic DAILY TOP Last administered on 10/15/16 09:01; Admin Dose 1 APPLIC; Start 09/24/16 at 20:30 Miscellaneous Information 1 ea NOTE XX ; Start 09/24/16 at 21:00 Glucose (Glutose) 15 gm Q15M PRN PO DECREASED GLUCOSE; Start 09/24/16 at 21:00 Glucose (Glutose) 22.5 gm Q15M PRN PO DECREASED GLUCOSE; Start 09/24/16 at 21: 00 Dextrose (D50w Syringe) 25 ml Q15M PRN IV DECREASED GLUCOSE; Start 09/24/16 at 21:00 Dextrose (D50w Syringe) 50 ml Q15M PRN IV DECREASED GLUCOSE; Start 09/24/16 at 21:00 Glucagon (Glucagen) 1 mg Q15M PRN IM DECREASED GLUCOSE; Start 09/24/16 at 21:00 Glucose 15 gm 15 gm Q15M PRN BUCCAL DECREASED GLUCOSE; Start 09/24/16 at 21:00 Acetaminophen (Ofirmev 1000mg/ 100ml Iv) 100 ml @ 400 mls/hr Q6H PRN IVPB FEVER Last administered on 10/07/16 17:14; Admin Dose 400 MLS/HR; Start at 22:00 Vancomycin HCl (Vancomycin Oral Syringe) 250 mg Q6 PO Last administered on 17:15; Admin Dose 250 MG; Start 09/26/16 at 18:00; Status Future Hold Lactobacillus Acidoph/Bulgaricus (Floranex) 1 tab TID PO Last administered on 13:22; Admin Dose 1 TAB; Start 09/26/16 at 21:00; Status Future Hold Atorvastatin Calcium (Lipitor) 20 mg QHS GTB Last administered on 10/05/16 21: 42; Admin Dose 20 MG; Start 09/28/16 at 21:00; Status Future Hold Finasteride (Proscar) 5 mg DAILY GTB Last administered on 10/06/16 09:12; Admin Dose 5 MG; Start 09/29/16 at 09:00; Status Future Hold Multivitamins Therapeutic (Theragran) 1 tab DAILY GTB Last administered on 09:12; Admin Dose 1 TAB; Start 09/29/16 at 09:00; Status Future Hold Zinc Sulfate (Zinc Sulfate) 220 mg DAILY NGT Last administered on 10/06/16 09: 13; Admin Dose 220 MG; Start 09/29/16 at 09:00; Status Future Hold Ondansetron HCl (Zofran Inj) 4 mg Q6H PRN IV NAUSEA AND/OR VOMITING Last administered on 10/13/16 16:10; Admin Dose 4 MG; Start 09/29/16 at 07:30 Heparin Sodium (Porcine) (Heparin (5000 Units/0.5 ml)) 5,000 unit BID SC Last administered on 10/16/16 20:34; Admin Dose 5,000 UNIT; Start 09/29/16 at 09:00 Acetaminophen 650 mg 650 mg Q6H PRN GTB PAIN AND OR ELEVATED TEMP Last administered on 10/10/16 20:23; Admin Dose 650 MG; Start 10/02/16 at 08:00 Metronidazole (Flagyl 500 Mg (Pmx)) 100 ml @ 100 mls/hr Q8 IVPB Last administered on 10/17/16 05:36; Admin Dose 100 MLS/HR; Start 10/02/16 at 14:00 Midodrine 10 mg 10 mg TID@ PO Last administered on 10/06/16 17:15; Admin Dose 10 MG; Start 10/06/16 at 01:00; Status Future Hold Linezolid (Zyvox 600mg/D5W (Pmx)) 300 ml @ 300 mls/hr Q12 IVPB Last administered on 10/16/16 20:30; Admin Dose 300 MLS/HR; Start 10/06/16 at 21:00 Levothyroxine Sodium (Synthroid Iv) 12.5 mcg DAILY@06 IV Last administered on 05:36; Admin Dose 12.5 MCG; Start 10/07/16 at 06:00 Metoclopramide HCl (Reglan) 5 mg Q8 IV Last administered on 10/17/16 05:36; Admin Dose 5 MG; Start 10/06/16 at 22:00 Voriconazole 200 mg 200 mg BID PO Last administered on 10/16/16 10:19; Admin Dose 200 MG; Start 10/08/16 at 21:00 Colistimethate Sodium/Sodium Chloride (Coly-Mycin/NS) 100 ml @ 200 mls/hr Q12 IVPB Last administered on 10/16/16 20:30; Admin Dose 200 MLS/HR; Start at 13:30 MAGGIE DINERO MD Oct 17, 2016 08:49
[2016-10-17] MEDS: LINEZOLID 600 MG/D5W (PMX) 300 ML IVPB SCH ×2 (08:53→21:36)
[2016-10-17] MEDS: COLLAGENASE 30 GM TUBE TOP SCH (08:53)
[2016-10-17] MEDS: VORICONAZOLE 200 MG TAB PO SCH ×2 (08:53→21:36)
[2016-10-17] MEDS: ARTIFICIAL TEARS 15 ML OPH BOTH EYES SCH ×3 (08:53→21:36)
[2016-10-17] MEDS: COLISTIMETHATE 75 MG in SOD CHLORIDE 0.9% 100 ML IVPB SCH ×2 (08:53→21:35)
[2016-10-17] MEDS: SODIUM HYPOCHLORITE 0.125% 473 ML BTL IRR SCH ×2 (08:54→21:37)
[2016-10-17] MEDS: HEPARIN 5,000 UNIT/0.5 ML VIAL SC SCH (08:57)
[2016-10-17 09:32] LABS: ADD SCAN DIFF NO
[2016-10-17 09:35] LABS: BASOPHILS % 0.3 % (0.0-2.0); EOSINOPHILS # 0.1 10^3/ul (0.0-0.5); HEMATOCRIT 25.3 % (42.0-52.0); HEMOGLOBIN 7.5 g/dl (14.0-18.0); LYMPHOCYTES % 24.8 % (15.0-51.0); MEAN CORPUSCULAR HEMOGLOBIN 25.6 pg (29.0-33.0); MEAN CORPUSCULAR HGB CONC 29.6 g/dl (32.0-37.0); MEAN CORPUSCULAR VOLUME 86.3 fl (82.0-101.0); MEAN PLATELET VOLUME 12.3 fl (7.4-10.4); MONOCYTE # 1.2 10^3/ul (0.3-0.9); MONOCYTES % 14.9 % (0.0-11.0); NEUTROPHIL # 4.6 10^3/ul (1.6-7.5); NEUTROPHILS % 58.5 % (39.0-77.0); PLATELET COUNT 209 10^3/UL (140-415); RED BLOOD COUNT 2.93 10^6/ul (4.70-6.10); RED CELL DISTRIBUTION WIDTH 19.1 % (11.5-14.5); WHITE BLOOD COUNT 7.9 10^3/ul (4.8-10.8)
[2016-10-17 09:49] LABS: POTASSIUM 3.9 mmol/L (3.5-5.1)
[2016-10-17 09:51] LABS: CREATININE 0.48 mg/dl (0.61-1.24)
[2016-10-17 09:52] LABS: CALCIUM 7.2 mg/dl (8.4-10.2)
--- NOTE | 2016-10-17 10:24 | CONS ---
Date/Time of Note Date/Time of Note DATE: 10/17/16 TIME: 10:22 Assessment/Plan Assessment/Plan Additional Assessment/Plan Ventilator settings; AC of 16, tidal volume 500, PEEP of 5, 30% FiO2. Assessment recommendations; 1. Patient admitted for UTI and pneumonia currently on broad-spectrum antibiotic and antifungal coverage. 2. Multi-infarct dementia. 3. Chronic respiratory failure, ventilator dependent. 5. Anemia. 6. History of hypothyroidism and BPH. Continue current treatment. Obtain follow-up chest x-ray. Consultation Date/Type/Reason Admit Date/Time Sep 24, 2016 at 03:19 Initial Consult Date 09/24/16 Type of Consultation: Pulmonary Referring Provider: FELIX BLAKE DO 24 HR Interval Summary Free Text/Dictation Patient condition remains stable. Remains essentially unresponsive to any commands. Has remained hemodynamically stable. General exam; elderly male, on ventilator via tracheostomy currently in no distress. Exam/Review of Systems Vital Signs Vitals Vital Signs Date Time Temp Pulse Resp B/P Pulse Ox O2 Delivery O2 Flow Rate FiO2 10/17/16 09:36 99.0 10/17/16 08:21 112 10/17/16 07:59 16 100/52 97 10/17/16 07:45 30 10/15/16 19:00 Mechanical Ventilator Intake and Output 10/16/16 10/16/16 10/17/16 15:00 23:00 07:00 Intake Total 680 ml 600 ml Output Total 400 ml 500 ml Balance 280 ml 100 ml Exam HEENT exam is; supple neck, no JVD. No lymphadenopathy. Midline trachea. Tracheostomy in place with clean insertion site. Chest exam; clear to auscultation. S1-S2 audible, no murmurs. Regular rhythm. Abdomen exam is; soft, G-tube in place. Bowel sounds audible. No organomegaly. Abdomen is nondistended. Extremity exam; no peripheral edema. Patient has contractures involving all 4 extremities. PROGRAM SERVICES ASSISTANT exam is; patient is awake but does not follow any commands. Results Result Diagram: 10/17/16 0851 10/17/16 0851 Results 24 hrs Laboratory Tests Test 10/17/16 08:51 White Blood Count 7.9 Red Blood Count 2.93 L Hemoglobin 7.5 L Hematocrit 25.3 L Mean Corpuscular Volume 86.3 Mean Corpuscular Hemoglobin 25.6 L Mean Corpuscular Hemoglobin Concent 29.6 L Red Cell Distribution Width 19.1 H Platelet Count 209 Mean Platelet Volume 12.3 H Neutrophils % 58.5 Lymphocytes % 24.8 Monocytes % 14.9 H Eosinophils % 1.0 Basophils % 0.3 Nucleated Red Blood Cells % 0.0 Neutrophils # 4.6 Lymphocytes # 2.0 Monocytes # 1.2 H Eosinophils # 0.1 Basophils # 0.0 Nucleated Red Blood Cells # 0.0 Sodium Level 136 Potassium Level 3.9 Chloride Level 106 Carbon Dioxide Level 23 Anion Gap 11 Blood Urea Nitrogen 15 Creatinine 0.48 L Glucose Level 77 Calcium Level 7.2 L Medications Medications Current Medications Acetaminophen (Tylenol Supp) 650 mg Q4H PRN GA PAIN LEVEL 1-3 OR FEVER; Start 09/24/16 at 03:00 Eye Lubricant (Artificial Tears Oph) 1 drop TID BOTH EYES Last administered on 10/17/16 08:53; Admin Dose 1 DROP; Start 09/24/16 at 09:00 Sodium Hypochlorite (Dakin'S (1/4 Strength)) 1 applic BID IRR Last administered on 10/17/16 08:54; Admin Dose 1 APPLIC; Start 09/24/16 at 21:00 Pantoprazole (Protonix Iv) 40 mg BID@06,18 IV Last administered on 10/17/16 05 :36; Admin Dose 40 MG; Start 09/24/16 at 18:00 Collagenase (Santyl) 1 applic DAILY TOP Last administered on 10/17/16 08:53; Admin Dose 1 APPLIC; Start 09/24/16 at 20:30 Miscellaneous Information 1 ea NOTE XX ; Start 09/24/16 at 21:00 Glucose (Glutose) 15 gm Q15M PRN PO DECREASED GLUCOSE; Start 09/24/16 at 21:00 Glucose (Glutose) 22.5 gm Q15M PRN PO DECREASED GLUCOSE; Start 09/24/16 at 21: 00 Dextrose (D50w Syringe) 25 ml Q15M PRN IV DECREASED GLUCOSE; Start 09/24/16 at 21:00 Dextrose (D50w Syringe) 50 ml Q15M PRN IV DECREASED GLUCOSE; Start 09/24/16 at 21:00 Glucagon (Glucagen) 1 mg Q15M PRN IM DECREASED GLUCOSE; Start 09/24/16 at 21:00 Glucose 15 gm 15 gm Q15M PRN BUCCAL DECREASED GLUCOSE; Start 09/24/16 at 21:00 Acetaminophen (Ofirmev 1000mg/ 100ml Iv) 100 ml @ 400 mls/hr Q6H PRN IVPB FEVER Last administered on 10/07/16 17:14; Admin Dose 400 MLS/HR; Start at 22:00 Vancomycin HCl (Vancomycin Oral Syringe) 250 mg Q6 PO Last administered on 17:15; Admin Dose 250 MG; Start 09/26/16 at 18:00; Status Future Hold Lactobacillus Acidoph/Bulgaricus (Floranex) 1 tab TID PO Last administered on 13:22; Admin Dose 1 TAB; Start 09/26/16 at 21:00; Status Future Hold Atorvastatin Calcium (Lipitor) 20 mg QHS GTB Last administered on 10/05/16 21: 42; Admin Dose 20 MG; Start 09/28/16 at 21:00; Status Future Hold Finasteride (Proscar) 5 mg DAILY GTB Last administered on 10/06/16 09:12; Admin Dose 5 MG; Start 09/29/16 at 09:00; Status Future Hold Multivitamins Therapeutic (Theragran) 1 tab DAILY GTB Last administered on 09:12; Admin Dose 1 TAB; Start 09/29/16 at 09:00; Status Future Hold Zinc Sulfate (Zinc Sulfate) 220 mg DAILY NGT Last administered on 10/06/16 09: 13; Admin Dose 220 MG; Start 09/29/16 at 09:00; Status Future Hold Ondansetron HCl (Zofran Inj) 4 mg Q6H PRN IV NAUSEA AND/OR VOMITING Last administered on 10/13/16 16:10; Admin Dose 4 MG; Start 09/29/16 at 07:30 Heparin Sodium (Porcine) (Heparin (5000 Units/0.5 ml)) 5,000 unit BID SC Last administered on 10/17/16 08:57; Admin Dose 5,000 UNIT; Start 09/29/16 at 09:00 Acetaminophen 650 mg 650 mg Q6H PRN GTB PAIN AND OR ELEVATED TEMP Last administered on 10/10/16 20:23; Admin Dose 650 MG; Start 10/02/16 at 08:00 Metronidazole (Flagyl 500 Mg (Pmx)) 100 ml @ 100 mls/hr Q8 IVPB Last administered on 10/17/16 05:36; Admin Dose 100 MLS/HR; Start 10/02/16 at 14:00 Midodrine 10 mg 10 mg TID@,,17 PO Last administered on 10/06/16 17:15; Admin Dose 10 MG; Start 10/06/16 at 01:00; Status Future Hold Linezolid (Zyvox 600mg/D5W (Pmx)) 300 ml @ 300 mls/hr Q12 IVPB Last administered on 10/17/16 08:53; Admin Dose 300 MLS/HR; Start 10/06/16 at 21:00 Levothyroxine Sodium (Synthroid Iv) 12.5 mcg DAILY@06 IV Last administered on 05:36; Admin Dose 12.5 MCG; Start 10/07/16 at 06:00 Metoclopramide HCl (Reglan) 5 mg Q8 IV Last administered on 10/17/16 05:36; Admin Dose 5 MG; Start 10/06/16 at 22:00 Voriconazole 200 mg 200 mg BID PO Last administered on 10/17/16 08:53; Admin Dose 200 MG; Start 10/08/16 at 21:00 Colistimethate Sodium/Sodium Chloride (Coly-Mycin/NS) 100 ml @ 200 mls/hr Q12 IVPB Last administered on 10/17/16 08:53; Admin Dose 200 MLS/HR; Start at 13:30 MAIN SALTER Oct 17, 2016 10:24
[2016-10-17 12:31] LABS: HEMOGLOBIN 7.6 g/dl (14.0-18.0)
[2016-10-17] MEDS ORDERED: SOD CHLORIDE 0.9% 250 ML IV* ONE (13:14)
--- NOTE | 2016-10-17 13:20 | PN ---
Date/Time of Note Date/Time of Note DATE: 10/17/16 TIME: 13:16 Assessment/Plan VTE Prophylaxis VTE Prophylaxis Intervention: contraindicated (Heparin on hold due to anemia) Lines/Catheters IV [facility]from [facility] Central Line Central line still needed: Yes Urinary Cath still in place: Yes Reason Cath still needed: other (indicate) (monitor I&O) Assessment/Plan Chief Complaint/Hosp Course assessment and plan 1. Sepsis secondary to infected sacral decubitus ulcers with multiple organisms including Klebsiella pneumonia, Acinetobacter baumannii, VRE, staph aureus. ID following. Continue antibiotics. remains off pressors at this time. Stable 2. Sacral decubitus ulcer with infection. Continue with wound care. Continue with analgesics as needed. on abx. Continue with surgeon recommendations 3. Acute renal insufficiency. Stable at present. Avoid nephrotoxic medications.continue with nephrology recs 4. Chronic respiratory failure. [employer] Physical Education Teacher on the case. Continue bronchodilators and pulmonary hygiene. Stable at present 5. 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 On antibiotics. Continuing wound care. surgeon following 6. Encephalopathy (chronic). Continue to turn every 2 hours as needed. Continue with aspiration precautions 7. Hypothyroidism. Continue on Synthroid 8. Dysphagia. Continue aspiration precautions. We'll graduate PEG tube feedings as tolerated 9. Anemia of chronic disease. H&H remained stable. We'll monitor 10. Leukocytosis with thrombocytosis. Oncologist/windows deployment technician following. Continued recommendations 11. Ileus. Was reported resolved DVT prophylaxis: Heparin Disposition and plan: anemic today. transfuse prbc. follow up occult stool. hold off heparin for now. case management to follow for possible LTAC Discussed plan of care with Dr. Mullins Problems: Subjective 24 Hr Interval Summary Free Text/Dictation No apparent distress noted at this time. Exam/Review of Systems Vital Signs Vitals Vital Signs Date Time Temp Pulse Resp B/P Pulse Ox O2 Delivery O2 Flow Rate FiO2 10/17/16 12:19 117 10/17/16 12:08 98.2 17 104/56 99 10/17/16 11:30 30 10/15/16 19:00 Mechanical Ventilator Intake and Output 10/16/16 10/16/16 10/17/16 15:00 23:00 07:00 Intake Total 680 ml 600 ml Output Total 400 ml 500 ml Balance 280 ml 100 ml Exam General: On mechanical ventilation. No apparent distress Eyes: Equal round. Neck: Tracheostomy in place. Cardiac: Remains regular rate. Noted with heart murmur still today Pulmonary: On mechanical ventilation. Diminished at bases GI: PEG tube in place. Extremities: Edema noted bilateral lower extremities as well as upper extremities still, unchanged Skin: decubitus ulcers Neurologic: Alert. No purposeful response Results Result Diagram: 10/17/16 1228 10/17/16 0851 Results 24 hrs Laboratory Tests Test 10/17/16 08:51 10/17/16 12:28 White Blood Count 7.9 Red Blood Count 2.93 L Hemoglobin 7.5 L 7.6 L Hematocrit 25.3 L 25.0 L Mean Corpuscular Volume 86.3 Mean Corpuscular Hemoglobin 25.6 L Mean Corpuscular Hemoglobin Concent 29.6 L Red Cell Distribution Width 19.1 H Platelet Count 209 Mean Platelet Volume 12.3 H Neutrophils % 58.5 Lymphocytes % 24.8 Monocytes % 14.9 H Eosinophils % 1.0 Basophils % 0.3 Nucleated Red Blood Cells % 0.0 Neutrophils # 4.6 Lymphocytes # 2.0 Monocytes # 1.2 H Eosinophils # 0.1 Basophils # 0.0 Nucleated Red Blood Cells # 0.0 Sodium Level 136 Potassium Level 3.9 Chloride Level 106 Carbon Dioxide Level 23 Anion Gap 11 Blood Urea Nitrogen 15 Creatinine 0.48 L Glucose Level 77 Calcium Level 7.2 L Medications Medications Current Medications Acetaminophen (Tylenol Supp) 650 mg Q4H PRN GA PAIN LEVEL 1-3 OR FEVER; Start 09/24/16 at 03:00 Eye Lubricant (Artificial Tears Oph) 1 drop TID BOTH EYES Last administered on 10/17/16 08:53; Admin Dose 1 DROP; Start 09/24/16 at 09:00 Sodium Hypochlorite (Dakin'S (1/4 Strength)) 1 applic BID IRR Last administered on 10/17/16 08:54; Admin Dose 1 APPLIC; Start 09/24/16 at 21:00 Pantoprazole (Protonix Iv) 40 mg BID@06,18 IV Last administered on 10/17/16 05 :36; Admin Dose 40 MG; Start 09/24/16 at 18:00 Collagenase (Santyl) 1 applic DAILY TOP Last administered on 10/17/16 08:53; Admin Dose 1 APPLIC; Start 09/24/16 at 20:30 Miscellaneous Information 1 ea NOTE XX ; Start 09/24/16 at 21:00 Glucose (Glutose) 15 gm Q15M PRN PO DECREASED GLUCOSE; Start 09/24/16 at 21:00 Glucose (Glutose) 22.5 gm Q15M PRN PO DECREASED GLUCOSE; Start 09/24/16 at 21: 00 Dextrose (D50w Syringe) 25 ml Q15M PRN IV DECREASED GLUCOSE; Start 09/24/16 at 21:00 Dextrose (D50w Syringe) 50 ml Q15M PRN IV DECREASED GLUCOSE; Start 09/24/16 at 21:00 Glucagon (Glucagen) 1 mg Q15M PRN IM DECREASED GLUCOSE; Start 09/24/16 at 21:00 Glucose 15 gm 15 gm Q15M PRN BUCCAL DECREASED GLUCOSE; Start 09/24/16 at 21:00 Acetaminophen (Ofirmev 1000mg/ 100ml Iv) 100 ml @ 400 mls/hr Q6H PRN IVPB FEVER Last administered on 10/07/16 17:14; Admin Dose 400 MLS/HR; Start at 22:00 Vancomycin HCl (Vancomycin Oral Syringe) 250 mg Q6 PO Last administered on 17:15; Admin Dose 250 MG; Start 09/26/16 at 18:00; Status Future Hold Lactobacillus Acidoph/Bulgaricus (Floranex) 1 tab TID PO Last administered on 13:22; Admin Dose 1 TAB; Start 09/26/16 at 21:00; Status Future Hold Atorvastatin Calcium (Lipitor) 20 mg QHS GTB Last administered on 10/05/16 21: 42; Admin Dose 20 MG; Start 09/28/16 at 21:00; Status Future Hold Finasteride (Proscar) 5 mg DAILY GTB Last administered on 10/06/16 09:12; Admin Dose 5 MG; Start 09/29/16 at 09:00; Status Future Hold Multivitamins Therapeutic (Theragran) 1 tab DAILY GTB Last administered on 09:12; Admin Dose 1 TAB; Start 09/29/16 at 09:00; Status Future Hold Zinc Sulfate (Zinc Sulfate) 220 mg DAILY NGT Last administered on 10/06/16 09: 13; Admin Dose 220 MG; Start 09/29/16 at 09:00; Status Future Hold Ondansetron HCl (Zofran Inj) 4 mg Q6H PRN IV NAUSEA AND/OR VOMITING Last administered on 10/13/16 16:10; Admin Dose 4 MG; Start 09/29/16 at 07:30 Heparin Sodium (Porcine) (Heparin (5000 Units/0.5 ml)) 5,000 unit BID SC Last administered on 10/17/16 08:57; Admin Dose 5,000 UNIT; Start 09/29/16 at 09:00 Acetaminophen 650 mg 650 mg Q6H PRN GTB PAIN AND OR ELEVATED TEMP Last administered on 10/10/16 20:23; Admin Dose 650 MG; Start 10/02/16 at 08:00 Metronidazole (Flagyl 500 Mg (Pmx)) 100 ml @ 100 mls/hr Q8 IVPB Last administered on 10/17/16 05:36; Admin Dose 100 MLS/HR; Start 10/02/16 at 14:00 Midodrine 10 mg 10 mg TID@ PO Last administered on 10/06/16 17:15; Admin Dose 10 MG; Start 10/06/16 at 01:00; Status Future Hold Linezolid (Zyvox 600mg/D5W (Pmx)) 300 ml @ 300 mls/hr Q12 IVPB Last administered on 10/17/16 08:53; Admin Dose 300 MLS/HR; Start 10/06/16 at 21:00 Levothyroxine Sodium (Synthroid Iv) 12.5 mcg DAILY@06 IV Last administered on 05:36; Admin Dose 12.5 MCG; Start 10/07/16 at 06:00 Metoclopramide HCl (Reglan) 5 mg Q8 IV Last administered on 10/17/16 05:36; Admin Dose 5 MG; Start 10/06/16 at 22:00 Voriconazole 200 mg 200 mg BID PO Last administered on 10/17/16 08:53; Admin Dose 200 MG; Start 10/08/16 at 21:00 Colistimethate Sodium/Sodium Chloride (Coly-Mycin/NS) 100 ml @ 200 mls/hr Q12 IVPB Last administered on 10/17/16 08:53; Admin Dose 200 MLS/HR; Start at 13:30 TAMMIE RIBERA Oct 17, 2016 13:20
--- NOTE | 2016-10-17 13:45 | PN ---
DATE: SUBJECTIVE: There has been no change in his overall clinical condition. PHYSICAL EXAMINATION: VITAL SIGNS: Blood pressure 104/56, pulse of 114 and regular, respirations of 17, temperature 98.2 degrees, 99% saturation on 30% FIO2. GENERAL: He looks much more cachectic and anemic at this time, pale and moribund. CHEST: Inspiratory and expiratory rhonchi on examination. CORONARY: S1, S2, without S3, S4, murmur, gallop, rub. ABDOMEN: Grossly distended. ASSESSMENT AND PLAN: Recommendations from a palliative care standpoint, I will speak to patient's w oliver once again and readdress his ongoing level of care. I believe comfort measures are in order at this time. This gentleman has very poor quality of life. His continues to hold on, not for re ligious, but more for psychosocial issues. From the background, the patient is PEG trached. 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 The patient's understands his current medical condition. Her hopes have been addressed in the past that he will continue to live even if he is in this condition. She accepts his quality of life in spite of the fact that we have had a long conversation that he has no chance of recovering to th e same level quality of life that he had prior to his stroke. There is no spiritual issue, cultural issues. Communication has been pleasant through an retail business analyst. There is no past experience with end of life care, or caregiver concerns. IMPRESSION: Stroke syndrome, no clinical improvement since hospitalization, respiratory failure, pr obably secondary to aspiration pneumonia. GOALS OF CARE: Will be discussed with patient's . Once again, estimated prognosis is extremely poor, palliative performance scale less than 10%. There are no pain or symptom control issues, psy chological, social or spiritual issues have been addressed with the patient's in the past. She still hopes for a miracle. The patient is a DO NOT RESUSCITATE. Will address code status prior to discharge. Ethical, legal concerns have been addressed. The patient's refuses to allow us to speak to any other family members. I have asked case management to schedule a followup family conf erence once again. Followup note will be done. Dictated By: SITA OCONNOR MD, LP/ELIZABETH Conf#: [id number] DID#: [id number]
--- NOTE | 2016-10-17 15:28 | PN ---
DATE: 10/17/2016 SUBJECTIVE: The patient is lying comfortably in bed, minimally communicative, no fevers. T-max 99. 7. He is in no distress. He is tachycardic. LABORATORY DATA: WBC today 7.9, H and H 7.5 and 25.3, platelets 209, no shift, no bands. BUN 15, c reatinine 0.48. INDWELLINGS: Trach, PEG, Cee. ANTIMICROBIALS: 1. Colistin. 2. Oral voriconazole. 3. IV Zyvox. 4. IV Flagyl. PHYSICAL EXAMINATION: GENERAL: This is a chronically ill-appearing, elderly man who is lying comfortably in bed. HEENT: Head atraumatic, normocephalic. Sclerae anicteric. Buccal mucosa dry. NECK: Supple. Tracheostomy present. CHEST: Rise symmetrical. Breath sounds diminished to bases. HEART: S1, S2. ABDOMEN: Distended, soft. Bowel sounds hypoactive. EXTREMITIES: Bilateral trace edema. ASSESSMENT: 1. Status post septic shock. 2. 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 3. Urinary tract infection. 4. Status post pneumonia and bacteremia. 5. History of severe pseudomembranous colitis. 6. Diarrhea. 7. Ileus. PLAN: The patient remains stable on appropriate antimicrobials. He is being followed by multiple c onsultants. Scheduled for blood transfusion today. Dictated By: CHRISTOPHER MCDONOUGH INFORMATION ASSURANCE OFFICER for YAQUELIN ESTRELLA MD NI/NTS Conf#: [id number] DID#: [id number]
--- NOTE | 2016-10-17 15:38 | RADRPT ---
PROCEDURE: XR Chest. CLINICAL INDICATION: Shortness of breath. TECHNIQUE: Single frontal view. COMPARISON: 10/13/2016. FINDINGS: There is a gastrostomy tube overlying the stomach. A tracheostomy tube is present and a left subcla vian vein catheter is present overlying the upper superior vena cava. Pulmonary edema and low lung volumes are unchanged. There is a small right pleural effusion, unchanged. A moderate left pleural effusion is larger than seen previously. The heart is enlarged. There is no pneumothorax. IMPRESSION: 1. Larger left pleural effusion. 2. No other change from 10/13/2016. RPTAT: QQ .Ho Medeiros MD, MD Date Time Electronically viewed and signed by .Ho Medeiros MD, on 10/17/2016 15:38 .R/
--- NOTE | 2016-10-17 19:23 | CONS ---
Date/Time of Note Date/Time of Note DATE: 10/17/16 TIME: 19:22 Assessment/Plan Assessment/Plan Chief Complaint/Hosp Course ANEMIA - NEAR- MICROCYTIC WITH INCREASED RDW DROP H/H DURING HOSPITALIZATION + ACD TRANSFUSE PRBC TO KEEP HB MORE THAN 8 TRANSFUSE NEEDED GI F-UP Stool OB, negative Monitor H&H, transfuse 2 units for hemoglobin less than 8 LEUKOCYTOSIS- REACTIVE CONT ATB FOR SEPSIS THROMBOCYTOSIS REACTIVE SHOULD IMPROVE WITH RESOLUTION OF SEPSIS Severe sepsis with septic shock 2/2 Decub ulcers and/or UTI and/or PNA: stable, off pressor support Severe hypernatremic dehydration Acute renal failure 2/2 ATN from dehydration UTI Multifocal pneumonia Encephalopathy ?acute versus acute on chronic (baseline unknown) Hypokalemia Problems: Consultation Date/Type/Reason Admit Date/Time Sep 24, 2016 at 03:19 Initial Consult Date 09/24/16 Type of Consultation: [facility] Referring Provider: FELIX BLAKE DO 24 HR Interval Summary Free Text/Dictation There has been no change in his overall clinical condition. Exam/Review of Systems Vital Signs Vitals Vital Signs Date Time Temp Pulse Resp B/P Pulse Ox O2 Delivery O2 Flow Rate FiO2 10/17/16 17:30 114 19 99 30 10/17/16 15:58 97.2 111/61 10/15/16 19:00 Mechanical Ventilator Intake and Output 10/16/16 10/16/16 10/17/16 15:00 23:00 07:00 Intake Total 680 ml 600 ml Output Total 400 ml 500 ml Balance 280 ml 100 ml Exam General: On mechanical ventilation. No apparent distress Eyes: Equal round. Neck: Tracheostomy in place. Cardiac: Remains regular rate. Pulmonary: On mechanical ventilation. Diminished at bases GI: PEG tube in place. Extremities: Edema noted bilateral lower extremities as well as upper extremities still, unchanged Skin: decubitus ulcers Neurologic: Alert. No purposeful response Results Result Diagram: 10/17/16 1228 10/17/16 0851 Results 24 hrs Laboratory Tests Test 10/17/16 08:51 10/17/16 12:28 White Blood Count 7.9 Red Blood Count 2.93 L Hemoglobin 7.5 L 7.6 L Hematocrit 25.3 L 25.0 L Mean Corpuscular Volume 86.3 Mean Corpuscular Hemoglobin 25.6 L Mean Corpuscular Hemoglobin Concent 29.6 L Red Cell Distribution Width 19.1 H Platelet Count 209 Mean Platelet Volume 12.3 H Neutrophils % 58.5 Lymphocytes % 24.8 Monocytes % 14.9 H Eosinophils % 1.0 Basophils % 0.3 Nucleated Red Blood Cells % 0.0 Neutrophils # 4.6 Lymphocytes # 2.0 Monocytes # 1.2 H Eosinophils # 0.1 Basophils # 0.0 Nucleated Red Blood Cells # 0.0 Sodium Level 136 Potassium Level 3.9 Chloride Level 106 Carbon Dioxide Level 23 Anion Gap 11 Blood Urea Nitrogen 15 Creatinine 0.48 L Glucose Level 77 Calcium Level 7.2 L Medications Medications Current Medications Acetaminophen (Tylenol Supp) 650 mg Q4H PRN [place] PAIN LEVEL 1-3 OR FEVER; Start 09/24/16 at 03:00 Eye Lubricant (Artificial Tears Oph) 1 drop TID BOTH EYES Last administered on 10/17/16 13:30; Admin Dose 1 DROP; Start 09/24/16 at 09:00 Sodium Hypochlorite (Dakin'S (1/4 Strength)) 1 applic BID IRR Last administered on 10/17/16 08:54; Admin Dose 1 APPLIC; Start 09/24/16 at 21:00 Pantoprazole (Protonix Iv) 40 mg BID@06,18 IV Last administered on 10/17/16 17 :10; Admin Dose 40 MG; Start 09/24/16 at 18:00 Collagenase (Santyl) 1 applic DAILY TOP Last administered on 10/17/16 08:53; Admin Dose 1 APPLIC; Start 09/24/16 at 20:30 Miscellaneous Information 1 ea NOTE XX ; Start 09/24/16 at 21:00 Glucose (Glutose) 15 gm Q15M PRN PO DECREASED GLUCOSE; Start 09/24/16 at 21:00 Glucose (Glutose) 22.5 gm Q15M PRN PO DECREASED GLUCOSE; Start 09/24/16 at 21: 00 Dextrose (D50w Syringe) 25 ml Q15M PRN IV DECREASED GLUCOSE; Start 09/24/16 at 21:00 Dextrose (D50w Syringe) 50 ml Q15M PRN IV DECREASED GLUCOSE; Start 09/24/16 at 21:00 Glucagon (Glucagen) 1 mg Q15M PRN IM DECREASED GLUCOSE; Start 09/24/16 at 21:00 Glucose 15 gm 15 gm Q15M PRN BUCCAL DECREASED GLUCOSE; Start 09/24/16 at 21:00 Acetaminophen (Ofirmev 1000mg/ 100ml Iv) 100 ml @ 400 mls/hr Q6H PRN IVPB FEVER Last administered on 10/07/16 17:14; Admin Dose 400 MLS/HR; Start at 22:00 Vancomycin HCl (Vancomycin Oral Syringe) 250 mg Q6 PO Last administered on 17:15; Admin Dose 250 MG; Start 09/26/16 at 18:00; Status Future Hold Lactobacillus Acidoph/Bulgaricus (Floranex) 1 tab TID PO Last administered on 13:22; Admin Dose 1 TAB; Start 09/26/16 at 21:00; Status Future Hold Atorvastatin Calcium (Lipitor) 20 mg QHS GTB Last administered on 10/05/16 21: 42; Admin Dose 20 MG; Start 09/28/16 at 21:00; Status Future Hold Finasteride (Proscar) 5 mg DAILY GTB Last administered on 10/06/16 09:12; Admin Dose 5 MG; Start 09/29/16 at 09:00; Status Future Hold Multivitamins Therapeutic (Theragran) 1 tab DAILY GTB Last administered on 09:12; Admin Dose 1 TAB; Start 09/29/16 at 09:00; Status Future Hold Zinc Sulfate (Zinc Sulfate) 220 mg DAILY NGT Last administered on 10/06/16 09: 13; Admin Dose 220 MG; Start 09/29/16 at 09:00; Status Future Hold Ondansetron HCl (Zofran Inj) 4 mg Q6H PRN IV NAUSEA AND/OR VOMITING Last administered on 10/13/16 16:10; Admin Dose 4 MG; Start 09/29/16 at 07:30 Acetaminophen 650 mg 650 mg Q6H PRN GTB PAIN AND OR ELEVATED TEMP Last administered on 10/10/16 20:23; Admin Dose 650 MG; Start 10/02/16 at 08:00 Metronidazole (Flagyl 500 Mg (Pmx)) 100 ml @ 100 mls/hr Q8 IVPB Last administered on 10/17/16 13:35; Admin Dose 100 MLS/HR; Start 10/02/16 at 14:00 Midodrine 10 mg 10 mg TID@,, PO Last administered on 10/06/16 17:15; Admin Dose 10 MG; Start 10/06/16 at 01:00; Status Future Hold Linezolid (Zyvox 600mg/D5W (Pmx)) 300 ml @ 300 mls/hr Q12 IVPB Last administered on 10/17/16 08:53; Admin Dose 300 MLS/HR; Start 10/06/16 at 21:00 Levothyroxine Sodium (Synthroid Iv) 12.5 mcg DAILY@06 IV Last administered on 05:36; Admin Dose 12.5 MCG; Start 10/07/16 at 06:00 Metoclopramide HCl (Reglan) 5 mg Q8 IV Last administered on 10/17/16 13:35; Admin Dose 5 MG; Start 10/06/16 at 22:00 Voriconazole 200 mg 200 mg BID PO Last administered on 10/17/16 08:53; Admin Dose 200 MG; Start 10/08/16 at 21:00 Colistimethate Sodium/Sodium Chloride (Coly-Mycin/NS) 100 ml @ 200 mls/hr Q12 IVPB Last administered on 10/17/16 08:53; Admin Dose 200 MLS/HR; Start at 13:30 SCOTT RODRIGUES MD Oct 17, 2016 19:23
[2016-10-18] VITALS (23 sets, daily range): BP systolic 101–116; BP diastolic 53–66; PULSE 110–120; RESP 14–37
--- NOTE | 2016-10-18 00:04 | PN ---
Date/Time of Note Date/Time of Note DATE: 10/17/16 TIME: 22:02 Assessment/Plan Lines/Catheters IV Catheter Type (from [facility]): Central Line Cee in Place (from [facility]): Yes Assessment/Plan Chief Complaint/Hosp Course 1. Shock, septic (uti, pna, wound). -Judicious fluid management -Supportive measures -Antibiotics 2. Multiple decubitus ulcerations with necrotic tissue and deep tissue injury -Offload -Local care -Vitamin C -Eventual nutritional optimization -Debridement when medically cleared 3. Contracted state with functional quadriplegia -Offloading -Nutritional optimization when possible 4. Anemia -Monitor 5. Ventilator dependent respiratory failure -Ventilator management and pulmonary toilet 6. Renal insufficiency -Judicious fluid management -Avoid nephrotoxic agents 7. Coronary artery disease and history of non-ST elevation SC -Cardiac optimization Thank you Late entry 10/17 Problems: Subjective 24 Hr Interval Summary Tachycardia. No fevers or chills. No cough. No seizure. No rash. No blood rectum. No bloating. No seizures. No pyuria. Exam/Review of Systems Vital Signs Vitals Vital Signs Date Time Temp Pulse Resp B/P Pulse Ox O2 Delivery O2 Flow Rate FiO2 10/17/16 23:10 108 16 98 30 10/17/16 20:12 99.6 107/56 10/15/16 19:00 Mechanical Ventilator Intake and Output 10/17/16 10/17/16 10/18/16 15:00 23:00 07:00 Intake Total 1300 ml Output Total 1800 ml Balance -500 ml Exam Free Text/Dictation Constitutional: No alert, No oriented Psych: No nl mood/affect Head: atraumatic, normocephalic Eyes: nl conjunctiva, No EOMI, No icteric ENMT: mucosa pink and moist, nl external ears & nose Neck: jvd, other (Trach in place), No non-tender, No supple Respiratory: No congested cough, No labored breathing Cardiovascular: No regular rate and rhythm Gastrointestinal: non-tender, other (PEG in place), soft, No rebound or guarding Musculoskeletal: No joint tenderness, No nl extremities to inspection, No nl gait and stance Extremities: No calf tenderness, No cyanosis Neurological: No nl mental status, No nl speech, No nl strength Skin: rash or lesions (Multiple decubitus ulcerations with debris, necrotic tissue, deep tissue injury), No diaphoresis, No nl turgor Lymph: nontender Results Result Diagram: 10/17/16 1228 10/17/16 0851 EVA GUARDADO MD Oct 18, 2016 00:04
[2016-10-18] MEDS: IPRATROPIUM (HFA) 12.9 GM INHALER INH SCH ×4 (01:26→19:39)
[2016-10-18] MEDS: ALBUTEROL HFA 8 GM INHALER INH SCH ×4 (01:26→19:39)
[2016-10-18] MEDS: metroNIDAZOLE 500 MG/NS (PMX) 100 ML IVPB SCH ×3 (06:16→22:20)
[2016-10-18] MEDS: PANTOPRAZOLE 40 MG INJ IV SCH ×2 (06:16→17:05)
[2016-10-18] MEDS: LEVOTHYROXINE 100 MCG VIAL IV SCH (06:16)
[2016-10-18] MEDS: METOCLOPRAMIDE 10 MG INJ IV SCH ×3 (06:16→22:19)
[2016-10-18] MEDS: COLISTIMETHATE 75 MG in SOD CHLORIDE 0.9% 100 ML IVPB SCH ×2 (08:25→20:53)
[2016-10-18] MEDS: LINEZOLID 600 MG/D5W (PMX) 300 ML IVPB SCH ×2 (08:25→20:52)
[2016-10-18] MEDS: VORICONAZOLE 200 MG TAB PO SCH ×2 (08:25→20:53)
[2016-10-18] MEDS: ARTIFICIAL TEARS 15 ML OPH BOTH EYES SCH ×3 (08:26→20:53)
[2016-10-18] MEDS: COLLAGENASE 30 GM TUBE TOP SCH (08:26)
[2016-10-18] MEDS: SODIUM HYPOCHLORITE 0.125% 473 ML BTL IRR SCH ×2 (08:26→20:54)
--- NOTE | 2016-10-18 09:31 | CONS ---
Date/Time of Note Date/Time of Note DATE: 10/18/16 TIME: 09:29 Assessment/Plan Assessment/Plan Additional Assessment/Plan 1. Acute kidney injury on chronic kidney disease. due to ATN from septic shock 2. septic shock on levophed 3. severe metabolic acidosis on bicarbonate drip 5. History of chronic respiratory failure, status post tracheostomy, on ventilator. 6. History of G-tube. 7. Poor mental status due to the previous cerebrovascular accident. 8. History of dementia. 9. History of hypertension. 10. Hypocalcemia with Ca 6.9- likely pseudohypocalcemia, because corrected Ca with Serum albumin of 1.6 is 8.8-no symptoms of hypocalcemia PLAN: on Tube feeding, Hb 7.6, Bp stable, Electrolytes and Cr stable Corrected Ca 8.8, no new orders for hypocalcemia On IV Colistin, need to monitor renal function and K will follow up Consultation Date/Type/Reason Admit Date/Time Sep 24, 2016 at 03:19 Initial Consult Date 09/24/16 Type of Consultation: NEPHROLOGY Referring Provider: FELIX BLAKE DO 24 HR Interval Summary Free Text/Dictation no acute events overnight, BP stable Exam/Review of Systems Vital Signs Vitals Vital Signs Date Time Temp Pulse Resp B/P Pulse Ox O2 Delivery O2 Flow Rate FiO2 10/18/16 08:22 120 10/18/16 07:25 19 96 30 10/18/16 07:25 98.9 106/59 10/15/16 19:00 Mechanical Ventilator Intake and Output 10/17/16 10/17/16 10/18/16 15:00 23:00 07:00 Intake Total 1300 ml 500 ml Output Total 1800 ml Balance -500 ml 500 ml Exam GENERAL: This is a fragile, chronically ill-appearing, elderly man who is in no distress. HEENT: Head atraumatic, normocephalic. Sclerae anicteric. Buccal mucosa dry. NECK: Supple. Tracheostomy present. CHEST: Rise symmetrical. Breath sounds diminished to bases. HEART: S1, S2. ABDOMEN: Soft, distended. Bowel sounds hypoactive. EXTREMITIES: Bilateral trace edema. SKIN: With multiple infected wounds. Results Result Diagram: 10/17/16 1228 10/17/16 0851 Results 24 hrs Laboratory Tests Test 10/17/16 12:28 10/17/16 13:30 Hemoglobin 7.6 L Hematocrit 25.0 L Stool Occult Blood NEGATIVE Medications Medications Current Medications Acetaminophen (Tylenol Supp) 650 mg Q4H PRN [place] PAIN LEVEL 1-3 OR FEVER; Start 09/24/16 at 03:00 Eye Lubricant (Artificial Tears Oph) 1 drop TID BOTH EYES Last administered on 10/18/16 08:26; Admin Dose 1 DROP; Start 09/24/16 at 09:00 Sodium Hypochlorite (Dakin'S (1/4 Strength)) 1 applic BID IRR Last administered on 10/18/16 08:26; Admin Dose 1 APPLIC; Start 09/24/16 at 21:00 Pantoprazole (Protonix Iv) 40 mg BID@06,18 IV Last administered on 10/18/16 06 :16; Admin Dose 40 MG; Start 09/24/16 at 18:00 Collagenase (Santyl) 1 applic DAILY TOP Last administered on 10/18/16 08:26; Admin Dose 1 APPLIC; Start 09/24/16 at 20:30 Miscellaneous Information 1 ea NOTE XX ; Start 09/24/16 at 21:00 Glucose (Glutose) 15 gm Q15M PRN PO DECREASED GLUCOSE; Start 09/24/16 at 21:00 Glucose (Glutose) 22.5 gm Q15M PRN PO DECREASED GLUCOSE; Start 09/24/16 at 21: 00 Dextrose (D50w Syringe) 25 ml Q15M PRN IV DECREASED GLUCOSE; Start 09/24/16 at 21:00 Dextrose (D50w Syringe) 50 ml Q15M PRN IV DECREASED GLUCOSE; Start 09/24/16 at 21:00 Glucagon (Glucagen) 1 mg Q15M PRN IM DECREASED GLUCOSE; Start 09/24/16 at 21:00 Glucose 15 gm 15 gm Q15M PRN BUCCAL DECREASED GLUCOSE; Start 09/24/16 at 21:00 Acetaminophen (Ofirmev 1000mg/ 100ml Iv) 100 ml @ 400 mls/hr Q6H PRN IVPB FEVER Last administered on 10/07/16 17:14; Admin Dose 400 MLS/HR; Start at 22:00 Vancomycin HCl (Vancomycin Oral Syringe) 250 mg Q6 PO Last administered on 17:15; Admin Dose 250 MG; Start 09/26/16 at 18:00; Status Future Hold Lactobacillus Acidoph/Bulgaricus (Floranex) 1 tab TID PO Last administered on 13:22; Admin Dose 1 TAB; Start 09/26/16 at 21:00; Status Future Hold Atorvastatin Calcium (Lipitor) 20 mg QHS GTB Last administered on 10/05/16 21: 42; Admin Dose 20 MG; Start 09/28/16 at 21:00; Status Future Hold Finasteride (Proscar) 5 mg DAILY GTB Last administered on 10/06/16 09:12; Admin Dose 5 MG; Start 09/29/16 at 09:00; Status Future Hold Multivitamins Therapeutic (Theragran) 1 tab DAILY GTB Last administered on 09:12; Admin Dose 1 TAB; Start 09/29/16 at 09:00; Status Future Hold Zinc Sulfate (Zinc Sulfate) 220 mg DAILY NGT Last administered on 10/06/16 09: 13; Admin Dose 220 MG; Start 09/29/16 at 09:00; Status Future Hold Ondansetron HCl (Zofran Inj) 4 mg Q6H PRN IV NAUSEA AND/OR VOMITING Last administered on 10/13/16 16:10; Admin Dose 4 MG; Start 09/29/16 at 07:30 Acetaminophen 650 mg 650 mg Q6H PRN GTB PAIN AND OR ELEVATED TEMP Last administered on 10/10/16 20:23; Admin Dose 650 MG; Start 10/02/16 at 08:00 Metronidazole (Flagyl 500 Mg (Pmx)) 100 ml @ 100 mls/hr Q8 IVPB Last administered on 10/18/16 06:16; Admin Dose 100 MLS/HR; Start 10/02/16 at 14:00 Midodrine 10 mg 10 mg TID@,,17 PO Last administered on 10/06/16 17:15; Admin Dose 10 MG; Start 10/06/16 at 01:00; Status Future Hold Linezolid (Zyvox 600mg/D5W (Pmx)) 300 ml @ 300 mls/hr Q12 IVPB Last administered on 10/18/16 08:25; Admin Dose 300 MLS/HR; Start 10/06/16 at 21:00 Levothyroxine Sodium (Synthroid Iv) 12.5 mcg DAILY@06 IV Last administered on 06:16; Admin Dose 12.5 MCG; Start 10/07/16 at 06:00 Metoclopramide HCl (Reglan) 5 mg Q8 IV Last administered on 10/18/16 06:16; Admin Dose 5 MG; Start 10/06/16 at 22:00 Voriconazole 200 mg 200 mg BID PO Last administered on 10/18/16 08:25; Admin Dose 200 MG; Start 10/08/16 at 21:00 Colistimethate Sodium/Sodium Chloride (Coly-Mycin/NS) 100 ml @ 200 mls/hr Q12 IVPB Last administered on 10/18/16 08:25; Admin Dose 200 MLS/HR; Start at 13:30 MAGGIE DINERO MD Oct 18, 2016 09:31
[2016-10-18 10:28] LABS: ADD SCAN DIFF NO
[2016-10-18 10:30] LABS: ABNORMAL IP MESSAGE 1; BASOPHILS % 0.2 % (0.0-2.0); EOSINOPHILS # 0.2 10^3/ul (0.0-0.5); EOSINOPHILS % 1.7 % (0.0-7.0); HEMATOCRIT 28.4 % (42.0-52.0); HEMOGLOBIN 8.6 g/dl (14.0-18.0); LYMPHOCYTES # 2.2 10^3/ul (0.8-2.9); LYMPHOCYTES % 18.5 % (15.0-51.0); MEAN CORPUSCULAR HEMOGLOBIN 25.9 pg (29.0-33.0); MEAN CORPUSCULAR HGB CONC 30.3 g/dl (32.0-37.0); MEAN CORPUSCULAR VOLUME 85.5 fl (82.0-101.0); MEAN PLATELET VOLUME 11.8 fl (7.4-10.4); MONOCYTE # 1.7 10^3/ul (0.3-0.9); MONOCYTES % 13.9 % (0.0-11.0); NEUTROPHIL # 7.8 10^3/ul (1.6-7.5); NEUTROPHILS % 65.3 % (39.0-77.0); PLATELET COUNT 219 10^3/UL (140-415); RED BLOOD COUNT 3.32 10^6/ul (4.70-6.10); RED CELL DISTRIBUTION WIDTH 18.6 % (11.5-14.5); WHITE BLOOD COUNT 11.9 10^3/ul (4.8-10.8)
[2016-10-18 10:57] LABS: CREATININE 0.51 mg/dl (0.61-1.24)
[2016-10-18 10:58] LABS: CALCIUM 7.4 mg/dl (8.4-10.2)
--- NOTE | 2016-10-18 11:12 | PN ---
DATE: 10/18/2016 SUBJECTIVE: The patient is not verbal and he does have contractures of the lower extremities and a large penoscrotal swelling and edema. OBJECTIVE: VITAL SIGNS: His temperature is 98.9, pulse is 115, respiration 23, blood pressure 106/59. EXTREMITIES: The lower extremities are very contracted and the scrotum and penis are swollen and a little red. It does not look that they are any different from before and the Cee catheter that he has is draining clear urine. LABORATORY DATA: His CBC shows a white count of 11.9, hemoglobin 8.6, hematocrit 28.4. The BUN is 15, creatinine 0.48. Electrolytes are normal. Urine culture was initially Teresita glabrata. The p atient was on fluconazole before and that was stopped. For now, just keep the Cee catheter in and elevate the scrotum and penis on a towel as much as possible and keep a pillow between his knees to keep the legs . Dictated By: MISHEL WOODWARD/ELIZABETH Conf#: [id number] DID#: [id number]
--- NOTE | 2016-10-18 11:19 | CONS ---
Date/Time of Note Date/Time of Note DATE: 10/18/16 TIME: 11:19 Assessment/Plan Assessment/Plan Chief Complaint/Hosp Course ANEMIA - NEAR- MICROCYTIC WITH INCREASED RDW DROP H/H DURING HOSPITALIZATION + ACD TRANSFUSE PRBC TO KEEP HB MORE THAN 8 TRANSFUSE NEEDED GI F-UP Stool OB, negative Monitor H&H, transfuse 2 units for hemoglobin less than 8 LEUKOCYTOSIS- REACTIVE CONT ATB FOR SEPSIS THROMBOCYTOSIS REACTIVE SHOULD IMPROVE WITH RESOLUTION OF SEPSIS Severe sepsis with septic shock 2/2 Decub ulcers and/or UTI and/or PNA: stable, off pressor support Severe hypernatremic dehydration Acute renal failure 2/2 ATN from dehydration UTI Multifocal pneumonia Encephalopathy ?acute versus acute on chronic (baseline unknown) Hypokalemia Problems: Consultation Date/Type/Reason Admit Date/Time Sep 24, 2016 at 03:19 Initial Consult Date 09/24/16 [facility] Referring Provider: FELIX BLAKE DO 24 HR Interval Summary Free Text/Dictation No acute changes per RN, the patient is lying comfortably in bed, non- communicative, no fevers. He is tachycardic. Exam/Review of Systems Vital Signs Vitals Vital Signs Date Time Temp Pulse Resp B/P Pulse Ox O2 Delivery O2 Flow Rate FiO2 10/18/16 09:20 115 23 96 30 10/18/16 07:25 98.9 106/59 10/15/16 19:00 Mechanical Ventilator Intake and Output 10/17/16 10/17/16 10/18/16 15:00 23:00 07:00 Intake Total 1300 ml 500 ml Output Total 1800 ml Balance -500 ml 500 ml Exam PHYSICAL EXAMINATION: GENERAL: This is a chronically ill-appearing, elderly man who is lying comfortably in bed. HEENT: Head atraumatic, normocephalic. Sclerae anicteric. Buccal mucosa dry. NECK: Supple. Tracheostomy present. CHEST: Rise symmetrical. Breath sounds diminished to bases. HEART: S1, S2. ABDOMEN: Distended, soft. Bowel sounds hypoactive. EXTREMITIES: Bilateral trace edema. Results Result Diagram: 10/18/16 1011 10/18/16 1011 Results 24 hrs Laboratory Tests Test 10/17/16 12:28 10/17/16 13:30 10/18/16 10:11 Hemoglobin 7.6 L 8.6 L Hematocrit 25.0 L 28.4 L Stool Occult Blood NEGATIVE White Blood Count 11.9 #H Red Blood Count 3.32 L Mean Corpuscular Volume 85.5 Mean Corpuscular Hemoglobin 25.9 L Mean Corpuscular Hemoglobin Concent 30.3 L Red Cell Distribution Width 18.6 H Platelet Count 219 Mean Platelet Volume 11.8 H Neutrophils % 65.3 Lymphocytes % 18.5 Monocytes % 13.9 H Eosinophils % 1.7 Basophils % 0.2 Nucleated Red Blood Cells % 0.0 Neutrophils # 7.8 H Lymphocytes # 2.2 Monocytes # 1.7 H Eosinophils # 0.2 Basophils # 0.0 Nucleated Red Blood Cells # 0.0 Sodium Level 137 Potassium Level 4.0 Chloride Level 108 Carbon Dioxide Level 21 Anion Gap 12 Blood Urea Nitrogen 15 Creatinine 0.51 L Glucose Level 104 Calcium Level 7.4 L Medications Medications Current Medications Acetaminophen (Tylenol Supp) 650 mg Q4H PRN [place] PAIN LEVEL 1-3 OR FEVER; Start 09/24/16 at 03:00 Eye Lubricant (Artificial Tears Oph) 1 drop TID BOTH EYES Last administered on 10/18/16 08:26; Admin Dose 1 DROP; Start 09/24/16 at 09:00 Sodium Hypochlorite (Dakin'S (1/4 Strength)) 1 applic BID IRR Last administered on 10/18/16 08:26; Admin Dose 1 APPLIC; Start 09/24/16 at 21:00 Pantoprazole (Protonix Iv) 40 mg BID@06,18 IV Last administered on 10/18/16 06 :16; Admin Dose 40 MG; Start 09/24/16 at 18:00 Collagenase (Santyl) 1 applic DAILY TOP Last administered on 10/18/16 08:26; Admin Dose 1 APPLIC; Start 09/24/16 at 20:30 Miscellaneous Information 1 ea NOTE XX ; Start 09/24/16 at 21:00 Glucose (Glutose) 15 gm Q15M PRN PO DECREASED GLUCOSE; Start 09/24/16 at 21:00 Glucose (Glutose) 22.5 gm Q15M PRN PO DECREASED GLUCOSE; Start 09/24/16 at 21: 00 Dextrose (D50w Syringe) 25 ml Q15M PRN IV DECREASED GLUCOSE; Start 09/24/16 at 21:00 Dextrose (D50w Syringe) 50 ml Q15M PRN IV DECREASED GLUCOSE; Start 09/24/16 at 21:00 Glucagon (Glucagen) 1 mg Q15M PRN IM DECREASED GLUCOSE; Start 09/24/16 at 21:00 Glucose 15 gm 15 gm Q15M PRN BUCCAL DECREASED GLUCOSE; Start 09/24/16 at 21:00 Acetaminophen (Ofirmev 1000mg/ 100ml Iv) 100 ml @ 400 mls/hr Q6H PRN IVPB FEVER Last administered on 10/07/16 17:14; Admin Dose 400 MLS/HR; Start at 22:00 Vancomycin HCl (Vancomycin Oral Syringe) 250 mg Q6 PO Last administered on 17:15; Admin Dose 250 MG; Start 09/26/16 at 18:00; Status Future Hold Lactobacillus Acidoph/Bulgaricus (Floranex) 1 tab TID PO Last administered on 13:22; Admin Dose 1 TAB; Start 09/26/16 at 21:00; Status Future Hold Atorvastatin Calcium (Lipitor) 20 mg QHS GTB Last administered on 10/05/16 21: 42; Admin Dose 20 MG; Start 09/28/16 at 21:00; Status Future Hold Finasteride (Proscar) 5 mg DAILY GTB Last administered on 10/06/16 09:12; Admin Dose 5 MG; Start 09/29/16 at 09:00; Status Future Hold Multivitamins Therapeutic (Theragran) 1 tab DAILY GTB Last administered on 09:12; Admin Dose 1 TAB; Start 09/29/16 at 09:00; Status Future Hold Zinc Sulfate (Zinc Sulfate) 220 mg DAILY NGT Last administered on 10/06/16 09: 13; Admin Dose 220 MG; Start 09/29/16 at 09:00; Status Future Hold Ondansetron HCl (Zofran Inj) 4 mg Q6H PRN IV NAUSEA AND/OR VOMITING Last administered on 10/13/16 16:10; Admin Dose 4 MG; Start 09/29/16 at 07:30 Acetaminophen 650 mg 650 mg Q6H PRN GTB PAIN AND OR ELEVATED TEMP Last administered on 10/10/16 20:23; Admin Dose 650 MG; Start 10/02/16 at 08:00 Metronidazole (Flagyl 500 Mg (Pmx)) 100 ml @ 100 mls/hr Q8 IVPB Last administered on 10/18/16 06:16; Admin Dose 100 MLS/HR; Start 10/02/16 at 14:00 Midodrine 10 mg 10 mg TID@,,17 PO Last administered on 10/06/16 17:15; Admin Dose 10 MG; Start 10/06/16 at 01:00; Status Future Hold Linezolid (Zyvox 600mg/D5W (Pmx)) 300 ml @ 300 mls/hr Q12 IVPB Last administered on 10/18/16 08:25; Admin Dose 300 MLS/HR; Start 10/06/16 at 21:00 Levothyroxine Sodium (Synthroid Iv) 12.5 mcg DAILY@06 IV Last administered on 06:16; Admin Dose 12.5 MCG; Start 10/07/16 at 06:00 Metoclopramide HCl (Reglan) 5 mg Q8 IV Last administered on 10/18/16 06:16; Admin Dose 5 MG; Start 10/06/16 at 22:00 Voriconazole 200 mg 200 mg BID PO Last administered on 10/18/16 08:25; Admin Dose 200 MG; Start 10/08/16 at 21:00 Colistimethate Sodium/Sodium Chloride (Coly-Mycin/NS) 100 ml @ 200 mls/hr Q12 IVPB Last administered on 10/18/16 08:25; Admin Dose 200 MLS/HR; Start at 13:30 SCOTT RODRIGUES MD Oct 18, 2016 11:19
--- NOTE | 2016-10-18 12:12 | CONS ---
Date/Time of Note Date/Time of Note DATE: 10/18/16 TIME: 12:09 Assessment/Plan Assessment/Plan Additional Assessment/Plan Ventilator settings; AC of 16, tidal volume 500, PEEP of 5, 30% FiO2. Assessment recommendations; 1. Patient admitted for UTI and sepsis as well as pneumonia. 2. Sacral decubitus ulcer with osteo-myelitis. 3. Chronic respiratory failure, ventilator dependent. 4. Thank for dementia. Continue current supportive care. Overall prognosis remains poor. Consultation Date/Type/Reason Admit Date/Time Sep 24, 2016 at 03:19 Initial Consult Date 09/24/16 Type of Consultation: Pulmonary/critical care Referring Provider: FELIX BLAKE DO 24 HR Interval Summary Free Text/Dictation Patient condition remains unchanged. Remains essentially unresponsive. Patient however has remained hemodynamically stable. General exam; elderly male, on ventilator via tracheostomy currently in no distress. Exam/Review of Systems Vital Signs Vitals Vital Signs Date Time Temp Pulse Resp B/P Pulse Ox O2 Delivery O2 Flow Rate FiO2 10/18/16 11:20 98.7 78 24 116/66 98 10/18/16 11:10 30 10/15/16 19:00 Mechanical Ventilator Intake and Output 10/17/16 10/17/16 10/18/16 15:00 23:00 07:00 Intake Total 1300 ml 500 ml Output Total 1800 ml Balance -500 ml 500 ml Exam HEENT exam is; supple neck, no JVD. No lymphadenopathy. Midline trachea. Tracheostomy in place with clean insertion site. Chest examined; diminished but clear breath sounds bilaterally. S1-S2 audible, no murmurs. Regular rhythm. Abdomen examination; soft, no organomegaly G-tube in place. Bowel sounds audible. Extremity exam is; no peripheral edema. Back examination reveals dressing applied over sacrum. DESK TOP PUBLISHER examination; patient is unresponsive. Occasionally opens eyes on deep sternal rubbing. Results Result Diagram: 10/18/16 1011 10/18/16 1011 Results 24 hrs Laboratory Tests Test 10/17/16 12:28 10/17/16 13:30 10/18/16 10:11 Hemoglobin 7.6 L 8.6 L Hematocrit 25.0 L 28.4 L Stool Occult Blood NEGATIVE White Blood Count 11.9 #H Red Blood Count 3.32 L Mean Corpuscular Volume 85.5 Mean Corpuscular Hemoglobin 25.9 L Mean Corpuscular Hemoglobin Concent 30.3 L Red Cell Distribution Width 18.6 H Platelet Count 219 Mean Platelet Volume 11.8 H Neutrophils % 65.3 Lymphocytes % 18.5 Monocytes % 13.9 H Eosinophils % 1.7 Basophils % 0.2 Nucleated Red Blood Cells % 0.0 Neutrophils # 7.8 H Lymphocytes # 2.2 Monocytes # 1.7 H Eosinophils # 0.2 Basophils # 0.0 Nucleated Red Blood Cells # 0.0 Sodium Level 137 Potassium Level 4.0 Chloride Level 108 Carbon Dioxide Level 21 Anion Gap 12 Blood Urea Nitrogen 15 Creatinine 0.51 L Glucose Level 104 Calcium Level 7.4 L Medications Medications Current Medications Acetaminophen (Tylenol Supp) 650 mg Q4H PRN [place] PAIN LEVEL 1-3 OR FEVER; Start 09/24/16 at 03:00 Eye Lubricant (Artificial Tears Oph) 1 drop TID BOTH EYES Last administered on 10/18/16 08:26; Admin Dose 1 DROP; Start 09/24/16 at 09:00 Sodium Hypochlorite (Dakin'S (1/4 Strength)) 1 applic BID IRR Last administered on 10/18/16 08:26; Admin Dose 1 APPLIC; Start 09/24/16 at 21:00 Pantoprazole (Protonix Iv) 40 mg BID@06,18 IV Last administered on 10/18/16 06 :16; Admin Dose 40 MG; Start 09/24/16 at 18:00 Collagenase (Santyl) 1 applic DAILY TOP Last administered on 10/18/16 08:26; Admin Dose 1 APPLIC; Start 09/24/16 at 20:30 Miscellaneous Information 1 ea NOTE XX ; Start 09/24/16 at 21:00 Glucose (Glutose) 15 gm Q15M PRN PO DECREASED GLUCOSE; Start 09/24/16 at 21:00 Glucose (Glutose) 22.5 gm Q15M PRN PO DECREASED GLUCOSE; Start 09/24/16 at 21: 00 Dextrose (D50w Syringe) 25 ml Q15M PRN IV DECREASED GLUCOSE; Start 09/24/16 at 21:00 Dextrose (D50w Syringe) 50 ml Q15M PRN IV DECREASED GLUCOSE; Start 09/24/16 at 21:00 Glucagon (Glucagen) 1 mg Q15M PRN IM DECREASED GLUCOSE; Start 09/24/16 at 21:00 Glucose 15 gm 15 gm Q15M PRN BUCCAL DECREASED GLUCOSE; Start 09/24/16 at 21:00 Acetaminophen (Ofirmev 1000mg/ 100ml Iv) 100 ml @ 400 mls/hr Q6H PRN IVPB FEVER Last administered on 10/07/16 17:14; Admin Dose 400 MLS/HR; Start at 22:00 Vancomycin HCl (Vancomycin Oral Syringe) 250 mg Q6 PO Last administered on 17:15; Admin Dose 250 MG; Start 09/26/16 at 18:00; Status Future Hold Lactobacillus Acidoph/Bulgaricus (Floranex) 1 tab TID PO Last administered on 13:22; Admin Dose 1 TAB; Start 09/26/16 at 21:00; Status Future Hold Atorvastatin Calcium (Lipitor) 20 mg QHS GTB Last administered on 10/05/16 21: 42; Admin Dose 20 MG; Start 09/28/16 at 21:00; Status Future Hold Finasteride (Proscar) 5 mg DAILY GTB Last administered on 10/06/16 09:12; Admin Dose 5 MG; Start 09/29/16 at 09:00; Status Future Hold Multivitamins Therapeutic (Theragran) 1 tab DAILY GTB Last administered on 09:12; Admin Dose 1 TAB; Start 09/29/16 at 09:00; Status Future Hold Zinc Sulfate (Zinc Sulfate) 220 mg DAILY NGT Last administered on 10/06/16 09: 13; Admin Dose 220 MG; Start 09/29/16 at 09:00; Status Future Hold Ondansetron HCl (Zofran Inj) 4 mg Q6H PRN IV NAUSEA AND/OR VOMITING Last administered on 10/13/16 16:10; Admin Dose 4 MG; Start 09/29/16 at 07:30 Acetaminophen 650 mg 650 mg Q6H PRN GTB PAIN AND OR ELEVATED TEMP Last administered on 10/10/16 20:23; Admin Dose 650 MG; Start 10/02/16 at 08:00 Metronidazole (Flagyl 500 Mg (Pmx)) 100 ml @ 100 mls/hr Q8 IVPB Last administered on 10/18/16 06:16; Admin Dose 100 MLS/HR; Start 10/02/16 at 14:00 Midodrine 10 mg 10 mg TID@,,17 PO Last administered on 10/06/16 17:15; Admin Dose 10 MG; Start 10/06/16 at 01:00; Status Future Hold Linezolid (Zyvox 600mg/D5W (Pmx)) 300 ml @ 300 mls/hr Q12 IVPB Last administered on 10/18/16 08:25; Admin Dose 300 MLS/HR; Start 10/06/16 at 21:00 Levothyroxine Sodium (Synthroid Iv) 12.5 mcg DAILY@06 IV Last administered on 06:16; Admin Dose 12.5 MCG; Start 10/07/16 at 06:00 Metoclopramide HCl (Reglan) 5 mg Q8 IV Last administered on 10/18/16 06:16; Admin Dose 5 MG; Start 10/06/16 at 22:00 Voriconazole 200 mg 200 mg BID PO Last administered on 10/18/16 08:25; Admin Dose 200 MG; Start 10/08/16 at 21:00 Colistimethate Sodium/Sodium Chloride (Coly-Mycin/NS) 100 ml @ 200 mls/hr Q12 IVPB Last administered on 10/18/16 08:25; Admin Dose 200 MLS/HR; Start at 13:30 MAIN SALTER Oct 18, 2016 12:12
--- NOTE | 2016-10-18 15:44 | PN ---
Date/Time of Note Date/Time of Note DATE: 10/18/16 TIME: 15:44 Assessment/Plan VTE Prophylaxis VTE Prophylaxis Intervention: SCD's Lines/Catheters IV Catheter Type (from Nrsg): Central Line Central line still needed: No Urinary Cath still in place: Yes Reason Cath still needed: urinary retention Assessment/Plan Chief Complaint/Hosp Course The patient with no cahgne Problems: Assessment/Plan Severe septic shock Preserved ejection fraction Moderate aortic stenosis Respiratory failure/Tracheostomy Coronary artery disease Anemia Acute kidney injury >resolved -Patient off IV pressors -antibiotics as per infectious disease -withhold any antihypertensives at the current time given recent sepsis. Subjective 24 Hr Interval Summary Free Text/Dictation the patint with no cahnge Exam/Review of Systems Vital Signs Vitals Vital Signs Date Time Temp Pulse Resp B/P Pulse Ox O2 Delivery O2 Flow Rate FiO2 10/18/16 15:33 98.6 123 37 102/55 96 10/18/16 13:10 30 10/15/16 19:00 Mechanical Ventilator Intake and Output 10/17/16 10/17/16 10/18/16 15:00 23:00 07:00 Intake Total 1300 ml 500 ml Output Total 1800 ml Balance -500 ml 500 ml Results Result Diagram: 10/18/16 1011 10/18/16 1011 Results 24 hrs Laboratory Tests Test 10/18/16 10:11 White Blood Count 11.9 #H Red Blood Count 3.32 L Hemoglobin 8.6 L Hematocrit 28.4 L Mean Corpuscular Volume 85.5 Mean Corpuscular Hemoglobin 25.9 L Mean Corpuscular Hemoglobin Concent 30.3 L Red Cell Distribution Width 18.6 H Platelet Count 219 Mean Platelet Volume 11.8 H Neutrophils % 65.3 Lymphocytes % 18.5 Monocytes % 13.9 H Eosinophils % 1.7 Basophils % 0.2 Nucleated Red Blood Cells % 0.0 Neutrophils # 7.8 H Lymphocytes # 2.2 Monocytes # 1.7 H Eosinophils # 0.2 Basophils # 0.0 Nucleated Red Blood Cells # 0.0 Sodium Level 137 Potassium Level 4.0 Chloride Level 108 Carbon Dioxide Level 21 Anion Gap 12 Blood Urea Nitrogen 15 Creatinine 0.51 L Glucose Level 104 Calcium Level 7.4 L Medications Medications Current Medications Acetaminophen (Tylenol Supp) 650 mg Q4H PRN [place] PAIN LEVEL 1-3 OR FEVER; Start 09/24/16 at 03:00 Eye Lubricant (Artificial Tears Oph) 1 drop TID BOTH EYES Last administered on 10/18/16 12:17; Admin Dose 1 DROP; Start 09/24/16 at 09:00 Sodium Hypochlorite (Dakin'S (1/4 Strength)) 1 applic BID IRR Last administered on 10/18/16 08:26; Admin Dose 1 APPLIC; Start 09/24/16 at 21:00 Pantoprazole (Protonix Iv) 40 mg BID@06,18 IV Last administered on 10/18/16 06 :16; Admin Dose 40 MG; Start 09/24/16 at 18:00 Collagenase (Santyl) 1 applic DAILY TOP Last administered on 10/18/16 08:26; Admin Dose 1 APPLIC; Start 09/24/16 at 20:30 Miscellaneous Information 1 ea NOTE XX ; Start 09/24/16 at 21:00 Glucose (Glutose) 15 gm Q15M PRN PO DECREASED GLUCOSE; Start 09/24/16 at 21:00 Glucose (Glutose) 22.5 gm Q15M PRN PO DECREASED GLUCOSE; Start 09/24/16 at 21: 00 Dextrose (D50w Syringe) 25 ml Q15M PRN IV DECREASED GLUCOSE; Start 09/24/16 at 21:00 Dextrose (D50w Syringe) 50 ml Q15M PRN IV DECREASED GLUCOSE; Start 09/24/16 at 21:00 Glucagon (Glucagen) 1 mg Q15M PRN IM DECREASED GLUCOSE; Start 09/24/16 at 21:00 Glucose 15 gm 15 gm Q15M PRN BUCCAL DECREASED GLUCOSE; Start 09/24/16 at 21:00 Acetaminophen (Ofirmev 1000mg/ 100ml Iv) 100 ml @ 400 mls/hr Q6H PRN IVPB FEVER Last administered on 10/07/16 17:14; Admin Dose 400 MLS/HR; Start at 22:00 Vancomycin HCl (Vancomycin Oral Syringe) 250 mg Q6 PO Last administered on 17:15; Admin Dose 250 MG; Start 09/26/16 at 18:00; Status Future Hold Lactobacillus Acidoph/Bulgaricus (Floranex) 1 tab TID PO Last administered on 13:22; Admin Dose 1 TAB; Start 09/26/16 at 21:00; Status Future Hold Atorvastatin Calcium (Lipitor) 20 mg QHS GTB Last administered on 10/05/16 21: 42; Admin Dose 20 MG; Start 09/28/16 at 21:00; Status Future Hold Finasteride (Proscar) 5 mg DAILY GTB Last administered on 10/06/16 09:12; Admin Dose 5 MG; Start 09/29/16 at 09:00; Status Future Hold Multivitamins Therapeutic (Theragran) 1 tab DAILY GTB Last administered on 09:12; Admin Dose 1 TAB; Start 09/29/16 at 09:00; Status Future Hold Zinc Sulfate (Zinc Sulfate) 220 mg DAILY NGT Last administered on 10/06/16 09: 13; Admin Dose 220 MG; Start 09/29/16 at 09:00; Status Future Hold Ondansetron HCl (Zofran Inj) 4 mg Q6H PRN IV NAUSEA AND/OR VOMITING Last administered on 10/13/16 16:10; Admin Dose 4 MG; Start 09/29/16 at 07:30 Acetaminophen 650 mg 650 mg Q6H PRN GTB PAIN AND OR ELEVATED TEMP Last administered on 10/10/16 20:23; Admin Dose 650 MG; Start 10/02/16 at 08:00 Metronidazole (Flagyl 500 Mg (Pmx)) 100 ml @ 100 mls/hr Q8 IVPB Last administered on 10/18/16 13:07; Admin Dose 100 MLS/HR; Start 10/02/16 at 14:00 Midodrine 10 mg 10 mg TID@,,17 PO Last administered on 10/06/16 17:15; Admin Dose 10 MG; Start 10/06/16 at 01:00; Status Future Hold Linezolid (Zyvox 600mg/D5W (Pmx)) 300 ml @ 300 mls/hr Q12 IVPB Last administered on 10/18/16 08:25; Admin Dose 300 MLS/HR; Start 10/06/16 at 21:00 Levothyroxine Sodium (Synthroid Iv) 12.5 mcg DAILY@06 IV Last administered on 06:16; Admin Dose 12.5 MCG; Start 10/07/16 at 06:00 Metoclopramide HCl (Reglan) 5 mg Q8 IV Last administered on 10/18/16 13:07; Admin Dose 5 MG; Start 10/06/16 at 22:00 Voriconazole 200 mg 200 mg BID PO Last administered on 10/18/16 08:25; Admin Dose 200 MG; Start 10/08/16 at 21:00 Colistimethate Sodium/Sodium Chloride (Coly-Mycin/NS) 100 ml @ 200 mls/hr Q12 IVPB Last administered on 10/18/16 08:25; Admin Dose 200 MLS/HR; Start at 13:30 HUGO DIAZ MD Oct 18, 2016 15:44
--- NOTE | 2016-10-18 15:46 | PN ---
Date/Time of Note Date/Time of Note DATE: 10/18/16 TIME: 15:44 Assessment/Plan VTE Prophylaxis VTE Prophylaxis Intervention: contraindicated Lines/Catheters IV Catheter Type (from Nrs): Central Line Central line still needed: Yes Urinary Cath still in place: Yes Reason Cath still needed: other (indicate) (monitor I&O) Assessment/Plan Chief Complaint/Hosp Course assessment and plan 1. Sepsis secondary to infected sacral decubitus ulcers with multiple organisms including Klebsiella pneumonia, Acinetobacter baumannii, VRE, staph aureus. ID following. Continue antibiotics. remains off pressors at this time 2. Sacral decubitus ulcer with infection. Continue with wound care. Continue with analgesics as needed. on abx 3. Acute renal insufficiency. Stable at present. Avoid nephrotoxic medications.continue with nephrology recs 4. Chronic respiratory failure. Alternative Energy Technician on the case. Continue bronchodilators and pulmonary hygiene 5. 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 On antibiotics. Continuing wound care. surgeon following 6. Encephalopathy (chronic). Continue to turn every 2 hours as needed. Continue with aspiration precautions 7. Hypothyroidism. Continue on Synthroid 8. Dysphagia. Continue aspiration precautions. We'll graduate PEG tube feedings as tolerated 9. Anemia of chronic disease. H&H remained stable. We'll monitor 10. Leukocytosis with thrombocytosis. Oncologist/team facilitator following. Continued recommendations 11. Ileus. resolved. monitor DVT prophylaxis: Heparin Disposition and plan: Palliative care physician following. Patient is DNR. Discussed with social service coordinator. Plan for family meeting. Overall prognosis remains poor. Follow-up with family goals of care. Discussed plan of care with Dr. Mullins Problems: Subjective 24 Hr Interval Summary Free Text/Dictation Alert to verbal response but no purposeful response back. No distress seen Exam/Review of Systems Vital Signs Vitals Vital Signs Date Time Temp Pulse Resp B/P Pulse Ox O2 Delivery O2 Flow Rate FiO2 10/18/16 15:33 98.6 123 37 102/55 96 10/18/16 13:10 30 10/15/16 19:00 Mechanical Ventilator Intake and Output 10/17/16 10/17/16 10/18/16 14:59 22:59 06:59 Intake Total 1300 ml 500 ml Output Total 1800 ml Balance -500 ml 500 ml Exam General: On mechanical ventilation. No apparent distress. Comfortable at present Eyes: Equal round. Able to track Neck: Tracheostomy in place. Cardiac: Remains regular rate. Noted with heart murmur still today. Unchanged Pulmonary: On mechanical ventilation. Diminished at bases still GI: PEG tube in place. Extremities: Edema noted bilateral lower extremities as well as upper extremities still, unchanged Skin: decubitus ulcers Neurologic: Alert. No purposeful response Results Result Diagram: 10/18/16 1011 10/18/16 1011 Results 24 hrs Laboratory Tests Test 10/18/16 10:11 White Blood Count 11.9 #H Red Blood Count 3.32 L Hemoglobin 8.6 L Hematocrit 28.4 L Mean Corpuscular Volume 85.5 Mean Corpuscular Hemoglobin 25.9 L Mean Corpuscular Hemoglobin Concent 30.3 L Red Cell Distribution Width 18.6 H Platelet Count 219 Mean Platelet Volume 11.8 H Neutrophils % 65.3 Lymphocytes % 18.5 Monocytes % 13.9 H Eosinophils % 1.7 Basophils % 0.2 Nucleated Red Blood Cells % 0.0 Neutrophils # 7.8 H Lymphocytes # 2.2 Monocytes # 1.7 H Eosinophils # 0.2 Basophils # 0.0 Nucleated Red Blood Cells # 0.0 Sodium Level 137 Potassium Level 4.0 Chloride Level 108 Carbon Dioxide Level 21 Anion Gap 12 Blood Urea Nitrogen 15 Creatinine 0.51 L Glucose Level 104 Calcium Level 7.4 L Medications Medications Current Medications Acetaminophen (Tylenol Supp) 650 mg Q4H PRN [place] PAIN LEVEL 1-3 OR FEVER; Start 09/24/16 at 03:00 Eye Lubricant (Artificial Tears Oph) 1 drop TID BOTH EYES Last administered on 10/18/16 12:17; Admin Dose 1 DROP; Start 09/24/16 at 09:00 Sodium Hypochlorite (Dakin'S (1/4 Strength)) 1 applic BID IRR Last administered on 10/18/16 08:26; Admin Dose 1 APPLIC; Start 09/24/16 at 21:00 Pantoprazole (Protonix Iv) 40 mg BID@06,18 IV Last administered on 10/18/16 06 :16; Admin Dose 40 MG; Start 09/24/16 at 18:00 Collagenase (Santyl) 1 applic DAILY TOP Last administered on 10/18/16 08:26; Admin Dose 1 APPLIC; Start 09/24/16 at 20:30 Miscellaneous Information 1 ea NOTE XX ; Start 09/24/16 at 21:00 Glucose (Glutose) 15 gm Q15M PRN PO DECREASED GLUCOSE; Start 09/24/16 at 21:00 Glucose (Glutose) 22.5 gm Q15M PRN PO DECREASED GLUCOSE; Start 09/24/16 at 21: 00 Dextrose (D50w Syringe) 25 ml Q15M PRN IV DECREASED GLUCOSE; Start 09/24/16 at 21:00 Dextrose (D50w Syringe) 50 ml Q15M PRN IV DECREASED GLUCOSE; Start 09/24/16 at 21:00 Glucagon (Glucagen) 1 mg Q15M PRN IM DECREASED GLUCOSE; Start 09/24/16 at 21:00 Glucose 15 gm 15 gm Q15M PRN BUCCAL DECREASED GLUCOSE; Start 09/24/16 at 21:00 Acetaminophen (Ofirmev 1000mg/ 100ml Iv) 100 ml @ 400 mls/hr Q6H PRN IVPB FEVER Last administered on 10/07/16 17:14; Admin Dose 400 MLS/HR; Start at 22:00 Vancomycin HCl (Vancomycin Oral Syringe) 250 mg Q6 PO Last administered on 17:15; Admin Dose 250 MG; Start 09/26/16 at 18:00; Status Future Hold Lactobacillus Acidoph/Bulgaricus (Floranex) 1 tab TID PO Last administered on 13:22; Admin Dose 1 TAB; Start 09/26/16 at 21:00; Status Future Hold Atorvastatin Calcium (Lipitor) 20 mg QHS GTB Last administered on 10/05/16 21: 42; Admin Dose 20 MG; Start 09/28/16 at 21:00; Status Future Hold Finasteride (Proscar) 5 mg DAILY GTB Last administered on 10/06/16 09:12; Admin Dose 5 MG; Start 09/29/16 at 09:00; Status Future Hold Multivitamins Therapeutic (Theragran) 1 tab DAILY GTB Last administered on 09:12; Admin Dose 1 TAB; Start 09/29/16 at 09:00; Status Future Hold Zinc Sulfate (Zinc Sulfate) 220 mg DAILY NGT Last administered on 10/06/16 09: 13; Admin Dose 220 MG; Start 09/29/16 at 09:00; Status Future Hold Ondansetron HCl (Zofran Inj) 4 mg Q6H PRN IV NAUSEA AND/OR VOMITING Last administered on 10/13/16 16:10; Admin Dose 4 MG; Start 09/29/16 at 07:30 Acetaminophen 650 mg 650 mg Q6H PRN GTB PAIN AND OR ELEVATED TEMP Last administered on 10/10/16 20:23; Admin Dose 650 MG; Start 10/02/16 at 08:00 Metronidazole (Flagyl 500 Mg (Pmx)) 100 ml @ 100 mls/hr Q8 IVPB Last administered on 10/18/16 13:07; Admin Dose 100 MLS/HR; Start 10/02/16 at 14:00 Midodrine 10 mg 10 mg TID@,, PO Last administered on 10/06/16 17:15; Admin Dose 10 MG; Start 10/06/16 at 01:00; Status Future Hold Linezolid (Zyvox 600mg/D5W (Pmx)) 300 ml @ 300 mls/hr Q12 IVPB Last administered on 10/18/16 08:25; Admin Dose 300 MLS/HR; Start 10/06/16 at 21:00 Levothyroxine Sodium (Synthroid Iv) 12.5 mcg DAILY@06 IV Last administered on 06:16; Admin Dose 12.5 MCG; Start 10/07/16 at 06:00 Metoclopramide HCl (Reglan) 5 mg Q8 IV Last administered on 10/18/16 13:07; Admin Dose 5 MG; Start 10/06/16 at 22:00 Voriconazole 200 mg 200 mg BID PO Last administered on 10/18/16 08:25; Admin Dose 200 MG; Start 10/08/16 at 21:00 Colistimethate Sodium/Sodium Chloride (Coly-Mycin/NS) 100 ml @ 200 mls/hr Q12 IVPB Last administered on 10/18/16 08:25; Admin Dose 200 MLS/HR; Start at 13:30 TAMMIE RIBERA Oct 18, 2016 15:46
--- NOTE | 2016-10-18 22:59 | PN ---
Date/Time of Note Date/Time of Note DATE: 10/18/16 TIME: 22:57 Assessment/Plan Lines/Catheters IV Catheter Type (from [facility]): Central Line Cee in Place (from [facility]): Yes Assessment/Plan Chief Complaint/Hosp Course 1. Shock, septic (uti, pna, wound). -Judicious fluid management -Supportive measures -Antibiotics 2. Multiple decubitus ulcerations with necrotic tissue and deep tissue injury -Offload -Local care -Vitamin C -Eventual nutritional optimization -Debridement when medically cleared 3. Contracted state with functional quadriplegia -Offloading -Nutritional optimization when possible 4. Anemia -Monitor 5. Ventilator dependent respiratory failure -Ventilator management and pulmonary toilet 6. Renal insufficiency -Judicious fluid management -Avoid nephrotoxic agents 7. Coronary artery disease and history of non-ST elevation [place] -Cardiac optimization Thank you Problems: Subjective 24 Hr Interval Summary Tachycardia. Low grade temp. Leukocytosis. No chills. No cough. No seizure. No rash. No blood rectum. No bloating. No seizures. No pyuria. Exam/Review of Systems Vital Signs Vitals Vital Signs Date Time Temp Pulse Resp B/P Pulse Ox O2 Delivery O2 Flow Rate FiO2 10/18/16 21:37 110 23 98 30 10/18/16 20:50 99.5 101/56 10/15/16 19:00 Mechanical Ventilator Intake and Output 10/17/16 10/17/16 10/18/16 15:00 23:00 07:00 Intake Total 1300 ml 500 ml Output Total 1800 ml Balance -500 ml 500 ml Exam Free Text/Dictation Constitutional: No alert, No oriented Psych: No nl mood/affect Head: atraumatic, normocephalic Eyes: nl conjunctiva, No EOMI, No icteric ENMT: mucosa pink and moist, nl external ears & nose Neck: jvd, other (Trach in place), No non-tender, No supple Respiratory: No congested cough, No labored breathing Cardiovascular: No regular rate and rhythm Gastrointestinal: non-tender, other (PEG in place), soft, No rebound or guarding Musculoskeletal: No joint tenderness, No nl extremities to inspection, No nl gait and stance Extremities: No calf tenderness, No cyanosis Neurological: No nl mental status, No nl speech, No nl strength Skin: rash or lesions (Multiple decubitus ulcerations with debris, necrotic tissue, deep tissue injury), No diaphoresis, No nl turgor Lymph: nontender Results Result Diagram: 10/18/16 1011 10/18/16 1011 EVA GUARDADO MD Oct 18, 2016 22:59
[2016-10-19] VITALS (25 sets, daily range): BP systolic 85–109; BP diastolic 5–61; PULSE 112–127; RESP 17–30
[2016-10-19] MEDS: IPRATROPIUM (HFA) 12.9 GM INHALER INH SCH ×4 (01:41→19:32)
[2016-10-19] MEDS: ALBUTEROL HFA 8 GM INHALER INH SCH ×4 (01:41→19:32)
[2016-10-19] MEDS: ACETAMINOPHEN 650MG/20.3ML CUP GTB PRN ×2 (04:32→17:55)
[2016-10-19] MEDS: metroNIDAZOLE 500 MG/NS (PMX) 100 ML IVPB SCH ×3 (05:28→22:22)
[2016-10-19] MEDS: METOCLOPRAMIDE 10 MG INJ IV SCH ×3 (05:28→21:34)
[2016-10-19] MEDS: PANTOPRAZOLE 40 MG INJ IV SCH ×2 (05:28→17:21)
[2016-10-19] MEDS: LEVOTHYROXINE 100 MCG VIAL IV SCH (05:28)
[2016-10-19] MEDS: COLISTIMETHATE 75 MG in SOD CHLORIDE 0.9% 100 ML IVPB SCH ×2 (08:05→21:12)
[2016-10-19] MEDS: VORICONAZOLE 200 MG TAB PO SCH ×2 (08:05→21:34)
[2016-10-19] MEDS: ARTIFICIAL TEARS 15 ML OPH BOTH EYES SCH ×3 (08:09→21:12)
--- NOTE | 2016-10-19 08:37 | PN ---
Date/Time of Note Date/Time of Note DATE: 10/19/16 TIME: 08:36 Assessment/Plan VTE Prophylaxis VTE Prophylaxis Intervention: SCD's Lines/Catheters IV Catheter Type (from Nrsg): Central Line Central line still needed: No Urinary Cath still in place: Yes Reason Cath still needed: urinary retention Assessment/Plan Chief Complaint/Hosp Course The patient with no cahgne Problems: Assessment/Plan Severe septic shock Preserved ejection fraction Moderate aortic stenosis Respiratory failure/Tracheostomy Coronary artery disease Anemia Acute kidney injury >resolved -Patient off IV pressors -antibiotics as per infectious disease -withhold any antihypertensives at the current time given recent sepsis -borderline low BP. Subjective 24 Hr Interval Summary Free Text/Dictation The patient with no change Exam/Review of Systems Vital Signs Vitals Vital Signs Date Time Temp Pulse Resp B/P Pulse Ox O2 Delivery O2 Flow Rate FiO2 10/19/16 08:26 112 10/19/16 07:59 24 95 30 10/19/16 07:43 100.4 87/50 10/15/16 19:00 Mechanical Ventilator Intake and Output 10/18/16 10/18/16 10/19/16 15:00 23:00 07:00 Intake Total 1300 ml 1300 ml 900 ml Output Total 400 ml 1000 ml 550 ml Balance 900 ml 300 ml 350 ml Results Result Diagram: 10/18/16 1011 10/18/16 1011 Results 24 hrs Laboratory Tests Test 10/18/16 10:11 White Blood Count 11.9 #H Red Blood Count 3.32 L Hemoglobin 8.6 L Hematocrit 28.4 L Mean Corpuscular Volume 85.5 Mean Corpuscular Hemoglobin 25.9 L Mean Corpuscular Hemoglobin Concent 30.3 L Red Cell Distribution Width 18.6 H Platelet Count 219 Mean Platelet Volume 11.8 H Neutrophils % 65.3 Lymphocytes % 18.5 Monocytes % 13.9 H Eosinophils % 1.7 Basophils % 0.2 Nucleated Red Blood Cells % 0.0 Neutrophils # 7.8 H Lymphocytes # 2.2 Monocytes # 1.7 H Eosinophils # 0.2 Basophils # 0.0 Nucleated Red Blood Cells # 0.0 Sodium Level 137 Potassium Level 4.0 Chloride Level 108 Carbon Dioxide Level 21 Anion Gap 12 Blood Urea Nitrogen 15 Creatinine 0.51 L Glucose Level 104 Calcium Level 7.4 L Medications Medications Current Medications Acetaminophen (Tylenol Supp) 650 mg Q4H PRN [place] PAIN LEVEL 1-3 OR FEVER; Start 09/24/16 at 03:00 Eye Lubricant (Artificial Tears Oph) 1 drop TID BOTH EYES Last administered on 10/19/16 08:09; Admin Dose 1 DROP; Start 09/24/16 at 09:00 Sodium Hypochlorite (Dakin'S (1/4 Strength)) 1 applic BID IRR Last administered on 10/18/16 20:54; Admin Dose 1 APPLIC; Start 09/24/16 at 21:00 Pantoprazole (Protonix Iv) 40 mg BID@06,18 IV Last administered on 10/19/16 05 :28; Admin Dose 40 MG; Start 09/24/16 at 18:00 Collagenase (Santyl) 1 applic DAILY TOP Last administered on 10/18/16 08:26; Admin Dose 1 APPLIC; Start 09/24/16 at 20:30 Miscellaneous Information 1 ea NOTE XX ; Start 09/24/16 at 21:00 Glucose (Glutose) 15 gm Q15M PRN PO DECREASED GLUCOSE; Start 09/24/16 at 21:00 Glucose (Glutose) 22.5 gm Q15M PRN PO DECREASED GLUCOSE; Start 09/24/16 at 21: 00 Dextrose (D50w Syringe) 25 ml Q15M PRN IV DECREASED GLUCOSE; Start 09/24/16 at 21:00 Dextrose (D50w Syringe) 50 ml Q15M PRN IV DECREASED GLUCOSE; Start 09/24/16 at 21:00 Glucagon (Glucagen) 1 mg Q15M PRN IM DECREASED GLUCOSE; Start 09/24/16 at 21:00 Glucose 15 gm 15 gm Q15M PRN BUCCAL DECREASED GLUCOSE; Start 09/24/16 at 21:00 Acetaminophen (Ofirmev 1000mg/ 100ml Iv) 100 ml @ 400 mls/hr Q6H PRN IVPB FEVER Last administered on 10/07/16 17:14; Admin Dose 400 MLS/HR; Start at 22:00 Vancomycin HCl (Vancomycin Oral Syringe) 250 mg Q6 PO Last administered on 17:15; Admin Dose 250 MG; Start 09/26/16 at 18:00; Status Future Hold Lactobacillus Acidoph/Bulgaricus (Floranex) 1 tab TID PO Last administered on 13:22; Admin Dose 1 TAB; Start 09/26/16 at 21:00; Status Future Hold Atorvastatin Calcium (Lipitor) 20 mg QHS GTB Last administered on 10/05/16 21: 42; Admin Dose 20 MG; Start 09/28/16 at 21:00; Status Future Hold Finasteride (Proscar) 5 mg DAILY GTB Last administered on 10/06/16 09:12; Admin Dose 5 MG; Start 09/29/16 at 09:00; Status Future Hold Multivitamins Therapeutic (Theragran) 1 tab DAILY GTB Last administered on 09:12; Admin Dose 1 TAB; Start 09/29/16 at 09:00; Status Future Hold Zinc Sulfate (Zinc Sulfate) 220 mg DAILY NGT Last administered on 10/06/16 09: 13; Admin Dose 220 MG; Start 09/29/16 at 09:00; Status Future Hold Ondansetron HCl (Zofran Inj) 4 mg Q6H PRN IV NAUSEA AND/OR VOMITING Last administered on 10/13/16 16:10; Admin Dose 4 MG; Start 09/29/16 at 07:30 Acetaminophen 650 mg 650 mg Q6H PRN GTB PAIN AND OR ELEVATED TEMP Last administered on 10/19/16 04:32; Admin Dose 650 MG; Start 10/02/16 at 08:00 Metronidazole (Flagyl 500 Mg (Pmx)) 100 ml @ 100 mls/hr Q8 IVPB Last administered on 10/19/16 05:28; Admin Dose 100 MLS/HR; Start 10/02/16 at 14:00 Midodrine 10 mg 10 mg TID@,,17 PO Last administered on 10/06/16 17:15; Admin Dose 10 MG; Start 10/06/16 at 01:00; Status Future Hold Linezolid (Zyvox 600mg/D5W (Pmx)) 300 ml @ 300 mls/hr Q12 IVPB Last administered on 10/18/16 20:52; Admin Dose 300 MLS/HR; Start 10/06/16 at 21:00 Levothyroxine Sodium (Synthroid Iv) 12.5 mcg DAILY@06 IV Last administered on 05:28; Admin Dose 12.5 MCG; Start 10/07/16 at 06:00 Metoclopramide HCl (Reglan) 5 mg Q8 IV Last administered on 10/19/16 05:28; Admin Dose 5 MG; Start 10/06/16 at 22:00 Voriconazole 200 mg 200 mg BID PO Last administered on 10/19/16 08:05; Admin Dose 200 MG; Start 10/08/16 at 21:00 Colistimethate Sodium/Sodium Chloride (Coly-Mycin/NS) 100 ml @ 200 mls/hr Q12 IVPB Last administered on 10/19/16 08:05; Admin Dose 200 MLS/HR; Start at 13:30 HUGO DIAZ MD Oct 19, 2016 08:37
[2016-10-19] MEDS: LINEZOLID 600 MG/D5W (PMX) 300 ML IVPB SCH ×2 (09:01→21:34)
[2016-10-19 09:39] LABS: ADD SCAN DIFF NO
[2016-10-19 09:42] LABS: ABNORMAL IP MESSAGE 1; BASOPHILS % 0.2 % (0.0-2.0); EOSINOPHILS # 0.2 10^3/ul (0.0-0.5); HEMATOCRIT 25.9 % (42.0-52.0); HEMOGLOBIN 7.6 g/dl (14.0-18.0); LYMPHOCYTES # 2.2 10^3/ul (0.8-2.9); LYMPHOCYTES % 21.6 % (15.0-51.0); MEAN CORPUSCULAR HEMOGLOBIN 25.5 pg (29.0-33.0); MEAN CORPUSCULAR HGB CONC 29.3 g/dl (32.0-37.0); MEAN CORPUSCULAR VOLUME 86.9 fl (82.0-101.0); MEAN PLATELET VOLUME 12.5 fl (7.4-10.4); MONOCYTE # 1.5 10^3/ul (0.3-0.9); MONOCYTES % 15.4 % (0.0-11.0); NEUTROPHILS % 60.4 % (39.0-77.0); PLATELET COUNT 188 10^3/UL (140-415); RED BLOOD COUNT 2.98 10^6/ul (4.70-6.10); RED CELL DISTRIBUTION WIDTH 18.6 % (11.5-14.5)
[2016-10-19 09:54] LABS: CALCIUM 7.2 mg/dl (8.4-10.2); CREATININE 0.55 mg/dl (0.61-1.24); POTASSIUM 4.2 mmol/L (3.5-5.1)
[2016-10-19] MEDS: COLLAGENASE 30 GM TUBE TOP SCH (10:18)
[2016-10-19] MEDS: SODIUM HYPOCHLORITE 0.125% 473 ML BTL IRR SCH ×2 (10:18→21:12)
--- NOTE | 2016-10-19 10:37 | CONS ---
Date/Time of Note Date/Time of Note DATE: 10/19/16 TIME: 10:37 Assessment/Plan Assessment/Plan Chief Complaint/Hosp Course ANEMIA - NEAR- MICROCYTIC WITH INCREASED RDW DROP H/H DURING HOSPITALIZATION + ACD TRANSFUSE PRBC TO KEEP HB MORE THAN 8 TRANSFUSE NEEDED GI F-UP Stool OB, negative Monitor H&H, transfuse 2 units for hemoglobin less than 8 LEUKOCYTOSIS- REACTIVE CONT ATB FOR SEPSIS THROMBOCYTOSIS REACTIVE SHOULD IMPROVE WITH RESOLUTION OF SEPSIS Severe sepsis with septic shock 2/2 Decub ulcers and/or UTI and/or PNA: stable, off pressor support Severe hypernatremic dehydration Acute renal failure 2/2 ATN from dehydration UTI Multifocal pneumonia Encephalopathy ?acute versus acute on chronic (baseline unknown) Hypokalemia Problems: Consultation Date/Type/Reason Admit Date/Time Sep 24, 2016 at 03:19 Initial Consult Date 09/24/16 [facility] Referring Provider: FELIX BLAKE DO 24 HR Interval Summary Free Text/Dictation ALL NOTED Exam/Review of Systems Vital Signs Vitals Vital Signs Date Time Temp Pulse Resp B/P Pulse Ox O2 Delivery O2 Flow Rate FiO2 10/19/16 09:40 114 22 96 30 10/19/16 07:43 100.4 87/50 10/15/16 19:00 Mechanical Ventilator Intake and Output 10/18/16 10/18/16 10/19/16 14:59 22:59 06:59 Intake Total 1300 ml 1300 ml 900 ml Output Total 400 ml 1000 ml 550 ml Balance 900 ml 300 ml 350 ml Exam PHYSICAL EXAMINATION: GENERAL: This is a chronically ill-appearing, elderly man who is lying comfortably in bed. HEENT: Head atraumatic, normocephalic. Sclerae anicteric. Buccal mucosa dry. NECK: Supple. Tracheostomy present. CHEST: Rise symmetrical. Breath sounds diminished to bases. HEART: S1, S2. ABDOMEN: Distended, soft. Bowel sounds hypoactive. EXTREMITIES: Bilateral trace edema. Results Result Diagram: 10/19/16 0900 10/19/16 0900 Results 24 hrs Laboratory Tests Test 10/19/16 09:00 White Blood Count 10.0 Red Blood Count 2.98 L Hemoglobin 7.6 L Hematocrit 25.9 L Mean Corpuscular Volume 86.9 Mean Corpuscular Hemoglobin 25.5 L Mean Corpuscular Hemoglobin Concent 29.3 L Red Cell Distribution Width 18.6 H Platelet Count 188 Mean Platelet Volume 12.5 H Neutrophils % 60.4 Lymphocytes % 21.6 Monocytes % 15.4 H Eosinophils % 2.0 Basophils % 0.2 Nucleated Red Blood Cells % 0.0 Neutrophils # 6.0 Lymphocytes # 2.2 Monocytes # 1.5 H Eosinophils # 0.2 Basophils # 0.0 Nucleated Red Blood Cells # 0.0 Sodium Level 135 Potassium Level 4.2 Chloride Level 111 H Carbon Dioxide Level 22 Anion Gap 6 L Blood Urea Nitrogen 13 Creatinine 0.55 L Glucose Level 94 Calcium Level 7.2 L Medications Medications Current Medications Acetaminophen (Tylenol Supp) 650 mg Q4H PRN [place] PAIN LEVEL 1-3 OR FEVER; Start 09/24/16 at 03:00 Eye Lubricant (Artificial Tears Oph) 1 drop TID BOTH EYES Last administered on 10/19/16 08:09; Admin Dose 1 DROP; Start 09/24/16 at 09:00 Sodium Hypochlorite (Dakin'S (1/4 Strength)) 1 applic BID IRR Last administered on 10/19/16 10:18; Admin Dose 1 APPLIC; Start 09/24/16 at 21:00 Pantoprazole (Protonix Iv) 40 mg BID@06,18 IV Last administered on 10/19/16 05 :28; Admin Dose 40 MG; Start 09/24/16 at 18:00 Collagenase (Santyl) 1 applic DAILY TOP Last administered on 10/19/16 10:18; Admin Dose 1 APPLIC; Start 09/24/16 at 20:30 Miscellaneous Information 1 ea NOTE XX ; Start 09/24/16 at 21:00 Glucose (Glutose) 15 gm Q15M PRN PO DECREASED GLUCOSE; Start 09/24/16 at 21:00 Glucose (Glutose) 22.5 gm Q15M PRN PO DECREASED GLUCOSE; Start 09/24/16 at 21: 00 Dextrose (D50w Syringe) 25 ml Q15M PRN IV DECREASED GLUCOSE; Start 09/24/16 at 21:00 Dextrose (D50w Syringe) 50 ml Q15M PRN IV DECREASED GLUCOSE; Start 09/24/16 at 21:00 Glucagon (Glucagen) 1 mg Q15M PRN IM DECREASED GLUCOSE; Start 09/24/16 at 21:00 Glucose 15 gm 15 gm Q15M PRN BUCCAL DECREASED GLUCOSE; Start 09/24/16 at 21:00 Acetaminophen (Ofirmev 1000mg/ 100ml Iv) 100 ml @ 400 mls/hr Q6H PRN IVPB FEVER Last administered on 10/07/16 17:14; Admin Dose 400 MLS/HR; Start at 22:00 Vancomycin HCl (Vancomycin Oral Syringe) 250 mg Q6 PO Last administered on 17:15; Admin Dose 250 MG; Start 09/26/16 at 18:00; Status Future Hold Lactobacillus Acidoph/Bulgaricus (Floranex) 1 tab TID PO Last administered on 13:22; Admin Dose 1 TAB; Start 09/26/16 at 21:00; Status Future Hold Atorvastatin Calcium (Lipitor) 20 mg QHS GTB Last administered on 10/05/16 21: 42; Admin Dose 20 MG; Start 09/28/16 at 21:00; Status Future Hold Finasteride (Proscar) 5 mg DAILY GTB Last administered on 10/06/16 09:12; Admin Dose 5 MG; Start 09/29/16 at 09:00; Status Future Hold Multivitamins Therapeutic (Theragran) 1 tab DAILY GTB Last administered on 09:12; Admin Dose 1 TAB; Start 09/29/16 at 09:00; Status Future Hold Zinc Sulfate (Zinc Sulfate) 220 mg DAILY NGT Last administered on 10/06/16 09: 13; Admin Dose 220 MG; Start 09/29/16 at 09:00; Status Future Hold Ondansetron HCl (Zofran Inj) 4 mg Q6H PRN IV NAUSEA AND/OR VOMITING Last administered on 10/13/16 16:10; Admin Dose 4 MG; Start 09/29/16 at 07:30 Acetaminophen 650 mg 650 mg Q6H PRN GTB PAIN AND OR ELEVATED TEMP Last administered on 10/19/16 04:32; Admin Dose 650 MG; Start 10/02/16 at 08:00 Metronidazole (Flagyl 500 Mg (Pmx)) 100 ml @ 100 mls/hr Q8 IVPB Last administered on 10/19/16 05:28; Admin Dose 100 MLS/HR; Start 10/02/16 at 14:00 Midodrine 10 mg 10 mg TID@,, PO Last administered on 10/06/16 17:15; Admin Dose 10 MG; Start 10/06/16 at 01:00; Status Future Hold Linezolid (Zyvox 600mg/D5W (Pmx)) 300 ml @ 300 mls/hr Q12 IVPB Last administered on 10/19/16 09:01; Admin Dose 300 MLS/HR; Start 10/06/16 at 21:00 Levothyroxine Sodium (Synthroid Iv) 12.5 mcg DAILY@06 IV Last administered on 05:28; Admin Dose 12.5 MCG; Start 10/07/16 at 06:00 Metoclopramide HCl (Reglan) 5 mg Q8 IV Last administered on 10/19/16 05:28; Admin Dose 5 MG; Start 10/06/16 at 22:00 Voriconazole 200 mg 200 mg BID PO Last administered on 10/19/16 08:05; Admin Dose 200 MG; Start 10/08/16 at 21:00 Colistimethate Sodium/Sodium Chloride (Coly-Mycin/NS) 100 ml @ 200 mls/hr Q12 IVPB Last administered on 10/19/16 08:05; Admin Dose 200 MLS/HR; Start at 13:30 SCOTT RODRIGUES MD Oct 19, 2016 10:37
--- NOTE | 2016-10-19 10:44 | PN ---
DATE: 10/19/2016 SUBJECTIVE: The patient is not capable of expressing any complaints, but he does have extremity cont ractures and penoscrotal edema. OBJECTIVE VITAL SIGNS: His temperature is 100.4, blood pressure 87/50, pulse is 114, respirations 22. As I came into the room, the staff was cleaning him and he was on his side and I was able to evaluat e his penoscrotal edema much better than the other days. The scrotal edema has decreased, is still present, but it has decreased pretty much and the patient does still have the rectal tube with diarr hea. The Cee catheter is draining clear urine. LABORATORY DATA: His CBC shows a white count of 10.0, hemoglobin 7.6, hematocrit 25.9, platelet coun t 188,000. BUN is 13, creatinine 0.55. Sodium 135, potassium 4.2, chloride 111, CO2 22. The urine culture at the time of admission on 10/07/2016 was showing Teresita glabrata. PLAN: Keep the scrotum elevated and keep the Cee catheter in. I ordered a urine culture and it is still in the process. Dictated By: MISHEL MAO MD BB/ELIZABETH Conf#: [id number] DID#: [id number]
[2016-10-19] MEDS ORDERED: SOD CHLORIDE 0.9% 250 ML IV* ONE (13:14)
--- NOTE | 2016-10-19 16:00 | PN ---
Date/Time of Note Date/Time of Note DATE: 10/19/16 TIME: 15:56 Assessment/Plan VTE Prophylaxis VTE Prophylaxis Intervention: contraindicated (noted with anemia) Lines/Catheters IV Catheter Type (from Nrs): Central Line Central line still needed: Yes Urinary Cath still in place: Yes Reason Cath still needed: other (indicate) (monitor I&O) Assessment/Plan Chief Complaint/Hosp Course assessment and plan 1. Sepsis secondary to infected sacral decubitus ulcers with multiple organisms including Klebsiella pneumonia, Acinetobacter baumannii, VRE, staph aureus. ID following. Continue antibiotics. remains off pressors at this time 2. Sacral decubitus ulcer with infection. Continue with wound care. Continue with analgesics as needed. on abx 3. Acute renal insufficiency. Stable at present. Avoid nephrotoxic medications.continue with nephrology recs 4. Chronic respiratory failure. 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 Continue bronchodilators and pulmonary hygiene. stable 5. 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 On antibiotics. Continuing wound care. surgeon following. stable 6. Encephalopathy (chronic). Continue to turn every 2 hours as needed. Continue with aspiration precautions 7. Hypothyroidism. Continue on Synthroid 8. Dysphagia. Continue aspiration precautions. We'll graduate PEG tube feedings as tolerated 9. Anemia of chronic disease. worse today. plan to transfuse prbc 10. Leukocytosis with thrombocytosis. Oncologist/computer lab para professional following. Continued recommendations 11. Ileus. resolved. monitor Disposition and plan: Palliative care physician following. Patient is DNR. Discussed with social studies department chair. Plan for family meeting. Prognosis remains poor. transfuse prbc for anemia Discussed plan of care with Dr. Mullins Problems: Subjective 24 Hr Interval Summary Free Text/Dictation comfortable at present. no s/s of distress Exam/Review of Systems Vital Signs Vitals Vital Signs Date Time Temp Pulse Resp B/P Pulse Ox O2 Delivery O2 Flow Rate FiO2 10/19/16 15:25 100.2 122 28 88/50 94 10/19/16 13:39 30 10/15/16 19:00 Mechanical Ventilator Intake and Output 10/18/16 10/18/16 10/19/16 15:00 23:00 07:00 Intake Total 1300 ml 1300 ml 900 ml Output Total 400 ml 1000 ml 550 ml Balance 900 ml 300 ml 350 ml Exam General: On mechanical ventilation. No apparent distress. Comfortable at present still no purposeful response Eyes: Equal round. Able to track Neck: Tracheostomy in place. Cardiac: heart murmur, regular rate Pulmonary: On mechanical ventilation. Diminished at bases still, unchanged GI: PEG tube in place. Extremities: Edema noted bilateral lower extremities as well as upper extremities still, unchanged Skin: decubitus ulcers Neurologic: Alert. No purposeful response Results Result Diagram: 10/19/16 0900 10/19/16 0900 Results 24 hrs Laboratory Tests Test 10/19/16 09:00 White Blood Count 10.0 Red Blood Count 2.98 L Hemoglobin 7.6 L Hematocrit 25.9 L Mean Corpuscular Volume 86.9 Mean Corpuscular Hemoglobin 25.5 L Mean Corpuscular Hemoglobin Concent 29.3 L Red Cell Distribution Width 18.6 H Platelet Count 188 Mean Platelet Volume 12.5 H Neutrophils % 60.4 Lymphocytes % 21.6 Monocytes % 15.4 H Eosinophils % 2.0 Basophils % 0.2 Nucleated Red Blood Cells % 0.0 Neutrophils # 6.0 Lymphocytes # 2.2 Monocytes # 1.5 H Eosinophils # 0.2 Basophils # 0.0 Nucleated Red Blood Cells # 0.0 Sodium Level 135 Potassium Level 4.2 Chloride Level 111 H Carbon Dioxide Level 22 Anion Gap 6 L Blood Urea Nitrogen 13 Creatinine 0.55 L Glucose Level 94 Calcium Level 7.2 L Medications Medications Current Medications Acetaminophen (Tylenol Supp) 650 mg Q4H PRN [place] PAIN LEVEL 1-3 OR FEVER; Start 09/24/16 at 03:00 Eye Lubricant (Artificial Tears Oph) 1 drop TID BOTH EYES Last administered on 10/19/16 13:13; Admin Dose 1 DROP; Start 09/24/16 at 09:00 Sodium Hypochlorite (Dakin'S (1/4 Strength)) 1 applic BID IRR Last administered on 10/19/16 10:18; Admin Dose 1 APPLIC; Start 09/24/16 at 21:00 Pantoprazole (Protonix Iv) 40 mg BID@06,18 IV Last administered on 10/19/16 05 :28; Admin Dose 40 MG; Start 09/24/16 at 18:00 Collagenase (Santyl) 1 applic DAILY TOP Last administered on 10/19/16 10:18; Admin Dose 1 APPLIC; Start 09/24/16 at 20:30 Miscellaneous Information 1 ea NOTE XX ; Start 09/24/16 at 21:00 Glucose (Glutose) 15 gm Q15M PRN PO DECREASED GLUCOSE; Start 09/24/16 at 21:00 Glucose (Glutose) 22.5 gm Q15M PRN PO DECREASED GLUCOSE; Start 09/24/16 at 21: 00 Dextrose (D50w Syringe) 25 ml Q15M PRN IV DECREASED GLUCOSE; Start 09/24/16 at 21:00 Dextrose (D50w Syringe) 50 ml Q15M PRN IV DECREASED GLUCOSE; Start 09/24/16 at 21:00 Glucagon (Glucagen) 1 mg Q15M PRN IM DECREASED GLUCOSE; Start 09/24/16 at 21:00 Glucose 15 gm 15 gm Q15M PRN BUCCAL DECREASED GLUCOSE; Start 09/24/16 at 21:00 Acetaminophen (Ofirmev 1000mg/ 100ml Iv) 100 ml @ 400 mls/hr Q6H PRN IVPB FEVER Last administered on 10/07/16 17:14; Admin Dose 400 MLS/HR; Start at 22:00 Vancomycin HCl (Vancomycin Oral Syringe) 250 mg Q6 PO Last administered on 17:15; Admin Dose 250 MG; Start 09/26/16 at 18:00; Status Future Hold Lactobacillus Acidoph/Bulgaricus (Floranex) 1 tab TID PO Last administered on 13:22; Admin Dose 1 TAB; Start 09/26/16 at 21:00; Status Future Hold Atorvastatin Calcium (Lipitor) 20 mg QHS GTB Last administered on 10/05/16 21: 42; Admin Dose 20 MG; Start 09/28/16 at 21:00; Status Future Hold Finasteride (Proscar) 5 mg DAILY GTB Last administered on 10/06/16 09:12; Admin Dose 5 MG; Start 09/29/16 at 09:00; Status Future Hold Multivitamins Therapeutic (Theragran) 1 tab DAILY GTB Last administered on 09:12; Admin Dose 1 TAB; Start 09/29/16 at 09:00; Status Future Hold Zinc Sulfate (Zinc Sulfate) 220 mg DAILY NGT Last administered on 10/06/16 09: 13; Admin Dose 220 MG; Start 09/29/16 at 09:00; Status Future Hold Ondansetron HCl (Zofran Inj) 4 mg Q6H PRN IV NAUSEA AND/OR VOMITING Last administered on 10/13/16 16:10; Admin Dose 4 MG; Start 09/29/16 at 07:30 Acetaminophen 650 mg 650 mg Q6H PRN GTB PAIN AND OR ELEVATED TEMP Last administered on 10/19/16 04:32; Admin Dose 650 MG; Start 10/02/16 at 08:00 Metronidazole (Flagyl 500 Mg (Pmx)) 100 ml @ 100 mls/hr Q8 IVPB Last administered on 10/19/16 13:13; Admin Dose 100 MLS/HR; Start 10/02/16 at 14:00 Midodrine 10 mg 10 mg TID@,, PO Last administered on 10/06/16 17:15; Admin Dose 10 MG; Start 10/06/16 at 01:00; Status Future Hold Linezolid (Zyvox 600mg/D5W (Pmx)) 300 ml @ 300 mls/hr Q12 IVPB Last administered on 10/19/16 09:01; Admin Dose 300 MLS/HR; Start 10/06/16 at 21:00 Levothyroxine Sodium (Synthroid Iv) 12.5 mcg DAILY@06 IV Last administered on 05:28; Admin Dose 12.5 MCG; Start 10/07/16 at 06:00 Metoclopramide HCl (Reglan) 5 mg Q8 IV Last administered on 10/19/16 13:13; Admin Dose 5 MG; Start 10/06/16 at 22:00 Voriconazole 200 mg 200 mg BID PO Last administered on 10/19/16 08:05; Admin Dose 200 MG; Start 10/08/16 at 21:00 Colistimethate Sodium/Sodium Chloride (Coly-Mycin/NS) 100 ml @ 200 mls/hr Q12 IVPB Last administered on 10/19/16 08:05; Admin Dose 200 MLS/HR; Start at 13:30 TAMMIE RIBERA Oct 19, 2016 16:00
--- NOTE | 2016-10-19 16:51 | PN ---
Date/Time of Note Date/Time of Note DATE: 10/19/16 TIME: 16:49 Assessment/Plan Lines/Catheters IV Catheter Type (from [facility]): Central Line Cee in Place (from [facility]): Yes Assessment/Plan Chief Complaint/Hosp Course 1. Shock, septic (uti, pna, wound). -Judicious fluid management -Supportive measures -Antibiotics 2. Multiple decubitus ulcerations with necrotic tissue and deep tissue injury -Offload -Local care -Vitamin C -Eventual nutritional optimization -Debridement when medically cleared 3. Contracted state with functional quadriplegia -Offloading -Nutritional optimization when possible 4. Anemia -Monitor 5. Ventilator dependent respiratory failure -Ventilator management and pulmonary toilet 6. Renal insufficiency -Judicious fluid management -Avoid nephrotoxic agents 7. Coronary artery disease and history of non-ST elevation IA -Cardiac optimization Thank you Problems: Subjective 24 Hr Interval Summary Tachycardia. Fever. Leukocytosis improving. No chills. No cough. No seizure. No rash. No blood rectum. No bloating. No seizures. No pyuria. Exam/Review of Systems Vital Signs Vitals Vital Signs Date Time Temp Pulse Resp B/P Pulse Ox O2 Delivery O2 Flow Rate FiO2 10/19/16 16:19 120 10/19/16 15:25 100.2 28 88/50 94 10/19/16 13:39 30 10/15/16 19:00 Mechanical Ventilator Intake and Output 10/18/16 10/18/16 10/19/16 15:00 23:00 07:00 Intake Total 1300 ml 1300 ml 900 ml Output Total 400 ml 1000 ml 550 ml Balance 900 ml 300 ml 350 ml Exam Free Text/Dictation Constitutional: No alert, No oriented Psych: No nl mood/affect Head: atraumatic, normocephalic Eyes: nl conjunctiva, No EOMI, No icteric ENMT: mucosa pink and moist, nl external ears & nose Neck: jvd, other (Trach in place), No non-tender, No supple Respiratory: No congested cough, No labored breathing Cardiovascular: No regular rate and rhythm Gastrointestinal: non-tender, other (PEG in place), soft, No rebound or guarding Musculoskeletal: No joint tenderness, No nl extremities to inspection, No nl gait and stance Extremities: No calf tenderness, No cyanosis Neurological: No nl mental status, No nl speech, No nl strength Skin: rash or lesions (Multiple decubitus ulcerations with debris, necrotic tissue, deep tissue injury), No diaphoresis, No nl turgor Lymph: nontender Results Result Diagram: 10/19/1689910/19/16899 EVA GUARDADO MD Oct 19, 2016 16:51
--- NOTE | 2016-10-19 20:42 | CONS ---
Date/Time of Note Date/Time of Note DATE: 10/19/16 TIME: 20:42 Assessment/Plan Assessment/Plan Chief Complaint/Hosp Course SUBJECTIVE: No acute changes, non-communicative, tachycardic, low grade temps. INDWELLINGS: Trach, PEG, Cee, LSC TLC. ANTIMICROBIALS: 1. Colistin. 2. Oral voriconazole. 3. IV Zyvox. 4. IV Flagyl. PHYSICAL EXAMINATION: GENERAL: This is a chronically ill-appearing, elderly man who is lying comfortably in bed. HEENT: Head atraumatic, normocephalic. Sclerae anicteric. Buccal mucosa dry. NECK: Supple. Tracheostomy present. CHEST: Rise symmetrical. Breath sounds diminished to bases. HEART: S1, S2. ABDOMEN: Distended, soft. Bowel sounds hypoactive. EXTREMITIES: Bilateral trace edema. ASSESSMENT: 1. Sepsis, status post septic shock. 2. 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 3. Urinary tract infection. 4. Status post pneumonia and bacteremia. 5. History of severe pseudomembranous colitis. 6. Diarrhea. 7. Ileus. PLAN: The patient remains unchanged, on appropriate antimicrobials. He is being followed by multiple consultants. Continue local wound care/scrotal elevation, majano cx prn ?dcTLC DW staff Problems: Consultation Date/Type/Reason Admit Date/Time Sep 24, 2016 at 03:19 Initial Consult Date 09/24/16 Type of Consultation: ID Referring Provider: FELIX BLAKE DO Exam/Review of Systems Vital Signs Vitals Vital Signs Date Time Temp Pulse Resp B/P Pulse Ox O2 Delivery O2 Flow Rate FiO2 10/19/16 20:17 101.0 120 20 85/56 99 10/19/16 19:34 30 10/15/16 19:00 Mechanical Ventilator Intake and Output 10/18/16 10/18/16 10/19/16 15:00 23:00 07:00 Intake Total 1300 ml 1300 ml 900 ml Output Total 400 ml 1000 ml 550 ml Balance 900 ml 300 ml 350 ml Results Result Diagram: 10/19/16 0900 10/19/16 0900 Results 24 hrs Laboratory Tests Test 10/19/16 09:00 White Blood Count 10.0 Red Blood Count 2.98 L Hemoglobin 7.6 L Hematocrit 25.9 L Mean Corpuscular Volume 86.9 Mean Corpuscular Hemoglobin 25.5 L Mean Corpuscular Hemoglobin Concent 29.3 L Red Cell Distribution Width 18.6 H Platelet Count 188 Mean Platelet Volume 12.5 H Neutrophils % 60.4 Lymphocytes % 21.6 Monocytes % 15.4 H Eosinophils % 2.0 Basophils % 0.2 Nucleated Red Blood Cells % 0.0 Neutrophils # 6.0 Lymphocytes # 2.2 Monocytes # 1.5 H Eosinophils # 0.2 Basophils # 0.0 Nucleated Red Blood Cells # 0.0 Sodium Level 135 Potassium Level 4.2 Chloride Level 111 H Carbon Dioxide Level 22 Anion Gap 6 L Blood Urea Nitrogen 13 Creatinine 0.55 L Glucose Level 94 Calcium Level 7.2 L Medications Medications Current Medications Acetaminophen (Tylenol Supp) 650 mg Q4H PRN [place] PAIN LEVEL 1-3 OR FEVER; Start 09/24/16 at 03:00 Eye Lubricant (Artificial Tears Oph) 1 drop TID BOTH EYES Last administered on 10/19/16 13:13; Admin Dose 1 DROP; Start 09/24/16 at 09:00 Sodium Hypochlorite (Dakin'S (1/4 Strength)) 1 applic BID IRR Last administered on 10/19/16 10:18; Admin Dose 1 APPLIC; Start 09/24/16 at 21:00 Pantoprazole (Protonix Iv) 40 mg BID@06,18 IV Last administered on 10/19/16 17 :21; Admin Dose 40 MG; Start 09/24/16 at 18:00 Collagenase (Santyl) 1 applic DAILY TOP Last administered on 10/19/16 10:18; Admin Dose 1 APPLIC; Start 09/24/16 at 20:30 Miscellaneous Information 1 ea NOTE XX ; Start 09/24/16 at 21:00 Glucose (Glutose) 15 gm Q15M PRN PO DECREASED GLUCOSE; Start 09/24/16 at 21:00 Glucose (Glutose) 22.5 gm Q15M PRN PO DECREASED GLUCOSE; Start 09/24/16 at 21: 00 Dextrose (D50w Syringe) 25 ml Q15M PRN IV DECREASED GLUCOSE; Start 09/24/16 at 21:00 Dextrose (D50w Syringe) 50 ml Q15M PRN IV DECREASED GLUCOSE; Start 09/24/16 at 21:00 Glucagon (Glucagen) 1 mg Q15M PRN IM DECREASED GLUCOSE; Start 09/24/16 at 21:00 Glucose 15 gm 15 gm Q15M PRN BUCCAL DECREASED GLUCOSE; Start 09/24/16 at 21:00 Acetaminophen (Ofirmev 1000mg/ 100ml Iv) 100 ml @ 400 mls/hr Q6H PRN IVPB FEVER Last administered on 10/07/16 17:14; Admin Dose 400 MLS/HR; Start at 22:00 Vancomycin HCl (Vancomycin Oral Syringe) 250 mg Q6 PO Last administered on 17:15; Admin Dose 250 MG; Start 09/26/16 at 18:00; Status Future Hold Lactobacillus Acidoph/Bulgaricus (Floranex) 1 tab TID PO Last administered on 13:22; Admin Dose 1 TAB; Start 09/26/16 at 21:00; Status Future Hold Atorvastatin Calcium (Lipitor) 20 mg QHS GTB Last administered on 10/05/16 21: 42; Admin Dose 20 MG; Start 09/28/16 at 21:00; Status Future Hold Finasteride (Proscar) 5 mg DAILY GTB Last administered on 10/06/16 09:12; Admin Dose 5 MG; Start 09/29/16 at 09:00; Status Future Hold Multivitamins Therapeutic (Theragran) 1 tab DAILY GTB Last administered on 09:12; Admin Dose 1 TAB; Start 09/29/16 at 09:00; Status Future Hold Zinc Sulfate (Zinc Sulfate) 220 mg DAILY NGT Last administered on 10/06/16 09: 13; Admin Dose 220 MG; Start 09/29/16 at 09:00; Status Future Hold Ondansetron HCl (Zofran Inj) 4 mg Q6H PRN IV NAUSEA AND/OR VOMITING Last administered on 10/13/16 16:10; Admin Dose 4 MG; Start 09/29/16 at 07:30 Acetaminophen 650 mg 650 mg Q6H PRN GTB PAIN AND OR ELEVATED TEMP Last administered on 10/19/16 17:55; Admin Dose 650 MG; Start 10/02/16 at 08:00 Metronidazole (Flagyl 500 Mg (Pmx)) 100 ml @ 100 mls/hr Q8 IVPB Last administered on 10/19/16 13:13; Admin Dose 100 MLS/HR; Start 10/02/16 at 14:00 Midodrine 10 mg 10 mg TID@,,17 PO Last administered on 10/06/16 17:15; Admin Dose 10 MG; Start 10/06/16 at 01:00; Status Future Hold Linezolid (Zyvox 600mg/D5W (Pmx)) 300 ml @ 300 mls/hr Q12 IVPB Last administered on 10/19/16 09:01; Admin Dose 300 MLS/HR; Start 10/06/16 at 21:00 Levothyroxine Sodium (Synthroid Iv) 12.5 mcg DAILY@06 IV Last administered on 05:28; Admin Dose 12.5 MCG; Start 10/07/16 at 06:00 Metoclopramide HCl (Reglan) 5 mg Q8 IV Last administered on 10/19/16 13:13; Admin Dose 5 MG; Start 10/06/16 at 22:00 Voriconazole 200 mg 200 mg BID PO Last administered on 10/19/16 08:05; Admin Dose 200 MG; Start 10/08/16 at 21:00 Colistimethate Sodium/Sodium Chloride (Coly-Mycin/NS) 100 ml @ 200 mls/hr Q12 IVPB Last administered on 10/19/16 08:05; Admin Dose 200 MLS/HR; Start at 13:30 CHRISTOPHER MCDONOUGH NP Oct 19, 2016 20:42
--- NOTE | 2016-10-19 21:46 | CONS ---
Date/Time of Note Date/Time of Note DATE: 10/19/16 TIME: 21:45 Assessment/Plan Assessment/Plan Additional Assessment/Plan 1. Acute kidney injury on chronic kidney disease. due to ATN from septic shock 2. septic shock on levophed 3. severe metabolic acidosis on bicarbonate drip 5. History of chronic respiratory failure, status post tracheostomy, on ventilator. 6. History of G-tube. 7. Poor mental status due to the previous cerebrovascular accident. 8. History of dementia. 9. History of hypertension. 10. Hypocalcemia with Ca 6.9- likely pseudohypocalcemia, because corrected Ca with Serum albumin of 1.6 is 8.8-no symptoms of hypocalcemia PLAN: on Tube feeding, Hb 7.6, Bp stable, Electrolytes and Cr stable Corrected Ca 8.8, no new orders for hypocalcemia On IV Coly-mycin and IV zyvox, need to monitor renal function and K will follow up Consultation Date/Type/Reason Admit Date/Time Sep 24, 2016 at 03:19 Initial Consult Date 09/24/16 Type of Consultation: NEPHROLOGY Referring Provider: FELIX BLAKE DO 24 HR Interval Summary Free Text/Dictation no acute events overnight, HR stable, BP stable Exam/Review of Systems Vital Signs Vitals Vital Signs Date Time Temp Pulse Resp B/P Pulse Ox O2 Delivery O2 Flow Rate FiO2 10/19/16 21:18 116 22 98 30 10/19/16 20:17 101.0 85/56 10/15/16 19:00 Mechanical Ventilator Intake and Output 10/18/16 10/18/16 10/19/16 15:00 23:00 07:00 Intake Total 1300 ml 1300 ml 900 ml Output Total 400 ml 1000 ml 550 ml Balance 900 ml 300 ml 350 ml Results Result Diagram: 10/19/16 0900 10/19/16 0900 Results 24 hrs Laboratory Tests Test 10/19/16 09:00 White Blood Count 10.0 Red Blood Count 2.98 L Hemoglobin 7.6 L Hematocrit 25.9 L Mean Corpuscular Volume 86.9 Mean Corpuscular Hemoglobin 25.5 L Mean Corpuscular Hemoglobin Concent 29.3 L Red Cell Distribution Width 18.6 H Platelet Count 188 Mean Platelet Volume 12.5 H Neutrophils % 60.4 Lymphocytes % 21.6 Monocytes % 15.4 H Eosinophils % 2.0 Basophils % 0.2 Nucleated Red Blood Cells % 0.0 Neutrophils # 6.0 Lymphocytes # 2.2 Monocytes # 1.5 H Eosinophils # 0.2 Basophils # 0.0 Nucleated Red Blood Cells # 0.0 Sodium Level 135 Potassium Level 4.2 Chloride Level 111 H Carbon Dioxide Level 22 Anion Gap 6 L Blood Urea Nitrogen 13 Creatinine 0.55 L Glucose Level 94 Calcium Level 7.2 L Medications Medications Current Medications Acetaminophen (Tylenol Supp) 650 mg Q4H PRN [place] PAIN LEVEL 1-3 OR FEVER; Start 09/24/16 at 03:00 Eye Lubricant (Artificial Tears Oph) 1 drop TID BOTH EYES Last administered on 10/19/16 21:12; Admin Dose 1 DROP; Start 09/24/16 at 09:00 Sodium Hypochlorite (Dakin'S (1/4 Strength)) 1 applic BID IRR Last administered on 10/19/16 21:12; Admin Dose 1 APPLIC; Start 09/24/16 at 21:00 Pantoprazole (Protonix Iv) 40 mg BID@06,18 IV Last administered on 10/19/16 17 :21; Admin Dose 40 MG; Start 09/24/16 at 18:00 Collagenase (Santyl) 1 applic DAILY TOP Last administered on 10/19/16 10:18; Admin Dose 1 APPLIC; Start 09/24/16 at 20:30 Miscellaneous Information 1 ea NOTE XX ; Start 09/24/16 at 21:00 Glucose (Glutose) 15 gm Q15M PRN PO DECREASED GLUCOSE; Start 09/24/16 at 21:00 Glucose (Glutose) 22.5 gm Q15M PRN PO DECREASED GLUCOSE; Start 09/24/16 at 21: 00 Dextrose (D50w Syringe) 25 ml Q15M PRN IV DECREASED GLUCOSE; Start 09/24/16 at 21:00 Dextrose (D50w Syringe) 50 ml Q15M PRN IV DECREASED GLUCOSE; Start 09/24/16 at 21:00 Glucagon (Glucagen) 1 mg Q15M PRN IM DECREASED GLUCOSE; Start 09/24/16 at 21:00 Glucose 15 gm 15 gm Q15M PRN BUCCAL DECREASED GLUCOSE; Start 09/24/16 at 21:00 Acetaminophen (Ofirmev 1000mg/ 100ml Iv) 100 ml @ 400 mls/hr Q6H PRN IVPB FEVER Last administered on 10/07/16 17:14; Admin Dose 400 MLS/HR; Start at 22:00 Vancomycin HCl (Vancomycin Oral Syringe) 250 mg Q6 PO Last administered on 17:15; Admin Dose 250 MG; Start 09/26/16 at 18:00; Status Future Hold Lactobacillus Acidoph/Bulgaricus (Floranex) 1 tab TID PO Last administered on 13:22; Admin Dose 1 TAB; Start 09/26/16 at 21:00; Status Future Hold Atorvastatin Calcium (Lipitor) 20 mg QHS GTB Last administered on 10/05/16 21: 42; Admin Dose 20 MG; Start 09/28/16 at 21:00; Status Future Hold Finasteride (Proscar) 5 mg DAILY GTB Last administered on 10/06/16 09:12; Admin Dose 5 MG; Start 09/29/16 at 09:00; Status Future Hold Multivitamins Therapeutic (Theragran) 1 tab DAILY GTB Last administered on 09:12; Admin Dose 1 TAB; Start 09/29/16 at 09:00; Status Future Hold Zinc Sulfate (Zinc Sulfate) 220 mg DAILY NGT Last administered on 10/06/16 09: 13; Admin Dose 220 MG; Start 09/29/16 at 09:00; Status Future Hold Ondansetron HCl (Zofran Inj) 4 mg Q6H PRN IV NAUSEA AND/OR VOMITING Last administered on 10/13/16 16:10; Admin Dose 4 MG; Start 09/29/16 at 07:30 Acetaminophen 650 mg 650 mg Q6H PRN GTB PAIN AND OR ELEVATED TEMP Last administered on 10/19/16 17:55; Admin Dose 650 MG; Start 10/02/16 at 08:00 Metronidazole (Flagyl 500 Mg (Pmx)) 100 ml @ 100 mls/hr Q8 IVPB Last administered on 10/19/16 13:13; Admin Dose 100 MLS/HR; Start 10/02/16 at 14:00 Midodrine 10 mg 10 mg TID@,,17 PO Last administered on 10/06/16 17:15; Admin Dose 10 MG; Start 10/06/16 at 01:00; Status Future Hold Linezolid (Zyvox 600mg/D5W (Pmx)) 300 ml @ 300 mls/hr Q12 IVPB Last administered on 10/19/16 21:34; Admin Dose 300 MLS/HR; Start 10/06/16 at 21:00 Levothyroxine Sodium (Synthroid Iv) 12.5 mcg DAILY@06 IV Last administered on 05:28; Admin Dose 12.5 MCG; Start 10/07/16 at 06:00 Metoclopramide HCl (Reglan) 5 mg Q8 IV Last administered on 10/19/16 21:34; Admin Dose 5 MG; Start 10/06/16 at 22:00 Voriconazole 200 mg 200 mg BID PO Last administered on 10/19/16 21:34; Admin Dose 200 MG; Start 10/08/16 at 21:00 Colistimethate Sodium/Sodium Chloride (Coly-Mycin/NS) 100 ml @ 200 mls/hr Q12 IVPB Last administered on 10/19/16 21:12; Admin Dose 200 MLS/HR; Start at 13:30 MAGGIE DINERO MD Oct 19, 2016 21:46
[2016-10-20] VITALS (24 sets, daily range): BP systolic 80–137; BP diastolic 41–71; PULSE 118–130; RESP 11–71
[2016-10-20] MEDS: COLLAGENASE 30 GM TUBE TOP SCH ×2 (01:00→09:00)
[2016-10-20] MEDS: ALBUTEROL HFA 8 GM INHALER INH SCH ×4 (01:13→19:11)
[2016-10-20] MEDS: IPRATROPIUM (HFA) 12.9 GM INHALER INH SCH ×4 (01:14→19:11)
[2016-10-20] MEDS: PANTOPRAZOLE 40 MG INJ IV SCH ×2 (05:45→17:45)
[2016-10-20] MEDS: LEVOTHYROXINE 100 MCG VIAL IV SCH (05:46)
[2016-10-20] MEDS: METOCLOPRAMIDE 10 MG INJ IV SCH ×3 (05:46→21:44)
[2016-10-20] MEDS: metroNIDAZOLE 500 MG/NS (PMX) 100 ML IVPB SCH ×3 (05:46→21:44)
[2016-10-20 06:33] LABS: ADD SCAN DIFF NO
[2016-10-20 06:46] LABS: ABNORMAL IP MESSAGE 1; BASOPHILS % 0.3 % (0.0-2.0); EOSINOPHILS # 0.2 10^3/ul (0.0-0.5); EOSINOPHILS % 1.7 % (0.0-7.0); HEMATOCRIT 26.9 % (42.0-52.0); LYMPHOCYTES # 2.3 10^3/ul (0.8-2.9); LYMPHOCYTES % 23.3 % (15.0-51.0); MEAN CORPUSCULAR HEMOGLOBIN 25.6 pg (29.0-33.0); MEAN CORPUSCULAR HGB CONC 29.7 g/dl (32.0-37.0); MEAN CORPUSCULAR VOLUME 86.2 fl (82.0-101.0); MONOCYTE # 1.5 10^3/ul (0.3-0.9); MONOCYTES % 15.4 % (0.0-11.0); NEUTROPHIL # 5.8 10^3/ul (1.6-7.5); NEUTROPHILS % 58.8 % (39.0-77.0); PLATELET COUNT 94 10^3/UL (140-415); RED BLOOD COUNT 3.12 10^6/ul (4.70-6.10); RED CELL DISTRIBUTION WIDTH 18.1 % (11.5-14.5); WHITE BLOOD COUNT 9.8 10^3/ul (4.8-10.8)
[2016-10-20 06:57] LABS: CALCIUM 7.4 mg/dl (8.4-10.2); CREATININE 0.62 mg/dl (0.61-1.24); POTASSIUM 4.3 mmol/L (3.5-5.1)
[2016-10-20] MEDS: ARTIFICIAL TEARS 15 ML OPH BOTH EYES SCH ×3 (08:37→20:55)
[2016-10-20] MEDS: LINEZOLID 600 MG/D5W (PMX) 300 ML IVPB SCH ×2 (08:37→20:55)
[2016-10-20] MEDS: VORICONAZOLE 200 MG TAB PO SCH ×2 (08:37→20:55)
[2016-10-20] MEDS: SODIUM HYPOCHLORITE 0.125% 473 ML BTL IRR SCH ×2 (09:00→20:55)
[2016-10-20] MEDS: COLISTIMETHATE 75 MG in SOD CHLORIDE 0.9% 100 ML IVPB SCH ×2 (09:50→20:54)
--- NOTE | 2016-10-20 10:47 | CONS ---
Date/Time of Note Date/Time of Note DATE: 10/20/16 TIME: 10:45 Assessment/Plan Assessment/Plan Additional Assessment/Plan 1. Acute kidney injury on chronic kidney disease. due to ATN from septic shock 2. septic shock on levophed 3. severe metabolic acidosis on bicarbonate drip 5. History of chronic respiratory failure, status post tracheostomy, on ventilator. 6. History of G-tube. 7. Poor mental status due to the previous cerebrovascular accident. 8. History of dementia. 9. History of hypertension. 10. Hypocalcemia with Ca 6.9- likely pseudohypocalcemia, because corrected Ca with Serum albumin of 1.6 is 8.8-no symptoms of hypocalcemia PLAN: on Tube feeding, Hb 8.0, Bp stable,Cr stable, Na 134 Corrected Ca 8.8, no new orders for hypocalcemia On IV Coly-mycin and IV zyvox, need to monitor renal function and K will follow up Consultation Date/Type/Reason Admit Date/Time Sep 24, 2016 at 03:19 Initial Consult Date 09/24/16 Type of Consultation: NEPHROLOGY Reason for Consultation acute kidney injury, Hypernatremia Referring Provider: FELIX BLAKE DO 24 HR Interval Summary Free Text/Dictation Na 134., Hb 8.0, BP stable Exam/Review of Systems Vital Signs Vitals Vital Signs Date Time Temp Pulse Resp B/P Pulse Ox O2 Delivery O2 Flow Rate FiO2 10/20/16 09:47 118 18 98 30 10/20/16 07:47 100.8 80/41 10/19/16 21:00 Mechanical Ventilator Intake and Output 10/19/16 10/19/16 10/20/16 15:00 23:00 07:00 Intake Total 1200 ml 1000 ml Output Total 600 ml 450 ml Balance 600 ml 550 ml Exam GENERAL: This is a fragile, chronically ill-appearing, elderly man who is in no distress. HEENT: Head atraumatic, normocephalic. Sclerae anicteric. Buccal mucosa dry. NECK: Supple. Tracheostomy present. CHEST: Rise symmetrical. Breath sounds diminished to bases. HEART: S1, S2. ABDOMEN: Soft, distended. Bowel sounds hypoactive. EXTREMITIES: Bilateral trace edema. SKIN: With multiple infected wounds. Results Result Diagram: 10/20/16 0545 10/20/16 0545 Results 24 hrs Laboratory Tests Test 4/16/17 05:45 White Blood Count 9.8 Red Blood Count 3.12 L Hemoglobin 8.0 L Hematocrit 26.9 L Mean Corpuscular Volume 86.2 Mean Corpuscular Hemoglobin 25.6 L Mean Corpuscular Hemoglobin Concent 29.7 L Red Cell Distribution Width 18.1 H Platelet Count 94 #L Mean Platelet Volume 12.0 H Neutrophils % 58.8 Lymphocytes % 23.3 Monocytes % 15.4 H Eosinophils % 1.7 Basophils % 0.3 Nucleated Red Blood Cells % 0.0 Neutrophils # 5.8 Lymphocytes # 2.3 Monocytes # 1.5 H Eosinophils # 0.2 Basophils # 0.0 Nucleated Red Blood Cells # 0.0 Sodium Level 134 L Potassium Level 4.3 Chloride Level 110 Carbon Dioxide Level 21 Anion Gap 7 L Blood Urea Nitrogen 16 Creatinine 0.62 Glucose Level 65 #L Calcium Level 7.4 L Medications Medications Current Medications Acetaminophen (Tylenol Supp) 650 mg Q4H PRN [place] PAIN LEVEL 1-3 OR FEVER; Start 09/24/16 at 03:00 Eye Lubricant (Artificial Tears Oph) 1 drop TID BOTH EYES Last administered on 10/20/16 08:37; Admin Dose 1 DROP; Start 09/24/16 at 09:00 Sodium Hypochlorite (Dakin'S (1/4 Strength)) 1 applic BID IRR Last administered on 10/19/16 21:12; Admin Dose 1 APPLIC; Start 09/24/16 at 21:00 Pantoprazole (Protonix Iv) 40 mg BID@06,18 IV Last administered on 10/20/16 05 :45; Admin Dose 40 MG; Start 09/24/16 at 18:00 Collagenase (Santyl) 1 applic DAILY TOP Last administered on 10/19/16 10:18; Admin Dose 1 APPLIC; Start 09/24/16 at 20:30 Miscellaneous Information 1 ea NOTE XX ; Start 09/24/16 at 21:00 Glucose (Glutose) 15 gm Q15M PRN PO DECREASED GLUCOSE; Start 09/24/16 at 21:00 Glucose (Glutose) 22.5 gm Q15M PRN PO DECREASED GLUCOSE; Start 09/24/16 at 21: 00 Dextrose (D50w Syringe) 25 ml Q15M PRN IV DECREASED GLUCOSE; Start 09/24/16 at 21:00 Dextrose (D50w Syringe) 50 ml Q15M PRN IV DECREASED GLUCOSE; Start 09/24/16 at 21:00 Glucagon (Glucagen) 1 mg Q15M PRN IM DECREASED GLUCOSE; Start 09/24/16 at 21:00 Glucose 15 gm 15 gm Q15M PRN BUCCAL DECREASED GLUCOSE; Start 09/24/16 at 21:00 Acetaminophen (Ofirmev 1000mg/ 100ml Iv) 100 ml @ 400 mls/hr Q6H PRN IVPB FEVER Last administered on 10/07/16 17:14; Admin Dose 400 MLS/HR; Start at 22:00 Vancomycin HCl (Vancomycin Oral Syringe) 250 mg Q6 PO Last administered on 17:15; Admin Dose 250 MG; Start 09/26/16 at 18:00; Status Future Hold Lactobacillus Acidoph/Bulgaricus (Floranex) 1 tab TID PO Last administered on 13:22; Admin Dose 1 TAB; Start 09/26/16 at 21:00; Status Future Hold Atorvastatin Calcium (Lipitor) 20 mg QHS GTB Last administered on 10/05/16 21: 42; Admin Dose 20 MG; Start 09/28/16 at 21:00; Status Future Hold Finasteride (Proscar) 5 mg DAILY GTB Last administered on 10/06/16 09:12; Admin Dose 5 MG; Start 09/29/16 at 09:00; Status Future Hold Multivitamins Therapeutic (Theragran) 1 tab DAILY GTB Last administered on 09:12; Admin Dose 1 TAB; Start 09/29/16 at 09:00; Status Future Hold Zinc Sulfate (Zinc Sulfate) 220 mg DAILY NGT Last administered on 10/06/16 09: 13; Admin Dose 220 MG; Start 09/29/16 at 09:00; Status Future Hold Ondansetron HCl (Zofran Inj) 4 mg Q6H PRN IV NAUSEA AND/OR VOMITING Last administered on 10/13/16 16:10; Admin Dose 4 MG; Start 09/29/16 at 07:30 Acetaminophen 650 mg 650 mg Q6H PRN GTB PAIN AND OR ELEVATED TEMP Last administered on 10/19/16 17:55; Admin Dose 650 MG; Start 10/02/16 at 08:00 Metronidazole (Flagyl 500 Mg (Pmx)) 100 ml @ 100 mls/hr Q8 IVPB Last administered on 10/20/16 05:46; Admin Dose 100 MLS/HR; Start 10/02/16 at 14:00 Midodrine 10 mg 10 mg TID@,,17 PO Last administered on 10/06/16 17:15; Admin Dose 10 MG; Start 10/06/16 at 01:00; Status Future Hold Linezolid (Zyvox 600mg/D5W (Pmx)) 300 ml @ 300 mls/hr Q12 IVPB Last administered on 10/20/16 08:37; Admin Dose 300 MLS/HR; Start 10/06/16 at 21:00 Levothyroxine Sodium (Synthroid Iv) 12.5 mcg DAILY@06 IV Last administered on 05:46; Admin Dose 12.5 MCG; Start 10/07/16 at 06:00 Metoclopramide HCl (Reglan) 5 mg Q8 IV Last administered on 10/20/16 05:46; Admin Dose 5 MG; Start 10/06/16 at 22:00 Voriconazole 200 mg 200 mg BID PO Last administered on 10/20/16 08:37; Admin Dose 200 MG; Start 10/08/16 at 21:00 Colistimethate Sodium/Sodium Chloride (Coly-Mycin/NS) 100 ml @ 200 mls/hr Q12 IVPB Last administered on 10/20/16 09:50; Admin Dose 200 MLS/HR; Start at 13:30 MAGGIE DINERO MD Oct 20, 2016 10:46
--- NOTE | 2016-10-20 11:59 | PN ---
Date/Time of Note Date/Time of Note DATE: 10/20/16 TIME: 11:58 Assessment/Plan VTE Prophylaxis VTE Prophylaxis Intervention: SCD's Lines/Catheters IV Catheter Type (from Nrsg): Central Line Central line still needed: No Urinary Cath still in place: Yes Reason Cath still needed: urinary retention Assessment/Plan Chief Complaint/Hosp Course The patient with no cahgne Problems: Assessment/Plan Severe septic shock Preserved ejection fraction Moderate aortic stenosis Respiratory failure/Tracheostomy Coronary artery disease Anemia Acute kidney injury >resolved -Patient off IV pressors -antibiotics as per infectious disease -withhold any antihypertensives at the current time given recent sepsis -borderline low BP. Subjective 24 Hr Interval Summary Free Text/Dictation the patient with no cahnge Exam/Review of Systems Vital Signs Vitals Vital Signs Date Time Temp Pulse Resp B/P Pulse Ox O2 Delivery O2 Flow Rate FiO2 10/20/16 11:37 116 20 98 30 10/20/16 07:47 100.8 80/41 10/19/16 21:00 Mechanical Ventilator Intake and Output 10/19/16 10/19/16 10/20/16 15:00 23:00 07:00 Intake Total 1200 ml 1000 ml Output Total 600 ml 450 ml Balance 600 ml 550 ml Results Result Diagram: 10/20/16 0545 10/20/16 0545 Results 24 hrs Laboratory Tests Test 10/20/16 05:45 White Blood Count 9.8 Red Blood Count 3.12 L Hemoglobin 8.0 L Hematocrit 26.9 L Mean Corpuscular Volume 86.2 Mean Corpuscular Hemoglobin 25.6 L Mean Corpuscular Hemoglobin Concent 29.7 L Red Cell Distribution Width 18.1 H Platelet Count 94 #L Mean Platelet Volume 12.0 H Neutrophils % 58.8 Lymphocytes % 23.3 Monocytes % 15.4 H Eosinophils % 1.7 Basophils % 0.3 Nucleated Red Blood Cells % 0.0 Neutrophils # 5.8 Lymphocytes # 2.3 Monocytes # 1.5 H Eosinophils # 0.2 Basophils # 0.0 Nucleated Red Blood Cells # 0.0 Sodium Level 134 L Potassium Level 4.3 Chloride Level 110 Carbon Dioxide Level 21 Anion Gap 7 L Blood Urea Nitrogen 16 Creatinine 0.62 Glucose Level 65 #L Calcium Level 7.4 L Medications Medications Current Medications Acetaminophen (Tylenol Supp) 650 mg Q4H PRN [place] PAIN LEVEL 1-3 OR FEVER; Start 09/24/16 at 03:00 Eye Lubricant (Artificial Tears Oph) 1 drop TID BOTH EYES Last administered on 10/20/16 08:37; Admin Dose 1 DROP; Start 09/24/16 at 09:00 Sodium Hypochlorite (Dakin'S (1/4 Strength)) 1 applic BID IRR Last administered on 10/19/16 21:12; Admin Dose 1 APPLIC; Start 09/24/16 at 21:00 Pantoprazole (Protonix Iv) 40 mg BID@06,18 IV Last administered on 10/20/16 05 :45; Admin Dose 40 MG; Start 09/24/16 at 18:00 Collagenase (Santyl) 1 applic DAILY TOP Last administered on 10/19/16 10:18; Admin Dose 1 APPLIC; Start 09/24/16 at 20:30 Miscellaneous Information 1 ea NOTE XX ; Start 09/24/16 at 21:00 Glucose (Glutose) 15 gm Q15M PRN PO DECREASED GLUCOSE; Start 09/24/16 at 21:00 Glucose (Glutose) 22.5 gm Q15M PRN PO DECREASED GLUCOSE; Start 09/24/16 at 21: 00 Dextrose (D50w Syringe) 25 ml Q15M PRN IV DECREASED GLUCOSE; Start 09/24/16 at 21:00 Dextrose (D50w Syringe) 50 ml Q15M PRN IV DECREASED GLUCOSE; Start 09/24/16 at 21:00 Glucagon (Glucagen) 1 mg Q15M PRN IM DECREASED GLUCOSE; Start 09/24/16 at 21:00 Glucose 15 gm 15 gm Q15M PRN BUCCAL DECREASED GLUCOSE; Start 09/24/16 at 21:00 Acetaminophen (Ofirmev 1000mg/ 100ml Iv) 100 ml @ 400 mls/hr Q6H PRN IVPB FEVER Last administered on 10/07/16 17:14; Admin Dose 400 MLS/HR; Start at 22:00 Vancomycin HCl (Vancomycin Oral Syringe) 250 mg Q6 PO Last administered on 17:15; Admin Dose 250 MG; Start 09/26/16 at 18:00; Status Future Hold Lactobacillus Acidoph/Bulgaricus (Floranex) 1 tab TID PO Last administered on 13:22; Admin Dose 1 TAB; Start 09/26/16 at 21:00; Status Future Hold Atorvastatin Calcium (Lipitor) 20 mg QHS GTB Last administered on 10/05/16 21: 42; Admin Dose 20 MG; Start 09/28/16 at 21:00; Status Future Hold Finasteride (Proscar) 5 mg DAILY GTB Last administered on 10/06/16 09:12; Admin Dose 5 MG; Start 09/29/16 at 09:00; Status Future Hold Multivitamins Therapeutic (Theragran) 1 tab DAILY GTB Last administered on 09:12; Admin Dose 1 TAB; Start 09/29/16 at 09:00; Status Future Hold Zinc Sulfate (Zinc Sulfate) 220 mg DAILY NGT Last administered on 10/06/16 09: 13; Admin Dose 220 MG; Start 09/29/16 at 09:00; Status Future Hold Ondansetron HCl (Zofran Inj) 4 mg Q6H PRN IV NAUSEA AND/OR VOMITING Last administered on 10/13/16 16:10; Admin Dose 4 MG; Start 09/29/16 at 07:30 Acetaminophen 650 mg 650 mg Q6H PRN GTB PAIN AND OR ELEVATED TEMP Last administered on 10/19/16 17:55; Admin Dose 650 MG; Start 10/02/16 at 08:00 Metronidazole (Flagyl 500 Mg (Pmx)) 100 ml @ 100 mls/hr Q8 IVPB Last administered on 10/20/16 05:46; Admin Dose 100 MLS/HR; Start 10/02/16 at 14:00 Midodrine 10 mg 10 mg TID@,,17 PO Last administered on 10/06/16 17:15; Admin Dose 10 MG; Start 10/06/16 at 01:00; Status Future Hold Linezolid (Zyvox 600mg/D5W (Pmx)) 300 ml @ 300 mls/hr Q12 IVPB Last administered on 10/20/16 08:37; Admin Dose 300 MLS/HR; Start 10/06/16 at 21:00 Levothyroxine Sodium (Synthroid Iv) 12.5 mcg DAILY@06 IV Last administered on 05:46; Admin Dose 12.5 MCG; Start 10/07/16 at 06:00 Metoclopramide HCl (Reglan) 5 mg Q8 IV Last administered on 10/20/16 05:46; Admin Dose 5 MG; Start 10/06/16 at 22:00 Voriconazole 200 mg 200 mg BID PO Last administered on 10/20/16 08:37; Admin Dose 200 MG; Start 10/08/16 at 21:00 Colistimethate Sodium/Sodium Chloride (Coly-Mycin/NS) 100 ml @ 200 mls/hr Q12 IVPB Last administered on 10/20/16 09:50; Admin Dose 200 MLS/HR; Start at 13:30 HUGO DIAZ MD Oct 20, 2016 11:59
--- NOTE | 2016-10-20 14:21 | PN ---
Date/Time of Note Date/Time of Note DATE: 10/20/16 TIME: 14:17 Assessment/Plan VTE Prophylaxis VTE Prophylaxis Intervention: contraindicated Lines/Catheters IV Catheter Type (from Nrs): Central Line Central line still needed: Yes Urinary Cath still in place: Yes Reason Cath still needed: other (indicate) (monitor I&O) Assessment/Plan Chief Complaint/Hosp Course assessment and plan 1. Sepsis secondary to infected sacral decubitus ulcers with multiple organisms including Klebsiella pneumonia, Acinetobacter baumannii, VRE, staph aureus. ID following. Continue antibiotics. 2. Sacral decubitus ulcer with infection. Continue with wound care. Continue with analgesics as needed. on abx. Improved 3. Acute renal insufficiency. Stable at present. Avoid nephrotoxic medications.continue with nephrology recs. Stable 4. Chronic respiratory failure. Reactor Kettle Operator on the case. Continue bronchodilators and pulmonary hygiene. stable 5. 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 On antibiotics. Continuing wound care. surgeon following. stable 6. Encephalopathy (chronic). Continue to turn every 2 hours as needed. Continue with aspiration precautions 7. Hypothyroidism. Continue on Synthroid 8. Dysphagia. Continue aspiration precautions. 9. Anemia of chronic disease. Continue to monitor H&H. Transfuse as needed 10. Leukocytosis with thrombocytosis. Oncologist/computer service technician following. Continued recommendations 11. Ileus. resolved. monitor Disposition and plan: Plan family meeting. Continue supportive care. Follow- up a.m. labs Discussed plan of care with Dr. Morocho Problems: Subjective 24 Hr Interval Summary Free Text/Dictation Remains nonverbal. No apparent distress seen. Exam/Review of Systems Vital Signs Vitals Vital Signs Date Time Temp Pulse Resp B/P Pulse Ox O2 Delivery O2 Flow Rate FiO2 10/20/16 13:55 115 19 97 30 10/20/16 11:56 98.7 81/44 10/19/16 21:00 Mechanical Ventilator Intake and Output 10/19/16 10/19/16 10/20/16 15:00 23:00 07:00 Intake Total 1200 ml 1000 ml Output Total 600 ml 450 ml Balance 600 ml 550 ml Exam General: On mechanical ventilation. No apparent distress. Eyes: Equal round. Able to track Neck: Tracheostomy in place. Cardiac: heart murmur, regular rate Pulmonary: On mechanical ventilation. Diminished at bases still, unchanged GI: PEG tube in place. Extremities: Edema noted bilateral lower extremities as well as upper extremities still, unchanged Skin: decubitus ulcers Neurologic: Alert. No purposeful response Results Result Diagram: 10/20/1645 10/20/16 0545 Results 24 hrs Laboratory Tests Test 10/20/16 05:45 White Blood Count 9.8 Red Blood Count 3.12 L Hemoglobin 8.0 L Hematocrit 26.9 L Mean Corpuscular Volume 86.2 Mean Corpuscular Hemoglobin 25.6 L Mean Corpuscular Hemoglobin Concent 29.7 L Red Cell Distribution Width 18.1 H Platelet Count 94 #L Mean Platelet Volume 12.0 H Neutrophils % 58.8 Lymphocytes % 23.3 Monocytes % 15.4 H Eosinophils % 1.7 Basophils % 0.3 Nucleated Red Blood Cells % 0.0 Neutrophils # 5.8 Lymphocytes # 2.3 Monocytes # 1.5 H Eosinophils # 0.2 Basophils # 0.0 Nucleated Red Blood Cells # 0.0 Sodium Level 134 L Potassium Level 4.3 Chloride Level 110 Carbon Dioxide Level 21 Anion Gap 7 L Blood Urea Nitrogen 16 Creatinine 0.62 Glucose Level 65 #L Calcium Level 7.4 L Medications Medications Current Medications Acetaminophen (Tylenol Supp) 650 mg Q4H PRN [place] PAIN LEVEL 1-3 OR FEVER; Start 09/24/16 at 03:00 Eye Lubricant (Artificial Tears Oph) 1 drop TID BOTH EYES Last administered on 10/20/16 08:37; Admin Dose 1 DROP; Start 09/24/16 at 09:00 Sodium Hypochlorite (Dakin'S (1/4 Strength)) 1 applic BID IRR Last administered on 10/19/16 21:12; Admin Dose 1 APPLIC; Start 09/24/16 at 21:00 Pantoprazole (Protonix Iv) 40 mg BID@06,18 IV Last administered on 10/20/16 05 :45; Admin Dose 40 MG; Start 09/24/16 at 18:00 Collagenase (Santyl) 1 applic DAILY TOP Last administered on 10/19/16 10:18; Admin Dose 1 APPLIC; Start 09/24/16 at 20:30 Miscellaneous Information 1 ea NOTE XX ; Start 09/24/16 at 21:00 Glucose (Glutose) 15 gm Q15M PRN PO DECREASED GLUCOSE; Start 09/24/16 at 21:00 Glucose (Glutose) 22.5 gm Q15M PRN PO DECREASED GLUCOSE; Start 09/24/16 at 21: 00 Dextrose (D50w Syringe) 25 ml Q15M PRN IV DECREASED GLUCOSE; Start 09/24/16 at 21:00 Dextrose (D50w Syringe) 50 ml Q15M PRN IV DECREASED GLUCOSE; Start 09/24/16 at 21:00 Glucagon (Glucagen) 1 mg Q15M PRN IM DECREASED GLUCOSE; Start 09/24/16 at 21:00 Glucose 15 gm 15 gm Q15M PRN BUCCAL DECREASED GLUCOSE; Start 09/24/16 at 21:00 Acetaminophen (Ofirmev 1000mg/ 100ml Iv) 100 ml @ 400 mls/hr Q6H PRN IVPB FEVER Last administered on 10/07/16 17:14; Admin Dose 400 MLS/HR; Start at 22:00 Vancomycin HCl (Vancomycin Oral Syringe) 250 mg Q6 PO Last administered on 17:15; Admin Dose 250 MG; Start 09/26/16 at 18:00; Status Future Hold Lactobacillus Acidoph/Bulgaricus (Floranex) 1 tab TID PO Last administered on 13:22; Admin Dose 1 TAB; Start 09/26/16 at 21:00; Status Future Hold Atorvastatin Calcium (Lipitor) 20 mg QHS GTB Last administered on 10/05/16 21: 42; Admin Dose 20 MG; Start 09/28/16 at 21:00; Status Future Hold Finasteride (Proscar) 5 mg DAILY GTB Last administered on 10/06/16 09:12; Admin Dose 5 MG; Start 09/29/16 at 09:00; Status Future Hold Multivitamins Therapeutic (Theragran) 1 tab DAILY GTB Last administered on 09:12; Admin Dose 1 TAB; Start 09/29/16 at 09:00; Status Future Hold Zinc Sulfate (Zinc Sulfate) 220 mg DAILY NGT Last administered on 10/06/16 09: 13; Admin Dose 220 MG; Start 09/29/16 at 09:00; Status Future Hold Ondansetron HCl (Zofran Inj) 4 mg Q6H PRN IV NAUSEA AND/OR VOMITING Last administered on 10/13/16 16:10; Admin Dose 4 MG; Start 09/29/16 at 07:30 Acetaminophen 650 mg 650 mg Q6H PRN GTB PAIN AND OR ELEVATED TEMP Last administered on 10/19/16 17:55; Admin Dose 650 MG; Start 10/02/16 at 08:00 Metronidazole (Flagyl 500 Mg (Pmx)) 100 ml @ 100 mls/hr Q8 IVPB Last administered on 10/20/16 05:46; Admin Dose 100 MLS/HR; Start 10/02/16 at 14:00 Midodrine 10 mg 10 mg TID@,,17 PO Last administered on 10/06/16 17:15; Admin Dose 10 MG; Start 10/06/16 at 01:00; Status Future Hold Linezolid (Zyvox 600mg/D5W (Pmx)) 300 ml @ 300 mls/hr Q12 IVPB Last administered on 10/20/16 08:37; Admin Dose 300 MLS/HR; Start 10/06/16 at 21:00 Levothyroxine Sodium (Synthroid Iv) 12.5 mcg DAILY@06 IV Last administered on 05:46; Admin Dose 12.5 MCG; Start 10/07/16 at 06:00 Metoclopramide HCl (Reglan) 5 mg Q8 IV Last administered on 10/20/16 05:46; Admin Dose 5 MG; Start 10/06/16 at 22:00 Voriconazole 200 mg 200 mg BID PO Last administered on 10/20/16 08:37; Admin Dose 200 MG; Start 10/08/16 at 21:00 Colistimethate Sodium/Sodium Chloride (Coly-Mycin/NS) 100 ml @ 200 mls/hr Q12 IVPB Last administered on 10/20/16 09:50; Admin Dose 200 MLS/HR; Start at 13:30 TAMMIE RIBERA Oct 20, 2016 14:21
--- NOTE | 2016-10-20 15:10 | CONS ---
Date/Time of Note Date/Time of Note DATE: 10/20/16 TIME: 15:07 Assessment/Plan Assessment/Plan Additional Assessment/Plan Ventilator settings; AC of 16, tidal volume 500, PEEP of 5, 30% FiO2. Assessment recommendations; 1. Admitted for UTI, pneumonia and sepsis as well as sacral decubitus ulcer with osteo-myelitis. 2. Chronic respiratory failure, ventilator dependent. 3. Multi-infarct dementia. Continue current treatment. Overall prognosis remains poor. Consultation Date/Type/Reason Admit Date/Time Sep 24, 2016 at 03:19 Initial Consult Date 09/24/16 Type of Consultation: Pulmonary Referring Provider: FELIX BLAKE DO 24 HR Interval Summary Free Text/Dictation Vision condition remains stable. Remains essentially unresponsive. Has remained hemodynamically stable. General exam; elderly male, on ventilator via tracheostomy currently in no distress. Exam/Review of Systems Vital Signs Vitals Vital Signs Date Time Temp Pulse Resp B/P Pulse Ox O2 Delivery O2 Flow Rate FiO2 10/20/16 13:55 115 19 97 30 10/20/16 11:56 98.7 81/44 10/19/16 21:00 Mechanical Ventilator Intake and Output 10/19/16 10/19/16 10/20/16 15:00 23:00 07:00 Intake Total 1200 ml 1000 ml Output Total 600 ml 450 ml Balance 600 ml 550 ml Exam HEENT exam is; supple neck, no JVD. No lymphadenopathy. Midline trachea. No neck masses. Tracheostomy in place with clean insertion site. Chest examined; clear to auscultation. S1-S2 audible, no murmurs. Regular rhythm. Abdomen examination; soft, G-tube in place. No organomegaly. Bowel sounds audible. Extremity exam is; no peripheral edema. Patient does have contractures involving all 4 extremities. SUPERVISOR MAJOR APPLIANCE ASSEMBLY examination a micro patient is awake but does not follow any commands. Results Result Diagram: 10/20/16 0545 10/20/16 0545 Results 24 hrs Laboratory Tests Test 10/20/16 05:45 White Blood Count 9.8 Red Blood Count 3.12 L Hemoglobin 8.0 L Hematocrit 26.9 L Mean Corpuscular Volume 86.2 Mean Corpuscular Hemoglobin 25.6 L Mean Corpuscular Hemoglobin Concent 29.7 L Red Cell Distribution Width 18.1 H Platelet Count 94 #L Mean Platelet Volume 12.0 H Neutrophils % 58.8 Lymphocytes % 23.3 Monocytes % 15.4 H Eosinophils % 1.7 Basophils % 0.3 Nucleated Red Blood Cells % 0.0 Neutrophils # 5.8 Lymphocytes # 2.3 Monocytes # 1.5 H Eosinophils # 0.2 Basophils # 0.0 Nucleated Red Blood Cells # 0.0 Sodium Level 134 L Potassium Level 4.3 Chloride Level 110 Carbon Dioxide Level 21 Anion Gap 7 L Blood Urea Nitrogen 16 Creatinine 0.62 Glucose Level 65 #L Calcium Level 7.4 L Medications Medications Current Medications Acetaminophen (Tylenol Supp) 650 mg Q4H PRN [place] PAIN LEVEL 1-3 OR FEVER; Start 09/24/16 at 03:00 Eye Lubricant (Artificial Tears Oph) 1 drop TID BOTH EYES Last administered on 10/20/16 08:37; Admin Dose 1 DROP; Start 09/24/16 at 09:00 Sodium Hypochlorite (Dakin'S (1/4 Strength)) 1 applic BID IRR Last administered on 10/19/16 21:12; Admin Dose 1 APPLIC; Start 09/24/16 at 21:00 Pantoprazole (Protonix Iv) 40 mg BID@06,18 IV Last administered on 10/20/16 05 :45; Admin Dose 40 MG; Start 09/24/16 at 18:00 Collagenase (Santyl) 1 applic DAILY TOP Last administered on 10/19/16 10:18; Admin Dose 1 APPLIC; Start 09/24/16 at 20:30 Miscellaneous Information 1 ea NOTE XX ; Start 09/24/16 at 21:00 Glucose (Glutose) 15 gm Q15M PRN PO DECREASED GLUCOSE; Start 09/24/16 at 21:00 Glucose (Glutose) 22.5 gm Q15M PRN PO DECREASED GLUCOSE; Start 09/24/16 at 21: 00 Dextrose (D50w Syringe) 25 ml Q15M PRN IV DECREASED GLUCOSE; Start 09/24/16 at 21:00 Dextrose (D50w Syringe) 50 ml Q15M PRN IV DECREASED GLUCOSE; Start 09/24/16 at 21:00 Glucagon (Glucagen) 1 mg Q15M PRN IM DECREASED GLUCOSE; Start 09/24/16 at 21:00 Glucose 15 gm 15 gm Q15M PRN BUCCAL DECREASED GLUCOSE; Start 09/24/16 at 21:00 Acetaminophen (Ofirmev 1000mg/ 100ml Iv) 100 ml @ 400 mls/hr Q6H PRN IVPB FEVER Last administered on 10/07/16 17:14; Admin Dose 400 MLS/HR; Start at 22:00 Vancomycin HCl (Vancomycin Oral Syringe) 250 mg Q6 PO Last administered on 17:15; Admin Dose 250 MG; Start 09/26/16 at 18:00; Status Future Hold Lactobacillus Acidoph/Bulgaricus (Floranex) 1 tab TID PO Last administered on 13:22; Admin Dose 1 TAB; Start 09/26/16 at 21:00; Status Future Hold Atorvastatin Calcium (Lipitor) 20 mg QHS GTB Last administered on 10/05/16 21: 42; Admin Dose 20 MG; Start 09/28/16 at 21:00; Status Future Hold Finasteride (Proscar) 5 mg DAILY GTB Last administered on 10/06/16 09:12; Admin Dose 5 MG; Start 09/29/16 at 09:00; Status Future Hold Multivitamins Therapeutic (Theragran) 1 tab DAILY GTB Last administered on 09:12; Admin Dose 1 TAB; Start 09/29/16 at 09:00; Status Future Hold Zinc Sulfate (Zinc Sulfate) 220 mg DAILY NGT Last administered on 10/06/16 09: 13; Admin Dose 220 MG; Start 09/29/16 at 09:00; Status Future Hold Ondansetron HCl (Zofran Inj) 4 mg Q6H PRN IV NAUSEA AND/OR VOMITING Last administered on 10/13/16 16:10; Admin Dose 4 MG; Start 09/29/16 at 07:30 Acetaminophen 650 mg 650 mg Q6H PRN GTB PAIN AND OR ELEVATED TEMP Last administered on 10/19/16 17:55; Admin Dose 650 MG; Start 10/02/16 at 08:00 Metronidazole (Flagyl 500 Mg (Pmx)) 100 ml @ 100 mls/hr Q8 IVPB Last administered on 10/20/16 05:46; Admin Dose 100 MLS/HR; Start 10/02/16 at 14:00 Midodrine 10 mg 10 mg TID@,,17 PO Last administered on 10/06/16 17:15; Admin Dose 10 MG; Start 10/06/16 at 01:00; Status Future Hold Linezolid (Zyvox 600mg/D5W (Pmx)) 300 ml @ 300 mls/hr Q12 IVPB Last administered on 10/20/16 08:37; Admin Dose 300 MLS/HR; Start 10/06/16 at 21:00 Levothyroxine Sodium (Synthroid Iv) 12.5 mcg DAILY@06 IV Last administered on 05:46; Admin Dose 12.5 MCG; Start 10/07/16 at 06:00 Metoclopramide HCl (Reglan) 5 mg Q8 IV Last administered on 10/20/16 05:46; Admin Dose 5 MG; Start 10/06/16 at 22:00 Voriconazole 200 mg 200 mg BID PO Last administered on 10/20/16 08:37; Admin Dose 200 MG; Start 10/08/16 at 21:00 Colistimethate Sodium/Sodium Chloride (Coly-Mycin/NS) 100 ml @ 200 mls/hr Q12 IVPB Last administered on 10/20/16 09:50; Admin Dose 200 MLS/HR; Start at 13:30 MAIN SALTER Oct 20, 2016 15:10
--- NOTE | 2016-10-20 15:15 | CONS ---
Date/Time of Note Date/Time of Note DATE: 10/20/16 TIME: 15:14 Assessment/Plan Assessment/Plan Chief Complaint/Hosp Course ANEMIA - NEAR- MICROCYTIC WITH INCREASED RDW DROP H/H DURING HOSPITALIZATION + ACD TRANSFUSE PRBC TO KEEP HB MORE THAN 8 TRANSFUSE NEEDED GI F-UP Stool OB, negative Monitor H&H, transfuse 2 units for hemoglobin less than 8 LEUKOCYTOSIS- REACTIVE CONT ATB FOR SEPSIS THROMBOCYTOSIS REACTIVE SHOULD IMPROVE WITH RESOLUTION OF SEPSIS Severe sepsis with septic shock 2/2 Decub ulcers and/or UTI and/or PNA: stable, off pressor support Severe hypernatremic dehydration Acute renal failure 2/2 ATN from dehydration UTI Multifocal pneumonia Encephalopathy ?acute versus acute on chronic (baseline unknown) Hypokalemia Problems: Consultation Date/Type/Reason Admit Date/Time Sep 24, 2016 at 03:19 Initial Consult Date 09/24/16 Type of Consultation: [facility] Referring Provider: FELIX BLAKE DO 24 HR Interval Summary Free Text/Dictation Vision condition remains stable. Remains essentially unresponsive. Has remained hemodynamically stable. General exam; elderly male, on ventilator via tracheostomy currently in no distress. Exam/Review of Systems Vital Signs Vitals Vital Signs Date Time Temp Pulse Resp B/P Pulse Ox O2 Delivery O2 Flow Rate FiO2 10/20/16 13:55 115 19 97 30 10/20/16 11:56 98.7 81/44 10/19/16 21:00 Mechanical Ventilator Intake and Output 10/19/16 10/19/16 10/20/16 15:00 23:00 07:00 Intake Total 1200 ml 1000 ml Output Total 600 ml 450 ml Balance 600 ml 550 ml Exam Exam HEENT exam is; supple neck, no JVD. No lymphadenopathy. Midline trachea. No neck masses. Tracheostomy in place with clean insertion site. Chest examined; clear to auscultation. S1-S2 audible, no murmurs. Regular rhythm. Abdomen examination; soft, G-tube in place. No organomegaly. Bowel sounds audible. Extremity exam is; no peripheral edema. Patient does have contractures involving all 4 extremities. GOLF RANGE ATTENDANT examination a micro patient is awake but does not follow any commands. Results Result Diagram: 10/20/16 0545 10/20/16 0545 Results 24 hrs Laboratory Tests Test 10/20/16 05:45 White Blood Count 9.8 Red Blood Count 3.12 L Hemoglobin 8.0 L Hematocrit 26.9 L Mean Corpuscular Volume 86.2 Mean Corpuscular Hemoglobin 25.6 L Mean Corpuscular Hemoglobin Concent 29.7 L Red Cell Distribution Width 18.1 H Platelet Count 94 #L Mean Platelet Volume 12.0 H Neutrophils % 58.8 Lymphocytes % 23.3 Monocytes % 15.4 H Eosinophils % 1.7 Basophils % 0.3 Nucleated Red Blood Cells % 0.0 Neutrophils # 5.8 Lymphocytes # 2.3 Monocytes # 1.5 H Eosinophils # 0.2 Basophils # 0.0 Nucleated Red Blood Cells # 0.0 Sodium Level 134 L Potassium Level 4.3 Chloride Level 110 Carbon Dioxide Level 21 Anion Gap 7 L Blood Urea Nitrogen 16 Creatinine 0.62 Glucose Level 65 #L Calcium Level 7.4 L Medications Medications Current Medications Acetaminophen (Tylenol Supp) 650 mg Q4H PRN [place] PAIN LEVEL 1-3 OR FEVER; Start 09/24/16 at 03:00 Eye Lubricant (Artificial Tears Oph) 1 drop TID BOTH EYES Last administered on 10/20/16 08:37; Admin Dose 1 DROP; Start 09/24/16 at 09:00 Sodium Hypochlorite (Dakin'S (1/4 Strength)) 1 applic BID IRR Last administered on 10/19/16 21:12; Admin Dose 1 APPLIC; Start 09/24/16 at 21:00 Pantoprazole (Protonix Iv) 40 mg BID@06,18 IV Last administered on 10/20/16 05 :45; Admin Dose 40 MG; Start 09/24/16 at 18:00 Collagenase (Santyl) 1 applic DAILY TOP Last administered on 10/19/16 10:18; Admin Dose 1 APPLIC; Start 09/24/16 at 20:30 Miscellaneous Information 1 ea NOTE XX ; Start 09/24/16 at 21:00 Glucose (Glutose) 15 gm Q15M PRN PO DECREASED GLUCOSE; Start 09/24/16 at 21:00 Glucose (Glutose) 22.5 gm Q15M PRN PO DECREASED GLUCOSE; Start 09/24/16 at 21: 00 Dextrose (D50w Syringe) 25 ml Q15M PRN IV DECREASED GLUCOSE; Start 09/24/16 at 21:00 Dextrose (D50w Syringe) 50 ml Q15M PRN IV DECREASED GLUCOSE; Start 09/24/16 at 21:00 Glucagon (Glucagen) 1 mg Q15M PRN IM DECREASED GLUCOSE; Start 09/24/16 at 21:00 Glucose 15 gm 15 gm Q15M PRN BUCCAL DECREASED GLUCOSE; Start 09/24/16 at 21:00 Acetaminophen (Ofirmev 1000mg/ 100ml Iv) 100 ml @ 400 mls/hr Q6H PRN IVPB FEVER Last administered on 10/07/16 17:14; Admin Dose 400 MLS/HR; Start at 22:00 Vancomycin HCl (Vancomycin Oral Syringe) 250 mg Q6 PO Last administered on 17:15; Admin Dose 250 MG; Start 09/26/16 at 18:00; Status Future Hold Lactobacillus Acidoph/Bulgaricus (Floranex) 1 tab TID PO Last administered on 13:22; Admin Dose 1 TAB; Start 09/26/16 at 21:00; Status Future Hold Atorvastatin Calcium (Lipitor) 20 mg QHS GTB Last administered on 10/05/16 21: 42; Admin Dose 20 MG; Start 09/28/16 at 21:00; Status Future Hold Finasteride (Proscar) 5 mg DAILY GTB Last administered on 10/06/16 09:12; Admin Dose 5 MG; Start 09/29/16 at 09:00; Status Future Hold Multivitamins Therapeutic (Theragran) 1 tab DAILY GTB Last administered on 09:12; Admin Dose 1 TAB; Start 09/29/16 at 09:00; Status Future Hold Zinc Sulfate (Zinc Sulfate) 220 mg DAILY NGT Last administered on 10/06/16 09: 13; Admin Dose 220 MG; Start 09/29/16 at 09:00; Status Future Hold Ondansetron HCl (Zofran Inj) 4 mg Q6H PRN IV NAUSEA AND/OR VOMITING Last administered on 10/13/16 16:10; Admin Dose 4 MG; Start 09/29/16 at 07:30 Acetaminophen 650 mg 650 mg Q6H PRN GTB PAIN AND OR ELEVATED TEMP Last administered on 10/19/16 17:55; Admin Dose 650 MG; Start 10/02/16 at 08:00 Metronidazole (Flagyl 500 Mg (Pmx)) 100 ml @ 100 mls/hr Q8 IVPB Last administered on 10/20/16 05:46; Admin Dose 100 MLS/HR; Start 10/02/16 at 14:00 Midodrine 10 mg 10 mg TID@,,17 PO Last administered on 10/06/16 17:15; Admin Dose 10 MG; Start 10/06/16 at 01:00; Status Future Hold Linezolid (Zyvox 600mg/D5W (Pmx)) 300 ml @ 300 mls/hr Q12 IVPB Last administered on 10/20/16 08:37; Admin Dose 300 MLS/HR; Start 10/06/16 at 21:00 Levothyroxine Sodium (Synthroid Iv) 12.5 mcg DAILY@06 IV Last administered on 05:46; Admin Dose 12.5 MCG; Start 10/07/16 at 06:00 Metoclopramide HCl (Reglan) 5 mg Q8 IV Last administered on 10/20/16 05:46; Admin Dose 5 MG; Start 10/06/16 at 22:00 Voriconazole 200 mg 200 mg BID PO Last administered on 10/20/16 08:37; Admin Dose 200 MG; Start 10/08/16 at 21:00 Colistimethate Sodium/Sodium Chloride (Coly-Mycin/NS) 100 ml @ 200 mls/hr Q12 IVPB Last administered on 10/20/16 09:50; Admin Dose 200 MLS/HR; Start at 13:30 SCOTT RODRIGUES MD Oct 20, 2016 15:14
--- NOTE | 2016-10-20 15:46 | PN ---
DATE: 10/20/2016 SUBJECTIVE: The patient himself is not verbal or communicative. He does have penoscrotal edema and erythema of the scrotum. He does have contractures of the lower extremities and he also has a trac heostomy, is on a respirator. OBJECTIVE VITAL SIGNS: His temperature is 100.8. The blood pressure is 80/41. The pulse is 118, respiration 18. ABDOMEN: Soft. No abdominal mass palpable. GENITALIA: The penoscrotal edema is about the same as it has been yesterday and the scrotal and pen ile skin are erythematous, but no sign of infection or fluid collection. The Cee catheter that he has is draining clear urine. EXTREMITIES: He does have contractures again of the lower extremities and needs to have a pillow pu t between his 2 knees to keep his legs . LABORATORY DATA: His CBC shows a white count of 9.8, hemoglobin 8.0, hematocrit 26.9. BUN is 16, c reatinine 0.62, sodium 134, potassium 4.3, chloride 110, CO2 of 21. Urine culture from yesterday sh owed no growth after 24 hours. He previously had Teresita glabrata in his urine. IMPRESSION: Penoscrotal edema and urinary tract infection. PLAN: To continue to elevate the scrotum and the penis on a towel, also put a pillow between his le gs to prevent compression sores on his knees and as far as the urine culture, we will wait for the f inal report. We should be having it tomorrow. Dictated By: MISHEL WOODWARD/ELIZABETH Conf#: [id number] DID#: [id number]
--- NOTE | 2016-10-20 20:28 | PN ---
DATE: 10/20/2016 SUBJECTIVE: No acute changes. The patient continues to spike fevers. He is lying comfortably in b ed in no distress. LABORATORY DATA: WBC 9.8, H and H 8 and 26.9, platelets 94, no shift. BUN 16, creatinine 0.62. MICROBIOLOGY: Blood culture on admission grew E. coli and Bacteroides fragilis with repeat blood cu ltures being negative. Wound culture grew E. coli, Proteus mirabilis, strep, VRE, MRSA, Acinetobact er baumannii, and Klebsiella pneumoniae. INDWELLINGS: Trach, PEG, Cee, left subclavian triple lumen catheter placed on admission. ANTIMICROBIALS: 1. Voriconazole. 2. Colistin. 3. Zyvox. 4. Flagyl. PHYSICAL EXAMINATION: GENERAL: Chronically ill-appearing, elderly man who is in no distress. HEENT: Head atraumatic, normocephalic. Sclerae anicteric. Buccal mucosa dry. NECK: Supple. Tracheostomy present. CHEST: Rise symmetrical. Breath sounds diminished. HEART: S1, S2. ABDOMEN: Obese, soft, bowel tones present. EXTREMITIES: No cyanosis. Bilateral edema. SKIN: With multiple unstageable decubitus. ASSESSMENT: 1. Persistent fevers, possibly line sepsis. 2. Status post sepsis with bacteremia. 3. Urinary tract infection. 4. Resolving pneumonia. 5. Chronic respiratory failure. 6. History of pseudomembranous colitis. 7. Dementia. 8. Tachycardia. PLAN: Continue present care. Continue on current antimicrobials. Keep scrotum elevated. Continue local wound care as per surgical recommendations. Consider discontinuing triple lumen catheter. A wait for repeat blood cultures yesterday. Dictated By: CHRISTOPHER MCDONOUGH SHOW HOST/HOSTESS for YAQUELIN ESTRELLA MD NI/NTS Conf#: [id number] DID#: [id number] CC: FELIX BLAKE MD;*End*
--- NOTE | 2016-10-20 22:53 | PN ---
Date/Time of Note Date/Time of Note DATE: 10/20/16 TIME: 22:52 Assessment/Plan Lines/Catheters IV Catheter Type (from [facility]): Central Line Cee in Place (from [facility]): Yes Assessment/Plan Chief Complaint/Hosp Course 1. Shock, septic (uti, pna, wound). -Judicious fluid management -Supportive measures -Antibiotics 2. Multiple decubitus ulcerations with necrotic tissue and deep tissue injury -Offload -Local care -Vitamin C -Eventual nutritional optimization -Debridement when medically cleared 3. Contracted state with functional quadriplegia -Offloading -Nutritional optimization when possible 4. Anemia -Monitor 5. Ventilator dependent respiratory failure -Ventilator management and pulmonary toilet 6. Renal insufficiency -Judicious fluid management -Avoid nephrotoxic agents 7. Coronary artery disease and history of non-ST elevation NM -Cardiac optimization Thank you Problems: Subjective 24 Hr Interval Summary Tachycardia. Fever. Leukocytosis improving. No chills. No cough. No seizure. No rash. No blood rectum. No bloating. No seizures. No pyuria. Exam/Review of Systems Vital Signs Vitals Vital Signs Date Time Temp Pulse Resp B/P Pulse Ox O2 Delivery O2 Flow Rate FiO2 10/20/16 21:06 118 23 97 30 10/20/16 20:55 98.3 95/54 10/19/16 21:00 Mechanical Ventilator Intake and Output 10/19/16 10/19/16 10/20/16 15:00 23:00 07:00 Intake Total 1200 ml 1000 ml Output Total 600 ml 450 ml Balance 600 ml 550 ml Results Result Diagram: 10/20/16 0545 10/20/16 0545 VEA GUARDADO MD Oct 20, 2016 22:53
[2016-10-21] VITALS (24 sets, daily range): BP systolic 90–103; BP diastolic 47–56; PULSE 124–132; RESP 10–25
[2016-10-21] MEDS: ALBUTEROL HFA 8 GM INHALER INH SCH ×4 (01:12→20:31)
[2016-10-21] MEDS: IPRATROPIUM (HFA) 12.9 GM INHALER INH SCH ×4 (01:12→20:30)
[2016-10-21] MEDS: PANTOPRAZOLE 40 MG INJ IV SCH (05:05)
[2016-10-21] MEDS: LEVOTHYROXINE 100 MCG VIAL IV SCH (05:05)
[2016-10-21] MEDS: metroNIDAZOLE 500 MG/NS (PMX) 100 ML IVPB SCH ×3 (05:06→21:42)
[2016-10-21] MEDS: METOCLOPRAMIDE 10 MG INJ IV SCH ×3 (05:06→21:42)
[2016-10-21 06:04] LABS: ADD SCAN DIFF NO
[2016-10-21 06:12] LABS: ABNORMAL IP MESSAGE 1; BASOPHILS % 0.3 % (0.0-2.0); EOSINOPHILS # 0.1 10^3/ul (0.0-0.5); HEMOGLOBIN 8.3 g/dl (14.0-18.0); LYMPHOCYTES # 2.8 10^3/ul (0.8-2.9); LYMPHOCYTES % 24.1 % (15.0-51.0); MEAN CORPUSCULAR HEMOGLOBIN 25.4 pg (29.0-33.0); MEAN CORPUSCULAR HGB CONC 29.6 g/dl (32.0-37.0); MEAN CORPUSCULAR VOLUME 85.6 fl (82.0-101.0); MEAN PLATELET VOLUME 10.7 fl (7.4-10.4); MONOCYTE # 1.8 10^3/ul (0.3-0.9); MONOCYTES % 15.3 % (0.0-11.0); NEUTROPHIL # 6.8 10^3/ul (1.6-7.5); NEUTROPHILS % 58.9 % (39.0-77.0); PLATELET COUNT 36 10^3/UL (140-415); RED BLOOD COUNT 3.27 10^6/ul (4.70-6.10); WHITE BLOOD COUNT 11.6 10^3/ul (4.8-10.8)
[2016-10-21] MEDS: SODIUM HYPOCHLORITE 0.125% 473 ML BTL IRR SCH ×2 (08:24→20:51)
[2016-10-21] MEDS: ARTIFICIAL TEARS 15 ML OPH BOTH EYES SCH ×3 (08:24→19:51)
[2016-10-21] MEDS: COLISTIMETHATE 75 MG in SOD CHLORIDE 0.9% 100 ML IVPB SCH ×2 (08:25→19:52)
[2016-10-21] MEDS: LINEZOLID 600 MG/D5W (PMX) 300 ML IVPB SCH ×2 (08:25→20:51)
[2016-10-21] MEDS: VORICONAZOLE 200 MG TAB PO SCH ×2 (08:25→20:51)
[2016-10-21 08:53] LABS: POTASSIUM 4.1 mmol/L (3.5-5.1)
[2016-10-21 08:55] LABS: CREATININE 0.83 mg/dl (0.61-1.24)
[2016-10-21 08:56] LABS: CALCIUM 7.6 mg/dl (8.4-10.2)
--- NOTE | 2016-10-21 09:25 | CONS ---
Date/Time of Note Date/Time of Note DATE: 10/21/16 TIME: 09:24 Assessment/Plan Assessment/Plan Additional Assessment/Plan 1. Acute kidney injury on chronic kidney disease. due to ATN from septic shock 2. septic shock on levophed 3. severe metabolic acidosis on bicarbonate drip 5. History of chronic respiratory failure, status post tracheostomy, on ventilator. 6. History of G-tube. 7. Poor mental status due to the previous cerebrovascular accident. 8. History of dementia. 9. History of hypertension. 10. Hypocalcemia with Ca 6.9- likely pseudohypocalcemia, because corrected Ca with Serum albumin of 1.6 is 8.8-no symptoms of hypocalcemia PLAN: on Tube feeding, Hb 8.3, Bp stable,Cr stable Corrected Ca 8.8, no new orders for hypocalcemia On IV Coly-mycin and IV zyvox, need to monitor renal function and K will follow up Consultation Date/Type/Reason Admit Date/Time Sep 24, 2016 at 03:19 Initial Consult Date 09/24/16 Type of Consultation: NEPHROLOGY Referring Provider: FELIX BLAKE DO 24 HR Interval Summary Free Text/Dictation Electrolytes , Cr stable, Bp stable on venti Exam/Review of Systems Vital Signs Vitals Vital Signs Date Time Temp Pulse Resp B/P Pulse Ox O2 Delivery O2 Flow Rate FiO2 10/21/16 08:12 126 10/21/16 07:45 23 96 30 10/21/16 04:28 98.8 99/56 10/19/16 21:00 Mechanical Ventilator Intake and Output 10/20/16 10/20/16 10/21/16 15:00 23:00 07:00 Intake Total 400 ml 600 ml 740 ml Output Total 1300 ml 900 ml Balance 400 ml -700 ml -160 ml Exam GENERAL: Chronically ill-appearing, elderly man who is in no distress. HEENT: Head atraumatic, normocephalic. Sclerae anicteric. Buccal mucosa dry. NECK: Supple. Tracheostomy present. CHEST: Rise symmetrical. Breath sounds diminished. HEART: S1, S2. ABDOMEN: Obese, soft, bowel tones present. EXTREMITIES: No cyanosis. Bilateral edema. SKIN: With multiple unstageable decubitus. Results Result Diagram: 10/21/16 0536 10/21/16 0536 Results 24 hrs Laboratory Tests Test 10/21/16 05:36 White Blood Count 11.6 H Red Blood Count 3.27 L Hemoglobin 8.3 L Hematocrit 28.0 L Mean Corpuscular Volume 85.6 Mean Corpuscular Hemoglobin 25.4 L Mean Corpuscular Hemoglobin Concent 29.6 L Red Cell Distribution Width 18.0 H Platelet Count 36 #L Mean Platelet Volume 10.7 H Neutrophils % 58.9 Lymphocytes % 24.1 Monocytes % 15.3 H Eosinophils % 1.0 Basophils % 0.3 Nucleated Red Blood Cells % 0.0 Neutrophils # 6.8 Lymphocytes # 2.8 Monocytes # 1.8 H Eosinophils # 0.1 Basophils # 0.0 Nucleated Red Blood Cells # 0.0 Sodium Level 137 Potassium Level 4.1 Chloride Level 108 Carbon Dioxide Level 22 Anion Gap 11 Blood Urea Nitrogen 20 Creatinine 0.83 Glucose Level 75 Calcium Level 7.6 L Medications Medications Current Medications Acetaminophen (Tylenol Supp) 650 mg Q4H PRN IN PAIN LEVEL 1-3 OR FEVER; Start 09/24/16 at 03:00 Eye Lubricant (Artificial Tears Oph) 1 drop TID BOTH EYES Last administered on 10/21/16 08:24; Admin Dose 1 DROP; Start 09/24/16 at 09:00 Sodium Hypochlorite (Dakin'S (1/4 Strength)) 1 applic BID IRR Last administered on 10/21/16 08:24; Admin Dose 1 APPLIC; Start 09/24/16 at 21:00 Pantoprazole (Protonix Iv) 40 mg BID@06,18 IV Last administered on 10/21/16 05 :05; Admin Dose 40 MG; Start 09/24/16 at 18:00 Collagenase (Santyl) 1 applic DAILY TOP Last administered on 10/20/16 01:00; Admin Dose 1 APPLIC; Start 09/24/16 at 20:30 Miscellaneous Information 1 ea NOTE XX ; Start 09/24/16 at 21:00 Glucose (Glutose) 15 gm Q15M PRN PO DECREASED GLUCOSE; Start 09/24/16 at 21:00 Glucose (Glutose) 22.5 gm Q15M PRN PO DECREASED GLUCOSE; Start 09/24/16 at 21: 00 Dextrose (D50w Syringe) 25 ml Q15M PRN IV DECREASED GLUCOSE; Start 09/24/16 at 21:00 Dextrose (D50w Syringe) 50 ml Q15M PRN IV DECREASED GLUCOSE; Start 09/24/16 at 21:00 Glucagon (Glucagen) 1 mg Q15M PRN IM DECREASED GLUCOSE; Start 09/24/16 at 21:00 Glucose 15 gm 15 gm Q15M PRN BUCCAL DECREASED GLUCOSE; Start 09/24/16 at 21:00 Acetaminophen (Ofirmev 1000mg/ 100ml Iv) 100 ml @ 400 mls/hr Q6H PRN IVPB FEVER Last administered on 10/07/16 17:14; Admin Dose 400 MLS/HR; Start at 22:00 Vancomycin HCl (Vancomycin Oral Syringe) 250 mg Q6 PO Last administered on 17:15; Admin Dose 250 MG; Start 09/26/16 at 18:00; Status Future Hold Lactobacillus Acidoph/Bulgaricus (Floranex) 1 tab TID PO Last administered on 13:22; Admin Dose 1 TAB; Start 09/26/16 at 21:00; Status Future Hold Atorvastatin Calcium (Lipitor) 20 mg QHS GTB Last administered on 10/05/16 21: 42; Admin Dose 20 MG; Start 09/28/16 at 21:00; Status Future Hold Finasteride (Proscar) 5 mg DAILY GTB Last administered on 10/06/16 09:12; Admin Dose 5 MG; Start 09/29/16 at 09:00; Status Future Hold Multivitamins Therapeutic (Theragran) 1 tab DAILY GTB Last administered on 09:12; Admin Dose 1 TAB; Start 09/29/16 at 09:00; Status Future Hold Zinc Sulfate (Zinc Sulfate) 220 mg DAILY NGT Last administered on 10/06/16 09: 13; Admin Dose 220 MG; Start 09/29/16 at 09:00; Status Future Hold Ondansetron HCl (Zofran Inj) 4 mg Q6H PRN IV NAUSEA AND/OR VOMITING Last administered on 10/13/16 16:10; Admin Dose 4 MG; Start 09/29/16 at 07:30 Acetaminophen 650 mg 650 mg Q6H PRN GTB PAIN AND OR ELEVATED TEMP Last administered on 10/19/16 17:55; Admin Dose 650 MG; Start 10/02/16 at 08:00 Metronidazole (Flagyl 500 Mg (Pmx)) 100 ml @ 100 mls/hr Q8 IVPB Last administered on 10/21/16 05:06; Admin Dose 100 MLS/HR; Start 10/02/16 at 14:00 Midodrine 10 mg 10 mg TID@,,17 PO Last administered on 10/06/16 17:15; Admin Dose 10 MG; Start 10/06/16 at 01:00; Status Future Hold Linezolid (Zyvox 600mg/D5W (Pmx)) 300 ml @ 300 mls/hr Q12 IVPB Last administered on 10/21/16 08:25; Admin Dose 300 MLS/HR; Start 10/06/16 at 21:00 Levothyroxine Sodium (Synthroid Iv) 12.5 mcg DAILY@06 IV Last administered on 05:05; Admin Dose 12.5 MCG; Start 10/07/16 at 06:00 Metoclopramide HCl (Reglan) 5 mg Q8 IV Last administered on 10/21/16 05:06; Admin Dose 5 MG; Start 10/06/16 at 22:00 Voriconazole 200 mg 200 mg BID PO Last administered on 10/21/16 08:25; Admin Dose 200 MG; Start 10/08/16 at 21:00 Colistimethate Sodium/Sodium Chloride (Coly-Mycin/NS) 100 ml @ 200 mls/hr Q12 IVPB Last administered on 10/21/16 08:25; Admin Dose 200 MLS/HR; Start at 13:30 MAGGIE DINERO MD Oct 21, 2016 09:25
--- NOTE | 2016-10-21 10:21 | CONS ---
Date/Time of Note Date/Time of Note DATE: 10/21/16 TIME: 10:20 Assessment/Plan Assessment/Plan Chief Complaint/Hosp Course ANEMIA - NEAR- MICROCYTIC WITH INCREASED RDW DROP H/H DURING HOSPITALIZATION + ACD TRANSFUSE PRBC TO KEEP HB MORE THAN 8 TRANSFUSE NEEDED GI F-UP Stool OB, negative Monitor H&H, transfuse 2 units for hemoglobin less than 8 LEUKOCYTOSIS- REACTIVE CONT ATB FOR SEPSIS THROMBOCYTOSIS REACTIVE SHOULD IMPROVE WITH RESOLUTION OF SEPSIS Severe sepsis with septic shock 2/2 Decub ulcers and/or UTI and/or PNA: stable, off pressor support Severe hypernatremic dehydration Acute renal failure 2/2 ATN from dehydration UTI Multifocal pneumonia Encephalopathy ?acute versus acute on chronic (baseline unknown) Hypokalemia Problems: Consultation Date/Type/Reason Admit Date/Time Sep 24, 2016 at 03:19 Initial Consult Date 09/24/16 [facility] Referring Provider: FELIX BLAKE DO 24 HR Interval Summary Free Text/Dictation ALL NOTED NO NEW EVENTS Exam/Review of Systems Vital Signs Vitals Vital Signs Date Time Temp Pulse Resp B/P Pulse Ox O2 Delivery O2 Flow Rate FiO2 10/21/16 09:25 128 21 95 30 10/21/16 07:58 98.6 90/52 10/19/16 21:00 Mechanical Ventilator Intake and Output 10/20/16 10/20/16 10/21/16 15:00 23:00 07:00 Intake Total 400 ml 600 ml 740 ml Output Total 1300 ml 900 ml Balance 400 ml -700 ml -160 ml Exam GENERAL: Chronically ill-appearing, elderly man who is in no distress. HEENT: Head atraumatic, normocephalic. Sclerae anicteric. Buccal mucosa dry. NECK: Supple. Tracheostomy present. CHEST: Rise symmetrical. Breath sounds diminished. HEART: S1, S2. ABDOMEN: Obese, soft, bowel tones present. EXTREMITIES: No cyanosis. Bilateral edema. SKIN: With multiple unstageable decubitus. Results Result Diagram: 10/21/16 0536 10/21/16 0536 Results 24 hrs Laboratory Tests Test 10/21/16 05:36 White Blood Count 11.6 H Red Blood Count 3.27 L Hemoglobin 8.3 L Hematocrit 28.0 L Mean Corpuscular Volume 85.6 Mean Corpuscular Hemoglobin 25.4 L Mean Corpuscular Hemoglobin Concent 29.6 L Red Cell Distribution Width 18.0 H Platelet Count 36 #L Mean Platelet Volume 10.7 H Neutrophils % 58.9 Lymphocytes % 24.1 Monocytes % 15.3 H Eosinophils % 1.0 Basophils % 0.3 Nucleated Red Blood Cells % 0.0 Neutrophils # 6.8 Lymphocytes # 2.8 Monocytes # 1.8 H Eosinophils # 0.1 Basophils # 0.0 Nucleated Red Blood Cells # 0.0 Sodium Level 137 Potassium Level 4.1 Chloride Level 108 Carbon Dioxide Level 22 Anion Gap 11 Blood Urea Nitrogen 20 Creatinine 0.83 Glucose Level 75 Calcium Level 7.6 L Medications Medications Current Medications Acetaminophen (Tylenol Supp) 650 mg Q4H PRN [place] PAIN LEVEL 1-3 OR FEVER; Start 09/24/16 at 03:00 Eye Lubricant (Artificial Tears Oph) 1 drop TID BOTH EYES Last administered on 10/21/16 08:24; Admin Dose 1 DROP; Start 09/24/16 at 09:00 Sodium Hypochlorite (Dakin'S (1/4 Strength)) 1 applic BID IRR Last administered on 10/21/16 08:24; Admin Dose 1 APPLIC; Start 09/24/16 at 21:00 Pantoprazole (Protonix Iv) 40 mg BID@06,18 IV Last administered on 10/21/16 05 :05; Admin Dose 40 MG; Start 09/24/16 at 18:00 Collagenase (Santyl) 1 applic DAILY TOP Last administered on 10/20/16 01:00; Admin Dose 1 APPLIC; Start 09/24/16 at 20:30 Miscellaneous Information 1 ea NOTE XX ; Start 09/24/16 at 21:00 Glucose (Glutose) 15 gm Q15M PRN PO DECREASED GLUCOSE; Start 09/24/16 at 21:00 Glucose (Glutose) 22.5 gm Q15M PRN PO DECREASED GLUCOSE; Start 09/24/16 at 21: 00 Dextrose (D50w Syringe) 25 ml Q15M PRN IV DECREASED GLUCOSE; Start 09/24/16 at 21:00 Dextrose (D50w Syringe) 50 ml Q15M PRN IV DECREASED GLUCOSE; Start 09/24/16 at 21:00 Glucagon (Glucagen) 1 mg Q15M PRN IM DECREASED GLUCOSE; Start 09/24/16 at 21:00 Glucose 15 gm 15 gm Q15M PRN BUCCAL DECREASED GLUCOSE; Start 09/24/16 at 21:00 Acetaminophen (Ofirmev 1000mg/ 100ml Iv) 100 ml @ 400 mls/hr Q6H PRN IVPB FEVER Last administered on 10/07/16 17:14; Admin Dose 400 MLS/HR; Start at 22:00 Vancomycin HCl (Vancomycin Oral Syringe) 250 mg Q6 PO Last administered on 17:15; Admin Dose 250 MG; Start 09/26/16 at 18:00; Status Future Hold Lactobacillus Acidoph/Bulgaricus (Floranex) 1 tab TID PO Last administered on 13:22; Admin Dose 1 TAB; Start 09/26/16 at 21:00; Status Future Hold Atorvastatin Calcium (Lipitor) 20 mg QHS GTB Last administered on 10/05/16 21: 42; Admin Dose 20 MG; Start 09/28/16 at 21:00; Status Future Hold Finasteride (Proscar) 5 mg DAILY GTB Last administered on 10/06/16 09:12; Admin Dose 5 MG; Start 09/29/16 at 09:00; Status Future Hold Multivitamins Therapeutic (Theragran) 1 tab DAILY GTB Last administered on 09:12; Admin Dose 1 TAB; Start 09/29/16 at 09:00; Status Future Hold Zinc Sulfate (Zinc Sulfate) 220 mg DAILY NGT Last administered on 10/06/16 09: 13; Admin Dose 220 MG; Start 09/29/16 at 09:00; Status Future Hold Ondansetron HCl (Zofran Inj) 4 mg Q6H PRN IV NAUSEA AND/OR VOMITING Last administered on 10/13/16 16:10; Admin Dose 4 MG; Start 09/29/16 at 07:30 Acetaminophen 650 mg 650 mg Q6H PRN GTB PAIN AND OR ELEVATED TEMP Last administered on 10/19/16 17:55; Admin Dose 650 MG; Start 10/02/16 at 08:00 Metronidazole (Flagyl 500 Mg (Pmx)) 100 ml @ 100 mls/hr Q8 IVPB Last administered on 10/21/16 05:06; Admin Dose 100 MLS/HR; Start 10/02/16 at 14:00 Midodrine 10 mg 10 mg TID@,,17 PO Last administered on 10/06/16 17:15; Admin Dose 10 MG; Start 10/06/16 at 01:00; Status Future Hold Linezolid (Zyvox 600mg/D5W (Pmx)) 300 ml @ 300 mls/hr Q12 IVPB Last administered on 10/21/16 08:25; Admin Dose 300 MLS/HR; Start 10/06/16 at 21:00 Levothyroxine Sodium (Synthroid Iv) 12.5 mcg DAILY@06 IV Last administered on 05:05; Admin Dose 12.5 MCG; Start 10/07/16 at 06:00 Metoclopramide HCl (Reglan) 5 mg Q8 IV Last administered on 10/21/16 05:06; Admin Dose 5 MG; Start 10/06/16 at 22:00 Voriconazole 200 mg 200 mg BID PO Last administered on 10/21/16 08:25; Admin Dose 200 MG; Start 10/08/16 at 21:00 Colistimethate Sodium/Sodium Chloride (Coly-Mycin/NS) 100 ml @ 200 mls/hr Q12 IVPB Last administered on 10/21/16 08:25; Admin Dose 200 MLS/HR; Start at 13:30 SCOTT RODRIGUES MD Oct 21, 2016 10:20
--- NOTE | 2016-10-21 12:02 | PN ---
Date/Time of Note Date/Time of Note DATE: 10/21/16 TIME: 11:53 Assessment/Plan VTE Prophylaxis VTE Prophylaxis Intervention: SCD's Lines/Catheters IV Catheter Type (from Nrsg): Central Line Central line still needed: Yes Urinary Cath still in place: Yes Reason Cath still needed: other (indicate) (monitor I&O) Assessment/Plan Chief Complaint/Hosp Course assessment and plan 1. Sepsis secondary to infected sacral decubitus ulcers with multiple organisms including Klebsiella pneumonia, Acinetobacter baumannii, VRE, staph aureus. ID following. Continue antibiotics. 2. Sacral decubitus ulcer with infection. Continue with wound care. Continue with analgesics as needed. on abx. Improved 3. Acute renal insufficiency. Stable at present. Avoid nephrotoxic medications.continue with nephrology recs. Stable 4. Chronic respiratory failure. Substation Electrician Supervisor on the case. Continue bronchodilators and pulmonary hygiene. stable 5. 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 On antibiotics. Continuing wound care. surgeon following. stable 6. Encephalopathy (chronic). Continue to turn every 2 hours as needed. Continue with aspiration precautions 7. Hypothyroidism. Continue on Synthroid 8. Dysphagia. Continue aspiration precautions. 9. Anemia of chronic disease. Continue to monitor H&H. Transfuse as needed 10. Leukocytosis with thrombocytosis. Oncologist/concierge manager following. Continued recommendations 11. Ileus. resolved. monitor Disposition and plan: Plan family meeting. social services counselor following Continue supportive care. casework supervisor following. Await for placement Discussed plan of care with Dr. Chang Problems: Subjective 24 Hr Interval Summary Free Text/Dictation nonverbal. no s/s of distress Exam/Review of Systems Vital Signs Vitals Vital Signs Date Time Temp Pulse Resp B/P Pulse Ox O2 Delivery O2 Flow Rate FiO2 10/21/16 11:20 126 17 96 30 10/21/16 07:58 98.6 90/52 10/19/16 21:00 Mechanical Ventilator Intake and Output 10/20/16 10/20/16 10/21/16 15:00 23:00 07:00 Intake Total 400 ml 600 ml 740 ml Output Total 1300 ml 900 ml Balance 400 ml -700 ml -160 ml Exam General: On mechanical ventilation. comfortable at present Eyes: equal round Neck: Tracheostomy in place. Cardiac: heart murmur, regular rate still Pulmonary: On mechanical ventilation. no obvious wheezing GI: PEG tube in place. Extremities: Edema noted bilateral lower extremities as well as upper extremities still, unchanged Skin: decubitus ulcers Neurologic: Alert. No purposeful response Results Result Diagram: 10/21/1636 10/21/1636 Results 24 hrs Laboratory Tests Test 10/21/16 05:36 White Blood Count 11.6 H Red Blood Count 3.27 L Hemoglobin 8.3 L Hematocrit 28.0 L Mean Corpuscular Volume 85.6 Mean Corpuscular Hemoglobin 25.4 L Mean Corpuscular Hemoglobin Concent 29.6 L Red Cell Distribution Width 18.0 H Platelet Count 36 #L Mean Platelet Volume 10.7 H Neutrophils % 58.9 Lymphocytes % 24.1 Monocytes % 15.3 H Eosinophils % 1.0 Basophils % 0.3 Nucleated Red Blood Cells % 0.0 Neutrophils # 6.8 Lymphocytes # 2.8 Monocytes # 1.8 H Eosinophils # 0.1 Basophils # 0.0 Nucleated Red Blood Cells # 0.0 Sodium Level 137 Potassium Level 4.1 Chloride Level 108 Carbon Dioxide Level 22 Anion Gap 11 Blood Urea Nitrogen 20 Creatinine 0.83 Glucose Level 75 Calcium Level 7.6 L Medications Medications Current Medications Acetaminophen (Tylenol Supp) 650 mg Q4H PRN [place] PAIN LEVEL 1-3 OR FEVER; Start 09/24/16 at 03:00 Eye Lubricant (Artificial Tears Oph) 1 drop TID BOTH EYES Last administered on 10/21/16 08:24; Admin Dose 1 DROP; Start 09/24/16 at 09:00 Sodium Hypochlorite (Dakin'S (1/4 Strength)) 1 applic BID IRR Last administered on 10/21/16 08:24; Admin Dose 1 APPLIC; Start 09/24/16 at 21:00 Pantoprazole (Protonix Iv) 40 mg BID@06,18 IV Last administered on 10/21/16 05 :05; Admin Dose 40 MG; Start 09/24/16 at 18:00 Collagenase (Santyl) 1 applic DAILY TOP Last administered on 10/20/16 01:00; Admin Dose 1 APPLIC; Start 09/24/16 at 20:30 Miscellaneous Information 1 ea NOTE XX ; Start 09/24/16 at 21:00 Glucose (Glutose) 15 gm Q15M PRN PO DECREASED GLUCOSE; Start 09/24/16 at 21:00 Glucose (Glutose) 22.5 gm Q15M PRN PO DECREASED GLUCOSE; Start 09/24/16 at 21: 00 Dextrose (D50w Syringe) 25 ml Q15M PRN IV DECREASED GLUCOSE; Start 09/24/16 at 21:00 Dextrose (D50w Syringe) 50 ml Q15M PRN IV DECREASED GLUCOSE; Start 09/24/16 at 21:00 Glucagon (Glucagen) 1 mg Q15M PRN IM DECREASED GLUCOSE; Start 09/24/16 at 21:00 Glucose 15 gm 15 gm Q15M PRN BUCCAL DECREASED GLUCOSE; Start 09/24/16 at 21:00 Acetaminophen (Ofirmev 1000mg/ 100ml Iv) 100 ml @ 400 mls/hr Q6H PRN IVPB FEVER Last administered on 10/07/16 17:14; Admin Dose 400 MLS/HR; Start at 22:00 Vancomycin HCl (Vancomycin Oral Syringe) 250 mg Q6 PO Last administered on 17:15; Admin Dose 250 MG; Start 09/26/16 at 18:00; Status Future Hold Lactobacillus Acidoph/Bulgaricus (Floranex) 1 tab TID PO Last administered on 13:22; Admin Dose 1 TAB; Start 09/26/16 at 21:00; Status Future Hold Atorvastatin Calcium (Lipitor) 20 mg QHS GTB Last administered on 10/05/16 21: 42; Admin Dose 20 MG; Start 09/28/16 at 21:00; Status Future Hold Finasteride (Proscar) 5 mg DAILY GTB Last administered on 10/06/16 09:12; Admin Dose 5 MG; Start 09/29/16 at 09:00; Status Future Hold Multivitamins Therapeutic (Theragran) 1 tab DAILY GTB Last administered on 09:12; Admin Dose 1 TAB; Start 09/29/16 at 09:00; Status Future Hold Zinc Sulfate (Zinc Sulfate) 220 mg DAILY NGT Last administered on 10/06/16 09: 13; Admin Dose 220 MG; Start 09/29/16 at 09:00; Status Future Hold Ondansetron HCl (Zofran Inj) 4 mg Q6H PRN IV NAUSEA AND/OR VOMITING Last administered on 10/13/16 16:10; Admin Dose 4 MG; Start 09/29/16 at 07:30 Acetaminophen 650 mg 650 mg Q6H PRN GTB PAIN AND OR ELEVATED TEMP Last administered on 10/19/16 17:55; Admin Dose 650 MG; Start 10/02/16 at 08:00 Metronidazole (Flagyl 500 Mg (Pmx)) 100 ml @ 100 mls/hr Q8 IVPB Last administered on 10/21/16 05:06; Admin Dose 100 MLS/HR; Start 10/02/16 at 14:00 Midodrine 10 mg 10 mg TID@,,17 PO Last administered on 10/06/16 17:15; Admin Dose 10 MG; Start 10/06/16 at 01:00; Status Future Hold Linezolid (Zyvox 600mg/D5W (Pmx)) 300 ml @ 300 mls/hr Q12 IVPB Last administered on 10/21/16 08:25; Admin Dose 300 MLS/HR; Start 10/06/16 at 21:00 Levothyroxine Sodium (Synthroid Iv) 12.5 mcg DAILY@06 IV Last administered on 05:05; Admin Dose 12.5 MCG; Start 10/07/16 at 06:00 Metoclopramide HCl (Reglan) 5 mg Q8 IV Last administered on 10/21/16 05:06; Admin Dose 5 MG; Start 10/06/16 at 22:00 Voriconazole 200 mg 200 mg BID PO Last administered on 10/21/16 08:25; Admin Dose 200 MG; Start 10/08/16 at 21:00 Colistimethate Sodium/Sodium Chloride (Coly-Mycin/NS) 100 ml @ 200 mls/hr Q12 IVPB Last administered on 10/21/16 08:25; Admin Dose 200 MLS/HR; Start at 13:30 TAMMIE RIBERA Oct 21, 2016 12:02
--- NOTE | 2016-10-21 14:06 | CONS ---
Date/Time of Note Date/Time of Note DATE: 10/21/16 TIME: 14:04 Consult Date/Type/Reason Admit Date/Time Sep 24, 2016 at 03:19 Initial Consult Date 09/24/16 Type of Consultation: pulmonary Ordering Provider: FELIX BLAKE DO Subjective Patient remains unchanged no new events. Objective Vital Signs Date Time Temp Pulse Resp B/P Pulse Ox O2 Delivery O2 Flow Rate FiO2 10/21/16 13:10 125 21 97 30 10/21/16 12:19 102.4 93/55 10/19/16 21:00 Mechanical Ventilator Intake and Output 10/20/16 10/20/16 10/21/16 15:00 23:00 07:00 Intake Total 400 ml 600 ml 740 ml Output Total 1300 ml 900 ml Balance 400 ml -700 ml -160 ml Exam PHYSICAL EXAMINATION GENERAL: Elderly gentleman, continues mechanical ventilation. VITAL SIGNS: see below. HEENT: Pupils equal, round, and reactive to light. Tracheostomy site clean and intact. CARDIAC: S1, S2, CHEST: Diminished air entry bilaterally. ABDOMEN: Mildly distended. Bowel sounds present no guarding or rebound EXTREMITIES: No cyanosis, clubbing or edema. NEUROLOGIC: Unable to assess Results/Medications Result Diagram: 10/21/16 0536 10/21/16 0536 Results 24 hrs Laboratory Tests Test 10/21/16 05:36 White Blood Count 11.6 H Red Blood Count 3.27 L Hemoglobin 8.3 L Hematocrit 28.0 L Mean Corpuscular Volume 85.6 Mean Corpuscular Hemoglobin 25.4 L Mean Corpuscular Hemoglobin Concent 29.6 L Red Cell Distribution Width 18.0 H Platelet Count 36 #L Mean Platelet Volume 10.7 H Neutrophils % 58.9 Lymphocytes % 24.1 Monocytes % 15.3 H Eosinophils % 1.0 Basophils % 0.3 Nucleated Red Blood Cells % 0.0 Neutrophils # 6.8 Lymphocytes # 2.8 Monocytes # 1.8 H Eosinophils # 0.1 Basophils # 0.0 Nucleated Red Blood Cells # 0.0 Sodium Level 137 Potassium Level 4.1 Chloride Level 108 Carbon Dioxide Level 22 Anion Gap 11 Blood Urea Nitrogen 20 Creatinine 0.83 Glucose Level 75 Calcium Level 7.6 L Medications Current Medications Acetaminophen (Tylenol Supp) 650 mg Q4H PRN [place] PAIN LEVEL 1-3 OR FEVER; Start 09/24/16 at 03:00 Eye Lubricant (Artificial Tears Oph) 1 drop TID BOTH EYES Last administered on 10/21/16 08:24; Admin Dose 1 DROP; Start 09/24/16 at 09:00 Sodium Hypochlorite (Dakin'S (1/4 Strength)) 1 applic BID IRR Last administered on 10/21/16 08:24; Admin Dose 1 APPLIC; Start 09/24/16 at 21:00 Collagenase (Santyl) 1 applic DAILY TOP Last administered on 10/20/16 01:00; Admin Dose 1 APPLIC; Start 09/24/16 at 20:30 Miscellaneous Information 1 ea NOTE XX ; Start 09/24/16 at 21:00 Glucose (Glutose) 15 gm Q15M PRN PO DECREASED GLUCOSE; Start 09/24/16 at 21:00 Glucose (Glutose) 22.5 gm Q15M PRN PO DECREASED GLUCOSE; Start 09/24/16 at 21: 00 Dextrose (D50w Syringe) 25 ml Q15M PRN IV DECREASED GLUCOSE; Start 09/24/16 at 21:00 Dextrose (D50w Syringe) 50 ml Q15M PRN IV DECREASED GLUCOSE; Start 09/24/16 at 21:00 Glucagon (Glucagen) 1 mg Q15M PRN IM DECREASED GLUCOSE; Start 09/24/16 at 21:00 Glucose 15 gm 15 gm Q15M PRN BUCCAL DECREASED GLUCOSE; Start 09/24/16 at 21:00 Acetaminophen (Ofirmev 1000mg/ 100ml Iv) 100 ml @ 400 mls/hr Q6H PRN IVPB FEVER Last administered on 10/07/16 17:14; Admin Dose 400 MLS/HR; Start at 22:00 Vancomycin HCl (Vancomycin Oral Syringe) 250 mg Q6 PO Last administered on 17:15; Admin Dose 250 MG; Start 09/26/16 at 18:00; Status Future Hold Lactobacillus Acidoph/Bulgaricus (Floranex) 1 tab TID PO Last administered on 13:22; Admin Dose 1 TAB; Start 09/26/16 at 21:00; Status Future Hold Atorvastatin Calcium (Lipitor) 20 mg QHS GTB Last administered on 10/05/16 21: 42; Admin Dose 20 MG; Start 09/28/16 at 21:00; Status Future Hold Finasteride (Proscar) 5 mg DAILY GTB Last administered on 10/06/16 09:12; Admin Dose 5 MG; Start 09/29/16 at 09:00; Status Future Hold Multivitamins Therapeutic (Theragran) 1 tab DAILY GTB Last administered on 09:12; Admin Dose 1 TAB; Start 09/29/16 at 09:00; Status Future Hold Zinc Sulfate (Zinc Sulfate) 220 mg DAILY NGT Last administered on 10/06/16 09: 13; Admin Dose 220 MG; Start 09/29/16 at 09:00; Status Future Hold Ondansetron HCl (Zofran Inj) 4 mg Q6H PRN IV NAUSEA AND/OR VOMITING Last administered on 10/13/16 16:10; Admin Dose 4 MG; Start 09/29/16 at 07:30 Acetaminophen 650 mg 650 mg Q6H PRN GTB PAIN AND OR ELEVATED TEMP Last administered on 10/19/16 17:55; Admin Dose 650 MG; Start 10/02/16 at 08:00 Metronidazole (Flagyl 500 Mg (Pmx)) 100 ml @ 100 mls/hr Q8 IVPB Last administered on 10/21/16 05:06; Admin Dose 100 MLS/HR; Start 10/02/16 at 14:00 Midodrine 10 mg 10 mg TID@,,17 PO Last administered on 10/06/16 17:15; Admin Dose 10 MG; Start 10/06/16 at 01:00; Status Future Hold Linezolid (Zyvox 600mg/D5W (Pmx)) 300 ml @ 300 mls/hr Q12 IVPB Last administered on 10/21/16 08:25; Admin Dose 300 MLS/HR; Start 10/06/16 at 21:00 Levothyroxine Sodium (Synthroid Iv) 12.5 mcg DAILY@06 IV Last administered on 05:05; Admin Dose 12.5 MCG; Start 10/07/16 at 06:00 Metoclopramide HCl (Reglan) 5 mg Q8 IV Last administered on 10/21/16 05:06; Admin Dose 5 MG; Start 10/06/16 at 22:00 Voriconazole 200 mg 200 mg BID PO Last administered on 10/21/16 08:25; Admin Dose 200 MG; Start 10/08/16 at 21:00 Colistimethate Sodium/Sodium Chloride (Coly-Mycin/NS) 100 ml @ 200 mls/hr Q12 IVPB Last administered on 10/21/16 08:25; Admin Dose 200 MLS/HR; Start at 13:30 Lansoprazole (Prevacid) 30 mg BID@06,18 GTB ; Start 10/21/16 at 18:00 Assessment/Plan Chief Complaint/Hosp Course Assessment 1. Status post Septic shock secondary to pneumonia versus line sepsis possible adrenal insufficiency. Sepsis likely secondary to multiple decubitus ulcers 2. Significant anemia requiring blood transfusions 3. Vent dependent respiratory failure 4. Dysphagia with G-tube 5. Thrombocytopenia 6. History of renal insufficiency Plan 1. Continue mechanical ventilation 2. Continue antibiotics per infectious diseases 3. Monitor H&H 4. Continue renal recommendations, metabolic acidosis noted 5. Continue DVT and GI prophylaxis Disposition Consider transfer back to [facility] facility Problems: ABBI DELCID MD, [facility] Oct 21, 2016 14:06
--- NOTE | 2016-10-21 15:35 | CONS ---
Date/Time of Note Date/Time of Note DATE: 10/21/16 TIME: 15:33 Assessment/Plan Assessment/Plan Chief Complaint/Hosp Course SUBJECTIVE: No acute changes, non-communicative, tachycardic, low grade temps. INDWELLINGS: Trach, PEG, Cee, LSC TLC. ANTIMICROBIALS: 1. Colistin. 2. Oral voriconazole. 3. IV Zyvox. 4. IV Flagyl. PHYSICAL EXAMINATION: GENERAL: This is a chronically ill-appearing, elderly man who is lying comfortably in bed. HEENT: Head atraumatic, normocephalic. Sclerae anicteric. Buccal mucosa dry. NECK: Supple. Tracheostomy present. CHEST: Rise symmetrical. Breath sounds diminished to bases. HEART: S1, S2. ABDOMEN: Distended, soft. Bowel sounds hypoactive. EXTREMITIES: Bilateral trace edema. ASSESSMENT: 1. Sepsis, status post septic shock. 2. 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 3. Urinary tract infection. 4. Status post pneumonia and bacteremia. 5. History of severe pseudomembranous colitis. 6. Diarrhea. 7. Ileus. PLAN: Clinically unchanged, on appropriate antimicrobials. Will dc TLC and send tip for cx. Continue local wound care/scrotal elevation, abx [facility] staff Problems: Consultation Date/Type/Reason Admit Date/Time Sep 24, 2016 at 03:19 Initial Consult Date 09/24/16 Type of Consultation: ID Referring Provider: FELIX BLAKE DO Exam/Review of Systems Vital Signs Vitals Vital Signs Date Time Temp Pulse Resp B/P Pulse Ox O2 Delivery O2 Flow Rate FiO2 10/21/16 13:10 125 21 97 30 10/21/16 12:19 102.4 93/55 10/19/16 21:00 Mechanical Ventilator Intake and Output 10/20/16 10/20/16 10/21/16 15:00 23:00 07:00 Intake Total 400 ml 600 ml 740 ml Output Total 1300 ml 900 ml Balance 400 ml -700 ml -160 ml Results Result Diagram: 10/21/16 0536 10/21/16 0536 Results 24 hrs Laboratory Tests Test 10/21/16 05:36 White Blood Count 11.6 H Red Blood Count 3.27 L Hemoglobin 8.3 L Hematocrit 28.0 L Mean Corpuscular Volume 85.6 Mean Corpuscular Hemoglobin 25.4 L Mean Corpuscular Hemoglobin Concent 29.6 L Red Cell Distribution Width 18.0 H Platelet Count 36 #L Mean Platelet Volume 10.7 H Neutrophils % 58.9 Lymphocytes % 24.1 Monocytes % 15.3 H Eosinophils % 1.0 Basophils % 0.3 Nucleated Red Blood Cells % 0.0 Neutrophils # 6.8 Lymphocytes # 2.8 Monocytes # 1.8 H Eosinophils # 0.1 Basophils # 0.0 Nucleated Red Blood Cells # 0.0 Sodium Level 137 Potassium Level 4.1 Chloride Level 108 Carbon Dioxide Level 22 Anion Gap 11 Blood Urea Nitrogen 20 Creatinine 0.83 Glucose Level 75 Calcium Level 7.6 L Medications Medications Current Medications Acetaminophen (Tylenol Supp) 650 mg Q4H PRN [place] PAIN LEVEL 1-3 OR FEVER; Start 09/24/16 at 03:00 Eye Lubricant (Artificial Tears Oph) 1 drop TID BOTH EYES Last administered on 10/21/16 14:47; Admin Dose 1 DROP; Start 09/24/16 at 09:00 Sodium Hypochlorite (Dakin'S (1/4 Strength)) 1 applic BID IRR Last administered on 10/21/16 08:24; Admin Dose 1 APPLIC; Start 09/24/16 at 21:00 Collagenase (Santyl) 1 applic DAILY TOP Last administered on 10/20/16 01:00; Admin Dose 1 APPLIC; Start 09/24/16 at 20:30 Miscellaneous Information 1 ea NOTE XX ; Start 09/24/16 at 21:00 Glucose (Glutose) 15 gm Q15M PRN PO DECREASED GLUCOSE; Start 09/24/16 at 21:00 Glucose (Glutose) 22.5 gm Q15M PRN PO DECREASED GLUCOSE; Start 09/24/16 at 21: 00 Dextrose (D50w Syringe) 25 ml Q15M PRN IV DECREASED GLUCOSE; Start 09/24/16 at 21:00 Dextrose (D50w Syringe) 50 ml Q15M PRN IV DECREASED GLUCOSE; Start 09/24/16 at 21:00 Glucagon (Glucagen) 1 mg Q15M PRN IM DECREASED GLUCOSE; Start 09/24/16 at 21:00 Glucose 15 gm 15 gm Q15M PRN BUCCAL DECREASED GLUCOSE; Start 09/24/16 at 21:00 Acetaminophen (Ofirmev 1000mg/ 100ml Iv) 100 ml @ 400 mls/hr Q6H PRN IVPB FEVER Last administered on 10/07/16 17:14; Admin Dose 400 MLS/HR; Start at 22:00 Vancomycin HCl (Vancomycin Oral Syringe) 250 mg Q6 PO Last administered on 17:15; Admin Dose 250 MG; Start 09/26/16 at 18:00; Status Future Hold Lactobacillus Acidoph/Bulgaricus (Floranex) 1 tab TID PO Last administered on 13:22; Admin Dose 1 TAB; Start 09/26/16 at 21:00; Status Future Hold Atorvastatin Calcium (Lipitor) 20 mg QHS GTB Last administered on 10/05/16 21: 42; Admin Dose 20 MG; Start 09/28/16 at 21:00; Status Future Hold Finasteride (Proscar) 5 mg DAILY GTB Last administered on 10/06/16 09:12; Admin Dose 5 MG; Start 09/29/16 at 09:00; Status Future Hold Multivitamins Therapeutic (Theragran) 1 tab DAILY GTB Last administered on 09:12; Admin Dose 1 TAB; Start 09/29/16 at 09:00; Status Future Hold Zinc Sulfate (Zinc Sulfate) 220 mg DAILY NGT Last administered on 10/06/16 09: 13; Admin Dose 220 MG; Start 09/29/16 at 09:00; Status Future Hold Ondansetron HCl (Zofran Inj) 4 mg Q6H PRN IV NAUSEA AND/OR VOMITING Last administered on 10/13/16 16:10; Admin Dose 4 MG; Start 09/29/16 at 07:30 Acetaminophen 650 mg 650 mg Q6H PRN GTB PAIN AND OR ELEVATED TEMP Last administered on 10/19/16 17:55; Admin Dose 650 MG; Start 10/02/16 at 08:00 Metronidazole (Flagyl 500 Mg (Pmx)) 100 ml @ 100 mls/hr Q8 IVPB Last administered on 10/21/16 14:47; Admin Dose 100 MLS/HR; Start 10/02/16 at 14:00 Midodrine 10 mg 10 mg TID@,,17 PO Last administered on 10/06/16 17:15; Admin Dose 10 MG; Start 10/06/16 at 01:00; Status Future Hold Linezolid (Zyvox 600mg/D5W (Pmx)) 300 ml @ 300 mls/hr Q12 IVPB Last administered on 10/21/16 08:25; Admin Dose 300 MLS/HR; Start 10/06/16 at 21:00 Levothyroxine Sodium (Synthroid Iv) 12.5 mcg DAILY@06 IV Last administered on 05:05; Admin Dose 12.5 MCG; Start 10/07/16 at 06:00 Metoclopramide HCl (Reglan) 5 mg Q8 IV Last administered on 10/21/16 14:46; Admin Dose 5 MG; Start 10/06/16 at 22:00 Voriconazole 200 mg 200 mg BID PO Last administered on 10/21/16 08:25; Admin Dose 200 MG; Start 10/08/16 at 21:00 Colistimethate Sodium/Sodium Chloride (Coly-Mycin/NS) 100 ml @ 200 mls/hr Q12 IVPB Last administered on 10/21/16 08:25; Admin Dose 200 MLS/HR; Start at 13:30 Lansoprazole (Prevacid) 30 mg BID@06,18 GTB ; Start 10/21/16 at 18:00 CHRISTOPHER MCDONOUGH NP Oct 21, 2016 15:35
--- NOTE | 2016-10-21 16:45 | PN ---
Date/Time of Note Date/Time of Note DATE: 10/21/16 TIME: 16:44 Assessment/Plan VTE Prophylaxis VTE Prophylaxis Intervention: SCD's Lines/Catheters IV Catheter Type (from Nrs): Central Line Central line still needed: No Urinary Cath still in place: Yes Reason Cath still needed: urinary retention Assessment/Plan Chief Complaint/Hosp Course The patient with no cahgne Problems: Assessment/Plan Severe septic shock Preserved ejection fraction Moderate aortic stenosis Respiratory failure/Tracheostomy Coronary artery disease Anemia Acute kidney injury >resolved -Patient off IV pressors -antibiotics as per infectious disease -withhold any antihypertensives at the current time given recent sepsis -borderline low BP. Subjective 24 Hr Interval Summary Free Text/Dictation the patient wth no cahnge Exam/Review of Systems Vital Signs Vitals Vital Signs Date Time Temp Pulse Resp B/P Pulse Ox O2 Delivery O2 Flow Rate FiO2 10/21/16 16:12 126 10/21/16 15:41 102.9 12 99/53 100 10/21/16 15:05 30 10/19/16 21:00 Mechanical Ventilator Intake and Output 10/20/16 10/20/16 10/21/16 15:00 23:00 07:00 Intake Total 400 ml 600 ml 740 ml Output Total 1300 ml 900 ml Balance 400 ml -700 ml -160 ml Results Result Diagram: 10/21/16 0536 10/21/16 0536 Results 24 hrs Laboratory Tests Test 10/21/16 05:36 White Blood Count 11.6 H Red Blood Count 3.27 L Hemoglobin 8.3 L Hematocrit 28.0 L Mean Corpuscular Volume 85.6 Mean Corpuscular Hemoglobin 25.4 L Mean Corpuscular Hemoglobin Concent 29.6 L Red Cell Distribution Width 18.0 H Platelet Count 36 #L Mean Platelet Volume 10.7 H Neutrophils % 58.9 Lymphocytes % 24.1 Monocytes % 15.3 H Eosinophils % 1.0 Basophils % 0.3 Nucleated Red Blood Cells % 0.0 Neutrophils # 6.8 Lymphocytes # 2.8 Monocytes # 1.8 H Eosinophils # 0.1 Basophils # 0.0 Nucleated Red Blood Cells # 0.0 Sodium Level 137 Potassium Level 4.1 Chloride Level 108 Carbon Dioxide Level 22 Anion Gap 11 Blood Urea Nitrogen 20 Creatinine 0.83 Glucose Level 75 Calcium Level 7.6 L Medications Medications Current Medications Acetaminophen (Tylenol Supp) 650 mg Q4H PRN [place] PAIN LEVEL 1-3 OR FEVER; Start 09/24/16 at 03:00 Eye Lubricant (Artificial Tears Oph) 1 drop TID BOTH EYES Last administered on 10/21/16 14:47; Admin Dose 1 DROP; Start 09/24/16 at 09:00 Sodium Hypochlorite (Dakin'S (1/4 Strength)) 1 applic BID IRR Last administered on 10/21/16 08:24; Admin Dose 1 APPLIC; Start 09/24/16 at 21:00 Collagenase (Santyl) 1 applic DAILY TOP Last administered on 10/20/16 01:00; Admin Dose 1 APPLIC; Start 09/24/16 at 20:30 Miscellaneous Information 1 ea NOTE XX ; Start 09/24/16 at 21:00 Glucose (Glutose) 15 gm Q15M PRN PO DECREASED GLUCOSE; Start 09/24/16 at 21:00 Glucose (Glutose) 22.5 gm Q15M PRN PO DECREASED GLUCOSE; Start 09/24/16 at 21: 00 Dextrose (D50w Syringe) 25 ml Q15M PRN IV DECREASED GLUCOSE; Start 09/24/16 at 21:00 Dextrose (D50w Syringe) 50 ml Q15M PRN IV DECREASED GLUCOSE; Start 09/24/16 at 21:00 Glucagon (Glucagen) 1 mg Q15M PRN IM DECREASED GLUCOSE; Start 09/24/16 at 21:00 Glucose 15 gm 15 gm Q15M PRN BUCCAL DECREASED GLUCOSE; Start 09/24/16 at 21:00 Acetaminophen (Ofirmev 1000mg/ 100ml Iv) 100 ml @ 400 mls/hr Q6H PRN IVPB FEVER Last administered on 10/07/16 17:14; Admin Dose 400 MLS/HR; Start at 22:00 Vancomycin HCl (Vancomycin Oral Syringe) 250 mg Q6 PO Last administered on 17:15; Admin Dose 250 MG; Start 09/26/16 at 18:00; Status Future Hold Lactobacillus Acidoph/Bulgaricus (Floranex) 1 tab TID PO Last administered on 13:22; Admin Dose 1 TAB; Start 09/26/16 at 21:00; Status Future Hold Atorvastatin Calcium (Lipitor) 20 mg QHS GTB Last administered on 10/05/16 21: 42; Admin Dose 20 MG; Start 09/28/16 at 21:00; Status Future Hold Finasteride (Proscar) 5 mg DAILY GTB Last administered on 10/06/16 09:12; Admin Dose 5 MG; Start 09/29/16 at 09:00; Status Future Hold Multivitamins Therapeutic (Theragran) 1 tab DAILY GTB Last administered on 09:12; Admin Dose 1 TAB; Start 09/29/16 at 09:00; Status Future Hold Zinc Sulfate (Zinc Sulfate) 220 mg DAILY NGT Last administered on 10/06/16 09: 13; Admin Dose 220 MG; Start 09/29/16 at 09:00; Status Future Hold Ondansetron HCl (Zofran Inj) 4 mg Q6H PRN IV NAUSEA AND/OR VOMITING Last administered on 10/13/16 16:10; Admin Dose 4 MG; Start 09/29/16 at 07:30 Acetaminophen 650 mg 650 mg Q6H PRN GTB PAIN AND OR ELEVATED TEMP Last administered on 10/19/16 17:55; Admin Dose 650 MG; Start 10/02/16 at 08:00 Metronidazole (Flagyl 500 Mg (Pmx)) 100 ml @ 100 mls/hr Q8 IVPB Last administered on 10/21/16 14:47; Admin Dose 100 MLS/HR; Start 10/02/16 at 14:00 Midodrine 10 mg 10 mg TID@,,17 PO Last administered on 10/06/16 17:15; Admin Dose 10 MG; Start 10/06/16 at 01:00; Status Future Hold Linezolid (Zyvox 600mg/D5W (Pmx)) 300 ml @ 300 mls/hr Q12 IVPB Last administered on 10/21/16 08:25; Admin Dose 300 MLS/HR; Start 10/06/16 at 21:00 Levothyroxine Sodium (Synthroid Iv) 12.5 mcg DAILY@06 IV Last administered on 05:05; Admin Dose 12.5 MCG; Start 10/07/16 at 06:00 Metoclopramide HCl (Reglan) 5 mg Q8 IV Last administered on 10/21/16 14:46; Admin Dose 5 MG; Start 10/06/16 at 22:00 Voriconazole 200 mg 200 mg BID PO Last administered on 10/21/16 08:25; Admin Dose 200 MG; Start 10/08/16 at 21:00 Colistimethate Sodium/Sodium Chloride (Coly-Mycin/NS) 100 ml @ 200 mls/hr Q12 IVPB Last administered on 10/21/16 08:25; Admin Dose 200 MLS/HR; Start at 13:30 Lansoprazole (Prevacid) 30 mg BID@06,18 GTB ; Start 10/21/16 at 18:00 HUGO DIAZ MD Oct 21, 2016 16:45
[2016-10-21] MEDS: LANSOPRAZOLE 30 MG CAP GTB SCH (18:16)
--- NOTE | 2016-10-21 20:18 | PN ---
Date/Time of Note Date/Time of Note DATE: 10/21/16 TIME: 20:17 Assessment/Plan Lines/Catheters IV Catheter Type (from [facility]): Central Line Cee in Place (from [facility]): Yes Assessment/Plan Chief Complaint/Hosp Course 1. Shock, septic (uti, pna, wound). Improving -Judicious fluid management -Supportive measures -Antibiotics 2. Multiple decubitus ulcerations with necrotic tissue and deep tissue injury -Offload -Local care -Vitamin C -Eventual nutritional optimization -Debridement when medically cleared 3. Contracted state with functional quadriplegia -Offloading -Nutritional optimization when possible 4. Anemia -Monitor 5. Ventilator dependent respiratory failure -Ventilator management and pulmonary toilet 6. Renal insufficiency -Judicious fluid management -Avoid nephrotoxic agents 7. Coronary artery disease and history of non-ST elevation NE -Cardiac optimization Thank you Problems: Subjective 24 Hr Interval Summary Tachycardia. Fever. Leukocytosis. No chills. No cough. No seizure. No rash. No blood rectum. No bloating. No seizures. No pyuria. Exam/Review of Systems Vital Signs Vitals Vital Signs Date Time Temp Pulse Resp B/P Pulse Ox O2 Delivery O2 Flow Rate FiO2 10/21/16 17:05 124 23 97 30 10/21/16 15:41 102.9 99/53 10/19/16 21:00 Mechanical Ventilator Intake and Output 10/20/16 10/20/16 10/21/16 15:00 23:00 07:00 Intake Total 400 ml 600 ml 740 ml Output Total 1300 ml 900 ml Balance 400 ml -700 ml -160 ml Exam Free Text/Dictation Constitutional: No alert, No oriented Psych: No nl mood/affect Head: atraumatic, normocephalic Eyes: nl conjunctiva, No EOMI, No icteric ENMT: mucosa pink and moist, nl external ears & nose Neck: jvd, other (Trach in place), No non-tender, No supple Respiratory: No congested cough, No labored breathing Cardiovascular: No regular rate and rhythm Gastrointestinal: non-tender, other (PEG in place), soft, No rebound or guarding Musculoskeletal: No joint tenderness, No nl extremities to inspection, No nl gait and stance Extremities: No calf tenderness, No cyanosis Neurological: No nl mental status, No nl speech, No nl strength Skin: rash or lesions (Multiple decubitus ulcerations with debris, necrotic tissue, deep tissue injury), No diaphoresis, No nl turgor Lymph: nontender Results Result Diagram: 10/21/16 0536 10/21/16 0536 EVA GUARDADO MD Oct 21, 2016 20:18
[2016-10-21] MEDS: ACETAMINOPHEN 650MG/20.3ML CUP GTB PRN (22:51)
[2016-10-22] VITALS (27 sets, daily range): BP systolic 86–121; BP diastolic 50–70; PULSE 106–163; RESP 17–24
--- NOTE | 2016-10-22 00:34 | PN ---
DATE: 10/21/2016 SUBJECTIVE: Penoscrotal edema and contractures, especially of the lower extremities. The patient i s not capable of expressing any complaint. OBJECTIVE: VITAL SIGNS: Temperature is 102.4, pulse is 125, respirations 19, blood pressure 97/47. GENITOURINARY: The Cee catheter that he has is draining clear urine. The penis and the scrotum a re swollen and erythematous, but the edema and swelling is stable. Has not increased, neither has i t decreased since I saw him yesterday. LABORATORY DATA: His CBC shows a white count of 11.6, hemoglobin 8.3, hematocrit 28.0, platelet cou nt is 36,000. Three days ago it was 219,000. BUN is 20, creatinine 0.83. Electrolytes are normal. IMPRESSION: From a urological standpoint, the patient's scrotal edema and penile edema are stable. RECOMMENDATION: To continue to elevate the scrotum on a towel all the time and separate the knees w ith a pillow case and keep the Cee catheter in place. Dictated By: MISHEL WOODWARD/ELIZABETH Conf#: [id number] DID#: [id number] CC: FELIX BLAKE MD;*End*
[2016-10-22] MEDS: IPRATROPIUM (HFA) 12.9 GM INHALER INH SCH ×4 (01:46→19:43)
[2016-10-22] MEDS: ALBUTEROL HFA 8 GM INHALER INH SCH ×4 (01:47→19:43)
[2016-10-22] MEDS ORDERED: DIPHENHYDRAMINE 50 MG INJ ONE (05:26)
[2016-10-22] MEDS ORDERED: LORAZEPAM 2 MG INJ ONE (05:40)
[2016-10-22] MEDS: DILTIAZEM-D5W 125MG/125ML DRIP 125 ML IV SCH (05:51)
[2016-10-22] MEDS ORDERED: DILTIAZEM-D5W 125MG/125ML DRIP 125 ML ONE (05:51)
--- NOTE | 2016-10-22 06:06 | EN ---
Date/Time of Note Date/Time of Note DATE: 10/22/16 TIME: 06:06 Event Note Medicine Medicine Event Note RAPID RESPONSE: An AUTOMATIC BOW MAKER MACHINE TENDER was called at 0513. Patient had a sustained heart rate of 165-1 80 bpm. He is a DNR. I admitted him several weeks ago with respiratory failure. He is a trach patient on a ventilator. When I arrived he appeared pale, contracted had obvious upper extremity edema and his heart rate was tachycardia on the monitor. Unfortunately, all the computers are down for maintenance today between 5 AM and 6 AM, so I do not have a list of his medications or his weight or his history except for what the nurse remembers. I first gave him carotid massage without any effect. Then, I gave him 12.5 mg of Cardizem IV and his heart rate did not change either. In short order, I gave him the other 12.5 mg of Cardizem. At this point, his heart rate slowed to 156 bpm and his eyes opened , and this was at approximately 5:20 AM. His blood pressure was 106/44. Then, his right arm which had the blood pressure cuff as well as the IV in the back of his hand turned dark blotchy and blanching red. I ordered 50 mg of Benadryl IV and it was given at 5:28 AM. There was slow and steady improvement in the coloration of his right forearm and by approximately 5:35 AM, his arm was almost completely back to normal. The lowest his heart rate got after the 25 mg of diltiazem IV was 135 bpm. At 5:30 3 in the morning, his blood pressure was 99/36 but pulse from 143-160 and his EKG showed RVR at a rate of 150 bpm he was saturating 100% on the ventilator. He seemed to be more awake, more restless. I gave him Ativan 1 mg, but in 2 doses 0.5 mg at 542 and at 5:50 AM without significant change in his heart rate. His blood pressure remained low at 95/66 oxygen saturation 99-100 per percent. At this point, patient's son, Peter, was contacted and updated. He was fine in the treatment that we had given him and was interested that his father received Cardizem drip we discussed, and if necessary, he agreed that he should be cardioverted. At 5:55 AM the Cardizem drip was started and the aquatic life laborer was here to draw patient's blood. At 618 patient's systolic blood pressure was only 86 and I gave him 500 mL bolus of normal saline and had him placed in Trendelenburg position. I did not feel that patient needed to be transferred into the intensive care at this time. And while I was at the nurses station documenting, patient's heart rate spontaneously converted back to his baseline sinus tach at 119 bpm at 6:27 AM. Critical care: Just over 70 minutes of critical care time were spent in assessing, treating and coordinating this patient's care. FELIX BLAKE DO Oct 22, 2016 06:06
[2016-10-22] MEDS: LANSOPRAZOLE 30 MG CAP GTB SCH ×2 (06:07→18:57)
[2016-10-22] MEDS: LEVOTHYROXINE 100 MCG VIAL IV SCH (06:07)
[2016-10-22] MEDS: METOCLOPRAMIDE 10 MG INJ IV SCH ×3 (06:07→22:33)
[2016-10-22] MEDS: metroNIDAZOLE 500 MG/NS (PMX) 100 ML IVPB SCH ×3 (06:08→21:31)
[2016-10-22 06:34] LABS: ADD SCAN DIFF NO
[2016-10-22] MEDS ORDERED: SOD CHLORIDE 0.9% 500 ML IV ONE (07:00)
[2016-10-22] MEDS ORDERED: DILTIAZEM 25 MG INJ IV ONE (07:00)
[2016-10-22] MEDS ORDERED: DIPHENHYDRAMINE 50 MG INJ IV ONE (07:00)
[2016-10-22] MEDS ORDERED: LORAZEPAM 2 MG INJ IV ONE (07:00)
[2016-10-22 07:02] LABS: POTASSIUM 4.7 mmol/L (3.5-5.1)
[2016-10-22 07:05] LABS: CREATININE 0.92 mg/dl (0.61-1.24)
[2016-10-22 07:06] LABS: ABNORMAL IP MESSAGE 1; HEMATOCRIT 32.6 % (42.0-52.0); HEMOGLOBIN 9.9 g/dl (14.0-18.0); MEAN CORPUSCULAR HEMOGLOBIN 26.5 pg (29.0-33.0); MEAN CORPUSCULAR HGB CONC 30.4 g/dl (32.0-37.0); MEAN CORPUSCULAR VOLUME 87.2 fl (82.0-101.0); RED BLOOD COUNT 3.74 10^6/ul (4.70-6.10); RED CELL DISTRIBUTION WIDTH 18.5 % (11.5-14.5)
[2016-10-22 07:06] LABS: CALCIUM 7.6 mg/dl (8.4-10.2)
[2016-10-22] MEDS: COLISTIMETHATE 75 MG in SOD CHLORIDE 0.9% 100 ML IVPB SCH (09:00)
[2016-10-22] MEDS: COLLAGENASE 30 GM TUBE TOP SCH (09:00)
[2016-10-22] MEDS: SODIUM HYPOCHLORITE 0.125% 473 ML BTL IRR SCH ×2 (09:38→22:34)
[2016-10-22] MEDS: ARTIFICIAL TEARS 15 ML OPH BOTH EYES SCH ×3 (09:38→22:34)
[2016-10-22] MEDS: VORICONAZOLE 200 MG TAB PO SCH ×2 (09:39→22:33)
--- NOTE | 2016-10-22 09:41 | CONS ---
Date/Time of Note Date/Time of Note DATE: 10/22/16 TIME: 09:39 Assessment/Plan Assessment/Plan Additional Assessment/Plan 1. Acute kidney injury on chronic kidney disease. due to ATN from septic shock 2. septic shock on levophed 3. severe metabolic acidosis on bicarbonate drip 5. History of chronic respiratory failure, status post tracheostomy, on ventilator. 6. History of G-tube. 7. Poor mental status due to the previous cerebrovascular accident. 8. History of dementia. 9. History of hypertension. 10. Hypocalcemia with Ca 6.9- likely pseudohypocalcemia, because corrected Ca with Serum albumin of 1.6 is 8.8-no symptoms of hypocalcemia PLAN: on Tube feeding, WBC bumped to 18- Hb 9.9 Bp stable,Cr stable On IV Coly-mycin and IV zyvox, need to monitor renal function and K will follow up Consultation Date/Type/Reason Admit Date/Time Sep 24, 2016 at 03:19 Initial Consult Date 09/24/16 Type of Consultation: NEPHROLOGY Referring Provider: FELIX BLAKE DO 24 HR Interval Summary Free Text/Dictation WBC bumped, Hb stable, electrolytes and Cr stable, good urine output, Scrotal edema stable, Urology following Exam/Review of Systems Vital Signs Vitals Vital Signs Date Time Temp Pulse Resp B/P Pulse Ox O2 Delivery O2 Flow Rate FiO2 10/22/16 08:29 115 10/22/16 08:01 99.1 17 86/52 96 10/22/16 07:30 30 10/19/16 21:00 Mechanical Ventilator Intake and Output 10/21/16 10/21/16 10/22/16 15:00 23:00 07:00 Intake Total 400 ml 500 ml 1100 ml Output Total 680 ml 670 ml Balance 400 ml -180 ml 430 ml Exam GENERAL: Chronically ill-appearing, elderly man who is in no distress. HEENT: Head atraumatic, normocephalic. Sclerae anicteric. Buccal mucosa dry. NECK: Supple. Tracheostomy present. CHEST: bilateral Clear BS, no wheezing HEART: S1, S2. ABDOMEN: Obese, soft, bowel tones present. EXTREMITIES: No cyanosis. Bilateral edema., +scrotal edema stable SKIN: With multiple unstageable decubitus. Results Result Diagram: 10/22/16 0600 10/22/16 0600 Results 24 hrs Laboratory Tests Test 10/22/16 06:00 White Blood Count 18.0 #H Red Blood Count 3.74 L Hemoglobin 9.9 L Hematocrit 32.6 L Mean Corpuscular Volume 87.2 Mean Corpuscular Hemoglobin 26.5 L Mean Corpuscular Hemoglobin Concent 30.4 L Red Cell Distribution Width 18.5 H Platelet Count 27 #*L Mean Platelet Volume Sodium Level 137 Potassium Level 4.7 Chloride Level 109 Carbon Dioxide Level 19 L Anion Gap 14 Blood Urea Nitrogen 22 H Creatinine 0.92 Glucose Level 83 Calcium Level 7.6 L Medications Medications Current Medications Acetaminophen (Tylenol Supp) 650 mg Q4H PRN [place] PAIN LEVEL 1-3 OR FEVER; Start 09/24/16 at 03:00 Eye Lubricant (Artificial Tears Oph) 1 drop TID BOTH EYES Last administered on 10/21/16 19:51; Admin Dose 1 DROP; Start 09/24/16 at 09:00 Sodium Hypochlorite (Dakin'S (1/4 Strength)) 1 applic BID IRR Last administered on 10/21/16 20:51; Admin Dose 1 APPLIC; Start 09/24/16 at 21:00 Collagenase (Santyl) 1 applic DAILY TOP Last administered on 10/20/16 01:00; Admin Dose 1 APPLIC; Start 09/24/16 at 20:30 Miscellaneous Information 1 ea NOTE XX ; Start 09/24/16 at 21:00 Glucose (Glutose) 15 gm Q15M PRN PO DECREASED GLUCOSE; Start 09/24/16 at 21:00 Glucose (Glutose) 22.5 gm Q15M PRN PO DECREASED GLUCOSE; Start 09/24/16 at 21: 00 Dextrose (D50w Syringe) 25 ml Q15M PRN IV DECREASED GLUCOSE; Start 09/24/16 at 21:00 Dextrose (D50w Syringe) 50 ml Q15M PRN IV DECREASED GLUCOSE; Start 09/24/16 at 21:00 Glucagon (Glucagen) 1 mg Q15M PRN IM DECREASED GLUCOSE; Start 09/24/16 at 21:00 Glucose 15 gm 15 gm Q15M PRN BUCCAL DECREASED GLUCOSE; Start 09/24/16 at 21:00 Acetaminophen (Ofirmev 1000mg/ 100ml Iv) 100 ml @ 400 mls/hr Q6H PRN IVPB FEVER Last administered on 10/07/16 17:14; Admin Dose 400 MLS/HR; Start at 22:00 Vancomycin HCl (Vancomycin Oral Syringe) 250 mg Q6 PO Last administered on 17:15; Admin Dose 250 MG; Start 09/26/16 at 18:00; Status Future Hold Lactobacillus Acidoph/Bulgaricus (Floranex) 1 tab TID PO Last administered on 13:22; Admin Dose 1 TAB; Start 09/26/16 at 21:00; Status Future Hold Atorvastatin Calcium (Lipitor) 20 mg QHS GTB Last administered on 10/05/16 21: 42; Admin Dose 20 MG; Start 09/28/16 at 21:00; Status Future Hold Finasteride (Proscar) 5 mg DAILY GTB Last administered on 10/06/16 09:12; Admin Dose 5 MG; Start 09/29/16 at 09:00; Status Future Hold Multivitamins Therapeutic (Theragran) 1 tab DAILY GTB Last administered on 09:12; Admin Dose 1 TAB; Start 09/29/16 at 09:00; Status Future Hold Zinc Sulfate (Zinc Sulfate) 220 mg DAILY NGT Last administered on 10/06/16 09: 13; Admin Dose 220 MG; Start 09/29/16 at 09:00; Status Future Hold Ondansetron HCl (Zofran Inj) 4 mg Q6H PRN IV NAUSEA AND/OR VOMITING Last administered on 10/13/16 16:10; Admin Dose 4 MG; Start 09/29/16 at 07:30 Acetaminophen 650 mg 650 mg Q6H PRN GTB PAIN AND OR ELEVATED TEMP Last administered on 10/21/16 22:51; Admin Dose 650 MG; Start 10/02/16 at 08:00 Metronidazole (Flagyl 500 Mg (Pmx)) 100 ml @ 100 mls/hr Q8 IVPB Last administered on 10/22/16 06:08; Admin Dose 100 MLS/HR; Start 10/02/16 at 14:00 Midodrine 10 mg 10 mg TID@,,17 PO Last administered on 10/06/16 17:15; Admin Dose 10 MG; Start 10/06/16 at 01:00; Status Future Hold Linezolid (Zyvox 600mg/D5W (Pmx)) 300 ml @ 300 mls/hr Q12 IVPB Last administered on 10/21/16 20:51; Admin Dose 300 MLS/HR; Start 10/06/16 at 21:00 Levothyroxine Sodium (Synthroid Iv) 12.5 mcg DAILY@06 IV Last administered on 06:07; Admin Dose 12.5 MCG; Start 10/07/16 at 06:00 Metoclopramide HCl (Reglan) 5 mg Q8 IV Last administered on 10/22/16 06:07; Admin Dose 5 MG; Start 10/06/16 at 22:00 Voriconazole 200 mg 200 mg BID PO Last administered on 10/21/16 20:51; Admin Dose 200 MG; Start 10/08/16 at 21:00 Colistimethate Sodium/Sodium Chloride (Coly-Mycin/NS) 100 ml @ 200 mls/hr Q12 IVPB Last administered on 10/21/16 19:52; Admin Dose 200 MLS/HR; Start at 13:30 Lansoprazole 30 mg 30 mg BID@06,18 GTB Last administered on 10/22/16 06:07; Admin Dose 30 MG; Start 10/21/16 at 18:00 Diltiazem HCl 125 ml @ 5 mls/hr TITRATE IV Last administered on 10/22/16 05:51 ; Admin Dose 5 MLS/HR; Start 10/22/16 at 07:00 Albumin Human 250 ml @ 250 mls/hr Q1H IV ; Start 10/22/16 at 09:30; Stop at 11:29; Status UNV MAGGIE DINEOR MD Oct 22, 2016 09:41
[2016-10-22] MEDS: ALBUMIN HUMAN 5% 250 ML IV SCH ×2 (10:30→11:30)
--- NOTE | 2016-10-22 10:45 | CONS ---
Date/Time of Note Date/Time of Note DATE: 10/22/16 TIME: 10:42 Assessment/Plan Assessment/Plan Additional Assessment/Plan Ventilator settings; AC of 14, tidal volume 500, PEEP of 5, 30% FiO2. Assessment recommendations; 1. Patient admitted for sepsis from severe decubitus ulcers. 2. Chronic respiratory failure. 3. Anemia. 4. Worsening thrombocytopenia. Patient currently not on any medication that would induce that. 5. Hypothyroidism. Continue current supportive care. Prognosis is very poor. Monitor platelet count. Consultation Date/Type/Reason Admit Date/Time Sep 24, 2016 at 03:19 Initial Consult Date 09/24/16 Type of Consultation: Pulmonary Referring Provider: FELIX BLAKE DO 24 HR Interval Summary Free Text/Dictation Patient condition remains stable. Has remained hemodynamically stable. Patient remains unresponsive. General exam; elderly male, on ventilator via tracheostomy currently in no distress. Exam/Review of Systems Vital Signs Vitals Vital Signs Date Time Temp Pulse Resp B/P Pulse Ox O2 Delivery O2 Flow Rate FiO2 10/22/16 09:15 106 19 99 30 10/22/16 08:01 99.1 86/52 10/19/16 21:00 Mechanical Ventilator Intake and Output 10/21/16 10/21/16 10/22/16 15:00 23:00 07:00 Intake Total 400 ml 500 ml 1100 ml Output Total 680 ml 670 ml Balance 400 ml -180 ml 430 ml Exam HEENT exam is; supple neck, tracheostomy in place with clean insertion site. Pupils are small bilaterally. No neck masses. No thyromegaly. Chest examination TN: Diminished but clear breath sounds. S1-S2 audible, no murmurs. Regular rhythm. Abdomen examination; soft, nondistended. No organomegaly. G-tube in place. Extremity exam is; no peripheral edema. Patient has contractures involving all 4 extremities. 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 Results Result Diagram: 10/22/16 0600 10/22/16 0600 Results 24 hrs Laboratory Tests Test 10/22/16 06:00 White Blood Count 18.0 #H Red Blood Count 3.74 L Hemoglobin 9.9 L Hematocrit 32.6 L Mean Corpuscular Volume 87.2 Mean Corpuscular Hemoglobin 26.5 L Mean Corpuscular Hemoglobin Concent 30.4 L Red Cell Distribution Width 18.5 H Platelet Count 27 #*L Mean Platelet Volume Sodium Level 137 Potassium Level 4.7 Chloride Level 109 Carbon Dioxide Level 19 L Anion Gap 14 Blood Urea Nitrogen 22 H Creatinine 0.92 Glucose Level 83 Calcium Level 7.6 L Medications Medications Current Medications Acetaminophen (Tylenol Supp) 650 mg Q4H PRN [place] PAIN LEVEL 1-3 OR FEVER; Start 09/24/16 at 03:00 Eye Lubricant (Artificial Tears Oph) 1 drop TID BOTH EYES Last administered on 10/22/16 09:38; Admin Dose 1 DROP; Start 09/24/16 at 09:00 Sodium Hypochlorite (Dakin'S (1/4 Strength)) 1 applic BID IRR Last administered on 10/22/16 09:38; Admin Dose 1 APPLIC; Start 09/24/16 at 21:00 Collagenase (Santyl) 1 applic DAILY TOP Last administered on 10/22/16 09:00; Admin Dose 1 APPLIC; Start 09/24/16 at 20:30 Miscellaneous Information 1 ea NOTE XX ; Start 09/24/16 at 21:00 Glucose (Glutose) 15 gm Q15M PRN PO DECREASED GLUCOSE; Start 09/24/16 at 21:00 Glucose (Glutose) 22.5 gm Q15M PRN PO DECREASED GLUCOSE; Start 09/24/16 at 21: 00 Dextrose (D50w Syringe) 25 ml Q15M PRN IV DECREASED GLUCOSE; Start 09/24/16 at 21:00 Dextrose (D50w Syringe) 50 ml Q15M PRN IV DECREASED GLUCOSE; Start 09/24/16 at 21:00 Glucagon (Glucagen) 1 mg Q15M PRN IM DECREASED GLUCOSE; Start 09/24/16 at 21:00 Glucose 15 gm 15 gm Q15M PRN BUCCAL DECREASED GLUCOSE; Start 09/24/16 at 21:00 Acetaminophen (Ofirmev 1000mg/ 100ml Iv) 100 ml @ 400 mls/hr Q6H PRN IVPB FEVER Last administered on 10/07/16 17:14; Admin Dose 400 MLS/HR; Start at 22:00 Vancomycin HCl (Vancomycin Oral Syringe) 250 mg Q6 PO Last administered on 17:15; Admin Dose 250 MG; Start 09/26/16 at 18:00; Status Future Hold Lactobacillus Acidoph/Bulgaricus (Floranex) 1 tab TID PO Last administered on 13:22; Admin Dose 1 TAB; Start 09/26/16 at 21:00; Status Future Hold Atorvastatin Calcium (Lipitor) 20 mg QHS GTB Last administered on 10/05/16 21: 42; Admin Dose 20 MG; Start 09/28/16 at 21:00; Status Future Hold Finasteride (Proscar) 5 mg DAILY GTB Last administered on 10/06/16 09:12; Admin Dose 5 MG; Start 09/29/16 at 09:00; Status Future Hold Multivitamins Therapeutic (Theragran) 1 tab DAILY GTB Last administered on 09:12; Admin Dose 1 TAB; Start 09/29/16 at 09:00; Status Future Hold Zinc Sulfate (Zinc Sulfate) 220 mg DAILY NGT Last administered on 10/06/16 09: 13; Admin Dose 220 MG; Start 09/29/16 at 09:00; Status Future Hold Ondansetron HCl (Zofran Inj) 4 mg Q6H PRN IV NAUSEA AND/OR VOMITING Last administered on 10/13/16 16:10; Admin Dose 4 MG; Start 09/29/16 at 07:30 Acetaminophen 650 mg 650 mg Q6H PRN GTB PAIN AND OR ELEVATED TEMP Last administered on 10/21/16 22:51; Admin Dose 650 MG; Start 10/02/16 at 08:00 Metronidazole (Flagyl 500 Mg (Pmx)) 100 ml @ 100 mls/hr Q8 IVPB Last administered on 10/22/16 06:08; Admin Dose 100 MLS/HR; Start 10/02/16 at 14:00 Midodrine 10 mg 10 mg TID@,,17 PO Last administered on 10/06/16 17:15; Admin Dose 10 MG; Start 10/06/16 at 01:00; Status Future Hold Linezolid (Zyvox 600mg/D5W (Pmx)) 300 ml @ 300 mls/hr Q12 IVPB Last administered on 10/21/16 20:51; Admin Dose 300 MLS/HR; Start 10/06/16 at 21:00 Levothyroxine Sodium (Synthroid Iv) 12.5 mcg DAILY@06 IV Last administered on 06:07; Admin Dose 12.5 MCG; Start 10/07/16 at 06:00 Metoclopramide HCl (Reglan) 5 mg Q8 IV Last administered on 10/22/16 06:07; Admin Dose 5 MG; Start 10/06/16 at 22:00 Voriconazole 200 mg 200 mg BID PO Last administered on 10/22/16 09:39; Admin Dose 200 MG; Start 10/08/16 at 21:00 Colistimethate Sodium/Sodium Chloride (Coly-Mycin/NS) 100 ml @ 200 mls/hr Q12 IVPB Last administered on 10/21/16 19:52; Admin Dose 200 MLS/HR; Start at 13:30 Lansoprazole 30 mg 30 mg BID@06,18 GTB Last administered on 10/22/16 06:07; Admin Dose 30 MG; Start 10/21/16 at 18:00 Diltiazem HCl 125 ml @ 5 mls/hr TITRATE IV Last administered on 10/22/16 05:51 ; Admin Dose 5 MLS/HR; Start 10/22/16 at 07:00 Albumin Human 250 ml @ 250 mls/hr Q1H IV ; Start 10/22/16 at 10:30; Stop at 12:29 MAIN SALTER Oct 22, 2016 10:45
[2016-10-22] MEDS ORDERED: LIDOCAINE 1% (MPF) 5 ML VIAL SC ONE ×2 (11:30→13:00)
--- NOTE | 2016-10-22 13:21 | PN ---
Date/Time of Note Date/Time of Note DATE: 10/22/16 TIME: 13:15 Assessment/Plan Lines/Catheters IV Catheter Type (from [facility]): Peripheral IV Cee in Place (from [facility]): Yes Assessment/Plan Chief Complaint/Hosp Course 1. Shock, septic (uti, pna, wound). -Judicious fluid management -Supportive measures -Antibiotics 2. Multiple decubitus ulcerations with necrotic tissue and deep tissue injury -Offload -Local care -Vitamin C -Eventual nutritional optimization -Debridement when medically cleared 3. Contracted state with functional quadriplegia -Offloading -Nutritional optimization when possible 4. Anemia -Monitor 5. Ventilator dependent respiratory failure -Ventilator management and pulmonary toilet 6. Renal insufficiency -Judicious fluid management -Avoid nephrotoxic agents 7. Coronary artery disease and history of non-ST elevation [place] -Cardiac optimization 8. Thrombocytopenia -medical optimization Thank you Problems: Subjective 24 Hr Interval Summary Tachycardia. Fever. Leukocytosis. No chills. No cough. No seizure. No rash. No blood rectum. No bloating. No seizures. No pyuria. Exam/Review of Systems Vital Signs Vitals Vital Signs Date Time Temp Pulse Resp B/P Pulse Ox O2 Delivery O2 Flow Rate FiO2 10/22/16 12:16 106 10/22/16 11:20 17 97 30 10/22/16 11:19 98.4 87/55 10/19/16 21:00 Mechanical Ventilator Intake and Output 10/21/16 10/21/16 10/22/16 15:00 23:00 07:00 Intake Total 400 ml 500 ml 1100 ml Output Total 680 ml 670 ml Balance 400 ml -180 ml 430 ml Exam Free Text/Dictation Constitutional: No alert, No oriented Psych: No nl mood/affect Head: atraumatic, normocephalic Eyes: nl conjunctiva, No EOMI, No icteric ENMT: mucosa pink and moist, nl external ears & nose Neck: jvd, other (Trach in place), No non-tender, No supple Respiratory: No congested cough, No labored breathing Cardiovascular: No regular rate and rhythm Gastrointestinal: non-tender, other (PEG in place), soft, No rebound or guarding Musculoskeletal: No joint tenderness, No nl extremities to inspection, No nl gait and stance Extremities: No calf tenderness, No cyanosis Neurological: No nl mental status, No nl speech, No nl strength Skin: rash or lesions (Multiple decubitus ulcerations with debris, necrotic tissue, deep tissue injury), No diaphoresis, No nl turgor Lymph: nontender Results Result Diagram: 10/22/16 1120 10/22/16 0600 EVA GUARDADO MD Oct 22, 2016 13:21
--- NOTE | 2016-10-22 13:32 | PN ---
Date/Time of Note Date/Time of Note DATE: 10/22/16 TIME: 13:26 Assessment/Plan VTE Prophylaxis VTE Prophylaxis Intervention: SCD's Lines/Catheters IV Catheter Type (from Nrsg): Peripheral IV Urinary Cath still in place: Yes Reason Cath still needed: other (indicate) (monitor I&O) Assessment/Plan Chief Complaint/Hosp Course assessment and plan 1. Sepsis secondary to infected sacral decubitus ulcers with multiple organisms including Klebsiella pneumonia, Acinetobacter baumannii, VRE, staph aureus. ID following. Continue antibiotics. monitor for hypotension 2. Sacral decubitus ulcer with infection. Continue with wound care. Continue with analgesics as needed. on abx. 3. Acute renal insufficiency. Stable at present. Avoid nephrotoxic medications.continue with nephrology recs. 4. Chronic respiratory failure. Middleware Solutions Architect on the case. Continue bronchodilators and pulmonary hygiene. stable 5. 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 On antibiotics. Continuing wound care. surgeon following. stable 6. Encephalopathy (chronic). Continue to turn every 2 hours as needed. Continue with aspiration precautions 7. Hypothyroidism. Continue on Synthroid 8. Dysphagia. Continue aspiration precautions. 9. Anemia of chronic disease. Continue to monitor H&H. Transfuse as needed 10. Leukocytosis with thrombocytosis. Oncologist/geology technician following. Continued recommendations 11. Ileus. resolved. monitor 12. thrombocytopenia. worse. follow up with hematology recs Disposition and plan: prognosis poor. fluid bolus prn for hypotension. f/u hematology recs for thrombocytopenia Discussed plan of care with Dr. Chang Problems: Subjective 24 Hr Interval Summary Free Text/Dictation comfortable at present. no real change. reportedly hypotensive last night Exam/Review of Systems Vital Signs Vitals Vital Signs Date Time Temp Pulse Resp B/P Pulse Ox O2 Delivery O2 Flow Rate FiO2 10/22/16 12:16 106 10/22/16 11:20 17 97 30 10/22/16 11:19 98.4 87/55 10/19/16 21:00 Mechanical Ventilator Intake and Output 10/21/16 10/21/16 10/22/16 14:59 22:59 06:59 Intake Total 400 ml 500 ml 1100 ml Output Total 680 ml 670 ml Balance 400 ml -180 ml 430 ml Exam General: On mechanical ventilation. comfortable at present, no real change Eyes: equal round, still can track Neck: Tracheostomy in place. Cardiac: heart murmur, tachycardic Pulmonary: On mechanical ventilation. coarse GI: PEG tube in place. Extremities: Edema noted bilateral lower extremities as well as upper extremities still, unchanged Skin: decubitus ulcers Neurologic: Alert. No purposeful response Results Result Diagram: 10/22/16 1120 10/22/16 0600 Results 24 hrs Laboratory Tests Test 10/22/16 06:00 10/22/16 11:20 Sodium Level 137 Potassium Level 4.7 Chloride Level 109 Carbon Dioxide Level 19 L Anion Gap 14 Blood Urea Nitrogen 22 H Creatinine 0.92 Glucose Level 83 Calcium Level 7.6 L White Blood Count 18.0 #H Red Blood Count 3.74 L Hemoglobin 9.9 L Hematocrit 32.6 L Mean Corpuscular Volume 87.2 Mean Corpuscular Hemoglobin 26.5 L Mean Corpuscular Hemoglobin Concent 30.4 L Red Cell Distribution Width 18.5 H Platelet Count 27 #*L Mean Platelet Volume Medications Medications Current Medications Acetaminophen (Tylenol Supp) [address] PAIN LEVEL 1-3 OR FEVER; Start 09/24/16 at 03:00 Eye Lubricant (Artificial Tears Oph) 1 drop TID BOTH EYES Last administered on 10/22/16 09:38; Admin Dose 1 DROP; Start 09/24/16 at 09:00 Sodium Hypochlorite (Dakin'S (1/4 Strength)) 1 applic BID IRR Last administered on 10/22/16 09:38; Admin Dose 1 APPLIC; Start 09/24/16 at 21:00 Collagenase (Santyl) 1 applic DAILY TOP Last administered on 10/22/16 09:00; Admin Dose 1 APPLIC; Start 09/24/16 at 20:30 Miscellaneous Information 1 ea NOTE XX ; Start 09/24/16 at 21:00 Glucose (Glutose) 15 gm Q15M PRN PO DECREASED GLUCOSE; Start 09/24/16 at 21:00 Glucose (Glutose) 22.5 gm Q15M PRN PO DECREASED GLUCOSE; Start 09/24/16 at 21: 00 Dextrose (D50w Syringe) 25 ml Q15M PRN IV DECREASED GLUCOSE; Start 09/24/16 at 21:00 Dextrose (D50w Syringe) 50 ml Q15M PRN IV DECREASED GLUCOSE; Start 09/24/16 at 21:00 Glucagon (Glucagen) 1 mg Q15M PRN IM DECREASED GLUCOSE; Start 09/24/16 at 21:00 Glucose 15 gm 15 gm Q15M PRN BUCCAL DECREASED GLUCOSE; Start 09/24/16 at 21:00 Acetaminophen (Ofirmev 1000mg/ 100ml Iv) 100 ml @ 400 mls/hr Q6H PRN IVPB FEVER Last administered on 10/07/16 17:14; Admin Dose 400 MLS/HR; Start at 22:00 Vancomycin HCl (Vancomycin Oral Syringe) 250 mg Q6 PO Last administered on 17:15; Admin Dose 250 MG; Start 09/26/16 at 18:00; Status Future Hold Lactobacillus Acidoph/Bulgaricus (Floranex) 1 tab TID PO Last administered on 13:22; Admin Dose 1 TAB; Start 09/26/16 at 21:00; Status Future Hold Atorvastatin Calcium (Lipitor) 20 mg QHS GTB Last administered on 10/05/16 21: 42; Admin Dose 20 MG; Start 09/28/16 at 21:00; Status Future Hold Finasteride (Proscar) 5 mg DAILY GTB Last administered on 10/06/16 09:12; Admin Dose 5 MG; Start 09/29/16 at 09:00; Status Future Hold Multivitamins Therapeutic (Theragran) 1 tab DAILY GTB Last administered on 09:12; Admin Dose 1 TAB; Start 09/29/16 at 09:00; Status Future Hold Zinc Sulfate (Zinc Sulfate) 220 mg DAILY NGT Last administered on 10/06/16 09: 13; Admin Dose 220 MG; Start 09/29/16 at 09:00; Status Future Hold Ondansetron HCl (Zofran Inj) 4 mg Q6H PRN IV NAUSEA AND/OR VOMITING Last administered on 10/13/16 16:10; Admin Dose 4 MG; Start 09/29/16 at 07:30 Acetaminophen 650 mg 650 mg Q6H PRN GTB PAIN AND OR ELEVATED TEMP Last administered on 10/21/16 22:51; Admin Dose 650 MG; Start 10/02/16 at 08:00 Metronidazole (Flagyl 500 Mg (Pmx)) 100 ml @ 100 mls/hr Q8 IVPB Last administered on 10/22/16 06:08; Admin Dose 100 MLS/HR; Start 10/02/16 at 14:00 Midodrine 10 mg 10 mg TID@ PO Last administered on 10/06/16 17:15; Admin Dose 10 MG; Start 10/06/16 at 01:00; Status Future Hold Linezolid (Zyvox 600mg/D5W (Pmx)) 300 ml @ 300 mls/hr Q12 IVPB Last administered on 10/21/16 20:51; Admin Dose 300 MLS/HR; Start 10/06/16 at 21:00 Levothyroxine Sodium (Synthroid Iv) 12.5 mcg DAILY@06 IV Last administered on 06:07; Admin Dose 12.5 MCG; Start 10/07/16 at 06:00 Metoclopramide HCl (Reglan) 5 mg Q8 IV Last administered on 10/22/16 06:07; Admin Dose 5 MG; Start 10/06/16 at 22:00 Voriconazole 200 mg 200 mg BID PO Last administered on 10/22/16 09:39; Admin Dose 200 MG; Start 10/08/16 at 21:00 Colistimethate Sodium/Sodium Chloride (Coly-Mycin/NS) 100 ml @ 200 mls/hr Q12 IVPB Last administered on 10/21/16 19:52; Admin Dose 200 MLS/HR; Start at 13:30 Lansoprazole 30 mg 30 mg BID@18 GTB Last administered on 10/22/16 06:07; Admin Dose 30 MG; Start 10/21/16 at 18:00 Diltiazem HCl (Cardizem-D5W 125 Mg/125 ml Drip) 125 ml @ 5 mls/hr TITRATE IV Last administered on 10/22/16 05:51; Admin Dose 5 MLS/HR; Start 10/22/16 at 07: 00 TAMMIE RIBERA Oct 22, 2016 13:32
[2016-10-22 14:10] LABS: BASOPHIL # 0.2 10^3/ul (0.0-0.1); EOSINOPHILS # 0.2 10^3/ul (0.0-0.5); LYMPHOCYTES # 4.7 10^3/ul (0.8-2.9); MONOCYTE # 0.5 10^3/ul (0.3-0.9); NEUTROPHIL # 12.4 10^3/ul (1.6-7.5); PLATELET ESTIMATE PLT APPEAR ADEQUATE; PLATELETS CLUMPS MANY
--- NOTE | 2016-10-22 15:00 | RADRPT ---
PROCEDURE: Ultrasound guidance for placement of needle in right upper extremity vein. CLINICAL INDICATION: Venous access. TECHNIQUE: Limited sonography of the right upper extremity was performed. Ultrasound images were recorded and stored in the patient's medical record. COMPARISON: None. FINDINGS: The ultrasound images demonstrate a patent right upper extremity vein. The PICC line was inserted b y the PICC line nurse. IMPRESSION: 1. Ultrasound guidance for a needle placement in a right upper extremity vein. 2. The visualized right upper extremity vein is patent. RPTAT: QQ .Ho Medeiros MD, MD Date Time Electronically viewed and signed by .Ho Medeiros MD, MD on 10/22/2016 15:00 .R/
[2016-10-22] MEDS ORDERED: SOD CHLORIDE 0.9% 100 ML ONE (15:09)
--- NOTE | 2016-10-22 15:24 | RADRPT ---
PROCEDURE: XR Chest. CLINICAL INDICATION: Check PICC line position. TECHNIQUE: Single frontal view. COMPARISON: 10/17/2016. FINDINGS: There is a right arm PICC line with the tip in the mid to lower superior vena cava. The tracheostom y tube remains in satisfactory position. The left subclavian vein catheter has been removed. There is pulmonary edema and low lung volumes, unchanged. There is a small right pleural effusion unchan ged and a moderate left pleural effusion, unchanged. The heart is enlarged. There is no pneumothorax. IMPRESSION: 1. Satisfactory position of right arm PICC line. 2. Left subclavian vein catheter removed. 3. No other change from 10/17/2016. RPTAT: QQ .Ho Medeiros MD, MD Date Time Electronically viewed and signed by .Ho Medeiros MD, on 10/22/2016 15:24 .R/
[2016-10-22] MEDS: LINEZOLID 600 MG/D5W (PMX) 300 ML IVPB SCH ×2 (16:28→22:33)
--- NOTE | 2016-10-22 18:01 | CONS ---
Date/Time of Note Date/Time of Note DATE: 10/22/16 TIME: 18:00 Assessment/Plan Assessment/Plan Chief Complaint/Hosp Course ANEMIA - NEAR- MICROCYTIC WITH INCREASED RDW DROP H/H DURING HOSPITALIZATION + ACD TRANSFUSE PRBC TO KEEP HB MORE THAN 8 TRANSFUSE NEEDED GI F-UP Stool OB, negative Monitor H&H, transfuse 2 units for hemoglobin less than 8 LEUKOCYTOSIS- REACTIVE CONT ATB FOR SEPSIS THROMBOCYTOSIS REACTIVE SHOULD IMPROVE WITH RESOLUTION OF SEPSIS Severe sepsis with septic shock 2/2 Decub ulcers and/or UTI and/or PNA: stable, off pressor support Severe hypernatremic dehydration Acute renal failure 2/2 ATN from dehydration UTI Multifocal pneumonia Encephalopathy ?acute versus acute on chronic (baseline unknown) Hypokalemia Problems: Consultation Date/Type/Reason Admit Date/Time Sep 24, 2016 at 03:19 Initial Consult Date 09/24/16 [facility] Consultation: [facility] Referring Provider: FELIX BLAKE DO 24 HR Interval Summary Free Text/Dictation ALL NOTED COUNT IMPROVING Exam/Review of Systems Vital Signs Vitals Vital Signs Date Time Temp Pulse Resp B/P Pulse Ox O2 Delivery O2 Flow Rate FiO2 10/22/16 17:00 109 19 100 30 10/22/16 15:10 98.1 88/50 10/19/16 21:00 Mechanical Ventilator Intake and Output 10/21/16 10/21/16 10/22/16 15:00 23:00 07:00 Intake Total 400 ml 500 ml 1100 ml Output Total 680 ml 670 ml Balance 400 ml -180 ml 430 ml Exam GENERAL: Elderly gentleman, continues mechanical ventilation. VITAL SIGNS: see below. HEENT: Pupils equal, round, and reactive to light. Tracheostomy site clean and intact. CARDIAC: S1, S2, CHEST: Diminished air entry bilaterally. ABDOMEN: Mildly distended. Bowel sounds present no guarding or rebound EXTREMITIES: No cyanosis, clubbing or edema. NEUROLOGIC: Unable to assess Results Result Diagram: 10/22/16 1120 10/22/16 0600 Results 24 hrs Laboratory Tests Test 10/22/16 06:00 10/22/16 11:20 Sodium Level 137 Potassium Level 4.7 Chloride Level 109 Carbon Dioxide Level 19 L Anion Gap 14 Blood Urea Nitrogen 22 H Creatinine 0.92 Glucose Level 83 Calcium Level 7.6 L White Blood Count 18.0 #H Red Blood Count 3.74 L Hemoglobin 9.9 L Hematocrit 32.6 L Mean Corpuscular Volume 87.2 Mean Corpuscular Hemoglobin 26.5 L Mean Corpuscular Hemoglobin Concent 30.4 L Red Cell Distribution Width 18.5 H Platelet Count 222 # Mean Platelet Volume 11.0 H Neutrophils % 69.0 Lymphocytes % 26.0 Monocytes % 3.0 Eosinophils % 1.0 Basophils % 1.0 Neutrophils # 12.4 H Lymphocytes # 4.7 H Monocytes # 0.5 Eosinophils # 0.2 Basophils # 0.2 H Platelet Estimate PLT APPEAR ADEQUATE Clumped Platelets MANY Medications Medications Current Medications Acetaminophen (Tylenol Supp) 650 mg Q4H PRN SC PAIN LEVEL 1-3 OR FEVER; Start 09/24/16 at 03:00 Eye Lubricant (Artificial Tears Oph) 1 drop TID BOTH EYES Last administered on 10/22/16 14:09; Admin Dose 1 DROP; Start 09/24/16 at 09:00 Sodium Hypochlorite (Dakin'S (1/4 Strength)) 1 applic BID IRR Last administered on 10/22/16 09:38; Admin Dose 1 APPLIC; Start 09/24/16 at 21:00 Collagenase (Santyl) 1 applic DAILY TOP Last administered on 10/22/16 09:00; Admin Dose 1 APPLIC; Start 09/24/16 at 20:30 Miscellaneous Information 1 ea NOTE XX ; Start 09/24/16 at 21:00 Glucose (Glutose) 15 gm Q15M PRN PO DECREASED GLUCOSE; Start 09/24/16 at 21:00 Glucose (Glutose) 22.5 gm Q15M PRN PO DECREASED GLUCOSE; Start 09/24/16 at 21: 00 Dextrose (D50w Syringe) 25 ml Q15M PRN IV DECREASED GLUCOSE; Start 09/24/16 at 21:00 Dextrose (D50w Syringe) 50 ml Q15M PRN IV DECREASED GLUCOSE; Start 09/24/16 at 21:00 Glucagon (Glucagen) 1 mg Q15M PRN IM DECREASED GLUCOSE; Start 09/24/16 at 21:00 Glucose 15 gm 15 gm Q15M PRN BUCCAL DECREASED GLUCOSE; Start 09/24/16 at 21:00 Acetaminophen (Ofirmev 1000mg/ 100ml Iv) 100 ml @ 400 mls/hr Q6H PRN IVPB FEVER Last administered on 10/07/16 17:14; Admin Dose 400 MLS/HR; Start at 22:00 Vancomycin HCl (Vancomycin Oral Syringe) 250 mg Q6 PO Last administered on 17:15; Admin Dose 250 MG; Start 09/26/16 at 18:00; Status Future Hold Lactobacillus Acidoph/Bulgaricus (Floranex) 1 tab TID PO Last administered on 13:22; Admin Dose 1 TAB; Start 09/26/16 at 21:00; Status Future Hold Atorvastatin Calcium (Lipitor) 20 mg QHS GTB Last administered on 10/05/16 21: 42; Admin Dose 20 MG; Start 09/28/16 at 21:00; Status Future Hold Finasteride (Proscar) 5 mg DAILY GTB Last administered on 10/06/16 09:12; Admin Dose 5 MG; Start 09/29/16 at 09:00; Status Future Hold Multivitamins Therapeutic (Theragran) 1 tab DAILY GTB Last administered on 09:12; Admin Dose 1 TAB; Start 09/29/16 at 09:00; Status Future Hold Zinc Sulfate (Zinc Sulfate) 220 mg DAILY NGT Last administered on 10/06/16 09: 13; Admin Dose 220 MG; Start 09/29/16 at 09:00; Status Future Hold Ondansetron HCl (Zofran Inj) 4 mg Q6H PRN IV NAUSEA AND/OR VOMITING Last administered on 10/13/16 16:10; Admin Dose 4 MG; Start 09/29/16 at 07:30 Acetaminophen 650 mg 650 mg Q6H PRN GTB PAIN AND OR ELEVATED TEMP Last administered on 10/21/16 22:51; Admin Dose 650 MG; Start 10/02/16 at 08:00 Metronidazole (Flagyl 500 Mg (Pmx)) 100 ml @ 100 mls/hr Q8 IVPB Last administered on 10/22/16 06:08; Admin Dose 100 MLS/HR; Start 10/02/16 at 14:00 Midodrine 10 mg 10 mg TID@,13,17 PO Last administered on 10/06/16 17:15; Admin Dose 10 MG; Start 10/06/16 at 01:00; Status Future Hold Linezolid (Zyvox 600mg/D5W (Pmx)) 300 ml @ 300 mls/hr Q12 IVPB Last administered on 10/22/16 16:28; Admin Dose 300 MLS/HR; Start 10/06/16 at 21:00 Levothyroxine Sodium (Synthroid Iv) 12.5 mcg DAILY@06 IV Last administered on 06:07; Admin Dose 12.5 MCG; Start 10/07/16 at 06:00 Metoclopramide HCl (Reglan) 5 mg Q8 IV Last administered on 10/22/16 14:08; Admin Dose 5 MG; Start 10/06/16 at 22:00 Voriconazole 200 mg 200 mg BID PO Last administered on 10/22/16 09:39; Admin Dose 200 MG; Start 10/08/16 at 21:00 Colistimethate Sodium/Sodium Chloride (Coly-Mycin/NS) 100 ml @ 200 mls/hr Q12 IVPB Last administered on 10/21/16 19:52; Admin Dose 200 MLS/HR; Start at 13:30 Lansoprazole 30 mg 30 mg BID@06,18 GTB Last administered on 10/22/16 06:07; Admin Dose 30 MG; Start 10/21/16 at 18:00 Diltiazem HCl (Cardizem-D5W 125 Mg/125 ml Drip) 125 ml @ 5 mls/hr TITRATE IV Last administered on 10/22/16 05:51; Admin Dose 5 MLS/HR; Start 10/22/16 at 07: 00 IV Flush (NS 10 ml) 10 ml PRN PRN IV IV PROTOCOL; Start 10/22/16 at 14:30 SCOTT RODRIGUES MD Oct 22, 2016 18:01
--- NOTE | 2016-10-22 18:27 | PN ---
DATE: 10/22/2016 SUBJECTIVE: The patient had a low blood pressure this morning, status post fluid bolus. He also spiked fever of 102.4 yesterday. Cultures are pending. He had a triple-lumen catheter discontinued and now with peripheral IV. WBC today 18, H and H 9.9 and 32.6, platelets 222, no shift, no bands. BUN 22, creatinine 0.92. ANTIMICROBIALS: The patient is on: 1. Zyvox. 2. IV Colistin. 3. Voriconazole. 4. Flagyl. INDWELLINGS: Trach, PEG, Cee, rectal tube. PHYSICAL EXAMINATION: GENERAL: Fragile elderly man who is noncommunicative and in no distress. HEENT: Head atraumatic, normocephalic. Sclerae anicteric. Buccal mucosa dry. NECK: Supple. Tracheostomy present. CHEST: Rise symmetrical. Breath sounds diminished to bases. HEART: S1, S2. ABDOMEN: Distended, soft. Bowel tones hypoactive. EXTREMITIES: Bilateral edema. SKIN: Multiple unstageable decubitus. ASSESSMENT: 1. Persistent sepsis. 2. 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 3. Status post urinary tract infection, pneumonia and bacteremia. 4. 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 5. Chronic encephalopathy and chronic respiratory failure. PLAN: The patient is covered with broad-spectrum antibiotics. Repeat blood cultures on 10/19 negative. A urine culture on 10/19 came back negative as well. We are going to repeat chest x-ray in a.m., await for central catheter tip culture. Continue local wound care. Follow recommendations of consultants. Prognosis guarded. Prognosis poor. The patient is DNR status. Dictated By: CHRISTOPHER MCDONOUGH [employer] for YAQUELIN ESTRELLA MD NI/NTS Conf#: [id number] DID#: [id number] MTDD
--- NOTE | 2016-10-22 22:54 | PN ---
Date/Time of Note Date/Time of Note DATE: 10/22/16 TIME: 22:53 Assessment/Plan VTE Prophylaxis VTE Prophylaxis Intervention: SCD's Lines/Catheters IV Catheter Type (from Nrsg): PICC Line Central line still needed: No Urinary Cath still in place: Yes Reason Cath still needed: urinary retention Assessment/Plan Chief Complaint/Hosp Course The patient with no cahgne Problems: Assessment/Plan Severe septic shock Preserved ejection fraction Moderate aortic stenosis Respiratory failure/Tracheostomy Coronary artery disease Anemia Acute kidney injury >resolved -Patient off IV pressors -antibiotics as per infectious disease -withhold any antihypertensives at the current time given recent sepsis -borderline low BP Subjective 24 Hr Interval Summary Free Text/Dictation the aptient with no cahgne Exam/Review of Systems Vital Signs Vitals Vital Signs Date Time Temp Pulse Resp B/P Pulse Ox O2 Delivery O2 Flow Rate FiO2 10/22/16 20:41 103 18 100 30 10/22/16 20:00 98.8 95/50 10/19/16 21:00 Mechanical Ventilator Intake and Output 10/21/16 10/21/16 10/22/16 14:59 22:59 06:59 Intake Total 400 ml 500 ml 1100 ml Output Total 680 ml 670 ml Balance 400 ml -180 ml 430 ml Results Result Diagram: 10/22/16 1120 10/22/16 0600 Results 24 hrs Laboratory Tests Test 10/22/16 06:00 10/22/16 11:20 Sodium Level 137 Potassium Level 4.7 Chloride Level 109 Carbon Dioxide Level 19 L Anion Gap 14 Blood Urea Nitrogen 22 H Creatinine 0.92 Glucose Level 83 Calcium Level 7.6 L White Blood Count 18.0 #H Red Blood Count 3.74 L Hemoglobin 9.9 L Hematocrit 32.6 L Mean Corpuscular Volume 87.2 Mean Corpuscular Hemoglobin 26.5 L Mean Corpuscular Hemoglobin Concent 30.4 L Red Cell Distribution Width 18.5 H Platelet Count 222 # Mean Platelet Volume 11.0 H Neutrophils % 69.0 Lymphocytes % 26.0 Monocytes % 3.0 Eosinophils % 1.0 Basophils % 1.0 Neutrophils # 12.4 H Lymphocytes # 4.7 H Monocytes # 0.5 Eosinophils # 0.2 Basophils # 0.2 H Platelet Estimate PLT APPEAR ADEQUATE Clumped Platelets MANY Medications Medications Current Medications Acetaminophen (Tylenol Supp) 650 mg Q4H PRN [place] PAIN LEVEL 1-3 OR FEVER; Start 09/24/16 at 03:00 Eye Lubricant (Artificial Tears Oph) 1 drop TID BOTH EYES Last administered on 10/22/16 22:34; Admin Dose 1 DROP; Start 09/24/16 at 09:00 Sodium Hypochlorite (Dakin'S (1/4 Strength)) 1 applic BID IRR Last administered on 10/22/16 22:34; Admin Dose 1 APPLIC; Start 09/24/16 at 21:00 Collagenase (Santyl) 1 applic DAILY TOP Last administered on 10/22/16 09:00; Admin Dose 1 APPLIC; Start 09/24/16 at 20:30 Miscellaneous Information 1 ea NOTE XX ; Start 09/24/16 at 21:00 Glucose (Glutose) 15 gm Q15M PRN PO DECREASED GLUCOSE; Start 09/24/16 at 21:00 Glucose (Glutose) 22.5 gm Q15M PRN PO DECREASED GLUCOSE; Start 09/24/16 at 21: 00 Dextrose (D50w Syringe) 25 ml Q15M PRN IV DECREASED GLUCOSE; Start 09/24/16 at 21:00 Dextrose (D50w Syringe) 50 ml Q15M PRN IV DECREASED GLUCOSE; Start 09/24/16 at 21:00 Glucagon (Glucagen) 1 mg Q15M PRN IM DECREASED GLUCOSE; Start 09/24/16 at 21:00 Glucose 15 gm 15 gm Q15M PRN BUCCAL DECREASED GLUCOSE; Start 09/24/16 at 21:00 Acetaminophen (Ofirmev 1000mg/ 100ml Iv) 100 ml @ 400 mls/hr Q6H PRN IVPB FEVER Last administered on 10/07/16 17:14; Admin Dose 400 MLS/HR; Start at 22:00 Vancomycin HCl (Vancomycin Oral Syringe) 250 mg Q6 PO Last administered on 17:15; Admin Dose 250 MG; Start 09/26/16 at 18:00; Status Future Hold Lactobacillus Acidoph/Bulgaricus (Floranex) 1 tab TID PO Last administered on 13:22; Admin Dose 1 TAB; Start 09/26/16 at 21:00; Status Future Hold Atorvastatin Calcium (Lipitor) 20 mg QHS GTB Last administered on 10/05/16 21: 42; Admin Dose 20 MG; Start 09/28/16 at 21:00; Status Future Hold Finasteride (Proscar) 5 mg DAILY GTB Last administered on 10/06/16 09:12; Admin Dose 5 MG; Start 09/29/16 at 09:00; Status Future Hold Multivitamins Therapeutic (Theragran) 1 tab DAILY GTB Last administered on 09:12; Admin Dose 1 TAB; Start 09/29/16 at 09:00; Status Future Hold Zinc Sulfate (Zinc Sulfate) 220 mg DAILY NGT Last administered on 10/06/16 09: 13; Admin Dose 220 MG; Start 09/29/16 at 09:00; Status Future Hold Ondansetron HCl (Zofran Inj) 4 mg Q6H PRN IV NAUSEA AND/OR VOMITING Last administered on 10/13/16 16:10; Admin Dose 4 MG; Start 09/29/16 at 07:30 Acetaminophen 650 mg 650 mg Q6H PRN GTB PAIN AND OR ELEVATED TEMP Last administered on 10/21/16 22:51; Admin Dose 650 MG; Start 10/02/16 at 08:00 Metronidazole (Flagyl 500 Mg (Pmx)) 100 ml @ 100 mls/hr Q8 IVPB Last administered on 10/22/16 21:31; Admin Dose 100 MLS/HR; Start 10/02/16 at 14:00 Midodrine 10 mg 10 mg TID@,,17 PO Last administered on 10/06/16 17:15; Admin Dose 10 MG; Start 10/06/16 at 01:00; Status Future Hold Linezolid (Zyvox 600mg/D5W (Pmx)) 300 ml @ 300 mls/hr Q12 IVPB Last administered on 10/22/16 22:33; Admin Dose 300 MLS/HR; Start 10/06/16 at 21:00 Levothyroxine Sodium (Synthroid Iv) 12.5 mcg DAILY@06 IV Last administered on 06:07; Admin Dose 12.5 MCG; Start 10/07/16 at 06:00 Metoclopramide HCl (Reglan) 5 mg Q8 IV Last administered on 10/22/16 22:33; Admin Dose 5 MG; Start 10/06/16 at 22:00 Voriconazole 200 mg 200 mg BID PO Last administered on 10/22/16 22:33; Admin Dose 200 MG; Start 10/08/16 at 21:00 Colistimethate Sodium/Sodium Chloride (Coly-Mycin/NS) 100 ml @ 200 mls/hr Q12 IVPB Last administered on 10/21/16 19:52; Admin Dose 200 MLS/HR; Start at 13:30 Lansoprazole 30 mg 30 mg BID@06,18 GTB Last administered on 10/22/16 18:57; Admin Dose 30 MG; Start 10/21/16 at 18:00 Diltiazem HCl (Cardizem-D5W 125 Mg/125 ml Drip) 125 ml @ 5 mls/hr TITRATE IV Last administered on 10/22/16 05:51; Admin Dose 5 MLS/HR; Start 10/22/16 at 07: 00 IV Flush (NS 10 ml) 10 ml PRN PRN IV IV PROTOCOL; Start 10/22/16 at 14:30 HUGO DIAZ MD Oct 22, 2016 22:54
--- NOTE | 2016-10-22 23:48 | PN ---
DATE: 10/22/2016 SUBJECTIVE: The patient himself is not capable of giving any complaints, but he does have penoscrot al edema and extremity contractures, mostly in the lower extremities. OBJECTIVE: VITAL SIGNS: His temperature is 98.1, blood pressure 88/50, pulse is 103. The respiration is 18. GENITOURINARY: The patient has severe contraction. I was able to separate his legs a little bit to be able to look at the penoscrotal edema and that is still significant. The Cee catheter that he has is draining clear urine. LABORATORY DATA: CBC shows a white count of 18.0, hemoglobin 9.9, hematocrit 32.6, platelet count 2 22,000. BUN is 22, creatinine 0.92, sodium 137, potassium 4.7, chloride 109, CO2 of 19. Urine cult ure from 10/19/2016 was no growth after 48 hours. IMPRESSION: 1. Penoscrotal edema. 2. Lower extremities contractures. PLAN: To elevate the scrotum and the penis on a towel all the time and leave the Cee catheter in. Dictated By: MISHEL MAO MD BB/ELIZABETH Conf#: [id number] DID#: [id number] CC: FELIX BLAKE MD;*End*
[2016-10-23] VITALS (24 sets, daily range): BP systolic 79–109; BP diastolic 47–58; PULSE 109–130; RESP 16–31
[2016-10-23] MEDS: COLISTIMETHATE 75 MG in SOD CHLORIDE 0.9% 100 ML IVPB SCH ×4 (00:23→22:45)
[2016-10-23] MEDS: IPRATROPIUM (HFA) 12.9 GM INHALER INH SCH ×4 (01:05→20:56)
[2016-10-23] MEDS: ALBUTEROL HFA 8 GM INHALER INH SCH ×4 (01:05→20:56)
[2016-10-23] MEDS: DILTIAZEM-D5W 125MG/125ML DRIP 125 ML IV SCH (04:12)
[2016-10-23] MEDS: METOCLOPRAMIDE 10 MG INJ IV SCH ×3 (05:16→22:00)
[2016-10-23] MEDS: metroNIDAZOLE 500 MG/NS (PMX) 100 ML IVPB SCH ×3 (05:17→22:00)
[2016-10-23] MEDS: LANSOPRAZOLE 30 MG CAP GTB SCH ×2 (05:17→17:28)
[2016-10-23] MEDS: LEVOTHYROXINE 100 MCG VIAL IV SCH (05:19)
[2016-10-23 06:32] LABS: ADD SCAN DIFF NO
[2016-10-23 06:45] LABS: ABNORMAL IP MESSAGE 1; HEMOGLOBIN 7.8 g/dl (14.0-18.0); MEAN CORPUSCULAR HEMOGLOBIN 26.3 pg (29.0-33.0); MEAN CORPUSCULAR VOLUME 87.5 fl (82.0-101.0); MEAN PLATELET VOLUME 12.5 fl (7.4-10.4); PLATELET COUNT 41 10^3/UL (140-415); RED BLOOD COUNT 2.97 10^6/ul (4.70-6.10); RED CELL DISTRIBUTION WIDTH 18.3 % (11.5-14.5); WHITE BLOOD COUNT 10.1 10^3/ul (4.8-10.8)
[2016-10-23 06:58] LABS: CREATININE 0.97 mg/dl (0.61-1.24); POTASSIUM 4.1 mmol/L (3.5-5.1)
--- NOTE | 2016-10-23 08:18 | RADRPT ---
PROCEDURE: XR Chest 1 view. CLINICAL INDICATION: Shortness of breath TECHNIQUE: AP views of the chest were obtained. COMPARISON: October 22, 2016 at 01:56 p.m. FINDINGS: The heart is large. Calcified atherosclerosis is noted in the aorta. Tracheostomy tube is stable. Retrocardiac opacity is seen. Moderate left pleural effusion is noted. Patchy infiltrates are iden tified in the right mid and lower lung. Small right pleural effusion is seen. Scattered atelectasi s is noted in the left upper lobe. Diffuse mild interstitial prominence is noted in both lungs. Th e osseous structures are osteopenic, but appear grossly intact. Right PICC line has its tip in the e xpected location of the mid - distal superior vena cava. IMPRESSION: Cardiomegaly with calcified atherosclerosis in the aorta. Stable left lower lobe infiltrates and moderate left pleural effusion. Stable patchy infiltrates in the right mid and lower lung, combined with small pleural effusion. Scattered atelectasis in the left upper lobe. Stable diffuse mild interstitial prominence in both lungs. RPTAT: AA .Haresh Austin MD, Date Time Electronically viewed and signed by .Haresh Austin MD, on 10/23/2016 08:17 .P/
[2016-10-23] MEDS ORDERED: SOD CHLORIDE 0.9% 500 ML IV ONE (08:30)
[2016-10-23 09:31] LABS: LYMPHOCYTES # 2.3 10^3/ul (0.8-2.9); MONOCYTE # 0.6 10^3/ul (0.3-0.9); NEUTROPHIL # 7.2 10^3/ul (1.6-7.5)
[2016-10-23 09:32] LABS: HEMATOCRIT 25.5 % (42.0-52.0); HEMOGLOBIN 7.7 g/dl (14.0-18.0)
[2016-10-23 09:39] LABS: PLATELET ESTIMATE PLT APPEAR ADEQUATE; PLATELETS CLUMPS 3+
[2016-10-23] MEDS: SODIUM HYPOCHLORITE 0.125% 473 ML BTL IRR SCH ×2 (10:05→21:04)
[2016-10-23] MEDS: LINEZOLID 600 MG/D5W (PMX) 300 ML IVPB SCH ×2 (10:05→21:04)
[2016-10-23] MEDS: ARTIFICIAL TEARS 15 ML OPH BOTH EYES SCH ×3 (10:06→21:04)
[2016-10-23] MEDS: COLLAGENASE 30 GM TUBE TOP SCH (10:06)
[2016-10-23] MEDS: VORICONAZOLE 200 MG TAB PO SCH ×2 (10:06→21:04)
--- NOTE | 2016-10-23 12:13 | CONS ---
Date/Time of Note Date/Time of Note DATE: 10/23/16 TIME: 12:11 Assessment/Plan Assessment/Plan Additional Assessment/Plan 1. Acute kidney injury on chronic kidney disease. due to ATN from septic shock 2. septic shock on levophed 3. severe metabolic acidosis on bicarbonate drip 5. History of chronic respiratory failure, status post tracheostomy, on ventilator. 6. History of G-tube. 7. Poor mental status due to the previous cerebrovascular accident. 8. History of dementia. 9. History of hypertension. 10. Hypocalcemia with Ca 6.9- likely pseudohypocalcemia, because corrected Ca with Serum albumin of 1.6 is 8.8-no symptoms of hypocalcemia PLAN: on Tube feeding, WBC 10.1, Hb 7.7, Bp stable,Cr stable On IV Coly-mycin and IV zyvox, need to monitor renal function and K will follow up Consultation Date/Type/Reason Admit Date/Time Sep 24, 2016 at 03:19 Initial Consult Date 09/24/16 Type of Consultation: NEPHROLOGY Referring Provider: FELIX BLAKE DO 24 HR Interval Summary Free Text/Dictation Cr stable, Na 134, WBC improving Exam/Review of Systems Vital Signs Vitals Vital Signs Date Time Temp Pulse Resp B/P Pulse Ox O2 Delivery O2 Flow Rate FiO2 10/23/16 08:13 113 10/23/16 08:00 98.0 16 92/53 99 10/23/16 05:36 30 10/19/16 21:00 Mechanical Ventilator Intake and Output 10/22/16 10/22/16 10/23/16 15:00 23:00 07:00 Intake Total 400 ml 400 ml Output Total 850 ml Balance -450 ml 400 ml Exam GENERAL: Chronically ill-appearing, elderly man who is in no distress. HEENT: Head atraumatic, normocephalic. Sclerae anicteric. Buccal mucosa dry. NECK: Supple. Tracheostomy present. CHEST: bilateral Clear BS, no wheezing HEART: S1, S2. ABDOMEN: Obese, soft, bowel tones present. EXTREMITIES: No cyanosis. Bilateral edema., +scrotal edema stable SKIN: With multiple unstageable decubitus. Results Result Diagram: 10/23/16 0903 10/23/16 0540 Results 24 hrs Laboratory Tests Test 10/23/16 05:40 10/23/16 09:03 White Blood Count 10.1 # Red Blood Count 2.97 #L Hemoglobin 7.8 #L 7.7 L Hematocrit 26.0 #L 25.5 L Mean Corpuscular Volume 87.5 Mean Corpuscular Hemoglobin 26.3 L Mean Corpuscular Hemoglobin Concent 30.0 L Red Cell Distribution Width 18.3 H Platelet Count 41 #L Mean Platelet Volume 12.5 H Neutrophils % 71.0 Lymphocytes % 23.0 Monocytes % 6.0 Neutrophils # 7.2 Lymphocytes # 2.3 Monocytes # 0.6 Platelet Estimate PLT APPEAR ADEQUATE Clumped Platelets 3+ Sodium Level 134 L Potassium Level 4.1 Chloride Level 110 Carbon Dioxide Level 20 L Anion Gap 8 Blood Urea Nitrogen 20 Creatinine 0.97 Glucose Level 103 Calcium Level 7.0 L Medications Medications Current Medications Acetaminophen (Tylenol Supp) 650 mg Q4H PRN [place] PAIN LEVEL 1-3 OR FEVER; Start 09/24/16 at 03:00 Eye Lubricant (Artificial Tears Oph) 1 drop TID BOTH EYES Last administered on 10/23/16 10:06; Admin Dose 1 DROP; Start 09/24/16 at 09:00 Sodium Hypochlorite (Dakin'S (1/4 Strength)) 1 applic BID IRR Last administered on 10/23/16 10:05; Admin Dose 1 APPLIC; Start 09/24/16 at 21:00 Collagenase (Santyl) 1 applic DAILY TOP Last administered on 10/23/16 10:06; Admin Dose 1 APPLIC; Start 09/24/16 at 20:30 Miscellaneous Information 1 ea NOTE XX ; Start 09/24/16 at 21:00 Glucose (Glutose) 15 gm Q15M PRN PO DECREASED GLUCOSE; Start 09/24/16 at 21:00 Glucose (Glutose) 22.5 gm Q15M PRN PO DECREASED GLUCOSE; Start 09/24/16 at 21: 00 Dextrose (D50w Syringe) 25 ml Q15M PRN IV DECREASED GLUCOSE; Start 09/24/16 at 21:00 Dextrose (D50w Syringe) 50 ml Q15M PRN IV DECREASED GLUCOSE; Start 09/24/16 at 21:00 Glucagon (Glucagen) 1 mg Q15M PRN IM DECREASED GLUCOSE; Start 09/24/16 at 21:00 Glucose 15 gm 15 gm Q15M PRN BUCCAL DECREASED GLUCOSE; Start 09/24/16 at 21:00 Acetaminophen (Ofirmev 1000mg/ 100ml Iv) 100 ml @ 400 mls/hr Q6H PRN IVPB FEVER Last administered on 10/07/16 17:14; Admin Dose 400 MLS/HR; Start at 22:00 Vancomycin HCl (Vancomycin Oral Syringe) 250 mg Q6 PO Last administered on 17:15; Admin Dose 250 MG; Start 09/26/16 at 18:00; Status Future Hold Lactobacillus Acidoph/Bulgaricus (Floranex) 1 tab TID PO Last administered on 13:22; Admin Dose 1 TAB; Start 09/26/16 at 21:00; Status Future Hold Atorvastatin Calcium (Lipitor) 20 mg QHS GTB Last administered on 10/05/16 21: 42; Admin Dose 20 MG; Start 09/28/16 at 21:00; Status Future Hold Finasteride (Proscar) 5 mg DAILY GTB Last administered on 10/06/16 09:12; Admin Dose 5 MG; Start 09/29/16 at 09:00; Status Future Hold Multivitamins Therapeutic (Theragran) 1 tab DAILY GTB Last administered on 09:12; Admin Dose 1 TAB; Start 09/29/16 at 09:00; Status Future Hold Zinc Sulfate (Zinc Sulfate) 220 mg DAILY NGT Last administered on 10/06/16 09: 13; Admin Dose 220 MG; Start 09/29/16 at 09:00; Status Future Hold Ondansetron HCl (Zofran Inj) 4 mg Q6H PRN IV NAUSEA AND/OR VOMITING Last administered on 10/13/16 16:10; Admin Dose 4 MG; Start 09/29/16 at 07:30 Acetaminophen 650 mg 650 mg Q6H PRN GTB PAIN AND OR ELEVATED TEMP Last administered on 10/21/16 22:51; Admin Dose 650 MG; Start 10/02/16 at 08:00 Metronidazole (Flagyl 500 Mg (Pmx)) 100 ml @ 100 mls/hr Q8 IVPB Last administered on 10/23/16 05:17; Admin Dose 100 MLS/HR; Start 10/02/16 at 14:00 Midodrine 10 mg 10 mg TID@,,17 PO Last administered on 10/06/16 17:15; Admin Dose 10 MG; Start 10/06/16 at 01:00; Status Future Hold Linezolid (Zyvox 600mg/D5W (Pmx)) 300 ml @ 300 mls/hr Q12 IVPB Last administered on 10/23/16 10:05; Admin Dose 300 MLS/HR; Start 10/06/16 at 21:00 Levothyroxine Sodium (Synthroid Iv) 12.5 mcg DAILY@06 IV Last administered on 05:19; Admin Dose 12.5 MCG; Start 10/07/16 at 06:00 Metoclopramide HCl (Reglan) 5 mg Q8 IV Last administered on 10/23/16 05:16; Admin Dose 5 MG; Start 10/06/16 at 22:00 Voriconazole 200 mg 200 mg BID PO Last administered on 10/23/16 10:06; Admin Dose 200 MG; Start 10/08/16 at 21:00 Colistimethate Sodium/Sodium Chloride (Coly-Mycin/NS) 100 ml @ 200 mls/hr Q12 IVPB Last administered on 10/23/16 00:51; Admin Dose 200 MLS/HR; Start at 13:30 Lansoprazole 30 mg 30 mg BID@,18 GTB Last administered on 10/23/16 05:17; Admin Dose 30 MG; Start 10/21/16 at 18:00 Diltiazem HCl (Cardizem-D5W 125 Mg/125 ml Drip) 125 ml @ 5 mls/hr TITRATE IV Last administered on 10/23/16 04:12; Admin Dose 5 MLS/HR; Start 10/22/16 at 07: 00 IV Flush (NS 10 ml) 10 ml PRN PRN IV IV PROTOCOL; Start 10/22/16 at 14:30 MAGGIE DINERO MD Oct 23, 2016 12:13
--- NOTE | 2016-10-23 12:19 | CONS ---
Date/Time of Note Date/Time of Note DATE: 10/23/16 TIME: 12:18 Assessment/Plan Assessment/Plan Additional Assessment/Plan Ventilator settings; AC of 14, tidal volume 500, PEEP of 5, 30% FiO2. Assessment recommendations; 1. Patient admitted with sepsis due to sacral decubitus ulcer. 2. Advanced multi-infarct dementia, patient remains ventilator dependent. 3. Thrombocytopenia and anemia. Continue current treatment. Patient prognosis is poor. Consultation Date/Type/Reason Admit Date/Time Sep 24, 2016 at 03:19 Initial Consult Date 09/24/16 Type of Consultation: Pulmonary Referring Provider: FELIX BLAKE DO 24 HR Interval Summary Free Text/Dictation Patient condition remains unchanged. Remains unresponsive. Has remained hemodynamically stable. General exam; elderly male, on ventilator via tracheostomy currently in no distress. Exam/Review of Systems Vital Signs Vitals Vital Signs Date Time Temp Pulse Resp B/P Pulse Ox O2 Delivery O2 Flow Rate FiO2 10/23/16 12:11 125 10/23/16 08:00 98.0 16 92/53 99 10/23/16 05:36 30 10/19/16 21:00 Mechanical Ventilator Intake and Output 10/22/16 10/22/16 10/23/16 15:00 23:00 07:00 Intake Total 400 ml 400 ml Output Total 850 ml Balance -450 ml 400 ml Exam HEENT exam is; supple neck, no JVD. No lymphadenopathy. Midline trachea. No thyromegaly. Tracheostomy in place. Chest examined; diminished but clear vessel bilaterally. S1-S2 audible, no murmurs. Regular rhythm. Abdomen exam is; soft, G-tube in place. No organomegaly. Bowel sounds audible. Extremity exam; trace peripheral edema. Patient has contractures involving all 4 extremities. PEDIATRIC PHYSICAL THERAPY ASSISTANT exam is; patient remains unresponsive. Results Result Diagram: 10/23/16 0903 10/23/16 0540 Results 24 hrs Laboratory Tests Test 10/23/16 05:40 10/23/16 09:03 White Blood Count 10.1 # Red Blood Count 2.97 #L Hemoglobin 7.8 #L 7.7 L Hematocrit 26.0 #L 25.5 L Mean Corpuscular Volume 87.5 Mean Corpuscular Hemoglobin 26.3 L Mean Corpuscular Hemoglobin Concent 30.0 L Red Cell Distribution Width 18.3 H Platelet Count 41 #L Mean Platelet Volume 12.5 H Neutrophils % 71.0 Lymphocytes % 23.0 Monocytes % 6.0 Neutrophils # 7.2 Lymphocytes # 2.3 Monocytes # 0.6 Platelet Estimate PLT APPEAR ADEQUATE Clumped Platelets 3+ Sodium Level 134 L Potassium Level 4.1 Chloride Level 110 Carbon Dioxide Level 20 L Anion Gap 8 Blood Urea Nitrogen 20 Creatinine 0.97 Glucose Level 103 Calcium Level 7.0 L Medications Medications Current Medications Acetaminophen (Tylenol Supp) 650 mg Q4H PRN [place] PAIN LEVEL 1-3 OR FEVER; Start 09/24/16 at 03:00 Eye Lubricant (Artificial Tears Oph) 1 drop TID BOTH EYES Last administered on 10/23/16 10:06; Admin Dose 1 DROP; Start 09/24/16 at 09:00 Sodium Hypochlorite (Dakin'S (1/4 Strength)) 1 applic BID IRR Last administered on 10/23/16 10:05; Admin Dose 1 APPLIC; Start 09/24/16 at 21:00 Collagenase (Santyl) 1 applic DAILY TOP Last administered on 10/23/16 10:06; Admin Dose 1 APPLIC; Start 09/24/16 at 20:30 Miscellaneous Information 1 ea NOTE XX ; Start 09/24/16 at 21:00 Glucose (Glutose) 15 gm Q15M PRN PO DECREASED GLUCOSE; Start 09/24/16 at 21:00 Glucose (Glutose) 22.5 gm Q15M PRN PO DECREASED GLUCOSE; Start 09/24/16 at 21: 00 Dextrose (D50w Syringe) 25 ml Q15M PRN IV DECREASED GLUCOSE; Start 09/24/16 at 21:00 Dextrose (D50w Syringe) 50 ml Q15M PRN IV DECREASED GLUCOSE; Start 09/24/16 at 21:00 Glucagon (Glucagen) 1 mg Q15M PRN IM DECREASED GLUCOSE; Start 09/24/16 at 21:00 Glucose 15 gm 15 gm Q15M PRN BUCCAL DECREASED GLUCOSE; Start 09/24/16 at 21:00 Acetaminophen (Ofirmev 1000mg/ 100ml Iv) 100 ml @ 400 mls/hr Q6H PRN IVPB FEVER Last administered on 10/07/16 17:14; Admin Dose 400 MLS/HR; Start at 22:00 Vancomycin HCl (Vancomycin Oral Syringe) 250 mg Q6 PO Last administered on 17:15; Admin Dose 250 MG; Start 09/26/16 at 18:00; Status Future Hold Lactobacillus Acidoph/Bulgaricus (Floranex) 1 tab TID PO Last administered on 13:22; Admin Dose 1 TAB; Start 09/26/16 at 21:00; Status Future Hold Atorvastatin Calcium (Lipitor) 20 mg QHS GTB Last administered on 10/05/16 21: 42; Admin Dose 20 MG; Start 09/28/16 at 21:00; Status Future Hold Finasteride (Proscar) 5 mg DAILY GTB Last administered on 10/06/16 09:12; Admin Dose 5 MG; Start 09/29/16 at 09:00; Status Future Hold Multivitamins Therapeutic (Theragran) 1 tab DAILY GTB Last administered on 09:12; Admin Dose 1 TAB; Start 09/29/16 at 09:00; Status Future Hold Zinc Sulfate (Zinc Sulfate) 220 mg DAILY NGT Last administered on 10/06/16 09: 13; Admin Dose 220 MG; Start 09/29/16 at 09:00; Status Future Hold Ondansetron HCl (Zofran Inj) 4 mg Q6H PRN IV NAUSEA AND/OR VOMITING Last administered on 10/13/16 16:10; Admin Dose 4 MG; Start 09/29/16 at 07:30 Acetaminophen 650 mg 650 mg Q6H PRN GTB PAIN AND OR ELEVATED TEMP Last administered on 10/21/16 22:51; Admin Dose 650 MG; Start 10/02/16 at 08:00 Metronidazole (Flagyl 500 Mg (Pmx)) 100 ml @ 100 mls/hr Q8 IVPB Last administered on 10/23/16 05:17; Admin Dose 100 MLS/HR; Start 10/02/16 at 14:00 Midodrine 10 mg 10 mg TID@,, PO Last administered on 10/06/16 17:15; Admin Dose 10 MG; Start 10/06/16 at 01:00; Status Future Hold Linezolid (Zyvox 600mg/D5W (Pmx)) 300 ml @ 300 mls/hr Q12 IVPB Last administered on 10/23/16 10:05; Admin Dose 300 MLS/HR; Start 10/06/16 at 21:00 Levothyroxine Sodium (Synthroid Iv) 12.5 mcg DAILY@06 IV Last administered on 05:19; Admin Dose 12.5 MCG; Start 10/07/16 at 06:00 Metoclopramide HCl (Reglan) 5 mg Q8 IV Last administered on 10/23/16 05:16; Admin Dose 5 MG; Start 10/06/16 at 22:00 Voriconazole 200 mg 200 mg BID PO Last administered on 10/23/16 10:06; Admin Dose 200 MG; Start 10/08/16 at 21:00 Colistimethate Sodium/Sodium Chloride (Coly-Mycin/NS) 100 ml @ 200 mls/hr Q12 IVPB Last administered on 10/23/16 00:51; Admin Dose 200 MLS/HR; Start at 13:30 Lansoprazole 30 mg 30 mg BID@06,18 GTB Last administered on 10/23/16 05:17; Admin Dose 30 MG; Start 10/21/16 at 18:00 Diltiazem HCl (Cardizem-D5W 125 Mg/125 ml Drip) 125 ml @ 5 mls/hr TITRATE IV Last administered on 10/23/16 04:12; Admin Dose 5 MLS/HR; Start 10/22/16 at 07: 00 IV Flush (NS 10 ml) 10 ml PRN PRN IV IV PROTOCOL; Start 10/22/16 at 14:30 MAIN SALTER Oct 23, 2016 12:19
--- NOTE | 2016-10-23 12:30 | CONS ---
Date/Time of Note Date/Time of Note DATE: 10/23/16 TIME: 12:29 Assessment/Plan Assessment/Plan Chief Complaint/Hosp Course ANEMIA - NEAR- MICROCYTIC WITH INCREASED RDW DROP H/H DURING HOSPITALIZATION + ACD TRANSFUSE PRBC TO KEEP HB MORE THAN 8 TRANSFUSE NEEDED GI F-UP Stool OB, negative Monitor H&H, transfuse 2 units for hemoglobin less than 8 LEUKOCYTOSIS- REACTIVE CONT ATB FOR SEPSIS THROMBOCYTOSIS REACTIVE SHOULD IMPROVE WITH RESOLUTION OF SEPSIS Severe sepsis with septic shock 2/2 Decub ulcers and/or UTI and/or PNA: stable, off pressor support Severe hypernatremic dehydration Acute renal failure 2/2 ATN from dehydration UTI Multifocal pneumonia Encephalopathy ?acute versus acute on chronic (baseline unknown) Hypokalemia Problems: Consultation Date/Type/Reason Admit Date/Time Sep 24, 2016 at 03:19 Initial Consult Date 09/24/16 [facility] Referring Provider: FELIX BLAKE DO 24 HR Interval Summary Free Text/Dictation DOING OK Exam/Review of Systems Vital Signs Vitals Vital Signs Date Time Temp Pulse Resp B/P Pulse Ox O2 Delivery O2 Flow Rate FiO2 10/23/16 12:11 125 10/23/16 08:00 98.0 16 92/53 99 10/23/16 05:36 30 10/19/16 21:00 Mechanical Ventilator Intake and Output 10/22/16 10/22/16 10/23/16 15:00 23:00 07:00 Intake Total 400 ml 400 ml Output Total 850 ml Balance -450 ml 400 ml Exam GENERAL: Chronically ill-appearing, elderly man who is in no distress. HEENT: Head atraumatic, normocephalic. Sclerae anicteric. Buccal mucosa dry. NECK: Supple. Tracheostomy present. CHEST: bilateral Clear BS, no wheezing HEART: S1, S2. ABDOMEN: Obese, soft, bowel tones present. EXTREMITIES: No cyanosis. Bilateral edema., +scrotal edema stable SKIN: With multiple unstageable decubitus. Results Result Diagram: 10/23/16 0903 10/23/16 0540 Results 24 hrs Laboratory Tests Test 10/23/16 05:40 10/23/16 09:03 White Blood Count 10.1 # Red Blood Count 2.97 #L Hemoglobin 7.8 #L 7.7 L Hematocrit 26.0 #L 25.5 L Mean Corpuscular Volume 87.5 Mean Corpuscular Hemoglobin 26.3 L Mean Corpuscular Hemoglobin Concent 30.0 L Red Cell Distribution Width 18.3 H Platelet Count 41 #L Mean Platelet Volume 12.5 H Neutrophils % 71.0 Lymphocytes % 23.0 Monocytes % 6.0 Neutrophils # 7.2 Lymphocytes # 2.3 Monocytes # 0.6 Platelet Estimate PLT APPEAR ADEQUATE Clumped Platelets 3+ Sodium Level 134 L Potassium Level 4.1 Chloride Level 110 Carbon Dioxide Level 20 L Anion Gap 8 Blood Urea Nitrogen 20 Creatinine 0.97 Glucose Level 103 Calcium Level 7.0 L Medications Medications Current Medications Acetaminophen (Tylenol Supp) 650 mg Q4H PRN [place] PAIN LEVEL 1-3 OR FEVER; Start 09/24/16 at 03:00 Eye Lubricant (Artificial Tears Oph) 1 drop TID BOTH EYES Last administered on 10/23/16 10:06; Admin Dose 1 DROP; Start 09/24/16 at 09:00 Sodium Hypochlorite (Dakin'S (1/4 Strength)) 1 applic BID IRR Last administered on 10/23/16 10:05; Admin Dose 1 APPLIC; Start 09/24/16 at 21:00 Collagenase (Santyl) 1 applic DAILY TOP Last administered on 10/23/16 10:06; Admin Dose 1 APPLIC; Start 09/24/16 at 20:30 Miscellaneous Information 1 ea NOTE XX ; Start 09/24/16 at 21:00 Glucose (Glutose) 15 gm Q15M PRN PO DECREASED GLUCOSE; Start 09/24/16 at 21:00 Glucose (Glutose) 22.5 gm Q15M PRN PO DECREASED GLUCOSE; Start 09/24/16 at 21: 00 Dextrose (D50w Syringe) 25 ml Q15M PRN IV DECREASED GLUCOSE; Start 09/24/16 at 21:00 Dextrose (D50w Syringe) 50 ml Q15M PRN IV DECREASED GLUCOSE; Start 09/24/16 at 21:00 Glucagon (Glucagen) 1 mg Q15M PRN IM DECREASED GLUCOSE; Start 09/24/16 at 21:00 Glucose 15 gm 15 gm Q15M PRN BUCCAL DECREASED GLUCOSE; Start 09/24/16 at 21:00 Acetaminophen (Ofirmev 1000mg/ 100ml Iv) 100 ml @ 400 mls/hr Q6H PRN IVPB FEVER Last administered on 10/07/16 17:14; Admin Dose 400 MLS/HR; Start at 22:00 Vancomycin HCl (Vancomycin Oral Syringe) 250 mg Q6 PO Last administered on 17:15; Admin Dose 250 MG; Start 09/26/16 at 18:00; Status Future Hold Lactobacillus Acidoph/Bulgaricus (Floranex) 1 tab TID PO Last administered on 13:22; Admin Dose 1 TAB; Start 09/26/16 at 21:00; Status Future Hold Atorvastatin Calcium (Lipitor) 20 mg QHS GTB Last administered on 10/05/16 21: 42; Admin Dose 20 MG; Start 09/28/16 at 21:00; Status Future Hold Finasteride (Proscar) 5 mg DAILY GTB Last administered on 10/06/16 09:12; Admin Dose 5 MG; Start 09/29/16 at 09:00; Status Future Hold Multivitamins Therapeutic (Theragran) 1 tab DAILY GTB Last administered on 09:12; Admin Dose 1 TAB; Start 09/29/16 at 09:00; Status Future Hold Zinc Sulfate (Zinc Sulfate) 220 mg DAILY NGT Last administered on 10/06/16 09: 13; Admin Dose 220 MG; Start 09/29/16 at 09:00; Status Future Hold Ondansetron HCl (Zofran Inj) 4 mg Q6H PRN IV NAUSEA AND/OR VOMITING Last administered on 10/13/16 16:10; Admin Dose 4 MG; Start 09/29/16 at 07:30 Acetaminophen 650 mg 650 mg Q6H PRN GTB PAIN AND OR ELEVATED TEMP Last administered on 10/21/16 22:51; Admin Dose 650 MG; Start 10/02/16 at 08:00 Metronidazole (Flagyl 500 Mg (Pmx)) 100 ml @ 100 mls/hr Q8 IVPB Last administered on 10/23/16 05:17; Admin Dose 100 MLS/HR; Start 10/02/16 at 14:00 Midodrine 10 mg 10 mg TID@,,17 PO Last administered on 10/06/16 17:15; Admin Dose 10 MG; Start 10/06/16 at 01:00; Status Future Hold Linezolid (Zyvox 600mg/D5W (Pmx)) 300 ml @ 300 mls/hr Q12 IVPB Last administered on 10/23/16 10:05; Admin Dose 300 MLS/HR; Start 10/06/16 at 21:00 Levothyroxine Sodium (Synthroid Iv) 12.5 mcg DAILY@06 IV Last administered on 05:19; Admin Dose 12.5 MCG; Start 10/07/16 at 06:00 Metoclopramide HCl (Reglan) 5 mg Q8 IV Last administered on 10/23/16 05:16; Admin Dose 5 MG; Start 10/06/16 at 22:00 Voriconazole 200 mg 200 mg BID PO Last administered on 10/23/16 10:06; Admin Dose 200 MG; Start 10/08/16 at 21:00 Colistimethate Sodium/Sodium Chloride (Coly-Mycin/NS) 100 ml @ 200 mls/hr Q12 IVPB Last administered on 10/23/16 00:51; Admin Dose 200 MLS/HR; Start at 13:30 Lansoprazole 30 mg 30 mg BID@06,18 GTB Last administered on 10/23/16 05:17; Admin Dose 30 MG; Start 10/21/16 at 18:00 Diltiazem HCl (Cardizem-D5W 125 Mg/125 ml Drip) 125 ml @ 5 mls/hr TITRATE IV Last administered on 10/23/16 04:12; Admin Dose 5 MLS/HR; Start 10/22/16 at 07: 00 IV Flush (NS 10 ml) 10 ml PRN PRN IV IV PROTOCOL; Start 10/22/16 at 14:30 SCOTT RODRIGUES MD Oct 23, 2016 12:30
--- NOTE | 2016-10-23 13:57 | PN ---
DATE: 10/23/2016 SUBJECTIVE: The patient himself is not capable of giving any complaints, but he does have contractu res of his extremities and also severe penoscrotal edema with erythema. OBJECTIVE: VITAL SIGNS: His temperature is 98.0, blood pressure 92/53, pulse 120, respirations 24. GENITOURINARY: The Cee catheter is draining clear urine. The penoscrotal edema still very signif icant. Also, he does have weeping from the scrotal edema into the towels that are used to elevate t he scrotum. LABORATORY DATA: CBC shows a white count of 10.1, hemoglobin 7.8, hematocrit 26.0. BUN is 20, creat inine 0.97, sodium 134, potassium 4.1, chloride 110, CO2 of 20. The urine culture from 10/19/2016 s hows no growth after 48 hours. PLAN: To continue to elevate the scrotum on a towel and also keep the Cee catheter in. Dictated By: MISHEL WOODWARD/ELIZABETH Conf#: [id number] DID#: [id number]
--- NOTE | 2016-10-23 14:11 | PN ---
Date/Time of Note Date/Time of Note DATE: 10/23/16 TIME: 14:10 Assessment/Plan Lines/Catheters IV Catheter Type (from [facility]): PICC Line Cee in Place (from [facility]): Yes Assessment/Plan Chief Complaint/Hosp Course 1. Shock, septic (uti, pna, wound). -Judicious fluid management -Supportive measures -Antibiotics 2. Multiple decubitus ulcerations with necrotic tissue and deep tissue injury -Offload -Local care -Vitamin C -Eventual nutritional optimization -Debridement when medically cleared 3. Contracted state with functional quadriplegia -Offloading -Nutritional optimization when possible 4. Anemia -Monitor 5. Ventilator dependent respiratory failure -Ventilator management and pulmonary toilet 6. Renal insufficiency -Judicious fluid management -Avoid nephrotoxic agents 7. Coronary artery disease and history of non-ST elevation SC -Cardiac optimization 8. Thrombocytopenia -medical optimization Thank you Problems: Subjective 24 Hr Interval Summary Tachycardia. Fever. Leukocytosis. No chills. No cough. No seizure. No rash. No blood rectum. No bloating. No seizures. No pyuria. Exam/Review of Systems Vital Signs Vitals Vital Signs Date Time Temp Pulse Resp B/P Pulse Ox O2 Delivery O2 Flow Rate FiO2 10/23/16 13:11 126 24 99 30 10/23/16 08:00 98.0 92/53 10/19/16 21:00 Mechanical Ventilator Intake and Output 10/22/16 10/22/16 10/23/16 15:00 23:00 07:00 Intake Total 400 ml 400 ml Output Total 850 ml Balance -450 ml 400 ml Exam Free Text/Dictation Constitutional: No alert, No oriented Psych: No nl mood/affect Head: atraumatic, normocephalic Eyes: nl conjunctiva, No EOMI, No icteric ENMT: mucosa pink and moist, nl external ears & nose Neck: jvd, other (Trach in place), No non-tender, No supple Respiratory: No congested cough, No labored breathing Cardiovascular: No regular rate and rhythm Gastrointestinal: non-tender, other (PEG in place), soft, No rebound or guarding Musculoskeletal: No joint tenderness, No nl extremities to inspection, No nl gait and stance Extremities: No calf tenderness, No cyanosis Neurological: No nl mental status, No nl speech, No nl strength Skin: rash or lesions (Multiple decubitus ulcerations with debris, necrotic tissue, deep tissue injury), No diaphoresis, No nl turgor Lymph: nontender Results Result Diagram: 10/23/16 0903 10/23/16 0540 EVA GUARDADO MD Oct 23, 2016 14:11
--- NOTE | 2016-10-23 16:26 | PN ---
Date/Time of Note Date/Time of Note DATE: 10/23/16 TIME: 16:23 Assessment/Plan VTE Prophylaxis VTE Prophylaxis Intervention: heparin Lines/Catheters IV Catheter Type (from Nrs): PICC Line Central line still needed: Yes Urinary Cath still in place: Yes Reason Cath still needed: skin wounds contaminated by urine Assessment/Plan Chief Complaint/Hosp Course 1. Sepsis with underlying septic shock secondary to infected sacral decubitus wound. The wound culture has been positive for Klebsiella pneumoniae, Acinetobacter baumannii, vancomycin-resistant Enterococcus and Staph aureus. Continue antimicrobials as per infectious diseases. S/P IV pressors. 2. Infected sacral decubitus ulcer. Continue pain management. Continue local dressing changes as per wound care consultants. 3. Chronic respiratory failure. Status post tracheostomy and vent dependent. Continue inhaled bronchodilators. Pulmonary following the patient. 4. Acute renal failure. Resolved. Most probably secondary to hemodynamics versus from acute tubular necrosis. Continue to use nephrotoxic medications with caution. 5. 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 Continue antimicrobials as per ID. 6. 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 Continue supportive care. 7. Hypothyroidism. Continue Synthroid. 8. Dysphagia secondary to encephalopathy. Continue aspiration precautions. Continue G tube feedings. 9. Normocytic anemia. Continue to monitor the H and H closely. Transfuse as needed. 10. Leukocytosis with thrombocytosis. Resolved. The patient being followed by Hematology. Continue to monitor. 11. Ileus. Resolved. Continue Reglan. Being followed by gastroenterology and Surgery. 12. Moderate . Continue monitoring. 13. DVT prophylaxis. Subcutaneous heparin. 14. Gastrointestinal prophylaxis. Proton pump inhibitors. 15 Fluid, electrolytes and nutrition. Continue G tube feedings. PLAN: Continue antibiotics. Case discussed with Dr. Abdul. Problems: Subjective 24 Hr Interval Summary Free Text/Dictation The patient remains on mechanical ventilator. BP on the lower side. Exam/Review of Systems Vital Signs Vitals Vital Signs Date Time Temp Pulse Resp B/P Pulse Ox O2 Delivery O2 Flow Rate FiO2 10/23/16 16:16 130 10/23/16 15:44 98.6 31 79/47 95 10/23/16 13:11 30 10/19/16 21:00 Mechanical Ventilator Intake and Output 10/22/16 10/22/16 10/23/16 14:59 22:59 06:59 Intake Total 400 ml 400 ml Output Total 850 ml Balance -450 ml 400 ml Exam GENERAL: This is an elderly, frail-looking male lying in bed in no apparent distress. HEENT: Head normocephalic and atraumatic. Eyes: Anicteric sclerae. Conjunctivae clear. ENT: Nasal septum is midline. Oral mucosa is dry. NECK: Supple. Tracheostomy midline. RESPIRATORY: A tracheostomy connected to mechanical ventilator. On AC mode ventilation. CARDIAC: Regular rate and rhythm with a grade III/ systolic ejection murmur. ABDOMEN: Soft, nontender and nondistended. G-tube in place. GENITOURINARY: Cee catheter in place. EXTREMITIES: No cyanosis, no clubbing. Peripheral pulses. Bilateral upper extremity edema. Bilateral foot edema. Contracted bilateral upper and bilateral lower extremities. NEUROLOGIC: The patient is obtunded. Results Result Diagram: 10/23/16 0903 10/23/16 0540 Results 24 hrs Laboratory Tests Test 10/23/16 05:40 10/23/16 09:03 White Blood Count 10.1 # Red Blood Count 2.97 #L Hemoglobin 7.8 #L 7.7 L Hematocrit 26.0 #L 25.5 L Mean Corpuscular Volume 87.5 Mean Corpuscular Hemoglobin 26.3 L Mean Corpuscular Hemoglobin Concent 30.0 L Red Cell Distribution Width 18.3 H Platelet Count 41 #L Mean Platelet Volume 12.5 H Neutrophils % 71.0 Lymphocytes % 23.0 Monocytes % 6.0 Neutrophils # 7.2 Lymphocytes # 2.3 Monocytes # 0.6 Platelet Estimate PLT APPEAR ADEQUATE Clumped Platelets 3+ Sodium Level 134 L Potassium Level 4.1 Chloride Level 110 Carbon Dioxide Level 20 L Anion Gap 8 Blood Urea Nitrogen 20 Creatinine 0.97 Glucose Level 103 Calcium Level 7.0 L Medications Medications Current Medications Acetaminophen (Tylenol Supp) 650 mg Q4H PRN [place] PAIN LEVEL 1-3 OR FEVER; Start 09/24/16 at 03:00 Eye Lubricant (Artificial Tears Oph) 1 drop TID BOTH EYES Last administered on 10/23/16 14:18; Admin Dose 1 DROP; Start 09/24/16 at 09:00 Sodium Hypochlorite (Dakin'S (1/4 Strength)) 1 applic BID IRR Last administered on 10/23/16 10:05; Admin Dose 1 APPLIC; Start 09/24/16 at 21:00 Collagenase (Santyl) 1 applic DAILY TOP Last administered on 10/23/16 10:06; Admin Dose 1 APPLIC; Start 09/24/16 at 20:30 Miscellaneous Information 1 ea NOTE XX ; Start 09/24/16 at 21:00 Glucose (Glutose) 15 gm Q15M PRN PO DECREASED GLUCOSE; Start 09/24/16 at 21:00 Glucose (Glutose) 22.5 gm Q15M PRN PO DECREASED GLUCOSE; Start 09/24/16 at 21: 00 Dextrose (D50w Syringe) 25 ml Q15M PRN IV DECREASED GLUCOSE; Start 09/24/16 at 21:00 Dextrose (D50w Syringe) 50 ml Q15M PRN IV DECREASED GLUCOSE; Start 09/24/16 at 21:00 Glucagon (Glucagen) 1 mg Q15M PRN IM DECREASED GLUCOSE; Start 09/24/16 at 21:00 Glucose 15 gm 15 gm Q15M PRN BUCCAL DECREASED GLUCOSE; Start 09/24/16 at 21:00 Acetaminophen (Ofirmev 1000mg/ 100ml Iv) 100 ml @ 400 mls/hr Q6H PRN IVPB FEVER Last administered on 10/07/16 17:14; Admin Dose 400 MLS/HR; Start at 22:00 Vancomycin HCl (Vancomycin Oral Syringe) 250 mg Q6 PO Last administered on 17:15; Admin Dose 250 MG; Start 09/26/16 at 18:00; Status Future Hold Lactobacillus Acidoph/Bulgaricus (Floranex) 1 tab TID PO Last administered on 13:22; Admin Dose 1 TAB; Start 09/26/16 at 21:00; Status Future Hold Atorvastatin Calcium (Lipitor) 20 mg QHS GTB Last administered on 10/05/16 21: 42; Admin Dose 20 MG; Start 09/28/16 at 21:00; Status Future Hold Finasteride (Proscar) 5 mg DAILY GTB Last administered on 10/06/16 09:12; Admin Dose 5 MG; Start 09/29/16 at 09:00; Status Future Hold Multivitamins Therapeutic (Theragran) 1 tab DAILY GTB Last administered on 09:12; Admin Dose 1 TAB; Start 09/29/16 at 09:00; Status Future Hold Zinc Sulfate (Zinc Sulfate) 220 mg DAILY NGT Last administered on 10/06/16 09: 13; Admin Dose 220 MG; Start 09/29/16 at 09:00; Status Future Hold Ondansetron HCl (Zofran Inj) 4 mg Q6H PRN IV NAUSEA AND/OR VOMITING Last administered on 10/13/16 16:10; Admin Dose 4 MG; Start 09/29/16 at 07:30 Acetaminophen 650 mg 650 mg Q6H PRN GTB PAIN AND OR ELEVATED TEMP Last administered on 10/21/16 22:51; Admin Dose 650 MG; Start 10/02/16 at 08:00 Metronidazole (Flagyl 500 Mg (Pmx)) 100 ml @ 100 mls/hr Q8 IVPB Last administered on 10/23/16 14:18; Admin Dose 100 MLS/HR; Start 10/02/16 at 14:00 Midodrine 10 mg 10 mg TID@,,17 PO Last administered on 10/06/16 17:15; Admin Dose 10 MG; Start 10/06/16 at 01:00; Status Future Hold Linezolid (Zyvox 600mg/D5W (Pmx)) 300 ml @ 300 mls/hr Q12 IVPB Last administered on 10/23/16 10:05; Admin Dose 300 MLS/HR; Start 10/06/16 at 21:00 Levothyroxine Sodium (Synthroid Iv) 12.5 mcg DAILY@06 IV Last administered on 05:19; Admin Dose 12.5 MCG; Start 10/07/16 at 06:00 Metoclopramide HCl (Reglan) 5 mg Q8 IV Last administered on 10/23/16 14:18; Admin Dose 5 MG; Start 10/06/16 at 22:00 Voriconazole 200 mg 200 mg BID PO Last administered on 10/23/16 10:06; Admin Dose 200 MG; Start 10/08/16 at 21:00 Colistimethate Sodium/Sodium Chloride (Coly-Mycin/NS) 100 ml @ 200 mls/hr Q12 IVPB Last administered on 10/23/16 12:00; Admin Dose 200 MLS/HR; Start at 13:30 Lansoprazole 30 mg 30 mg BID@06,18 GTB Last administered on 10/23/16 05:17; Admin Dose 30 MG; Start 10/21/16 at 18:00 Diltiazem HCl (Cardizem-D5W 125 Mg/125 ml Drip) 125 ml @ 5 mls/hr TITRATE IV Last administered on 10/23/16 04:12; Admin Dose 5 MLS/HR; Start 10/22/16 at 07: 00 IV Flush (NS 10 ml) 10 ml PRN PRN IV IV PROTOCOL; Start 10/22/16 at 14:30 BIGG HEWITT NP Oct 23, 2016 16:26
--- NOTE | 2016-10-23 16:51 | CONS ---
Date/Time of Note Date/Time of Note DATE: 10/23/16 TIME: 16:47 Assessment/Plan Assessment/Plan Additional Assessment/Plan Severe septic shock Preserved ejection fraction Moderate aortic stenosis Respiratory failure/Tracheostomy Coronary artery disease Anemia -Patient with intermittent episodes of tachycardia, telemetry reviewed with brief episodes of atrial fibrillation, sinus tachycardia. Currently on IV Cardizem. Maintain potassium above 4.0 and magnesium above 2.0. Anemia is worsening, consider blood transfusion if hemoglobin continues to decline. Consultation Date/Type/Reason Admit Date/Time Sep 24, 2016 at 03:19 Initial Consult Date 09/24/16 Type of Consultation: cv Referring Provider: FELIX BLAKE DO 24 HR Interval Summary Free Text/Dictation Patient seen and examined Exam/Review of Systems Vital Signs Vitals Vital Signs Date Time Temp Pulse Resp B/P Pulse Ox O2 Delivery O2 Flow Rate FiO2 10/23/16 16:16 130 10/23/16 15:44 98.6 31 79/47 95 10/23/16 13:11 30 10/19/16 21:00 Mechanical Ventilator Intake and Output 10/22/16 10/22/16 10/23/16 15:00 23:00 07:00 Intake Total 400 ml 400 ml Output Total 850 ml Balance -450 ml 400 ml Exam No apparent distress, no response to verbal stimuli Head: normocephalic Neck: other (Tracheostomy) Respiratory: other (Coarse breath sounds bilaterally, no wheezing) Cardiovascular: other (S1-S2 heard), regular rate and rhythm Gastrointestinal: bowel sounds, non-tender, soft Extremities: edema Results Result Diagram: 10/23/16 0903 10/23/16 0540 Results 24 hrs Laboratory Tests Test 10/23/16 05:40 10/23/16 09:03 White Blood Count 10.1 # Red Blood Count 2.97 #L Hemoglobin 7.8 #L 7.7 L Hematocrit 26.0 #L 25.5 L Mean Corpuscular Volume 87.5 Mean Corpuscular Hemoglobin 26.3 L Mean Corpuscular Hemoglobin Concent 30.0 L Red Cell Distribution Width 18.3 H Platelet Count 41 #L Mean Platelet Volume 12.5 H Neutrophils % 71.0 Lymphocytes % 23.0 Monocytes % 6.0 Neutrophils # 7.2 Lymphocytes # 2.3 Monocytes # 0.6 Platelet Estimate PLT APPEAR ADEQUATE Clumped Platelets 3+ Sodium Level 134 L Potassium Level 4.1 Chloride Level 110 Carbon Dioxide Level 20 L Anion Gap 8 Blood Urea Nitrogen 20 Creatinine 0.97 Glucose Level 103 Calcium Level 7.0 L Medications Medications Current Medications Acetaminophen (Tylenol Supp) 650 mg Q4H PRN [place] PAIN LEVEL 1-3 OR FEVER; Start 09/24/16 at 03:00 Eye Lubricant (Artificial Tears Oph) 1 drop TID BOTH EYES Last administered on 10/23/16 14:18; Admin Dose 1 DROP; Start 09/24/16 at 09:00 Sodium Hypochlorite (Dakin'S (1/4 Strength)) 1 applic BID IRR Last administered on 10/23/16 10:05; Admin Dose 1 APPLIC; Start 09/24/16 at 21:00 Collagenase (Santyl) 1 applic DAILY TOP Last administered on 10/23/16 10:06; Admin Dose 1 APPLIC; Start 09/24/16 at 20:30 Miscellaneous Information 1 ea NOTE XX ; Start 09/24/16 at 21:00 Glucose (Glutose) 15 gm Q15M PRN PO DECREASED GLUCOSE; Start 09/24/16 at 21:00 Glucose (Glutose) 22.5 gm Q15M PRN PO DECREASED GLUCOSE; Start 09/24/16 at 21: 00 Dextrose (D50w Syringe) 25 ml Q15M PRN IV DECREASED GLUCOSE; Start 09/24/16 at 21:00 Dextrose (D50w Syringe) 50 ml Q15M PRN IV DECREASED GLUCOSE; Start 09/24/16 at 21:00 Glucagon (Glucagen) 1 mg Q15M PRN IM DECREASED GLUCOSE; Start 09/24/16 at 21:00 Glucose 15 gm 15 gm Q15M PRN BUCCAL DECREASED GLUCOSE; Start 09/24/16 at 21:00 Acetaminophen (Ofirmev 1000mg/ 100ml Iv) 100 ml @ 400 mls/hr Q6H PRN IVPB FEVER Last administered on 10/07/16 17:14; Admin Dose 400 MLS/HR; Start at 22:00 Vancomycin HCl (Vancomycin Oral Syringe) 250 mg Q6 PO Last administered on 17:15; Admin Dose 250 MG; Start 09/26/16 at 18:00; Status Future Hold Lactobacillus Acidoph/Bulgaricus (Floranex) 1 tab TID PO Last administered on 13:22; Admin Dose 1 TAB; Start 09/26/16 at 21:00; Status Future Hold Atorvastatin Calcium (Lipitor) 20 mg QHS GTB Last administered on 10/05/16 21: 42; Admin Dose 20 MG; Start 09/28/16 at 21:00; Status Future Hold Finasteride (Proscar) 5 mg DAILY GTB Last administered on 10/06/16 09:12; Admin Dose 5 MG; Start 09/29/16 at 09:00; Status Future Hold Multivitamins Therapeutic (Theragran) 1 tab DAILY GTB Last administered on 09:12; Admin Dose 1 TAB; Start 09/29/16 at 09:00; Status Future Hold Zinc Sulfate (Zinc Sulfate) 220 mg DAILY NGT Last administered on 10/06/16 09: 13; Admin Dose 220 MG; Start 09/29/16 at 09:00; Status Future Hold Ondansetron HCl (Zofran Inj) 4 mg Q6H PRN IV NAUSEA AND/OR VOMITING Last administered on 10/13/16 16:10; Admin Dose 4 MG; Start 09/29/16 at 07:30 Acetaminophen 650 mg 650 mg Q6H PRN GTB PAIN AND OR ELEVATED TEMP Last administered on 10/21/16 22:51; Admin Dose 650 MG; Start 10/02/16 at 08:00 Metronidazole (Flagyl 500 Mg (Pmx)) 100 ml @ 100 mls/hr Q8 IVPB Last administered on 10/23/16 14:18; Admin Dose 100 MLS/HR; Start 10/02/16 at 14:00 Midodrine 10 mg 10 mg TID@,,17 PO Last administered on 10/06/16 17:15; Admin Dose 10 MG; Start 10/06/16 at 01:00; Status Future Hold Linezolid (Zyvox 600mg/D5W (Pmx)) 300 ml @ 300 mls/hr Q12 IVPB Last administered on 10/23/16 10:05; Admin Dose 300 MLS/HR; Start 10/06/16 at 21:00 Levothyroxine Sodium (Synthroid Iv) 12.5 mcg DAILY@06 IV Last administered on 05:19; Admin Dose 12.5 MCG; Start 10/07/16 at 06:00 Metoclopramide HCl (Reglan) 5 mg Q8 IV Last administered on 10/23/16 14:18; Admin Dose 5 MG; Start 10/06/16 at 22:00 Voriconazole 200 mg 200 mg BID PO Last administered on 10/23/16 10:06; Admin Dose 200 MG; Start 10/08/16 at 21:00 Colistimethate Sodium/Sodium Chloride (Coly-Mycin/NS) 100 ml @ 200 mls/hr Q12 IVPB Last administered on 10/23/16 12:00; Admin Dose 200 MLS/HR; Start at 13:30 Lansoprazole 30 mg 30 mg BID@06,18 GTB Last administered on 10/23/16 05:17; Admin Dose 30 MG; Start 10/21/16 at 18:00 Diltiazem HCl (Cardizem-D5W 125 Mg/125 ml Drip) 125 ml @ 5 mls/hr TITRATE IV Last administered on 10/23/16 04:12; Admin Dose 5 MLS/HR; Start 10/22/16 at 07: 00 IV Flush (NS 10 ml) 10 ml PRN PRN IV IV PROTOCOL; Start 10/22/16 at 14:30 Ryder Wild DO Oct 23, 2016 16:51
--- NOTE | 2016-10-23 17:21 | CONS ---
Date/Time of Note Date/Time of Note DATE: 10/23/16 TIME: 17:20 Assessment/Plan Assessment/Plan Chief Complaint/Hosp Course SUBJECTIVE: No events, no fevers, more awake, nad \ ANTIMICROBIALS: The patient is on: 1. Zyvox. 2. IV Colistin. 3. Voriconazole. 4. Flagyl. INDWELLINGS: Trach, PEG, Cee, rectal tube. PHYSICAL EXAMINATION: GENERAL: Fragile elderly man who is noncommunicative and in no distress. HEENT: Head atraumatic, normocephalic. Sclerae anicteric. Buccal mucosa dry. NECK: Supple. Tracheostomy present. CHEST: Rise symmetrical. Breath sounds diminished to bases. HEART: S1, S2. ABDOMEN: Distended, soft. Bowel tones hypoactive. EXTREMITIES: Bilateral edema. SKIN: Multiple unstageable decubitus. ASSESSMENT: 1. Persistent sepsis. 2. 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 3. Status post urinary tract infection, pneumonia and bacteremia. 4. 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 5. Chronic encephalopathy and chronic respiratory failure. PLAN: Stable, no fevers, wbc decreasing, continue abx, local wound care. Follow recommendations of consultants. Prognosis guarded. DW staff Problems: Consultation Date/Type/Reason Admit Date/Time Sep 24, 2016 at 03:19 Initial Consult Date 09/24/16 Type of Consultation: ID Referring Provider: EFLIX BLAKE DO Exam/Review of Systems Vital Signs Vitals Vital Signs Date Time Temp Pulse Resp B/P Pulse Ox O2 Delivery O2 Flow Rate FiO2 10/23/16 16:47 109/58 10/23/16 16:16 130 10/23/16 15:44 98.6 31 95 10/23/16 13:11 30 10/19/16 21:00 Mechanical Ventilator Intake and Output 10/22/16 10/22/16 10/23/16 15:00 23:00 07:00 Intake Total 400 ml 400 ml Output Total 850 ml Balance -450 ml 400 ml Results Result Diagram: 10/23/16 0903 10/23/16 0540 Results 24 hrs Laboratory Tests Test 10/23/16 05:40 10/23/16 09:03 White Blood Count 10.1 # Red Blood Count 2.97 #L Hemoglobin 7.8 #L 7.7 L Hematocrit 26.0 #L 25.5 L Mean Corpuscular Volume 87.5 Mean Corpuscular Hemoglobin 26.3 L Mean Corpuscular Hemoglobin Concent 30.0 L Red Cell Distribution Width 18.3 H Platelet Count 41 #L Mean Platelet Volume 12.5 H Neutrophils % 71.0 Lymphocytes % 23.0 Monocytes % 6.0 Neutrophils # 7.2 Lymphocytes # 2.3 Monocytes # 0.6 Platelet Estimate PLT APPEAR ADEQUATE Clumped Platelets 3+ Sodium Level 134 L Potassium Level 4.1 Chloride Level 110 Carbon Dioxide Level 20 L Anion Gap 8 Blood Urea Nitrogen 20 Creatinine 0.97 Glucose Level 103 Calcium Level 7.0 L Medications Medications Current Medications Acetaminophen (Tylenol Supp) 650 mg Q4H PRN [place] PAIN LEVEL 1-3 OR FEVER; Start 09/24/16 at 03:00 Eye Lubricant (Artificial Tears Oph) 1 drop TID BOTH EYES Last administered on 10/23/16 14:18; Admin Dose 1 DROP; Start 09/24/16 at 09:00 Sodium Hypochlorite (Dakin'S (1/4 Strength)) 1 applic BID IRR Last administered on 10/23/16 10:05; Admin Dose 1 APPLIC; Start 09/24/16 at 21:00 Collagenase (Santyl) 1 applic DAILY TOP Last administered on 10/23/16 10:06; Admin Dose 1 APPLIC; Start 09/24/16 at 20:30 Miscellaneous Information 1 ea NOTE XX ; Start 09/24/16 at 21:00 Glucose (Glutose) 15 gm Q15M PRN PO DECREASED GLUCOSE; Start 09/24/16 at 21:00 Glucose (Glutose) 22.5 gm Q15M PRN PO DECREASED GLUCOSE; Start 09/24/16 at 21: 00 Dextrose (D50w Syringe) 25 ml Q15M PRN IV DECREASED GLUCOSE; Start 09/24/16 at 21:00 Dextrose (D50w Syringe) 50 ml Q15M PRN IV DECREASED GLUCOSE; Start 09/24/16 at 21:00 Glucagon (Glucagen) 1 mg Q15M PRN IM DECREASED GLUCOSE; Start 09/24/16 at 21:00 Glucose 15 gm 15 gm Q15M PRN BUCCAL DECREASED GLUCOSE; Start 09/24/16 at 21:00 Acetaminophen (Ofirmev 1000mg/ 100ml Iv) 100 ml @ 400 mls/hr Q6H PRN IVPB FEVER Last administered on 10/07/16 17:14; Admin Dose 400 MLS/HR; Start at 22:00 Vancomycin HCl (Vancomycin Oral Syringe) 250 mg Q6 PO Last administered on 17:15; Admin Dose 250 MG; Start 09/26/16 at 18:00; Status Future Hold Lactobacillus Acidoph/Bulgaricus (Floranex) 1 tab TID PO Last administered on 13:22; Admin Dose 1 TAB; Start 09/26/16 at 21:00; Status Future Hold Atorvastatin Calcium (Lipitor) 20 mg QHS GTB Last administered on 10/05/16 21: 42; Admin Dose 20 MG; Start 09/28/16 at 21:00; Status Future Hold Finasteride (Proscar) 5 mg DAILY GTB Last administered on 10/06/16 09:12; Admin Dose 5 MG; Start 09/29/16 at 09:00; Status Future Hold Multivitamins Therapeutic (Theragran) 1 tab DAILY GTB Last administered on 09:12; Admin Dose 1 TAB; Start 09/29/16 at 09:00; Status Future Hold Zinc Sulfate (Zinc Sulfate) 220 mg DAILY NGT Last administered on 10/06/16 09: 13; Admin Dose 220 MG; Start 09/29/16 at 09:00; Status Future Hold Ondansetron HCl (Zofran Inj) 4 mg Q6H PRN IV NAUSEA AND/OR VOMITING Last administered on 10/13/16 16:10; Admin Dose 4 MG; Start 09/29/16 at 07:30 Acetaminophen 650 mg 650 mg Q6H PRN GTB PAIN AND OR ELEVATED TEMP Last administered on 10/21/16 22:51; Admin Dose 650 MG; Start 10/02/16 at 08:00 Metronidazole (Flagyl 500 Mg (Pmx)) 100 ml @ 100 mls/hr Q8 IVPB Last administered on 10/23/16 14:18; Admin Dose 100 MLS/HR; Start 10/02/16 at 14:00 Midodrine 10 mg 10 mg TID@,,17 PO Last administered on 10/06/16 17:15; Admin Dose 10 MG; Start 10/06/16 at 01:00; Status Future Hold Linezolid (Zyvox 600mg/D5W (Pmx)) 300 ml @ 300 mls/hr Q12 IVPB Last administered on 10/23/16 10:05; Admin Dose 300 MLS/HR; Start 10/06/16 at 21:00 Levothyroxine Sodium (Synthroid Iv) 12.5 mcg DAILY@06 IV Last administered on 05:19; Admin Dose 12.5 MCG; Start 10/07/16 at 06:00 Metoclopramide HCl (Reglan) 5 mg Q8 IV Last administered on 10/23/16 14:18; Admin Dose 5 MG; Start 10/06/16 at 22:00 Voriconazole 200 mg 200 mg BID PO Last administered on 10/23/16 10:06; Admin Dose 200 MG; Start 10/08/16 at 21:00 Colistimethate Sodium/Sodium Chloride (Coly-Mycin/NS) 100 ml @ 200 mls/hr Q12 IVPB Last administered on 10/23/16 12:00; Admin Dose 200 MLS/HR; Start at 13:30 Lansoprazole 30 mg 30 mg BID@06,18 GTB Last administered on 10/23/16 05:17; Admin Dose 30 MG; Start 10/21/16 at 18:00 Diltiazem HCl (Cardizem-D5W 125 Mg/125 ml Drip) 125 ml @ 5 mls/hr TITRATE IV Last administered on 10/23/16 04:12; Admin Dose 5 MLS/HR; Start 10/22/16 at 07: 00 IV Flush (NS 10 ml) 10 ml PRN PRN IV IV PROTOCOL; Start 10/22/16 at 14:30 CHRISTOPHER MCDONOUGH NP Oct 23, 2016 17:21
[2016-10-24] VITALS (24 sets, daily range): BP systolic 91–110; BP diastolic 51–55; PULSE 114–121; RESP 14–35
[2016-10-24] MEDS: ALBUTEROL HFA 8 GM INHALER INH SCH ×3 (01:31→13:24)
[2016-10-24] MEDS: IPRATROPIUM (HFA) 12.9 GM INHALER INH SCH ×4 (01:31→19:15)
[2016-10-24] MEDS: DILTIAZEM-D5W 125MG/125ML DRIP 125 ML IV SCH (02:39)
[2016-10-24] MEDS: metroNIDAZOLE 500 MG/NS (PMX) 100 ML IVPB SCH ×3 (05:03→22:25)
[2016-10-24] MEDS: LANSOPRAZOLE 30 MG CAP GTB SCH ×2 (05:03→17:37)
[2016-10-24] MEDS: LEVOTHYROXINE 100 MCG VIAL IV SCH (05:03)
[2016-10-24] MEDS: METOCLOPRAMIDE 10 MG INJ IV SCH ×3 (05:10→22:25)
--- NOTE | 2016-10-24 07:20 | PN ---
Date/Time of Note Date/Time of Note DATE: 10/24/16 TIME: 07:18 Exam/Review of Systems Vital Signs Vitals Vital Signs Date Time Temp Pulse Resp B/P Pulse Ox O2 Delivery O2 Flow Rate FiO2 10/24/16 05:07 121 30 98 30 10/24/16 03:54 99.8 98/53 Intake and Output 10/23/16 10/23/16 10/24/16 15:00 23:00 07:00 Intake Total 700 ml 750 ml Output Total 400 ml 950 ml Balance 300 ml -200 ml Exam Results Result Diagram: 10/23/16 0903 10/23/16 0540 Results 24 hrs Laboratory Tests Test 10/23/16 09:03 Hemoglobin 7.7 L Hematocrit 25.5 L Medications Medications Current Medications Acetaminophen (Tylenol Supp) 650 mg Q4H PRN [place] PAIN LEVEL 1-3 OR FEVER; Start 09/24/16 at 03:00 Eye Lubricant (Artificial Tears Oph) 1 drop TID BOTH EYES Last administered on 10/23/16 21:04; Admin Dose 1 DROP; Start 09/24/16 at 09:00 Sodium Hypochlorite (Dakin'S (1/4 Strength)) 1 applic BID IRR Last administered on 10/23/16 21:04; Admin Dose 1 APPLIC; Start 09/24/16 at 21:00 Collagenase (Santyl) 1 applic DAILY TOP Last administered on 10/23/16 10:06; Admin Dose 1 APPLIC; Start 09/24/16 at 20:30 Miscellaneous Information 1 ea NOTE XX ; Start 09/24/16 at 21:00 Glucose (Glutose) 15 gm Q15M PRN PO DECREASED GLUCOSE; Start 09/24/16 at 21:00 Glucose (Glutose) 22.5 gm Q15M PRN PO DECREASED GLUCOSE; Start 09/24/16 at 21: 00 Dextrose (D50w Syringe) 25 ml Q15M PRN IV DECREASED GLUCOSE; Start 09/24/16 at 21:00 Dextrose (D50w Syringe) 50 ml Q15M PRN IV DECREASED GLUCOSE; Start 09/24/16 at 21:00 Glucagon (Glucagen) 1 mg Q15M PRN IM DECREASED GLUCOSE; Start 09/24/16 at 21:00 Glucose 15 gm 15 gm Q15M PRN BUCCAL DECREASED GLUCOSE; Start 09/24/16 at 21:00 Acetaminophen (Ofirmev 1000mg/ 100ml Iv) 100 ml @ 400 mls/hr Q6H PRN IVPB FEVER Last administered on 10/07/16 17:14; Admin Dose 400 MLS/HR; Start at 22:00 Vancomycin HCl (Vancomycin Oral Syringe) 250 mg Q6 PO Last administered on 17:15; Admin Dose 250 MG; Start 09/26/16 at 18:00; Status Future Hold Lactobacillus Acidoph/Bulgaricus (Floranex) 1 tab TID PO Last administered on 13:22; Admin Dose 1 TAB; Start 09/26/16 at 21:00; Status Future Hold Atorvastatin Calcium (Lipitor) 20 mg QHS GTB Last administered on 10/05/16 21: 42; Admin Dose 20 MG; Start 09/28/16 at 21:00; Status Future Hold Finasteride (Proscar) 5 mg DAILY GTB Last administered on 10/06/16 09:12; Admin Dose 5 MG; Start 09/29/16 at 09:00; Status Future Hold Multivitamins Therapeutic (Theragran) 1 tab DAILY GTB Last administered on 09:12; Admin Dose 1 TAB; Start 09/29/16 at 09:00; Status Future Hold Zinc Sulfate (Zinc Sulfate) 220 mg DAILY NGT Last administered on 10/06/16 09: 13; Admin Dose 220 MG; Start 09/29/16 at 09:00; Status Future Hold Ondansetron HCl (Zofran Inj) 4 mg Q6H PRN IV NAUSEA AND/OR VOMITING Last administered on 10/13/16 16:10; Admin Dose 4 MG; Start 09/29/16 at 07:30 Acetaminophen 650 mg 650 mg Q6H PRN GTB PAIN AND OR ELEVATED TEMP Last administered on 10/21/16 22:51; Admin Dose 650 MG; Start 10/02/16 at 08:00 Metronidazole (Flagyl 500 Mg (Pmx)) 100 ml @ 100 mls/hr Q8 IVPB Last administered on 10/24/16 05:03; Admin Dose 100 MLS/HR; Start 10/02/16 at 14:00 Midodrine 10 mg 10 mg TID@,,17 PO Last administered on 10/06/16 17:15; Admin Dose 10 MG; Start 10/06/16 at 01:00; Status Future Hold Linezolid (Zyvox 600mg/D5W (Pmx)) 300 ml @ 300 mls/hr Q12 IVPB Last administered on 10/23/16 21:04; Admin Dose 300 MLS/HR; Start 10/06/16 at 21:00 Levothyroxine Sodium (Synthroid Iv) 12.5 mcg DAILY@06 IV Last administered on 05:03; Admin Dose 12.5 MCG; Start 10/07/16 at 06:00 Metoclopramide HCl (Reglan) 5 mg Q8 IV Last administered on 10/24/16 05:10; Admin Dose 5 MG; Start 10/06/16 at 22:00 Voriconazole 200 mg 200 mg BID PO Last administered on 10/23/16 21:04; Admin Dose 200 MG; Start 10/08/16 at 21:00 Colistimethate Sodium/Sodium Chloride (Coly-Mycin/NS) 100 ml @ 200 mls/hr Q12 IVPB Last administered on 10/23/16 22:45; Admin Dose 200 MLS/HR; Start at 13:30 Lansoprazole 30 mg 30 mg BID@06,18 GTB Last administered on 10/24/16 05:03; Admin Dose 30 MG; Start 10/21/16 at 18:00 Diltiazem HCl (Cardizem-D5W 125 Mg/125 ml Drip) 125 ml @ 5 mls/hr TITRATE IV Last administered on 10/24/16 02:39; Admin Dose 5 MLS/HR; Start 10/22/16 at 07: 00 IV Flush (NS 10 ml) 10 ml PRN PRN IV IV PROTOCOL; Start 10/22/16 at 14:30 BIGG HEWITT NP Oct 24, 2016 07:20 09:03 Hemoglobin 7.7 L Hematocrit 25.5 L Medications Medications Current Medications Acetaminophen (Tylenol Supp) 650 mg Q4H PRN [place] PAIN LEVEL 1-3 OR FEVER; Start 09/24/16 at 03:00 Eye Lubricant (Artificial Tears Oph) 1 drop TID BOTH EYES Last administered on 4/19/17at 21:04; Admin Dose 1 DROP; Start 09/24/16 at 09:00 Sodium Hypochlorite (Dakin'S (1/4 Strength)) 1 applic BID IRR Last administered on 10/23/16 21:04; Admin Dose 1 APPLIC; Start 09/24/16 at 21:00 Collagenase (Santyl) 1 applic DAILY TOP Last administered on 10/23/16 10:06; Admin Dose 1 APPLIC; Start 09/24/16 at 20:30 Miscellaneous Information 1 ea NOTE XX ; Start 09/24/16 at 21:00 Glucose (Glutose) 15 gm Q15M PRN PO DECREASED GLUCOSE; Start 09/24/16 at 21:00 Glucose (Glutose) 22.5 gm Q15M PRN PO DECREASED GLUCOSE; Start 09/24/16 at 21: 00 Dextrose (D50w Syringe) 25 ml Q15M PRN IV DECREASED GLUCOSE; Start 09/24/16 at 21:00 Dextrose (D50w Syringe) 50 ml Q15M PRN IV DECREASED GLUCOSE; Start 09/24/16 at 21:00 Glucagon (Glucagen) 1 mg Q15M PRN IM DECREASED GLUCOSE; Start 09/24/16 at 21:00 Glucose 15 gm 15 gm Q15M PRN BUCCAL DECREASED GLUCOSE; Start 09/24/16 at 21:00 Acetaminophen (Ofirmev 1000mg/ 100ml Iv) 100 ml @ 400 mls/hr Q6H PRN IVPB FEVER Last administered on 10/07/16 17:14; Admin Dose 400 MLS/HR; Start at 22:00 Vancomycin HCl (Vancomycin Oral Syringe) 250 mg Q6 PO Last administered on 17:15; Admin Dose 250 MG; Start 09/26/16 at 18:00; Status Future Hold Lactobacillus Acidoph/Bulgaricus (Floranex) 1 tab TID PO Last administered on 13:22; Admin Dose 1 TAB; Start 09/26/16 at 21:00; Status Future Hold Atorvastatin Calcium (Lipitor) 20 mg QHS GTB Last administered on 10/05/16 21: 42; Admin Dose 20 MG; Start 09/28/16 at 21:00; Status Future Hold Finasteride (Proscar) 5 mg DAILY GTB Last administered on 10/06/16 09:12; Admin Dose 5 MG; Start 09/29/16 at 09:00; Status Future Hold Multivitamins Therapeutic (Theragran) 1 tab DAILY GTB Last administered on 09:12; Admin Dose 1 TAB; Start 09/29/16 at 09:00; Status Future Hold Zinc Sulfate (Zinc Sulfate) 220 mg DAILY NGT Last administered on 10/06/16 09: 13; Admin Dose 220 MG; Start 09/29/16 at 09:00; Status Future Hold Ondansetron HCl (Zofran Inj) 4 mg Q6H PRN IV NAUSEA AND/OR VOMITING Last administered on 10/13/16 16:10; Admin Dose 4 MG; Start 09/29/16 at 07:30 Acetaminophen 650 mg 650 mg Q6H PRN GTB PAIN AND OR ELEVATED TEMP Last administered on 10/21/16 22:51; Admin Dose 650 MG; Start 10/02/16 at 08:00 Metronidazole (Flagyl 500 Mg (Pmx)) 100 ml @ 100 mls/hr Q8 IVPB Last administered on 10/24/16 05:03; Admin Dose 100 MLS/HR; Start 10/02/16 at 14:00 Midodrine 10 mg 10 mg TID@,, PO Last administered on 10/06/16 17:15; Admin Dose 10 MG; Start 10/06/16 at 01:00; Status Future Hold Linezolid (Zyvox 600mg/D5W (Pmx)) 300 ml @ 300 mls/hr Q12 IVPB Last administered on 10/23/16 21:04; Admin Dose 300 MLS/HR; Start 10/06/16 at 21:00 Levothyroxine Sodium (Synthroid Iv) 12.5 mcg DAILY@06 IV Last administered on 05:03; Admin Dose 12.5 MCG; Start 10/07/16 at 06:00 Metoclopramide HCl (Reglan) 5 mg Q8 IV Last administered on 10/24/16 05:10; Admin Dose 5 MG; Start 10/06/16 at 22:00 Voriconazole 200 mg 200 mg BID PO Last administered on 10/23/16 21:04; Admin Dose 200 MG; Start 10/08/16 at 21:00 Colistimethate Sodium/Sodium Chloride (Coly-Mycin/NS) 100 ml @ 200 mls/hr Q12 IVPB Last administered on 10/23/16 22:45; Admin Dose 200 MLS/HR; Start at 13:30 Lansoprazole 30 mg 30 mg BID@06,18 GTB Last administered on 10/24/16 05:03; Admin Dose 30 MG; Start 10/21/16 at 18:00 Diltiazem HCl (Cardizem-D5W 125 Mg/125 ml Drip) 125 ml @ 5 mls/hr TITRATE IV Last administered on 10/24/16 02:39; Admin Dose 5 MLS/HR; Start 10/22/16 at 07: 00 IV Flush (NS 10 ml) 10 ml PRN PRN IV IV PROTOCOL; Start 10/22/16 at 14:30 BIGG HEWITT NP Oct 24, 2016 07:20
[2016-10-24 08:18] LABS: ADD SCAN DIFF NO
[2016-10-24 08:23] LABS: ABNORMAL IP MESSAGE 1; HEMOGLOBIN 7.5 g/dl (14.0-18.0); MEAN CORPUSCULAR HEMOGLOBIN 26.4 pg (29.0-33.0); MEAN PLATELET VOLUME 11.8 fl (7.4-10.4); RED BLOOD COUNT 2.84 10^6/ul (4.70-6.10); RED CELL DISTRIBUTION WIDTH 18.6 % (11.5-14.5); WHITE BLOOD COUNT 11.3 10^3/ul (4.8-10.8)
[2016-10-24 08:41] LABS: CREATININE 1.12 mg/dl (0.61-1.24)
[2016-10-24] MEDS: SODIUM HYPOCHLORITE 0.125% 473 ML BTL IRR SCH ×2 (08:41→21:08)
[2016-10-24] MEDS: ARTIFICIAL TEARS 15 ML OPH BOTH EYES SCH ×3 (08:41→21:07)
[2016-10-24] MEDS: COLLAGENASE 30 GM TUBE TOP SCH (08:41)
[2016-10-24 08:42] LABS: CALCIUM 6.8 mg/dl (8.4-10.2)
[2016-10-24] MEDS: VORICONAZOLE 200 MG TAB PO SCH (08:42)
[2016-10-24] MEDS: LINEZOLID 600 MG/D5W (PMX) 300 ML IVPB SCH ×2 (08:42→21:07)
[2016-10-24 10:08] LABS: PLATELET COUNT 220 10^3/UL (140-415)
[2016-10-24 10:22] LABS: PLATELET COUNT 222 10^3/UL (140-415)
[2016-10-24] MEDS: COLISTIMETHATE 75 MG in SOD CHLORIDE 0.9% 100 ML IVPB SCH ×2 (10:41→21:07)
[2016-10-24] MEDS ORDERED: MAGNESIUM SULFATE 3 GM in SOD CHLORIDE 0.9% 100 ML IVPB ONE ×2 (11:30→12:30)
--- NOTE | 2016-10-24 11:58 | CONS ---
Date/Time of Note Date/Time of Note DATE: 10/24/16 TIME: 11:56 Assessment/Plan Assessment/Plan Additional Assessment/Plan Ventilator settings are AC of 14, tidal volume 5 oh, PEEP of 5, 30% FiO2. Assessment recommendations; next 1. Patient admitted for severe sepsis from sacral decubitus ulcer currently on broad-spectrum antibiotic coverage. 2. Chronic respiratory failure due to multi-infarct dementia patient remains ventilator dependent. Current treatment. Prognosis is poor. Consultation Date/Type/Reason Admit Date/Time Sep 24, 2016 at 03:19 Initial Consult Date 09/24/16 Type of Consultation: Pulmonary Referring Provider: FELIX BLAKE DO 24 HR Interval Summary Free Text/Dictation Patient condition is stable. Remains hemodynamically stable. Remains essentially unresponsive to any stimuli. Exam; elderly male, on ventilator via tracheostomy currently in no distress. Exam/Review of Systems Vital Signs Vitals Vital Signs Date Time Temp Pulse Resp B/P Pulse Ox O2 Delivery O2 Flow Rate FiO2 10/24/16 11:39 98.5 120 18 94/51 96 10/24/16 11:20 30 Intake and Output 10/23/16 10/23/16 10/24/16 15:00 23:00 07:00 Intake Total 700 ml 750 ml Output Total 400 ml 950 ml Balance 300 ml -200 ml Exam HEENT exam; supple neck, tracheostomy in place with clean insertion site. Patient has a multiple carious teeth. No neck masses. No thyromegaly. Pupils are small bilaterally. Chest examination; diminished but clear breath sounds bilaterally. S1-S2 audible, no murmurs. Regular rhythm. Abdomen examination; soft, non-distended. No organomegaly. Extremity exam; no peripheral edema. Patient has contractures involving all 4 extremities. Back examination; patient is a dressing applied over the sacrum. REGULATORY AUDITOR examination : patient is unresponsive to any commands. Results Result Diagram: 10/24/16 0748 10/24/16 0748 Results 24 hrs Laboratory Tests Test 10/24/16 07:48 White Blood Count 11.3 H Red Blood Count 2.84 L Hemoglobin 7.5 L Hematocrit 25.0 L Mean Corpuscular Volume 88.0 Mean Corpuscular Hemoglobin 26.4 L Mean Corpuscular Hemoglobin Concent 30.0 L Red Cell Distribution Width 18.6 H Platelet Count 220 # Mean Platelet Volume 11.8 H Sodium Level 134 L Potassium Level 4.0 Chloride Level 107 Carbon Dioxide Level 19 L Anion Gap 12 Blood Urea Nitrogen 24 H Creatinine 1.12 Glucose Level 109 Calcium Level 6.8 L Magnesium Level 1.1 L Medications Medications Current Medications Acetaminophen (Tylenol Supp) 650 mg Q4H PRN [place] PAIN LEVEL 1-3 OR FEVER; Start 09/24/16 at 03:00 Eye Lubricant (Artificial Tears Oph) 1 drop TID BOTH EYES Last administered on 10/24/16 08:41; Admin Dose 1 DROP; Start 09/24/16 at 09:00 Sodium Hypochlorite (Dakin'S (1/4 Strength)) 1 applic BID IRR Last administered on 10/24/16 08:41; Admin Dose 1 APPLIC; Start 09/24/16 at 21:00 Collagenase (Santyl) 1 applic DAILY TOP Last administered on 10/24/16 08:41; Admin Dose 1 APPLIC; Start 09/24/16 at 20:30 Miscellaneous Information 1 ea NOTE XX ; Start 09/24/16 at 21:00 Glucose (Glutose) 15 gm Q15M PRN PO DECREASED GLUCOSE; Start 09/24/16 at 21:00 Glucose (Glutose) 22.5 gm Q15M PRN PO DECREASED GLUCOSE; Start 09/24/16 at 21: 00 Dextrose (D50w Syringe) 25 ml Q15M PRN IV DECREASED GLUCOSE; Start 09/24/16 at 21:00 Dextrose (D50w Syringe) 50 ml Q15M PRN IV DECREASED GLUCOSE; Start 09/24/16 at 21:00 Glucagon (Glucagen) 1 mg Q15M PRN IM DECREASED GLUCOSE; Start 09/24/16 at 21:00 Glucose 15 gm 15 gm Q15M PRN BUCCAL DECREASED GLUCOSE; Start 09/24/16 at 21:00 Acetaminophen (Ofirmev 1000mg/ 100ml Iv) 100 ml @ 400 mls/hr Q6H PRN IVPB FEVER Last administered on 10/07/16 17:14; Admin Dose 400 MLS/HR; Start at 22:00 Vancomycin HCl (Vancomycin Oral Syringe) 250 mg Q6 PO Last administered on 17:15; Admin Dose 250 MG; Start 09/26/16 at 18:00; Status Future Hold Lactobacillus Acidoph/Bulgaricus (Floranex) 1 tab TID PO Last administered on 13:22; Admin Dose 1 TAB; Start 09/26/16 at 21:00; Status Future Hold Atorvastatin Calcium (Lipitor) 20 mg QHS GTB Last administered on 10/05/16 21: 42; Admin Dose 20 MG; Start 09/28/16 at 21:00; Status Future Hold Finasteride (Proscar) 5 mg DAILY GTB Last administered on 10/06/16 09:12; Admin Dose 5 MG; Start 09/29/16 at 09:00; Status Future Hold Multivitamins Therapeutic (Theragran) 1 tab DAILY GTB Last administered on 09:12; Admin Dose 1 TAB; Start 09/29/16 at 09:00; Status Future Hold Zinc Sulfate (Zinc Sulfate) 220 mg DAILY NGT Last administered on 10/06/16 09: 13; Admin Dose 220 MG; Start 09/29/16 at 09:00; Status Future Hold Ondansetron HCl (Zofran Inj) 4 mg Q6H PRN IV NAUSEA AND/OR VOMITING Last administered on 10/13/16 16:10; Admin Dose 4 MG; Start 09/29/16 at 07:30 Acetaminophen 650 mg 650 mg Q6H PRN GTB PAIN AND OR ELEVATED TEMP Last administered on 10/21/16 22:51; Admin Dose 650 MG; Start 10/02/16 at 08:00 Metronidazole (Flagyl 500 Mg (Pmx)) 100 ml @ 100 mls/hr Q8 IVPB Last administered on 10/24/16 05:03; Admin Dose 100 MLS/HR; Start 10/02/16 at 14:00 Midodrine 10 mg 10 mg TID@,,17 PO Last administered on 10/06/16 17:15; Admin Dose 10 MG; Start 10/06/16 at 01:00; Status Future Hold Linezolid (Zyvox 600mg/D5W (Pmx)) 300 ml @ 300 mls/hr Q12 IVPB Last administered on 10/24/16 08:42; Admin Dose 300 MLS/HR; Start 10/06/16 at 21:00 Levothyroxine Sodium (Synthroid Iv) 12.5 mcg DAILY@06 IV Last administered on 05:03; Admin Dose 12.5 MCG; Start 10/07/16 at 06:00 Metoclopramide HCl (Reglan) 5 mg Q8 IV Last administered on 10/24/16 05:10; Admin Dose 5 MG; Start 10/06/16 at 22:00 Voriconazole 200 mg 200 mg BID PO Last administered on 10/24/16 08:42; Admin Dose 200 MG; Start 10/08/16 at 21:00 Colistimethate Sodium/Sodium Chloride (Coly-Mycin/NS) 100 ml @ 200 mls/hr Q12 IVPB Last administered on 10/24/16 10:41; Admin Dose 200 MLS/HR; Start at 13:30 Lansoprazole 30 mg 30 mg BID@06,18 GTB Last administered on 10/24/16 05:03; Admin Dose 30 MG; Start 10/21/16 at 18:00 Diltiazem HCl (Cardizem-D5W 125 Mg/125 ml Drip) 125 ml @ 5 mls/hr TITRATE IV Last administered on 10/24/16 02:39; Admin Dose 5 MLS/HR; Start 10/22/16 at 07: 00 IV Flush 10 ml 10 ml PRN PRN IV IV PROTOCOL; Start 10/22/16 at 14:30 Magnesium Sulfate/ Sodium Chloride (Magnesium Sulfate/NS) 106 ml @ 35.333 mls/ hr ONCE ONCE IVPB ; Start 10/24/16 at 11:30; Stop 10/24/16 at 14:29 MAIN SALTER Oct 24, 2016 11:58
--- NOTE | 2016-10-24 12:02 | CONS ---
Date/Time of Note Date/Time of Note DATE: 10/24/16 TIME: 12:01 Assessment/Plan Assessment/Plan Additional Assessment/Plan 1. Acute kidney injury on chronic kidney disease. due to ATN from septic shock 2. septic shock on levophed 3. severe metabolic acidosis s/p [place] drip, now HCO3 stable 4. Patient with intermittent episodes of tachycardia, telemetry reviewed with brief episodes of atrial fibrillation, sinus tachycardia.- on IV cardizem 5. History of chronic respiratory failure, status post tracheostomy, on ventilator. 6. History of G-tube. 7. Poor mental status due to the previous cerebrovascular accident. 8. History of dementia. 9. History of hypertension. 10. Hypocalcemia with Ca 6.9- likely pseudohypocalcemia, because corrected Ca with Serum albumin of 1.6 is 8.8-no symptoms of hypocalcemia 11. Hypomagnesemia with mag 1.1 PLAN: on Tube feeding, Magnesium sulfate 3 gram IV x 1 dose now Hb 7.5 On IV Coly-mycin and IV zyvox, need to monitor renal function and K will follow up Consultation Date/Type/Reason Admit Date/Time Sep 24, 2016 at 03:19 Initial Consult Date 09/24/16 Type of Consultation: NEPHROLOGY Referring Provider: FELIX BLAKE DO 24 HR Interval Summary Free Text/Dictation no acute events, Na 134, mag 1.1, Bp stable Exam/Review of Systems Vital Signs Vitals Vital Signs Date Time Temp Pulse Resp B/P Pulse Ox O2 Delivery O2 Flow Rate FiO2 10/24/16 11:39 98.5 120 18 94/51 96 10/24/16 11:20 30 Intake and Output 10/23/16 10/23/16 10/24/16 15:00 23:00 07:00 Intake Total 700 ml 750 ml Output Total 400 ml 950 ml Balance 300 ml -200 ml Exam GENERAL: Chronically ill-appearing, elderly man who is in no distress. HEENT: Head atraumatic, normocephalic. Sclerae anicteric. Buccal mucosa dry. NECK: Supple. Tracheostomy present. CHEST: bilateral Clear BS, no wheezing HEART: S1, S2. ABDOMEN: Obese, soft, bowel tones present. EXTREMITIES: No cyanosis. Bilateral edema., +scrotal edema stable SKIN: With multiple unstageable decubitus. Results Result Diagram: 10/24/16 0748 10/24/16 0748 Results 24 hrs Laboratory Tests Test 10/24/16 07:48 White Blood Count 11.3 H Red Blood Count 2.84 L Hemoglobin 7.5 L Hematocrit 25.0 L Mean Corpuscular Volume 88.0 Mean Corpuscular Hemoglobin 26.4 L Mean Corpuscular Hemoglobin Concent 30.0 L Red Cell Distribution Width 18.6 H Platelet Count 220 # Mean Platelet Volume 11.8 H Sodium Level 134 L Potassium Level 4.0 Chloride Level 107 Carbon Dioxide Level 19 L Anion Gap 12 Blood Urea Nitrogen 24 H Creatinine 1.12 Glucose Level 109 Calcium Level 6.8 L Magnesium Level 1.1 L Medications Medications Current Medications Acetaminophen (Tylenol Supp) [address] PAIN LEVEL 1-3 OR FEVER; Start 09/24/16 at 03:00 Eye Lubricant (Artificial Tears Oph) 1 drop TID BOTH EYES Last administered on 10/24/16 08:41; Admin Dose 1 DROP; Start 09/24/16 at 09:00 Sodium Hypochlorite (Dakin'S (1/4 Strength)) 1 applic BID IRR Last administered on 10/24/16 08:41; Admin Dose 1 APPLIC; Start 09/24/16 at 21:00 Collagenase (Santyl) 1 applic DAILY TOP Last administered on 10/24/16 08:41; Admin Dose 1 APPLIC; Start 09/24/16 at 20:30 Miscellaneous Information 1 ea NOTE XX ; Start 09/24/16 at 21:00 Glucose (Glutose) 15 gm Q15M PRN PO DECREASED GLUCOSE; Start 09/24/16 at 21:00 Glucose (Glutose) 22.5 gm Q15M PRN PO DECREASED GLUCOSE; Start 09/24/16 at 21: 00 Dextrose (D50w Syringe) 25 ml Q15M PRN IV DECREASED GLUCOSE; Start 09/24/16 at 21:00 Dextrose (D50w Syringe) 50 ml Q15M PRN IV DECREASED GLUCOSE; Start 09/24/16 at 21:00 Glucagon (Glucagen) 1 mg Q15M PRN IM DECREASED GLUCOSE; Start 09/24/16 at 21:00 Glucose 15 gm 15 gm Q15M PRN BUCCAL DECREASED GLUCOSE; Start 09/24/16 at 21:00 Acetaminophen (Ofirmev 1000mg/ 100ml Iv) 100 ml @ 400 mls/hr Q6H PRN IVPB FEVER Last administered on 10/07/16 17:14; Admin Dose 400 MLS/HR; Start at 22:00 Vancomycin HCl (Vancomycin Oral Syringe) 250 mg Q6 PO Last administered on 17:15; Admin Dose 250 MG; Start 09/26/16 at 18:00; Status Future Hold Lactobacillus Acidoph/Bulgaricus (Floranex) 1 tab TID PO Last administered on 13:22; Admin Dose 1 TAB; Start 09/26/16 at 21:00; Status Future Hold Atorvastatin Calcium (Lipitor) 20 mg QHS GTB Last administered on 10/05/16 21: 42; Admin Dose 20 MG; Start 09/28/16 at 21:00; Status Future Hold Finasteride (Proscar) 5 mg DAILY GTB Last administered on 10/06/16 09:12; Admin Dose 5 MG; Start 09/29/16 at 09:00; Status Future Hold Multivitamins Therapeutic (Theragran) 1 tab DAILY GTB Last administered on 09:12; Admin Dose 1 TAB; Start 09/29/16 at 09:00; Status Future Hold Zinc Sulfate (Zinc Sulfate) 220 mg DAILY NGT Last administered on 10/06/16 09: 13; Admin Dose 220 MG; Start 09/29/16 at 09:00; Status Future Hold Ondansetron HCl (Zofran Inj) 4 mg Q6H PRN IV NAUSEA AND/OR VOMITING Last administered on 10/13/16 16:10; Admin Dose 4 MG; Start 09/29/16 at 07:30 Acetaminophen 650 mg 650 mg Q6H PRN GTB PAIN AND OR ELEVATED TEMP Last administered on 10/21/16 22:51; Admin Dose 650 MG; Start 10/02/16 at 08:00 Metronidazole (Flagyl 500 Mg (Pmx)) 100 ml @ 100 mls/hr Q8 IVPB Last administered on 10/24/16 05:03; Admin Dose 100 MLS/HR; Start 10/02/16 at 14:00 Midodrine 10 mg 10 mg TID@,,17 PO Last administered on 10/06/16 17:15; Admin Dose 10 MG; Start 10/06/16 at 01:00; Status Future Hold Linezolid (Zyvox 600mg/D5W (Pmx)) 300 ml @ 300 mls/hr Q12 IVPB Last administered on 10/24/16 08:42; Admin Dose 300 MLS/HR; Start 10/06/16 at 21:00 Levothyroxine Sodium (Synthroid Iv) 12.5 mcg DAILY@06 IV Last administered on 05:03; Admin Dose 12.5 MCG; Start 10/07/16 at 06:00 Metoclopramide HCl (Reglan) 5 mg Q8 IV Last administered on 10/24/16 05:10; Admin Dose 5 MG; Start 10/06/16 at 22:00 Voriconazole 200 mg 200 mg BID PO Last administered on 10/24/16 08:42; Admin Dose 200 MG; Start 10/08/16 at 21:00 Colistimethate Sodium/Sodium Chloride (Coly-Mycin/NS) 100 ml @ 200 mls/hr Q12 IVPB Last administered on 10/24/16 10:41; Admin Dose 200 MLS/HR; Start at 13:30 Lansoprazole 30 mg 30 mg BID@06,18 GTB Last administered on 10/24/16 05:03; Admin Dose 30 MG; Start 10/21/16 at 18:00 Diltiazem HCl (Cardizem-D5W 125 Mg/125 ml Drip) 125 ml @ 5 mls/hr TITRATE IV Last administered on 10/24/16 02:39; Admin Dose 5 MLS/HR; Start 10/22/16 at 07: 00 IV Flush 10 ml 10 ml PRN PRN IV IV PROTOCOL; Start 10/22/16 at 14:30 Magnesium Sulfate/ Sodium Chloride (Magnesium Sulfate/NS) 106 ml @ 35.333 mls/ hr ONCE ONCE IVPB Last administered on 10/24/16 12:00; Admin Dose 35.333 MLS/ HR; Start 10/24/16 at 11:30; Stop 10/24/16 at 14:29 MAGGIE DINERO MD Oct 24, 2016 12:02
--- NOTE | 2016-10-24 13:03 | PN ---
Date/Time of Note Date/Time of Note DATE: 10/24/16 TIME: 12:59 Assessment/Plan VTE Prophylaxis VTE Prophylaxis Intervention: heparin Lines/Catheters IV Catheter Type (from Nrs): PICC Line Central line still needed: Yes Urinary Cath still in place: Yes Reason Cath still needed: urinary retention Assessment/Plan Chief Complaint/Hosp Course A/P: 1. Sepsis with underlying septic shock secondary to infected sacral decubitus wound. The wound culture has been positive for Klebsiella pneumoniae, Acinetobacter baumannii, vancomycin-resistant Enterococcus and Staph aureus. Continue antimicrobials as per infectious diseases. S/P IV pressors. 2. Infected sacral decubitus ulcer. Continue pain management. Continue local dressing changes as per wound care consultants. 3. Chronic respiratory failure. Status post tracheostomy and vent dependent. Continue inhaled bronchodilators. Pulmonary following the patient. 4. Acute renal failure. Resolved. Most probably secondary to hemodynamics versus from acute tubular necrosis. Continue to use nephrotoxic medications with caution. 5. 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 Continue antimicrobials as per ID. 6. 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 Continue supportive care. 7. Hypothyroidism. Continue Synthroid. 8. Dysphagia secondary to encephalopathy. Continue aspiration precautions. Continue G tube feedings. 9. Normocytic anemia. Continue to monitor the H and H closely. Transfuse as needed. 10. Leukocytosis with thrombocytosis. Resolved. The patient being followed by Hematology. Continue to monitor. 11. Ileus. Resolved. Continue Reglan. Being followed by gastroenterology and Surgery. 12. Moderate . Continue monitoring. 13. DVT prophylaxis. Subcutaneous heparin. 14. Gastrointestinal prophylaxis. Proton pump inhibitors. 15 Fluid, electrolytes and nutrition - replete low Mag today. Continue G tube feedings. Problems: Exam/Review of Systems Vital Signs Vitals Vital Signs Date Time Temp Pulse Resp B/P Pulse Ox O2 Delivery O2 Flow Rate FiO2 10/24/16 12:24 118 10/24/16 11:39 98.5 18 94/51 96 10/24/16 11:20 30 Intake and Output 10/23/16 10/23/16 10/24/16 15:00 23:00 07:00 Intake Total 700 ml 750 ml Output Total 400 ml 950 ml Balance 300 ml -200 ml Exam GENERAL: This is an elderly, frail-looking male lying in bed in no apparent distress. HEENT: Head normocephalic and atraumatic. Eyes: Anicteric sclerae. Conjunctivae clear. ENT: Nasal septum is midline. Oral mucosa is dry. NECK: Supple. Tracheostomy midline. RESPIRATORY: A tracheostomy connected to mechanical ventilator. CARDIAC: Regular rate and rhythm with a grade III/ systolic ejection murmur. ABDOMEN: Soft, nontender and nondistended. G-tube in place. GENITOURINARY: Cee catheter in place. EXTREMITIES: No cyanosis, no clubbing. Peripheral pulses. Bilateral upper extremity edema. Bilateral foot edema. Contracted bilateral upper and bilateral lower extremities. NEUROLOGIC: The patient is obtunded. Results Result Diagram: 10/24/16 0748 10/24/16 0748 Results 24 hrs Laboratory Tests Test 10/24/16 07:48 White Blood Count 11.3 H Red Blood Count 2.84 L Hemoglobin 7.5 L Hematocrit 25.0 L Mean Corpuscular Volume 88.0 Mean Corpuscular Hemoglobin 26.4 L Mean Corpuscular Hemoglobin Concent 30.0 L Red Cell Distribution Width 18.6 H Platelet Count 220 # Mean Platelet Volume 11.8 H Sodium Level 134 L Potassium Level 4.0 Chloride Level 107 Carbon Dioxide Level 19 L Anion Gap 12 Blood Urea Nitrogen 24 H Creatinine 1.12 Glucose Level 109 Calcium Level 6.8 L Magnesium Level 1.1 L Medications Medications Current Medications Acetaminophen (Tylenol Supp) 650 mg Q4H PRN [place] PAIN LEVEL 1-3 OR FEVER; Start 09/24/16 at 03:00 Eye Lubricant (Artificial Tears Oph) 1 drop TID BOTH EYES Last administered on 10/24/16 08:41; Admin Dose 1 DROP; Start 09/24/16 at 09:00 Sodium Hypochlorite (Dakin'S (1/4 Strength)) 1 applic BID IRR Last administered on 10/24/16 08:41; Admin Dose 1 APPLIC; Start 09/24/16 at 21:00 Collagenase (Santyl) 1 applic DAILY TOP Last administered on 10/24/16 08:41; Admin Dose 1 APPLIC; Start 09/24/16 at 20:30 Miscellaneous Information 1 ea NOTE XX ; Start 09/24/16 at 21:00 Glucose (Glutose) 15 gm Q15M PRN PO DECREASED GLUCOSE; Start 09/24/16 at 21:00 Glucose (Glutose) 22.5 gm Q15M PRN PO DECREASED GLUCOSE; Start 09/24/16 at 21: 00 Dextrose (D50w Syringe) 25 ml Q15M PRN IV DECREASED GLUCOSE; Start 09/24/16 at 21:00 Dextrose (D50w Syringe) 50 ml Q15M PRN IV DECREASED GLUCOSE; Start 09/24/16 at 21:00 Glucagon (Glucagen) 1 mg Q15M PRN IM DECREASED GLUCOSE; Start 09/24/16 at 21:00 Glucose 15 gm 15 gm Q15M PRN BUCCAL DECREASED GLUCOSE; Start 09/24/16 at 21:00 Acetaminophen (Ofirmev 1000mg/ 100ml Iv) 100 ml @ 400 mls/hr Q6H PRN IVPB FEVER Last administered on 10/07/16 17:14; Admin Dose 400 MLS/HR; Start at 22:00 Vancomycin HCl (Vancomycin Oral Syringe) 250 mg Q6 PO Last administered on 17:15; Admin Dose 250 MG; Start 09/26/16 at 18:00; Status Future Hold Lactobacillus Acidoph/Bulgaricus (Floranex) 1 tab TID PO Last administered on 13:22; Admin Dose 1 TAB; Start 09/26/16 at 21:00; Status Future Hold Atorvastatin Calcium (Lipitor) 20 mg QHS GTB Last administered on 10/05/16 21: 42; Admin Dose 20 MG; Start 09/28/16 at 21:00; Status Future Hold Finasteride (Proscar) 5 mg DAILY GTB Last administered on 10/06/16 09:12; Admin Dose 5 MG; Start 09/29/16 at 09:00; Status Future Hold Multivitamins Therapeutic (Theragran) 1 tab DAILY GTB Last administered on 09:12; Admin Dose 1 TAB; Start 09/29/16 at 09:00; Status Future Hold Zinc Sulfate (Zinc Sulfate) 220 mg DAILY NGT Last administered on 10/06/16 09: 13; Admin Dose 220 MG; Start 09/29/16 at 09:00; Status Future Hold Ondansetron HCl (Zofran Inj) 4 mg Q6H PRN IV NAUSEA AND/OR VOMITING Last administered on 10/13/16 16:10; Admin Dose 4 MG; Start 09/29/16 at 07:30 Acetaminophen 650 mg 650 mg Q6H PRN GTB PAIN AND OR ELEVATED TEMP Last administered on 10/21/16 22:51; Admin Dose 650 MG; Start 10/02/16 at 08:00 Metronidazole (Flagyl 500 Mg (Pmx)) 100 ml @ 100 mls/hr Q8 IVPB Last administered on 10/24/16 05:03; Admin Dose 100 MLS/HR; Start 10/02/16 at 14:00 Midodrine 10 mg 10 mg TID@,,17 PO Last administered on 10/06/16 17:15; Admin Dose 10 MG; Start 10/06/16 at 01:00; Status Future Hold Linezolid (Zyvox 600mg/D5W (Pmx)) 300 ml @ 300 mls/hr Q12 IVPB Last administered on 10/24/16 08:42; Admin Dose 300 MLS/HR; Start 10/06/16 at 21:00 Levothyroxine Sodium (Synthroid Iv) 12.5 mcg DAILY@06 IV Last administered on 05:03; Admin Dose 12.5 MCG; Start 10/07/16 at 06:00 Metoclopramide HCl (Reglan) 5 mg Q8 IV Last administered on 10/24/16 05:10; Admin Dose 5 MG; Start 10/06/16 at 22:00 Voriconazole 200 mg 200 mg BID PO Last administered on 10/24/16 08:42; Admin Dose 200 MG; Start 10/08/16 at 21:00 Colistimethate Sodium/Sodium Chloride (Coly-Mycin/NS) 100 ml @ 200 mls/hr Q12 IVPB Last administered on 10/24/16 10:41; Admin Dose 200 MLS/HR; Start at 13:30 Lansoprazole 30 mg 30 mg BID@06,18 GTB Last administered on 10/24/16 05:03; Admin Dose 30 MG; Start 10/21/16 at 18:00 Diltiazem HCl (Cardizem-D5W 125 Mg/125 ml Drip) 125 ml @ 5 mls/hr TITRATE IV Last administered on 10/24/16 02:39; Admin Dose 5 MLS/HR; Start 10/22/16 at 07: 00 IV Flush 10 ml 10 ml PRN PRN IV IV PROTOCOL; Start 10/22/16 at 14:30 Magnesium Sulfate/ Sodium Chloride (Magnesium Sulfate/NS) 106 ml @ 35.333 mls/ hr ONCE ONCE IVPB Last administered on 10/24/16t 12:00; Admin Dose 35.333 MLS/ HR; Start 10/24/16 at 11:30; Stop 10/24/16 at 14:29 AL SAMANO Oct 24, 2016 13:03
[2016-10-24 13:38] LABS: EOSINOPHILS # 0.1 10^3/ul (0.0-0.5); LYMPHOCYTES # 2.7 10^3/ul (0.8-2.9); MONOCYTE # 1.4 10^3/ul (0.3-0.9); NEUTROPHIL # 7.1 10^3/ul (1.6-7.5)
[2016-10-24 13:39] LABS: PLATELET ESTIMATE PLT APPEAR ADEQUATE; PLATELETS CLUMPS MANY
--- NOTE | 2016-10-24 13:46 | PN ---
DATE: 10/24/2016 PALLIATIVE CARE FOLLOWUP NOTE Mr. Wise is just waiting for placement in a subacute facility. There has been essentially no clifton e in his overall clinical course or neurological condition. He remains vegetative. The last time I talked to the patient's , she did change his code status from FULL CODE to DO NOT RESUSCITATE. That was difficult, as she is committed to him and felt that he always wanted to live, but not in a moribund condition as he currently is, but it is very difficult for her to let him go. She refused to allow us to speak to other family members. My suggestion is to have case management try and hav e the patient admitted to a primary care physician in the community who is palliative care appropria te. Dictated By: SITA OCONNOR MD, LP/ELIZABETH Conf#: [id number] DID#: [id number]
--- NOTE | 2016-10-24 15:39 | CONS ---
Date/Time of Note Date/Time of Note DATE: 10/24/16 TIME: 15:37 Assessment/Plan Assessment/Plan Chief Complaint/Hosp Course SUBJECTIVE: Awake, looks comfortable, no fevers ANTIMICROBIALS: 1. Zyvox. 2. IV Colistin. 3. Voriconazole. 4. Flagyl. 5. PO Vanco INDWELLINGS: Trach, PEG, Cee, rectal tube. PHYSICAL EXAMINATION: GENERAL: Fragile elderly man who is noncommunicative and in no distress. HEENT: Head atraumatic, normocephalic. Sclerae anicteric. Buccal mucosa dry. NECK: Supple. Tracheostomy present. CHEST: Rise symmetrical. Breath sounds diminished to bases. HEART: S1, S2. ABDOMEN: Distended, soft. Bowel tones hypoactive. EXTREMITIES: Bilateral edema. SKIN: Multiple unstageable decubitus. ASSESSMENT: 1. Resolviong sepsis. 2. 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 3. Status post urinary tract infection, pneumonia and bacteremia. 4. 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 5. Chronic encephalopathy and chronic respiratory failure. 6. ARF PLAN: Stable, no fevers, dc Vfend, continue abx, local wound care, monitor renal f-n, may need dc Colistin. DW staff Problems: Consultation Date/Type/Reason Admit Date/Time Sep 24, 2016 at 03:19 Initial Consult Date 09/24/16 Type of Consultation: id Referring Provider: FELIX BLAKE DO Exam/Review of Systems Vital Signs Vitals Vital Signs Date Time Temp Pulse Resp B/P Pulse Ox O2 Delivery O2 Flow Rate FiO2 10/24/16 15:11 98.4 77 18 91/55 95 10/24/16 13:25 30 Intake and Output 10/23/16 10/23/16 10/24/16 15:00 23:00 07:00 Intake Total 700 ml 750 ml Output Total 400 ml 950 ml Balance 300 ml -200 ml Results Result Diagram: 10/24/16 0748 10/24/16 0748 Results 24 hrs Laboratory Tests Test 10/24/16 07:48 White Blood Count 11.3 H Red Blood Count 2.84 L Hemoglobin 7.5 L Hematocrit 25.0 L Mean Corpuscular Volume 88.0 Mean Corpuscular Hemoglobin 26.4 L Mean Corpuscular Hemoglobin Concent 30.0 L Red Cell Distribution Width 18.6 H Platelet Count 220 # Mean Platelet Volume 11.8 H Neutrophils % 63.0 Lymphocytes % 24.0 Monocytes % 12.0 H Eosinophils % 1.0 Neutrophils # 7.1 Lymphocytes # 2.7 Monocytes # 1.4 H Eosinophils # 0.1 Platelet Estimate PLT APPEAR ADEQUATE Clumped Platelets MANY Sodium Level 134 L Potassium Level 4.0 Chloride Level 107 Carbon Dioxide Level 19 L Anion Gap 12 Blood Urea Nitrogen 24 H Creatinine 1.12 Glucose Level 109 Calcium Level 6.8 L Magnesium Level 1.1 L Medications Medications Current Medications Acetaminophen (Tylenol Supp) 650 mg Q4H PRN [place] PAIN LEVEL 1-3 OR FEVER; Start 09/24/16 at 03:00 Eye Lubricant (Artificial Tears Oph) 1 drop TID BOTH EYES Last administered on 10/24/16 13:40; Admin Dose 1 DROP; Start 09/24/16 at 09:00 Sodium Hypochlorite (Dakin'S (1/4 Strength)) 1 applic BID IRR Last administered on 10/24/16 08:41; Admin Dose 1 APPLIC; Start 09/24/16 at 21:00 Collagenase (Santyl) 1 applic DAILY TOP Last administered on 10/24/16 08:41; Admin Dose 1 APPLIC; Start 09/24/16 at 20:30 Miscellaneous Information 1 ea NOTE XX ; Start 09/24/16 at 21:00 Glucose (Glutose) 15 gm Q15M PRN PO DECREASED GLUCOSE; Start 09/24/16 at 21:00 Glucose (Glutose) 22.5 gm Q15M PRN PO DECREASED GLUCOSE; Start 09/24/16 at 21: 00 Dextrose (D50w Syringe) 25 ml Q15M PRN IV DECREASED GLUCOSE; Start 09/24/16 at 21:00 Dextrose (D50w Syringe) 50 ml Q15M PRN IV DECREASED GLUCOSE; Start 09/24/16 at 21:00 Glucagon (Glucagen) 1 mg Q15M PRN IM DECREASED GLUCOSE; Start 09/24/16 at 21:00 Glucose 15 gm 15 gm Q15M PRN BUCCAL DECREASED GLUCOSE; Start 09/24/16 at 21:00 Acetaminophen (Ofirmev 1000mg/ 100ml Iv) 100 ml @ 400 mls/hr Q6H PRN IVPB FEVER Last administered on 10/07/16 17:14; Admin Dose 400 MLS/HR; Start at 22:00 Vancomycin HCl (Vancomycin Oral Syringe) 250 mg Q6 PO Last administered on 17:15; Admin Dose 250 MG; Start 09/26/16 at 18:00; Status Future Hold Lactobacillus Acidoph/Bulgaricus (Floranex) 1 tab TID PO Last administered on 13:22; Admin Dose 1 TAB; Start 09/26/16 at 21:00; Status Future Hold Atorvastatin Calcium (Lipitor) 20 mg QHS GTB Last administered on 10/05/16 21: 42; Admin Dose 20 MG; Start 09/28/16 at 21:00; Status Future Hold Finasteride (Proscar) 5 mg DAILY GTB Last administered on 10/06/16 09:12; Admin Dose 5 MG; Start 09/29/16 at 09:00; Status Future Hold Multivitamins Therapeutic (Theragran) 1 tab DAILY GTB Last administered on 09:12; Admin Dose 1 TAB; Start 09/29/16 at 09:00; Status Future Hold Zinc Sulfate (Zinc Sulfate) 220 mg DAILY NGT Last administered on 10/06/16 09: 13; Admin Dose 220 MG; Start 09/29/16 at 09:00; Status Future Hold Ondansetron HCl (Zofran Inj) 4 mg Q6H PRN IV NAUSEA AND/OR VOMITING Last administered on 10/13/16 16:10; Admin Dose 4 MG; Start 09/29/16 at 07:30 Acetaminophen 650 mg 650 mg Q6H PRN GTB PAIN AND OR ELEVATED TEMP Last administered on 10/21/16 22:51; Admin Dose 650 MG; Start 10/02/16 at 08:00 Metronidazole (Flagyl 500 Mg (Pmx)) 100 ml @ 100 mls/hr Q8 IVPB Last administered on 10/24/16 05:03; Admin Dose 100 MLS/HR; Start 10/02/16 at 14:00 Midodrine 10 mg 10 mg TID@,,17 PO Last administered on 10/06/16 17:15; Admin Dose 10 MG; Start 10/06/16 at 01:00; Status Future Hold Linezolid (Zyvox 600mg/D5W (Pmx)) 300 ml @ 300 mls/hr Q12 IVPB Last administered on 10/24/16 08:42; Admin Dose 300 MLS/HR; Start 10/06/16 at 21:00 Levothyroxine Sodium (Synthroid Iv) 12.5 mcg DAILY@06 IV Last administered on 05:03; Admin Dose 12.5 MCG; Start 10/07/16 at 06:00 Metoclopramide HCl (Reglan) 5 mg Q8 IV Last administered on 10/24/16 13:39; Admin Dose 5 MG; Start 10/06/16 at 22:00 Voriconazole 200 mg 200 mg BID PO Last administered on 10/24/16 08:42; Admin Dose 200 MG; Start 10/08/16 at 21:00 Colistimethate Sodium/Sodium Chloride (Coly-Mycin/NS) 100 ml @ 200 mls/hr Q12 IVPB Last administered on 10/24/16 10:41; Admin Dose 200 MLS/HR; Start at 13:30 Lansoprazole 30 mg 30 mg BID@06,18 GTB Last administered on 10/24/16 05:03; Admin Dose 30 MG; Start 10/21/16 at 18:00 Diltiazem HCl (Cardizem-D5W 125 Mg/125 ml Drip) 125 ml @ 5 mls/hr TITRATE IV Last administered on 10/24/16 02:39; Admin Dose 5 MLS/HR; Start 10/22/16 at 07: 00 IV Flush (NS 10 ml) 10 ml PRN PRN IV IV PROTOCOL; Start 10/22/16 at 14:30 CHRISTOPHER MCDONOUGH TITLE CLERK Oct 24, 2016 15:39
--- NOTE | 2016-10-24 16:47 | CONS ---
Date/Time of Note Date/Time of Note DATE: 10/24/16 TIME: 16:45 Assessment/Plan Assessment/Plan Additional Assessment/Plan Sepsis Preserved ejection fraction Moderate aortic stenosis Respiratory failure/Tracheostomy Coronary artery disease Anemia -Magnesium has already been supplemented, patient remains tachycardic. Would consider blood transfusion. Consultation Date/Type/Reason Admit Date/Time Sep 24, 2016 at 03:19 Initial Consult Date 09/24/16 Type of Consultation: cv Referring Provider: FELIX BLAKE DO 24 HR Interval Summary Free Text/Dictation Patient seen and examined Exam/Review of Systems Vital Signs Vitals Vital Signs Date Time Temp Pulse Resp B/P Pulse Ox O2 Delivery O2 Flow Rate FiO2 10/24/16 15:30 115 23 100 30 10/24/16 15:11 98.4 91/55 Intake and Output 10/23/16 10/23/16 10/24/16 14:59 22:59 06:59 Intake Total 400 ml 860 ml 750 ml Output Total 400 ml 950 ml Balance 400 ml 460 ml -200 ml Exam No apparent distress Head: normocephalic Neck: other (Tracheostomy) Respiratory: other (Coarse breath sounds bilaterally, no wheezing) Cardiovascular: other (S1-S2 heard), regular rate and rhythm Gastrointestinal: bowel sounds, distended, soft Extremities: edema Results Result Diagram: 10/24/16 0748 10/24/16 0748 Results 24 hrs Laboratory Tests Test 10/24/16 07:48 White Blood Count 11.3 H Red Blood Count 2.84 L Hemoglobin 7.5 L Hematocrit 25.0 L Mean Corpuscular Volume 88.0 Mean Corpuscular Hemoglobin 26.4 L Mean Corpuscular Hemoglobin Concent 30.0 L Red Cell Distribution Width 18.6 H Platelet Count 220 # Mean Platelet Volume 11.8 H Neutrophils % 63.0 Lymphocytes % 24.0 Monocytes % 12.0 H Eosinophils % 1.0 Neutrophils # 7.1 Lymphocytes # 2.7 Monocytes # 1.4 H Eosinophils # 0.1 Platelet Estimate PLT APPEAR ADEQUATE Clumped Platelets MANY Sodium Level 134 L Potassium Level 4.0 Chloride Level 107 Carbon Dioxide Level 19 L Anion Gap 12 Blood Urea Nitrogen 24 H Creatinine 1.12 Glucose Level 109 Calcium Level 6.8 L Magnesium Level 1.1 L Medications Medications Current Medications Acetaminophen (Tylenol Supp) 650 mg Q4H PRN [place] PAIN LEVEL 1-3 OR FEVER; Start 3/21/17 at 03:00 Eye Lubricant (Artificial Tears Oph) 1 drop TID BOTH EYES Last administered on 10/24/16 13:40; Admin Dose 1 DROP; Start 09/24/16 at 09:00 Sodium Hypochlorite (Dakin'S (1/4 Strength)) 1 applic BID IRR Last administered on 10/24/16 08:41; Admin Dose 1 APPLIC; Start 09/24/16 at 21:00 Collagenase (Santyl) 1 applic DAILY TOP Last administered on 10/24/16 08:41; Admin Dose 1 APPLIC; Start 09/24/16 at 20:30 Miscellaneous Information 1 ea NOTE XX ; Start 09/24/16 at 21:00 Glucose (Glutose) 15 gm Q15M PRN PO DECREASED GLUCOSE; Start 09/24/16 at 21:00 Glucose (Glutose) 22.5 gm Q15M PRN PO DECREASED GLUCOSE; Start 09/24/16 at 21: 00 Dextrose (D50w Syringe) 25 ml Q15M PRN IV DECREASED GLUCOSE; Start 09/24/16 at 21:00 Dextrose (D50w Syringe) 50 ml Q15M PRN IV DECREASED GLUCOSE; Start 09/24/16 at 21:00 Glucagon (Glucagen) 1 mg Q15M PRN IM DECREASED GLUCOSE; Start 09/24/16 at 21:00 Glucose 15 gm 15 gm Q15M PRN BUCCAL DECREASED GLUCOSE; Start 09/24/16 at 21:00 Acetaminophen (Ofirmev 1000mg/ 100ml Iv) 100 ml @ 400 mls/hr Q6H PRN IVPB FEVER Last administered on 10/07/16 17:14; Admin Dose 400 MLS/HR; Start at 22:00 Vancomycin HCl (Vancomycin Oral Syringe) 250 mg Q6 PO Last administered on 17:15; Admin Dose 250 MG; Start 09/26/16 at 18:00; Status Future Hold Lactobacillus Acidoph/Bulgaricus (Floranex) 1 tab TID PO Last administered on 13:22; Admin Dose 1 TAB; Start 09/26/16 at 21:00; Status Future Hold Atorvastatin Calcium (Lipitor) 20 mg QHS GTB Last administered on 10/05/16 21: 42; Admin Dose 20 MG; Start 09/28/16 at 21:00; Status Future Hold Finasteride (Proscar) 5 mg DAILY GTB Last administered on 10/06/16 09:12; Admin Dose 5 MG; Start 09/29/16 at 09:00; Status Future Hold Multivitamins Therapeutic (Theragran) 1 tab DAILY GTB Last administered on 09:12; Admin Dose 1 TAB; Start 09/29/16 at 09:00; Status Future Hold Zinc Sulfate (Zinc Sulfate) 220 mg DAILY NGT Last administered on 10/06/16 09: 13; Admin Dose 220 MG; Start 09/29/16 at 09:00; Status Future Hold Ondansetron HCl (Zofran Inj) 4 mg Q6H PRN IV NAUSEA AND/OR VOMITING Last administered on 10/13/16 16:10; Admin Dose 4 MG; Start 09/29/16 at 07:30 Acetaminophen 650 mg 650 mg Q6H PRN GTB PAIN AND OR ELEVATED TEMP Last administered on 10/21/16 22:51; Admin Dose 650 MG; Start 10/02/16 at 08:00 Metronidazole (Flagyl 500 Mg (Pmx)) 100 ml @ 100 mls/hr Q8 IVPB Last administered on 10/24/16 15:40; Admin Dose 100 MLS/HR; Start 10/02/16 at 14:00 Midodrine 10 mg 10 mg TID@,,17 PO Last administered on 10/06/16 17:15; Admin Dose 10 MG; Start 10/06/16 at 01:00; Status Future Hold Linezolid (Zyvox 600mg/D5W (Pmx)) 300 ml @ 300 mls/hr Q12 IVPB Last administered on 10/24/16 08:42; Admin Dose 300 MLS/HR; Start 10/06/16 at 21:00 Levothyroxine Sodium (Synthroid Iv) 12.5 mcg DAILY@06 IV Last administered on 05:03; Admin Dose 12.5 MCG; Start 10/07/16 at 06:00 Metoclopramide HCl 5 mg 5 mg Q8 IV Last administered on 10/24/16 13:39; Admin Dose 5 MG; Start 10/06/16 at 22:00 Colistimethate Sodium/Sodium Chloride (Coly-Mycin/NS) 100 ml @ 200 mls/hr Q12 IVPB Last administered on 10/24/16 10:41; Admin Dose 200 MLS/HR; Start at 13:30 Lansoprazole 30 mg 30 mg BID@06,18 GTB Last administered on 10/24/16 05:03; Admin Dose 30 MG; Start 10/21/16 at 18:00 Diltiazem HCl (Cardizem-D5W 125 Mg/125 ml Drip) 125 ml @ 5 mls/hr TITRATE IV Last administered on 10/24/16 02:39; Admin Dose 5 MLS/HR; Start 10/22/16 at 07: 00 IV Flush (NS 10 ml) 10 ml PRN PRN IV IV PROTOCOL; Start 10/22/16 at 14:30 Ryder Wild DO Oct 24, 2016 16:47
[2016-10-24] MEDS ORDERED: ALBUTEROL 18 GM INHALER INH PRN ×2 (17:20→17:30)
--- NOTE | 2016-10-24 17:53 | CONS ---
Date/Time of Note Date/Time of Note DATE: 10/24/16 TIME: 17:52 Assessment/Plan Assessment/Plan Chief Complaint/Hosp Course ANEMIA - NEAR- MICROCYTIC WITH INCREASED RDW DROP H/H DURING HOSPITALIZATION + ACD TRANSFUSE PRBC TO KEEP HB MORE THAN 8 TRANSFUSE NEEDED GI F-UP Stool OB, negative Monitor H&H, transfuse 2 units for hemoglobin less than 8 LEUKOCYTOSIS- REACTIVE CONT ATB FOR SEPSIS THROMBOCYTOSIS REACTIVE SHOULD IMPROVE WITH RESOLUTION OF SEPSIS Severe sepsis with septic shock 2/2 Decub ulcers and/or UTI and/or PNA: stable, off pressor support Severe hypernatremic dehydration Acute renal failure 2/2 ATN from dehydration UTI Multifocal pneumonia Encephalopathy ?acute versus acute on chronic (baseline unknown) Hypokalemia Problems: Consultation Date/Type/Reason Admit Date/Time Sep 24, 2016 at 03:19 Initial Consult Date 09/24/16 Type of Consultation: [facility] Referring Provider: FELIX BLAKE DO 24 HR Interval Summary Free Text/Dictation stable no new events Exam/Review of Systems Vital Signs Vitals Vital Signs Date Time Temp Pulse Resp B/P Pulse Ox O2 Delivery O2 Flow Rate FiO2 10/24/16 17:34 111 23 96 30 10/24/16 15:11 98.4 91/55 Intake and Output 10/23/16 10/23/16 10/24/16 15:00 23:00 07:00 Intake Total 400 ml 860 ml 750 ml Output Total 400 ml 950 ml Balance 400 ml 460 ml -200 ml Exam GENERAL: Chronically ill-appearing, elderly man who is in no distress. HEENT: Head atraumatic, normocephalic. Sclerae anicteric. Buccal mucosa dry. NECK: Supple. Tracheostomy present. CHEST: bilateral Clear BS, no wheezing HEART: S1, S2. ABDOMEN: Obese, soft, bowel tones present. EXTREMITIES: No cyanosis. Bilateral edema., +scrotal edema stable SKIN: With multiple unstageable decubitus. Results Result Diagram: 10/24/16 0748 10/24/16 0748 Results 24 hrs Laboratory Tests Test 10/24/16 07:48 White Blood Count 11.3 H Red Blood Count 2.84 L Hemoglobin 7.5 L Hematocrit 25.0 L Mean Corpuscular Volume 88.0 Mean Corpuscular Hemoglobin 26.4 L Mean Corpuscular Hemoglobin Concent 30.0 L Red Cell Distribution Width 18.6 H Platelet Count 220 # Mean Platelet Volume 11.8 H Neutrophils % 63.0 Lymphocytes % 24.0 Monocytes % 12.0 H Eosinophils % 1.0 Neutrophils # 7.1 Lymphocytes # 2.7 Monocytes # 1.4 H Eosinophils # 0.1 Platelet Estimate PLT APPEAR ADEQUATE Clumped Platelets MANY Sodium Level 134 L Potassium Level 4.0 Chloride Level 107 Carbon Dioxide Level 19 L Anion Gap 12 Blood Urea Nitrogen 24 H Creatinine 1.12 Glucose Level 109 Calcium Level 6.8 L Magnesium Level 1.1 L Medications Medications Current Medications Acetaminophen (Tylenol Supp) 650 mg Q4H PRN [place] PAIN LEVEL 1-3 OR FEVER; Start 09/24/16 at 03:00 Eye Lubricant (Artificial Tears Oph) 1 drop TID BOTH EYES Last administered on 10/24/16 13:40; Admin Dose 1 DROP; Start 09/24/16 at 09:00 Sodium Hypochlorite (Dakin'S (1/4 Strength)) 1 applic BID IRR Last administered on 10/24/16 08:41; Admin Dose 1 APPLIC; Start 09/24/16 at 21:00 Collagenase (Santyl) 1 applic DAILY TOP Last administered on 10/24/16 08:41; Admin Dose 1 APPLIC; Start 09/24/16 at 20:30 Miscellaneous Information 1 ea NOTE XX ; Start 09/24/16 at 21:00 Glucose (Glutose) 15 gm Q15M PRN PO DECREASED GLUCOSE; Start 09/24/16 at 21:00 Glucose (Glutose) 22.5 gm Q15M PRN PO DECREASED GLUCOSE; Start 09/24/16 at 21: 00 Dextrose (D50w Syringe) 25 ml Q15M PRN IV DECREASED GLUCOSE; Start 09/24/16 at 21:00 Dextrose (D50w Syringe) 50 ml Q15M PRN IV DECREASED GLUCOSE; Start 09/24/16 at 21:00 Glucagon (Glucagen) 1 mg Q15M PRN IM DECREASED GLUCOSE; Start 09/24/16 at 21:00 Glucose (Glutose) 15 gm Q15M PRN BUCCAL DECREASED GLUCOSE; Start 09/24/16 at 21 :00 Vancomycin HCl (Vancomycin Oral Syringe) 250 mg Q6 PO Last administered on 17:15; Admin Dose 250 MG; Start 09/26/16 at 18:00; Status Future Hold Lactobacillus Acidoph/Bulgaricus (Floranex) 1 tab TID PO Last administered on 13:22; Admin Dose 1 TAB; Start 09/26/16 at 21:00; Status Future Hold Atorvastatin Calcium (Lipitor) 20 mg QHS GTB Last administered on 10/05/16 21: 42; Admin Dose 20 MG; Start 09/28/16 at 21:00; Status Future Hold Finasteride (Proscar) 5 mg DAILY GTB Last administered on 10/06/16 09:12; Admin Dose 5 MG; Start 09/29/16 at 09:00; Status Future Hold Multivitamins Therapeutic (Theragran) 1 tab DAILY GTB Last administered on 09:12; Admin Dose 1 TAB; Start 09/29/16 at 09:00; Status Future Hold Zinc Sulfate (Zinc Sulfate) 220 mg DAILY NGT Last administered on 10/06/16 09: 13; Admin Dose 220 MG; Start 09/29/16 at 09:00; Status Future Hold Ondansetron HCl (Zofran Inj) 4 mg Q6H PRN IV NAUSEA AND/OR VOMITING Last administered on 10/13/16 16:10; Admin Dose 4 MG; Start 09/29/16 at 07:30 Acetaminophen 650 mg 650 mg Q6H PRN GTB PAIN AND OR ELEVATED TEMP Last administered on 10/21/16 22:51; Admin Dose 650 MG; Start 10/02/16 at 08:00 Metronidazole (Flagyl 500 Mg (Pmx)) 100 ml @ 100 mls/hr Q8 IVPB Last administered on 10/24/16 15:40; Admin Dose 100 MLS/HR; Start 10/02/16 at 14:00 Midodrine 10 mg 10 mg TID@,,17 PO Last administered on 10/06/16 17:15; Admin Dose 10 MG; Start 10/06/16 at 01:00; Status Future Hold Linezolid (Zyvox 600mg/D5W (Pmx)) 300 ml @ 300 mls/hr Q12 IVPB Last administered on 10/24/16 08:42; Admin Dose 300 MLS/HR; Start 10/06/16 at 21:00 Levothyroxine Sodium (Synthroid Iv) 12.5 mcg DAILY@06 IV Last administered on 05:03; Admin Dose 12.5 MCG; Start 10/07/16 at 06:00 Metoclopramide HCl 5 mg 5 mg Q8 IV Last administered on 10/24/16 13:39; Admin Dose 5 MG; Start 10/06/16 at 22:00 Colistimethate Sodium/Sodium Chloride (Coly-Mycin/NS) 100 ml @ 200 mls/hr Q12 IVPB Last administered on 10/24/16 10:41; Admin Dose 200 MLS/HR; Start at 13:30 Lansoprazole 30 mg 30 mg BID@06,18 GTB Last administered on 10/24/16 17:37; Admin Dose 30 MG; Start 10/21/16 at 18:00 Diltiazem HCl (Cardizem-D5W 125 Mg/125 ml Drip) 125 ml @ 5 mls/hr TITRATE IV Last administered on 10/24/16 02:39; Admin Dose 5 MLS/HR; Start 10/22/16 at 07: 00 IV Flush (NS 10 ml) 10 ml PRN PRN IV IV PROTOCOL; Start 10/22/16 at 14:30 SCOTT RODRIGUES MD Oct 24, 2016 17:53
[2016-10-24] MEDS: ALBUTEROL 18 GM INHALER INH SCH (19:15)
--- NOTE | 2016-10-24 21:01 | PN ---
Date/Time of Note Date/Time of Note DATE: 10/24/16 TIME: 20:59 Assessment/Plan Lines/Catheters IV Catheter Type (from [facility]): PICC Line Cee in Place (from [facility]): Yes Assessment/Plan Chief Complaint/Hosp Course 1. Shock, septic (uti, pna, wound). -Judicious fluid management -Supportive measures -Antibiotics 2. Multiple decubitus ulcerations with necrotic tissue and deep tissue injury -Offload -Local care -Vitamin C -Eventual nutritional optimization -Debridement when medically cleared 3. Contracted state with functional quadriplegia -Offloading -Nutritional optimization when possible 4. Anemia -Monitor 5. Ventilator dependent respiratory failure -Ventilator management and pulmonary toilet 6. Renal insufficiency -Judicious fluid management -Avoid nephrotoxic agents 7. Coronary artery disease and history of non-ST elevation [place] -Cardiac optimization 8. Thrombocytopenia -medical optimization Thank you Problems: Subjective 24 Hr Interval Summary Tachycardia. Fever. Leukocytosis. No chills. No cough. No seizure. No rash. No blood rectum. No bloating. No seizures. No pyuria. Exam/Review of Systems Vital Signs Vitals Vital Signs Date Time Temp Pulse Resp B/P Pulse Ox O2 Delivery O2 Flow Rate FiO2 10/24/16 17:34 111 23 96 30 10/24/16 15:11 98.4 91/55 Intake and Output 10/23/16 10/23/16 10/24/16 15:00 23:00 07:00 Intake Total 400 ml 860 ml 750 ml Output Total 400 ml 950 ml Balance 400 ml 460 ml -200 ml Exam Free Text/Dictation Constitutional: No alert, No oriented Psych: No nl mood/affect Head: atraumatic, normocephalic Eyes: nl conjunctiva, No EOMI, No icteric ENMT: mucosa pink and moist, nl external ears & nose Neck: jvd, other (Trach in place), No non-tender, No supple Respiratory: No congested cough, No labored breathing Cardiovascular: No regular rate and rhythm Gastrointestinal: non-tender, other (PEG in place), soft, No rebound or guarding Musculoskeletal: No joint tenderness, No nl extremities to inspection, No nl gait and stance Extremities: No calf tenderness, No cyanosis Neurological: No nl mental status, No nl speech, No nl strength Skin: rash or lesions (Multiple decubitus ulcerations with debris, necrotic tissue, deep tissue injury), No diaphoresis, No nl turgor Lymph: nontender Results Result Diagram: 10/24/16 0748 10/24/16 0748 EVA GUARDADO MD Oct 24, 2016 21:01
[2016-10-25] VITALS (26 sets, daily range): BP systolic 81–118; BP diastolic 46–61; PULSE 109–126; RESP 14–29
[2016-10-25] MEDS: ALBUTEROL 18 GM INHALER INH SCH ×4 (01:15→20:00)
[2016-10-25] MEDS: IPRATROPIUM (HFA) 12.9 GM INHALER INH SCH ×4 (01:16→20:00)
[2016-10-25] MEDS: DILTIAZEM-D5W 125MG/125ML DRIP 125 ML IV SCH ×2 (03:48→11:24)
[2016-10-25] MEDS: metroNIDAZOLE 500 MG/NS (PMX) 100 ML IVPB SCH ×3 (05:09→22:04)
[2016-10-25] MEDS: LANSOPRAZOLE 30 MG CAP GTB SCH ×2 (05:09→18:06)
[2016-10-25] MEDS: METOCLOPRAMIDE 10 MG INJ IV SCH ×3 (05:09→22:04)
[2016-10-25] MEDS: LEVOTHYROXINE 100 MCG VIAL IV SCH (05:09)
[2016-10-25 06:48] LABS: ADD SCAN DIFF NO
[2016-10-25 07:23] LABS: BASOPHIL # 0.1 10^3/ul (0.0-0.1); BASOPHILS % 0.4 % (0.0-2.0); EOSINOPHILS # 0.2 10^3/ul (0.0-0.5); EOSINOPHILS % 1.3 % (0.0-7.0); HEMATOCRIT 26.6 % (42.0-52.0); HEMOGLOBIN 8.4 g/dl (14.0-18.0); LYMPHOCYTES # 2.8 10^3/ul (0.8-2.9); LYMPHOCYTES % 16.4 % (15.0-51.0); MEAN CORPUSCULAR HEMOGLOBIN 27.2 pg (29.0-33.0); MEAN CORPUSCULAR HGB CONC 31.6 g/dl (32.0-37.0); MEAN CORPUSCULAR VOLUME 86.1 fl (82.0-101.0); MEAN PLATELET VOLUME 12.2 fl (7.4-10.4); MONOCYTE # 1.4 10^3/ul (0.3-0.9); MONOCYTES % 8.3 % (0.0-11.0); NEUTROPHIL # 12.2 10^3/ul (1.6-7.5); NEUTROPHILS % 73.1 % (39.0-77.0); PLATELET COUNT 330 10^3/UL (140-415); RED BLOOD COUNT 3.09 10^6/ul (4.70-6.10); WHITE BLOOD COUNT 16.7 10^3/ul (4.8-10.8)
[2016-10-25 07:52] LABS: MAGNESIUM 1.6 mg/dl (1.7-2.5); PHOSPHORUS 4.1 mg/dl (2.5-4.9)
[2016-10-25 07:53] LABS: CALCIUM 7.1 mg/dl (8.4-10.2); CREATININE 1.2 mg/dl (0.61-1.24); POTASSIUM 4.3 mmol/L (3.5-5.1)
--- NOTE | 2016-10-25 08:46 | PN ---
DATE: 10/25/2016 SUBJECTIVE: The patient's condition is unchanged and he does not communicate and express any sympto ms or complaints. OBJECTIVE: VITAL SIGNS: His temperature is 99.6, blood pressure 92/61. The pulse is 134, respirations 22. EXTREMITIES AND GENITOURINARY: The patient does have contractures of the lower extremities and he h as significant penoscrotal edema. It is very difficult, in fact, to see the scrotal area because of his contractures, and the Cee catheter is draining clear urine. LABORATORY DATA: CBC shows a white count of 16.7, hemoglobin 8.4, hematocrit 26.6. The BUN is 28, creatinine 1.2. Sodium 133, potassium 4.3, chloride 109, CO2 of 19. Urine culture from October 19 was no growth after 48 hours. IMPRESSION: Penoscrotal edema. PLAN: To continue to try to elevate the scrotum and the penis on a towel all the time, and also put a pillow between his knees so the contracture of his extremities do not cause him to have ulcers on his knees and also squeeze his genital area. Dictated By: MISHEL WOODWARD/ELIZABETH Conf#: [id number] DID#: [id number]
[2016-10-25] MEDS: ARTIFICIAL TEARS 15 ML OPH BOTH EYES SCH ×3 (09:03→20:46)
[2016-10-25] MEDS: COLLAGENASE 30 GM TUBE TOP SCH (09:04)
[2016-10-25] MEDS: COLISTIMETHATE 75 MG in SOD CHLORIDE 0.9% 100 ML IVPB SCH ×2 (09:04→20:46)
[2016-10-25] MEDS: SODIUM HYPOCHLORITE 0.125% 473 ML BTL IRR SCH ×2 (09:04→20:46)
--- NOTE | 2016-10-25 09:31 | RADRPT ---
Vent Rate: 129 bpm RR Interval: 0 msec FL Interval: 0 msec QRS Duration: 104 msec QT Interval: 324 msec QTC Interval: 474 msec P-R-T Motley: 0 - -6 - 0 degrees Accelerated Junctional rhythm Low voltage QRS Nonspecific T wave abnormality Abnormal ECG Electronically Signed By: Francis Fernandez [id number]
--- NOTE | 2016-10-25 09:42 | PN ---
Date/Time of Note Date/Time of Note DATE: 10/25/16 TIME: 09:40 Assessment/Plan VTE Prophylaxis VTE Prophylaxis Intervention: heparin Lines/Catheters [facility] PICC Line Central line still needed: Yes Urinary Cath still in place: Yes Reason Cath still needed: urinary retention Assessment/Plan Chief Complaint/Hosp Course A/P: 1. Sepsis with underlying septic shock secondary to infected sacral decubitus wound. The wound culture has been positive for Klebsiella pneumoniae, Acinetobacter baumannii, vancomycin-resistant Enterococcus and Staph aureus. Continue antimicrobials as per infectious diseases. S/P IV pressors. 2. Infected sacral decubitus ulcer. Continue pain management. Continue local dressing changes as per wound care consultants. 3. Chronic respiratory failure. Status post tracheostomy and vent dependent. Continue inhaled bronchodilators. Pulmonary following the patient. 4. Acute renal failure. Resolved. Most probably secondary to hemodynamics versus from acute tubular necrosis. Continue to use nephrotoxic medications with caution. 5. 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 Continue antimicrobials as per ID. 6. 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 Continue supportive care. 7. Hypothyroidism. Continue Synthroid. 8. Dysphagia secondary to encephalopathy. Continue aspiration precautions. Continue G tube feedings. 9. Normocytic anemia. Continue to monitor the H and H closely. Transfuse as needed. 10. Leukocytosis with thrombocytosis. Resolved. The patient being followed by Hematology. Continue to monitor. 11. Ileus. Resolved. Continue Reglan. Being followed by gastroenterology and Surgery. 12. Moderate . Continue monitoring. 13. DVT prophylaxis. Subcutaneous heparin. 14. Gastrointestinal prophylaxis. Proton pump inhibitors. 15 Fluid, electrolytes and nutrition - replete low Mag today. Continue G tube feedings. Problems: Subjective 24 Hr Interval Summary Free Text/Dictation Pt with tachycardia last night up to 140's and started on cardizem IV last night. Exam/Review of Systems Vital Signs Vitals Vital Signs Date Time Temp Pulse Resp B/P Pulse Ox O2 Delivery O2 Flow Rate FiO2 10/25/16 09:26 122 10/25/16 07:44 99.6 22 93/61 94 10/25/16 07:40 30 Intake and Output 10/24/16 10/24/16 10/25/16 15:00 23:00 07:00 Intake Total 400 ml 700 ml 400 ml Output Total 600 ml 700 ml Balance 400 ml 100 ml -300 ml Exam GENERAL: This is an elderly, frail-looking male lying in bed in no apparent distress. HEENT: Head normocephalic and atraumatic. Eyes: Anicteric sclerae. Conjunctivae clear. ENT: Nasal septum is midline. Oral mucosa is dry. NECK: Supple. Tracheostomy midline. RESPIRATORY: A tracheostomy connected to mechanical ventilator. CARDIAC: Regular rate and rhythm with a grade III/ systolic ejection murmur. ABDOMEN: Soft, nontender and nondistended. G-tube in place. GENITOURINARY: Cee catheter in place. EXTREMITIES: No cyanosis, no clubbing. Peripheral pulses. Bilateral upper extremity edema. Bilateral foot edema. Contracted bilateral upper and bilateral lower extremities. NEUROLOGIC: The patient is obtunded. Results Result Diagram: 10/25/16 0550 10/25/16 0550 Results 24 hrs Laboratory Tests Test 10/25/16 05:50 White Blood Count 16.7 #H Red Blood Count 3.09 L Hemoglobin 8.4 L Hematocrit 26.6 L Mean Corpuscular Volume 86.1 Mean Corpuscular Hemoglobin 27.2 L Mean Corpuscular Hemoglobin Concent 31.6 L Red Cell Distribution Width 19.0 H Platelet Count 330 # Mean Platelet Volume 12.2 H Neutrophils % 73.1 Lymphocytes % 16.4 Monocytes % 8.3 Eosinophils % 1.3 Basophils % 0.4 Nucleated Red Blood Cells % 0.0 Neutrophils # 12.2 H Lymphocytes # 2.8 Monocytes # 1.4 H Eosinophils # 0.2 Basophils # 0.1 Nucleated Red Blood Cells # 0.0 Sodium Level 133 L Potassium Level 4.3 Chloride Level 109 Carbon Dioxide Level 19 L Anion Gap 9 Blood Urea Nitrogen 28 H Creatinine 1.20 Glucose Level 74 Calcium Level 7.1 L Phosphorus Level 4.1 Magnesium Level 1.6 L Medications Medications Current Medications Acetaminophen (Tylenol Supp) 650 mg Q4H PRN [place] PAIN LEVEL 1-3 OR FEVER; Start 09/24/16 at 03:00 Eye Lubricant (Artificial Tears Oph) 1 drop TID BOTH EYES Last administered on 10/25/16 09:03; Admin Dose 1 DROP; Start 09/24/16 at 09:00 Sodium Hypochlorite (Dakin'S (1/4 Strength)) 1 applic BID IRR Last administered on 10/25/16 09:04; Admin Dose 1 APPLIC; Start 09/24/16 at 21:00 Collagenase (Santyl) 1 applic DAILY TOP Last administered on 10/25/16 09:04; Admin Dose 1 APPLIC; Start 09/24/16 at 20:30 Miscellaneous Information 1 ea NOTE XX ; Start 09/24/16 at 21:00 Glucose (Glutose) 15 gm Q15M PRN PO DECREASED GLUCOSE; Start 09/24/16 at 21:00 Glucose (Glutose) 22.5 gm Q15M PRN PO DECREASED GLUCOSE; Start 09/24/16 at 21: 00 Dextrose (D50w Syringe) 25 ml Q15M PRN IV DECREASED GLUCOSE; Start 09/24/16 at 21:00 Dextrose (D50w Syringe) 50 ml Q15M PRN IV DECREASED GLUCOSE; Start 09/24/16 at 21:00 Glucagon (Glucagen) 1 mg Q15M PRN IM DECREASED GLUCOSE; Start 09/24/16 at 21:00 Glucose (Glutose) 15 gm Q15M PRN BUCCAL DECREASED GLUCOSE; Start 09/24/16 at 21 :00 Vancomycin HCl (Vancomycin Oral Syringe) 250 mg Q6 PO Last administered on 17:15; Admin Dose 250 MG; Start 09/26/16 at 18:00; Status Future Hold Lactobacillus Acidoph/Bulgaricus (Floranex) 1 tab TID PO Last administered on 13:22; Admin Dose 1 TAB; Start 09/26/16 at 21:00; Status Future Hold Atorvastatin Calcium (Lipitor) 20 mg QHS GTB Last administered on 10/05/16 21: 42; Admin Dose 20 MG; Start 09/28/16 at 21:00; Status Future Hold Finasteride (Proscar) 5 mg DAILY GTB Last administered on 10/06/16 09:12; Admin Dose 5 MG; Start 09/29/16 at 09:00; Status Future Hold Multivitamins Therapeutic (Theragran) 1 tab DAILY GTB Last administered on 09:12; Admin Dose 1 TAB; Start 09/29/16 at 09:00; Status Future Hold Zinc Sulfate (Zinc Sulfate) 220 mg DAILY NGT Last administered on 10/06/16 09: 13; Admin Dose 220 MG; Start 09/29/16 at 09:00; Status Future Hold Ondansetron HCl (Zofran Inj) 4 mg Q6H PRN IV NAUSEA AND/OR VOMITING Last administered on 10/13/16 16:10; Admin Dose 4 MG; Start 09/29/16 at 07:30 Acetaminophen 650 mg 650 mg Q6H PRN GTB PAIN AND OR ELEVATED TEMP Last administered on 10/21/16 22:51; Admin Dose 650 MG; Start 10/02/16 at 08:00 Metronidazole (Flagyl 500 Mg (Pmx)) 100 ml @ 100 mls/hr Q8 IVPB Last administered on 10/25/16 05:09; Admin Dose 100 MLS/HR; Start 10/02/16 at 14:00 Midodrine 10 mg 10 mg TID@,, PO Last administered on 10/06/16 17:15; Admin Dose 10 MG; Start 10/06/16 at 01:00; Status Future Hold Linezolid (Zyvox 600mg/D5W (Pmx)) 300 ml @ 300 mls/hr Q12 IVPB Last administered on 10/24/16 21:07; Admin Dose 300 MLS/HR; Start 10/06/16 at 21:00 Levothyroxine Sodium (Synthroid Iv) 12.5 mcg DAILY@06 IV Last administered on 05:09; Admin Dose 12.5 MCG; Start 10/07/16 at 06:00 Metoclopramide HCl 5 mg 5 mg Q8 IV Last administered on 10/25/16 05:09; Admin Dose 5 MG; Start 10/06/16 at 22:00 Colistimethate Sodium/Sodium Chloride (Coly-Mycin/NS) 100 ml @ 200 mls/hr Q12 IVPB Last administered on 10/25/16 09:04; Admin Dose 200 MLS/HR; Start at 13:30 Lansoprazole 30 mg 30 mg BID@06,18 GTB Last administered on 10/25/16 05:09; Admin Dose 30 MG; Start 10/21/16 at 18:00 Diltiazem HCl (Cardizem-D5W 125 Mg/125 ml Drip) 125 ml @ 5 mls/hr TITRATE IV Last administered on 4/21/17at 03:48; Admin Dose 5 MLS/HR; Start 10/22/16 at 07: 00 IV Flush 10 ml 10 ml PRN PRN IV IV PROTOCOL; Start 10/22/16 at 14:30 Magnesium Sulfate (Magnesium Sulfate 2 Gm/50 ml) 50 ml @ 25 mls/hr ONCE ONCE IVPB ; Start 10/25/16 at 10:00; Stop 10/25/16 at 11:59; Status UNV AL SAMANO Oct 25, 2016 09:42
[2016-10-25] MEDS ORDERED: MAGNESIUM SULFATE 2 GM/50 ML 50 ML IVPB ONE ×2 (10:00→12:44)
--- NOTE | 2016-10-25 10:54 | PN ---
Date/Time of Note Date/Time of Note DATE: 10/25/16 TIME: 10:54 Assessment/Plan Lines/Catheters IV Catheter Type (from [facility]): PICC Line Cee in Place (from [facility]): Yes Assessment/Plan Chief Complaint/Hosp Course 1. Shock, septic (uti, pna, wound). -Judicious fluid management -Supportive measures -Antibiotics 2. Multiple decubitus ulcerations with necrotic tissue and deep tissue injury -Offload -Local care -Vitamin C -Eventual nutritional optimization -Debridement when medically cleared 3. Contracted state with functional quadriplegia -Offloading -Nutritional optimization when possible 4. Anemia -Monitor 5. Ventilator dependent respiratory failure -Ventilator management and pulmonary toilet 6. Renal insufficiency -Judicious fluid management -Avoid nephrotoxic agents 7. Coronary artery disease and history of non-ST elevation [place] -Cardiac optimization 8. Thrombocytopenia -medical optimization Thank you Problems: Subjective 24 Hr Interval Summary Tachycardia. Fever. Leukocytosis. No chills. No cough. No seizure. No rash. No blood rectum. No bloating. No seizures. No pyuria. Exam/Review of Systems Vital Signs Vitals Vital Signs Date Time Temp Pulse Resp B/P Pulse Ox O2 Delivery O2 Flow Rate FiO2 10/25/16 09:26 122 10/25/16 09:10 27 98 30 10/25/16 07:44 99.6 93/61 Intake and Output 10/24/16 10/24/16 10/25/16 15:00 23:00 07:00 Intake Total 400 ml 700 ml 400 ml Output Total 600 ml 700 ml Balance 400 ml 100 ml -300 ml Exam Free Text/Dictation Constitutional: No alert, No oriented Psych: No nl mood/affect Head: atraumatic, normocephalic Eyes: nl conjunctiva, No EOMI, No icteric ENMT: mucosa pink and moist, nl external ears & nose Neck: jvd, other (Trach in place), No non-tender, No supple Respiratory: No congested cough, No labored breathing Cardiovascular: No regular rate and rhythm Gastrointestinal: non-tender, other (PEG in place), soft, No rebound or guarding Musculoskeletal: No joint tenderness, No nl extremities to inspection, No nl gait and stance Extremities: No calf tenderness, No cyanosis Neurological: No nl mental status, No nl speech, No nl strength Skin: rash or lesions (Multiple decubitus ulcerations with debris, necrotic tissue, deep tissue injury), No diaphoresis, No nl turgor Lymph: nontender Results Result Diagram: 10/25/16 0550 10/25/16 0550 EVA GUARDADO MD Oct 25, 2016 10:54
[2016-10-25] MEDS: LINEZOLID 600 MG/D5W (PMX) 300 ML IVPB SCH ×2 (11:18→20:47)
--- NOTE | 2016-10-25 11:20 | CONS ---
Date/Time of Note Date/Time of Note DATE: 10/25/16 TIME: :17 Assessment/Plan Assessment/Plan Additional Assessment/Plan 1. Acute kidney injury on chronic kidney disease. due to ATN from septic shock 2. septic shock on levophed 3. severe metabolic acidosis s/p [place] drip, now HCO3 stable 4. Patient with intermittent episodes of tachycardia, telemetry reviewed with brief episodes of atrial fibrillation, sinus tachycardia.- on IV cardizem 5. History of chronic respiratory failure, status post tracheostomy, on ventilator. 6. History of G-tube. 7. Poor mental status due to the previous cerebrovascular accident. 8. History of dementia. 9. History of hypertension. 10. Hypocalcemia with Ca 6.9- likely pseudohypocalcemia, because corrected Ca with Serum albumin of 1.6 is 8.8-no symptoms of hypocalcemia 11. Hypomagnesemia with mag 1.1 PLAN: on Tube feeding, magnesium sulfate 2 gram IV x 1 dose now Hb 8.4 On IV Coly-mycin and IV zyvox, need to monitor renal function and K will follow up Consultation Date/Type/Reason Admit Date/Time Sep 24, 2016 at 03:19 Initial Consult Date 09/24/16 Type of Consultation: NEPHROLOGY Reason for Consultation Acute kidney injury, Hyponatremia Referring Provider: FELIX BLAKE DO 24 HR Interval Summary Free Text/Dictation pt had a tachycardia with HR upto 140s, started on cardizem gtt Exam/Review of Systems Vital Signs Vitals Vital Signs Date Time Temp Pulse Resp B/P Pulse Ox O2 Delivery O2 Flow Rate FiO2 10/25/16 09:26 122 10/25/16 09:10 27 98 30 10/25/16 07:44 99.6 93/61 Intake and Output 10/24/16 10/24/16 10/25/16 15:00 23:00 07:00 Intake Total 400 ml 700 ml 400 ml Output Total 600 ml 700 ml Balance 400 ml 100 ml -300 ml Exam GENERAL: Chronically ill-appearing, elderly man who is in no distress. HEENT: Head atraumatic, normocephalic. Sclerae anicteric. Buccal mucosa dry. NECK: Supple. Tracheostomy present. CHEST: bilateral Clear BS, no wheezing HEART: tachycardia, intermittently in atrial fibrillation ABDOMEN: Obese, soft, bowel tones present. EXTREMITIES: No cyanosis. Bilateral edema., +scrotal edema stable SKIN: With multiple unstageable decubitus. Results Result Diagram: 10/25/16 0550 10/25/16 0550 Results 24 hrs Laboratory Tests Test 10/25/16 05:50 White Blood Count 16.7 #H Red Blood Count 3.09 L Hemoglobin 8.4 L Hematocrit 26.6 L Mean Corpuscular Volume 86.1 Mean Corpuscular Hemoglobin 27.2 L Mean Corpuscular Hemoglobin Concent 31.6 L Red Cell Distribution Width 19.0 H Platelet Count 330 # Mean Platelet Volume 12.2 H Neutrophils % 73.1 Lymphocytes % 16.4 Monocytes % 8.3 Eosinophils % 1.3 Basophils % 0.4 Nucleated Red Blood Cells % 0.0 Neutrophils # 12.2 H Lymphocytes # 2.8 Monocytes # 1.4 H Eosinophils # 0.2 Basophils # 0.1 Nucleated Red Blood Cells # 0.0 Sodium Level 133 L Potassium Level 4.3 Chloride Level 109 Carbon Dioxide Level 19 L Anion Gap 9 Blood Urea Nitrogen 28 H Creatinine 1.20 Glucose Level 74 Calcium Level 7.1 L Phosphorus Level 4.1 Magnesium Level 1.6 L Medications Medications Current Medications Acetaminophen (Tylenol Supp) 650 mg Q4H PRN [place] PAIN LEVEL 1-3 OR FEVER; Start 09/24/16 at 03:00 Eye Lubricant (Artificial Tears Oph) 1 drop TID BOTH EYES Last administered on 10/25/16 09:03; Admin Dose 1 DROP; Start 09/24/16 at 09:00 Sodium Hypochlorite (Dakin'S (1/4 Strength)) 1 applic BID IRR Last administered on 10/25/16 09:04; Admin Dose 1 APPLIC; Start 09/24/16 at 21:00 Collagenase (Santyl) 1 applic DAILY TOP Last administered on 10/25/16 09:04; Admin Dose 1 APPLIC; Start 09/24/16 at 20:30 Miscellaneous Information 1 ea NOTE XX ; Start 09/24/16 at 21:00 Glucose (Glutose) 15 gm Q15M PRN PO DECREASED GLUCOSE; Start 09/24/16 at 21:00 Glucose (Glutose) 22.5 gm Q15M PRN PO DECREASED GLUCOSE; Start 09/24/16 at 21: 00 Dextrose (D50w Syringe) 25 ml Q15M PRN IV DECREASED GLUCOSE; Start 09/24/16 at 21:00 Dextrose (D50w Syringe) 50 ml Q15M PRN IV DECREASED GLUCOSE; Start 09/24/16 at 21:00 Glucagon (Glucagen) 1 mg Q15M PRN IM DECREASED GLUCOSE; Start 09/24/16 at 21:00 Glucose (Glutose) 15 gm Q15M PRN BUCCAL DECREASED GLUCOSE; Start 09/24/16 at 21 :00 Vancomycin HCl (Vancomycin Oral Syringe) 250 mg Q6 PO Last administered on 17:15; Admin Dose 250 MG; Start 09/26/16 at 18:00; Status Future Hold Lactobacillus Acidoph/Bulgaricus (Floranex) 1 tab TID PO Last administered on 13:22; Admin Dose 1 TAB; Start 09/26/16 at 21:00; Status Future Hold Atorvastatin Calcium (Lipitor) 20 mg QHS GTB Last administered on 10/05/16 21: 42; Admin Dose 20 MG; Start 09/28/16 at 21:00; Status Future Hold Finasteride (Proscar) 5 mg DAILY GTB Last administered on 10/06/16 09:12; Admin Dose 5 MG; Start 09/29/16 at 09:00; Status Future Hold Multivitamins Therapeutic (Theragran) 1 tab DAILY GTB Last administered on 09:12; Admin Dose 1 TAB; Start 09/29/16 at 09:00; Status Future Hold Zinc Sulfate (Zinc Sulfate) 220 mg DAILY NGT Last administered on 10/06/16 09: 13; Admin Dose 220 MG; Start 09/29/16 at 09:00; Status Future Hold Ondansetron HCl (Zofran Inj) 4 mg Q6H PRN IV NAUSEA AND/OR VOMITING Last administered on 10/13/16 16:10; Admin Dose 4 MG; Start 09/29/16 at 07:30 Acetaminophen 650 mg 650 mg Q6H PRN GTB PAIN AND OR ELEVATED TEMP Last administered on 10/21/16 22:51; Admin Dose 650 MG; Start 10/02/16 at 08:00 Metronidazole (Flagyl 500 Mg (Pmx)) 100 ml @ 100 mls/hr Q8 IVPB Last administered on 10/25/16 05:09; Admin Dose 100 MLS/HR; Start 10/02/16 at 14:00 Midodrine 10 mg 10 mg TID@,, PO Last administered on 10/06/16 17:15; Admin Dose 10 MG; Start 10/06/16 at 01:00; Status Future Hold Linezolid (Zyvox 600mg/D5W (Pmx)) 300 ml @ 300 mls/hr Q12 IVPB Last administered on 10/24/16 21:07; Admin Dose 300 MLS/HR; Start 10/06/16 at 21:00 Levothyroxine Sodium (Synthroid Iv) 12.5 mcg DAILY@06 IV Last administered on 05:09; Admin Dose 12.5 MCG; Start 10/07/16 at 06:00 Metoclopramide HCl 5 mg 5 mg Q8 IV Last administered on 10/25/16 05:09; Admin Dose 5 MG; Start 10/06/16 at 22:00 Colistimethate Sodium/Sodium Chloride (Coly-Mycin/NS) 100 ml @ 200 mls/hr Q12 IVPB Last administered on 10/25/16 09:04; Admin Dose 200 MLS/HR; Start at 13:30 Lansoprazole 30 mg 30 mg BID@06,18 GTB Last administered on 10/25/16 05:09; Admin Dose 30 MG; Start 10/21/16 at 18:00 Diltiazem HCl (Cardizem-D5W 125 Mg/125 ml Drip) 125 ml @ 5 mls/hr TITRATE IV Last administered on 10/25/16 03:48; Admin Dose 5 MLS/HR; Start 10/22/16 at 07: 00 IV Flush 10 ml 10 ml PRN PRN IV IV PROTOCOL; Start 10/22/16 at 14:30 Magnesium Sulfate (Magnesium Sulfate 2 Gm/50 ml) 50 ml @ 25 mls/hr ONCE ONCE IVPB ; Start 10/25/16 at 10:00; Stop 10/25/16 at 11:59 MAGGIE DINERO MD Oct 25, 2016 11:20
--- NOTE | 2016-10-25 12:31 | CONS ---
Date/Time of Note Date/Time of Note DATE: 10/25/16 TIME: 12:28 Assessment/Plan Assessment/Plan Additional Assessment/Plan Sepsis Preserved ejection fraction Moderate aortic stenosis Respiratory failure/Tracheostomy Coronary artery disease Anemia Atrial fibrillation rapid ventricular rates -Patient with episodes of atrial fibrillation with rapid ventricular rates and currently on IV Cardizem drip. Baseline likely sinus tachycardia but possibly atrial flutter. Would start patient on p.o. amiodarone. Supplement potassium to maintain above 4.0 and magnesium above 2.0. Consultation Date/Type/Reason Admit Date/Time Sep 24, 2016 at 03:19 Initial Consult Date 09/24/16 Type of Consultation: cv Referring Provider: FELIX BLAKE DO 24 HR Interval Summary Free Text/Dictation Patient seen and examined Exam/Review of Systems Vital Signs Vitals Vital Signs Date Time Temp Pulse Resp B/P Pulse Ox O2 Delivery O2 Flow Rate FiO2 10/25/16 12:26 116 10/25/16 12:11 99.9 20 91/49 95 10/25/16 11:10 30 Intake and Output 10/24/16 10/24/16 10/25/16 15:00 23:00 07:00 Intake Total 400 ml 700 ml 400 ml Output Total 600 ml 700 ml Balance 400 ml 100 ml -300 ml Exam Awake, no apparent distress Head: normocephalic Neck: other (Tracheostomy) Respiratory: other (Coarse breath sounds bilaterally, no wheezing) Cardiovascular: other (S1-S2 heard), regular rate and rhythm Gastrointestinal: bowel sounds, distended, soft Extremities: edema Results Result Diagram: 10/25/16 0550 10/25/16 0550 Results 24 hrs Laboratory Tests Test 10/25/16 05:50 White Blood Count 16.7 #H Red Blood Count 3.09 L Hemoglobin 8.4 L Hematocrit 26.6 L Mean Corpuscular Volume 86.1 Mean Corpuscular Hemoglobin 27.2 L Mean Corpuscular Hemoglobin Concent 31.6 L Red Cell Distribution Width 19.0 H Platelet Count 330 # Mean Platelet Volume 12.2 H Neutrophils % 73.1 Lymphocytes % 16.4 Monocytes % 8.3 Eosinophils % 1.3 Basophils % 0.4 Nucleated Red Blood Cells % 0.0 Neutrophils # 12.2 H Lymphocytes # 2.8 Monocytes # 1.4 H Eosinophils # 0.2 Basophils # 0.1 Nucleated Red Blood Cells # 0.0 Sodium Level 133 L Potassium Level 4.3 Chloride Level 109 Carbon Dioxide Level 19 L Anion Gap 9 Blood Urea Nitrogen 28 H Creatinine 1.20 Glucose Level 74 Calcium Level 7.1 L Phosphorus Level 4.1 Magnesium Level 1.6 L Medications Medications Current Medications Acetaminophen (Tylenol Supp) 650 mg Q4H PRN [place] PAIN LEVEL 1-3 OR FEVER; Start 09/24/16 at 03:00 Eye Lubricant (Artificial Tears Oph) 1 drop TID BOTH EYES Last administered on 10/25/16 09:03; Admin Dose 1 DROP; Start 09/24/16 at 09:00 Sodium Hypochlorite (Dakin'S (1/4 Strength)) 1 applic BID IRR Last administered on 10/25/16 09:04; Admin Dose 1 APPLIC; Start 09/24/16 at 21:00 Collagenase (Santyl) 1 applic DAILY TOP Last administered on 10/25/16 09:04; Admin Dose 1 APPLIC; Start 09/24/16 at 20:30 Miscellaneous Information 1 ea NOTE XX ; Start 09/24/16 at 21:00 Glucose (Glutose) 15 gm Q15M PRN PO DECREASED GLUCOSE; Start 09/24/16 at 21:00 Glucose (Glutose) 22.5 gm Q15M PRN PO DECREASED GLUCOSE; Start 09/24/16 at 21: 00 Dextrose (D50w Syringe) 25 ml Q15M PRN IV DECREASED GLUCOSE; Start 09/24/16 at 21:00 Dextrose (D50w Syringe) 50 ml Q15M PRN IV DECREASED GLUCOSE; Start 09/24/16 at 21:00 Glucagon (Glucagen) 1 mg Q15M PRN IM DECREASED GLUCOSE; Start 09/24/16 at 21:00 Glucose (Glutose) 15 gm Q15M PRN BUCCAL DECREASED GLUCOSE; Start 09/24/16 at 21 :00 Vancomycin HCl (Vancomycin Oral Syringe) 250 mg Q6 PO Last administered on 17:15; Admin Dose 250 MG; Start 09/26/16 at 18:00; Status Future Hold Lactobacillus Acidoph/Bulgaricus (Floranex) 1 tab TID PO Last administered on 13:22; Admin Dose 1 TAB; Start 09/26/16 at 21:00; Status Future Hold Atorvastatin Calcium (Lipitor) 20 mg QHS GTB Last administered on 10/05/16 21: 42; Admin Dose 20 MG; Start 09/28/16 at 21:00; Status Future Hold Finasteride (Proscar) 5 mg DAILY GTB Last administered on 10/06/16 09:12; Admin Dose 5 MG; Start 09/29/16 at 09:00; Status Future Hold Multivitamins Therapeutic (Theragran) 1 tab DAILY GTB Last administered on 09:12; Admin Dose 1 TAB; Start 09/29/16 at 09:00; Status Future Hold Zinc Sulfate (Zinc Sulfate) 220 mg DAILY NGT Last administered on 10/06/16 09: 13; Admin Dose 220 MG; Start 09/29/16 at 09:00; Status Future Hold Ondansetron HCl (Zofran Inj) 4 mg Q6H PRN IV NAUSEA AND/OR VOMITING Last administered on 10/13/16 16:10; Admin Dose 4 MG; Start 09/29/16 at 07:30 Acetaminophen 650 mg 650 mg Q6H PRN GTB PAIN AND OR ELEVATED TEMP Last administered on 10/21/16 22:51; Admin Dose 650 MG; Start 10/02/16 at 08:00 Metronidazole (Flagyl 500 Mg (Pmx)) 100 ml @ 100 mls/hr Q8 IVPB Last administered on 10/25/16 05:09; Admin Dose 100 MLS/HR; Start 10/02/16 at 14:00 Midodrine 10 mg 10 mg TID@,,17 PO Last administered on 10/06/16 17:15; Admin Dose 10 MG; Start 10/06/16 at 01:00; Status Future Hold Linezolid (Zyvox 600mg/D5W (Pmx)) 300 ml @ 300 mls/hr Q12 IVPB Last administered on 10/25/16 11:18; Admin Dose 300 MLS/HR; Start 10/06/16 at 21:00 Levothyroxine Sodium (Synthroid Iv) 12.5 mcg DAILY@06 IV Last administered on 05:09; Admin Dose 12.5 MCG; Start 10/07/16 at 06:00 Metoclopramide HCl 5 mg 5 mg Q8 IV Last administered on 10/25/16 05:09; Admin Dose 5 MG; Start 10/06/16 at 22:00 Colistimethate Sodium/Sodium Chloride (Coly-Mycin/NS) 100 ml @ 200 mls/hr Q12 IVPB Last administered on 10/25/16 09:04; Admin Dose 200 MLS/HR; Start at 13:30 Lansoprazole 30 mg 30 mg BID@06,18 GTB Last administered on 10/25/16 05:09; Admin Dose 30 MG; Start 10/21/16 at 18:00 Diltiazem HCl (Cardizem-D5W 125 Mg/125 ml Drip) 125 ml @ 5 mls/hr TITRATE IV Last administered on 10/25/16 11:24; Admin Dose 5 MLS/HR; Start 10/22/16 at 07: 00 IV Flush 10 ml 10 ml PRN PRN IV IV PROTOCOL; Start 10/22/16 at 14:30 Magnesium Sulfate (Magnesium Sulfate 2 Gm/50 ml) 50 ml @ 25 mls/hr ONCE ONCE IVPB ; Start 10/25/16 at 11:30; Stop 10/25/16 at 13:29; Status Ryder Rios DO Oct 25, 2016 12:31
[2016-10-25] MEDS: AMIODARONE 200 MG TAB NGT SCH ×2 (13:21→21:00)
--- NOTE | 2016-10-25 16:29 | CONS ---
Date/Time of Note Date/Time of Note DATE: 10/25/16 TIME: 16:27 Consult Date/Type/Reason Admit Date/Time Sep 24, 2016 at 03:19 Initial Consult Date 09/24/16 Type of Consultation: pulmonary Ordering Provider: FELIX BLAKE DO Subjective Patient remained stable no new events Objective Vital Signs Date Time Temp Pulse Resp B/P Pulse Ox O2 Delivery O2 Flow Rate FiO2 10/25/16 16:17 109 10/25/16 16:08 98.8 20 85/47 100 10/25/16 15:45 30 Intake and Output 10/24/16 10/24/16 10/25/16 15:00 23:00 07:00 Intake Total 400 ml 700 ml 400 ml Output Total 600 ml 700 ml Balance 400 ml 100 ml -300 ml Exam PHYSICAL EXAMINATION GENERAL: Elderly gentleman, continues mechanical ventilation via tracheostomy VITAL SIGNS: see below. HEENT: Pupils equal, round, and reactive to light. Tracheostomy site clean and intact. CARDIAC: S1, S2, CHEST: Diminished air entry bilaterally. ABDOMEN: Mildly distended. No bowel sounds. EXTREMITIES: No cyanosis, clubbing edema +1 NEUROLOGIC: Generalized weakness Results/Medications Result Diagram: 10/25/16 0550 10/25/16 0550 Results 24 hrs Laboratory Tests Test 10/25/16 05:50 White Blood Count 16.7 #H Red Blood Count 3.09 L Hemoglobin 8.4 L Hematocrit 26.6 L Mean Corpuscular Volume 86.1 Mean Corpuscular Hemoglobin 27.2 L Mean Corpuscular Hemoglobin Concent 31.6 L Red Cell Distribution Width 19.0 H Platelet Count 330 # Mean Platelet Volume 12.2 H Neutrophils % 73.1 Lymphocytes % 16.4 Monocytes % 8.3 Eosinophils % 1.3 Basophils % 0.4 Nucleated Red Blood Cells % 0.0 Neutrophils # 12.2 H Lymphocytes # 2.8 Monocytes # 1.4 H Eosinophils # 0.2 Basophils # 0.1 Nucleated Red Blood Cells # 0.0 Sodium Level 133 L Potassium Level 4.3 Chloride Level 109 Carbon Dioxide Level 19 L Anion Gap 9 Blood Urea Nitrogen 28 H Creatinine 1.20 Glucose Level 74 Calcium Level 7.1 L Phosphorus Level 4.1 Magnesium Level 1.6 L Medications Current Medications Acetaminophen (Tylenol Supp) 650 mg Q4H PRN [place] PAIN LEVEL 1-3 OR FEVER; Start 09/24/16 at 03:00 Eye Lubricant (Artificial Tears Oph) 1 drop TID BOTH EYES Last administered on 10/25/16 13:22; Admin Dose 1 DROP; Start 09/24/16 at 09:00 Sodium Hypochlorite (Dakin'S (1/4 Strength)) 1 applic BID IRR Last administered on 10/25/16 09:04; Admin Dose 1 APPLIC; Start 09/24/16 at 21:00 Collagenase (Santyl) 1 applic DAILY TOP Last administered on 10/25/16 09:04; Admin Dose 1 APPLIC; Start 09/24/16 at 20:30 Miscellaneous Information 1 ea NOTE XX ; Start 09/24/16 at 21:00 Glucose (Glutose) 15 gm Q15M PRN PO DECREASED GLUCOSE; Start 09/24/16 at 21:00 Glucose (Glutose) 22.5 gm Q15M PRN PO DECREASED GLUCOSE; Start 09/24/16 at 21: 00 Dextrose (D50w Syringe) 25 ml Q15M PRN IV DECREASED GLUCOSE; Start 09/24/16 at 21:00 Dextrose (D50w Syringe) 50 ml Q15M PRN IV DECREASED GLUCOSE; Start 09/24/16 at 21:00 Glucagon (Glucagen) 1 mg Q15M PRN IM DECREASED GLUCOSE; Start 09/24/16 at 21:00 Glucose (Glutose) 15 gm Q15M PRN BUCCAL DECREASED GLUCOSE; Start 09/24/16 at 21 :00 Vancomycin HCl (Vancomycin Oral Syringe) 250 mg Q6 PO Last administered on 17:15; Admin Dose 250 MG; Start 09/26/16 at 18:00; Status Future Hold Lactobacillus Acidoph/Bulgaricus (Floranex) 1 tab TID PO Last administered on 13:22; Admin Dose 1 TAB; Start 09/26/16 at 21:00; Status Future Hold Atorvastatin Calcium (Lipitor) 20 mg QHS GTB Last administered on 10/05/16 21: 42; Admin Dose 20 MG; Start 09/28/16 at 21:00; Status Future Hold Finasteride (Proscar) 5 mg DAILY GTB Last administered on 10/06/16 09:12; Admin Dose 5 MG; Start 09/29/16 at 09:00; Status Future Hold Multivitamins Therapeutic (Theragran) 1 tab DAILY GTB Last administered on 09:12; Admin Dose 1 TAB; Start 09/29/16 at 09:00; Status Future Hold Zinc Sulfate (Zinc Sulfate) 220 mg DAILY NGT Last administered on 10/06/16 09: 13; Admin Dose 220 MG; Start 09/29/16 at 09:00; Status Future Hold Ondansetron HCl (Zofran Inj) 4 mg Q6H PRN IV NAUSEA AND/OR VOMITING Last administered on 10/13/16 16:10; Admin Dose 4 MG; Start 09/29/16 at 07:30 Acetaminophen 650 mg 650 mg Q6H PRN GTB PAIN AND OR ELEVATED TEMP Last administered on 10/21/16 22:51; Admin Dose 650 MG; Start 10/02/16 at 08:00 Metronidazole (Flagyl 500 Mg (Pmx)) 100 ml @ 100 mls/hr Q8 IVPB Last administered on 10/25/16 13:21; Admin Dose 100 MLS/HR; Start 10/02/16 at 14:00 Midodrine 10 mg 10 mg TID@,, PO Last administered on 10/06/16 17:15; Admin Dose 10 MG; Start 10/06/16 at 01:00; Status Future Hold Linezolid (Zyvox 600mg/D5W (Pmx)) 300 ml @ 300 mls/hr Q12 IVPB Last administered on 10/25/16 11:18; Admin Dose 300 MLS/HR; Start 10/06/16 at 21:00 Levothyroxine Sodium (Synthroid Iv) 12.5 mcg DAILY@06 IV Last administered on 05:09; Admin Dose 12.5 MCG; Start 10/07/16 at 06:00 Metoclopramide HCl 5 mg 5 mg Q8 IV Last administered on 10/25/16 13:21; Admin Dose 5 MG; Start 10/06/16 at 22:00 Colistimethate Sodium/Sodium Chloride (Coly-Mycin/NS) 100 ml @ 200 mls/hr Q12 IVPB Last administered on 10/25/16 09:04; Admin Dose 200 MLS/HR; Start at 13:30 Lansoprazole 30 mg 30 mg BID@06,18 GTB Last administered on 10/25/16 05:09; Admin Dose 30 MG; Start 10/21/16 at 18:00 Diltiazem HCl (Cardizem-D5W 125 Mg/125 ml Drip) 125 ml @ 5 mls/hr TITRATE IV Last administered on 10/25/16 11:24; Admin Dose 5 MLS/HR; Start 10/22/16 at 07: 00 IV Flush (NS 10 ml) 10 ml PRN PRN IV IV PROTOCOL; Start 10/22/16 at 14:30 Amiodarone HCl (Cordarone) 400 mg BID NGT Last administered on 10/25/16 13:21 ; Admin Dose 400 MG; Start 10/25/16 at 12:30 Assessment/Plan Chief Complaint/Hosp Course Assessment 1. Status post Septic shock secondary to pneumonia versus line sepsis possible adrenal insufficiency. Sepsis likely secondary to multiple decubitus ulcers 2. Significant anemia requiring blood transfusions 3. Vent dependent respiratory failure 4. Dysphagia with G-tube 5. Persistent leukocytosis 6. History of renal insufficiency Plan 1. Continue mechanical ventilation 2. Continue antibiotics per infectious diseases 3. Monitor H&H 4. Continue renal recommendations, metabolic acidosis noted 5. Continue DVT and GI prophylaxis Disposition Consider transfer back to alf facility Prognosis very poor Problems: AB[facility] DELCID [facility] Oct 25, 2016 16:29
--- NOTE | 2016-10-25 17:32 | PN ---
DATE: 10/25/2016 SUBJECTIVE: No events overnight. The patient is lying comfortably in bed. He is afebrile with a T -max of 99.9. Still tachycardic on and off hypotensive. WBC today increased to 16.7, platelets 330 , no shift, no bands. BUN 28, creatinine 1.20. MICROBIOLOGY: Blood and urine cultures since 10/19/2016 negative. INDWELLINGS: Trach, PEG, Cee, rectal tube, PICC line placed on 10/22/2016. ANTIMICROBIALS: 1. The patient remains on colistin. 2. Zyvox 3. Flagyl. 4. Status post Voriconazole. PHYSICAL EXAMINATION: GENERAL: This is a well-developed elderly man who is in no distress. HEENT: Head atraumatic, normocephalic. Sclerae anicteric. Buccal mucosa dry. NECK: Supple. Tracheostomy present. CHEST: Rise symmetrical. Breath sounds diminished to bases. HEART: S1, S2. ABDOMEN: Distended, soft. Bowel tones present. EXTREMITIES: Bilateral edema. SKIN: With multiple unstageable wounds. ASSESSMENT: 1. Ongoing sepsis with fevers, leukocytosis, tachycardia and low blood pressure, multifactorial. 2. Multiple wounds with left trochanteric osteomyelitis. 3. Status post urinary tract infection. 4. Status post Bacteroides fragilis and Escherichia coli bacteremia on admission. 5. Methicillin-resistant Staphylococcus aureus nares colonization. 6. Chronic respiratory failure. 7. Dysphagia. 8. History of cerebrovascular accident. PLAN: The patient remains unchanged on appropriate antimicrobials. His wound culture grew vancomyc in-resistant enterococcus, methicillin-resistant Staphylococcus aureus, Acinetobacter baumannii and Klebsiella pneumoniae, Proteus mirabilis, Escherichia coli and streptococcus. He is covered with ap propriate antimicrobials. We will monitor his renal function closely. The patient is do not resusc itate status. Dictated By: CHRISTOPHER MCDONOUGH CUTTING MACHINE OFFBEARER for YAQUELIN SMYTH/NTS Conf#: [id number] DID#: [id number]
[2016-10-25] MEDS: ACETAMINOPHEN 650MG/20.3ML CUP GTB PRN (20:50)
[2016-10-26] VITALS (77 sets, daily range): BP systolic 85–102; BP diastolic 57–78; PULSE 97–139; RESP 17–36
[2016-10-26] MEDS: IPRATROPIUM (HFA) 12.9 GM INHALER INH SCH ×4 (01:17→20:08)
[2016-10-26] MEDS: ALBUTEROL 18 GM INHALER INH SCH ×4 (01:18→20:08)
[2016-10-26] MEDS: metroNIDAZOLE 500 MG/NS (PMX) 100 ML IVPB SCH ×3 (05:21→21:09)
[2016-10-26] MEDS: LANSOPRAZOLE 30 MG CAP GTB SCH ×2 (05:22→18:00)
[2016-10-26] MEDS: LEVOTHYROXINE 100 MCG VIAL IV SCH (05:22)
[2016-10-26] MEDS: METOCLOPRAMIDE 10 MG INJ IV SCH ×3 (05:22→21:09)
[2016-10-26] MEDS ORDERED: NORepinephrine 8MG/250 ML (PMX 250 ML ONE (05:47)
[2016-10-26] MEDS ORDERED: DILTIAZEM 25 MG INJ ONE (06:02)
--- NOTE | 2016-10-26 06:41 | EN ---
Date/Time of Note Date/Time of Note DATE: 10/26/16 TIME: 06:40 Event Note Medicine Medicine Event Note RAPID RESPONSE TEAM: FELIX BLAKE DO Oct 26, 2016 06:41
[2016-10-26 06:42] LABS: ADD SCAN DIFF NO
[2016-10-26 06:59] LABS: ABNORMAL IP MESSAGE 1; HEMATOCRIT 28.5 % (42.0-52.0); HEMOGLOBIN 8.6 g/dl (14.0-18.0); MEAN CORPUSCULAR HEMOGLOBIN 26.5 pg (29.0-33.0); MEAN CORPUSCULAR HGB CONC 30.2 g/dl (32.0-37.0); MEAN PLATELET VOLUME 11.8 fl (7.4-10.4); PLATELET COUNT 432 10^3/UL (140-415); RED BLOOD COUNT 3.24 10^6/ul (4.70-6.10); RED CELL DISTRIBUTION WIDTH 19.8 % (11.5-14.5); WHITE BLOOD COUNT 25.1 10^3/ul (4.8-10.8)
[2016-10-26 07:00] LABS: CREATININE 1.27 mg/dl (0.61-1.24)
[2016-10-26] MEDS ORDERED: DILTIAZEM 25 MG INJ IV ONE (07:00)
[2016-10-26 07:01] LABS: PHOSPHORUS 4.5 mg/dl (2.5-4.9)
[2016-10-26 07:02] LABS: MAGNESIUM 1.8 mg/dl (1.7-2.5)
[2016-10-26] MEDS: NORepinephrine 8MG/250 ML (PMX 250 ML IV SCH ×2 (07:31→13:00)
[2016-10-26] MEDS: COLISTIMETHATE 75 MG in SOD CHLORIDE 0.9% 100 ML IVPB SCH ×2 (08:33→21:08)
[2016-10-26] MEDS: AMIODARONE 200 MG TAB NGT SCH ×2 (08:34→21:09)
[2016-10-26] MEDS: SODIUM HYPOCHLORITE 0.125% 473 ML BTL IRR SCH ×2 (08:57→21:00)
[2016-10-26] MEDS: COLLAGENASE 30 GM TUBE TOP SCH (08:57)
[2016-10-26] MEDS: LINEZOLID 600 MG/D5W (PMX) 300 ML IVPB SCH ×2 (09:45→21:08)
[2016-10-26] MEDS: ARTIFICIAL TEARS 15 ML OPH BOTH EYES SCH ×3 (09:45→21:00)
--- NOTE | 2016-10-26 10:43 | PN ---
Date/Time of Note Date/Time of Note DATE: 10/26/16 TIME: 10:39 Assessment/Plan VTE Prophylaxis VTE Prophylaxis Intervention: SCD's Lines/Catheters IV Catheter Type (from Nrsg): PICC Line Central line still needed: No Urinary Cath still in place: Yes Reason Cath still needed: urinary retention Assessment/Plan Chief Complaint/Hosp Course The patient with no cahgne Problems: Assessment/Plan Sepsis Preserved ejection fraction Moderate aortic stenosis Respiratory failure/Tracheostomy Coronary artery disease Anemia Atrial fibrillation rapid ventricular rates -Patient with episodes of atrial fibrillation with rapid ventricular rate v> now nsr Baseline likely sinus tachycardia but possibly atrial flutter now on po amio Supplement potassium to maintain above 4.0 and magnesium above 2.0. d/c cardizme drip Subjective 24 Hr Interval Summary Free Text/Dictation The patient with no change overnight Exam/Review of Systems Vital Signs Vitals Vital Signs Date Time Temp Pulse Resp B/P Pulse Ox O2 Delivery O2 Flow Rate FiO2 10/26/16 10:00 98 28 93/65 99 10/26/16 09:00 Mechanical Ventilator 10/26/16 06:25 98.2 10/26/16 04:50 30 Intake and Output 10/25/16 10/25/16 10/26/16 15:00 23:00 07:00 Intake Total 400 ml 1430 ml 365 ml Output Total 300 ml 230 ml Balance 400 ml 1130 ml 135 ml Results Result Diagram: 10/26/16 0635 10/26/16 0635 Results 24 hrs Laboratory Tests Test 10/26/16 06:35 White Blood Count 25.1 #H Red Blood Count 3.24 L Hemoglobin 8.6 L Hematocrit 28.5 L Mean Corpuscular Volume 88.0 Mean Corpuscular Hemoglobin 26.5 L Mean Corpuscular Hemoglobin Concent 30.2 L Red Cell Distribution Width 19.8 H Platelet Count 432 #H Mean Platelet Volume 11.8 H Sodium Level 136 Potassium Level 4.0 Chloride Level 107 Carbon Dioxide Level 18 L Anion Gap 15 Blood Urea Nitrogen 30 H Creatinine 1.27 H Glucose Level 99 Calcium Level 7.0 L Phosphorus Level 4.5 Magnesium Level 1.8 Medications Medications Current Medications Acetaminophen (Tylenol Supp) 650 mg Q4H PRN [place] PAIN LEVEL 1-3 OR FEVER; Start 09/24/16 at 03:00 Eye Lubricant (Artificial Tears Oph) 1 drop TID BOTH EYES Last administered on 10/26/16 09:45; Admin Dose 1 DROP; Start 09/24/16 at 09:00 Sodium Hypochlorite (Dakin'S (1/4 Strength)) 1 applic BID IRR Last administered on 10/26/16 08:57; Admin Dose 1 APPLIC; Start 09/24/16 at 21:00 Collagenase (Santyl) 1 applic DAILY TOP Last administered on 10/26/16 08:57; Admin Dose 1 APPLIC; Start 09/24/16 at 20:30 Miscellaneous Information 1 ea NOTE XX ; Start 09/24/16 at 21:00 Glucose (Glutose) 15 gm Q15M PRN PO DECREASED GLUCOSE; Start 09/24/16 at 21:00 Glucose (Glutose) 22.5 gm Q15M PRN PO DECREASED GLUCOSE; Start 09/24/16 at 21: 00 Dextrose (D50w Syringe) 25 ml Q15M PRN IV DECREASED GLUCOSE; Start 09/24/16 at 21:00 Dextrose (D50w Syringe) 50 ml Q15M PRN IV DECREASED GLUCOSE; Start 09/24/16 at 21:00 Glucagon (Glucagen) 1 mg Q15M PRN IM DECREASED GLUCOSE; Start 09/24/16 at 21:00 Glucose (Glutose) 15 gm Q15M PRN BUCCAL DECREASED GLUCOSE; Start 09/24/16 at 21 :00 Vancomycin HCl (Vancomycin Oral Syringe) 250 mg Q6 PO Last administered on 17:15; Admin Dose 250 MG; Start 09/26/16 at 18:00; Status Future Hold Lactobacillus Acidoph/Bulgaricus (Floranex) 1 tab TID PO Last administered on 13:22; Admin Dose 1 TAB; Start 09/26/16 at 21:00; Status Future Hold Atorvastatin Calcium (Lipitor) 20 mg QHS GTB Last administered on 10/05/16 21: 42; Admin Dose 20 MG; Start 09/28/16 at 21:00; Status Future Hold Finasteride (Proscar) 5 mg DAILY GTB Last administered on 10/06/16 09:12; Admin Dose 5 MG; Start 09/29/16 at 09:00; Status Future Hold Multivitamins Therapeutic (Theragran) 1 tab DAILY GTB Last administered on 09:12; Admin Dose 1 TAB; Start 09/29/16 at 09:00; Status Future Hold Zinc Sulfate (Zinc Sulfate) 220 mg DAILY NGT Last administered on 10/06/16 09: 13; Admin Dose 220 MG; Start 09/29/16 at 09:00; Status Future Hold Ondansetron HCl (Zofran Inj) 4 mg Q6H PRN IV NAUSEA AND/OR VOMITING Last administered on 10/13/16 16:10; Admin Dose 4 MG; Start 09/29/16 at 07:30 Acetaminophen 650 mg 650 mg Q6H PRN GTB PAIN AND OR ELEVATED TEMP Last administered on 10/25/16 20:50; Admin Dose 650 MG; Start 10/02/16 at 08:00 Metronidazole (Flagyl 500 Mg (Pmx)) 100 ml @ 100 mls/hr Q8 IVPB Last administered on 10/26/16 05:21; Admin Dose 100 MLS/HR; Start 10/02/16 at 14:00 Midodrine 10 mg 10 mg TID@ PO Last administered on 10/06/16 17:15; Admin Dose 10 MG; Start 10/06/16 at 01:00; Status Future Hold Linezolid (Zyvox 600mg/D5W (Pmx)) 300 ml @ 300 mls/hr Q12 IVPB Last administered on 10/26/16 09:45; Admin Dose 300 MLS/HR; Start 10/06/16 at 21:00 Levothyroxine Sodium (Synthroid Iv) 12.5 mcg DAILY@06 IV Last administered on 05:22; Admin Dose 12.5 MCG; Start 10/07/16 at 06:00 Metoclopramide HCl 5 mg 5 mg Q8 IV Last administered on 10/26/16 05:22; Admin Dose 5 MG; Start 10/06/16 at 22:00 Colistimethate Sodium/Sodium Chloride (Coly-Mycin/NS) 100 ml @ 200 mls/hr Q12 IVPB Last administered on 10/26/16 08:33; Admin Dose 200 MLS/HR; Start at 13:30 Lansoprazole 30 mg 30 mg BID@06,18 GTB Last administered on 10/26/16 05:22; Admin Dose 30 MG; Start 10/21/16 at 18:00 Diltiazem HCl (Cardizem-D5W 125 Mg/125 ml Drip) 125 ml @ 5 mls/hr TITRATE IV Last administered on 10/25/16 11:24; Admin Dose 5 MLS/HR; Start 10/22/16 at 07: 00 IV Flush (NS 10 ml) 10 ml PRN PRN IV IV PROTOCOL; Start 10/22/16 at 14:30 Amiodarone HCl 400 mg 400 mg BID NGT Last administered on 10/26/16 08:34; Admin Dose 400 MG; Start 10/25/16 at 12:30 Norepinephrine 250 ml @ 1.875 mls/ hr TITRATE IV Last administered on 07:31; Admin Dose 37.5 MLS/HR; Start 10/26/16 at 07:00; Stop 10/26/16 at 12 :00 Norepinephrine/ Dextrose (Levophed/D5W) 500 ml @ 1.87 mls/hr TITRATE IV ; Start 10/26/16 at 12:00 HUGO DIAZ MD Oct 26, 2016 10:43
--- NOTE | 2016-10-26 10:48 | CONS ---
Date/Time of Note Date/Time of Note DATE: 10/26/16 TIME: 10:44 Consult Date/Type/Reason Admit Date/Time Sep 24, 2016 at 03:19 Initial Consult Date 09/24/16 Type of Consultation: nephrology Ordering Provider: FELIX BLAKE DO Subjective Awake, om levophed at18 mcg/hr. dw staff. Objective Vital Signs Date Time Temp Pulse Resp B/P Pulse Ox O2 Delivery O2 Flow Rate FiO2 10/26/16 10:00 98 28 93/65 99 10/26/16 09:00 Mechanical Ventilator 10/26/16 06:25 98.2 10/26/16 04:50 30 Intake and Output 10/25/16 10/25/16 10/26/16 15:00 23:00 07:00 Intake Total 400 ml 1430 ml 365 ml Output Total 300 ml 230 ml Balance 400 ml 1130 ml 135 ml Results/Medications Result Diagram: 10/26/16 0635 10/26/16 0635 Results 24 hrs Laboratory Tests Test 10/26/16 06:35 White Blood Count 25.1 #H Red Blood Count 3.24 L Hemoglobin 8.6 L Hematocrit 28.5 L Mean Corpuscular Volume 88.0 Mean Corpuscular Hemoglobin 26.5 L Mean Corpuscular Hemoglobin Concent 30.2 L Red Cell Distribution Width 19.8 H Platelet Count 432 #H Mean Platelet Volume 11.8 H Sodium Level 136 Potassium Level 4.0 Chloride Level 107 Carbon Dioxide Level 18 L Anion Gap 15 Blood Urea Nitrogen 30 H Creatinine 1.27 H Glucose Level 99 Calcium Level 7.0 L Phosphorus Level 4.5 Magnesium Level 1.8 Medications Current Medications Acetaminophen (Tylenol Supp) 650 mg Q4H PRN [place] PAIN LEVEL 1-3 OR FEVER; Start 09/24/16 at 03:00 Eye Lubricant (Artificial Tears Oph) 1 drop TID BOTH EYES Last administered on 10/26/16 09:45; Admin Dose 1 DROP; Start 09/24/16 at 09:00 Sodium Hypochlorite (Dakin'S (1/4 Strength)) 1 applic BID IRR Last administered on 10/26/16 08:57; Admin Dose 1 APPLIC; Start 09/24/16 at 21:00 Collagenase (Santyl) 1 applic DAILY TOP Last administered on 10/26/16 08:57; Admin Dose 1 APPLIC; Start 09/24/16 at 20:30 Miscellaneous Information 1 ea NOTE XX ; Start 09/24/16 at 21:00 Glucose (Glutose) 15 gm Q15M PRN PO DECREASED GLUCOSE; Start 09/24/16 at 21:00 Glucose (Glutose) 22.5 gm Q15M PRN PO DECREASED GLUCOSE; Start 09/24/16 at 21: 00 Dextrose (D50w Syringe) 25 ml Q15M PRN IV DECREASED GLUCOSE; Start 09/24/16 at 21:00 Dextrose (D50w Syringe) 50 ml Q15M PRN IV DECREASED GLUCOSE; Start 09/24/16 at 21:00 Glucagon (Glucagen) 1 mg Q15M PRN IM DECREASED GLUCOSE; Start 09/24/16 at 21:00 Glucose (Glutose) 15 gm Q15M PRN BUCCAL DECREASED GLUCOSE; Start 09/24/16 at 21 :00 Vancomycin HCl (Vancomycin Oral Syringe) 250 mg Q6 PO Last administered on 17:15; Admin Dose 250 MG; Start 09/26/16 at 18:00; Status Future Hold Lactobacillus Acidoph/Bulgaricus (Floranex) 1 tab TID PO Last administered on 13:22; Admin Dose 1 TAB; Start 09/26/16 at 21:00; Status Future Hold Atorvastatin Calcium (Lipitor) 20 mg QHS GTB Last administered on 10/05/16 21: 42; Admin Dose 20 MG; Start 09/28/16 at 21:00; Status Future Hold Finasteride (Proscar) 5 mg DAILY GTB Last administered on 10/06/16 09:12; Admin Dose 5 MG; Start 09/29/16 at 09:00; Status Future Hold Multivitamins Therapeutic (Theragran) 1 tab DAILY GTB Last administered on 09:12; Admin Dose 1 TAB; Start 09/29/16 at 09:00; Status Future Hold Zinc Sulfate (Zinc Sulfate) 220 mg DAILY NGT Last administered on 10/06/16 09: 13; Admin Dose 220 MG; Start 09/29/16 at 09:00; Status Future Hold Ondansetron HCl (Zofran Inj) 4 mg Q6H PRN IV NAUSEA AND/OR VOMITING Last administered on 10/13/16 16:10; Admin Dose 4 MG; Start 09/29/16 at 07:30 Acetaminophen 650 mg 650 mg Q6H PRN GTB PAIN AND OR ELEVATED TEMP Last administered on 10/25/16 20:50; Admin Dose 650 MG; Start 10/02/16 at 08:00 Metronidazole (Flagyl 500 Mg (Pmx)) 100 ml @ 100 mls/hr Q8 IVPB Last administered on 10/26/16 05:21; Admin Dose 100 MLS/HR; Start 10/02/16 at 14:00 Midodrine 10 mg 10 mg TID@,,17 PO Last administered on 10/06/16 17:15; Admin Dose 10 MG; Start 10/06/16 at 01:00; Status Future Hold Linezolid (Zyvox 600mg/D5W (Pmx)) 300 ml @ 300 mls/hr Q12 IVPB Last administered on 10/26/16 09:45; Admin Dose 300 MLS/HR; Start 10/06/16 at 21:00 Levothyroxine Sodium (Synthroid Iv) 12.5 mcg DAILY@06 IV Last administered on 05:22; Admin Dose 12.5 MCG; Start 10/07/16 at 06:00 Metoclopramide HCl 5 mg 5 mg Q8 IV Last administered on 10/26/16 05:22; Admin Dose 5 MG; Start 10/06/16 at 22:00 Colistimethate Sodium/Sodium Chloride (Coly-Mycin/NS) 100 ml @ 200 mls/hr Q12 IVPB Last administered on 10/26/16 08:33; Admin Dose 200 MLS/HR; Start at 13:30 Lansoprazole 30 mg 30 mg BID@06,18 GTB Last administered on 10/26/16 05:22; Admin Dose 30 MG; Start 10/21/16 at 18:00 Diltiazem HCl (Cardizem-D5W 125 Mg/125 ml Drip) 125 ml @ 5 mls/hr TITRATE IV Last administered on 10/25/16 11:24; Admin Dose 5 MLS/HR; Start 10/22/16 at 07: 00 IV Flush (NS 10 ml) 10 ml PRN PRN IV IV PROTOCOL; Start 10/22/16 at 14:30 Amiodarone HCl 400 mg 400 mg BID NGT Last administered on 10/26/16 08:34; Admin Dose 400 MG; Start 10/25/16 at 12:30 Norepinephrine 250 ml @ 1.875 mls/ hr TITRATE IV Last administered on 07:31; Admin Dose 37.5 MLS/HR; Start 10/26/16 at 07:00; Stop 10/26/16 at 12 :00 Norepinephrine/ Dextrose (Levophed/D5W) 500 ml @ 1.87 mls/hr TITRATE IV ; Start 10/26/16 at 12:00 Assessment/Plan Chief Complaint/Hosp Course nad, eyes open. on levophed, BUE/BLE extremities edema. dw staff Problems: Additional Assessment/Plan 1. Acute kidney injury on chronic kidney disease. due to ATN from septic shock Cr . 2. septic shock on levophed 3. severe metabolic acidosis s/p [place] drip, now HCO3 stable 4. Patient with intermittent episodes of tachycardia, telemetry reviewed with brief episodes of atrial fibrillation, sinus tachycardia.- on IV cardizem 5. History of chronic respiratory failure, status post tracheostomy, on ventilator. 6. History of G-tube. 7. Poor mental status due to the previous cerebrovascular accident. 8. History of dementia. 9. History of hypertension. 10. Hypocalcemia with Ca 7.0- likely pseudohypocalcemia, because corrected Ca with Serum albumin of 1.6 is 8.8-no symptoms of hypocalcemia 11. Hypomagnesemia- resolved PLAN: on Tube feeding, magnesium sulfate 2 gram IV x 1 dose now Hb 8.6 On IV Coly-mycin and IV zyvox, need to monitor renal function and K will follow up Further recommendations based on clinical course. Total critical care spent is 30 mins- Plan of care discussed with Dr. Brandon Cruz /staff/labs/meds review. NOELLE HYMAN Oct 26, 2016 10:47
[2016-10-26 11:12] LABS: ANISOCYTOSIS 1+; BURR CELLS FEW; EOSINOPHILS # 1.8 10^3/ul (0.0-0.5); MONOCYTE # 3.3 10^3/ul (0.3-0.9); NEUTROPHIL # 15.3 10^3/ul (1.6-7.5); POIKILOCYTOSIS 1+; POLYCHROMASIA 1+
[2016-10-26 11:13] LABS: PLATELET ESTIMATE PLT APPEAR INCREASED; PLATELETS CLUMPS MANY
--- NOTE | 2016-10-26 11:18 | CONS ---
Date/Time of Note Date/Time of Note DATE: 10/26/16 TIME: 11:08 Assessment/Plan Assessment/Plan Chief Complaint/Hosp Course ID PROGRESS NOTE TOTAL ABX DAY # => 1. Colistin. 2. Zyvox 3. Flagyl. 4. Status post Voriconazole. 24H INTERVAL SUMMARY => TNS back to ICU Rapid Response for Afib w/RVR (+)Low grade temps, WBC rising * Non-communicative on Vent, VSS, NAD * MICROBIOLOGY: Blood and urine cultures since 10/19/2016 negative. s/p Glabrata UTI 10/07/16 PHYSICAL EXAMINATION: GENERAL: Chronic ill, vented, contracted hands, generalized dependent edema HEENT: Unremarkable NECK: Trach -> Secure to Vent CHEST: Equal chest rise bilaterally, without dyspnea on observation HEART: Pulse RRR ABDOMEN: Soft/peg EXTREMITIES: Warm SKIN: See hard chart skin assessment= multiple decubs ID ASSESSMENT: 81 yo M w/PMHx CVA w/Dementia, contracted extremities, VDRF, Peg admit with: 1. Admited w/Severe sepsis with shock=> RESOLVED was up on TELE, now back to ICU for Afib W/RVR * s/p Status post Bacteroides fragilis and Escherichia coli bacteremia on admission/Escherichia coli urinary tract infection 2. Afib w/RVR s/p Rapid Response TNS back to ICU 10/26/16 am 3. Healthcare-associated pneumonia. 4. Anemia w/concern for Probable GI bleed (Coffee ground drainage from G tube) 5. Multiple infected decubitus on admission w/necrosis and deep tissue injury= > Polymicrobial MDRO * Multiple wounds with left trochanteric osteomyelitis. 6. Persistent diarrhea, stool for Clostridium difficile negative. 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 7. Coronary artery disease and history of non-ST elevation [place] 8. Renal insufficiency -> s/p ANGELICA resolved (+)MRSA Nares =>s/p Bactroban INVASIVES: Trach, Peg, Cee, Rectal Tube, PICC 10/22/2016. ABX ALLERGY: KNDA CURRENT ABX: => 1. Colistin. 2. Zyvox 3. Flagyl. 4. Status post Voriconazole. ID RECOMMENDATIONS: 1. Continue current ABX =>Repeat UA C&S . . . . Problems: Consultation Date/Type/Reason Admit Date/Time Sep 24, 2016 at 03:19 Initial Consult Date 09/24/16 Type of Consultation: ID Referring Provider: FELIX LBAKE DO Exam/Review of Systems Vital Signs Vitals Vital Signs Date Time Temp Pulse Resp B/P Pulse Ox O2 Delivery O2 Flow Rate FiO2 10/26/16 10:00 98 28 93/65 99 10/26/16 09:00 Mechanical Ventilator 10/26/16 06:25 98.2 10/26/16 04:50 30 Intake and Output 10/25/16 10/25/16 10/26/16 15:00 23:00 07:00 Intake Total 400 ml 1430 ml 365 ml Output Total 300 ml 230 ml Balance 400 ml 1130 ml 135 ml Results Result Diagram: 10/26/16 0635 10/26/16 0635 Results 24 hrs Laboratory Tests Test 10/26/16 06:35 White Blood Count 25.1 #H Red Blood Count 3.24 L Hemoglobin 8.6 L Hematocrit 28.5 L Mean Corpuscular Volume 88.0 Mean Corpuscular Hemoglobin 26.5 L Mean Corpuscular Hemoglobin Concent 30.2 L Red Cell Distribution Width 19.8 H Platelet Count 432 #H Mean Platelet Volume 11.8 H Sodium Level 136 Potassium Level 4.0 Chloride Level 107 Carbon Dioxide Level 18 L Anion Gap 15 Blood Urea Nitrogen 30 H Creatinine 1.27 H Glucose Level 99 Calcium Level 7.0 L Phosphorus Level 4.5 Magnesium Level 1.8 Medications Medications Current Medications Acetaminophen (Tylenol Supp) 650 mg Q4H PRN [place] PAIN LEVEL 1-3 OR FEVER; Start 09/24/16 at 03:00 Eye Lubricant (Artificial Tears Oph) 1 drop TID BOTH EYES Last administered on 10/26/16 09:45; Admin Dose 1 DROP; Start 09/24/16 at 09:00 Sodium Hypochlorite (Dakin'S (1/4 Strength)) 1 applic BID IRR Last administered on 10/26/16 08:57; Admin Dose 1 APPLIC; Start 09/24/16 at 21:00 Collagenase (Santyl) 1 applic DAILY TOP Last administered on 10/26/16 08:57; Admin Dose 1 APPLIC; Start 09/24/16 at 20:30 Miscellaneous Information 1 ea NOTE XX ; Start 09/24/16 at 21:00 Glucose (Glutose) 15 gm Q15M PRN PO DECREASED GLUCOSE; Start 09/24/16 at 21:00 Glucose (Glutose) 22.5 gm Q15M PRN PO DECREASED GLUCOSE; Start 09/24/16 at 21: 00 Dextrose (D50w Syringe) 25 ml Q15M PRN IV DECREASED GLUCOSE; Start 09/24/16 at 21:00 Dextrose (D50w Syringe) 50 ml Q15M PRN IV DECREASED GLUCOSE; Start 09/24/16 at 21:00 Glucagon (Glucagen) 1 mg Q15M PRN IM DECREASED GLUCOSE; Start 09/24/16 at 21:00 Glucose (Glutose) 15 gm Q15M PRN BUCCAL DECREASED GLUCOSE; Start 09/24/16 at 21 :00 Vancomycin HCl (Vancomycin Oral Syringe) 250 mg Q6 PO Last administered on 17:15; Admin Dose 250 MG; Start 09/26/16 at 18:00; Status Future Hold Lactobacillus Acidoph/Bulgaricus (Floranex) 1 tab TID PO Last administered on 13:22; Admin Dose 1 TAB; Start 09/26/16 at 21:00; Status Future Hold Atorvastatin Calcium (Lipitor) 20 mg QHS GTB Last administered on 10/05/16 21: 42; Admin Dose 20 MG; Start 09/28/16 at 21:00; Status Future Hold Finasteride (Proscar) 5 mg DAILY GTB Last administered on 10/06/16 09:12; Admin Dose 5 MG; Start 09/29/16 at 09:00; Status Future Hold Multivitamins Therapeutic (Theragran) 1 tab DAILY GTB Last administered on 09:12; Admin Dose 1 TAB; Start 09/29/16 at 09:00; Status Future Hold Zinc Sulfate (Zinc Sulfate) 220 mg DAILY NGT Last administered on 10/06/16 09: 13; Admin Dose 220 MG; Start 09/29/16 at 09:00; Status Future Hold Ondansetron HCl (Zofran Inj) 4 mg Q6H PRN IV NAUSEA AND/OR VOMITING Last administered on 10/13/16 16:10; Admin Dose 4 MG; Start 09/29/16 at 07:30 Acetaminophen 650 mg 650 mg Q6H PRN GTB PAIN AND OR ELEVATED TEMP Last administered on 10/25/16 20:50; Admin Dose 650 MG; Start 10/02/16 at 08:00 Metronidazole (Flagyl 500 Mg (Pmx)) 100 ml @ 100 mls/hr Q8 IVPB Last administered on 10/26/16 05:21; Admin Dose 100 MLS/HR; Start 10/02/16 at 14:00 Midodrine 10 mg 10 mg TID@,,17 PO Last administered on 10/06/16 17:15; Admin Dose 10 MG; Start 10/06/16 at 01:00; Status Future Hold Linezolid (Zyvox 600mg/D5W (Pmx)) 300 ml @ 300 mls/hr Q12 IVPB Last administered on 10/26/16 09:45; Admin Dose 300 MLS/HR; Start 10/06/16 at 21:00 Levothyroxine Sodium (Synthroid Iv) 12.5 mcg DAILY@06 IV Last administered on 05:22; Admin Dose 12.5 MCG; Start 10/07/16 at 06:00 Metoclopramide HCl 5 mg 5 mg Q8 IV Last administered on 10/26/16 05:22; Admin Dose 5 MG; Start 10/06/16 at 22:00 Colistimethate Sodium/Sodium Chloride (Coly-Mycin/NS) 100 ml @ 200 mls/hr Q12 IVPB Last administered on 10/26/16 08:33; Admin Dose 200 MLS/HR; Start at 13:30 Lansoprazole (Prevacid) 30 mg BID@06,18 GTB Last administered on 10/26/16 05: 22; Admin Dose 30 MG; Start 10/21/16 at 18:00 IV Flush (NS 10 ml) 10 ml PRN PRN IV IV PROTOCOL; Start 10/22/16 at 14:30 Amiodarone HCl 400 mg 400 mg BID NGT Last administered on 10/26/16 08:34; Admin Dose 400 MG; Start 10/25/16 at 12:30 Norepinephrine 250 ml @ 1.875 mls/ hr TITRATE IV Last administered on 07:31; Admin Dose 37.5 MLS/HR; Start 10/26/16 at 07:00; Stop 10/26/16 at 12 :00 Norepinephrine/ Dextrose (Levophed/D5W) 500 ml @ 1.87 mls/hr TITRATE IV ; Start 10/26/16 at 12:00 KUSHAL HOUSE NP Oct 26, 2016 11:18
--- NOTE | 2016-10-26 13:45 | CONS ---
Date/Time of Note Date/Time of Note DATE: 10/26/16 TIME: 13:41 Consult Date/Type/Reason Admit Date/Time Sep 24, 2016 at 03:19 Initial Consult Date 09/24/16 Type of Consultation: Pulm/CCM Ordering Provider: FELIX BLAKE DO Subjective s/p Afib with RVR; now in shock in ICU on levophed gtt. Objective Vital Signs Date Time Temp Pulse Resp B/P Pulse Ox O2 Delivery O2 Flow Rate FiO2 10/26/16 10:00 98 28 93/65 99 10/26/16 09:00 Mechanical Ventilator 10/26/16 06:25 98.2 10/26/16 04:50 30 Intake and Output 10/25/16 10/25/16 10/26/16 15:00 23:00 07:00 Intake Total 400 ml 1430 ml 365 ml Output Total 300 ml 230 ml Balance 400 ml 1130 ml 135 ml Exam HEENT: Pupils equal, round, and reactive to light. Tracheostomy site clean and intact. CARDIAC: S1, S2, CHEST: Diminished air entry bilaterally. ABDOMEN: Mildly distended. No bowel sounds. EXTREMITIES: No cyanosis, clubbing edema +1; ++ stage IV sacral decubs Results/Medications Result Diagram: 10/26/16 0635 10/26/16 0635 Results 24 hrs Laboratory Tests Test 10/26/16 06:35 White Blood Count 25.1 #H Red Blood Count 3.24 L Hemoglobin 8.6 L Hematocrit 28.5 L Mean Corpuscular Volume 88.0 Mean Corpuscular Hemoglobin 26.5 L Mean Corpuscular Hemoglobin Concent 30.2 L Red Cell Distribution Width 19.8 H Platelet Count 432 #H Mean Platelet Volume 11.8 H Neutrophils % 61.0 Band Neutrophils % 2.0 Lymphocytes % 16.0 Monocytes % 13.0 H Eosinophils % 7.0 Metamyelocytes % 1.0 H Neutrophils # 15.3 H Lymphocytes # 4.0 H Monocytes # 3.3 H Eosinophils # 1.8 H Metamyelocytes # 0.3 Platelet Estimate PLT APPEAR INCREASED Clumped Platelets MANY Polychromasia 1+ Poikilocytosis 1+ Anisocytosis 1+ Sodium Level 136 Potassium Level 4.0 Chloride Level 107 Carbon Dioxide Level 18 L Anion Gap 15 Blood Urea Nitrogen 30 H Creatinine 1.27 H Glucose Level 99 Calcium Level 7.0 L Phosphorus Level 4.5 Magnesium Level 1.8 Medications Current Medications Acetaminophen (Tylenol Supp) 650 mg Q4H PRN [place] PAIN LEVEL 1-3 OR FEVER; Start 09/24/16 at 03:00 Eye Lubricant (Artificial Tears Oph) 1 drop TID BOTH EYES Last administered on 10/26/16 09:45; Admin Dose 1 DROP; Start 09/24/16 at 09:00 Sodium Hypochlorite (Dakin'S (1/4 Strength)) 1 applic BID IRR Last administered on 10/26/16 08:57; Admin Dose 1 APPLIC; Start 09/24/16 at 21:00 Collagenase (Santyl) 1 applic DAILY TOP Last administered on 10/26/16 08:57; Admin Dose 1 APPLIC; Start 09/24/16 at 20:30 Miscellaneous Information 1 ea NOTE XX ; Start 09/24/16 at 21:00 Glucose (Glutose) 15 gm Q15M PRN PO DECREASED GLUCOSE; Start 09/24/16 at 21:00 Glucose (Glutose) 22.5 gm Q15M PRN PO DECREASED GLUCOSE; Start 09/24/16 at 21: 00 Dextrose (D50w Syringe) 25 ml Q15M PRN IV DECREASED GLUCOSE; Start 09/24/16 at 21:00 Dextrose (D50w Syringe) 50 ml Q15M PRN IV DECREASED GLUCOSE; Start 09/24/16 at 21:00 Glucagon (Glucagen) 1 mg Q15M PRN IM DECREASED GLUCOSE; Start 09/24/16 at 21:00 Glucose (Glutose) 15 gm Q15M PRN BUCCAL DECREASED GLUCOSE; Start 09/24/16 at 21 :00 Vancomycin HCl (Vancomycin Oral Syringe) 250 mg Q6 PO Last administered on 17:15; Admin Dose 250 MG; Start 09/26/16 at 18:00; Status Future Hold Lactobacillus Acidoph/Bulgaricus (Floranex) 1 tab TID PO Last administered on 13:22; Admin Dose 1 TAB; Start 09/26/16 at 21:00; Status Future Hold Atorvastatin Calcium (Lipitor) 20 mg QHS GTB Last administered on 10/05/16 21: 42; Admin Dose 20 MG; Start 09/28/16 at 21:00; Status Future Hold Finasteride (Proscar) 5 mg DAILY GTB Last administered on 10/06/16 09:12; Admin Dose 5 MG; Start 09/29/16 at 09:00; Status Future Hold Multivitamins Therapeutic (Theragran) 1 tab DAILY GTB Last administered on 09:12; Admin Dose 1 TAB; Start 09/29/16 at 09:00; Status Future Hold Zinc Sulfate (Zinc Sulfate) 220 mg DAILY NGT Last administered on 10/06/16 09: 13; Admin Dose 220 MG; Start 09/29/16 at 09:00; Status Future Hold Ondansetron HCl (Zofran Inj) 4 mg Q6H PRN IV NAUSEA AND/OR VOMITING Last administered on 10/13/16 16:10; Admin Dose 4 MG; Start 09/29/16 at 07:30 Acetaminophen 650 mg 650 mg Q6H PRN GTB PAIN AND OR ELEVATED TEMP Last administered on 10/25/16 20:50; Admin Dose 650 MG; Start 10/02/16 at 08:00 Metronidazole (Flagyl 500 Mg (Pmx)) 100 ml @ 100 mls/hr Q8 IVPB Last administered on 10/26/16 05:21; Admin Dose 100 MLS/HR; Start 10/02/16 at 14:00 Midodrine 10 mg 10 mg TID@,, PO Last administered on 10/06/16 17:15; Admin Dose 10 MG; Start 10/06/16 at 01:00; Status Future Hold Linezolid (Zyvox 600mg/D5W (Pmx)) 300 ml @ 300 mls/hr Q12 IVPB Last administered on 10/26/16 09:45; Admin Dose 300 MLS/HR; Start 10/06/16 at 21:00 Levothyroxine Sodium (Synthroid Iv) 12.5 mcg DAILY@06 IV Last administered on 05:22; Admin Dose 12.5 MCG; Start 10/07/16 at 06:00 Metoclopramide HCl 5 mg 5 mg Q8 IV Last administered on 10/26/16 05:22; Admin Dose 5 MG; Start 10/06/16 at 22:00 Colistimethate Sodium/Sodium Chloride (Coly-Mycin/NS) 100 ml @ 200 mls/hr Q12 IVPB Last administered on 10/26/16 08:33; Admin Dose 200 MLS/HR; Start at 13:30 Lansoprazole (Prevacid) 30 mg BID@06,18 GTB Last administered on 10/26/16 05: 22; Admin Dose 30 MG; Start 10/21/16 at 18:00 IV Flush (NS 10 ml) 10 ml PRN PRN IV IV PROTOCOL; Start 10/22/16 at 14:30 Amiodarone HCl 400 mg 400 mg BID NGT Last administered on 10/26/16 08:34; Admin Dose 400 MG; Start 10/25/16 at 12:30 Norepinephrine/ Dextrose (Levophed/D5W) 500 ml @ 1.87 mls/hr TITRATE IV ; Start 10/26/16 at 12:00 Assessment/Plan Additional Assessment/Plan IMP: 1. Septic shock secondary to multiple decubitus ulcers vs.line related 2. AFib with RVR--now resolved 3. Vent dependent respiratory failure 4. Dysphagia with G-tube 5. Persistent leukocytosis 6. History of renal insufficiency RECS: 1. Continue mechanical ventilation 2. Antibiotics per infectious diseases 3. Levophed gtt to MAP > 65 4. Wound care 5. [place] cultures; including from PICC; check CXR 35 min cc time GODFREY GILLILAND MD Oct 26, 2016 13:45
--- NOTE | 2016-10-26 14:07 | PN ---
Date/Time of Note Date/Time of Note DATE: 10/26/16 TIME: 14:04 Assessment/Plan VTE Prophylaxis VTE Prophylaxis Intervention: heparin Lines/Catheters IV [facility]ter Type (from [facility]): PICC Line Central line still needed: Yes Urinary Cath still in place: Yes Reason Cath still needed: urinary retention Assessment/Plan Problems: (1) Decubitus ulcers Status: Chronic Comment: This is acting as a source of infection for this gentleman. We will continue with aggressive treatment but this is a poor prognostic feature given the underlying medical issues Qualifiers: Pressure ulcer location: contiguous region involving back and buttock Pressure ulcer stage: stage 4 Laterality: unspecified laterality Qualified Code: L89.44 - Pressure ulcer of contiguous region involving back and buttock, stage 4, unspecified laterality (2) Septic shock Status: Acute Comment: He is on pressor support antibiotic continue aggressive treatment including ventilator support (3) Hypotension Status: Acute Comment: On treat Qualifiers: Hypotension type: other hypotension type Qualified Code: I95.89 - Other specified hypotension Assessment/Plan Chronic debilitated state-overall his quality of life needs to be assessed in the grand scheme of things and how far to push this. I believe this would be appropriate for at least a joint family meeting if not a formalized biomedical ethics consultation if the family requests Subjective 24 Hr Interval Summary Free Text/Dictation Elderly male lying in bed with contractures of the left upper extremity and lower extremities. He opens his eyes but is not responsive to questions Subjective hx not possible: pt critical status Exam/Review of Systems Vital Signs Vitals Vital Signs Date Time Temp Pulse Resp B/P Pulse Ox O2 Delivery O2 Flow Rate FiO2 10/26/16 12:00 107 10/26/16 10:00 28 93/65 99 10/26/16 09:00 Mechanical Ventilator 10/26/16 06:25 98.2 10/26/16 04:50 30 Intake and Output 10/25/16 10/25/16 10/26/16 15:00 23:00 07:00 Intake Total 400 ml 1430 ml 365 ml Output Total 300 ml 230 ml Balance 400 ml 1130 ml 135 ml Exam Neck: non-tender, supple Respiratory: clear to auscultation, normal air movement Cardiovascular: nl pulses, regular rate and rhythm Results Result Diagram: 10/26/16 0635 10/26/16 0635 Results 24 hrs Laboratory Tests Test 10/26/16 06:35 White Blood Count 25.1 #H Red Blood Count 3.24 L Hemoglobin 8.6 L Hematocrit 28.5 L Mean Corpuscular Volume 88.0 Mean Corpuscular Hemoglobin 26.5 L Mean Corpuscular Hemoglobin Concent 30.2 L Red Cell Distribution Width 19.8 H Platelet Count 432 #H Mean Platelet Volume 11.8 H Neutrophils % 61.0 Band Neutrophils % 2.0 Lymphocytes % 16.0 Monocytes % 13.0 H Eosinophils % 7.0 Metamyelocytes % 1.0 H Neutrophils # 15.3 H Lymphocytes # 4.0 H Monocytes # 3.3 H Eosinophils # 1.8 H Metamyelocytes # 0.3 Platelet Estimate PLT APPEAR INCREASED Clumped Platelets MANY Polychromasia 1+ Poikilocytosis 1+ Anisocytosis 1+ Sodium Level 136 Potassium Level 4.0 Chloride Level 107 Carbon Dioxide Level 18 L Anion Gap 15 Blood Urea Nitrogen 30 H Creatinine 1.27 H Glucose Level 99 Calcium Level 7.0 L Phosphorus Level 4.5 Magnesium Level 1.8 Medications Medications Current Medications Acetaminophen (Tylenol Supp) 650 mg Q4H PRN [place] PAIN LEVEL 1-3 OR FEVER; Start 09/24/16 at 03:00 Eye Lubricant (Artificial Tears Oph) 1 drop TID BOTH EYES Last administered on 10/26/16 09:45; Admin Dose 1 DROP; Start 09/24/16 at 09:00 Sodium Hypochlorite (Dakin'S (1/4 Strength)) 1 applic BID IRR Last administered on 10/26/16 08:57; Admin Dose 1 APPLIC; Start 09/24/16 at 21:00 Collagenase (Santyl) 1 applic DAILY TOP Last administered on 10/26/16 08:57; Admin Dose 1 APPLIC; Start 09/24/16 at 20:30 Miscellaneous Information 1 ea NOTE XX ; Start 09/24/16 at 21:00 Glucose (Glutose) 15 gm Q15M PRN PO DECREASED GLUCOSE; Start 09/24/16 at 21:00 Glucose (Glutose) 22.5 gm Q15M PRN PO DECREASED GLUCOSE; Start 09/24/16 at 21: 00 Dextrose (D50w Syringe) 25 ml Q15M PRN IV DECREASED GLUCOSE; Start 09/24/16 at 21:00 Dextrose (D50w Syringe) 50 ml Q15M PRN IV DECREASED GLUCOSE; Start 09/24/16 at 21:00 Glucagon (Glucagen) 1 mg Q15M PRN IM DECREASED GLUCOSE; Start 09/24/16 at 21:00 Glucose (Glutose) 15 gm Q15M PRN BUCCAL DECREASED GLUCOSE; Start 09/24/16 at 21 :00 Vancomycin HCl (Vancomycin Oral Syringe) 250 mg Q6 PO Last administered on 17:15; Admin Dose 250 MG; Start 09/26/16 at 18:00; Status Future Hold Lactobacillus Acidoph/Bulgaricus (Floranex) 1 tab TID PO Last administered on 13:22; Admin Dose 1 TAB; Start 09/26/16 at 21:00; Status Future Hold Atorvastatin Calcium (Lipitor) 20 mg QHS GTB Last administered on 10/05/16 21: 42; Admin Dose 20 MG; Start 09/28/16 at 21:00; Status Future Hold Finasteride (Proscar) 5 mg DAILY GTB Last administered on 10/06/16 09:12; Admin Dose 5 MG; Start 09/29/16 at 09:00; Status Future Hold Multivitamins Therapeutic (Theragran) 1 tab DAILY GTB Last administered on 09:12; Admin Dose 1 TAB; Start 09/29/16 at 09:00; Status Future Hold Zinc Sulfate (Zinc Sulfate) 220 mg DAILY NGT Last administered on 10/06/16 09: 13; Admin Dose 220 MG; Start 09/29/16 at 09:00; Status Future Hold Ondansetron HCl (Zofran Inj) 4 mg Q6H PRN IV NAUSEA AND/OR VOMITING Last administered on 10/13/16 16:10; Admin Dose 4 MG; Start 09/29/16 at 07:30 Acetaminophen 650 mg 650 mg Q6H PRN GTB PAIN AND OR ELEVATED TEMP Last administered on 10/25/16 20:50; Admin Dose 650 MG; Start 10/02/16 at 08:00 Metronidazole (Flagyl 500 Mg (Pmx)) 100 ml @ 100 mls/hr Q8 IVPB Last administered on 10/26/16 05:21; Admin Dose 100 MLS/HR; Start 10/02/16 at 14:00 Midodrine 10 mg 10 mg TID@,,17 PO Last administered on 10/06/16 17:15; Admin Dose 10 MG; Start 10/06/16 at 01:00; Status Future Hold Linezolid (Zyvox 600mg/D5W (Pmx)) 300 ml @ 300 mls/hr Q12 IVPB Last administered on 10/26/16 09:45; Admin Dose 300 MLS/HR; Start 10/06/16 at 21:00 Levothyroxine Sodium (Synthroid Iv) 12.5 mcg DAILY@06 IV Last administered on 05:22; Admin Dose 12.5 MCG; Start 10/07/16 at 06:00 Metoclopramide HCl 5 mg 5 mg Q8 IV Last administered on 10/26/16 05:22; Admin Dose 5 MG; Start 10/06/16 at 22:00 Colistimethate Sodium/Sodium Chloride (Coly-Mycin/NS) 100 ml @ 200 mls/hr Q12 IVPB Last administered on 10/26/16 08:33; Admin Dose 200 MLS/HR; Start at 13:30 Lansoprazole (Prevacid) 30 mg BID@06,18 GTB Last administered on 10/26/16 05: 22; Admin Dose 30 MG; Start 10/21/16 at 18:00 IV Flush (NS 10 ml) 10 ml PRN PRN IV IV PROTOCOL; Start 10/22/16 at 14:30 Amiodarone HCl 400 mg 400 mg BID NGT Last administered on 10/26/16 08:34; Admin Dose 400 MG; Start 10/25/16 at 12:30 Norepinephrine/ Dextrose (Levophed/D5W) 500 ml @ 1.87 mls/hr TITRATE IV ; Start 10/26/16 at 12:00 LLOYD GARZON MD Oct 26, 2016 14:07
--- NOTE | 2016-10-26 18:14 | RADRPT ---
PROCEDURE: XR Chest. CLINICAL INDICATION: Shortness of breath. TECHNIQUE: Single frontal chest x-ray. COMPARISON: 10/22/2016 FINDINGS: Tracheostomy tube tip is at the level of clavicles. Right PICC line tips in the SVC. Heart is enlarg ed. Pulmonary vessels are top normal in caliber. There is elevation left hemidiaphragm with increase d left pleural effusion with basilar atelectasis versus infiltrate. There is an unchanged small rig ht pleural effusion with basilar atelectasis. There is no pneumothorax. There is dextroscoliosis. There are degenerative changes of the thoracic spine.. IMPRESSION: There is elevation left hemidiaphragm with increased left pleural effusion and basilar atelectasis v ersus infiltrate. Unchanged small right pleural effusion with basilar atelectasis. Otherwise no ch car[place]. RPTAT: [facility] .Ryder Garcia MD, Date Time Electronically viewed and signed by .Ryder Garcia MD, on 10/26/2016 18:14 .K/
--- NOTE | 2016-10-26 21:32 | PN ---
DATE: 10/26/2016 SUBJECTIVE: Penoscrotal edema. The patient himself is not able to give any complaints. He was kelli arently transferred to the ICU yesterday because of low blood pressure. The patient presently appea rs to be comfortable. OBJECTIVE: VITAL SIGNS: Temperature is 98.8, blood pressure 92/66, pulse 105, respiration is 19. GENITOURINARY: Cee catheter is draining clear urine. He is still, however, has significant penos crotal edema. The urine is clear in the catheter. LABORATORY DATA: CBC shows a white count of 25.1, hemoglobin 8.6, hematocrit 28.5. BUN 30, creatin ine 1.27, sodium 136, potassium 4.0, chloride 107, CO2 18. IMPRESSION: Penoscrotal edema. The patient has an indwelling Cee catheter that is draining clear urine. He is on linezolid antibiotic. PLAN: To keep the Cee catheter in, and elevate the scrotum and the penis on a towel as already eaton s been ordered. Dictated By: MISHEL WOODWARD/ELIZABETH Conf#: [id number] DID#: [id number]
[2016-10-27] VITALS (106 sets, daily range): BP systolic 85–105; BP diastolic 57–84; PULSE 95–123; RESP 16–40
[2016-10-27] MEDS: IPRATROPIUM (HFA) 12.9 GM INHALER INH SCH ×4 (02:00→19:21)
[2016-10-27] MEDS: ALBUTEROL 18 GM INHALER INH SCH ×4 (02:00→19:21)
[2016-10-27 04:58] LABS: ADD SCAN DIFF NO
[2016-10-27 05:16] LABS: ALBUMIN 1.6 g/dl (3.3-4.9)
[2016-10-27 05:17] LABS: POTASSIUM 3.8 mmol/L (3.5-5.1)
[2016-10-27 05:19] LABS: ALBUMIN/GLOBULIN RATIO 0.69; CREATININE 1.3 mg/dl (0.61-1.24); TOTAL PROTEIN 3.9 g/dl (6.1-8.1)
[2016-10-27 05:20] LABS: CALCIUM 6.8 mg/dl (8.4-10.2)
[2016-10-27] MEDS: LEVOTHYROXINE 100 MCG VIAL IV SCH (05:40)
[2016-10-27] MEDS: METOCLOPRAMIDE 10 MG INJ IV SCH ×3 (05:41→21:29)
[2016-10-27] MEDS: LANSOPRAZOLE 30 MG CAP GTB SCH ×2 (05:41→18:05)
[2016-10-27] MEDS: metroNIDAZOLE 500 MG/NS (PMX) 100 ML IVPB SCH ×3 (05:41→21:29)
[2016-10-27 07:11] LABS: ABNORMAL IP MESSAGE 1; BASOPHIL # 0.1 10^3/ul (0.0-0.1); BASOPHILS % 0.6 % (0.0-2.0); EOSINOPHILS # 0.9 10^3/ul (0.0-0.5); EOSINOPHILS % 4.2 % (0.0-7.0); HEMATOCRIT 27.2 % (42.0-52.0); HEMOGLOBIN 8.2 g/dl (14.0-18.0); LYMPHOCYTES # 2.7 10^3/ul (0.8-2.9); LYMPHOCYTES % 12.7 % (15.0-51.0); MEAN CORPUSCULAR HEMOGLOBIN 27.1 pg (29.0-33.0); MEAN CORPUSCULAR HGB CONC 30.1 g/dl (32.0-37.0); MEAN CORPUSCULAR VOLUME 89.8 fl (82.0-101.0); MONOCYTE # 2.6 10^3/ul (0.3-0.9); MONOCYTES % 12.1 % (0.0-11.0); NEUTROPHIL # 14.8 10^3/ul (1.6-7.5); NEUTROPHILS % 69.5 % (39.0-77.0); NUCLEATED RED BLOOD CELLS% 0.1 /100WBC (0.0-0.0); RED BLOOD COUNT 3.03 10^6/ul (4.70-6.10); WHITE BLOOD COUNT 21.2 10^3/ul (4.8-10.8)
--- NOTE | 2016-10-27 08:30 | PN ---
Date/Time of Note Date/Time of Note DATE: 10/27/16 TIME: 08:26 Assessment/Plan VTE Prophylaxis VTE Prophylaxis Intervention: other Lines/Catheters IV C[facility]ter Type (from [facility] PICC Line Central line still needed: Yes Urinary Cath still in place: Yes Reason Cath still needed: urinary retention (Chronic urinary retention) Assessment/Plan Problems: (1) Atrial fibrillation with RVR Status: Chronic Comment: His rate is somewhat better controlled. However he is still on pressor support to maintain his blood pressure due to the acute sepsis. He is on antibiotic therapy. Prognosis is poor (2) Debility Status: Chronic Comment: He has been a long-term debilitated state maintained in an ECF. Please see Dr. Garcia's first note. His overall long-term prognosis for improvement from this standpoint is nil. He can be maintained this way however is getting decubiti which are acting as a nidus of infection. This will be a recurrent issue (3) Gastrostomy tube in place Status: Chronic Comment: As above (4) Respiratory failure, chronic Status: Chronic Comment: He will need to be maintained on ventilator support. Overall prognosis for improvement from this is nil Qualifiers: Respiratory failure complication: hypoxia and hypercapnia Qualified Code: J96.11 - Chronic respiratory failure with hypoxia and hypercapnia (5) Coronary artery disease Status: Chronic Comment: Stable and inactive Qualifiers: Coronary Disease-Associated Artery/Lesion type: tribal artery [place] vs. transplanted heart: tribal heart Associated angina: without angina Qualified Code: I25.10 - Coronary artery disease involving tribal coronary artery of tribal heart without angina pectoris (6) Cognitive deficit status post cerebrovascular accident Status: Chronic Comment: His ability to interact with the outside world is extremely limited. No chance of improvement (7) Decubitus ulcers Status: Chronic Comment: Multiple decubiti due to his long-term debilitation. 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 He has contractures and no ability for rehabilitation (10) Dysphagia status post cerebrovascular accident Status: Chronic Comment: G-tube feeding Subjective 24 Hr Interval Summary Free Text/Dictation Hospital day #33 Subjective hx not possible: pt non-verbal, pt critical Exam/Review of Systems Vital Signs Vitals Vital Signs Date Time Temp Pulse Resp B/P Pulse Ox O2 Delivery O2 Flow Rate FiO2 10/27/16 06:45 100 22 98/70 100 10/27/16 05:48 30 10/27/16 04:00 98.3 10/27/16 03:45 Mechanical Ventilator Intake and Output 10/26/16 10/26/16 10/27/16 15:00 23:00 07:00 Intake Total 1274 ml 746.5 ml 546 ml Output Total 180 ml 230 ml 200 ml Balance 1094 ml 516.5 ml 346 ml Exam Elderly male who opens his eyes. He does not follow commands of any type Neck: non-tender, supple Respiratory: clear to auscultation, normal air movement Cardiovascular: edema (Diffuse edema), irregular rhythm, murmurs/extra sounds ( Aortic stenosis) Gastrointestinal: nl liver, spleen, non-tender, soft Extremities: other (Decubiti both lower extremities and especially on the proximal lower extremities extremities extending into the sacral region) Neurological: other (Contractures) Results Result Diagram: 10/27/16 0400 10/27/16 0400 Results 24 hrs Laboratory Tests Test 10/26/16 17:23 10/27/16 04:00 Bedside Glucose 77 White Blood Count 21.2 H Red Blood Count 3.03 L Hemoglobin 8.2 L Hematocrit 27.2 L Mean Corpuscular Volume 89.8 Mean Corpuscular Hemoglobin 27.1 L Mean Corpuscular Hemoglobin Concent 30.1 L Red Cell Distribution Width 20.0 H Platelet Count Pending Mean Platelet Volume Pending Neutrophils % 69.5 Lymphocytes % 12.7 L Monocytes % 12.1 H Eosinophils % 4.2 Basophils % 0.6 Nucleated Red Blood Cells % 0.1 H Neutrophils # 14.8 H Lymphocytes # 2.7 Monocytes # 2.6 H Eosinophils # 0.9 H Basophils # 0.1 Nucleated Red Blood Cells # 0.0 Sodium Level 126 L Potassium Level 3.8 Chloride Level 100 Carbon Dioxide Level 16 L Anion Gap 14 Blood Urea Nitrogen 30 H Creatinine 1.30 H Glucose Level 376 #H Lactic Acid Level 4.7 *H Calcium Level 6.8 L Total Bilirubin 0.0 L Direct Bilirubin 0.00 Indirect Bilirubin 0.0 Aspartate Amino Transf (AST/SGOT) 37 Alanine Aminotransferase (ALT/SGPT) 20 Alkaline Phosphatase 112 Total Protein 3.9 L Albumin 1.6 L Globulin 2.30 Albumin/Globulin Ratio 0.69 Medications Medications Current Medications Acetaminophen (Tylenol Supp) 650 mg Q4H PRN [place] PAIN LEVEL 1-3 OR FEVER; Start 09/24/16 at 03:00 Eye Lubricant (Artificial Tears Oph) 1 drop TID BOTH EYES Last administered on 10/26/16 13:00; Admin Dose 1 DROP; Start 09/24/16 at 09:00 Sodium Hypochlorite (Dakin'S (1/4 Strength)) 1 applic BID IRR Last administered on 10/26/16 21:00; Admin Dose 1 APPLIC; Start 09/24/16 at 21:00 Collagenase (Santyl) 1 applic DAILY TOP Last administered on 10/26/16 08:57; Admin Dose 1 APPLIC; Start 09/24/16 at 20:30 Miscellaneous Information 1 ea NOTE XX ; Start 09/24/16 at 21:00 Glucose (Glutose) 15 gm Q15M PRN PO DECREASED GLUCOSE; Start 09/24/16 at 21:00 Glucose (Glutose) 22.5 gm Q15M PRN PO DECREASED GLUCOSE; Start 09/24/16 at 21: 00 Dextrose (D50w Syringe) 25 ml Q15M PRN IV DECREASED GLUCOSE; Start 09/24/16 at 21:00 Dextrose (D50w Syringe) 50 ml Q15M PRN IV DECREASED GLUCOSE; Start 09/24/16 at 21:00 Glucagon (Glucagen) 1 mg Q15M PRN IM DECREASED GLUCOSE; Start 09/24/16 at 21:00 Glucose (Glutose) 15 gm Q15M PRN BUCCAL DECREASED GLUCOSE; Start 09/24/16 at 21 :00 Vancomycin HCl (Vancomycin Oral Syringe) 250 mg Q6 PO Last administered on 17:15; Admin Dose 250 MG; Start 09/26/16 at 18:00; Status Future Hold Lactobacillus Acidoph/Bulgaricus (Floranex) 1 tab TID PO Last administered on 13:22; Admin Dose 1 TAB; Start 09/26/16 at 21:00; Status Future Hold Atorvastatin Calcium (Lipitor) 20 mg QHS GTB Last administered on 10/05/16 21: 42; Admin Dose 20 MG; Start 09/28/16 at 21:00; Status Future Hold Finasteride (Proscar) 5 mg DAILY GTB Last administered on 10/06/16 09:12; Admin Dose 5 MG; Start 09/29/16 at 09:00; Status Future Hold Multivitamins Therapeutic (Theragran) 1 tab DAILY GTB Last administered on 09:12; Admin Dose 1 TAB; Start 09/29/16 at 09:00; Status Future Hold Zinc Sulfate (Zinc Sulfate) 220 mg DAILY NGT Last administered on 10/06/16 09: 13; Admin Dose 220 MG; Start 09/29/16 at 09:00; Status Future Hold Ondansetron HCl (Zofran Inj) 4 mg Q6H PRN IV NAUSEA AND/OR VOMITING Last administered on 10/13/16 16:10; Admin Dose 4 MG; Start 09/29/16 at 07:30 Acetaminophen 650 mg 650 mg Q6H PRN GTB PAIN AND OR ELEVATED TEMP Last administered on 10/25/16 20:50; Admin Dose 650 MG; Start 10/02/16 at 08:00 Metronidazole (Flagyl 500 Mg (Pmx)) 100 ml @ 100 mls/hr Q8 IVPB Last administered on 10/27/16 05:41; Admin Dose 100 MLS/HR; Start 10/02/16 at 14:00 Midodrine 10 mg 10 mg TID@,,17 PO Last administered on 10/06/16 17:15; Admin Dose 10 MG; Start 10/06/16 at 01:00; Status Future Hold Linezolid (Zyvox 600mg/D5W (Pmx)) 300 ml @ 300 mls/hr Q12 IVPB Last administered on 10/26/16 21:08; Admin Dose 300 MLS/HR; Start 10/06/16 at 21:00 Levothyroxine Sodium (Synthroid Iv) 12.5 mcg DAILY@06 IV Last administered on 05:40; Admin Dose 12.5 MCG; Start 10/07/16 at 06:00 Metoclopramide HCl 5 mg 5 mg Q8 IV Last administered on 10/27/16 05:41; Admin Dose 5 MG; Start 10/06/16 at 22:00 Colistimethate Sodium/Sodium Chloride (Coly-Mycin/NS) 100 ml @ 200 mls/hr Q12 IVPB Last administered on 10/26/16 21:08; Admin Dose 200 MLS/HR; Start at 13:30 Lansoprazole (Prevacid) 30 mg BID@06,18 GTB Last administered on 10/27/16 05: 41; Admin Dose 30 MG; Start 10/21/16 at 18:00 IV Flush (NS 10 ml) 10 ml PRN PRN IV IV PROTOCOL; Start 10/22/16 at 14:30 Amiodarone HCl 400 mg 400 mg BID NGT Last administered on 10/26/16 21:09; Admin Dose 400 MG; Start 10/25/16 at 12:30 Norepinephrine/ Dextrose (Levophed/D5W) 500 ml @ 1.87 mls/hr TITRATE IV Last administered on 10/27/16 06:42; Admin Dose 41.25 MLS/HR; Start 10/26/16 at 12: 00 LLOYD GARZON MD Oct 27, 2016 08:30
[2016-10-27] MEDS: SODIUM HYPOCHLORITE 0.125% 473 ML BTL IRR SCH ×2 (08:57→21:28)
[2016-10-27] MEDS: LINEZOLID 600 MG/D5W (PMX) 300 ML IVPB SCH ×2 (08:58→21:28)
[2016-10-27] MEDS: AMIODARONE 200 MG TAB NGT SCH ×2 (08:59→21:28)
[2016-10-27] MEDS: ARTIFICIAL TEARS 15 ML OPH BOTH EYES SCH ×2 (09:00→13:32)
[2016-10-27] MEDS: COLISTIMETHATE 75 MG in SOD CHLORIDE 0.9% 100 ML IVPB SCH ×2 (09:13→21:30)
[2016-10-27] MEDS: COLLAGENASE 30 GM TUBE TOP SCH (09:40)
[2016-10-27 09:53] LABS: PLATELET ESTIMATE PLT APPEAR INCREASED
[2016-10-27 09:54] LABS: PLATELET COUNT 834 10^3/UL (140-415)
[2016-10-27 11:01] LABS: MEAN PLATELET VOLUME 11.1 fl (7.4-10.4)
--- NOTE | 2016-10-27 11:01 | CONS ---
Date/Time of Note Date/Time of Note DATE: 10/27/16 TIME: 10:57 Consult Date/Type/Reason Admit Date/Time Sep 24, 2016 at 03:19 Initial Consult Date 09/24/16 Type of Consultation: Pulm/CCM Ordering Provider: FELIX BLAKE DO Objective Vital Signs Date Time Temp Pulse Resp B/P Pulse Ox O2 Delivery O2 Flow Rate FiO2 10/27/16 08:00 97 10/27/16 06:45 22 98/70 100 10/27/16 05:48 30 10/27/16 04:00 98.3 10/27/16 03:45 Mechanical Ventilator Intake and Output 10/26/16 10/26/16 10/27/16 15:00 23:00 07:00 Intake Total 1274 ml 746.5 ml 546 ml Output Total 180 ml 230 ml 200 ml Balance 1094 ml 516.5 ml 346 ml Results/Medications Result Diagram: 10/27/16 0400 10/27/16 0400 Results 24 hrs Laboratory Tests Test 10/26/16 17:23 10/27/16 04:00 Bedside Glucose 77 White Blood Count 21.2 H Red Blood Count 3.03 L Hemoglobin 8.2 L Hematocrit 27.2 L Mean Corpuscular Volume 89.8 Mean Corpuscular Hemoglobin 27.1 L Mean Corpuscular Hemoglobin Concent 30.1 L Red Cell Distribution Width 20.0 H Platelet Count 834 #H Mean Platelet Volume Pending Neutrophils % 69.5 Lymphocytes % 12.7 L Monocytes % 12.1 H Eosinophils % 4.2 Basophils % 0.6 Nucleated Red Blood Cells % 0.1 H Neutrophils # 14.8 H Lymphocytes # 2.7 Monocytes # 2.6 H Eosinophils # 0.9 H Basophils # 0.1 Nucleated Red Blood Cells # 0.0 Platelet Estimate PLT APPEAR INCREASED Large Platelets FEW Giant Platelets FEW Sodium Level 126 L Potassium Level 3.8 Chloride Level 100 Carbon Dioxide Level 16 L Anion Gap 14 Blood Urea Nitrogen 30 H Creatinine 1.30 H Glucose Level 376 #H Lactic Acid Level 4.7 *H Calcium Level 6.8 L Total Bilirubin 0.0 L Direct Bilirubin 0.00 Indirect Bilirubin 0.0 Aspartate Amino Transf (AST/SGOT) 37 Alanine Aminotransferase (ALT/SGPT) 20 Alkaline Phosphatase 112 Total Protein 3.9 L Albumin 1.6 L Globulin 2.30 Albumin/Globulin Ratio 0.69 Random Cortisol 14.7 Medications Current Medications Acetaminophen (Tylenol Supp) 650 mg Q4H PRN [place] PAIN LEVEL 1-3 OR FEVER; Start 09/24/16 at 03:00 Eye Lubricant (Artificial Tears Oph) 1 drop TID BOTH EYES Last administered on 10/26/16 13:00; Admin Dose 1 DROP; Start 09/24/16 at 09:00 Sodium Hypochlorite (Dakin'S (1/4 Strength)) 1 applic BID IRR Last administered on 10/27/16 08:57; Admin Dose 1 APPLIC; Start 09/24/16 at 21:00 Collagenase (Santyl) 1 applic DAILY TOP Last administered on 10/27/16 09:40; Admin Dose 1 APPLIC; Start 09/24/16 at 20:30 Miscellaneous Information 1 ea NOTE XX ; Start 09/24/16 at 21:00 Glucose (Glutose) 15 gm Q15M PRN PO DECREASED GLUCOSE; Start 09/24/16 at 21:00 Glucose (Glutose) 22.5 gm Q15M PRN PO DECREASED GLUCOSE; Start 09/24/16 at 21: 00 Dextrose (D50w Syringe) 25 ml Q15M PRN IV DECREASED GLUCOSE; Start 09/24/16 at 21:00 Dextrose (D50w Syringe) 50 ml Q15M PRN IV DECREASED GLUCOSE; Start 09/24/16 at 21:00 Glucagon (Glucagen) 1 mg Q15M PRN IM DECREASED GLUCOSE; Start 09/24/16 at 21:00 Glucose (Glutose) 15 gm Q15M PRN BUCCAL DECREASED GLUCOSE; Start 09/24/16 at 21 :00 Vancomycin HCl (Vancomycin Oral Syringe) 250 mg Q6 PO Last administered on 17:15; Admin Dose 250 MG; Start 09/26/16 at 18:00; Status Future Hold Lactobacillus Acidoph/Bulgaricus (Floranex) 1 tab TID PO Last administered on 13:22; Admin Dose 1 TAB; Start 09/26/16 at 21:00; Status Future Hold Atorvastatin Calcium (Lipitor) 20 mg QHS GTB Last administered on 10/05/16 21: 42; Admin Dose 20 MG; Start 09/28/16 at 21:00; Status Future Hold Finasteride (Proscar) 5 mg DAILY GTB Last administered on 10/06/16 09:12; Admin Dose 5 MG; Start 09/29/16 at 09:00; Status Future Hold Multivitamins Therapeutic (Theragran) 1 tab DAILY GTB Last administered on 09:12; Admin Dose 1 TAB; Start 09/29/16 at 09:00; Status Future Hold Zinc Sulfate (Zinc Sulfate) 220 mg DAILY NGT Last administered on 10/06/16 09: 13; Admin Dose 220 MG; Start 09/29/16 at 09:00; Status Future Hold Ondansetron HCl (Zofran Inj) 4 mg Q6H PRN IV NAUSEA AND/OR VOMITING Last administered on 10/13/16 16:10; Admin Dose 4 MG; Start 09/29/16 at 07:30 Acetaminophen 650 mg 650 mg Q6H PRN GTB PAIN AND OR ELEVATED TEMP Last administered on 10/25/16 20:50; Admin Dose 650 MG; Start 10/02/16 at 08:00 Metronidazole (Flagyl 500 Mg (Pmx)) 100 ml @ 100 mls/hr Q8 IVPB Last administered on 10/27/16 05:41; Admin Dose 100 MLS/HR; Start 10/02/16 at 14:00 Midodrine 10 mg 10 mg TID@,, PO Last administered on 10/06/16 17:15; Admin Dose 10 MG; Start 10/06/16 at 01:00; Status Future Hold Linezolid (Zyvox 600mg/D5W (Pmx)) 300 ml @ 300 mls/hr Q12 IVPB Last administered on 10/27/16 08:58; Admin Dose 300 MLS/HR; Start 10/06/16 at 21:00 Levothyroxine Sodium (Synthroid Iv) 12.5 mcg DAILY@06 IV Last administered on 05:40; Admin Dose 12.5 MCG; Start 10/07/16 at 06:00 Metoclopramide HCl 5 mg 5 mg Q8 IV Last administered on 10/27/16 05:41; Admin Dose 5 MG; Start 10/06/16 at 22:00 Colistimethate Sodium/Sodium Chloride (Coly-Mycin/NS) 100 ml @ 200 mls/hr Q12 IVPB Last administered on 10/27/16 09:13; Admin Dose 200 MLS/HR; Start at 13:30 Lansoprazole (Prevacid) 30 mg BID@06,18 GTB Last administered on 10/27/16 05: 41; Admin Dose 30 MG; Start 10/21/16 at 18:00 IV Flush (NS 10 ml) 10 ml PRN PRN IV IV PROTOCOL; Start 10/22/16 at 14:30 Amiodarone HCl 400 mg 400 mg BID NGT Last administered on 10/27/16 08:59; Admin Dose 400 MG; Start 10/25/16 at 12:30 Norepinephrine/ Dextrose (Levophed/D5W) 500 ml @ 1.87 mls/hr TITRATE IV Last administered on 10/27/16 06:42; Admin Dose 41.25 MLS/HR; Start 10/26/16 at 12: 00 Assessment/Plan Chief Complaint/Hosp Course nad, eyes open. on levophed- 22mcg/hr, BUE/BLE extremities edema. dw staff Problems: Additional Assessment/Plan 1. Acute kidney injury on chronic kidney disease. due to ATN from septic shock Cr 1.22 2. septic shock on levophed. Lactic acid- 4.7 3. severe metabolic acidosis s/p [place] drip, now HCO3 stable 4. Patient with intermittent episodes of tachycardia, telemetry reviewed with brief episodes of atrial fibrillation, sinus tachycardia.- on IV cardizem 5. History of chronic respiratory failure, status post tracheostomy, on ventilator. 6. History of G-tube. 7. Poor mental status due to the previous cerebrovascular accident. 8. History of dementia. 9. History of hypertension. 10. Hypocalcemia with Ca 6.8- likely pseudohypocalcemia, because corrected Ca with Serum albumin of 1.6 is 8.8-no symptoms of hypocalcemia 11. Hypomagnesemia- resolved PLAN: on Tube feeding, magnesium sulfate 2 gram IV x 1 dose now Hb 8.2 On IV Coly-mycin and IV zyvox, need to monitor renal function and K will follow up Further recommendations based on clinical course. Total critical care spent is 30 mins- Plan of care discussed with Dr. Brandon Cruz /staff/labs/meds review. NOELLE HYMAN Oct 27, 2016 11:01
[2016-10-27] MEDS ORDERED: SOD CHLORIDE 0.9% 1,000 ML IV SCH (12:30)
--- NOTE | 2016-10-27 13:17 | CONS ---
Date/Time of Note Date/Time of Note DATE: 10/27/16 TIME: 13:15 Assessment/Plan Assessment/Plan Additional Assessment/Plan Sepsis Preserved ejection fraction Moderate aortic stenosis Respiratory failure/Tracheostomy Coronary artery disease Anemia Paroxysmal atrial fibrillation rapid ventricular rates, currently sinus rhythm -Patient currently remains in sinus rhythm, continue amiodarone and will slowly titrate down to 200 mg twice a day. Maintain potassium above 4.0 and magnesium above 2.0. Consultation Date/Type/Reason Admit Date/Time Sep 24, 2016 at 03:19 Initial Consult Date 09/24/16 Type of Consultation: cv Referring Provider: FELIX BLAKE DO 24 HR Interval Summary Free Text/Dictation Patient seen and examined Exam/Review of Systems Vital Signs Vitals Vital Signs Date Time Temp Pulse Resp B/P Pulse Ox O2 Delivery O2 Flow Rate FiO2 10/27/16 12:00 103 10/27/16 11:30 23 90/58 100 10/27/16 11:00 Mechanical Ventilator 10/27/16 08:00 98.3 10/27/16 05:48 30 Intake and Output 10/26/16 10/26/16 10/27/16 15:00 23:00 07:00 Intake Total 1274 ml 746.5 ml 586 ml Output Total 180 ml 230 ml 230 ml Balance 1094 ml 516.5 ml 356 ml Exam Awake, no apparent distress Head: normocephalic Neck: other (Tracheostomy) Respiratory: other (Coarse breath sounds bilaterally, no wheezing) Cardiovascular: other, regular rate and rhythm Gastrointestinal: bowel sounds, distended, soft Extremities: edema Results Result Diagram: 10/27/16 0400 10/27/16 0400 Results 24 hrs Laboratory Tests Test 10/26/16 17:23 10/27/16 04:00 Bedside Glucose 77 White Blood Count 21.2 H Red Blood Count 3.03 L Hemoglobin 8.2 L Hematocrit 27.2 L Mean Corpuscular Volume 89.8 Mean Corpuscular Hemoglobin 27.1 L Mean Corpuscular Hemoglobin Concent 30.1 L Red Cell Distribution Width 20.0 H Platelet Count 834 #H Mean Platelet Volume 11.1 H Neutrophils % 69.5 Lymphocytes % 12.7 L Monocytes % 12.1 H Eosinophils % 4.2 Basophils % 0.6 Nucleated Red Blood Cells % 0.1 H Neutrophils # 14.8 H Lymphocytes # 2.7 Monocytes # 2.6 H Eosinophils # 0.9 H Basophils # 0.1 Nucleated Red Blood Cells # 0.0 Platelet Estimate PLT APPEAR INCREASED Large Platelets FEW Giant Platelets FEW Sodium Level 126 L Potassium Level 3.8 Chloride Level 100 Carbon Dioxide Level 16 L Anion Gap 14 Blood Urea Nitrogen 30 H Creatinine 1.30 H Glucose Level 376 #H Lactic Acid Level 4.7 *H Calcium Level 6.8 L Total Bilirubin 0.0 L Direct Bilirubin 0.00 Indirect Bilirubin 0.0 Aspartate Amino Transf (AST/SGOT) 37 Alanine Aminotransferase (ALT/SGPT) 20 Alkaline Phosphatase 112 Total Protein 3.9 L Albumin 1.6 L Globulin 2.30 Albumin/Globulin Ratio 0.69 Random Cortisol 14.7 Medications Medications Current Medications Acetaminophen (Tylenol Supp) 650 mg Q4H PRN [place] PAIN LEVEL 1-3 OR FEVER; Start 09/24/16 at 03:00 Eye Lubricant (Artificial Tears Oph) 1 drop TID BOTH EYES Last administered on 10/26/16 13:00; Admin Dose 1 DROP; Start 09/24/16 at 09:00 Sodium Hypochlorite (Dakin'S (1/4 Strength)) 1 applic BID IRR Last administered on 10/27/16 08:57; Admin Dose 1 APPLIC; Start 09/24/16 at 21:00 Collagenase (Santyl) 1 applic DAILY TOP Last administered on 10/27/16 09:40; Admin Dose 1 APPLIC; Start 09/24/16 at 20:30 Miscellaneous Information 1 ea NOTE XX ; Start 09/24/16 at 21:00 Glucose (Glutose) 15 gm Q15M PRN PO DECREASED GLUCOSE; Start 09/24/16 at 21:00 Glucose (Glutose) 22.5 gm Q15M PRN PO DECREASED GLUCOSE; Start 09/24/16 at 21: 00 Dextrose (D50w Syringe) 25 ml Q15M PRN IV DECREASED GLUCOSE; Start 09/24/16 at 21:00 Dextrose (D50w Syringe) 50 ml Q15M PRN IV DECREASED GLUCOSE; Start 09/24/16 at 21:00 Glucagon (Glucagen) 1 mg Q15M PRN IM DECREASED GLUCOSE; Start 09/24/16 at 21:00 Glucose (Glutose) 15 gm Q15M PRN BUCCAL DECREASED GLUCOSE; Start 09/24/16 at 21 :00 Vancomycin HCl (Vancomycin Oral Syringe) 250 mg Q6 PO Last administered on 17:15; Admin Dose 250 MG; Start 09/26/16 at 18:00; Status Future Hold Lactobacillus Acidoph/Bulgaricus (Floranex) 1 tab TID PO Last administered on 13:22; Admin Dose 1 TAB; Start 09/26/16 at 21:00; Status Future Hold Atorvastatin Calcium (Lipitor) 20 mg QHS GTB Last administered on 10/05/16 21: 42; Admin Dose 20 MG; Start 09/28/16 at 21:00; Status Future Hold Finasteride (Proscar) 5 mg DAILY GTB Last administered on 10/06/16 09:12; Admin Dose 5 MG; Start 09/29/16 at 09:00; Status Future Hold Multivitamins Therapeutic (Theragran) 1 tab DAILY GTB Last administered on 09:12; Admin Dose 1 TAB; Start 09/29/16 at 09:00; Status Future Hold Zinc Sulfate (Zinc Sulfate) 220 mg DAILY NGT Last administered on 10/06/16 09: 13; Admin Dose 220 MG; Start 09/29/16 at 09:00; Status Future Hold Ondansetron HCl (Zofran Inj) 4 mg Q6H PRN IV NAUSEA AND/OR VOMITING Last administered on 10/13/16 16:10; Admin Dose 4 MG; Start 09/29/16 at 07:30 Acetaminophen 650 mg 650 mg Q6H PRN GTB PAIN AND OR ELEVATED TEMP Last administered on 10/25/16 20:50; Admin Dose 650 MG; Start 10/02/16 at 08:00 Metronidazole (Flagyl 500 Mg (Pmx)) 100 ml @ 100 mls/hr Q8 IVPB Last administered on 10/27/16 05:41; Admin Dose 100 MLS/HR; Start 10/02/16 at 14:00 Midodrine 10 mg 10 mg TID@,,17 PO Last administered on 10/06/16 17:15; Admin Dose 10 MG; Start 10/06/16 at 01:00; Status Future Hold Linezolid (Zyvox 600mg/D5W (Pmx)) 300 ml @ 300 mls/hr Q12 IVPB Last administered on 10/27/16 08:58; Admin Dose 300 MLS/HR; Start 10/06/16 at 21:00 Levothyroxine Sodium (Synthroid Iv) 12.5 mcg DAILY@06 IV Last administered on 05:40; Admin Dose 12.5 MCG; Start 10/07/16 at 06:00 Metoclopramide HCl 5 mg 5 mg Q8 IV Last administered on 10/27/16 05:41; Admin Dose 5 MG; Start 10/06/16 at 22:00 Colistimethate Sodium/Sodium Chloride (Coly-Mycin/NS) 100 ml @ 200 mls/hr Q12 IVPB Last administered on 10/27/16 09:13; Admin Dose 200 MLS/HR; Start at 13:30 Lansoprazole (Prevacid) 30 mg BID@06,18 GTB Last administered on 10/27/16 05: 41; Admin Dose 30 MG; Start 10/21/16 at 18:00 IV Flush (NS 10 ml) 10 ml PRN PRN IV IV PROTOCOL; Start 10/22/16 at 14:30 Amiodarone HCl 400 mg 400 mg BID NGT Last administered on 10/27/16 08:59; Admin Dose 400 MG; Start 10/25/16 at 12:30 Norepinephrine 16 mg/Sodium Chloride 500 ml @ 1.87 mls/hr TITRATE IV ; Start at 12:30 Sodium Chloride (NS) 1,000 ml @ 70 mls/hr [id number] IV ; Start 10/27/16 at 12:30 ; Stop 10/28/16 at 02:47 Ryder Wild DO Oct 27, 2016 13:17
--- NOTE | 2016-10-27 13:47 | CONS ---
Date/Time of Note Date/Time of Note DATE: 10/27/16 TIME: 13:45 Consult Date/Type/Reason Admit Date/Time Sep 24, 2016 at 03:19 Initial Consult Date 09/24/16 Type of Consultation: Pulm/CCM Ordering Provider: FELIX BLAKE DO Subjective No events; on [facility] hospital vent. Objective Vital Signs Date Time Temp Pulse Resp B/P Pulse Ox O2 Delivery O2 Flow Rate FiO2 10/27/16 12:00 103 10/27/16 11:30 23 90/58 100 10/27/16 11:00 Mechanical Ventilator 10/27/16 08:00 98.3 10/27/16 05:48 30 Intake and Output 10/26/16 10/26/16 10/27/16 15:00 23:00 07:00 Intake Total 1274 ml 746.5 ml 586 ml Output Total 180 ml 230 ml 230 ml Balance 1094 ml 516.5 ml 356 ml Exam HEENT: Pupils equal, round, and reactive to light. Tracheostomy site clean and intact. CARDIAC: S1, S2, irreg irreg CHEST: Diminished air entry bilaterally and rhonchi ABDOMEN: Mildly distended. No bowel sounds. EXTREMITIES: No cyanosis, clubbing edema +1; ++ stage IV sacral decubs Results/Medications Result Diagram: 10/27/16 0400 10/27/16 0400 Results 24 hrs Laboratory Tests Test 10/26/16 17:23 10/27/16 04:00 Bedside Glucose 77 White Blood Count 21.2 H Red Blood Count 3.03 L Hemoglobin 8.2 L Hematocrit 27.2 L Mean Corpuscular Volume 89.8 Mean Corpuscular Hemoglobin 27.1 L Mean Corpuscular Hemoglobin Concent 30.1 L Red Cell Distribution Width 20.0 H Platelet Count 834 #H Mean Platelet Volume 11.1 H Neutrophils % 69.5 Lymphocytes % 12.7 L Monocytes % 12.1 H Eosinophils % 4.2 Basophils % 0.6 Nucleated Red Blood Cells % 0.1 H Neutrophils # 14.8 H Lymphocytes # 2.7 Monocytes # 2.6 H Eosinophils # 0.9 H Basophils # 0.1 Nucleated Red Blood Cells # 0.0 Platelet Estimate PLT APPEAR INCREASED Large Platelets FEW Giant Platelets FEW Sodium Level 126 L Potassium Level 3.8 Chloride Level 100 Carbon Dioxide Level 16 L Anion Gap 14 Blood Urea Nitrogen 30 H Creatinine 1.30 H Glucose Level 376 #H Lactic Acid Level 4.7 *H Calcium Level 6.8 L Total Bilirubin 0.0 L Direct Bilirubin 0.00 Indirect Bilirubin 0.0 Aspartate Amino Transf (AST/SGOT) 37 Alanine Aminotransferase (ALT/SGPT) 20 Alkaline Phosphatase 112 Total Protein 3.9 L Albumin 1.6 L Globulin 2.30 Albumin/Globulin Ratio 0.69 Random Cortisol 14.7 Medications Current Medications Acetaminophen (Tylenol Supp) 650 mg Q4H PRN [place] PAIN LEVEL 1-3 OR FEVER; Start 09/24/16 at 03:00 Eye Lubricant (Artificial Tears Oph) 1 drop TID BOTH EYES Last administered on 10/27/16 13:32; Admin Dose 1 DROP; Start 09/24/16 at 09:00 Sodium Hypochlorite (Dakin'S (1/4 Strength)) 1 applic BID IRR Last administered on 10/27/16 08:57; Admin Dose 1 APPLIC; Start 09/24/16 at 21:00 Collagenase (Santyl) 1 applic DAILY TOP Last administered on 10/27/16 09:40; Admin Dose 1 APPLIC; Start 09/24/16 at 20:30 Miscellaneous Information 1 ea NOTE XX ; Start 09/24/16 at 21:00 Glucose (Glutose) 15 gm Q15M PRN PO DECREASED GLUCOSE; Start 09/24/16 at 21:00 Glucose (Glutose) 22.5 gm Q15M PRN PO DECREASED GLUCOSE; Start 09/24/16 at 21: 00 Dextrose (D50w Syringe) 25 ml Q15M PRN IV DECREASED GLUCOSE; Start 09/24/16 at 21:00 Dextrose (D50w Syringe) 50 ml Q15M PRN IV DECREASED GLUCOSE; Start 09/24/16 at 21:00 Glucagon (Glucagen) 1 mg Q15M PRN IM DECREASED GLUCOSE; Start 09/24/16 at 21:00 Glucose (Glutose) 15 gm Q15M PRN BUCCAL DECREASED GLUCOSE; Start 09/24/16 at 21 :00 Vancomycin HCl (Vancomycin Oral Syringe) 250 mg Q6 PO Last administered on 17:15; Admin Dose 250 MG; Start 09/26/16 at 18:00; Status Future Hold Lactobacillus Acidoph/Bulgaricus (Floranex) 1 tab TID PO Last administered on 13:22; Admin Dose 1 TAB; Start 09/26/16 at 21:00; Status Future Hold Atorvastatin Calcium (Lipitor) 20 mg QHS GTB Last administered on 10/05/16 21: 42; Admin Dose 20 MG; Start 09/28/16 at 21:00; Status Future Hold Finasteride (Proscar) 5 mg DAILY GTB Last administered on 10/06/16 09:12; Admin Dose 5 MG; Start 09/29/16 at 09:00; Status Future Hold Multivitamins Therapeutic (Theragran) 1 tab DAILY GTB Last administered on 09:12; Admin Dose 1 TAB; Start 09/29/16 at 09:00; Status Future Hold Zinc Sulfate (Zinc Sulfate) 220 mg DAILY NGT Last administered on 10/06/16 09: 13; Admin Dose 220 MG; Start 09/29/16 at 09:00; Status Future Hold Ondansetron HCl (Zofran Inj) 4 mg Q6H PRN IV NAUSEA AND/OR VOMITING Last administered on 10/13/16 16:10; Admin Dose 4 MG; Start 09/29/16 at 07:30 Acetaminophen 650 mg 650 mg Q6H PRN GTB PAIN AND OR ELEVATED TEMP Last administered on 10/25/16 20:50; Admin Dose 650 MG; Start 10/02/16 at 08:00 Metronidazole (Flagyl 500 Mg (Pmx)) 100 ml @ 100 mls/hr Q8 IVPB Last administered on 10/27/16 05:41; Admin Dose 100 MLS/HR; Start 10/02/16 at 14:00 Midodrine 10 mg 10 mg TID@,,17 PO Last administered on 10/06/16 17:15; Admin Dose 10 MG; Start 10/06/16 at 01:00; Status Future Hold Linezolid (Zyvox 600mg/D5W (Pmx)) 300 ml @ 300 mls/hr Q12 IVPB Last administered on 10/27/16 08:58; Admin Dose 300 MLS/HR; Start 10/06/16 at 21:00 Levothyroxine Sodium (Synthroid Iv) 12.5 mcg DAILY@06 IV Last administered on 05:40; Admin Dose 12.5 MCG; Start 10/07/16 at 06:00 Metoclopramide HCl 5 mg 5 mg Q8 IV Last administered on 10/27/16 05:41; Admin Dose 5 MG; Start 10/06/16 at 22:00 Colistimethate Sodium/Sodium Chloride (Coly-Mycin/NS) 100 ml @ 200 mls/hr Q12 IVPB Last administered on 10/27/16 09:13; Admin Dose 200 MLS/HR; Start at 13:30 Lansoprazole (Prevacid) 30 mg BID@06,18 GTB Last administered on 10/27/16 05: 41; Admin Dose 30 MG; Start 10/21/16 at 18:00 IV Flush (NS 10 ml) 10 ml PRN PRN IV IV PROTOCOL; Start 10/22/16 at 14:30 Amiodarone HCl 400 mg 400 mg BID NGT Last administered on 10/27/16 08:59; Admin Dose 400 MG; Start 10/25/16 at 12:30 Norepinephrine 16 mg/Sodium Chloride 500 ml @ 1.87 mls/hr TITRATE IV ; Start at 12:30 Sodium Chloride (NS) 1,000 ml @ 70 mls/hr [id number] IV Last administered on 10/27 12:30; Admin Dose 70 MLS/HR; Start 10/27/16 at 12:30; Stop 10/28/16 at 02: 47 Assessment/Plan Additional Assessment/Plan IMP: 1. Septic shock secondary to multiple decubitus ulcers vs.line related 2. AFib with RVR--now resolved 3. Vent dependent respiratory failure 4. Dysphagia with G-tube 5. Persistent leukocytosis 6. History of renal insufficiency RECS: 1. Continue mechanical ventilation 2. Antibiotics per infectious diseases 3. Levophed gtt to MAP > 65 4. Wound care 5. [place] cultures; including from PICC; check CXR 6. Follow H/H; transfuse as needed. 35 min cc time GODFREY GILLILAND MD Oct 27, 2016 13:47
[2016-10-27] MEDS: NORepinephrine 16 MG in SOD CHLORIDE 0.9% 484 ML IV SCH (19:29)
--- NOTE | 2016-10-27 19:53 | CONS ---
Date/Time of Note Date/Time of Note DATE: 10/27/16 TIME: 19:51 Assessment/Plan Assessment/Plan Chief Complaint/Hosp Course ID PROGRESS NOTE TOTAL ABX DAY # => 1. Colistin. 2. Zyvox 3. Flagyl. 4. Status post Voriconazole. 24H INTERVAL SUMMARY => 10/26/16 TNS back to ICU Rapid Response for Afib w/RVR (+ )Low grade temps, WBC rising * Clincally status quo -- chronic sepsis conditions -- Non-communicative on Vent , VSS, NAD, Low grade temps * MICROBIOLOGY: Blood and urine cultures since 10/19/2016 negative. s/p Glabrata UTI 10/07/16 PHYSICAL EXAMINATION: GENERAL: Chronic ill, vented, contracted hands, generalized dependent edema HEENT: Unremarkable NECK: Trach -> Secure to Vent CHEST: Equal chest rise bilaterally, without dyspnea on observation HEART: Pulse RRR ABDOMEN: Soft/peg EXTREMITIES: Warm SKIN: See hard chart skin assessment= multiple decubs ID ASSESSMENT: 81 yo M w/PMHx CVA w/Dementia, contracted extremities, VDRF, Peg admit with: 1. Admited w/Severe sepsis with shock=> RESOLVED was up on TELE, now back to ICU for Afib W/RVR * s/p Status post Bacteroides fragilis and Escherichia coli bacteremia on admission/Escherichia coli urinary tract infection 2. Afib w/RVR s/p Rapid Response TNS back to ICU 10/26/16 am 3. Healthcare-associated pneumonia. 4. Anemia w/concern for Probable GI bleed (Coffee ground drainage from G tube) 5. Multiple infected decubitus on admission w/necrosis and deep tissue injury= > Polymicrobial MDRO * Multiple wounds with left trochanteric osteomyelitis. 6. Persistent diarrhea, stool for Clostridium difficile negative. 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 7. Coronary artery disease and history of non-ST elevation [place] 8. Renal insufficiency -> s/p ANGELICA resolved (+)MRSA Nares =>s/p Bactroban INVASIVES: Trach, Peg, Cee, Rectal Tube, PICC 10/22/2016. ABX ALLERGY: KNDA CURRENT ABX: => 1. Colistin. 2. Zyvox 3. Flagyl. 4. Status post Voriconazole. ID RECOMMENDATIONS: 1. Continue current ABX =>Repeat UA C&S . . . . . Problems: Consultation Date/Type/Reason Admit Date/Time Sep 24, 2016 at 03:19 Initial Consult Date 09/24/16 Type of Consultation: ID Referring Provider: FELIX BLAKE DO Exam/Review of Systems Vital Signs Vitals Vital Signs Date Time Temp Pulse Resp B/P Pulse Ox O2 Delivery O2 Flow Rate FiO2 10/27/16 18:45 105 26 105/72 100 10/27/16 18:00 Mechanical Ventilator 10/27/16 16:55 30 10/27/16 16:00 99.4 Intake and Output 10/26/16 10/26/16 10/27/16 14:59 22:59 06:59 Intake Total 1141 ml 846.5 ml 624 ml Output Total 180 ml 230 ml 230 ml Balance 961 ml 616.5 ml 394 ml Results Result Diagram: 10/27/16 0400 10/27/16 0400 Results 24 hrs Laboratory Tests Test 10/27/16 04:00 White Blood Count 21.2 H Red Blood Count 3.03 L Hemoglobin 8.2 L Hematocrit 27.2 L Mean Corpuscular Volume 89.8 Mean Corpuscular Hemoglobin 27.1 L Mean Corpuscular Hemoglobin Concent 30.1 L Red Cell Distribution Width 20.0 H Platelet Count 834 #H Mean Platelet Volume 11.1 H Neutrophils % 69.5 Lymphocytes % 12.7 L Monocytes % 12.1 H Eosinophils % 4.2 Basophils % 0.6 Nucleated Red Blood Cells % 0.1 H Neutrophils # 14.8 H Lymphocytes # 2.7 Monocytes # 2.6 H Eosinophils # 0.9 H Basophils # 0.1 Nucleated Red Blood Cells # 0.0 Platelet Estimate PLT APPEAR INCREASED Large Platelets FEW Giant Platelets FEW Sodium Level 126 L Potassium Level 3.8 Chloride Level 100 Carbon Dioxide Level 16 L Anion Gap 14 Blood Urea Nitrogen 30 H Creatinine 1.30 H Glucose Level 376 #H Lactic Acid Level 4.7 *H Calcium Level 6.8 L Total Bilirubin 0.0 L Direct Bilirubin 0.00 Indirect Bilirubin 0.0 Aspartate Amino Transf (AST/SGOT) 37 Alanine Aminotransferase (ALT/SGPT) 20 Alkaline Phosphatase 112 Total Protein 3.9 L Albumin 1.6 L Globulin 2.30 Albumin/Globulin Ratio 0.69 Random Cortisol 14.7 Medications Medications Current Medications Acetaminophen (Tylenol Supp) 650 mg Q4H PRN IN PAIN LEVEL 1-3 OR FEVER; Start 09/24/16 at 03:00 Eye Lubricant (Artificial Tears Oph) 1 drop TID BOTH EYES Last administered on 10/27/16 13:32; Admin Dose 1 DROP; Start 09/24/16 at 09:00 Sodium Hypochlorite (Dakin'S (1/4 Strength)) 1 applic BID IRR Last administered on 10/27/16 08:57; Admin Dose 1 APPLIC; Start 09/24/16 at 21:00 Collagenase (Santyl) 1 applic DAILY TOP Last administered on 10/27/16 09:40; Admin Dose 1 APPLIC; Start 09/24/16 at 20:30 Miscellaneous Information 1 ea NOTE XX ; Start 09/24/16 at 21:00 Glucose (Glutose) 15 gm Q15M PRN PO DECREASED GLUCOSE; Start 09/24/16 at 21:00 Glucose (Glutose) 22.5 gm Q15M PRN PO DECREASED GLUCOSE; Start 09/24/16 at 21: 00 Dextrose (D50w Syringe) 25 ml Q15M PRN IV DECREASED GLUCOSE; Start 09/24/16 at 21:00 Dextrose (D50w Syringe) 50 ml Q15M PRN IV DECREASED GLUCOSE; Start 09/24/16 at 21:00 Glucagon (Glucagen) 1 mg Q15M PRN IM DECREASED GLUCOSE; Start 09/24/16 at 21:00 Glucose (Glutose) 15 gm Q15M PRN BUCCAL DECREASED GLUCOSE; Start 09/24/16 at 21 :00 Vancomycin HCl (Vancomycin Oral Syringe) 250 mg Q6 PO Last administered on 17:15; Admin Dose 250 MG; Start 09/26/16 at 18:00; Status Future Hold Lactobacillus Acidoph/Bulgaricus (Floranex) 1 tab TID PO Last administered on 13:22; Admin Dose 1 TAB; Start 09/26/16 at 21:00; Status Future Hold Atorvastatin Calcium (Lipitor) 20 mg QHS GTB Last administered on 10/05/16 21: 42; Admin Dose 20 MG; Start 09/28/16 at 21:00; Status Future Hold Finasteride (Proscar) 5 mg DAILY GTB Last administered on 10/06/16 09:12; Admin Dose 5 MG; Start 09/29/16 at 09:00; Status Future Hold Multivitamins Therapeutic (Theragran) 1 tab DAILY GTB Last administered on 09:12; Admin Dose 1 TAB; Start 09/29/16 at 09:00; Status Future Hold Zinc Sulfate (Zinc Sulfate) 220 mg DAILY NGT Last administered on 10/06/16 09: 13; Admin Dose 220 MG; Start 09/29/16 at 09:00; Status Future Hold Ondansetron HCl (Zofran Inj) 4 mg Q6H PRN IV NAUSEA AND/OR VOMITING Last administered on 10/13/16 16:10; Admin Dose 4 MG; Start 09/29/16 at 07:30 Acetaminophen 650 mg 650 mg Q6H PRN GTB PAIN AND OR ELEVATED TEMP Last administered on 10/25/16 20:50; Admin Dose 650 MG; Start 10/02/16 at 08:00 Metronidazole (Flagyl 500 Mg (Pmx)) 100 ml @ 100 mls/hr Q8 IVPB Last administered on 10/27/16 14:21; Admin Dose 100 MLS/HR; Start 10/02/16 at 14:00 Midodrine 10 mg 10 mg TID@, PO Last administered on 10/06/16 17:15; Admin Dose 10 MG; Start 10/06/16 at 01:00; Status Future Hold Linezolid (Zyvox 600mg/D5W (Pmx)) 300 ml @ 300 mls/hr Q12 IVPB Last administered on 10/27/16 08:58; Admin Dose 300 MLS/HR; Start 10/06/16 at 21:00 Levothyroxine Sodium (Synthroid Iv) 12.5 mcg DAILY@06 IV Last administered on 05:40; Admin Dose 12.5 MCG; Start 10/07/16 at 06:00 Metoclopramide HCl 5 mg 5 mg Q8 IV Last administered on 10/27/16 14:18; Admin Dose 5 MG; Start 10/06/16 at 22:00 Colistimethate Sodium/Sodium Chloride (Coly-Mycin/NS) 100 ml @ 200 mls/hr Q12 IVPB Last administered on 10/27/16 09:13; Admin Dose 200 MLS/HR; Start at 13:30 Lansoprazole (Prevacid) 30 mg BID@06,18 GTB Last administered on 10/27/16 18: 05; Admin Dose 30 MG; Start 10/21/16 at 18:00 IV Flush (NS 10 ml) 10 ml PRN PRN IV IV PROTOCOL; Start 10/22/16 at 14:30 Amiodarone HCl 400 mg 400 mg BID NGT Last administered on 10/27/16 08:59; Admin Dose 400 MG; Start 10/25/16 at 12:30 Norepinephrine 16 mg/Sodium Chloride 500 ml @ 1.87 mls/hr TITRATE IV Last administered on 10/27/16 19:29; Admin Dose 42.25 MLS/HR; Start 10/27/16 at 12: 30 Sodium Chloride (NS) 1,000 ml @ 70 mls/hr [id number] IV Last administered on 10/27 12:30; Admin Dose 70 MLS/HR; Start 10/27/16 at 12:30; Stop 10/28/16 at 02: 47 KUSHAL OHUSE STRUCTURER Oct 27, 2016 19:53
[2016-10-28] VITALS (95 sets, daily range): BP systolic 78–101; BP diastolic 53–78; PULSE 100–121; RESP 14–35
[2016-10-28] MEDS: IPRATROPIUM (HFA) 12.9 GM INHALER INH SCH ×4 (01:17→19:45)
[2016-10-28] MEDS: ALBUTEROL 18 GM INHALER INH SCH ×4 (01:17→19:45)
[2016-10-28 04:47] LABS: ADD SCAN DIFF NO
[2016-10-28 04:51] LABS: ABNORMAL IP MESSAGE 1; BASOPHIL # 0.1 10^3/ul (0.0-0.1); BASOPHILS % 0.4 % (0.0-2.0); HEMOGLOBIN 8.1 g/dl (14.0-18.0); LYMPHOCYTES # 2.9 10^3/ul (0.8-2.9); MEAN CORPUSCULAR HEMOGLOBIN 26.9 pg (29.0-33.0); MEAN CORPUSCULAR VOLUME 89.7 fl (82.0-101.0); MEAN PLATELET VOLUME 10.9 fl (7.4-10.4); MONOCYTE # 2.4 10^3/ul (0.3-0.9); MONOCYTES % 11.5 % (0.0-11.0); NEUTROPHILS % 68.3 % (39.0-77.0); PLATELET COUNT 530 10^3/UL (140-415); RED BLOOD COUNT 3.01 10^6/ul (4.70-6.10); RED CELL DISTRIBUTION WIDTH 20.2 % (11.5-14.5); WHITE BLOOD COUNT 20.5 10^3/ul (4.8-10.8)
[2016-10-28 05:07] LABS: CALCIUM 6.7 mg/dl (8.4-10.2); CREATININE 1.27 mg/dl (0.61-1.24); POTASSIUM 3.7 mmol/L (3.5-5.1)
[2016-10-28] MEDS: LANSOPRAZOLE 30 MG CAP GTB SCH ×2 (05:54→17:56)
[2016-10-28] MEDS: LEVOTHYROXINE 100 MCG VIAL IV SCH (05:54)
[2016-10-28] MEDS: metroNIDAZOLE 500 MG/NS (PMX) 100 ML IVPB SCH ×3 (05:55→22:52)
[2016-10-28] MEDS: METOCLOPRAMIDE 10 MG INJ IV SCH ×3 (05:55→22:52)
[2016-10-28] MEDS: NORepinephrine 16 MG in SOD CHLORIDE 0.9% 484 ML IV SCH ×2 (06:26→17:57)
[2016-10-28] MEDS: COLISTIMETHATE 75 MG in SOD CHLORIDE 0.9% 100 ML IVPB SCH ×2 (08:52→21:50)
[2016-10-28] MEDS: LINEZOLID 600 MG/D5W (PMX) 300 ML IVPB SCH ×2 (08:52→21:50)
[2016-10-28] MEDS: COLLAGENASE 30 GM TUBE TOP SCH (08:53)
[2016-10-28] MEDS: SODIUM HYPOCHLORITE 0.125% 473 ML BTL IRR SCH ×2 (08:53→21:48)
[2016-10-28] MEDS: ARTIFICIAL TEARS 15 ML OPH BOTH EYES SCH ×3 (09:00→21:00)
[2016-10-28] MEDS: AMIODARONE 200 MG TAB NGT SCH ×2 (09:18→21:48)
--- NOTE | 2016-10-28 09:34 | CONS ---
Date/Time of Note Date/Time of Note DATE: 10/28/16 TIME: 09:31 Assessment/Plan Assessment/Plan Additional Assessment/Plan Ventilator settings; AC of 16, tidal volume 500, PEEP of 5, 30% FiO2. Assessment recommendations; 1. Patient admitted for severe sepsis due to multiple decubitus ulcers. 2. Left lower lobe pneumonia. 3. Anemia. 4. Chronic respiratory failure, ventilator dependent. 5. BPH. 6. Hypothyroidism. 7. Multi-infarct dementia. Continue current supportive care. Prognosis is extremely poor. Consultation Date/Type/Reason Admit Date/Time Sep 24, 2016 at 03:19 Initial Consult Date 09/24/16 Type of Consultation: Pulmonary/critical care Referring Provider: FELIX BLAKE DO 24 HR Interval Summary Free Text/Dictation Patient condition remains critical. Still requiring pressor support with Levophed at 20 mics per minute. Because of multi-infarct dementia patient remains essentially unresponsive. General exam; elderly male, on ventilator via tracheostomy currently in no distress, awake but does not respond to any commands. Exam/Review of Systems Vital Signs Vitals Vital Signs Date Time Temp Pulse Resp B/P Pulse Ox O2 Delivery O2 Flow Rate FiO2 10/28/16 08:00 105 10/28/16 05:30 22 95/69 99 10/28/16 05:01 30 10/28/16 04:00 98.9 10/28/16 00:30 Mechanical Ventilator Intake and Output 10/27/16 10/27/16 10/28/16 15:00 23:00 07:00 Intake Total 1223 ml 567 ml 394 ml Output Total 330 ml 250 ml 230 ml Balance 893 ml 317 ml 164 ml Exam HEENT examination; supple neck, no JVD. No lymphadenopathy. Midline trachea. Tracheostomy placed with clean insertion site. No neck masses. No thyromegaly. Chest examination; diminished breath sound left lower lobe. Rest of the lung arias are clear. S1-S2 audible, no murmurs. Regular rhythm. Abdomen exam is; soft, G-tube in place. No organomegaly. Bowel sounds audible. Back examination revealed multiple decubitus ulcers involving the sacral area. Extremity exam is; no peripheral edema. Patient does have contractures involving all 4 extremities. TOOL PLANER SET UP OPERATOR examination; patient remains awake but does not respond to any commands. Results Result Diagram: 10/28/16 0415 10/28/16 0415 Results 24 hrs Laboratory Tests Test 10/28/16 04:15 White Blood Count 20.5 H Red Blood Count 3.01 L Hemoglobin 8.1 L Hematocrit 27.0 L Mean Corpuscular Volume 89.7 Mean Corpuscular Hemoglobin 26.9 L Mean Corpuscular Hemoglobin Concent 30.0 L Red Cell Distribution Width 20.2 H Platelet Count 530 #H Mean Platelet Volume 10.9 H Neutrophils % 68.3 Lymphocytes % 14.0 L Monocytes % 11.5 H Eosinophils % 5.0 Basophils % 0.4 Nucleated Red Blood Cells % 0.0 Neutrophils # 14.0 H Lymphocytes # 2.9 Monocytes # 2.4 H Eosinophils # 1.0 H Basophils # 0.1 Nucleated Red Blood Cells # 0.0 Sodium Level 131 L Potassium Level 3.7 Chloride Level 110 # Carbon Dioxide Level 17 L Anion Gap 8 Blood Urea Nitrogen 28 H Creatinine 1.27 H Glucose Level 102 # Calcium Level 6.7 L Medications Medications Current Medications Acetaminophen (Tylenol Supp) 650 mg Q4H PRN [place] PAIN LEVEL 1-3 OR FEVER; Start 09/24/16 at 03:00 Eye Lubricant (Artificial Tears Oph) 1 drop TID BOTH EYES Last administered on 10/27/16 13:32; Admin Dose 1 DROP; Start 09/24/16 at 09:00 Sodium Hypochlorite (Dakin'S (1/4 Strength)) 1 applic BID IRR Last administered on 10/28/16 08:53; Admin Dose 1 APPLIC; Start 09/24/16 at 21:00 Collagenase (Santyl) 1 applic DAILY TOP Last administered on 10/28/16 08:53; Admin Dose 1 APPLIC; Start 09/24/16 at 20:30 Miscellaneous Information 1 ea NOTE XX ; Start 09/24/16 at 21:00 Glucose (Glutose) 15 gm Q15M PRN PO DECREASED GLUCOSE; Start 09/24/16 at 21:00 Glucose (Glutose) 22.5 gm Q15M PRN PO DECREASED GLUCOSE; Start 09/24/16 at 21: 00 Dextrose (D50w Syringe) 25 ml Q15M PRN IV DECREASED GLUCOSE; Start 09/24/16 at 21:00 Dextrose (D50w Syringe) 50 ml Q15M PRN IV DECREASED GLUCOSE; Start 09/24/16 at 21:00 Glucagon (Glucagen) 1 mg Q15M PRN IM DECREASED GLUCOSE; Start 09/24/16 at 21:00 Glucose (Glutose) 15 gm Q15M PRN BUCCAL DECREASED GLUCOSE; Start 09/24/16 at 21 :00 Vancomycin HCl (Vancomycin Oral Syringe) 250 mg Q6 PO Last administered on 17:15; Admin Dose 250 MG; Start 09/26/16 at 18:00; Status Future Hold Lactobacillus Acidoph/Bulgaricus (Floranex) 1 tab TID PO Last administered on 13:22; Admin Dose 1 TAB; Start 09/26/16 at 21:00; Status Future Hold Atorvastatin Calcium (Lipitor) 20 mg QHS GTB Last administered on 10/05/16 21: 42; Admin Dose 20 MG; Start 09/28/16 at 21:00; Status Future Hold Finasteride (Proscar) 5 mg DAILY GTB Last administered on 10/06/16 09:12; Admin Dose 5 MG; Start 09/29/16 at 09:00; Status Future Hold Multivitamins Therapeutic (Theragran) 1 tab DAILY GTB Last administered on 09:12; Admin Dose 1 TAB; Start 09/29/16 at 09:00; Status Future Hold Zinc Sulfate (Zinc Sulfate) 220 mg DAILY NGT Last administered on 10/06/16 09: 13; Admin Dose 220 MG; Start 09/29/16 at 09:00; Status Future Hold Ondansetron HCl (Zofran Inj) 4 mg Q6H PRN IV NAUSEA AND/OR VOMITING Last administered on 10/13/16 16:10; Admin Dose 4 MG; Start 09/29/16 at 07:30 Acetaminophen 650 mg 650 mg Q6H PRN GTB PAIN AND OR ELEVATED TEMP Last administered on 10/25/16 20:50; Admin Dose 650 MG; Start 10/02/16 at 08:00 Metronidazole (Flagyl 500 Mg (Pmx)) 100 ml @ 100 mls/hr Q8 IVPB Last administered on 10/28/16 05:55; Admin Dose 100 MLS/HR; Start 10/02/16 at 14:00 Midodrine 10 mg 10 mg TID@,,17 PO Last administered on 10/06/16 17:15; Admin Dose 10 MG; Start 10/06/16 at 01:00; Status Future Hold Linezolid (Zyvox 600mg/D5W (Pmx)) 300 ml @ 300 mls/hr Q12 IVPB Last administered on 10/28/16 08:52; Admin Dose 300 MLS/HR; Start 10/06/16 at 21:00 Levothyroxine Sodium (Synthroid Iv) 12.5 mcg DAILY@06 IV Last administered on 05:54; Admin Dose 12.5 MCG; Start 10/07/16 at 06:00 Metoclopramide HCl 5 mg 5 mg Q8 IV Last administered on 10/28/16 05:55; Admin Dose 5 MG; Start 10/06/16 at 22:00 Colistimethate Sodium/Sodium Chloride (Coly-Mycin/NS) 100 ml @ 200 mls/hr Q12 IVPB Last administered on 10/28/16 08:52; Admin Dose 200 MLS/HR; Start at 13:30 Lansoprazole (Prevacid) 30 mg BID@06,18 GTB Last administered on 10/28/16 05: 54; Admin Dose 30 MG; Start 10/21/16 at 18:00 IV Flush (NS 10 ml) 10 ml PRN PRN IV IV PROTOCOL; Start 10/22/16 at 14:30 Amiodarone HCl 400 mg 400 mg BID NGT Last administered on 10/28/16 09:18; Admin Dose 400 MG; Start 10/25/16 at 12:30 Norepinephrine/ Sodium Chloride (Levophed/NS) 500 ml @ 1.87 mls/hr TITRATE IV Last administered on 10/28/16 06:26; Admin Dose 41.25 MLS/HR; Start 10/27/16 at 12:30 MAIN SALTER Oct 28, 2016 09:34
--- NOTE | 2016-10-28 12:29 | CONS ---
Date/Time of Note Date/Time of Note DATE: 10/28/16 TIME: 12:23 Assessment/Plan Assessment/Plan Chief Complaint/Hosp Course ID PROGRESS NOTE TOTAL ABX DAY # => Colistin. Zyvox Flagyl. Status post Voriconazole. RECENT EVENTS: 10/26/16 TNS back to ICU Rapid Response for Afib w/RVR (+)Low grade temps, WBC rising * CXR 10/26/16 with increased left pleural effusion and basilar atelectasis versus infiltrate. Unchanged small right pleural effusion with basilar atelectasis 24H INTERVAL SUMMARY => * Awake on the Vent w/hx of multi-infarct vascular dementia, non-verbal, * 81 yo M chronic debility/chronic recurrent septic issues due to invasives. VSS, NAD, Low grade temps * MICROBIOLOGY: Blood and urine cultures since 10/19/2016 negative. s/p Glabrata UTI 10/07/16 PHYSICAL EXAMINATION: GENERAL: Chronic ill, vented, contracted hands, generalized dependent edema HEENT: Unremarkable NECK: Trach -> Secure to Vent CHEST: Equal chest rise bilaterally, without dyspnea on observation HEART: Pulse RRR ABDOMEN: Soft/peg EXTREMITIES: Warm SKIN: See hard chart skin assessment= multiple decubs ID ASSESSMENT: 81 yo M w/PMHx CVA w/Dementia, contracted extremities, VDRF, Peg admit with: 1. Admited w/Severe sepsis with shock=> RESOLVED was up on TELE, now back to ICU for Afib W/RVR * s/p Status post Bacteroides fragilis and Escherichia coli bacteremia on admission/Escherichia coli urinary tract infection 2. Afib w/RVR s/p Rapid Response TNS back to ICU 10/26/16 am 3. Healthcare-associated pneumonia. 4. Anemia w/concern for Probable GI bleed (Coffee ground drainage from G tube) 5. Multiple infected decubitus on admission w/necrosis and deep tissue injury= > Polymicrobial MDRO * Multiple wounds with left trochanteric osteomyelitis. 6. Persistent diarrhea, stool for Clostridium difficile negative. 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 7. Coronary artery disease and history of non-ST elevation [place] 8. Renal insufficiency -> s/p ANGELICA resolved (+)MRSA Nares =>s/p Bactroban INVASIVES: Trach, Peg, Cee, Rectal Tube, PICC 10/22/2016. ABX ALLERGY: KNDA CURRENT ABX: => Colistin. Zyvox Flagyl. Status post Voriconazole. ID RECOMMENDATIONS: 1. Continue current ABX => due to increase infiltrate on CXR 10/26/16 with recurrent sepsis 2. Repeat sputum cx . . . . . . . Problems: Consultation Date/Type/Reason Admit Date/Time Sep 24, 2016 at 03:19 Initial Consult Date 09/24/16 Type of Consultation: ID Referring Provider: FELIX BLAKE DO Exam/Review of Systems Vital Signs Vitals Vital Signs Date Time Temp Pulse Resp B/P Pulse Ox O2 Delivery O2 Flow Rate FiO2 10/28/16 09:30 100 23 83/65 100 10/28/16 09:00 Mechanical Ventilator 10/28/16 08:30 30 10/28/16 08:00 99.0 Intake and Output 10/27/16 10/27/16 10/28/16 15:00 23:00 07:00 Intake Total 1223 ml 567 ml 394 ml Output Total 330 ml 250 ml 230 ml Balance 893 ml 317 ml 164 ml Results Result Diagram: 10/28/16 0415 10/28/16 0415 Results 24 hrs Laboratory Tests Test 10/28/16 04:15 White Blood Count 20.5 H Red Blood Count 3.01 L Hemoglobin 8.1 L Hematocrit 27.0 L Mean Corpuscular Volume 89.7 Mean Corpuscular Hemoglobin 26.9 L Mean Corpuscular Hemoglobin Concent 30.0 L Red Cell Distribution Width 20.2 H Platelet Count 530 #H Mean Platelet Volume 10.9 H Neutrophils % 68.3 Lymphocytes % 14.0 L Monocytes % 11.5 H Eosinophils % 5.0 Basophils % 0.4 Nucleated Red Blood Cells % 0.0 Neutrophils # 14.0 H Lymphocytes # 2.9 Monocytes # 2.4 H Eosinophils # 1.0 H Basophils # 0.1 Nucleated Red Blood Cells # 0.0 Sodium Level 131 L Potassium Level 3.7 Chloride Level 110 # Carbon Dioxide Level 17 L Anion Gap 8 Blood Urea Nitrogen 28 H Creatinine 1.27 H Glucose Level 102 # Calcium Level 6.7 L Medications Medications Current Medications Acetaminophen (Tylenol Supp) 650 mg Q4H PRN [place] PAIN LEVEL 1-3 OR FEVER; Start 09/24/16 at 03:00 Eye Lubricant (Artificial Tears Oph) 1 drop TID BOTH EYES Last administered on 10/27/16 13:32; Admin Dose 1 DROP; Start 09/24/16 at 09:00 Sodium Hypochlorite (Dakin'S (1/4 Strength)) 1 applic BID IRR Last administered on 10/28/16 08:53; Admin Dose 1 APPLIC; Start 09/24/16 at 21:00 Collagenase (Santyl) 1 applic DAILY TOP Last administered on 10/28/16 08:53; Admin Dose 1 APPLIC; Start 09/24/16 at 20:30 Miscellaneous Information 1 ea NOTE XX ; Start 09/24/16 at 21:00 Glucose (Glutose) 15 gm Q15M PRN PO DECREASED GLUCOSE; Start 09/24/16 at 21:00 Glucose (Glutose) 22.5 gm Q15M PRN PO DECREASED GLUCOSE; Start 09/24/16 at 21: 00 Dextrose (D50w Syringe) 25 ml Q15M PRN IV DECREASED GLUCOSE; Start 09/24/16 at 21:00 Dextrose (D50w Syringe) 50 ml Q15M PRN IV DECREASED GLUCOSE; Start 09/24/16 at 21:00 Glucagon (Glucagen) 1 mg Q15M PRN IM DECREASED GLUCOSE; Start 09/24/16 at 21:00 Glucose (Glutose) 15 gm Q15M PRN BUCCAL DECREASED GLUCOSE; Start 09/24/16 at 21 :00 Vancomycin HCl (Vancomycin Oral Syringe) 250 mg Q6 PO Last administered on 17:15; Admin Dose 250 MG; Start 09/26/16 at 18:00; Status Future Hold Lactobacillus Acidoph/Bulgaricus (Floranex) 1 tab TID PO Last administered on 13:22; Admin Dose 1 TAB; Start 09/26/16 at 21:00; Status Future Hold Atorvastatin Calcium (Lipitor) 20 mg QHS GTB Last administered on 10/05/16 21: 42; Admin Dose 20 MG; Start 09/28/16 at 21:00; Status Future Hold Finasteride (Proscar) 5 mg DAILY GTB Last administered on 10/06/16 09:12; Admin Dose 5 MG; Start 09/29/16 at 09:00; Status Future Hold Multivitamins Therapeutic (Theragran) 1 tab DAILY GTB Last administered on 09:12; Admin Dose 1 TAB; Start 09/29/16 at 09:00; Status Future Hold Zinc Sulfate (Zinc Sulfate) 220 mg DAILY NGT Last administered on 10/06/16 09: 13; Admin Dose 220 MG; Start 09/29/16 at 09:00; Status Future Hold Ondansetron HCl (Zofran Inj) 4 mg Q6H PRN IV NAUSEA AND/OR VOMITING Last administered on 10/13/16 16:10; Admin Dose 4 MG; Start 09/29/16 at 07:30 Acetaminophen 650 mg 650 mg Q6H PRN GTB PAIN AND OR ELEVATED TEMP Last administered on 10/25/16 20:50; Admin Dose 650 MG; Start 10/02/16 at 08:00 Metronidazole (Flagyl 500 Mg (Pmx)) 100 ml @ 100 mls/hr Q8 IVPB Last administered on 10/28/16 05:55; Admin Dose 100 MLS/HR; Start 10/02/16 at 14:00 Midodrine 10 mg 10 mg TID@, PO Last administered on 10/06/16 17:15; Admin Dose 10 MG; Start 10/06/16 at 01:00; Status Future Hold Linezolid (Zyvox 600mg/D5W (Pmx)) 300 ml @ 300 mls/hr Q12 IVPB Last administered on 10/28/16 08:52; Admin Dose 300 MLS/HR; Start 10/06/16 at 21:00 Levothyroxine Sodium (Synthroid Iv) 12.5 mcg DAILY@06 IV Last administered on 05:54; Admin Dose 12.5 MCG; Start 10/07/16 at 06:00 Metoclopramide HCl 5 mg 5 mg Q8 IV Last administered on 10/28/16 05:55; Admin Dose 5 MG; Start 10/06/16 at 22:00 Colistimethate Sodium/Sodium Chloride (Coly-Mycin/NS) 100 ml @ 200 mls/hr Q12 IVPB Last administered on 10/28/16 08:52; Admin Dose 200 MLS/HR; Start at 13:30 Lansoprazole (Prevacid) 30 mg BID@06,18 GTB Last administered on 10/28/16 05: 54; Admin Dose 30 MG; Start 10/21/16 at 18:00 IV Flush (NS 10 ml) 10 ml PRN PRN IV IV PROTOCOL; Start 10/22/16 at 14:30 Amiodarone HCl 400 mg 400 mg BID NGT Last administered on 10/28/16 09:18; Admin Dose 400 MG; Start 10/25/16 at 12:30 Norepinephrine/ Sodium Chloride (Levophed/NS) 500 ml @ 1.87 mls/hr TITRATE IV Last administered on 10/28/16 06:26; Admin Dose 41.25 MLS/HR; Start 10/27/16 at 12:30 [employer] Oct 28, 2016 12:29
--- NOTE | 2016-10-28 12:41 | PN ---
Date/Time of Note Date/Time of Note DATE: 10/26/16 TIME: 12:39 Assessment/Plan Lines/Catheters IV Catheter Type (from [facility]): PICC Line Cee in Place (from [facility]): Yes Assessment/Plan Chief Complaint/Hosp Course 1. Shock, septic (uti, pna, wound). -Judicious fluid management -Supportive measures -Antibiotics 2. Multiple decubitus ulcerations with necrotic tissue and deep tissue injury -Offload -Local care -Vitamin C -Eventual nutritional optimization -Debridement when medically cleared 3. Contracted state with functional quadriplegia -Offloading -Nutritional optimization when possible 4. Anemia -Monitor 5. Ventilator dependent respiratory failure -Ventilator management and pulmonary toilet 6. Renal insufficiency -Judicious fluid management -Avoid nephrotoxic agents 7. Coronary artery disease and history of non-ST elevation [place] -Cardiac optimization 8. Thrombocytopenia -medical optimization Thank you Late entry 10/26 Problems: Subjective 24 Hr Interval Summary Back in ICU on pressors. Tachycardia. Fever. Leukocytosis. No chills. No cough. No seizure. No rash. No blood rectum. No bloating. No seizures. No pyuria. Exam/Review of Systems Vital Signs Vitals Vital Signs Date Time Temp Pulse Resp B/P Pulse Ox O2 Delivery O2 Flow Rate FiO2 10/28/16 12:00 106 10/28/16 09:30 23 83/65 100 10/28/16 09:00 Mechanical Ventilator 10/28/16 08:30 30 10/28/16 08:00 99.0 Intake and Output 10/27/16 10/27/16 10/28/16 15:00 23:00 07:00 Intake Total 1223 ml 567 ml 394 ml Output Total 330 ml 250 ml 230 ml Balance 893 ml 317 ml 164 ml Exam Free Text/Dictation Constitutional: No alert, No oriented Psych: No nl mood/affect Head: atraumatic, normocephalic Eyes: nl conjunctiva, No EOMI, No icteric ENMT: mucosa pink and moist, nl external ears & nose Neck: jvd, other (Trach in place), No non-tender, No supple Respiratory: No congested cough, No labored breathing Cardiovascular: No regular rate and rhythm Gastrointestinal: non-tender, other (PEG in place), soft, No rebound or guarding Musculoskeletal: No joint tenderness, No nl extremities to inspection, No nl gait and stance Extremities: No calf tenderness, No cyanosis Neurological: No nl mental status, No nl speech, No nl strength Skin: rash or lesions (Multiple decubitus ulcerations with debris, necrotic tissue, deep tissue injury), No diaphoresis, No nl turgor Lymph: nontender Results Result Diagram: 10/28/16 0415 10/28/16 0415 EVA GUARDADO MD Oct 28, 2016 12:41
--- NOTE | 2016-10-28 12:42 | PN ---
Date/Time of Note Date/Time of Note DATE: 10/27/16 TIME: 12:41 Assessment/Plan Lines/Catheters IV Catheter Type (from [facility]): PICC Line Cee in Place (from [facility]): Yes Assessment/Plan Chief Complaint/Hosp Course 1. Shock, septic (uti, pna, wound). -Judicious fluid management -Supportive measures -Antibiotics 2. Multiple decubitus ulcerations with necrotic tissue and deep tissue injury -Offload -Local care -Vitamin C -Eventual nutritional optimization -Debridement when medically cleared 3. Contracted state with functional quadriplegia -Offloading -Nutritional optimization when possible 4. Anemia -Monitor 5. Ventilator dependent respiratory failure -Ventilator management and pulmonary toilet 6. Renal insufficiency -Judicious fluid management -Avoid nephrotoxic agents 7. Coronary artery disease and history of non-ST elevation [place] -Cardiac optimization 8. Thrombocytopenia -medical optimization Thank you Late entry 10/27 Problems: Subjective 24 Hr Interval Summary On pressors. Tachycardia. Fever. Leukocytosis. No chills. No cough. No seizure. No rash. No blood rectum. No bloating. No seizures. No pyuria. Exam/Review of Systems Vital Signs Vitals Vital Signs Date Time Temp Pulse Resp B/P Pulse Ox O2 Delivery O2 Flow Rate FiO2 10/28/16 12:00 106 10/28/16 09:30 23 83/65 100 10/28/16 09:00 Mechanical Ventilator 10/28/16 08:30 30 10/28/16 08:00 99.0 Intake and Output 10/27/16 10/27/16 10/28/16 15:00 23:00 07:00 Intake Total 1223 ml 567 ml 394 ml Output Total 330 ml 250 ml 230 ml Balance 893 ml 317 ml 164 ml Exam Free Text/Dictation Constitutional: No alert, No oriented Psych: No nl mood/affect Head: atraumatic, normocephalic Eyes: nl conjunctiva, No EOMI, No icteric ENMT: mucosa pink and moist, nl external ears & nose Neck: jvd, other (Trach in place), No non-tender, No supple Respiratory: No congested cough, No labored breathing Cardiovascular: No regular rate and rhythm Gastrointestinal: non-tender, other (PEG in place), soft, No rebound or guarding Musculoskeletal: No joint tenderness, No nl extremities to inspection, No nl gait and stance Extremities: No calf tenderness, No cyanosis Neurological: No nl mental status, No nl speech, No nl strength Skin: rash or lesions (Multiple decubitus ulcerations with debris, necrotic tissue, deep tissue injury), No diaphoresis, No nl turgor Lymph: nontender Results Result Diagram: 10/28/16 0415 10/28/16 0415 EVA GUARDADO MD Oct 28, 2016 12:42
--- NOTE | 2016-10-28 12:43 | PN ---
Date/Time of Note Date/Time of Note DATE: 10/28/16 TIME: 12:42 Assessment/Plan Lines/Catheters IV Catheter Type (from [facility]): PICC Line Cee in Place (from [facility]): Yes Assessment/Plan Chief Complaint/Hosp Course 1. Shock, septic (uti, pna, wound). -Judicious fluid management -Supportive measures -Antibiotics 2. Multiple decubitus ulcerations with necrotic tissue and deep tissue injury -Offload -Local care -Vitamin C -Eventual nutritional optimization -Debridement when medically cleared 3. Contracted state with functional quadriplegia -Offloading -Nutritional optimization when possible 4. Anemia -Monitor 5. Ventilator dependent respiratory failure -Ventilator management and pulmonary toilet 6. Renal insufficiency -Judicious fluid management -Avoid nephrotoxic agents 7. Coronary artery disease and history of non-ST elevation [place] -Cardiac optimization 8. Thrombocytopenia -medical optimization Thank you Problems: Subjective 24 Hr Interval Summary On pressors. Tachycardia. Fever. Leukocytosis. No chills. No cough. No seizure. No rash. No blood rectum. No bloating. No seizures. No pyuria. Exam/Review of Systems Vital Signs Vitals Vital Signs Date Time Temp Pulse Resp B/P Pulse Ox O2 Delivery O2 Flow Rate FiO2 10/28/16 12:00 106 10/28/16 09:30 23 83/65 100 10/28/16 09:00 Mechanical Ventilator 10/28/16 08:30 30 10/28/16 08:00 99.0 Intake and Output 10/27/16 10/27/16 10/28/16 15:00 23:00 07:00 Intake Total 1223 ml 567 ml 394 ml Output Total 330 ml 250 ml 230 ml Balance 893 ml 317 ml 164 ml Exam Free Text/Dictation Constitutional: No alert, No oriented Psych: No nl mood/affect Head: atraumatic, normocephalic Eyes: nl conjunctiva, No EOMI, No icteric ENMT: mucosa pink and moist, nl external ears & nose Neck: jvd, other (Trach in place), No non-tender, No supple Respiratory: No congested cough, No labored breathing Cardiovascular: No regular rate and rhythm Gastrointestinal: non-tender, other (PEG in place), soft, No rebound or guarding Musculoskeletal: No joint tenderness, No nl extremities to inspection, No nl gait and stance Extremities: No calf tenderness, No cyanosis Neurological: No nl mental status, No nl speech, No nl strength Skin: rash or lesions (Multiple decubitus ulcerations with debris, necrotic tissue, deep tissue injury), No diaphoresis, No nl turgor Lymph: nontender Results Result Diagram: 10/28/16 0415 10/28/16 0415 EVA GUARDADO MD Oct 28, 2016 12:43
--- NOTE | 2016-10-28 13:41 | CONS ---
Date/Time of Note Date/Time of Note DATE: 10/28/16 TIME: 13:39 Assessment/Plan Assessment/Plan Additional Assessment/Plan 1. Acute kidney injury on chronic kidney disease. due to ATN from septic shock 2. septic shock on levophed 3. severe metabolic acidosis 4. Patient with intermittent episodes of tachycardia, telemetry reviewed with brief episodes of atrial fibrillation, sinus tachycardia.- on IV cardizem 5. History of chronic respiratory failure, status post tracheostomy, on ventilator. 6. History of G-tube. 7. Poor mental status due to the previous cerebrovascular accident. 8. History of dementia. 9. History of hypertension. PLAN: Cr 1.27, Na 131 BP labile continue ventilator care will follow up u/o Marginally low 790cc Consultation Date/Type/Reason Admit Date/Time Sep 24, 2016 at 03:19 Initial Consult Date 09/24/16 Type of Consultation: NEPHROLOGY Referring Provider: FELIX BLAKE DO 24 HR Interval Summary Free Text/Dictation Cr 1.27, Na 131, Remains on ventilator Exam/Review of Systems Vital Signs Vitals Vital Signs Date Time Temp Pulse Resp B/P Pulse Ox O2 Delivery O2 Flow Rate FiO2 10/28/16 12:00 106 10/28/16 09:30 23 83/65 100 10/28/16 09:00 Mechanical Ventilator 10/28/16 08:30 30 10/28/16 08:00 99.0 Intake and Output 10/27/16 10/27/16 10/28/16 15:00 23:00 07:00 Intake Total 1223 ml 567 ml 394 ml Output Total 330 ml 250 ml 230 ml Balance 893 ml 317 ml 164 ml Exam GENERAL: Chronically ill-appearing, elderly man who is in no distress. HEENT: Head atraumatic, normocephalic. Sclerae anicteric. Buccal mucosa dry. NECK: Supple. Tracheostomy present. CHEST: bilateral Clear BS, no wheezing HEART: tachycardia, intermittently in atrial fibrillation ABDOMEN: Obese, soft, bowel tones present. EXTREMITIES: No cyanosis. Bilateral edema., +scrotal edema stable SKIN: With multiple unstageable decubitus. Results Result Diagram: 10/28/16 0415 10/28/16 0415 Results 24 hrs Laboratory Tests Test 10/28/16 04:15 White Blood Count 20.5 H Red Blood Count 3.01 L Hemoglobin 8.1 L Hematocrit 27.0 L Mean Corpuscular Volume 89.7 Mean Corpuscular Hemoglobin 26.9 L Mean Corpuscular Hemoglobin Concent 30.0 L Red Cell Distribution Width 20.2 H Platelet Count 530 #H Mean Platelet Volume 10.9 H Neutrophils % 68.3 Lymphocytes % 14.0 L Monocytes % 11.5 H Eosinophils % 5.0 Basophils % 0.4 Nucleated Red Blood Cells % 0.0 Neutrophils # 14.0 H Lymphocytes # 2.9 Monocytes # 2.4 H Eosinophils # 1.0 H Basophils # 0.1 Nucleated Red Blood Cells # 0.0 Sodium Level 131 L Potassium Level 3.7 Chloride Level 110 # Carbon Dioxide Level 17 L Anion Gap 8 Blood Urea Nitrogen 28 H Creatinine 1.27 H Glucose Level 102 # Calcium Level 6.7 L Medications Medications Current Medications Acetaminophen (Tylenol Supp) 650 mg Q4H PRN [place] PAIN LEVEL 1-3 OR FEVER; Start 09/24/16 at 03:00 Eye Lubricant (Artificial Tears Oph) 1 drop TID BOTH EYES Last administered on 10/27/16 13:32; Admin Dose 1 DROP; Start 09/24/16 at 09:00 Sodium Hypochlorite (Dakin'S (1/4 Strength)) 1 applic BID IRR Last administered on 10/28/16 08:53; Admin Dose 1 APPLIC; Start 09/24/16 at 21:00 Collagenase (Santyl) 1 applic DAILY TOP Last administered on 10/28/16 08:53; Admin Dose 1 APPLIC; Start 09/24/16 at 20:30 Miscellaneous Information 1 ea NOTE XX ; Start 09/24/16 at 21:00 Glucose (Glutose) 15 gm Q15M PRN PO DECREASED GLUCOSE; Start 09/24/16 at 21:00 Glucose (Glutose) 22.5 gm Q15M PRN PO DECREASED GLUCOSE; Start 09/24/16 at 21: 00 Dextrose (D50w Syringe) 25 ml Q15M PRN IV DECREASED GLUCOSE; Start 09/24/16 at 21:00 Dextrose (D50w Syringe) 50 ml Q15M PRN IV DECREASED GLUCOSE; Start 09/24/16 at 21:00 Glucagon (Glucagen) 1 mg Q15M PRN IM DECREASED GLUCOSE; Start 09/24/16 at 21:00 Glucose (Glutose) 15 gm Q15M PRN BUCCAL DECREASED GLUCOSE; Start 09/24/16 at 21 :00 Vancomycin HCl (Vancomycin Oral Syringe) 250 mg Q6 PO Last administered on 17:15; Admin Dose 250 MG; Start 09/26/16 at 18:00; Status Future Hold Lactobacillus Acidoph/Bulgaricus (Floranex) 1 tab TID PO Last administered on 13:22; Admin Dose 1 TAB; Start 09/26/16 at 21:00; Status Future Hold Atorvastatin Calcium (Lipitor) 20 mg QHS GTB Last administered on 10/05/16 21: 42; Admin Dose 20 MG; Start 09/28/16 at 21:00; Status Future Hold Finasteride (Proscar) 5 mg DAILY GTB Last administered on 10/06/16 09:12; Admin Dose 5 MG; Start 09/29/16 at 09:00; Status Future Hold Multivitamins Therapeutic (Theragran) 1 tab DAILY GTB Last administered on 09:12; Admin Dose 1 TAB; Start 09/29/16 at 09:00; Status Future Hold Zinc Sulfate (Zinc Sulfate) 220 mg DAILY NGT Last administered on 10/06/16 09: 13; Admin Dose 220 MG; Start 09/29/16 at 09:00; Status Future Hold Ondansetron HCl (Zofran Inj) 4 mg Q6H PRN IV NAUSEA AND/OR VOMITING Last administered on 10/13/16 16:10; Admin Dose 4 MG; Start 09/29/16 at 07:30 Acetaminophen 650 mg 650 mg Q6H PRN GTB PAIN AND OR ELEVATED TEMP Last administered on 10/25/16 20:50; Admin Dose 650 MG; Start 10/02/16 at 08:00 Metronidazole (Flagyl 500 Mg (Pmx)) 100 ml @ 100 mls/hr Q8 IVPB Last administered on 10/28/16 05:55; Admin Dose 100 MLS/HR; Start 10/02/16 at 14:00 Midodrine 10 mg 10 mg TID@,,17 PO Last administered on 10/06/16 17:15; Admin Dose 10 MG; Start 10/06/16 at 01:00; Status Future Hold Linezolid (Zyvox 600mg/D5W (Pmx)) 300 ml @ 300 mls/hr Q12 IVPB Last administered on 10/28/16 08:52; Admin Dose 300 MLS/HR; Start 10/06/16 at 21:00 Levothyroxine Sodium (Synthroid Iv) 12.5 mcg DAILY@06 IV Last administered on 05:54; Admin Dose 12.5 MCG; Start 10/07/16 at 06:00 Metoclopramide HCl 5 mg 5 mg Q8 IV Last administered on 10/28/16 05:55; Admin Dose 5 MG; Start 10/06/16 at 22:00 Colistimethate Sodium/Sodium Chloride (Coly-Mycin/NS) 100 ml @ 200 mls/hr Q12 IVPB Last administered on 10/28/16 08:52; Admin Dose 200 MLS/HR; Start at 13:30 Lansoprazole (Prevacid) 30 mg BID@,18 GTB Last administered on 10/28/16 05: 54; Admin Dose 30 MG; Start 10/21/16 at 18:00 IV Flush (NS 10 ml) 10 ml PRN PRN IV IV PROTOCOL; Start 10/22/16 at 14:30 Amiodarone HCl 400 mg 400 mg BID NGT Last administered on 10/28/16 09:18; Admin Dose 400 MG; Start 10/25/16 at 12:30 Norepinephrine/ Sodium Chloride (Levophed/NS) 500 ml @ 1.87 mls/hr TITRATE IV Last administered on 10/28/16 06:26; Admin Dose 41.25 MLS/HR; Start 10/27/16 at 12:30 MAGGIE DINERO MD Oct 28, 2016 13:41
--- NOTE | 2016-10-28 14:07 | PN ---
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 Patient has poor prognosis is chronically trached and has a PEG and has multiple decubitus ulcers at this time Continue wound care Continue PEG tube feeding (3) Septic shock secondary to multiple decubitus ulcers -Continue pressor support and antibiotics (4) Respiratory failure, chronic Continue vent support (5) Coronary artery disease-Stable Prophylaxis: SCDs Problems: Subjective 24 Hr Interval Summary Subjective hx not possible: pt non-verbal Exam/Review of Systems Vital Signs Vitals Vital Signs Date Time Temp Pulse Resp B/P Pulse Ox O2 Delivery O2 Flow Rate FiO2 10/28/16 12:00 106 10/28/16 09:30 23 83/65 100 10/28/16 09:00 Mechanical Ventilator 10/28/16 08:30 30 10/28/16 08:00 99.0 Intake and Output 10/27/16 10/27/16 10/28/16 15:00 23:00 07:00 Intake Total 1223 ml 567 ml 394 ml Output Total 330 ml 250 ml 230 ml Balance 893 ml 317 ml 164 ml Exam Constitutional: non-verbal Respiratory: clear to auscultation Cardiovascular: regular rate and rhythm Gastrointestinal: soft, No distended Musculoskeletal: nl extremities to inspection Results Result Diagram: 10/28/16 0415 10/28/16 0415 Results 24 hrs Laboratory Tests Test 10/28/16 04:15 White Blood Count 20.5 H Red Blood Count 3.01 L Hemoglobin 8.1 L Hematocrit 27.0 L Mean Corpuscular Volume 89.7 Mean Corpuscular Hemoglobin 26.9 L Mean Corpuscular Hemoglobin Concent 30.0 L Red Cell Distribution Width 20.2 H Platelet Count 530 #H Mean Platelet Volume 10.9 H Neutrophils % 68.3 Lymphocytes % 14.0 L Monocytes % 11.5 H Eosinophils % 5.0 Basophils % 0.4 Nucleated Red Blood Cells % 0.0 Neutrophils # 14.0 H Lymphocytes # 2.9 Monocytes # 2.4 H Eosinophils # 1.0 H Basophils # 0.1 Nucleated Red Blood Cells # 0.0 Sodium Level 131 L Potassium Level 3.7 Chloride Level 110 # Carbon Dioxide Level 17 L Anion Gap 8 Blood Urea Nitrogen 28 H Creatinine 1.27 H Glucose Level 102 # Calcium Level 6.7 L Medications Medications Current Medications Acetaminophen (Tylenol Supp) 650 mg Q4H PRN [place] PAIN LEVEL 1-3 OR FEVER; Start 09/24/16 at 03:00 Eye Lubricant (Artificial Tears Oph) 1 drop TID BOTH EYES Last administered on 10/27/16 13:32; Admin Dose 1 DROP; Start 09/24/16 at 09:00 Sodium Hypochlorite (Dakin'S (1/4 Strength)) 1 applic BID IRR Last administered on 10/28/16 08:53; Admin Dose 1 APPLIC; Start 09/24/16 at 21:00 Collagenase (Santyl) 1 applic DAILY TOP Last administered on 10/28/16 08:53; Admin Dose 1 APPLIC; Start 09/24/16 at 20:30 Miscellaneous Information 1 ea NOTE XX ; Start 09/24/16 at 21:00 Glucose (Glutose) 15 gm Q15M PRN PO DECREASED GLUCOSE; Start 09/24/16 at 21:00 Glucose (Glutose) 22.5 gm Q15M PRN PO DECREASED GLUCOSE; Start 09/24/16 at 21: 00 Dextrose (D50w Syringe) 25 ml Q15M PRN IV DECREASED GLUCOSE; Start 09/24/16 at 21:00 Dextrose (D50w Syringe) 50 ml Q15M PRN IV DECREASED GLUCOSE; Start 09/24/16 at 21:00 Glucagon (Glucagen) 1 mg Q15M PRN IM DECREASED GLUCOSE; Start 09/24/16 at 21:00 Glucose (Glutose) 15 gm Q15M PRN BUCCAL DECREASED GLUCOSE; Start 09/24/16 at 21 :00 Vancomycin HCl (Vancomycin Oral Syringe) 250 mg Q6 PO Last administered on 17:15; Admin Dose 250 MG; Start 09/26/16 at 18:00; Status Future Hold Lactobacillus Acidoph/Bulgaricus (Floranex) 1 tab TID PO Last administered on 13:22; Admin Dose 1 TAB; Start 09/26/16 at 21:00; Status Future Hold Atorvastatin Calcium (Lipitor) 20 mg QHS GTB Last administered on 10/05/16 21: 42; Admin Dose 20 MG; Start 09/28/16 at 21:00; Status Future Hold Finasteride (Proscar) 5 mg DAILY GTB Last administered on 10/06/16 09:12; Admin Dose 5 MG; Start 09/29/16 at 09:00; Status Future Hold Multivitamins Therapeutic (Theragran) 1 tab DAILY GTB Last administered on 09:12; Admin Dose 1 TAB; Start 09/29/16 at 09:00; Status Future Hold Zinc Sulfate (Zinc Sulfate) 220 mg DAILY NGT Last administered on 10/06/16 09: 13; Admin Dose 220 MG; Start 09/29/16 at 09:00; Status Future Hold Ondansetron HCl (Zofran Inj) 4 mg Q6H PRN IV NAUSEA AND/OR VOMITING Last administered on 10/13/16 16:10; Admin Dose 4 MG; Start 09/29/16 at 07:30 Acetaminophen 650 mg 650 mg Q6H PRN GTB PAIN AND OR ELEVATED TEMP Last administered on 10/25/16 20:50; Admin Dose 650 MG; Start 10/02/16 at 08:00 Metronidazole (Flagyl 500 Mg (Pmx)) 100 ml @ 100 mls/hr Q8 IVPB Last administered on 10/28/16 05:55; Admin Dose 100 MLS/HR; Start 10/02/16 at 14:00 Midodrine 10 mg 10 mg TID@,,17 PO Last administered on 10/06/16 17:15; Admin Dose 10 MG; Start 10/06/16 at 01:00; Status Future Hold Linezolid (Zyvox 600mg/D5W (Pmx)) 300 ml @ 300 mls/hr Q12 IVPB Last administered on 10/28/16 08:52; Admin Dose 300 MLS/HR; Start 10/06/16 at 21:00 Levothyroxine Sodium (Synthroid Iv) 12.5 mcg DAILY@06 IV Last administered on 05:54; Admin Dose 12.5 MCG; Start 10/07/16 at 06:00 Metoclopramide HCl 5 mg 5 mg Q8 IV Last administered on 10/28/16 05:55; Admin Dose 5 MG; Start 10/06/16 at 22:00 Colistimethate Sodium/Sodium Chloride (Coly-Mycin/NS) 100 ml @ 200 mls/hr Q12 IVPB Last administered on 10/28/16 08:52; Admin Dose 200 MLS/HR; Start at 13:30 Lansoprazole (Prevacid) 30 mg BID@06,18 GTB Last administered on 10/28/16 05: 54; Admin Dose 30 MG; Start 10/21/16 at 18:00 IV Flush (NS 10 ml) 10 ml PRN PRN IV IV PROTOCOL; Start 10/22/16 at 14:30 Amiodarone HCl 400 mg 400 mg BID NGT Last administered on 10/28/16 09:18; Admin Dose 400 MG; Start 10/25/16 at 12:30 Norepinephrine/ Sodium Chloride (Levophed/NS) 500 ml @ 1.87 mls/hr TITRATE IV Last administered on 10/28/16 06:26; Admin Dose 41.25 MLS/HR; Start 10/27/16 at 12:30 KEVYN GARNETT Oct 28, 2016 14:07
--- NOTE | 2016-10-28 15:22 | CONS ---
Date/Time of Note Date/Time of Note DATE: 10/28/16 TIME: 15:20 Assessment/Plan Assessment/Plan Additional Assessment/Plan Sepsis Preserved ejection fraction Moderate aortic stenosis Respiratory failure/Tracheostomy Coronary artery disease Anemia Paroxysmal atrial fibrillation rapid ventricular rates -Continue amiodarone as heart rate tolerates. Antibiotics as per infectious disease. Maintain potassium above 4.0 and magnesium above 2.0. No AV darwin blocking agents at the current time given hypotension. Consultation Date/Type/Reason Admit Date/Time Sep 24, 2016 at 03:19 Initial Consult Date 09/24/16 Type of Consultation: cv Referring Provider: FELIX BLAKE DO 24 HR Interval Summary Free Text/Dictation Patient seen and examined Exam/Review of Systems Vital Signs Vitals Vital Signs Date Time Temp Pulse Resp B/P Pulse Ox O2 Delivery O2 Flow Rate FiO2 10/28/16 12:00 106 10/28/16 09:30 23 83/65 100 10/28/16 09:00 Mechanical Ventilator 10/28/16 08:30 30 10/28/16 08:00 99.0 Intake and Output 10/27/16 10/27/16 10/28/16 15:00 23:00 07:00 Intake Total 1223 ml 567 ml 394 ml Output Total 330 ml 250 ml 230 ml Balance 893 ml 317 ml 164 ml Exam Awake, no apparent distress, not following commands Head: normocephalic Neck: other (Tracheostomy) Respiratory: other (Coarse breath sounds bilaterally, no wheezing) Cardiovascular: other (S1-S2 heard), regular rate and rhythm Gastrointestinal: bowel sounds, distended, soft Extremities: edema Results Result Diagram: 10/28/16 0415 10/28/16 0415 Results 24 hrs Laboratory Tests Test 10/28/16 04:15 White Blood Count 20.5 H Red Blood Count 3.01 L Hemoglobin 8.1 L Hematocrit 27.0 L Mean Corpuscular Volume 89.7 Mean Corpuscular Hemoglobin 26.9 L Mean Corpuscular Hemoglobin Concent 30.0 L Red Cell Distribution Width 20.2 H Platelet Count 530 #H Mean Platelet Volume 10.9 H Neutrophils % 68.3 Lymphocytes % 14.0 L Monocytes % 11.5 H Eosinophils % 5.0 Basophils % 0.4 Nucleated Red Blood Cells % 0.0 Neutrophils # 14.0 H Lymphocytes # 2.9 Monocytes # 2.4 H Eosinophils # 1.0 H Basophils # 0.1 Nucleated Red Blood Cells # 0.0 Sodium Level 131 L Potassium Level 3.7 Chloride Level 110 # Carbon Dioxide Level 17 L Anion Gap 8 Blood Urea Nitrogen 28 H Creatinine 1.27 H Glucose Level 102 # Calcium Level 6.7 L Medications Medications Current Medications Acetaminophen (Tylenol Supp) 650 mg Q4H PRN [place] PAIN LEVEL 1-3 OR FEVER; Start 09/24/16 at 03:00 Eye Lubricant (Artificial Tears Oph) 1 drop TID BOTH EYES Last administered on 10/27/16 13:32; Admin Dose 1 DROP; Start 09/24/16 at 09:00 Sodium Hypochlorite (Dakin'S (1/4 Strength)) 1 applic BID IRR Last administered on 10/28/16 08:53; Admin Dose 1 APPLIC; Start 09/24/16 at 21:00 Collagenase (Santyl) 1 applic DAILY TOP Last administered on 10/28/16 08:53; Admin Dose 1 APPLIC; Start 09/24/16 at 20:30 Miscellaneous Information 1 ea NOTE XX ; Start 09/24/16 at 21:00 Glucose (Glutose) 15 gm Q15M PRN PO DECREASED GLUCOSE; Start 09/24/16 at 21:00 Glucose (Glutose) 22.5 gm Q15M PRN PO DECREASED GLUCOSE; Start 09/24/16 at 21: 00 Dextrose (D50w Syringe) 25 ml Q15M PRN IV DECREASED GLUCOSE; Start 09/24/16 at 21:00 Dextrose (D50w Syringe) 50 ml Q15M PRN IV DECREASED GLUCOSE; Start 09/24/16 at 21:00 Glucagon (Glucagen) 1 mg Q15M PRN IM DECREASED GLUCOSE; Start 09/24/16 at 21:00 Glucose (Glutose) 15 gm Q15M PRN BUCCAL DECREASED GLUCOSE; Start 09/24/16 at 21 :00 Vancomycin HCl (Vancomycin Oral Syringe) 250 mg Q6 PO Last administered on 17:15; Admin Dose 250 MG; Start 09/26/16 at 18:00; Status Future Hold Lactobacillus Acidoph/Bulgaricus (Floranex) 1 tab TID PO Last administered on 13:22; Admin Dose 1 TAB; Start 09/26/16 at 21:00; Status Future Hold Atorvastatin Calcium (Lipitor) 20 mg QHS GTB Last administered on 10/05/16 21: 42; Admin Dose 20 MG; Start 09/28/16 at 21:00; Status Future Hold Finasteride (Proscar) 5 mg DAILY GTB Last administered on 10/06/16 09:12; Admin Dose 5 MG; Start 09/29/16 at 09:00; Status Future Hold Multivitamins Therapeutic (Theragran) 1 tab DAILY GTB Last administered on 09:12; Admin Dose 1 TAB; Start 09/29/16 at 09:00; Status Future Hold Zinc Sulfate (Zinc Sulfate) 220 mg DAILY NGT Last administered on 10/06/16 09: 13; Admin Dose 220 MG; Start 09/29/16 at 09:00; Status Future Hold Ondansetron HCl (Zofran Inj) 4 mg Q6H PRN IV NAUSEA AND/OR VOMITING Last administered on 10/13/16 16:10; Admin Dose 4 MG; Start 09/29/16 at 07:30 Acetaminophen 650 mg 650 mg Q6H PRN GTB PAIN AND OR ELEVATED TEMP Last administered on 10/25/16 20:50; Admin Dose 650 MG; Start 10/02/16 at 08:00 Metronidazole (Flagyl 500 Mg (Pmx)) 100 ml @ 100 mls/hr Q8 IVPB Last administered on 10/28/16 05:55; Admin Dose 100 MLS/HR; Start 10/02/16 at 14:00 Midodrine 10 mg 10 mg TID@,,17 PO Last administered on 10/06/16 17:15; Admin Dose 10 MG; Start 10/06/16 at 01:00; Status Future Hold Linezolid (Zyvox 600mg/D5W (Pmx)) 300 ml @ 300 mls/hr Q12 IVPB Last administered on 10/28/16 08:52; Admin Dose 300 MLS/HR; Start 10/06/16 at 21:00 Levothyroxine Sodium (Synthroid Iv) 12.5 mcg DAILY@06 IV Last administered on 05:54; Admin Dose 12.5 MCG; Start 10/07/16 at 06:00 Metoclopramide HCl 5 mg 5 mg Q8 IV Last administered on 10/28/16 05:55; Admin Dose 5 MG; Start 10/06/16 at 22:00 Colistimethate Sodium/Sodium Chloride (Coly-Mycin/NS) 100 ml @ 200 mls/hr Q12 IVPB Last administered on 10/28/16 08:52; Admin Dose 200 MLS/HR; Start at 13:30 Lansoprazole (Prevacid) 30 mg BID@06,18 GTB Last administered on 10/28/16 05: 54; Admin Dose 30 MG; Start 10/21/16 at 18:00 IV Flush (NS 10 ml) 10 ml PRN PRN IV IV PROTOCOL; Start 10/22/16 at 14:30 Amiodarone HCl 400 mg 400 mg BID NGT Last administered on 10/28/16 09:18; Admin Dose 400 MG; Start 10/25/16 at 12:30 Norepinephrine/ Sodium Chloride (Levophed/NS) 500 ml @ 1.87 mls/hr TITRATE IV Last administered on 10/28/16 06:26; Admin Dose 41.25 MLS/HR; Start 10/27/16 at 12:30 Ryder Wild DO Oct 28, 2016 15:22
[2016-10-28] MEDS ORDERED: MAGNESIUM SULFATE 2 GM/50 ML 50 ML IVPB ONE (15:30)
--- NOTE | 2016-10-28 15:59 | PN ---
DATE: 10/28/2016 SUBJECTIVE: This patient himself is not capable of expressing any complaints. He does have bad con tractures of the lower extremities as well as very large penoscrotal edema. OBJECTIVE: VITAL SIGNS: His temperature is 99.0, pulse is 106, respirations 23, blood pressure 83/65. ABDOMEN: As far as one could see the abdomen is a little distended. The lower extremities are very contracted and flex onto the stomach and one could a little bit separate them to see that the Cee catheter is inside his penis, but he still has the penoscrotal edema. LABORATORY DATA: CBC shows a white count of 20.5, hemoglobin 8.1, hematocrit 27.0, BUN is 28, creat inine 1.27, sodium 131, potassium 3.7, chloride 110, CO2 17. Urine culture on 10/19/2016 was no ariadna wth after 48 hours. IMPRESSION: Penoscrotal edema and the patient does have contractures of the lower extremities. PLAN: To keep the Cee catheter in and keep the scrotum and penis elevated on a towel all the time and keep also a pillow between his knees, so he does end developing a sore on his knees. Dictated By: MISHEL WOODWARD/ELIZABETH Conf#: [id number] DID#: [id number]
[2016-10-29] VITALS (100 sets, daily range): BP systolic 60–107; BP diastolic 43–84; PULSE 102–123; RESP 17–36
[2016-10-29] MEDS: ALBUTEROL 18 GM INHALER INH SCH ×4 (01:33→19:55)
[2016-10-29] MEDS: IPRATROPIUM (HFA) 12.9 GM INHALER INH SCH ×4 (01:34→19:55)
[2016-10-29 04:46] LABS: ADD SCAN DIFF NO
[2016-10-29 05:04] LABS: ABNORMAL IP MESSAGE 1; BASOPHIL # 0.1 10^3/ul (0.0-0.1); BASOPHILS % 0.3 % (0.0-2.0); EOSINOPHILS # 0.8 10^3/ul (0.0-0.5); EOSINOPHILS % 4.2 % (0.0-7.0); HEMATOCRIT 26.6 % (42.0-52.0); LYMPHOCYTES # 3.4 10^3/ul (0.8-2.9); LYMPHOCYTES % 17.5 % (15.0-51.0); MEAN CORPUSCULAR HEMOGLOBIN 27.2 pg (29.0-33.0); MEAN CORPUSCULAR HGB CONC 30.1 g/dl (32.0-37.0); MEAN CORPUSCULAR VOLUME 90.5 fl (82.0-101.0); MEAN PLATELET VOLUME 10.6 fl (7.4-10.4); MONOCYTE # 2.1 10^3/ul (0.3-0.9); MONOCYTES % 10.5 % (0.0-11.0); NEUTROPHIL # 13.1 10^3/ul (1.6-7.5); NEUTROPHILS % 66.7 % (39.0-77.0); PLATELET COUNT 595 10^3/UL (140-415); RED BLOOD COUNT 2.94 10^6/ul (4.70-6.10); RED CELL DISTRIBUTION WIDTH 20.5 % (11.5-14.5); WHITE BLOOD COUNT 19.6 10^3/ul (4.8-10.8)
[2016-10-29 05:09] LABS: CALCIUM 6.5 mg/dl (8.4-10.2); CREATININE 1.36 mg/dl (0.61-1.24); POTASSIUM 3.7 mmol/L (3.5-5.1)
[2016-10-29] MEDS: METOCLOPRAMIDE 10 MG INJ IV SCH ×3 (05:32→21:15)
[2016-10-29] MEDS: LEVOTHYROXINE 100 MCG VIAL IV SCH (05:32)
[2016-10-29] MEDS: LANSOPRAZOLE 30 MG CAP GTB SCH ×2 (05:32→18:38)
[2016-10-29] MEDS: metroNIDAZOLE 500 MG/NS (PMX) 100 ML IVPB SCH ×3 (05:32→21:41)
[2016-10-29] MEDS: NORepinephrine 16 MG in SOD CHLORIDE 0.9% 484 ML IV SCH (05:40)
[2016-10-29] MEDS: LINEZOLID 600 MG/D5W (PMX) 300 ML IVPB SCH ×2 (09:02→21:14)
[2016-10-29] MEDS: SODIUM HYPOCHLORITE 0.125% 473 ML BTL IRR SCH ×2 (09:02→21:15)
[2016-10-29] MEDS: COLISTIMETHATE 75 MG in SOD CHLORIDE 0.9% 100 ML IVPB SCH ×2 (09:02→20:30)
[2016-10-29] MEDS: ARTIFICIAL TEARS 15 ML OPH BOTH EYES SCH ×3 (09:02→21:00)
[2016-10-29] MEDS: AMIODARONE 200 MG TAB NGT SCH ×2 (09:04→21:15)
[2016-10-29] MEDS: COLLAGENASE 30 GM TUBE TOP SCH (09:04)
--- NOTE | 2016-10-29 09:40 | CONS ---
Date/Time of Note Date/Time of Note DATE: 10/29/16 TIME: 09:38 Assessment/Plan Assessment/Plan Additional Assessment/Plan Ventilator settings; AC of 16, tidal volume 500, PEEP of 5, 30% FiO2. Patient currently on Levophed at 30 mics per minute. Assessment recommendations; next 1. Patient admitted for recurrent sepsis, has multiple severe sacral decubitus ulcers. 2. Left lower lobe pneumonia. 3. Chronic respiratory failure, patient remains ventilator dependent. 4. 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 5. History of BPH. 6. Anemia. 7. Hypothyroidism. 8. History of renal insufficiency. Continue current supportive care. Prognosis is extremely poor. 35 minutes of critical care time was spent evaluating the patient. Consultation Date/Type/Reason Admit Date/Time Sep 24, 2016 at 03:19 Initial Consult Date 09/24/16 Type of Consultation: Pulmonary/critical care Referring Provider: FELIX BLAKE DO 24 HR Interval Summary Free Text/Dictation Patient condition remains critical. Requiring high-dose Levophed for blood pressure maintenance. Remains unresponsive due to multi-infarct dementia. General exam; elderly male, on ventilator via tracheostomy currently in no distress, unresponsive. Exam/Review of Systems Vital Signs Vitals Vital Signs Date Time Temp Pulse Resp B/P Pulse Ox O2 Delivery O2 Flow Rate FiO2 10/29/16 08:30 111 31 78/57 98 10/29/16 08:00 99.4 Mechanical Ventilator 10/29/16 05:20 30 Intake and Output 10/28/16 10/28/16 10/29/16 15:00 23:00 07:00 Intake Total 1048 ml 1263 ml 645.5 ml Output Total 370 ml 380 ml 170 ml Balance 678 ml 883 ml 475.5 ml Exam HEENT examined; supple neck, no JVD. No lymphadenopathy. Midline trachea. No thyromegaly. Patient has bilateral cataracts. Has multiple carious teeth. Tracheostomy in place with clean insertion site. Chest examination CA: Diminished but clear breath sounds. S1-S2 audible, no murmurs. Regular rhythm. Abdomen examination; soft, G-tube in place. No organomegaly. Bowel sounds audible. Extremity exam is; no peripheral edema. Patient has contractures involving all 4 extremities. [employer] examination; patient remains unresponsive. Results Result Diagram: 10/29/16 0410 10/29/16 041 Results 24 hrs Laboratory Tests Test 10/29/16 04:10 White Blood Count 19.6 H Red Blood Count 2.94 L Hemoglobin 8.0 L Hematocrit 26.6 L Mean Corpuscular Volume 90.5 Mean Corpuscular Hemoglobin 27.2 L Mean Corpuscular Hemoglobin Concent 30.1 L Red Cell Distribution Width 20.5 H Platelet Count 595 H Mean Platelet Volume 10.6 H Neutrophils % 66.7 Lymphocytes % 17.5 Monocytes % 10.5 Eosinophils % 4.2 Basophils % 0.3 Nucleated Red Blood Cells % 0.0 Neutrophils # 13.1 H Lymphocytes # 3.4 H Monocytes # 2.1 H Eosinophils # 0.8 H Basophils # 0.1 Nucleated Red Blood Cells # 0.0 Sodium Level 131 L Potassium Level 3.7 Chloride Level 111 H Carbon Dioxide Level 14 L Anion Gap 10 Blood Urea Nitrogen 26 H Creatinine 1.36 H Glucose Level 109 Calcium Level 6.5 L Medications Medications Current Medications Acetaminophen (Tylenol Supp) 650 mg Q4H PRN [place] PAIN LEVEL 1-3 OR FEVER; Start 09/24/16 at 03:00 Eye Lubricant (Artificial Tears Oph) 1 drop TID BOTH EYES Last administered on 10/29/16 09:02; Admin Dose 1 DROP; Start 09/24/16 at 09:00 Sodium Hypochlorite (Dakin'S (1/4 Strength)) 1 applic BID IRR Last administered on 10/29/16 09:02; Admin Dose 1 APPLIC; Start 09/24/16 at 21:00 Collagenase (Santyl) 1 applic DAILY TOP Last administered on 10/29/16 09:04; Admin Dose 1 APPLIC; Start 09/24/16 at 20:30 Miscellaneous Information 1 ea NOTE XX ; Start 09/24/16 at 21:00 Glucose (Glutose) 15 gm Q15M PRN PO DECREASED GLUCOSE; Start 09/24/16 at 21:00 Glucose (Glutose) 22.5 gm Q15M PRN PO DECREASED GLUCOSE; Start 09/24/16 at 21: 00 Dextrose (D50w Syringe) 25 ml Q15M PRN IV DECREASED GLUCOSE; Start 09/24/16 at 21:00 Dextrose (D50w Syringe) 50 ml Q15M PRN IV DECREASED GLUCOSE; Start 09/24/16 at 21:00 Glucagon (Glucagen) 1 mg Q15M PRN IM DECREASED GLUCOSE; Start 09/24/16 at 21:00 Glucose (Glutose) 15 gm Q15M PRN BUCCAL DECREASED GLUCOSE; Start 09/24/16 at 21 :00 Vancomycin HCl (Vancomycin Oral Syringe) 250 mg Q6 PO Last administered on 17:15; Admin Dose 250 MG; Start 09/26/16 at 18:00; Status Future Hold Lactobacillus Acidoph/Bulgaricus (Floranex) 1 tab TID PO Last administered on 13:22; Admin Dose 1 TAB; Start 09/26/16 at 21:00; Status Future Hold Atorvastatin Calcium (Lipitor) 20 mg QHS GTB Last administered on 10/05/16 21: 42; Admin Dose 20 MG; Start 09/28/16 at 21:00; Status Future Hold Finasteride (Proscar) 5 mg DAILY GTB Last administered on 10/06/16 09:12; Admin Dose 5 MG; Start 09/29/16 at 09:00; Status Future Hold Multivitamins Therapeutic (Theragran) 1 tab DAILY GTB Last administered on 09:12; Admin Dose 1 TAB; Start 09/29/16 at 09:00; Status Future Hold Zinc Sulfate (Zinc Sulfate) 220 mg DAILY NGT Last administered on 10/06/16 09: 13; Admin Dose 220 MG; Start 09/29/16 at 09:00; Status Future Hold Ondansetron HCl (Zofran Inj) 4 mg Q6H PRN IV NAUSEA AND/OR VOMITING Last administered on 10/13/16 16:10; Admin Dose 4 MG; Start 09/29/16 at 07:30 Acetaminophen 650 mg 650 mg Q6H PRN GTB PAIN AND OR ELEVATED TEMP Last administered on 10/25/16 20:50; Admin Dose 650 MG; Start 10/02/16 at 08:00 Metronidazole (Flagyl 500 Mg (Pmx)) 100 ml @ 100 mls/hr Q8 IVPB Last administered on 10/29/16 05:32; Admin Dose 100 MLS/HR; Start 10/02/16 at 14:00 Midodrine 10 mg 10 mg TID@,,17 PO Last administered on 10/06/16 17:15; Admin Dose 10 MG; Start 10/06/16 at 01:00; Status Future Hold Linezolid (Zyvox 600mg/D5W (Pmx)) 300 ml @ 300 mls/hr Q12 IVPB Last administered on 10/29/16 09:02; Admin Dose 300 MLS/HR; Start 10/06/16 at 21:00 Levothyroxine Sodium (Synthroid Iv) 12.5 mcg DAILY@06 IV Last administered on 05:32; Admin Dose 12.5 MCG; Start 10/07/16 at 06:00 Metoclopramide HCl 5 mg 5 mg Q8 IV Last administered on 10/29/16 05:32; Admin Dose 5 MG; Start 10/06/16 at 22:00 Colistimethate Sodium/Sodium Chloride (Coly-Mycin/NS) 100 ml @ 200 mls/hr Q12 IVPB Last administered on 10/29/16 09:02; Admin Dose 200 MLS/HR; Start at 13:30 Lansoprazole (Prevacid) 30 mg BID@06,18 GTB Last administered on 10/29/16 05: 32; Admin Dose 30 MG; Start 10/21/16 at 18:00 IV Flush (NS 10 ml) 10 ml PRN PRN IV IV PROTOCOL; Start 10/22/16 at 14:30 Amiodarone HCl 400 mg 400 mg BID NGT Last administered on 10/29/16 09:04; Admin Dose 400 MG; Start 10/25/16 at 12:30 Norepinephrine 32 mg/Dextrose 250 ml @ 0.46 mls/hr TITRATE IV ; Start 10/29/16 at 08:00 Phenylephrine HCl/ Dextrose (Eulogio-Syneph/D5W) 250 ml @ 0 mls/hr TITRATE IV ; Start 10/29/16 at 08:00 MAIN SALTER Oct 29, 2016 09:40
[2016-10-29] MEDS: PHENYLephrine 80 MG in DEXTROSE 5% 242 ML IV SCH (10:33)
--- NOTE | 2016-10-29 11:10 | CONS ---
Date/Time of Note Date/Time of Note DATE: 10/29/16 TIME: 11:07 Assessment/Plan Assessment/Plan Additional Assessment/Plan 1. Acute kidney injury on chronic kidney disease. due to ATN from septic shock , non Oliguric 2. septic shock on levophed 3. severe metabolic acidosis with HCo3 14 today 4. acute on chronic respiratory failure, status post tracheostomy, on ventilator. 6. History of G-tube. 7. Poor mental status due to the previous cerebrovascular accident. 8. History of dementia. 9. History of hypertension. PLAN: Cr 1.36, Na 131,m HCo3 14, U/o 850 cc- will start pt on D5W with 2 ampoules of sodium bicarbonate at 80 cc/hr BP labile on two pressors continue ventilator care will follow up u/o Marginally low 850cc will continue to follow up on patient Consultation Date/Type/Reason Admit Date/Time Sep 24, 2016 at 03:19 Initial Consult Date 09/24/16 Type of Consultation: NEPHROLOGY Reason for Consultation acute kidney injury,severe metabolic acidosis Referring Provider: FELIX BLAKE DO 24 HR Interval Summary Free Text/Dictation Pt requires Addition of pressors for BP support, HCO3 14, BP low, Exam/Review of Systems Vital Signs Vitals Vital Signs Date Time Temp Pulse Resp B/P Pulse Ox O2 Delivery O2 Flow Rate FiO2 10/29/16 08:30 111 31 78/57 98 10/29/16 08:00 99.4 Mechanical Ventilator 10/29/16 05:20 30 Intake and Output 10/28/16 10/28/16 10/29/16 15:00 23:00 07:00 Intake Total 1048 ml 1263 ml 645.5 ml Output Total 370 ml 380 ml 170 ml Balance 678 ml 883 ml 475.5 ml Exam GENERAL: Chronic ill, vented, contracted hands, generalized dependent edema HEENT: Unremarkable NECK: Trach -> Secure to Vent CHEST: Equal chest rise bilaterally, without dyspnea on observation HEART: Pulse RRR ABDOMEN: Soft/peg EXTREMITIES: Warm SKIN: See hard chart skin assessment= multiple decubs Results Result Diagram: 10/29/16 0410 10/29/16 0410 Results 24 hrs Laboratory Tests Test 10/29/16 04:10 White Blood Count 19.6 H Red Blood Count 2.94 L Hemoglobin 8.0 L Hematocrit 26.6 L Mean Corpuscular Volume 90.5 Mean Corpuscular Hemoglobin 27.2 L Mean Corpuscular Hemoglobin Concent 30.1 L Red Cell Distribution Width 20.5 H Platelet Count 595 H Mean Platelet Volume 10.6 H Neutrophils % 66.7 Lymphocytes % 17.5 Monocytes % 10.5 Eosinophils % 4.2 Basophils % 0.3 Nucleated Red Blood Cells % 0.0 Neutrophils # 13.1 H Lymphocytes # 3.4 H Monocytes # 2.1 H Eosinophils # 0.8 H Basophils # 0.1 Nucleated Red Blood Cells # 0.0 Sodium Level 131 L Potassium Level 3.7 Chloride Level 111 H Carbon Dioxide Level 14 L Anion Gap 10 Blood Urea Nitrogen 26 H Creatinine 1.36 H Glucose Level 109 Calcium Level 6.5 L Medications Medications Current Medications Acetaminophen (Tylenol Supp) 650 mg Q4H PRN [place] PAIN LEVEL 1-3 OR FEVER; Start 09/24/16 at 03:00 Eye Lubricant (Artificial Tears Oph) 1 drop TID BOTH EYES Last administered on 10/29/16 09:02; Admin Dose 1 DROP; Start 09/24/16 at 09:00 Sodium Hypochlorite (Dakin'S (1/4 Strength)) 1 applic BID IRR Last administered on 10/29/16 09:02; Admin Dose 1 APPLIC; Start 09/24/16 at 21:00 Collagenase (Santyl) 1 applic DAILY TOP Last administered on 10/29/16 09:04; Admin Dose 1 APPLIC; Start 09/24/16 at 20:30 Miscellaneous Information 1 ea NOTE XX ; Start 09/24/16 at 21:00 Glucose (Glutose) 15 gm Q15M PRN PO DECREASED GLUCOSE; Start 09/24/16 at 21:00 Glucose (Glutose) 22.5 gm Q15M PRN PO DECREASED GLUCOSE; Start 09/24/16 at 21: 00 Dextrose (D50w Syringe) 25 ml Q15M PRN IV DECREASED GLUCOSE; Start 09/24/16 at 21:00 Dextrose (D50w Syringe) 50 ml Q15M PRN IV DECREASED GLUCOSE; Start 09/24/16 at 21:00 Glucagon (Glucagen) 1 mg Q15M PRN IM DECREASED GLUCOSE; Start 09/24/16 at 21:00 Glucose (Glutose) 15 gm Q15M PRN BUCCAL DECREASED GLUCOSE; Start 09/24/16 at 21 :00 Vancomycin HCl (Vancomycin Oral Syringe) 250 mg Q6 PO Last administered on 17:15; Admin Dose 250 MG; Start 09/26/16 at 18:00; Status Future Hold Lactobacillus Acidoph/Bulgaricus (Floranex) 1 tab TID PO Last administered on 13:22; Admin Dose 1 TAB; Start 09/26/16 at 21:00; Status Future Hold Atorvastatin Calcium (Lipitor) 20 mg QHS GTB Last administered on 10/05/16 21: 42; Admin Dose 20 MG; Start 09/28/16 at 21:00; Status Future Hold Finasteride (Proscar) 5 mg DAILY GTB Last administered on 10/06/16 09:12; Admin Dose 5 MG; Start 09/29/16 at 09:00; Status Future Hold Multivitamins Therapeutic (Theragran) 1 tab DAILY GTB Last administered on 09:12; Admin Dose 1 TAB; Start 09/29/16 at 09:00; Status Future Hold Zinc Sulfate (Zinc Sulfate) 220 mg DAILY NGT Last administered on 10/06/16 09: 13; Admin Dose 220 MG; Start 09/29/16 at 09:00; Status Future Hold Ondansetron HCl (Zofran Inj) 4 mg Q6H PRN IV NAUSEA AND/OR VOMITING Last administered on 10/13/16 16:10; Admin Dose 4 MG; Start 09/29/16 at 07:30 Acetaminophen 650 mg 650 mg Q6H PRN GTB PAIN AND OR ELEVATED TEMP Last administered on 10/25/16 20:50; Admin Dose 650 MG; Start 10/02/16 at 08:00 Metronidazole (Flagyl 500 Mg (Pmx)) 100 ml @ 100 mls/hr Q8 IVPB Last administered on 10/29/16 05:32; Admin Dose 100 MLS/HR; Start 10/02/16 at 14:00 Midodrine 10 mg 10 mg TID@,,17 PO Last administered on 10/06/16 17:15; Admin Dose 10 MG; Start 10/06/16 at 01:00; Status Future Hold Linezolid (Zyvox 600mg/D5W (Pmx)) 300 ml @ 300 mls/hr Q12 IVPB Last administered on 10/29/16 09:02; Admin Dose 300 MLS/HR; Start 10/06/16 at 21:00 Levothyroxine Sodium (Synthroid Iv) 12.5 mcg DAILY@06 IV Last administered on 05:32; Admin Dose 12.5 MCG; Start 10/07/16 at 06:00 Metoclopramide HCl 5 mg 5 mg Q8 IV Last administered on 10/29/16 05:32; Admin Dose 5 MG; Start 10/06/16 at 22:00 Colistimethate Sodium/Sodium Chloride (Coly-Mycin/NS) 100 ml @ 200 mls/hr Q12 IVPB Last administered on 10/29/16 09:02; Admin Dose 200 MLS/HR; Start at 13:30 Lansoprazole (Prevacid) 30 mg BID@06,18 GTB Last administered on 10/29/16 05: 32; Admin Dose 30 MG; Start 10/21/16 at 18:00 IV Flush (NS 10 ml) 10 ml PRN PRN IV IV PROTOCOL; Start 10/22/16 at 14:30 Amiodarone HCl 400 mg 400 mg BID NGT Last administered on 10/29/16 09:04; Admin Dose 400 MG; Start 10/25/16 at 12:30 Norepinephrine 32 mg/Dextrose 250 ml @ 0.46 mls/hr TITRATE IV ; Start 10/29/16 at 08:00 Phenylephrine HCl/ Dextrose (Eulogio-Syneph/D5W) 250 ml @ 0 mls/hr TITRATE IV Last administered on 10/29/16 10:33; Admin Dose 9.37 MLS/HR; Start 10/29/16 at 08:00 MAGGIE DINERO MD Oct 29, 2016 11:10
[2016-10-29 12:14] LABS: AADO2 Arterial 104.8 mmHg (7.0-24.0); Allen Test ACCEPTAB; Arterial Base Excess -13.7 mmol/L (-3.0-3); Arterial COHb 0.3 % (0.0-3.0); Arterial Fraction of Oxyhgb 94.3 % (93.0-99.0); Arterial HCO3 11.2 mmol/L (22.0-26.0); Arterial MetHb 0.3 % (0.0-1.5); Arterial Total Hemglobin 10.5 g/dl (12.0-18.0); MODE VENT - AC
[2016-10-29] MEDS: SODIUM BICARBONATE (IV ADD) 100 MEQ in DEXTROSE 5% 900 ML IV SCH (12:18)
--- NOTE | 2016-10-29 13:53 | CONS ---
Date/Time of Note Date/Time of Note DATE: 10/29/16 TIME: 13:52 Assessment/Plan Assessment/Plan Additional Assessment/Plan Sepsis Preserved ejection fraction Moderate aortic stenosis Respiratory failure/Tracheostomy Coronary artery disease Anemia Paroxysmal atrial fibrillation rapid ventricular rates -Continue amiodarone as heart rate tolerates, will decrease dose. Antibiotics as per infectious disease. Maintain potassium above 4.0 and magnesium above 2.0. No AV darwin blocking agents at the current time given hypotension. Consultation Date/Type/Reason Admit Date/Time Sep 24, 2016 at 03:19 Initial Consult Date 09/24/16 Type of Consultation: cv Referring Provider: FELIX BLAKE DO 24 HR Interval Summary Free Text/Dictation Patient seen and examined, increased iv pressor requirements Exam/Review of Systems Vital Signs Vitals Vital Signs Date Time Temp Pulse Resp B/P Pulse Ox O2 Delivery O2 Flow Rate FiO2 10/29/16 12:30 112 30 94/71 99 10/29/16 12:00 Mechanical Ventilator 10/29/16 09:30 30 10/29/16 08:00 99.4 Intake and Output 10/28/16 10/28/16 10/29/16 15:00 23:00 07:00 Intake Total 1048 ml 1263 ml 741.5 ml Output Total 370 ml 380 ml 200 ml Balance 678 ml 883 ml 541.5 ml Exam Awake, no apparent distress Head: normocephalic Neck: other (Tracheostomy) Respiratory: other (Coarse breath sounds bilaterally, no wheezing) Cardiovascular: other (S1-S2 heard), regular rate and rhythm Gastrointestinal: bowel sounds, distended, other (No grimacing with palpation) , soft Extremities: edema Results Result Diagram: 10/29/16 0410 10/29/16 0410 Results 24 hrs Laboratory Tests Test 10/29/16 04:10 10/29/16 11:10 White Blood Count 19.6 H Red Blood Count 2.94 L Hemoglobin 8.0 L Hematocrit 26.6 L Mean Corpuscular Volume 90.5 Mean Corpuscular Hemoglobin 27.2 L Mean Corpuscular Hemoglobin Concent 30.1 L Red Cell Distribution Width 20.5 H Platelet Count 595 H Mean Platelet Volume 10.6 H Neutrophils % 66.7 Lymphocytes % 17.5 Monocytes % 10.5 Eosinophils % 4.2 Basophils % 0.3 Nucleated Red Blood Cells % 0.0 Neutrophils # 13.1 H Lymphocytes # 3.4 H Monocytes # 2.1 H Eosinophils # 0.8 H Basophils # 0.1 Nucleated Red Blood Cells # 0.0 Sodium Level 131 L Potassium Level 3.7 Chloride Level 111 H Carbon Dioxide Level 14 L Anion Gap 10 Blood Urea Nitrogen 26 H Creatinine 1.36 H Glucose Level 109 Calcium Level 6.5 L Blood Gas Specimen Source Blood arterial Arterial Blood Date Drawn 10/29/2016 11:50:08 AM Arterial Blood pH (Temp corrected) 7.293 *L Arterial Blood pCO2 (Temp correct) 23.7 L Arterial Blood pO2 (Temp corrected) 81.3 Arterial Blood HCO3 11.2 L Arterial Blood Base Excess -13.7 L Arterial Blood Oxygen Saturation 94.9 L Ki Test ACCEPTAB Arterial Blood Gas Puncture Site Right Radial Arterial Blood Carboxyhemoglobin 0.3 Arterial Blood Methemoglobin 0.3 Blood Gas A-a O2 Differential 104.8 H Oxyhemoglobin Percent 94.3 Total Hemoglobin 10.5 L Blood Gas Temperature 37.0 Blood Gas Respiration Rate 16.0 Blood Gas Actual Respiration Rate 25 Blood Gas Modality VENT - AC FiO2 30.0 Blood Gas Tidal Volume 500.0 Blood Gas Low PEEP Setting 5.0 Blood Gas Critical Value Read Back L JUAN DANIELSON Blood Gas Notified Whom JLD Blood Gas Notified Time 10/29/2016 12:14:37 PM Medications Medications Current Medications Acetaminophen (Tylenol Supp) 650 mg Q4H PRN [place] PAIN LEVEL 1-3 OR FEVER; Start 09/24/16 at 03:00 Eye Lubricant (Artificial Tears Oph) 1 drop TID BOTH EYES Last administered on 10/29/16 09:02; Admin Dose 1 DROP; Start 09/24/16 at 09:00 Sodium Hypochlorite (Dakin'S (1/4 Strength)) 1 applic BID IRR Last administered on 10/29/16 09:02; Admin Dose 1 APPLIC; Start 09/24/16 at 21:00 Collagenase (Santyl) 1 applic DAILY TOP Last administered on 10/29/16 09:04; Admin Dose 1 APPLIC; Start 09/24/16 at 20:30 Miscellaneous Information 1 ea NOTE XX ; Start 09/24/16 at 21:00 Glucose (Glutose) 15 gm Q15M PRN PO DECREASED GLUCOSE; Start 09/24/16 at 21:00 Glucose (Glutose) 22.5 gm Q15M PRN PO DECREASED GLUCOSE; Start 09/24/16 at 21: 00 Dextrose (D50w Syringe) 25 ml Q15M PRN IV DECREASED GLUCOSE; Start 09/24/16 at 21:00 Dextrose (D50w Syringe) 50 ml Q15M PRN IV DECREASED GLUCOSE; Start 09/24/16 at 21:00 Glucagon (Glucagen) 1 mg Q15M PRN IM DECREASED GLUCOSE; Start 09/24/16 at 21:00 Glucose (Glutose) 15 gm Q15M PRN BUCCAL DECREASED GLUCOSE; Start 09/24/16 at 21 :00 Vancomycin HCl (Vancomycin Oral Syringe) 250 mg Q6 PO Last administered on 17:15; Admin Dose 250 MG; Start 09/26/16 at 18:00; Status Future Hold Lactobacillus Acidoph/Bulgaricus (Floranex) 1 tab TID PO Last administered on 13:22; Admin Dose 1 TAB; Start 09/26/16 at 21:00; Status Future Hold Atorvastatin Calcium (Lipitor) 20 mg QHS GTB Last administered on 10/05/16 21: 42; Admin Dose 20 MG; Start 09/28/16 at 21:00; Status Future Hold Finasteride (Proscar) 5 mg DAILY GTB Last administered on 10/06/16 09:12; Admin Dose 5 MG; Start 09/29/16 at 09:00; Status Future Hold Multivitamins Therapeutic (Theragran) 1 tab DAILY GTB Last administered on 09:12; Admin Dose 1 TAB; Start 09/29/16 at 09:00; Status Future Hold Zinc Sulfate (Zinc Sulfate) 220 mg DAILY NGT Last administered on 10/06/16 09: 13; Admin Dose 220 MG; Start 09/29/16 at 09:00; Status Future Hold Ondansetron HCl (Zofran Inj) 4 mg Q6H PRN IV NAUSEA AND/OR VOMITING Last administered on 10/13/16 16:10; Admin Dose 4 MG; Start 09/29/16 at 07:30 Acetaminophen 650 mg 650 mg Q6H PRN GTB PAIN AND OR ELEVATED TEMP Last administered on 10/25/16 20:50; Admin Dose 650 MG; Start 10/02/16 at 08:00 Metronidazole (Flagyl 500 Mg (Pmx)) 100 ml @ 100 mls/hr Q8 IVPB Last administered on 10/29/16 13:41; Admin Dose 100 MLS/HR; Start 10/02/16 at 14:00 Midodrine 10 mg 10 mg TID@,, PO Last administered on 10/06/16 17:15; Admin Dose 10 MG; Start 10/06/16 at 01:00; Status Future Hold Linezolid (Zyvox 600mg/D5W (Pmx)) 300 ml @ 300 mls/hr Q12 IVPB Last administered on 10/29/16 09:02; Admin Dose 300 MLS/HR; Start 10/06/16 at 21:00 Levothyroxine Sodium (Synthroid Iv) 12.5 mcg DAILY@06 IV Last administered on 05:32; Admin Dose 12.5 MCG; Start 10/07/16 at 06:00 Metoclopramide HCl 5 mg 5 mg Q8 IV Last administered on 10/29/16 13:42; Admin Dose 5 MG; Start 10/06/16 at 22:00 Colistimethate Sodium/Sodium Chloride (Coly-Mycin/NS) 100 ml @ 200 mls/hr Q12 IVPB Last administered on 10/29/16 09:02; Admin Dose 200 MLS/HR; Start at 13:30 Lansoprazole (Prevacid) 30 mg BID@06,18 GTB Last administered on 10/29/16 05: 32; Admin Dose 30 MG; Start 10/21/16 at 18:00 IV Flush (NS 10 ml) 10 ml PRN PRN IV IV PROTOCOL; Start 10/22/16 at 14:30 Amiodarone HCl 400 mg 400 mg BID NGT Last administered on 10/29/16 09:04; Admin Dose 400 MG; Start 10/25/16 at 12:30 Norepinephrine 32 mg/Dextrose 250 ml @ 0.46 mls/hr TITRATE IV ; Start 10/29/16 at 08:00 Phenylephrine HCl 80 mg/Dextrose 250 ml @ 0 mls/hr TITRATE IV Last administered on 10/29/16 10:33; Admin Dose 9.37 MLS/HR; Start 10/29/16 at 08:00 Sodium Bicarbonate/ Dextrose (Na Bicarb/D5W) 1,000 ml @ 80 mls/hr [id number] IV Last administered on 10/29/16t 12:18; Admin Dose 80 MLS/HR; Start 10/29/16 at 12 :30 Ryder Wild DO Oct 29, 2016 13:53
[2016-10-29] MEDS: NORepinephrine 32 MG in DEXTROSE 5% 218 ML IV SCH (13:54)
--- NOTE | 2016-10-29 15:35 | PN ---
Date/Time of Note Date/Time of Note DATE: 10/29/16 TIME: 15:33 Assessment/Plan Lines/Catheters [facility] Line Cee in Place [facility] Yes Assessment/Plan Chief Complaint/Hosp Course 1. Shock, septic (uti, pna, wound). -Judicious fluid management -Supportive measures -Antibiotics 2. Multiple decubitus ulcerations with necrotic tissue and deep tissue injury -Offload -Local care -Vitamin C -Nutrition as possible -Debridement when medically cleared 3. Contracted state with functional quadriplegia -Offloading -Nutritional optimization when possible 4. Anemia -Monitor 5. Ventilator dependent respiratory failure -Ventilator management and pulmonary toilet 6. Renal insufficiency -Judicious fluid management -Avoid nephrotoxic agents 7. Coronary artery disease and history of non-ST elevation IN -Cardiac optimization 8. Thrombocytosis -medical optimization Thank you Problems: Subjective 24 Hr Interval Summary On pressors. Tachycardia. Fever. Leukocytosis. No chills. No cough. No seizure. No rash. No blood rectum. No bloating. No seizures. No pyuria. Exam/Review of Systems Vital Signs Vitals Vital Signs Date Time Temp Pulse Resp B/P Pulse Ox O2 Delivery O2 Flow Rate FiO2 10/29/16 14:30 106 28 81/57 97 10/29/16 14:00 Mechanical Ventilator 10/29/16 13:50 30 10/29/16 12:00 99.4 Intake and Output 10/28/16 10/28/16 10/29/16 15:00 23:00 07:00 Intake Total 1048 ml 1263 ml 741.5 ml Output Total 370 ml 380 ml 200 ml Balance 678 ml 883 ml 541.5 ml Exam Free Text/Dictation Constitutional: No alert, No oriented Psych: No nl mood/affect Head: atraumatic, normocephalic Eyes: nl conjunctiva, No EOMI, No icteric ENMT: mucosa pink and moist, nl external ears & nose Neck: jvd, other (Trach in place), No non-tender, No supple Respiratory: No congested cough, No labored breathing Cardiovascular: No regular rate and rhythm Gastrointestinal: non-tender, other (PEG in place), soft, No rebound or guarding Musculoskeletal: No joint tenderness, No nl extremities to inspection, No nl gait and stance Extremities: No calf tenderness, No cyanosis Neurological: No nl mental status, No nl speech, No nl strength Skin: rash or lesions (Multiple decubitus ulcerations with debris, necrotic tissue, deep tissue injury), No diaphoresis, No nl turgor Lymph: nontender Results Result Diagram: 10/29/16 0410 10/29/16 0410 EVA GUARDADO MD Oct 29, 2016 15:35
--- NOTE | 2016-10-29 15:40 | CONS ---
Date/Time of Note Date/Time of Note DATE: 10/29/16 TIME: 15:35 Assessment/Plan Assessment/Plan Chief Complaint/Hosp Course ID PROGRESS NOTE TOTAL ABX DAY # => Colistin. Zyvox Flagyl. s/p Voriconazole. RECENT EVENTS: 10/26/16 TNS back to ICU Rapid Response for Afib w/RVR (+)Low grade temps, WBC rising * CXR 10/26/16 with increased left pleural effusion and basilar atelectasis versus infiltrate. Unchanged small right pleural effusion with basilar atelectasis 24H INTERVAL SUMMARY => * Awake, eyes tracking, non-verbal, calm, looks comfortable on the Vent * Tachycardia 105, Tmax 99.4 * PICC line changed new PICC 10/22 * MICROBIOLOGY: Blood and urine cultures since 10/19/2016 negative. s/p Glabrata UTI 10/07/16 PHYSICAL EXAMINATION: GENERAL: Chronic ill, vented, contracted hands, generalized dependent edema HEENT: Unremarkable NECK: Trach -> Secure to Vent CHEST: Equal chest rise bilaterally, without dyspnea on observation HEART: Pulse RRR ABDOMEN: Soft/peg EXTREMITIES: Warm SKIN: See hard chart skin assessment= multiple decubs ID ASSESSMENT: 81 yo M w/PMHx CVA w/Dementia, contracted extremities, VDRF, Peg admit with: 1. Admited w/Severe sepsis with shock=> RESOLVED was up on TELE-> TNS back to ICU 10/26/16 for Afib W/RVR * s/p Status post Bacteroides fragilis and Escherichia coli bacteremia on admission/Escherichia coli urinary tract infection * PICC Line DC 10/21 -> New PICC 10/22 2. Afib w/RVR s/p Rapid Response TNS back to ICU 10/26/16 am = cards following HR 105 today 3. Healthcare-associated pneumonia. 4. Anemia w/concern for Probable GI bleed (Coffee ground drainage from G tube) 5. Multiple infected decubitus on admission w/necrosis and deep tissue injury= > Polymicrobial MDRO * Multiple wounds with left trochanteric osteomyelitis. 6. Persistent diarrhea, stool for Clostridium difficile negative. 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 7. Coronary artery disease and history of non-ST elevation LA 8. Renal insufficiency -> s/p ANGELICA resolved (+)MRSA Nares =>s/p Bactroban INVASIVES: Trach, Peg, Cee, Rectal Tube, PICC 10/22/2016. ABX ALLERGY: KNDA CURRENT ABX: => Colistin. Zyvox Flagyl s/p Voriconazole. ID RECOMMENDATIONS: 1. Continue current ABX => due to increase infiltrate on CXR 10/26/16 with recurrent sepsis 2. Remains on long-term IV ABX for multiple infected wounds including concern for osteomyelitis, not a surgical candidate . . . . . . . Problems: Consultation Date/Type/Reason Admit Date/Time Sep 24, 2016 at 03:19 Initial Consult Date 09/24/16 Type of Consultation: cv Referring Provider: FELIX BLAKE DO Exam/Review of Systems Vital Signs Vitals Vital Signs Date Time Temp Pulse Resp B/P Pulse Ox O2 Delivery O2 Flow Rate FiO2 10/29/16 14:30 106 28 81/57 97 10/29/16 14:00 Mechanical Ventilator 10/29/16 13:50 30 10/29/16 12:00 99.4 Intake and Output 10/28/16 10/28/16 10/29/16 14:59 22:59 06:59 Intake Total 1048 ml 1156 ml 833.5 ml Output Total 350 ml 400 ml 200 ml Balance 698 ml 756 ml 633.5 ml Results Result Diagram: 10/29/16 0410 10/29/16 0410 Results 24 hrs Laboratory Tests Test 10/29/16 04:10 10/29/16 11:10 White Blood Count 19.6 H Red Blood Count 2.94 L Hemoglobin 8.0 L Hematocrit 26.6 L Mean Corpuscular Volume 90.5 Mean Corpuscular Hemoglobin 27.2 L Mean Corpuscular Hemoglobin Concent 30.1 L Red Cell Distribution Width 20.5 H Platelet Count 595 H Mean Platelet Volume 10.6 H Neutrophils % 66.7 Lymphocytes % 17.5 Monocytes % 10.5 Eosinophils % 4.2 Basophils % 0.3 Nucleated Red Blood Cells % 0.0 Neutrophils # 13.1 H Lymphocytes # 3.4 H Monocytes # 2.1 H Eosinophils # 0.8 H Basophils # 0.1 Nucleated Red Blood Cells # 0.0 Sodium Level 131 L Potassium Level 3.7 Chloride Level 111 H Carbon Dioxide Level 14 L Anion Gap 10 Blood Urea Nitrogen 26 H Creatinine 1.36 H Glucose Level 109 Calcium Level 6.5 L Blood Gas Specimen Source Blood arterial Arterial Blood Date Drawn 10/29/2016 11:50:08 AM Arterial Blood pH (Temp corrected) 7.293 *L Arterial Blood pCO2 (Temp correct) 23.7 L Arterial Blood pO2 (Temp corrected) 81.3 Arterial Blood HCO3 11.2 L Arterial Blood Base Excess -13.7 L Arterial Blood Oxygen Saturation 94.9 L Ki Test ACCEPTAB Arterial Blood Gas Puncture Site Right Radial Arterial Blood Carboxyhemoglobin 0.3 Arterial Blood Methemoglobin 0.3 Blood Gas A-a O2 Differential 104.8 H Oxyhemoglobin Percent 94.3 Total Hemoglobin 10.5 L Blood Gas Temperature 37.0 Blood Gas Respiration Rate 16.0 Blood Gas Actual Respiration Rate 25 Blood Gas Modality VENT - AC FiO2 30.0 Blood Gas Tidal Volume 500.0 Blood Gas Low PEEP Setting 5.0 Blood Gas Critical Value Read Back L JUAN RN Blood Gas Notified Whom JLD Blood Gas Notified Time 10/29/2016 12:14:37 PM Medications Medications Current Medications Acetaminophen (Tylenol Supp) 650 mg Q4H PRN [place] PAIN LEVEL 1-3 OR FEVER; Start 09/24/16 at 03:00 Eye Lubricant (Artificial Tears Oph) 1 drop TID BOTH EYES Last administered on 10/29/16 09:02; Admin Dose 1 DROP; Start 09/24/16 at 09:00 Sodium Hypochlorite (Dakin'S (1/4 Strength)) 1 applic BID IRR Last administered on 10/29/16 09:02; Admin Dose 1 APPLIC; Start 09/24/16 at 21:00 Collagenase (Santyl) 1 applic DAILY TOP Last administered on 10/29/16 09:04; Admin Dose 1 APPLIC; Start 09/24/16 at 20:30 Miscellaneous Information 1 ea NOTE XX ; Start 09/24/16 at 21:00 Glucose (Glutose) 15 gm Q15M PRN PO DECREASED GLUCOSE; Start 09/24/16 at 21:00 Glucose (Glutose) 22.5 gm Q15M PRN PO DECREASED GLUCOSE; Start 09/24/16 at 21: 00 Dextrose (D50w Syringe) 25 ml Q15M PRN IV DECREASED GLUCOSE; Start 09/24/16 at 21:00 Dextrose (D50w Syringe) 50 ml Q15M PRN IV DECREASED GLUCOSE; Start 09/24/16 at 21:00 Glucagon (Glucagen) 1 mg Q15M PRN IM DECREASED GLUCOSE; Start 09/24/16 at 21:00 Glucose (Glutose) 15 gm Q15M PRN BUCCAL DECREASED GLUCOSE; Start 09/24/16 at 21 :00 Vancomycin HCl (Vancomycin Oral Syringe) 250 mg Q6 PO Last administered on 17:15; Admin Dose 250 MG; Start 09/26/16 at 18:00; Status Future Hold Lactobacillus Acidoph/Bulgaricus (Floranex) 1 tab TID PO Last administered on 13:22; Admin Dose 1 TAB; Start 09/26/16 at 21:00; Status Future Hold Atorvastatin Calcium (Lipitor) 20 mg QHS GTB Last administered on 10/05/16 21: 42; Admin Dose 20 MG; Start 09/28/16 at 21:00; Status Future Hold Finasteride (Proscar) 5 mg DAILY GTB Last administered on 10/06/16 09:12; Admin Dose 5 MG; Start 09/29/16 at 09:00; Status Future Hold Multivitamins Therapeutic (Theragran) 1 tab DAILY GTB Last administered on 09:12; Admin Dose 1 TAB; Start 09/29/16 at 09:00; Status Future Hold Zinc Sulfate (Zinc Sulfate) 220 mg DAILY NGT Last administered on 10/06/16 09: 13; Admin Dose 220 MG; Start 09/29/16 at 09:00; Status Future Hold Ondansetron HCl (Zofran Inj) 4 mg Q6H PRN IV NAUSEA AND/OR VOMITING Last administered on 10/13/16 16:10; Admin Dose 4 MG; Start 09/29/16 at 07:30 Acetaminophen 650 mg 650 mg Q6H PRN GTB PAIN AND OR ELEVATED TEMP Last administered on 10/25/16 20:50; Admin Dose 650 MG; Start 10/02/16 at 08:00 Metronidazole (Flagyl 500 Mg (Pmx)) 100 ml @ 100 mls/hr Q8 IVPB Last administered on 10/29/16 13:41; Admin Dose 100 MLS/HR; Start 10/02/16 at 14:00 Midodrine 10 mg 10 mg TID@,13,17 PO Last administered on 10/06/16 17:15; Admin Dose 10 MG; Start 10/06/16 at 01:00; Status Future Hold Linezolid (Zyvox 600mg/D5W (Pmx)) 300 ml @ 300 mls/hr Q12 IVPB Last administered on 10/29/16 09:02; Admin Dose 300 MLS/HR; Start 10/06/16 at 21:00 Levothyroxine Sodium (Synthroid Iv) 12.5 mcg DAILY@06 IV Last administered on 05:32; Admin Dose 12.5 MCG; Start 10/07/16 at 06:00 Metoclopramide HCl 5 mg 5 mg Q8 IV Last administered on 10/29/16 13:42; Admin Dose 5 MG; Start 10/06/16 at 22:00 Colistimethate Sodium/Sodium Chloride (Coly-Mycin/NS) 100 ml @ 200 mls/hr Q12 IVPB Last administered on 10/29/16 09:02; Admin Dose 200 MLS/HR; Start at 13:30 Lansoprazole (Prevacid) 30 mg BID@06,18 GTB Last administered on 10/29/16 05: 32; Admin Dose 30 MG; Start 10/21/16 at 18:00 IV Flush 10 ml 10 ml PRN PRN IV IV PROTOCOL; Start 10/22/16 at 14:30 Norepinephrine 32 mg/Dextrose 250 ml @ 0.46 mls/hr TITRATE IV Last administered on 10/29/16 13:54; Admin Dose 14.06 MLS/HR; Start 10/29/16 at 08: 00 Phenylephrine HCl 80 mg/Dextrose 250 ml @ 0 mls/hr TITRATE IV Last administered on 10/29/16 10:33; Admin Dose 9.37 MLS/HR; Start 10/29/16 at 08:00 Sodium Bicarbonate/ Dextrose (Na Bicarb/D5W) 1,000 ml @ 80 mls/hr [id number] IV Last administered on 10/29/16 12:18; Admin Dose 80 MLS/HR; Start 10/29/16 at 12 :30 Amiodarone HCl (Cordarone) 200 mg BID NGT ; Start 10/29/16 at 21:00 KUSHAL HOUSE NP Oct 29, 2016 15:40
--- NOTE | 2016-10-29 18:00 | PN ---
Date/Time of Note Date/Time of Note DATE: 10/29/16 TIME: 17:58 Assessment/Plan VTE Prophylaxis VTE Prophylaxis Intervention: SCD's Assessment/Plan Chief Complaint/Hosp Course (1) Atrial fibrillation with RVR-stable (2) Debility secondary to CVA in the past Patient has poor prognosis is chronically trached and has a PEG and has multiple decubitus ulcers at this time Continue wound care Continue PEG tube feeding (3) Septic shock secondary to multiple decubitus ulcers -Continue pressor support and antibiotics (4) Respiratory failure, chronic Continue vent support (5) Coronary artery disease-Stable Prophylaxis: SCDs Problems: Subjective 24 Hr Interval Summary Subjective hx not possible: pt non-verbal Exam/Review of Systems Vital Signs Vitals Vital Signs Date Time Temp Pulse Resp B/P Pulse Ox O2 Delivery O2 Flow Rate FiO2 10/29/16 17:15 102 27 89/56 99 10/29/16 17:00 Mechanical Ventilator 10/29/16 16:55 30 10/29/16 16:00 99.0 Intake and Output 10/28/16 10/28/16 10/29/16 15:00 23:00 07:00 Intake Total 1048 ml 1263 ml 741.5 ml Output Total 370 ml 380 ml 200 ml Balance 678 ml 883 ml 541.5 ml Exam Constitutional: non-verbal Respiratory: clear to auscultation Cardiovascular: regular rate and rhythm Gastrointestinal: soft, No distended Musculoskeletal: No nl extremities to inspection Results Result Diagram: 10/29/16 0410 10/29/16 0410 Results 24 hrs Laboratory Tests Test 10/29/16 04:10 10/29/16 11:10 White Blood Count 19.6 H Red Blood Count 2.94 L Hemoglobin 8.0 L Hematocrit 26.6 L Mean Corpuscular Volume 90.5 Mean Corpuscular Hemoglobin 27.2 L Mean Corpuscular Hemoglobin Concent 30.1 L Red Cell Distribution Width 20.5 H Platelet Count 595 H Mean Platelet Volume 10.6 H Neutrophils % 66.7 Lymphocytes % 17.5 Monocytes % 10.5 Eosinophils % 4.2 Basophils % 0.3 Nucleated Red Blood Cells % 0.0 Neutrophils # 13.1 H Lymphocytes # 3.4 H Monocytes # 2.1 H Eosinophils # 0.8 H Basophils # 0.1 Nucleated Red Blood Cells # 0.0 Sodium Level 131 L Potassium Level 3.7 Chloride Level 111 H Carbon Dioxide Level 14 L Anion Gap 10 Blood Urea Nitrogen 26 H Creatinine 1.36 H Glucose Level 109 Calcium Level 6.5 L Blood Gas Specimen Source Blood arterial Arterial Blood Date Drawn 10/29/2016 11:50:08 AM Arterial Blood pH (Temp corrected) 7.293 *L Arterial Blood pCO2 (Temp correct) 23.7 L Arterial Blood pO2 (Temp corrected) 81.3 Arterial Blood HCO3 11.2 L Arterial Blood Base Excess -13.7 L Arterial Blood Oxygen Saturation 94.9 L Ki Test ACCEPTAB Arterial Blood Gas Puncture Site Right Radial Arterial Blood Carboxyhemoglobin 0.3 Arterial Blood Methemoglobin 0.3 Blood Gas A-a O2 Differential 104.8 H Oxyhemoglobin Percent 94.3 Total Hemoglobin 10.5 L Blood Gas Temperature 37.0 Blood Gas Respiration Rate 16.0 Blood Gas Actual Respiration Rate 25 Blood Gas Modality VENT - AC FiO2 30.0 Blood Gas Tidal Volume 500.0 Blood Gas Low PEEP Setting 5.0 Blood Gas Critical Value Read Back L JUAN DANIELSON Blood Gas Notified Whom JLD Blood Gas Notified Time 10/29/2016 12:14:37 PM Medications Medications Current Medications Acetaminophen (Tylenol Supp) 650 mg Q4H PRN [place] PAIN LEVEL 1-3 OR FEVER; Start 09/24/16 at 03:00 Eye Lubricant (Artificial Tears Oph) 1 drop TID BOTH EYES Last administered on 10/29/16 09:02; Admin Dose 1 DROP; Start 09/24/16 at 09:00 Sodium Hypochlorite (Dakin'S (1/4 Strength)) 1 applic BID IRR Last administered on 10/29/16 09:02; Admin Dose 1 APPLIC; Start 09/24/16 at 21:00 Collagenase (Santyl) 1 applic DAILY TOP Last administered on 10/29/16 09:04; Admin Dose 1 APPLIC; Start 09/24/16 at 20:30 Miscellaneous Information 1 ea NOTE XX ; Start 09/24/16 at 21:00 Glucose (Glutose) 15 gm Q15M PRN PO DECREASED GLUCOSE; Start 09/24/16 at 21:00 Glucose (Glutose) 22.5 gm Q15M PRN PO DECREASED GLUCOSE; Start 09/24/16 at 21: 00 Dextrose (D50w Syringe) 25 ml Q15M PRN IV DECREASED GLUCOSE; Start 09/24/16 at 21:00 Dextrose (D50w Syringe) 50 ml Q15M PRN IV DECREASED GLUCOSE; Start 09/24/16 at 21:00 Glucagon (Glucagen) 1 mg Q15M PRN IM DECREASED GLUCOSE; Start 09/24/16 at 21:00 Glucose (Glutose) 15 gm Q15M PRN BUCCAL DECREASED GLUCOSE; Start 09/24/16 at 21 :00 Vancomycin HCl (Vancomycin Oral Syringe) 250 mg Q6 PO Last administered on 17:15; Admin Dose 250 MG; Start 09/26/16 at 18:00; Status Future Hold Lactobacillus Acidoph/Bulgaricus (Floranex) 1 tab TID PO Last administered on 13:22; Admin Dose 1 TAB; Start 09/26/16 at 21:00; Status Future Hold Atorvastatin Calcium (Lipitor) 20 mg QHS GTB Last administered on 10/05/16 21: 42; Admin Dose 20 MG; Start 09/28/16 at 21:00; Status Future Hold Finasteride (Proscar) 5 mg DAILY GTB Last administered on 10/06/16 09:12; Admin Dose 5 MG; Start 09/29/16 at 09:00; Status Future Hold Multivitamins Therapeutic (Theragran) 1 tab DAILY GTB Last administered on 09:12; Admin Dose 1 TAB; Start 09/29/16 at 09:00; Status Future Hold Zinc Sulfate (Zinc Sulfate) 220 mg DAILY NGT Last administered on 10/06/16 09: 13; Admin Dose 220 MG; Start 09/29/16 at 09:00; Status Future Hold Ondansetron HCl (Zofran Inj) 4 mg Q6H PRN IV NAUSEA AND/OR VOMITING Last administered on 10/13/16 16:10; Admin Dose 4 MG; Start 09/29/16 at 07:30 Acetaminophen 650 mg 650 mg Q6H PRN GTB PAIN AND OR ELEVATED TEMP Last administered on 10/25/16 20:50; Admin Dose 650 MG; Start 10/02/16 at 08:00 Metronidazole (Flagyl 500 Mg (Pmx)) 100 ml @ 100 mls/hr Q8 IVPB Last administered on 10/29/16 13:41; Admin Dose 100 MLS/HR; Start 10/02/16 at 14:00 Midodrine 10 mg 10 mg TID@,, PO Last administered on 10/06/16 17:15; Admin Dose 10 MG; Start 10/06/16 at 01:00; Status Future Hold Linezolid (Zyvox 600mg/D5W (Pmx)) 300 ml @ 300 mls/hr Q12 IVPB Last administered on 10/29/16 09:02; Admin Dose 300 MLS/HR; Start 10/06/16 at 21:00 Levothyroxine Sodium (Synthroid Iv) 12.5 mcg DAILY@06 IV Last administered on 05:32; Admin Dose 12.5 MCG; Start 10/07/16 at 06:00 Metoclopramide HCl 5 mg 5 mg Q8 IV Last administered on 10/29/16 13:42; Admin Dose 5 MG; Start 10/06/16 at 22:00 Colistimethate Sodium/Sodium Chloride (Coly-Mycin/NS) 100 ml @ 200 mls/hr Q12 IVPB Last administered on 10/29/16 09:02; Admin Dose 200 MLS/HR; Start at 13:30 Lansoprazole (Prevacid) 30 mg BID@06,18 GTB Last administered on 10/29/16 05: 32; Admin Dose 30 MG; Start 10/21/16 at 18:00 IV Flush 10 ml 10 ml PRN PRN IV IV PROTOCOL; Start 10/22/16 at 14:30 Norepinephrine 32 mg/Dextrose 250 ml @ 0.46 mls/hr TITRATE IV Last administered on 10/29/16 13:54; Admin Dose 14.06 MLS/HR; Start 10/29/16 at 08: 00 Phenylephrine HCl 80 mg/Dextrose 250 ml @ 0 mls/hr TITRATE IV Last administered on 10/29/16 10:33; Admin Dose 9.37 MLS/HR; Start 10/29/16 at 08:00 Sodium Bicarbonate/ Dextrose (Na Bicarb/D5W) 1,000 ml @ 80 mls/hr [id number] IV Last administered on 10/29/16 12:18; Admin Dose 80 MLS/HR; Start 10/29/16 at 12 :30 Amiodarone HCl (Cordarone) 200 mg BID NGT ; Start 10/29/16 at 21:00 KEVYN GARNETT Oct 29, 2016 18:00
[2016-10-30] VITALS (102 sets, daily range): BP systolic 71–107; BP diastolic 50–78; PULSE 73–125; RESP 17–36
[2016-10-30] MEDS: IPRATROPIUM (HFA) 12.9 GM INHALER INH SCH ×4 (02:08→19:59)
[2016-10-30] MEDS: ALBUTEROL 18 GM INHALER INH SCH ×4 (02:08→19:59)
[2016-10-30] MEDS: SODIUM BICARBONATE (IV ADD) 100 MEQ in DEXTROSE 5% 900 ML IV SCH ×2 (02:57→14:59)
[2016-10-30 05:31] LABS: ADD SCAN DIFF NO
[2016-10-30 05:36] LABS: ABNORMAL IP MESSAGE 1; BASOPHIL # 0.1 10^3/ul (0.0-0.1); BASOPHILS % 0.4 % (0.0-2.0); EOSINOPHILS % 4.9 % (0.0-7.0); HEMOGLOBIN 8.3 g/dl (14.0-18.0); LYMPHOCYTES # 2.6 10^3/ul (0.8-2.9); LYMPHOCYTES % 12.8 % (15.0-51.0); MEAN CORPUSCULAR HEMOGLOBIN 27.9 pg (29.0-33.0); MEAN CORPUSCULAR HGB CONC 30.7 g/dl (32.0-37.0); MEAN CORPUSCULAR VOLUME 90.9 fl (82.0-101.0); MEAN PLATELET VOLUME 10.5 fl (7.4-10.4); MONOCYTE # 2.3 10^3/ul (0.3-0.9); MONOCYTES % 10.9 % (0.0-11.0); NEUTROPHIL # 14.4 10^3/ul (1.6-7.5); NEUTROPHILS % 69.9 % (39.0-77.0); PLATELET COUNT 628 10^3/UL (140-415); RED BLOOD COUNT 2.97 10^6/ul (4.70-6.10); WHITE BLOOD COUNT 20.7 10^3/ul (4.8-10.8)
[2016-10-30 06:01] LABS: POTASSIUM 3.6 mmol/L (3.5-5.1)
[2016-10-30 06:03] LABS: CREATININE 1.67 mg/dl (0.61-1.24)
[2016-10-30] MEDS: LEVOTHYROXINE 100 MCG VIAL IV SCH (06:26)
[2016-10-30] MEDS: metroNIDAZOLE 500 MG/NS (PMX) 100 ML IVPB SCH ×3 (06:26→22:06)
[2016-10-30] MEDS: LANSOPRAZOLE 30 MG CAP GTB SCH ×2 (06:26→18:19)
[2016-10-30] MEDS: METOCLOPRAMIDE 10 MG INJ IV SCH ×3 (06:26→21:04)
[2016-10-30] MEDS: AMIODARONE 200 MG TAB NGT SCH (08:40)
[2016-10-30] MEDS: LINEZOLID 600 MG/D5W (PMX) 300 ML IVPB SCH ×2 (08:42→21:02)
[2016-10-30] MEDS: COLISTIMETHATE 75 MG in SOD CHLORIDE 0.9% 100 ML IVPB SCH ×2 (08:42→20:30)
[2016-10-30] MEDS: COLLAGENASE 30 GM TUBE TOP SCH (08:43)
[2016-10-30] MEDS: SODIUM HYPOCHLORITE 0.125% 473 ML BTL IRR SCH ×2 (08:43→20:29)
[2016-10-30] MEDS: ARTIFICIAL TEARS 15 ML OPH BOTH EYES SCH ×3 (08:44→21:00)
[2016-10-30] MEDS: NORepinephrine 32 MG in DEXTROSE 5% 218 ML IV SCH (08:45)
[2016-10-30] MEDS: PHENYLephrine 80 MG in DEXTROSE 5% 242 ML IV SCH (08:46)
--- NOTE | 2016-10-30 11:03 | CONS ---
Date/Time of Note Date/Time of Note DATE: 10/30/16 TIME: 11:01 Assessment/Plan Assessment/Plan Additional Assessment/Plan Ventilator settings; AC of 16, tidal volume 500, PEEP of 5, 30% FiO2. Patient currently on Levophed at 20 mics per minute, phenylephrine drip at 50 mics per minute. Assessment recommendations; 1. Patient admitted for severe sepsis due to multiple sacral decubitus ulcers. 2. Left lower lobe pneumonia. 3. Anemia. 4. Advanced multi-infarct dementia, patient remains ventilator dependent. 5. History of BPH. 6. History of hypothyroidism. 7. Renal insufficiency. 8. Severe hypotension. Continue current supportive care. Prognosis is dismal. 35 minutes of critical care time was spent evaluating the patient. Consultation Date/Type/Reason Admit Date/Time Sep 24, 2016 at 03:19 Initial Consult Date 09/24/16 Type of Consultation: Pulmonary/critical care Referring Provider: FELIX BLAKE DO 24 HR Interval Summary Free Text/Dictation Patient condition remains critical. Requiring high-dose Levophed for blood pressure maintenance as well as phenylephrine drip. Remains unresponsive. General exam; elderly male, on ventilator via tracheostomy unresponsive. Currently in no distress. Exam/Review of Systems Vital Signs Vitals Vital Signs Date Time Temp Pulse Resp B/P Pulse Ox O2 Delivery O2 Flow Rate FiO2 10/30/16 10:30 102 28 90/68 100 10/30/16 10:00 Mechanical Ventilator 10/30/16 09:16 30 10/30/16 08:00 97.9 Intake and Output 10/29/16 10/29/16 10/30/16 15:00 23:00 07:00 Intake Total 1094 ml 1405.85 ml 1306.96 ml Output Total 230 ml 460 ml 245 ml Balance 864 ml 945.85 ml 1061.96 ml Exam HEENT examination; supple neck, no JVD. No lymphadenopathy. Midline trachea. No thyromegaly. Multiple carious teeth. Pupils are small bilaterally. Tracheostomy in place with clean insertion site. Chest examination; diminished but clear breath sounds. S1-S2 audible, no murmurs. Regular rhythm. Abdomen examination; soft, G-tube in place. No organomegaly. Bowel sounds audible. Back examination ; dressing applied over sacrum. Extremity exam; no peripheral edema. Patient has contractures involving all 4 extremities. FLAME HARDENER examination; patient remains unresponsive. Results Result Diagram: 10/30/160 10/30/16 0400 Results 24 hrs Laboratory Tests Test 10/29/16 11:10 10/30/16 04:00 Blood Gas Specimen Source Blood arterial Arterial Blood Date Drawn 10/29/2016 11:50:08 AM Arterial Blood pH (Temp corrected) 7.293 *L Arterial Blood pCO2 (Temp correct) 23.7 L Arterial Blood pO2 (Temp corrected) 81.3 Arterial Blood HCO3 11.2 L Arterial Blood Base Excess -13.7 L Arterial Blood Oxygen Saturation 94.9 L Ki Test ACCEPTAB Arterial Blood Gas Puncture Site Right Radial Arterial Blood Carboxyhemoglobin 0.3 Arterial Blood Methemoglobin 0.3 Blood Gas A-a O2 Differential 104.8 H Oxyhemoglobin Percent 94.3 Total Hemoglobin 10.5 L Blood Gas Temperature 37.0 Blood Gas Respiration Rate 16.0 Blood Gas Actual Respiration Rate 25 Blood Gas Modality VENT - AC FiO2 30.0 Blood Gas Tidal Volume 500.0 Blood Gas Low PEEP Setting 5.0 Blood Gas Critical Value Read Back L JUAN DANIELSON Blood Gas Notified Whom JLD Blood Gas Notified Time 10/29/2016 12:14:37 PM White Blood Count 20.7 H Red Blood Count 2.97 L Hemoglobin 8.3 L Hematocrit 27.0 L Mean Corpuscular Volume 90.9 Mean Corpuscular Hemoglobin 27.9 L Mean Corpuscular Hemoglobin Concent 30.7 L Red Cell Distribution Width 21.0 H Platelet Count 628 H Mean Platelet Volume 10.5 H Neutrophils % 69.9 Lymphocytes % 12.8 L Monocytes % 10.9 Eosinophils % 4.9 Basophils % 0.4 Nucleated Red Blood Cells % 0.0 Neutrophils # 14.4 H Lymphocytes # 2.6 Monocytes # 2.3 H Eosinophils # 1.0 H Basophils # 0.1 Nucleated Red Blood Cells # 0.0 Sodium Level 131 L Potassium Level 3.6 Chloride Level 102 Carbon Dioxide Level 14 L Anion Gap 19 #H Blood Urea Nitrogen 29 H Creatinine 1.67 H Glucose Level 129 Calcium Level 7.0 L Medications Medications Current Medications Acetaminophen (Tylenol Supp) 650 mg Q4H PRN [place] PAIN LEVEL 1-3 OR FEVER; Start 09/24/16 at 03:00 Eye Lubricant (Artificial Tears Oph) 1 drop TID BOTH EYES Last administered on 10/29/16t 13:00; Admin Dose 1 DROP; Start 09/24/16 at 09:00 Sodium Hypochlorite (Dakin'S (1/4 Strength)) 1 applic BID IRR Last administered on 10/30/16 08:43; Admin Dose 1 APPLIC; Start 09/24/16 at 21:00 Collagenase (Santyl) 1 applic DAILY TOP Last administered on 10/30/16 08:43; Admin Dose 1 APPLIC; Start 09/24/16 at 20:30 Miscellaneous Information 1 ea NOTE XX ; Start 09/24/16 at 21:00 Glucose (Glutose) 15 gm Q15M PRN PO DECREASED GLUCOSE; Start 09/24/16 at 21:00 Glucose (Glutose) 22.5 gm Q15M PRN PO DECREASED GLUCOSE; Start 09/24/16 at 21: 00 Dextrose (D50w Syringe) 25 ml Q15M PRN IV DECREASED GLUCOSE; Start 09/24/16 at 21:00 Dextrose (D50w Syringe) 50 ml Q15M PRN IV DECREASED GLUCOSE; Start 09/24/16 at 21:00 Glucagon (Glucagen) 1 mg Q15M PRN IM DECREASED GLUCOSE; Start 09/24/16 at 21:00 Glucose (Glutose) 15 gm Q15M PRN BUCCAL DECREASED GLUCOSE; Start 09/24/16 at 21 :00 Vancomycin HCl (Vancomycin Oral Syringe) 250 mg Q6 PO Last administered on 17:15; Admin Dose 250 MG; Start 09/26/16 at 18:00; Status Future Hold Lactobacillus Acidoph/Bulgaricus (Floranex) 1 tab TID PO Last administered on 13:22; Admin Dose 1 TAB; Start 09/26/16 at 21:00; Status Future Hold Atorvastatin Calcium (Lipitor) 20 mg QHS GTB Last administered on 10/05/16 21: 42; Admin Dose 20 MG; Start 09/28/16 at 21:00; Status Future Hold Finasteride (Proscar) 5 mg DAILY GTB Last administered on 10/06/16 09:12; Admin Dose 5 MG; Start 09/29/16 at 09:00; Status Future Hold Multivitamins Therapeutic (Theragran) 1 tab DAILY GTB Last administered on 09:12; Admin Dose 1 TAB; Start 09/29/16 at 09:00; Status Future Hold Zinc Sulfate (Zinc Sulfate) 220 mg DAILY NGT Last administered on 10/06/16 09: 13; Admin Dose 220 MG; Start 09/29/16 at 09:00; Status Future Hold Ondansetron HCl (Zofran Inj) 4 mg Q6H PRN IV NAUSEA AND/OR VOMITING Last administered on 10/13/16 16:10; Admin Dose 4 MG; Start 09/29/16 at 07:30 Acetaminophen 650 mg 650 mg Q6H PRN GTB PAIN AND OR ELEVATED TEMP Last administered on 10/25/16 20:50; Admin Dose 650 MG; Start 10/02/16 at 08:00 Metronidazole (Flagyl 500 Mg (Pmx)) 100 ml @ 100 mls/hr Q8 IVPB Last administered on 10/30/16 06:26; Admin Dose 100 MLS/HR; Start 10/02/16 at 14:00 Midodrine 10 mg 10 mg TID@, PO Last administered on 10/06/16 17:15; Admin Dose 10 MG; Start 10/06/16 at 01:00; Status Future Hold Linezolid (Zyvox 600mg/D5W (Pmx)) 300 ml @ 300 mls/hr Q12 IVPB Last administered on 10/30/16 08:42; Admin Dose 300 MLS/HR; Start 10/06/16 at 21:00 Levothyroxine Sodium (Synthroid Iv) 12.5 mcg DAILY@06 IV Last administered on 06:26; Admin Dose 12.5 MCG; Start 10/07/16 at 06:00 Metoclopramide HCl 5 mg 5 mg Q8 IV Last administered on 10/30/16 06:26; Admin Dose 5 MG; Start 10/06/16 at 22:00 Colistimethate Sodium/Sodium Chloride (Coly-Mycin/NS) 100 ml @ 200 mls/hr Q12 IVPB Last administered on 10/30/16 08:42; Admin Dose 200 MLS/HR; Start at 13:30 Lansoprazole (Prevacid) 30 mg BID@06,18 GTB Last administered on 10/30/16 06: 26; Admin Dose 30 MG; Start 10/21/16 at 18:00 IV Flush 10 ml 10 ml PRN PRN IV IV PROTOCOL; Start 10/22/16 at 14:30 Norepinephrine 32 mg/Dextrose 250 ml @ 0.46 mls/hr TITRATE IV Last administered on 10/30/16 08:45; Admin Dose 14.06 MLS/HR; Start 10/29/16 at 08: 00 Phenylephrine HCl 80 mg/Dextrose 250 ml @ 0 mls/hr TITRATE IV Last administered on 10/30/16 08:46; Admin Dose 9.37 MLS/HR; Start 10/29/16 at 08:00 Sodium Bicarbonate/ Dextrose (Na Bicarb/D5W) 1,000 ml @ 80 mls/hr [id number] IV Last administered on 10/30/16 02:57; Admin Dose 80 MLS/HR; Start 10/29/16 at 12 :30 Amiodarone HCl (Cordarone) 200 mg BID NGT Last administered on 10/29/16 21:15 ; Admin Dose 200 MG; Start 10/29/16 at 21:00 MAIN SALTER Oct 30, 2016 11:03
--- NOTE | 2016-10-30 12:58 | CONS ---
Date/Time of Note Date/Time of Note DATE: 10/30/16 TIME: 12:57 Assessment/Plan Assessment/Plan Additional Assessment/Plan Sepsis Preserved ejection fraction Moderate aortic stenosis Respiratory failure/Tracheostomy Coronary artery disease Anemia Paroxysmal atrial fibrillation rapid ventricular rates -Continue amiodarone as heart rate tolerates. Antibiotics as per infectious disease. Maintain potassium above 4.0 and magnesium above 2.0. No AV darwin blocking agents at the current time given hypotension. IV pressor to maintain SBP greater than 90 and/or map above 60 Consultation Date/Type/Reason Admit Date/Time Sep 24, 2016 at 03:19 Initial Consult Date 09/24/16 Type of Consultation: cv Referring Provider: FELIX BLAKE DO 24 HR Interval Summary Free Text/Dictation Patient seen and examined, no new cardiac issues as per nursing staff Exam/Review of Systems Vital Signs Vitals Vital Signs Date Time Temp Pulse Resp B/P Pulse Ox O2 Delivery O2 Flow Rate FiO2 10/30/16 11:09 104 31 100 30 10/30/16 10:30 90/68 10/30/16 10:00 Mechanical Ventilator 10/30/16 08:00 97.9 Intake and Output 10/29/16 10/29/16 10/30/16 15:00 23:00 07:00 Intake Total 1094 ml 1405.85 ml 1306.96 ml Output Total 230 ml 460 ml 245 ml Balance 864 ml 945.85 ml 1061.96 ml Exam No apparent distress Constitutional: alert Head: normocephalic Neck: other (Tracheostomy) Respiratory: other (Coarse breath sounds bilaterally, no wheezing) Cardiovascular: other (S1-S2 heard), regular rate and rhythm Gastrointestinal: bowel sounds, distended, soft Extremities: edema Results Result Diagram: 10/30/16 0400 10/30/16 0400 Results 24 hrs Laboratory Tests Test 10/30/16 04:00 White Blood Count 20.7 H Red Blood Count 2.97 L Hemoglobin 8.3 L Hematocrit 27.0 L Mean Corpuscular Volume 90.9 Mean Corpuscular Hemoglobin 27.9 L Mean Corpuscular Hemoglobin Concent 30.7 L Red Cell Distribution Width 21.0 H Platelet Count 628 H Mean Platelet Volume 10.5 H Neutrophils % 69.9 Lymphocytes % 12.8 L Monocytes % 10.9 Eosinophils % 4.9 Basophils % 0.4 Nucleated Red Blood Cells % 0.0 Neutrophils # 14.4 H Lymphocytes # 2.6 Monocytes # 2.3 H Eosinophils # 1.0 H Basophils # 0.1 Nucleated Red Blood Cells # 0.0 Sodium Level 131 L Potassium Level 3.6 Chloride Level 102 Carbon Dioxide Level 14 L Anion Gap 19 #H Blood Urea Nitrogen 29 H Creatinine 1.67 H Glucose Level 129 Calcium Level 7.0 L Medications Medications Current Medications Acetaminophen (Tylenol Supp) 650 mg Q4H PRN [place] PAIN LEVEL 1-3 OR FEVER; Start 09/24/16 at 03:00 Eye Lubricant (Artificial Tears Oph) 1 drop TID BOTH EYES Last administered on 10/29/16 13:00; Admin Dose 1 DROP; Start 09/24/16 at 09:00 Sodium Hypochlorite (Dakin'S (1/4 Strength)) 1 applic BID IRR Last administered on 10/30/16 08:43; Admin Dose 1 APPLIC; Start 09/24/16 at 21:00 Collagenase (Santyl) 1 applic DAILY TOP Last administered on 10/30/16 08:43; Admin Dose 1 APPLIC; Start 09/24/16 at 20:30 Miscellaneous Information 1 ea NOTE XX ; Start 09/24/16 at 21:00 Glucose (Glutose) 15 gm Q15M PRN PO DECREASED GLUCOSE; Start 09/24/16 at 21:00 Glucose (Glutose) 22.5 gm Q15M PRN PO DECREASED GLUCOSE; Start 09/24/16 at 21: 00 Dextrose (D50w Syringe) 25 ml Q15M PRN IV DECREASED GLUCOSE; Start 09/24/16 at 21:00 Dextrose (D50w Syringe) 50 ml Q15M PRN IV DECREASED GLUCOSE; Start 09/24/16 at 21:00 Glucagon (Glucagen) 1 mg Q15M PRN IM DECREASED GLUCOSE; Start 09/24/16 at 21:00 Glucose (Glutose) 15 gm Q15M PRN BUCCAL DECREASED GLUCOSE; Start 09/24/16 at 21 :00 Vancomycin HCl (Vancomycin Oral Syringe) 250 mg Q6 PO Last administered on 17:15; Admin Dose 250 MG; Start 09/26/16 at 18:00; Status Future Hold Lactobacillus Acidoph/Bulgaricus (Floranex) 1 tab TID PO Last administered on 13:22; Admin Dose 1 TAB; Start 09/26/16 at 21:00; Status Future Hold Atorvastatin Calcium (Lipitor) 20 mg QHS GTB Last administered on 10/05/16 21: 42; Admin Dose 20 MG; Start 09/28/16 at 21:00; Status Future Hold Finasteride (Proscar) 5 mg DAILY GTB Last administered on 10/06/16 09:12; Admin Dose 5 MG; Start 09/29/16 at 09:00; Status Future Hold Multivitamins Therapeutic (Theragran) 1 tab DAILY GTB Last administered on 09:12; Admin Dose 1 TAB; Start 09/29/16 at 09:00; Status Future Hold Zinc Sulfate (Zinc Sulfate) 220 mg DAILY NGT Last administered on 10/06/16 09: 13; Admin Dose 220 MG; Start 09/29/16 at 09:00; Status Future Hold Ondansetron HCl (Zofran Inj) 4 mg Q6H PRN IV NAUSEA AND/OR VOMITING Last administered on 10/13/16 16:10; Admin Dose 4 MG; Start 09/29/16 at 07:30 Acetaminophen 650 mg 650 mg Q6H PRN GTB PAIN AND OR ELEVATED TEMP Last administered on 10/25/16 20:50; Admin Dose 650 MG; Start 10/02/16 at 08:00 Metronidazole (Flagyl 500 Mg (Pmx)) 100 ml @ 100 mls/hr Q8 IVPB Last administered on 10/30/16 06:26; Admin Dose 100 MLS/HR; Start 10/02/16 at 14:00 Midodrine 10 mg 10 mg TID@,,17 PO Last administered on 10/06/16 17:15; Admin Dose 10 MG; Start 10/06/16 at 01:00; Status Future Hold Linezolid (Zyvox 600mg/D5W (Pmx)) 300 ml @ 300 mls/hr Q12 IVPB Last administered on 10/30/16 08:42; Admin Dose 300 MLS/HR; Start 10/06/16 at 21:00 Levothyroxine Sodium (Synthroid Iv) 12.5 mcg DAILY@06 IV Last administered on 06:26; Admin Dose 12.5 MCG; Start 10/07/16 at 06:00 Metoclopramide HCl 5 mg 5 mg Q8 IV Last administered on 10/30/16 06:26; Admin Dose 5 MG; Start 10/06/16 at 22:00 Colistimethate Sodium/Sodium Chloride (Coly-Mycin/NS) 100 ml @ 200 mls/hr Q12 IVPB Last administered on 10/30/16 08:42; Admin Dose 200 MLS/HR; Start at 13:30 Lansoprazole (Prevacid) 30 mg BID@06,18 GTB Last administered on 10/30/16 06: 26; Admin Dose 30 MG; Start 10/21/16 at 18:00 IV Flush 10 ml 10 ml PRN PRN IV IV PROTOCOL; Start 10/22/16 at 14:30 Norepinephrine 32 mg/Dextrose 250 ml @ 0.46 mls/hr TITRATE IV Last administered on 10/30/16 08:45; Admin Dose 14.06 MLS/HR; Start 10/29/16 at 08: 00 Phenylephrine HCl 80 mg/Dextrose 250 ml @ 0 mls/hr TITRATE IV Last administered on 10/30/16 08:46; Admin Dose 9.37 MLS/HR; Start 10/29/16 at 08:00 Sodium Bicarbonate/ Dextrose (Na Bicarb/D5W) 1,000 ml @ 80 mls/hr [id number] IV Last administered on 10/30/16 02:57; Admin Dose 80 MLS/HR; Start 10/29/16 at 12 :30 Amiodarone HCl (Cordarone) 200 mg BID NGT Last administered on 10/29/16 21:15 ; Admin Dose 200 MG; Start 10/29/16 at 21:00 Ryder Wild DO Oct 30, 2016 12:58
--- NOTE | 2016-10-30 14:12 | CONS ---
Date/Time of Note Date/Time of Note DATE: 10/30/16 TIME: 14:09 Assessment/Plan Assessment/Plan Additional Assessment/Plan 1. Non Oliguric Acute kidney injury on chronic kidney disease. due to ATN from septic shock 2. septic shock on levophed 3. severe metabolic acidosis with HCo3 14 today 4. acute on chronic respiratory failure, status post tracheostomy, on ventilator. 6. History of G-tube. 7. Poor mental status due to the previous cerebrovascular accident. 8. History of dementia. 9. History of hypertension. PLAN: Cr 1.67, Na 131, BP labile, on ventilator - on bicarnonate drip , still HCO3 low , will continue it for now BP labile on pressors continue ventilator care will continue to follow up on patient Consultation Date/Type/Reason Admit Date/Time Sep 24, 2016 at 03:19 Initial Consult Date 09/24/16 Type of Consultation: NEPHROLOGY Reason for Consultation Hyponatremia, ANGELICA Referring Provider: FELIX BLAKE DO 24 HR Interval Summary Free Text/Dictation Cr 1.67, Na 131, BP labile, on ventilator Exam/Review of Systems Vital Signs Vitals Vital Signs Date Time Temp Pulse Resp B/P Pulse Ox O2 Delivery O2 Flow Rate FiO2 10/30/16 13:41 101 33 100 30 10/30/16 10:30 90/68 10/30/16 10:00 Mechanical Ventilator 10/30/16 08:00 97.9 Intake and Output 10/29/16 10/29/16 10/30/16 15:00 23:00 07:00 Intake Total 1094 ml 1405.85 ml 1306.96 ml Output Total 230 ml 460 ml 245 ml Balance 864 ml 945.85 ml 1061.96 ml Exam GENERAL: Chronic ill, vented, contracted hands, generalized dependent edema HEENT: Unremarkable NECK: Trach -> Secure to Vent CHEST: Equal chest rise bilaterally, without dyspnea on observation HEART: Pulse RRR ABDOMEN: Soft/peg EXTREMITIES: Warm SKIN: See hard chart skin assessment= multiple decubs Results Result Diagram: 10/30/16 0400 10/30/16 0400 Results 24 hrs Laboratory Tests Test 10/30/16 04:00 White Blood Count 20.7 H Red Blood Count 2.97 L Hemoglobin 8.3 L Hematocrit 27.0 L Mean Corpuscular Volume 90.9 Mean Corpuscular Hemoglobin 27.9 L Mean Corpuscular Hemoglobin Concent 30.7 L Red Cell Distribution Width 21.0 H Platelet Count 628 H Mean Platelet Volume 10.5 H Neutrophils % 69.9 Lymphocytes % 12.8 L Monocytes % 10.9 Eosinophils % 4.9 Basophils % 0.4 Nucleated Red Blood Cells % 0.0 Neutrophils # 14.4 H Lymphocytes # 2.6 Monocytes # 2.3 H Eosinophils # 1.0 H Basophils # 0.1 Nucleated Red Blood Cells # 0.0 Sodium Level 131 L Potassium Level 3.6 Chloride Level 102 Carbon Dioxide Level 14 L Anion Gap 19 #H Blood Urea Nitrogen 29 H Creatinine 1.67 H Glucose Level 129 Calcium Level 7.0 L Medications Medications Current Medications Acetaminophen (Tylenol Supp) 650 mg Q4H PRN [place] PAIN LEVEL 1-3 OR FEVER; Start 09/24/16 at 03:00 Eye Lubricant (Artificial Tears Oph) 1 drop TID BOTH EYES Last administered on 10/30/16 13:45; Admin Dose 1 DROP; Start 09/24/16 at 09:00 Sodium Hypochlorite (Dakin'S (1/4 Strength)) 1 applic BID IRR Last administered on 10/30/16 08:43; Admin Dose 1 APPLIC; Start 09/24/16 at 21:00 Collagenase (Santyl) 1 applic DAILY TOP Last administered on 10/30/16 08:43; Admin Dose 1 APPLIC; Start 09/24/16 at 20:30 Miscellaneous Information 1 ea NOTE XX ; Start 09/24/16 at 21:00 Glucose (Glutose) 15 gm Q15M PRN PO DECREASED GLUCOSE; Start 09/24/16 at 21:00 Glucose (Glutose) 22.5 gm Q15M PRN PO DECREASED GLUCOSE; Start 09/24/16 at 21: 00 Dextrose (D50w Syringe) 25 ml Q15M PRN IV DECREASED GLUCOSE; Start 09/24/16 at 21:00 Dextrose (D50w Syringe) 50 ml Q15M PRN IV DECREASED GLUCOSE; Start 09/24/16 at 21:00 Glucagon (Glucagen) 1 mg Q15M PRN IM DECREASED GLUCOSE; Start 09/24/16 at 21:00 Glucose (Glutose) 15 gm Q15M PRN BUCCAL DECREASED GLUCOSE; Start 09/24/16 at 21 :00 Vancomycin HCl (Vancomycin Oral Syringe) 250 mg Q6 PO Last administered on 17:15; Admin Dose 250 MG; Start 09/26/16 at 18:00; Status Future Hold Lactobacillus Acidoph/Bulgaricus (Floranex) 1 tab TID PO Last administered on 13:22; Admin Dose 1 TAB; Start 09/26/16 at 21:00; Status Future Hold Atorvastatin Calcium (Lipitor) 20 mg QHS GTB Last administered on 10/05/16 21: 42; Admin Dose 20 MG; Start 09/28/16 at 21:00; Status Future Hold Finasteride (Proscar) 5 mg DAILY GTB Last administered on 10/06/16 09:12; Admin Dose 5 MG; Start 09/29/16 at 09:00; Status Future Hold Multivitamins Therapeutic (Theragran) 1 tab DAILY GTB Last administered on 09:12; Admin Dose 1 TAB; Start 09/29/16 at 09:00; Status Future Hold Zinc Sulfate (Zinc Sulfate) 220 mg DAILY NGT Last administered on 10/06/16 09: 13; Admin Dose 220 MG; Start 09/29/16 at 09:00; Status Future Hold Ondansetron HCl (Zofran Inj) 4 mg Q6H PRN IV NAUSEA AND/OR VOMITING Last administered on 10/13/16 16:10; Admin Dose 4 MG; Start 09/29/16 at 07:30 Acetaminophen 650 mg 650 mg Q6H PRN GTB PAIN AND OR ELEVATED TEMP Last administered on 10/25/16 20:50; Admin Dose 650 MG; Start 10/02/16 at 08:00 Metronidazole (Flagyl 500 Mg (Pmx)) 100 ml @ 100 mls/hr Q8 IVPB Last administered on 10/30/16 06:26; Admin Dose 100 MLS/HR; Start 10/02/16 at 14:00 Midodrine 10 mg 10 mg TID@,,17 PO Last administered on 10/06/16 17:15; Admin Dose 10 MG; Start 10/06/16 at 01:00; Status Future Hold Linezolid (Zyvox 600mg/D5W (Pmx)) 300 ml @ 300 mls/hr Q12 IVPB Last administered on 10/30/16 08:42; Admin Dose 300 MLS/HR; Start 10/06/16 at 21:00 Levothyroxine Sodium (Synthroid Iv) 12.5 mcg DAILY@06 IV Last administered on 06:26; Admin Dose 12.5 MCG; Start 10/07/16 at 06:00 Metoclopramide HCl 5 mg 5 mg Q8 IV Last administered on 10/30/16 06:26; Admin Dose 5 MG; Start 10/06/16 at 22:00 Colistimethate Sodium/Sodium Chloride (Coly-Mycin/NS) 100 ml @ 200 mls/hr Q12 IVPB Last administered on 10/30/16 08:42; Admin Dose 200 MLS/HR; Start at 13:30 Lansoprazole (Prevacid) 30 mg BID@06,18 GTB Last administered on 10/30/16 06: 26; Admin Dose 30 MG; Start 10/21/16 at 18:00 IV Flush 10 ml 10 ml PRN PRN IV IV PROTOCOL; Start 10/22/16 at 14:30 Norepinephrine 32 mg/Dextrose 250 ml @ 0.46 mls/hr TITRATE IV Last administered on 10/30/16 08:45; Admin Dose 14.06 MLS/HR; Start 10/29/16 at 08: 00 Phenylephrine HCl 80 mg/Dextrose 250 ml @ 0 mls/hr TITRATE IV Last administered on 10/30/16 08:46; Admin Dose 9.37 MLS/HR; Start 10/29/16 at 08:00 Sodium Bicarbonate/ Dextrose (Na Bicarb/D5W) 1,000 ml @ 80 mls/hr [id number] IV Last administered on 10/30/16 02:57; Admin Dose 80 MLS/HR; Start 10/29/16 at 12 :30 Amiodarone HCl (Cordarone) 200 mg DAILY NGT ; Start 10/31/16 at 09:00 MAGGIE DINERO MD Oct 30, 2016 14:12
--- NOTE | 2016-10-30 15:13 | PN ---
Date/Time of Note Date/Time of Note DATE: 10/30/16 TIME: 15:11 Assessment/Plan VTE Prophylaxis VTE Prophylaxis Intervention: SCD's Assessment/Plan Chief Complaint/Hosp Course (1) Atrial fibrillation with RVR-stable (2) Debility secondary to CVA in the past Patient has poor prognosis is chronically trached and has a PEG and has multiple decubitus ulcers at this time Continue wound care Continue PEG tube feeding (3) Septic shock secondary to multiple decubitus ulcers -Continue pressor support and antibiotics (4) Respiratory failure, chronic Continue vent support (5) Coronary artery disease-Stable CODE STATUS-DNR Prophylaxis: SCDs Problems: Subjective 24 Hr Interval Summary Subjective hx not possible: pt non-verbal Exam/Review of Systems Vital Signs Vitals Vital Signs Date Time Temp Pulse Resp B/P Pulse Ox O2 Delivery O2 Flow Rate FiO2 10/30/16 14:30 100 32 100/68 100 10/30/16 14:00 Mechanical Ventilator 10/30/16 13:41 30 10/30/16 12:00 97.9 Intake and Output 10/29/16 10/29/16 10/30/16 15:00 23:00 07:00 Intake Total 1094 ml 1405.85 ml 1306.96 ml Output Total 230 ml 460 ml 245 ml Balance 864 ml 945.85 ml 1061.96 ml Exam Constitutional: non-verbal Respiratory: clear to auscultation Cardiovascular: regular rate and rhythm Gastrointestinal: soft, No distended Musculoskeletal: No nl extremities to inspection Results Result Diagram: 10/30/16 0400 10/30/16 0400 Results 24 hrs Laboratory Tests Test 10/30/16 04:00 White Blood Count 20.7 H Red Blood Count 2.97 L Hemoglobin 8.3 L Hematocrit 27.0 L Mean Corpuscular Volume 90.9 Mean Corpuscular Hemoglobin 27.9 L Mean Corpuscular Hemoglobin Concent 30.7 L Red Cell Distribution Width 21.0 H Platelet Count 628 H Mean Platelet Volume 10.5 H Neutrophils % 69.9 Lymphocytes % 12.8 L Monocytes % 10.9 Eosinophils % 4.9 Basophils % 0.4 Nucleated Red Blood Cells % 0.0 Neutrophils # 14.4 H Lymphocytes # 2.6 Monocytes # 2.3 H Eosinophils # 1.0 H Basophils # 0.1 Nucleated Red Blood Cells # 0.0 Sodium Level 131 L Potassium Level 3.6 Chloride Level 102 Carbon Dioxide Level 14 L Anion Gap 19 #H Blood Urea Nitrogen 29 H Creatinine 1.67 H Glucose Level 129 Calcium Level 7.0 L Medications Medications Current Medications Acetaminophen (Tylenol Supp) 650 mg Q4H PRN [place] PAIN LEVEL 1-3 OR FEVER; Start 09/24/16 at 03:00 Eye Lubricant (Artificial Tears Oph) 1 drop TID BOTH EYES Last administered on 10/30/16 13:45; Admin Dose 1 DROP; Start 09/24/16 at 09:00 Sodium Hypochlorite (Dakin'S (1/4 Strength)) 1 applic BID IRR Last administered on 10/30/16 08:43; Admin Dose 1 APPLIC; Start 09/24/16 at 21:00 Collagenase (Santyl) 1 applic DAILY TOP Last administered on 10/30/16 08:43; Admin Dose 1 APPLIC; Start 09/24/16 at 20:30 Miscellaneous Information 1 ea NOTE XX ; Start 09/24/16 at 21:00 Glucose (Glutose) 15 gm Q15M PRN PO DECREASED GLUCOSE; Start 09/24/16 at 21:00 Glucose (Glutose) 22.5 gm Q15M PRN PO DECREASED GLUCOSE; Start 09/24/16 at 21: 00 Dextrose (D50w Syringe) 25 ml Q15M PRN IV DECREASED GLUCOSE; Start 09/24/16 at 21:00 Dextrose (D50w Syringe) 50 ml Q15M PRN IV DECREASED GLUCOSE; Start 09/24/16 at 21:00 Glucagon (Glucagen) 1 mg Q15M PRN IM DECREASED GLUCOSE; Start 09/24/16 at 21:00 Glucose (Glutose) 15 gm Q15M PRN BUCCAL DECREASED GLUCOSE; Start 09/24/16 at 21 :00 Vancomycin HCl (Vancomycin Oral Syringe) 250 mg Q6 PO Last administered on 17:15; Admin Dose 250 MG; Start 09/26/16 at 18:00; Status Future Hold Lactobacillus Acidoph/Bulgaricus (Floranex) 1 tab TID PO Last administered on 13:22; Admin Dose 1 TAB; Start 09/26/16 at 21:00; Status Future Hold Atorvastatin Calcium (Lipitor) 20 mg QHS GTB Last administered on 10/05/16 21: 42; Admin Dose 20 MG; Start 09/28/16 at 21:00; Status Future Hold Finasteride (Proscar) 5 mg DAILY GTB Last administered on 10/06/16 09:12; Admin Dose 5 MG; Start 09/29/16 at 09:00; Status Future Hold Multivitamins Therapeutic (Theragran) 1 tab DAILY GTB Last administered on 09:12; Admin Dose 1 TAB; Start 09/29/16 at 09:00; Status Future Hold Zinc Sulfate (Zinc Sulfate) 220 mg DAILY NGT Last administered on 10/06/16 09: 13; Admin Dose 220 MG; Start 09/29/16 at 09:00; Status Future Hold Ondansetron HCl (Zofran Inj) 4 mg Q6H PRN IV NAUSEA AND/OR VOMITING Last administered on 10/13/16 16:10; Admin Dose 4 MG; Start 09/29/16 at 07:30 Acetaminophen 650 mg 650 mg Q6H PRN GTB PAIN AND OR ELEVATED TEMP Last administered on 10/25/16 20:50; Admin Dose 650 MG; Start 10/02/16 at 08:00 Metronidazole (Flagyl 500 Mg (Pmx)) 100 ml @ 100 mls/hr Q8 IVPB Last administered on 10/30/16 14:22; Admin Dose 100 MLS/HR; Start 10/02/16 at 14:00 Midodrine 10 mg 10 mg TID@,13,17 PO Last administered on 10/06/16 17:15; Admin Dose 10 MG; Start 10/06/16 at 01:00; Status Future Hold Linezolid (Zyvox 600mg/D5W (Pmx)) 300 ml @ 300 mls/hr Q12 IVPB Last administered on 10/30/16 08:42; Admin Dose 300 MLS/HR; Start 10/06/16 at 21:00 Levothyroxine Sodium (Synthroid Iv) 12.5 mcg DAILY@06 IV Last administered on 06:26; Admin Dose 12.5 MCG; Start 10/07/16 at 06:00 Metoclopramide HCl 5 mg 5 mg Q8 IV Last administered on 10/30/16 14:22; Admin Dose 5 MG; Start 10/06/16 at 22:00 Colistimethate Sodium/Sodium Chloride (Coly-Mycin/NS) 100 ml @ 200 mls/hr Q12 IVPB Last administered on 10/30/16 08:42; Admin Dose 200 MLS/HR; Start at 13:30 Lansoprazole (Prevacid) 30 mg BID@06,18 GTB Last administered on 10/30/16 06: 26; Admin Dose 30 MG; Start 10/21/16 at 18:00 IV Flush 10 ml 10 ml PRN PRN IV IV PROTOCOL; Start 10/22/16 at 14:30 Norepinephrine 32 mg/Dextrose 250 ml @ 0.46 mls/hr TITRATE IV Last administered on 10/30/16 08:45; Admin Dose 14.06 MLS/HR; Start 10/29/16 at 08: 00 Phenylephrine HCl 80 mg/Dextrose 250 ml @ 0 mls/hr TITRATE IV Last administered on 10/30/16 08:46; Admin Dose 9.37 MLS/HR; Start 10/29/16 at 08:00 Sodium Bicarbonate/ Dextrose (Na Bicarb/D5W) 1,000 ml @ 80 mls/hr [id number] IV Last administered on 10/30/16 14:59; Admin Dose 80 MLS/HR; Start 10/29/16 at 12 :30 Amiodarone HCl (Cordarone) 200 mg DAILY NGT ; Start 10/31/16 at 09:00 KEVYN GARNETT Oct 30, 2016 15:13
--- NOTE | 2016-10-30 16:30 | CONS ---
Date/Time of Note Date/Time of Note DATE: 10/30/16 TIME: 16:29 Assessment/Plan Assessment/Plan Chief Complaint/Hosp Course ID PROGRESS NOTE TOTAL ABX DAY # => Colistin. Zyvox Flagyl. s/p Voriconazole. 24H INTERVAL SUMMARY => * Clinically status quo == chronic recurrent septic issues, Awake, eyes tracking , non-verbal, calm, looks comfortable on the Vent * Tachycardia 105, Tmax 99.4 * PICC line changed new PICC 10/22 * MICROBIOLOGY: Blood and urine cultures since 10/19/2016 negative. s/p Glabrata UTI 10/07/16 PHYSICAL EXAMINATION: GENERAL: Chronic ill, vented, contracted hands, generalized dependent edema HEENT: Unremarkable NECK: Trach -> Secure to Vent CHEST: Equal chest rise bilaterally, without dyspnea on observation HEART: Pulse RRR ABDOMEN: Soft/peg EXTREMITIES: Warm SKIN: See hard chart skin assessment= multiple decubs ID ASSESSMENT: 81 yo M w/PMHx CVA w/Dementia, contracted extremities, VDRF, Peg admit with: 1. Admited w/Severe sepsis with shock=> RESOLVED was up on TELE-> TNS back to ICU 10/26/16 for Afib W/RVR * s/p Status post Bacteroides fragilis and Escherichia coli bacteremia on admission/Escherichia coli urinary tract infection * PICC Line DC 10/21 -> New PICC 10/22 2. Afib w/RVR s/p Rapid Response TNS back to ICU 10/26/16 am = cards following HR 105 today 3. Healthcare-associated pneumonia. 4. Anemia w/concern for Probable GI bleed (Coffee ground drainage from G tube) 5. Multiple infected decubitus on admission w/necrosis and deep tissue injury= > Polymicrobial MDRO * Multiple wounds with left trochanteric osteomyelitis. 6. Persistent diarrhea, stool for Clostridium difficile negative. 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 7. Coronary artery disease and history of non-ST elevation [place] 8. Renal insufficiency -> s/p ANGELICA resolved (+)MRSA Nares =>s/p Bactroban INVASIVES: Trach, Peg, Cee, Rectal Tube, PICC 10/22/2016. ABX ALLERGY: KNDA CURRENT ABX: => Colistin. Zyvox Flagyl s/p Voriconazole. ID RECOMMENDATIONS: 1. Continue current ABX => due to increase infiltrate on CXR 10/26/16 with recurrent sepsis 2. Remains on long-term IV ABX for multiple infected wounds including concern for osteomyelitis, not a surgical candidate . . . . . . . . Problems: Consultation Date/Type/Reason Admit Date/Time Sep 24, 2016 at 03:19 Initial Consult Date 09/24/16 Type of Consultation: ID Referring Provider: FELIX BLAKE DO Exam/Review of Systems Vital Signs Vitals Vital Signs Date Time Temp Pulse Resp B/P Pulse Ox O2 Delivery O2 Flow Rate FiO2 10/30/16 15:38 98 34 100 30 10/30/16 14:30 100/68 10/30/16 14:00 Mechanical Ventilator 10/30/16 12:00 97.9 Intake and Output 10/29/16 10/29/16 10/30/16 15:00 23:00 07:00 Intake Total 1094 ml 1405.85 ml 1306.96 ml Output Total 230 ml 460 ml 245 ml Balance 864 ml 945.85 ml 1061.96 ml Results Result Diagram: 10/30/16 0400 10/30/16 0400 Results 24 hrs Laboratory Tests Test 10/30/16 04:00 White Blood Count 20.7 H Red Blood Count 2.97 L Hemoglobin 8.3 L Hematocrit 27.0 L Mean Corpuscular Volume 90.9 Mean Corpuscular Hemoglobin 27.9 L Mean Corpuscular Hemoglobin Concent 30.7 L Red Cell Distribution Width 21.0 H Platelet Count 628 H Mean Platelet Volume 10.5 H Neutrophils % 69.9 Lymphocytes % 12.8 L Monocytes % 10.9 Eosinophils % 4.9 Basophils % 0.4 Nucleated Red Blood Cells % 0.0 Neutrophils # 14.4 H Lymphocytes # 2.6 Monocytes # 2.3 H Eosinophils # 1.0 H Basophils # 0.1 Nucleated Red Blood Cells # 0.0 Sodium Level 131 L Potassium Level 3.6 Chloride Level 102 Carbon Dioxide Level 14 L Anion Gap 19 #H Blood Urea Nitrogen 29 H Creatinine 1.67 H Glucose Level 129 Calcium Level 7.0 L Medications Medications Current Medications Acetaminophen (Tylenol Supp) 650 mg Q4H PRN [place] PAIN LEVEL 1-3 OR FEVER; Start 09/24/16 at 03:00 Eye Lubricant (Artificial Tears Oph) 1 drop TID BOTH EYES Last administered on 10/30/16 13:45; Admin Dose 1 DROP; Start 09/24/16 at 09:00 Sodium Hypochlorite (Dakin'S (1/4 Strength)) 1 applic BID IRR Last administered on 10/30/16 08:43; Admin Dose 1 APPLIC; Start 09/24/16 at 21:00 Collagenase (Santyl) 1 applic DAILY TOP Last administered on 10/30/16 08:43; Admin Dose 1 APPLIC; Start 09/24/16 at 20:30 Miscellaneous Information 1 ea NOTE XX ; Start 09/24/16 at 21:00 Glucose (Glutose) 15 gm Q15M PRN PO DECREASED GLUCOSE; Start 09/24/16 at 21:00 Glucose (Glutose) 22.5 gm Q15M PRN PO DECREASED GLUCOSE; Start 09/24/16 at 21: 00 Dextrose (D50w Syringe) 25 ml Q15M PRN IV DECREASED GLUCOSE; Start 09/24/16 at 21:00 Dextrose (D50w Syringe) 50 ml Q15M PRN IV DECREASED GLUCOSE; Start 09/24/16 at 21:00 Glucagon (Glucagen) 1 mg Q15M PRN IM DECREASED GLUCOSE; Start 09/24/16 at 21:00 Glucose (Glutose) 15 gm Q15M PRN BUCCAL DECREASED GLUCOSE; Start 09/24/16 at 21 :00 Vancomycin HCl (Vancomycin Oral Syringe) 250 mg Q6 PO Last administered on 17:15; Admin Dose 250 MG; Start 09/26/16 at 18:00; Status Future Hold Lactobacillus Acidoph/Bulgaricus (Floranex) 1 tab TID PO Last administered on 13:22; Admin Dose 1 TAB; Start 09/26/16 at 21:00; Status Future Hold Atorvastatin Calcium (Lipitor) 20 mg QHS GTB Last administered on 10/05/16 21: 42; Admin Dose 20 MG; Start 09/28/16 at 21:00; Status Future Hold Finasteride (Proscar) 5 mg DAILY GTB Last administered on 10/06/16 09:12; Admin Dose 5 MG; Start 09/29/16 at 09:00; Status Future Hold Multivitamins Therapeutic (Theragran) 1 tab DAILY GTB Last administered on 09:12; Admin Dose 1 TAB; Start 09/29/16 at 09:00; Status Future Hold Zinc Sulfate (Zinc Sulfate) 220 mg DAILY NGT Last administered on 10/06/16 09: 13; Admin Dose 220 MG; Start 09/29/16 at 09:00; Status Future Hold Ondansetron HCl (Zofran Inj) 4 mg Q6H PRN IV NAUSEA AND/OR VOMITING Last administered on 10/13/16 16:10; Admin Dose 4 MG; Start 09/29/16 at 07:30 Acetaminophen 650 mg 650 mg Q6H PRN GTB PAIN AND OR ELEVATED TEMP Last administered on 10/25/16 20:50; Admin Dose 650 MG; Start 10/02/16 at 08:00 Metronidazole (Flagyl 500 Mg (Pmx)) 100 ml @ 100 mls/hr Q8 IVPB Last administered on 10/30/16 14:22; Admin Dose 100 MLS/HR; Start 10/02/16 at 14:00 Midodrine 10 mg 10 mg TID@ PO Last administered on 10/06/16 17:15; Admin Dose 10 MG; Start 10/06/16 at 01:00; Status Future Hold Linezolid (Zyvox 600mg/D5W (Pmx)) 300 ml @ 300 mls/hr Q12 IVPB Last administered on 10/30/16 08:42; Admin Dose 300 MLS/HR; Start 10/06/16 at 21:00 Levothyroxine Sodium (Synthroid Iv) 12.5 mcg DAILY@06 IV Last administered on 06:26; Admin Dose 12.5 MCG; Start 10/07/16 at 06:00 Metoclopramide HCl 5 mg 5 mg Q8 IV Last administered on 10/30/16 14:22; Admin Dose 5 MG; Start 10/06/16 at 22:00 Colistimethate Sodium/Sodium Chloride (Coly-Mycin/NS) 100 ml @ 200 mls/hr Q12 IVPB Last administered on 10/30/16 08:42; Admin Dose 200 MLS/HR; Start at 13:30 Lansoprazole (Prevacid) 30 mg BID@06,18 GTB Last administered on 10/30/16 06: 26; Admin Dose 30 MG; Start 10/21/16 at 18:00 IV Flush 10 ml 10 ml PRN PRN IV IV PROTOCOL; Start 10/22/16 at 14:30 Norepinephrine 32 mg/Dextrose 250 ml @ 0.46 mls/hr TITRATE IV Last administered on 10/30/16 08:45; Admin Dose 14.06 MLS/HR; Start 10/29/16 at 08: 00 Phenylephrine HCl 80 mg/Dextrose 250 ml @ 0 mls/hr TITRATE IV Last administered on 10/30/16 08:46; Admin Dose 9.37 MLS/HR; Start 10/29/16 at 08:00 Sodium Bicarbonate/ Dextrose (Na Bicarb/D5W) 1,000 ml @ 80 mls/hr [id number] IV Last administered on 10/30/16 14:59; Admin Dose 80 MLS/HR; Start 10/29/16 at 12 :30 Amiodarone HCl (Cordarone) 200 mg DAILY NGT ; Start 10/31/16 at 09:00 KUSHAL HOUSE NP Oct 30, 2016 16:30
--- NOTE | 2016-10-30 19:11 | PN ---
DATE: 10/30/2016 SUBJECTIVE: The patient himself is not complaining. He is not verbal and has a tracheostomy. The patient has penoscrotal edema and contracture of the lower extremities. OBJECTIVE: VITAL SIGNS: Temperature is 98.3, blood pressure 92/65, pulse is 101, respirations 27. ABDOMEN: Distended. GENITOURINARY: The scrotum is swollen as well as the penis, very hard to be able even to see them b ecause of the contracture of his knees, and one cannot separate his legs. One has to force it a lit tle bit and put a pillow between his knees so they don't drop against each other. LABORATORY DATA: His CBC shows a white count of 20.7, hemoglobin 8.3, hematocrit 27.0. BUN is 29, creatinine 1.67. IMPRESSION: Penoscrotal edema. PLAN: Continue to elevate the scrotum and keep the catheter in place. Dictated By: MISHEL WOODWARD/ELIZABETH Conf#: [id number] DID#: [id number]
[2016-10-31] VITALS (94 sets, daily range): BP systolic 31–90; BP diastolic 12–75; PULSE 84–113; RESP 21–38
[2016-10-31] MEDS: NORepinephrine 32 MG in DEXTROSE 5% 218 ML IV SCH ×2 (01:14→18:57)
[2016-10-31] MEDS: ALBUTEROL 18 GM INHALER INH SCH ×4 (01:29→19:59)
[2016-10-31] MEDS: IPRATROPIUM (HFA) 12.9 GM INHALER INH SCH ×4 (01:30→19:58)
[2016-10-31] MEDS: SODIUM BICARBONATE (IV ADD) 100 MEQ in DEXTROSE 5% 900 ML IV SCH ×3 (02:00→21:37)
[2016-10-31] MEDS: ONDANSETRON 4 MG INJ IV PRN (04:17)
[2016-10-31] MEDS ORDERED: ONDANSETRON 4 MG INJ IV PRN (04:30)
[2016-10-31 04:41] LABS: ADD SCAN DIFF NO
[2016-10-31 04:46] LABS: ABNORMAL IP MESSAGE 1; BASOPHIL # 0.1 10^3/ul (0.0-0.1); BASOPHILS % 0.3 % (0.0-2.0); EOSINOPHILS # 1.1 10^3/ul (0.0-0.5); EOSINOPHILS % 3.6 % (0.0-7.0); HEMATOCRIT 28.6 % (42.0-52.0); LYMPHOCYTES # 1.9 10^3/ul (0.8-2.9); LYMPHOCYTES % 6.3 % (15.0-51.0); MEAN CORPUSCULAR HEMOGLOBIN 28.6 pg (29.0-33.0); MEAN CORPUSCULAR HGB CONC 31.5 g/dl (32.0-37.0); MEAN CORPUSCULAR VOLUME 90.8 fl (82.0-101.0); MEAN PLATELET VOLUME 10.5 fl (7.4-10.4); MONOCYTE # 2.2 10^3/ul (0.3-0.9); MONOCYTES % 7.3 % (0.0-11.0); NEUTROPHIL # 24.4 10^3/ul (1.6-7.5); NEUTROPHILS % 81.3 % (39.0-77.0); NUCLEATED RED BLOOD CELLS% 0.1 /100WBC (0.0-0.0); PLATELET COUNT 617 10^3/UL (140-415); RED BLOOD COUNT 3.15 10^6/ul (4.70-6.10); RED CELL DISTRIBUTION WIDTH 21.7 % (11.5-14.5)
[2016-10-31 05:01] LABS: POTASSIUM 3.6 mmol/L (3.5-5.1)
[2016-10-31 05:04] LABS: CREATININE 1.91 mg/dl (0.61-1.24)
[2016-10-31] MEDS: VASOPRESSIN 60 UNIT in DEXTROSE 5% 57 ML IV SCH ×2 (05:38→18:55)
[2016-10-31] MEDS: LANSOPRAZOLE 30 MG CAP GTB SCH ×2 (06:00→18:00)
--- NOTE | 2016-10-31 06:01 | RADRPT ---
PROCEDURE: XR Abdomen. CLINICAL INDICATION: Vomiting. Elevated G-tube residuals. TECHNIQUE: AP abdomen x-ray. COMPARISON: 10/10/2016 FINDINGS: Gastrostomy tube overlies the left upper quadrant. This appears slightly more lateral than on the p rior KUB but this may be due to patient rotation. Gaseous distension of the transverse colon. Left greater than right pleural effusions and left lower lobe atelectasis or infiltrate is similar to est x-ray from 10/26. Marked heterotopic bone formation is seen about the bony pelvis. Degenerativ e change of the spine. Free air cannot be excluded on a supine radiograph.. IMPRESSION: Gaseous distension of the transverse colon. If confirmation of G tube balloon location is needed, g astrografin study would be suggested. Left lower lobe atelectasis or infiltrate and left greater th an right pleural effusions. RPTAT: HLBE Physician Dipti Date Time Electronically viewed and signed by Maria Ines Miller Physician on 10/31/2016 06:01 ILAN/
[2016-10-31 06:08] LABS: AADO2 Arterial 83.6 mmHg (7.0-24.0); Allen Test ACCEPTAB; Arterial Base Excess -16.3 mmol/L (-3.0-3); Arterial COHb 0.3 % (0.0-3.0); Arterial Fraction of Oxyhgb 96.3 % (93.0-99.0); Arterial HCO3 8.6 mmol/L (22.0-26.0); Arterial MetHb 0.4 % (0.0-1.5); Arterial Total Hemglobin 10.3 g/dl (12.0-18.0); MODE VENT - AC
[2016-10-31] MEDS: PHENYLephrine 80 MG in DEXTROSE 5% 242 ML IV SCH ×4 (06:17→20:37)
[2016-10-31] MEDS: LEVOTHYROXINE 100 MCG VIAL IV SCH (06:21)
[2016-10-31] MEDS: metroNIDAZOLE 500 MG/NS (PMX) 100 ML IVPB SCH ×3 (06:21→21:37)
[2016-10-31] MEDS: METOCLOPRAMIDE 10 MG INJ IV SCH ×3 (06:21→21:37)
--- NOTE | 2016-10-31 08:32 | PN ---
Date/Time of Note Date/Time of Note DATE: 10/30/16 TIME: 15:31 Assessment/Plan Lines/Catheters IV C[facility]ter Type (from [facility]): PICC Line Assessment/Plan Chief Complaint/Hosp Course 1. Shock, septic (uti, pna, wound). -Judicious fluid management -Supportive measures -Antibiotics 2. Multiple decubitus ulcerations with necrotic tissue and deep tissue injury -Offload -Local care -Vitamin C -Nutrition as possible -Debridement when medically cleared 3. Contracted state with functional quadriplegia -Offloading -Nutritional optimization when possible 4. Anemia -Monitor 5. Ventilator dependent respiratory failure -Ventilator management and pulmonary toilet 6. Renal insufficiency -Judicious fluid management -Avoid nephrotoxic agents 7. Coronary artery disease and history of non-ST elevation [place] -Cardiac optimization 8. Thrombocytosis -medical optimization Thank you Late entry 10/30 Problems: Subjective 24 Hr Interval Summary On pressors. Tachycardia. Fever. Leukocytosis. No chills. No cough. No seizure. No rash. No blood rectum. No bloating. No seizures. No pyuria. Exam/Review of Systems Vital Signs Vitals Vital Signs Date Time Temp Pulse Resp B/P Pulse Ox O2 Delivery O2 Flow Rate FiO2 10/31/16 07:15 100 32 100 60 10/31/16 06:45 67/45 Mechanical Ventilator 10/31/16 04:00 96.9 Intake and Output 10/30/16 10/30/16 10/31/16 15:00 23:00 07:00 Intake Total 1927.38 ml 1329.61 ml 787.05 ml Output Total 50 ml 115 ml 40 ml Balance 1877.38 ml 1214.61 ml 747.05 ml Exam Free Text/Dictation Constitutional: No alert, No oriented Psych: No nl mood/affect Head: atraumatic, normocephalic Eyes: nl conjunctiva, No EOMI, No icteric ENMT: mucosa pink and moist, nl external ears & nose Neck: jvd, other (Trach in place), No non-tender, No supple Respiratory: No congested cough, No labored breathing Cardiovascular: No regular rate and rhythm Gastrointestinal: non-tender, other (PEG in place), soft, No rebound or guarding Musculoskeletal: No joint tenderness, No nl extremities to inspection, No nl gait and stance Extremities: No calf tenderness, No cyanosis Neurological: No nl mental status, No nl speech, No nl strength Skin: rash or lesions (Multiple decubitus ulcerations with debris, necrotic tissue, deep tissue injury), No diaphoresis, No nl turgor Lymph: nontender Results Result Diagram: 10/31/1639910/31/16399 EVA GUARDADO MD Oct 31, 2016 08:32
--- NOTE | 2016-10-31 08:33 | PN ---
Date/Time of Note Date/Time of Note DATE: 10/31/16 TIME: 08:32 Assessment/Plan Lines/Catheters IV [facility]): [facility] Line Assessment/Plan Chief Complaint/Hosp Course 1. Shock, septic (uti, pna, wound). -Judicious fluid management -Supportive measures -Antibiotics 2. Multiple decubitus ulcerations with necrotic tissue and deep tissue injury -Offload -Local care -Vitamin C -Nutrition as possible -Debridement when medically cleared 3. Contracted state with functional quadriplegia -Offloading -Nutritional optimization when possible 4. Anemia -Monitor 5. Ventilator dependent respiratory failure -Ventilator management and pulmonary toilet 6. Renal insufficiency -Judicious fluid management -Avoid nephrotoxic agents 7. Coronary artery disease and history of non-ST elevation [place] -Cardiac optimization 8. Thrombocytosis -medical optimization Thank you Problems: Subjective 24 Hr Interval Summary On pressors. Tachycardia. Fever. Leukocytosis. No chills. No cough. No seizure. No rash. No blood rectum. No bloating. No seizures. No pyuria. Exam/Review of Systems Vital Signs Vitals Vital Signs Date Time Temp Pulse Resp B/P Pulse Ox O2 Delivery O2 Flow Rate FiO2 10/31/16 07:15 100 32 100 60 10/31/16 06:45 67/45 Mechanical Ventilator 10/31/16 04:00 96.9 Intake and Output 10/30/16 10/30/16 10/31/16 15:00 23:00 07:00 Intake Total 1927.38 ml 1329.61 ml 787.05 ml Output Total 50 ml 115 ml 40 ml Balance 1877.38 ml 1214.61 ml 747.05 ml Exam Free Text/Dictation Constitutional: No alert, No oriented Psych: No nl mood/affect Head: atraumatic, normocephalic Eyes: nl conjunctiva, No EOMI, No icteric ENMT: mucosa pink and moist, nl external ears & nose Neck: jvd, other (Trach in place), No non-tender, No supple Respiratory: No congested cough, No labored breathing Cardiovascular: No regular rate and rhythm Gastrointestinal: non-tender, other (PEG in place), soft, No rebound or guarding Musculoskeletal: No joint tenderness, No nl extremities to inspection, No nl gait and stance Extremities: No calf tenderness, No cyanosis Neurological: No nl mental status, No nl speech, No nl strength Skin: rash or lesions (Multiple decubitus ulcerations with debris, necrotic tissue, deep tissue injury), No diaphoresis, No nl turgor Lymph: nontender Results Result Diagram: 10/31/1639910/31/160 EVA GUARDADO MD Oct 31, 2016 08:33
[2016-10-31] MEDS: AMIODARONE 200 MG TAB NGT SCH (09:00)
[2016-10-31] MEDS: LINEZOLID 600 MG/D5W (PMX) 300 ML IVPB SCH ×2 (09:51→21:13)
[2016-10-31] MEDS: SODIUM HYPOCHLORITE 0.125% 473 ML BTL IRR SCH ×2 (09:52→21:12)
[2016-10-31] MEDS: COLLAGENASE 30 GM TUBE TOP SCH (09:52)
[2016-10-31] MEDS: ARTIFICIAL TEARS 15 ML OPH BOTH EYES SCH ×3 (09:52→21:12)
--- NOTE | 2016-10-31 10:18 | CONS ---
Date/Time of Note Date/Time of Note DATE: 10/31/16 TIME: 10:14 Assessment/Plan Assessment/Plan Additional Assessment/Plan Ventilator settings; AC of 20, tidal volume 500, PEEP of 5, 60% FiO2. Patient currently on Levophed 30 mics per minute, vasopressin 0.04 U/min. Assessment recommendations; 1. Patient admitted for severe sepsis from sacral decubitus ulcers. 2. Left lower lobe pneumonia. 3. Advanced multi-infarct dementia. 4. History of chronic respiratory failure, ventilator dependent. 5. History of BPH, hypo-thyroidism. 6. Anemia. 7. Profound shock. Continue current supportive care. Prognosis is dismal. 35 minutes of critical care time was spent evaluating the patient. Consultation Date/Type/Reason Admit Date/Time Sep 24, 2016 at 03:19 Initial Consult Date 09/24/16 Type of Consultation: Pulmonary/critical care Referring Provider: FELIX BLAKE DO 24 HR Interval Summary Free Text/Dictation Patient condition remains extremely critical. Remains profoundly hypotensive, requiring high-dose combination pressor support. General exam; elderly male, on ventilator via tracheostomy, unresponsive. Exam/Review of Systems Vital Signs Vitals Vital Signs Date Time Temp Pulse Resp B/P Pulse Ox O2 Delivery O2 Flow Rate FiO2 10/31/16 09:00 97 36 66/49 94 Mechanical Ventilator 10/31/16 08:00 30 10/31/16 08:00 97.3 Intake and Output 10/30/16 10/30/16 10/31/16 15:00 23:00 07:00 Intake Total 1927.38 ml 1329.61 ml 787.05 ml Output Total 50 ml 115 ml 40 ml Balance 1877.38 ml 1214.61 ml 747.05 ml Exam HEENT exam is; supple neck, positive JVD. No lymphadenopathy. Midline trachea. No thyromegaly. Tracheostomy in place with clean insertion site. Patient does have multiple carious teeth. Pupils are small bilaterally. No neck masses. Next Chest examination; diminished breath sound bilaterally no added sounds. S1-S2 audible, no murmurs. Abdomen examination of Ryder soft, G-tube in place. No organomegaly. Bowel sounds are sluggish. Back examination; dressing applied over sacrum. Extremity examination of Ryder no peripheral edema. Patient has contractures involving all 4 extremities. [employer] examination; patient remains unresponsive. Results Result Diagram: 10/31/160 10/31/16 0400 Results 24 hrs Laboratory Tests Test 10/31/16 04:00 10/31/16 06:00 White Blood Count 30.0 #H Red Blood Count 3.15 L Hemoglobin 9.0 L Hematocrit 28.6 L Mean Corpuscular Volume 90.8 Mean Corpuscular Hemoglobin 28.6 L Mean Corpuscular Hemoglobin Concent 31.5 L Red Cell Distribution Width 21.7 H Platelet Count 617 H Mean Platelet Volume 10.5 H Neutrophils % 81.3 H Lymphocytes % 6.3 L Monocytes % 7.3 Eosinophils % 3.6 Basophils % 0.3 Nucleated Red Blood Cells % 0.1 H Neutrophils # 24.4 H Lymphocytes # 1.9 Monocytes # 2.2 H Eosinophils # 1.1 H Basophils # 0.1 Nucleated Red Blood Cells # 0.0 Sodium Level 126 L Potassium Level 3.6 Chloride Level 98 Carbon Dioxide Level 12 L Anion Gap 20 H Blood Urea Nitrogen 29 H Creatinine 1.91 H Glucose Level 100 Calcium Level 7.0 L Blood Gas Specimen Source Blood arterial Arterial Blood Date Drawn 10/31/2016 6:00:37 AM Arterial Blood pH (Temp corrected) 7.271 *L Arterial Blood pCO2 (Temp correct) 19.1 L Arterial Blood pO2 (Temp corrected) 107.9 H Arterial Blood HCO3 8.6 *L Arterial Blood Base Excess -16.3 L Arterial Blood Oxygen Saturation 97.0 Ki Test ACCEPTAB Arterial Blood Gas Puncture Site Right Radial Arterial Blood Carboxyhemoglobin 0.3 Arterial Blood Methemoglobin 0.4 Blood Gas A-a O2 Differential 83.6 H Oxyhemoglobin Percent 96.3 Total Hemoglobin 10.3 L Blood Gas Temperature 37.0 Blood Gas Respiration Rate 16.0 Blood Gas Actual Respiration Rate 34 Blood Gas Modality VENT - AC FiO2 30.0 Blood Gas Tidal Volume 500.0 Blood Gas Low PEEP Setting 5.0 Blood Gas Critical Value Read Back [place] DANIELSON Blood Gas Notified Whom BHANU Blood Gas Notified Time 10/31/2016 6:07:52 AM Medications Medications Current Medications Acetaminophen (Tylenol Supp) 650 mg Q4H PRN [place] PAIN LEVEL 1-3 OR FEVER; Start 09/24/16 at 03:00 Eye Lubricant (Artificial Tears Oph) 1 drop TID BOTH EYES Last administered on 10/31/16t 09:52; Admin Dose 1 DROP; Start 09/24/16 at 09:00 Sodium Hypochlorite (Dakin'S (1/4 Strength)) 1 applic BID IRR Last administered on 10/31/16 09:52; Admin Dose 1 APPLIC; Start 09/24/16 at 21:00 Collagenase (Santyl) 1 applic DAILY TOP Last administered on 10/31/16 09:52; Admin Dose 1 APPLIC; Start 09/24/16 at 20:30 Miscellaneous Information 1 ea NOTE XX ; Start 09/24/16 at 21:00 Glucose (Glutose) 15 gm Q15M PRN PO DECREASED GLUCOSE; Start 09/24/16 at 21:00 Glucose (Glutose) 22.5 gm Q15M PRN PO DECREASED GLUCOSE; Start 09/24/16 at 21: 00 Dextrose (D50w Syringe) 25 ml Q15M PRN IV DECREASED GLUCOSE; Start 09/24/16 at 21:00 Dextrose (D50w Syringe) 50 ml Q15M PRN IV DECREASED GLUCOSE; Start 09/24/16 at 21:00 Glucagon (Glucagen) 1 mg Q15M PRN IM DECREASED GLUCOSE; Start 09/24/16 at 21:00 Glucose (Glutose) 15 gm Q15M PRN BUCCAL DECREASED GLUCOSE; Start 09/24/16 at 21 :00 Vancomycin HCl (Vancomycin Oral Syringe) 250 mg Q6 PO Last administered on 17:15; Admin Dose 250 MG; Start 09/26/16 at 18:00; Status Future Hold Lactobacillus Acidoph/Bulgaricus (Floranex) 1 tab TID PO Last administered on 13:22; Admin Dose 1 TAB; Start 09/26/16 at 21:00; Status Future Hold Atorvastatin Calcium (Lipitor) 20 mg QHS GTB Last administered on 10/05/16 21: 42; Admin Dose 20 MG; Start 09/28/16 at 21:00; Status Future Hold Finasteride (Proscar) 5 mg DAILY GTB Last administered on 10/06/16 09:12; Admin Dose 5 MG; Start 09/29/16 at 09:00; Status Future Hold Multivitamins Therapeutic (Theragran) 1 tab DAILY GTB Last administered on 09:12; Admin Dose 1 TAB; Start 09/29/16 at 09:00; Status Future Hold Zinc Sulfate (Zinc Sulfate) 220 mg DAILY NGT Last administered on 10/06/16 09: 13; Admin Dose 220 MG; Start 09/29/16 at 09:00; Status Future Hold Ondansetron HCl (Zofran Inj) 4 mg Q6H PRN IV NAUSEA AND/OR VOMITING Last administered on 10/31/16 04:17; Admin Dose 4 MG; Start 09/29/16 at 07:30 Acetaminophen 650 mg 650 mg Q6H PRN GTB PAIN AND OR ELEVATED TEMP Last administered on 10/25/16 20:50; Admin Dose 650 MG; Start 10/02/16 at 08:00 Metronidazole (Flagyl 500 Mg (Pmx)) 100 ml @ 100 mls/hr Q8 IVPB Last administered on 10/31/16 06:21; Admin Dose 100 MLS/HR; Start 10/02/16 at 14:00 Midodrine 10 mg 10 mg TID@ PO Last administered on 10/06/16 17:15; Admin Dose 10 MG; Start 10/06/16 at 01:00; Status Future Hold Linezolid (Zyvox 600mg/D5W (Pmx)) 300 ml @ 300 mls/hr Q12 IVPB Last administered on 10/31/16 09:51; Admin Dose 300 MLS/HR; Start 10/06/16 at 21:00 Levothyroxine Sodium (Synthroid Iv) 12.5 mcg DAILY@06 IV Last administered on 06:21; Admin Dose 12.5 MCG; Start 10/07/16 at 06:00 Metoclopramide HCl (Reglan) 5 mg Q8 IV Last administered on 10/31/16 06:21; Admin Dose 5 MG; Start 10/06/16 at 22:00 Lansoprazole (Prevacid) 30 mg BID@,18 GTB Last administered on 10/30/16 18: 19; Admin Dose 30 MG; Start 10/21/16 at 18:00 IV Flush 10 ml 10 ml PRN PRN IV IV PROTOCOL; Start 10/22/16 at 14:30 Norepinephrine 32 mg/Dextrose 250 ml @ 0.46 mls/hr TITRATE IV Last administered on 10/31/16 01:14; Admin Dose 14.06 MLS/HR; Start 10/29/16 at 08: 00 Phenylephrine HCl 80 mg/Dextrose 250 ml @ 0 mls/hr TITRATE IV Last administered on 10/31/16 09:54; Admin Dose 56.25 MLS/HR; Start 10/29/16 at 08: 00 Sodium Bicarbonate/ Dextrose (Na Bicarb/D5W) 1,000 ml @ 80 mls/hr [id number] IV Last administered on 10/31/16 05:30; Admin Dose 80 MLS/HR; Start 10/29/16 at 12 :30 Amiodarone HCl (Cordarone) 200 mg DAILY NGT ; Start 10/31/16 at 09:00 Ondansetron HCl 4 mg 4 mg Q6H PRN IV NAUSEA AND/OR VOMITING; Start 10/31/16 at 04:30 Vasopressin 60 unit/Dextrose 60 ml @ 1.2 mls/hr Q12H IV Last administered on 05:38; Admin Dose 1.2 MLS/HR; Start 10/31/16 at 05:30 Colistimethate Sodium/Sodium Chloride (Coly-Mycin/NS) 100 ml @ 200 mls/hr Q36H IVPB ; Start 10/31/16 at 20:00 MAIN SALTER Oct 31, 2016 10:18
--- NOTE | 2016-10-31 11:16 | CONS ---
Date/Time of Note Date/Time of Note DATE: 10/31/16 TIME: 11:12 Assessment/Plan Assessment/Plan Additional Assessment/Plan 1. Non Oliguric Acute kidney injury on chronic kidney disease. due to ATN from septic shock - now progressed to Anuric 2. septic shock on 3 pressors 3. severe metabolic acidosis on bicarboante drip 4. acute on chronic respiratory failure, status post tracheostomy, on ventilator. 6. History of G-tube. 7. Poor mental status due to the previous cerebrovascular accident. 8. History of dementia. 9. History of hypertension. PLAN: pt very labile BP, on 3 pressors, anuric, not a candidate for Renal replacement therapy due to his comorbidities BP labile will talk to to explain her about his critical situation and for he is not a candidate for HD Consultation Date/Type/Reason Admit Date/Time Sep 24, 2016 at 03:19 Initial Consult Date 09/24/16 Type of Consultation: NEPHROLOGY Referring Provider: FELIX BLAKE DO 24 HR Interval Summary Free Text/Dictation pt is not doing well, on 3 pressors ,anuric Exam/Review of Systems Vital Signs Vitals Vital Signs Date Time Temp Pulse Resp B/P Pulse Ox O2 Delivery O2 Flow Rate FiO2 10/31/16 11:00 97 27 53/32 95 Mechanical Ventilator 10/31/16 08:00 30 10/31/16 08:00 97.3 Intake and Output 10/30/16 10/30/16 10/31/16 15:00 23:00 07:00 Intake Total 1927.38 ml 1329.61 ml 787.05 ml Output Total 50 ml 115 ml 40 ml Balance 1877.38 ml 1214.61 ml 747.05 ml Exam GENERAL: Chronic ill, vented, contracted hands, generalized dependent edema HEENT: Unremarkable NECK: Trach -> Secure to Vent CHEST: Equal chest rise bilaterally, without dyspnea on observation HEART: Pulse RRR ABDOMEN: Soft/peg EXTREMITIES: Warm SKIN: See hard chart skin assessment= multiple decubs Results Result Diagram: 10/31/16 0400 10/31/16 0400 Results 24 hrs Laboratory Tests Test 10/31/16 04:00 10/31/16 06:00 White Blood Count 30.0 #H Red Blood Count 3.15 L Hemoglobin 9.0 L Hematocrit 28.6 L Mean Corpuscular Volume 90.8 Mean Corpuscular Hemoglobin 28.6 L Mean Corpuscular Hemoglobin Concent 31.5 L Red Cell Distribution Width 21.7 H Platelet Count 617 H Mean Platelet Volume 10.5 H Neutrophils % 81.3 H Lymphocytes % 6.3 L Monocytes % 7.3 Eosinophils % 3.6 Basophils % 0.3 Nucleated Red Blood Cells % 0.1 H Neutrophils # 24.4 H Lymphocytes # 1.9 Monocytes # 2.2 H Eosinophils # 1.1 H Basophils # 0.1 Nucleated Red Blood Cells # 0.0 Sodium Level 126 L Potassium Level 3.6 Chloride Level 98 Carbon Dioxide Level 12 L Anion Gap 20 H Blood Urea Nitrogen 29 H Creatinine 1.91 H Glucose Level 100 Calcium Level 7.0 L Blood Gas Specimen Source Blood arterial Arterial Blood Date Drawn 10/31/2016 6:00:37 AM Arterial Blood pH (Temp corrected) 7.271 *L Arterial Blood pCO2 (Temp correct) 19.1 L Arterial Blood pO2 (Temp corrected) 107.9 H Arterial Blood HCO3 8.6 *L Arterial Blood Base Excess -16.3 L Arterial Blood Oxygen Saturation 97.0 Ki Test ACCEPTAB Arterial Blood Gas Puncture Site Right Radial Arterial Blood Carboxyhemoglobin 0.3 Arterial Blood Methemoglobin 0.4 Blood Gas A-a O2 Differential 83.6 H Oxyhemoglobin Percent 96.3 Total Hemoglobin 10.3 L Blood Gas Temperature 37.0 Blood Gas Respiration Rate 16.0 Blood Gas Actual Respiration Rate 34 Blood Gas Modality VENT - AC FiO2 30.0 Blood Gas Tidal Volume 500.0 Blood Gas Low PEEP Setting 5.0 Blood Gas Critical Value Read Back [place] DANIELSON Blood Gas Notified Whom [place] Blood Gas Notified Time 10/31/2016 6:07:52 AM Medications Medications Current Medications Acetaminophen (Tylenol Supp) 650 mg Q4H PRN [place] PAIN LEVEL 1-3 OR FEVER; Start 09/24/16 at 03:00 Eye Lubricant (Artificial Tears Oph) 1 drop TID BOTH EYES Last administered on 10/31/16 09:52; Admin Dose 1 DROP; Start 09/24/16 at 09:00 Sodium Hypochlorite (Dakin'S (1/4 Strength)) 1 applic BID IRR Last administered on 10/31/16 09:52; Admin Dose 1 APPLIC; Start 09/24/16 at 21:00 Collagenase (Santyl) 1 applic DAILY TOP Last administered on 10/31/16 09:52; Admin Dose 1 APPLIC; Start 09/24/16 at 20:30 Miscellaneous Information 1 ea NOTE XX ; Start 09/24/16 at 21:00 Glucose (Glutose) 15 gm Q15M PRN PO DECREASED GLUCOSE; Start 09/24/16 at 21:00 Glucose (Glutose) 22.5 gm Q15M PRN PO DECREASED GLUCOSE; Start 09/24/16 at 21: 00 Dextrose (D50w Syringe) 25 ml Q15M PRN IV DECREASED GLUCOSE; Start 09/24/16 at 21:00 Dextrose (D50w Syringe) 50 ml Q15M PRN IV DECREASED GLUCOSE; Start 09/24/16 at 21:00 Glucagon (Glucagen) 1 mg Q15M PRN IM DECREASED GLUCOSE; Start 09/24/16 at 21:00 Glucose (Glutose) 15 gm Q15M PRN BUCCAL DECREASED GLUCOSE; Start 09/24/16 at 21 :00 Vancomycin HCl (Vancomycin Oral Syringe) 250 mg Q6 PO Last administered on 17:15; Admin Dose 250 MG; Start 09/26/16 at 18:00; Status Future Hold Lactobacillus Acidoph/Bulgaricus (Floranex) 1 tab TID PO Last administered on 13:22; Admin Dose 1 TAB; Start 09/26/16 at 21:00; Status Future Hold Atorvastatin Calcium (Lipitor) 20 mg QHS GTB Last administered on 10/05/16 21: 42; Admin Dose 20 MG; Start 09/28/16 at 21:00; Status Future Hold Finasteride (Proscar) 5 mg DAILY GTB Last administered on 10/06/16 09:12; Admin Dose 5 MG; Start 09/29/16 at 09:00; Status Future Hold Multivitamins Therapeutic (Theragran) 1 tab DAILY GTB Last administered on 09:12; Admin Dose 1 TAB; Start 09/29/16 at 09:00; Status Future Hold Zinc Sulfate (Zinc Sulfate) 220 mg DAILY NGT Last administered on 10/06/16 09: 13; Admin Dose 220 MG; Start 09/29/16 at 09:00; Status Future Hold Ondansetron HCl (Zofran Inj) 4 mg Q6H PRN IV NAUSEA AND/OR VOMITING Last administered on 10/31/16 04:17; Admin Dose 4 MG; Start 09/29/16 at 07:30 Acetaminophen 650 mg 650 mg Q6H PRN GTB PAIN AND OR ELEVATED TEMP Last administered on 10/25/16 20:50; Admin Dose 650 MG; Start 10/02/16 at 08:00 Metronidazole (Flagyl 500 Mg (Pmx)) 100 ml @ 100 mls/hr Q8 IVPB Last administered on 10/31/16 06:21; Admin Dose 100 MLS/HR; Start 10/02/16 at 14:00 Midodrine 10 mg 10 mg TID@,,17 PO Last administered on 10/06/16 17:15; Admin Dose 10 MG; Start 10/06/16 at 01:00; Status Future Hold Linezolid (Zyvox 600mg/D5W (Pmx)) 300 ml @ 300 mls/hr Q12 IVPB Last administered on 10/31/16 09:51; Admin Dose 300 MLS/HR; Start 10/06/16 at 21:00 Levothyroxine Sodium (Synthroid Iv) 12.5 mcg DAILY@06 IV Last administered on 06:21; Admin Dose 12.5 MCG; Start 10/07/16 at 06:00 Metoclopramide HCl (Reglan) 5 mg Q8 IV Last administered on 10/31/16 06:21; Admin Dose 5 MG; Start 10/06/16 at 22:00 Lansoprazole (Prevacid) 30 mg BID@06,18 GTB Last administered on 10/30/16 18: 19; Admin Dose 30 MG; Start 10/21/16 at 18:00 IV Flush 10 ml 10 ml PRN PRN IV IV PROTOCOL; Start 10/22/16 at 14:30 Norepinephrine 32 mg/Dextrose 250 ml @ 0.46 mls/hr TITRATE IV Last administered on 10/31/16 01:14; Admin Dose 14.06 MLS/HR; Start 10/29/16 at 08: 00 Phenylephrine HCl 80 mg/Dextrose 250 ml @ 0 mls/hr TITRATE IV Last administered on 10/31/16 09:54; Admin Dose 56.25 MLS/HR; Start 10/29/16 at 08: 00 Sodium Bicarbonate/ Dextrose (Na Bicarb/D5W) 1,000 ml @ 80 mls/hr [id number] IV Last administered on 10/31/16 05:30; Admin Dose 80 MLS/HR; Start 10/29/16 at 12 :30 Amiodarone HCl (Cordarone) 200 mg DAILY NGT ; Start 10/31/16 at 09:00 Ondansetron HCl 4 mg 4 mg Q6H PRN IV NAUSEA AND/OR VOMITING; Start 10/31/16 at 04:30 Vasopressin 60 unit/Dextrose 60 ml @ 1.2 mls/hr Q12H IV Last administered on 05:38; Admin Dose 1.2 MLS/HR; Start 10/31/16 at 05:30 Colistimethate Sodium/Sodium Chloride (Coly-Mycin/NS) 100 ml @ 200 mls/hr Q36H IVPB ; Start 10/31/16 at 20:00 MAGGIE DINERO MD Oct 31, 2016 11:16
[2016-10-31] MEDS: morphine 2 MG INJ IV PRN ×4 (12:45→23:00)
--- NOTE | 2016-10-31 14:27 | CONS ---
Date/Time of Note Date/Time of Note DATE: 10/31/16 TIME: 14:23 Assessment/Plan Assessment/Plan Additional Assessment/Plan Septic shock Preserved ejection fraction Moderate aortic stenosis Respiratory failure/Tracheostomy Coronary artery disease Anemia Paroxysmal atrial fibrillation -Continue amiodarone as heart rate tolerates. Antibiotics as per infectious disease. No AV darwin blocking agents at the current time given hypotension. Patient now on triple IV pressors and continued hypotension. Poor prognosis, discussed with nursing staff and family aware Consultation Date/Type/Reason Admit Date/Time Sep 24, 2016 at 03:19 Initial Consult Date 09/24/16 Type of Consultation: cv Referring Provider: FELIX BLAKE DO 24 HR Interval Summary Free Text/Dictation Patient seen and examined, started on third IV pressor with worsening blood pressure Exam/Review of Systems Vital Signs Vitals Vital Signs Date Time Temp Pulse Resp B/P Pulse Ox O2 Delivery O2 Flow Rate FiO2 10/31/16 12:00 97.1 96 26 49/39 98 Mechanical Ventilator 10/31/16 08:00 30 Intake and Output 10/30/16 10/30/16 10/31/16 15:00 23:00 07:00 Intake Total 1927.38 ml 1329.61 ml 787.05 ml Output Total 50 ml 115 ml 40 ml Balance 1877.38 ml 1214.61 ml 747.05 ml Exam Tachypneic, no response to verbal stimuli Head: normocephalic Neck: other (Tracheostomy) Respiratory: other (Coarse breath sounds bilaterally, no wheezing) Cardiovascular: other (S1-S2 heard), regular rate and rhythm Gastrointestinal: bowel sounds (Hypoactive), distended, soft Extremities: edema Results Result Diagram: 10/31/16 0400 10/31/16 0400 Results 24 hrs Laboratory Tests Test 10/31/16 04:00 10/31/16 06:00 White Blood Count 30.0 #H Red Blood Count 3.15 L Hemoglobin 9.0 L Hematocrit 28.6 L Mean Corpuscular Volume 90.8 Mean Corpuscular Hemoglobin 28.6 L Mean Corpuscular Hemoglobin Concent 31.5 L Red Cell Distribution Width 21.7 H Platelet Count 617 H Mean Platelet Volume 10.5 H Neutrophils % 81.3 H Lymphocytes % 6.3 L Monocytes % 7.3 Eosinophils % 3.6 Basophils % 0.3 Nucleated Red Blood Cells % 0.1 H Neutrophils # 24.4 H Lymphocytes # 1.9 Monocytes # 2.2 H Eosinophils # 1.1 H Basophils # 0.1 Nucleated Red Blood Cells # 0.0 Sodium Level 126 L Potassium Level 3.6 Chloride Level 98 Carbon Dioxide Level 12 L Anion Gap 20 H Blood Urea Nitrogen 29 H Creatinine 1.91 H Glucose Level 100 Calcium Level 7.0 L Blood Gas Specimen Source Blood arterial Arterial Blood Date Drawn 10/31/2016 6:00:37 AM Arterial Blood pH (Temp corrected) 7.271 *L Arterial Blood pCO2 (Temp correct) 19.1 L Arterial Blood pO2 (Temp corrected) 107.9 H Arterial Blood HCO3 8.6 *L Arterial Blood Base Excess -16.3 L Arterial Blood Oxygen Saturation 97.0 Ki Test ACCEPTAB Arterial Blood Gas Puncture Site Right Radial Arterial Blood Carboxyhemoglobin 0.3 Arterial Blood Methemoglobin 0.4 Blood Gas A-a O2 Differential 83.6 H Oxyhemoglobin Percent 96.3 Total Hemoglobin 10.3 L Blood Gas Temperature 37.0 Blood Gas Respiration Rate 16.0 Blood Gas Actual Respiration Rate 34 Blood Gas Modality VENT - AC FiO2 30.0 Blood Gas Tidal Volume 500.0 Blood Gas Low PEEP Setting 5.0 Blood Gas Critical Value Read Back [place]EL[place] Blood Gas Notified Whom [place] Blood Gas Notified Time 10/31/2016 6:07:52 AM Medications Medications Current Medications Acetaminophen (Tylenol Supp) 650 mg Q4H PRN [place] PAIN LEVEL 1-3 OR FEVER; Start 09/24/16 at 03:00 Eye Lubricant (Artificial Tears Oph) 1 drop TID BOTH EYES Last administered on 10/31/16 13:02; Admin Dose 1 DROP; Start 09/24/16 at 09:00 Sodium Hypochlorite (Dakin'S (1/4 Strength)) 1 applic BID IRR Last administered on 10/31/16 09:52; Admin Dose 1 APPLIC; Start 09/24/16 at 21:00 Collagenase (Santyl) 1 applic DAILY TOP Last administered on 10/31/16 09:52; Admin Dose 1 APPLIC; Start 09/24/16 at 20:30 Miscellaneous Information 1 ea NOTE XX ; Start 09/24/16 at 21:00 Glucose (Glutose) 15 gm Q15M PRN PO DECREASED GLUCOSE; Start 09/24/16 at 21:00 Glucose (Glutose) 22.5 gm Q15M PRN PO DECREASED GLUCOSE; Start 09/24/16 at 21: 00 Dextrose (D50w Syringe) 25 ml Q15M PRN IV DECREASED GLUCOSE; Start 09/24/16 at 21:00 Dextrose (D50w Syringe) 50 ml Q15M PRN IV DECREASED GLUCOSE; Start 09/24/16 at 21:00 Glucagon (Glucagen) 1 mg Q15M PRN IM DECREASED GLUCOSE; Start 09/24/16 at 21:00 Glucose (Glutose) 15 gm Q15M PRN BUCCAL DECREASED GLUCOSE; Start 09/24/16 at 21 :00 Vancomycin HCl (Vancomycin Oral Syringe) 250 mg Q6 PO Last administered on 17:15; Admin Dose 250 MG; Start 09/26/16 at 18:00; Status Future Hold Lactobacillus Acidoph/Bulgaricus (Floranex) 1 tab TID PO Last administered on 13:22; Admin Dose 1 TAB; Start 09/26/16 at 21:00; Status Future Hold Atorvastatin Calcium (Lipitor) 20 mg QHS GTB Last administered on 10/05/16 21: 42; Admin Dose 20 MG; Start 09/28/16 at 21:00; Status Future Hold Finasteride (Proscar) 5 mg DAILY GTB Last administered on 10/06/16 09:12; Admin Dose 5 MG; Start 09/29/16 at 09:00; Status Future Hold Multivitamins Therapeutic (Theragran) 1 tab DAILY GTB Last administered on 09:12; Admin Dose 1 TAB; Start 09/29/16 at 09:00; Status Future Hold Zinc Sulfate (Zinc Sulfate) 220 mg DAILY NGT Last administered on 10/06/16 09: 13; Admin Dose 220 MG; Start 09/29/16 at 09:00; Status Future Hold Ondansetron HCl (Zofran Inj) 4 mg Q6H PRN IV NAUSEA AND/OR VOMITING Last administered on 10/31/16 04:17; Admin Dose 4 MG; Start 09/29/16 at 07:30 Acetaminophen 650 mg 650 mg Q6H PRN GTB PAIN AND OR ELEVATED TEMP Last administered on 10/25/16 20:50; Admin Dose 650 MG; Start 10/02/16 at 08:00 Metronidazole (Flagyl 500 Mg (Pmx)) 100 ml @ 100 mls/hr Q8 IVPB Last administered on 10/31/16 06:21; Admin Dose 100 MLS/HR; Start 10/02/16 at 14:00 Midodrine 10 mg 10 mg TID@,,17 PO Last administered on 10/06/16 17:15; Admin Dose 10 MG; Start 10/06/16 at 01:00; Status Future Hold Linezolid (Zyvox 600mg/D5W (Pmx)) 300 ml @ 300 mls/hr Q12 IVPB Last administered on 10/31/16 09:51; Admin Dose 300 MLS/HR; Start 10/06/16 at 21:00 Levothyroxine Sodium (Synthroid Iv) 12.5 mcg DAILY@06 IV Last administered on 06:21; Admin Dose 12.5 MCG; Start 10/07/16 at 06:00 Metoclopramide HCl (Reglan) 5 mg Q8 IV Last administered on 10/31/16 06:21; Admin Dose 5 MG; Start 10/06/16 at 22:00 Lansoprazole (Prevacid) 30 mg BID@06,18 GTB Last administered on 10/30/16 18: 19; Admin Dose 30 MG; Start 10/21/16 at 18:00 IV Flush 10 ml 10 ml PRN PRN IV IV PROTOCOL; Start 10/22/16 at 14:30 Norepinephrine 32 mg/Dextrose 250 ml @ 0.46 mls/hr TITRATE IV Last administered on 10/31/16 01:14; Admin Dose 14.06 MLS/HR; Start 10/29/16 at 08: 00 Phenylephrine HCl 80 mg/Dextrose 250 ml @ 0 mls/hr TITRATE IV Last administered on 10/31/16 09:54; Admin Dose 56.25 MLS/HR; Start 10/29/16 at 08: 00 Sodium Bicarbonate/ Dextrose (Na Bicarb/D5W) 1,000 ml @ 80 mls/hr [id number] IV Last administered on 10/31/16 05:30; Admin Dose 80 MLS/HR; Start 10/29/16 at 12 :30 Amiodarone HCl (Cordarone) 200 mg DAILY NGT ; Start 10/31/16 at 09:00 Ondansetron HCl 4 mg 4 mg Q6H PRN IV NAUSEA AND/OR VOMITING; Start 10/31/16 at 04:30 Vasopressin 60 unit/Dextrose 60 ml @ 1.2 mls/hr Q12H IV Last administered on 05:38; Admin Dose 1.2 MLS/HR; Start 10/31/16 at 05:30 Colistimethate Sodium/Sodium Chloride (Coly-Mycin/NS) 100 ml @ 200 mls/hr Q36H IVPB ; Start 10/31/16 at 20:00 Morphine Sulfate (morphine) 2 mg Q2H PRN IV PAIN Last administered on 12:45; Admin Dose 2 MG; Start 10/31/16 at 12:00 Ryder Wild DO Oct 31, 2016 14:27
--- NOTE | 2016-10-31 15:39 | CONS ---
Date/Time of Note Date/Time of Note DATE: 10/31/16 TIME: 15:35 Assessment/Plan Assessment/Plan Chief Complaint/Hosp Course ID PROGRESS NOTE TOTAL ABX DAY # => Colistin. Zyvox Flagyl. s/p Voriconazole. 24H INTERVAL SUMMARY => * Obtunded on the Vent -- oral secretions w/trach gurgling - requires frequent suctioning. 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 s/p Glabrata UTI 10/07/16 PHYSICAL EXAMINATION: GENERAL: Chronic ill, vented, contracted hands, generalized dependent edema HEENT: Unremarkable NECK: Trach -> Secure to Vent CHEST: Equal chest rise bilaterally, without dyspnea on observation HEART: Pulse RRR ABDOMEN: Soft/peg EXTREMITIES: Warm SKIN: See hard chart skin assessment= multiple decubs ID ASSESSMENT: 81 yo M w/PMHx CVA w/Dementia, contracted extremities, VDRF, Peg admit with: 1. Admited w/Severe sepsis with shock=> RESOLVED was up on TELE-> TNS back to ICU 10/26/16 for Afib W/RVR * s/p Status post Bacteroides fragilis and Escherichia coli bacteremia on admission/Escherichia coli urinary tract infection * PICC Line DC 10/21 -> New PICC 10/22 2. Afib w/RVR s/p Rapid Response TNS back to ICU 10/26/16 am = cards following HR 105 today 3. Healthcare-associated pneumonia. 4. Anemia w/concern for Probable GI bleed (Coffee ground drainage from G tube) 5. Multiple infected decubitus on admission w/necrosis and deep tissue injury= > Polymicrobial MDRO * Multiple wounds with left trochanteric osteomyelitis. 6. Persistent diarrhea, stool for Clostridium difficile negative. 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 7. Coronary artery disease and history of non-ST elevation [place] 8. Renal insufficiency -> s/p ANGELICA resolved (+)MRSA Nares =>s/p Bactroban INVASIVES: Trach, Peg, Cee, Rectal Tube, PICC 10/22/2016. ABX ALLERGY: KNDA CURRENT ABX: => Colistin. Zyvox Flagyl s/p Voriconazole. ID RECOMMENDATIONS: 1. Continue current ABX => due to increase infiltrate on CXR 10/26/16 with recurrent sepsis * Patient has become a breeding ground for MDRO 2. Remains on long-term IV ABX for multiple infected wounds including concern for osteomyelitis, not a surgical candidate . . . . . . . . Problems: Consultation Date/Type/Reason Admit Date/Time Sep 24, 2016 at 03:19 Initial Consult Date 09/24/16 Type of Consultation: cv Referring Provider: FELIX BLAKE DO Exam/Review of Systems Vital Signs Vitals Vital Signs Date Time Temp Pulse Resp B/P Pulse Ox O2 Delivery O2 Flow Rate FiO2 10/31/16 15:15 92 30 49/22 97 Mechanical Ventilator 10/31/16 12:00 97.1 10/31/16 08:00 30 Intake and Output 10/30/16 10/30/16 10/31/16 15:00 23:00 07:00 Intake Total 1927.38 ml 1329.61 ml 787.05 ml Output Total 50 ml 115 ml 40 ml Balance 1877.38 ml 1214.61 ml 747.05 ml Results Result Diagram: 10/31/16 0400 10/31/16 0400 Results 24 hrs Laboratory Tests Test 10/31/16 04:00 10/31/16 06:00 White Blood Count 30.0 #H Red Blood Count 3.15 L Hemoglobin 9.0 L Hematocrit 28.6 L Mean Corpuscular Volume 90.8 Mean Corpuscular Hemoglobin 28.6 L Mean Corpuscular Hemoglobin Concent 31.5 L Red Cell Distribution Width 21.7 H Platelet Count 617 H Mean Platelet Volume 10.5 H Neutrophils % 81.3 H Lymphocytes % 6.3 L Monocytes % 7.3 Eosinophils % 3.6 Basophils % 0.3 Nucleated Red Blood Cells % 0.1 H Neutrophils # 24.4 H Lymphocytes # 1.9 Monocytes # 2.2 H Eosinophils # 1.1 H Basophils # 0.1 Nucleated Red Blood Cells # 0.0 Sodium Level 126 L Potassium Level 3.6 Chloride Level 98 Carbon Dioxide Level 12 L Anion Gap 20 H Blood Urea Nitrogen 29 H Creatinine 1.91 H Glucose Level 100 Calcium Level 7.0 L Blood Gas Specimen Source Blood arterial Arterial Blood Date Drawn 10/31/2016 6:00:37 AM Arterial Blood pH (Temp corrected) 7.271 *L Arterial Blood pCO2 (Temp correct) 19.1 L Arterial Blood pO2 (Temp corrected) 107.9 H Arterial Blood HCO3 8.6 *L Arterial Blood Base Excess -16.3 L Arterial Blood Oxygen Saturation 97.0 Ki Test ACCEPTAB Arterial Blood Gas Puncture Site Right Radial Arterial Blood Carboxyhemoglobin 0.3 Arterial Blood Methemoglobin 0.4 Blood Gas A-a O2 Differential 83.6 H Oxyhemoglobin Percent 96.3 Total Hemoglobin 10.3 L Blood Gas Temperature 37.0 Blood Gas Respiration Rate 16.0 Blood Gas Actual Respiration Rate 34 Blood Gas Modality VENT - AC FiO2 30.0 Blood Gas Tidal Volume 500.0 Blood Gas Low PEEP Setting 5.0 Blood Gas Critical Value Read Back [place] DANIEL[place] Blood Gas Notified Whom [place] Blood Gas Notified Time 10/31/2016 6:07:52 AM Medications Medications Current Medications Acetaminophen (Tylenol Supp) 650 mg Q4H PRN [place] PAIN LEVEL 1-3 OR FEVER; Start 09/24/16 at 03:00 Eye Lubricant (Artificial Tears Oph) 1 drop TID BOTH EYES Last administered on 10/31/16 13:02; Admin Dose 1 DROP; Start 09/24/16 at 09:00 Sodium Hypochlorite (Dakin'S (1/4 Strength)) 1 applic BID IRR Last administered on 10/31/16 09:52; Admin Dose 1 APPLIC; Start 09/24/16 at 21:00 Collagenase (Santyl) 1 applic DAILY TOP Last administered on 10/31/16 09:52; Admin Dose 1 APPLIC; Start 09/24/16 at 20:30 Miscellaneous Information 1 ea NOTE XX ; Start 09/24/16 at 21:00 Glucose (Glutose) 15 gm Q15M PRN PO DECREASED GLUCOSE; Start 09/24/16 at 21:00 Glucose (Glutose) 22.5 gm Q15M PRN PO DECREASED GLUCOSE; Start 09/24/16 at 21: 00 Dextrose (D50w Syringe) 25 ml Q15M PRN IV DECREASED GLUCOSE; Start 09/24/16 at 21:00 Dextrose (D50w Syringe) 50 ml Q15M PRN IV DECREASED GLUCOSE; Start 09/24/16 at 21:00 Glucagon (Glucagen) 1 mg Q15M PRN IM DECREASED GLUCOSE; Start 09/24/16 at 21:00 Glucose (Glutose) 15 gm Q15M PRN BUCCAL DECREASED GLUCOSE; Start 09/24/16 at 21 :00 Vancomycin HCl (Vancomycin Oral Syringe) 250 mg Q6 PO Last administered on 17:15; Admin Dose 250 MG; Start 09/26/16 at 18:00; Status Future Hold Lactobacillus Acidoph/Bulgaricus (Floranex) 1 tab TID PO Last administered on 13:22; Admin Dose 1 TAB; Start 09/26/16 at 21:00; Status Future Hold Atorvastatin Calcium (Lipitor) 20 mg QHS GTB Last administered on 10/05/16 21: 42; Admin Dose 20 MG; Start 09/28/16 at 21:00; Status Future Hold Finasteride (Proscar) 5 mg DAILY GTB Last administered on 10/06/16 09:12; Admin Dose 5 MG; Start 09/29/16 at 09:00; Status Future Hold Multivitamins Therapeutic (Theragran) 1 tab DAILY GTB Last administered on 09:12; Admin Dose 1 TAB; Start 09/29/16 at 09:00; Status Future Hold Zinc Sulfate (Zinc Sulfate) 220 mg DAILY NGT Last administered on 10/06/16 09: 13; Admin Dose 220 MG; Start 09/29/16 at 09:00; Status Future Hold Ondansetron HCl (Zofran Inj) 4 mg Q6H PRN IV NAUSEA AND/OR VOMITING Last administered on 10/31/16 04:17; Admin Dose 4 MG; Start 09/29/16 at 07:30 Acetaminophen 650 mg 650 mg Q6H PRN GTB PAIN AND OR ELEVATED TEMP Last administered on 10/25/16 20:50; Admin Dose 650 MG; Start 10/02/16 at 08:00 Metronidazole (Flagyl 500 Mg (Pmx)) 100 ml @ 100 mls/hr Q8 IVPB Last administered on 10/31/16 15:06; Admin Dose 100 MLS/HR; Start 10/02/16 at 14:00 Midodrine 10 mg 10 mg TID@,,17 PO Last administered on 10/06/16 17:15; Admin Dose 10 MG; Start 10/06/16 at 01:00; Status Future Hold Linezolid (Zyvox 600mg/D5W (Pmx)) 300 ml @ 300 mls/hr Q12 IVPB Last administered on 10/31/16 09:51; Admin Dose 300 MLS/HR; Start 10/06/16 at 21:00 Levothyroxine Sodium (Synthroid Iv) 12.5 mcg DAILY@06 IV Last administered on 06:21; Admin Dose 12.5 MCG; Start 10/07/16 at 06:00 Metoclopramide HCl (Reglan) 5 mg Q8 IV Last administered on 10/31/16 15:06; Admin Dose 5 MG; Start 10/06/16 at 22:00 Lansoprazole (Prevacid) 30 mg BID@06,18 GTB Last administered on 10/30/16 18: 19; Admin Dose 30 MG; Start 10/21/16 at 18:00 IV Flush 10 ml 10 ml PRN PRN IV IV PROTOCOL; Start 10/22/16 at 14:30 Norepinephrine 32 mg/Dextrose 250 ml @ 0.46 mls/hr TITRATE IV Last administered on 10/31/16 01:14; Admin Dose 14.06 MLS/HR; Start 10/29/16 at 08: 00 Phenylephrine HCl 80 mg/Dextrose 250 ml @ 0 mls/hr TITRATE IV Last administered on 10/31/16 09:54; Admin Dose 56.25 MLS/HR; Start 10/29/16 at 08: 00 Sodium Bicarbonate/ Dextrose (Na Bicarb/D5W) 1,000 ml @ 80 mls/hr [id number] IV Last administered on 10/31/16 05:30; Admin Dose 80 MLS/HR; Start 10/29/16 at 12 :30 Amiodarone HCl (Cordarone) 200 mg DAILY NGT ; Start 10/31/16 at 09:00 Ondansetron HCl 4 mg 4 mg Q6H PRN IV NAUSEA AND/OR VOMITING; Start 10/31/16 at 04:30 Vasopressin 60 unit/Dextrose 60 ml @ 1.2 mls/hr Q12H IV Last administered on 05:38; Admin Dose 1.2 MLS/HR; Start 10/31/16 at 05:30 Colistimethate Sodium/Sodium Chloride (Coly-Mycin/NS) 100 ml @ 200 mls/hr Q36H IVPB ; Start 10/31/16 at 20:00 Morphine Sulfate (morphine) 2 mg Q2H PRN IV PAIN Last administered on t 15:06; Admin Dose 2 MG; Start 10/31/16 at 12:00 KUSHAL HOUSE NP Oct 31, 2016 15:39
--- NOTE | 2016-10-31 15:42 | PN ---
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 Patient has poor prognosis is chronically trached and has a PEG and has multiple decubitus ulcers at this time Continue wound care Continue PEG tube feeding (3) Septic shock secondary to multiple decubitus ulcers -Continue pressor support and antibiotics (4) Respiratory failure, chronic Continue vent support (5) Coronary artery disease-Stable CODE STATUS-DNR Prophylaxis: SCDs Problems: Subjective 24 Hr Interval Summary Subjective hx not possible: pt non-verbal Exam/Review of Systems Vital Signs Vitals Vital Signs Date Time Temp Pulse Resp B/P Pulse Ox O2 Delivery O2 Flow Rate FiO2 10/31/16 15:15 92 30 49/22 97 Mechanical Ventilator 10/31/16 12:00 97.1 10/31/16 08:00 30 Intake and Output 10/30/16 10/30/16 10/31/16 15:00 23:00 07:00 Intake Total 1927.38 ml 1329.61 ml 787.05 ml Output Total 50 ml 115 ml 40 ml Balance 1877.38 ml 1214.61 ml 747.05 ml Exam Constitutional: non-verbal Respiratory: clear to auscultation Cardiovascular: regular rate and rhythm Gastrointestinal: soft, No distended Musculoskeletal: No nl extremities to inspection Results Result Diagram: 10/31/16 0400 10/31/16 0400 Results 24 hrs Laboratory Tests Test 10/31/16 04:00 10/31/16 06:00 White Blood Count 30.0 #H Red Blood Count 3.15 L Hemoglobin 9.0 L Hematocrit 28.6 L Mean Corpuscular Volume 90.8 Mean Corpuscular Hemoglobin 28.6 L Mean Corpuscular Hemoglobin Concent 31.5 L Red Cell Distribution Width 21.7 H Platelet Count 617 H Mean Platelet Volume 10.5 H Neutrophils % 81.3 H Lymphocytes % 6.3 L Monocytes % 7.3 Eosinophils % 3.6 Basophils % 0.3 Nucleated Red Blood Cells % 0.1 H Neutrophils # 24.4 H Lymphocytes # 1.9 Monocytes # 2.2 H Eosinophils # 1.1 H Basophils # 0.1 Nucleated Red Blood Cells # 0.0 Sodium Level 126 L Potassium Level 3.6 Chloride Level 98 Carbon Dioxide Level 12 L Anion Gap 20 H Blood Urea Nitrogen 29 H Creatinine 1.91 H Glucose Level 100 Calcium Level 7.0 L Blood Gas Specimen Source Blood arterial Arterial Blood Date Drawn 10/31/2016 6:00:37 AM Arterial Blood pH (Temp corrected) 7.271 *L Arterial Blood pCO2 (Temp correct) 19.1 L Arterial Blood pO2 (Temp corrected) 107.9 H Arterial Blood HCO3 8.6 *L Arterial Blood Base Excess -16.3 L Arterial Blood Oxygen Saturation 97.0 Ki Test ACCEPTAB Arterial Blood Gas Puncture Site Right Radial Arterial Blood Carboxyhemoglobin 0.3 Arterial Blood Methemoglobin 0.4 Blood Gas A-a O2 Differential 83.6 H Oxyhemoglobin Percent 96.3 Total Hemoglobin 10.3 L Blood Gas Temperature 37.0 Blood Gas Respiration Rate 16.0 Blood Gas Actual Respiration Rate 34 Blood Gas Modality VENT - AC FiO2 30.0 Blood Gas Tidal Volume 500.0 Blood Gas Low PEEP Setting 5.0 Blood Gas Critical Value Read Back ORLANDO DANIELSON Blood Gas Notified Whom MA Blood Gas Notified Time 10/31/2016 6:07:52 AM Medications Medications Current Medications Acetaminophen (Tylenol Supp) 650 mg Q4H PRN [place] PAIN LEVEL 1-3 OR FEVER; Start 09/24/16 at 03:00 Eye Lubricant (Artificial Tears Oph) 1 drop TID BOTH EYES Last administered on 10/31/16 13:02; Admin Dose 1 DROP; Start 09/24/16 at 09:00 Sodium Hypochlorite (Dakin'S (1/4 Strength)) 1 applic BID IRR Last administered on 10/31/16 09:52; Admin Dose 1 APPLIC; Start 09/24/16 at 21:00 Collagenase (Santyl) 1 applic DAILY TOP Last administered on 10/31/16 09:52; Admin Dose 1 APPLIC; Start 09/24/16 at 20:30 Miscellaneous Information 1 ea NOTE XX ; Start 09/24/16 at 21:00 Glucose (Glutose) 15 gm Q15M PRN PO DECREASED GLUCOSE; Start 09/24/16 at 21:00 Glucose (Glutose) 22.5 gm Q15M PRN PO DECREASED GLUCOSE; Start 09/24/16 at 21: 00 Dextrose (D50w Syringe) 25 ml Q15M PRN IV DECREASED GLUCOSE; Start 09/24/16 at 21:00 Dextrose (D50w Syringe) 50 ml Q15M PRN IV DECREASED GLUCOSE; Start 09/24/16 at 21:00 Glucagon (Glucagen) 1 mg Q15M PRN IM DECREASED GLUCOSE; Start 09/24/16 at 21:00 Glucose (Glutose) 15 gm Q15M PRN BUCCAL DECREASED GLUCOSE; Start 09/24/16 at 21 :00 Vancomycin HCl (Vancomycin Oral Syringe) 250 mg Q6 PO Last administered on 17:15; Admin Dose 250 MG; Start 09/26/16 at 18:00; Status Future Hold Lactobacillus Acidoph/Bulgaricus (Floranex) 1 tab TID PO Last administered on 13:22; Admin Dose 1 TAB; Start 09/26/16 at 21:00; Status Future Hold Atorvastatin Calcium (Lipitor) 20 mg QHS GTB Last administered on 10/05/16 21: 42; Admin Dose 20 MG; Start 09/28/16 at 21:00; Status Future Hold Finasteride (Proscar) 5 mg DAILY GTB Last administered on 10/06/16 09:12; Admin Dose 5 MG; Start 09/29/16 at 09:00; Status Future Hold Multivitamins Therapeutic (Theragran) 1 tab DAILY GTB Last administered on 09:12; Admin Dose 1 TAB; Start 09/29/16 at 09:00; Status Future Hold Zinc Sulfate (Zinc Sulfate) 220 mg DAILY NGT Last administered on 10/06/16 09: 13; Admin Dose 220 MG; Start 09/29/16 at 09:00; Status Future Hold Ondansetron HCl (Zofran Inj) 4 mg Q6H PRN IV NAUSEA AND/OR VOMITING Last administered on 10/31/16 04:17; Admin Dose 4 MG; Start 09/29/16 at 07:30 Acetaminophen 650 mg 650 mg Q6H PRN GTB PAIN AND OR ELEVATED TEMP Last administered on 10/25/16 20:50; Admin Dose 650 MG; Start 10/02/16 at 08:00 Metronidazole (Flagyl 500 Mg (Pmx)) 100 ml @ 100 mls/hr Q8 IVPB Last administered on 10/31/16 15:06; Admin Dose 100 MLS/HR; Start 10/02/16 at 14:00 Midodrine 10 mg 10 mg TID@,,17 PO Last administered on 10/06/16 17:15; Admin Dose 10 MG; Start 10/06/16 at 01:00; Status Future Hold Linezolid (Zyvox 600mg/D5W (Pmx)) 300 ml @ 300 mls/hr Q12 IVPB Last administered on 10/31/16 09:51; Admin Dose 300 MLS/HR; Start 10/06/16 at 21:00 Levothyroxine Sodium (Synthroid Iv) 12.5 mcg DAILY@06 IV Last administered on 06:21; Admin Dose 12.5 MCG; Start 10/07/16 at 06:00 Metoclopramide HCl (Reglan) 5 mg Q8 IV Last administered on 10/31/16 15:06; Admin Dose 5 MG; Start 10/06/16 at 22:00 Lansoprazole (Prevacid) 30 mg BID@,18 GTB Last administered on 10/30/16 18: 19; Admin Dose 30 MG; Start 10/21/16 at 18:00 IV Flush 10 ml 10 ml PRN PRN IV IV PROTOCOL; Start 10/22/16 at 14:30 Norepinephrine 32 mg/Dextrose 250 ml @ 0.46 mls/hr TITRATE IV Last administered on 10/31/16 01:14; Admin Dose 14.06 MLS/HR; Start 10/29/16 at 08: 00 Phenylephrine HCl 80 mg/Dextrose 250 ml @ 0 mls/hr TITRATE IV Last administered on 10/31/16 09:54; Admin Dose 56.25 MLS/HR; Start 10/29/16 at 08: 00 Sodium Bicarbonate/ Dextrose (Na Bicarb/D5W) 1,000 ml @ 80 mls/hr [id number] IV Last administered on 10/31/16 05:30; Admin Dose 80 MLS/HR; Start 10/29/16 at 12 :30 Amiodarone HCl (Cordarone) 200 mg DAILY NGT ; Start 10/31/16 at 09:00 Ondansetron HCl 4 mg 4 mg Q6H PRN IV NAUSEA AND/OR VOMITING; Start 10/31/16 at 04:30 Vasopressin 60 unit/Dextrose 60 ml @ 1.2 mls/hr Q12H IV Last administered on 05:38; Admin Dose 1.2 MLS/HR; Start 10/31/16 at 05:30 Colistimethate Sodium/Sodium Chloride (Coly-Mycin/NS) 100 ml @ 200 mls/hr Q36H IVPB ; Start 10/31/16 at 20:00 Morphine Sulfate (morphine) 2 mg Q2H PRN IV PAIN Last administered on 15:06; Admin Dose 2 MG; Start 10/31/16 at 12:00 KEVYN GARNETT Oct 31, 2016 15:42
--- NOTE | 2016-10-31 17:31 | PN ---
DATE: 10/31/2016 SUBJECTIVE: Patient is unable to give any complaints himself, but he does have a very large penoscr otal swelling and edema. OBJECTIVE: VITAL SIGNS: Temperature is 96.7. The blood pressure 49/75, pulse is 92. ABDOMEN: Distended.. EXTREMITIES: Lower extremities are very contracted. The Cee catheter is draining blood-tinged ur ine. The urine output has been low and the scrotum and the penis are very swollen and he does have contractures of the lower extremities, especially at the knee level. It is very difficult to separa te her legs apart. LABORATORY DATA: CBC shows a white count was 30,000, hemoglobin 9.0, hematocrit 28.6, platelet coun t 617,000. The BUN is 29, creatinine 1.91, sodium 136, potassium 3.6, chloride 98, CO2 of 12. PLAN: To continue present treatment and basically keep the scrotum and the penis elevated on a towe l all the time and keep the Cee catheter in. Dictated By: MISHEL WOODWARD/ELIZABETH Conf#: [id number] DID#: [id number]
[2016-10-31] MEDS ORDERED: COLISTIMETHATE 100 MG in SOD CHLORIDE 0.9% 100 ML IVPB SCH (20:00)
[2016-11-01] VITALS (44 sets, daily range): BP systolic 42–65; BP diastolic 17–44; PULSE 0–91; RESP 20–28
[2016-11-01] MEDS: PHENYLephrine 80 MG in DEXTROSE 5% 242 ML IV SCH ×2 (02:15→06:54)
[2016-11-01] MEDS: IPRATROPIUM (HFA) 12.9 GM INHALER INH SCH ×2 (02:41→07:27)
[2016-11-01] MEDS: ALBUTEROL 18 GM INHALER INH SCH ×2 (02:42→07:27)
[2016-11-01] MEDS: VASOPRESSIN 60 UNIT in DEXTROSE 5% 57 ML IV SCH (05:29)
[2016-11-01] MEDS: LEVOTHYROXINE 100 MCG VIAL IV SCH (05:59)
[2016-11-01] MEDS: metroNIDAZOLE 500 MG/NS (PMX) 100 ML IVPB SCH (05:59)
[2016-11-01] MEDS: METOCLOPRAMIDE 10 MG INJ IV SCH (05:59)
[2016-11-01] MEDS: LANSOPRAZOLE 30 MG CAP GTB SCH (06:00)
[2016-11-01] MEDS: SODIUM HYPOCHLORITE 0.125% 473 ML BTL IRR SCH (08:30)
[2016-11-01] MEDS: LINEZOLID 600 MG/D5W (PMX) 300 ML IVPB SCH (08:30)
[2016-11-01] MEDS: COLLAGENASE 30 GM TUBE TOP SCH (08:30)
[2016-11-01] MEDS: ARTIFICIAL TEARS 15 ML OPH BOTH EYES SCH (08:34)
--- NOTE | 2016-11-01 09:23 | CONS ---
Date/Time of Note Date/Time of Note DATE: 11/01/16 TIME: 09:20 Assessment/Plan Assessment/Plan Additional Assessment/Plan Ventilator setting; AC of 20, tidal volume 500, PEEP of 5, 60% FiO2. Patient currently on Levophed at 20 mics per minute, vasopressin 10 4 U/min, phenylephrine drip at 300 mics per minute. Assessment recommendations; 1. Patient admitted for severe sepsis source likely is multiple sacral decubitus ulcers. Patient currently on broad-spectrum antibiotic coverage. 2. Chronic respiratory failure due to advanced multi-infarct dementia. 3. Left lower lobe pneumonia. 4. History of BPH and hypothyroidism. 5. Worsening hypoxemia and profound shock. Continue current supportive care. Patient's prognosis is dismal. Family has appropriately made him a DNR. About 35 minutes of critical care time was spent evaluating the patient. Consultation Date/Type/Reason Admit Date/Time Sep 24, 2016 at 03:19 Initial Consult Date 09/24/16 Type of Consultation: Pulmonary/critical care Referring Provider: FELIX BLAKE DO 24 HR Interval Summary Free Text/Dictation Patient condition remains critical. Patient remains profoundly hypotensive despite being on combination high-dose pressor support. General exam; elderly male, on ventilator via tracheostomy unresponsive. Exam/Review of Systems Vital Signs Vitals Vital Signs Date Time Temp Pulse Resp B/P Pulse Ox O2 Delivery O2 Flow Rate FiO2 11/01/16 08:30 65 23 42/30 Mechanical Ventilator 11/01/16 08:00 95.2 11/01/16 07:00 79 11/01/16 05:58 60 Intake and Output 10/31/16 10/31/16 11/01/16 15:00 23:00 07:00 Intake Total 1467.83 ml 1504.98 ml 1238.7 ml Output Total 50 ml 0 ml 75 ml Balance 1417.83 ml 1504.98 ml 1163.7 ml Exam HEENT examination; supple neck, positive JVD. No lymphadenopathy. Midline trachea. No thyromegaly. Patient has multiple carious teeth. Tracheostomy placed with clean insertion site. Chest examination; diminished but clear vessel. S1-S2 audible, no murmurs. Regular rhythm. Abdomen examination; soft, G-tube in place. Abdomen is nondistended. Bowel sounds are sluggish. Extremity examination; no peripheral edema. Patient has contractures involving all 4 extremities. Back examination reveals a dressing applied over the sacrum. [employer]OM[employer] ELECT[employer]IC[employer] examination; patient remains unresponsive. Results Result Diagram: 10/31/1639910/31/16399 Medications Medications Current Medications Acetaminophen (Tylenol Supp) 650 mg Q4H PRN [place] PAIN LEVEL 1-3 OR FEVER; Start 09/24/16 at 03:00 Eye Lubricant (Artificial Tears Oph) 1 drop TID BOTH EYES Last administered on 11/01/16 08:34; Admin Dose 1 DROP; Start 09/24/16 at 09:00 Sodium Hypochlorite (Dakin'S (1/4 Strength)) 1 applic BID IRR Last administered on 11/01/16 08:30; Admin Dose 1 APPLIC; Start 09/24/16 at 21:00 Collagenase (Santyl) 1 applic DAILY TOP Last administered on 11/01/16 08:30; Admin Dose 1 APPLIC; Start 09/24/16 at 20:30 Miscellaneous Information 1 ea NOTE XX ; Start 09/24/16 at 21:00 Glucose (Glutose) 15 gm Q15M PRN PO DECREASED GLUCOSE; Start 09/24/16 at 21:00 Glucose (Glutose) 22.5 gm Q15M PRN PO DECREASED GLUCOSE; Start 09/24/16 at 21: 00 Dextrose (D50w Syringe) 25 ml Q15M PRN IV DECREASED GLUCOSE; Start 09/24/16 at 21:00 Dextrose (D50w Syringe) 50 ml Q15M PRN IV DECREASED GLUCOSE; Start 09/24/16 at 21:00 Glucagon (Glucagen) 1 mg Q15M PRN IM DECREASED GLUCOSE; Start 09/24/16 at 21:00 Glucose (Glutose) 15 gm Q15M PRN BUCCAL DECREASED GLUCOSE; Start 09/24/16 at 21 :00 Vancomycin HCl (Vancomycin Oral Syringe) 250 mg Q6 PO Last administered on 17:15; Admin Dose 250 MG; Start 09/26/16 at 18:00; Status Future Hold Lactobacillus Acidoph/Bulgaricus (Floranex) 1 tab TID PO Last administered on 13:22; Admin Dose 1 TAB; Start 09/26/16 at 21:00; Status Future Hold Atorvastatin Calcium (Lipitor) 20 mg QHS GTB Last administered on 10/05/16 21: 42; Admin Dose 20 MG; Start 09/28/16 at 21:00; Status Future Hold Finasteride (Proscar) 5 mg DAILY GTB Last administered on 10/06/16 09:12; Admin Dose 5 MG; Start 09/29/16 at 09:00; Status Future Hold Multivitamins Therapeutic (Theragran) 1 tab DAILY GTB Last administered on 09:12; Admin Dose 1 TAB; Start 09/29/16 at 09:00; Status Future Hold Zinc Sulfate (Zinc Sulfate) 220 mg DAILY NGT Last administered on 10/06/16 09: 13; Admin Dose 220 MG; Start 09/29/16 at 09:00; Status Future Hold Ondansetron HCl (Zofran Inj) 4 mg Q6H PRN IV NAUSEA AND/OR VOMITING Last administered on 10/31/16 04:17; Admin Dose 4 MG; Start 09/29/16 at 07:30 Acetaminophen 650 mg 650 mg Q6H PRN GTB PAIN AND OR ELEVATED TEMP Last administered on 10/25/16 20:50; Admin Dose 650 MG; Start 10/02/16 at 08:00 Metronidazole (Flagyl 500 Mg (Pmx)) 100 ml @ 100 mls/hr Q8 IVPB Last administered on 11/01/16 05:59; Admin Dose 100 MLS/HR; Start 10/02/16 at 14:00 Midodrine 10 mg 10 mg TID@,,17 PO Last administered on 10/06/16 17:15; Admin Dose 10 MG; Start 10/06/16 at 01:00; Status Future Hold Linezolid (Zyvox 600mg/D5W (Pmx)) 300 ml @ 300 mls/hr Q12 IVPB Last administered on 11/01/16 08:30; Admin Dose 300 MLS/HR; Start 10/06/16 at 21:00 Levothyroxine Sodium (Synthroid Iv) 12.5 mcg DAILY@06 IV Last administered on 05:59; Admin Dose 12.5 MCG; Start 10/07/16 at 06:00 Metoclopramide HCl (Reglan) 5 mg Q8 IV Last administered on 11/01/16 05:59; Admin Dose 5 MG; Start 10/06/16 at 22:00 Lansoprazole (Prevacid) 30 mg BID@06,18 GTB Last administered on 10/30/16 18: 19; Admin Dose 30 MG; Start 10/21/16 at 18:00 IV Flush 10 ml 10 ml PRN PRN IV IV PROTOCOL; Start 10/22/16 at 14:30 Norepinephrine 32 mg/Dextrose 250 ml @ 0.46 mls/hr TITRATE IV Last administered on 10/31/16 18:57; Admin Dose 14.06 MLS/HR; Start 10/29/16 at 08: 00 Phenylephrine HCl 80 mg/Dextrose 250 ml @ 0 mls/hr TITRATE IV Last administered on 11/01/16 06:54; Admin Dose 56.25 MLS/HR; Start 10/29/16 at 08: 00 Sodium Bicarbonate/ Dextrose (Na Bicarb/D5W) 1,000 ml @ 80 mls/hr [id number] IV Last administered on 10/31/16 21:37; Admin Dose 80 MLS/HR; Start 10/29/16 at 12 :30 Amiodarone HCl (Cordarone) 200 mg DAILY NGT ; Start 10/31/16 at 09:00 Ondansetron HCl 4 mg 4 mg Q6H PRN IV NAUSEA AND/OR VOMITING; Start 10/31/16 at 04:30 Vasopressin 60 unit/Dextrose 60 ml @ 1.2 mls/hr Q12H IV Last administered on 18:55; Admin Dose 2.4 MLS/HR; Start 10/31/16 at 05:30 Colistimethate Sodium/Sodium Chloride (Coly-Mycin/NS) 100 ml @ 200 mls/hr Q36H IVPB Last administered on 10/31/16 20:23; Admin Dose 200 MLS/HR; Start at 20:00 Morphine Sulfate (morphine) 2 mg Q2H PRN IV PAIN Last administered on 23:00; Admin Dose 2 MG; Start 10/31/16 at 12:00 MAIN SALTER Nov 01, 2016 09:23
[2016-11-01] MEDS: AMIODARONE 200 MG TAB NGT SCH (11:00)
--- NOTE | 2016-11-01 11:08 | EN ---
Date/Time of Note Date/Time of Note DATE: 11/01/16 TIME: 11:06 Event Note Medicine Medicine Event Note Note. Patient with no recordable Blood Pressure, pulse, EKG flat line. Pronounced at 10:05 am, 11-01-2016. family notified. MAIN SALTER Nov 01, 2016 11:08
--- NOTE | 2016-11-01 11:11 | CONS ---
Date/Time of Note Date/Time of Note DATE: 11/01/16 TIME: 11:10 Assessment/Plan Assessment/Plan Additional Assessment/Plan 1. Non Oliguric Acute kidney injury on chronic kidney disease. due to ATN from septic shock - now progressed to Anuric 2. septic shock on 3 pressors 3. severe metabolic acidosis on bicarboante drip 4. acute on chronic respiratory failure, status post tracheostomy, on ventilator. 6. History of G-tube. 7. Poor mental status due to the previous cerebrovascular accident. 8. History of dementia. 9. History of hypertension. PLAN: Pt was seen in AM, he was very bradycardic and hypotensive, now at bedside, counselld about it Consultation Date/Type/Reason Admit Date/Time Sep 24, 2016 at 03:19 Initial Consult Date 09/24/16 Type of Consultation: NEPHROLOGY Referring Provider: FELIX BLAKE DO 24 HR Interval Summary Free Text/Dictation pt was seen in AM, he was hypotension, now Exam/Review of Systems Vital Signs Vitals Vital Signs Date Time Temp Pulse Resp B/P Pulse Ox O2 Delivery O2 Flow Rate FiO2 11/01/16 10:00 0 20 11/01/16 09:15 65/43 11/01/16 09:14 60 11/01/16 09:00 74 11/01/16 08:30 Mechanical Ventilator 11/01/16 08:00 95.2 Intake and Output 10/31/16 10/31/16 11/01/16 15:00 23:00 07:00 Intake Total 1467.83 ml 1504.98 ml 1238.7 ml Output Total 50 ml 0 ml 75 ml Balance 1417.83 ml 1504.98 ml 1163.7 ml Results Result Diagram: 10/31/16 0400 10/31/16 0400 Medications Medications Current Medications Acetaminophen (Tylenol Supp) 650 mg Q4H PRN [place] PAIN LEVEL 1-3 OR FEVER; Start 09/24/16 at 03:00 Eye Lubricant (Artificial Tears Oph) 1 drop TID BOTH EYES Last administered on 11/01/16 08:34; Admin Dose 1 DROP; Start 09/24/16 at 09:00 Sodium Hypochlorite (Dakin'S (1/4 Strength)) 1 applic BID IRR Last administered on 11/01/16 08:30; Admin Dose 1 APPLIC; Start 09/24/16 at 21:00 Collagenase (Santyl) 1 applic DAILY TOP Last administered on 11/01/16 08:30; Admin Dose 1 APPLIC; Start 09/24/16 at 20:30 Miscellaneous Information 1 ea NOTE XX ; Start 09/24/16 at 21:00 Glucose (Glutose) 15 gm Q15M PRN PO DECREASED GLUCOSE; Start 09/24/16 at 21:00 Glucose (Glutose) 22.5 gm Q15M PRN PO DECREASED GLUCOSE; Start 09/24/16 at 21: 00 Dextrose (D50w Syringe) 25 ml Q15M PRN IV DECREASED GLUCOSE; Start 09/24/16 at 21:00 Dextrose (D50w Syringe) 50 ml Q15M PRN IV DECREASED GLUCOSE; Start 09/24/16 at 21:00 Glucagon (Glucagen) 1 mg Q15M PRN IM DECREASED GLUCOSE; Start 09/24/16 at 21:00 Glucose (Glutose) 15 gm Q15M PRN BUCCAL DECREASED GLUCOSE; Start 09/24/16 at 21 :00 Vancomycin HCl (Vancomycin Oral Syringe) 250 mg Q6 PO Last administered on 17:15; Admin Dose 250 MG; Start 09/26/16 at 18:00; Status Future Hold Lactobacillus Acidoph/Bulgaricus (Floranex) 1 tab TID PO Last administered on 13:22; Admin Dose 1 TAB; Start 09/26/16 at 21:00; Status Future Hold Atorvastatin Calcium (Lipitor) 20 mg QHS GTB Last administered on 10/05/16 21: 42; Admin Dose 20 MG; Start 09/28/16 at 21:00; Status Future Hold Finasteride (Proscar) 5 mg DAILY GTB Last administered on 10/06/16 09:12; Admin Dose 5 MG; Start 09/29/16 at 09:00; Status Future Hold Multivitamins Therapeutic (Theragran) 1 tab DAILY GTB Last administered on 09:12; Admin Dose 1 TAB; Start 09/29/16 at 09:00; Status Future Hold Zinc Sulfate (Zinc Sulfate) 220 mg DAILY NGT Last administered on 10/06/16 09: 13; Admin Dose 220 MG; Start 09/29/16 at 09:00; Status Future Hold Ondansetron HCl (Zofran Inj) 4 mg Q6H PRN IV NAUSEA AND/OR VOMITING Last administered on 10/31/16 04:17; Admin Dose 4 MG; Start 09/29/16 at 07:30 Acetaminophen 650 mg 650 mg Q6H PRN GTB PAIN AND OR ELEVATED TEMP Last administered on 10/25/16 20:50; Admin Dose 650 MG; Start 10/02/16 at 08:00 Metronidazole (Flagyl 500 Mg (Pmx)) 100 ml @ 100 mls/hr Q8 IVPB Last administered on 11/01/16 05:59; Admin Dose 100 MLS/HR; Start 10/02/16 at 14:00 Midodrine 10 mg 10 mg TID@ PO Last administered on 10/06/16 17:15; Admin Dose 10 MG; Start 10/06/16 at 01:00; Status Future Hold Linezolid (Zyvox 600mg/D5W (Pmx)) 300 ml @ 300 mls/hr Q12 IVPB Last administered on 11/01/16 08:30; Admin Dose 300 MLS/HR; Start 10/06/16 at 21:00 Levothyroxine Sodium (Synthroid Iv) 12.5 mcg DAILY@06 IV Last administered on 05:59; Admin Dose 12.5 MCG; Start 10/07/16 at 06:00 Metoclopramide HCl (Reglan) 5 mg Q8 IV Last administered on 11/01/16 05:59; Admin Dose 5 MG; Start 10/06/16 at 22:00 Lansoprazole (Prevacid) 30 mg BID@06,18 GTB Last administered on 10/30/16 18: 19; Admin Dose 30 MG; Start 10/21/16 at 18:00 IV Flush 10 ml 10 ml PRN PRN IV IV PROTOCOL; Start 10/22/16 at 14:30 Norepinephrine 32 mg/Dextrose 250 ml @ 0.46 mls/hr TITRATE IV Last administered on 10/31/16 18:57; Admin Dose 14.06 MLS/HR; Start 10/29/16 at 08: 00 Phenylephrine HCl 80 mg/Dextrose 250 ml @ 0 mls/hr TITRATE IV Last administered on 11/01/16 06:54; Admin Dose 56.25 MLS/HR; Start 10/29/16 at 08: 00 Sodium Bicarbonate/ Dextrose (Na Bicarb/D5W) 1,000 ml @ 80 mls/hr [id number] IV Last administered on 10/31/16 21:37; Admin Dose 80 MLS/HR; Start 10/29/16 at 12 :30 Amiodarone HCl (Cordarone) 200 mg DAILY NGT ; Start 10/31/16 at 09:00 Ondansetron HCl 4 mg 4 mg Q6H PRN IV NAUSEA AND/OR VOMITING; Start 10/31/16 at 04:30 Vasopressin 60 unit/Dextrose 60 ml @ 1.2 mls/hr Q12H IV Last administered on 18:55; Admin Dose 2.4 MLS/HR; Start 10/31/16 at 05:30 Colistimethate Sodium/Sodium Chloride (Coly-Mycin/NS) 100 ml @ 200 mls/hr Q36H IVPB Last administered on 10/31/16 20:23; Admin Dose 200 MLS/HR; Start at 20:00 Morphine Sulfate (morphine) 2 mg Q2H PRN IV PAIN Last administered on 23:00; Admin Dose 2 MG; Start 10/31/16 at 12:00 MAGGIE DINERO MD Nov 01, 2016 11:11
--- NOTE | 2016-11-01 11:17 | PN ---
DATE: 11/01/2016 PALLIATIVE CARE PROGRESS NOTE The patient has at 10:05. is at the bedside. I have had an extensive conversation with h er as has Dr. Cruz yesterday through an translator interpreter. Today, we had a conversation once again smooth florez an translator interpreter. I explained to her that we have resources to help her out including referring he r to different mortuaries. We made it very clear he did not suffer at the end of his life. Partici pants in that conversation, including myself and case management. The patient's understanding at t his time, especially since he was made a DO NOT RESUSCITATE, is clear and she did have hopes that he would not suffering. Her fears or concerns are over her strength and friends. She never allow ed us to speak to family members. Communication preference is Cymro only. DISCUSSION: Long conversation with through the translator interpreter. She has been given resources at t his time to contact mortuaries. RECOMMENDATIONS: If possible, referral to grieving counseling groups. In general, I believe her lo ng-term psychosocial, psychological ability to cope with his is very poor. She did not allow us to extubate him after he was made a DO NOT RESUSCITATE, and she will need someone to help her gri alonzo. There were no ethical issues, surrogate issues and the code was changed when he was here, last time admitted to the intensive care unit. Dictated By: SITA OCONNOR MD, LP/ELIZABETH Conf#: [id number] DID#: [id number]
--- NOTE | 2016-11-01 14:49 | DS ---
DATE OF ADMISSION: 09/24/2016 DATE OF DISCHARGE: 11/01/2016 SUMMARY DATE OF : 11/01/2016. DIAGNOSES: Cardiopulmonary arrest secondary to septic shock from multiple decubitus ulcers, wi th secondary diagnoses of history of stroke and debility, as well as atrial fibrillation with rapid ventricular rate. HOSPITAL COURSE: The patient is a 81-year-old male with a history of stroke in the past with debili ty. The patient is chronically trached and PEG'd. The patient did have a prolonged hospitalization . The patient was admitted with sepsis. Blood culture did show E. coli. Urine culture showed E. c pooja as well and the patient had a urinary tract infection with sepsis. The patient also had E. coli in his trachea, Escherichia coli in his left buttock, and a sacral wound that showed Klebsiella and VRE, as well as MRSA. The patient was seen by ID, as well as pulmonology and surgery. The patient was in the ICU for many days, condition beginning to worsen, and was respiratory dependent. The pa tient was put on multiple pressors, but continued to decline. He had multiple wounds secondary to h is debility. The patient was a DNR. After a discussion with the patient's , the patient was se en by palliative care as well. Eventually the patient succumbed to his underlying disorders of sept ic shock, respiratory failure, his history of coronary artery disease and atrial fibrillation. The patient was pronounced by the assistant professor of psychology on 11/01/2016. Dictated By: KEVYN GARNETT MD BS/NTS Conf#: [id number] DID#: [id number]
== END 2016-11-01 10:05 | disposition expired | DRG 870 ==
LOC: E/R 23:10 → ICU 09-24 03:19 → TEL 10-01 10:38 → ICU 10-06 02:30 → TEL 10-15 22:10 → ICU 10-26 05:41
PROVIDERS: ADMIT Family Medicine; ATTEND Family Medicine
PROC: 05H633Z Insertion of Infusion Device into Left Subclavian Vein, Percutaneous Approach (ICD-10-PCS; principal; 2016-09-24)
PROC: 5A1955Z Respiratory Ventilation, Greater than 96 Consecutive Hours (ICD-10-PCS; 2016-09-24)
PROC: 30243N1 Transfusion of Nonautologous Red Blood Cells into Central Vein, Percutaneous Approach (ICD-10-PCS; 2016-09-25)
PROC: 02HV33Z Insertion of Infusion Device into Superior Vena Cava, Percutaneous Approach (ICD-10-PCS; 2016-10-22)
DX: A41.51 Sepsis due to Escherichia coli [E. coli] (principal); N17.0 Acute kidney failure with tubular necrosis; J18.9 Pneumonia, unspecified organism; R65.21 Severe sepsis with septic shock; G93.41 Metabolic encephalopathy; L89.154 Pressure ulcer of sacral region, stage 4; Z99.11 Dependence on respirator [ventilator] status; E87.0 Hyperosmolality and hypernatremia; J96.11 Chronic respiratory failure with hypoxia; R53.2 Functional quadriplegia; K56.7 Ileus, unspecified; N39.0 Urinary tract infection, site not specified; K92.2 Gastrointestinal hemorrhage, unspecified; M86.8X8 Other osteomyelitis, other site; B37.49 Other urogenital candidiasis; E46 Unspecified protein-calorie malnutrition; E86.0 Dehydration; I12.9 Hypertensive chronic kidney disease with stage 1 through stage 4 chronic kidney disease, or unspecified chronic kidney disease; N18.9 Chronic kidney disease, unspecified; I25.2 Old myocardial infarction; I25.10 Atherosclerotic heart disease of native coronary artery without angina pectoris; I69.319 Unspecified symptoms and signs involving cognitive functions following cerebral infarction; E87.6 Hypokalemia; D50.9 Iron deficiency anemia, unspecified; B96.20 Unspecified Escherichia coli [E. coli] as the cause of diseases classified elsewhere; B96.89 Other specified bacterial agents as the cause of diseases classified elsewhere; R13.19 Other dysphagia; N50.89 Other specified disorders of the male genital organs; E03.9 Hypothyroidism, unspecified; B96.1 Klebsiella pneumoniae [K. pneumoniae] as the cause of diseases classified elsewhere; Z93.0 Tracheostomy status; B95.61 Methicillin susceptible Staphylococcus aureus infection as the cause of diseases classified elsewhere; M24.50 Contracture, unspecified joint; E83.51 Hypocalcemia; I48.0 Paroxysmal atrial fibrillation; E83.42 Hypomagnesemia; B95.2 Enterococcus as the cause of diseases classified elsewhere; F01.50 Vascular dementia, unspecified severity, without behavioral disturbance, psychotic disturbance, mood disturbance, and anxiety; I69.991 Dysphagia following unspecified cerebrovascular disease; Z22.322 Carrier or suspected carrier of Methicillin resistant Staphylococcus aureus; Z66 Do not resuscitate; Z93.1 Gastrostomy status; Z16.21 Resistance to vancomycin; Z68.23 Body mass index [BMI] 23.0-23.9, adult
CPT/HCPCS: 36415; 36430; 36569; 36600; 71010; 74000; 74176; 76775; 76937; 80048; 80053; 80069; 80076; 80202; 81001; 81003; 82270; 82306; 82533; 82550; 82553; 82570; 82607; 82728; 82746; 82803; 82962; 83036; 83540; 83605; 83615; 83735; 83880; 84100; 84134; 84300; 84436; 84439; 84443; 84479; 84481; 84484; 84560; 85014; 85018; 85025; 85045; 85610; 85651; 85730; 86850; 86900; 86901; 86920; 87040; 87070; 87075; 87081; 87086; 89190; 89220; 90686; 93005; 93306; 93970; 94002; 94003; 94640; 94770; 96365; 96366; 96367; 96375; J1940; C9113; J0131; J1200; J1450; J1644; J1815; J2060; J2185; J2270; J2405; J2543; J2765; J3370; J3475; J3480; J7030; J7040; J7042; J7060; J7070; P9016; P9045; P9047